=== PATIENT | male | born 1950 | race Caucasian/White ===

== ENCOUNTER 2018-07-06 22:32 | Inpatient (IN) | payer MEDICARE, MEDICAID ==
[~2018-07-06] VITALS: Ht 170.2 cm; Wt 61.3 kg
--- OUTSIDE RECORDS SUMMARY | 2018-07-06 22:37 | XMS REPORT ---
Author Author RONDA STAHL Organization [facility] Address [address] [place] [address] Care Team Providers Care Toll Mechanic Name Role Phone RONDA STAHL Unavailable PROBLEMS Type Condition ICD9-CM Code [id number] Code Onset Dates Condition Status SNOMED Code Problem Hypertriglyceridemia E78.1 Active 379421941 Problem COPD exacerbation J44.1 Active 105192986 Problem Diabetes E11.9 Active 01857235 Problem Diabetes type 2, controlled E11.9 Active 14976928 Problem Other chronic pain G89.29 Active 82807761 Problem Panlobular emphysema J43.1 Active 6605993 Problem Uncontrolled type 2 diabetes mellitus with hyperglycemia E11.65 Active 419469341 Problem Type 2 diabetes mellitus without complication, without long-term current use of insulin E11.9 Active 154787103 Problem PTSD (post-traumatic stress disorder) F43.10 Active 29035533 Problem Gastroesophageal reflux disease with esophagitis K21.0 Active 411469129 ALLERGIES No Known Allergies ENCOUNTERS Encounter Location Date Diagnosis [facility] [id number] [place] [address] 23040- 9135 Jul, [facility] [id number] [place] [address] 77968- 3302 Jul, [facility] [id number] [place] [address] 17323- 2096 Jun, [facility] [id number] [place] [address] 64610- 2395 Jun, Uncontrolled type 2 diabetes mellitus without complication, without long-term current use of insulin E11.65 [facility] [id number] [place] [address] 57634- 1536 Jun, PTSD (post-traumatic stress disorder) F43.10 ; Low back pain M54.5 ; Other chronic pain G89.29 ; Gastroesophageal reflux disease with esophagitis K21.0 and Panlobular emphysema J43.1 [place] [address] [address]- 5414 Jun, [place] [address] [place] 20007[address]- 0206 Jun, Other chest pain R07.89 ; Tachycardia R00.0 and Murmur, cardiac R01.1 [place] [address] 80669- 7410 May, Other chest pain R07.89 ; Tachycardia R00.0 and Murmur, cardiac R01.1 [facility]ALK [facility] [place] [address] 54705 -6869 May, [place] [address] 41436- 5797 May, Uncontrolled type 2 diabetes mellitus with hyperglycemia E11.65 and Oral candidiasis B37.0 [place] [address] 90088- 6991 May, COPD exacerbation J44.1 [place] [address] 99303- 0995 May, COPD exacerbation J44.1 [facility]ALK IN [place] [address] 77638 -0219 May, COPD exacerbation J44.1 and Type 2 diabetes mellitus without complication, without long-term current use of insulin E11.9 [facility] [place] [address] 72761 -1742 May, Difficulty breathing R06.89 and Acute bronchitis, unspecified organism J20.9 [place] [address] 49393- 0976 Apr, Uncontrolled type 2 diabetes mellitus without complication, without long-term current use of insulin E11.65 [place] [address] 64306- 4962 Feb, [facility] [address] [address] 9012 Feb, [facility] [address] [address]- 3677 Feb, [facility] [address] [address]- 3135 Jan, [facility] [id number] [place] [address] 83124- 2697 Oct, [facility] [id number] [place] [address] 660373- 4577 Jul, Diabetes type 2, controlled E11.9 [facility] [address] [address]- 8380 Jun, [facility] [id number] [place] [address] 27042- 6044 May, [facility] [address] [address]- 8106 May, Diabetes type 2, controlled E11.9 and Hypertriglyceridemia E78.1 [facility] [address] [address]- 8701 May, [facility] [address] [address]- 8950 Apr, Hypertriglyceridemia 272.1 ; Influenza vaccine administered V04.81 and Diabetes 250.00 [facility] [id number] [address]- 5613 Mar, DM type 2 (diabetes mellitus, type 2) 250.00 ; Essential hypertension, benign 401.1 and Mood disorder 296.90 [facility] [address] 0887 Jan, [facility] [address] 2980 Nov, [facility] [place] [facility] [address] [id number] [place] [address]- 4506 Nov, [facility] [place] [facility] [address] [id number] [place] [address]- 3816 Sep, 2014 [facility] [place] [facility] [address] [id number] [place] [address]- 9832 Sep, 2014 [facility] [place] [facility] [address] [id number] [place] [address]- 4468 Sep, 2014 [facility] [place] [facility] [address] [id number] [place] [address]- 4662 Sep, 2014 [facility] [place] [facility] [address] [id number] [place] [address]- 6660 May, [facility] [place] [facility] [address] [id number] [place] [address]- 2927 May, [facility] [place] [facility] [address] [id number] [place] [address]- 6662 Apr, [facility] [place] [facility] [address] [id number] [place] [address]- 3230 Apr, [facility] [place] [facility] [address] [id number] [place] [address]- 0096 Mar, [facility] [place] [facility] [address] [id number] [place] [address]- 6912 Mar, [facility] [place] [facility] [address] [id number] [place] [address]- 8017 Mar, [facility] [place] [facility] [address] [id number] [place] [address]- 1854 Mar, [facility] [place] [facility] [address] [id number] [place] [address]- 5162 Jan, [facility] [place] [facility] [address] [id number] [place] [address]- 6599 Jan, [facility] [place] [facility] [address] [id number] [address]- 3702 Jan, [facility] [place] [facility] [address] [id number] [place] [address]- 3781 Jan, [facility] [place] [facility] [address] [id number] [place] [address] Jan, [facility] [place] [facility] [address] [id number] [place] [address]- 9155 Jan, [facility] [place] [facility] [address] [id number] [place] [address]- 2637 Oct, [facility] [place] [facility] [address] [id number] [place] [address]- 4244 Oct, [facility] [place] [facility] [address] [id number] [place] [address]- 6285 Sep, [facility] [place] [facility] [address] [id number] [place] [address]- 6171 Sep, [facility] [place] [facility] [address] [id number] [place] [address]- 5261 Jun, [facility] [place] [facility] [address] [id number] [place] [address]- 2657 Jun, [facility] [place] [facility] [address] [id number] [place] [address]- 0633 Mar, [facility] [place] [facility] [address] [id number] [place] [address]- 6503 Feb, [facility] [place] [facility] [address] [id number] [place] [address]- 9385 Feb, [facility] [place] [facility] [address] [id number] [place] [address]- 8736 Nov, [facility] [place] [facility] [address] [id number] [place] [address]- 2774 Aug, [facility] [place] [facility] [address] [id number] [place] [address]- 1582 Aug, [facility] [place] [facility] [address] [id number] [place] [address] 2546 Jul, [facility] [place] [facility] [address] [id number] [place] [address]- 0483 Jul, [facility] [place] [facility] [address] [id number] [place] [address]- 8196 May, [facility] [place] [facility] [address] [id number] [place] [address]- 2743 May, [facility] [place] [facility] [address] [id number] [place] [address]- 8633 May, [facility] [place] [facility] [address] [id number] [place] [address]- 5465 May, [facility] [place] [facility] [address] [id number] [place] [address]- 0084 Apr, [facility] [place] [facility] [address] [id number] [place] [address]- 7856 Feb, [facility] [place] [facility] [address] [id number] [place] [address]- 7213 Feb, [facility] [place] [facility] [address] [id number] [place] [address]- 0279 Jan, [facility] [place] [facility] [address] [facility] [id number] [place] [address]- 4396 Jan, [facility] [place] [facility] [address] [id number] [place] [address]- 0210 Nov, [facility] [place] [facility] [address] [id number] [place] [address]- 4168 Oct, [facility] [place] [facility] [address] [id number] [place] [address]- 6614 Oct, [facility] [place] [facility] [address] [id number] [place] [address]- 3866 Jul, [facility] [place] [facility] [address] [id number] [place] [address]- 6714 May, [facility] [address] [facility] [id number] [address]- 1444 Nov, [facility] [address] [facility] [id number] [address]- 3741 Jun, [facility] [address] [facility] [id number], [place] [address]- 8903 December, [facility] [address] [facility] [id number] [address]- 2141 Jul, IMMUNIZATIONS No Known Immunizations SOCIAL HISTORY Never Assessed REASON FOR VISIT Back pain f/u Pt in for follow up --EVGENY Lemus PLAN OF CARE Activity Details Follow Up 4 Weeks Reason:copd VITAL SIGNS Height 68 in 2018-06-30 Weight 151.0 lbs 2018-06-30 Temperature 97.7 degrees Fahrenheit 2018-06-30 Heart Rate 124 bpm 2018-06-30 Respiratory Rate 20 2018-06-30 Oximetry 97 % 2018-06-30 BMI 22.96 kg/m2 2018-06-30 Blood pressure systolic 156 mmHg 2018-06-30 Blood pressure diastolic 82 mmHg 2018-06-30 MEDICATIONS Medication Instructions Dosage Frequency Start Date End Date Duration Status Caffeine 200 MG Active Incruse Ellipta 62.5 MCG/INH Inhalation Once a day 1 puff 24h Active Aspirin 81 MG Orally Once a day 1 tablet 24h 30 day(s) Active Xanax 0.5 MG Orally Twice a day 1 tablet 12h Jun, Active BD Pen Needle Ultrafine 29G X 12.7MM subcutaneously once daily Inject 24h May, 30 days Active Symbicort 160-4.5 MCG/ACT Inhalation Twice a day 2 puffs 12h May, Nov, 30 days Active Benadryl Allergy 25 MG Orally every 6 hrs 1 tablet as needed 6h Active Oxygen 2 L/NC as directed Jun, Active PredniSONE 20 mg Orally Once a day 2 tablet 24h May, Jun, 30 day(s) Active Levemir FlexTouch 100 UNIT/ML Subcutaneous once daily Inject 20 units 24h May, 30 days Active Paroxetine HCl 20 MG Orally Once a day 1 tablet in the morning 24h Jun, 30 day(s) Active Nicoderm CQ 7 MG/24HR Transdermal Once a day 1 patch to skin 24h Jun, Oct, 30 day(s) Active Spiriva Respimat 2.5 MCG/ACT Inhalation Once a day 2 puffs 24h May, Nov, 30 days Active RESULTS No Results PROCEDURES No Known procedures INSTRUCTIONS MEDICATIONS ADMINISTERED No Known Medications MEDICAL (GENERAL) HISTORY Type Description Date Medical History hypertension Medical History diabetes type 2 Medical History PTSD Medical History IBS Medical History Back pain Surgical History No Surgical history information Hospitalization History rectal and vomitting blood
--- OUTSIDE RECORDS SUMMARY | 2018-07-06 22:37 | XMS REPORT ---
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 Name Role Phone RONDA STAHL Unavailable PROBLEMS Type Condition ICD9-CM Code [id number] Code Onset Dates Condition Status SNOMED Code Problem Hypertriglyceridemia E78.1 Active 019455048 Problem COPD exacerbation J44.1 Active 115679995 Problem Diabetes E11.9 Active 86869556 Problem Diabetes type 2, controlled E11.9 Active 19797905 Problem Other chronic pain G89.29 Active 23930127 Problem Panlobular emphysema J43.1 Active 0245736 Problem Uncontrolled type 2 diabetes mellitus with hyperglycemia E11.65 Active 617240374 Problem Type 2 diabetes mellitus without complication, without long-term current use of insulin E11.9 Active 494851247 Problem PTSD (post-traumatic stress disorder) F43.10 Active 22358981 Problem Gastroesophageal reflux disease with esophagitis K21.0 Active 121784170 ALLERGIES No Information ENCOUNTERS Encounter Location Date Diagnosis [place] [id number] [place] [address] 63234- 4859 Jul, [place] [id number] [place] [address] 09419- 8611 Jul, [place] [address] [address]37- 1817 Jun, Uncontrolled type 2 diabetes mellitus without complication, without long-term current use of insulin E11.65 [place] [address] 40741- 5319 Jun, PTSD (post-traumatic stress disorder) F43.10 ; Low back pain M54.5 ; Other chronic pain G89.29 ; Gastroesophageal reflux disease with esophagitis K21.0 and Panlobular emphysema J43.1 [place] [id number] [place] [address] 97869- 6679 Jun, [facility] [place] [address] [address]19- 1204 Jun, Other chest pain R07.89 ; Tachycardia R00.0 and Murmur, cardiac R01.1 [facility] [place] [id number] [place] [address] 70025- 0040 May, Other chest pain R07.89 ; Tachycardia R00.0 and Murmur, cardiac R01.1 [facility]ALK IN [facility] [id number] [place] [address] 31838 -5905 May, [place] [address] 51520- 6461 May, Uncontrolled type 2 diabetes mellitus with hyperglycemia E11.65 and Oral candidiasis B37.0 [place] [address] 08152- 3882 May, COPD exacerbation J44.1 [place] [id number] [place] [address] 88520- 4766 May, COPD exacerbation J44.1 [facility] IN [facility] [id number] [place] [address] 81717 -1566 May, COPD exacerbation J44.1 and Type 2 diabetes mellitus without complication, without long-term current use of insulin E11.9 [facility] IN [facility] [id number] [place] [address] 82841 -3687 May, Difficulty breathing R06.89 and Acute bronchitis, unspecified organism J20.9 [place] [id number] [place] [address] 86897- 6225 Apr, Uncontrolled type 2 diabetes mellitus without complication, without long-term current use of insulin E11.65 [facility] [place] [id number] [place] [address] 35346- 5660 Feb, [facility] [address] 07501- 8005 Feb, [facility] [address], [place] [address]- 8971 Feb, [facility] [address], [place] [address]- 1035 Jan, [facility] [address], [place] [address]- 2291 Oct, [facility] [place] [id number] [place] [address] 03544- 1476 Jul, Diabetes type 2, controlled E11.9 [facility] [place] [id number] [place] [address] 21062- 7087 Jun, [facility] [id number] [place] [address] 78079- 3914 May, [facility] [place] [id number] [place] [address] 830858- 2969 May, Diabetes type 2, controlled E11.9 and Hypertriglyceridemia E78.1 [facility] [address], [place] [address]- 6892 May, [facility] [id number] [place] [address] 16377- 9596 Apr, Hypertriglyceridemia 272.1 ; Influenza vaccine administered V04.81 and Diabetes 250.00 [facility] [address], [place] [address]- 1154 Mar, DM type 2 (diabetes mellitus, type 2) 250.00 ; Essential hypertension, benign 401.1 and Mood disorder 296.90 [facility] [address] 8366 Jan, [facility] [place] [id number] [place] [address] 658532- 7282 Nov, [facility] [address] 7674 Nov, [facility] [place] [facility] [address] [id number] [place] [address]- 7234 Sep, 2014 [facility] [place] [facility] [address] [id number] [place] [address]- 7606 Sep, 2014 [facility] [place] [facility] [address] [id number] [place] [address]- 0612 Sep, 2014 [facility] [place] [facility] [address] [id number] [place] [address]- 6944 Sep, 2014 [facility] [place] [facility] [address] [id number] [place] [address]- 0413 May, [facility] [place] [facility] [address] [id number] [place] [address]- 6159 May, [facility] [place] [facility] [address] [id number] [place] [address]- 7753 Apr, [facility] [place] [facility] [address] [id number] [place] [address]- 1428 Apr, [facility] [place] [facility] [address] [id number] [place] [address]- 4312 Mar, [facility] [place] [facility] [address] [id number] [place] [address]- 3259 Mar, [facility] [place] [facility] [address] [id number] [place] [address]- 8666 Mar, [facility] [place] [facility] [address] [id number] [place] [address]- 6929 Mar, [facility] [place] [facility] [address] [id number] [place] [address]- 3005 Jan, [facility] [place] [facility] [address] [id number] [place] [address]- 3806 Jan, [facility] [place] [facility] [address] [id number] [place] [address]- 3613 Jan, [facility] [place] [facility] [address] [id number] [place] [address]- 9632 Jan, [facility] [place] [facility] [address] [id number] [place] [address]- 6762 Jan, [facility] [place] [facility] [address] [id number] [place] [address]- 3556 Jan, [facility] [place] [facility] [address] [id number] [place] [address]- 0729 Oct, [facility] [place] [facility] [address] [id number] [place] [address]- 8490 Oct, [facility] [place] [facility] [address] [id number] [place] [address]- 5918 Sep, [facility] [place] [facility] [address] [id number] [place] [address]- 6327 Sep, [facility] [place] [facility] [address] [id number] [place] [address]- 5146 Jun, [facility] [place] [facility] [address] [id number] [place] [address]- 6309 Jun, [facility] [place] [facility] [address] [id number] [place] [address]- 5938 Mar, [facility] [place] [facility] [address] [id number] [place] [address]- 4869 Feb, [facility] [place] [facility] [address] [id number] [place] [address]- 8980 Feb, [facility] [place] [facility] [address] [id number] [place] [address]- 9543 Nov, [facility] [place] [facility] [address] [id number] [place] [address]- 2892 Aug, [facility] [place] [facility] [address] [id number] [place] [address]- 8944 Aug, [facility] [place] [facility] [address] [id number] [place] [address]- 8479 Jul, [facility] [place] [facility] [address] [id number] [place] [address]- 2546 Jul, [facility] [place] [facility] [address] [id number] [place] [address]- 3467 May, [facility] [place] [facility] [address] [id number] [place] [address]- 2546 May, [facility] [place] [facility] [address] [id number] [place] [address] 2546 May, [facility] [place] [facility] [address] [id number] [place] [address]- 2546 May, [facility] [place] [facility] [address] [id number] [place] [address]- 3416 Apr, [facility] [place] [facility] [address] [id number] [place] [address]- 2546 Feb, [facility] [place] [facility] [address] [id number] [place] [address]- 6521 Feb, [facility] [place] [facility] [address] [id number] [place] [address]- 5609 Jan, [facility] [place] [facility] [address] [id number] [place] [address]- 4206 Jan, [facility] [place] [facility] [address] [facility] [id number] [place] [address]- 2313 Nov, [facility] [place] [facility] [address] [id number] [place] [address]- 2086 Oct, [facility] [place] [facility] [address] [id number] [place] [address]- 2541 Oct, [facility] [place] [facility] [address] [id number] [place] [address]- 2546 Jul, [facility] [place] [facility] [address] [id number] [place] [address] May, [facility] [place] [facility] [address] [id number] [place] [address] Nov, [facility] [place] [address] [facility] [id number] [place] [address] Jun, [facility] [place] [address] [facility] [id number], [place] [address] December, [facility] [place] [address] [facility] [id number], [place] [address] Jul, IMMUNIZATIONS No Known Immunizations SOCIAL HISTORY Never Assessed REASON FOR VISIT medications PLAN OF CARE VITAL SIGNS MEDICATIONS Medication Instructions Dosage Frequency Start Date End Date Duration Status Omeprazole 40 mg 1 capsule 24h Active Chlorzoxazone 500 mg Orally 2 times a day 1 tablet 12h Jun,Oct 30 day(s) Active RESULTS No Results PROCEDURES No Known procedures INSTRUCTIONS MEDICATIONS ADMINISTERED No Known Medications MEDICAL (GENERAL) HISTORY Type Description Date Medical History hypertension Medical History diabetes type 2 Medical History PTSD Medical History IBS Medical History Back pain Surgical History No Surgical history information Hospitalization History rectal and vomitting blood
--- OUTSIDE RECORDS SUMMARY | 2018-07-06 22:37 | XMS REPORT ---
Author Author RONDA STAHL Organization [facility] Address [address] [place] [address] Care Team Providers Care Distributor Cleaner Name Role Phone RONDA STAHL Unavailable PROBLEMS Type Condition ICD9-CM Code DRW76-SS Code Onset Dates Condition Status SNOMED Code Problem Hypertriglyceridemia E78.1 Active 985514118 Problem COPD exacerbation J44.1 Active 500100052 Problem Diabetes E11.9 Active 25439258 Problem Diabetes type 2, controlled E11.9 Active 42091871 Problem Other chronic pain G89.29 Active 15551699 Problem Panlobular emphysema J43.1 Active 3642639 Problem Uncontrolled type 2 diabetes mellitus with hyperglycemia E11.65 Active 347492579 Problem Type 2 diabetes mellitus without complication, without long-term current use of insulin E11.9 Active 338317003 Problem PTSD (post-traumatic stress disorder) F43.10 Active 80430682 Problem Gastroesophageal reflux disease with esophagitis K21.0 Active 365491654 ALLERGIES No Information ENCOUNTERS Encounter Location Date Diagnosis [place] [id number] [place] [address] 19278- 5858 Jul, [place] [id number] [place] [address] 08226- 5832 Jul, [place] [address] [address]18- 5549 Jun, Uncontrolled type 2 diabetes mellitus without complication, without long-term current use of insulin E11.65 [place] [address] 46911- 4380 Jun, PTSD (post-traumatic stress disorder) F43.10 ; Low back pain M54.5 ; Other chronic pain G89.29 ; Gastroesophageal reflux disease with esophagitis K21.0 and Panlobular emphysema J43.1 [place] [id number] [place] [address] 80305- 1883 Jun, [facility] [address] [address]- 5320 Jun, Other chest pain R07.89 ; Tachycardia R00.0 and Murmur, cardiac R01.1 [facility] [id number] [place] [address] 44628- 1322 May, Other chest pain R07.89 ; Tachycardia R00.0 and Murmur, cardiac R01.1 [facility] [id number] [place] [address] 02128 -0704 May, [place] [address] 18711- 9102 May, Uncontrolled type 2 diabetes mellitus with hyperglycemia E11.65 and Oral candidiasis B37.0 [place] [address] 70379- 4731 May, COPD exacerbation J44.1 [place] [id number] [place] [address] 37116- 1776 May, COPD exacerbation J44.1 [facility] [id number] [place] [address] 20654 -7830 May, COPD exacerbation J44.1 and Type 2 diabetes mellitus without complication, without long-term current use of insulin E11.9 [facility] [id number] [place] [address] 77366 -4825 May, Difficulty breathing R06.89 and Acute bronchitis, unspecified organism J20.9 [place] [id number] [place] [address] 25314- 7200 Apr, Uncontrolled type 2 diabetes mellitus without complication, without long-term current use of insulin E11.65 [facility] [id number] [place] [address] 39079- 9115 Feb, [facility] [address] 02687- 3614 Feb, [facility] [address] [address] 4188 Feb, [facility] [address] [address]- 8186 Jan, [facility] [address] [address]- 4503 Oct, [facility] [id number] [place] [address] 88730- 4219 Jul, Diabetes type 2, controlled E11.9 [facility] [id number] [place] [address] 99877- 5413 Jun, [facility] [id number] [place] [address] 01342- 0452 May, [facility] [id number] [place] [address] 008438- 0214 May, Diabetes type 2, controlled E11.9 and Hypertriglyceridemia E78.1 [facility] [address], [place] [address]- 4820 May, [facility] [id number] [place] [address] 58198- 3567 Apr, Hypertriglyceridemia 272.1 ; Influenza vaccine administered V04.81 and Diabetes 250.00 [facility] [address] [address]- 7253 Mar, DM type 2 (diabetes mellitus, type 2) 250.00 ; Essential hypertension, benign 401.1 and Mood disorder 296.90 [facility] [address] 2385 Jan, [facility] [id number] [place] [address] 489405- 4452 Nov, [facility] [address] 3868 Nov, [facility] [place] [facility] [address] [id number] [place] [address]- 4122 Sep, 2014 [facility] [place] [facility] [address] [id number] [place] [address]- 5842 Sep, 2014 [facility] [place] [facility] [address] [id number] [place] [address]- 3358 Sep, 2014 [facility] [place] [facility] [address] [id number] [place] [address]- 1679 Sep, 2014 [facility] [place] [facility] [address] [id number] [place] [address]- 4010 May, [facility] [place] [facility] [address] [id number] [place] [address]- 4793 May, [facility] [place] [facility] [address] [id number] [place] [address]- 8496 Apr, [facility] [place] [facility] [address] [id number] [place] [address]- 8728 Apr, [facility] [place] [facility] [address] [id number] [place] [address]- 1908 Mar, [facility] [place] [facility] [address] [id number] [place] [address]- 4695 Mar, [facility] [place] [facility] [address] [id number] [place] [address]- 7282 Mar, [facility] [place] [facility] [address] [id number] [place] [address]- 3940 Mar, [facility] [place] [facility] [address] [id number] [place] [address]- 3791 Jan, [facility] [place] [facility] [address] [id number] [place] [address]- 9928 Jan, [facility] [place] [facility] [address] [id number] [place] [address]- 1540 Jan, [facility] [place] [facility] [address] [id number] [place] [address]- 3994 Jan, [facility] [place] [facility] [address] [id number] [place] [address]- 3320 Jan, [facility] [place] [facility] [address] [id number] [place] [address]- 0329 Jan, [facility] [place] [facility] [address] [id number] [place] [address]- 6947 Oct, [facility] [place] [facility] [address] [id number] [place] [address]- 6424 Oct, [facility] [place] [facility] [address] [id number] [place] [address]- 9183 Sep, [facility] [place] [facility] [address] [id number] [place] [address]- 3619 Sep, [facility] [place] [facility] [address] [id number] [place] [address]- 6398 Jun, [facility] [place] [facility] [address] [id number] [place] [address]- 1217 Jun, [facility] [place] [facility] [address] [id number] [place] [address]- 6684 Mar, [facility] [place] [facility] [address] [id number] [place] [address]- 7964 Feb, [facility] [place] [facility] [address] [id number] [place] [address]- 7759 Feb, [facility] [place] [facility] [address] [id number] [place] [address]- 0559 Nov, [facility] [place] [facility] [address] [id number] [place] [address]- 3556 Aug, [facility] [place] [facility] [address] [id number] [place] [address]- 7661 Aug, [facility] [place] [facility] [address] [id number] [place] [address]- 8419 Jul, [facility] [place] [facility] [address] [id number] [place] [address]- 2546 Jul, [facility] [place] [facility] [address] [id number] [place] [address]- 0321 May, [facility] [place] [facility] [address] [id number] [place] [address]- 2546 May, [facility] [place] [facility] [address] [id number] [place] [address] 2546 May, [facility] [place] [facility] [address] [id number] [place] [address]- 2546 May, [facility] [place] [facility] [address] [id number] [place] [address]- 6316 Apr, [facility] [place] [facility] [address] [id number] [place] [address]- 2546 Feb, [facility] [place] [facility] [address] [id number] [place] [address]- 6041 Feb, [facility] [place] [facility] [address] [id number] [place] [address]- 8618 Jan, [facility] [place] [facility] [address] [id number] [place] [address]- 9046 Jan, [facility] [place] [facility] [address] [facility] [id number] [place] [address]- 6939 Nov, [facility] [place] [facility] [address] [id number] [place] [address]- 7636 Oct, [facility] [place] [facility] [address] [id number] [place] [address]- 2548 Oct, [facility] [place] [facility] [address] [id number] [place] [address]- 2546 Jul, [facility] [place] [facility] [address] [id number] [place] [address]- 2546 May, [facility] [place] [facility] [address] [id number] [place] [address]- 2838 Nov, [facility] [address] [facility] [id number] [place] [address]- 2201 Jun, [facility] [address] [facility] [id number] [address]- 5576 December, [facility] [address] [facility] [id number], [place] [address]- 6161 Jul, IMMUNIZATIONS No Known Immunizations SOCIAL HISTORY Never Assessed REASON FOR VISIT Medication question PLAN OF CARE VITAL SIGNS MEDICATIONS Unknown Medications RESULTS No Results PROCEDURES No Known procedures INSTRUCTIONS MEDICATIONS ADMINISTERED No Known Medications MEDICAL (GENERAL) HISTORY Type Description Date Medical History hypertension Medical History diabetes type 2 Medical History PTSD Medical History IBS Medical History Back pain Surgical History No Surgical history information Hospitalization History rectal and vomitting blood
--- OUTSIDE RECORDS SUMMARY | 2018-07-06 22:38 | XMS REPORT ---
Author Author RONDA GUERRA Organization [facility] Address [address] [place] [address] Care Team Providers Care Patternator Name Role Phone RONDA GUERRA Unavailable PROBLEMS Type Condition ICD9-CM Code INO52-NG Code Onset Dates Condition Status SNOMED Code Problem Uncontrolled type 2 diabetes mellitus with hyperglycemia E11.65 Active 791712109 Problem COPD exacerbation J44.1 Active 385958027 Problem Hypertriglyceridemia E78.1 Active 891697092 Problem Diabetes type 2, controlled E11.9 Active 16730357 Problem Type 2 diabetes mellitus without complication, without long-term current use of insulin E11.9 Active 961458142 Problem Diabetes E11.9 Active 61936039 ALLERGIES No Known Allergies ENCOUNTERS Encounter Location Date Diagnosis [facility] [id number] [place] [address] 33116- 7303 Jun, [facility] [address] 8[address]63- 1463 May, [facility] [id number] [place] [address] 33844 -5410 May, [facility] [id number] [place] [address] 86870- 9042 May, Uncontrolled type 2 diabetes mellitus with hyperglycemia E11.65 and Oral candidiasis B37.0 [facility] [id number] [place] [address] 36913- 6393 May, COPD exacerbation J44.1 [facility] [id number] [place] [address] 85617- 8998 May, COPD exacerbation J44.1 [facility] [id number] [place] [address] 85928 -0048 May, COPD exacerbation J44.1 and Type 2 diabetes mellitus without complication, without long-term current use of insulin E11.9 [facility] [address], [place] [address] -3387 May, Difficulty breathing R06.89 and Acute bronchitis, unspecified organism J20.9 [facility] [address], [place] [address]- 9651 Apr, Uncontrolled type 2 diabetes mellitus without complication, without long-term current use of insulin E11.65 [facility] [id number] [place] [address] 73746- 2467 Feb, [facility] [id number] [place] [address] 67788- 7803 Feb, [facility] [id number] [place] [address] 84166- 8045 Feb, [facility] [id number] [place] [address] 39206- 1898 Jan, [facility] [id number] [place] [address] 81513- 5239 Oct, [facility] [id number] [place] [address] 06093- 9474 Jul, Diabetes type 2, controlled E11.9 [facility] [address], [place] [address]- 6891 Jun, [facility] [id number] [address]- 2131 May, [facility] [address] [place] [address] 52034- 1959 May, Diabetes type 2, controlled E11.9 and Hypertriglyceridemia E78.1 [facility] [address] [place] [address] 37224- 4053 May, [facility] [address], [place] [address]- 8705 Apr, Hypertriglyceridemia 272.1 ; Influenza vaccine administered V04.81 and Diabetes 250.00 [facility] [address], [place] [address]- 2652 Mar, DM type 2 (diabetes mellitus, type 2) 250.00 ; Essential hypertension, benign 401.1 and Mood disorder 296.90 [facility] [address], [place] [address]- 5063 Jan, [facility] [id number] [place] [address] 31621- 8446 Nov, [facility] [id number] [address]- 8122 Nov, [facility] [id number] [place] [address] 49198- 0701 Sep, [facility] [id number] [place] [address] 82016- 5204 Sep, [facility] [id number] [place] [address] 20351- 3659 Sep, [facility] [address], [place] [address]- 6324 Sep, [facility] [address], [place] [address]- 9175 May, [facility] [address], [place] [address]- 4273 May, [facility] [address], [place] [address]- 0464 Apr, [facility] [address], [place] [address]- 1476 Apr, [facility] [id number] [address]- 2148 Mar, [facility] [address], [place] [address]- 8657 Mar, [facility] [id number] [place] [place] [address]- 1059 Mar, [facility] [place] [facility] [address] [id number] [place] [address]- 0967 Mar, [facility] [place] [facility] [address] [id number] [place] [address]- 0012 Jan, [facility] [place] [facility] [address] [id number] [place] [address]- 7712 Jan, [facility] [place] [facility] [address] [id number] [place] [address]- 0408 Jan, [facility] [place] [facility] [address] [id number] [place] [address]- 8075 Jan, [facility] [place] [facility] [address] [id number] [place] [address]- 6875 Jan, [facility] [place] [facility] [address] [id number] [place] [address]- 1289 Jan, [facility] [place] [facility] [address] [id number] [place] [address]- 1737 Oct, [facility] [place] [facility] [address] [id number] [place] [address]- 6768 Oct, [facility] [place] [facility] [address] [id number] [place] [address]- 3507 Sep, [facility] [place] [facility] [address] [id number] [place] [address]- 5747 Sep, [facility] [place] [facility] [address] [id number] [place] [address]- 2774 Jun, [facility] [place] [facility] [address] [id number] [place] [address]- 0107 Jun, [facility] [place] [facility] [address] [id number] [place] [address]- 3155 Mar, [facility] [place] [facility] [address] [id number] [place] [address]- 8143 Feb, [facility] [place] [facility] [address] [id number] [place] [address] 254 Feb, [facility] [place] [facility] [address] [id number] [place] [address]- 4388 Nov, [facility] [place] [facility] [address] [id number] [place] [address] 2549 Aug, [facility] [place] [facility] [address] [id number] [place] [address] 2545 Aug, [facility] [place] [facility] [address] [id number] [place] [address]- 0591 Jul, [facility] [place] [facility] [address] [id number] [place] [address]- 2260 Jul, [facility] [place] [facility] [address] [id number] [place] [address]- 1911 May, [facility] [place] [facility] [address] [id number] [place] [address]- 7383 May, [facility] [place] [facility] [address] [id number] [place] [address]- 8594 May, [facility] [place] [facility] [address] [id number] [place] [address]- 9868 May, [facility] [place] [facility] [address] [id number] [place] [address] 2547 Apr, [facility] [place] [facility] [address] [id number] [place] [address]- 2549 Feb, [facility] [place] [facility] [address] [id number] [place] [address]- 2544 Feb, [facility] [place] [facility] [address] [id number] [place] [address]- 2546 Jan, [facility] [place] [facility] [address] [id number] [place] [address]- 2546 Jan, [facility] [place] [facility] [address] [id number] [address] 2546 Nov, [facility] [address], [place] [address] 2546 Oct, [facility] [address], [place] [address]- 2546 Oct, [facility] [address], [place] [address] 2546 Jul, [facility] [address] [place] [address] 77712 2546 May, [facility] [address] [place] [address] 29644 2546 Nov, [facility] [address] [place] [address] 57695 2546 Jun, [facility] [address], [place] [address] 2546 December, [facility] [id number], [place] [address] 2546 Jul, IMMUNIZATIONS No Known Immunizations SOCIAL HISTORY Never Assessed REASON FOR VISIT difficulty breathing-patient had an asthma attack yesterday and is still having difficulty breathing. The patient has been seen three times this month for the same illness.--EVGENY Anderson, Spoke with Georgia Hay R.N. and Betzy Breen APRN and got the patient an appointment with Thaddeus Guerra his primary provider for @ 6:40pm and Betzy Walker said to make the patient a triage.-- EVGENY Anderson PLAN OF CARE VITAL SIGNS Height 68 in 2018-06-21 Weight 156.8 lbs 2018-06-21 Temperature 98.0 degrees Fahrenheit 2018-06-21 Heart Rate 120 bpm 2018-06-21 Respiratory Rate 24 2018-06-21 Oximetry 93 % 2018-06-21 BMI 23.84 kg/m2 2018-06-21 Blood pressure systolic 174 mmHg 2018-06-21 Blood pressure diastolic 82 mmHg 2018-06-21 MEDICATIONS Medication Instructions Dosage Frequency Start Date End Date Duration Status Caffeine 200 MG Active PredniSONE 20 mg Orally Once a day 2 tablet 24h May, Jun, 30 day(s) Active Benadryl Allergy 25 MG Orally every 6 hrs 1 tablet as needed 6h Active Finasteride 5 mg Orally Once a day 1 tablet 24h May, Aug, 30 day(s) Active Symbicort 160-4.5 MCG/ACT Inhalation Twice a day 2 puffs 12h May, 30 days Active NyQuil Not-Taking Oxymetazoline HCl 0.05 % Nasally Twice a day 2 sprays in each nostril as needed 12h 3 day(s) Not-Taking Cefdinir 300 MG Orally 2 times a day 1 capsule 12h May, 31 May, 2018 10 days Active Levemir FlexTouch 100 UNIT/ML Subcutaneous once daily Inject 10 units 24h May, 30 days Active Spiriva Respimat 2.5 MCG/ACT Inhalation Once a day 2 puffs 24h May, Jun, 30 days Active MetFORMIN HCl ER 500 MG Orally 2 times a day 1 tablet 12h May, 30 day(s) Active Diflucan 100 mg Orally Once a day 1 tablet 24h May, Jun, 14 days Active Proventil HFA 108 (90 Base) MCG/ACT Inhalation every 6 hrs 2 puffs as needed 6h 30 days Not-Taking BD Pen Needle Ultrafine 29G X 12.7MM subcutaneously once daily Inject 24h May, 30 days Active RESULTS No Results PROCEDURES No Known procedures INSTRUCTIONS MEDICATIONS ADMINISTERED No Known Medications MEDICAL (GENERAL) HISTORY Type Description Date Medical History hypertension Medical History diabetes type 2 Medical History PTSD Medical History IBS Medical History Back pain Surgical History No know Surgical history Hospitalization History rectal and vomitting blood
--- OUTSIDE RECORDS SUMMARY | 2018-07-06 22:38 | XMS REPORT ---
Author Author RONDA STAHL Organization [facility] Address [address] [place] [address] Care Team Providers Care Rural Sociologist Name Role Phone RONDA STAHL Unavailable PROBLEMS Type Condition ICD9-CM Code [id number] Code Onset Dates Condition Status SNOMED Code Problem Uncontrolled type 2 diabetes mellitus with hyperglycemia E11.65 Active 204701521 Problem COPD exacerbation J44.1 Active 064367865 Problem Hypertriglyceridemia E78.1 Active 643228008 Problem Diabetes type 2, controlled E11.9 Active 84216980 Problem Type 2 diabetes mellitus without complication, without long-term current use of insulin E11.9 Active 436652643 Problem Diabetes E11.9 Active 24481915 ALLERGIES No Known Allergies ENCOUNTERS Encounter Location Date Diagnosis [facility] [id number] [place] [address] 76613- 2041 Jun, [facility] [id number] [place] [address] 96797- 2836 Jun, Other chest pain R07.89 ; Tachycardia R00.0 and Murmur, cardiac R01.1 [facility] [id number] [place] [address] 94104- 0291 May, Other chest pain R07.89 ; Tachycardia R00.0 and Murmur, cardiac R01.1 [facility] [id number] [place] [address] 94175 -4404 May, [facility] [address] [address]- 7754 May, Uncontrolled type 2 diabetes mellitus with hyperglycemia E11.65 and Oral candidiasis B37.0 [facility] [id number] [place] [address] 19108- 9788 May, COPD exacerbation J44.1 [facility] [id number] [address]- 4879 May, COPD exacerbation J44.1 [facility] [id number] [place] [address] 59225 -6918 May, COPD exacerbation J44.1 and Type 2 diabetes mellitus without complication, without long-term current use of insulin E11.9 [facility] [id number] [place] [address] 10288 -8876 May, Difficulty breathing R06.89 and Acute bronchitis, unspecified organism J20.9 [facility] [id number] [place] [address] 47469- 3637 Apr, Uncontrolled type 2 diabetes mellitus without complication, without long-term current use of insulin E11.65 [facility] [id number] [place] [address] 58473- 4233 Feb, [facility] [id number] [place] [address] 49817- 2537 Feb, [facility] [id number] [place] [address] 55615- 2446 Feb, [facility] [id number] [place] [address] 58190- 6074 Jan, [facility] [id number] [place] [address] 12224- 5313 Oct, [facility] [id number] [place] [address] 15822- 9642 Jul, Diabetes type 2, controlled E11.9 [facility] [id number] [address]- 8034 Jun, [facility] [id number] [place] [address] 35098- 5779 May, [facility] [id number] [place] [address] 35426- 2502 May, Diabetes type 2, controlled E11.9 and Hypertriglyceridemia E78.1 [facility] [id number] [address]- 3946 May, [facility] [id number] [place] [address] 82654- 5540 Apr, Hypertriglyceridemia 272.1 ; Influenza vaccine administered V04.81 and Diabetes 250.00 [facility] [id number] [place] [address] 51152- 8906 Mar, DM type 2 (diabetes mellitus, type 2) 250.00 ; Essential hypertension, benign 401.1 and Mood disorder 296.90 [facility] [id number] [place] [address] 40868- 5271 Jan, [facility] [id number] [place] [address] 86277- 8435 Nov, [facility] [id number] [place] [address] 69006- 7532 Nov, [facility] [id number] [place] [address] 39059- 2399 Sep, [facility] [id number] [place] [address] 57713- 1228 Sep, [facility] [id number] [place] [address] 00257- 0041 Sep, [facility] [id number] [place] [address] 29264- 7506 Sep, [facility] [id number] [place] [address] 68462- 4608 May, [facility] [id number] [place] [address] 595889- 6988 May, [facility] [id number] [place] [address] [id number]- 3571 Apr, [facility] [id number] [place] [address] 161010- 4167 Apr, [facility] [place] [facility] [address] [id number] [place] [address]- 0386 Mar, [facility] [place] [facility] [address] [id number] [place] [address]- 8676 Mar, [facility] [place] [facility] [address] [id number] [place] [address]- 7076 Mar, [facility] [place] [facility] [address] [id number] [place] [address]- 4219 Mar, [facility] [place] [facility] [address] [id number] [place] [address]- 2749 Jan, [facility] [place] [facility] [address] [id number] [place] [address]- 2196 Jan, [facility] [place] [facility] [address] [id number] [place] [address]- 5055 Jan, [facility] [place] [facility] [address] [id number] [place] [address]- 0722 Jan, [facility] [place] [facility] [address] [id number] [place] [address]- 2671 Jan, [facility] [place] [facility] [address] [id number] [place] [address]- 6250 Jan, [facility] [place] [facility] [address] [id number] [place] [address]- 0612 Oct, [facility] [place] [facility] [address] [id number] [place] [address]- 8522 Oct, [facility] [place] [facility] [address] [id number] [place] [address]- 3077 Sep, [facility] [place] [facility] [address] [id number] [place] [address]- 5255 Sep, [facility] [place] [facility] [address] [id number] [place] [address]- 7078 Jun, [facility] [place] [facility] [address] [id number] [address]- 7376 Jun, [facility] [place] [facility] [address] [id number] [place] [address]- 7466 Mar, [facility] [place] [facility] [address] [id number] [place] [address]- 1826 Feb, [facility] [place] [facility] [address] [id number] [place] [address]- 2546 Feb, [facility] [place] [facility] [address] [id number] [place] [address]- 1812 Nov, [facility] [place] [facility] [address] [id number] [place] [address]- 6117 Aug, [facility] [place] [facility] [address] [id number] [place] [address]- 3404 Aug, [facility] [place] [facility] [address] [id number] [place] [address]- 0771 Jul, [facility] [place] [facility] [address] [id number] [place] [address]- 1074 Jul, [facility] [place] [facility] [address] [id number] [place] [address]- 5785 May, [facility] [place] [facility] [address] [id number] [place] [address]- 1627 May, [facility] [place] [facility] [address] [id number] [place] [address]- 1190 May, [facility] [place] [facility] [address] [id number] [place] [address]- 6972 May, [facility] [place] [facility] [address] [id number] [place] [address]- 4073 Apr, [facility] [place] [facility] [address] [id number] [place] [address] 2544 Feb, [facility] [place] [facility] [address] [id number] [place] [address]- 2546 Feb, [facility] [place] [facility] [id number] [address]- 5978 Jan, [facility] [address] [address]- 5119 Jan, [facility] [address] [address]- 6038 Nov, [facility] [address] [address]- 2017 Oct, [facility] [address] [address]- 9164 Oct, [facility] [address] 4301 Jul, [facility] [address] [address]- 8913 May, [facility] [id number] [place] [address] 99913- 9215 Nov, [facility] [address] [address]- 1831 Jun, [facility] [address] [address]- 6031 December, [facility] [id number] [address]- 0270 Jul, IMMUNIZATIONS No Known Immunizations SOCIAL HISTORY Never Assessed REASON FOR VISIT Shortness of breath WALKIN F/U AB Jb PLAN OF CARE VITAL SIGNS Height 68 in 2018-06-23 Weight 151.3 lbs 2018-06-23 Temperature 98.3 degrees Fahrenheit 2018-06-23 Heart Rate 121 bpm 2018-06-23 Respiratory Rate 22 2018-06-23 Oximetry 97 % 2018-06-23 BMI 23.00 kg/m2 2018-06-23 MEDICATIONS Medication Instructions Dosage Frequency Start Date End Date Duration Status Cefdinir 300 MG Orally 2 times a day 1 capsule 12h May, May, 10 days Active Spiriva Respimat 2.5 MCG/ACT Inhalation Once a day 2 puffs 24h May, Jun, 30 days Active Caffeine 200 MG Active PredniSONE 20 mg Orally Once a day 2 tablet 24h May, Jun, 30 day(s) Active Symbicort 160-4.5 MCG/ACT Inhalation Twice a day 2 puffs 12h May, 30 days Active NyQuil Not-Taking Finasteride 5 mg Orally Once a day 1 tablet 24h May, Aug, 30 day(s) Unknown BD Pen Needle Ultrafine 29G X 12.7MM subcutaneously once daily Inject 24h May, 30 days Active MetFORMIN HCl ER 500 MG Orally 2 times a day 1 tablet 12h May, 30 day(s) Active Levemir FlexTouch 100 UNIT/ML Subcutaneous once daily Inject 10 units 24h May, 30 days Active Benadryl Allergy 25 MG Orally every 6 hrs 1 tablet as needed 6h Not-Taking Diflucan 100 mg Orally Once a day 1 tablet 24h May, Jun, 14 days Active Oxymetazoline HCl 0.05 % Nasally Twice a day 2 sprays in each nostril as needed 12h 3 day(s) Not-Taking Proventil HFA 108 (90 Base) MCG/ACT Inhalation every 6 hrs 2 puffs as needed 6h 30 days Not-Taking RESULTS No Results PROCEDURES No Known procedures INSTRUCTIONS MEDICATIONS ADMINISTERED No Known Medications MEDICAL (GENERAL) HISTORY Type Description Date Medical History hypertension Medical History diabetes type 2 Medical History PTSD Medical History IBS Medical History Back pain Surgical History No Surgical history information Hospitalization History rectal and vomitting blood
--- OUTSIDE RECORDS SUMMARY | 2018-07-06 22:38 | XMS REPORT ---
Author Author RONDA STAHL Organization [facility] Address [address] [place] [address] Care Team Providers Care Endorsement Clerk Name Role Phone RONDA STAHL Unavailable PROBLEMS Type Condition ICD9-CM Code PUA42-JA Code Onset Dates Condition Status SNOMED Code Problem Uncontrolled type 2 diabetes mellitus with hyperglycemia E11.65 Active 436184191 Problem COPD exacerbation J44.1 Active 420569338 Problem Hypertriglyceridemia E78.1 Active 160535982 Problem Diabetes type 2, controlled E11.9 Active 36992767 Problem Type 2 diabetes mellitus without complication, without long-term current use of insulin E11.9 Active 723267562 Problem Diabetes E11.9 Active 34301162 ALLERGIES No Information ENCOUNTERS Encounter Location Date Diagnosis [facility] [address] [address]- 5146 Jun, [facility] [address] 54515- 2366 May, Uncontrolled type 2 diabetes mellitus with hyperglycemia E11.65 and Oral candidiasis B37.0 [facility] [id number] [place] [address] 93946- 7220 May, COPD exacerbation J44.1 [facility] [address] 75833- 8181 May, COPD exacerbation J44.1 [facility] [address] 86807 -6021 May, COPD exacerbation J44.1 and Type 2 diabetes mellitus without complication, without long-term current use of insulin E11.9 [facility] [id number] [place] [address] 17460 -3657 May, Difficulty breathing R06.89 and Acute bronchitis, unspecified organism J20.9 [facility] [address] [address]- 4518 Apr, Uncontrolled type 2 diabetes mellitus without complication, without long-term current use of insulin E11.65 [facility] [address] [address]- 3905 Feb, [facility] [address] [address]- 1138 Feb, [facility] [address] [address]- 5971 Feb, [facility] [id number] [place] [address] 04150- 5465 Jan, [facility] [address] [address]- 8422 Oct, [facility] [id number] [place] [address] 82458- 7954 Jul, Diabetes type 2, controlled E11.9 [facility] [address] [address]- 0903 Jun, [facility] [address] [address]- 4902 May, [facility] [address] [address]- 9562 May, Diabetes type 2, controlled E11.9 and Hypertriglyceridemia E78.1 [facility] [address] [address]- 7539 May, [facility] [address] [address]- 2100 Apr, Hypertriglyceridemia 272.1 ; Influenza vaccine administered V04.81 and Diabetes 250.00 [facility] [id number] [address]- 8316 Mar, DM type 2 (diabetes mellitus, type 2) 250.00 ; Essential hypertension, benign 401.1 and Mood disorder 296.90 [facility] [address] [id number] [place] [address]- 5072 Jan, [facility] [place] [facility] [address] [id number] [place] [address]- 2256 14 Nov, 2014 [facility] [place] [facility] [address] [id number] [place] [address]- 6429 Nov, [facility] [place] [facility] [address] [id number] [place] [address]- 3291 Sep, 2014 [facility] [place] [facility] [address] [id number] [place] [address]- 8874 Sep, 2014 [facility] [place] [facility] [address] [id number] [place] [address]- 4753 Sep, 2014 [facility] [place] [facility] [address] [id number] [place] [address]- 4633 Sep, [facility] [place] [facility] [address] [id number] [place] [address]- 0134 May, [facility] [place] [facility] [address] [id number] [place] [address]- 0158 May, [facility] [place] [facility] [address] [facility] [id number] [place] [address]- 4235 Apr, [facility] [place] [facility] [address] [id number] [place] [address]- 7418 Apr, [facility] [place] [facility] [address] [id number] [address]- 9924 Mar, [facility] [place] [facility] [address] [id number] [place] [address]- 8639 Mar, [facility] [place] [facility] [address] [id number] [place] [address]- 7249 Mar, [facility] [place] [facility] [address] [id number] [place] [address]- 4933 Mar, [facility] [place] [facility] [address] [id number] [place] [address]- 6799 Jan, [facility] [place] [facility] [address] [id number] [place] [address]- 8764 Jan, [facility] [place] [facility] [address] [id number] [place] [address]- 1499 Jan, [facility] [place] [facility] [address] [id number] [place] [address]- 5512 Jan, [facility] [place] [facility] [address] [id number] [place] [address]- 9810 Jan, [facility] [place] [facility] [address] [id number] [place] [address]- 1998 Jan, [facility] [place] [facility] [address] [id number] [place] [address]- 2749 Oct, [facility] [place] [facility] [address] [id number] [place] [address]- 5619 Oct, [facility] [place] [facility] [address] [id number] [place] [address]- 0770 Sep, [facility] [place] [facility] [address] [id number] [place] [address]- 4737 Sep, [facility] [place] [facility] [address] [id number] [place] [address]- 4348 Jun, [facility] [place] [facility] [address] [id number] [place] [address]- 4540 Jun, [facility] [place] [facility] [address] [id number] [place] [address]- 7382 Mar, [facility] [place] [facility] [address] [id number] [place] [address]- 2992 Feb, [facility] [place] [facility] [address] [id number] [place] [address]- 1826 Feb, [facility] [place] [facility] [address] [id number] [place] [address]- 7839 Nov, [facility] [place] [facility] [address] [id number] [place] [address]- 5745 Aug, [facility] [place] [facility] [address] [id number] [place] [address]- 9386 Aug, [facility] [place] [facility] [address] [id number] [place] [address]- 3291 Jul, [facility] [place] [facility] [address] [id number] [place] [address], [place] [address]- 0623 Jul, [facility] [place] [facility] [address] [id number] [place] [address]- 3173 May, [facility] [place] [facility] [address] [id number] [place] [address]- 8063 May, [facility] [address] [id number] [place] [address]- 8791 May, [facility] [place] [facility] [address] [id number] [place] [address]- 3477 May, [facility] [place] [facility] [address] [id number] [place] [address]- 3186 Apr, [facility] [place] [facility] [address] [id number] [place] [address]- 7559 Feb, [facility] [place] [facility] [address] [id number] [place] [address]- 9334 Feb, [facility] [place] [facility] [address] [id number] [place] [address]- 1633 Jan, [facility] [place] [facility] [address] [id number] [place] [address]- 9148 Jan, [facility] [place] [facility] [address] [id number] [place] [address]- 0868 Nov, [facility] [place] [facility] [address] [id number] [place] [address]- 2686 Oct, [facility] [place] [facility] [address] [id number] [address] 2546 Oct, [facility] [address] [facility] [id number] [address] 2546 Jul, [facility] [id number] [address] 2546 May, [facility] [id number] [address] 2546 Nov, [facility] [id number] [address] 2546 Jun, [facility] [address] [facility] [id number] [address]- 4583 December, [facility] [id number] [address]- 2656 Jul, IMMUNIZATIONS No Known Immunizations SOCIAL HISTORY Never Assessed REASON FOR VISIT Prior Authorization Request PLAN OF CARE VITAL SIGNS MEDICATIONS Medication Instructions Dosage Frequency Start Date End Date Duration Status Incruse Ellipta 62.5 MCG/INH Inhalation Once a day 1 puff 24h May, Active RESULTS No Results PROCEDURES No Known procedures INSTRUCTIONS MEDICATIONS ADMINISTERED No Known Medications MEDICAL (GENERAL) HISTORY Type Description Date Medical History hypertension Medical History diabetes type 2 Medical History PTSD Medical History IBS Medical History Back pain Surgical History No Surgical history information Hospitalization History rectal and vomitting blood
--- OUTSIDE RECORDS SUMMARY | 2018-07-06 22:38 | XMS REPORT ---
Author Author RONDA STAHL Organization [facility] Address [address] [place] [address] Care Team Providers Care Granite Polisher Name Role Phone RONDA STAHL Unavailable PROBLEMS Type Condition ICD9-CM Code THJ51-LX Code Onset Dates Condition Status SNOMED Code Problem Uncontrolled type 2 diabetes mellitus with hyperglycemia E11.65 Active 169110544 Problem COPD exacerbation J44.1 Active 632492516 Problem Hypertriglyceridemia E78.1 Active 378066558 Problem Diabetes type 2, controlled E11.9 Active 18214425 Problem Type 2 diabetes mellitus without complication, without long-term current use of insulin E11.9 Active 089520200 Problem Diabetes E11.9 Active 49355150 ALLERGIES No Information ENCOUNTERS Encounter Location Date Diagnosis [facility] [id number] [place] [address] 55895- 4676 Jun, [facility] [id number] [place] [address] 88089- 2438 Jun, Other chest pain R07.89 ; Tachycardia R00.0 and Murmur, cardiac R01.1 [facility] [id number] [place] [address] 59440- 2463 May, Other chest pain R07.89 ; Tachycardia R00.0 and Murmur, cardiac R01.1 [facility] [id number] [place] [address] 09346 -3834 May, [facility] [address] [address]- 5689 May, Uncontrolled type 2 diabetes mellitus with hyperglycemia E11.65 and Oral candidiasis B37.0 [facility] [id number] [place] [address] 97185- 4951 May, COPD exacerbation J44.1 [facility] [id number] [address] 61[address] May, COPD exacerbation J44.1 [facility] WALK IN [facility] [id number] [place] [address] 08186 -0834 May, COPD exacerbation J44.1 and Type 2 diabetes mellitus without complication, without long-term current use of insulin E11.9 [facility] [id number] [place] [address] 93572 -9274 May, Difficulty breathing R06.89 and Acute bronchitis, unspecified organism J20.9 [facility] [id number] [place] [address] 56047- 4184 Apr, Uncontrolled type 2 diabetes mellitus without complication, without long-term current use of insulin E11.65 [facility] [id number] [place] [address] 72894- 9723 Feb, [facility] [id number] [place] [address] 21835- 7302 Feb, [facility] [id number] [place] [address] 40830- 1800 Feb, [facility] [id number] [place] [address] 54097- 7661 Jan, [facility] [id number] [place] [address] 62385- 5673 Oct, [facility] [id number] [place] [address] 23904- 8673 Jul, Diabetes type 2, controlled E11.9 [facility] [id number] [address] 3972 Jun, [facility] [id number] [place] [address] 49972- 5226 May, [facility] [address] [place] [address] 30983- 1050 May, Diabetes type 2, controlled E11.9 and Hypertriglyceridemia E78.1 [facility] [id number] [address]- 7951 May, [facility] [id number] [place] [address] 13178- 2841 Apr, Hypertriglyceridemia 272.1 ; Influenza vaccine administered V04.81 and Diabetes 250.00 [facility] [id number] [place] [address] 295456- 4753 Mar, DM type 2 (diabetes mellitus, type 2) 250.00 ; Essential hypertension, benign 401.1 and Mood disorder 296.90 [facility] [id number] [place] [address] 25659- 9557 Jan, [facility] [id number] [place] [address] 99639- 5309 Nov, [facility] [id number] [place] [address] 86388- 0847 Nov, [facility] [id number] [place] [address] 27021- 2950 Sep, [facility] [id number] [place] [address] 14975- 1849 Sep, [facility] [id number] [place] [address] 50590- 3847 Sep, [facility] [id number] [place] [address] 60052- 3702 Sep, [facility] [id number] [place] [address] 57583- 3786 May, [facility] [id number] [place] [address] 84408- 6150 May, [facility] [id number] [place] [address] 59065- 0491 Apr, [facility] [address] [place] [address] 46201- 2304 Apr, [facility] [place] [facility] [address] [id number] [place] [address]- 7209 Mar, [facility] [place] [facility] [address] [id number] [place] [address]- 8964 Mar, [facility] [place] [facility] [address] [id number] [place] [address]- 7787 Mar, [facility] [place] [facility] [address] [id number] [place] [address]- 0612 Mar, [facility] [place] [facility] [address] [id number] [place] [address]- 2609 Jan, [facility] [place] [facility] [address] [id number] [place] [address]- 2117 Jan, [facility] [place] [facility] [address] [id number] [place] [address]- 3791 Jan, [facility] [place] [facility] [address] [id number] [place] [address]- 7432 Jan, [facility] [place] [facility] [address] [id number] [place] [address]- 5332 Jan, [facility] [place] [facility] [address] [id number] [place] [address]- 2095 Jan, [facility] [place] [facility] [address] [id number] [place] [address]- 4727 Oct, [facility] [place] [facility] [address] [id number] [place] [address]- 8644 Oct, [facility] [place] [facility] [address] [id number] [place] [address]- 7156 Sep, [facility] [place] [facility] [address] [id number] [place] [address]- 9207 Sep, [facility] [place] [facility] [address] [id number] [place] [address]- 7338 Jun, [facility] [place] [facility] [address] [id number] [address] 2546 Jun, [facility] [place] [facility] [address] [id number] [place] [address] 2549 Mar, [facility] [place] [facility] [address] [id number] [place] [address]- 3846 Feb, [facility] [place] [facility] [address] [id number] [place] [address]- 2546 Feb, [facility] [place] [facility] [address] [id number] [place] [address] 2542 Nov, [facility] [place] [facility] [address] [id number] [place] [address]- 3202 Aug, [facility] [place] [facility] [address] [id number] [place] [address] 2546 Aug, [facility] [place] [facility] [address] [id number] [place] [address]- 7921 Jul, [facility] [place] [facility] [address] [id number] [place] [address]- 0400 Jul, [facility] [place] [facility] [address] [id number] [place] [address]- 8991 May, [facility] [place] [facility] [address] [id number] [place] [address]- 8260 May, [facility] [place] [facility] [address] [id number] [place] [address]- 3198 May, [facility] [place] [facility] [address] [id number] [place] [address] 2543 May, [facility] [place] [facility] [address] [id number] [place] [address] 2543 Apr, [facility] [place] [facility] [address] [id number] [place] [address] 2546 Feb, [facility] [place] [facility] [address] [id number] [place] [address]- 2546 Feb, [facility] [place] [facility] [address] [address]- 2307 Jan, [facility] [address] [address]- 3337 Jan, [facility] [address] [address]- 1935 Nov, [facility] [address] [address]- 2688 Oct, [facility] [address] [address]- 4347 Oct, [facility] [address] [place] [address] 236848- 9290 Jul, [facility] [address] [address]- 4899 May, [facility] [id number] [place] [address] 22237- 9576 Nov, [facility] [address] [address]- 1120 Jun, [facility] [address] [address]- 7550 December, [facility] [id number] [address]- 7702 Jul, IMMUNIZATIONS No Known Immunizations SOCIAL HISTORY Never Assessed REASON FOR VISIT Lab PLAN OF CARE Activity Details Pending Test LIPID PANEL Pending Test CMP Pending Test CBC Pending Test CRP, CARDIAC Pending Test TSH Future/Pending Procedure EKG, TRACING (IN-HOUSE) [id number] VITAL SIGNS MEDICATIONS Unknown Medications RESULTS No Results PROCEDURES Procedure Date Ordered Result Body Site COMPREHEN METABOLIC PANEL Jun 24, 2018 COMPLETE CBC W/AUTO DIFF WBC Jun 24, 2018 VENIPUNCT, ROUTINE* Jun 24, 2018 ASSAY THYROID STIM HORMONE Jun 24, 2018 C-REACTIVE PROTEIN, HS Jun 24, 2018 ELECTROCARDIOGRAM, TRACING Jun 24, 2018 LIPID PANEL Jun 24, 2018 INSTRUCTIONS MEDICATIONS ADMINISTERED No Known Medications MEDICAL (GENERAL) HISTORY Type Description Date Medical History hypertension Medical History diabetes type 2 Medical History PTSD Medical History IBS Medical History Back pain Surgical History No Surgical history information Hospitalization History rectal and vomitting blood
--- OUTSIDE RECORDS SUMMARY | 2018-07-06 22:39 | XMS REPORT ---
Author RONDA Joseph [facility] eClinical[employer] Address Unknown Phone Unavailable Care Team Providers Care Wood Cut Engraver Name Role Phone RONDA STAHL CP Unavailable Allergies, Adverse Reactions, Alerts Substance Reaction Event Type N.K.D.A. Info Not Available Non Drug Allergy Problems Problem Type Condition Code Onset Dates Condition Status Assessment Diabetes type 2, controlled E11.9 Active Problem ZOSTAVAX DX V05.8 Active Problem Periapical abscess without sinus 522.5 Active Problem Diabetes type 2, controlled E11.9 Active Problem Hypertriglyceridemia E78.1 Active Problem Diabetes E11.9 Active Problem Essential hypertension, benign 401.1 Active Problem Need for prophylactic vaccination and inoculation, Influenza V04.81 Active Problem Hypertriglyceridemia 272.1 Active Problem Diabetes 250.00 Active Medications Medication Code System Code Instructions Start Date End Date Status Dosage MetFORMIN HCl ER [facility] 63577104635 500 MG TAKE TWO(2) TABLETS TOGETHER AT THE SAME TIME EVERY DAY Benadryl Allergy [facility] [address]-08 25 MG Orally every 6 hrs 1 tablet as needed Loratadine [facility] [address]-51 10 mg 1 TAB orally once a day Oct 09, 2014 1 tablet by Oral route 1 time per day Amlodipine Besylate [facility] 63565803184 10 MG TAKE 1 TABLET DAILY Naproxen [facility] [address]-52 500 mg January 24, 2014 take 1 tablet ( 500 mg) by oral route 2 times per day with food Lisinopril-Hydrochlorothiazide [facility] 90073824516 20-25 MG TAKE 2 TABLETS IN THE MORNING Omeprazole Magnesium [facility] 6[address]14-55227 20 mg Oct 09, 2014 40 mg 1 tab daily Metoprolol Tartrate [facility] 36126672927 100 MG TAKE (1) TABLET BY MOUTH TWICE A DAY GlipiZIDE [facility] [address]-15 5 MG Orally 2 times a day May 11, 2015 1 tablet Procedures Procedure Coding System Code Date MICROALBUMIN, SEMIQUANT CPT-4 98574 Jul 25, 2015 [facility] VISIT ESTABLISHED PATIENT CPT-4 G0467 Jul 25, 2015 GLYCATED HEMOGLOBIN TEST CPT-4 19816 Jul 25, 2015 Office Visit, Est Pt., Level 3 CPT-4 11921 Jul 25, 2015 Vital Signs Date/Time: Jul 25, 2015 Temperature 98.7 F Weight 181.3 lbs Height 68 in BMI 27.56 Index Blood Pressure Diastolic 86 mmHg Blood Pressure Systolic 124 mmHg Cardiac Monitoring Heart Rate 68 bpm Results No Known Results Summary Purpose eClinicalWorks Submission
--- OUTSIDE RECORDS SUMMARY | 2018-07-06 22:39 | XMS REPORT ---
Author RONDA Joseph Organization [employer] Address Unknown Phone Unavailable Care Team Providers Care Hvac Engineering Technician Name Role Phone RONDA STAHL CP Unavailable Allergies No Known Allergies Problems Problem Type Condition Code Onset Dates Condition Status Problem Periapical abscess without sinus 522.5 Active Problem Hypertriglyceridemia E78.1 Active Problem Hypertriglyceridemia 272.1 Active Problem Diabetes type 2, controlled E11.9 Active Problem Need for prophylactic vaccination and inoculation, Influenza V04.81 Active Problem ZOSTAVAX DX V05.8 Active Problem Diabetes 250.00 Active Problem Essential hypertension, benign 401.1 Active Medications No Known Medications Results No Known Results Summary Purpose [employer]ClinicalWorks Submission
--- OUTSIDE RECORDS SUMMARY | 2018-07-06 22:39 | XMS REPORT ---
Author Author RONDA STAHL Organization [facility] Address [address] [place] [address] Care Team Providers Care Designer Architect Name Role Phone RONDA STAHL Unavailable PROBLEMS Type Condition ICD9-CM Code VTA93-BW Code Onset Dates Condition Status SNOMED Code Problem Uncontrolled type 2 diabetes mellitus with hyperglycemia E11.65 Active 850180232 Problem COPD exacerbation J44.1 Active 660517975 Problem Hypertriglyceridemia E78.1 Active 316555694 Problem Diabetes type 2, controlled E11.9 Active 89495129 Problem Type 2 diabetes mellitus without complication, without long-term current use of insulin E11.9 Active 181064903 Problem Diabetes E11.9 Active 44856429 ALLERGIES No Known Allergies ENCOUNTERS Encounter Location Date Diagnosis [facility] [address] [address]- [address]385 Jun, [facility] [address] [address]- 7767 May, Uncontrolled type 2 diabetes mellitus with hyperglycemia E11.65 and Oral candidiasis B37.0 [facility] [id number] [place] [address] 72251- 2352 May, COPD exacerbation J44.1 [facility] [id number] [place] [address] 16031- 6872 May, COPD exacerbation J44.1 [facility] [address] 77354 -7458 May, COPD exacerbation J44.1 and Type 2 diabetes mellitus without complication, without long-term current use of insulin E11.9 [facility] [id number] [place] [address] 63798 -3078 May, Difficulty breathing R06.89 and Acute bronchitis, unspecified organism J20.9 [facility] [address] [address]- 8465 Apr, Uncontrolled type 2 diabetes mellitus without complication, without long-term current use of insulin E11.65 [facility] [address] [address]- 4745 Feb, [facility] [address] [address]- 9011 Feb, [facility] [address] [address]- 5730 Feb, [facility] [address] [place] [address] 52414- 5718 Jan, [facility] [address], [place] [address]- 8889 Oct, [facility] [address] [place] [address] 13445- 6248 Jul, Diabetes type 2, controlled E11.9 [facility] [address], [place] [address]- 5221 Jun, [facility] [address] [address]- 7985 May, [facility] [address], [place] [address]- 3385 May, Diabetes type 2, controlled E11.9 and Hypertriglyceridemia E78.1 [facility] [address], [place] [address]- 6715 May, [facility] [address] [place] [address]- 5416 Apr, Hypertriglyceridemia 272.1 ; Influenza vaccine administered V04.81 and Diabetes 250.00 [facility] [id number] [address]- 6049 Mar, DM type 2 (diabetes mellitus, type 2) 250.00 ; Essential hypertension, benign 401.1 and Mood disorder 296.90 [facility] [place] [facility] [address] [id number] [place] [address]- 5922 Jan, [facility] [place] [facility] [address] [id number] [place] [address]- 1779 14 Nov, 2014 [facility] [place] [facility] [address] [id number] [place] [address]- 7125 Nov, [facility] [place] [facility] [address] [id number] [place] [address]- 8272 Sep, [facility] [place] [facility] [address] [id number] [place] [address]- 8717 Sep, [facility] [place] [facility] [address] [facility] [id number] [place] [address]- 2564 Sep, [facility] [place] [facility] [address] [facility] [id number] [place] [address]- 4547 Sep, [facility] [place] [facility] [address] [facility] [id number] [place] [address]- 2066 May, [facility] [place] [facility] [address] [facility] [id number] [place] [address]- 7544 May, [facility] [place] [facility] [address] [facility] [id number] [place] [address]- 7158 Apr, [facility] [place] [facility] [address] [facility] [id number], [place] [address]- 2018 Apr, [facility] [place] [facility] [address] [id number], [place] [address]- 7320 Mar, [facility] [place] [facility] [address] [facility] [id number] [place] [address]- 4704 Mar, [facility] [place] [facility] [address] [facility] [id number] [place] [address]- 4518 Mar, [facility] [place] [facility] [address] [facility] [id number] [place] [address]- 8881 Mar, [facility] [place] [facility] [address] [facility] [id number] [place] [address]- 3285 Jan, [facility] [place] [facility] [address] [id number] [place] [address]- 7442 Jan, [facility] [place] [facility] [address] [id number] [place] [address]- 8258 Jan, [facility] [place] [facility] [address] [id number] [place] [address]- 8429 Jan, [facility] [place] [facility] [address] [id number] [place] [address]- 7429 Jan, [facility] [place] [facility] [address] [id number] [place] [address]- 0828 Jan, [facility] [place] [facility] [address] [id number] [place] [address]- 0374 Oct, [facility] [place] [facility] [address] [id number] [place] [address]- 4538 Oct, [facility] [place] [facility] [address] [id number] [place] [address]- 9735 Sep, [facility] [place] [facility] [address] [id number] [place] [address]- 9267 Sep, [facility] [place] [facility] [address] [id number] [place] [address]- 8033 Jun, [facility] [place] [facility] [address] [id number] [place] [address]- 3175 Jun, [facility] [place] [facility] [address] [id number] [place] [address]- 8222 Mar, [facility] [place] [facility] [address] [id number] [place] [address]- 5084 Feb, [facility] [place] [facility] [address] [id number] [place] [address]- 3752 Feb, [facility] [place] [facility] [address] [id number] [place] [address]- 7589 Nov, [facility] [place] [facility] [address] [id number] [place] [address]- 3933 Aug, [facility] [place] [facility] [address] [id number] [place] [address]- 6233 Aug, [facility] [place] [facility] [address] [id number] [place] [address] 2545 Jul, [facility] [place] [facility] [address] [id number] [place] [address]- 0660 Jul, [facility] [place] [facility] [address] [id number] [place] [address]- 1775 May, [facility] [place] [facility] [address] [id number] [place] [address]- 3296 May, [facility] [place] [facility] [address] [id number] [place] [address]- 4202 May, [facility] [place] [facility] [address] [id number] [place] [address]- 4343 May, [facility] [place] [facility] [address] [id number] [place] [address]- 9729 Apr, [facility] [place] [facility] [address] [id number] [place] [address]- 4336 Feb, [facility] [place] [facility] [address] [id number] [place] [address]- 2546 Feb, [facility] [place] [facility] [address] [id number] [place] [address]- 1121 Jan, [facility] [place] [facility] [address] [id number] [place] [address]- 2545 Jan, [facility] [place] [facility] [address] [id number] [place] [address]- 8836 Nov, [facility] [place] [facility] [address] [id number] [place] [address]- 2546 Oct, [facility] [place] [facility] [address] [id number] [place] [address]- 3365 Oct, [facility] [address] [facility] [id number] [place] [address]24 Jul, [facility] [address] [facility] [id number], [place] [address]- 1746 May, [facility] [address] [facility] [id number], [place] [address]- 4632 Nov, [facility] [address] [id number], [place] [address]- 0470 Jun, [facility] [address] [id number] 3752 December, [facility] [address] [facility] [id number] [address] Jul, IMMUNIZATIONS No Known Immunizations SOCIAL HISTORY Never Assessed REASON FOR VISIT chest infection, high grade fever, asthma attacks more frequently, diabetes, blood pressure, pt also wants to have leg checked out EVGENY Muhammad PLAN OF CARE VITAL SIGNS Height 68 in 2018-06-14 Weight 158.9 lbs 2018-06-14 Temperature 98.0 degrees Fahrenheit 2018-06-14 Heart Rate 94 bpm 2018-06-14 Respiratory Rate 20 2018-06-14 Oximetry 98 % 2018-06-14 BMI 24.16 kg/m2 2018-06-14 Blood pressure systolic 130 mmHg 2018-06-14 Blood pressure diastolic 82 mmHg 2018-06-14 MEDICATIONS Medication Instructions Dosage Frequency Start Date End Date Duration Status BD Pen Needle Ultrafine 29G X 12.7MM subcutaneously once daily Inject 24h May, 30 days Active Oxymetazoline HCl 0.05 % Nasally Twice a day 2 sprays in each nostril as needed 12h 3 day(s) Not-Taking NyQuil Not-Taking MetFORMIN HCl ER 500 MG Orally 2 times a day 1 tablet 12h May, 30 day(s) Active Finasteride 5 mg Orally Once a day 1 tablet 24h May, Aug, 30 day(s) Active PredniSONE 20 mg Orally Once a day 2 tablet 24h May, Jun, 30 day(s) Active Spiriva Respimat 2.5 MCG/ACT Inhalation Once a day 2 puffs 24h May, Jun, 30 days Active Diflucan 100 mg Orally Once a day 1 tablet 24h May, Jun, 14 days Active Benadryl Allergy 25 MG Orally every 6 hrs 1 tablet as needed 6h Active Proventil HFA 108 (90 Base) MCG/ACT Inhalation every 6 hrs 2 puffs as needed 6h 30 days Not-Taking Symbicort 160-4.5 MCG/ACT Inhalation Twice a day 2 puffs 12h May, 30 days Active Levemir FlexTouch 100 UNIT/ML Subcutaneous once daily Inject 10 units 24h May, 30 days Active Caffeine 200 MG Active Cefdinir 300 MG Orally 2 times a day 1 capsule 12h May, May, 10 days Active RESULTS No Results PROCEDURES No Known procedures INSTRUCTIONS MEDICATIONS ADMINISTERED No Known Medications MEDICAL (GENERAL) HISTORY Type Description Date Medical History hypertension Medical History diabetes type 2 Medical History PTSD Medical History IBS Medical History Back pain Surgical History No Surgical history information Hospitalization History rectal and vomitting blood
--- OUTSIDE RECORDS SUMMARY | 2018-07-06 22:39 | XMS REPORT ---
Author RONDA Joseph Organization [employer] Address Unknown Phone Unavailable Care Team Providers Care Beveller Operator Name Role Phone RONDA STAHL CP Unavailable Allergies No Known Allergies Problems Problem Type Condition Code Onset Dates Condition Status Problem Diabetes 250.00 Active Problem Essential hypertension, benign 401.1 Active Problem Hypertriglyceridemia 272.1 Active Problem Periapical abscess without sinus 522.5 Active Problem Need for prophylactic vaccination and inoculation, Influenza V04.81 Active Problem ZOSTAVAX DX V05.8 Active Medications No Known Medications Results No Known Results Summary Purpose [employer] Submission
--- OUTSIDE RECORDS SUMMARY | 2018-07-06 22:39 | XMS REPORT ---
Author Author RONDA STAHL [facility] Address [address] [place] [address] Care Team Providers Care Economic Development Specialist Name Role Phone RONDA STAHL Unavailable PROBLEMS Type Condition ICD9-CM Code [id number] Code Onset Dates Condition Status SNOMED Code Problem Periapical abscess without sinus 522.5 Active 746429642 Problem Need for prophylactic vaccination and inoculation, Influenza V04.81 Active 075498761 Problem ZOSTAVAX DX V05.8 Active 05489630 Assessment Uncontrolled type 2 diabetes mellitus without complication, without long-term current use of insulin E11.65 Apr, Active 738066063 Problem Diabetes E11.9 Active 51494074 Problem Diabetes type 2, controlled E11.9 Active 73172255 Problem Diabetes 250.00 Active 44391589 Problem Essential hypertension, benign 401.1 Active 7531400 Problem Hypertriglyceridemia E78.1 Active 273556545 Problem Hypertriglyceridemia 272.1 Active 887468806 ALLERGIES Substance Reaction Event Type Date Status N.K.D.A. Unknown Non Drug Allergy Apr, Unknown SOCIAL HISTORY No smoking Hx information available PLAN OF CARE VITAL SIGNS Height 68 in 2016-04-25 Weight 180.0 lbs 2016-04-25 Heart Rate 68 bpm 2016-04-25 Respiratory Rate 18 2016-04-25 BMI 27.37 kg/m2 2016-04-25 Blood pressure systolic 150 mmHg 2016-04-25 Blood pressure diastolic 90 mmHg 2016-04-25 MEDICATIONS Medication Instructions Dosage Frequency Start Date End Date Duration Status MetFORMIN HCl ER 500 MG 1 tablet 12h Active Caffeine 200 MG Active GlipiZIDE 5 mg Orally 2 times a day 1 tablet 12h Apr, 30 day(s ) Active Benadryl Allergy 25 MG Orally every 6 hrs 1 tablet as needed 6h Active Loratadine 10 mg 1 tablet 24h 16 Sep, 2014 Active Lisinopril-Hydrochlorothiazide 20-25 MG 2 tablets 24h Active Amlodipine Besylate 10 mg 1 tablet 24h Active Omeprazole 40 mg 1 capsule 24h Active Metoprolol Tartrate 100 MG 1 tablet 12h Active Naproxen 500 MG 1 tablet 12h Active RESULTS Name Result Date Reference Range A1C (IN HOUSE) 2016-04-25 A1C IN HOUSE 7.9 4.3 - 5.6 % Previous A1c 8.4 Lot [id number] Exp date PROCEDURES Procedure Date Ordered Related Diagnosis Body Site GLYCATED HEMOGLOBIN TEST Apr 25, 2016 [facility] VISIT ESTABLISHED PATIENT Apr 25, 2016 Office Visit, Est Pt., Level 3 Apr 25, 2016 IMMUNIZATIONS No Known Immunizations
--- OUTSIDE RECORDS SUMMARY | 2018-07-06 22:39 | XMS REPORT ---
Author Author SANJU MCPHERSON [facility] Address [address] [place] [address] Care Team Providers Care Server Administrator Name Role Phone SANJU MCPHERSON Unavailable PROBLEMS Type Condition ICD9-CM Code [id number] Code Onset Dates Condition Status SNOMED Code Problem Uncontrolled type 2 diabetes mellitus with hyperglycemia E11.65 Active 553695209 Problem COPD exacerbation J44.1 Active 467391842 Problem Hypertriglyceridemia E78.1 Active 306223716 Problem Diabetes type 2, controlled E11.9 Active 65527615 Problem Type 2 diabetes mellitus without complication, without long-term current use of insulin E11.9 Active 055707573 Problem Diabetes E11.9 Active 13115506 ALLERGIES No Known Allergies ENCOUNTERS Encounter Location Date Diagnosis [facility] [address] [address] Jun, [facility] [address] [address] May, Uncontrolled type 2 diabetes mellitus with hyperglycemia E11.65 and Oral candidiasis B37.0 [facility] [address] [address] May, COPD exacerbation J44.1 [facility] [address] [address] May, COPD exacerbation J44.1 [facility] [address] [address] May, COPD exacerbation J44.1 and Type 2 diabetes mellitus without complication, without long-term current use of insulin E11.9 [facility] [id number] [place] [address] May, Difficulty breathing R06.89 and Acute bronchitis, unspecified organism J20.9 [facility] [address], [place] [address] Apr, Uncontrolled type 2 diabetes mellitus without complication, without long-term current use of insulin E11.65 [facility] [address] [address] Feb, [facility] [id number] [place] [address] Feb, [facility] [address], [place] [address] Feb, [facility] [id number] [place] [address] Jan, [facility] [id number] [address] Oct, [facility] [id number] [place] [address] Jul, Diabetes type 2, controlled E11.9 [facility] [address] [place] [address] Jun, [facility] [address] [place] [address] May, [facility] [address], [place] [address] May, Diabetes type 2, controlled E11.9 and Hypertriglyceridemia E78.1 [facility] [address], [place] [address] May, [facility] [address] [place] [address] Apr, Hypertriglyceridemia 272.1 ; Influenza vaccine administered V04.81 and Diabetes 250.00 [facility] [address], [place] [address] Mar, DM type 2 (diabetes mellitus, type 2) 250.00 ; Essential hypertension, benign 401.1 and Mood disorder 296.90 [facility] [address] [facility] [id number] [place] [address] Jan, [facility] [address] [facility] [id number] [place] [address] Nov, [facility] [address] [facility] [id number] [place] [address] Nov, [facility] [address] [facility] [id number] [place] [address], [place] [address] Sep, [facility] [address] [facility] [id number] [place] [address] Sep, [facility] [id number] [place] [address], [place] [address] Sep, [facility] [address] [place] [address], [place] [address] Sep, [facility] [id number] [address] May, [facility] [id number] [place] [address] May, [facility] [id number] [place] [address] Apr, [facility] [id number] [place] [address] Apr, [facility] [address] [facility] [id number], [place] [address] Mar, [facility] [address] [facility] [id number] [place] [address] Mar, [facility] [id number] [address] Mar, [facility] [address] [place] [address] Mar, [facility] [place] [facility] [address] [id number] [place] [address] Jan, [facility] [place] [facility] [address] [id number] [place] [address] Jan, [facility] [place] [facility] [address] [id number] [place] [address] Jan, [facility] [place] [facility] [address] [id number] [place] [address] Jan, [facility] [place] [facility] [address] [id number] [place] [address] Jan, [facility] [place] [facility] [address] [id number] [place] [address] Jan, [facility] [place] [facility] [address] [id number] [place] [address] Oct, [facility] [place] [facility] [address] [id number] [place] [address] Oct, [facility] [place] [facility] [address] [id number] [place] [address] Sep, [facility] [place] [facility] [address] [id number] [place] [address] Sep, [facility] [place] [facility] [address] [id number] [place] [address] Jun, [facility] [place] [facility] [address] [id number] [place] [address] Jun, [facility] [place] [facility] [address] [id number] [place] [address] Mar, [facility] [place] [facility] [address] [id number] [place] [address] Feb, [facility] [place] [facility] [address] [id number] [place] [address] Feb, [facility] [place] [facility] [address] [id number] [place] [address] Nov, [facility] [place] [facility] [address] [id number] [place] [address] Aug, [facility] [place] [facility] [address] [id number] [place] [address] Aug, [facility] [place] [facility] [address] [facility] [id number] [place] [address] Jul, [facility] [place] [facility] [address] [id number] [place] [address] Jul, [facility] [place] [facility] [address] [id number] [place] [address] May, [facility] [place] [facility] [address] [id number] [place] [address] May, [facility] [place] [facility] [address] [id number] [place] [address] May, [facility] [place] [facility] [address] [id number] [place] [address] May, [facility] [place] [facility] [address] [id number] [place] [address] Apr, [facility] [place] [facility] [address] [id number] [place] [address] Feb, [facility] [place] [facility] [address] [id number], [place] [address] Feb, [facility] [place] [facility] [address] [id number], [place] [address] Jan, [facility] [place] [facility] [address] [id number] [place] [address]- [address] Jan, [facility] [place] [facility] [address] [facility] [id number] [place] [address] Nov, [facility] [place] [facility] [address] [id number] [place] [address]- [address] Oct, [facility] [place] [facility] [id number] [address] Oct, [facility] [address] [place] [address] Jul, [facility] [address] [address] May, [facility] [address], [place] [address] Nov, [facility] [address] [address] Jun, [facility] [address] [place] [address] December, [facility] [address], [place] [address] Jul, IMMUNIZATIONS Vaccine Route Administration Date Status DEXAMETHASONE 4MG/ML (PER 1 MG) IM Intramuscular Jun 13, 2018 Administered SOCIAL HISTORY Never Assessed REASON FOR VISIT Shortness of breath/cold symptoms are not improving GERALDOtraUbaldo PLAN OF CARE Activity Details Follow Up 1 Week as scheduled Reason: VITAL SIGNS Height 68 in 2018-06-13 Weight 160.8 lbs 2018-06-13 Temperature 98.5 degrees Fahrenheit 2018-06-13 Heart Rate 112 bpm 2018-06-13 Respiratory Rate 22 2018-06-13 Oximetry 95 % 2018-06-13 BMI 24.45 kg/m2 2018-06-13 Blood pressure systolic 152 mmHg 2018-06-13 Blood pressure diastolic 90 mmHg 2018-06-13 MEDICATIONS Medication Instructions Dosage Frequency Start Date End Date Duration Status Proventil HFA 108 (90 Base) MCG/ACT Inhalation every 6 hrs 2 puffs as needed 6h 30 days Active Symbicort 160-4.5 MCG/ACT Inhalation Twice a day 2 puffs 12h May, 30 days Active MetFORMIN HCl ER 500 MG Orally 2 times a day 1 tablet 12h May, 30 day(s) Active Benadryl Allergy 25 MG Orally every 6 hrs 1 tablet as needed 6h Active Levemir FlexTouch 100 UNIT/ML Subcutaneous once daily Inject 10 units 24h May, 30 days Active Caffeine 200 MG Active Oxymetazoline HCl 0.05 % Nasally Twice a day 2 sprays in each nostril as needed 12h 3 day(s) Active PredniSONE 20 mg Orally Once a day 2 tablet 24h May, Jun, 30 day(s) Active Cefdinir 300 MG Orally 2 times a day 1 capsule 12h May, May, 10 days Active NyQuil Active Spiriva Respimat 2.5 MCG/ACT Inhalation Once a day 2 puffs 24h May, Jun, 30 days Active BD Pen Needle Ultrafine 29G X 12.7MM subcutaneously once daily Inject 24h May, 30 days Active RESULTS Name Result Date Reference Range A1C (IN HOUSE) 2018-06-13 A1C IN HOUSE 41.0 4.3 - 5.6 % Previous A1c 7.9 Lot [id number] Exp date 10/2019 GLUCOSE FINGERSTICK (IN HOUSE) 2018-06-13 GLU FINGERSTICK 407 PC 3.5hr Lot # [id number] Exp date 2019-04-23 PROCEDURES Procedure Date Ordered Result Body Site DEXAMETHASONE 4MG/ML (PER 1 MG) Jun 13, 2018 THER/PROPH/DIAG INJ, SC/IM Jun 13, 2018 GLYCATED HEMOGLOBIN TEST Jun 13, 2018 GLUCOSE BLOOD TEST Jun 13, 2018 [facility] VISIT ESTABLISHED PATIENT Jun 13, 2018 INSTRUCTIONS MEDICATIONS ADMINISTERED No Known Medications MEDICAL (GENERAL) HISTORY Type Description Date Medical History hypertension Medical History diabetes type 2 Medical History PTSD Medical History IBS Medical History Back pain Surgical History No Surgical history information Hospitalization History rectal and vomitting blood
--- OUTSIDE RECORDS SUMMARY | 2018-07-06 22:39 | XMS REPORT ---
Author RONDA Joseph [facility] eClinicalWorks Address Unknown Phone Unavailable Care Team Providers Care Teletypewriter Operator Name Role Phone RONDA STAHL CP Unavailable Allergies, Adverse Reactions, Alerts Substance Reaction Event Type N.K.D.A. Info Not Available Non Drug Allergy Problems Problem Type Condition Code Onset Dates Condition Status Assessment Hypertriglyceridemia E78.1 Active Problem Periapical abscess without sinus 522.5 Active Assessment Diabetes type 2, controlled E11.9 Active Problem Hypertriglyceridemia E78.1 Active Problem Hypertriglyceridemia 272.1 Active Problem Diabetes type 2, controlled E11.9 Active Problem Need for prophylactic vaccination and inoculation, Influenza V04.81 Active Problem ZOSTAVAX DX V05.8 Active Problem Diabetes 250.00 Active Problem Essential hypertension, benign 401.1 Active Medications Medication Code System Code Instructions Start Date End Date Status Dosage Lisinopril-Hydrochlorothiazide [facility] 38684500223 20-25 MG TAKE 2 TABLETS IN THE MORNING Omeprazole Magnesium [facility] [address] 20 mg Oct 09, 2014 40 mg 1 tab daily MetFORMIN HCl ER [facility] 05319320177 500 MG TAKE TWO(2) TABLETS TOGETHER AT THE SAME TIME EVERY DAY Amlodipine Besylate [facility] 92147587097 10 MG TAKE 1 TABLET DAILY Benadryl Allergy [facility] [address]-60 25 MG Orally every 6 hrs 1 tablet as needed Loratadine [facility] [address]-87 10 mg 1 TAB orally once a day Oct 09, 2014 1 tablet by Oral route 1 time per day GlipiZIDE [facility] [address]-87 5 MG Orally 2 times a day May 11, 2015 1 tablet Metoprolol Tartrate [facility] 25530700503 100 MG TAKE (1) TABLET BY MOUTH TWICE A DAY Niacin [facility] [address]-39 500 MG Orally Once a day May 11, 2015 1 tablet Naproxen [facility] [address]-20 500 mg January 24, 2014 take 1 tablet ( 500 mg) by oral route 2 times per day with food Procedures Procedure Coding System Code Date Office Visit, Est Pt., Level 3 CPT-4 89081 Jun 15, 2015 LAB NOT BILLED BY [facility] CPT-4 NOBLL Jun 15, 2015 [facility] VISIT ESTABLISHED PATIENT CPT-4 G0467 Jun 15, 2015 VENIPUNCT, ROUTINE* CPT-4 34821 Jun 15, 2015 Vital Signs Date/Time: Jun 15, 2015 Temperature 97.5 F Weight 179.4 lbs Height 68 in BMI 27.27 Index Blood Pressure Diastolic 86 mmHg Blood Pressure Systolic 130 mmHg Cardiac Monitoring Heart Rate 72 bpm Results Name Result Date Reference Range Unit Abnormality Flag ROUTINE VENIPUNCTURE Summary Purpose eClinicalWorks Submission
--- OUTSIDE RECORDS SUMMARY | 2018-07-06 22:40 | XMS REPORT ---
Author RONDA Joseph Organization [employer] Address Unknown Phone Unavailable Care Team Providers Care Parallel Computing Software Engineer Name Role Phone RONDA STAHL CP Unavailable Allergies No Known Allergies Problems Problem Type Condition Code Onset Dates Condition Status Problem ZOSTAVAX DX V05.8 Active Problem Periapical abscess without sinus 522.5 Active Problem Diabetes type 2, controlled E11.9 Active Problem Hypertriglyceridemia E78.1 Active Problem Diabetes E11.9 Active Problem Essential hypertension, benign 401.1 Active Problem Need for prophylactic vaccination and inoculation, Influenza V04.81 Active Problem Hypertriglyceridemia 272.1 Active Problem Diabetes 250.00 Active Medications No Known Medications Results No Known Results Summary Purpose eClinicalWorks Submission
--- OUTSIDE RECORDS SUMMARY | 2018-07-06 22:40 | XMS REPORT | Continuity of Care Document ---
Author Author [facility] Address Unknown Phone Unavailable Allergies There is no data. Medications There is no data. Problems Date Dx Coded Attending Type Code Diagnosis Diagnosed By 08/03/2008 401.1 HYPERTENSION, BENIGN ESSENTIAL 08/03/2008 401.1 HYPERTENSION, BENIGN ESSENTIAL 08/03/2008 401.1 HYPERTENSION, BENIGN ESSENTIAL 08/03/2008 RONDA STAHL APRN 401.1 HYPERTENSION, BENIGN ESSENTIAL 08/03/2008 401.1 HYPERTENSION, BENIGN ESSENTIAL 08/03/2008 RONDA STAHL APRN 401.1 HYPERTENSION, BENIGN ESSENTIAL 08/03/2008 RONDA STAHL APRN 401.1 HYPERTENSION, BENIGN ESSENTIAL 08/03/2008 RONDA STAHL APRN 401.1 HYPERTENSION, BENIGN ESSENTIAL 08/03/2008 ALBERT ABEL DO 401.1 HYPERTENSION, BENIGN ESSENTIAL 2008 401.9 UNSPECIFIED ESSENTIAL HYPERTENSION 2008 401.9 UNSPECIFIED ESSENTIAL HYPERTENSION 2008 401.9 UNSPECIFIED ESSENTIAL HYPERTENSION 2008 RONDA STAHL APRN 401.9 UNSPECIFIED ESSENTIAL HYPERTENSION 2008 401.9 UNSPECIFIED ESSENTIAL HYPERTENSION 2008 RONDA STAHL APRN 401.9 UNSPECIFIED ESSENTIAL HYPERTENSION 2008 RONDA STAHL APRN 401.9 UNSPECIFIED ESSENTIAL HYPERTENSION 2008 RONDA STAHL APRN 401.9 UNSPECIFIED ESSENTIAL HYPERTENSION 2008 ALBERT ABEL DO 401.9 UNSPECIFIED ESSENTIAL HYPERTENSION 02/16/2009 250.00 DIABETES II CONTROLLED 02/16/2009 250.00 DIABETES II CONTROLLED 02/16/2009 250.00 DIABETES II CONTROLLED 02/16/2009 RONDA STAHL APRN 250.00 DIABETES II CONTROLLED 02/16/2009 250.00 DIABETES II CONTROLLED 02/16/2009 RONDA STAHL APRN 250.00 DIABETES II CONTROLLED 02/16/2009 RONDA STAHL APRN 250.00 DIABETES II CONTROLLED 02/16/2009 RONDA STAHL APRN 250.00 DIABETES II CONTROLLED 02/16/2009 ALBERT ABEL DO 250.00 DIABETES II CONTROLLED 02/26/2009 NODX NO DIAGNOSIS 02/26/2009 NODX NO DIAGNOSIS 02/26/2009 NODX NO DIAGNOSIS 02/26/2009 RONDA STAHL APRN NODX NO DIAGNOSIS 02/26/2009 NODX NO DIAGNOSIS 02/26/2009 RONDA STAHL APRN NODX NO DIAGNOSIS 02/26/2009 RONDA STAHL APRN NODX NO DIAGNOSIS 02/26/2009 RONDA STAHL APRN NODX NO DIAGNOSIS 02/26/2009 ALBERT ABEL DO NODX NO DIAGNOSIS 05/14/2009 477.9 RHINITIS 05/14/2009 477.9 RHINITIS 05/14/2009 477.9 RHINITIS 05/14/2009 RONDA STAHL APRN 477.9 RHINITIS 05/14/2009 477.9 RHINITIS 05/14/2009 RONDA STAHL APRN 477.9 RHINITIS 05/14/2009 RONDA STAHL APRN 477.9 RHINITIS 05/14/2009 RONDA STAHL APRN 477.9 RHINITIS 05/14/2009 ALBERT ABEL DO 477.9 RHINITIS 08/13/2009 465.9 UPPER RESPIRATORY INFECTION 08/13/2009 465.9 UPPER RESPIRATORY INFECTION 08/13/2009 465.9 UPPER RESPIRATORY INFECTION 08/13/2009 RONDA STAHL APRN 465.9 UPPER RESPIRATORY INFECTION 08/13/2009 465.9 UPPER RESPIRATORY INFECTION 08/13/2009 RONDA STAHL APRN 465.9 UPPER RESPIRATORY INFECTION 08/13/2009 RONDA STAHL APRN 465.9 UPPER RESPIRATORY INFECTION 08/13/2009 RONDA STAHL APRN 465.9 UPPER RESPIRATORY INFECTION 08/13/2009 ALBERT ABEL DO 465.9 UPPER RESPIRATORY INFECTION 01/09/2010 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 01/09/2010 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 01/09/2010 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 01/09/2010 RONDA STAHL APRN 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 01/09/2010 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 01/09/2010 RONDA STAHL APRN 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 01/09/2010 RONDA STAHL APRN 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 01/09/2010 RONDA STAHL APRN 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 01/09/2010 PAGE OBRIEN, ALBERT K 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 05/29/2010 535.50 GASTRITIS UNSPEC 05/29/2010 V03.82 PCV7 PCV13 PCV23, STREPTOCOCCUS PNEUMONIAE [PNEUMOCOCCUS] 05/29/2010 535.50 GASTRITIS UNSPEC 05/29/2010 V03.82 PCV7 PCV13 PCV23, STREPTOCOCCUS PNEUMONIAE [PNEUMOCOCCUS] 05/29/2010 535.50 GASTRITIS UNSPEC 05/29/2010 V03.82 PCV7 PCV13 PCV23, STREPTOCOCCUS PNEUMONIAE [PNEUMOCOCCUS] 05/29/2010 RONDA STAHL APRN 535.50 GASTRITIS UNSPEC 05/29/2010 RONDA STAHL APRN V03.82 PCV7 PCV13 PCV23, STREPTOCOCCUS PNEUMONIAE [PNEUMOCOCCUS] 05/29/2010 535.50 GASTRITIS UNSPEC 05/29/2010 V03.82 PCV7 PCV13 PCV23, STREPTOCOCCUS PNEUMONIAE [PNEUMOCOCCUS] 05/29/2010 RONDA STAHL APRN 535.50 GASTRITIS UNSPEC 05/29/2010 RONDA STAHL APRN V03.82 PCV7 PCV13 PCV23, STREPTOCOCCUS PNEUMONIAE [PNEUMOCOCCUS] 05/29/2010 RONDA STAHL APRN 535.50 GASTRITIS UNSPEC 05/29/2010 RONDA STAHL APRN V03.82 PCV7 PCV13 PCV23, STREPTOCOCCUS PNEUMONIAE [PNEUMOCOCCUS] 05/29/2010 RONDA STAHL APRN 535.50 GASTRITIS UNSPEC 05/29/2010 RONDA STAHL APRN V03.82 PCV7 PCV13 PCV23, STREPTOCOCCUS PNEUMONIAE [PNEUMOCOCCUS] 05/29/2010 ALBERT ABEL DO K 535.50 GASTRITIS UNSPEC 05/29/2010 ALBERT ABEL DO K V03.82 PCV7 PCV13 PCV23, STREPTOCOCCUS PNEUMONIAE [PNEUMOCOCCUS] 12/02/2010 724.5 BACK PAIN, GENERAL 12/02/2010 724.5 BACK PAIN, GENERAL 12/02/2010 724.5 BACK PAIN, GENERAL 12/02/2010 RONDA STAHL APRN 724.5 BACK PAIN, GENERAL 12/02/2010 724.5 BACK PAIN, GENERAL 12/02/2010 RONDA STAHL APRN 724.5 BACK PAIN, GENERAL 12/02/2010 RONDA STAHL APRN 724.5 BACK PAIN, GENERAL 12/02/2010 RONDA STAHL APRN 724.5 BACK PAIN, GENERAL 12/02/2010 ALBERT ABEL DO 724.5 BACK PAIN, GENERAL 05/16/2011 V04.81 FLU DX (3 YRS AND ABOVE, IM) 05/16/2011 V04.81 FLU DX (3 YRS AND ABOVE, IM) 05/16/2011 V04.81 FLU DX (3 YRS AND ABOVE, IM) 05/16/2011 RONDA STAHL APRN V04.81 FLU DX (3 YRS AND ABOVE, IM) 05/16/2011 V04.81 FLU DX (3 YRS AND ABOVE, IM) 05/16/2011 RONDA STAHL APRN V04.81 FLU DX (3 YRS AND ABOVE, IM) 05/16/2011 RONDA STAHL APRN V04.81 FLU DX (3 YRS AND ABOVE, IM) 05/16/2011 RONDA STAHL APRN V04.81 FLU DX (3 YRS AND ABOVE, IM) 05/16/2011 ALBERT ABEL DO V04.81 FLU DX (3 YRS AND ABOVE, IM) 06/15/2012 V05.8 ZOSTAVAX DX 06/15/2012 V05.8 ZOSTAVAX DX 06/15/2012 V05.8 ZOSTAVAX DX 06/15/2012 RONDA STAHL APRN V05.8 ZOSTAVAX DX 06/15/2012 V05.8 ZOSTAVAX DX 06/15/2012 RONDA STAHL APRN V05.8 ZOSTAVAX DX 06/15/2012 RONDA STAHL APRN V05.8 ZOSTAVAX DX 06/15/2012 RONDA STAHL APRN V05.8 ZOSTAVAX DX 06/15/2012 ALBERT ABEL DO V05.8 ZOSTAVAX DX 09/21/2012 522.5 PERIAPICAL ABSCESS WITHOUT SINUS 09/21/2012 RONDA STAHL APRN 522.5 PERIAPICAL ABSCESS WITHOUT SINUS 09/21/2012 522.5 PERIAPICAL ABSCESS WITHOUT SINUS 09/21/2012 RONDA STAHL APRN 522.5 PERIAPICAL ABSCESS WITHOUT SINUS 09/21/2012 RONDA STAHL APRN 522.5 PERIAPICAL ABSCESS WITHOUT SINUS 09/21/2012 RONDA STAHL APRN 522.5 PERIAPICAL ABSCESS WITHOUT SINUS 09/21/2012 ALBERT ABEL DO 522.5 PERIAPICAL ABSCESS WITHOUT SINUS 01/30/2014 RONDA STAHL APRN 401.1 HYPERTENSION, BENIGN ESSENTIAL 01/30/2014 RONDA STAHL APRN 401.1 HYPERTENSION, BENIGN ESSENTIAL 01/30/2014 PAGE OBRIEN ALBERT [place] 401.1 HYPERTENSION, BENIGN ESSENTIAL 06/12/2014 PAGE OBRIEN ALBERT [place] V04.81 FLU SHOT Procedures Code Description [place] [address] A1C (IN-HOUSE) 09/21/2012 52714 A1C (IN-HOUSE) 01/30/2014 39928 MICRO ALBUMIN-IN HOUSE 01/30/2014 88662 MICROALBUMIN 01/30/2014 92027 ROUTINE VENIPUNCTURE 02/20/2014 83995 CMP 02/20/2014 25959 LIPID PANEL 02/20/2014 8713870 GFR CALC (RESULT ONLY) 02/20/2014 33483 CBC 02/20/2014 Results Test Result Range TSH - 06/24/18 09:41 TSH 1.62 mIU/L 0.40-4.50 Encounters ACCT No. Visit Date/Time Discharge Status Pt. Type Provider Facility Loc./Unit Complaint [id number] 06/20/2014 16:14:00 06/20/2014 23:59:59 CLS Outpatient ALBERT ABEL DO [id number] 02/20/2014 12:03:00 02/20/2014 23:59:59 CLS Outpatient RONDA STAHL APRN [id number] 01/30/2014 11:52:00 01/30/2014 23:59:59 CLS Outpatient RONDA STAHL APRN [id number] 06/15/2013 00:00:00 06/15/2013 23:59:59 CLS Outpatient RONDA STAHL APRN [id number] 09/21/2012 14:41:00 09/21/2012 23:59:59 CLS Outpatient RONDA STAHL APRN [id number] 09/21/2012 14:41:00 09/21/2012 23:59:59 CLS Outpatient [id number] 06/15/2012 13:27:00 06/15/2012 23:59:59 CLS Outpatient [id number] 06/15/2012 13:27:00 06/15/2012 23:59:59 CLS Outpatient [id number] 04/04/2013 12:41:00 Document Registration [id number] 06/24/2018 09:00:00 Document Registration [id number] 06/24/2018 09:25:00 06/24/2018 23:59:59 CLS Preadmit RONDA STAHL Via [facility] CARD CHEST PAIN,TACHYCARDIA
--- OUTSIDE RECORDS SUMMARY | 2018-07-06 22:40 | XMS REPORT ---
Author RONDA Joseph Organization [employer] Address Unknown Phone Unavailable Care Team Providers Care Wire Spiral Binder Name Role Phone RONDA STAHL CP Unavailable [...] End Date Status Dosage MetFORMIN HCl ER [facility] [id number] 500 MG TAKE TWO(2) TABLETS TOGETHER AT THE SAME TIME EVERY DAY Metoprolol Tartrate [facility] [id number] 100 MG TAKE (1) TABLET BY MOUTH TWICE A DAY Lisinopril-Hydrochlorothiazide [facility] 18877823246 20-25 MG TAKE 2 TABLETS IN THE MORNING Amlodipine Besylate [facility] 80404027012 10 MG TAKE 1 TABLET DAILY Results No Known Results Summary Purpose [employer] Submission
--- OUTSIDE RECORDS SUMMARY | 2018-07-06 22:40 | XMS REPORT ---
Author RONDA Joseph [facility] [employer] Address Unknown Phone Unavailable Care Team Providers Care Chemical Unit Operator Name Role Phone RONDA STAHL CP Unavailable Allergies, Adverse Reactions, Alerts Substance Reaction Event Type N.K.D.A. Info Not Available Non Drug Allergy Problems Problem Type Condition ICD-9 Code Onset Dates Condition Status Assessment Influenza vaccine administered V04.81 Active Assessment Diabetes 250.00 Active Problem Diabetes 250.00 Active Problem Essential hypertension, benign 401.1 Active Problem Hypertriglyceridemia 272.1 Active Problem Periapical abscess without sinus 522.5 Active Assessment Hypertriglyceridemia 272.1 Active Problem Need for prophylactic vaccination and inoculation, Influenza V04.81 Active Problem ZOSTAVAX DX V05.8 Active Medications Medication Code System Code Instructions Start Date End Date Status Dosage Lisinopril-Hydrochlorothiazide [facility] [id number] 20-25 MG TAKE 2 TABLETS IN THE MORNING Metoprolol Tartrate [facility] 36991895771 100 MG TAKE (1) TABLET BY MOUTH TWICE A DAY Omeprazole Magnesium [facility] [address]-99308 20 mg Oct 09, 2014 40 mg 1 tab daily Naproxen [facility] [address]-12 500 mg January 24, 2014 take 1 tablet ( 500 mg) by oral route 2 times per day with food MetFORMIN HCl ER [facility] 90984817617 500 MG TAKE TWO(2) TABLETS TOGETHER AT THE SAME TIME EVERY DAY Loratadine [facility] [address]-09 10 mg 1 TAB orally once a day Oct 09, 2014 1 tablet by Oral route 1 time per day GlipiZIDE [facility] [address]-84 5 MG Orally 2 times a day May 11, 2015 1 tablet Benadryl Allergy [facility] [address]-33 25 MG Orally every 6 hrs 1 tablet as needed Amlodipine Besylate [facility] 67089914870 10 MG TAKE 1 TABLET DAILY Niacin [facility] [address]-28 500 MG Orally Once a day May 11, 2015 1 tablet Procedures Procedure Coding System Code Date [facility] VISIT ESTABLISHED PATIENT CPT-4 G0467 May 11, 2015 Office Visit, Est Pt., Level 3 CPT-4 35017 May 11, 2015 ADMN FLU VAC NO FEE SCHED SAME DAY CPT-4 G0008 May 11, 2015 SINGLE IMMUNIZATION ADMIN CPT-4 80357 May 11, 2015 FLU VAC NO PRSV 4 SHIKHA 3 YRS+ CPT-4 14328 May 11, 2015 Vital Signs Date/Time: May 11, 2015 Temperature 97.6 F Weight 176.1 lbs Height 68 in BMI 26.77 Index Blood Pressure Diastolic 80 mmHg Blood Pressure Systolic 120 mmHg Cardiac Monitoring Heart Rate 78 bpm Results No Known Results Immunizations Vaccine Administration Date FLUARIX QUAD (3 & UP)-2014May 11, 2015 Summary Purpose [employer]Clinical[employer] Submission
[2018-07-06] MEDS ORDERED: inSUlin (REGULAR) HUMAN 1 UNIT/0.01 ML (CHARGE PER UNIT) IV ONE (22:45)
[2018-07-06 22:53] LABS: BASOPHILS % (AUTO) 0 % (0-10); EOSINOPHILS % (AUTO) 0 % (0-10); HEMATOCRIT 23 % (40-54); HEMOGLOBIN 7.2 G/DL (13.3-17.7); LYMPHOCYTES # (AUTO) 0.8 X 10^3 (1.0-4.0); LYMPHOCYTES % (AUTO) 6 % (12-44); MEAN CORPUSCULAR HEMOGLOBIN 30 PG (25-34); MEAN CORPUSCULAR HGB CONC 32 G/DL (32-36); MEAN CORPUSCULAR VOLUME 94 FL (80-99); MEAN PLATELET VOLUME 10.7 FL (7.4-10.4); MONOCYTES # (AUTO) 0.6 X 10^3 (0.0-1.0); MONOCYTES % (AUTO) 5 % (0-12); NEUTROPHILS # (AUTO) 12.1 X 10^3 (1.8-7.8); NEUTROPHILS % (AUTO) 89 % (42-75); PLATELET COUNT 270 10^3/uL (130-400); RED BLOOD COUNT 2.39 10^6/uL (4.35-5.85); RED CELL DISTRIBUTION WIDTH 14.7 % (10.0-14.5); WHITE BLOOD COUNT 13.6 10^3/uL (4.3-11.0)
[2018-07-06] MEDS ORDERED: BUDE10.2 INH (23:06)
[2018-07-06] MEDS ORDERED: INSU100I29 SC (23:06)
[2018-07-06] MEDS ORDERED: PRD20T PO (23:06)
[2018-07-06] MEDS ORDERED: ALPR0.5T7 PO (23:06)
[2018-07-06] MEDS ORDERED: UMEC62.5 INH (23:06)
[2018-07-06] MEDS ORDERED: [UNRECOGNIZED DRUG - CODE] PO (23:06)
[2018-07-06] MEDS ORDERED: METF500T8 PO (23:06)
[2018-07-06] MEDS ORDERED: PARO20TA5 PO (23:06)
[2018-07-06] MEDS ORDERED: FINA5TAB6 PO (23:06)
[2018-07-06] MEDS ORDERED: OMEP40CA36 PO (23:06)
[2018-07-06] MEDS ORDERED: ALBU18HF2 INH (23:06)
[2018-07-06 23:10] LABS: ANISOCYTOSIS SLIGHT; BAND NEUTROPHILS 0 %; BASOPHILS % (MANUAL) 0 %; EOSINOPHILS % (MANUAL) 0 %; LYMPHOCYTES % (MANUAL) 8 %; MONOCYTES % (MANUAL) 1 %; NEUTROPHILS % (MANUAL) 91 %; POLYCHROMASIA SLIGHT; TOXIC GRANULATION/VACUOLAZATIO 1+
[2018-07-06 23:18] LABS: ALBUMIN 2.9 GM/DL (3.2-4.5); BILIRUBIN,TOTAL 0.3 MG/DL (0.1-1.0); CALCIUM 8.2 MG/DL (8.5-10.1); CREATININE SERUM 1.95 MG/DL (0.60-1.30); TOTAL PROTEIN 4.4 GM/DL (6.4-8.2)
[2018-07-06 23:31] LABS: BILIRUBIN,URINE NEGATIVE (NEGATIVE); CLARITY,URINE CLEAR; COLOR,URINE YELLOW; GLUCOSE, URINE (UA) 4+ (NEGATIVE); KETONES,URINE 1+ (NEGATIVE); LEUKOCYTE ESTERASE ,URINE NEGATIVE (NEGATIVE); PH,URINE 7 (5-9); PROTEIN,URINE 1+ (NEGATIVE); UROBILINOGEN,URINE NORMAL (NORMAL)
[2018-07-06 23:37] LABS: PARTIAL THROMBOPLASTIN TIME < 20 SEC (24-35); PROTHROMBIN TIME PATIENT 13.5 SEC (12.2-14.7)
[2018-07-06 23:39] LABS: BACTERIA,URINE TRACE /HPF; NITRITE,URINE NEGATIVE (NEGATIVE); SQUAMOUS EPITHELIAL CELL,UR 0-2 /HPF
[2018-07-06 23:40] LABS: HYALINE CASTS, URINE RARE /LPF
[2018-07-06 23:41] VITALS: BP 91/58
[2018-07-06] MEDS ORDERED: NS IV 500 ML 500 ML ONE (23:46)
[2018-07-06 23:58] VITALS: BP 98/54
[2018-07-07] VITALS (45 sets, daily range): BP systolic 87–150; BP diastolic 41–84
[2018-07-07] MEDS ORDERED: cefTRIAXone FOR IV USE 1,000 MG in NS (IVPB) 50 ML IV ONE (00:45)
[2018-07-07] MEDS ORDERED: inSUlin (REGULAR) HUMAN 1 UNIT/0.01 ML (CHARGE PER UNIT) IV ONE (00:45)
--- NOTE | 2018-07-07 00:56 | ED General ---
General Chief Complaint: Abdominal/GI Problems Stated Complaint: GI BLEED Nursing Triage Note: PT BROUGHT IN BY EMS WITH COMPLAINT OF GI BLEED. EMS STATES WHEN THEY ARRIVED ON SCENE, PT WAS SITTING ON SIDE OF TUB AND THERE WAS SIGNIFICANT AMOUNT OF BLOOD IN TOILET. EMS SAID PTS TEMP READ "LOW" ON THERMOMETER AND BLOOD GLUCOSE READ "HIGH". PT IS COMPLAINING OF DIZZINESS. STATES HE STARTED NEW MUSCLE RELAXER CHLORZOXAZON YESTERDAY. Nursing Sepsis Screen: No Definite Risk Source of Information: Patient, EMS Exam Limitations: No Limitations History of Present Illness Date Seen by Provider: Jul 06, 2018 Time Seen by Provider: 22:34 Initial Comments This 67-year-old gentleman presents to the emergency room via EMS feeling lethargic and with GI bleed that started yesterday. EMS reports there is a significant amount of blood in the stool near him. EMS reported that her thermometer read "low" and their glucometer read "high". Patient reports he has recently been started on insulin treatment for diabetes. He also started a muscle relaxer Clorzoxazone which he believes may have caused his rectal bleeding. Patient reports he has been constipated recently. He denies diarrhea. He reports recently being treated with antibiotics for "lung infection" caused by hayfever. He denies taking any anticoagulation but does take one half of an aspirin daily. He sees Thaddeus Guerra at [facility] for primary care. Patient had marginal blood pressures on arrival. He denies any pain. He has a remote history of prior GI bleed. He reports he was scoped and no etiology was ever found. Allergies and Home Medications Allergies Coded Allergies: No Known Drug Allergies (Unverified , 07/06/18) Patient Home Medication List Home Medication List Reviewed: Yes Review of Systems Review of Systems Constitutional: no symptoms reported, weakness EENTM: other (Dry mucous membranes) Respiratory: no symptoms reported Cardiovascular: no symptoms reported Gastrointestinal: see HPI Genitourinary: no symptoms reported Musculoskeletal: see HPI Skin: no symptoms reported Psychiatric/Neurological: See HPI Hematologic/Lymphatic: No Symptoms Reported Immunological/Allergic: no symptoms reported Past Pogiztr-Zdfrdg-Yqhblw Hx Patient Social History Alcohol Use: Denies Use Recreational Drug Use: No Smoking Status: Current Everyday Smoker Type Used: Cigarettes Recent Foreign Travel: No Contact w/Someone Who Travel: No Recent Infectious Disease Expo: No Recent Hopitalizations: No Immunizations Up To Date Tetanus Booster (TDap): Unknown Seasonal Allergies Seasonal Allergies: Yes Past Medical History Surgeries: No Respiratory: Yes COPD Cardiac: Yes Hypertension Genitourinary: Yes Benign Prostatic Hyperpl Gastrointestinal: Yes Gastrointestinal Bleed, Irritable Bowel Musculoskeletal: No Endocrine: Yes Diabetes, Insulin dep Are Your Blood Sugars Over 250: Yes HEENT: Yes (Are likely dry eyes) Psychosocial: Yes PTSD, Depression Integumentary: No Physical Exam Vital Signs Vital Signs - First Documented 07/06/18 22:34 Temp 95.1 Pulse 91 Resp 23 B/P (MAP) 113/53 (73) Pulse Ox 95 O2 Delivery Room Air Capillary Refill : Less Than 3 Seconds Height, Weight, BMI Height: 5'7.00" Weight: 152lbs. oz. 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 Norm as Tested Skin: Normal Color, Warm/Dry Focused Exam Lactate Level 07/07/18 00:50: Lactic Acid Level 4.07*H 07/07/18 03:10: Lactic Acid Level 3.06*H 07/07/18 05:12: Lactic Acid Level 2.40*H Lactic Acid Level Laboratory Tests Test 07/07/18 05:12 Lactic Acid Level 2.40 MMOL/L (0.50-2.00) *H Progress/Results/Core Measures Suspected Sepsis Recent Fever Within 48 Hours: No Infection Criteria Present: None New/Unexplained Altered Menta: No Sepsis Screen: No Definite Risk SIRS Temperature:95.1 Pulse: 91 Respiratory Rate: 23 Laboratory Tests 07/06/18 22:44: White Blood Count 13.6H 07/07/18 03:10: White Blood Count 14.8H Blood Pressure 113 /53 Mean: 73 07/07/18 00:50: Lactic Acid Level 4.07*H 07/07/18 03:10: Lactic Acid Level 3.06*H 07/07/18 05:12: Lactic Acid Level 2.40*H Laboratory Tests 07/06/18 22:44: Creatinine 1.95H, INR Comment 1.0, Platelet Count 270, Total Bilirubin 0.3 07/07/18 03:10: Creatinine 1.61H, Platelet Count 245, Total Bilirubin 0.8 Results/Orders Lab Results Laboratory Tests Test 07/06/18 22:44 07/06/18 23:25 07/07/18 00:22 07/07/18 00:50 Range/Units White Blood Count 13.6 H 4.3-11.0 10^3/uL Red Blood Count 2.39 L 4.35-5.85 10^6/uL Hemoglobin 7.2 L 13.3-17.7 G/DL Hematocrit 23 L 40-54 % Mean Corpuscular Volume 94 80-99 FL Mean Corpuscular Hemoglobin 30 25-34 PG Mean Corpuscular Hemoglobin Concent 32 32-36 G/DL Red Cell Distribution Width 14.7 H 10.0-14.5 % Platelet Count 270 130-400 10^3/uL Mean Platelet Volume 10.7 H 7.4-10.4 FL Neutrophils (%) (Auto) 89 H 42-75 % Lymphocytes (%) (Auto) 6 L 12-44 % Monocytes (%) (Auto) 5 0-12 % Eosinophils (%) (Auto) 0 0-10 % Basophils (%) (Auto) 0 0-10 % Neutrophils # (Auto) 12.1 H 1.8-7.8 X 10^3 Lymphocytes # (Auto) 0.8 L 1.0-4.0 X 10^3 Monocytes # (Auto) 0.6 0.0-1.0 X 10^3 Eosinophils # (Auto) 0.0 0.0-0.3 10^3/uL Basophils # (Auto) 0.0 0.0-0.1 10^3/uL Neutrophils % (Manual) 91 % Lymphocytes % (Manual) 8 % Monocytes % (Manual) 1 % Eosinophils % (Manual) 0 % Basophils % (Manual) 0 % Band Neutrophils 0 % Toxic Granulation 1+ Polychromasia SLIGHT Anisocytosis SLIGHT Macrocytosis SLIGHT Prothrombin Time 13.5 12.2-14.7 SEC INR Comment 1.0 0.8-1.4 Activated Partial Thromboplast Time < 20 L 24-35 SEC Sodium Level 134 L 135-145 MMOL/L Potassium Level 4.0 3.6-5.0 MMOL/L Chloride Level 91 L 98-107 MMOL/L Carbon Dioxide Level 23 21-32 MMOL/L Anion Gap 20 H 5-14 MMOL/L Blood Urea Nitrogen 61 H 7-18 MG/DL Creatinine 1.95 H 0.60-1.30 MG/DL Estimat Glomerular Filtration Rate 34 BUN/Creatinine Ratio 31 Glucose Level 726 *H 70-105 MG/DL Glucometer > 600 *H > 600 *H 70-110 MG/DL Lactic Acid Level 9.03 *H 4.07 *H 0.50-2.00 MMOL/L Calcium Level 8.2 L 8.5-10.1 MG/DL Corrected Calcium 9.1 8.5-10.1 MG/DL Magnesium Level 2.0 1.8-2.4 MG/DL Total Bilirubin 0.3 0.1-1.0 MG/DL Aspartate Amino Transf (AST/SGOT) 22 5-34 U/L Alanine Aminotransferase (ALT/SGPT) 27 0-55 U/L Alkaline Phosphatase 67 40-136 U/L Total Protein 4.4 L 6.4-8.2 GM/DL Albumin 2.9 L 3.2-4.5 GM/DL Urine Color YELLOW Urine Clarity CLEAR Urine pH 7 5-9 Urine Specific [place] 1.005 L 1.016-1.022 Urine Protein 1+ H NEGATIVE Urine Glucose (UA) 4+ H NEGATIVE Urine Ketones 1+ H NEGATIVE Urine Nitrite NEGATIVE NEGATIVE Urine Bilirubin NEGATIVE NEGATIVE Urine Urobilinogen NORMAL NORMAL MG/DL Urine Leukocyte Esterase NEGATIVE NEGATIVE Urine RBC (Auto) NEGATIVE NEGATIVE Urine RBC NONE /HPF Urine WBC NONE /HPF Urine Squamous Epithelial Cells 0-2 /HPF Urine Crystals NONE /LPF Urine Bacteria TRACE /HPF Urine Casts PRESENT /LPF Urine Hyaline Casts RARE /LPF Urine Mucus NEGATIVE /LPF Urine Culture Indicated NO Test 07/07/18 01:58 07/07/18 02:56 07/07/18 03:10 07/07/18 03:53 Range/Units Glucometer 464 *H 426 *H 357 H 70-110 MG/DL White Blood Count 14.8 H 4.3-11.0 10^3/uL Red Blood Count 2.69 L 4.35-5.85 10^6/uL Hemoglobin 8.0 L 13.3-17.7 G/DL Hematocrit 24 L 40-54 % Mean Corpuscular Volume 90 80-99 FL Mean Corpuscular Hemoglobin 30 25-34 PG Mean Corpuscular Hemoglobin Concent 33 32-36 G/DL Red Cell Distribution Width 15.2 H 10.0-14.5 % Platelet Count 245 130-400 10^3/uL Mean Platelet Volume 10.1 7.4-10.4 FL Neutrophils (%) (Auto) 89 H 42-75 % Lymphocytes (%) (Auto) 8 L 12-44 % Monocytes (%) (Auto) 4 0-12 % Eosinophils (%) (Auto) 0 0-10 % Basophils (%) (Auto) 0 0-10 % Neutrophils # (Auto) 13.1 H 1.8-7.8 X 10^3 Lymphocytes # (Auto) 1.2 1.0-4.0 X 10^3 Monocytes # (Auto) 0.5 0.0-1.0 X 10^3 Eosinophils # (Auto) 0.0 0.0-0.3 10^3/uL Basophils # (Auto) 0.0 0.0-0.1 10^3/uL Sodium Level 139 135-145 MMOL/L Potassium Level 3.2 L 3.6-5.0 MMOL/L Chloride Level 97 L 98-107 MMOL/L Carbon Dioxide Level 29 21-32 MMOL/L Anion Gap 13 5-14 MMOL/L Blood Urea Nitrogen 53 H 7-18 MG/DL Creatinine 1.61 H 0.60-1.30 MG/DL Estimat Glomerular Filtration Rate 43 BUN/Creatinine Ratio 33 Glucose Level 412 *H 70-105 MG/DL Lactic Acid Level 3.06 *H 0.50-2.00 MMOL/L Calcium Level 8.4 L 8.5-10.1 MG/DL Corrected Calcium 9.3 8.5-10.1 MG/DL Phosphorus Level 3.4 2.3-4.7 MG/DL Magnesium Level 2.0 1.8-2.4 MG/DL Total Bilirubin 0.8 0.1-1.0 MG/DL Aspartate Amino Transf (AST/SGOT) 20 5-34 U/L Alanine Aminotransferase (ALT/SGPT) 27 0-55 U/L Alkaline Phosphatase 59 40-136 U/L Total Protein 4.4 L 6.4-8.2 GM/DL Albumin 2.9 L 3.2-4.5 GM/DL Test 07/07/18 05:02 07/07/18 05:12 07/07/18 05:29 07/07/18 06:45 Range/Units Glucometer 233 H 189 H 104 70-110 MG/DL Lactic Acid Level 2.40 *H 0.50-2.00 MMOL/L Test 07/07/18 07:21 Range/Units Glucometer 118 H 70-110 MG/DL My Orders Orders - DERIAN BOLAÑOS MD Cbc With Automated Diff (07/06/18 22:45) Comprehensive Metabolic Panel (07/06/18 22:45) Magnesium (07/06/18 22:45) Protime With Inr (07/06/18 22:45) Partial Thromboplastin Time (07/06/18 22:45) Ua Culture If Indicated (07/06/18 22:45) Saline Lock/Iv-Start (07/06/18 22:45) Insulin (Regular) Human (Humulin R (Per (07/06/18 22:45) Red Cells Leukocytes Reduced (07/06/18 22:48) Type And Screen (07/06/18 22:48) Manual Differential (07/06/18 22:44) Ns Iv 500 Ml (Sodium Chloride 0.9%) (07/06/18 23:46) Blood Culture (07/06/18 23:53) Sputum Culture (07/06/18 23:53) Urine Culture (07/06/18 23:53) Chest 1 View, Ap/Pa Only (07/06/18 23:53) Saline Lock/Iv-Start (07/06/18 23:53) Vital Signs Adult Sepsis Patie Q15M (07/06/18 23:53) Lactic Acid Analyzer (07/06/18 23:53) Accucheck Stat ONCE (07/07/18 00:18) Insulin (Regular) Human (Humulin R (Per (07/07/18 00:45) Ceftriaxone For Iv Use (Rocephin For I (07/07/18 00:45) Medications Given in ED Current Medications Medications Dose Ordered Sig/Maryjo Route Start Time Stop Time Status Last Admin Dose Admin Ceftriaxone Sodium 1000 mg/ Sodium Chloride 50 ml @ 100 mls/hr ONCE ONCE IV 07/07/18 00:45 07/07/18 01:14 DC 07/07/18 00:55 100 MLS/HR Insulin Human Regular 5 unit ONCE ONCE IV 07/06/18 22:45 07/06/18 22:48 DC 07/06/18 23:28 5 UNIT Insulin Human Regular 5 unit ONCE ONCE IV 07/07/18 00:45 07/07/18 00:46 DC 07/07/18 00:55 5 UNIT Sodium Chloride 500 ml @ ud STK-MED ONCE .ROUTE 07/06/18 23:46 07/06/18 23:48 DC 07/06/18 23:50 30 MLS/HR Vital Signs/I&O 07/06/18 07/06/18 07/06/18 07/07/18 22:34 23:41 23:58 00:00 Temp 95.1 97.1 97.5 Pulse 91 97 96 102 Resp B/P (MAP) 113/53 (73) 91/58 98/54 89/54 Pulse Ox 95 98 98 97 O2 Delivery Room Air Room Air Room Air Room Air 07/07/18 07/07/18 07/07/18 07/07/18 00:20 00:35 00:50 01:05 Pulse 96 91 90 92 Resp B/P (MAP) 104/60 106/75 124/57 93/62 Pulse Ox 96 96 97 96 O2 Delivery Room Air Room Air Room Air Room Air 07/07/18 07/07/18 07/07/18 07/07/18 01:20 01:25 01:42 01:45 Temp 97.2 97.1 97.8 Pulse 93 96 96 104 Resp B/P (MAP) 98/45 99/66 99/66 (77) 102/84 (90) Pulse Ox 96 98 97 94 O2 Delivery Room Air Room Air Room Air 07/07/18 07/07/18 07/07/18 07/07/18 02:00 02:00 02:15 02:30 Pulse 96 94 89 Resp B/P (MAP) 98/57 (71) 88/58 (68) 96/52 (67) Pulse Ox 95 94 96 93 O2 Delivery Room Air Room Air Room Air Room Air 07/07/18 07/07/18 07/07/18 07/07/18 02:41 02:45 03:00 03:15 Pulse 102 102 97 97 Resp 16 24 22 B/P (MAP) 91/67 (75) 115/81 (92) 102/57 (72) Pulse Ox 94 96 93 O2 Delivery Room Air Room Air Room Air 07/07/18 07/07/18 07/07/18 07/07/18 03:30 03:45 04:00 04:00 Pulse 97 93 100 Resp 20 13 15 B/P (MAP) 126/64 (84) 87/51 (63) 100/57 (71) Pulse Ox 96 94 94 94 O2 Delivery Room Air Room Air Room Air Room Air 07/07/18 07/07/18 07/07/18 07/07/18 04:15 04:30 04:45 05:00 Pulse 103 99 97 97 Resp 22 14 15 16 B/P (MAP) 150/74 (99) 104/44 (64) 104/58 (73) 125/42 (69) Pulse Ox 95 96 94 O2 Delivery Room Air Room Air Room Air Room Air 07/07/18 07/07/18 07/07/18 07/07/18 05:15 05:30 05:45 06:00 Pulse 97 95 96 103 Resp 18 22 14 21 B/P (MAP) 119/64 (82) 123/84 (97) 88/63 (71) 103/57 (72) Pulse Ox 95 97 93 96 O2 Delivery Room Air Room Air Room Air Room Air 07/07/18 07/07/18 07/07/18 06:15 06:30 06:45 Pulse 98 95 101 Resp 13 15 18 B/P (MAP) 115/55 (75) 103/41 (61) 100/62 (75) Pulse Ox 93 92 93 O2 Delivery Room Air Room Air Room Air Capillary Refill : Less Than 3 Seconds Blood Pressure Mean: 73 Progress Note : Progress Note Patient received the remainder 1 L normal saline bolus started by EMS. Hemoglobin was found to be quite low and 2 units of PRBC were crossmatched. He received one in the ER and one to hold. He demonstrated no active bleeding in the ER. He was severely hyperglycemic. He received 2 doses of insulin 5 units by IV route. Case was discussed with Dr. Moore who agrees with admission. She requests CBC started on an insulin drip. Dr. Acharya was consulted and requested that he stay NPO in preparation for possible procedures. Patient demonstrated leukocytosis with no specific source of infection identified. A dose of Rocephin was given for empiric treatment as a precaution. Patient was adamant that he wished to be assigned a DO NOT RESUSCITATE at the time of admission. Diagnostic Imaging Diagonstic Imaging: Xray Plain Films/CT/US/NM/MRI: chest Comments Chest x-ray reviewed by me and report not yet available. No acute abnormalities were appreciated. Departure Communication (Admissions) Time/Spoke to Admitting Phy: 00:08 Dr. Moore Time/Spoke to Consulting Phy: 00:19 Dr. Acharya Impression Primary Impression: GI bleed Qualified Codes: K92.2 - Gastrointestinal hemorrhage, unspecified Additional Impressions: Severe anemia Renal failure Qualified Codes: N19 - Unspecified kidney failure Hyperglycemia Leukocytosis Qualified Codes: D72.829 - Elevated white blood cell count, unspecified Lower extremity edema Disposition: ADMITTED INPATIENT Condition: Improved Admissions Decision to Admit Reason: Admit from ER (General) Decision to Admit/Date: Jul 06, 2018 Time/Decision to Admit Time: 22:45 Departure-Patient Inst. Referrals: RONDA GUERRA (PCP) Primary Care Physician DERIAN BOLAÑOS MD Jul 07, 2018 00:56
--- OUTSIDE RECORDS SUMMARY | 2018-07-07 01:08 | XMS REPORT | Continuity of Care Document ---
Author Author [facility] Address Unknown Phone Unavailable Allergies There is [...] Procedures Code [place] [address] A1C (IN-HOUSE) 09/21/2012 05963 A1C (IN-HOUSE) 01/30/2014 73825 MICRO ALBUMIN-IN HOUSE 01/30/2014 48595 MICROALBUMIN 01/30/2014 09826 ROUTINE VENIPUNCTURE 02/20/2014 43698 CMP 02/20/2014 76387 LIPID PANEL 02/20/2014 [id number] GFR CALC (RESULT ONLY) 02/20/2014 38403 CBC 02/20/2014 Results Test Result Range TSH - 06/24/18 09:41 TSH 1.62 mIU/L 0.40-4.50 Encounters ACCT No. Visit Date/Time Discharge Status Pt. Type Provider Facility Loc./Unit Complaint [id number] 06/20/2014 16:14:00 06/20/2014 23:59:59 CLS Outpatient ALBERT ABEL DO [id number] 02/20/2014 12:03:00 02/20/2014 23:59:59 CLS Outpatient RONDA STAHL APRN [id number] 01/30/2014 11:52:00 01/30/2014 23:59:59 CLS Outpatient RONDA STAHL APRN [id number] 06/15/2013 00:00:00 06/15/2013 23:59:59 CLS Outpatient RONDA STAHL APRN [id number] 09/21/2012 14:41:00 09/21/2012 23:59:59 CLS Outpatient RONDA STAHL APRN [id number] 09/21/2012 14:41:00 09/21/2012 23:59:59 CLS Outpatient [id number] 06/15/2012 13:27:00 06/15/2012 23:59:59 CLS Outpatient [id number] 06/15/2012 13:27:00 06/15/2012 23:59:59 CLS Outpatient [id number] 04/04/2013 12:41:00 Document Registration [id number] 06/24/2018 09:00:00 Document Registration [id number] 06/24/2018 09:25:00 06/24/2018 23:59:59 CLS Preadmit RONDA STAHL Via [facility] CARD CHEST PAIN,TACHYCARDIA
[2018-07-07] MEDS ORDERED: NS IV 1000 ML 1,000 ML ONE ×2 (02:06→08:56)
[2018-07-07] MEDS ORDERED: NORMAL SALINE 250 ML ONE (02:06)
[2018-07-07] MEDS ORDERED: inSUlin (REGULAR) HUMAN 1 UNIT/0.01 ML (CHARGE PER UNIT) ONE (02:08)
[2018-07-07] MEDS ORDERED: DEXTROSE 50% 50 ML (IMS) SYR IV PRN (02:45)
[2018-07-07] MEDS ORDERED: ONDANSETRON 4 MG/2 ML (SDV) Z0FRAN IV PRN (02:45)
[2018-07-07] MEDS ORDERED: inSUlin (REGULAR) HUMAN 1 UNIT/0.01 ML (CHARGE PER UNIT) IV PRN (02:45)
[2018-07-07] MEDS ORDERED: INSULIN DRIP 250 UNITS/NS 250 ML IV SCH ×2 (02:45)
[2018-07-07 03:40] LABS: BASOPHILS % (AUTO) 0 % (0-10); EOSINOPHILS % (AUTO) 0 % (0-10); HEMATOCRIT 24 % (40-54); LYMPHOCYTES # (AUTO) 1.2 X 10^3 (1.0-4.0); LYMPHOCYTES % (AUTO) 8 % (12-44); MEAN CORPUSCULAR HEMOGLOBIN 30 PG (25-34); MEAN CORPUSCULAR HGB CONC 33 G/DL (32-36); MEAN CORPUSCULAR VOLUME 90 FL (80-99); MEAN PLATELET VOLUME 10.1 FL (7.4-10.4); MONOCYTES # (AUTO) 0.5 X 10^3 (0.0-1.0); MONOCYTES % (AUTO) 4 % (0-12); NEUTROPHILS # (AUTO) 13.1 X 10^3 (1.8-7.8); NEUTROPHILS % (AUTO) 89 % (42-75); PLATELET COUNT 245 10^3/uL (130-400); RED BLOOD COUNT 2.69 10^6/uL (4.35-5.85); RED CELL DISTRIBUTION WIDTH 15.2 % (10.0-14.5); WHITE BLOOD COUNT 14.8 10^3/uL (4.3-11.0)
[2018-07-07 04:02] LABS: ALBUMIN 2.9 GM/DL (3.2-4.5); BILIRUBIN,TOTAL 0.8 MG/DL (0.1-1.0); CALCIUM 8.4 MG/DL (8.5-10.1); CREATININE SERUM 1.61 MG/DL (0.60-1.30); PHOSPHORUS 3.4 MG/DL (2.3-4.7); POTASSIUM 3.2 MMOL/L (3.6-5.0); TOTAL PROTEIN 4.4 GM/DL (6.4-8.2)
[2018-07-07] MEDS: POTASSIUM CL 10MEQ/50ML IVPB 50 ML IV SCH ×5 (04:27→08:37)
[2018-07-07] MEDS: MAGNESIUM 1 GM/100 ML IVPB 100 ML IV SCH (04:31)
[2018-07-07] MEDS: KCL 20 MEQ TAB (K-DUR) PO SCH (04:31)
[2018-07-07] MEDS ORDERED: CATHETER FLUSH 10 ML SYR IV PRN (05:30)
[2018-07-07] MEDS: CATHETER FLUSH 10 ML SYR IV SCH ×3 (06:00→21:38)
--- NOTE | 2018-07-07 07:06 | Diagnostic Imaging Report ---
Clinical indication: Patient with cough and congestion sepsis. Exam: Portable chest x-ray upright view. Comparison: None. Findings: There is mild increased lung markings in both lung bases which may represent atelectasis versus scarring. There is no definite lung infiltrate. There are slightly hyperinflated lungs. Pulmonary vascular and cardiac silhouette is within normal limits. There is no pleural effusion or pneumothorax. There are degenerative spurs involving the thoracic spine. Impression: 1: Suspected mild bibasilar atelectasis versus scarring. 2: Slightly hyperinflated lungs. Otherwise is no definite radiographic evidence of acute cardiopulmonary process. Dictated by: Dictated on workstation # [id number]
[2018-07-07] MEDS ORDERED: inSUlin ASPART (NovoLOG) 1 UNIT/0.01 ML (CHARGE PER UNIT) SC PRN (08:45)
[2018-07-07] MEDS ORDERED: CHLO500T4 PO (09:00)
[2018-07-07] MEDS ORDERED: PANTOPRAZOLE 40 MG (PROTONIX) VIAL IV SCH (09:00)
[2018-07-07] MEDS ORDERED: DIPH25CA79 PO (09:16)
[2018-07-07] MEDS ORDERED: IBUP-30 PO (09:16)
[2018-07-07 12:10] LABS: CALCIUM 8.3 MG/DL (8.5-10.1); CREATININE SERUM 1.37 MG/DL (0.60-1.30); POTASSIUM 3.7 MMOL/L (3.6-5.0)
[2018-07-07] MEDS ORDERED: LIDOCAINE UROJET 2% GEL 10 ML PKG ONE (12:21)
[2018-07-07] MEDS ORDERED: LIDOCAINE UROJET 2% GEL 10 ML PKG TOP ONE (12:30)
[2018-07-07] MEDS: NS IV 1000 ML 1,000 ML IV SCH ×3 (12:51→21:39)
[2018-07-07 13:20] LABS: HEMOGLOBIN 7.2 G/DL (13.3-17.7)
[2018-07-07] MEDS ORDERED: NON-FORMULARY MEDICATION 1 EA EA (Diphenhydramine HCl (Benadryl) 25 MG) PO PRN (13:45)
--- NOTE | 2018-07-07 14:52 | Diagnostic Imaging Report ---
PROCEDURE: MRI lumbar spine. TECHNIQUE: Multiplanar, multisequence MRI of the lumbar spine was performed without contrast. INDICATION: Back pain and bilateral leg weakness. COMPARISON: No prior studies are available for comparison. FINDINGS: Curvature and alignment of the lumbar spine is normal. Vertebral body heights are maintained. No acute compression fracture is detected. No geographic marrow lesion is seen. There is fairly normal height to the lumbar intervertebral discs apart from mild disc space narrowing at L5-S1. Mild desiccation is seen from L3-4 through L5-S1. The conus is unremarkable at the L1 level. T12-L1: No central canal or neural foraminal narrowing is identified. L1-2: Unremarkable. L2-3: Unremarkable. L3-4: Ligamentous thickening is seen. No central canal or neural foraminal narrowing is detected. L4-5: There is ligamentous thickening and mild annular bulging. This does result in mild lateral recess narrowing bilaterally. No significant neural foraminal narrowing is seen. L5-S1: Broad-based disc/osteophyte complex is present, slightly asymmetric to the left. This narrows the lateral recesses bilaterally, greatest on the left. There is moderate left and mild right neural foraminal narrowing. Central canal is patent. Paraspinous tissues are unremarkable. IMPRESSION: Lumbar spondylosis with lateral recess and neural foraminal narrowing described level by level above. No central canal stenosis or evidence of acute compression fracture is seen. Dictated by: Dictated on workstation # [id number]
--- NOTE | 2018-07-07 15:48 | Physical Therapy Evaluation ---
PT Evaluation-General Medical Diagnosis Admission Date Jul 07, 2018 at 01:02 Medical Diagnosis: GI bleed Onset Date: Jul 06, 2018 Therapy Diagnosis Therapy Diagnosis: weakness; abn gait Height/Weight Height (Feet): 5 Height (Inches): 7.00 Weight (Pounds): 155 Weight (Ounces): 0.7 Precautions Precautions/Isolations: Fall Prevention, Standard Precautions, Pressure Ulcer Referral Physician: Oscar Reason for Referral: Evaluation/Treatment Medical History Pertinent Medical History: COPD, DM, HTN, Smoking Additional Medical History PTSD Current History Pt admitted with progressive weakness; rectal bleeding and anemia. DX with GI bleed Reviewed History: Yes Social History Home: Apartment ([place]) Current Living Status: Alone Entry Into Home: Elevator Prior/Core FIM Prior Level of Function Functional [place] Measure 0=Not Assessed/NA 4=Minimal Assistance 1=Total Assistance 5=Supervision or Setup 2=Maximal Assistance 6=Modified [place] 3=Moderate Assistance 7=Complete IndependenceIRFPAI Quality Coding Scale 6 Independent with activity with or without an assistive device 5 Patient requires set up or clean up by helper. Patient completes activity by themselves 4 Supervision or touching assist (CGA). [place] provide cues , steadying assist 3 The helper provides less than half the effort to complete the activity 2 The helper provides more than half the effort to complete the activity 1 Dependent. The helper does all the effort to complete an activity 7 Patient refused to complete or attempt activity 9 The patient did not perform the activity before the current illness or injury 88 Not attempted due to Medical conditions or safety concerns Bed Mobility: 7 Transfers (B,C,W/C) (FIM): 7 Gait: 7 Prior Equipment Used: walking stick PT Evaluation-Current Subjective Pt reports generalized weakness and fatigue. Reports he did not sleep well last night. Also reports he is NPO> Also reports his right foot has been dragging the last few weeks. Pain Numeric Pain Scale: 3 Comment: general Pt/Family Goals his goal is to gain enough strength to return home as before. Objective Patient Orientation: Person, Place, Time, Situation Problem Solving: Fair Attachments: Santiago Catheter ROM/Strength ROM Lower Extremities WNL Strength Lower Extremities grossly 4-/5 except DF right, which is 2/5 Integumentary/Posture Integumentary refer to nursing notes Bowel Incontinence: No Bladder Incontinence: Santiago Cath Posture normal and symmetrical Neuromuscular (Tone, Coordination, Reflexes) Appear to be intact Sensory Vision: Functional Hearing: Functional Hand Dominance: Right Sensation Right Lower Extremit: Intact Sensation Left Lower Extremity: Intact Transfers Functional [place] Measure 0=Not Assessed/NA 4=Minimal Assistance 1=Total Assistance 5=Supervision or Setup 2=Maximal Assistance 6=Modified [place] 3=Moderate Assistance 7=Complete [place] Transfers (B, C, W/C) (FIM): 4 Supine to/from Sit: 4 Sit to/from Stand: 4 CGA with all transfers for safety and skilled cues to sequence and for safety. Gait Mode of Locomotion: Walk Anticipated Mode of Locomotion: Walk Comments/Gait Description Pt sidestepped at EOB only this date with FWW with CGA. Balance Sitting Static: Good Sitting Dynamic: Good Standing Static: Fair Standing Dynamic: Fair Assessment/Needs Pt presents with generalized weakness and impaired functional mobilty. He will benefit from skilled PT for functional strengthening and mobiltiy as well as to address decreased right DF strength and further assess need for AFO> MRI pending which may provide insight to why he is experiencing DF weakness. 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 PT Mcc Goals Time Frame: Jul 14, 2018 Transfers (B,C,W/C) (FIM): 6 Gait (FIM): 6 Gait distance (FIM): 3=150 ft Gait Level of Assist: 6 Gait Assistive Device: FWW PT Plan Problem List Problem List: Activity Tolerance, Functional Strength, Safety, Balance, Gait, Transfer, Bed Mobility Treatment/Plan Treatment Plan: Continue Plan of Care Treatment Plan: Bed Mobility, Education, Functional Activity Michel, Functional Strength, Gait, Safety, Therapeutic Exercise, Transfers Treatment Duration: Jul 14, 2018 Frequency: 6 times per week Estimated Hrs Per Day: .5 hour per day Patient and/or Family Agrees t: Yes Safety Risks/Education Patient Education: Transfer Techniques, Safety Issues Teaching Recipient: Patient Teaching Methods: Demonstration, Discussion Response to Teaching: Reinforcement Needed Time/GCodes Time In: 1500 Time Out: 1525 Total Billed Treatment Time: 25 Total Billed Treatment visit EVM 25 CALIXTO GANNON PT Jul 07, 2018 15:48
--- NOTE | 2018-07-07 15:52 | History & Physicial (CHS) ---
WALIROSEANNELOUISA MEDICAL STUDENT 07/07/18 3:52pm: HPI History of Present Illness: 67 yo white male presented to the ED last night via ambulance for GI bleed x2days, which he attributes to recently starting Clorzoxazone 500mg bid. Pt reports that he saw bright red blood in the toilet and on the floor as he was having a bowel movement last night. Pt states he has been dizzy for two weeks and felt like he was going to pass out last night. Admits to wheelchair use at home due to leg weakness and dragging right foot x2-3 weeks. C/o recent urinary incontinence also. Sons state that he has had no appetite for the past 2-3 weeks , eating only icecream. He reports a hx of GI bleeds in the past, for which he was worked up with an EGD that was WNL. 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 For the last 5-6 mo's, he has been consistently constipated and taking stool softener. Pt admits to taking baking soda prn for acid reflux. Source: patient, family Exam Limitations: no limitations Date seen by provider: Jul 07, 2018 Time Seen by Provider: 09:15 Attending Physician John Moore MD [facility] Center/[facility] Consult Date of Admission Jul 07, 2018 at 01:02 Home Medications Home Medications Reviewed patient Home Medication Reconciliation performed by pharmacy medication reconciliations mechanical sound technician and/or nursing. Patients Allergies have been reviewed. Allergies Coded Allergies: No Known Drug Allergies (Unverified , 07/06/18) [id number]-Ciztxe Hx Patient Social History Marrital Status: single Number of Children: 2 Employed/Student: unemployed Alcohol Use: Occasionally Uses ("2 drinks per year") Recreational Drug Use: No Smoking Status: Current Everyday Smoker (down to 1ppd. Hx of 3 ppd.) Type Used: Cigarettes Recent Foreign Travel: No Contact w/other who traveled: No Recent Hopitalizations: No Recent Infectious Disease Expo: No Physical Abuse Screen: Yes Sexual Abuse: No Immunizations Up To Date Tetanus Booster (TDap): Unknown Date of Influenza Vaccine: May 24, 2018 Past Medical History 1. IBS mixed 2. Back pain 3. COPD 4. DM Type 2 5. HTN 6. PTSD 7. Panic Attacks 8. Kidney Infections bilaterally 9. BPH Review of Systems (CHC) Constitutional: weakness Respiratory: No short of breath Cardiovascular: syncope Gastrointestinal: No abdominal pain; constipation; No diarrhea; heartburn, loss of appetite; No nausea, No vomiting; other (hematochezia) Genitourinary: hesitancy, incontinence Musculoskeletal: back pain, muscle weakness Psychiatric/Neurological: Anxiety, Other (PTSD) Reviewed Test Results Reviewed Test Results Lab Laboratory Tests Test 07/06/18 22:44 07/06/18 23:25 07/07/18 00:22 07/07/18 00:50 Range/Units White Blood Count 13.6 H 4.3-11.0 10^3/uL Red Blood Count 2.39 L 4.35-5.85 10^6/uL Hemoglobin 7.2 L 13.3-17.7 G/DL Hematocrit 23 L 40-54 % Mean Corpuscular Volume 94 80-99 FL Mean Corpuscular Hemoglobin 30 25-34 PG Mean Corpuscular Hemoglobin Concent 32 32-36 G/DL Red Cell Distribution Width 14.7 H 10.0-14.5 % Platelet Count 270 130-400 10^3/uL Mean Platelet Volume 10.7 H 7.4-10.4 FL Neutrophils (%) (Auto) 89 H 42-75 % Lymphocytes (%) (Auto) 6 L 12-44 % Monocytes (%) (Auto) 5 0-12 % Eosinophils (%) (Auto) 0 0-10 % Basophils (%) (Auto) 0 0-10 % Neutrophils # (Auto) 12.1 H 1.8-7.8 X 10^3 Lymphocytes # (Auto) 0.8 L 1.0-4.0 X 10^3 Monocytes # (Auto) 0.6 0.0-1.0 X 10^3 Eosinophils # (Auto) 0.0 0.0-0.3 10^3/uL Basophils # (Auto) 0.0 0.0-0.1 10^3/uL Neutrophils % (Manual) 91 % Lymphocytes % (Manual) 8 % Monocytes % (Manual) 1 % Eosinophils % (Manual) 0 % Basophils % (Manual) 0 % Band Neutrophils 0 % Toxic Granulation 1+ Polychromasia SLIGHT Anisocytosis SLIGHT Macrocytosis SLIGHT Prothrombin Time 13.5 12.2-14.7 SEC INR Comment 1.0 0.8-1.4 Activated Partial Thromboplast Time < 20 L 24-35 SEC Sodium Level 134 L 135-145 MMOL/L Potassium Level 4.0 3.6-5.0 MMOL/L Chloride Level 91 L 98-107 MMOL/L Carbon Dioxide Level 23 21-32 MMOL/L Anion Gap 20 H 5-14 MMOL/L Blood Urea Nitrogen 61 H 7-18 MG/DL Creatinine 1.95 H 0.60-1.30 MG/DL Estimat Glomerular Filtration Rate 34 BUN/Creatinine Ratio 31 Glucose Level 726 *H 70-105 MG/DL Glucometer > 600 *H > 600 *H 70-110 MG/DL Lactic Acid Level 9.03 *H 4.07 *H 0.50-2.00 MMOL/L Calcium Level 8.2 L 8.5-10.1 MG/DL Corrected Calcium 9.1 8.5-10.1 MG/DL Magnesium Level 2.0 1.8-2.4 MG/DL Total Bilirubin 0.3 0.1-1.0 MG/DL Aspartate Amino Transf (AST/SGOT) 22 5-34 U/L Alanine Aminotransferase (ALT/SGPT) 27 0-55 U/L Alkaline Phosphatase 67 40-136 U/L Total Protein 4.4 L 6.4-8.2 GM/DL Albumin 2.9 L 3.2-4.5 GM/DL Urine Color YELLOW Urine Clarity CLEAR Urine pH 7 5-9 Urine Specific [place] 1.005 L 1.016-1.022 Urine Protein 1+ H NEGATIVE Urine Glucose (UA) 4+ H NEGATIVE Urine Ketones 1+ H NEGATIVE Urine Nitrite NEGATIVE NEGATIVE Urine Bilirubin NEGATIVE NEGATIVE Urine Urobilinogen NORMAL NORMAL MG/DL Urine Leukocyte Esterase NEGATIVE NEGATIVE Urine RBC (Auto) NEGATIVE NEGATIVE Urine RBC NONE /HPF Urine WBC NONE /HPF Urine Squamous Epithelial Cells 0-2 /HPF Urine Crystals NONE /LPF Urine Bacteria TRACE /HPF Urine Casts PRESENT /LPF Urine Hyaline Casts RARE /LPF Urine Mucus NEGATIVE /LPF Urine Culture Indicated NO Test 07/07/18 01:58 07/07/18 02:56 07/07/18 03:10 07/07/18 03:53 Range/Units Glucometer 464 *H 426 *H 357 H 70-110 MG/DL White Blood Count 14.8 H 4.3-11.0 10^3/uL Red Blood Count 2.69 L 4.35-5.85 10^6/uL Hemoglobin 8.0 L 13.3-17.7 G/DL Hematocrit 24 L 40-54 % Mean Corpuscular Volume 90 80-99 FL Mean Corpuscular Hemoglobin 30 25-34 PG Mean Corpuscular Hemoglobin Concent 33 32-36 G/DL Red Cell Distribution Width 15.2 H 10.0-14.5 % Platelet Count 245 130-400 10^3/uL Mean Platelet Volume 10.1 7.4-10.4 FL Neutrophils (%) (Auto) 89 H 42-75 % Lymphocytes (%) (Auto) 8 L 12-44 % Monocytes (%) (Auto) 4 0-12 % Eosinophils (%) (Auto) 0 0-10 % Basophils (%) (Auto) 0 0-10 % Neutrophils # (Auto) 13.1 H 1.8-7.8 X 10^3 Lymphocytes # (Auto) 1.2 1.0-4.0 X 10^3 Monocytes # (Auto) 0.5 0.0-1.0 X 10^3 Eosinophils # (Auto) 0.0 0.0-0.3 10^3/uL Basophils # (Auto) 0.0 0.0-0.1 10^3/uL Sodium Level 139 135-145 MMOL/L Potassium Level 3.2 L 3.6-5.0 MMOL/L Chloride Level 97 L 98-107 MMOL/L Carbon Dioxide Level 29 21-32 MMOL/L Anion Gap 13 5-14 MMOL/L Blood Urea Nitrogen 53 H 7-18 MG/DL Creatinine 1.61 H 0.60-1.30 MG/DL Estimat Glomerular Filtration Rate 43 BUN/Creatinine Ratio 33 Glucose Level 412 *H 70-105 MG/DL Lactic Acid Level 3.06 *H 0.50-2.00 MMOL/L Calcium Level 8.4 L 8.5-10.1 MG/DL Corrected Calcium 9.3 8.5-10.1 MG/DL Phosphorus Level 3.4 2.3-4.7 MG/DL Magnesium Level 2.0 1.8-2.4 MG/DL Total Bilirubin 0.8 0.1-1.0 MG/DL Aspartate Amino Transf (AST/SGOT) 20 5-34 U/L Alanine Aminotransferase (ALT/SGPT) 27 0-55 U/L Alkaline Phosphatase 59 40-136 U/L Total Protein 4.4 L 6.4-8.2 GM/DL Albumin 2.9 L 3.2-4.5 GM/DL Test 07/07/18 05:02 07/07/18 05:12 07/07/18 05:29 07/07/18 06:45 Range/Units Glucometer 233 H 189 H 104 70-110 MG/DL Lactic Acid Level 2.40 *H 0.50-2.00 MMOL/L Test 07/07/18 07:21 07/07/18 08:25 07/07/18 11:40 07/07/18 12:08 Range/Units Glucometer 118 H 83 187 H 70-110 MG/DL Sodium Level 143 135-145 MMOL/L Potassium Level 3.7 3.6-5.0 MMOL/L Chloride Level 104 98-107 MMOL/L Carbon Dioxide Level 29 21-32 MMOL/L Anion Gap 10 5-14 MMOL/L Blood Urea Nitrogen 43 H 7-18 MG/DL Creatinine 1.37 H 0.60-1.30 MG/DL Estimat Glomerular Filtration Rate 52 BUN/Creatinine Ratio 31 Glucose Level 139 H 70-105 MG/DL Lactic Acid Level 0.99 0.50-2.00 MMOL/L Calcium Level 8.3 L 8.5-10.1 MG/DL Test 07/07/18 13:13 Range/Units Hemoglobin 7.2 L 13.3-17.7 G/DL Hematocrit 23 L 40-54 % Radiology Chest X-ray: COPD Physical Exam-(CHC) Physical Exam Vital Signs VS - Last 72 Hours, by Label 07/06/18 07/06/18 07/06/18 07/07/18 22:34 23:41 23:58 00:00 Temp 95.1 97.1 97.5 Pulse 91 97 96 102 Resp B/P (MAP) 113/53 (73) 91/58 98/54 89/54 Pulse Ox 95 98 98 97 O2 Delivery Room Air Room Air Room Air Room Air 07/07/18 07/07/18 07/07/18 07/07/18 00:20 00:35 00:50 01:05 Pulse 96 91 90 92 Resp B/P (MAP) 104/60 106/75 124/57 93/62 Pulse Ox 96 96 97 96 O2 Delivery Room Air Room Air Room Air Room Air 07/07/18 07/07/18 07/07/18 07/07/18 01:20 01:25 01:42 01:45 Temp 97.2 97.1 97.8 Pulse 93 96 96 104 Resp 20 20 18 28 B/P (MAP) 98/45 99/66 99/66 (77) 102/84 (90) Pulse Ox 96 98 97 94 O2 Delivery Room Air Room Air Room Air 07/07/18 07/07/18 07/07/18 07/07/18 02:00 02:00 02:15 02:30 Pulse 96 94 89 Resp 26 25 13 B/P (MAP) 98/57 (71) 88/58 (68) 96/52 (67) Pulse Ox 95 94 96 93 O2 Delivery Room Air Room Air Room Air Room Air 07/07/18 07/07/18 07/07/18 07/07/18 02:41 02:45 03:00 03:15 Pulse 102 102 97 97 Resp 16 24 22 B/P (MAP) 91/67 (75) 115/81 (92) 102/57 (72) Pulse Ox 94 96 93 O2 Delivery Room Air Room Air Room Air 07/07/18 07/07/18 07/07/18 07/07/18 03:30 03:45 04:00 04:00 Pulse 97 93 100 Resp 20 13 15 B/P (MAP) 126/64 (84) 87/51 (63) 100/57 (71) Pulse Ox 96 94 94 94 O2 Delivery Room Air Room Air Room Air Room Air 07/07/18 07/07/18 07/07/18 07/07/18 04:15 04:30 04:45 05:00 Pulse 103 99 97 97 Resp 22 14 15 16 B/P (MAP) 150/74 (99) 104/44 (64) 104/58 (73) 125/42 (69) Pulse Ox 95 96 94 O2 Delivery Room Air Room Air Room Air Room Air 07/07/18 07/07/18 07/07/18 07/07/18 05:15 05:30 05:45 06:00 Pulse 97 95 96 103 Resp 18 22 14 21 B/P (MAP) 119/64 (82) 123/84 (97) 88/63 (71) 103/57 (72) Pulse Ox 95 97 93 96 O2 Delivery Room Air Room Air Room Air Room Air 07/07/18 07/07/18 07/07/18 07/07/18 06:15 06:30 06:45 07:00 Pulse 98 95 101 99 Resp 18 B/P (MAP) 115/55 (75) 103/41 (61) 100/62 (75) Pulse Ox 93 92 93 O2 Delivery Room Air Room Air Room Air 07/07/18 07/07/18 07/07/18 07/07/18 07:00 08:00 08:27 09:00 Temp 99.2 Pulse 99 106 96 Resp 13 12 14 B/P (MAP) 97/58 (71) 108/64 (79) 95/69 (78) Pulse Ox 93 94 93 O2 Delivery Room Air Room Air Room Air Room Air 07/07/18 07/07/18 07/07/18 07/07/18 10:00 11:00 12:00 12:52 Temp 97.8 Pulse 105 101 101 Resp 15 23 15 B/P (MAP) 128/66 (86) 105/54 (71) 117/61 (79) Pulse Ox 95 95 95 O2 Delivery Room Air Room Air Room Air 07/07/18 07/07/18 07/07/18 13:00 13:00 14:00 Pulse 97 97 104 Resp 14 22 B/P (MAP) 106/57 (73) 118/67 (84) Pulse Ox 91 97 O2 Delivery Room Air Room Air Capillary Refill : Less Than 3 Seconds General Appearance: no apparent distress, thin Respiratory: no accessory muscle use, decreased breath sounds, wheezing Cardiovascular: regular rate, rhythm, no gallop, no murmur Extremities: normal range of motion, non-tender, pedal edema (2+ pitting to midcalf bilaterally) Neurologic/Psychiatric: alert, oriented x 3, abnormal gait (decreased hip flexion strength 3/5 bilaterally, 0/5 dorsiflexion of right foot), other Assessment/Plan Assessment/Plan Admission Dx GI bleed, Hyperglycemia, Renal Failure, Leukocytosis Admission Status: Inpatient Order (span 2 midnights) Reason for Inpatient Admission: GI bleed, Hyperglycemia, Renal Failure, Leukocytosis Assessment & Plan 1. GI Bleed Pt's Hgb has improved since admission. Repeat Hgb level, as it may just be acutely improved after last night's transfusion of PRBCs. Strongly recommended to pt that he get a colonoscopy to look for source of bleed. Pt initially denied any scope, but is reconsidering. Hold Clorzoxazone. 2. Right Foot Drop No hx of inciting factor. Suspect nerve impingement. MRI today and PT. 3. DM Type 2 Sugars acutely high due to stress on body. Sliding scale Novolog. Observe. 4. Acute Kidney Injury Improving currently. Unknown hx. Repeat kidney panel. Continue to monitor and observe. 5. Leukocytosis Unknown origin. Observe. Clinical Quality Measures DVT/VTE Risk/Contraindication: Risk Factor Score Per Nursin RFS Level Per Nursing on Admit: 4+=Very High JOHN MOORE MD 07/07/18 5:23pm: Home Medications Allergies Coded Allergies: No Known Drug Allergies (Unverified , 07/06/18) Assessment/Plan Assessment/Plan (1) GI bleed Status: Acute Assessment & Plan: Hemoglobin improved after transfusion. Surgery consulted. Repeat this afternoon and may need inpatient scopes if persistently dropping. PPI. Hold chlorzoxazone and ibuprofen. Qualifiers: Qualified Codes: K92.2 - Gastrointestinal hemorrhage, unspecified (2) Hyperglycemia Status: Acute Assessment & Plan: Severe on admission, insulin drip overnight with resolution. Change to subcutaneous sliding scale today. (3) Leukocytosis Status: Acute Assessment & Plan: Unclear etiology, no clear source of infection. Maybe reactive related to his GI bleed. Qualifiers: Qualified Codes: D72.829 - Elevated white blood cell count, unspecified (4) Renal failure Status: Acute Assessment & Plan: Unknown baseline renal function, suspect ALAN due to hypovolemia with acute GI bleed. Improving with IVF. Qualifiers: Qualified Codes: N19 - Unspecified kidney failure (5) Lower extremity edema Status: Acute Assessment & Plan: Venous insufficiency/immobility versus related to his kidney function. Consider echocardiogram pending clinical course. (6) Severe anemia Status: Acute Assessment & Plan: Likely secondary to GI bleed, monitor. (7) Hypokalemia Status: Acute Assessment & Plan: Replace and recheck. (8) Lactic acidosis Status: Acute Assessment & Plan: Unclear etiology with no source of infection. Improved with IVF. Denies abdominal pain to suggest ischemia. (9) Diabetes mellitus, type 2 Status: Chronic Assessment & Plan: Diabetic diet when taking oral. Sliding scale insulin. Qualifiers: (10) Urinary retention due to benign prostatic hyperplasia Status: Acute Assessment & Plan: Monitor urine output, may need catheter if significant amount on bladder scan. (11) Right foot drop Status: Acute Assessment & Plan: Lumbar MRI. (12) Poor appetite Status: Acute Assessment & Plan: Denies pain, concern for underlying serious condition given his anemia and weakness. Endoscopy recommended in vs outpatient depending on course. (13) Leg weakness, bilateral Status: Acute Assessment & Plan: Lumbar MRI, PT. (14) BPH (benign prostatic hyperplasia) Status: Chronic Assessment & Plan: Previously on medication, he stopped due to side effects. Qualifiers: (15) PTSD (post-traumatic stress disorder) Status: Chronic Assessment & Plan: Resume home medications. (16) COPD (chronic obstructive pulmonary disease) Status: Chronic Assessment & Plan: Resume home inhalers (17) DVT prophylaxis Status: Acute Assessment & Plan: No pharmacologic ppx with active bleed. SCDs. Supervisory-Addendum Brief Supervisory Addendum I personally re-performed history and physical for this patient today. Agree with documentation by Louisa Henriquez, MS3 except as mine differs. See problem list for my assessment and plan. LOUISA HENRIQUEZ MEDICAL STUDENT Jul 07, 2018 3:52 pm JOHN MOORE MD Jul 07, 2018 5:23 pm
[2018-07-07] MEDS: UMECLIDINIUM BROMIDE (INCRUSE ELLIPTA) 7'S IH SCH (19:40)
[2018-07-07] MEDS: RT-ADVAIR HFA 115/21 MCG PER PUFF IH SCH (19:40)
--- NOTE | 2018-07-07 20:12 | Consultation ---
History of Present Illness History of Present Illness Patient Consulted On(livia/time) 07/07/18 20:06 Date Seen by Provider: Jul 07, 2018 Time Seen by Provider: 07:26 History of Present Illness Patient is a 67-year-old male who is brought to the emergency department last night after being found solid allergic and blood in toilet. Patient states that he has been having some dark tarry stools for the last couple days. Patient states that he's been filling weaker and dizzy since starting some new muscle relaxer. Patient was found to be anemic. Patient was started on Protonix IV twice a day. Patient nothing by mouth. Patient not having any significant abdominal pain. Patient does have posttraumatic stress disorder and is concerned about his meds. Patient not having any nausea vomiting fever sweats chills shortness of breath or chest pain at this time. Chest x-ray demonstrating mild basilar atelectasis versus scar and hyper inflation. Patient reports history of GI bleed many years ago never finding source. Allergies and Home Medications Allergies Coded Allergies: No Known Drug Allergies (Unverified , 07/06/18) Home Medications Albuterol Sulfate 18 Gm Hfa.aer.ad, 2 PUFF INH Q4H PRN for SHORTNESS OF BREATH, (Reported) Alprazolam 0.5 Mg Tablet, 0.5 MG PO BID, (Reported) Budesonide/Formoterol Fumarate 10.2 Gm Hfa.aer.ad, 2 PUFF INH BID, (Reported) Chlorzoxazone 500 Mg Tablet, 500 MG PO BID, (Reported) Diphenhydramine HCl 25 Mg Capsule, 25 MG PO BID PRN for PANIC ATTACKS, (Reported ) Ibuprofen 200 Mg Tablet, 400 MG PO TID PRN for PAIN-MILD, (Reported) Insulin Detemir 100 Unit/1 Ml Insuln.pen, 10-14 UNITS SC HS, (Reported) Metformin HCl 500 Mg Tab.er.24h, 500 MG PO BID WITH MEALS, (Reported) Omeprazole 40 Mg Capsule.dr, 40 MG PO DAILY, (Reported) Paroxetine HCl 20 Mg Tablet, 10 MG PO BID, (Reported) TAKES 1/2 (10MG) TABLET Prednisone 20 Mg Tab, 40 MG PO DAILY, (Reported) TAKES 2 (20MG) TABLETS Umeclidinium [place] 62.5 Mcg Blst.w.dev, 1 PUFF INH DAILY PRN for PANIC ATTACKS , (Reported) Patient Home Medication List Home Medication List Reviewed: Yes Past Ehveuqg-Uxvjmx-Dkookb Hx Patient Social History Alcohol Use: Occasionally Uses ("2 drinks per year") Recreational Drug Use: No Smoking Status: Current Everyday Smoker (down to 1ppd. Hx of 3 ppd.) Type Used: Cigarettes Recent Foreign Travel: No Contact w/Someone Who Travel: No Recent Infectious Disease Expo: No Recent Hopitalizations: No Physical Abuse Screen: Yes Sexual Abuse: No Immunizations Up To Date Tetanus Booster (TDap): Unknown Date of Influenza Vaccine: May 24, 2018 Seasonal Allergies Seasonal Allergies: Yes Surgeries History of Surgeries: No Respiratory History of Respiratory Disorde: Yes Respiratory Disorders: Asthma, COPD Cardiovascular History of Cardiac Disorders: Yes Cardiac Disorders: Hypertension Neurological History of Neurological Disord: Yes Reproductive System Sexually Transmitted Disease: No HIV/AIDS: No Genitourinary History of Genitourinary Disor: Yes Genitourinary Disorders: Benign Prostatic Hyperpl, Kidney Infection, Prostate Problems Gastrointestinal History of Gastrointestinal Di: Yes Gastrointestinal Disorders: Gastrointestinal Bleed, Irritable Bowel Musculoskeletal History of Musculoskeletal Dis: Yes Musculoskeletal Disorders: Back Injury Endocrine History of Endocrine Disorders: Yes Endocrine Disorders: Diabetes, Insulin dep HEENT History of HEENT Disorders: Yes (Are likely dry eyes) Loss of Vision: Bilateral Hearing Impairment: Denies Cancer History of Cancer: No Psychosocial History of Psychiatric Problem: Yes Behavioral Health Disorders: PTSD Integumentary History of Skin or Integumenta: No Blood Transfusions History of Blood Disorders: No Adverse Reaction to a Blood Tr: No Family Medical History Significant Family History: No Pertinent Family Hx Review of Systems-General Constitutional: see HPI EENTM: no symptoms reported Respiratory: no symptoms reported Cardiovascular: no symptoms reported Gastrointestinal: no symptoms reported Genitourinary: incontinence Musculoskeletal: no symptoms reported Skin: no symptoms reported Psychiatric/Neurological: No Symptoms Reported Physical Exam-General Problems Physical Exam Vital Signs Vital Signs - First Documented 07/06/18 22:34 Temp 95.1 Pulse 91 Resp 23 B/P (MAP) 113/53 (73) Pulse Ox 95 O2 Delivery Room Air Capillary Refill : Less Than 3 Seconds General Appearance: no apparent distress HEENT: PERRL/EOMI, normal ENT inspection Neck: supple, normal inspection Respiratory: chest non-tender, no respiratory distress, no accessory muscle use Cardiovascular: regular rate, rhythm Gastrointestinal: non tender, soft, no organomegaly, no pulsatile mass Rectal: deferred Back: normal inspection Extremities: non-tender, pedal edema Neurologic/Psychiatric: no motor/sensory deficits, alert, normal mood/affect, oriented x 3 Skin: warm/dry Lymphatic: no adenopathy Data Review Labs Laboratory Tests 07/06/18 22:44: White Blood Count 13.6H, Red Blood Count 2.39L, Hemoglobin 7.2L, Hematocrit 23L , Mean Corpuscular Volume 94, Mean Corpuscular Hemoglobin 30, Mean Corpuscular Hemoglobin Concent 32, Red Cell Distribution Width 14.7H, Platelet Count 270, Mean Platelet Volume 10.7H, Neutrophils (%) (Auto) 89H, Lymphocytes (%) (Auto) 6L, Monocytes (%) (Auto) 5, Eosinophils (%) (Auto) 0, Basophils (%) (Auto) 0, Neutrophils # (Auto) 12.1H, Lymphocytes # (Auto) 0.8L, Monocytes # (Auto) 0.6, Eosinophils # (Auto) 0.0, Basophils # (Auto) 0.0, Neutrophils % (Manual) 91, Lymphocytes % (Manual) 8, Monocytes % (Manual) 1, Eosinophils % (Manual) 0, Basophils % (Manual) 0, Band Neutrophils 0, Toxic Granulation 1+, Polychromasia SLIGHT, Anisocytosis SLIGHT, Macrocytosis SLIGHT, Prothrombin Time 13.5, INR Comment 1.0, Activated Partial Thromboplast Time < 20L, Sodium Level 134L, Potassium Level 4.0, Chloride Level 91L, Carbon Dioxide Level 23, Anion Gap 20H , Blood Urea Nitrogen 61H, Creatinine 1.95H, Estimat Glomerular Filtration Rate 34, BUN/Creatinine Ratio 31, Glucose Level 726*H, Glucometer > 600*H, Lactic Acid Level 9.03*H, Calcium Level 8.2L, Corrected Calcium 9.1, Magnesium Level 2.0, Total Bilirubin 0.3, Aspartate Amino Transf (AST/SGOT) 22, Alanine Aminotransferase (ALT/SGPT) 27, Alkaline Phosphatase 67, Total Protein 4.4L, Albumin 2.9L 07/06/18 23:25: Urine Color YELLOW, Urine Clarity CLEAR, Urine pH 7, Urine Specific [place] 1.005L, Urine Protein 1+H, Urine Glucose (UA) 4+H, Urine Ketones 1+H, Urine Nitrite NEGATIVE, Urine Bilirubin NEGATIVE, Urine Urobilinogen NORMAL, Urine Leukocyte Esterase NEGATIVE, Urine RBC (Auto) NEGATIVE, Urine RBC NONE, Urine WBC NONE, Urine Squamous Epithelial Cells 0-2, Urine Crystals NONE, Urine Bacteria TRACE, Urine Casts PRESENT, Urine Hyaline Casts RARE, Urine Mucus NEGATIVE, Urine Culture Indicated NO 07/07/18 00:22: Glucometer > 600*H 07/07/18 00:50: Lactic Acid Level 4.07*H 07/07/18 01:58: Glucometer 464*H 07/07/18 02:56: Glucometer 426*H 07/07/18 03:10: White Blood Count 14.8H, Red Blood Count 2.69L, Hemoglobin 8.0L, Hematocrit 24L , Mean Corpuscular Volume 90, Mean Corpuscular Hemoglobin 30, Mean Corpuscular Hemoglobin Concent 33, Red Cell Distribution Width 15.2H, Platelet Count 245, Mean Platelet Volume 10.1, Neutrophils (%) (Auto) 89H, Lymphocytes (%) (Auto) 8L , Monocytes (%) (Auto) 4, Eosinophils (%) (Auto) 0, Basophils (%) (Auto) 0, Neutrophils # (Auto) 13.1H, Lymphocytes # (Auto) 1.2, Monocytes # (Auto) 0.5, Eosinophils # (Auto) 0.0, Basophils # (Auto) 0.0, Sodium Level 139, Potassium Level 3.2L, Chloride Level 97L, Carbon Dioxide Level 29, Anion Gap 13, Blood Urea Nitrogen 53H, Creatinine 1.61H, Estimat Glomerular Filtration Rate 43, BUN/ Creatinine Ratio 33, Glucose Level 412*H, Lactic Acid Level 3.06*H, Calcium Level 8.4L, Corrected Calcium 9.3, Phosphorus Level 3.4, Magnesium Level 2.0, Total Bilirubin 0.8, Aspartate Amino Transf (AST/SGOT) 20, Alanine Aminotransferase (ALT/SGPT) 27, Alkaline Phosphatase 59, Total Protein 4.4L, Albumin 2.9L 07/07/18 03:53: Glucometer 357H 07/07/18 05:02: Glucometer 233H 07/07/18 05:12: Lactic Acid Level 2.40*H 07/07/18 05:29: Glucometer 189H 07/07/18 06:45: Glucometer 104 07/07/18 07:21: Glucometer 118H 07/07/18 08:25: Glucometer 83 07/07/18 11:40: Sodium Level 143, Potassium Level 3.7, Chloride Level 104, Carbon Dioxide Level 29, Anion Gap 10, Blood Urea Nitrogen 43H, Creatinine 1.37H, Estimat Glomerular Filtration Rate 52, BUN/Creatinine Ratio 31, Glucose Level 139H, Lactic Acid Level 0.99, Calcium Level 8.3L 07/07/18 12:08: Glucometer 187H 07/07/18 13:13: Hemoglobin 7.2L, Hematocrit 23L 07/07/18 16:35: Hemoglobin 6.9*L 07/07/18 17:54: Glucometer 145H Microbiology 07/07/18 Blood Culture - Preliminary, Resulted No growth Assessment/Plan Assessment/Plan Assessment/Plan Anemia, GI bleed causing anemia likely upper due to patient having black tarry stools recently Posttraumatic stress disorder Patient on Protonix. Keep nothing by mouth. Follow hemoglobin and transfuse when necessary PRBC Inpatient versus outpatient endoscopic evaluation No surgical intervention needed at this time. We'll continue to follow. Clinical Quality Measures DVT/VTE Risk/Contraindication: Risk Factor Score Per Nursin RFS Level Per Nursing on Admit: 4+=Very High JAVIER MARTINEZ DO Jul 07, 2018 20:12
[2018-07-07] MEDS ORDERED: NON-FORMULARY MEDICATION 1 EA EA (Budesonide/Formoterol Fumarate (Symbicort 160-4.5 Mcg In INH SCH (21:00)
[2018-07-07] MEDS: ALPRAZolam 0.5 MG (XANAX) TAB PO SCH (21:38)
[2018-07-07] MEDS: PARoxetine 20 MG (PAXIL) TAB PO SCH (21:38)
[2018-07-08] VITALS (21 sets, daily range): BP systolic 90–137; BP diastolic 47–75
[2018-07-08] MEDS ORDERED: NS IV 500 ML 500 ML ONE (00:19)
[2018-07-08 04:30] LABS: HEMOGLOBIN 7.1 G/DL (13.3-17.7); MEAN PLATELET VOLUME 9.5 FL (7.4-10.4); RED BLOOD COUNT 2.36 10^6/uL (4.35-5.85); RED CELL DISTRIBUTION WIDTH 16.7 % (10.0-14.5); WHITE BLOOD COUNT 11.8 10^3/uL (4.3-11.0)
[2018-07-08 04:44] LABS: BUN/CREATININE RATIO 30; CALCIUM 7.7 MG/DL (8.5-10.1); CARBON DIOXIDE 23 MMOL/L (21-32); CHLORIDE 112 MMOL/L (98-107); CREATININE SERUM 0.99 MG/DL (0.60-1.30); GFR ESTIMATED > 60; GLUCOSE 156 MG/DL (70-105); POTASSIUM 3.7 MMOL/L (3.6-5.0); SODIUM 143 MMOL/L (135-145)
[2018-07-08] MEDS: CATHETER FLUSH 10 ML SYR IV SCH ×3 (06:22→22:47)
[2018-07-08] MEDS: MAGNESIUM 1 GM/100 ML IVPB 100 ML IV SCH (06:22)
[2018-07-08] MEDS: POTASSIUM CL 10MEQ/50ML IVPB 50 ML IV SCH (06:22)
[2018-07-08] MEDS: KCL 20 MEQ TAB (K-DUR) PO SCH (06:22)
[2018-07-08] MEDS: NS IV 1000 ML 1,000 ML IV SCH ×3 (07:02→16:33)
--- NOTE | 2018-07-08 07:44 | Diagnostic Imaging Report ---
INDICATION: Shortness of breath and anemia. Portable chest 3:29 AM FINDINGS: Heart size and pulmonary vascularity are normal. Lungs are clear. There are no effusions or pneumothoraces. IMPRESSION: Negative chest. Dictated by: Dictated on workstation # [id number]
[2018-07-08] MEDS: ALPRAZolam 0.5 MG (XANAX) TAB PO SCH ×2 (08:11→21:08)
[2018-07-08] MEDS: PANTOPRAZOLE 40 MG (PROTONIX) TAB PO SCH (08:12)
[2018-07-08] MEDS: PARoxetine 20 MG (PAXIL) TAB PO SCH ×2 (08:12→21:08)
[2018-07-08] MEDS: RT-ADVAIR HFA 115/21 MCG PER PUFF IH SCH ×2 (08:51→20:00)
[2018-07-08] MEDS: UMECLIDINIUM BROMIDE (INCRUSE ELLIPTA) 7'S IH SCH (08:51)
[2018-07-08] MEDS ORDERED: NON-FORMULARY MEDICATION 1 EA EA (Omeprazole 40 MG) PO SCH (09:00)
[2018-07-08] MEDS: NICOTINE 21 MG (NICODERM) PATCH TD SCH ×2 (09:19→21:09)
--- NOTE | 2018-07-08 11:27 | Progress Note (SOAP) ---
LOUISA HENRIQUEZ MEDICAL STUDENT 07/08/18 11:27am: Subjective Subjective/Events-last exam Pt reports feeling much better today without any SOB. Pt states he does not feel as tired, but is still weak. He notes that PT yesterday was hard because he felt so weak and unstable. Denies bowel movement since admission. Urinating well with the placement of catheter. Denies questions or complaints. Review of Systems Date Seen by Provider: Jul 08, 2018 Time Seen by Provider: 07:40 General: Other (weak) Pulmonary: No Dyspnea Cardiovascular: No: Chest Pain Gastrointestinal: No: Nausea, Vomiting, Diarrhea Focused Exam Sepsis Stage: Ruled Out Lactate Level 07/07/18 03:10: Lactic Acid Level 3.06*H 07/07/18 05:12: Lactic Acid Level 2.40*H 07/07/18 11:40: Lactic Acid Level 0.99 Time of Focused Exam: 07:40 Respiratory: Chest Non Tender, Decreased Breath Sounds Cardiovascular: Regular Rate, Rhythm, No Gallop, No Murmur Skin: pallor Objective Exam Last Set of Vital Signs Vital Signs Date Time Temp Pulse Resp B/P (MAP) Pulse Ox O2 Delivery O2 Flow Rate FiO2 07/08/18 10:00 102 9 120/73 (89) 95 Room Air 07/08/18 08:00 98.8 Capillary Refill : Less Than 3 Seconds I&O Intake and Output 07/08/18 00:00 Intake Total 4100 ml Output Total 2040 ml Balance 2060 ml IV Total 4100 ml Output Urine Total 2040 ml Daily Weight Change Yes, 2-13 lbs General: Alert, Oriented X3, Cooperative, No Acute Distress Abdomen: Normal Bowel Sounds, Other (no tenderness to palpation) Extremities: Normal Pulses Psych/Mental Status: Mental Status NL Results/Procedures Lab Laboratory Tests 07/07/18 11:40: Sodium Level 143, Potassium Level 3.7, Chloride Level 104, Carbon Dioxide Level 29, Anion Gap 10, Blood Urea Nitrogen 43H, Creatinine 1.37H, Estimat Glomerular Filtration Rate 52, BUN/Creatinine Ratio 31, Glucose Level 139H, Lactic Acid Level 0.99, Calcium Level 8.3L 07/07/18 12:08: Glucometer 187H 07/07/18 13:13: Hemoglobin 7.2L, Hematocrit 23L 07/07/18 16:35: Hemoglobin 6.9*L 07/07/18 17:54: Glucometer 145H 07/07/18 23:33: Hemoglobin 6.0*L, Hematocrit 19*L 07/08/18 00:50: Glucometer 153H 07/08/18 04:24: Hemoglobin 7.1L, Hematocrit 22L, White Blood Count 11.8H, Red Blood Count 2.36L , Mean Corpuscular Volume 95, Mean Corpuscular Hemoglobin 30, Mean Corpuscular Hemoglobin Concent 32, Red Cell Distribution Width 16.7H, Platelet Count 200, Mean Platelet Volume 9.5, Sodium Level 143, Potassium Level 3.7, Chloride Level 112H, Carbon Dioxide Level 23, Anion Gap 8, Blood Urea Nitrogen 30H, Creatinine 0.99, Estimat Glomerular Filtration Rate > 60, BUN/Creatinine Ratio 30, Glucose Level 156H, Calcium Level 7.7L Microbiology 07/07/18 Blood Culture - Preliminary, Resulted No growth 07/07/18 MRSA Screen - Final, Complete MRSA not isolated 07/06/18 Urine Culture - Final, Complete NO GROWTH Radiology MRI: Lumbar Spondylosis Chest X-ray: negative for any acute abnormalities Meds Active Scripts Active Reported Advil (Ibuprofen) 200 Mg Tablet 400 Mg PO TID PRN Benadryl (Diphenhydramine HCl) 25 Mg Capsule 25 Mg PO BID PRN Chlorzoxazone 500 Mg Tablet 500 Mg PO BID Ventolin Hfa (Albuterol Sulfate) 18 Gm Hfa.aer.ad 2 Puff INH Q4H PRN Levemir Flextouch (Insulin Detemir) 100 Unit/1 Ml Insuln.pen 10-14 Units SC HS Metformin HCl ER (Metformin HCl) 500 Mg Tab.er.24h 500 Mg PO BID WITH MEALS Prednisone 20 Mg Tab 40 Mg PO DAILY TAKES 2 (20MG) TABLETS Symbicort 160-4.5 Mcg Inhaler (Budesonide/Formoterol Fumarate) 10.2 Gm Hfa.aer.ad 2 Puff INH BID Incruse Ellipta (Umeclidinium [place]) 62.5 Mcg Blst.w.dev 1 Puff INH DAILY PRN Paroxetine HCl 20 Mg Tablet 10 Mg PO BID TAKES 1/2 (10MG) TABLET Alprazolam 0.5 Mg Tablet 0.5 Mg PO BID Omeprazole 40 Mg Capsule.dr 40 Mg PO DAILY Assessment/Plan Assessment/Plan Admission Dx GI bleed, Renal Failure Admission Status: Inpatient Order (span 2 midnights) Reason for Inpatient Admission: GI bleed, Renal Failure Assessment & Plan 1. GI Bleed Pt required another unit of PRBCs last night; Hgb stable for now. EGD with Acharya today. Consider colonoscopy outpatient, should EGD come back negative. 2. Right Foot Drop MRI showed only lumbar spondylosis. Not a strong explanation for his foot drop. No inciting event. 3. DM Type 2 Sliding scale Novolog. Observe. 4. Acute Kidney Injury Improved. Unknown hx. 5. Leukocytosis Unknown origin. Observe. (1) GI bleed Status: Acute Assessment & Plan: Pt required another unit of PRBCs last night; Hgb stable for now. EGD with Acharya today. Consider colonoscopy outpatient, should EGD come back negative. Qualifiers: Qualified Codes: K92.2 - Gastrointestinal hemorrhage, unspecified (2) Hyperglycemia Status: Acute Assessment & Plan: sliding scale today. (3) Leukocytosis Status: Acute Assessment & Plan: Unclear etiology, no clear source of infection. Maybe reactive related to his GI bleed. Qualifiers: Qualified Codes: D72.829 - Elevated white blood cell count, unspecified (4) Renal failure Status: Resolved Assessment & Plan: Unknown baseline renal function, suspect ALAN due to hypovolemia with acute GI bleed. Improving with IVF. Qualifiers: Qualified Codes: N19 - Unspecified kidney failure (5) Lower extremity edema Status: Acute Assessment & Plan: Venous insufficiency/immobility versus related to his kidney function. Consider echocardiogram pending clinical course. (6) Severe anemia Status: Acute Assessment & Plan: Pt required another unit of PRBCs last night. EGD with Acharya today. Consider colonscopy outpatient, should EGD come back negative. (7) Hypokalemia Status: Resolved Assessment & Plan: Replace and recheck. (8) Lactic acidosis Status: Resolved Assessment & Plan: Unclear etiology with no source of infection. Improved with IVF. Denies abdominal pain to suggest ischemia. (9) Diabetes mellitus, type 2 Status: Chronic Assessment & Plan: Diabetic diet when taking oral. Sliding scale insulin. Qualifiers: (10) Urinary retention due to benign prostatic hyperplasia Status: Acute Assessment & Plan: Catheter placed. (11) Right foot drop Status: Acute Assessment & Plan: MRI showed only lumbar spondylosis. Not a strong explanation for his foot drop. (12) Poor appetite Status: Acute Assessment & Plan: Denies pain, concern for underlying serious condition given his anemia and weakness. Endoscopy recommended in vs outpatient depending on course. (13) Leg weakness, bilateral Status: Acute Assessment & Plan: PT. (14) BPH (benign prostatic hyperplasia) Status: Chronic Assessment & Plan: Previously on medication, he stopped due to side effects. Consider restarting Flomax or consider home cath. Qualifiers: (15) PTSD (post-traumatic stress disorder) Status: Chronic Assessment & Plan: Resume home medications. (16) COPD (chronic obstructive pulmonary disease) Status: Chronic Assessment & Plan: Resume home inhalers (17) DVT prophylaxis Status: Acute Assessment & Plan: No pharmacologic ppx with active bleed. SCDs. Clinical Quality Measures DVT/VTE Risk/Contraindication: Risk Factor Score Per Nursin RFS Level Per Nursing on Admit: 4+=Very High JOHN VILLALPANDO MD 07/08/18 12:07pm: Subjective Review of Systems Date Seen by Provider: Jul 08, 2018 Time Seen by Provider: 08:50 Assessment/Plan Assessment/Plan (1) GI bleed Status: Acute Assessment & Plan: Pt required another unit of PRBCs last night; Hgb stable for now. EGD with Acharya today. Consider colonoscopy outpatient, should EGD come back negative. Qualifiers: Qualified Codes: K92.2 - Gastrointestinal hemorrhage, unspecified (2) Hyperglycemia Status: Acute Assessment & Plan: sliding scale today. (3) Leukocytosis Status: Acute Assessment & Plan: Unclear etiology, no clear source of infection. Maybe reactive related to his GI bleed. 07/08 improving without antibiotics Qualifiers: Qualified Codes: D72.829 - Elevated white blood cell count, unspecified (4) Renal failure Status: Resolved Assessment & Plan: Unknown baseline renal function, suspect ALAN due to hypovolemia with acute GI bleed. Improving with IVF. Qualifiers: Qualified Codes: N19 - Unspecified kidney failure (5) Lower extremity edema Status: Acute Assessment & Plan: Venous insufficiency/immobility versus related to his kidney function. Consider echocardiogram pending clinical course. (6) Severe anemia Status: Acute Assessment & Plan: Pt required another unit of PRBCs last night. EGD with Acharya today. Consider colonscopy outpatient, should EGD come back negative. (7) Hypokalemia Status: Resolved Assessment & Plan: Replace and recheck. (8) Lactic acidosis Status: Resolved Assessment & Plan: Unclear etiology with no source of infection. Improved with IVF. Denies abdominal pain to suggest ischemia. (9) Diabetes mellitus, type 2 Status: Chronic Assessment & Plan: Diabetic diet when taking oral. Sliding scale insulin. Qualifiers: (10) Urinary retention due to benign prostatic hyperplasia Status: Acute Assessment & Plan: Catheter placed 07/07 due to significant retention. 07/08 start Flomax, may need to d/c with liriano depending on course. (11) Right foot drop Status: Acute Assessment & Plan: MRI showed only lumbar spondylosis. No clear explanation for his foot drop. 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 (12) Poor appetite Status: Acute Assessment & Plan: Denies pain, concern for underlying serious condition given his anemia and weakness. Endoscopy recommended in vs outpatient depending on course. 07/08 EGD today (13) Leg weakness, bilateral Status: Acute Assessment & Plan: PT. (14) BPH (benign prostatic hyperplasia) Status: Chronic Assessment & Plan: Previously on medication, he stopped due to side effects. Qualifiers: (15) PTSD (post-traumatic stress disorder) Status: Chronic Assessment & Plan: Resume home medications. (16) COPD (chronic obstructive pulmonary disease) Status: Chronic Assessment & Plan: Resume home inhalers (17) DVT prophylaxis Status: Acute Assessment & Plan: No pharmacologic ppx with active bleed. SCDs. Supervisory-Addendum Brief Supervisory Addendum I personally saw patient and reperformed history and physical today. Agree with documentation by Louisa Henriquez MS3 except as mine differs. See problem list for my assessment and plan. LOUISA HENRIQUEZ MEDICAL STUDENT Jul 08, 2018 11:27 am JOHN VILLALPANDO MD Jul 08, 2018 12:07 pm
--- NOTE | 2018-07-08 11:28 | Physical Therapy Daily Note ---
PT Daily Note-Current Subjective Patient in bed pre tx, agrees to PT, no complaints of pain at rest but has some pain in right bottom of foot with activity. Appearance Patient in recliner post tx with nurse call, phone, tray, all needs met. Mental Status Patient Orientation: Person, Place, Situation Attachments: [place] Catheter, IV Transfers Functional [place] Measure 0=Not Assessed/NA 4=Minimal Assistance 1=Total Assistance 5=Supervision or Setup 2=Maximal Assistance 6=Modified [place] 3=Moderate Assistance 7=Complete IndependenceIRFPAI Quality Coding Scale 6 Independent with activity with or without an assistive device 5 Patient requires set up or clean up by helper. Patient completes activity by themselves 4 Supervision or touching assist (CGA). [place] provide cues , steadying assist 3 The helper provides less than half the effort to complete the activity 2 The helper provides more than half the effort to complete the activity 1 Dependent. The helper does all the effort to complete an activity 7 Patient refused to complete or attempt activity 9 The patient did not perform the activity before the current illness or injury 88 Not attempted due to Medical conditions or safety concerns Transfers (B, C, W/C) (FIM): 4 Scootin Rollin Supine to/from Sit: 5 Sit to/from Stand: 5 Bed to/from Chair: 4 CGA for transfers, cues for safety and positioning, patient initially has some light headedness after sitting but it passed quickly Gait Training Gait (FIM): 1 Distance: 20' Gait Level of Assist: 4 Gait Persons Needed: 1 Gait Assistive Device: FWW CGA, slow ambulation, no SOB Exercises Seated Therapy Exercises: Ankle pumps, Long arc quads Seated Reps: 20 Treatments bed mobility and transfers, ambulation, AROM Assessment Current Status: Fair Progress improved ambulation, patient has dropfoot on the right side PT Half-Way Goals Chief Scientific Officer Goals PT Half-Way Goals Time Frame: Jul 14, 2018 Transfers (B,C,W/C) (FIM): 6 Gait (FIM): 6 Gait distance (FIM): 3=150 ft Gait Level of Assist: 6 Gait Assistive Device: FWW PT Plan Problem List Problem List: Activity Tolerance, Functional Strength, Safety, Balance, Gait, Transfer, Bed Mobility, ROM Treatment/Plan Treatment Plan: Continue Plan of Care Treatment Plan: Bed Mobility, Education, Functional Activity Michel, Functional Strength, Gait, Safety, Therapeutic Exercise, Transfers Treatment Duration: Jul 14, 2018 Frequency: 6 times per week Estimated Hrs Per Day: .5 hour per day Patient and/or Family Agrees t: Yes Safety Risks/Education Patient Education: Gait Training, Transfer Techniques, Correct Positioning, Safety Issues Teaching Recipient: Patient Teaching Methods: Demonstration, Discussion Response to Teaching: Reinforcement Needed Time/GCodes Time In: 1100 Time Out: 1120 Total Billed Treatment Time: 20 Total Billed Treatment 1 visit GT 20' CRISTÓBAL MONTEMAYOR PT Jul 08, 2018 11:28
[2018-07-08] MEDS ORDERED: MIDAZOLAM 2 MG/2 ML (VERSED) VIAL ONE (14:15)
[2018-07-08] MEDS ORDERED: proPOfol 200 MG/20 ML (DIPRIVAN) VIAL IV ONE (14:15)
[2018-07-08] MEDS ORDERED: LACTATED RINGERS 1,000 ML IV ONE ×2 (14:26→15:15)
--- NOTE | 2018-07-08 14:34 | Progress Note-Pre Operative ---
Pre-Operative Progress Note H&P Reviewed The H&P was reviewed, patient examined and no changes noted. Date Seen by Provider: Jul 08, 2018 Time Seen by Provider: 14:34 Date H&P Reviewed: Jul 08, 2018 Time H&P Reviewed: 14:34 Pre-Operative Diagnosis: ANEMIA, GI BLEED JAVIER MARTINEZ DO Jul 08, 2018 14:34
--- NOTE | 2018-07-08 14:50 | Progress Note-Post Operative ---
Post-Operative Progess Note Surgeon (s)/Electric Stop Installer (s) Surgeon JAVIER MARTINEZ DO Electric Stop Installer: na Pre-Operative Diagnosis ANEMIA, GI BLEED Post-Operative Diagnosis duodenal ulcers, gastritis, small h/h reflux esophagitis Procedure & Operative Findings Date of Procedure 07/08/18 Procedure Performed/Findings egd c biopsies Anesthesia Type per mda Estimated Blood Loss Estimated blood loss (mL): none Specimens/Packing Specimens Removed antrum, duodenum, ge JAVIER MARTINEZ DO Jul 08, 2018 14:50
[2018-07-08] MEDS ORDERED: HURRICAINE EXT TUBE (BENZOCAINE) XX ONE (15:15)
--- NOTE | 2018-07-08 15:22 | Anesthesia-General Post-Op ---
MAC Patient Condition Mental Status/LOC: Same as Preop Cardiovascular: Satisfactory Nausea/Vomiting: Absent Respiratory: Satisfactory Pain: Controlled Complications: Absent Post Op Complications Complications None Follow Up Care/Instructions Patient Instructions None needed. Anesthesiology Discharge Order Discharge Order Patient is doing well, no complaints, stable vital signs, no apparent adverse anesthesia problems. No complications reported per nursing. ROBERTH MILTON CRNA Jul 08, 2018 15:22
[2018-07-08 15:52] LABS: HEMOGLOBIN 7.1 G/DL (13.3-17.7)
[2018-07-08] MEDS: inSUlin ASPART (NovoLOG) 1 UNIT/0.01 ML (CHARGE PER UNIT) SC SCH ×2 (16:34→22:43)
[2018-07-08] MEDS: SUCRALFATE 1 GM (CARAFATE) TAB PO SCH ×2 (16:35→21:08)
[2018-07-08] MEDS: TAMSULOSIN 0.4 MG (FLOMAX) CAP PO SCH (16:35)
[2018-07-09] VITALS (11 sets, daily range): BP systolic 109–158; BP diastolic 54–77
[2018-07-09] MEDS: NS IV 1000 ML 1,000 ML IV SCH ×2 (00:26→04:27)
--- NOTE | 2018-07-09 00:35 | OPERATIVE REPORT ---
DATE OF SERVICE: 07/08/2018 PREOPERATIVE DIAGNOSES: Anemia, gastrointestinal bleed. POSTOPERATIVE DIAGNOSES: Duodenal ulcers, gastritis, small hiatal hernia, reflux esophagitis. PROCEDURE: EGD with biopsies. SURGEON: Javier Acharya DO ANESTHESIA: Per MDA. ESTIMATED BLOOD LOSS: None. COMPLICATIONS: None. SPECIMENS: Antrum, duodenum and GE junction. INDICATIONS: The patient is a 67-year-old male who was admitted with GI bleed. He understands risks and benefits of procedure and wished to proceed with procedure. Consent was signed in the chart. DESCRIPTION OF PROCEDURE: The patient was taken to the endoscopy suite, placed in left lateral recumbent position. Timeout was performed. Scope was inserted in the mouth down the esophagus and into the duodenum without difficulty. In the duodenum, there are multiple large ulcerations present. Biopsy of the edge of one of these was obtained. Scope was then slowly retracted back into the stomach, which had erythematous changes. Biopsy of the antrum was obtained. Scope was retroflexed noting a small hiatal hernia, no other pathology noted. Scope was returned to its normal position, slowly withdrawn to the distal esophagus, which had characteristics of reflux esophagitis. Biopsy of the GE junction was obtained. Scope was slowly retracted back to completely remove. The patient tolerated the procedure well without any complications. He was taken to the recovery room in stable condition. RECOMMENDATIONS: The patient started on Protonix. We will add Carafate 1 gram four times a day. We will start him on clear liquids. There is no active bleeding present on EGD. The patient to continue to follow hemoglobin. Job ID: [id number] DocumentID: [id number] Dictated Date: 07/08/2018 14:53:51 Nephrology Social Worker Date: 07/09/2018 00:35:27 Dictated By: JAVIER ACHARYA DO
[2018-07-09 06:06] LABS: MEAN PLATELET VOLUME 9.8 FL (7.4-10.4); RED BLOOD COUNT 1.89 10^6/uL (4.35-5.85); RED CELL DISTRIBUTION WIDTH 17.4 % (10.0-14.5); WHITE BLOOD COUNT 7.9 10^3/uL (4.3-11.0)
[2018-07-09 06:13] LABS: HEMOGLOBIN 5.8 G/DL (13.3-17.7)
[2018-07-09] MEDS ORDERED: NS IV 500 ML 500 ML IV SCH (06:22)
[2018-07-09 06:27] LABS: BUN/CREATININE RATIO 27; CALCIUM 7.5 MG/DL (8.5-10.1); CARBON DIOXIDE 21 MMOL/L (21-32); CHLORIDE 114 MMOL/L (98-107); CREATININE SERUM 0.83 MG/DL (0.60-1.30); GFR ESTIMATED > 60; GLUCOSE 206 MG/DL (70-105); POTASSIUM 3.3 MMOL/L (3.6-5.0); SODIUM 142 MMOL/L (135-145)
[2018-07-09] MEDS: PANTOPRAZOLE 40 MG (PROTONIX) TAB PO SCH ×2 (06:39→20:52)
[2018-07-09] MEDS: CATHETER FLUSH 10 ML SYR IV SCH ×3 (06:39→23:11)
[2018-07-09] MEDS: SUCRALFATE 1 GM (CARAFATE) TAB PO SCH ×4 (06:39→20:51)
[2018-07-09] MEDS: inSUlin ASPART (NovoLOG) 1 UNIT/0.01 ML (CHARGE PER UNIT) SC SCH ×4 (06:40→20:42)
[2018-07-09] MEDS: PATCH REMOVAL TP SCH (09:00)
[2018-07-09] MEDS: ALPRAZolam 0.5 MG (XANAX) TAB PO SCH ×2 (09:35→20:51)
[2018-07-09] MEDS: PARoxetine 20 MG (PAXIL) TAB PO SCH ×2 (09:35→20:51)
[2018-07-09] MEDS: NICOTINE 21 MG (NICODERM) PATCH TD SCH (09:37)
[2018-07-09] MEDS: RT-ADVAIR HFA 115/21 MCG PER PUFF IH SCH ×2 (10:20→19:33)
[2018-07-09] MEDS: UMECLIDINIUM BROMIDE (INCRUSE ELLIPTA) 7'S IH SCH (10:21)
--- NOTE | 2018-07-09 10:51 | Progress Note ---
Subjective Date Seen by a Provider: Jul 09, 2018 Time Seen by a Provider: 10:49 Subjective/Events-last exam Patient with multiple duodenal ulcers by endoscopy. There is no active bleeding at time of endoscopy. Patient had a drop in hemoglobin and is being transfused currently. Patient denying any abdominal pain. He's had no bloody bowel movements. He denies any nausea vomiting fever sweats chills shortness of breath or chest pain. Focused Exam Lactate Level 07/07/18 03:10: Lactic Acid Level 3.06*H 07/07/18 05:12: Lactic Acid Level 2.40*H 07/07/18 11:40: Lactic Acid Level 0.99 Time of Focused Exam: 07:40 Objective Exam Vital Signs Date Time Temp Pulse Resp B/P (MAP) Pulse Ox O2 Delivery O2 Flow Rate FiO2 07/09/18 10:20 94 Room Air 07/09/18 09:00 98.1 100 20 120/61 Room Air 07/09/18 07:58 98.8 97 18 158/77 (104) 94 Room Air 07/09/18 07:00 100 07/09/18 04:11 99.3 101 20 109/56 (73) 65 Room Air 07/09/18 01:00 101 07/09/18 00:00 99.1 102 20 115/57 (76) 96 Room Air 07/08/18 21:35 99.4 103 18 116/55 (75) 98 Room Air 07/08/18 21:00 Room Air 07/08/18 20:00 99.4 103 18 116/55 (75) 98 Room Air 07/08/18 20:00 95 Room Air 07/08/18 19:00 105 07/08/18 16:23 Room Air 07/08/18 16:00 97.6 91 19 129/72 (91) 99 Room Air 07/08/18 14:00 96 28 122/69 (86) 96 Room Air 07/08/18 13:00 96 26 128/66 (86) 95 Room Air 07/08/18 13:00 98 07/08/18 12:00 99 Room Air 07/08/18 12:00 98.9 07/08/18 12:00 97 26 136/67 (90) 96 Room Air 07/08/18 11:00 99 35 124/69 (87) 94 Room Air I & O 07/09/18 06:59 Intake Total 3350 ml Output Total 1900 ml Balance 1450 ml Capillary Refill : Less Than 3 SecondsLess Than 3 Seconds General Appearance: No Apparent Distress, WD/WN HEENT: Normal ENT Inspection, Pharynx Normal Respiratory: Chest Non Tender, Decreased Breath Sounds Cardiovascular: Regular Rate, Rhythm, No Gallop, No Murmur Gastrointestinal: non tender, soft, no organomegaly, no pulsatile mass Extremity: Non Tender, Swelling (And moderate to severe pitting edema equal bilaterally) Neurologic/Psychiatric: Alert, Oriented x3, No Motor/Sensory Deficits, Normal Mood/Affect, basket sorter II-XII Norm as Tested Skin: Normal Color, Warm/Dry Results Lab Laboratory Tests 07/08/18 12:52: Glucometer 258H 07/08/18 15:41: Hemoglobin 7.1L, Hematocrit 22L 07/08/18 16:17: Glucometer 261H 07/08/18 21:23: Glucometer 312H 07/09/18 05:10: White Blood Count 7.9, Red Blood Count 1.89L, Hemoglobin 5.8*L, Hematocrit 18*L , Mean Corpuscular Volume 96, Mean Corpuscular Hemoglobin 31, Mean Corpuscular Hemoglobin Concent 32, Red Cell Distribution Width 17.4H, Platelet Count 187, Mean Platelet Volume 9.8, Sodium Level 142, Potassium Level 3.3L, Chloride Level 114H, Carbon Dioxide Level 21, Anion Gap 7, Blood Urea Nitrogen 22H, Creatinine 0.83, Estimat Glomerular Filtration Rate > 60, BUN/Creatinine Ratio 27, Glucose Level 206H, Calcium Level 7.5L 07/09/18 06:04: Glucometer 252H 07/09/18 08:48: Lab Scanned Report Transfusion Reaction Form Microbiology 07/07/18 Blood Culture - Preliminary, Resulted No growth 07/07/18 MRSA Screen - Final, Complete MRSA not isolated 07/06/18 Urine Culture - Final, Complete NO GROWTH Assessment/Plan Assessment/Plan Assessment/Plan Anemia, GI bleed causing anemia likely upper due to patient having black tarry stools recently Posttraumatic stress disorder Duodenal ulcers Patient on Protonix, Carafate Keep nothing by mouth. Follow hemoglobin and transfuse when necessary PRBC No surgical intervention needed at this time. We'll continue to follow. If continues to drop may need repeat endoscopy. Clinical Quality Measures DVT/VTE Risk/Contraindication: Risk Factor Score Per Nursin RFS Level Per Nursing on Admit: 4+=Very High JAVIER MARTINEZ DO Jul 09, 2018 10:51
[2018-07-09] MEDS ORDERED: KCL 20 MEQ TAB (K-DUR) PO NR (12:15)
[2018-07-09] MEDS: BENZONATATE 100 MG (TESSALON) CAPSULE PO PRN ×2 (12:19→20:56)
[2018-07-09] MEDS: ACETAMINOPHEN 500 MG TAB (TYLENOL) PO PRN (12:20)
--- NOTE | 2018-07-09 14:53 | Progress Note (SOAP) ---
Subjective Subjective/Events-last exam Afebrile, no acute events. He is bothered by continuous cough overnight that is mostly non-productive. He is also still concerned about his leg swelling. He is wanting to avoid many more tests today. Review of Systems Date Seen by Provider: Jul 09, 2018 Time Seen by Provider: 08:27 Focused Exam Lactate Level 07/07/18 03:10: Lactic Acid Level 3.06*H 07/07/18 05:12: Lactic Acid Level 2.40*H 07/07/18 11:40: Lactic Acid Level 0.99 Time of Focused Exam: 07:40 Objective Exam Last Set of Vital Signs Vital Signs Date Time Temp Pulse Resp B/P (MAP) Pulse Ox O2 Delivery O2 Flow Rate FiO2 07/09/18 13:00 99 07/09/18 12:00 98.7 18 134/54 (80) 95 Room Air Capillary Refill : Less Than 3 SecondsLess Than 3 Seconds I&O Intake and Output 07/09/18 00:00 Intake Total 3550 ml Output Total 2200 ml Balance 1350 ml Intake Oral 750 ml IV Total 2800 ml Output Urine Total 2200 ml General: Alert, No Acute Distress Lungs: Clear to Auscultation, Normal Air Movement Heart: Other (tachycardic) Abdomen: Normal Bowel Sounds, Soft Extremities: Other (1+ pitting edema to just above ankles) Neuro: Normal Speech Results/Procedures Lab Laboratory Tests 07/08/18 15:41: Hemoglobin 7.1L, Hematocrit 22L 07/08/18 16:17: Glucometer 261H 07/08/18 21:23: Glucometer 312H 07/09/18 05:10: Hemoglobin 5.8*L, Hematocrit 18*L, White Blood Count 7.9, Red Blood Count 1.89L , Mean Corpuscular Volume 96, Mean Corpuscular Hemoglobin 31, Mean Corpuscular Hemoglobin Concent 32, Red Cell Distribution Width 17.4H, Platelet Count 187, Mean Platelet Volume 9.8, Sodium Level 142, Potassium Level 3.3L, Chloride Level 114H, Carbon Dioxide Level 21, Anion Gap 7, Blood Urea Nitrogen 22H, Creatinine 0.83, Estimat Glomerular Filtration Rate > 60, BUN/Creatinine Ratio 27, Glucose Level 206H, Calcium Level 7.5L 07/09/18 06:04: Glucometer 252H 07/09/18 08:48: Lab Scanned Report Transfusion Reaction Form 07/09/18 11:15: Glucometer 240H 07/09/18 11:53: Lab Scanned Report Transfusion Reaction Form Microbiology 07/07/18 Blood Culture - Preliminary, Resulted No growth 07/07/18 MRSA Screen - Final, Complete MRSA not isolated 07/06/18 Urine Culture - Final, Complete NO GROWTH Radiology Assessment/Plan Assessment/Plan Assessment & Plan 1. GI Bleed Pt required another unit of PRBCs last night; Hgb stable for now. EGD with Acharya today. Consider colonoscopy outpatient, should EGD come back negative. 2. Right Foot Drop MRI showed only lumbar spondylosis. Not a strong explanation for his foot drop. No inciting event. 3. DM Type 2 Sliding scale Novolog. Observe. 4. Acute Kidney Injury Improved. Unknown hx. 5. Leukocytosis Unknown origin. Observe. (1) GI bleed Status: Acute Assessment & Plan: Pt required another unit of PRBCs last night; Hgb stable for now. EGD with Acharya today. Consider colonoscopy outpatient, should EGD come back negative. 07/09- EGD yesterday with large ulcers, not actively bleeding. Added sucralfate to pantoprazole but hemoglobin below 6 again this am. 2 units PRBCs, f/u after. Qualifiers: Qualified Codes: K92.2 - Gastrointestinal hemorrhage, unspecified (2) Hyperglycemia Status: Acute Assessment & Plan: sliding scale insulin, diabetic diet when taking PO (3) Leukocytosis Status: Resolved Assessment & Plan: Unclear etiology, no clear source of infection. Maybe reactive related to his GI bleed. 07/08 improving without antibiotics Qualifiers: Qualified Codes: D72.829 - Elevated white blood cell count, unspecified (4) Renal failure Status: Resolved Assessment & Plan: Unknown baseline renal function, suspect ALAN due to hypovolemia with acute GI bleed. Improving with IVF. Qualifiers: Qualified Codes: N19 - Unspecified kidney failure (5) Lower extremity edema Status: Acute Assessment & Plan: Venous insufficiency/immobility versus related to his kidney function. Consider echocardiogram pending clinical course. 07/09- complaining of cough as well, will obtain echocardiogram (6) Severe anemia Status: Acute Assessment & Plan: Pt required another unit of PRBCs last night. EGD with Acharya today. Consider colonscopy outpatient, should EGD come back negative. 07/09- hgb below 6 this am, 2 units prbc today, repeat hemoglobin after. (7) Hypokalemia Status: Resolved Assessment & Plan: Replace and recheck. (8) Lactic acidosis Status: Resolved Assessment & Plan: Unclear etiology with no source of infection. Improved with IVF. Denies abdominal pain to suggest ischemia. (9) Diabetes mellitus, type 2 Status: Chronic Assessment & Plan: Diabetic diet when taking oral. Sliding scale insulin. Qualifiers: (10) Urinary retention due to benign prostatic hyperplasia Status: Acute Assessment & Plan: Catheter placed 07/07 due to significant retention. 07/08 start Flomax, may need to d/c with liriano depending on course. (11) Right foot drop Status: Acute Assessment & Plan: MRI showed only lumbar spondylosis. No clear explanation for his foot drop. 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 (12) Poor appetite Status: Acute Assessment & Plan: Denies pain, concern for underlying serious condition given his anemia and weakness. Endoscopy recommended in vs outpatient depending on course. 07/08 EGD today 07/09 EGD yesterday with ulcers, treating with pantoprazole and sucralfate, biopsies pending (13) Leg weakness, bilateral Status: Acute Assessment & Plan: PT. (14) BPH (benign prostatic hyperplasia) Status: Chronic Assessment & Plan: Previously on medication, he stopped due to side effects. Qualifiers: (15) PTSD (post-traumatic stress disorder) Status: Chronic Assessment & Plan: Resume home medications. (16) COPD (chronic obstructive pulmonary disease) Status: Chronic Assessment & Plan: Resume home inhalers (17) DVT prophylaxis Status: Acute Assessment & Plan: No pharmacologic ppx with active bleed. SCDs. Clinical Quality Measures DVT/VTE Risk/Contraindication: Risk Factor Score Per Nursin RFS Level Per Nursing on Admit: 4+=Very High JOHN VILLALPANDO MD Jul 09, 2018 2:53 pm
--- NOTE | 2018-07-09 14:55 | Physical Therapy Daily Note ---
PT Daily Note-Current Subjective Patient in bed pre tx, agrees to PT, has unrated pain that patient is not willing to elaborate on. Appearance Patient BTB post tx with nurse call, phone, tray, all needs met. Mental Status Patient Orientation: Person, Place, Situation Attachments: Santiago Catheter, IV Transfers Functional [place] Measure 0=Not Assessed/NA 4=Minimal Assistance 1=Total Assistance 5=Supervision or Setup 2=Maximal Assistance 6=Modified [place] 3=Moderate Assistance 7=Complete IndependenceIRFPAI Quality Coding Scale 6 Independent with activity with or without an assistive device 5 Patient requires set up or clean up by helper. Patient completes activity by themselves 4 Supervision or touching assist (CGA). [place] provide cues , steadying assist 3 The helper provides less than half the effort to complete the activity 2 The helper provides more than half the effort to complete the activity 1 Dependent. The helper does all the effort to complete an activity 7 Patient refused to complete or attempt activity 9 The patient did not perform the activity before the current illness or injury 88 Not attempted due to Medical conditions or safety concerns Transfers (B, C, W/C) (FIM): 5 Scootin Rollin Supine to/from Sit: 6 Sit to/from Stand: 5 Bed to/from Chair: 5 Patient needs a few moments after sitting to the edge of the bed due to light headedness but it passes quickly. 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 Goals Mcc Goals PT Concrete Batch Plant Operator Goals Time Frame: Jul 14, 2018 Transfers (B,C,W/C) (FIM): 6 Gait (FIM): 6 Gait distance (FIM): 3=150 ft Gait Level of Assist: 6 Gait Assistive Device: FWW PT Plan Problem List Problem List: Activity Tolerance, Functional Strength, Safety, Balance, Gait, Transfer Treatment/Plan Treatment Plan: Continue Plan of Care Treatment Plan: Bed Mobility, Education, Functional Activity Michel, Functional Strength, Gait, Safety, Therapeutic Exercise, Transfers Treatment Duration: Jul 14, 2018 Frequency: 6 times per week Estimated Hrs Per Day: .5 hour per day Patient and/or Family Agrees t: Yes Safety Risks/Education Patient Education: Gait Training, Transfer Techniques, Correct Positioning, Safety Issues Teaching Recipient: Patient Teaching Methods: Demonstration, Discussion Response to Teaching: Reinforcement Needed Time/GCodes Time In: 1428 Time Out: 1446 Total Billed Treatment Time: 18 Total Billed Treatment 1 visit GT 18' CRISTÓBAL MONTEMAYOR PT Jul 09, 2018 14:55
--- NOTE | 2018-07-09 15:19 | Consultation-Cardiology ---
HPI-Cardiology Cardiology Consultation: Date of Consultation 07/09/18 Date of Admission Attending Physician Keara Moore MD Admitting Physician [facility] Consulting Physician Jose CHANDRA MD HPI: Time Seen by a Provider: 15:19 Chief Complaint: shortness of breath This is a 67 year old gentleman with history of active smoking, dm, htn, hyperlipidemia, no significant family history of cad. He presents with GI bleeding with severe anemia. EGD demonstrates large peptic ulcer with no bleeding. On aggressive PPI. However, H/H continues to drop, therefore still receiving blood transfusions. Echocardiogram shows severe LV dysfunction with anterior-apical hypokinesis. Patient c/o shortness of breath. No chest pain. No syncope/near syncope, palpitations. Bilateral lower extremity swelling. Review of Systems-Cardiology Review of Systems Constitutional: As described under HPI; No As described under HPI, No no symptoms reported, No chills, No fever, No lightheadedness Eyes: No As described under HPI, No no symptoms reported, No blindness, No blurred vision, No contact lenses, No drainage, No decreased acuity, No foreign body sensation, No pain, No vision change Ears/Nose/Throat: No As described under HPI, No no symptoms reported, No chronic hearing loss, No ear discharge, No ear pain, No nasal drainage, No ulcerations Respiratory: No no symptoms reported; As described under HPI; No As described under HPI, No cough, No orthopnea; shortness of breath; No SOB with excertion Cardiovascular: No no symptoms reported; As described under HPI; No As described under HPI, No chest pain; edema; No irregular heart rate, No lightheadedness, No palpitations Gastrointestinal: No no symptoms reported; As described under HPI; No abdomen distended, No abdominal pain, No blood streaked bowels, No constipation, No diarrhea, No nausea, No vomiting, No stool coloration changes Genitourinary: No As described under HPI, No burning, No dysuria, No discharge , No frequency, No flank pain, No hematuria, No urgency Musculoskeletal: No no symptoms reported, No As describe under HPI, No back pain, No gout, No joint pain, No joint swelling, No muscle pain, No muscle stiffness, No neck pain, No other Skin: No no symptoms reported, No As described under HPI, No change in color, No change in hair/nails, No dryness, No lesions, No lumps, No rash, No other, No skin related problems, No ulcerations, No rash on exposed areas, No ulcerations on exposed areas Psychiatric/Neurological: No anxiety, No depression, No seizure, No focal weakness, No syncope Hematologic: No bleeding abnormalities MFL-Ltcizj-Idivpi Hx Patient Social History Marrital Status: single Number of Children: 2 Employed/Student: unemployed Alcohol Use: Occasionally Uses ("2 drinks per year") Recreational Drug Use: No Smoking Status: Current Everyday Smoker (down to 1ppd. Hx of 3 ppd.) Type Used: Cigarettes Recent Foreign Travel: No Recent Infectious Disease Expo: No Hospitalization with Isolation: Denies Physical Abuse Screen: Yes Sexual Abuse: No Immunizations Up To Date Tetanus Booster (TDap): Unknown Date of Influenza Vaccine: May 24, 2018 Past Medical History PMH As described under Assessment. Allergies and Home Medications Allergies Coded Allergies: No Known Drug Allergies (Verified , 07/08/18) Home Medications Albuterol Sulfate 18 Gm Hfa.aer.ad, 2 PUFF INH Q4H PRN for SHORTNESS OF BREATH, (Reported) Alprazolam 0.5 Mg Tablet, 0.5 MG PO BID, (Reported) Budesonide/Formoterol Fumarate 10.2 Gm Hfa.aer.ad, 2 PUFF INH BID, (Reported) Chlorzoxazone 500 Mg Tablet, 500 MG PO BID, (Reported) Diphenhydramine HCl 25 Mg Capsule, 25 MG PO BID PRN for PANIC ATTACKS, (Reported ) Ibuprofen 200 Mg Tablet, 400 MG PO TID PRN for PAIN-MILD, (Reported) Insulin Detemir 100 Unit/1 Ml Insuln.pen, 10-14 UNITS SC HS, (Reported) Metformin HCl 500 Mg Tab.er.24h, 500 MG PO BID WITH MEALS, (Reported) Omeprazole 40 Mg Capsule.dr, 40 MG PO DAILY, (Reported) Paroxetine HCl 20 Mg Tablet, 10 MG PO BID, (Reported) TAKES 1/2 (10MG) TABLET Prednisone 20 Mg Tab, 40 MG PO DAILY, (Reported) TAKES 2 (20MG) TABLETS Umeclidinium [place] 62.5 Mcg Blst.w.dev, 1 PUFF INH DAILY PRN for PANIC ATTACKS , (Reported) Patient Home Medication List Home Medication List Reviewed: Yes Physical Exam-Cardiology Physical Exam Vital Signs/I&O 07/09/18 07/09/18 07/09/18 07/09/18 11:11 11:11 11:35 11:45 Temp 98.0 98.0 97.1 97.3 Pulse 98 98 98 97 Resp 18 18 19 20 B/P (MAP) 121/71 121/71 122/67 120/73 O2 Delivery Room Air Room Air Room Air Room Air 07/09/18 07/09/18 07/09/18 07/09/18 12:00 13:00 13:40 16:05 Temp 98.7 98.2 98.9 Pulse 99 99 97 90 Resp 18 19 18 B/P (MAP) 134/54 (80) 121/70 126/64 (84) Pulse Ox 95 97 O2 Delivery Room Air Room Air Room Air 07/09/18 07/09/18 07/09/18 18:59 19:30 19:33 Temp 96.2 Pulse 98 94 Resp 20 B/P (MAP) 110/66 (81) Pulse Ox 97 97 O2 Delivery Room Air Room Air 07/09/18 00:00 Intake Total 2020 ml Output Total 1050 ml Balance 970 ml Capillary Refill : Less Than 3 SecondsLess Than 3 Seconds Constitutional: appears stated age, AAO x 3; No apparent distress; well- developed, well-nourished HEENT: PERRL; No normal ENT inspection, No TMs normal, No pharynx normal, No scleral icterus (R), No scleral icterus (L), No pale conjunctivae (R); pale conjunctivae (L); No photophobia, No TM abnormal (R), No TM abnormal (L), No pharyngeal erythema, No tonsillar exudate, No other, No discharge, No EOMI; hearing is well preserved; No hard of hearing; oral hygience is good; No ulceration, No xanthelasmas are seen Neck: No non-tender, No full range of motion, No supple, No normal inspection, No carotid bruit, No limited range of motion, No lymphadenopathy (R), No lymphadenopathy (L), No tender lateral, No tender midline, No thyromegaly, No other; carotid pulses are 2 + bilaterally; No with good upstrokes Respiratory: No accessory muscle use, No respiratory distress, No chest tender , No chest expansion is symmetric; chest is bilaterally symmetric; No lungs clear to percussion; lungs clear to auscultation; No crackles, No rhonchi, No rales, No stridor, No wheezing, No pleural rub, No other Cardiovascular: regular rate-rhythm; No irregularly irregular, No extra beats, No parasternal heave is noted, No JVD, No edema, No bradycardia, No tachycardia , No point of maximal impulse, No cardiac thrills are palpable; S1 and S2; No gallop/S3, No gallop/S4, No diastolic murmur, No systolic murmur, No friction rub, No click, No other Gastrointestinal: No tender, No soft, No round, No distended, No pulsatile mass , No organomegaly, No guarding, No rebound, No tenderness, No hernia, No mass, No audible bowel sounds, No abnormal bowel sounds, No abdominal bruits, No spleenomegaly, No other Rectal: deferred Extremities: pedal edema; No clubbing, No cyanosis, No significant edema Neurologic/Psychiatric: no motor/sensory deficits, alert, normal mood/affect, oriented x 3, power is 5/5 both on sides Skin: No normal color, No warm/dry, No cyanosis, No cool, No diaphoresis, No damp, No ecchymosis, No jaundice, No mottled; pallor; No rash, No tattoos/ piercings, No ulcerations, No rash on exposed areas, No ulcerations on exposed areas, No other Lymphatic: no adenopathy Data Review Labs Laboratory Tests 07/09/18 05:10: White Blood Count 7.9, Red Blood Count 1.89L, Hemoglobin 5.8*L, Hematocrit 18*L , Mean Corpuscular Volume 96, Mean Corpuscular Hemoglobin 31, Mean Corpuscular Hemoglobin Concent 32, Red Cell Distribution Width 17.4H, Platelet Count 187, Mean Platelet Volume 9.8, Sodium Level 142, Potassium Level 3.3L, Chloride Level 114H, Carbon Dioxide Level 21, Anion Gap 7, Blood Urea Nitrogen 22H, Creatinine 0.83, Estimat Glomerular Filtration Rate > 60, BUN/Creatinine Ratio 27, Glucose Level 206H, Calcium Level 7.5L 07/09/18 06:04: Glucometer 252H 07/09/18 08:48: Lab Scanned Report Transfusion Reaction Form 07/09/18 11:15: Glucometer 240H 07/09/18 11:53: Lab Scanned Report Transfusion Reaction Form 07/09/18 15:55: Hemoglobin 7.9#L, Hematocrit 24L 07/09/18 16:04: Glucometer 222H 07/09/18 20:33: Glucometer 177H Microbiology 07/07/18 Blood Culture - Preliminary, Resulted No growth 07/07/18 MRSA Screen - Final, Complete MRSA not isolated 07/06/18 Urine Culture - Final, Complete NO GROWTH A/P-Cardiology Assessment/Admission Diagnosis Active GI bleeding, Severe Peptic ulcer disease, Severe cardiomyopathy, Smoking, HTN, DM, Hyperlipidemia, Hypokalemia, CKD, Leg discomfort, Aortic insufficiency, ASD, Acute diastolic CHF, Pulmonary HTN, COPD Plan Active GI bleeding, on PPI and sucrafate. receiving PRBCs. Hb today 5.8. Severe Peptic ulcer disease, Severe cardiomyopathy, LVEF on Echo today 25% with anterior/apical hypokinesis. very likely due to CAD. Coronary angiography and intervention is recommended, however contraindicated with active GI bleeding and anemia. Caution with IV fluids. start lisinopril 5mg daily and metoprolol 25mg twice daily. cannot give aspirin or plavix for now. if bleeding can be addressed; we may be able to perform Coronary angiography. EKG in am. Lifevest for primary prevention of sudden cardiac , before discharge. Smoking - smoking cessation was strongly recommended. HTN, lisinopril and BB. DM, continue metformin for now. Hyperlipidemia, will start statin. check lipid profile in am. Hypokalemia, CKD; Diabetic nephropathy likely. Leg discomfort, likely PAD. work up as an outpatient. Aortic insufficiency, follow clinically. 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 Acute diastolic CHF, pseudonormal diastolic dysfunction. caution with IV fluids. Pulmonary HTN, likely secondary to COPD. COPD, defer to primary team. Thank you for your consultation. Please call me if you have any questions. Kusum Chandra MD, FACP, FACC, FSCAI, FHRS, CCDS Interventional Cardiology Cardiac Electrophysiology Vascular Medicine and Endovascular Interventions Clinical Quality Measures DVT/VTE Risk/Contraindication: Risk Factor Score Per Nursin RFS Level Per Nursing on Admit: 4+=Very High Jose CHANDRA MD Jul 09, 2018 3:19 pm
[2018-07-09 16:22] LABS: HEMOGLOBIN 7.9 G/DL (13.3-17.7)
[2018-07-09] MEDS: TAMSULOSIN 0.4 MG (FLOMAX) CAP PO SCH (18:09)
[2018-07-10] VITALS: BP 107/60
[2018-07-10 04:00] VITALS: BP 119/63
[2018-07-10 04:20] LABS: MEAN PLATELET VOLUME 9.6 FL (7.4-10.4); RED BLOOD COUNT 2.9 10^6/uL (4.35-5.85); RED CELL DISTRIBUTION WIDTH 18.4 % (10.0-14.5); WHITE BLOOD COUNT 9.4 10^3/uL (4.3-11.0)
[2018-07-10] MEDS: BENZONATATE 100 MG (TESSALON) CAPSULE PO PRN ×2 (04:26→21:49)
[2018-07-10] MEDS: diphenhydrAMINE 25 MG TAB (BENADRYL) PO PRN ×2 (04:26→21:49)
[2018-07-10 04:37] LABS: CHOLESTEROL 101 MG/DL (< 200); HDL CHOLESTEROL 38 MG/DL (40-60); TRIGLYCERIDES 103 MG/DL (<150); VLDL CHOLESTEROL 21 MG/DL (5-40)
[2018-07-10] MEDS: SUCRALFATE 1 GM (CARAFATE) TAB PO SCH ×4 (07:28→21:49)
[2018-07-10] MEDS: inSUlin ASPART (NovoLOG) 1 UNIT/0.01 ML (CHARGE PER UNIT) SC SCH ×4 (07:28→21:50)
[2018-07-10] MEDS: CATHETER FLUSH 10 ML SYR IV SCH ×3 (07:28→22:00)
[2018-07-10] MEDS: RT-ADVAIR HFA 115/21 MCG PER PUFF IH SCH ×2 (07:37→19:34)
[2018-07-10] MEDS: UMECLIDINIUM BROMIDE (INCRUSE ELLIPTA) 7'S IH SCH (07:38)
[2018-07-10 08:00] VITALS: BP 134/64
[2018-07-10] MEDS: PANTOPRAZOLE 40 MG (PROTONIX) TAB PO SCH ×2 (09:06→21:49)
[2018-07-10] MEDS: PARoxetine 20 MG (PAXIL) TAB PO SCH ×2 (09:06→21:49)
[2018-07-10] MEDS: ALPRAZolam 0.5 MG (XANAX) TAB PO SCH ×2 (09:06→21:49)
[2018-07-10] MEDS: NICOTINE 21 MG (NICODERM) PATCH TD SCH (09:07)
[2018-07-10] MEDS: lisINopril 5 MG (PRINIVIL) TABLET PO SCH (09:07)
[2018-07-10] MEDS: PATCH REMOVAL TP SCH (09:09)
--- NOTE | 2018-07-10 10:02 | Physical Therapy Daily Note ---
PT Daily Note-Current Subjective Pt reports feeling very very tired, not getting any sleep and not getting anything to eat Pain Numeric Pain Scale: 8 Location Body Site: Sacrum Comment: states pain like sitting on it too long Appearance Pt supine in bed with and HOB elevated upon arrival At end of session, Pt supine in bed with HOB elevated per request to help him to breath easier Mental Status Attachments: Oxygen, Santiago Catheter, IV Transfers Functional [place] Measure 0=Not Assessed/NA 4=Minimal Assistance 1=Total Assistance 5=Supervision or Setup 2=Maximal Assistance 6=Modified [place] 3=Moderate Assistance 7=Complete IndependenceIRFPAI Quality Coding Scale 6 Independent with activity with or without an assistive device 5 Patient requires set up or clean up by helper. Patient completes activity by themselves 4 Supervision or touching assist (CGA). [place] provide cues , steadying assist 3 The helper provides less than half the effort to complete the activity 2 The helper provides more than half the effort to complete the activity 1 Dependent. The helper does all the effort to complete an activity 7 Patient refused to complete or attempt activity 9 The patient did not perform the activity before the current illness or injury 88 Not attempted due to Medical conditions or safety concerns Transfers (B, C, W/C) (FIM): 5 Scootin Rollin Supine to/from Sit: 5 Sit to/from Stand: 5 Verb inst required for hand placement and safety during sit to from stand transfers to FWW Exercises Standing: Heel/toe raises, 3 way Ex=Flex, Abd, Ext, Marching, Mini squats, Sit to Stand, Weight shifts Standing Reps: 10 pt sat at EOB after each standing ex performed Treatments Ex, Transfer training Assessment Current Status: Fair Progress PT Senior Living Goals 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 Engineer Goals PT Senior Living Goals Time Frame: Jul 14, 2018 Transfers (B,C,W/C) (FIM): 6 Gait (FIM): 6 Gait distance (FIM): 3=150 ft Gait Level of Assist: 6 Gait Assistive Device: FWW PT Plan Problem List Problem List: Activity Tolerance, Functional Strength, Safety, Gait, Transfer, Bed Mobility Treatment/Plan Treatment Plan: Continue Plan of Care Treatment Plan: Bed Mobility, Education, Functional Activity Michel, Functional Strength, Gait, Safety, Therapeutic Exercise, Transfers Treatment Duration: Jul 14, 2018 Frequency: 6 times per week Estimated Hrs Per Day: .5 hour per day Patient and/or Family Agrees t: Yes Safety Risks/Education Patient Education: Transfer Techniques, Safety Issues Teaching Recipient: Patient Teaching Methods: Demonstration, Discussion Response to Teaching: Verbalize Understanding, Return Demonstration, Reinforcement Needed Time/GCodes Time In: 939 Time Out: 956 Total Billed Treatment Time: 17 Total Billed Treatment 1 Visit FA x1 ANNY BEARD DIRECTOR SURFACE TRANSPORTATION Jul 10, 2018 10:02
[2018-07-10] MEDS: ACETAMINOPHEN 500 MG TAB (TYLENOL) PO PRN (10:12)
--- NOTE | 2018-07-10 11:29 | Progress Note ---
Subjective Time Seen by a Provider: 11:16 Subjective/Events-last exam Pt seen and examined, states he has a little nausea but he is hungry. He is tired but just woke up from nap. Pt denies any abdominal pain and states he has not had BM since Thursday. Review of Systems General: No Chills, No Night Sweats Pulmonary: No Dyspnea, No Cough Cardiovascular: No: Chest Pain, Palpitations Gastrointestinal: Nausea; No: Vomiting, Abdominal Pain Focused Exam Lactate Level 07/07/18 11:40: Lactic Acid Level 0.99 Time of Focused Exam: 07:40 Objective Exam Vital Signs Date Time Temp Pulse Resp B/P (MAP) Pulse Ox O2 Delivery O2 Flow Rate FiO2 07/10/18 09:00 Room Air 07/10/18 08:00 98.4 89 22 134/64 (87) 96 Room Air 07/10/18 07:39 93 Room Air 07/10/18 07:00 90 07/10/18 04:00 97.5 84 20 119/63 (81) 96 Room Air 07/10/18 01:00 93 07/10/18 00:00 99.5 88 21 107/60 (76) 97 Room Air 07/09/18 21:00 Room Air 07/09/18 19:33 97 Room Air 07/09/18 19:30 96.2 94 20 110/66 (81) 97 Room Air 07/09/18 18:59 98 07/09/18 16:05 98.9 90 18 126/64 (84) 97 Room Air 07/09/18 13:40 98.2 97 19 121/70 Room Air 07/09/18 13:00 99 07/09/18 12:00 98.7 99 18 134/54 (80) 95 Room Air 07/09/18 11:45 97.3 97 20 120/73 Room Air 07/09/18 11:35 97.1 98 19 122/67 Room Air I & O 07/10/18 07:00 Intake Total 2360 ml Output Total 725 ml Balance 1635 ml Capillary Refill : Less Than 3 SecondsLess Than 3 Seconds General Appearance: No Apparent Distress, WD/WN HEENT: Pharynx Normal; No Scleral Icterus (L), No Scleral Icterus (R) Respiratory: Chest Non Tender, No Accessory Muscle Use, No Respiratory Distress , Decreased Breath Sounds Cardiovascular: Regular Rate, Rhythm, No Gallop, No Murmur Gastrointestinal: non tender, soft, no organomegaly, no pulsatile mass Extremity: Non Tender, Swelling (And moderate to severe pitting edema equal bilaterally) Neurologic/Psychiatric: Alert, Oriented x3, No Motor/Sensory Deficits, Normal Mood/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, 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 Skin: Normal Color, Warm/Dry Results Lab Laboratory Tests 07/09/18 11:53: Lab Scanned Report Transfusion Reaction Form 07/09/18 15:55: Hemoglobin 7.9#L, Hematocrit 24L 07/09/18 16:04: Glucometer 222H 07/09/18 20:33: Glucometer 177H 07/10/18 04:05: White Blood Count 9.4, Red Blood Count 2.90L, Hemoglobin 9.0L, Hematocrit 27L, Mean Corpuscular Volume 94, Mean Corpuscular Hemoglobin 31, Mean Corpuscular Hemoglobin Concent 33, Red Cell Distribution Width 18.4H, Platelet Count 210, Mean Platelet Volume 9.6, Troponin I < 0.30, B-Type Natriuretic Peptide 992.5H, Triglycerides Level 103, Cholesterol Level 101, LDL Cholesterol Direct 38, VLDL Cholesterol 21, HDL Cholesterol 38L 07/10/18 05:42: Glucometer 217H 07/10/18 11:09: Glucometer 204H Microbiology 07/07/18 Blood Culture - Preliminary, Resulted No growth 07/07/18 MRSA Screen - Final, Complete MRSA not isolated 07/06/18 Urine Culture - Final, Complete NO GROWTH Assessment/Plan Assessment/Plan Assessment/Plan Anemia with GI bleed most likely upper due to patient having black tarry stools recently Posttraumatic stress disorder Duodenal ulcers - no signs of active bleed seen during EGD Patient on Protonix, Carafate, will try restarting clear liquids ok to have some milk. Check H/H Q24 unless he has worsening symptoms; will continue to follow. If continues to drop may need repeat endoscopy; possibly lower as well as upper. Will give pt a dulcolax suppository. Clinical Quality Measures DVT/VTE Risk/Contraindication: Risk Factor Score Per Nursin RFS Level Per Nursing on Admit: 4+=Very High ALEXA KENDALL DO Jul 10, 2018 11:29
[2018-07-10] MEDS ORDERED: BISACODYL 10 MG SUPP (DULCOLAX) PR NR (11:30)
[2018-07-10 12:00] VITALS: BP 105/62
--- NOTE | 2018-07-10 14:31 | Cardiology Progress Note ---
Cardiology SOAP Progress Note Subjective: Patient feels better. Objective: I&O/Vital Signs 07/10/18 07/10/18 07/10/18 07/10/18 04:00 07:00 07:39 08:00 Temp 97.5 98.4 Pulse 84 90 89 Resp 20 22 B/P (MAP) 119/63 (81) 134/64 (87) Pulse Ox 96 93 96 O2 Delivery Room Air Room Air Room Air 07/10/18 07/10/18 07/10/18 09:00 12:00 13:00 Temp 98.6 Pulse 72 79 Resp 20 B/P (MAP) 105/62 (76) Pulse Ox 98 O2 Delivery Room Air Nasal Cannula O2 Flow Rate 2.00 07/10/18 00:00 Intake Total 2360 ml Output Total 525 ml Balance 1835 ml Weight (Pounds): 170 Weight (Ounces): 2.0 Weight (Calculated Kilograms): 77.568151 Constitutional: appears stated age, AAO x 3; No apparent distress; well- developed, well-nourished Respiratory: No accessory muscle use, No respiratory distress, No chest tender , No chest expansion is symmetric; chest is bilaterally symmetric; No lungs clear to percussion; lungs clear to auscultation; No crackles, No rhonchi, No rales, No stridor, No wheezing, No pleural rub, No other Cardiovascular: regular rate-rhythm; No irregularly irregular, No extra beats, No parasternal heave is noted, No JVD, No edema, No bradycardia, No tachycardia , No point of maximal impulse, No cardiac thrills are palpable; S1 and S2; No gallop/S3, No gallop/S4, No diastolic murmur, No systolic murmur, No friction rub, No click, No other Gastrointestional: No tender, No soft, No round, No distended, No pulsatile mass, No organomegaly, No guarding, No rebound, No tenderness, No hernia, No mass, No audible bowel sounds, No abnormal bowel sounds, No abdominal bruits, No spleenomegaly, No other Extremities: pedal edema; No clubbing, No cyanosis, No significant edema Neurologic/Psychiatric: no motor/sensory deficits, alert, normal mood/affect, oriented x 3, power is 5/5 both on sides Skin: No normal color, No warm/dry, No cyanosis, No cool, No diaphoresis, No damp, No ecchymosis, No jaundice, No mottled; pallor; No rash, No tattoos/ piercings, No ulcerations, No rash on exposed areas, No ulcerations on exposed areas, No other Results/Procedures: Labs Laboratory Tests 07/09/18 15:55: Hemoglobin 7.9#L, Hematocrit 24L 07/09/18 16:04: Glucometer 222H 07/09/18 20:33: Glucometer 177H 07/10/18 04:05: Hemoglobin 9.0L, Hematocrit 27L, White Blood Count 9.4, Red Blood Count 2.90L, Mean Corpuscular Volume 94, Mean Corpuscular Hemoglobin 31, Mean Corpuscular Hemoglobin Concent 33, Red Cell Distribution Width 18.4H, Platelet Count 210, Mean Platelet Volume 9.6, Troponin I < 0.30, B-Type Natriuretic Peptide 992.5H, Triglycerides Level 103, Cholesterol Level 101, LDL Cholesterol Direct 38, VLDL Cholesterol 21, HDL Cholesterol 38L 07/10/18 05:42: Glucometer 217H 07/10/18 11:09: Glucometer 204H Microbiology 07/07/18 Blood Culture - Preliminary, Resulted No growth 07/07/18 MRSA Screen - Final, Complete MRSA not isolated 07/06/18 Urine Culture - Final, Complete NO GROWTH A/P: Assessment/Dx: Active GI bleeding, Severe Peptic ulcer disease, Severe cardiomyopathy, Smoking, HTN, DM, Hyperlipidemia, Hypokalemia, CKD, Leg discomfort, Aortic insufficiency, ASD, Acute diastolic CHF, Pulmonary HTN, COPD Plan: Active GI bleeding, on PPI and sucrafate. received PRBCs. Hb improved. Severe Peptic ulcer disease, Severe cardiomyopathy, LVEF on Echo today 25% with anterior/apical hypokinesis. very likely due to CAD. Coronary angiography and intervention is recommended, however contraindicated with active GI bleeding and anemia. Caution with IV fluids. start lisinopril 5mg daily and metoprolol 25mg twice daily. cannot give aspirin or plavix for now. if bleeding can be addressed; we may be able to perform Coronary angiography. EKG in am. Lifevest for primary prevention of sudden cardiac , before discharge. Smoking - smoking cessation was strongly recommended. HTN, lisinopril and BB. DM, continue metformin for now. Hyperlipidemia, will start statin. check lipid profile in am. Hypokalemia, CKD; Diabetic nephropathy likely. Leg discomfort, likely PAD. work up as an outpatient. Aortic insufficiency, follow clinically. 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 Acute diastolic CHF, pseudonormal diastolic dysfunction. caution with IV fluids. Pulmonary HTN, likely secondary to COPD. COPD, defer to primary team. Thank you for your consultation. Please call me if you have any questions. Kusum Chandra MD, FACP, FACC, FSCAI, FHRS, CCDS Interventional Cardiology Cardiac Electrophysiology Vascular Medicine and Endovascular Interventions Focused Exam Time of Focused Exam: 07:40 Jose CHANDRA MD Jul 10, 2018 2:31 pm
[2018-07-10 15:50] VITALS: BP 105/59
[2018-07-10] MEDS ORDERED: KCL 20 MEQ TAB (K-DUR) PO NR (16:30)
--- NOTE | 2018-07-10 16:38 | Progress Note (SOAP) ---
Subjective Subjective/Events-last exam Patient stable this AM. States that he is having some abdominal pain. Denies N/ V. No blood in stool. No BM since admission. Review of Systems Date Seen by Provider: Jul 10, 2018 Time Seen by Provider: 10:30 Pulmonary: Dyspnea Cardiovascular: Palpitations, Edema; No: Chest Pain Gastrointestinal: Nausea, Abdominal Pain, Constipation; No: Vomiting Neurological: Weakness Focused Exam Time of Focused Exam: 07:40 Objective Exam Last Set of Vital Signs Vital Signs Date Time Temp Pulse Resp B/P (MAP) Pulse Ox O2 Delivery O2 Flow Rate FiO2 07/10/18 13:00 79 07/10/18 12:00 98.6 20 105/62 (76) 98 Nasal Cannula 2.00 Capillary Refill : Less Than 3 SecondsLess Than 3 Seconds I&O Intake and Output 07/10/18 00:00 Intake Total 2660 ml Output Total 1025 ml Balance 1635 ml Intake Oral 660 ml IV Total 2000 ml Output Urine Total 1025 ml General: Alert, Oriented X3, Cooperative, No Acute Distress HEENT: Mucous Memb Moist/[place] Lungs: Clear to Auscultation, Normal Air Movement Heart: Regular Rate, No Murmurs Abdomen: Normal Bowel Sounds, Soft, Other (mild abdominal tenderness diffusely across abdomen) Neuro: Normal Speech, Cranial Nerves 3-12 NL Results/Procedures Lab Laboratory Tests 07/09/18 20:33: Glucometer 177H 07/10/18 04:05: White Blood Count 9.4, Red Blood Count 2.90L, Hemoglobin 9.0L, Hematocrit 27L, Mean Corpuscular Volume 94, Mean Corpuscular Hemoglobin 31, Mean Corpuscular Hemoglobin Concent 33, Red Cell Distribution Width 18.4H, Platelet Count 210, Mean Platelet Volume 9.6, Troponin I < 0.30, B-Type Natriuretic Peptide 992.5H, Triglycerides Level 103, Cholesterol Level 101, LDL Cholesterol Direct 38, VLDL Cholesterol 21, HDL Cholesterol 38L 07/10/18 05:42: Glucometer 217H 07/10/18 11:09: Glucometer 204H 07/10/18 15:52: Glucometer 179H Microbiology 07/07/18 Blood Culture - Preliminary, Resulted No growth 07/07/18 MRSA Screen - Final, Complete MRSA not isolated 07/06/18 Urine Culture - Final, Complete NO GROWTH Radiology Assessment/Plan Assessment/Plan Assessment & Plan 1. GI Bleed Pt required another unit of PRBCs last night; Hgb stable for now. EGD with Acharya today. Consider colonoscopy outpatient, should EGD come back negative. 2. Right Foot Drop MRI showed only lumbar spondylosis. Not a strong explanation for his foot drop. No inciting event. 3. DM Type 2 Sliding scale Novolog. Observe. 4. Acute Kidney Injury Improved. Unknown hx. 5. Leukocytosis Unknown origin. Observe. (1) GI bleed Status: Acute Assessment & Plan: Pt required another unit of PRBCs last night; Hgb stable for now. EGD with Acharya today. Consider colonoscopy outpatient, should EGD come back negative. 07/09- EGD yesterday with large ulcers, not actively bleeding. Added sucralfate to pantoprazole but hemoglobin below 6 again this am. 2 units PRBCs, f/u after. 07/10- No vomiting, Hgb stable since transfusion, if continues to be stable would be stable for cath Thursday, Will advance diet today per surgery recommendations Qualifiers: Qualified Codes: K92.2 - Gastrointestinal hemorrhage, unspecified (2) Acute systolic CHF (congestive heart failure) Status: Acute Assessment & Plan: 07/10: Echo with EF 25%, plan for cath when anemia is stable (3) Hyperglycemia Status: Acute Assessment & Plan: sliding scale insulin, diabetic diet when taking PO 07/10: A1c pending (4) Leukocytosis Status: Resolved Assessment & Plan: Unclear etiology, no clear source of infection. Maybe reactive related to his GI bleed. 07/08 improving without antibiotics Qualifiers: Qualified Codes: D72.829 - Elevated white blood cell count, unspecified (5) Renal failure Status: Resolved Assessment & Plan: Unknown baseline renal function, suspect ALAN due to hypovolemia with acute GI bleed. Improving with IVF. Qualifiers: Qualified Codes: N19 - Unspecified kidney failure (6) Lower extremity edema Status: Acute Assessment & Plan: Venous insufficiency/immobility versus related to his kidney function. Consider echocardiogram pending clinical course. 07/09- complaining of cough as well, will obtain echocardiogram 07/10- Abnormal echo, EF 25%, cardiology following (7) Severe anemia Status: Acute Assessment & Plan: Pt required another unit of PRBCs last night. EGD with Acharya today. Consider colonscopy outpatient, should EGD come back negative. 07/09- hgb below 6 this am, 2 units prbc today, repeat hemoglobin after. (8) Hypokalemia Status: Resolved Assessment & Plan: Replace and recheck. (9) Lactic acidosis Status: Resolved Assessment & Plan: Unclear etiology with no source of infection. Improved with IVF. Denies abdominal pain to suggest ischemia. (10) Diabetes mellitus, type 2 Status: Chronic Assessment & Plan: Diabetic diet when taking oral. Sliding scale insulin. Qualifiers: (11) Urinary retention due to benign prostatic hyperplasia Status: Acute Assessment & Plan: Catheter placed 07/07 due to significant retention. 07/08 start Flomax, may need to d/c with liriano depending on course. (12) Right foot drop Status: Acute Assessment & Plan: MRI showed only lumbar spondylosis. No clear explanation for his foot drop. 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 (13) Poor appetite Status: Acute Assessment & Plan: Denies pain, concern for underlying serious condition given his anemia and weakness. Endoscopy recommended in vs outpatient depending on course. 07/08 EGD today 07/09 EGD yesterday with ulcers, treating with pantoprazole and sucralfate, biopsies pending (14) Leg weakness, bilateral Status: Acute Assessment & Plan: PT. (15) BPH (benign prostatic hyperplasia) Status: Chronic Assessment & Plan: Previously on medication, he stopped due to side effects. Qualifiers: (16) PTSD (post-traumatic stress disorder) Status: Chronic Assessment & Plan: Resume home medications. (17) COPD (chronic obstructive pulmonary disease) Status: Chronic Assessment & Plan: Resume home inhalers (18) DVT prophylaxis Status: Acute Assessment & Plan: No pharmacologic ppx with active bleed. SCDs. Clinical Quality Measures DVT/VTE Risk/Contraindication: Risk Factor Score Per Nursin RFS Level Per Nursing on Admit: 4+=Very High GENNA DUMONT MD Jul 10, 2018 16:38
[2018-07-10] MEDS: TAMSULOSIN 0.4 MG (FLOMAX) CAP PO SCH (17:23)
[2018-07-10 19:30] VITALS: BP 117/61
[2018-07-11] VITALS: BP 102/58
[2018-07-11 04:00] VITALS: BP 117/63
[2018-07-11] MEDS: SUCRALFATE 1 GM (CARAFATE) TAB PO SCH ×4 (06:12→21:04)
[2018-07-11] MEDS: BENZONATATE 100 MG (TESSALON) CAPSULE PO PRN (06:12)
[2018-07-11] MEDS: CATHETER FLUSH 10 ML SYR IV SCH ×3 (06:13→21:04)
[2018-07-11] MEDS: inSUlin ASPART (NovoLOG) 1 UNIT/0.01 ML (CHARGE PER UNIT) SC SCH ×4 (06:13→21:04)
[2018-07-11 06:31] LABS: BASOPHILS % (AUTO) 0 % (0-10); EOSINOPHILS # (AUTO) 0.1 10^3/uL (0.0-0.3); EOSINOPHILS % (AUTO) 1 % (0-10); HEMATOCRIT 27 % (40-54); HEMOGLOBIN 8.8 G/DL (13.3-17.7); LYMPHOCYTES # (AUTO) 1.1 X 10^3 (1.0-4.0); LYMPHOCYTES % (AUTO) 11 % (12-44); MEAN CORPUSCULAR HEMOGLOBIN 31 PG (25-34); MEAN CORPUSCULAR HGB CONC 33 G/DL (32-36); MEAN CORPUSCULAR VOLUME 95 FL (80-99); MEAN PLATELET VOLUME 9.8 FL (7.4-10.4); MONOCYTES # (AUTO) 0.4 X 10^3 (0.0-1.0); MONOCYTES % (AUTO) 4 % (0-12); NEUTROPHILS # (AUTO) 7.7 X 10^3 (1.8-7.8); NEUTROPHILS % (AUTO) 83 % (42-75); PLATELET COUNT 230 10^3/uL (130-400); RED BLOOD COUNT 2.82 10^6/uL (4.35-5.85); RED CELL DISTRIBUTION WIDTH 18.8 % (10.0-14.5); WHITE BLOOD COUNT 9.3 10^3/uL (4.3-11.0)
[2018-07-11 06:58] LABS: ALANINE AMINOTRANSFERASE 25 U/L (0-55); ALBUMIN 2.8 GM/DL (3.2-4.5); ALKALINE PHOSPHATASE 79 U/L (40-136); BILIRUBIN,TOTAL 0.5 MG/DL (0.1-1.0); BUN/CREATININE RATIO 17; CALCIUM 8.3 MG/DL (8.5-10.1); CARBON DIOXIDE 20 MMOL/L (21-32); CHLORIDE 109 MMOL/L (98-107); CREATININE SERUM 0.89 MG/DL (0.60-1.30); GFR ESTIMATED > 60; GLUCOSE 194 MG/DL (70-105); POTASSIUM 4.3 MMOL/L (3.6-5.0); SODIUM 136 MMOL/L (135-145); TOTAL PROTEIN 4.6 GM/DL (6.4-8.2)
[2018-07-11] MEDS: RT-ADVAIR HFA 115/21 MCG PER PUFF IH SCH ×2 (07:28→19:47)
[2018-07-11] MEDS: UMECLIDINIUM BROMIDE (INCRUSE ELLIPTA) 7'S IH SCH (07:30)
[2018-07-11 08:00] VITALS: BP 124/68
[2018-07-11] MEDS: PANTOPRAZOLE 40 MG (PROTONIX) TAB PO SCH ×2 (09:01→21:04)
[2018-07-11] MEDS: lisINopril 5 MG (PRINIVIL) TABLET PO SCH (09:01)
[2018-07-11] MEDS: PATCH REMOVAL TP SCH (09:02)
[2018-07-11] MEDS: PARoxetine 20 MG (PAXIL) TAB PO SCH ×2 (09:02→21:04)
[2018-07-11] MEDS: NICOTINE 21 MG (NICODERM) PATCH TD SCH (09:02)
[2018-07-11] MEDS: ALPRAZolam 0.5 MG (XANAX) TAB PO SCH ×2 (09:02→21:04)
[2018-07-11 12:00] VITALS: BP 115/61
--- NOTE | 2018-07-11 12:56 | Cardiology Progress Note ---
Cardiology SOAP Progress Note Subjective: Improved shortness of breath. Objective: I&O/Vital Signs 07/11/18 07/11/18 07/11/18 07/11/18 01:00 04:00 07:00 07:30 Temp 97.7 Pulse 78 79 83 Resp 20 B/P (MAP) 117/63 (81) Pulse Ox 100 99 O2 Delivery Nasal Cannula Nasal Cannula O2 Flow Rate 2.00 4.00 07/11/18 07/11/18 08:00 09:00 Temp 98.2 Pulse 76 Resp 22 B/P (MAP) 124/68 (86) Pulse Ox 94 O2 Delivery Nasal Cannula Room Air O2 Flow Rate 2.00 07/11/18 00:00 Intake Total 660 ml Output Total 600 ml Balance 60 ml Weight (Pounds): 169 Weight (Ounces): 2.0 Weight (Calculated Kilograms): 76.171345 Constitutional: appears stated age, AAO x 3; No apparent distress; well- developed, well-nourished Respiratory: No accessory muscle use, No respiratory distress, No chest tender , No chest expansion is symmetric; chest is bilaterally symmetric; No lungs clear to percussion; lungs clear to auscultation; No crackles, No rhonchi, No rales, No stridor, No wheezing, No pleural rub, No other Cardiovascular: regular rate-rhythm; No irregularly irregular, No extra beats, No parasternal heave is noted, No JVD, No edema, No bradycardia, No tachycardia , No point of maximal impulse, No cardiac thrills are palpable; S1 and S2; No gallop/S3, No gallop/S4, No diastolic murmur, No systolic murmur, No friction rub, No click, No other Gastrointestional: No tender, No soft, No round, No distended, No pulsatile mass, No organomegaly, No guarding, No rebound, No tenderness, No hernia, No mass, No audible bowel sounds, No abnormal bowel sounds, No abdominal bruits, No spleenomegaly, No other Extremities: pedal edema; No clubbing, No cyanosis, No significant edema Neurologic/Psychiatric: no motor/sensory deficits, alert, normal mood/affect, oriented x 3, power is 5/5 both on sides Skin: No normal color, No warm/dry, No cyanosis, No cool, No diaphoresis, No damp, No ecchymosis, No jaundice, No mottled; pallor; No rash, No tattoos/ piercings, No ulcerations, No rash on exposed areas, No ulcerations on exposed areas, No other Results/Procedures: Labs Laboratory Tests 07/10/18 15:52: Glucometer 179H 07/10/18 20:00: Glucometer 249H 07/11/18 05:42: Glucometer 204H 07/11/18 06:00: Sodium Level 136, Potassium Level 4.3, Chloride Level 109H, Carbon Dioxide Level 20L, Anion Gap 7, Blood Urea Nitrogen 15, Creatinine 0.89, Estimat Glomerular Filtration Rate > 60, BUN/Creatinine Ratio 17, Glucose Level 194H, Calcium Level 8.3L, Corrected Calcium 9.3, Total Bilirubin 0.5, Aspartate Amino Transf (AST/SGOT) 20, Alanine Aminotransferase (ALT/SGPT) 25, Alkaline Phosphatase 79, Total Protein 4.6L, Albumin 2.8L 07/11/18 06:10: White Blood Count 9.3, Red Blood Count 2.82L, Hemoglobin 8.8L, Hematocrit 27L, Mean Corpuscular Volume 95, Mean Corpuscular Hemoglobin 31, Mean Corpuscular Hemoglobin Concent 33, Red Cell Distribution Width 18.8H, Platelet Count 230, Mean Platelet Volume 9.8, Neutrophils (%) (Auto) 83H, Lymphocytes (%) (Auto) 11L , Monocytes (%) (Auto) 4, Eosinophils (%) (Auto) 1, Basophils (%) (Auto) 0, Neutrophils # (Auto) 7.7, Lymphocytes # (Auto) 1.1, Monocytes # (Auto) 0.4, Eosinophils # (Auto) 0.1, Basophils # (Auto) 0.0 07/11/18 11:21: Glucometer 204H Microbiology 07/07/18 Blood Culture - Preliminary, Resulted No growth 07/07/18 MRSA Screen - Final, Complete MRSA not isolated 07/06/18 Urine Culture - Final, Complete NO GROWTH A/P: Assessment/Dx: Active GI bleeding, Severe Peptic ulcer disease, Severe cardiomyopathy, Smoking, HTN, DM, Hyperlipidemia, Hypokalemia, CKD, Leg discomfort, Aortic insufficiency, ASD, Acute diastolic CHF, Pulmonary HTN, COPD Plan: Active GI bleeding, on PPI and sucrafate. received PRBCs. Hb improved and stable now. Severe Peptic ulcer disease, Severe cardiomyopathy, LVEF on Echo today 25% with anterior/apical hypokinesis. very likely due to CAD. Coronary angiography and intervention is recommended, however contraindicated with active GI bleeding and anemia. Caution with IV fluids. started lisinopril 5mg daily and metoprolol 25mg twice daily. cannot give aspirin or plavix for now. if bleeding can be addressed; we may be able to perform Coronary angiography. Lifevest for primary prevention of sudden cardiac , before discharge. Smoking - smoking cessation was strongly recommended. HTN, lisinopril and BB. DM, continue metformin for now. Hyperlipidemia, will start statin. check lipid profile in am. Hypokalemia, CKD; Diabetic nephropathy likely. Leg discomfort, likely PAD. work up as an outpatient. Aortic insufficiency, follow clinically. 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 Acute diastolic CHF, pseudonormal diastolic dysfunction. caution with IV fluids. Pulmonary HTN, likely secondary to COPD. COPD, defer to primary team. Thank you for your consultation. Please call me if you have any questions. Kusum Chandra MD, FACP, FACC, FSCAI, FHRS, CCDS Interventional Cardiology Cardiac Electrophysiology Vascular Medicine and Endovascular Interventions Focused Exam Time of Focused Exam: 07:40 Jose CHANDRA MD Jul 11, 2018 12:56 pm
--- NOTE | 2018-07-11 13:54 | Progress Note ---
Subjective Time Seen by a Provider: 12:27 Subjective/Events-last exam Pt seen and examined, denies abdominal pain and hematemesis. He is tolerating clears without problems. Review of Systems General: No Chills, No Night Sweats Pulmonary: No Dyspnea, No Cough Gastrointestinal: No: Nausea, Vomiting, Abdominal Pain Focused Exam Time of Focused Exam: 07:40 Objective Exam Vital Signs Date Time Temp Pulse Resp B/P (MAP) Pulse Ox O2 Delivery O2 Flow Rate FiO2 07/11/18 12:00 98.8 85 20 115/61 (79) 96 Nasal Cannula 2.00 07/11/18 09:00 Room Air 07/11/18 08:00 98.2 76 22 124/68 (86) 94 Nasal Cannula 2.00 07/11/18 07:30 99 Nasal Cannula 4.00 07/11/18 07:00 83 07/11/18 04:00 97.7 79 20 117/63 (81) 100 Nasal Cannula 2.00 07/11/18 01:00 78 07/11/18 00:00 99.8 89 20 102/58 (73) 100 Nasal Cannula 2.00 07/10/18 21:00 Room Air 07/10/18 19:35 100 Nasal Cannula 4.00 07/10/18 19:30 98.4 84 16 117/61 (79) 100 Nasal Cannula 2.00 07/10/18 19:00 83 07/10/18 15:50 98.7 73 16 105/59 (74) 100 Nasal Cannula 2.00 I & O 07/11/18 07:00 Intake Total 1260 ml Output Total 850 ml Balance 410 ml Capillary Refill : Less Than 3 SecondsLess Than 3 Seconds General Appearance: No Apparent Distress, WD/WN HEENT: Pharynx Normal; No Scleral Icterus (L), No Scleral Icterus (R) Respiratory: Chest Non Tender, No Accessory Muscle Use, No Respiratory Distress , Decreased Breath Sounds Cardiovascular: Regular Rate, Rhythm, No Gallop, No Murmur Gastrointestinal: non tender, soft, no organomegaly, no pulsatile mass Extremity: Non Tender, Swelling (And moderate to severe pitting edema equal bilaterally) Neurologic/Psychiatric: Alert, Oriented x3, No Motor/Sensory Deficits, Normal Mood/Affect, 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 Skin: Normal Color, Warm/Dry Results Lab Laboratory Tests 07/10/18 15:52: Glucometer 179H 07/10/18 20:00: Glucometer 249H 07/11/18 05:42: Glucometer 204H 07/11/18 06:00: Sodium Level 136, Potassium Level 4.3, Chloride Level 109H, Carbon Dioxide Level 20L, Anion Gap 7, Blood Urea Nitrogen 15, Creatinine 0.89, Estimat Glomerular Filtration Rate > 60, BUN/Creatinine Ratio 17, Glucose Level 194H, Calcium Level 8.3L, Corrected Calcium 9.3, Total Bilirubin 0.5, Aspartate Amino Transf (AST/SGOT) 20, Alanine Aminotransferase (ALT/SGPT) 25, Alkaline Phosphatase 79, Total Protein 4.6L, Albumin 2.8L 07/11/18 06:10: White Blood Count 9.3, Red Blood Count 2.82L, Hemoglobin 8.8L, Hematocrit 27L, Mean Corpuscular Volume 95, Mean Corpuscular Hemoglobin 31, Mean Corpuscular Hemoglobin Concent 33, Red Cell Distribution Width 18.8H, Platelet Count 230, Mean Platelet Volume 9.8, Neutrophils (%) (Auto) 83H, Lymphocytes (%) (Auto) 11L , Monocytes (%) (Auto) 4, Eosinophils (%) (Auto) 1, Basophils (%) (Auto) 0, Neutrophils # (Auto) 7.7, Lymphocytes # (Auto) 1.1, Monocytes # (Auto) 0.4, Eosinophils # (Auto) 0.1, Basophils # (Auto) 0.0 07/11/18 11:21: Glucometer 204H Microbiology 07/07/18 Blood Culture - Preliminary, Resulted No growth 07/07/18 MRSA Screen - Final, Complete MRSA not isolated 07/06/18 Urine Culture - Final, Complete NO GROWTH Assessment/Plan Assessment/Plan Assessment/Plan Anemia with GI bleed most likely upper due to patient having black tarry stools recently Posttraumatic stress disorder Duodenal ulcers - no signs of active bleed seen during EGD Patient on Protonix, Carafate, continue clear liquids can probably start soft diet. H/H today 8.8 (basically the same as yesterday); will continue to follow. If drops may need repeat endoscopy; possibly lower as well as upper, probably should do again as outpt. Clinical Quality Measures DVT/VTE Risk/Contraindication: Risk Factor Score Per Nursin RFS Level Per Nursing on Admit: 4+=Very High ALEXA KENDALL DO Jul 11, 2018 13:54
[2018-07-11 16:09] VITALS: BP 107/55
[2018-07-11] MEDS ORDERED: LORazepam 0.5 MG (ATIVAN) TABLET PO PRN (17:30)
--- NOTE | 2018-07-11 17:39 | Progress Note (SOAP) ---
Subjective Subjective/Events-last exam Patient states that he does not feel well. He was unable to sleep due to shortness of breath. States that he wakes up and has panic attack. He is also sore on his bottom from sitting in bed. States that he had a large BM yesterday and denies any blood in stool. States that he has not had any N/V with diet. Review of Systems Date Seen by Provider: Jul 11, 2018 Time Seen by Provider: 12:35 Pulmonary: Dyspnea, Cough Cardiovascular: No: Chest Pain, Palpitations Gastrointestinal: Abdominal Pain; No: Nausea, Vomiting Focused Exam Time of Focused Exam: 07:40 Objective Exam Last Set of Vital Signs Vital Signs Date Time Temp Pulse Resp B/P (MAP) Pulse Ox O2 Delivery O2 Flow Rate FiO2 07/11/18 13:00 74 07/11/18 12:00 98.8 20 115/61 (79) 96 Nasal Cannula 2.00 Capillary Refill : Less Than 3 SecondsLess Than 3 Seconds I&O Intake and Output 07/11/18 00:00 Intake Total 660 ml Output Total 800 ml Balance -140 ml Intake Oral 660 ml Output Urine Total 800 ml # Bowel Movements 1 General: Alert, Oriented X3, Cooperative Lungs: Other (diminished breath sounds, normal work of breathing) Heart: Regular Rate, No Murmurs Abdomen: Soft, No Tenderness Extremities: No Tenderness/Swelling, Other (2+ pitting edema) Skin: No Rashes, No Breakdown Neuro: Normal Speech, Sensation Intact, Cranial Nerves 3-12 NL Psych/Mental Status: Mental Status NL, Mood NL Results/Procedures Lab Laboratory Tests 07/10/18 20:00: Glucometer 249H 07/11/18 05:42: Glucometer 204H 07/11/18 06:00: Sodium Level 136, Potassium Level 4.3, Chloride Level 109H, Carbon Dioxide Level 20L, Anion Gap 7, Blood Urea Nitrogen 15, Creatinine 0.89, Estimat Glomerular Filtration Rate > 60, BUN/Creatinine Ratio 17, Glucose Level 194H, Calcium Level 8.3L, Corrected Calcium 9.3, Total Bilirubin 0.5, Aspartate Amino Transf (AST/SGOT) 20, Alanine Aminotransferase (ALT/SGPT) 25, Alkaline Phosphatase 79, Total Protein 4.6L, Albumin 2.8L 07/11/18 06:10: White Blood Count 9.3, Red Blood Count 2.82L, Hemoglobin 8.8L, Hematocrit 27L, Mean Corpuscular Volume 95, Mean Corpuscular Hemoglobin 31, Mean Corpuscular Hemoglobin Concent 33, Red Cell Distribution Width 18.8H, Platelet Count 230, Mean Platelet Volume 9.8, Neutrophils (%) (Auto) 83H, Lymphocytes (%) (Auto) 11L , Monocytes (%) (Auto) 4, Eosinophils (%) (Auto) 1, Basophils (%) (Auto) 0, Neutrophils # (Auto) 7.7, Lymphocytes # (Auto) 1.1, Monocytes # (Auto) 0.4, Eosinophils # (Auto) 0.1, Basophils # (Auto) 0.0 07/11/18 11:21: Glucometer 204H 07/11/18 16:09: Glucometer 275H Microbiology 07/07/18 Blood Culture - Preliminary, Resulted No growth 07/07/18 MRSA Screen - Final, Complete MRSA not isolated 07/06/18 Urine Culture - Final, Complete NO GROWTH Radiology Assessment/Plan Assessment/Plan Assessment & Plan 1. GI Bleed Pt required another unit of PRBCs last night; Hgb stable for now. EGD with Acharya today. Consider colonoscopy outpatient, should EGD come back negative. 2. Right Foot Drop MRI showed only lumbar spondylosis. Not a strong explanation for his foot drop. No inciting event. 3. DM Type 2 Sliding scale Novolog. Observe. 4. Acute Kidney Injury Improved. Unknown hx. 5. Leukocytosis Unknown origin. Observe. (1) GI bleed Status: Acute Assessment & Plan: Pt required another unit of PRBCs last night; Hgb stable for now. EGD with Acharya today. Consider colonoscopy outpatient, should EGD come back negative. 07/09- EGD yesterday with large ulcers, not actively bleeding. Added sucralfate to pantoprazole but hemoglobin below 6 again this am. 2 units PRBCs, f/u after. 07/10- No vomiting, Hgb stable since transfusion, if continues to be stable would be stable for cath Thursday, Will advance diet today per surgery recommendations 07/11- Hgb stable, Will get retic count today, Start Fe infusions Qualifiers: Qualified Codes: K92.2 - Gastrointestinal hemorrhage, unspecified (2) Acute systolic CHF (congestive heart failure) Status: Acute Assessment & Plan: 07/10: Echo with EF 25%, plan for cath when anemia is stable (3) Hyperglycemia Status: Acute Assessment & Plan: sliding scale insulin, diabetic diet when taking PO 07/10: A1c pending (4) Lower extremity edema Status: Acute Assessment & Plan: Venous insufficiency/immobility versus related to his kidney function. Consider echocardiogram pending clinical course. 07/09- complaining of cough as well, will obtain echocardiogram 07/10- Abnormal echo, EF 25%, cardiology following (5) Severe anemia Status: Acute Assessment & Plan: Pt required another unit of PRBCs last night. EGD with Acharya today. Consider colonscopy outpatient, should EGD come back negative. 07/09- hgb below 6 this am, 2 units prbc today, repeat hemoglobin after. (6) Hypokalemia Status: Resolved Assessment & Plan: Replace and recheck. (7) Lactic acidosis Status: Resolved Assessment & Plan: Unclear etiology with no source of infection. Improved with IVF. Denies abdominal pain to suggest ischemia. (8) Diabetes mellitus, type 2 Status: Chronic Assessment & Plan: Diabetic diet when taking oral. Sliding scale insulin. Qualifiers: (9) Urinary retention due to benign prostatic hyperplasia Status: Acute Assessment & Plan: Catheter placed 07/07 due to significant retention. 07/08 start Flomax, may need to d/c with liriano depending on course. (10) Right foot drop Status: Acute Assessment & Plan: MRI showed only lumbar spondylosis. No clear explanation for his foot drop. 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 (11) Poor appetite Status: Acute Assessment & Plan: Denies pain, concern for underlying serious condition given his anemia and weakness. Endoscopy recommended in vs outpatient depending on course. 07/08 EGD today 07/09 EGD yesterday with ulcers, treating with pantoprazole and sucralfate, biopsies pending (12) Leg weakness, bilateral Status: Acute Assessment & Plan: PT. (13) BPH (benign prostatic hyperplasia) Status: Chronic Assessment & Plan: Previously on medication, he stopped due to side effects. Qualifiers: (14) PTSD (post-traumatic stress disorder) Status: Chronic Assessment & Plan: Resume home medications. (15) COPD (chronic obstructive pulmonary disease) Status: Chronic Assessment & Plan: Resume home inhalers (16) DVT prophylaxis Status: Acute Assessment & Plan: No pharmacologic ppx with active bleed. SCDs. Clinical Quality Measures DVT/VTE Risk/Contraindication: Risk Factor Score Per Nursin RFS Level Per Nursing on Admit: 4+=Very High GENNA DUMONT MD Jul 11, 2018 17:39
[2018-07-11] MEDS: TAMSULOSIN 0.4 MG (FLOMAX) CAP PO SCH (18:15)
[2018-07-11 20:10] VITALS: BP 105/59
[2018-07-12] VITALS (7 sets, daily range): BP systolic 92–115; BP diastolic 52–62
[2018-07-12 05:07] LABS: ABSOLUTE RETIC # 248 10e9/L (24-90); BASOPHILS % (AUTO) 0 % (0-10); EOSINOPHILS # (AUTO) 0.1 10^3/uL (0.0-0.3); EOSINOPHILS % (AUTO) 1 % (0-10); HEMATOCRIT 28 % (40-54); HEMOGLOBIN 8.8 G/DL (13.3-17.7); LYMPHOCYTES # (AUTO) 1.1 X 10^3 (1.0-4.0); LYMPHOCYTES % (AUTO) 14 % (12-44); MEAN CORPUSCULAR HEMOGLOBIN 30 PG (25-34); MEAN CORPUSCULAR HGB CONC 32 G/DL (32-36); MEAN CORPUSCULAR VOLUME 95 FL (80-99); MEAN PLATELET VOLUME 9.9 FL (7.4-10.4); MONOCYTES # (AUTO) 0.5 X 10^3 (0.0-1.0); MONOCYTES % (AUTO) 7 % (0-12); NEUTROPHILS # (AUTO) 6.5 X 10^3 (1.8-7.8); NEUTROPHILS % (AUTO) 79 % (42-75); PLATELET COUNT 223 10^3/uL (130-400); RED CELL DISTRIBUTION WIDTH 18.2 % (10.0-14.5); RETICULOCYTE % 8.56 % (0.50-2.40); WHITE BLOOD COUNT 8.3 10^3/uL (4.3-11.0)
[2018-07-12 05:26] LABS: ALANINE AMINOTRANSFERASE 22 U/L (0-55); ALBUMIN 2.6 GM/DL (3.2-4.5); ALKALINE PHOSPHATASE 75 U/L (40-136); BILIRUBIN,TOTAL 0.5 MG/DL (0.1-1.0); BUN/CREATININE RATIO 12; CALCIUM 7.9 MG/DL (8.5-10.1); CARBON DIOXIDE 19 MMOL/L (21-32); CHLORIDE 107 MMOL/L (98-107); CREATININE SERUM 0.86 MG/DL (0.60-1.30); GFR ESTIMATED > 60; GLUCOSE 234 MG/DL (70-105); POTASSIUM 3.7 MMOL/L (3.6-5.0); SODIUM 134 MMOL/L (135-145); TOTAL PROTEIN 4.2 GM/DL (6.4-8.2)
[2018-07-12] MEDS: CATHETER FLUSH 10 ML SYR IV SCH ×3 (06:41→21:57)
[2018-07-12] MEDS: SUCRALFATE 1 GM (CARAFATE) TAB PO SCH ×4 (06:41→21:54)
[2018-07-12] MEDS: inSUlin ASPART (NovoLOG) 1 UNIT/0.01 ML (CHARGE PER UNIT) SC SCH ×4 (06:42→21:54)
[2018-07-12] MEDS: UMECLIDINIUM BROMIDE (INCRUSE ELLIPTA) 7'S IH SCH (07:22)
[2018-07-12] MEDS: RT-ADVAIR HFA 115/21 MCG PER PUFF IH SCH ×2 (07:22→19:13)
[2018-07-12] MEDS: lisINopril 5 MG (PRINIVIL) TABLET PO SCH (08:41)
[2018-07-12] MEDS: ALPRAZolam 0.5 MG (XANAX) TAB PO SCH ×2 (08:41→21:54)
[2018-07-12] MEDS: PARoxetine 20 MG (PAXIL) TAB PO SCH ×2 (08:41→21:54)
[2018-07-12] MEDS: PANTOPRAZOLE 40 MG (PROTONIX) TAB PO SCH ×2 (08:41→21:54)
[2018-07-12] MEDS: NICOTINE 21 MG (NICODERM) PATCH TD SCH (08:49)
[2018-07-12] MEDS: PATCH REMOVAL TP SCH (08:50)
--- NOTE | 2018-07-12 11:46 | Cardiology Progress Note ---
Cardiology SOAP Progress Note Subjective: No chest pain, no bleeding. Objective: I&O/Vital Signs 07/12/18 07/12/18 07/12/18 07/12/18 00:00 01:00 04:00 07:00 Temp 97.8 97.9 Pulse 76 75 79 79 Resp 18 18 B/P (MAP) 102/52 (69) 107/56 (73) Pulse Ox 98 99 O2 Delivery Nasal Cannula O2 Flow Rate 2.00 07/12/18 07/12/18 07/12/18 07:22 08:00 09:00 Temp 98.0 Pulse 86 Resp 28 B/P (MAP) 107/57 (74) Pulse Ox 98 97 98 O2 Delivery Nasal Cannula Nasal Cannula Nasal Cannula O2 Flow Rate 2.00 2.00 2.00 07/12/18 00:00 Intake Total 740 ml Output Total 675 ml Balance 65 ml Weight (Pounds): 166 Weight (Ounces): 9.0 Weight (Calculated Kilograms): [id number] Constitutional: appears stated age, AAO x 3; No apparent distress; well- developed, well-nourished Respiratory: No accessory muscle use, No respiratory distress, No chest tender , No chest expansion is symmetric; chest is bilaterally symmetric; No lungs clear to percussion; lungs clear to auscultation; No crackles, No rhonchi, No rales, No stridor, No wheezing, No pleural rub, No other Cardiovascular: regular rate-rhythm; No irregularly irregular, No extra beats, No parasternal heave is noted, No JVD, No edema, No bradycardia, No tachycardia , No point of maximal impulse, No cardiac thrills are palpable; S1 and S2; No gallop/S3, No gallop/S4, No diastolic murmur, No systolic murmur, No friction rub, No click, No other Gastrointestional: No tender, No soft, No round, No distended, No pulsatile mass, No organomegaly, No guarding, No rebound, No tenderness, No hernia, No mass, No audible bowel sounds, No abnormal bowel sounds, No abdominal bruits, No spleenomegaly, No other Extremities: pedal edema; No clubbing, No cyanosis, No significant edema Neurologic/Psychiatric: no motor/sensory deficits, alert, normal mood/affect, oriented x 3, power is 5/5 both on sides Skin: No normal color, No warm/dry, No cyanosis, No cool, No diaphoresis, No damp, No ecchymosis, No jaundice, No mottled; pallor; No rash, No tattoos/ piercings, No ulcerations, No rash on exposed areas, No ulcerations on exposed areas, No other Results/Procedures: Labs Laboratory Tests 07/11/18 16:09: Glucometer 275H 07/11/18 20:56: Glucometer 237H 07/12/18 04:40: White Blood Count 8.3, Red Blood Count 2.90L, Hemoglobin 8.8L, Hematocrit 28L, Mean Corpuscular Volume 95, Mean Corpuscular Hemoglobin 30, Mean Corpuscular Hemoglobin Concent 32, Red Cell Distribution Width 18.2H, Platelet Count 223, Mean Platelet Volume 9.9, Neutrophils (%) (Auto) 79H, Lymphocytes (%) (Auto) 14 , Monocytes (%) (Auto) 7, Eosinophils (%) (Auto) 1, Basophils (%) (Auto) 0, Neutrophils # (Auto) 6.5, Lymphocytes # (Auto) 1.1, Monocytes # (Auto) 0.5, Eosinophils # (Auto) 0.1, Basophils # (Auto) 0.0, Absolute Reticulocyte Count 248H, Percent Reticulocyte Count 8.56H, Sodium Level 134L, Potassium Level 3.7, Chloride Level 107, Carbon Dioxide Level 19L, Anion Gap 8, Blood Urea Nitrogen 10, Creatinine 0.86, Estimat Glomerular Filtration Rate > 60, BUN/Creatinine Ratio 12, Glucose Level 234H, Calcium Level 7.9L, Corrected Calcium 9.0, Total Bilirubin 0.5, Aspartate Amino Transf (AST/SGOT) 13, Alanine Aminotransferase ( ALT/SGPT) 22, Alkaline Phosphatase 75, Total Protein 4.2L, Albumin 2.6L 07/12/18 05:09: Glucometer 219H 07/12/18 11:23: Glucometer 228H Microbiology 07/07/18 Blood Culture - Preliminary, Resulted No growth 07/07/18 MRSA Screen - Final, Complete MRSA not isolated 07/06/18 Urine Culture - Final, Complete NO GROWTH A/P: Assessment/Dx: Active GI bleeding, Severe Peptic ulcer disease, Severe cardiomyopathy, Smoking, HTN, DM, Hyperlipidemia, Hypokalemia, CKD, Leg discomfort, Aortic insufficiency, ASD, Acute diastolic CHF, Pulmonary HTN, COPD Plan: Active GI bleeding, on PPI and sucrafate. received PRBCs. Hb improved and stable now. Severe Peptic ulcer disease, Severe cardiomyopathy, LVEF on Echo today 25% with anterior/apical hypokinesis. very likely due to CAD. Coronary angiography and intervention is recommended, however contraindicated with active GI bleeding and anemia. Caution with IV fluids. started lisinopril 5mg daily and metoprolol 25mg twice daily. cannot give aspirin or plavix for now. if bleeding can be addressed; we may be able to perform Coronary angiography. I spoke at length with Dr. Varma. She is going to advance diet and continue to monitor H/H. We will reconvene tomorrow and address timing of coronary angiography. I appreciate Dr. Varma's input in this regard. Lifevest for primary prevention of sudden cardiac , before discharge. Smoking - smoking cessation was strongly recommended. HTN, lisinopril and BB. DM, continue metformin for now. Hyperlipidemia, will start statin. check lipid profile in am. Hypokalemia, CKD; Diabetic nephropathy likely. Leg discomfort, likely PAD. work up as an outpatient. Aortic insufficiency, follow clinically. 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 Acute diastolic CHF, pseudonormal diastolic dysfunction. caution with IV fluids. Pulmonary HTN, likely secondary to COPD. COPD, defer to primary team. Thank you for your consultation. Please call me if you have any questions. Kusum Chandra MD, FACP, FACC, FSCAI, FHRS, CCDS Interventional Cardiology Cardiac Electrophysiology Vascular Medicine and Endovascular Interventions Focused Exam Time of Focused Exam: 07:40 Jose CHANDRA MD Jul 12, 2018 11:45 am
--- NOTE | 2018-07-12 14:08 | Physical Therapy Daily Note ---
PT Daily Note-Current Subjective Pt reports he is getting to eat today. Reports he was weaker this morning but feeling stronger this afternoon. Mental Status Patient Orientation: Person, Place, Time, Situation Transfers Functional [place] Measure 0=Not Assessed/NA 4=Minimal Assistance 1=Total Assistance 5=Supervision or Setup 2=Maximal Assistance 6=Modified [place] 3=Moderate Assistance 7=Complete IndependenceIRFPAI Quality Coding Scale 6 Independent with activity with or without an assistive device 5 Patient requires set up or clean up by helper. Patient completes activity by themselves 4 Supervision or touching assist (CGA). [place] provide cues , steadying assist 3 The helper provides less than half the effort to complete the activity 2 The helper provides more than half the effort to complete the activity 1 Dependent. The helper does all the effort to complete an activity 7 Patient refused to complete or attempt activity 9 The patient did not perform the activity before the current illness or injury 88 Not attempted due to Medical conditions or safety concerns Transfers (B, C, W/C) (FIM): 4 Supine to/from Sit: 4 (min assist to sit up) Sit to/from Stand: 4 (CGA for safety) Sit to stand practice x 3 reps. Pt requires cues to square up to the chair and to reach back to sit; in turn he requires skilled cues to push up from the chair to stand. Gait Training Gait (FIM): 2 Distance (FIM): 2=689-55 ft Distance: 60 ft Gait Level of Assist: 4 (CGA) Gait Assistive Device: FWW slow gait but steady Exercises Seated Therapy Exercises: Ankle pumps, Long arc quads, Hip flexion Seated Reps: 10 (to improve LE strength for gait and transfers. ) Assessment Current Status: Good Progress Strength is progressing but still noted functional weakness. PT [employer] Goals Skilled Nursing Goals PT Skilled Nursing Goals Time Frame: Jul 14, 2018 Transfers (B,C,W/C) (FIM): 6 Gait (FIM): 6 Gait distance (FIM): 3=150 ft Gait Level of Assist: 6 Gait Assistive Device: FWW PT Plan Problem List Problem List: Activity Tolerance, Functional Strength, Safety, Balance, Gait, Transfer, Bed Mobility Treatment/Plan Treatment Plan: Continue Plan of Care Treatment Plan: Bed Mobility, Education, Functional Activity Michel, Functional Strength, Gait, Safety, Therapeutic Exercise, Transfers Treatment Duration: Jul 14, 2018 Frequency: 6 times per week Estimated Hrs Per Day: .5 hour per day Patient and/or Family Agrees t: Yes Safety Risks/Education Patient Education: Transfer Techniques, Safety Issues Teaching Recipient: Patient Teaching Methods: Demonstration, Discussion Response to Teaching: Reinforcement Needed Time/GCodes Time In: 1335 Time Out: 1400 Total Billed Treatment Time: 25 Total Billed Treatment visit GT 15 EX 10 CALIXTO GANNON PT Jul 12, 2018 14:08
[2018-07-12] MEDS: TAMSULOSIN 0.4 MG (FLOMAX) CAP PO SCH (17:50)
--- NOTE | 2018-07-12 20:48 | Progress Note (SOAP) ---
Subjective Subjective/Events-last exam States that he got more sleep last night. Denies any pain or nausea with diet. Review of Systems Date Seen by Provider: Jul 12, 2018 Time Seen by Provider: 20:25 Pulmonary: Dyspnea Cardiovascular: Edema; No: Chest Pain, Palpitations Gastrointestinal: No: Nausea, Vomiting, Abdominal Pain Neurological: Weakness Focused Exam Time of Focused Exam: 07:40 Objective Exam Last Set of Vital Signs Vital Signs Date Time Temp Pulse Resp B/P (MAP) Pulse Ox O2 Delivery O2 Flow Rate FiO2 07/12/18 19:36 79 07/12/18 19:14 97 Nasal Cannula 2.00 07/12/18 19:00 97.9 20 93/56 (68) Capillary Refill : Less Than 3 SecondsLess Than 3 Seconds I&O Intake and Output 07/12/18 00:00 Intake Total 1340 ml Output Total 925 ml Balance 415 ml Intake Oral 1340 ml Output Urine Total 925 ml # Bowel Movements 1 General: Alert, Oriented X3, Cooperative, No Acute Distress HEENT: Mucous Memb Moist/[place] Lungs: Clear to Auscultation, Normal Air Movement Heart: Regular Rate, No Murmurs Abdomen: Normal Bowel Sounds, Soft, No Tenderness Extremities: Other (2+ pitting edema bilaterally) Neuro: Other (Bilateral LE weakness) Results/Procedures Lab Laboratory Tests 07/11/18 20:56: Glucometer 237H 07/12/18 04:40: White Blood Count 8.3, Red Blood Count 2.90L, Hemoglobin 8.8L, Hematocrit 28L, Mean Corpuscular Volume 95, Mean Corpuscular Hemoglobin 30, Mean Corpuscular Hemoglobin Concent 32, Red Cell Distribution Width 18.2H, Platelet Count 223, Mean Platelet Volume 9.9, Neutrophils (%) (Auto) 79H, Lymphocytes (%) (Auto) 14 , Monocytes (%) (Auto) 7, Eosinophils (%) (Auto) 1, Basophils (%) (Auto) 0, Neutrophils # (Auto) 6.5, Lymphocytes # (Auto) 1.1, Monocytes # (Auto) 0.5, Eosinophils # (Auto) 0.1, Basophils # (Auto) 0.0, Absolute Reticulocyte Count 248H, Percent Reticulocyte Count 8.56H, Sodium Level 134L, Potassium Level 3.7, Chloride Level 107, Carbon Dioxide Level 19L, Anion Gap 8, Blood Urea Nitrogen 10, Creatinine 0.86, Estimat Glomerular Filtration Rate > 60, BUN/Creatinine Ratio 12, Glucose Level 234H, Calcium Level 7.9L, Corrected Calcium 9.0, Total Bilirubin 0.5, Aspartate Amino Transf (AST/SGOT) 13, Alanine Aminotransferase ( ALT/SGPT) 22, Alkaline Phosphatase 75, Total Protein 4.2L, Albumin 2.6L 07/12/18 05:09: Glucometer 219H 07/12/18 11:23: Glucometer 228H 07/12/18 16:28: Glucometer 321H 07/12/18 20:11: Glucometer 238H Microbiology 07/07/18 Blood Culture - Final, Complete No growth 07/07/18 MRSA Screen - Final, Complete MRSA not isolated 07/06/18 Urine Culture - Final, Complete NO GROWTH Radiology Assessment/Plan Assessment/Plan Assessment & Plan 1. GI Bleed Pt required another unit of PRBCs last night; Hgb stable for now. EGD with Acharya today. Consider colonoscopy outpatient, should EGD come back negative. 2. Right Foot Drop MRI showed only lumbar spondylosis. Not a strong explanation for his foot drop. No inciting event. 3. DM Type 2 Sliding scale Novolog. Observe. 4. Acute Kidney Injury Improved. Unknown hx. 5. Leukocytosis Unknown origin. Observe. (1) GI bleed Status: Acute Assessment & Plan: Pt required another unit of PRBCs last night; Hgb stable for now. EGD with Acharya today. Consider colonoscopy outpatient, should EGD come back negative. 07/09- EGD yesterday with large ulcers, not actively bleeding. Added sucralfate to pantoprazole but hemoglobin below 6 again this am. 2 units PRBCs, f/u after. 07/10- No vomiting, Hgb stable since transfusion, if continues to be stable would be stable for cath Thursday, Will advance diet today per surgery recommendations 07/11- Hgb stable, Will get retic count today, Start Fe infusions 07/12- Hgb stable today, will discuss case with surgery to see how long they would like to wait for cath, IV iron Qualifiers: Qualified Codes: K92.2 - Gastrointestinal hemorrhage, unspecified (2) Acute systolic CHF (congestive heart failure) Status: Acute Assessment & Plan: 07/10: Echo with EF 25%, plan for cath when anemia is stable 07/11: Discussed case with cardiology, waiting to get cath procedure done (3) Hyperglycemia Status: Acute Assessment & Plan: sliding scale insulin, diabetic diet when taking PO 07/10: A1c pending (4) Lower extremity edema Status: Acute Assessment & Plan: Venous insufficiency/immobility versus related to his kidney function. Consider echocardiogram pending clinical course. 07/09- complaining of cough as well, will obtain echocardiogram 07/10- Abnormal echo, EF 25%, cardiology following 07/12: Discussed the importance of activity, getting to edge of bed, leg exercises and elevation of feet (5) Severe anemia Status: Acute Assessment & Plan: Pt required another unit of PRBCs last night. EGD with Patrizia today. Consider colonscopy outpatient, should EGD come back negative. 07/09- hgb below 6 this am, 2 units prbc today, repeat hemoglobin after. (6) Hypokalemia Status: Resolved Assessment & Plan: Replace and recheck. (7) Lactic acidosis Status: Resolved Assessment & Plan: Unclear etiology with no source of infection. Improved with IVF. Denies abdominal pain to suggest ischemia. (8) Diabetes mellitus, type 2 Status: Chronic Assessment & Plan: Diabetic diet when taking oral. Sliding scale insulin. Qualifiers: (9) Urinary retention due to benign prostatic hyperplasia Status: Acute Assessment & Plan: Catheter placed 07/07 due to significant retention. 07/08 start Flomax, may need to d/c with liriano depending on course. (10) Right foot drop Status: Acute Assessment & Plan: MRI showed only lumbar spondylosis. No clear explanation for his foot drop. 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 (11) Poor appetite Status: Acute Assessment & Plan: Denies pain, concern for underlying serious condition given his anemia and weakness. Endoscopy recommended in vs outpatient depending on course. 07/08 EGD today 07/09 EGD yesterday with ulcers, treating with pantoprazole and sucralfate, biopsies pending (12) Leg weakness, bilateral Status: Acute Assessment & Plan: PT. (13) BPH (benign prostatic hyperplasia) Status: Chronic Assessment & Plan: Previously on medication, he stopped due to side effects. Qualifiers: (14) PTSD (post-traumatic stress disorder) Status: Chronic Assessment & Plan: Resume home medications. (15) COPD (chronic obstructive pulmonary disease) Status: Chronic Assessment & Plan: Resume home inhalers (16) DVT prophylaxis Status: Acute Assessment & Plan: No pharmacologic ppx with active bleed. SCDs. Clinical Quality Measures DVT/VTE Risk/Contraindication: Risk Factor Score Per Nursin RFS Level Per Nursing on Admit: 4+=Very High GENNA DUMONT MD Jul 12, 2018 20:48
[2018-07-12] MEDS: BENZONATATE 100 MG (TESSALON) CAPSULE PO PRN (23:47)
[2018-07-13 03:45] VITALS: BP 95/57
[2018-07-13 06:11] LABS: BASOPHILS % (AUTO) 0 % (0-10); EOSINOPHILS # (AUTO) 0.1 10^3/uL (0.0-0.3); EOSINOPHILS % (AUTO) 1 % (0-10); HEMATOCRIT 29 % (40-54); HEMOGLOBIN 9.5 G/DL (13.3-17.7); LYMPHOCYTES % (AUTO) 11 % (12-44); MEAN CORPUSCULAR HEMOGLOBIN 31 PG (25-34); MEAN CORPUSCULAR HGB CONC 33 G/DL (32-36); MEAN CORPUSCULAR VOLUME 95 FL (80-99); MEAN PLATELET VOLUME 10.1 FL (7.4-10.4); MONOCYTES # (AUTO) 0.5 X 10^3 (0.0-1.0); MONOCYTES % (AUTO) 6 % (0-12); NEUTROPHILS # (AUTO) 7.3 X 10^3 (1.8-7.8); NEUTROPHILS % (AUTO) 83 % (42-75); PLATELET COUNT 306 10^3/uL (130-400); RED BLOOD COUNT 3.06 10^6/uL (4.35-5.85); RED CELL DISTRIBUTION WIDTH 18.4 % (10.0-14.5); WHITE BLOOD COUNT 8.9 10^3/uL (4.3-11.0)
[2018-07-13 06:33] LABS: ALANINE AMINOTRANSFERASE 23 U/L (0-55); ALBUMIN 2.9 GM/DL (3.2-4.5); ALKALINE PHOSPHATASE 85 U/L (40-136); BILIRUBIN,TOTAL 0.5 MG/DL (0.1-1.0); BUN/CREATININE RATIO 11; CALCIUM 8.3 MG/DL (8.5-10.1); CARBON DIOXIDE 21 MMOL/L (21-32); CHLORIDE 105 MMOL/L (98-107); CREATININE SERUM 0.94 MG/DL (0.60-1.30); GFR ESTIMATED > 60; GLUCOSE 230 MG/DL (70-105); POTASSIUM 4.2 MMOL/L (3.6-5.0); SODIUM 134 MMOL/L (135-145); TOTAL PROTEIN 4.8 GM/DL (6.4-8.2)
[2018-07-13] MEDS: SUCRALFATE 1 GM (CARAFATE) TAB PO SCH ×4 (06:36→21:57)
[2018-07-13] MEDS: inSUlin ASPART (NovoLOG) 1 UNIT/0.01 ML (CHARGE PER UNIT) SC SCH ×4 (06:36→21:58)
[2018-07-13] MEDS: CATHETER FLUSH 10 ML SYR IV SCH ×3 (06:36→22:00)
[2018-07-13] MEDS: ACETAMINOPHEN 500 MG TAB (TYLENOL) PO PRN ×2 (07:06→16:22)
[2018-07-13 08:00] VITALS: BP 98/60
[2018-07-13] MEDS: ALPRAZolam 0.5 MG (XANAX) TAB PO SCH ×2 (08:11→21:58)
[2018-07-13] MEDS: PARoxetine 20 MG (PAXIL) TAB PO SCH ×2 (08:11→21:57)
[2018-07-13] MEDS: NICOTINE 21 MG (NICODERM) PATCH TD SCH (08:11)
[2018-07-13] MEDS: lisINopril 5 MG (PRINIVIL) TABLET PO SCH (08:11)
[2018-07-13] MEDS: PANTOPRAZOLE 40 MG (PROTONIX) TAB PO SCH ×2 (08:12→21:56)
[2018-07-13] MEDS: IRON SUCROSE 200 MG/10 ML (VENOFER) VIAL IV SCH (08:12)
--- NOTE | 2018-07-13 08:18 | Progress Note ---
Subjective Date Seen by a Provider: Jul 12, 2018 Time Seen by a Provider: 09:00 Subjective/Events-last exam feeling better. had bm. no blood in stool. hgb stable. tolerating diet. Focused Exam Time of Focused Exam: 07:40 Objective Exam Vital Signs Date Time Temp Pulse Resp B/P (MAP) Pulse Ox O2 Delivery O2 Flow Rate FiO2 07/13/18 07:30 98.2 07/13/18 07:00 75 07/13/18 03:45 98.2 76 18 95/57 (70) 98 Nasal Cannula 2.00 07/13/18 01:00 80 07/12/18 23:55 98.6 79 22 92/53 (66) 98 Nasal Cannula 2.00 07/12/18 21:00 98 Nasal Cannula 2.00 07/12/18 19:36 79 07/12/18 19:14 97 Nasal Cannula 2.00 07/12/18 19:00 97.9 81 20 93/56 (68) 100 Nasal Cannula 2.00 07/12/18 16:24 97.3 79 18 102/62 (75) 98 Nasal Cannula 2.00 07/12/18 13:00 73 07/12/18 12:00 97.0 75 22 115/60 (78) 98 Nasal Cannula 2.00 07/12/18 09:00 98 Nasal Cannula 2.00 I & O 07/13/18 07:00 Intake Total 1195 ml Output Total 1175 ml Balance 20 ml Capillary Refill : Less Than 3 SecondsLess Than 3 Seconds General Appearance: No Apparent Distress, WD/WN HEENT: Pharynx Normal; No Scleral Icterus (L), No Scleral Icterus (R) Respiratory: Chest Non Tender, No Accessory Muscle Use, No Respiratory Distress , Decreased Breath Sounds Cardiovascular: Regular Rate, Rhythm, No Gallop, No Murmur Gastrointestinal: non tender, soft, no organomegaly, no pulsatile mass Extremity: Non Tender, Swelling (And moderate to severe pitting edema equal bilaterally) Neurologic/Psychiatric: Alert, Oriented x3, No Motor/Sensory Deficits, Normal Mood/Affect, drier 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3, Lymphocytes # (Auto) 1.0, Monocytes # (Auto) 0.5, Eosinophils # (Auto) 0.1, Basophils # (Auto) 0.0, Sodium Level 134L, Potassium Level 4.2, Chloride Level 105, Carbon Dioxide Level 21, Anion Gap 8, Blood Urea Nitrogen 10, Creatinine 0.94, Estimat Glomerular Filtration Rate > 60, BUN/ Creatinine Ratio 11, Glucose Level 230H, Calcium Level 8.3L, Corrected Calcium 9.2, Total Bilirubin 0.5, Aspartate Amino Transf (AST/SGOT) 17, Alanine Aminotransferase (ALT/SGPT) 23, Alkaline Phosphatase 85, Total Protein 4.8L, Albumin 2.9L 07/13/18 05:30: Glucometer 233H Microbiology 07/07/18 Blood Culture - Final, Complete No growth 07/07/18 MRSA Screen - Final, Complete MRSA not isolated 07/06/18 Urine Culture - Final, Complete NO GROWTH Assessment/Plan Assessment/Plan Assessment/Plan Anemia with GI bleed most likely upper due to duodenal ulcers and hx dark tarry stools Posttraumatic stress disorder Duodenal ulcers - no signs of active bleed seen during EGD Patient on Protonix, Carafate, tolerating diet. H/H today 8.8 stable; will continue to follow. If drops may need repeat endoscopy; possibly lower as well as upper, likely do as outpatient for follow up. Clinical Quality Measures DVT/VTE Risk/Contraindication: Risk Factor Score Per Nursin RFS Level Per Nursing on Admit: 4+=Very High JAVIER MARTINEZ DO Jul 13, 2018 08:18
[2018-07-13] MEDS: RT-ADVAIR HFA 115/21 MCG PER PUFF IH SCH ×2 (08:47→19:17)
[2018-07-13] MEDS: UMECLIDINIUM BROMIDE (INCRUSE ELLIPTA) 7'S IH SCH (08:48)
[2018-07-13] MEDS: PATCH REMOVAL TP SCH (08:50)
[2018-07-13 09:50] VITALS: BP 98/60
--- NOTE | 2018-07-13 09:59 | Cardiology Progress Note ---
Cardiology SOAP Progress Note Subjective: No further GI bleeding. Mild shortness of breath. Objective: I&O/Vital Signs 07/13/18 07/13/18 07/13/18 07/13/18 03:45 07:00 07:30 08:00 Temp 98.2 98.2 97.1 Pulse 76 75 73 Resp 18 22 B/P (MAP) 95/57 (70) 98/60 (73) Pulse Ox 98 99 O2 Delivery Nasal Cannula Nasal Cannula O2 Flow Rate 2.00 2.00 07/13/18 07/13/18 07/13/18 07/13/18 08:49 09:00 09:50 12:00 Temp 97.3 Pulse 73 76 Resp 22 20 B/P (MAP) 98/60 105/56 (72) Pulse Ox 97 98 98 97 O2 Delivery Nasal Cannula Nasal Cannula Room Air Nasal Cannula O2 Flow Rate 2.00 2.00 2.00 07/13/18 00:00 Intake Total 870 ml Output Total 950 ml Balance -80 ml Weight (Pounds): 168 Weight (Ounces): 1.0 Weight (Calculated Kilograms): [id number] Constitutional: appears stated age, AAO x 3; No apparent distress; well- developed, well-nourished Respiratory: No accessory muscle use, No respiratory distress, No chest tender , No chest expansion is symmetric; chest is bilaterally symmetric; No lungs clear to percussion; lungs clear to auscultation; No crackles, No rhonchi, No rales, No stridor, No wheezing, No pleural rub, No other Cardiovascular: regular rate-rhythm; No irregularly irregular, No extra beats, No parasternal heave is noted, No JVD, No edema, No bradycardia, No tachycardia , No point of maximal impulse, No cardiac thrills are palpable; S1 and S2; No gallop/S3, No gallop/S4, No diastolic murmur, No systolic murmur, No friction rub, No click, No other Gastrointestional: No tender, No soft, No round, No distended, No pulsatile mass, No organomegaly, No guarding, No rebound, No tenderness, No hernia, No mass, No audible bowel sounds, No abnormal bowel sounds, No abdominal bruits, No spleenomegaly, No other Extremities: pedal edema; No clubbing, No cyanosis, No significant edema Neurologic/Psychiatric: no motor/sensory deficits, alert, normal mood/affect, oriented x 3, power is 5/5 both on sides Skin: No normal color, No warm/dry, No cyanosis, No cool, No diaphoresis, No damp, No ecchymosis, No jaundice, No mottled; pallor; No rash, No tattoos/ piercings, No ulcerations, No rash on exposed areas, No ulcerations on exposed areas, No other Results/Procedures: Labs Laboratory Tests 07/12/18 16:28: Glucometer 321H 07/12/18 20:11: Glucometer 238H 07/13/18 05:15: White Blood Count 8.9, Red Blood Count 3.06L, Hemoglobin 9.5L, Hematocrit 29L, Mean Corpuscular Volume 95, Mean Corpuscular Hemoglobin 31, Mean Corpuscular Hemoglobin Concent 33, Red Cell Distribution Width 18.4H, Platelet Count 306, Mean Platelet Volume 10.1, Neutrophils (%) (Auto) 83H, Lymphocytes (%) (Auto) 11L, Monocytes (%) (Auto) 6, Eosinophils (%) (Auto) 1, Basophils (%) (Auto) 0, Neutrophils # (Auto) 7.3, Lymphocytes # (Auto) 1.0, Monocytes # (Auto) 0.5, Eosinophils # (Auto) 0.1, Basophils # (Auto) 0.0, Sodium Level 134L, Potassium Level 4.2, Chloride Level 105, Carbon Dioxide Level 21, Anion Gap 8, Blood Urea Nitrogen 10, Creatinine 0.94, Estimat Glomerular Filtration Rate > 60, BUN/ Creatinine Ratio 11, Glucose Level 230H, Calcium Level 8.3L, Corrected Calcium 9.2, Total Bilirubin 0.5, Aspartate Amino Transf (AST/SGOT) 17, Alanine Aminotransferase (ALT/SGPT) 23, Alkaline Phosphatase 85, Total Protein 4.8L, Albumin 2.9L 07/13/18 05:30: Glucometer 233H 07/13/18 11:07: Glucometer 306H Microbiology 07/07/18 Blood Culture - Final, Complete No growth 07/07/18 MRSA Screen - Final, Complete MRSA not isolated 07/06/18 Urine Culture - Final, Complete NO GROWTH A/P: Assessment/Dx: Active GI bleeding, Severe Peptic ulcer disease, Severe cardiomyopathy, Smoking, HTN, DM, Hyperlipidemia, Hypokalemia, CKD, Leg discomfort, Aortic insufficiency, ASD, Acute diastolic CHF, Pulmonary HTN, COPD Plan: Active GI bleeding, on PPI and sucrafate. received PRBCs. Hb improved and stable now. Severe Peptic ulcer disease, Severe cardiomyopathy, LVEF on Echo today 25% with anterior/apical hypokinesis. very likely due to CAD. Coronary angiography and intervention is recommended, however contraindicated with active GI bleeding and anemia. Caution with IV fluids. On lisinopril 5mg daily and metoprolol 25mg twice daily. cannot give aspirin or plavix for now. I spoke at length with Dr. Varma. She is going to advance diet and continue to monitor H/H. discussed with Dr. Varma today 2017. According to her coronary angiography can be performed on Thursday or Thursday. We will arrange accordingly. I appreciate Dr. Varma's input in this regard. Lifevest for primary prevention of sudden cardiac , before discharge. Smoking - smoking cessation was strongly recommended. HTN, lisinopril and BB. DM, continue metformin for now. Hyperlipidemia, will start statin. check lipid profile in am. Hypokalemia, CKD; Diabetic nephropathy likely. Leg discomfort, likely PAD. work up as an outpatient. Aortic insufficiency, follow clinically. 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 Acute diastolic CHF, pseudonormal diastolic dysfunction. caution with IV fluids. Pulmonary HTN, likely secondary to COPD. COPD, defer to primary team. Thank you for your consultation. Please call me if you have any questions. Kusum Chandra MD, FACP, FACC, FSCAI, FHRS, CCDS Interventional Cardiology Cardiac Electrophysiology Vascular Medicine and Endovascular Interventions Focused Exam Time of Focused Exam: 07:40 Jose CHANDRA MD Jul 13, 2018 09:59
[2018-07-13 12:00] VITALS: BP 105/56
--- NOTE | 2018-07-13 14:32 | Physical Therapy Daily Note ---
PT Daily Note-Current Subjective Patient in bed pre tx, agrees to PT, has pain of 8/10 "all over". Nurse notified of pain. Appearance Patient in chair post tx with nurse call, phone, tray, all needs met. Nurse aide in room to give a chair bath. Mental Status Patient Orientation: Normal For Age Attachments: Oxygen, [place] Catheter Transfers Functional [place] Measure 0=Not Assessed/NA 4=Minimal Assistance 1=Total Assistance 5=Supervision or Setup 2=Maximal Assistance 6=Modified [place] 3=Moderate Assistance 7=Complete IndependenceIRFPAI Quality Coding Scale 6 Independent with activity with or without an assistive device 5 Patient requires set up or clean up by helper. Patient completes activity by themselves 4 Supervision or touching assist (CGA). [place] provide cues , steadying assist 3 The helper provides less than half the effort to complete the activity 2 The helper provides more than half the effort to complete the activity 1 Dependent. The helper does all the effort to complete an activity 7 Patient refused to complete or attempt activity 9 The patient did not perform the activity before the current illness or injury 88 Not attempted due to Medical conditions or safety concerns Transfers (B, C, W/C) (FIM): 5 Scootin Rollin Supine to/from Sit: 6 Sit to/from Stand: 5 Bed to/from Chair: 5 Gait Training Gait (FIM): 1 Distance: 40' Gait Level of Assist: 5 Gait Persons Needed: 1 Gait Assistive Device: FWW Slow but steady ambulation, has right foot drop. Exercises Seated Therapy Exercises: Ankle pumps, Long arc quads Seated Reps: 20 Treatments bed mobility and transfers, ambulation, functional strengthening/AROM Assessment Current Status: Poor Progress decreased distance of ambulation PT Mcfp Goals Flash Welder Goals PT Mcfp Goals Time Frame: Jul 14, 2018 Transfers (B,C,W/C) (FIM): 6 Gait (FIM): 6 Gait distance (FIM): 3=150 ft Gait Level of Assist: 6 Gait Assistive Device: FWW PT Plan Problem List Problem List: Activity Tolerance, Functional Strength, Safety, Balance, Gait, Transfer, Bed Mobility, ROM Treatment/Plan Treatment Plan: Continue Plan of Care Treatment Plan: Bed Mobility, Education, Functional Activity Michel, Functional Strength, Gait, Safety, Therapeutic Exercise, Transfers Treatment Duration: Jul 14, 2018 Frequency: 6 times per week Estimated Hrs Per Day: .5 hour per day Patient and/or Family Agrees t: Yes Safety Risks/Education Patient Education: Gait Training, Transfer Techniques, Correct Positioning, Safety Issues Teaching Recipient: Patient Teaching Methods: Demonstration, Discussion Response to Teaching: Reinforcement Needed Time/GCodes Time In: 1415 Time Out: 1430 Total Billed Treatment Time: 15 Total Billed Treatment 1 visit GT 15' CRISTÓBAL MONTEMAYOR PT Jul 13, 2018 14:32
[2018-07-13 16:30] VITALS: BP 92/60
--- NOTE | 2018-07-13 16:33 | Progress Note ---
Subjective Date Seen by a Provider: Jul 13, 2018 Time Seen by a Provider: 16:28 Subjective/Events-last exam Patient doing well today. His hemoglobin has increased. He denies any blood. He is having from time to time shortness of breath. He is tolerating diet. He denies any nausea vomiting fever sweats chills. Focused Exam Time of Focused Exam: 07:40 Objective Exam Vital Signs Date Time Temp Pulse Resp B/P (MAP) Pulse Ox O2 Delivery O2 Flow Rate FiO2 07/13/18 13:00 78 07/13/18 12:00 97.3 76 20 105/56 (72) 97 Nasal Cannula 2.00 07/13/18 09:50 73 22 98/60 98 Room Air 07/13/18 09:00 98 Nasal Cannula 2.00 07/13/18 08:49 97 Nasal Cannula 2.00 07/13/18 08:00 97.1 73 22 98/60 (73) 99 Nasal Cannula 2.00 07/13/18 07:30 98.2 07/13/18 07:00 75 07/13/18 03:45 98.2 76 18 95/57 (70) 98 Nasal Cannula 2.00 07/13/18 01:00 80 07/12/18 23:55 98.6 79 22 92/53 (66) 98 Nasal Cannula 2.00 07/12/18 21:00 98 Nasal Cannula 2.00 07/12/18 19:36 79 07/12/18 19:14 97 Nasal Cannula 2.00 07/12/18 19:00 97.9 81 20 93/56 (68) 100 Nasal Cannula 2.00 I & O 07/13/18 07:00 Intake Total 1195 ml Output Total 1175 ml Balance 20 ml Capillary Refill : Less Than 3 SecondsLess Than 3 Seconds General Appearance: No Apparent Distress, WD/WN HEENT: Pharynx Normal; No Scleral Icterus (L), No Scleral Icterus (R) Respiratory: Chest Non Tender, No Accessory Muscle Use, No Respiratory Distress , Decreased Breath Sounds Cardiovascular: Regular Rate, Rhythm, No Gallop, No Murmur Gastrointestinal: non tender, soft, no organomegaly, no pulsatile mass Extremity: Non Tender, Swelling (Bilateral lower extremity improving slowly) Neurologic/Psychiatric: Alert, Oriented x3, No Motor/Sensory Deficits, Normal Mood/Affect, 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 as Tested Skin: Normal Color, Warm/Dry Results Lab Laboratory Tests 07/12/18 20:11: Glucometer 238H 07/13/18 05:15: White Blood Count 8.9, Red Blood Count 3.06L, Hemoglobin 9.5L, Hematocrit 29L, Mean Corpuscular Volume 95, Mean Corpuscular Hemoglobin 31, Mean Corpuscular Hemoglobin Concent 33, Red Cell Distribution Width 18.4H, Platelet Count 306, Mean Platelet Volume 10.1, Neutrophils (%) (Auto) 83H, Lymphocytes (%) (Auto) 11L, Monocytes (%) (Auto) 6, Eosinophils (%) (Auto) 1, Basophils (%) (Auto) 0, Neutrophils # (Auto) 7.3, Lymphocytes # (Auto) 1.0, Monocytes # (Auto) 0.5, Eosinophils # (Auto) 0.1, Basophils # (Auto) 0.0, Sodium Level 134L, Potassium Level 4.2, Chloride Level 105, Carbon Dioxide Level 21, Anion Gap 8, Blood Urea Nitrogen 10, Creatinine 0.94, Estimat Glomerular Filtration Rate > 60, BUN/ Creatinine Ratio 11, Glucose Level 230H, Calcium Level 8.3L, Corrected Calcium 9.2, Total Bilirubin 0.5, Aspartate Amino Transf (AST/SGOT) 17, Alanine Aminotransferase (ALT/SGPT) 23, Alkaline Phosphatase 85, Total Protein 4.8L, Albumin 2.9L 07/13/18 05:30: Glucometer 233H 07/13/18 11:07: Glucometer 306H 07/13/18 16:01: Glucometer 148H Microbiology 07/07/18 Blood Culture - Final, Complete No growth 07/07/18 MRSA Screen - Final, Complete MRSA not isolated 07/06/18 Urine Culture - Final, Complete NO GROWTH Assessment/Plan Assessment/Plan Assessment/Plan Anemia with GI bleed most likely upper due to duodenal ulcers and hx dark tarry stools Posttraumatic stress disorder Duodenal ulcers - no signs of active bleed seen during EGD Patient on Protonix, Carafate, tolerating diet. H/H today 9.5 stable; will continue to follow. If drops may need repeat endoscopy; possibly lower as well as upper, likely do as outpatient for follow up. Discussed with Dr. Varma timing of cardiac catheterization. Clinical Quality Measures DVT/VTE Risk/Contraindication: Risk Factor Score Per Nursin RFS Level Per Nursing on Admit: 4+=Very High JAVIER MARTINEZ DO Jul 13, 2018 16:33
[2018-07-13] MEDS: NYSTATIN ORAL SUSP 5 ML UDC PO SCH ×2 (18:09→23:31)
[2018-07-13] MEDS: TAMSULOSIN 0.4 MG (FLOMAX) CAP PO SCH (18:09)
--- NOTE | 2018-07-13 20:15 | Progress Note (SOAP) ---
Subjective Subjective/Events-last exam Patient states that he is doing well this AM. He got more sleep last night. Denies any shortness of breath or chest pain. Review of Systems Date Seen by Provider: Jul 13, 2018 Time Seen by Provider: 09:40 Pulmonary: Dyspnea Cardiovascular: Edema; No: Chest Pain, Palpitations Gastrointestinal: Abdominal Pain; No: Nausea, Vomiting Neurological: Weakness Focused Exam Time of Focused Exam: 07:40 Objective Exam Last Set of Vital Signs Vital Signs Date Time Temp Pulse Resp B/P (MAP) Pulse Ox O2 Delivery O2 Flow Rate FiO2 07/13/18 19:17 96 Nasal Cannula 1.00 07/13/18 16:55 97.3 07/13/18 16:30 75 16 92/60 (71) Capillary Refill : Less Than 3 SecondsLess Than 3 Seconds I&O Intake and Output 07/13/18 00:00 Intake Total 1170 ml Output Total 1275 ml Balance -105 ml Intake Oral 1170 ml Output Urine Total 1275 ml # Bowel Movements 1 General: Alert, Oriented X3, Cooperative, No Acute Distress HEENT: Mucous Memb Moist/[place] Lungs: Other (basilar wheezing, normal work of breathing) Heart: Regular Rate, No Murmurs Abdomen: Normal Bowel Sounds, Soft, No Tenderness, No Hepatosplenomegaly, No Masses Extremities: Other (2+ pitting edema bilaterally) Neuro: Strength at 5/5 X4 Ext, Cranial Nerves 3-12 NL Psych/Mental Status: Mental Status NL, Mood NL Results/Procedures Lab Laboratory Tests 07/12/18 20:11: Glucometer 238H 07/13/18 05:15: White Blood Count 8.9, Red Blood Count 3.06L, Hemoglobin 9.5L, Hematocrit 29L, Mean Corpuscular Volume 95, Mean Corpuscular Hemoglobin 31, Mean Corpuscular Hemoglobin Concent 33, Red Cell Distribution Width 18.4H, Platelet Count 306, Mean Platelet Volume 10.1, Neutrophils (%) (Auto) 83H, Lymphocytes (%) (Auto) 11L, Monocytes (%) (Auto) 6, Eosinophils (%) (Auto) 1, Basophils (%) (Auto) 0, Neutrophils # (Auto) 7.3, Lymphocytes # (Auto) 1.0, Monocytes # (Auto) 0.5, Eosinophils # (Auto) 0.1, Basophils # (Auto) 0.0, Sodium Level 134L, Potassium Level 4.2, Chloride Level 105, Carbon Dioxide Level 21, Anion Gap 8, Blood Urea Nitrogen 10, Creatinine 0.94, Estimat Glomerular Filtration Rate > 60, BUN/ Creatinine Ratio 11, Glucose Level 230H, Calcium Level 8.3L, Corrected Calcium 9.2, Total Bilirubin 0.5, Aspartate Amino Transf (AST/SGOT) 17, Alanine Aminotransferase (ALT/SGPT) 23, Alkaline Phosphatase 85, Total Protein 4.8L, Albumin 2.9L 07/13/18 05:30: Glucometer 233H 07/13/18 11:07: Glucometer 306H 07/13/18 16:01: Glucometer 148H Microbiology 07/07/18 Blood Culture - Final, Complete No growth 07/07/18 MRSA Screen - Final, Complete MRSA not isolated 07/06/18 Urine Culture - Final, Complete NO GROWTH Radiology Assessment/Plan Assessment/Plan Assessment & Plan 1. GI Bleed Pt required another unit of PRBCs last night; Hgb stable for now. EGD with Acharya today. Consider colonoscopy outpatient, should EGD come back negative. 2. Right Foot Drop MRI showed only lumbar spondylosis. Not a strong explanation for his foot drop. No inciting event. 3. DM Type 2 Sliding scale Novolog. Observe. 4. Acute Kidney Injury Improved. Unknown hx. 5. Leukocytosis Unknown origin. Observe. (1) GI bleed Status: Acute Assessment & Plan: Pt required another unit of PRBCs last night; Hgb stable for now. EGD with Acharya today. Consider colonoscopy outpatient, should EGD come back negative. 07/09- EGD yesterday with large ulcers, not actively bleeding. Added sucralfate to pantoprazole but hemoglobin below 6 again this am. 2 units PRBCs, f/u after. 07/10- No vomiting, Hgb stable since transfusion, if continues to be stable would be stable for cath Thursday, Will advance diet today per surgery recommendations 07/11- Hgb stable, Will get retic count today, Start Fe infusions 07/12- Hgb stable today, will discuss case with surgery to see how long they would like to wait for cath, IV iron 07/13: Hgb Stable, continue IV iron Qualifiers: Qualified Codes: K92.2 - Gastrointestinal hemorrhage, unspecified (2) Acute systolic CHF (congestive heart failure) Status: Acute Assessment & Plan: 07/10: Echo with EF 25%, plan for cath when anemia is stable 07/11: Discussed case with cardiology, waiting to get cath procedure done 07/13: Cath to be done Thursday or Thursday (3) Hyperglycemia Status: Acute Assessment & Plan: sliding scale insulin, diabetic diet when taking PO 07/10: A1c pending (4) Lower extremity edema Status: Acute Assessment & Plan: Venous insufficiency/immobility versus related to his kidney function. Consider echocardiogram pending clinical course. 07/09- complaining of cough as well, will obtain echocardiogram 07/10- Abnormal echo, EF 25%, cardiology following 07/12: Discussed the importance of activity, getting to edge of bed, leg exercises and elevation of feet (5) Severe anemia Status: Acute Assessment & Plan: Pt required another unit of PRBCs last night. EGD with Patrizia today. Consider colonscopy outpatient, should EGD come back negative. 07/09- hgb below 6 this am, 2 units prbc today, repeat hemoglobin after. (6) Hypokalemia Status: Resolved Assessment & Plan: Replace and recheck. (7) Lactic acidosis Status: Resolved Assessment & Plan: Unclear etiology with no source of infection. Improved with IVF. Denies abdominal pain to suggest ischemia. (8) Diabetes mellitus, type 2 Status: Chronic Assessment & Plan: Diabetic diet when taking oral. Sliding scale insulin. Qualifiers: (9) Urinary retention due to benign prostatic hyperplasia Status: Acute Assessment & Plan: Catheter placed 07/07 due to significant retention. 07/08 start Flomax, may need to d/c with liriano depending on course. (10) Right foot drop Status: Acute Assessment & Plan: MRI showed only lumbar spondylosis. No clear explanation for his foot drop. 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 (11) Poor appetite Status: Acute Assessment & Plan: Denies pain, concern for underlying serious condition given his anemia and weakness. Endoscopy recommended in vs outpatient depending on course. 07/08 EGD today 07/09 EGD yesterday with ulcers, treating with pantoprazole and sucralfate, biopsies pending (12) Leg weakness, bilateral Status: Acute Assessment & Plan: PT. (13) BPH (benign prostatic hyperplasia) Status: Chronic Assessment & Plan: Previously on medication, he stopped due to side effects. Qualifiers: (14) PTSD (post-traumatic stress disorder) Status: Chronic Assessment & Plan: Resume home medications. (15) COPD (chronic obstructive pulmonary disease) Status: Chronic Assessment & Plan: Resume home inhalers (16) DVT prophylaxis Status: Acute Assessment & Plan: No pharmacologic ppx with active bleed. SCDs. (17) Debility Assessment & Plan: PT/OT Clinical Quality Measures DVT/VTE Risk/Contraindication: Risk Factor Score Per Nursin RFS Level Per Nursing on Admit: 4+=Very High GENNA DUMONT MD Jul 13, 2018 20:15
[2018-07-13 20:40] VITALS: BP 104/61
[2018-07-14] VITALS: BP 113/63
[2018-07-14 04:00] VITALS: BP 108/61
[2018-07-14 06:19] LABS: BASOPHILS % (AUTO) 0 % (0-10); EOSINOPHILS # (AUTO) 0.1 10^3/uL (0.0-0.3); EOSINOPHILS % (AUTO) 1 % (0-10); HEMATOCRIT 26 % (40-54); HEMOGLOBIN 8.4 G/DL (13.3-17.7); LYMPHOCYTES # (AUTO) 0.6 X 10^3 (1.0-4.0); LYMPHOCYTES % (AUTO) 8 % (12-44); MEAN CORPUSCULAR HEMOGLOBIN 30 PG (25-34); MEAN CORPUSCULAR HGB CONC 32 G/DL (32-36); MEAN CORPUSCULAR VOLUME 95 FL (80-99); MEAN PLATELET VOLUME 9.8 FL (7.4-10.4); MONOCYTES # (AUTO) 0.5 X 10^3 (0.0-1.0); MONOCYTES % (AUTO) 7 % (0-12); NEUTROPHILS # (AUTO) 6.5 X 10^3 (1.8-7.8); NEUTROPHILS % (AUTO) 84 % (42-75); PLATELET COUNT 281 10^3/uL (130-400); RED BLOOD COUNT 2.76 10^6/uL (4.35-5.85); RED CELL DISTRIBUTION WIDTH 17.7 % (10.0-14.5); WHITE BLOOD COUNT 7.7 10^3/uL (4.3-11.0)
[2018-07-14 06:39] LABS: ALANINE AMINOTRANSFERASE 15 U/L (0-55); ALBUMIN 2.4 GM/DL (3.2-4.5); ALKALINE PHOSPHATASE 74 U/L (40-136); BILIRUBIN,TOTAL 0.3 MG/DL (0.1-1.0); BUN/CREATININE RATIO 10; CALCIUM 7.9 MG/DL (8.5-10.1); CARBON DIOXIDE 22 MMOL/L (21-32); CHLORIDE 106 MMOL/L (98-107); GFR ESTIMATED > 60; GLUCOSE 267 MG/DL (70-105); POTASSIUM 3.9 MMOL/L (3.6-5.0); SODIUM 134 MMOL/L (135-145); TOTAL PROTEIN 4.1 GM/DL (6.4-8.2)
[2018-07-14] MEDS: SUCRALFATE 1 GM (CARAFATE) TAB PO SCH ×4 (07:09→21:58)
[2018-07-14] MEDS: inSUlin ASPART (NovoLOG) 1 UNIT/0.01 ML (CHARGE PER UNIT) SC SCH ×4 (07:09→21:58)
[2018-07-14] MEDS: NYSTATIN ORAL SUSP 5 ML UDC PO SCH ×3 (07:09→18:14)
[2018-07-14] MEDS: ACETAMINOPHEN 500 MG TAB (TYLENOL) PO PRN (07:10)
[2018-07-14] MEDS: CATHETER FLUSH 10 ML SYR IV SCH ×3 (07:12→21:58)
[2018-07-14] MEDS: RT-ADVAIR HFA 115/21 MCG PER PUFF IH SCH ×2 (07:32→19:24)
[2018-07-14] MEDS: diphenhydrAMINE 25 MG TAB (BENADRYL) PO PRN ×2 (07:43→20:55)
[2018-07-14 08:00] VITALS: BP 132/63
[2018-07-14] MEDS: PANTOPRAZOLE 40 MG (PROTONIX) TAB PO SCH ×2 (08:56→21:58)
[2018-07-14] MEDS: lisINopril 5 MG (PRINIVIL) TABLET PO SCH (08:56)
[2018-07-14] MEDS: NICOTINE 21 MG (NICODERM) PATCH TD SCH (08:57)
[2018-07-14] MEDS: PATCH REMOVAL TP SCH (08:57)
[2018-07-14] MEDS: ALPRAZolam 0.5 MG (XANAX) TAB PO SCH ×2 (08:57→20:55)
[2018-07-14] MEDS: PARoxetine 20 MG (PAXIL) TAB PO SCH ×2 (08:57→20:55)
[2018-07-14] MEDS: UMECLIDINIUM BROMIDE (INCRUSE ELLIPTA) 7'S IH SCH (10:19)
--- NOTE | 2018-07-14 11:07 | Physical Therapy Daily Note ---
PT Daily Note-Current Subjective Pt reports he is only up for exercises in bed right now. Offered pt to sit at EOB but stating he is too tired and will do it later and maybe sit up in chair later Pain Numeric Pain Scale: 5-Moderate Pain Comment: occasional pain in buttock relieved some with repositioning Appearance Pt supine in bed with HOB elevated for easier breathing, family and nurse present At end of session pt reclined in bed with HOB elevated, knees elevated, pillow under thighs and pillow under lower legs, call light and phone within reach, family still present and nurse entered room. Transfers Functional [place] Measure 0=Not Assessed/NA 4=Minimal Assistance 1=Total Assistance 5=Supervision or Setup 2=Maximal Assistance 6=Modified [place] 3=Moderate Assistance 7=Complete IndependenceIRFPAI Quality Coding Scale 6 Independent with activity with or without an assistive device 5 Patient requires set up or clean up by helper. Patient completes activity by themselves 4 Supervision or touching assist (CGA). [place] provide cues , steadying assist 3 The helper provides less than half the effort to complete the activity 2 The helper provides more than half the effort to complete the activity 1 Dependent. The helper does all the effort to complete an activity 7 Patient refused to complete or attempt activity 9 The patient did not perform the activity before the current illness or injury 88 Not attempted due to Medical conditions or safety concerns Exercises Supine Ex: Bridging, Ankle pumps, Heel Slides, Short Arc Quads, Straight leg raise, Hip abd/add Supine Reps: 20 AROM with min encouragement and instruction for correct technique with all ex's except R ankle DF which required PROM/AAROM due to foot drop, is able to PF actively and against resistance Treatments Exercise Assessment Current Status: Poor Progress Pt agreeable to only bed exercises this am PT Supply Specialist Goals Supply Specialist Goals PT [facility] Goals Time Frame: Jul 14, 2018 Transfers (B,C,W/C) (FIM): 6 Gait (FIM): 6 Gait distance (FIM): 3=150 ft Gait Level of Assist: 6 Gait Assistive Device: FWW PT Plan Problem List Problem List: Activity Tolerance, Functional Strength, Safety, Balance, Gait, Transfer, Bed Mobility, ROM Treatment/Plan Treatment Plan: Continue Plan of Care Treatment Plan: Bed Mobility, Education, Functional Activity Michel, Functional Strength, Gait, Safety, Therapeutic Exercise, Transfers Treatment Duration: Jul 14, 2018 Frequency: 6 times per week Estimated Hrs Per Day: .5 hour per day Patient and/or Family Agrees t: Yes Time/GCodes Time In: 1035 Time Out: 1055 Total Billed Treatment Time: 20 Total Billed Treatment 1 Visit EX x1 ANNY BEARD COW RIDER Jul 14, 2018 11:07
[2018-07-14 12:00] VITALS: BP 103/61
--- NOTE | 2018-07-14 13:19 | Cardiology Progress Note ---
Cardiology SOAP Progress Note Subjective: No significant cardiac complaints. Objective: I&O/Vital Signs 07/14/18 07/14/18 07/14/18 07/14/18 07:00 07:32 08:00 09:00 Temp 97.0 Pulse 84 92 Resp 20 B/P (MAP) 132/63 (86) Pulse Ox 98 97 O2 Delivery Nasal Cannula Nasal Cannula Nasal Cannula O2 Flow Rate 2.00 2.00 2.00 07/14/18 07/14/18 07/14/18 07/14/18 10:20 12:00 13:00 16:58 Temp 97.3 97.8 Pulse 78 72 84 Resp 20 20 B/P (MAP) 103/61 (75) 96/61 (73) Pulse Ox 97 100 100 O2 Delivery Nasal Cannula Nasal Cannula Nasal Cannula O2 Flow Rate 2.00 2.00 5.00 07/14/18 00:00 Intake Total 1350 ml Output Total 875 ml Balance 475 ml Weight (Pounds): 168 Weight (Ounces): 1.0 Weight (Calculated Kilograms): [id number] Constitutional: appears stated age, AAO x 3; No apparent distress; well- developed, well-nourished Respiratory: No accessory muscle use, No respiratory distress, No chest tender , No chest expansion is symmetric; chest is bilaterally symmetric; No lungs clear to percussion; lungs clear to auscultation; No crackles, No rhonchi, No rales, No stridor, No wheezing, No pleural rub, No other Cardiovascular: regular rate-rhythm; No irregularly irregular, No extra beats, No parasternal heave is noted, No JVD, No edema, No bradycardia, No tachycardia , No point of maximal impulse, No cardiac thrills are palpable; S1 and S2; No gallop/S3, No gallop/S4, No diastolic murmur, No systolic murmur, No friction rub, No click, No other Gastrointestional: No tender, No soft, No round, No distended, No pulsatile mass, No organomegaly, No guarding, No rebound, No tenderness, No hernia, No mass, No audible bowel sounds, No abnormal bowel sounds, No abdominal bruits, No spleenomegaly, No other Extremities: pedal edema; No clubbing, No cyanosis, No significant edema Neurologic/Psychiatric: no motor/sensory deficits, alert, normal mood/affect, oriented x 3, power is 5/5 both on sides Skin: No normal color, No warm/dry, No cyanosis, No cool, No diaphoresis, No damp, No ecchymosis, No jaundice, No mottled; pallor; No rash, No tattoos/ piercings, No ulcerations, No rash on exposed areas, No ulcerations on exposed areas, No other Results/Procedures: Labs Laboratory Tests 07/13/18 20:18: Glucometer 224H 07/14/18 05:59: White Blood Count 7.7, Red Blood Count 2.76L, Hemoglobin 8.4L, Hematocrit 26L, Mean Corpuscular Volume 95, Mean Corpuscular Hemoglobin 30, Mean Corpuscular Hemoglobin Concent 32, Red Cell Distribution Width 17.7H, Platelet Count 281, Mean Platelet Volume 9.8, Neutrophils (%) (Auto) 84H, Lymphocytes (%) (Auto) 8L , Monocytes (%) (Auto) 7, Eosinophils (%) (Auto) 1, Basophils (%) (Auto) 0, Neutrophils # (Auto) 6.5, Lymphocytes # (Auto) 0.6L, Monocytes # (Auto) 0.5, Eosinophils # (Auto) 0.1, Basophils # (Auto) 0.0, Sodium Level 134L, Potassium Level 3.9, Chloride Level 106, Carbon Dioxide Level 22, Anion Gap 6, Blood Urea Nitrogen 10, Creatinine 1.00, Estimat Glomerular Filtration Rate > 60, BUN/ Creatinine Ratio 10, Glucose Level 267H, Calcium Level 7.9L, Corrected Calcium 9.2, Total Bilirubin 0.3, Aspartate Amino Transf (AST/SGOT) 11, Alanine Aminotransferase (ALT/SGPT) 15, Alkaline Phosphatase 74, Total Protein 4.1L, Albumin 2.4L 07/14/18 06:46: Glucometer 276H 07/14/18 11:10: Glucometer 268H 07/14/18 16:25: Glucometer 244H Microbiology 07/07/18 Blood Culture - Final, Complete No growth 07/07/18 MRSA Screen - Final, Complete MRSA not isolated 07/06/18 Urine Culture - Final, Complete NO GROWTH A/P: Assessment/Dx: Active GI bleeding, Severe Peptic ulcer disease, Severe cardiomyopathy, Smoking, HTN, DM, Hyperlipidemia, Hypokalemia, CKD, Leg discomfort, Aortic insufficiency, ASD, Acute diastolic CHF, Pulmonary HTN, COPD Plan: Active GI bleeding, on PPI and sucrafate. received PRBCs. Hb improved and stable now. Severe Peptic ulcer disease, Severe cardiomyopathy, LVEF on Echo today 25% with anterior/apical hypokinesis. very likely due to CAD. Coronary angiography and intervention is recommended, however contraindicated with active GI bleeding and anemia. Caution with IV fluids. On lisinopril 5mg daily and metoprolol 25mg twice daily. cannot give aspirin or plavix for now. I spoke at length with Dr. Varma. She is going to advance diet and continue to monitor H/H. discussed with Dr. Varma today 2017. According to her coronary angiography can be performed on Thursday. We will arrange accordingly. I appreciate Dr. Varma's input in this regard. Lifevest for primary prevention of sudden cardiac , before discharge. Smoking - smoking cessation was strongly recommended. HTN, lisinopril and BB. DM, continue metformin for now. Hyperlipidemia, will start statin. check lipid profile in am. Hypokalemia, CKD; Diabetic nephropathy likely. Leg discomfort, likely PAD. work up as an outpatient. Aortic insufficiency, follow clinically. 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 Acute diastolic CHF, pseudonormal diastolic dysfunction. caution with IV fluids. Pulmonary HTN, likely secondary to COPD. COPD, defer to primary team. Thank you for your consultation. Please call me if you have any questions. Kusum Chandra MD, FACP, FACC, FSCAI, FHRS, CCDS Interventional Cardiology Cardiac Electrophysiology Vascular Medicine and Endovascular Interventions Focused Exam Time of Focused Exam: 07:40 Jose CHANDRA MD Jul 14, 2018 1:19 pm
--- NOTE | 2018-07-14 13:49 | Progress Note (SOAP) ---
Subjective Subjective/Events-last exam Patient states that he was able to sleep better last night. Denies any nausea or vomiting. No blood in stool. Tolerating PO diet. Review of Systems Date Seen by Provider: Jul 14, 2018 Time Seen by Provider: 10:00 Pulmonary: Dyspnea; No Cough Cardiovascular: Chest Pain; No: Palpitations Gastrointestinal: No: Nausea, Vomiting, Abdominal Pain Neurological: Weakness Focused Exam Time of Focused Exam: 07:40 Objective Exam Last Set of Vital Signs Vital Signs Date Time Temp Pulse Resp B/P (MAP) Pulse Ox O2 Delivery O2 Flow Rate FiO2 07/14/18 12:00 97.3 78 20 103/61 (75) 100 Nasal Cannula 2.00 Capillary Refill : Less Than 3 SecondsLess Than 3 Seconds I&O Intake and Output 07/14/18 00:00 Intake Total 1675 ml Output Total 1100 ml Balance 575 ml Intake Oral 1675 ml Output Urine Total 1100 ml General: Alert, Oriented X3, Cooperative, No Acute Distress HEENT: Mucous Memb Moist/Silex Lungs: Other (basilar crackles, normal work of breathing) Heart: Regular Rate, No Murmurs Abdomen: Normal Bowel Sounds, Soft, No Tenderness, No Masses Extremities: No Tenderness/Swelling, Other (2+ pitting edema) Neuro: Normal Speech, Cranial Nerves 3-12 NL Results/Procedures Lab Laboratory Tests 07/13/18 16:01: Glucometer 148H 07/13/18 20:18: Glucometer 224H 07/14/18 05:59: White Blood Count 7.7, Red Blood Count 2.76L, Hemoglobin 8.4L, Hematocrit 26L, Mean Corpuscular Volume 95, Mean Corpuscular Hemoglobin 30, Mean Corpuscular Hemoglobin Concent 32, Red Cell Distribution Width 17.7H, Platelet Count 281, Mean Platelet Volume 9.8, Neutrophils (%) (Auto) 84H, Lymphocytes (%) (Auto) 8L , Monocytes (%) (Auto) 7, Eosinophils (%) (Auto) 1, Basophils (%) (Auto) 0, Neutrophils # (Auto) 6.5, Lymphocytes # (Auto) 0.6L, Monocytes # (Auto) 0.5, Eosinophils # (Auto) 0.1, Basophils # (Auto) 0.0, Sodium Level 134L, Potassium Level 3.9, Chloride Level 106, Carbon Dioxide Level 22, Anion Gap 6, Blood Urea Nitrogen 10, Creatinine 1.00, Estimat Glomerular Filtration Rate > 60, BUN/ Creatinine Ratio 10, Glucose Level 267H, Calcium Level 7.9L, Corrected Calcium 9.2, Total Bilirubin 0.3, Aspartate Amino Transf (AST/SGOT) 11, Alanine Aminotransferase (ALT/SGPT) 15, Alkaline Phosphatase 74, Total Protein 4.1L, Albumin 2.4L 07/14/18 06:46: Glucometer 276H 07/14/18 11:10: Glucometer 268H Microbiology 07/07/18 Blood Culture - Final, Complete No growth 07/07/18 MRSA Screen - Final, Complete MRSA not isolated 07/06/18 Urine Culture - Final, Complete NO GROWTH Radiology Assessment/Plan Assessment/Plan Assessment & Plan 1. GI Bleed Pt required another unit of PRBCs last night; Hgb stable for now. EGD with Patrizia today. Consider colonoscopy outpatient, should EGD come back negative. 2. Right Foot Drop MRI showed only lumbar spondylosis. Not a strong explanation for his foot drop. No inciting event. 3. DM Type 2 Sliding scale Novolog. Observe. 4. Acute Kidney Injury Improved. Unknown hx. 5. Leukocytosis Unknown origin. Observe. (1) GI bleed Status: Acute Assessment & Plan: Pt required another unit of PRBCs last night; Hgb stable for now. EGD with Patrizia today. Consider colonoscopy outpatient, should EGD come back negative. 07/09- EGD yesterday with large ulcers, not actively bleeding. Added sucralfate to pantoprazole but hemoglobin below 6 again this am. 2 units PRBCs, f/u after. 07/10- No vomiting, Hgb stable since transfusion, if continues to be stable would be stable for cath Thursday, Will advance diet today per surgery recommendations 07/11- Hgb stable, Will get retic count today, Start Fe infusions 07/12- Hgb stable today, will discuss case with surgery to see how long they would like to wait for cath, IV iron 07/13: Hgb Stable, continue IV iron 07/14: Hgb down today, discussed with Dr Acharya and will continue to monitor, Continue IV iron Qualifiers: Qualified Codes: K92.2 - Gastrointestinal hemorrhage, unspecified (2) Acute systolic CHF (congestive heart failure) Status: Acute Assessment & Plan: 07/10: Echo with EF 25%, plan for cath when anemia is stable 07/11: Discussed case with cardiology, waiting to get cath procedure done 07/13: Cath to be done Thursday or Thursday (3) Hyperglycemia Status: Acute Assessment & Plan: sliding scale insulin, diabetic diet when taking PO 07/10: A1c pending (4) Lower extremity edema Status: Acute Assessment & Plan: Venous insufficiency/immobility versus related to his kidney function. Consider echocardiogram pending clinical course. 07/09- complaining of cough as well, will obtain echocardiogram 07/10- Abnormal echo, EF 25%, cardiology following 07/12: Discussed the importance of activity, getting to edge of bed, leg exercises and elevation of feet 07/14: Patient up in chair today (5) Severe anemia Status: Acute Assessment & Plan: Pt required another unit of PRBCs last night. EGD with Patrizia today. Consider colonscopy outpatient, should EGD come back negative. 07/09- hgb below 6 this am, 2 units prbc today, repeat hemoglobin after. (6) Hypokalemia Status: Resolved Assessment & Plan: Replace and recheck. (7) Lactic acidosis Status: Resolved Assessment & Plan: Unclear etiology with no source of infection. Improved with IVF. Denies abdominal pain to suggest ischemia. (8) Diabetes mellitus, type 2 Status: Chronic Assessment & Plan: Diabetic diet when taking oral. Sliding scale insulin. Qualifiers: (9) Urinary retention due to benign prostatic hyperplasia Status: Acute Assessment & Plan: Catheter placed 07/07 due to significant retention. 07/08 start Flomax, may need to d/c with liriano depending on course. (10) Right foot drop Status: Acute Assessment & Plan: MRI showed only lumbar spondylosis. No clear explanation for his foot drop. 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 (11) Poor appetite Status: Acute Assessment & Plan: Denies pain, concern for underlying serious condition given his anemia and weakness. Endoscopy recommended in vs outpatient depending on course. 07/08 EGD today 07/09 EGD yesterday with ulcers, treating with pantoprazole and sucralfate, biopsies pending (12) Leg weakness, bilateral Status: Acute Assessment & Plan: PT. (13) BPH (benign prostatic hyperplasia) Status: Chronic Assessment & Plan: Previously on medication, he stopped due to side effects. Qualifiers: (14) PTSD (post-traumatic stress disorder) Status: Chronic Assessment & Plan: Resume home medications. (15) COPD (chronic obstructive pulmonary disease) Status: Chronic Assessment & Plan: Resume home inhalers (16) DVT prophylaxis Status: Acute Assessment & Plan: No pharmacologic ppx with active bleed. SCDs. (17) Debility Assessment & Plan: PT/OT Clinical Quality Measures DVT/VTE Risk/Contraindication: Risk Factor Score Per Nursin RFS Level Per Nursing on Admit: 4+=Very High GENNA DUMONT MD Jul 14, 2018 13:49
[2018-07-14 16:58] VITALS: BP 96/61
[2018-07-14] MEDS: TAMSULOSIN 0.4 MG (FLOMAX) CAP PO SCH (18:14)
[2018-07-14] MEDS: RT-ALBUTEROL SULF 2.5 MG/3 ML PRE-MIX VIAL INH PRN (20:38)
[2018-07-14 20:47] VITALS: BP 113/75
--- NOTE | 2018-07-14 21:48 | Progress Note ---
Subjective Date Seen by a Provider: Jul 14, 2018 Time Seen by a Provider: 07:35 Subjective/Events-last exam Patient was on anxiety this morning. Patient states advancing his oxygen helped some helped him get through his episodes from posttraumatic stress. Patient is tolerating diet. He denies any blood in the stool that he's noticed. He is not having any emesis. He denies any fever sweats chills shortness of breath or chest pain at this time. Fissure were planning on her presentation next week or so. His hemoglobin had dropped from yesterday. Family at bedside. Focused Exam Time of Focused Exam: 07:40 Objective Exam Vital Signs Date Time Temp Pulse Resp B/P (MAP) Pulse Ox O2 Delivery O2 Flow Rate FiO2 07/14/18 20:47 98.2 78 20 113/75 (88) 99 Nasal Cannula 2.00 07/14/18 20:38 95 Nasal Cannula 2.00 07/14/18 19:24 98 Nasal Cannula 4.00 07/14/18 19:00 90 07/14/18 16:58 97.8 84 20 96/61 (73) 100 Nasal Cannula 5.00 07/14/18 13:00 72 07/14/18 12:00 97.3 78 20 103/61 (75) 100 Nasal Cannula 2.00 07/14/18 10:20 97 Nasal Cannula 2.00 07/14/18 09:00 Nasal Cannula 2.00 07/14/18 08:00 97.0 92 20 132/63 (86) 97 Nasal Cannula 2.00 07/14/18 07:32 98 Nasal Cannula 2.00 07/14/18 07:00 84 07/14/18 04:00 97.2 82 20 108/61 (77) 98 Nasal Cannula 2.00 07/14/18 01:00 80 07/14/18 00:00 97.5 78 20 113/63 (80) 99 Nasal Cannula 2.00 I & O 07/14/18 07:00 Intake Total 1750 ml Output Total 1750 ml Balance 0 ml Capillary Refill : Less Than 3 SecondsLess Than 3 Seconds General Appearance: No Apparent Distress, WD/WN HEENT: Pharynx Normal; No Scleral Icterus (L), No Scleral Icterus (R) Respiratory: Chest Non Tender, No Accessory Muscle Use, No Respiratory Distress , Decreased Breath Sounds Cardiovascular: Regular Rate, Rhythm, No Gallop, No Murmur Gastrointestinal: non tender, soft, no organomegaly, no pulsatile mass Extremity: Non Tender, Swelling (Bilateral lower extremity improving slowly) Neurologic/Psychiatric: Alert, Oriented x3, No Motor/Sensory Deficits, Normal Mood/Affect, director enterprise sales II-XII Norm as Tested Skin: Normal Color, Warm/Dry Results Lab Laboratory Tests 07/14/18 05:59: White Blood Count 7.7, Red Blood Count 2.76L, Hemoglobin 8.4L, Hematocrit 26L, Mean Corpuscular Volume 95, Mean Corpuscular Hemoglobin 30, Mean Corpuscular Hemoglobin Concent 32, Red Cell Distribution Width 17.7H, Platelet Count 281, Mean Platelet Volume 9.8, Neutrophils (%) (Auto) 84H, Lymphocytes (%) (Auto) 8L , Monocytes (%) (Auto) 7, Eosinophils (%) (Auto) 1, Basophils (%) (Auto) 0, Neutrophils # (Auto) 6.5, Lymphocytes # (Auto) 0.6L, Monocytes # (Auto) 0.5, Eosinophils # (Auto) 0.1, Basophils # (Auto) 0.0, Sodium Level 134L, Potassium Level 3.9, Chloride Level 106, Carbon Dioxide Level 22, Anion Gap 6, Blood Urea Nitrogen 10, Creatinine 1.00, Estimat Glomerular Filtration Rate > 60, BUN/ Creatinine Ratio 10, Glucose Level 267H, Calcium Level 7.9L, Corrected Calcium 9.2, Total Bilirubin 0.3, Aspartate Amino Transf (AST/SGOT) 11, Alanine Aminotransferase (ALT/SGPT) 15, Alkaline Phosphatase 74, Total Protein 4.1L, Albumin 2.4L 07/14/18 06:46: Glucometer 276H 07/14/18 11:10: Glucometer 268H 07/14/18 16:25: Glucometer 244H 07/14/18 21:10: Glucometer 277H Microbiology 07/07/18 Blood Culture - Final, Complete No growth 07/07/18 MRSA Screen - Final, Complete MRSA not isolated 07/06/18 Urine Culture - Final, Complete NO GROWTH Assessment/Plan Assessment/Plan Assessment/Plan Anemia with GI bleed most likely upper due to duodenal ulcers and hx dark tarry stools Posttraumatic stress disorder Duodenal ulcers - no signs of active bleed seen during EGD Patient on Protonix, Carafate, tolerating diet. H/H down today will continue to follow. If continues to drop may need repeat endoscopy; possibly lower as well as upper , likely do as outpatient for follow up. Clinical Quality Measures DVT/VTE Risk/Contraindication: Risk Factor Score Per Nursin RFS Level Per Nursing on Admit: 4+=Very High JAVIER MARTINEZ DO Jul 14, 2018 21:48
[2018-07-14] MEDS: MENTHOL/ZINC OXIDE (CALMOSEPTINE) 113 GM TUBE TOP SCH (21:58)
[2018-07-14] MEDS: BENZONATATE 100 MG (TESSALON) CAPSULE PO PRN (22:03)
[2018-07-15] VITALS (7 sets, daily range): BP systolic 102–147; BP diastolic 57–81
[2018-07-15] MEDS: NYSTATIN ORAL SUSP 5 ML UDC PO SCH ×4 (00:24→18:31)
[2018-07-15] MEDS: RT-ALBUTEROL SULF 2.5 MG/3 ML PRE-MIX VIAL INH PRN ×3 (00:44→10:17)
[2018-07-15 05:51] LABS: BASOPHILS % (AUTO) 0 % (0-10); EOSINOPHILS % (AUTO) 0 % (0-10); HEMATOCRIT 31 % (40-54); HEMOGLOBIN 10.1 G/DL (13.3-17.7); LYMPHOCYTES % (AUTO) 12 % (12-44); MEAN CORPUSCULAR HEMOGLOBIN 31 PG (25-34); MEAN CORPUSCULAR HGB CONC 32 G/DL (32-36); MEAN CORPUSCULAR VOLUME 95 FL (80-99); MEAN PLATELET VOLUME 9.3 FL (7.4-10.4); MONOCYTES # (AUTO) 0.4 X 10^3 (0.0-1.0); MONOCYTES % (AUTO) 5 % (0-12); NEUTROPHILS # (AUTO) 6.6 X 10^3 (1.8-7.8); NEUTROPHILS % (AUTO) 83 % (42-75); PLATELET COUNT 430 10^3/uL (130-400)
[2018-07-15 06:08] LABS: ALANINE AMINOTRANSFERASE 20 U/L (0-55); ALKALINE PHOSPHATASE 102 U/L (40-136); BILIRUBIN,TOTAL 0.4 MG/DL (0.1-1.0); BUN/CREATININE RATIO 8; CALCIUM 8.5 MG/DL (8.5-10.1); CARBON DIOXIDE 23 MMOL/L (21-32); CHLORIDE 104 MMOL/L (98-107); CREATININE SERUM 1.06 MG/DL (0.60-1.30); GFR ESTIMATED > 60; GLUCOSE 263 MG/DL (70-105); POTASSIUM 4.2 MMOL/L (3.6-5.0); SODIUM 136 MMOL/L (135-145); TOTAL PROTEIN 5.1 GM/DL (6.4-8.2)
[2018-07-15] MEDS: inSUlin ASPART (NovoLOG) 1 UNIT/0.01 ML (CHARGE PER UNIT) SC SCH ×4 (06:22→21:10)
[2018-07-15] MEDS: SUCRALFATE 1 GM (CARAFATE) TAB PO SCH ×4 (06:22→19:53)
[2018-07-15] MEDS: CATHETER FLUSH 10 ML SYR IV SCH ×2 (06:22→14:47)
--- NOTE | 2018-07-15 08:17 | Physical Therapy Daily Note ---
PT Daily Note-Current Subjective Patient declined OOB activity and agrees to exercises only. Education with patient on importance of OOB activity to improve current LOF, however, patient continued to decline this request. Mental Status Patient Orientation: Normal For Age Attachments: Oxygen, [place] Catheter Transfers Functional [place] Measure 0=Not Assessed/NA 4=Minimal Assistance 1=Total Assistance 5=Supervision or Setup 2=Maximal Assistance 6=Modified [place] 3=Moderate Assistance 7=Complete IndependenceIRFPAI Quality Coding Scale 6 Independent with activity with or without an assistive device 5 Patient requires set up or clean up by helper. Patient completes activity by themselves 4 Supervision or touching assist (CGA). [place] provide cues , steadying assist 3 The helper provides less than half the effort to complete the activity 2 The helper provides more than half the effort to complete the activity 1 Dependent. The helper does all the effort to complete an activity 7 Patient refused to complete or attempt activity 9 The patient did not perform the activity before the current illness or injury 88 Not attempted due to Medical conditions or safety concerns Exercises Supine Ex: Ankle pumps, Quad Set, Heel Slides, Straight leg raise, Hip abd/add Supine Reps: 20 (AAROM with SLR and abd/add bilaterally) Assessment Patient fatigues with minimal activity. Patient remains in bed with needs met. PT Short Term Goals Short Term Goals Time Frame: Jul 15, 2018 PT Toe Former [place] Goals Toe Former [place] Goals PT Custodial Goals Time Frame: Jul 14, 2018 Transfers (B,C,W/C) (FIM): 6 Gait (FIM): 6 Gait distance (FIM): 3=150 ft Gait Level of Assist: 6 Gait Assistive Device: FWW PT Plan Treatment/Plan Treatment Plan: Continue Plan of Care Treatment Plan: Bed Mobility, Education, Functional Activity Michel, Functional Strength, Gait, Safety, Therapeutic Exercise, Transfers Treatment Duration: Jul 24, 2018 Frequency: 6 times per week Estimated Hrs Per Day: .5 hour per day Patient and/or Family Agrees t: Yes Time/GCodes Time In: 758 Time Out: 806 Total Billed Treatment Time: 8 Total Billed Treatment 1 visit EX 8 min YONG TODD PT Jul 15, 2018 08:17
[2018-07-15] MEDS: ALPRAZolam 0.5 MG (XANAX) TAB PO SCH ×2 (09:25→19:53)
[2018-07-15] MEDS: PANTOPRAZOLE 40 MG (PROTONIX) TAB PO SCH ×2 (09:25→19:53)
[2018-07-15] MEDS: PARoxetine 20 MG (PAXIL) TAB PO SCH ×2 (09:25→19:53)
[2018-07-15] MEDS: NICOTINE 21 MG (NICODERM) PATCH TD SCH (09:26)
[2018-07-15] MEDS: MENTHOL/ZINC OXIDE (CALMOSEPTINE) 113 GM TUBE TOP SCH ×2 (09:26→21:12)
[2018-07-15] MEDS: lisINopril 5 MG (PRINIVIL) TABLET PO SCH (09:27)
[2018-07-15] MEDS: PATCH REMOVAL TP SCH (09:27)
[2018-07-15] MEDS: IRON SUCROSE 200 MG/10 ML (VENOFER) VIAL IV SCH (09:37)
--- NOTE | 2018-07-15 10:05 | Progress Note ---
Subjective Date Seen by a Provider: Jul 15, 2018 Time Seen by a Provider: 10:04 Subjective/Events-last exam Patient no new complaints. His hemoglobin is up to 10.1. Patient not want to get out of bed. Patient feeling weak. Refusing to have Santiago removed. Tolerating diet. Denies any nausea vomiting fever sweats chills shortness of breath or chest pain, at this time. Focused Exam Time of Focused Exam: 07:40 Objective Exam Vital Signs Date Time Temp Pulse Resp B/P (MAP) Pulse Ox O2 Delivery O2 Flow Rate FiO2 07/15/18 07:00 79 07/15/18 05:02 96 Nasal Cannula 2.00 07/15/18 04:10 98.4 89 20 124/60 (81) 100 Nasal Cannula 2.00 07/15/18 01:00 87 07/15/18 00:44 96 Nasal Cannula 2.00 07/15/18 00:06 97.6 88 20 122/63 (82) 96 Nasal Cannula 2.00 07/14/18 23:30 94 Nasal Cannula 2.00 07/14/18 21:00 Nasal Cannula 2.00 07/14/18 20:47 98.2 78 20 113/75 (88) 99 Nasal Cannula 2.00 07/14/18 20:38 95 Nasal Cannula 2.00 07/14/18 19:24 98 Nasal Cannula 4.00 07/14/18 19:00 90 07/14/18 16:58 97.8 84 20 96/61 (73) 100 Nasal Cannula 5.00 07/14/18 13:00 72 07/14/18 12:00 97.3 78 20 103/61 (75) 100 Nasal Cannula 2.00 07/14/18 10:20 97 Nasal Cannula 2.00 I & O 07/15/18 07:00 Intake Total 2305 ml Output Total 2625 ml Balance -320 ml Capillary Refill : Less Than 3 SecondsLess Than 3 Seconds General Appearance: No Apparent Distress, WD/WN HEENT: Pharynx Normal; No Scleral Icterus (L), No Scleral Icterus (R) Respiratory: Chest Non Tender, No Accessory Muscle Use, No Respiratory Distress , Decreased Breath Sounds Cardiovascular: Regular Rate, Rhythm, No Gallop, No Murmur Gastrointestinal: non tender, soft, no organomegaly, no pulsatile mass Extremity: Non Tender, Swelling (Bilateral lower extremity improving slowly) Neurologic/Psychiatric: Alert, Oriented x3, No Motor/Sensory Deficits, Normal Mood/Affect, metrology specialist II-XII Norm as Tested Skin: Normal Color, Warm/Dry Results Lab Laboratory Tests 07/14/18 11:10: Glucometer 268H 07/14/18 16:25: Glucometer 244H 07/14/18 21:10: Glucometer 277H 07/15/18 05:31: Glucometer 292H 07/15/18 05:40: White Blood Count 8.0, Red Blood Count 3.30L, Hemoglobin 10.1#L, Hematocrit 31L , Mean Corpuscular Volume 95, Mean Corpuscular Hemoglobin 31, Mean Corpuscular Hemoglobin Concent 32, Red Cell Distribution Width 18.0H, Platelet Count 430H, Mean Platelet Volume 9.3, Neutrophils (%) (Auto) 83H, Lymphocytes (%) (Auto) 12 , Monocytes (%) (Auto) 5, Eosinophils (%) (Auto) 0, Basophils (%) (Auto) 0, Neutrophils # (Auto) 6.6, Lymphocytes # (Auto) 1.0, Monocytes # (Auto) 0.4, Eosinophils # (Auto) 0.0, Basophils # (Auto) 0.0, Sodium Level 136, Potassium Level 4.2, Chloride Level 104, Carbon Dioxide Level 23, Anion Gap 9, Blood Urea Nitrogen 9, Creatinine 1.06, Estimat Glomerular Filtration Rate > 60, BUN/ Creatinine Ratio 8, Glucose Level 263H, Calcium Level 8.5, Corrected Calcium 9.3 , Total Bilirubin 0.4, Aspartate Amino Transf (AST/SGOT) 12, Alanine Aminotransferase (ALT/SGPT) 20, Alkaline Phosphatase 102, Total Protein 5.1L, Albumin 3.0L Microbiology 07/07/18 Blood Culture - Final, Complete No growth 07/07/18 MRSA Screen - Final, Complete MRSA not isolated 07/06/18 Urine Culture - Final, Complete NO GROWTH Assessment/Plan Assessment/Plan Assessment/Plan Anemia with GI bleed most likely upper due to duodenal ulcers and hx dark tarry stools Posttraumatic stress disorder Duodenal ulcers - no signs of active bleed seen during EGD Patient on Protonix, Carafate, tolerating diet. H/H 10.1 today will continue to follow. If continues drops may need repeat endoscopy; possibly lower as well as upper, likely do as outpatient for follow up. Recommend removing catheter which patient is refusing at this time. Clinical Quality Measures DVT/VTE Risk/Contraindication: Risk Factor Score Per Nursin RFS Level Per Nursing on Admit: 4+=Very High JAVIER MARTINEZ DO Jul 15, 2018 10:05
[2018-07-15] MEDS: RT-ADVAIR HFA 115/21 MCG PER PUFF IH SCH ×2 (10:25→18:22)
[2018-07-15] MEDS: UMECLIDINIUM BROMIDE (INCRUSE ELLIPTA) 7'S IH SCH (10:25)
--- NOTE | 2018-07-15 13:29 | Progress Note (SOAP) ---
Subjective Subjective/Events-last exam Patient sitting up in chair this AM. Feeling much better. Will d/c liriano. Encourage OOB and ambulation Review of Systems Date Seen by Provider: Jul 15, 2018 Time Seen by Provider: 12:30 Pulmonary: Cough Cardiovascular: No: Chest Pain, Palpitations Gastrointestinal: No: Nausea, Vomiting, Abdominal Pain Genitourinary: No Hematuria Musculoskeletal: back pain Neurological: Weakness Focused Exam Time of Focused Exam: 07:40 Objective Exam Last Set of Vital Signs Vital Signs Date Time Temp Pulse Resp B/P (MAP) Pulse Ox O2 Delivery O2 Flow Rate FiO2 07/15/18 11:15 97.9 94 20 127/63 (84) 98 Nasal Cannula 2.00 Capillary Refill : Less Than 3 SecondsLess Than 3 Seconds I&O Intake and Output 07/15/18 00:00 Intake Total 2280 ml Output Total 2200 ml Balance 80 ml Intake Oral 2280 ml Output Urine Total 2200 ml # Bowel Movements 1 General: Alert, Oriented X3, Cooperative, No Acute Distress Lungs: Clear to Auscultation, Normal Air Movement, Other (diminished at the bases) Heart: Regular Rate, No Murmurs Abdomen: Normal Bowel Sounds, Soft, No Tenderness, No Masses Extremities: Other (1+ pitting edema bilaterally) Neuro: Sensation Intact, Cranial Nerves 3-12 NL Psych/Mental Status: Mental Status NL, Mood NL Results/Procedures Lab Laboratory Tests 07/14/18 16:25: Glucometer 244H 07/14/18 21:10: Glucometer 277H 07/15/18 05:31: Glucometer 292H 07/15/18 05:40: White Blood Count 8.0, Red Blood Count 3.30L, Hemoglobin 10.1#L, Hematocrit 31L , Mean Corpuscular Volume 95, Mean Corpuscular Hemoglobin 31, Mean Corpuscular Hemoglobin Concent 32, Red Cell Distribution Width 18.0H, Platelet Count 430H, Mean Platelet Volume 9.3, Neutrophils (%) (Auto) 83H, Lymphocytes (%) (Auto) 12 , Monocytes (%) (Auto) 5, Eosinophils (%) (Auto) 0, Basophils (%) (Auto) 0, Neutrophils # (Auto) 6.6, Lymphocytes # (Auto) 1.0, Monocytes # (Auto) 0.4, Eosinophils # (Auto) 0.0, Basophils # (Auto) 0.0, Sodium Level 136, Potassium Level 4.2, Chloride Level 104, Carbon Dioxide Level 23, Anion Gap 9, Blood Urea Nitrogen 9, Creatinine 1.06, Estimat Glomerular Filtration Rate > 60, BUN/ Creatinine Ratio 8, Glucose Level 263H, Calcium Level 8.5, Corrected Calcium 9.3 , Total Bilirubin 0.4, Aspartate Amino Transf (AST/SGOT) 12, Alanine Aminotransferase (ALT/SGPT) 20, Alkaline Phosphatase 102, Total Protein 5.1L, Albumin 3.0L 07/15/18 11:14: Glucometer 348H Microbiology 07/07/18 Blood Culture - Final, Complete No growth 07/07/18 MRSA Screen - Final, Complete MRSA not isolated 07/06/18 Urine Culture - Final, Complete NO GROWTH Radiology Assessment/Plan Assessment/Plan Assessment & Plan 1. GI Bleed Pt required another unit of PRBCs last night; Hgb stable for now. EGD with Patrizia today. Consider colonoscopy outpatient, should EGD come back negative. 2. Right Foot Drop MRI showed only lumbar spondylosis. Not a strong explanation for his foot drop. No inciting event. 3. DM Type 2 Sliding scale Novolog. Observe. 4. Acute Kidney Injury Improved. Unknown hx. 5. Leukocytosis Unknown origin. Observe. (1) GI bleed Status: Acute Assessment & Plan: Pt required another unit of PRBCs last night; Hgb stable for now. EGD with Patrizia today. Consider colonoscopy outpatient, should EGD come back negative. 07/09- EGD yesterday with large ulcers, not actively bleeding. Added sucralfate to pantoprazole but hemoglobin below 6 again this am. 2 units PRBCs, f/u after. 07/10- No vomiting, Hgb stable since transfusion, if continues to be stable would be stable for cath Thursday, Will advance diet today per surgery recommendations 07/11- Hgb stable, Will get retic count today, Start Fe infusions 07/12- Hgb stable today, will discuss case with surgery to see how long they would like to wait for cath, IV iron 07/13: Hgb Stable, continue IV iron 07/14: Hgb down today, discussed with Dr Acharya and will continue to monitor, Continue IV iron 07/15: Hgb up today, continue IV iron replacement Qualifiers: Qualified Codes: K92.2 - Gastrointestinal hemorrhage, unspecified (2) Urinary retention due to benign prostatic hyperplasia Status: Acute Assessment & Plan: Catheter placed 07/07 due to significant retention. 07/08 start Flomax, may need to d/c with liriano depending on course. 07/15: D/c liriano today (3) Acute systolic CHF (congestive heart failure) Status: Acute Assessment & Plan: 07/10: Echo with EF 25%, plan for cath when anemia is stable 07/11: Discussed case with cardiology, waiting to get cath procedure done 07/13: Cath to be done Thursday or Sunday 07/15: Plan for cath tomorrow (4) Debility Assessment & Plan: PT/OT, Will need rehab vs SNF following hospitalization (5) Hyperglycemia Status: Acute Assessment & Plan: sliding scale insulin, diabetic diet when taking PO 07/10: A1c pending (6) Lower extremity edema Status: Acute Assessment & Plan: Venous insufficiency/immobility versus related to his kidney function. Consider echocardiogram pending clinical course. 07/09- complaining of cough as well, will obtain echocardiogram 07/10- Abnormal echo, EF 25%, cardiology following 07/12: Discussed the importance of activity, getting to edge of bed, leg exercises and elevation of feet 07/14: Patient up in chair today (7) Severe anemia Status: Acute Assessment & Plan: Pt required another unit of PRBCs last night. EGD with Patrizia today. Consider colonscopy outpatient, should EGD come back negative. 07/09- hgb below 6 this am, 2 units prbc today, repeat hemoglobin after. (8) Hypokalemia Status: Resolved Assessment & Plan: Replace and recheck. (9) Lactic acidosis Status: Resolved Assessment & Plan: Unclear etiology with no source of infection. Improved with IVF. Denies abdominal pain to suggest ischemia. (10) Diabetes mellitus, type 2 Status: Chronic Assessment & Plan: Diabetic diet when taking oral. Sliding scale insulin. Qualifiers: (11) Right foot drop Status: Acute Assessment & Plan: MRI showed only lumbar spondylosis. No clear explanation for his foot drop. 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 (12) Poor appetite Status: Acute Assessment & Plan: Denies pain, concern for underlying serious condition given his anemia and weakness. Endoscopy recommended in vs outpatient depending on course. 07/08 EGD today 07/09 EGD yesterday with ulcers, treating with pantoprazole and sucralfate, biopsies pending (13) Leg weakness, bilateral Status: Acute Assessment & Plan: PT. (14) BPH (benign prostatic hyperplasia) Status: Chronic Assessment & Plan: Previously on medication, he stopped due to side effects. Qualifiers: (15) PTSD (post-traumatic stress disorder) Status: Chronic Assessment & Plan: Resume home medications. (16) COPD (chronic obstructive pulmonary disease) Status: Chronic Assessment & Plan: Resume home inhalers (17) DVT prophylaxis Status: Acute Assessment & Plan: No pharmacologic ppx with active bleed. SCDs. Clinical Quality Measures DVT/VTE Risk/Contraindication: Risk Factor Score Per Nursin RFS Level Per Nursing on Admit: 4+=Very High GENNA DUMONT MD Jul 15, 2018 13:29
[2018-07-15] MEDS: RT-ALBUTEROL SULF 2.5 MG/3 ML PRE-MIX VIAL INH SCH ×3 (14:30→22:51)
--- NOTE | 2018-07-15 15:59 | Cardiology Progress Note ---
Cardiology SOAP Progress Note Subjective: Shortness of breath is slightly better. Objective: I&O/Vital Signs 07/15/18 07/15/18 07/15/18 07/15/18 04:10 05:02 07:00 08:30 Temp 98.4 97.4 Pulse 89 79 88 Resp 20 20 B/P (MAP) 124/60 (81) 104/57 (73) Pulse Ox 100 96 98 O2 Delivery Nasal Cannula Nasal Cannula Nasal Cannula O2 Flow Rate 2.00 2.00 2.00 07/15/18 07/15/18 07/15/18 07/15/18 09:00 10:17 11:15 14:30 Temp 97.9 Pulse 94 Resp 20 B/P (MAP) 127/63 (84) Pulse Ox 98 98 95 O2 Delivery Nasal Cannula Nasal Cannula Nasal Cannula Nasal Cannula O2 Flow Rate 2.00 2.00 2.00 2.00 07/15/18 00:00 Intake Total 1880 ml Output Total 1325 ml Balance 555 ml Weight (Pounds): 172 Weight (Ounces): 5.0 Weight (Calculated Kilograms): 78.482975 Constitutional: appears stated age, AAO x 3; No apparent distress; well- developed, well-nourished Respiratory: No accessory muscle use, No respiratory distress, No chest tender , No chest expansion is symmetric; chest is bilaterally symmetric; No lungs clear to percussion; lungs clear to auscultation; No crackles, No rhonchi, No rales, No stridor, No wheezing, No pleural rub, No other Cardiovascular: regular rate-rhythm; No irregularly irregular, No extra beats, No parasternal heave is noted, No JVD, No edema, No bradycardia, No tachycardia , No point of maximal impulse, No cardiac thrills are palpable; S1 and S2; No gallop/S3, No gallop/S4, No diastolic murmur, No systolic murmur, No friction rub, No click, No other Gastrointestional: No tender, No soft, No round, No distended, No pulsatile mass, No organomegaly, No guarding, No rebound, No tenderness, No hernia, No mass, No audible bowel sounds, No abnormal bowel sounds, No abdominal bruits, No spleenomegaly, No other Extremities: pedal edema; No clubbing, No cyanosis, No significant edema Neurologic/Psychiatric: no motor/sensory deficits, alert, normal mood/affect, oriented x 3, power is 5/5 both on sides Skin: No normal color, No warm/dry, No cyanosis, No cool, No diaphoresis, No damp, No ecchymosis, No jaundice, No mottled; pallor; No rash, No tattoos/ piercings, No ulcerations, No rash on exposed areas, No ulcerations on exposed areas, No other Results/Procedures: Labs Laboratory Tests 07/14/18 16:25: Glucometer 244H 07/14/18 21:10: Glucometer 277H 07/15/18 05:31: Glucometer 292H 07/15/18 05:40: White Blood Count 8.0, Red Blood Count 3.30L, Hemoglobin 10.1#L, Hematocrit 31L , Mean Corpuscular Volume 95, Mean Corpuscular Hemoglobin 31, Mean Corpuscular Hemoglobin Concent 32, Red Cell Distribution Width 18.0H, Platelet Count 430H, Mean Platelet Volume 9.3, Neutrophils (%) (Auto) 83H, Lymphocytes (%) (Auto) 12 , Monocytes (%) (Auto) 5, Eosinophils (%) (Auto) 0, Basophils (%) (Auto) 0, Neutrophils # (Auto) 6.6, Lymphocytes # (Auto) 1.0, Monocytes # (Auto) 0.4, Eosinophils # (Auto) 0.0, Basophils # (Auto) 0.0, Sodium Level 136, Potassium Level 4.2, Chloride Level 104, Carbon Dioxide Level 23, Anion Gap 9, Blood Urea Nitrogen 9, Creatinine 1.06, Estimat Glomerular Filtration Rate > 60, BUN/ Creatinine Ratio 8, Glucose Level 263H, Calcium Level 8.5, Corrected Calcium 9.3 , Total Bilirubin 0.4, Aspartate Amino Transf (AST/SGOT) 12, Alanine Aminotransferase (ALT/SGPT) 20, Alkaline Phosphatase 102, Total Protein 5.1L, Albumin 3.0L 07/15/18 11:14: Glucometer 348H Microbiology 07/07/18 Blood Culture - Final, Complete No growth 07/07/18 MRSA Screen - Final, Complete MRSA not isolated 07/06/18 Urine Culture - Final, Complete NO GROWTH A/P: Assessment/Dx: Active GI bleeding, Severe Peptic ulcer disease, Severe cardiomyopathy, Smoking, HTN, DM, Hyperlipidemia, Hypokalemia, CKD, Leg discomfort, Aortic insufficiency, ASD, Acute diastolic CHF, Pulmonary HTN, COPD Plan: Active GI bleeding, on PPI and sucrafate. received PRBCs. Hb improved and stable now. Severe Peptic ulcer disease, Severe cardiomyopathy, LVEF on Echo today 25% with anterior/apical hypokinesis. very likely due to CAD. Coronary angiography and intervention is recommended, however contraindicated with active GI bleeding and anemia. Caution with IV fluids. On lisinopril 5mg daily and metoprolol 25mg twice daily. cannot give aspirin or plavix for now. I spoke at length with Dr. Varma. She is going to advance diet and continue to monitor H/H. discussed with Dr. Varma today 2017. Coronary angiography in the morning. Informed consent was taken from the patient and significant other. All risk and complications were explained in detail. Lifevest for primary prevention of sudden cardiac , before discharge. Smoking - smoking cessation was strongly recommended. HTN, lisinopril and BB. DM, continue metformin for now. Hyperlipidemia, will start statin. check lipid profile in am. Hypokalemia, CKD; Diabetic nephropathy likely. Leg discomfort, likely PAD. work up as an outpatient. Aortic insufficiency, follow clinically. 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 Acute diastolic CHF, pseudonormal diastolic dysfunction. caution with IV fluids. Pulmonary HTN, likely secondary to COPD. COPD, defer to primary team. Thank you for your consultation. Please call me if you have any questions. Kusum Chandra MD, FACP, FACC, FSCAI, FHRS, CCDS Interventional Cardiology Cardiac Electrophysiology Vascular Medicine and Endovascular Interventions Focused Exam Time of Focused Exam: 07:40 Jose CHANDRA MD Jul 15, 2018 3:59 pm
[2018-07-15] MEDS: TAMSULOSIN 0.4 MG (FLOMAX) CAP PO SCH (18:30)
[2018-07-15] MEDS: diphenhydrAMINE 25 MG TAB (BENADRYL) PO PRN (18:33)
[2018-07-15] MEDS: ACETAMINOPHEN 500 MG TAB (TYLENOL) PO PRN (21:12)
[2018-07-16] VITALS (23 sets, daily range): BP systolic 108–196; BP diastolic 63–93
[2018-07-16] MEDS: CATHETER FLUSH 10 ML SYR IV SCH (00:01)
[2018-07-16] MEDS: RT-ALBUTEROL SULF 2.5 MG/3 ML PRE-MIX VIAL INH SCH ×6 (02:08→22:29)
[2018-07-16] MEDS: inSUlin ASPART (NovoLOG) 1 UNIT/0.01 ML (CHARGE PER UNIT) SC SCH ×3 (05:42→16:55)
[2018-07-16] MEDS: RT-ADVAIR HFA 115/21 MCG PER PUFF IH SCH ×2 (07:38→22:29)
[2018-07-16] MEDS: UMECLIDINIUM BROMIDE (INCRUSE ELLIPTA) 7'S IH SCH (07:38)
[2018-07-16] MEDS: ALPRAZolam 0.5 MG (XANAX) TAB PO SCH ×2 (08:16→21:30)
[2018-07-16] MEDS: PARoxetine 20 MG (PAXIL) TAB PO SCH ×2 (08:17→21:34)
[2018-07-16] MEDS: PANTOPRAZOLE 40 MG (PROTONIX) TAB PO SCH ×2 (08:17→21:36)
[2018-07-16] MEDS: lisINopril 5 MG (PRINIVIL) TABLET PO SCH (08:17)
[2018-07-16] MEDS: NICOTINE 21 MG (NICODERM) PATCH TD SCH (08:21)
[2018-07-16] MEDS: MENTHOL/ZINC OXIDE (CALMOSEPTINE) 113 GM TUBE TOP SCH ×2 (08:22→21:15)
[2018-07-16] MEDS: PATCH REMOVAL TP SCH (09:00)
--- NOTE | 2018-07-16 10:50 | Progress Note ---
Subjective Date Seen by a Provider: Jul 16, 2018 Time Seen by a Provider: 10:06 Subjective/Events-last exam patient doing okay. no blood in stool. having panic attacks from time to time. denies any abdominal pain. no n/v liriano out and urinating okay he states. Denies n/v fever sweats chills shortness of breath or chest pain. Focused Exam Time of Focused Exam: 07:40 Objective Exam Vital Signs Date Time Temp Pulse Resp B/P (MAP) Pulse Ox O2 Delivery O2 Flow Rate FiO2 07/16/18 08:00 97.7 101 22 174/82 (112) 93 Nasal Cannula 2.00 07/16/18 07:41 96 Nasal Cannula 2.00 07/16/18 07:40 96 Nasal Cannula 2.00 07/16/18 07:38 96 Nasal Cannula 2.00 07/16/18 07:00 89 07/16/18 04:15 98.6 85 20 127/64 (85) 96 Room Air 07/16/18 02:13 94 Nasal Cannula 2.00 07/16/18 01:00 78 07/16/18 00:00 98.0 81 22 108/63 (78) 96 Nasal Cannula 2.00 07/15/18 22:53 95 Nasal Cannula 2.00 07/15/18 21:15 86 20 114/69 (84) 07/15/18 20:00 Nasal Cannula 2.00 07/15/18 20:00 97.2 95 24 147/81 (103) 99 Nasal Cannula 2.00 07/15/18 19:00 91 07/15/18 18:25 98 Nasal Cannula 2.00 07/15/18 15:30 97.4 83 24 102/65 (77) 98 Nasal Cannula 2.00 07/15/18 14:30 95 Nasal Cannula 2.00 07/15/18 13:02 87 07/15/18 11:15 97.9 94 20 127/63 (84) 98 Nasal Cannula 2.00 I & O 07/16/18 07:00 Intake Total 1680 ml Output Total 2025 ml Balance -345 ml Capillary Refill : Less Than 3 SecondsLess Than 3 Seconds General Appearance: No Apparent Distress, WD/WN HEENT: Pharynx Normal; No Scleral Icterus (L), No Scleral Icterus (R) Respiratory: Chest Non Tender, No Accessory Muscle Use, No Respiratory Distress , Decreased Breath Sounds Cardiovascular: Regular Rate, Rhythm, No Gallop, No Murmur Gastrointestinal: non tender, soft, no organomegaly, no pulsatile mass Extremity: Non Tender, Swelling (Bilateral lower extremity minimal) Neurologic/Psychiatric: Alert, Oriented x3, No Motor/Sensory Deficits, Normal Mood/Affect, 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 as Tested Skin: Normal Color, Warm/Dry Results Lab Laboratory Tests 07/15/18 11:14: Glucometer 348H 07/15/18 15:38: Glucometer 245H 07/15/18 21:06: Glucometer 175H 07/16/18 05:22: Glucometer 180H Microbiology 07/07/18 Blood Culture - Final, Complete No growth 07/07/18 MRSA Screen - Final, Complete MRSA not isolated 07/06/18 Urine Culture - Final, Complete NO GROWTH Assessment/Plan Assessment/Plan Assessment/Plan Anemia with GI bleed most likely upper due to duodenal ulcers and hx dark tarry stools Posttraumatic stress disorder Duodenal ulcers - no signs of active bleed seen during EGD Patient on Protonix, Carafate, tolerating diet. H/H 10.1 yesterday will continue to follow. If continues drops may need repeat endoscopy; possibly lower as well as upper, likely do as outpatient for follow up. liriano catheter removed yesterday cath planned today Clinical Quality Measures DVT/VTE Risk/Contraindication: Risk Factor Score Per Nursin RFS Level Per Nursing on Admit: 4+=Very High JAVIER MARTINEZ DO Jul 16, 2018 10:50
[2018-07-16] MEDS: SUCRALFATE 1 GM (CARAFATE) TAB PO SCH ×3 (11:00→21:36)
[2018-07-16] MEDS ORDERED: fentaNYL INJECTION 100 MCG/2 ML AMP ONE (11:20)
[2018-07-16] MEDS ORDERED: NS IV 1000 ML 1,000 ML ONE (11:20)
[2018-07-16] MEDS ORDERED: HEParin (CATH LAB) 2,000 ML IV ONE (11:20)
[2018-07-16] MEDS ORDERED: LIDOCAINE 1% INJ 20 ML 20 ML VIAL ONE (11:20)
[2018-07-16] MEDS ORDERED: MIDAZOLAM 5 MG/5 ML (VERSED) VIAL ONE (11:20)
--- NOTE | 2018-07-16 11:38 | Physical Therapy Progress Note ---
Therapy Progress Note 0823am attempted visit, pt refused stating he was too worn out, tired, not feeling well, and high anxiety. Nsg present and concurred. 1137am attempted visit, pt having procedure. will attempt PT again tomorrow ANNY BEARD COAL CHEMIST Jul 16, 2018 11:38
[2018-07-16] MEDS: NYSTATIN ORAL SUSP 5 ML UDC PO SCH ×2 (12:00)
[2018-07-16] MEDS ORDERED: NITRO DRIP 25000 MCG/D5W 250 ML IV ONE (12:02)
[2018-07-16] MEDS ORDERED: VERAPAMIL 5 MG/2 ML (CALAN) VIAL IV ONE (12:02)
[2018-07-16] MEDS ORDERED: HEParin 1000 UNIT/ML (10ML VIAL) FOR BOLUS ONE (12:02)
[2018-07-16] MEDS ORDERED: ADENOSINE 3 MG/1 ML (ADENOSCAN) 30ML VIAL IV ONE ×2 (12:45→13:12)
[2018-07-16] MEDS ORDERED: TICAGRELOR 90 MG TABLET (BRILINTA) PO ONE (13:23)
--- NOTE | 2018-07-16 14:07 | Cardiology Progress Note ---
Cardiology SOAP Progress Note Subjective: Mild shortness of breath. Objective: I&O/Vital Signs 07/16/18 07/16/18 07/16/18 07/16/18 02:13 04:15 07:00 07:38 Temp 98.6 Pulse 85 89 Resp 20 B/P (MAP) 127/64 (85) Pulse Ox 94 96 96 O2 Delivery Nasal Cannula Room Air Nasal Cannula O2 Flow Rate 2.00 2.00 07/16/18 07/16/18 07/16/18 07/16/18 07:40 07:41 08:00 10:59 Temp 97.7 Pulse 101 Resp 22 B/P (MAP) 174/82 (112) Pulse Ox 96 96 93 95 O2 Delivery Nasal Cannula Nasal Cannula Nasal Cannula Nasal Cannula O2 Flow Rate 2.00 2.00 2.00 2.00 07/16/18 00:00 Intake Total 1680 ml Output Total 1725 ml Balance -45 ml Weight (Pounds): 170 Weight (Ounces): 0.0 Weight (Calculated Kilograms): 77.185740 Constitutional: appears stated age, AAO x 3; No apparent distress; well- developed, well-nourished Respiratory: No accessory muscle use, No respiratory distress, No chest tender , No chest expansion is symmetric; chest is bilaterally symmetric; No lungs clear to percussion; lungs clear to auscultation; No crackles, No rhonchi, No rales, No stridor, No wheezing, No pleural rub, No other Cardiovascular: regular rate-rhythm; No irregularly irregular, No extra beats, No parasternal heave is noted, No JVD, No edema, No bradycardia, No tachycardia , No point of maximal impulse, No cardiac thrills are palpable; S1 and S2; No gallop/S3, No gallop/S4, No diastolic murmur, No systolic murmur, No friction rub, No click, No other Gastrointestional: No tender, No soft, No round, No distended, No pulsatile mass, No organomegaly, No guarding, No rebound, No tenderness, No hernia, No mass, No audible bowel sounds, No abnormal bowel sounds, No abdominal bruits, No spleenomegaly, No other Extremities: pedal edema; No clubbing, No cyanosis, No significant edema Neurologic/Psychiatric: no motor/sensory deficits, alert, normal mood/affect, oriented x 3, power is 5/5 both on sides Skin: No normal color, No warm/dry, No cyanosis, No cool, No diaphoresis, No damp, No ecchymosis, No jaundice, No mottled; pallor; No rash, No tattoos/ piercings, No ulcerations, No rash on exposed areas, No ulcerations on exposed areas, No other Results/Procedures: Labs Laboratory Tests 07/15/18 15:38: Glucometer 245H 07/15/18 21:06: Glucometer 175H 07/16/18 05:22: Glucometer 180H 07/16/18 11:27: Glucometer 240H Microbiology 07/07/18 Blood Culture - Final, Complete No growth 07/07/18 MRSA Screen - Final, Complete MRSA not isolated 07/06/18 Urine Culture - Final, Complete NO GROWTH A/P: Assessment/Dx: Recent GI bleeding, Severe Peptic ulcer disease, Severe cardiomyopathy, Smoking, HTN, DM, Hyperlipidemia, Hypokalemia, CKD, Leg discomfort, Aortic insufficiency, ASD, Acute diastolic CHF, Pulmonary HTN, COPD Plan: Recent GI bleeding, on PPI and sucrafate. received PRBCs. Hb improved and stable now. No further GI bleeding x 72 hrs. Severe Peptic ulcer disease, Severe cardiomyopathy, LVEF on Echo today 25% with anterior/apical hypokinesis. very likely due to CAD. Coronary angiography and intervention is recommended, however contraindicated with active GI bleeding and anemia. Caution with IV fluids. On lisinopril 5mg daily and metoprolol 25mg twice daily. cannot give aspirin or plavix for now. I spoke at length with Dr. Varma. She is going to advance diet and continue to monitor H/H. discussed with Dr. Varma today 2017. Coronary angiography today. Lifevest for primary prevention of sudden cardiac , before discharge. Smoking - smoking cessation was strongly recommended. HTN, lisinopril and BB. DM, continue metformin for now. Hyperlipidemia, statin therapy. Hypokalemia, CKD; Diabetic nephropathy likely. Leg discomfort, likely PAD. work up as an outpatient. Aortic insufficiency, follow clinically. 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 Acute diastolic CHF, pseudonormal diastolic dysfunction. caution with IV fluids. Pulmonary HTN, likely secondary to COPD. COPD, defer to primary team. Thank you for your consultation. Please call me if you have any questions. Kusum Chandra MD, FACP, FACC, FSCAI, FHRS, CCDS Interventional Cardiology Cardiac Electrophysiology Vascular Medicine and Endovascular Interventions Focused Exam Time of Focused Exam: 07:40 Jose CHANDRA MD Jul 16, 2018 14:07
--- NOTE | 2018-07-16 14:08 | Cardiac Procedure Note-CS/ASA ---
Pre-Procedure Note Pre-Op Procedure Note H&P Reviewed The H&P was reviewed, patient examined and no changes noted. Date H&P Reviewed: Jul 16, 2018 Time H&P Reviewed: 11:00 Conscious Sedation Pre-Proced Time 11:00 ASA Score 3 For ASA 3 and 4: Consider anesthesia and medical clearance. Also, for patients with a history of failed moderate sedation consider anesthesia. Airway Lungs Heart ASA score ASA 1: a normal healthy patient ASA 2: a patient with a mild systemic disease (mid diabetes, controlled hypertension, obesity ASA 3: a patient with a severe systemic disease that limits activity (angina , COPD, prior Myocardial infarction) ASA 4: a patient with an incapacitating disease that is a constant threat to life (CHF, renal failure) ASA 5: a moribund patient not expected to survive 24 hrs. (ruptured aneurysm) ASA 6: a declared brain patient whose organs are being harvested. For emergent operations, add the letter E after the classification Mallampati Classification Grade 1 Sedation Plan Analgesia, Amnesia, Plan communicated to team members, Discussed options with patient/fam, Discussed risks with patient/fam The patient is an appropriate candidate to undergo the planned procedure, sedation, and anesthesia. The patient immediately re-assessed prior to indication. Jose GRAY MD Jul 16, 2018 14:08
[2018-07-16] MEDS ORDERED: PATIENT MAY USE OWN MEDS, ALL PO SCH (14:15)
--- NOTE | 2018-07-16 14:30 | Coronary Angiography & PCI ---
Coronary Angiography & PCI DATE OF PROCEDURE: 07/16/18 INDICATION: Acute systolic congestive heart failure, new onset cardiomyopathy. PREOPERATIVE DIAGNOSIS: Acute systolic congestive heart failure, new onset cardiomyopathy. POSTOPERATIVE DIAGNOSIS: Successful PCI to the LAD with 2 drug-eluting stents. HISTORY: This is a 67-year-old gentleman who was admitted for treatment of severe peptic ulcer disease and GI bleeding. He was significantly anemic and required blood transfusion. Endoscopy revealed peptic ulcer disease but no active bleeding. His hemoglobin and hematocrit stabilized. No further GI bleeding for at least 72 hours. The patient was diagnosed with new onset acute systolic congestive heart failure. Echocardiogram showed EF of 25 percent with anterior wall motion abnormalities. Medical clearance for coronary angiography and PCI was taken from the primary team. Therefore, the patient was scheduled for coronary angiography. PROCEDURES PERFORMED: 1.Coronary angiography. 2.Left heart catheterization. 3. Aortic arch angiogram. 4. FFR to the LAD. 5. FFR to OM1 artery. 6. FFR to mid left circumflex artery/OM 2. 7. PCI to the mid LAD. 8. Abdominal aortogram. 9. Bilateral lower extremity runoff. COMPLICATIONS: None. SPECIMENS: None. ESTIMATED BLOOD LOSS: 10 mL ANESTHESIA: Conscious sedation ANTICOAGULATION: IV heparin CONTRAST: 217 mL. FLUOROSCOPY: 18.6 minutes. FLOUROSCOPY DOSE: 1643 mgy. PROCEDURE DETAILS: The patient is a 67 male and was brought to the labor expediter after informed consent was taken. All the risks and complications were explained in detail; this included the risk of bleeding, vascular damage, stroke , NV and even . The patient was draped and prepped in the usual sterile fashion. We attempted to gain access in the right radial artery but were not able to gain access due to significant spasm. Access was gained in the right femoral artery with a 5 Hungarian sheath. Coronary angiography was performed with a JR4 and a JL4 catheter. Left heart catheterization was performed with a pigtail catheter. Arch angiography was performed with a JR4 catheter. Abdominal aortogram and bilateral lower extremity runoff was performed with a pigtail catheter. FINDINGS: 1.Left main: Patent. 2.LAD: Severe long stenosis in the mid/distal LAD. Stenosis severity 90 percent. 3.Left circumflex artery: Moderate ostial OM1 stenosis. Stenosis severity 70 percent. Moderate stenosis in the mid left circumflex artery. Stenosis severity 70 percent. 4.RCA: Chronic total occlusion of the proximal RCA with distal reconstitution and good collaterals from the left circumflex artery. 5.Left heart catheterization: Aortic pressure 125/59 mmHg, LV pressure 121/6 mmHg. LVEDP 28 mmHg. Poor LV function with EF of 25 percent with global hypokinesis. No gradient across the aortic valve. 6. Aortic arch angiogram: No evidence of aneurysm or dissection. Aortic calcification is noted. Patent proximal segments of the great arteries including brachycephalic artery, common carotid artery and left subclavian artery. 7. Abdominal aortogram: Mild diffuse disease in the abdominal aorta with calcification is noted. Patent SMA artery. Patent right and left renal arteries. 8. Lower extremity runoff: Mild to moderate disease in the right common/ external iliac artery. Very likely occlusive disease in the mid right external iliac artery. Filling of the deep femoral artery is noted however there is no filling of the right SFA. There is faint reconstitution of the popliteal artery. This likely suggests a long occlusive segment from the right external iliac artery to the popliteal artery. Lower extremity is supplied by collaterals from the deep femoral artery. There is moderate to severe disease in the left common iliac artery with mild diffuse disease in the left external iliac artery. Severe diffuse disease is noted in the proximal left SFA with total occlusion in the distal SFA. This is a short segment of occlusion with reconstitution in the popliteal artery. RECOMMENDATIONS: 1. FFR to the LAD is recommended. 2. FFR to OM1 is recommended. 3. FFR to left circumflex artery is recommended. 4. PCI to mid LAD is recommended. INTERVENTION DETAILS: We upgraded to a 6 Hungarian sheath. JL4 guide catheter. FFR guidewire and IV heparin as anticoagulation. ACT was done 3 times. The lesion in the mid LAD was crossed with a FFR wire. It in a seen was started at 140 g per KG per minute. Lowest FFR was 0.76 which is significant. The pressure wire was then taken out and advanced into the proximal left circumflex artery and then into the first obtuse marginal artery. The FFR of the first OM 1 artery was 0.87 which is acceptable therefore PCI was deferred. The pressure wire was taken out of the OM 1 artery and the lesion in the mid left circumflex artery was crossed and the tip of the wire was placed in the AV groove artery just before the ostium of OM 2. Lowest FFR was 0.84 which is acceptable therefore PCI was deferred. Adenosine infusion continued throughout FFR measurement across the 3 arteries. We then took the FFR wire back into the guide catheter and perform an angiogram which did not reveal any vascular complications. The lesion in the mid LAD was again crossed with the pressure wire. The tip of the pressure wire was placed in the distal LAD. Baseline FFR was 0.71. We then took a science Patricia 2.5 x 38 mm stent and deployed it at 18 holly in the mid LAD for 31 seconds. We then took another science Patricia 2.5 x 15 mm drug-eluting stent and overlapped with the previous stent and covered the mid LAD lesion as well. The stent was deployed for 62 seconds at 10 holly in the mid/distal LAD. The overlap zone was postdilated with the same stent balloon at 18 seconds at 20 holly. We then took an NC Quantum 3.0 x 15 mm noncompliant balloon and in the distal stent did a gentle post-inflation at 19 holly for 22 seconds. The overlap area between this 2 stents was postdilated at 12 holly for 13 seconds. We then postdilated the proximal stent in its entire length 4 times. The distal/mid zone was postdilated at 12 holly twice at 20 and 13 seconds respectively. The mid and proximal segment of the stent was postdilated at 14 holly twice for 21 seconds. The most proximal segment was treated with the same NC balloon at 18 holly for 11 seconds. The wire was taken out and post-angiogram showed excellent results with no residual stenosis and JUMA-3 flow. Patient tolerated procedure well and did not have any complication. Peripheral angiogram showed significant PAD therefore no closure device was placed. Manual compression will be recommended. CONCLUSIONS: 1. PCI to a long segment in the mid/distal LAD with 2 drug-eluting stents. 2. FFR of OM1 and mid left circumflex artery shows acceptable FFR therefore PCI was deferred. 3. Chronic total occlusion of the RCA with collaterals from the left circumflex artery. 4. Dual antiplatelet therapy, statin, lisinopril, beta [place]. 5. Electrolytes and BUN/creatinine in the morning. 6. LifeVest for primary prevention of sudden cardiac . Kusum Chandra MD, FACP, FACC, [facility] Interventional Cardiology Jose CHANDRA MD Jul 16, 2018 14:30
[2018-07-16] MEDS: diphenhydrAMINE 25 MG TAB (BENADRYL) PO PRN (15:40)
[2018-07-16] MEDS ORDERED: LORazepam INJ 2 MG/ML (ATIVAN) VIAL ONE (15:52)
[2018-07-16] MEDS: NS IV 1000 ML 1,000 ML IV SCH (16:54)
[2018-07-16] MEDS ORDERED: ATROPINE INJECTION 1 MG/10 ML SYR (ABBOTT) ONE (17:55)
--- NOTE | 2018-07-16 18:14 | Progress Note (SOAP) ---
Subjective Subjective/Events-last exam Patient doing well this AM. Ready for his procedure. States that he slept better last night. States that he continues to have PTSD episodes daily. Denies any N/V or blood in stool Review of Systems Date Seen by Provider: Jul 16, 2018 Time Seen by Provider: 11:45 Pulmonary: Dyspnea, Cough Cardiovascular: Chest Pain; No: Palpitations Gastrointestinal: No: Nausea, Vomiting, Abdominal Pain Neurological: No: Weakness, Confusion Focused Exam Time of Focused Exam: 07:40 Objective Exam Last Set of Vital Signs Vital Signs Date Time Temp Pulse Resp B/P (MAP) Pulse Ox O2 Delivery O2 Flow Rate FiO2 07/16/18 17:00 90 15 152/87 (108) 100 Nasal Cannula 5.00 07/16/18 08:00 97.7 Capillary Refill : Less Than 3 SecondsLess Than 3 Seconds I&O Intake and Output 07/16/18 00:00 Intake Total 2105 ml Output Total 3025 ml Balance -920 ml Intake Oral 2105 ml Output Urine Total 3025 ml General: Alert, Oriented X3, Cooperative, No Acute Distress HEENT: Mucous Memb Moist/[place] Lungs: Clear to Auscultation, Normal Air Movement Heart: Regular Rate, No Murmurs Abdomen: Normal Bowel Sounds, Soft, No Tenderness, No Masses Extremities: No Tenderness/Swelling, Other (1+ pitting edema bilaterally) Skin: No Rashes, No Breakdown Neuro: Sensation Intact, Cranial Nerves 3-12 NL Psych/Mental Status: Mental Status NL, Mood NL Results/Procedures Lab Laboratory Tests 07/15/18 21:06: Glucometer 175H 07/16/18 05:22: Glucometer 180H 07/16/18 11:27: Glucometer 240H 07/16/18 15:25: Activated Partial Thromboplast Time 184*H 07/16/18 16:49: Glucometer 238H 07/16/18 17:25: Activated Partial Thromboplast Time 48H Microbiology 07/07/18 Blood Culture - Final, Complete No growth 07/07/18 MRSA Screen - Final, Complete MRSA not isolated 07/06/18 Urine Culture - Final, Complete NO GROWTH Radiology Assessment/Plan Assessment/Plan Assessment & Plan 1. GI Bleed Pt required another unit of PRBCs last night; Hgb stable for now. EGD with Patrizia today. Consider colonoscopy outpatient, should EGD come back negative. 2. Right Foot Drop MRI showed only lumbar spondylosis. Not a strong explanation for his foot drop. No inciting event. 3. DM Type 2 Sliding scale Novolog. Observe. 4. Acute Kidney Injury Improved. Unknown hx. 5. Leukocytosis Unknown origin. Observe. (1) GI bleed Status: Acute Assessment & Plan: Pt required another unit of PRBCs last night; Hgb stable for now. EGD with Patrizia today. Consider colonoscopy outpatient, should EGD come back negative. 07/09- EGD yesterday with large ulcers, not actively bleeding. Added sucralfate to pantoprazole but hemoglobin below 6 again this am. 2 units PRBCs, f/u after. 07/10- No vomiting, Hgb stable since transfusion, if continues to be stable would be stable for cath Thursday, Will advance diet today per surgery recommendations 07/11- Hgb stable, Will get retic count today, Start Fe infusions 07/12- Hgb stable today, will discuss case with surgery to see how long they would like to wait for cath, IV iron 07/13: Hgb Stable, continue IV iron 07/14: Hgb down today, discussed with Dr Acharya and will continue to monitor, Continue IV iron 07/15: Hgb up today, continue IV iron replacement 07/16: Hgb stable, continue IV Iron, cath today Qualifiers: Qualified Codes: K92.2 - Gastrointestinal hemorrhage, unspecified (2) Urinary retention due to benign prostatic hyperplasia Status: Acute Assessment & Plan: Catheter placed 07/07 due to significant retention. 07/08 start Flomax, may need to d/c with liriano depending on course. 07/15: D/c liriano today (3) Acute systolic CHF (congestive heart failure) Status: Acute Assessment & Plan: 07/10: Echo with EF 25%, plan for cath when anemia is stable 07/11: Discussed case with cardiology, waiting to get cath procedure done 07/13: Cath to be done Thursday or Sunday 07/15: Plan for cath tomorrow 07/16: Cath today with stents placed (4) Debility Assessment & Plan: PT/OT, Will need rehab vs SNF following hospitalization (5) Hyperglycemia Status: Acute Assessment & Plan: sliding scale insulin, diabetic diet when taking PO 07/10: A1c pending (6) Lower extremity edema Status: Acute Assessment & Plan: Venous insufficiency/immobility versus related to his kidney function. Consider echocardiogram pending clinical course. 07/09- complaining of cough as well, will obtain echocardiogram 07/10- Abnormal echo, EF 25%, cardiology following 07/12: Discussed the importance of activity, getting to edge of bed, leg exercises and elevation of feet 07/14: Patient up in chair today (7) Severe anemia Status: Acute Assessment & Plan: Pt required another unit of PRBCs last night. EGD with Patrizia today. Consider colonscopy outpatient, should EGD come back negative. 07/09- hgb below 6 this am, 2 units prbc today, repeat hemoglobin after. (8) Hypokalemia Status: Resolved Assessment & Plan: Replace and recheck. (9) Lactic acidosis Status: Resolved Assessment & Plan: Unclear etiology with no source of infection. Improved with IVF. Denies abdominal pain to suggest ischemia. (10) Diabetes mellitus, type 2 Status: Chronic Assessment & Plan: Diabetic diet when taking oral. Sliding scale insulin. Qualifiers: (11) Right foot drop Status: Acute Assessment & Plan: MRI showed only lumbar spondylosis. No clear explanation for his foot drop. 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 (12) Poor appetite Status: Acute Assessment & Plan: Denies pain, concern for underlying serious condition given his anemia and weakness. Endoscopy recommended in vs outpatient depending on course. 07/08 EGD today 07/09 EGD yesterday with ulcers, treating with pantoprazole and sucralfate, biopsies pending (13) Leg weakness, bilateral Status: Acute Assessment & Plan: PT. (14) BPH (benign prostatic hyperplasia) Status: Chronic Assessment & Plan: Previously on medication, he stopped due to side effects. Qualifiers: (15) PTSD (post-traumatic stress disorder) Status: Chronic Assessment & Plan: Resume home medications. (16) COPD (chronic obstructive pulmonary disease) Status: Chronic Assessment & Plan: Resume home inhalers (17) DVT prophylaxis Status: Acute Assessment & Plan: No pharmacologic ppx with active bleed. SCDs. Clinical Quality Measures DVT/VTE Risk/Contraindication: Risk Factor Score Per Nursin RFS Level Per Nursing on Admit: 4+=Very High GENNA DUMONT MD Jul 16, 2018 18:14
[2018-07-16] MEDS ORDERED: LORazepam INJ 2 MG/ML (ATIVAN) VIAL IVP PRN (21:30)
[2018-07-16] MEDS: TAMSULOSIN 0.4 MG (FLOMAX) CAP PO SCH (21:34)
[2018-07-16] MEDS: ATORVASTATIN 80 MG (LIPITOR) TABLET PO SCH (21:36)
[2018-07-16] MEDS: TICAGRELOR 90 MG TABLET (BRILINTA) PO SCH (21:36)
[2018-07-16] MEDS ORDERED: FUROSEMIDE 40 MG/4 ML INJ (LASIX) ONE (22:22)
[2018-07-16] MEDS ORDERED: FUROSEMIDE 40 MG/4 ML INJ (LASIX) IVP ONE (22:30)
[2018-07-17] VITALS (7 sets, daily range): BP systolic 117–135; BP diastolic 58–79
[2018-07-17] MEDS: RT-ALBUTEROL SULF 2.5 MG/3 ML PRE-MIX VIAL INH SCH ×6 (02:32→22:42)
[2018-07-17 05:47] LABS: HEMOGLOBIN 9.1 G/DL (13.3-17.7); MEAN PLATELET VOLUME 9.1 FL (7.4-10.4); RED BLOOD COUNT 2.98 10^6/uL (4.35-5.85); RED CELL DISTRIBUTION WIDTH 17.9 % (10.0-14.5); WHITE BLOOD COUNT 8.7 10^3/uL (4.3-11.0)
[2018-07-17] MEDS: inSUlin ASPART (NovoLOG) 1 UNIT/0.01 ML (CHARGE PER UNIT) SC SCH ×4 (05:51→21:38)
[2018-07-17] MEDS: SUCRALFATE 1 GM (CARAFATE) TAB PO SCH ×4 (06:00→21:38)
[2018-07-17] MEDS: NYSTATIN ORAL SUSP 5 ML UDC PO SCH ×5 (06:00→18:31)
[2018-07-17 06:06] LABS: BUN/CREATININE RATIO 10; CALCIUM 8.3 MG/DL (8.5-10.1); CARBON DIOXIDE 26 MMOL/L (21-32); CHLORIDE 100 MMOL/L (98-107); CREATININE SERUM 0.91 MG/DL (0.60-1.30); GFR ESTIMATED > 60; GLUCOSE 210 MG/DL (70-105); POTASSIUM 4.1 MMOL/L (3.6-5.0); SODIUM 136 MMOL/L (135-145)
[2018-07-17] MEDS: CATHETER FLUSH 10 ML SYR IV SCH ×3 (06:11→21:42)
[2018-07-17] MEDS: RT-ADVAIR HFA 115/21 MCG PER PUFF IH SCH ×2 (06:42→18:51)
[2018-07-17] MEDS: UMECLIDINIUM BROMIDE (INCRUSE ELLIPTA) 7'S IH SCH (06:42)
[2018-07-17] MEDS ORDERED: FUROSEMIDE 40 MG/4 ML INJ (LASIX) IVP NR (08:00)
[2018-07-17] MEDS: ASPIRIN E.C. 81 MG (ECOTRIN) TAB PO SCH (09:40)
[2018-07-17] MEDS: lisINopril 5 MG (PRINIVIL) TABLET PO SCH (09:40)
[2018-07-17] MEDS: PANTOPRAZOLE 40 MG (PROTONIX) TAB PO SCH ×2 (09:40→21:37)
[2018-07-17] MEDS: PARoxetine 20 MG (PAXIL) TAB PO SCH ×2 (09:40→21:37)
[2018-07-17] MEDS: TICAGRELOR 90 MG TABLET (BRILINTA) PO SCH ×2 (09:40→21:38)
[2018-07-17] MEDS: ALPRAZolam 0.5 MG (XANAX) TAB PO SCH ×2 (09:40→21:38)
[2018-07-17] MEDS: NICOTINE 21 MG (NICODERM) PATCH TD SCH (09:41)
[2018-07-17] MEDS: PATCH REMOVAL TP SCH (09:41)
[2018-07-17] MEDS: IRON SUCROSE 200 MG/10 ML (VENOFER) VIAL IV SCH (10:00)
--- NOTE | 2018-07-17 10:05 | Diagnostic Imaging Report ---
EXAM: CHEST 1 VIEW, AP/PA ONLY INDICATION: Shortness of air. COMPARISON: Chest radiograph 07/08/2018. FINDINGS: Cardiomegaly. Increasing interstitial and airspace opacities in both lungs with a perihilar predominance. There are also new small bilateral pleural effusions. No pneumothorax. No acute osseous findings. IMPRESSION: 1. Cardiomegaly with increasing interstitial and airspace opacities in a pattern consistent with pulmonary edema. 2. New small bilateral pleural effusions. Dictated by: Dictated on workstation # [id number]
[2018-07-17] MEDS: MENTHOL/ZINC OXIDE (CALMOSEPTINE) 113 GM TUBE TOP SCH ×2 (10:10→21:42)
--- NOTE | 2018-07-17 10:55 | Physical Therapy Progress Note ---
Therapy Progress Note Pt in bed, on vapotherm. Pt initially agreeable to participate in bed exercises only but unable to remain awake to participate. When PT attempted to wake Pt to continue exercises he stated, "I'm done for the night. It took an hour and half to recover from this the last time". Pt confused this date, unsure of day or time of day. Pt will resume as tolerated on 07/19/18. NATHAN BEARDEN DPJese Jul 17, 2018 10:55
--- NOTE | 2018-07-17 12:07 | Cardiology Progress Note ---
Cardiology SOAP Progress Note Subjective: Shortness of breath with oxygen saturation. No chest pain. Objective: I&O/Vital Signs 07/17/18 07/17/18 07/17/18 07/17/18 00:05 00:25 01:00 01:00 Temp 99.0 Pulse 85 100 81 82 Resp 18 15 18 B/P (MAP) 135/77 (96) 135/79 (97) Pulse Ox 99 97 97 O2 Delivery NIV Bilevel NIV Bilevel O2 Flow Rate 40.00 40.00 40.00 07/17/18 07/17/18 07/17/18 07/17/18 02:32 04:00 06:42 07:00 Temp 99.3 Pulse 85 76 76 Resp 15 16 B/P (MAP) 131/68 (89) Pulse Ox 95 93 91 O2 Delivery Nasal Cannula Vapotherm O2 Flow Rate 35.00 3.00 25.00 FiO2 40 07/17/18 07/17/18 08:52 10:24 Temp 99.1 Pulse 83 Resp 16 B/P (MAP) 124/62 (82) Pulse Ox 94 91 O2 Delivery Vapotherm Vapotherm O2 Flow Rate 30.00 20.00 20.00 FiO2 35 07/16/18 23:59 Intake Total 0 ml Output Total 250 ml Balance -250 ml Weight (Pounds): 169 Weight (Ounces): 0.0 Weight (Calculated Kilograms): [id number] Constitutional: appears stated age, AAO x 3; No apparent distress; well- developed, well-nourished Respiratory: No accessory muscle use, No respiratory distress, No chest tender , No chest expansion is symmetric; chest is bilaterally symmetric; No lungs clear to percussion; crackles; No rhonchi, No rales, No stridor, No wheezing, No pleural rub, No other Cardiovascular: regular rate-rhythm; No irregularly irregular, No extra beats, No parasternal heave is noted, No JVD, No edema, No bradycardia, No tachycardia , No point of maximal impulse, No cardiac thrills are palpable; S1 and S2; No gallop/S3, No gallop/S4, No diastolic murmur, No systolic murmur, No friction rub, No click, No other Gastrointestional: No tender, No soft, No round, No distended, No pulsatile mass, No organomegaly, No guarding, No rebound, No tenderness, No hernia, No mass, No audible bowel sounds, No abnormal bowel sounds, No abdominal bruits, No spleenomegaly, No other Extremities: pedal edema; No clubbing, No cyanosis, No significant edema Neurologic/Psychiatric: no motor/sensory deficits, alert, normal mood/affect, oriented x 3, power is 5/5 both on sides Skin: No normal color, No warm/dry, No cyanosis, No cool, No diaphoresis, No damp, No ecchymosis, No jaundice, No mottled; pallor; No rash, No tattoos/ piercings, No ulcerations, No rash on exposed areas, No ulcerations on exposed areas, No other Results/Procedures: Labs Laboratory Tests 07/16/18 15:25: Activated Partial Thromboplast Time 184*H 07/16/18 16:49: Glucometer 238H 07/16/18 17:25: Activated Partial Thromboplast Time 48H 07/16/18 22:48: Glucometer 251H 07/17/18 05:10: White Blood Count 8.7, Red Blood Count 2.98L, Hemoglobin 9.1L, Hematocrit 29L, Mean Corpuscular Volume 96, Mean Corpuscular Hemoglobin 31, Mean Corpuscular Hemoglobin Concent 32, Red Cell Distribution Width 17.9H, Platelet Count 430H, Mean Platelet Volume 9.1, Sodium Level 136, Potassium Level 4.1, Chloride Level 100, Carbon Dioxide Level 26, Anion Gap 10, Blood Urea Nitrogen 9, Creatinine 0.91, Estimat Glomerular Filtration Rate > 60, BUN/Creatinine Ratio 10, Glucose Level 210H, Calcium Level 8.3L, B-Type Natriuretic Peptide 2642.8H 07/17/18 05:26: Glucometer 219H 07/17/18 11:10: Glucometer 294H Microbiology 07/07/18 Blood Culture - Final, Complete No growth 07/07/18 MRSA Screen - Final, Complete MRSA not isolated 07/06/18 Urine Culture - Final, Complete NO GROWTH A/P: Assessment/Dx: Acute respiratory failure, pulmonary edema, Recent GI bleeding, Severe Peptic ulcer disease, Severe dilated cardiomyopathy, Smoking, HTN, DM, Hyperlipidemia, Hypokalemia, CKD, Leg discomfort, Aortic insufficiency, ASD, Acute diastolic CHF, Pulmonary HTN, COPD Plan: Acute respiratory failure, pulmonary edema, chest x-ray shows pulmonary edema, increased BNP. Continue IV Lasix. However clinical response disproportionate to the amount of urine output. ICU consultation is recommended. I have requested Dr. Mcgee to consult. Recent GI bleeding, on PPI and sucrafate. received PRBCs. Hb improved and stable now. Severe Peptic ulcer disease, Severe dilated cardiomyopathy, LVEF on Echo today 25% with anterior/apical hypokinesis. very likely due to CAD. Coronary angiography and intervention is recommended, however contraindicated with active GI bleeding and anemia. Caution with IV fluids. On lisinopril 5mg daily and metoprolol 25mg twice daily. cannot give aspirin or plavix for now. I spoke at length with Dr. Varma. She is going to advance diet and continue to monitor H/H. discussed with Dr. Varma today 07/13/2018. 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 Bypass grafts from the left circumflex artery. Moderate left circumflex artery stenosis. Severe LAD stenosis treated successfully with drug-eluting stents. LVEDP 28 mmHg. Lifevest for primary prevention of sudden cardiac , dilated cardiomyopathy. Smoking - smoking cessation was strongly recommended. HTN, lisinopril and BB. DM, continue metformin for now. Hyperlipidemia, statin therapy. Hypokalemia, CKD; Diabetic nephropathy likely. Leg discomfort, likely PAD. Bilateral significant PAD. Aortic insufficiency, follow clinically. 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 Acute diastolic CHF, pseudonormal diastolic dysfunction. caution with IV fluids. Pulmonary HTN, likely secondary to COPD. COPD, defer to primary team. Thank you for your consultation. Please call me if you have any questions. Kusum Chandra MD, FACP, FACC, FSCAI, FHRS, CCDS Interventional Cardiology Cardiac Electrophysiology Vascular Medicine and Endovascular Interventions Focused Exam Time of Focused Exam: 07:40 Jose CHANDRA MD Jul 17, 2018 12:07 pm
--- NOTE | 2018-07-17 12:22 | Pulmonary Consultation ---
History of Present Illness History of Present Illness Date of Consultation 07/17/18 12:16 Time Seen by Provider: 13:26 Date of Admission History of Present Illness Pt presented secondary to worsening SOB that started about 2 days ago. . No prior episodes like this in the past. Allergies and Home Medications Allergies Coded Allergies: No Known Drug Allergies (Verified , 07/08/18) Home Medications Albuterol Sulfate 18 Gm Hfa.aer.ad, 2 PUFF INH Q4H PRN for SHORTNESS OF BREATH, (Reported) Alprazolam 0.5 Mg Tablet, 0.5 MG PO BID Prescribed by: GENNA DUMONT on 08/03/18 122 Atorvastatin Calcium 80 Mg Tablet, 80 MG PO HS Prescribed by: GENNA DUMONT on 08/03/18 122 Budesonide/Formoterol Fumarate 10.2 Gm Hfa.aer.ad, 2 PUFF INH BID, (Reported) Diphenhydramine HCl 25 Mg Capsule, 25 MG PO BID PRN for PANIC ATTACKS, (Reported ) Insulin Detemir 100 Unit/1 Ml Insuln.pen, 10 UNITS SC HS Prescribed by: GENNA DUMONT on 08/03/18 122 Lisinopril 5 Mg Tablet, 5 MG PO DAILY Prescribed by: GENNA DUMONT on 08/03/18 122 Metoprolol Succinate 25 Mg Tab.er.24h, 25 MG PO BID Prescribed by: GENNA DUMONT on 08/03/18 122 Nystatin 100,000 Unit/1 Ml Oral.susp, 5 ML PO Q6HR Prescribed by: GENNA DUMONT on 08/03/18 122 Omeprazole 40 Mg Capsule.dr, 40 MG PO DAILY, (Reported) Paroxetine HCl 20 Mg Tablet, 10 MG PO BID, (Reported) TAKES 1/2 (10MG) TABLET Polyethylene Glycol 3350 17 Gm Powd.pack, 34 GM PO BID Prescribed by: GENNA DUMONT on 08/03/18 122 Sennosides/Docusate Sodium 1 Each Tablet, 2 EA PO BID Prescribed by: GENNA DUMONT on 08/03/18 122 Sucralfate 1 Gm Tablet, 1 GM PO ACHS Prescribed by: GENNA DUMONT on 08/03/18 122 Ticagrelor 90 Mg Tablet, 90 MG PO BID Prescribed by: GENNA DUMONT on 08/03/18 1227 Tramadol HCl 50 Mg Tablet, 50 MG PO TID PRN for PAIN-MODERATE Prescribed by: GENNA DUMONT on 08/03/18 1227 Umeclidinium [place] 62.5 Mcg Blst.w.dev, 1 PUFF INH DAILY PRN for PANIC ATTACKS , (Reported) [Finasteride] 5 MG TAB, 5 MG PO DAILY Prescribed by: GENNA DUMONT on 08/03/18 1227 Past Ovoymkh-Hrluth-Ibtdzf Hx Patient Social History Alcohol Use: Occasionally Uses ("2 drinks per year") Alcohol Beverage of Choice: Beer Recreational Drug Use: No Smoking Status: Current Everyday Smoker (down to 1ppd. Hx of 3 ppd.) Type Used: Cigarettes Recent Foreign Travel: No Contact w/Someone Who Travel: No Recent Infectious Disease Expo: No Recent Hopitalizations: No Immunizations Up To Date Tetanus Booster (TDap): Unknown Date of Influenza Vaccine: May 24, 2018 Seasonal Allergies Seasonal Allergies: Yes Past Medical History Surgeries: No Respiratory: Yes Asthma, COPD Currently Using CPAP: No Currently Using BIPAP: No Cardiac: Yes Hypertension Neurological: Yes Sexually Transmitted Disease: No HIV/AIDS: No Genitourinary: Yes Benign Prostatic Hyperpl, Kidney Infection, Prostate Problems Gastrointestinal: Yes Gastrointestinal Bleed, Irritable Bowel Musculoskeletal: Yes Back Injury Endocrine: Yes Diabetes, Insulin dep Are Your Blood Sugars Over 250: Yes HEENT: Yes (Are likely dry eyes) Loss of Vision: Bilateral Hearing Impairment: Denies Cancer: No Psychosocial: Yes PTSD Integumentary: No Blood Disorders: No Adverse Reaction/Blood Tranf: No Family Medical History No Pertinent Family Hx Review of Systems Time Seen by Provider: 07:31 Sepsis Event Evaluation Height, Weight, BMI Height: 5'7.00" Weight: 169lbs. 0.0oz. 76.366546dp; 24.3 BMI Method:Stated Exam Exam Vital Signs Date Time Temp Pulse Resp B/P (MAP) Pulse Ox O2 Delivery O2 Flow Rate FiO2 07/17/18 10:24 91 Vapotherm 20.00 35 07/17/18 08:52 99.1 83 16 124/62 (82) 94 Vapotherm 30.00 20.00 07/17/18 07:00 76 07/17/18 06:42 91 Vapotherm 25.00 40 07/17/18 04:00 99.3 76 16 131/68 (89) 93 Nasal Cannula 3.00 07/17/18 02:32 85 15 95 35.00 07/17/18 01:00 82 18 135/79 (97) 97 NIV Bilevel 40.00 07/17/18 01:00 81 07/17/18 00:25 100 15 97 40.00 07/17/18 00:05 99.0 85 18 135/77 (96) 99 NIV Bilevel 40.00 07/16/18 23:15 98.4 89 22 138/65 (89) 97 NIV Bilevel 40.00 07/16/18 22:45 97.4 89 20 158/76 (103) 98 NIV Bilevel 40.00 07/16/18 22:30 100 16 100 40.00 07/16/18 22:29 Nasal Cannula 2.00 07/16/18 22:15 102 26 178/88 (118) 90 NIV Bilevel 40.00 07/16/18 22:05 96.8 108 30 196/91 (126) 84 Vapotherm 07/16/18 21:45 97.2 111 28 194/92 (126) 88 Nasal Cannula 6.00 07/16/18 21:15 97.6 106 24 193/92 (125) 92 Nasal Cannula 3.00 07/16/18 21:15 Nasal Cannula 2.00 07/16/18 21:00 81 12 130/69 (89) 100 Nasal Cannula 3.00 07/16/18 20:00 86 13 143/82 (102) 100 Nasal Cannula 3.00 07/16/18 19:00 87 14 138/76 (96) 100 Nasal Cannula 3.00 07/16/18 19:00 87 07/16/18 18:00 92 20 155/92 (113) 98 Nasal Cannula 5.00 07/16/18 17:00 90 15 152/87 (108) 100 Nasal Cannula 5.00 07/16/18 16:45 95 16 163/90 (114) 97 Nasal Cannula 5.00 07/16/18 16:30 90 15 157/88 (111) 99 Nasal Cannula 5.00 07/16/18 16:15 91 20 160/86 (110) 95 Nasal Cannula 5.00 07/16/18 16:00 93 24 174/93 (120) 96 Nasal Cannula 5.00 07/16/18 15:50 Nasal Cannula 2.00 07/16/18 15:45 92 32 174/91 (118) 97 Nasal Cannula 5.00 07/16/18 15:30 89 24 160/86 (110) 97 Nasal Cannula 5.00 07/16/18 15:15 87 20 142/75 (97) 98 Nasal Cannula 5.00 07/16/18 15:00 86 25 135/68 (90) 98 Nasal Cannula 5.00 07/16/18 14:45 86 14 141/72 (95) 97 Nasal Cannula 5.00 07/16/18 14:37 88 07/16/18 14:00 Nasal Cannula 2.00 I & O 07/17/18 07:00 Intake Total 100 ml Output Total 1750 ml Balance -1650 ml Height & Weight Height: 5'7.00" Weight: 169lbs. 0.0oz. 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
[2018-07-17 13:02] LABS: ABG BASE EXCESS 8.8 MMOL/L (-2.5-2.5); ABG OXYGEN SATURATION 93 % (94-100); ABG PCO2 40 MMHG (35-45); ABG PH 7.51 (7.37-7.43); ABG PO2 58 MMHG (79-93); ABG TCO2 33.6 MMOL/L (21.0-31.0); ALLENS TEST YES-POS; INSPIRED O2 35; PATIENT TEMP 98.2; VENTILATOR NO
--- NOTE | 2018-07-17 15:32 | Progress Note ---
Subjective Date Seen by a Provider: Jul 17, 2018 Time Seen by a Provider: 09:01 Subjective/Events-last exam Having increasing shortness of breath. Yesterday had PCI to LAD. Patient's no abdominal pain. Denies any blood per rectum. Hemoglobin dropped to 9.1 Denies any nausea vomiting fever sweats chills or chest pain at this time. Focused Exam Time of Focused Exam: 07:40 Objective Exam Vital Signs Date Time Temp Pulse Resp B/P (MAP) Pulse Ox O2 Delivery O2 Flow Rate FiO2 07/17/18 14:42 90 Vapotherm 15.00 35 07/17/18 12:30 90 07/17/18 12:00 96.6 85 18 117/58 (77) 93 Vapotherm 35.00 15.00 07/17/18 10:24 91 Vapotherm 20.00 35 07/17/18 08:52 99.1 83 16 124/62 (82) 94 Vapotherm 30.00 20.00 07/17/18 07:00 76 07/17/18 06:42 91 Vapotherm 25.00 40 07/17/18 04:00 99.3 76 16 131/68 (89) 93 Nasal Cannula 3.00 07/17/18 02:32 85 15 95 35.00 07/17/18 01:00 82 18 135/79 (97) 97 NIV Bilevel 40.00 07/17/18 01:00 81 07/17/18 00:25 100 15 97 40.00 07/17/18 00:05 99.0 85 18 135/77 (96) 99 NIV Bilevel 40.00 07/16/18 23:15 98.4 89 22 138/65 (89) 97 NIV Bilevel 40.00 07/16/18 22:45 97.4 89 20 158/76 (103) 98 NIV Bilevel 40.00 07/16/18 22:30 100 16 100 40.00 07/16/18 22:29 Nasal Cannula 2.00 07/16/18 22:15 102 26 178/88 (118) 90 NIV Bilevel 40.00 07/16/18 22:05 96.8 108 30 196/91 (126) 84 Vapotherm 07/16/18 21:45 97.2 111 28 194/92 (126) 88 Nasal Cannula 6.00 07/16/18 21:15 97.6 106 24 193/92 (125) 92 Nasal Cannula 3.00 07/16/18 21:15 Nasal Cannula 2.00 07/16/18 21:00 81 12 130/69 (89) 100 Nasal Cannula 3.00 07/16/18 20:00 86 13 143/82 (102) 100 Nasal Cannula 3.00 07/16/18 19:00 87 14 138/76 (96) 100 Nasal Cannula 3.00 07/16/18 19:00 87 07/16/18 18:00 92 20 155/92 (113) 98 Nasal Cannula 5.00 07/16/18 17:00 90 15 152/87 (108) 100 Nasal Cannula 5.00 07/16/18 16:45 95 16 163/90 (114) 97 Nasal Cannula 5.00 07/16/18 16:30 90 15 157/88 (111) 99 Nasal Cannula 5.00 07/16/18 16:15 91 20 160/86 (110) 95 Nasal Cannula 5.00 07/16/18 16:00 93 24 174/93 (120) 96 Nasal Cannula 5.00 07/16/18 15:50 Nasal Cannula 2.00 07/16/18 15:45 92 32 174/91 (118) 97 Nasal Cannula 5.00 07/16/18 15:30 89 24 160/86 (110) 97 Nasal Cannula 5.00 I & O 07/17/18 07:00 Intake Total 100 ml Output Total 1750 ml Balance -1650 ml Capillary Refill : Less Than 3 SecondsLess Than 3 Seconds General Appearance: No Apparent Distress, WD/WN HEENT: Pharynx Normal; No Scleral Icterus (L), No Scleral Icterus (R) Respiratory: Chest Non Tender, Decreased Breath Sounds, Other (Slightly increased respiratory effort) Cardiovascular: Regular Rate, Rhythm, No Gallop, No Murmur Gastrointestinal: non tender, soft, no organomegaly, no pulsatile mass Extremity: Non Tender, Swelling (Bilateral lower extremity minimal) Neurologic/Psychiatric: Alert, Oriented x3, No Motor/Sensory Deficits, Normal Mood/Affect, product safety lead II-XII Norm as Tested Skin: Normal Color, Warm/Dry Results Lab Laboratory Tests 07/16/18 16:49: Glucometer 238H 07/16/18 17:25: Activated Partial Thromboplast Time 48H 07/16/18 22:48: Glucometer 251H 07/17/18 05:10: White Blood Count 8.7, Red Blood Count 2.98L, Hemoglobin 9.1L, Hematocrit 29L, Mean Corpuscular Volume 96, Mean Corpuscular Hemoglobin 31, Mean Corpuscular Hemoglobin Concent 32, Red Cell Distribution Width 17.9H, Platelet Count 430H, Mean Platelet Volume 9.1, Sodium Level 136, Potassium Level 4.1, Chloride Level 100, Carbon Dioxide Level 26, Anion Gap 10, Blood Urea Nitrogen 9, Creatinine 0.91, Estimat Glomerular Filtration Rate > 60, BUN/Creatinine Ratio 10, Glucose Level 210H, Calcium Level 8.3L, B-Type Natriuretic Peptide 2642.8H 07/17/18 05:26: Glucometer 219H 07/17/18 11:10: Glucometer 294H 07/17/18 12:55: Blood Gas Puncture Site LT RAD, Blood Gas Patient Temperature 98.2, Arterial Blood pH 7.51H, Arterial Blood Partial Pressure CO2 40, Arterial Blood Partial Pressure O2 58L, Arterial Blood HCO3 32H, Arterial Blood Total CO2 33.6H, Arterial Blood Oxygen Saturation 93L, Arterial Blood Base Excess 8.8H, Wale Test YES-POS, Blood Gas Ventilator Setting NO, Blood Gas Inspired Oxygen 35 Microbiology 07/07/18 Blood Culture - Final, Complete No growth 07/16/18 MRSA Screen - Final, Complete MRSA not isolated 07/06/18 Urine Culture - Final, Complete NO GROWTH Assessment/Plan Assessment/Plan Assessment/Plan Anemia with GI bleed most likely upper due to duodenal ulcers and hx dark tarry stools Posttraumatic stress disorder Duodenal ulcers - no signs of active bleed seen during EGD Status post PCI to LAD Patient on Protonix, Carafate, tolerating diet. H/H drop to 9.1, continue to follow and will transfuse as needed. Chest x-ray demonstrated pulmonary edema Medical management If continues drops may need repeat endoscopy; possibly lower as well as upper, likely do as outpatient for follow up. Clinical Quality Measures DVT/VTE Risk/Contraindication: Risk Factor Score Per Nursin RFS Level Per Nursing on Admit: 4+=Very High JAVIER MARTINEZ DO Jul 17, 2018 15:32
[2018-07-17] MEDS: TAMSULOSIN 0.4 MG (FLOMAX) CAP PO SCH (18:32)
[2018-07-17] MEDS: NS IV 1000 ML 1,000 ML IV SCH (18:32)
--- NOTE | 2018-07-17 20:51 | Progress Note (SOAP) ---
Subjective Subjective/Events-last exam Patient states that he is short of breath this AM. Requiring Vapotherm. Denies any pain this AM. States that he is feeling well. Tolerating PO diet Review of Systems Date Seen by Provider: Jul 17, 2018 Time Seen by Provider: 11:30 Pulmonary: Dyspnea, Cough Cardiovascular: No: Chest Pain, Palpitations Gastrointestinal: No: Nausea, Vomiting, Abdominal Pain Genitourinary: Frequency Neurological: Weakness Focused Exam Time of Focused Exam: 07:40 Objective Exam Last Set of Vital Signs Vital Signs Date Time Temp Pulse Resp B/P (MAP) Pulse Ox O2 Delivery O2 Flow Rate FiO2 07/17/18 19:41 97.0 87 16 128/60 (82) 92 Vapotherm 35.00 15.00 07/17/18 18:52 35 Capillary Refill : Less Than 3 SecondsLess Than 3 Seconds I&O Intake and Output 07/17/18 00:00 Intake Total 0 ml Output Total 550 ml Balance -550 ml Intake Oral 0 ml Output Urine Total 550 ml General: Alert, Oriented X3, Cooperative, No Acute Distress HEENT: Mucous Memb Moist/Tees Toh Lungs: Other (diminished breath sounds, mild increased work of breathing with minimal activity) Heart: Regular Rate, No Murmurs Abdomen: Normal Bowel Sounds, Soft, No Tenderness, No Masses Extremities: Other (2+ pitting edema bilaterally) Neuro: Sensation Intact, Cranial Nerves 3-12 NL, Other (generalize weakness and debility) Results/Procedures Lab Laboratory Tests 07/16/18 22:48: Glucometer 251H 07/17/18 05:10: White Blood Count 8.7, Red Blood Count 2.98L, Hemoglobin 9.1L, Hematocrit 29L, Mean Corpuscular Volume 96, Mean Corpuscular Hemoglobin 31, Mean Corpuscular Hemoglobin Concent 32, Red Cell Distribution Width 17.9H, Platelet Count 430H, Mean Platelet Volume 9.1, Sodium Level 136, Potassium Level 4.1, Chloride Level 100, Carbon Dioxide Level 26, Anion Gap 10, Blood Urea Nitrogen 9, Creatinine 0.91, Estimat Glomerular Filtration Rate > 60, BUN/Creatinine Ratio 10, Glucose Level 210H, Calcium Level 8.3L, B-Type Natriuretic Peptide 2642.8H 07/17/18 05:26: Glucometer 219H 07/17/18 11:10: Glucometer 294H 07/17/18 12:55: Blood Gas Puncture Site LT RAD, Blood Gas Patient Temperature 98.2, Arterial Blood pH 7.51H, Arterial Blood Partial Pressure CO2 40, Arterial Blood Partial Pressure O2 58L, Arterial Blood HCO3 32H, Arterial Blood Total CO2 33.6H, Arterial Blood Oxygen Saturation 93L, Arterial Blood Base Excess 8.8H, Wale Test YES-POS, Blood Gas Ventilator Setting NO, Blood Gas Inspired Oxygen 35 07/17/18 16:46: Glucometer 270H Microbiology 07/07/18 Blood Culture - Final, Complete No growth 07/16/18 MRSA Screen - Final, Complete MRSA not isolated 07/06/18 Urine Culture - Final, Complete NO GROWTH Radiology Assessment/Plan Assessment/Plan Assessment & Plan 1. GI Bleed Pt required another unit of PRBCs last night; Hgb stable for now. EGD with Patrizia today. Consider colonoscopy outpatient, should EGD come back negative. 2. Right Foot Drop MRI showed only lumbar spondylosis. Not a strong explanation for his foot drop. No inciting event. 3. DM Type 2 Sliding scale Novolog. Observe. 4. Acute Kidney Injury Improved. Unknown hx. 5. Leukocytosis Unknown origin. Observe. (1) Acute and chronic respiratory failure with hypoxia Status: Acute Assessment & Plan: 07/17: Arely consulted today, encourage patient to continue with Aerobike at least every hr, encouraged getting to edge of bed, will titrate as tolerated (2) Pulmonary edema cardiac cause Status: Acute Assessment & Plan: 07/17: Dr Chandra added lasix today, will diuresis and monitor renal function (3) GI bleed Status: Acute Assessment & Plan: Pt required another unit of PRBCs last night; Hgb stable for now. EGD with Patrizia today. Consider colonoscopy outpatient, should EGD come back negative. 07/09- EGD yesterday with large ulcers, not actively bleeding. Added sucralfate to pantoprazole but hemoglobin below 6 again this am. 2 units PRBCs, f/u after. 07/10- No vomiting, Hgb stable since transfusion, if continues to be stable would be stable for cath Thursday, Will advance diet today per surgery recommendations 07/11- Hgb stable, Will get retic count today, Start Fe infusions 07/12- Hgb stable today, will discuss case with surgery to see how long they would like to wait for cath, IV iron 07/13: Hgb Stable, continue IV iron 07/14: Hgb down today, discussed with Dr Acharya and will continue to monitor, Continue IV iron 07/15: Hgb up today, continue IV iron replacement 07/16: Hgb stable, continue IV Iron, cath today 07/17: Stable Qualifiers: Qualified Codes: K92.2 - Gastrointestinal hemorrhage, unspecified (4) Urinary retention due to benign prostatic hyperplasia Status: Acute Assessment & Plan: Catheter placed 07/07 due to significant retention. 07/08 start Flomax, may need to d/c with liriano depending on course. 07/15: D/c liriano today (5) Acute systolic CHF (congestive heart failure) Status: Acute Assessment & Plan: 07/10: Echo with EF 25%, plan for cath when anemia is stable 07/11: Discussed case with cardiology, waiting to get cath procedure done 07/13: Cath to be done Thursday or Sunday 07/15: Plan for cath tomorrow 07/16: Cath today with stents placed 07/17: Dr Chandra has ordered lifevest for patient (6) Debility Assessment & Plan: PT/OT, Will need rehab vs SNF following hospitalization (7) Hyperglycemia Status: Acute Assessment & Plan: sliding scale insulin, diabetic diet when taking PO 07/10: A1c pending (8) Lower extremity edema Status: Acute Assessment & Plan: Venous insufficiency/immobility versus related to his kidney function. Consider echocardiogram pending clinical course. 07/09- complaining of cough as well, will obtain echocardiogram 07/10- Abnormal echo, EF 25%, cardiology following 07/12: Discussed the importance of activity, getting to edge of bed, leg exercises and elevation of feet 07/14: Patient up in chair today (9) Severe anemia Status: Acute Assessment & Plan: Pt required another unit of PRBCs last night. EGD with Patrizia today. Consider colonscopy outpatient, should EGD come back negative. 07/09- hgb below 6 this am, 2 units prbc today, repeat hemoglobin after. (10) Hypokalemia Status: Resolved Assessment & Plan: Replace and recheck. (11) Lactic acidosis Status: Resolved Assessment & Plan: Unclear etiology with no source of infection. Improved with IVF. Denies abdominal pain to suggest ischemia. (12) Diabetes mellitus, type 2 Status: Chronic Assessment & Plan: Diabetic diet when taking oral. Sliding scale insulin. Qualifiers: (13) Right foot drop Status: Acute Assessment & Plan: MRI showed only lumbar spondylosis. No clear explanation for his foot drop. 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 (14) Poor appetite Status: Acute Assessment & Plan: Denies pain, concern for underlying serious condition given his anemia and weakness. Endoscopy recommended in vs outpatient depending on course. 07/08 EGD today 07/09 EGD yesterday with ulcers, treating with pantoprazole and sucralfate, biopsies pending (15) Leg weakness, bilateral Status: Acute Assessment & Plan: PT. (16) BPH (benign prostatic hyperplasia) Status: Chronic Assessment & Plan: Previously on medication, he stopped due to side effects. Qualifiers: (17) PTSD (post-traumatic stress disorder) Status: Chronic Assessment & Plan: Resume home medications. (18) COPD (chronic obstructive pulmonary disease) Status: Chronic Assessment & Plan: Resume home inhalers (19) DVT prophylaxis Status: Acute Assessment & Plan: No pharmacologic ppx with active bleed. SCDs. Clinical Quality Measures DVT/VTE Risk/Contraindication: Risk Factor Score Per Nursin RFS Level Per Nursing on Admit: 4+=Very High GENNA DUMONT MD Jul 17, 2018 20:51
[2018-07-17] MEDS: BENZONATATE 100 MG (TESSALON) CAPSULE PO PRN (21:37)
[2018-07-17] MEDS: diphenhydrAMINE 25 MG TAB (BENADRYL) PO PRN (21:38)
[2018-07-17] MEDS: ATORVASTATIN 80 MG (LIPITOR) TABLET PO SCH (21:38)
[2018-07-17] MEDS: ACETAMINOPHEN 500 MG TAB (TYLENOL) PO PRN (21:41)
[2018-07-18] VITALS (7 sets, daily range): BP systolic 111–145; BP diastolic 58–68
[2018-07-18] MEDS: NYSTATIN ORAL SUSP 5 ML UDC PO SCH ×4 (01:23→18:39)
[2018-07-18] MEDS: RT-ALBUTEROL SULF 2.5 MG/3 ML PRE-MIX VIAL INH SCH ×6 (02:31→22:33)
[2018-07-18 05:50] LABS: BASOPHILS % (AUTO) 0 % (0-10); EOSINOPHILS % (AUTO) 0 % (0-10); HEMATOCRIT 28 % (40-54); LYMPHOCYTES # (AUTO) 0.9 X 10^3 (1.0-4.0); LYMPHOCYTES % (AUTO) 12 % (12-44); MEAN CORPUSCULAR HEMOGLOBIN 31 PG (25-34); MEAN CORPUSCULAR HGB CONC 32 G/DL (32-36); MEAN CORPUSCULAR VOLUME 97 FL (80-99); MONOCYTES # (AUTO) 0.6 X 10^3 (0.0-1.0); MONOCYTES % (AUTO) 8 % (0-12); NEUTROPHILS # (AUTO) 5.9 X 10^3 (1.8-7.8); NEUTROPHILS % (AUTO) 79 % (42-75); PLATELET COUNT 388 10^3/uL (130-400); RED CELL DISTRIBUTION WIDTH 18.2 % (10.0-14.5); WHITE BLOOD COUNT 7.5 10^3/uL (4.3-11.0)
[2018-07-18 06:14] LABS: BUN/CREATININE RATIO 10; CARBON DIOXIDE 31 MMOL/L (21-32); CHLORIDE 97 MMOL/L (98-107); CREATININE SERUM 0.89 MG/DL (0.60-1.30); GFR ESTIMATED > 60; GLUCOSE 182 MG/DL (70-105); POTASSIUM 3.4 MMOL/L (3.6-5.0); SODIUM 137 MMOL/L (135-145)
[2018-07-18] MEDS: RT-ADVAIR HFA 115/21 MCG PER PUFF IH SCH ×2 (06:47→18:46)
[2018-07-18] MEDS: UMECLIDINIUM BROMIDE (INCRUSE ELLIPTA) 7'S IH SCH (06:47)
[2018-07-18] MEDS: SUCRALFATE 1 GM (CARAFATE) TAB PO SCH ×4 (08:07→21:14)
[2018-07-18] MEDS: inSUlin ASPART (NovoLOG) 1 UNIT/0.01 ML (CHARGE PER UNIT) SC SCH ×4 (08:07→21:13)
[2018-07-18] MEDS: TICAGRELOR 90 MG TABLET (BRILINTA) PO SCH ×2 (10:02→21:16)
[2018-07-18] MEDS: lisINopril 5 MG (PRINIVIL) TABLET PO SCH (10:02)
[2018-07-18] MEDS: PANTOPRAZOLE 40 MG (PROTONIX) TAB PO SCH ×2 (10:02→21:15)
[2018-07-18] MEDS: ASPIRIN E.C. 81 MG (ECOTRIN) TAB PO SCH (10:05)
[2018-07-18] MEDS: PATCH REMOVAL TP SCH (10:05)
[2018-07-18] MEDS: PARoxetine 20 MG (PAXIL) TAB PO SCH ×2 (10:05→21:15)
[2018-07-18] MEDS: ALPRAZolam 0.5 MG (XANAX) TAB PO SCH ×2 (10:05→21:14)
[2018-07-18] MEDS: NICOTINE 21 MG (NICODERM) PATCH TD SCH (10:05)
[2018-07-18] MEDS: MENTHOL/ZINC OXIDE (CALMOSEPTINE) 113 GM TUBE TOP SCH ×2 (10:05→21:19)
--- NOTE | 2018-07-18 12:17 | Progress Note ---
Subjective Date Seen by a Provider: Jul 18, 2018 Time Seen by a Provider: 12:15 Subjective/Events-last exam Patient breathing easier. No panic attacks overnight. Patient hemoglobin stable today at 9. No other complaints. Denies any nausea vomiting fever sweats chills shortness of breath or chest pain. Tolerating diet. Focused Exam Time of Focused Exam: 07:40 Objective Exam Vital Signs Date Time Temp Pulse Resp B/P (MAP) Pulse Ox O2 Delivery O2 Flow Rate FiO2 07/18/18 10:48 91 Vapotherm 15.00 35 07/18/18 08:00 Vapotherm 15.00 35 07/18/18 08:00 98.4 90 18 136/62 (86) 92 Vapotherm 30.00 15.00 07/18/18 08:00 Vapotherm 15.00 35 07/18/18 07:00 88 07/18/18 06:47 90 Vapotherm 15.00 35 07/18/18 04:00 97.9 82 20 128/60 (82) 94 Vapotherm 30.00 15.00 07/18/18 02:31 95 Vapotherm 15.00 35 07/18/18 01:00 80 07/18/18 00:58 96.8 79 16 111/59 (76) 95 Vapotherm 35.00 15.00 07/17/18 22:42 92 Vapotherm 15.00 35 07/17/18 21:00 92 Vapotherm 2.00 14 07/17/18 19:41 97.0 87 16 128/60 (82) 92 Vapotherm 35.00 15.00 07/17/18 19:00 85 07/17/18 18:52 97 Vapotherm 15.00 35 07/17/18 16:38 97.0 82 16 124/60 (81) 92 Vapotherm 35.00 15.00 07/17/18 14:42 90 Vapotherm 15.00 35 07/17/18 12:30 90 I & O 07/18/18 07:00 Intake Total 1323 ml Output Total 1975 ml Balance -652 ml Capillary Refill : Less Than 3 SecondsLess Than 3 Seconds General Appearance: No Apparent Distress, WD/WN HEENT: Pharynx Normal; No Scleral Icterus (L), No Scleral Icterus (R) Respiratory: Chest Non Tender, Decreased Breath Sounds, Other (Slightly increased respiratory effort) Cardiovascular: Regular Rate, Rhythm, No Gallop, No Murmur Gastrointestinal: non tender, soft, no organomegaly, no pulsatile mass Extremity: Non Tender, Swelling (Bilateral lower extremity minimal) Neurologic/Psychiatric: Alert, Oriented x3, No Motor/Sensory Deficits, Normal 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, 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 Tested Skin: Normal Color, Warm/Dry Results Lab Laboratory Tests 07/17/18 12:55: Blood Gas Puncture Site LT RAD, Blood Gas Patient Temperature 98.2, Arterial Blood pH 7.51H, Arterial Blood Partial Pressure CO2 40, Arterial Blood Partial Pressure O2 58L, Arterial Blood HCO3 32H, Arterial Blood Total CO2 33.6H, Arterial Blood Oxygen Saturation 93L, Arterial Blood Base Excess 8.8H, Wale Test YES-POS, Blood Gas Ventilator Setting NO, Blood Gas Inspired Oxygen 35 07/17/18 16:46: Glucometer 270H 07/17/18 21:00: Glucometer 200H 07/18/18 05:30: White Blood Count 7.5, Red Blood Count 2.90L, Hemoglobin 9.0L, Hematocrit 28L, Mean Corpuscular Volume 97, Mean Corpuscular Hemoglobin 31, Mean Corpuscular Hemoglobin Concent 32, Red Cell Distribution Width 18.2H, Platelet Count 388, Mean Platelet Volume 9.0, Neutrophils (%) (Auto) 79H, Lymphocytes (%) (Auto) 12 , Monocytes (%) (Auto) 8, Eosinophils (%) (Auto) 0, Basophils (%) (Auto) 0, Neutrophils # (Auto) 5.9, Lymphocytes # (Auto) 0.9L, Monocytes # (Auto) 0.6, Eosinophils # (Auto) 0.0, Basophils # (Auto) 0.0, Sodium Level 137, Potassium Level 3.4L, Chloride Level 97L, Carbon Dioxide Level 31, Anion Gap 9, Blood Urea Nitrogen 9, Creatinine 0.89, Estimat Glomerular Filtration Rate > 60, BUN/ Creatinine Ratio 10, Glucose Level 182H, Calcium Level 8.0L 07/18/18 05:33: Glucometer 200H 07/18/18 11:10: Glucometer 204H Microbiology 07/07/18 Blood Culture - Final, Complete No growth 07/16/18 MRSA Screen - Final, Complete MRSA not isolated 07/06/18 Urine Culture - Final, Complete NO GROWTH Assessment/Plan Assessment/Plan Assessment/Plan Anemia with GI bleed most likely upper due to duodenal ulcers and hx dark tarry stools Posttraumatic stress disorder Duodenal ulcers - no signs of active bleed seen during EGD Status post PCI to LAD Patient on Protonix, Carafate, tolerating diet. H/H drop to 9, continue to follow and will transfuse as needed. Chest x-ray demonstrated pulmonary edema yesterday. Breathing easier today Medical management If continues drops may need repeat endoscopy; possibly lower as well as upper, likely do as outpatient for follow up. Clinical Quality Measures DVT/VTE Risk/Contraindication: Risk Factor Score Per Nursin RFS Level Per Nursing on Admit: 4+=Very High JAVIER MARTINEZ DO Jul 18, 2018 12:17
[2018-07-18] MEDS ORDERED: FUROSEMIDE 40 MG/4 ML INJ (LASIX) ONE (12:44)
[2018-07-18] MEDS ORDERED: FUROSEMIDE 40 MG/4 ML INJ (LASIX) IVP NR (12:52)
[2018-07-18] MEDS: NS IV 1000 ML 1,000 ML IV SCH ×2 (12:54→12:55)
--- NOTE | 2018-07-18 13:19 | Cardiology Progress Note ---
Cardiology SOAP Progress Note Subjective: Improved shortness of breath. Objective: I&O/Vital Signs 07/18/18 07/18/18 07/18/18 07/18/18 06:47 07:00 08:00 08:00 Temp 98.4 Pulse 88 90 Resp 18 B/P (MAP) 136/62 (86) Pulse Ox 90 92 O2 Delivery Vapotherm Vapotherm Vapotherm O2 Flow Rate 15.00 15.00 30.00 15.00 FiO2 35 35 07/18/18 07/18/18 07/18/18 07/18/18 10:48 12:00 13:00 14:22 Temp 97.1 Pulse 79 80 Resp 20 B/P (MAP) 119/58 (78) Pulse Ox 91 96 95 O2 Delivery Vapotherm Vapotherm Vapotherm O2 Flow Rate 15.00 30.00 15.00 15.00 FiO2 35 35 07/18/18 16:55 Temp 98.2 Pulse 91 Resp 24 B/P (MAP) 144/67 (92) Pulse Ox 94 O2 Delivery Vapotherm O2 Flow Rate 35.00 15.00 07/18/18 00:00 Intake Total 1023 ml Output Total 1625 ml Balance -602 ml Weight (Pounds): 157 Weight (Ounces): 0.0 Weight (Calculated Kilograms): 71.614016 Constitutional: appears stated age, AAO x 3; No apparent distress; well- developed, well-nourished Respiratory: No accessory muscle use, No respiratory distress, No chest tender , No chest expansion is symmetric; chest is bilaterally symmetric; No lungs clear to percussion; crackles; No rhonchi, No rales, No stridor, No wheezing, No pleural rub, No other Cardiovascular: regular rate-rhythm; No irregularly irregular, No extra beats, No parasternal heave is noted, No JVD, No edema, No bradycardia, No tachycardia , No point of maximal impulse, No cardiac thrills are palpable; S1 and S2; No gallop/S3, No gallop/S4, No diastolic murmur, No systolic murmur, No friction rub, No click, No other Gastrointestional: No tender, No soft, No round, No distended, No pulsatile mass, No organomegaly, No guarding, No rebound, No tenderness, No hernia, No mass, No audible bowel sounds, No abnormal bowel sounds, No abdominal bruits, No spleenomegaly, No other Extremities: pedal edema; No clubbing, No cyanosis, No significant edema Neurologic/Psychiatric: no motor/sensory deficits, alert, normal mood/affect, oriented x 3, power is 5/5 both on sides Skin: No normal color, No warm/dry, No cyanosis, No cool, No diaphoresis, No damp, No ecchymosis, No jaundice, No mottled; pallor; No rash, No tattoos/ piercings, No ulcerations, No rash on exposed areas, No ulcerations on exposed areas, No other Results/Procedures: Labs Laboratory Tests 07/17/18 21:00: Glucometer 200H 07/18/18 05:30: White Blood Count 7.5, Red Blood Count 2.90L, Hemoglobin 9.0L, Hematocrit 28L, Mean Corpuscular Volume 97, Mean Corpuscular Hemoglobin 31, Mean Corpuscular Hemoglobin Concent 32, Red Cell Distribution Width 18.2H, Platelet Count 388, Mean Platelet Volume 9.0, Neutrophils (%) (Auto) 79H, Lymphocytes (%) (Auto) 12 , Monocytes (%) (Auto) 8, Eosinophils (%) (Auto) 0, Basophils (%) (Auto) 0, Neutrophils # (Auto) 5.9, Lymphocytes # (Auto) 0.9L, Monocytes # (Auto) 0.6, Eosinophils # (Auto) 0.0, Basophils # (Auto) 0.0, Sodium Level 137, Potassium Level 3.4L, Chloride Level 97L, Carbon Dioxide Level 31, Anion Gap 9, Blood Urea Nitrogen 9, Creatinine 0.89, Estimat Glomerular Filtration Rate > 60, BUN/ Creatinine Ratio 10, Glucose Level 182H, Calcium Level 8.0L, B-Type Natriuretic Peptide 1877.0H 07/18/18 05:33: Glucometer 200H 07/18/18 11:10: Glucometer 204H 07/18/18 15:52: Glucometer 308H Microbiology 07/07/18 Blood Culture - Final, Complete No growth 07/16/18 MRSA Screen - Final, Complete MRSA not isolated 07/06/18 Urine Culture - Final, Complete NO GROWTH A/P: Assessment/Dx: Acute respiratory failure, pulmonary edema, Recent GI bleeding, Severe Peptic ulcer disease, Severe dilated cardiomyopathy, Smoking, HTN, DM, Hyperlipidemia, Hypokalemia, CKD, Leg discomfort, Aortic insufficiency, ASD, Acute diastolic CHF, Pulmonary HTN, COPD Plan: Acute respiratory failure, pulmonary edema, chest x-ray shows pulmonary edema, increased BNP. Continue IV Lasix. Recent GI bleeding, on PPI and sucrafate. received PRBCs. Hb improved and stable now. Severe Peptic ulcer disease, Severe dilated cardiomyopathy, LVEF on Echo today 25% with anterior/apical hypokinesis. very likely due to CAD. Coronary angiography and intervention is recommended, however contraindicated with active GI bleeding and anemia. Caution with IV fluids. On lisinopril 5mg daily and metoprolol 25mg twice daily. cannot give aspirin or plavix for now. I spoke at length with Dr. Varma. She is going to advance diet and continue to monitor H/H. discussed with Dr. Varma today 07/13/2018. 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 Collaterals from the left circumflex artery. Moderate left circumflex artery stenosis. Severe LAD stenosis treated successfully with drug-eluting stents. LVEDP 28 mmHg. Lifevest for primary prevention of sudden cardiac , dilated cardiomyopathy. Smoking - smoking cessation was strongly recommended. HTN, lisinopril and BB. DM, continue metformin for now. Hyperlipidemia, statin therapy. Hypokalemia, CKD; Diabetic nephropathy likely. Leg discomfort, likely PAD. Bilateral significant PAD. Aortic insufficiency, follow clinically. 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 Acute diastolic CHF, pseudonormal diastolic dysfunction. caution with IV fluids. Pulmonary HTN, likely secondary to COPD. COPD, defer to primary team. Thank you for your consultation. Please call me if you have any questions. Kusum Chandra MD, FACP, FACC, FSCAI, FHRS, CCDS Interventional Cardiology Cardiac Electrophysiology Vascular Medicine and Endovascular Interventions Focused Exam Time of Focused Exam: 07:40 Jose CHANDRA MD Jul 18, 2018 1:19 pm
[2018-07-18] MEDS: CATHETER FLUSH 10 ML SYR IV SCH ×2 (14:27→22:18)
[2018-07-18] MEDS ORDERED: NS IV 1000 ML 1,000 ML IV ONE (14:30)
[2018-07-18] MEDS: TAMSULOSIN 0.4 MG (FLOMAX) CAP PO SCH (18:39)
[2018-07-18] MEDS: ATORVASTATIN 80 MG (LIPITOR) TABLET PO SCH (21:15)
--- NOTE | 2018-07-18 22:14 | Progress Note (SOAP) ---
Subjective Subjective/Events-last exam Patient stable this AM. + shortness of breath. Tolerating PO diet. States that he had a bowel movement last night. Review of Systems Date Seen by Provider: Jul 18, 2018 Time Seen by Provider: 11:00 Pulmonary: Dyspnea, Cough Cardiovascular: No: Chest Pain, Palpitations Gastrointestinal: No: Nausea, Vomiting, Abdominal Pain, Diarrhea, Constipation Neurological: Weakness Focused Exam Time of Focused Exam: 07:40 Objective Exam Last Set of Vital Signs Vital Signs Date Time Temp Pulse Resp B/P (MAP) Pulse Ox O2 Delivery O2 Flow Rate FiO2 07/18/18 19:40 98.4 89 24 145/68 (93) 92 Vapotherm 35.00 15.00 07/18/18 18:48 35 Capillary Refill : Less Than 3 SecondsLess Than 3 Seconds I&O Intake and Output 07/18/18 00:00 Intake Total 1123 ml Output Total 3125 ml Balance -2002 ml Intake Oral 1123 ml Output Urine Total 3125 ml # Voids 7 General: Alert, Oriented X3, Cooperative, No Acute Distress HEENT: Mucous Memb Moist/[place] Lungs: Other (diminished breath sounds, + basilar wheezing, mild increased work of breathing with minimal improvement) Heart: Regular Rate, No Murmurs Abdomen: Normal Bowel Sounds, Soft, No Tenderness Extremities: No Edema, No Tenderness/Swelling Neuro: Normal Speech, Sensation Intact, Cranial Nerves 3-12 NL Psych/Mental Status: Mental Status NL, Mood NL Results/Procedures Lab Laboratory Tests 07/18/18 05:30: White Blood Count 7.5, Red Blood Count 2.90L, Hemoglobin 9.0L, Hematocrit 28L, Mean Corpuscular Volume 97, Mean Corpuscular Hemoglobin 31, Mean Corpuscular Hemoglobin Concent 32, Red Cell Distribution Width 18.2H, Platelet Count 388, Mean Platelet Volume 9.0, Neutrophils (%) (Auto) 79H, Lymphocytes (%) (Auto) 12 , Monocytes (%) (Auto) 8, Eosinophils (%) (Auto) 0, Basophils (%) (Auto) 0, Neutrophils # (Auto) 5.9, Lymphocytes # (Auto) 0.9L, Monocytes # (Auto) 0.6, Eosinophils # (Auto) 0.0, Basophils # (Auto) 0.0, Sodium Level 137, Potassium Level 3.4L, Chloride Level 97L, Carbon Dioxide Level 31, Anion Gap 9, Blood Urea Nitrogen 9, Creatinine 0.89, Estimat Glomerular Filtration Rate > 60, BUN/ Creatinine Ratio 10, Glucose Level 182H, Calcium Level 8.0L, B-Type Natriuretic Peptide 1877.0H 07/18/18 05:33: Glucometer 200H 07/18/18 11:10: Glucometer 204H 07/18/18 15:52: Glucometer 308H 07/18/18 20:55: Glucometer 297H Microbiology 07/07/18 Blood Culture - Final, Complete No growth 07/16/18 MRSA Screen - Final, Complete MRSA not isolated 07/06/18 Urine Culture - Final, Complete NO GROWTH Radiology Assessment/Plan Assessment/Plan Assessment & Plan 1. GI Bleed Pt required another unit of PRBCs last night; Hgb stable for now. EGD with Acharya today. Consider colonoscopy outpatient, should EGD come back negative. 2. Right Foot Drop MRI showed only lumbar spondylosis. Not a strong explanation for his foot drop. No inciting event. 3. DM Type 2 Sliding scale Novolog. Observe. 4. Acute Kidney Injury Improved. Unknown hx. 5. Leukocytosis Unknown origin. Observe. (1) Acute and chronic respiratory failure with hypoxia Status: Acute Assessment & Plan: 07/17: Arely consulted today, encourage patient to continue with Aerobike at least every hr, encouraged getting to edge of bed, will titrate as tolerated 07/18: Continue lasix for pulmonary edema, will titrate as tolerated (2) Pulmonary edema cardiac cause Status: Acute Assessment & Plan: 07/17: Dr Chandra added lasix today, will diuresis and monitor renal function (3) GI bleed Status: Acute Assessment & Plan: Pt required another unit of PRBCs last night; Hgb stable for now. EGD with Acharya today. Consider colonoscopy outpatient, should EGD come back negative. 07/09- EGD yesterday with large ulcers, not actively bleeding. Added sucralfate to pantoprazole but hemoglobin below 6 again this am. 2 units PRBCs, f/u after. 07/10- No vomiting, Hgb stable since transfusion, if continues to be stable would be stable for cath Thursday, Will advance diet today per surgery recommendations 07/11- Hgb stable, Will get retic count today, Start Fe infusions 07/12- Hgb stable today, will discuss case with surgery to see how long they would like to wait for cath, IV iron 07/13: Hgb Stable, continue IV iron 07/14: Hgb down today, discussed with Dr Acharya and will continue to monitor, Continue IV iron 07/15: Hgb up today, continue IV iron replacement 07/16: Hgb stable, continue IV Iron, cath today 07/17: Stable Qualifiers: Qualified Codes: K92.2 - Gastrointestinal hemorrhage, unspecified (4) Urinary retention due to benign prostatic hyperplasia Status: Acute Assessment & Plan: Catheter placed 07/07 due to significant retention. 07/08 start Flomax, may need to d/c with liriano depending on course. 07/15: D/c liriano today (5) Acute systolic CHF (congestive heart failure) Status: Acute Assessment & Plan: 07/10: Echo with EF 25%, plan for cath when anemia is stable 07/11: Discussed case with cardiology, waiting to get cath procedure done 07/13: Cath to be done Thursday or Sunday 07/15: Plan for cath tomorrow 07/16: Cath today with stents placed 07/17: Dr Chandra has ordered lifevest for patient (6) Debility Assessment & Plan: PT/OT, Will need rehab vs SNF following hospitalization 07/18: Will consult Rehab (7) Hyperglycemia Status: Acute Assessment & Plan: sliding scale insulin, diabetic diet when taking PO 07/10: A1c pending (8) Lower extremity edema Status: Acute Assessment & Plan: Venous insufficiency/immobility versus related to his kidney function. Consider echocardiogram pending clinical course. 07/09- complaining of cough as well, will obtain echocardiogram 07/10- Abnormal echo, EF 25%, cardiology following 07/12: Discussed the importance of activity, getting to edge of bed, leg exercises and elevation of feet 07/14: Patient up in chair today (9) Severe anemia Status: Acute Assessment & Plan: Pt required another unit of PRBCs last night. EGD with Patrizia today. Consider colonscopy outpatient, should EGD come back negative. 07/09- hgb below 6 this am, 2 units prbc today, repeat hemoglobin after. (10) Hypokalemia Status: Resolved Assessment & Plan: Replace and recheck. (11) Lactic acidosis Status: Resolved Assessment & Plan: Unclear etiology with no source of infection. Improved with IVF. Denies abdominal pain to suggest ischemia. (12) Diabetes mellitus, type 2 Status: Chronic Assessment & Plan: Diabetic diet when taking oral. Sliding scale insulin. Qualifiers: (13) Right foot drop Status: Acute Assessment & Plan: MRI showed only lumbar spondylosis. No clear explanation for his foot drop. 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 (14) Poor appetite Status: Acute Assessment & Plan: Denies pain, concern for underlying serious condition given his anemia and weakness. Endoscopy recommended in vs outpatient depending on course. 07/08 EGD today 07/09 EGD yesterday with ulcers, treating with pantoprazole and sucralfate, biopsies pending (15) Leg weakness, bilateral Status: Acute Assessment & Plan: PT. (16) BPH (benign prostatic hyperplasia) Status: Chronic Assessment & Plan: Previously on medication, he stopped due to side effects. Qualifiers: (17) PTSD (post-traumatic stress disorder) Status: Chronic Assessment & Plan: Resume home medications. (18) COPD (chronic obstructive pulmonary disease) Status: Chronic Assessment & Plan: Resume home inhalers (19) DVT prophylaxis Status: Acute Assessment & Plan: No pharmacologic ppx with active bleed. SCDs. Clinical Quality Measures DVT/VTE Risk/Contraindication: Risk Factor Score Per Nursin RFS Level Per Nursing on Admit: 4+=Very High GENNA DUMONT MD Jul 18, 2018 22:14
[2018-07-18] MEDS: ACETAMINOPHEN 500 MG TAB (TYLENOL) PO PRN (23:13)
[2018-07-19] VITALS (7 sets, daily range): BP systolic 100–120; BP diastolic 55–58
[2018-07-19] MEDS: diphenhydrAMINE 25 MG TAB (BENADRYL) PO PRN (00:11)
[2018-07-19] MEDS: NYSTATIN ORAL SUSP 5 ML UDC PO SCH ×4 (00:20→18:35)
[2018-07-19] MEDS: NS IV 1000 ML 1,000 ML IV SCH ×2 (02:12→11:14)
[2018-07-19] MEDS: RT-ALBUTEROL SULF 2.5 MG/3 ML PRE-MIX VIAL INH SCH ×6 (02:26→23:22)
[2018-07-19] MEDS: SUCRALFATE 1 GM (CARAFATE) TAB PO SCH ×4 (05:32→22:18)
[2018-07-19] MEDS: inSUlin ASPART (NovoLOG) 1 UNIT/0.01 ML (CHARGE PER UNIT) SC SCH ×4 (05:32→22:17)
[2018-07-19 06:03] LABS: BASOPHILS % (AUTO) 0 % (0-10); EOSINOPHILS # (AUTO) 0.1 10^3/uL (0.0-0.3); EOSINOPHILS % (AUTO) 1 % (0-10); HEMATOCRIT 29 % (40-54); HEMOGLOBIN 9.3 G/DL (13.3-17.7); LYMPHOCYTES # (AUTO) 0.9 X 10^3 (1.0-4.0); LYMPHOCYTES % (AUTO) 13 % (12-44); MEAN CORPUSCULAR HEMOGLOBIN 31 PG (25-34); MEAN CORPUSCULAR HGB CONC 32 G/DL (32-36); MEAN CORPUSCULAR VOLUME 98 FL (80-99); MEAN PLATELET VOLUME 8.9 FL (7.4-10.4); MONOCYTES # (AUTO) 0.4 X 10^3 (0.0-1.0); MONOCYTES % (AUTO) 5 % (0-12); NEUTROPHILS % (AUTO) 81 % (42-75); PLATELET COUNT 405 10^3/uL (130-400); RED BLOOD COUNT 2.98 10^6/uL (4.35-5.85); WHITE BLOOD COUNT 7.4 10^3/uL (4.3-11.0)
[2018-07-19] MEDS: CATHETER FLUSH 10 ML SYR IV SCH ×3 (06:08→22:19)
[2018-07-19 06:33] LABS: ALANINE AMINOTRANSFERASE 13 U/L (0-55); ALBUMIN 2.6 GM/DL (3.2-4.5); ALKALINE PHOSPHATASE 96 U/L (40-136); BILIRUBIN,TOTAL 0.5 MG/DL (0.1-1.0); BUN/CREATININE RATIO 12; CALCIUM 8.1 MG/DL (8.5-10.1); CARBON DIOXIDE 30 MMOL/L (21-32); CHLORIDE 96 MMOL/L (98-107); CREATININE SERUM 1.13 MG/DL (0.60-1.30); GFR ESTIMATED > 60; GLUCOSE 253 MG/DL (70-105); POTASSIUM 3.9 MMOL/L (3.6-5.0); SODIUM 136 MMOL/L (135-145); TOTAL PROTEIN 4.5 GM/DL (6.4-8.2)
[2018-07-19] MEDS: UMECLIDINIUM BROMIDE (INCRUSE ELLIPTA) 7'S IH SCH (07:12)
[2018-07-19] MEDS: RT-ADVAIR HFA 115/21 MCG PER PUFF IH SCH ×2 (07:12→19:37)
[2018-07-19] MEDS: ASPIRIN E.C. 81 MG (ECOTRIN) TAB PO SCH (08:24)
[2018-07-19] MEDS: ALPRAZolam 0.5 MG (XANAX) TAB PO SCH ×2 (08:24→22:19)
[2018-07-19] MEDS: lisINopril 5 MG (PRINIVIL) TABLET PO SCH (08:24)
[2018-07-19] MEDS: PARoxetine 20 MG (PAXIL) TAB PO SCH ×2 (08:24→22:18)
[2018-07-19] MEDS: TICAGRELOR 90 MG TABLET (BRILINTA) PO SCH ×2 (08:24→22:18)
[2018-07-19] MEDS: PANTOPRAZOLE 40 MG (PROTONIX) TAB PO SCH ×2 (08:24→22:17)
[2018-07-19] MEDS: NICOTINE 21 MG (NICODERM) PATCH TD SCH (08:30)
[2018-07-19] MEDS: IRON SUCROSE 200 MG/10 ML (VENOFER) VIAL IV SCH (08:38)
[2018-07-19] MEDS: PATCH REMOVAL TP SCH (08:38)
--- NOTE | 2018-07-19 09:28 | Progress Note-Hospitalist ---
FRANCA LAO 07/19/18 0927: Subjective HPI/CC On Admission Date Seen by Provider: Jul 19, 2018 Time Seen by Provider: 09:30 Subjective/Events-last exam Patient feels better today Breathing better but still on Vapotherm Checked meds and labs No pain is reported + Constipation Review of Systems General: Fatigue Pulmonary: Dyspnea Gastrointestinal: Constipation Focused Exam Time of Focused Exam: 07:40 Objective Exam Vital Signs Vital Signs Date Time Temp Pulse Resp B/P (MAP) Pulse Ox O2 Delivery O2 Flow Rate FiO2 07/20/18 16:00 97.9 85 20 109/57 (74) 100 High Flow N/C 10.00 07/20/18 10:54 35 Capillary Refill : Less Than 3 SecondsLess Than 3 Seconds General Appearance: No Apparent Distress, WD/WN, Chronically ill, Thin Respiratory: Chest Non Tender, No Respiratory Distress, Accessory Muscle Use, Decreased Breath Sounds Cardiovascular: Regular Rate, Rhythm, No Edema, No Gallop, No JVD, No Murmur, Normal Peripheral Pulses Gastrointestinal: Normal Bowel Sounds, No Organomegaly, No Pulsatile Mass, Non Tender, Soft Neurologic/Psychiatric: Alert, Oriented x3, No Motor/Sensory Deficits, Normal Mood/Affect Results/Procedures Lab Laboratory Tests 07/20/18 05:59 Patient resulted labs reviewed. Assessment/Plan Assessment and Plan Assess & Plan/Chief Complaint Assessment: Recent GIB CAD Cardiomyopathy Respiratory distress Plan: Vapotherm BM regimen Prognosis poor Diagnosis/Problems Diagnosis/Problems (1) GI bleed Status: Resolved Qualifiers: GI bleed type/associated pathology: unspecified gastrointestinal hemorrhage type Qualified Codes: K92.2 - Gastrointestinal hemorrhage, unspecified Resolution Date/Time: 07/20/18 @ 19:45 (2) Severe anemia Status: Acute (3) Diabetes mellitus, type 2 Status: Chronic Qualifiers: Diabetes mellitus snf insulin use: with senior marketing specialist use (4) Poor appetite Status: Acute (5) Leg weakness, bilateral Status: Acute (6) GERD (gastroesophageal reflux disease) Status: Chronic (7) COPD (chronic obstructive pulmonary disease) Status: Chronic (8) PTSD (post-traumatic stress disorder) Status: Chronic (9) BPH (benign prostatic hyperplasia) Status: Chronic Qualifiers: Lower urinary tract symptom presence: symptoms present (10) Urinary retention due to benign prostatic hyperplasia Status: Acute (11) Lower extremity edema Status: Acute (12) Renal failure Status: Resolved Qualifiers: Renal failure chronicity: unspecified chronicity Qualified Codes: N19 - Unspecified kidney failure Resolution Date/Time: 07/08/18 @ 12:03 Clinical Quality Measures DVT/VTE Risk/Contraindication: Risk Factor Score Per Nursin RFS Level Per Nursing on Admit: 4+=Very High DERIAN ANDRADE MED STUDENT 07/19/18 0950: Subjective Subjective/Events-last exam Patient was brought to [facility] ER by EMS on 07/07 with a chief complaint of GI bleeding. The EMS reported that they found him at home sitting on the tub with a significant amount of blood in the stool. In the ER he was found to be severely anemic, very weak, and complaining of a new onset foot drop. Patient had started some new medications and attributed these to his constipation. He stated that he has a history of GI bleed with no source ever identified. The patient was admitted for testing and observation. On 07/08 the patient reported feeling better but still very weak. He required 1 unit of PRBC. An EGD showed multiple duodenal ulcers and an MRI showed lumbar spondylosis. On 07/09 his hemoglobin was found to be <6 and he required two units of PRBC. On 07/10 he had and echocardiogram that showed an ejection fraction of 25%. The smash fixer suggested catheterization as soon as the patient was stable. Over the next few days his hemoglobin stabilized and he underwent cardiac catheterization with two drug eluting stents placed in the LAD. The procedure also revealed chronic total occlusion of the RCA with collaterals from the LCA. On 07/17 he became SOB requiring Vapotherm and was also fitted with a lifevest as ordered by his smash fixer. On 07/19 he began physical rehabilitation. 07/19/18 Patient reports no pain this morning He is complaining of depression and anxiety He states that he has not had a BM in 3 days The patients feet have an erythematous rash without swelling He is complaining of significant weakness He is still having thrush symptoms The patient states that he gets dizzy when he sits up Objective Exam General Appearance: No Apparent Distress, WD/WN, Thin Respiratory: Chest Non Tender, Lungs Clear, Normal Breath Sounds, No Accessory Muscle Use, No Respiratory Distress Cardiovascular: Regular Rate, Rhythm, No Edema, No Gallop, No JVD, No Murmur Gastrointestinal: Normal Bowel Sounds, Non Tender, Soft Neurologic/Psychiatric: Alert, Oriented x3, No Motor/Sensory Deficits, Normal Mood/Affect Skin: Normal Color, Warm/Dry, Rash Assessment/Plan Assessment and Plan Assess & Plan/Chief Complaint Assessment: 1) Shortness of breath 2) Generalized weakness 3) GI bleed Plan: 1) Pulmonology consult 2) Encourage ambulation 3) General surgery consult FRANCA LAO DO Jul 19, 2018 09:27 DREIAN ANDRADE MED STUDENT Jul 19, 2018 09:50
--- NOTE | 2018-07-19 09:57 | Physical Therapy Daily Note ---
PT Daily Note-Current Subjective Pt awake in bed visiting with family when PT arrived. Pt agreed to participate in therapy Pain Numeric Pain Scale: 0-No Pain Location: No Pain Reported Mental Status Patient Orientation: Normal For Age Attachments: IV Vapotherm Transfers Functional [place] Measure 0=Not Assessed/NA 4=Minimal Assistance 1=Total Assistance 5=Supervision or Setup 2=Maximal Assistance 6=Modified [place] 3=Moderate Assistance 7=Complete IndependenceIRFPAI Quality Coding Scale 6 Independent with activity with or without an assistive device 5 Patient requires set up or clean up by helper. Patient completes activity by themselves 4 Supervision or touching assist (CGA). [place] provide cues , steadying assist 3 The helper provides less than half the effort to complete the activity 2 The helper provides more than half the effort to complete the activity 1 Dependent. The helper does all the effort to complete an activity 7 Patient refused to complete or attempt activity 9 The patient did not perform the activity before the current illness or injury 88 Not attempted due to Medical conditions or safety concerns Exercises Supine Ex: Ankle pumps, Quad Set, Heel Slides, Straight leg raise Supine Reps: 20 Assessment Pt refused to get up out of bed and stated that he did not want to sit up at bedside either. Pt performed LE exercises while laying in bed and was informed to continue on his own in the afternoon. Patient is self limiting with exercises and will be encouraged to continue daily activity by PT. PT Short Term Goals Short Term Goals Time Frame: Jul 15, 2018 PT [employer] Associate Goals Care Home Goals PT [employer] Associate Goals Time Frame: Jul 14, 2018 Transfers (B,C,W/C) (FIM): 6 Gait (FIM): 6 Gait distance (FIM): 3=150 ft Gait Level of Assist: 6 Gait Assistive Device: FWW PT Plan Problem List Problem List: Activity Tolerance, Functional Strength, Balance, Gait, Transfer , Bed Mobility, ROM Treatment/Plan Treatment Plan: Continue Plan of Care Treatment Plan: Bed Mobility, Education, Functional Activity Michel, Functional Strength, Gait, Safety, Therapeutic Exercise, Transfers Treatment Duration: Jul 24, 2018 Frequency: 6 times per week Estimated Hrs Per Day: .5 hour per day Patient and/or Family Agrees t: Yes Time/GCodes Time In: 909 Time Out: 919 Total Billed Treatment Time: 10 Total Billed Treatment 1 visit EX - 10mins YONG TODD PT Jul 19, 2018 09:57
[2018-07-19] MEDS: POLYETHYLENE GLYCOL 17 GM (MIRALAX) PACK PO SCH ×2 (10:56→22:17)
[2018-07-19] MEDS: SENNA W/DOCUSATE (SENOKOT S) TABLET PO SCH ×2 (10:57→22:17)
[2018-07-19] MEDS ORDERED: BISACODYL 10 MG SUPP (DULCOLAX) PR PRN (11:00)
[2018-07-19] MEDS: MENTHOL/ZINC OXIDE (CALMOSEPTINE) 113 GM TUBE TOP SCH ×2 (11:14→22:19)
--- NOTE | 2018-07-19 17:20 | Cardiology Progress Note ---
Cardiology SOAP Progress Note Subjective: Improved shortness of breath. Improved lower extremity swelling. Wearing the LifeVest. Objective: I&O/Vital Signs 07/19/18 07/19/18 07/19/18 07/19/18 07:00 07:14 08:00 09:00 Temp 98.6 Pulse 87 96 Resp 20 B/P (MAP) 112/55 (74) Pulse Ox 96 93 O2 Delivery Vapotherm Vapotherm Nasal Cannula O2 Flow Rate 15.00 35.00 15.00 15.00 FiO2 35 35 07/19/18 07/19/18 07/19/18 07/19/18 12:00 13:00 15:53 15:55 Temp 97.8 96.5 Pulse 89 82 79 Resp 20 18 B/P (MAP) 120/58 (78) 108/56 (73) Pulse Ox 95 96 99 O2 Delivery Vapotherm Vapotherm Vapotherm O2 Flow Rate 35.00 15.00 35.00 15.00 15.00 FiO2 35 07/19/18 00:00 Intake Total 2697 ml Output Total 3275 ml Balance -578 ml Weight (Pounds): 159 Weight (Ounces): 0.0 Weight (Calculated Kilograms): 72.724984 Constitutional: appears stated age, AAO x 3; No apparent distress; well- developed, well-nourished Respiratory: No accessory muscle use, No respiratory distress, No chest tender , No chest expansion is symmetric; chest is bilaterally symmetric; No lungs clear to percussion; crackles; No rhonchi, No rales, No stridor, No wheezing, No pleural rub, No other Cardiovascular: regular rate-rhythm; No irregularly irregular, No extra beats, No parasternal heave is noted, No JVD, No edema, No bradycardia, No tachycardia , No point of maximal impulse, No cardiac thrills are palpable; S1 and S2; No gallop/S3, No gallop/S4, No diastolic murmur, No systolic murmur, No friction rub, No click, No other Gastrointestional: No tender, No soft, No round, No distended, No pulsatile mass, No organomegaly, No guarding, No rebound, No tenderness, No hernia, No mass, No audible bowel sounds, No abnormal bowel sounds, No abdominal bruits, No spleenomegaly, No other Extremities: pedal edema; No clubbing, No cyanosis, No significant edema Neurologic/Psychiatric: no motor/sensory deficits, alert, normal mood/affect, oriented x 3, power is 5/5 both on sides Skin: No normal color, No warm/dry, No cyanosis, No cool, No diaphoresis, No damp, No ecchymosis, No jaundice, No mottled; pallor; No rash, No tattoos/ piercings, No ulcerations, No rash on exposed areas, No ulcerations on exposed areas, No other Results/Procedures: Labs Laboratory Tests 07/18/18 20:55: Glucometer 297H 07/19/18 05:15: Glucometer 257H 07/19/18 05:40: White Blood Count 7.4, Red Blood Count 2.98L, Hemoglobin 9.3L, Hematocrit 29L, Mean Corpuscular Volume 98, Mean Corpuscular Hemoglobin 31, Mean Corpuscular Hemoglobin Concent 32, Red Cell Distribution Width 18.0H, Platelet Count 405H, Mean Platelet Volume 8.9, Neutrophils (%) (Auto) 81H, Lymphocytes (%) (Auto) 13 , Monocytes (%) (Auto) 5, Eosinophils (%) (Auto) 1, Basophils (%) (Auto) 0, Neutrophils # (Auto) 6.0, Lymphocytes # (Auto) 0.9L, Monocytes # (Auto) 0.4, Eosinophils # (Auto) 0.1, Basophils # (Auto) 0.0, Sodium Level 136, Potassium Level 3.9, Chloride Level 96L, Carbon Dioxide Level 30, Anion Gap 10, Blood Urea Nitrogen 13, Creatinine 1.13, Estimat Glomerular Filtration Rate > 60, BUN/ Creatinine Ratio 12, Glucose Level 253H, Calcium Level 8.1L, Corrected Calcium 9.2, Total Bilirubin 0.5, Aspartate Amino Transf (AST/SGOT) 12, Alanine Aminotransferase (ALT/SGPT) 13, Alkaline Phosphatase 96, B-Type Natriuretic Peptide 1357.7H, Total Protein 4.5L, Albumin 2.6L 07/19/18 11:14: Glucometer 329H 07/19/18 15:50: Glucometer 275H Microbiology 07/07/18 Blood Culture - Final, Complete No growth 07/16/18 MRSA Screen - Final, Complete MRSA not isolated 07/06/18 Urine Culture - Final, Complete NO GROWTH A/P: Assessment/Dx: Acute respiratory failure, pulmonary edema, Recent GI bleeding, Severe Peptic ulcer disease, Severe dilated cardiomyopathy, Smoking, HTN, DM, Hyperlipidemia, Hypokalemia, CKD, Leg discomfort, Aortic insufficiency, ASD, Acute diastolic CHF, Pulmonary HTN, COPD Plan: Acute respiratory failure, pulmonary edema, chest x-ray shows pulmonary edema, increased BNP. Continue IV Lasix. Significant improvement. Recent GI bleeding, on PPI and sucrafate. received PRBCs. Hb improved and stable now. Severe Peptic ulcer disease, Severe dilated cardiomyopathy, LVEF on Echo today 25% with anterior/apical hypokinesis. very likely due to CAD. Coronary angiography and intervention is recommended, however contraindicated with active GI bleeding and anemia. Caution with IV fluids. On lisinopril 5mg daily and metoprolol 25mg twice daily. cannot give aspirin or plavix for now. I spoke at length with Dr. Varma. She is going to advance diet and continue to monitor H/H. discussed with Dr. Varma today 07/13/2018. 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 Collaterals from the left circumflex artery. Moderate left circumflex artery stenosis. Severe LAD stenosis treated successfully with drug-eluting stents. LVEDP 28 mmHg. Lifevest for primary prevention of sudden cardiac , dilated cardiomyopathy. Patient is wearing a LifeVest. Smoking - smoking cessation was strongly recommended. HTN, lisinopril and BB. DM, continue metformin for now. Hyperlipidemia, statin therapy. Hypokalemia, CKD; Diabetic nephropathy likely. Resting Leg discomfort, lifestyle limiting claudication, bilateral significant PAD. Likely peripheral angiography in the near future. Aortic insufficiency, follow clinically. 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 Acute diastolic CHF, pseudonormal diastolic dysfunction. caution with IV fluids. Pulmonary HTN, likely secondary to COPD. COPD, defer to primary team. Thank you for your consultation. Please call me if you have any questions. Kusum Chandra MD, FACP, FACC, FSCAI, FHRS, CCDS Interventional Cardiology Cardiac Electrophysiology Vascular Medicine and Endovascular Interventions Focused Exam Time of Focused Exam: 07:40 Jose CHANDRA MD Jul 19, 2018 5:20 pm
--- NOTE | 2018-07-19 17:26 | Progress Note ---
Subjective Date Seen by a Provider: Jul 19, 2018 Time Seen by a Provider: 17:23 Subjective/Events-last exam patient breathing better today. states his oxygen is up higher, and he is feeling better. less swelling to b/l lower extremities tolerating diet. denies n/v fever sweats chills. Focused Exam Time of Focused Exam: 07:40 Objective Exam Vital Signs Date Time Temp Pulse Resp B/P (MAP) Pulse Ox O2 Delivery O2 Flow Rate FiO2 07/19/18 15:55 96.5 79 18 108/56 (73) 99 Vapotherm 35.00 15.00 07/19/18 15:53 96 Vapotherm 15.00 35 07/19/18 13:00 82 07/19/18 12:00 97.8 89 20 120/58 (78) 95 Vapotherm 35.00 15.00 07/19/18 09:00 Nasal Cannula 15.00 35 07/19/18 08:00 98.6 96 20 112/55 (74) 93 Vapotherm 35.00 15.00 07/19/18 07:14 96 Vapotherm 15.00 35 07/19/18 07:00 87 07/19/18 04:00 98.9 85 16 100/56 (71) 91 Vapotherm 35.00 15.00 07/19/18 02:27 90 Vapotherm 15.00 35 07/19/18 01:00 82 07/19/18 00:00 98.9 91 16 113/55 (74) 90 Vapotherm 35.00 15.00 07/18/18 22:34 95 Vapotherm 15.00 35 07/18/18 21:00 Vapotherm 15.00 35 07/18/18 19:40 98.4 89 24 145/68 (93) 92 Vapotherm 35.00 15.00 07/18/18 19:00 89 07/18/18 18:48 96 Vapotherm 15.00 35 I & O 07/19/18 07:00 Intake Total 3147 ml Output Total 4125 ml Balance -978 ml Capillary Refill : Less Than 3 SecondsLess Than 3 Seconds General Appearance: No Apparent Distress, WD/WN, Thin HEENT: Pharynx Normal; No Scleral Icterus (L), No Scleral Icterus (R) Respiratory: Chest Non Tender, Lungs Clear, Normal Breath Sounds, No Accessory Muscle Use, No Respiratory Distress Cardiovascular: Regular Rate, Rhythm, No Edema, No Gallop, No JVD, No Murmur Gastrointestinal: non tender, soft, no organomegaly, no pulsatile mass Extremity: Non Tender, Swelling (Bilateral lower extremity improving) Neurologic/Psychiatric: Alert, Oriented x3, No Motor/Sensory Deficits, Normal Mood/Affect Skin: Normal Color, Warm/Dry, Rash Results Lab Laboratory Tests 07/18/18 20:55: Glucometer 297H 07/19/18 05:15: Glucometer 257H 07/19/18 05:40: White Blood Count 7.4, Red Blood Count 2.98L, Hemoglobin 9.3L, Hematocrit 29L, Mean Corpuscular Volume 98, Mean Corpuscular Hemoglobin 31, Mean Corpuscular Hemoglobin Concent 32, Red Cell Distribution Width 18.0H, Platelet Count 405H, Mean Platelet Volume 8.9, Neutrophils (%) (Auto) 81H, Lymphocytes (%) (Auto) 13 , Monocytes (%) (Auto) 5, Eosinophils (%) (Auto) 1, Basophils (%) (Auto) 0, Neutrophils # (Auto) 6.0, Lymphocytes # (Auto) 0.9L, Monocytes # (Auto) 0.4, Eosinophils # (Auto) 0.1, Basophils # (Auto) 0.0, Sodium Level 136, Potassium Level 3.9, Chloride Level 96L, Carbon Dioxide Level 30, Anion Gap 10, Blood Urea Nitrogen 13, Creatinine 1.13, Estimat Glomerular Filtration Rate > 60, BUN/ Creatinine Ratio 12, Glucose Level 253H, Calcium Level 8.1L, Corrected Calcium 9.2, Total Bilirubin 0.5, Aspartate Amino Transf (AST/SGOT) 12, Alanine Aminotransferase (ALT/SGPT) 13, Alkaline Phosphatase 96, B-Type Natriuretic Peptide 1357.7H, Total Protein 4.5L, Albumin 2.6L 07/19/18 11:14: Glucometer 329H 07/19/18 15:50: Glucometer 275H Microbiology 07/07/18 Blood Culture - Final, Complete No growth 07/16/18 MRSA Screen - Final, Complete MRSA not isolated 07/06/18 Urine Culture - Final, Complete NO GROWTH Assessment/Plan Assessment/Plan Assessment/Plan Anemia with GI bleed most likely upper due to duodenal ulcers and hx dark tarry stools Posttraumatic stress disorder Duodenal ulcers - no signs of active bleed seen during EGD Status post PCI to LAD Pulmonary edema Patient on Protonix, Carafate, tolerating diet. H/H stable at 9.3, continue to follow and will transfuse as needed pulmonary edema - breathing easier today Medical management If continues drops may need repeat endoscopy; possibly lower as well as upper, likely do as outpatient for follow up. Clinical Quality Measures DVT/VTE Risk/Contraindication: Risk Factor Score Per Nursin RFS Level Per Nursing on Admit: 4+=Very High JAVIER MARTINEZ DO Jul 19, 2018 17:26
[2018-07-19] MEDS: TAMSULOSIN 0.4 MG (FLOMAX) CAP PO SCH (18:34)
[2018-07-19] MEDS: ATORVASTATIN 80 MG (LIPITOR) TABLET PO SCH (22:18)
[2018-07-20] MEDS: NYSTATIN ORAL SUSP 5 ML UDC PO SCH ×5 (00:06→23:23)
[2018-07-20] MEDS: RT-ALBUTEROL SULF 2.5 MG/3 ML PRE-MIX VIAL INH SCH ×6 (02:15→22:15)
[2018-07-20 04:00] VITALS: BP 101/56
[2018-07-20 06:07] LABS: BASOPHILS % (AUTO) 0 % (0-10); EOSINOPHILS # (AUTO) 0.1 10^3/uL (0.0-0.3); EOSINOPHILS % (AUTO) 1 % (0-10); HEMATOCRIT 25 % (40-54); LYMPHOCYTES % (AUTO) 12 % (12-44); MEAN CORPUSCULAR HEMOGLOBIN 31 PG (25-34); MEAN CORPUSCULAR HGB CONC 32 G/DL (32-36); MEAN CORPUSCULAR VOLUME 98 FL (80-99); MEAN PLATELET VOLUME 8.8 FL (7.4-10.4); MONOCYTES # (AUTO) 0.4 X 10^3 (0.0-1.0); MONOCYTES % (AUTO) 5 % (0-12); NEUTROPHILS # (AUTO) 6.5 X 10^3 (1.8-7.8); NEUTROPHILS % (AUTO) 81 % (42-75); PLATELET COUNT 366 10^3/uL (130-400); RED BLOOD COUNT 2.58 10^6/uL (4.35-5.85)
[2018-07-20] MEDS: SUCRALFATE 1 GM (CARAFATE) TAB PO SCH ×4 (06:14→21:19)
[2018-07-20] MEDS: CATHETER FLUSH 10 ML SYR IV SCH ×3 (06:14→21:29)
[2018-07-20] MEDS: inSUlin ASPART (NovoLOG) 1 UNIT/0.01 ML (CHARGE PER UNIT) SC SCH ×4 (06:15→21:19)
[2018-07-20 06:27] LABS: ALANINE AMINOTRANSFERASE 13 U/L (0-55); ALBUMIN 2.7 GM/DL (3.2-4.5); ALKALINE PHOSPHATASE 86 U/L (40-136); BILIRUBIN,TOTAL 0.5 MG/DL (0.1-1.0); BUN/CREATININE RATIO 15; CALCIUM 8.3 MG/DL (8.5-10.1); CARBON DIOXIDE 27 MMOL/L (21-32); CHLORIDE 101 MMOL/L (98-107); CREATININE SERUM 1.01 MG/DL (0.60-1.30); GFR ESTIMATED > 60; GLUCOSE 254 MG/DL (70-105); POTASSIUM 4.1 MMOL/L (3.6-5.0); SODIUM 137 MMOL/L (135-145); TOTAL PROTEIN 4.6 GM/DL (6.4-8.2)
[2018-07-20] MEDS: RT-ADVAIR HFA 115/21 MCG PER PUFF IH SCH ×2 (07:20→19:52)
[2018-07-20] MEDS: UMECLIDINIUM BROMIDE (INCRUSE ELLIPTA) 7'S IH SCH (07:21)
[2018-07-20 08:04] VITALS: BP 113/56
--- NOTE | 2018-07-20 08:50 | Pulmonary Progress Note ---
Subjective Time Seen by a Provider: 13:29 Sepsis Event Evaluation Height, Weight, BMI Height: 5'7.00" Weight: 159lbs. 0.0oz. 72.047705em; 24.3 BMI Method:Stated Focused Exam Time of Focused Exam: 07:40 Exam Exam Vital Signs Date Time Temp Pulse Resp B/P (MAP) Pulse Ox O2 Delivery O2 Flow Rate FiO2 07/20/18 08:04 98.0 74 20 113/56 (75) 97 Vapotherm 35.00 10.00 07/20/18 07:25 Vapotherm 10.00 35 07/20/18 07:19 98 Vapotherm 14.00 35 07/20/18 07:00 82 07/20/18 04:00 97.5 91 16 101/56 (71) 93 Vapotherm 35.00 14.00 07/20/18 02:15 88 Vapotherm 14.00 30 07/20/18 01:00 96 07/19/18 23:45 98.4 83 20 101/57 (72) 93 Vapotherm 30.00 14.00 07/19/18 23:22 93 Vapotherm 14.00 30 07/19/18 21:00 Vapotherm 15.00 30 07/19/18 19:50 96.5 86 18 105/56 (72) 100 Vapotherm 35.00 15.00 07/19/18 19:43 98 Vapotherm 14.00 30 07/19/18 19:37 99 Vapotherm 15.00 35 07/19/18 19:00 90 07/19/18 15:55 96.5 79 18 108/56 (73) 99 Vapotherm 35.00 15.00 07/19/18 15:53 96 Vapotherm 15.00 35 07/19/18 13:00 82 07/19/18 12:00 97.8 89 20 120/58 (78) 95 Vapotherm 35.00 15.00 07/19/18 09:00 Nasal Cannula 15.00 35 I & O 07/20/18 06:59 Intake Total 1610 ml Output Total 2775 ml Balance -1165 ml Height & Weight Height: 5'7.00" Weight: 159lbs. 0.0oz. 72.310625ue; 24.3 BMI Method:Stated General Appearance: No Apparent Distress, WD/WN, Thin HEENT: Pharynx Normal; No Scleral Icterus (L), No Scleral Icterus (R) Respiratory: Chest Non Tender, Lungs Clear, Normal Breath Sounds, No Accessory Muscle Use, No Respiratory Distress Cardiovascular: Regular Rate, Rhythm, No Edema, No Gallop, No JVD, No Murmur Capillary Refill: Less Than 3 Seconds Gastrointestinal: non tender, soft, no organomegaly, no pulsatile mass Extremity: Non Tender, Swelling (Bilateral lower extremity improving) Neurologic/Psychiatric: Alert, Oriented x3, No Motor/Sensory Deficits, Normal Mood/Affect Skin: Normal Color, Warm/Dry, Rash Results Lab Laboratory Tests 07/19/18 05:40 07/20/18 05:59 Assessment/Plan Assessment/Plan Acute on chronic respiratory failure -Pt would not qualify for home vent to mask CO2 was normal on ABG -Wean to regular NC as tolerated from Vapotherm -Repeat CXR Pulmonary edema with severe dilated cardiomyopathy EF 25% -Life vest -Cardiology following -Lasix Hx of COPD -SVNS, advair oxygen CKD Recent GIB with gastric ulcers Tobacco use Aortic insufficiency ASD, Pulmonary HTN COPD MALGORZATA SUMNER DO Jul 20, 2018 08:50
--- NOTE | 2018-07-20 09:23 | Cardiology Progress Note ---
Cardiology SOAP Progress Note Subjective: Improved shortness of breath. Improved oxygenation requirement. Objective: I&O/Vital Signs 07/20/18 07/20/18 07/20/18 07/20/18 02:15 04:00 07:00 07:19 Temp 97.5 Pulse 91 82 Resp 16 B/P (MAP) 101/56 (71) Pulse Ox 88 93 98 O2 Delivery Vapotherm Vapotherm Vapotherm O2 Flow Rate 14.00 35.00 14.00 14.00 FiO2 30 35 07/20/18 07/20/18 07/20/18 07/20/18 07:25 08:04 10:54 12:00 Temp 98.0 97.1 Pulse 74 88 Resp 20 20 B/P (MAP) 113/56 (75) 113/66 (82) Pulse Ox 97 93 97 O2 Delivery Vapotherm Vapotherm Vapotherm Vapotherm O2 Flow Rate 10.00 35.00 10.00 35.00 10.00 10.00 FiO2 35 35 07/20/18 00:00 Intake Total 1260 ml Output Total 1900 ml Balance -640 ml Weight (Pounds): 159 Weight (Ounces): 0.0 Weight (Calculated Kilograms): 72.091818 Constitutional: appears stated age, AAO x 3; No apparent distress; well- developed, well-nourished Respiratory: No accessory muscle use, No respiratory distress, No chest tender , No chest expansion is symmetric; chest is bilaterally symmetric; No lungs clear to percussion; crackles; No rhonchi, No rales, No stridor, No wheezing, No pleural rub, No other Cardiovascular: regular rate-rhythm; No irregularly irregular, No extra beats, No parasternal heave is noted, No JVD, No edema, No bradycardia, No tachycardia , No point of maximal impulse, No cardiac thrills are palpable; S1 and S2; No gallop/S3, No gallop/S4, No diastolic murmur, No systolic murmur, No friction rub, No click, No other Gastrointestional: No tender, No soft, No round, No distended, No pulsatile mass, No organomegaly, No guarding, No rebound, No tenderness, No hernia, No mass, No audible bowel sounds, No abnormal bowel sounds, No abdominal bruits, No spleenomegaly, No other Extremities: pedal edema; No clubbing, No cyanosis, No significant edema Neurologic/Psychiatric: no motor/sensory deficits, alert, normal mood/affect, oriented x 3, power is 5/5 both on sides Skin: No normal color, No warm/dry, No cyanosis, No cool, No diaphoresis, No damp, No ecchymosis, No jaundice, No mottled; pallor; No rash, No tattoos/ piercings, No ulcerations, No rash on exposed areas, No ulcerations on exposed areas, No other Results/Procedures: Labs Laboratory Tests 07/19/18 15:50: Glucometer 275H 07/19/18 22:08: Glucometer 284H 07/20/18 04:55: Glucometer 281H 07/20/18 05:59: White Blood Count 8.0, Red Blood Count 2.58L, Hemoglobin 8.0L, Hematocrit 25L, Mean Corpuscular Volume 98, Mean Corpuscular Hemoglobin 31, Mean Corpuscular Hemoglobin Concent 32, Red Cell Distribution Width 18.0H, Platelet Count 366, Mean Platelet Volume 8.8, Neutrophils (%) (Auto) 81H, Lymphocytes (%) (Auto) 12 , Monocytes (%) (Auto) 5, Eosinophils (%) (Auto) 1, Basophils (%) (Auto) 0, Neutrophils # (Auto) 6.5, Lymphocytes # (Auto) 1.0, Monocytes # (Auto) 0.4, Eosinophils # (Auto) 0.1, Basophils # (Auto) 0.0, Sodium Level 137, Potassium Level 4.1, Chloride Level 101, Carbon Dioxide Level 27, Anion Gap 9, Blood Urea Nitrogen 15, Creatinine 1.01, Estimat Glomerular Filtration Rate > 60, BUN/ Creatinine Ratio 15, Glucose Level 254H, Calcium Level 8.3L, Corrected Calcium 9.3, Total Bilirubin 0.5, Aspartate Amino Transf (AST/SGOT) 15, Alanine Aminotransferase (ALT/SGPT) 13, Alkaline Phosphatase 86, Total Protein 4.6L, Albumin 2.7L 07/20/18 10:56: Glucometer 343H Microbiology 07/07/18 Blood Culture - Final, Complete No growth 07/16/18 MRSA Screen - Final, Complete MRSA not isolated 07/06/18 Urine Culture - Final, Complete NO GROWTH A/P: Assessment/Dx: Acute respiratory failure, pulmonary edema, Recent GI bleeding, Severe Peptic ulcer disease, Severe dilated cardiomyopathy, Smoking, HTN, DM, Hyperlipidemia, Hypokalemia, CKD, Leg discomfort, Aortic insufficiency, ASD, Acute diastolic CHF, Pulmonary HTN, COPD Plan: Acute respiratory failure, pulmonary edema, chest x-ray shows pulmonary edema, increased BNP. Continue IV Lasix. Significant improvement. With improved oxygen requirement. Recent GI bleeding, on PPI and sucrafate. received PRBCs. Hb improved and stable now. Severe Peptic ulcer disease, Severe dilated cardiomyopathy, LVEF on Echo 25% with anterior/apical hypokinesis. very likely due to CAD. Coronary angiography and intervention is recommended, however contraindicated with active GI bleeding and anemia. Caution with IV fluids. On lisinopril 5mg daily and metoprolol 25mg twice daily. cannot give aspirin or plavix for now. I spoke at length with Dr. Varma. She is going to advance diet and continue to monitor H/H. discussed with Dr. Varma today 07/13/2018. 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 Collaterals from the left circumflex artery. Moderate left circumflex artery stenosis. Severe LAD stenosis treated successfully with drug-eluting stents. LVEDP 28 mmHg. Lifevest for primary prevention of sudden cardiac , dilated cardiomyopathy. Patient is wearing a LifeVest. Smoking - smoking cessation was strongly recommended. HTN, lisinopril and BB. DM, continue metformin for now. Hyperlipidemia, statin therapy. Hypokalemia, CKD; Diabetic nephropathy likely. Resting Leg discomfort, lifestyle limiting claudication, bilateral significant PAD. Likely peripheral angiography in the near future. Aortic insufficiency, follow clinically. 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 Acute diastolic CHF, pseudonormal diastolic dysfunction. caution with IV fluids. Pulmonary HTN, likely secondary to COPD. COPD, defer to primary team. I believe the patient may require in-hospital rehabilitation. Thank you for your consultation. Please call me if you have any questions. Kusum Chandra MD, FACP, FACC, FSCAI, FHRS, CCDS Interventional Cardiology Cardiac Electrophysiology Vascular Medicine and Endovascular Interventions Focused Exam Time of Focused Exam: 07:40 Jose CHANDRA MD Jul 20, 2018 9:23 am
[2018-07-20] MEDS: lisINopril 5 MG (PRINIVIL) TABLET PO SCH (09:24)
[2018-07-20] MEDS: ASPIRIN E.C. 81 MG (ECOTRIN) TAB PO SCH (09:24)
[2018-07-20] MEDS: TICAGRELOR 90 MG TABLET (BRILINTA) PO SCH ×2 (09:24→21:20)
[2018-07-20] MEDS: PANTOPRAZOLE 40 MG (PROTONIX) TAB PO SCH ×2 (09:24→21:20)
[2018-07-20] MEDS: SENNA W/DOCUSATE (SENOKOT S) TABLET PO SCH ×2 (09:25→21:19)
[2018-07-20] MEDS: PARoxetine 20 MG (PAXIL) TAB PO SCH ×2 (09:25→21:19)
[2018-07-20] MEDS: FUROSEMIDE 40 MG/4 ML INJ (LASIX) IVP SCH (09:25)
[2018-07-20] MEDS: PATCH REMOVAL TP SCH (09:26)
[2018-07-20] MEDS: NICOTINE 21 MG (NICODERM) PATCH TD SCH (09:26)
[2018-07-20] MEDS: ALPRAZolam 0.5 MG (XANAX) TAB PO SCH ×2 (09:26→21:20)
--- NOTE | 2018-07-20 10:11 | Physical Therapy Daily Note ---
PT Daily Note-Current Subjective Pt awake in bed when PT entered room. Pt reported he wanted to get up and walk for PT today. Pain Numeric Pain Scale: 0-No Pain Location: No Pain Reported Mental Status Patient Orientation: Normal For Age Attachments: Oxygen (vapotherm) Transfers Functional [place] Measure 0=Not Assessed/NA 4=Minimal Assistance 1=Total Assistance 5=Supervision or Setup 2=Maximal Assistance 6=Modified [place] 3=Moderate Assistance 7=Complete IndependenceIRFPAI Quality Coding Scale 6 Independent with activity with or without an assistive device 5 Patient requires set up or clean up by helper. Patient completes activity by themselves 4 Supervision or touching assist (CGA). [place] provide cues , steadying assist 3 The helper provides less than half the effort to complete the activity 2 The helper provides more than half the effort to complete the activity 1 Dependent. The helper does all the effort to complete an activity 7 Patient refused to complete or attempt activity 9 The patient did not perform the activity before the current illness or injury 88 Not attempted due to Medical conditions or safety concerns Transfers (B, C, W/C) (FIM): 4 Scootin Rollin Supine to/from Sit: 4 Sit to/from Stand: 4 Weight Bearing Right Lower Extremity: Right Full Weight Bearing Left Lower Extremity: Left Full Weight Bearing Gait Training Gait (FIM): 1 Distance (FIM): 1=up to 49 ft Distance: 20' Gait Level of Assist: 4 Gait Persons Needed: 1 Gait Assistive Device: FWW Patient limited with ambulation due to vapotherm. Exercises Supine Ex: Ankle pumps, Quad Set, Heel Slides, Straight leg raise Supine Reps: 10 Assessment Patient performed LE exercises in bed at the beginning of therapy. PT interrupted for Pt to have chest X-ray performed in room for 5 mins. Patient then was limited in ambulation due to vapotherm connection. Patient used a FWW and required CGA before returning to bedside recliner. PT Short Term Goals Short Term Goals Time Frame: Jul 15, 2018 PT Director Athletic Goals Shelter Goals PT Director Athletic Goals Time Frame: Jul 14, 2018 Transfers (B,C,W/C) (FIM): 6 Gait (FIM): 6 Gait distance (FIM): 3=150 ft Gait Level of Assist: 6 Gait Assistive Device: FWW PT Plan Problem List Problem List: Activity Tolerance, Functional Strength, Safety, Balance, Gait, Transfer, Bed Mobility Treatment/Plan Treatment Plan: Continue Plan of Care Treatment Plan: Bed Mobility, Education, Functional Activity Michel, Functional Strength, Gait, Safety, Therapeutic Exercise, Transfers Treatment Duration: Jul 24, 2018 Frequency: 6 times per week Estimated Hrs Per Day: .5 hour per day Patient and/or Family Agrees t: Yes Time/GCodes Time In: 907 Time Out: 937 Total Billed Treatment Time: 25 Total Billed Treatment 1 Visit EX - 15' FA - 10' (5 min x ray) YONG TODD PT Jul 20, 2018 10:11
--- NOTE | 2018-07-20 10:15 | Progress Note-Hospitalist ---
FRANCA LAO 07/20/18 1015: Subjective HPI/CC On Admission Date Seen by Provider: Jul 20, 2018 Time Seen by Provider: 09:00 Subjective/Events-last exam Vapotherm is being weaned IRF not a candidate due to severe debility May need to swing him due to lengthy recovery and needs PVD treatment next week when he is stronger [place] may not be the match BM+ Review of Systems General: Malaise Focused Exam Time of Focused Exam: 07:40 Objective Exam Vital Signs Vital Signs Date Time Temp Pulse Resp B/P (MAP) Pulse Ox O2 Delivery O2 Flow Rate FiO2 07/20/18 16:00 97.9 85 20 109/57 (74) 100 High Flow N/C 10.00 07/20/18 10:54 35 Capillary Refill : Less Than 3 SecondsLess Than 3 Seconds General Appearance: No Apparent Distress, WD/WN, Chronically ill, Thin Respiratory: Chest Non Tender, Lungs Clear, Normal Breath Sounds, No Accessory Muscle Use, No Respiratory Distress Cardiovascular: Regular Rate, Rhythm, No Edema, No Gallop, No JVD, No Murmur, Normal Peripheral Pulses Gastrointestinal: Normal Bowel Sounds, No Organomegaly, No Pulsatile Mass, Non Tender, Soft Neurologic/Psychiatric: Alert, Oriented x3, No Motor/Sensory Deficits, Normal Mood/Affect Results/Procedures Lab Laboratory Tests 07/20/18 05:59 Patient resulted labs reviewed. Assessment/Plan Assessment and Plan Assess & Plan/Chief Complaint Assessment: GIB Respiratory insufficiency Cardiomyopathy life vest in place PVD severe Plan: Monitor closely Rash on feet likely due to PVD Wean Vapotherm May need swing bed Diagnosis/Problems Diagnosis/Problems (1) Acute systolic CHF (congestive heart failure) Status: Acute (2) Pulmonary edema cardiac cause Status: Acute (3) Severe anemia Status: Acute (4) Diabetes mellitus, type 2 Status: Chronic Qualifiers: Diabetes mellitus prison insulin use: with prison use (5) BPH (benign prostatic hyperplasia) Status: Chronic Qualifiers: Lower urinary tract symptom presence: symptoms present (6) Leg weakness, bilateral Status: Acute (7) Poor appetite Status: Acute (8) GERD (gastroesophageal reflux disease) Status: Chronic (9) PTSD (post-traumatic stress disorder) Status: Chronic (10) COPD (chronic obstructive pulmonary disease) Status: Chronic (11) Urinary retention due to benign prostatic hyperplasia Status: Acute Clinical Quality Measures DVT/VTE Risk/Contraindication: Risk Factor Score Per Nursin RFS Level Per Nursing on Admit: 4+=Very High DERIAN ANDRADE MED STUDENT 07/20/18 1059: Subjective Subjective/Events-last exam Patient states that he is feeling better today He feels like he is getting his strength back He is still concerned about the rash on his feet He states that his appetite has returned He is planning on walking with PT today Objective Exam General Appearance: No Apparent Distress, WD/WN Respiratory: Chest Non Tender, Lungs Clear, Normal Breath Sounds, No Accessory Muscle Use, No Respiratory Distress Cardiovascular: Regular Rate, Rhythm, No Edema, No Gallop, No JVD, No Murmur Gastrointestinal: Normal Bowel Sounds, No Organomegaly Neurologic/Psychiatric: Alert, Oriented x3, No Motor/Sensory Deficits, Normal Mood/Affect Skin: Normal Color, Warm/Dry Assessment/Plan Assessment and Plan Assess & Plan/Chief Complaint Assessment: 1) GI bleed 2) Generalized weakness Plan: 1) Continue to monitor for anemia 2) Supplemental iron 3) Physical rehabilitation FRANCA LAO DO Jul 20, 2018 10:15 DERIAN ANDRADE MED STUDENT Jul 20, 2018 10:59
--- NOTE | 2018-07-20 10:21 | Diagnostic Imaging Report ---
INDICATION: Shortness of breath. TECHNIQUE: Single view chest at 9:29 AM. CORRELATION STUDY: 07/17/2018. FINDINGS: The examination is compromised as the patient has a life vest in place obscuring a large portion of the chest anatomy. The heart size is enlarged. The severity of vascular congestion and edema has improved and diminished. Some congestive changes do remain. Asymmetric parenchymal density about the lung bases is likely a combination of effusions along with atelectasis, infiltrate, and/or edema, right greater than left, persisting but overall improved as well. IMPRESSION: Overall improved appearance about the chest. The severity of edema has diminished but does persist. The combination of effusion along with infiltrate, atelectasis, and/or edema about the lung bases persists but overall is improved as well. Dictated by: Dictated on workstation # [id number]
[2018-07-20 12:00] VITALS: BP 113/66
[2018-07-20] MEDS: POLYETHYLENE GLYCOL 17 GM (MIRALAX) PACK PO SCH ×2 (14:57→21:19)
[2018-07-20] MEDS: MENTHOL/ZINC OXIDE (CALMOSEPTINE) 113 GM TUBE TOP SCH ×2 (14:57→21:25)
[2018-07-20] MEDS: diphenhydrAMINE 25 MG TAB (BENADRYL) PO PRN (15:01)
[2018-07-20 16:00] VITALS: BP 109/57
[2018-07-20] MEDS: NS IV 1000 ML 1,000 ML IV SCH (16:48)
[2018-07-20] MEDS: TAMSULOSIN 0.4 MG (FLOMAX) CAP PO SCH (16:52)
--- NOTE | 2018-07-20 16:57 | Progress Note ---
Subjective Date Seen by a Provider: Jul 20, 2018 Time Seen by a Provider: 16:52 Subjective/Events-last exam patient laying in bed resting. no new complaints. hgb drop to 8 tolerating diet. breathing easier. denies n/v fever sweats chills Focused Exam Time of Focused Exam: 07:40 Objective Exam Vital Signs Date Time Temp Pulse Resp B/P (MAP) Pulse Ox O2 Delivery O2 Flow Rate FiO2 07/20/18 15:05 100 High Flow N/C 15.00 07/20/18 13:00 84 07/20/18 12:00 97.1 88 20 113/66 (82) 97 Vapotherm 35.00 10.00 07/20/18 10:54 93 Vapotherm 10.00 35 07/20/18 08:04 98.0 74 20 113/56 (75) 97 Vapotherm 35.00 10.00 07/20/18 07:25 Vapotherm 10.00 35 07/20/18 07:19 98 Vapotherm 14.00 35 07/20/18 07:00 82 07/20/18 04:00 97.5 91 16 101/56 (71) 93 Vapotherm 35.00 14.00 07/20/18 02:15 88 Vapotherm 14.00 30 07/20/18 01:00 96 07/19/18 23:45 98.4 83 20 101/57 (72) 93 Vapotherm 30.00 14.00 07/19/18 23:22 93 Vapotherm 14.00 30 07/19/18 21:00 Vapotherm 15.00 30 07/19/18 19:50 96.5 86 18 105/56 (72) 100 Vapotherm 35.00 15.00 07/19/18 19:43 98 Vapotherm 14.00 30 07/19/18 19:37 99 Vapotherm 15.00 35 07/19/18 19:00 90 I & O 07/20/18 07:00 Intake Total 1610 ml Output Total 2775 ml Balance -1165 ml Capillary Refill : Less Than 3 SecondsLess Than 3 Seconds General Appearance: No Apparent Distress, WD/WN HEENT: PERRL/EOMI; No Scleral Icterus (L), No Scleral Icterus (R) Neck: Non Tender Respiratory: Chest Non Tender, Normal Breath Sounds, No Accessory Muscle Use, No Respiratory Distress Cardiovascular: Regular Rate, Rhythm, No Edema, No Gallop, No JVD, No Murmur Gastrointestinal: non tender, soft, no organomegaly, no pulsatile mass Extremity: Non Tender, Swelling (Bilateral lower extremity improving) Neurologic/Psychiatric: Alert, Oriented x3, No Motor/Sensory Deficits, Normal Mood/Affect Skin: Normal Color, Warm/Dry Results Lab Laboratory Tests 07/19/18 22:08: Glucometer 284H 07/20/18 04:55: Glucometer 281H 07/20/18 05:59: White Blood Count 8.0, Red Blood Count 2.58L, Hemoglobin 8.0L, Hematocrit 25L, Mean Corpuscular Volume 98, Mean Corpuscular Hemoglobin 31, Mean Corpuscular Hemoglobin Concent 32, Red Cell Distribution Width 18.0H, Platelet Count 366, Mean Platelet Volume 8.8, Neutrophils (%) (Auto) 81H, Lymphocytes (%) (Auto) 12 , Monocytes (%) (Auto) 5, Eosinophils (%) (Auto) 1, Basophils (%) (Auto) 0, Neutrophils # (Auto) 6.5, Lymphocytes # (Auto) 1.0, Monocytes # (Auto) 0.4, Eosinophils # (Auto) 0.1, Basophils # (Auto) 0.0, Sodium Level 137, Potassium Level 4.1, Chloride Level 101, Carbon Dioxide Level 27, Anion Gap 9, Blood Urea Nitrogen 15, Creatinine 1.01, Estimat Glomerular Filtration Rate > 60, BUN/ Creatinine Ratio 15, Glucose Level 254H, Calcium Level 8.3L, Corrected Calcium 9.3, Total Bilirubin 0.5, Aspartate Amino Transf (AST/SGOT) 15, Alanine Aminotransferase (ALT/SGPT) 13, Alkaline Phosphatase 86, Total Protein 4.6L, Albumin 2.7L 07/20/18 10:56: Glucometer 343H 07/20/18 15:56: Glucometer 322H Microbiology 07/07/18 Blood Culture - Final, Complete No growth 07/16/18 MRSA Screen - Final, Complete MRSA not isolated 07/06/18 Urine Culture - Final, Complete NO GROWTH Assessment/Plan Assessment/Plan Assessment/Plan Anemia with GI bleed most likely upper due to duodenal ulcers and hx dark tarry stools Posttraumatic stress disorder Duodenal ulcers - no signs of active bleed seen during EGD Status post PCI to LAD Pulmonary edema Patient on Protonix, Carafate, tolerating diet. H/H at 8, continue to follow and will transfuse as needed pulmonary edema - breathing easier Medical management If continues drops may need repeat endoscopy; possibly lower as well as upper, likely do as outpatient for follow up. Clinical Quality Measures DVT/VTE Risk/Contraindication: Risk Factor Score Per Nursin RFS Level Per Nursing on Admit: 4+=Very High JAVIER MARTINEZ DO Jul 20, 2018 16:57
[2018-07-20 20:54] VITALS: BP 98/55
[2018-07-20] MEDS: ATORVASTATIN 80 MG (LIPITOR) TABLET PO SCH (21:19)
[2018-07-21] VITALS (7 sets, daily range): BP systolic 91–109; BP diastolic 52–73
[2018-07-21] MEDS: RT-ALBUTEROL SULF 2.5 MG/3 ML PRE-MIX VIAL INH SCH ×6 (02:28→22:21)
[2018-07-21] MEDS: NS IV 1000 ML 1,000 ML IV SCH ×2 (04:00→14:09)
[2018-07-21] MEDS: SUCRALFATE 1 GM (CARAFATE) TAB PO SCH ×4 (06:21→22:10)
[2018-07-21] MEDS: NYSTATIN ORAL SUSP 5 ML UDC PO SCH ×3 (06:21→16:34)
[2018-07-21] MEDS: inSUlin ASPART (NovoLOG) 1 UNIT/0.01 ML (CHARGE PER UNIT) SC SCH ×4 (06:22→22:09)
[2018-07-21] MEDS: CATHETER FLUSH 10 ML SYR IV SCH ×3 (06:22→22:11)
[2018-07-21] MEDS: RT-ADVAIR HFA 115/21 MCG PER PUFF IH SCH ×2 (06:26→18:21)
[2018-07-21] MEDS: UMECLIDINIUM BROMIDE (INCRUSE ELLIPTA) 7'S IH SCH (06:26)
--- NOTE | 2018-07-21 07:14 | Progress Note ---
Subjective Date Seen by a Provider: Jul 21, 2018 Time Seen by a Provider: 07:12 Subjective/Events-last exam Patient doing well he states. breathing well. had bm in middle of night, no blood. tolerating diet. denies n/v fever sweats chills shortness of breath or chest pain. Focused Exam Time of Focused Exam: 07:40 Objective Exam Vital Signs Date Time Temp Pulse Resp B/P (MAP) Pulse Ox O2 Delivery O2 Flow Rate FiO2 07/21/18 06:30 95 Nasal Cannula 3.00 07/21/18 06:29 95 Nasal Cannula 3.00 07/21/18 06:26 95 High Flow N/C 3.00 07/21/18 04:00 98.2 84 20 100/73 (82) 95 High Flow N/C 8.00 07/21/18 02:28 98 High Flow N/C 5.00 07/21/18 01:07 108/58 (75) 07/21/18 01:00 100 07/21/18 00:00 98.4 95 16 94/55 (68) 99 High Flow N/C 8.00 07/20/18 22:15 98 High Flow N/C 6.50 07/20/18 22:15 98 High Flow N/C 8.00 07/20/18 21:00 High Flow N/C 10.00 07/20/18 20:54 98.2 83 21 98/55 (69) 100 High Flow N/C 8.00 07/20/18 19:35 100 High Flow N/C 10.00 07/20/18 19:35 Nasal Cannula 10.00 07/20/18 19:00 90 07/20/18 16:00 97.9 85 20 109/57 (74) 100 High Flow N/C 10.00 07/20/18 15:05 100 High Flow N/C 15.00 07/20/18 13:00 84 07/20/18 12:00 97.1 88 20 113/66 (82) 97 Vapotherm 35.00 10.00 07/20/18 10:54 93 Vapotherm 10.00 35 07/20/18 09:00 Nasal Cannula 15.00 35 07/20/18 08:04 98.0 74 20 113/56 (75) 97 Vapotherm 35.00 10.00 07/20/18 07:25 Vapotherm 10.00 35 07/20/18 07:19 98 Vapotherm 14.00 35 I & O 07/21/18 07:00 Intake Total 1950 ml Output Total 2425 ml Balance -475 ml Capillary Refill : Less Than 3 SecondsLess Than 3 Seconds General Appearance: No Apparent Distress, WD/WN, Chronically ill, Thin HEENT: PERRL/EOMI; No Scleral Icterus (L), No Scleral Icterus (R) Neck: Non Tender Respiratory: Chest Non Tender, Lungs Clear, Normal Breath Sounds, No Accessory Muscle Use, No Respiratory Distress Cardiovascular: Regular Rate, Rhythm, No Edema, No Gallop, No JVD, No Murmur, Normal Peripheral Pulses Gastrointestinal: non tender, soft, no organomegaly, no pulsatile mass Extremity: Non Tender, Swelling (Bilateral lower extremity improving) Neurologic/Psychiatric: Alert, Oriented x3, No Motor/Sensory Deficits, Normal Mood/Affect Skin: Normal Color, Warm/Dry Results Lab Laboratory Tests 07/20/18 10:56: Glucometer 343H 07/20/18 15:56: Glucometer 322H 07/20/18 20:42: Glucometer 210H 07/21/18 05:49: Glucometer 270H Microbiology 07/07/18 Blood Culture - Final, Complete No growth 07/16/18 MRSA Screen - Final, Complete MRSA not isolated 07/06/18 Urine Culture - Final, Complete NO GROWTH Assessment/Plan Assessment/Plan Assessment/Plan Anemia with GI bleed most likely upper due to duodenal ulcers and hx dark tarry stools Posttraumatic stress disorder Duodenal ulcers - no signs of active bleed seen during EGD Status post PCI to LAD Pulmonary edema Patient on Protonix, Carafate, tolerating diet. following hgb, continue to follow and will transfuse as needed pulmonary edema - breathing easier Medical management If continues drops may need repeat endoscopy; possibly lower as well as upper, likely do as outpatient for follow up. Clinical Quality Measures DVT/VTE Risk/Contraindication: Risk Factor Score Per Nursin RFS Level Per Nursing on Admit: 4+=Very High JAVIER MARTINEZ DO Jul 21, 2018 07:14
--- NOTE | 2018-07-21 07:21 | Pulmonary Progress Note ---
Subjective Time Seen by a Provider: 13:30 Sepsis Event Evaluation Height, Weight, BMI Height: 5'7.00" Weight: 141lbs. 0.0oz. 63.804163cm; 24.3 BMI Method:Stated Focused Exam Time of Focused Exam: 07:40 Exam Exam Vital Signs Date Time Temp Pulse Resp B/P (MAP) Pulse Ox O2 Delivery O2 Flow Rate FiO2 07/21/18 06:30 95 Nasal Cannula 3.00 07/21/18 06:29 95 Nasal Cannula 3.00 07/21/18 06:26 95 High Flow N/C 3.00 07/21/18 04:00 98.2 84 20 100/73 (82) 95 High Flow N/C 8.00 07/21/18 02:28 98 High Flow N/C 5.00 07/21/18 01:07 108/58 (75) 07/21/18 01:00 100 07/21/18 00:00 98.4 95 16 94/55 (68) 99 High Flow N/C 8.00 07/20/18 22:15 98 High Flow N/C 6.50 07/20/18 22:15 98 High Flow N/C 8.00 07/20/18 21:00 High Flow N/C 10.00 07/20/18 20:54 98.2 83 21 98/55 (69) 100 High Flow N/C 8.00 07/20/18 19:35 100 High Flow N/C 10.00 07/20/18 19:35 Nasal Cannula 10.00 07/20/18 19:00 90 07/20/18 16:00 97.9 85 20 109/57 (74) 100 High Flow N/C 10.00 07/20/18 15:05 100 High Flow N/C 15.00 07/20/18 13:00 84 07/20/18 12:00 97.1 88 20 113/66 (82) 97 Vapotherm 35.00 10.00 07/20/18 10:54 93 Vapotherm 10.00 35 07/20/18 09:00 Nasal Cannula 15.00 35 07/20/18 08:04 98.0 74 20 113/56 (75) 97 Vapotherm 35.00 10.00 07/20/18 07:25 Vapotherm 10.00 35 07/20/18 07:19 98 Vapotherm 14.00 35 I & O 07/21/18 07:00 Intake Total 1950 ml Output Total 2425 ml Balance -475 ml Height & Weight Height: 5'7.00" Weight: 141lbs. 0.0oz. 63.398049hz; 24.3 BMI Method:Stated General Appearance: No Apparent Distress, WD/WN, Chronically ill, Thin HEENT: PERRL/EOMI; No Scleral Icterus (L), No Scleral Icterus (R) Neck: Non Tender Respiratory: Chest Non Tender, Lungs Clear, Normal Breath Sounds, No Accessory Muscle Use, No Respiratory Distress Cardiovascular: Regular Rate, Rhythm, No Edema, No Gallop, No JVD, No Murmur, Normal Peripheral Pulses Capillary Refill: Less Than 3 Seconds Gastrointestinal: non tender, soft, no organomegaly, no pulsatile mass Extremity: Non Tender, Swelling (Bilateral lower extremity improving) Neurologic/Psychiatric: Alert, Oriented x3, No Motor/Sensory Deficits, Normal Mood/Affect Skin: Normal Color, Warm/Dry Results Lab Laboratory Tests 07/20/18 05:59 Assessment/Plan Assessment/Plan Pulmonary edema with severe dilated cardiomyopathy EF 25% -Life vest -Cardiology following -Lasix SOB - improved Hx of COPD -SVNS, advair oxygen CKD Recent GIB with gastric ulcers Tobacco use Aortic insufficiency ASD, Pulmonary HTN COPD Pt is ok for discharge from pulmonary standpoint. Will f/u as out patient. MALGORZATA SUMNER DO Jul 21, 2018 07:21
[2018-07-21] MEDS: FUROSEMIDE 40 MG/4 ML INJ (LASIX) IVP SCH (08:47)
[2018-07-21] MEDS: NICOTINE 21 MG (NICODERM) PATCH TD SCH (08:47)
[2018-07-21] MEDS: lisINopril 5 MG (PRINIVIL) TABLET PO SCH (08:48)
[2018-07-21] MEDS: ALPRAZolam 0.5 MG (XANAX) TAB PO SCH ×2 (08:48→22:11)
[2018-07-21] MEDS: PANTOPRAZOLE 40 MG (PROTONIX) TAB PO SCH ×2 (08:52→22:09)
[2018-07-21] MEDS: PARoxetine 20 MG (PAXIL) TAB PO SCH ×2 (08:53→22:10)
[2018-07-21] MEDS: TICAGRELOR 90 MG TABLET (BRILINTA) PO SCH ×2 (08:56→22:10)
[2018-07-21] MEDS: ASPIRIN E.C. 81 MG (ECOTRIN) TAB PO SCH (08:56)
[2018-07-21] MEDS: PATCH REMOVAL TP SCH (08:56)
--- NOTE | 2018-07-21 09:04 | Physical Therapy Daily Note ---
PT Daily Note-Current Subjective Pt awake in bed visiting with son when PT arrived. Patient agreed to exercise for therapy. Pain Numeric Pain Scale: 0-No Pain Location: No Pain Reported Mental Status Patient Orientation: Normal For Age Attachments: Oxygen Transfers Functional [place] Measure 0=Not Assessed/NA 4=Minimal Assistance 1=Total Assistance 5=Supervision or Setup 2=Maximal Assistance 6=Modified [place] 3=Moderate Assistance 7=Complete [place] IRFPAI Quality Coding Scale 6 Independent with activity with or without an assistive device 5 Patient requires set up or clean up by helper. Patient completes activity by themselves 4 Supervision or touching assist (CGA). [place] provide cues , steadying assist 3 The helper provides less than half the effort to complete the activity 2 The helper provides more than half the effort to complete the activity 1 Dependent. The helper does all the effort to complete an activity 7 Patient refused to complete or attempt activity 9 The patient did not perform the activity before the current illness or injury 88 Not attempted due to Medical conditions or safety concerns Transfers (B, C, W/C) (FIM): 4 Scootin Rollin Supine to/from Sit: 5 Sit to/from Stand: 4 Weight Bearing Right Lower Extremity: Right Full Weight Bearing Left Lower Extremity: Left Full Weight Bearing Gait Training Gait (FIM): 1 Distance (FIM): 1=up to 49 ft Distance: 5 Gait Level of Assist: 4 Gait Persons Needed: 1 Gait Assistive Device: FWW Exercises Supine Ex: Quad Set, Heel Slides, Short Arc Quads, Straight leg raise, Hip abd/ add Supine Reps: 20 Treatments bed mobility, transfers, ambulation, functional strengthening Assessment Current Status: Poor Progress Pt able to perform bed exercises without showing signs of fatigue. Patient was CGA in transferring from bed to chair. Patient will continue therapy to maintain current level of function. PT Short Term Goals Short Term Goals Time Frame: Jul 15, 2018 PT Longterm Goals Automotive Brake Technician Goals PT Longterm Goals Time Frame: Jul 14, 2018 Transfers (B,C,W/C) (FIM): 6 Gait (FIM): 6 Gait distance (FIM): 3=150 ft Gait Level of Assist: 6 Gait Assistive Device: FWW PT Plan Problem List Problem List: Activity Tolerance, Functional Strength, Safety, Balance, Gait, Transfer, Bed Mobility Treatment/Plan Treatment Plan: Continue Plan of Care Treatment Plan: Bed Mobility, Education, Functional Activity Michel, Functional Strength, Gait, Safety, Therapeutic Exercise, Transfers Treatment Duration: Jul 24, 2018 Frequency: 6 times per week Estimated Hrs Per Day: .5 hour per day Patient and/or Family Agrees t: Yes Safety Risks/Education Patient Education: Gait Training, Transfer Techniques, Correct Positioning, Safety Issues Teaching Recipient: Patient Teaching Methods: Demonstration, Discussion Response to Teaching: Reinforcement Needed Time/GCodes Time In: 838 Time Out: 851 Total Billed Treatment Time: 13 Total Billed Treatment 1 VIsit FA - 13' CRISTÓBAL MONTEMAYOR PT Jul 21, 2018 09:04
--- NOTE | 2018-07-21 11:22 | Cardiology Progress Note ---
Cardiology SOAP Progress Note Subjective: Improved Shortness of breath. No resting leg pain today. Objective: I&O/Vital Signs 07/21/18 07/21/18 07/21/18 07/21/18 02:28 04:00 06:26 06:29 Temp 98.2 Pulse 84 Resp 20 B/P (MAP) 100/73 (82) Pulse Ox 98 95 95 95 O2 Delivery High Flow N/C High Flow N/C High Flow N/C Nasal Cannula O2 Flow Rate 5.00 8.00 3.00 3.00 07/21/18 07/21/18 07/21/18 07/21/18 06:30 07:00 08:00 08:47 Temp 98.4 Pulse 85 90 Resp 18 B/P (MAP) 103/58 (73) Pulse Ox 95 92 O2 Delivery Nasal Cannula High Flow N/C High Flow N/C O2 Flow Rate 3.00 3.00 8.00 07/21/18 07/21/18 07/21/18 11:25 12:12 12:42 Temp 98.5 Pulse 86 88 Resp 20 B/P (MAP) 109/57 (74) Pulse Ox 95 92 O2 Delivery High Flow N/C High Flow N/C O2 Flow Rate 2.50 8.00 07/21/18 00:00 Intake Total 2650 ml Output Total 1725 ml Balance 925 ml Weight (Pounds): 141 Weight (Ounces): 0.0 Weight (Calculated Kilograms): 63.529761 Constitutional: appears stated age, AAO x 3; No apparent distress; well- developed, well-nourished Respiratory: No accessory muscle use, No respiratory distress, No chest tender , No chest expansion is symmetric; chest is bilaterally symmetric; No lungs clear to percussion; crackles; No rhonchi, No rales, No stridor, No wheezing, No pleural rub, No other Cardiovascular: regular rate-rhythm; No irregularly irregular, No extra beats, No parasternal heave is noted, No JVD, No edema, No bradycardia, No tachycardia , No point of maximal impulse, No cardiac thrills are palpable; S1 and S2; No gallop/S3, No gallop/S4, No diastolic murmur, No systolic murmur, No friction rub, No click, No other Gastrointestional: No tender, No soft, No round, No distended, No pulsatile mass, No organomegaly, No guarding, No rebound, No tenderness, No hernia, No mass, No audible bowel sounds, No abnormal bowel sounds, No abdominal bruits, No spleenomegaly, No other Extremities: pedal edema; No clubbing, No cyanosis, No significant edema Neurologic/Psychiatric: no motor/sensory deficits, alert, normal mood/affect, oriented x 3, power is 5/5 both on sides Skin: No normal color, No warm/dry, No cyanosis, No cool, No diaphoresis, No damp, No ecchymosis, No jaundice, No mottled; pallor; No rash, No tattoos/ piercings, No ulcerations, No rash on exposed areas, No ulcerations on exposed areas, No other Results/Procedures: Labs Laboratory Tests 07/20/18 15:56: Glucometer 322H 07/20/18 20:42: Glucometer 210H 07/21/18 05:49: Glucometer 270H 07/21/18 11:01: Glucometer 378H Microbiology 07/07/18 Blood Culture - Final, Complete No growth 07/16/18 MRSA Screen - Final, Complete MRSA not isolated 07/06/18 Urine Culture - Final, Complete NO GROWTH A/P: Assessment/Dx: Acute respiratory failure, pulmonary edema, Recent GI bleeding, Severe Peptic ulcer disease, Severe dilated cardiomyopathy, Smoking, HTN, DM, Hyperlipidemia, Hypokalemia, CKD, Leg discomfort, Aortic insufficiency, ASD, Acute diastolic CHF, Pulmonary HTN, COPD Plan: Acute respiratory failure, pulmonary edema, chest x-ray shows pulmonary edema, increased BNP. Continue IV Lasix. Significant improvement. With improved oxygen requirement. Recent GI bleeding, on PPI and sucrafate. received PRBCs. Hb improved and stable now. Severe Peptic ulcer disease, Severe dilated cardiomyopathy, LVEF on Echo 25% with anterior/apical hypokinesis. very likely due to CAD. Coronary angiography and intervention is recommended, however contraindicated with active GI bleeding and anemia. Caution with IV fluids. On lisinopril 5mg daily and metoprolol 25mg twice daily. cannot give aspirin or plavix for now. I spoke at length with Dr. Varma. She is going to advance diet and continue to monitor H/H. discussed with Dr. Gault today 07/13/2018. 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 Collaterals from the left circumflex artery. Moderate left circumflex artery stenosis. Severe LAD stenosis treated successfully with drug-eluting stents. LVEDP 28 mmHg. Lifevest for primary prevention of sudden cardiac , dilated cardiomyopathy. Patient is wearing a LifeVest. Smoking - smoking cessation was strongly recommended. HTN, lisinopril and BB. DM, continue metformin for now. Hyperlipidemia, statin therapy. Hypokalemia, CKD; Diabetic nephropathy likely. Resting Leg discomfort, lifestyle limiting claudication, bilateral significant PAD. Likely peripheral angiography in the near future but can be done as an outpatient. Aortic insufficiency, follow clinically. 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 Acute diastolic CHF, pseudonormal diastolic dysfunction. caution with IV fluids. Pulmonary HTN, likely secondary to COPD. COPD, defer to primary team. I believe the patient may require in-hospital rehabilitation. Thank you for your consultation. Please call me if you have any questions. Kusum Chandra MD, FACP, FACC, FSCAI, FHRS, CCDS Interventional Cardiology Cardiac Electrophysiology Vascular Medicine and Endovascular Interventions Focused Exam Time of Focused Exam: 07:40 Jose CHANDRA MD Jul 21, 2018 11:22 am
[2018-07-21] MEDS: SENNA W/DOCUSATE (SENOKOT S) TABLET PO SCH ×2 (12:02→22:10)
[2018-07-21] MEDS: POLYETHYLENE GLYCOL 17 GM (MIRALAX) PACK PO SCH ×2 (12:02→22:09)
[2018-07-21] MEDS: MENTHOL/ZINC OXIDE (CALMOSEPTINE) 113 GM TUBE TOP SCH ×2 (12:03→22:11)
[2018-07-21] MEDS: diphenhydrAMINE 25 MG TAB (BENADRYL) PO PRN (14:30)
[2018-07-21] MEDS: ACETAMINOPHEN 500 MG TAB (TYLENOL) PO PRN (14:47)
--- NOTE | 2018-07-21 14:57 | Progress Note (SOAP) ---
Subjective Subjective/Events-last exam Pt improving, continue to be very weak with minimal ambulation. Working with PT , need OT eval. Review of Systems Date Seen by Provider: Jul 21, 2018 Time Seen by Provider: 09:15 Focused Exam Time of Focused Exam: 07:40 Objective Exam Last Set of Vital Signs Vital Signs Date Time Temp Pulse Resp B/P (MAP) Pulse Ox O2 Delivery O2 Flow Rate FiO2 07/21/18 12:42 88 07/21/18 12:12 98.5 20 109/57 (74) 92 High Flow N/C 8.00 07/20/18 10:54 35 Capillary Refill : Less Than 3 SecondsLess Than 3 Seconds I&O Intake and Output 07/21/18 00:00 Intake Total 3000 ml Output Total 2600 ml Balance 400 ml Intake Oral 2000 ml IV Total 1000 ml Output Urine Total 2600 ml # Bowel Movements 1 General: Alert, Oriented X3, Cooperative Lungs: Clear to Auscultation Heart: Regular Rate Extremities: No Edema Psych/Mental Status: Mental Status NL, Mood NL Results/Procedures Lab Laboratory Tests 07/20/18 15:56: Glucometer 322H 07/20/18 20:42: Glucometer 210H 07/21/18 05:49: Glucometer 270H 07/21/18 11:01: Glucometer 378H Microbiology 07/07/18 Blood Culture - Final, Complete No growth 07/16/18 MRSA Screen - Final, Complete MRSA not isolated 07/06/18 Urine Culture - Final, Complete NO GROWTH Radiology Assessment/Plan Assessment/Plan Assessment & Plan 07/21 - Medically stable but continued weakness and limited ambulation. Will do OT eval. Consult for SNU. Anticipate DC to [facility] by Thursday. Plan for PVD intervention by Dr. Chandra after discharge, possibly next week. (1) Acute and chronic respiratory failure with hypoxia Status: Acute Assessment & Plan: 07/17: Arely consulted today, encourage patient to continue with Aerobike at least every hr, encouraged getting to edge of bed, will titrate as tolerated 07/18: Continue lasix for pulmonary edema, will titrate as tolerated 07/21: improved; down to 2.5L HF NC (2) Pulmonary edema cardiac cause Status: Acute Assessment & Plan: 07/17: Dr Chandra added lasix today, will diuresis and monitor renal function 07/21: improved (3) GI bleed Status: Resolved Assessment & Plan: Pt required another unit of PRBCs last night; Hgb stable for now. EGD with Patrizia today. Consider colonoscopy outpatient, should EGD come back negative. 07/09- EGD yesterday with large ulcers, not actively bleeding. Added sucralfate to pantoprazole but hemoglobin below 6 again this am. 2 units PRBCs, f/u after. 07/10- No vomiting, Hgb stable since transfusion, if continues to be stable would be stable for cath Thursday, Will advance diet today per surgery recommendations 07/11- Hgb stable, Will get retic count today, Start Fe infusions 07/12- Hgb stable today, will discuss case with surgery to see how long they would like to wait for cath, IV iron 07/13: Hgb Stable, continue IV iron 07/14: Hgb down today, discussed with Dr Acharya and will continue to monitor, Continue IV iron 07/15: Hgb up today, continue IV iron replacement 07/16: Hgb stable, continue IV Iron, cath today 07/17: Stable Qualifiers: Qualified Codes: K92.2 - Gastrointestinal hemorrhage, unspecified (4) Urinary retention due to benign prostatic hyperplasia Status: Acute Assessment & Plan: Catheter placed 07/07 due to significant retention. 07/08 start Flomax, may need to d/c with liriano depending on course. 07/15: D/c liriano today (5) Acute systolic CHF (congestive heart failure) Status: Acute Assessment & Plan: 07/10: Echo with EF 25%, plan for cath when anemia is stable 07/11: Discussed case with cardiology, waiting to get cath procedure done 07/13: Cath to be done Thursday or Sunday 07/15: Plan for cath tomorrow 07/16: Cath today with stents placed 07/17: Dr Chandra has ordered lifevest for patient 07/21 : Lifevest in place; pt has had some discharges overnight, being managed by Dr. Chandra (6) Debility Assessment & Plan: PT/OT, Will need rehab vs SNF following hospitalization 07/18: Will consult Rehab 07/21: SW working on placement for long-term; consult in to [facility] (7) Hyperglycemia Status: Acute Assessment & Plan: sliding scale insulin, diabetic diet when taking PO 07/10: A1c pending (8) Lower extremity edema Status: Acute Assessment & Plan: Venous insufficiency/immobility versus related to his kidney function. Consider echocardiogram pending clinical course. 07/09- complaining of cough as well, will obtain echocardiogram 07/10- Abnormal echo, EF 25%, cardiology following 07/12: Discussed the importance of activity, getting to edge of bed, leg exercises and elevation of feet 07/14: Patient up in chair today (9) Severe anemia Status: Acute Assessment & Plan: Pt required another unit of PRBCs last night. EGD with Patrizia today. Consider colonscopy outpatient, should EGD come back negative. 07/09- hgb below 6 this am, 2 units prbc today, repeat hemoglobin after. (10) Hypokalemia Status: Resolved Assessment & Plan: Replace and recheck. (11) Lactic acidosis Status: Resolved Assessment & Plan: Unclear etiology with no source of infection. Improved with IVF. Denies abdominal pain to suggest ischemia. (12) Diabetes mellitus, type 2 Status: Chronic Assessment & Plan: Diabetic diet when taking oral. Sliding scale insulin. 07/21: A1c 7.9%; BS running 200-300, will add Glyburide 2.5 mg daily Qualifiers: (13) Right foot drop Status: Acute Assessment & Plan: MRI showed only lumbar spondylosis. No clear explanation for his foot drop. 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 (14) Poor appetite Status: Acute Assessment & Plan: Denies pain, concern for underlying serious condition given his anemia and weakness. Endoscopy recommended in vs outpatient depending on course. 07/08 EGD today 07/09 EGD yesterday with ulcers, treating with pantoprazole and sucralfate, biopsies pending (15) Leg weakness, bilateral Status: Acute Assessment & Plan: PT. (16) BPH (benign prostatic hyperplasia) Status: Chronic Assessment & Plan: Previously on medication, he stopped due to side effects. Qualifiers: (17) PTSD (post-traumatic stress disorder) Status: Chronic Assessment & Plan: Resume home medications. (18) COPD (chronic obstructive pulmonary disease) Status: Chronic Assessment & Plan: Resume home inhalers (19) DVT prophylaxis Status: Acute Assessment & Plan: No pharmacologic ppx with active bleed. SCDs. Clinical Quality Measures DVT/VTE Risk/Contraindication: Risk Factor Score Per Nursin RFS Level Per Nursing on Admit: 4+=Very High ALBERT ABEL DO Jul 21, 2018 14:57
--- NOTE | 2018-07-21 15:13 | Occupational Therapy Eval ---
OT Evaluation-General/PLF Medical Diagnosis Admission Date Jul 07, 2018 at 01:02 Medical Diagnosis: GI bleed Onset Date: Jul 06, 2018 Therapy Diagnosis Therapy Diagnosis: decr self care, weakness, decr funct mobility, decr act tolerance Height/Weight Height (Feet): 5 Height (Inches): 7.00 Weight (Pounds): 141 Weight (Ounces): 0.0 Precautions Precautions/Isolations: Fall Prevention, Standard Precautions Safety Interventions: None Referral Physician: Oscar Referral Reason: Evaluation/Treatment Medical History Pertinent Medical History: COPD, DM, HTN, Smoking Additional Medical History BPH. Irritable bowel. Dry eyes. PTSD, depression. Current History GI bleed, dizziness. Duodenal ulcers, gastritis, esophagitis, reflux. Pt reported leg numbness and pending stents in legs. LIFE VEST. VAPOTHERM Reviewed History: Yes Social History Home: Apartment ([employer]) Current Living Status: Alone Entry Into Home: Elevator ADL-Prior Level of Function Functional [place] Measure 0=Not Assessed/NA 4=Minimal Assistance 1=Total Assistance 5=Supervision or Setup 2=Maximal Assistance 6=Modified [place] 3=Moderate Assistance 7=Complete [place] IRFPAI Quality Coding Scale 6 Independent with activity with or without an assistive device 5 Patient requires set up or clean up by helper. Patient completes activity by themselves 4 Supervision or touching assist (CGA). [place] provide cues , steadying assist 3 The helper provides less than half the effort to complete the activity 2 The helper provides more than half the effort to complete the activity 1 Dependent. The helper does all the effort to complete an activity 7 Patient refused to complete or attempt activity 9 The patient did not perform the activity before the current illness or injury 88 Not attempted due to Medical conditions or safety concerns Functional Abilities and Goals 3. Independent: Patient completed the activities by him/herself, with or without an assistive device, with no assistance from a helper. 2. Needed Some Help: Patient needed partial assistance from another person to complete activities. 1. Dependent: A helper completed the activities for the patient. 8. Unknown: 9. Not Applicable: ADL PLOF Comments Pt reported that he has been able to manage all of his basic self care needs and needs in the home. He manages medications and is able to pay bills but has help with his mail due to PTSD. He has a drivers license but hasn't driven in the past few years. He reported R foot drop for several weeks. Occupation: disabled OT Current Status Subjective Pt seen in room, up in bed, agreeable to OT. Pain reported 0/10 Appearance Alert, cooperative Mental Status/Objective Patient Orientation: Person, Place, Time, Situation Attachments: Central Line, Oxygen (Vapotherm), Telemetry, Other-See Comments ( LIFE VEST) Current Glasses/Contacts: Yes Hearing Aids: No Dentures/Partials: No (missing teeth) Hand Dominance: Right Upper Extremity ROM Grossly WFL bilat (pt reported old R shoulder injury) Upper Extremity Strength Grossly 4/5 bilat ADL-Treatment ADL-Current Pt was able to move from supine to sit EOB and transfer to recliner with CGA. Able to take off and don hospital gown but needed help with Life Vest. Able to wash and dry all parts except back with bath pack but able to tolerate standing for less than a minutes to wash bottom. Became SOA and required sit down rest break. Pt brushed teeth, washed face, combed hair with setup, done seated in recliner. Pt reported being able to feed himself and has been on solid food for only three days. Transfers to BS with CGA but needs help with hygiene, per pt report. Reported he can take slipper socks off but not put them back on. Limited in room due to tubing on Vapotherm. Functional [place] Measure 0=Not Assessed/NA 4=Minimal Assistance 1=Total Assistance 5=Supervision or Setup 2=Maximal Assistance 6=Modified [place] 3=Moderate Assistance 7=Complete [place] IRFPAI Quality Coding Scale 6 Independent with activity with or without an assistive device 5 Patient requires set up or clean up by helper. Patient completes activity by themselves 4 Supervision or touching assist (CGA). [place] provide cues , steadying assist 3 The helper provides less than half the effort to complete the activity 2 The helper provides more than half the effort to complete the activity 1 Dependent. The helper does all the effort to complete an activity 7 Patient refused to complete or attempt activity 9 The patient did not perform the activity before the current illness or injury 88 Not attempted due to Medical conditions or safety concerns Eating (FIM): 5 Grooming (FIM): 5 (setup, seated) Bathing (FIM): 4 (CGA for standing, limited act tolerance) Upper Body Dressing (FIM): 4 (min assist) Lower Body Dressing (FIM): 3 (socks off but not socks on. CGA when standing, limited act tolerance, FWW) Toileting (FIM): 3 (Help with hygiene, BSC) Toilet/Commode Transfer (FIM): 4 (CGA, BSC) Education OT Patient Education: Modified ADL techniques, Purpose of tx/functional activities, Rehab process, Transfer techniques Teaching Recipient: Patient Teaching Methods: Demonstration, Discussion Response to Teaching: Verbalize Understanding, Return Demonstration, Reinforcement Needed OT Fdc Goals Fdc Goals Time Frame: Aug 11, 2018 Eating (FIM): 7 Grooming(FIM): 6 Bathing(FIM): 6 Upper Body Dressing(FIM): 6 Lower Body Dressing(FIM): 6 Toileting(FIM): 6 Toilet/Commode Transfer(FIM): 6 Shower Transfer(FIM): 6 Additional Goals: 1-Demonstrate ADL Tasks, 2-Verbalize Understanding, 3- ImproveStrength/Michel 1=Demonstrate adherence to instructed precautions during ADL tasks. 2=Patient will verbalize/demonstrate understanding of assistive devices/ modifications for ADL. 3=Patient will improve strength/tolerance for activity to enable patient to perform ADL's. OT Education/Plan Problem List/Assessment Assessment: Decreased Activ Tolerance, Decreased UE Strength, Dependent Transfers, Impaired Self-Care Skills Pt would benefit from skilled Ot to increase his independence in basic self care to allow him to return to his apartment to live independently Discharge Recommendations Plan/Recommendations: Continue POC Therapy D/C Recommendations: Custodial (TCU/NH) (OT) Barriers to Progress decr activity tolerance Treatment Plan/Plan of Care Treatment,Training & Education: Yes Patient would benefit from OT for education, treatment and training to promote independence in ADL's, mobility, safety and/or upper extremity function for ADL' s. Plan of Care: ADL Retraining, Functional Mobility, UE Funct Exercise/Act, UE Neuromus Re-Ed/Coord, OTHER (energy conservation education and practice) Treatment Duration: Aug 11, 2018 Frequency: 5 times per week Estimated Hrs Per Day: .5 hour per day Agreement: Yes Rehab Potential: Good Time/GCodes Start Time: 14:24 Stop Time: 15:03 Total Time Billed (hr/min): 39 Billed Treatment Time visit, 15 minutes evaluation moderate intensity, 24 minutes ADL GLORIA GRANADOS OT Jul 21, 2018 15:13
[2018-07-21] MEDS: TAMSULOSIN 0.4 MG (FLOMAX) CAP PO SCH (18:03)
[2018-07-21] MEDS ORDERED: NITROGLYCERIN 0.4 MG SL TABS BTL 25'S SL ONE (19:45)
[2018-07-21] MEDS: ATORVASTATIN 80 MG (LIPITOR) TABLET PO SCH (22:10)
[2018-07-22] VITALS (12 sets, daily range): BP systolic 94–127; BP diastolic 55–75
[2018-07-22] MEDS: NYSTATIN ORAL SUSP 5 ML UDC PO SCH ×5 (00:33→23:29)
[2018-07-22] MEDS: RT-ALBUTEROL SULF 2.5 MG/3 ML PRE-MIX VIAL INH SCH ×6 (02:23→22:46)
[2018-07-22 05:56] LABS: BASOPHILS % (AUTO) 0 % (0-10); EOSINOPHILS # (AUTO) 0.1 10^3/uL (0.0-0.3); EOSINOPHILS % (AUTO) 1 % (0-10); HEMATOCRIT 22 % (40-54); LYMPHOCYTES # (AUTO) 1.1 X 10^3 (1.0-4.0); LYMPHOCYTES % (AUTO) 12 % (12-44); MEAN CORPUSCULAR HEMOGLOBIN 30 PG (25-34); MEAN CORPUSCULAR HGB CONC 30 G/DL (32-36); MEAN CORPUSCULAR VOLUME 101 FL (80-99); MEAN PLATELET VOLUME 9.2 FL (7.4-10.4); MONOCYTES # (AUTO) 0.4 X 10^3 (0.0-1.0); MONOCYTES % (AUTO) 5 % (0-12); NEUTROPHILS # (AUTO) 7.3 X 10^3 (1.8-7.8); NEUTROPHILS % (AUTO) 82 % (42-75); PLATELET COUNT 327 10^3/uL (130-400); RED BLOOD COUNT 2.22 10^6/uL (4.35-5.85); RED CELL DISTRIBUTION WIDTH 18.1 % (10.0-14.5); WHITE BLOOD COUNT 8.9 10^3/uL (4.3-11.0)
[2018-07-22 06:11] LABS: HEMOGLOBIN 6.7 G/DL (13.3-17.7)
[2018-07-22] MEDS: SUCRALFATE 1 GM (CARAFATE) TAB PO SCH ×4 (06:42→20:26)
[2018-07-22] MEDS: inSUlin ASPART (NovoLOG) 1 UNIT/0.01 ML (CHARGE PER UNIT) SC SCH ×4 (06:42→21:49)
[2018-07-22] MEDS: CATHETER FLUSH 10 ML SYR IV SCH ×3 (06:42→23:21)
[2018-07-22] MEDS: diphenhydrAMINE 25 MG TAB (BENADRYL) PO PRN (06:49)
[2018-07-22] MEDS: RT-ADVAIR HFA 115/21 MCG PER PUFF IH SCH ×2 (06:56→18:43)
[2018-07-22] MEDS: UMECLIDINIUM BROMIDE (INCRUSE ELLIPTA) 7'S IH SCH (06:56)
--- NOTE | 2018-07-22 07:17 | Pulmonary Progress Note ---
Subjective Time Seen by a Provider: 07:59 Subjective/Events-last exam C/o SOB and anxiety Sepsis Event Evaluation Height, Weight, BMI Height: 5'7.00" Weight: 140lbs. 7.0oz. [id number]; 24.3 BMI Method:Stated Focused Exam Time of Focused Exam: 07:40 Exam Exam Vital Signs Date Time Temp Pulse Resp B/P (MAP) Pulse Ox O2 Delivery O2 Flow Rate FiO2 07/22/18 06:56 92 High Flow N/C 2.00 07/22/18 04:15 98.5 97 18 94/60 (71) 94 High Flow N/C 2.00 07/22/18 02:28 95 High Flow N/C 2.00 07/22/18 01:00 93 07/22/18 00:10 97.4 96 20 96/62 (73) 99 High Flow N/C 2.00 07/21/18 22:23 96 High Flow N/C 2.00 07/21/18 21:00 High Flow N/C 3.00 07/21/18 20:12 97.8 86 18 91/54 (66) 97 High Flow N/C 1.00 07/21/18 19:55 90 07/21/18 18:30 95 Nasal Cannula 3.00 07/21/18 18:22 90 High Flow N/C 2.00 07/21/18 16:00 97.5 80 22 101/52 (68) 100 High Flow N/C 8.00 07/21/18 15:43 93 High Flow N/C 2.50 07/21/18 12:42 88 07/21/18 12:12 98.5 86 20 109/57 (74) 92 High Flow N/C 8.00 07/21/18 11:25 95 High Flow N/C 2.50 07/21/18 08:47 98.4 90 18 103/58 (73) 92 High Flow N/C 8.00 07/21/18 08:00 High Flow N/C 3.00 I & O 07/22/18 07:00 Intake Total 2045 ml Output Total 2425 ml Balance -380 ml Height & Weight Height: 5'7.00" Weight: 140lbs. 7.0oz. 63.690054wb; 24.3 BMI Method:Stated General Appearance: No Apparent Distress, WD/WN, Chronically ill, Thin HEENT: PERRL/EOMI; No Scleral Icterus (L), No Scleral Icterus (R) Neck: Non Tender Respiratory: Chest Non Tender, Lungs Clear, Normal Breath Sounds, No Accessory Muscle Use, No Respiratory Distress Cardiovascular: Regular Rate, Rhythm, No Edema, No Gallop, No JVD, No Murmur, Normal Peripheral Pulses Capillary Refill: Less Than 3 Seconds Gastrointestinal: non tender, soft, no organomegaly, no pulsatile mass Extremity: Non Tender, Swelling (Bilateral lower extremity improving) Neurologic/Psychiatric: Alert, Oriented x3, No Motor/Sensory Deficits, Normal Mood/Affect Skin: Normal Color, Warm/Dry Results Lab Laboratory Tests 07/22/18 05:26 Assessment/Plan Assessment/Plan Pulmonary edema with severe dilated cardiomyopathy EF 25% -Life vest -Cardiology following -Lasix SOB - improved Anemia -s/p transfustion Hx of COPD -SVNS, advair oxygen CKD Recent GIB with gastric ulcers Tobacco use Aortic insufficiency ASD, Pulmonary HTN COPD MALGORZATA SUMNER DO Jul 22, 2018 07:17
[2018-07-22] MEDS ORDERED: NS IV 500 ML 500 ML ONE (07:53)
[2018-07-22] MEDS: lisINopril 5 MG (PRINIVIL) TABLET PO SCH (08:22)
[2018-07-22] MEDS: PANTOPRAZOLE 40 MG (PROTONIX) TAB PO SCH ×2 (08:22→20:26)
[2018-07-22] MEDS: PARoxetine 20 MG (PAXIL) TAB PO SCH ×2 (08:23→20:26)
[2018-07-22] MEDS: TICAGRELOR 90 MG TABLET (BRILINTA) PO SCH ×2 (08:23→20:26)
[2018-07-22] MEDS: ASPIRIN E.C. 81 MG (ECOTRIN) TAB PO SCH (08:23)
[2018-07-22] MEDS: ALPRAZolam 0.5 MG (XANAX) TAB PO SCH ×2 (08:23→20:26)
[2018-07-22] MEDS: SENNA W/DOCUSATE (SENOKOT S) TABLET PO SCH ×2 (08:23→20:26)
[2018-07-22] MEDS: PATCH REMOVAL TP SCH (08:26)
[2018-07-22] MEDS: NICOTINE 21 MG (NICODERM) PATCH TD SCH (08:26)
[2018-07-22] MEDS: POLYETHYLENE GLYCOL 17 GM (MIRALAX) PACK PO SCH ×2 (08:30→20:25)
[2018-07-22] MEDS: MENTHOL/ZINC OXIDE (CALMOSEPTINE) 113 GM TUBE TOP SCH ×2 (08:32→20:27)
--- NOTE | 2018-07-22 10:51 | Occupational Ther Daily Note ---
OT Current Status-Daily Note Subjective Pt alert, lying in bed. Pt agrees to therapy. Pt c/o fatigue and other issues from last night, did not c/o pain. Pt receiving blood today. Mental Status/Objective Patient Orientation: Person, Place, Time, Situation Functional [place] Measure 0=Not Assessed/NA 4=Minimal Assistance 1=Total Assistance 5=Supervision or Setup 2=Maximal Assistance 6=Modified [place] 3=Moderate Assistance 7=Complete [place] Attachments: IV, Oxygen ADL-Treatment Pt declined taking shower or sponge bath. Stated that he was tired and nrsg would help him take a shower later today. Other Treatment Education for theraband exercises and yellow theraband left for in room use. Pt verbalized and demonstrated understanding of exercises. Completed shldr exercises to increase strength and activity tolerance. Recovery breaks between each set due to SOA. After therapy, pt lying in bed with call light/phone in reach. All needs met in room. Education OT Patient Education: Exercise program Teaching Recipient: Patient Teaching Methods: Demonstration, Discussion Response to Teaching: Verbalize Understanding, Return Demonstration, Reinforcement Needed OT Short Term Goals Short Term Goals 1=Demonstrate adherence to instructed precautions during ADL tasks. 2=Patient will verbalize/demonstrate understanding of assistive devices/ modifications for ADL. 3=Patient will improve strength/tolerance for activity to enable patient to perform ADL's. OT Vice President Supply Chain Goals Vice President [employer] Goals Time Frame: Aug 11, 2018 Eating (FIM): 7 Grooming(FIM): 6 Bathing(FIM): 6 Upper Body Dressing(FIM): 6 Lower Body Dressing(FIM): 6 Toileting(FIM): 6 Toilet/Commode Transfer(FIM): 6 Shower Transfer(FIM): 6 Additional Goals: 1-Demonstrate ADL Tasks, 2-Verbalize Understanding, 3- ImproveStrength/Michel 1=Demonstrate adherence to instructed precautions during ADL tasks. 2=Patient will verbalize/demonstrate understanding of assistive devices/ modifications for ADL. 3=Patient will improve strength/tolerance for activity to enable patient to perform ADL's. OT Education/Plan Problem List/Assessment Pt would benefit from skilled Ot to increase his independence in basic self care to allow him to return to his apartment to live independently Discharge Recommendations Plan/Recommendations: Continue POC Treatment Plan/Plan of Care Patient would benefit from OT for education, treatment and training to promote independence in ADL's, mobility, safety and/or upper extremity function for ADL' s. Plan of Care: ADL Retraining, Functional Mobility, UE Funct Exercise/Act, UE Neuromus Re-Ed/Coord, OTHER (energy conservation education and practice) Treatment Duration: Aug 11, 2018 Frequency: 5 times per week Estimated Hrs Per Day: .5 hour per day Agreement: Yes Rehab Potential: Good Time/GCodes Start Time: 10:30 Stop Time: 10:44 Total Time Billed (hr/min): 14 Billed Treatment Time 1 visit-EX 1 (14 min) CALIXTO DOMÍNGUEZ Jul 22, 2018 10:51
--- NOTE | 2018-07-22 11:14 | Physical Therapy Daily Note ---
PT Daily Note-Current Subjective "you are the 4th person in here today." Agrees to bed exercises. Declines out of bed as he reports he plans to shower later and doesn't want to be too tired. Reports he does his exercises with the help of his girlfriend each day. Reports apprehension about transfer to [facility], reports he feels it may exacerbate his PTSD. Mental Status Patient Orientation: Person, Place, Time, Situation Transfers Functional [place] Measure 0=Not Assessed/NA 4=Minimal Assistance 1=Total Assistance 5=Supervision or Setup 2=Maximal Assistance 6=Modified [place] 3=Moderate Assistance 7=Complete [place] IRFPAI Quality Coding Scale 6 Independent with activity with or without an assistive device 5 Patient requires set up or clean up by helper. Patient completes activity by themselves 4 Supervision or touching assist (CGA). [place] provide cues , steadying assist 3 The helper provides less than half the effort to complete the activity 2 The helper provides more than half the effort to complete the activity 1 Dependent. The helper does all the effort to complete an activity 7 Patient refused to complete or attempt activity 9 The patient did not perform the activity before the current illness or injury 88 Not attempted due to Medical conditions or safety concerns Weight Bearing Right Lower Extremity: Right Full Weight Bearing Left Lower Extremity: Left Full Weight Bearing Exercises Supine Ex: Ankle pumps, Quad Set, Glut sets, Heel Slides, Short Arc Quads, Hip abd/add Supine Reps: 15 (Education on performance of these exercises 2-3 x/day.) Assessment Pt demonstrates correct performance of exercises. Limited participation with out of bed activity. PT Short Term Goals Short Term Goals Time Frame: Jul 15, 2018 PT [employer] Builder Goals Skilled Nursing Goals PT Skilled Nursing Goals Time Frame: Jul 14, 2018 Transfers (B,C,W/C) (FIM): 6 Gait (FIM): 6 Gait distance (FIM): 3=150 ft Gait Level of Assist: 6 Gait Assistive Device: FWW PT Plan Problem List Problem List: Activity Tolerance, Functional Strength, Safety, Balance, Gait, Transfer Treatment/Plan Treatment Plan: Continue Plan of Care Treatment Plan: Bed Mobility, Education, Functional Activity Michel, Functional Strength, Gait, Safety, Therapeutic Exercise, Transfers Treatment Duration: Jul 24, 2018 Frequency: 6 times per week Estimated Hrs Per Day: .5 hour per day Patient and/or Family Agrees t: Yes Safety Risks/Education Patient Education: Safety Issues Teaching Recipient: Patient Teaching Methods: Discussion Response to Teaching: Reinforcement Needed Time/GCodes Time In: 1045 Time Out: 1101 Total Billed Treatment Time: 16 Total Billed Treatment visit EX 16 CALIXTO GANNON PT Jul 22, 2018 11:14
--- NOTE | 2018-07-22 12:25 | Cardiology Progress Note ---
Cardiology SOAP Progress Note Subjective: Chest pain last night. Anemic. Objective: I&O/Vital Signs 07/22/18 07/22/18 07/22/18 07/22/18 02:28 04:15 06:56 07:00 Temp 98.5 Pulse 97 92 Resp 18 B/P (MAP) 94/60 (71) Pulse Ox 95 94 92 O2 Delivery High Flow N/C High Flow N/C High Flow N/C O2 Flow Rate 2.00 2.00 2.00 07/22/18 07/22/18 07/22/18 07/22/18 08:00 08:20 08:35 08:45 Temp 99.4 99.2 98.8 Pulse 99 97 94 Resp 24 22 20 B/P (MAP) 96/58 (71) 102/62 97/57 Pulse Ox 99 97 97 O2 Delivery High Flow N/C Nasal Cannula Nasal Cannula High Flow N/C O2 Flow Rate 2.00 3.00 3.00 3.00 07/22/18 07/22/18 07/22/18 07/22/18 10:59 10:59 11:05 11:20 Temp 99.9 Pulse 95 90 97 Resp 18 20 20 B/P (MAP) 119/75 100/62 115/69 Pulse Ox 97 100 98 O2 Delivery Nasal Cannula High Flow N/C Nasal Cannula Nasal Cannula O2 Flow Rate 3.00 2.00 3.00 2.50 07/22/18 12:09 Temp 99.2 Pulse 116 Resp 18 B/P (MAP) 99/62 (74) Pulse Ox 92 O2 Delivery High Flow N/C O2 Flow Rate 2.00 07/22/18 00:00 Intake Total 1595 ml Output Total 2150 ml Balance -555 ml Weight (Pounds): 140 Weight (Ounces): 7.0 Weight (Calculated Kilograms): [id number] Constitutional: appears stated age, AAO x 3; No apparent distress; well- developed, well-nourished Respiratory: No accessory muscle use, No respiratory distress, No chest tender , No chest expansion is symmetric; chest is bilaterally symmetric; No lungs clear to percussion; crackles; No rhonchi, No rales, No stridor, No wheezing, No pleural rub, No other Cardiovascular: regular rate-rhythm; No irregularly irregular, No extra beats, No parasternal heave is noted, No JVD, No edema, No bradycardia, No tachycardia , No point of maximal impulse, No cardiac thrills are palpable; S1 and S2; No gallop/S3, No gallop/S4, No diastolic murmur, No systolic murmur, No friction rub, No click, No other Gastrointestional: No tender, No soft, No round, No distended, No pulsatile mass, No organomegaly, No guarding, No rebound, No tenderness, No hernia, No mass, No audible bowel sounds, No abnormal bowel sounds, No abdominal bruits, No spleenomegaly, No other Extremities: pedal edema; No clubbing, No cyanosis, No significant edema Neurologic/Psychiatric: no motor/sensory deficits, alert, normal mood/affect, oriented x 3, power is 5/5 both on sides Skin: No normal color, No warm/dry, No cyanosis, No cool, No diaphoresis, No damp, No ecchymosis, No jaundice, No mottled; pallor; No rash, No tattoos/ piercings, No ulcerations, No rash on exposed areas, No ulcerations on exposed areas, No other Results/Procedures: Labs Laboratory Tests 07/21/18 15:51: Glucometer 316H 07/21/18 20:44: Glucometer 273H 07/22/18 05:12: Glucometer 250H 07/22/18 05:26: White Blood Count 8.9, Red Blood Count 2.22L, Hemoglobin 6.7*L, Hematocrit 22L, Mean Corpuscular Volume 101H, Mean Corpuscular Hemoglobin 30, Mean Corpuscular Hemoglobin Concent 30L, Red Cell Distribution Width 18.1H, Platelet Count 327, Mean Platelet Volume 9.2, Neutrophils (%) (Auto) 82H, Lymphocytes (%) (Auto) 12 , Monocytes (%) (Auto) 5, Eosinophils (%) (Auto) 1, Basophils (%) (Auto) 0, Neutrophils # (Auto) 7.3, Lymphocytes # (Auto) 1.1, Monocytes # (Auto) 0.4, Eosinophils # (Auto) 0.1, Basophils # (Auto) 0.0, Troponin I < 0.30 07/22/18 10:44: Glucometer 252H Microbiology 07/07/18 Blood Culture - Final, Complete No growth 07/16/18 MRSA Screen - Final, Complete MRSA not isolated 07/06/18 Urine Culture - Final, Complete NO GROWTH A/P: Assessment/Dx: Acute respiratory failure, pulmonary edema, improved. Recent GI bleeding, Severe Peptic ulcer disease, Severe dilated cardiomyopathy, Smoking, HTN, DM, Hyperlipidemia, Hypokalemia, CKD, Leg discomfort, Aortic insufficiency, ASD, Acute diastolic CHF, Pulmonary HTN, COPD Plan: Acute respiratory failure, pulmonary edema, chest x-ray shows pulmonary edema, increased BNP. Continue IV Lasix. Significant improvement. Recent GI bleeding, on PPI and sucrafate. received PRBCs this morning. Awaiting general surgery evaluation. Hemoglobin 6. Severe Peptic ulcer disease, Severe dilated cardiomyopathy, LVEF on Echo 25% with anterior/apical hypokinesis. very likely due to CAD. 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 Collaterals from the left circumflex artery. Moderate left circumflex artery stenosis. Severe LAD stenosis treated successfully with drug-eluting stents. LVEDP 28 mmHg. Lifevest for primary prevention of sudden cardiac , dilated cardiomyopathy. Patient is wearing a LifeVest. Smoking - smoking cessation was strongly recommended. HTN, lisinopril and BB. DM, continue metformin for now. Hyperlipidemia, statin therapy. Hypokalemia, CKD; Diabetic nephropathy likely. Resting Leg discomfort, lifestyle limiting claudication, bilateral significant PAD. Likely peripheral angiography in the near future but can be done as an outpatient. Aortic insufficiency, follow clinically. 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 Acute diastolic CHF, pseudonormal diastolic dysfunction. caution with IV fluids. Pulmonary HTN, likely secondary to COPD. COPD, defer to primary team. Thank you for your consultation. Please call me if you have any questions. Kusum Chandra MD, FACP, FACC, FSCAI, FHRS, CCDS Interventional Cardiology Cardiac Electrophysiology Vascular Medicine and Endovascular Interventions Focused Exam Time of Focused Exam: 07:40 Jose CHANDRA MD Jul 22, 2018 12:25 pm
[2018-07-22] MEDS: FUROSEMIDE 40 MG/4 ML INJ (LASIX) IVP SCH (15:00)
--- NOTE | 2018-07-22 16:46 | Progress Note ---
Subjective Date Seen by a Provider: Jul 22, 2018 Time Seen by a Provider: 09:40 Subjective/Events-last exam Patient had drop in hemoglobin. Being transfused packed red blood cells. Some chest pain last night. No blood per rectum. Denies any nausea vomiting fever sweats chills or shortness of breath at this time. Focused Exam Time of Focused Exam: 07:40 Objective Exam Vital Signs Date Time Temp Pulse Resp B/P (MAP) Pulse Ox O2 Delivery O2 Flow Rate FiO2 07/22/18 16:13 97.8 86 18 127/58 (81) 95 High Flow N/C 2.00 07/22/18 15:55 98 High Flow N/C 4.00 07/22/18 13:59 99.2 92 20 104/68 98 Nasal Cannula 2.50 07/22/18 13:00 88 07/22/18 12:09 99.2 116 18 99/62 (74) 92 High Flow N/C 2.00 07/22/18 11:20 97 20 115/69 98 Nasal Cannula 2.50 07/22/18 11:05 90 20 100/62 100 Nasal Cannula 3.00 07/22/18 10:59 97 High Flow N/C 2.00 07/22/18 10:59 99.9 95 18 119/75 Nasal Cannula 3.00 07/22/18 08:45 High Flow N/C 3.00 07/22/18 08:35 98.8 94 20 97/57 97 Nasal Cannula 3.00 07/22/18 08:20 99.2 97 22 102/62 97 Nasal Cannula 3.00 07/22/18 08:00 99.4 99 24 96/58 (71) 99 High Flow N/C 2.00 07/22/18 07:00 92 07/22/18 06:56 92 High Flow N/C 2.00 07/22/18 04:15 98.5 97 18 94/60 (71) 94 High Flow N/C 2.00 07/22/18 02:28 95 High Flow N/C 2.00 07/22/18 01:00 93 07/22/18 00:10 97.4 96 20 96/62 (73) 99 High Flow N/C 2.00 07/21/18 22:23 96 High Flow N/C 2.00 07/21/18 21:00 High Flow N/C 3.00 07/21/18 20:12 97.8 86 18 91/54 (66) 97 High Flow N/C 1.00 07/21/18 19:55 90 07/21/18 18:30 95 Nasal Cannula 3.00 07/21/18 18:22 90 High Flow N/C 2.00 I & O 07/22/18 07:00 Intake Total 2045 ml Output Total 2425 ml Balance -380 ml Capillary Refill : Less Than 3 SecondsLess Than 3 Seconds General Appearance: No Apparent Distress, WD/WN, Chronically ill HEENT: PERRL/EOMI; No Scleral Icterus (L), No Scleral Icterus (R) Neck: Non Tender Respiratory: Chest Non Tender, Lungs Clear, Normal Breath Sounds, No Accessory Muscle Use, No Respiratory Distress Cardiovascular: Regular Rate, Rhythm, Normal Peripheral Pulses Gastrointestinal: non tender, soft, no organomegaly, no pulsatile mass Extremity: Non Tender, Swelling (Bilateral lower minimal edema) Neurologic/Psychiatric: Alert, Oriented x3, No Motor/Sensory Deficits, Normal Mood/Affect Skin: Normal Color, Warm/Dry Results Lab Laboratory Tests 07/21/18 20:44: Glucometer 273H 07/22/18 05:12: Glucometer 250H 07/22/18 05:26: White Blood Count 8.9, Red Blood Count 2.22L, Hemoglobin 6.7*L, Hematocrit 22L, Mean Corpuscular Volume 101H, Mean Corpuscular Hemoglobin 30, Mean Corpuscular Hemoglobin Concent 30L, Red Cell Distribution Width 18.1H, Platelet Count 327, Mean Platelet Volume 9.2, Neutrophils (%) (Auto) 82H, Lymphocytes (%) (Auto) 12 , Monocytes (%) (Auto) 5, Eosinophils (%) (Auto) 1, Basophils (%) (Auto) 0, Neutrophils # (Auto) 7.3, Lymphocytes # (Auto) 1.1, Monocytes # (Auto) 0.4, Eosinophils # (Auto) 0.1, Basophils # (Auto) 0.0, Troponin I < 0.30 07/22/18 10:44: Glucometer 252H 07/22/18 15:58: Hemoglobin 9.3#L 07/22/18 16:11: Glucometer 217H Microbiology 07/07/18 Blood Culture - Final, Complete No growth 11/23/18 MRSA Screen - Final, Complete MRSA not isolated 07/06/18 Urine Culture - Final, Complete NO GROWTH Assessment/Plan Assessment/Plan Assessment/Plan Anemia with GI bleed most likely upper due to duodenal ulcers and hx dark tarry stools Posttraumatic stress disorder Duodenal ulcers - no signs of active bleed seen during EGD Status post PCI to LAD Pulmonary edema Patient on Protonix, Carafate, tolerating diet. following hgb, continue to follow and will transfuse as needed pulmonary edema - breathing easier Medical management being transfused at this time. will change to clear liquids. if continues to drop will plan egd to re-evaluate. Clinical Quality Measures DVT/VTE Risk/Contraindication: Risk Factor Score Per Nursin RFS Level Per Nursing on Admit: 4+=Very High JAVIER MARTINEZ DO Jul 22, 2018 16:46
[2018-07-22] MEDS: TAMSULOSIN 0.4 MG (FLOMAX) CAP PO SCH (17:37)
--- NOTE | 2018-07-22 17:42 | Progress Note (SOAP) ---
Subjective Subjective/Events-last exam Drop in Hb to 6.7. Denies blood in stool or abdominal pain Review of Systems Date Seen by Provider: Jul 22, 2018 Time Seen by Provider: 07:30 Focused Exam Time of Focused Exam: 07:40 Objective Exam Last Set of Vital Signs Vital Signs Date Time Temp Pulse Resp B/P (MAP) Pulse Ox O2 Delivery O2 Flow Rate FiO2 07/22/18 16:13 97.8 86 18 127/58 (81) 95 High Flow N/C 2.00 07/20/18 10:54 35 Capillary Refill : Less Than 3 SecondsLess Than 3 Seconds I&O Intake and Output 07/22/18 00:00 Intake Total 1895 ml Output Total 2850 ml Balance -955 ml Intake Oral 1895 ml Output Urine Total 2850 ml # Bowel Movements 1 General: Alert, Oriented X3, Cooperative Psych/Mental Status: Mood NL Results/Procedures Lab Laboratory Tests 07/21/18 20:44: Glucometer 273H 07/22/18 05:12: Glucometer 250H 07/22/18 05:26: White Blood Count 8.9, Red Blood Count 2.22L, Hemoglobin 6.7*L, Hematocrit 22L, Mean Corpuscular Volume 101H, Mean Corpuscular Hemoglobin 30, Mean Corpuscular Hemoglobin Concent 30L, Red Cell Distribution Width 18.1H, Platelet Count 327, Mean Platelet Volume 9.2, Neutrophils (%) (Auto) 82H, Lymphocytes (%) (Auto) 12 , Monocytes (%) (Auto) 5, Eosinophils (%) (Auto) 1, Basophils (%) (Auto) 0, Neutrophils # (Auto) 7.3, Lymphocytes # (Auto) 1.1, Monocytes # (Auto) 0.4, Eosinophils # (Auto) 0.1, Basophils # (Auto) 0.0, Troponin I < 0.30 07/22/18 10:44: Glucometer 252H 07/22/18 15:58: Hemoglobin 9.3#L 07/22/18 16:11: Glucometer 217H Microbiology 07/07/18 Blood Culture - Final, Complete No growth 07/16/18 MRSA Screen - Final, Complete MRSA not isolated 07/06/18 Urine Culture - Final, Complete NO GROWTH Radiology Assessment/Plan Assessment/Plan Assessment & Plan 07/21 - Medically stable but continued weakness and limited ambulation. Will do OT eval. Consult for SNU. Anticipate DC to [facility] by Thursday. Plan for PVD intervention by Dr. Chandra after discharge, possibly next week. 07/22 - Hb down from 8 to 6.7 - transfuse 2U prbc, will recheck H/H. Per Dr. Acharya if Hb continues to drop will do EGD. Plan to hold transfer to SNU until Thursday if patient stabilizes. (1) Acute and chronic respiratory failure with hypoxia Status: Acute Assessment & Plan: 07/17: Arely consulted today, encourage patient to continue with Aerobike at least every hr, encouraged getting to edge of bed, will titrate as tolerated 07/18: Continue lasix for pulmonary edema, will titrate as tolerated 07/21: improved; down to 2.5L HF NC (2) Pulmonary edema cardiac cause Status: Acute Assessment & Plan: 07/17: Dr Chandra added lasix today, will diuresis and monitor renal function 07/21: improved (3) GI bleed Status: Resolved Assessment & Plan: Pt required another unit of PRBCs last night; Hgb stable for now. EGD with Patrizia today. Consider colonoscopy outpatient, should EGD come back negative. 07/09- EGD yesterday with large ulcers, not actively bleeding. Added sucralfate to pantoprazole but hemoglobin below 6 again this am. 2 units PRBCs, f/u after. 07/10- No vomiting, Hgb stable since transfusion, if continues to be stable would be stable for cath Thursday, Will advance diet today per surgery recommendations 07/11- Hgb stable, Will get retic count today, Start Fe infusions 07/12- Hgb stable today, will discuss case with surgery to see how long they would like to wait for cath, IV iron 07/13: Hgb Stable, continue IV iron 07/14: Hgb down today, discussed with Dr Acharya and will continue to monitor, Continue IV iron 07/15: Hgb up today, continue IV iron replacement 07/16: Hgb stable, continue IV Iron, cath today 07/17: Stable Qualifiers: Qualified Codes: K92.2 - Gastrointestinal hemorrhage, unspecified (4) Urinary retention due to benign prostatic hyperplasia Status: Acute Assessment & Plan: Catheter placed 07/07 due to significant retention. 07/08 start Flomax, may need to d/c with liriano depending on course. 07/15: D/c liriano today (5) Acute systolic CHF (congestive heart failure) Status: Acute Assessment & Plan: 07/10: Echo with EF 25%, plan for cath when anemia is stable 07/11: Discussed case with cardiology, waiting to get cath procedure done 07/13: Cath to be done Thursday or Sunday 07/15: Plan for cath tomorrow 07/16: Cath today with stents placed 07/17: Dr Chandra has ordered lifevest for patient 07/21 : Lifevest in place; pt has had some discharges overnight, being managed by Dr. Chandra (6) Debility Assessment & Plan: PT/OT, Will need rehab vs SNF following hospitalization 07/18: Will consult Rehab 07/21: SW working on placement for [facility]; consult in to [facility] (7) Hyperglycemia Status: Acute Assessment & Plan: sliding scale insulin, diabetic diet when taking PO 07/10: A1c pending (8) Lower extremity edema Status: Acute Assessment & Plan: Venous insufficiency/immobility versus related to his kidney function. Consider echocardiogram pending clinical course. 07/09- complaining of cough as well, will obtain echocardiogram 07/10- Abnormal echo, EF 25%, cardiology following 07/12: Discussed the importance of activity, getting to edge of bed, leg exercises and elevation of feet 07/14: Patient up in chair today (9) Severe anemia Status: Acute Assessment & Plan: Pt required another unit of PRBCs last night. EGD with Patrizia today. Consider colonscopy outpatient, should EGD come back negative. 07/09- hgb below 6 this am, 2 units prbc today, repeat hemoglobin after. (10) Hypokalemia Status: Resolved Assessment & Plan: Replace and recheck. (11) Lactic acidosis Status: Resolved Assessment & Plan: Unclear etiology with no source of infection. Improved with IVF. Denies abdominal pain to suggest ischemia. (12) Diabetes mellitus, type 2 Status: Chronic Assessment & Plan: Diabetic diet when taking oral. Sliding scale insulin. 07/21: A1c 7.9%; BS running 200-300, will add Glyburide 2.5 mg daily Qualifiers: (13) Right foot drop Status: Acute Assessment & Plan: MRI showed only lumbar spondylosis. No clear explanation for his foot drop. 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 (14) Poor appetite Status: Acute Assessment & Plan: Denies pain, concern for underlying serious condition given his anemia and weakness. Endoscopy recommended in vs outpatient depending on course. 07/08 EGD today 07/09 EGD yesterday with ulcers, treating with pantoprazole and sucralfate, biopsies pending (15) Leg weakness, bilateral Status: Acute Assessment & Plan: PT. (16) BPH (benign prostatic hyperplasia) Status: Chronic Assessment & Plan: Previously on medication, he stopped due to side effects. Qualifiers: (17) PTSD (post-traumatic stress disorder) Status: Chronic Assessment & Plan: Resume home medications. (18) COPD (chronic obstructive pulmonary disease) Status: Chronic Assessment & Plan: Resume home inhalers (19) DVT prophylaxis Status: Acute Assessment & Plan: No pharmacologic ppx with active bleed. SCDs. Clinical Quality Measures DVT/VTE Risk/Contraindication: Risk Factor Score Per Nursin RFS Level Per Nursing on Admit: 4+=Very High ALBERT ABEL DO Jul 22, 2018 17:42
[2018-07-22] MEDS: ATORVASTATIN 80 MG (LIPITOR) TABLET PO SCH (20:26)
[2018-07-23] VITALS (11 sets, daily range): BP systolic 80–106; BP diastolic 50–62
[2018-07-23] MEDS: RT-ALBUTEROL SULF 2.5 MG/3 ML PRE-MIX VIAL INH SCH ×6 (02:14→22:00)
[2018-07-23] MEDS: CATHETER FLUSH 10 ML SYR IV SCH ×3 (05:47→21:10)
[2018-07-23 06:04] LABS: BASOPHILS % (AUTO) 0 % (0-10); EOSINOPHILS # (AUTO) 0.1 10^3/uL (0.0-0.3); EOSINOPHILS % (AUTO) 1 % (0-10); HEMATOCRIT 24 % (40-54); HEMOGLOBIN 7.8 G/DL (13.3-17.7); LYMPHOCYTES # (AUTO) 0.9 X 10^3 (1.0-4.0); LYMPHOCYTES % (AUTO) 10 % (12-44); MEAN CORPUSCULAR HEMOGLOBIN 31 PG (25-34); MEAN CORPUSCULAR HGB CONC 32 G/DL (32-36); MEAN CORPUSCULAR VOLUME 96 FL (80-99); MEAN PLATELET VOLUME 9.2 FL (7.4-10.4); MONOCYTES # (AUTO) 0.6 X 10^3 (0.0-1.0); MONOCYTES % (AUTO) 6 % (0-12); NEUTROPHILS # (AUTO) 7.5 X 10^3 (1.8-7.8); NEUTROPHILS % (AUTO) 84 % (42-75); PLATELET COUNT 285 10^3/uL (130-400); RED BLOOD COUNT 2.55 10^6/uL (4.35-5.85); RED CELL DISTRIBUTION WIDTH 18.5 % (10.0-14.5)
[2018-07-23] MEDS: inSUlin ASPART (NovoLOG) 1 UNIT/0.01 ML (CHARGE PER UNIT) SC SCH ×4 (06:34→21:09)
[2018-07-23] MEDS: NYSTATIN ORAL SUSP 5 ML UDC PO SCH ×4 (06:34→23:24)
[2018-07-23] MEDS: SUCRALFATE 1 GM (CARAFATE) TAB PO SCH ×4 (06:34→21:12)
[2018-07-23] MEDS: UMECLIDINIUM BROMIDE (INCRUSE ELLIPTA) 7'S IH SCH (07:30)
[2018-07-23] MEDS: RT-ADVAIR HFA 115/21 MCG PER PUFF IH SCH ×2 (07:30→20:19)
[2018-07-23] MEDS ORDERED: NS IV 500 ML 500 ML ONE (07:34)
[2018-07-23] MEDS: PARoxetine 20 MG (PAXIL) TAB PO SCH ×2 (07:48→21:09)
[2018-07-23] MEDS: ALPRAZolam 0.5 MG (XANAX) TAB PO SCH ×2 (07:48→21:09)
--- NOTE | 2018-07-23 08:06 | Pulmonary Progress Note ---
Subjective Time Seen by a Provider: 08:02 Subjective/Events-last exam Pt is anxious however states SOB is stable. Sepsis Event Evaluation Height, Weight, BMI Height: 5'7.00" Weight: 142lbs. 7.0oz. 64.629203me; 24.3 BMI Method:Stated Focused Exam Time of Focused Exam: 07:40 Exam Exam Vital Signs Date Time Temp Pulse Resp B/P (MAP) Pulse Ox O2 Delivery O2 Flow Rate FiO2 07/23/18 07:29 94 Nasal Cannula 2.00 07/23/18 04:17 98.3 87 16 98/51 (67) 95 High Flow N/C 2.00 07/23/18 02:14 92 High Flow N/C 2.00 07/23/18 01:00 99 07/23/18 00:12 99.6 94 16 106/60 (75) 93 High Flow N/C 2.00 07/22/18 22:46 88 High Flow N/C 2.00 07/22/18 21:00 High Flow N/C 2.50 07/22/18 20:18 98.4 93 20 110/55 (73) 94 High Flow N/C 2.00 07/22/18 19:00 98 07/22/18 18:43 91 High Flow N/C 2.00 07/22/18 16:13 97.8 86 18 127/58 (81) 95 High Flow N/C 2.00 07/22/18 15:55 98 High Flow N/C 4.00 07/22/18 13:59 99.2 92 20 104/68 98 Nasal Cannula 2.50 07/22/18 13:00 88 07/22/18 12:09 99.2 116 18 99/62 (74) 92 High Flow N/C 2.00 07/22/18 11:20 97 20 115/69 98 Nasal Cannula 2.50 07/22/18 11:05 90 20 100/62 100 Nasal Cannula 3.00 07/22/18 10:59 97 High Flow N/C 2.00 07/22/18 10:59 99.9 95 18 119/75 Nasal Cannula 3.00 07/22/18 08:45 High Flow N/C 3.00 07/22/18 08:35 98.8 94 20 97/57 97 Nasal Cannula 3.00 07/22/18 08:20 99.2 97 22 102/62 97 Nasal Cannula 3.00 I & O 07/23/18 07:00 Intake Total 1990 ml Output Total 1650 ml Balance 340 ml Height & Weight Height: 5'7.00" Weight: 142lbs. 7.0oz. 64.906464vn; 24.3 BMI Method:Stated General Appearance: No Apparent Distress, WD/WN, Chronically ill, Thin HEENT: PERRL/EOMI; No Scleral Icterus (L), No Scleral Icterus (R) Neck: Non Tender Respiratory: Chest Non Tender, Lungs Clear, Normal Breath Sounds, No Accessory Muscle Use, No Respiratory Distress Cardiovascular: Regular Rate, Rhythm, No Edema, No Gallop, No JVD, No Murmur, Normal Peripheral Pulses Capillary Refill: Less Than 3 Seconds Gastrointestinal: non tender, soft, no organomegaly, no pulsatile mass Extremity: Non Tender, Swelling (Bilateral lower extremity improving) Neurologic/Psychiatric: Alert, Oriented x3, No Motor/Sensory Deficits, Normal Mood/Affect Skin: Normal Color, Warm/Dry Results Lab Laboratory Tests 07/22/18 05:26 07/22/18 15:58 07/23/18 05:33 Assessment/Plan Assessment/Plan Pulmonary edema with severe dilated cardiomyopathy EF 25% -Life vest -Cardiology following -Lasix SOB - improved Anemia -PRBC already ordered Hx of COPD -SVNS, advair oxygen CKD Recent GIB with gastric ulcers Tobacco use Aortic insufficiency ASD, Pulmonary HTN COPD MALGROZATA SUMNER DO Jul 23, 2018 08:06
[2018-07-23] MEDS: ASPIRIN E.C. 81 MG (ECOTRIN) TAB PO SCH (09:00)
[2018-07-23] MEDS: TICAGRELOR 90 MG TABLET (BRILINTA) PO SCH ×2 (09:00→21:12)
[2018-07-23] MEDS: MENTHOL/ZINC OXIDE (CALMOSEPTINE) 113 GM TUBE TOP SCH ×2 (09:00→21:09)
[2018-07-23] MEDS: POLYETHYLENE GLYCOL 17 GM (MIRALAX) PACK PO SCH ×2 (09:00→21:09)
[2018-07-23] MEDS: lisINopril 5 MG (PRINIVIL) TABLET PO SCH (09:00)
--- NOTE | 2018-07-23 09:19 | Cardiology Progress Note ---
Cardiology SOAP Progress Note Subjective: Worsening hemoglobin/hematocrit requiring further transfusions. Objective: I&O/Vital Signs 07/22/18 07/23/18 07/23/18 07/23/18 22:46 00:12 01:00 02:14 Temp 99.6 Pulse 94 99 Resp 16 B/P (MAP) 106/60 (75) Pulse Ox 88 93 92 O2 Delivery High Flow N/C High Flow N/C High Flow N/C O2 Flow Rate 2.00 2.00 2.00 07/23/18 07/23/18 07/23/18 07/23/18 04:17 07:00 07:29 08:15 Temp 98.3 99.0 Pulse 87 85 93 Resp 16 18 B/P (MAP) 98/51 (67) 80/50 Pulse Ox 95 94 97 O2 Delivery High Flow N/C Nasal Cannula Nasal Cannula O2 Flow Rate 2.00 2.00 2.00 07/23/18 08:30 Temp 99.2 Pulse 91 Resp 18 B/P (MAP) 94/61 Pulse Ox 91 O2 Delivery Nasal Cannula O2 Flow Rate 2.00 07/23/18 00:00 Intake Total 1740 ml Output Total 1050 ml Balance 690 ml Weight (Pounds): 142 Weight (Ounces): 7.0 Weight (Calculated Kilograms): [id number] Constitutional: appears stated age, AAO x 3; No apparent distress; well- developed, well-nourished Respiratory: No accessory muscle use, No respiratory distress, No chest tender , No chest expansion is symmetric; chest is bilaterally symmetric; No lungs clear to percussion; crackles; No rhonchi, No rales, No stridor, No wheezing, No pleural rub, No other Cardiovascular: regular rate-rhythm; No irregularly irregular, No extra beats, No parasternal heave is noted, No JVD, No edema, No bradycardia, No tachycardia , No point of maximal impulse, No cardiac thrills are palpable; S1 and S2; No gallop/S3, No gallop/S4, No diastolic murmur, No systolic murmur, No friction rub, No click, No other Gastrointestional: No tender, No soft, No round, No distended, No pulsatile mass, No organomegaly, No guarding, No rebound, No tenderness, No hernia, No mass, No audible bowel sounds, No abnormal bowel sounds, No abdominal bruits, No spleenomegaly, No other Extremities: pedal edema; No clubbing, No cyanosis, No significant edema Neurologic/Psychiatric: no motor/sensory deficits, alert, normal mood/affect, oriented x 3, power is 5/5 both on sides Skin: No normal color, No warm/dry, No cyanosis, No cool, No diaphoresis, No damp, No ecchymosis, No jaundice, No mottled; pallor; No rash, No tattoos/ piercings, No ulcerations, No rash on exposed areas, No ulcerations on exposed areas, No other Results/Procedures: Labs Laboratory Tests 07/22/18 10:44: Glucometer 252H 07/22/18 15:58: Hemoglobin 9.3#L 07/22/18 16:11: Glucometer 217H 07/22/18 21:04: Glucometer 244H 07/23/18 05:17: Glucometer 274H 07/23/18 05:33: White Blood Count 9.0, Red Blood Count 2.55L, Hemoglobin 7.8L, Hematocrit 24L, Mean Corpuscular Volume 96, Mean Corpuscular Hemoglobin 31, Mean Corpuscular Hemoglobin Concent 32, Red Cell Distribution Width 18.5H, Platelet Count 285, Mean Platelet Volume 9.2, Neutrophils (%) (Auto) 84H, Lymphocytes (%) (Auto) 10L , Monocytes (%) (Auto) 6, Eosinophils (%) (Auto) 1, Basophils (%) (Auto) 0, Neutrophils # (Auto) 7.5, Lymphocytes # (Auto) 0.9L, Monocytes # (Auto) 0.6, Eosinophils # (Auto) 0.1, Basophils # (Auto) 0.0 Microbiology 07/07/18 Blood Culture - Final, Complete No growth 07/16/18 MRSA Screen - Final, Complete MRSA not isolated 07/06/18 Urine Culture - Final, Complete NO GROWTH A/P: Assessment/Dx: Acute respiratory failure, pulmonary edema, improved. Worsening anemia, Recent GI bleeding, Severe Peptic ulcer disease, Severe dilated cardiomyopathy, Smoking, HTN, DM, Hyperlipidemia, Hypokalemia, CKD, Leg discomfort, Aortic insufficiency, ASD, Acute diastolic CHF, Pulmonary HTN, COPD Plan: Acute respiratory failure, pulmonary edema, chest x-ray shows pulmonary edema, increased BNP. Continue IV Lasix. Recent GI bleeding, on PPI and sucrafate. received PRBCs this morning. Hemoglobin dropped again after transfusion overnight. Likely GI bleeding. Dr. Acharya following. Likely EGD today. Severe Peptic ulcer disease, Severe dilated cardiomyopathy, LVEF on Echo 25% with anterior/apical hypokinesis. very likely due to CAD. 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 Collaterals from the left circumflex artery. Moderate left circumflex artery stenosis. Severe LAD stenosis treated successfully with drug-eluting stents. LVEDP 28 mmHg. Lifevest for primary prevention of sudden cardiac , dilated cardiomyopathy. Patient is wearing a LifeVest. Smoking - smoking cessation was strongly recommended. HTN, lisinopril and BB. DM, continue metformin for now. Hyperlipidemia, statin therapy. Hypokalemia, CKD; Diabetic nephropathy likely. Resting Leg discomfort, lifestyle limiting claudication, bilateral significant PAD. Aortic insufficiency, follow clinically. 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 Acute diastolic CHF, pseudonormal diastolic dysfunction. caution with IV fluids. Pulmonary HTN, likely secondary to COPD. COPD, defer to primary team. Thank you for your consultation. Please call me if you have any questions. Kusum Chandra MD, FACP, FACC, FSCAI, FHRS, CCDS Interventional Cardiology Cardiac Electrophysiology Vascular Medicine and Endovascular Interventions Focused Exam Time of Focused Exam: 07:40 Jose CHANDRA MD Jul 23, 2018 9:19 am
--- NOTE | 2018-07-23 10:19 | Occ Therapy Progress Note ---
Therapy Progress Note Unable to see pt at this time. Pt declines therapy. Pt is receiving blood and continues to have low hemoglobin. Pt to have procedure today. Discussed with nrsg. 1 visit CALIXTO DOMÍNGUEZ Jul 23, 2018 10:19
[2018-07-23] MEDS: FUROSEMIDE 40 MG/4 ML INJ (LASIX) IVP SCH (10:25)
[2018-07-23] MEDS: diphenhydrAMINE 25 MG TAB (BENADRYL) PO PRN ×2 (11:39→18:27)
--- NOTE | 2018-07-23 11:58 | Progress Note ---
Subjective Date Seen by a Provider: Jul 23, 2018 Time Seen by a Provider: 07:30 Subjective/Events-last exam patient with drop in hgb. has received prbc yesterday. no black or bloody bowel movements. denies any new complaints. denies n/v fever sweats chills or chest pain at this time. Focused Exam Time of Focused Exam: 07:40 Objective Exam Vital Signs Date Time Temp Pulse Resp B/P (MAP) Pulse Ox O2 Delivery O2 Flow Rate FiO2 07/23/18 11:10 98.0 88 16 105/58 95 Nasal Cannula 3.00 07/23/18 10:54 98.3 90 18 85/50 96 Nasal Cannula 3.00 07/23/18 10:27 88 Nasal Cannula 2.00 07/23/18 08:30 99.2 91 18 94/61 91 Nasal Cannula 2.00 07/23/18 08:15 99.0 93 18 80/50 97 Nasal Cannula 2.00 07/23/18 07:29 94 Nasal Cannula 2.00 07/23/18 07:00 85 07/23/18 04:17 98.3 87 16 98/51 (67) 95 High Flow N/C 2.00 07/23/18 02:14 92 High Flow N/C 2.00 07/23/18 01:00 99 07/23/18 00:12 99.6 94 16 106/60 (75) 93 High Flow N/C 2.00 07/22/18 22:46 88 High Flow N/C 2.00 07/22/18 21:00 High Flow N/C 2.50 07/22/18 20:18 98.4 93 20 110/55 (73) 94 High Flow N/C 2.00 07/22/18 19:00 98 07/22/18 18:43 91 High Flow N/C 2.00 07/22/18 16:13 97.8 86 18 127/58 (81) 95 High Flow N/C 2.00 07/22/18 15:55 98 High Flow N/C 4.00 07/22/18 13:59 99.2 92 20 104/68 98 Nasal Cannula 2.50 07/22/18 13:00 88 07/22/18 12:09 99.2 116 18 99/62 (74) 92 High Flow N/C 2.00 I & O 07/23/18 07:00 Intake Total 1990 ml Output Total 1650 ml Balance 340 ml Capillary Refill : Less Than 3 SecondsLess Than 3 Seconds General Appearance: No Apparent Distress, WD/WN, Chronically ill, Thin HEENT: PERRL/EOMI; No Scleral Icterus (L), No Scleral Icterus (R) Neck: Non Tender Respiratory: Chest Non Tender, No Accessory Muscle Use, No Respiratory Distress Cardiovascular: Regular Rate, Rhythm, Normal Peripheral Pulses Gastrointestinal: non tender, soft, no organomegaly, no pulsatile mass Extremity: Non Tender, Swelling (Bilateral lower extremity minimal) Neurologic/Psychiatric: Alert, Oriented x3, No Motor/Sensory Deficits, Normal Mood/Affect Skin: Normal Color, Warm/Dry Results Lab Laboratory Tests 07/22/18 15:58: Hemoglobin 9.3#L 07/22/18 16:11: Glucometer 217H 07/22/18 21:04: Glucometer 244H 07/23/18 05:17: Glucometer 274H 07/23/18 05:33: White Blood Count 9.0, Red Blood Count 2.55L, Hemoglobin 7.8L, Hematocrit 24L, Mean Corpuscular Volume 96, Mean Corpuscular Hemoglobin 31, Mean Corpuscular Hemoglobin Concent 32, Red Cell Distribution Width 18.5H, Platelet Count 285, Mean Platelet Volume 9.2, Neutrophils (%) (Auto) 84H, Lymphocytes (%) (Auto) 10L , Monocytes (%) (Auto) 6, Eosinophils (%) (Auto) 1, Basophils (%) (Auto) 0, Neutrophils # (Auto) 7.5, Lymphocytes # (Auto) 0.9L, Monocytes # (Auto) 0.6, Eosinophils # (Auto) 0.1, Basophils # (Auto) 0.0 Microbiology 07/07/18 Blood Culture - Final, Complete No growth 07/16/18 MRSA Screen - Final, Complete MRSA not isolated 07/06/18 Urine Culture - Final, Complete NO GROWTH Assessment/Plan Assessment/Plan Assessment/Plan Anemia with GI bleed most likely upper due to duodenal ulcers and hx dark tarry stools Posttraumatic stress disorder Duodenal ulcers - no signs of active bleed seen during EGD Status post PCI to LAD Pulmonary edema Patient on Protonix, Carafate, tolerating diet. following hgb, continue to follow and will transfuse as needed pulmonary edema - breathing easier Medical management being transfused at this time. will change to NPO. plan egd to re-evaluate. discussed with Dr. Chandra who agrees Clinical Quality Measures DVT/VTE Risk/Contraindication: Risk Factor Score Per Nursin RFS Level Per Nursing on Admit: 4+=Very High JAVIER MARTINEZ DO Jul 23, 2018 11:57
[2018-07-23] MEDS ORDERED: MIDAZOLAM 2 MG/2 ML (VERSED) VIAL ONE (13:02)
[2018-07-23] MEDS ORDERED: proPOfol 200 MG/20 ML (DIPRIVAN) VIAL IV ONE (13:02)
[2018-07-23] MEDS ORDERED: KETAMINE HCL 100 MG/ML 5 ML VIAL ONE (13:13)
[2018-07-23] MEDS ORDERED: PHENYLEPHRINE 100 MCG/ML 10 ML (ANESTHESIA) SYR ONE (13:27)
[2018-07-23] MEDS ORDERED: HURRICAINE EXT TUBE (BENZOCAINE) XX ONE (13:30)
[2018-07-23] MEDS ORDERED: EPINEPHrine INJECTION 1 MG/ML AMP ONE (13:38)
[2018-07-23] MEDS ORDERED: EPINEPHrine INJECTION 1 MG/ML AMP INJ PRN (13:45)
--- NOTE | 2018-07-23 14:10 | Physical Therapy Progress Note ---
Therapy Progress Note No PT with patient today. This morning patient had severely low hemoglobin and was set to have a procedure done. This afternoon patient is still not back from his procedure. Will check tomorrow. CRISTÓBAL MONTEMAYOR PT Jul 23, 2018 14:10
[2018-07-23] MEDS: SENNA W/DOCUSATE (SENOKOT S) TABLET PO SCH ×2 (14:44→21:09)
[2018-07-23] MEDS: PATCH REMOVAL TP SCH (14:45)
--- NOTE | 2018-07-23 15:00 | Progress Note (SOAP) ---
Subjective Subjective/Events-last exam Pt had another drop in Hb, no blood noted in stool but pt reports stool has been dark. Review of Systems Date Seen by Provider: Jul 23, 2018 Time Seen by Provider: 08:45 Focused Exam Time of Focused Exam: 07:40 Objective Exam Last Set of Vital Signs Vital Signs Date Time Temp Pulse Resp B/P (MAP) Pulse Ox O2 Delivery O2 Flow Rate FiO2 07/23/18 12:00 98.8 91 18 105/58 (74) 92 High Flow N/C 2.00 07/20/18 10:54 35 Capillary Refill : Less Than 3 SecondsLess Than 3 Seconds I&O Intake and Output 07/23/18 00:00 Intake Total 2190 ml Output Total 1325 ml Balance 865 ml Intake Oral 1690 ml IV Total 500 ml Output Urine Total 1325 ml General: Alert, Oriented X3, Cooperative Psych/Mental Status: Mood NL Results/Procedures Lab Laboratory Tests 07/22/18 15:58: Hemoglobin 9.3#L 07/22/18 16:11: Glucometer 217H 07/22/18 21:04: Glucometer 244H 07/23/18 05:17: Glucometer 274H 07/23/18 05:33: White Blood Count 9.0, Red Blood Count 2.55L, Hemoglobin 7.8L, Hematocrit 24L, Mean Corpuscular Volume 96, Mean Corpuscular Hemoglobin 31, Mean Corpuscular Hemoglobin Concent 32, Red Cell Distribution Width 18.5H, Platelet Count 285, Mean Platelet Volume 9.2, Neutrophils (%) (Auto) 84H, Lymphocytes (%) (Auto) 10L , Monocytes (%) (Auto) 6, Eosinophils (%) (Auto) 1, Basophils (%) (Auto) 0, Neutrophils # (Auto) 7.5, Lymphocytes # (Auto) 0.9L, Monocytes # (Auto) 0.6, Eosinophils # (Auto) 0.1, Basophils # (Auto) 0.0 07/23/18 12:27: Lab Scanned Report Transfusion Reaction Form Microbiology 07/07/18 Blood Culture - Final, Complete No growth 07/16/18 MRSA Screen - Final, Complete MRSA not isolated 07/06/18 Urine Culture - Final, Complete NO GROWTH Radiology Assessment/Plan Assessment/Plan Assessment & Plan 07/21 - Medically stable but continued weakness and limited ambulation. Will do OT eval. Consult for SNU. Anticipate DC to [facility] by Thursday. Plan for PVD intervention by Dr. Chandra after discharge, possibly next week. 07/22 - Hb down from 8 to 6.7 - transfuse 2U prbc, will recheck H/H. Per Dr. Acharya if Hb continues to drop will do EGD. Plan to hold transfer to SNU until Thursday if patient stabilizes. 07/23 - Hb 9.3 after transfusion, back down to 7.8 this am. Will transfuse another [address] Acharya planning to do EGD. Dr. Fox to assume care for the weekend. (1) Acute and chronic respiratory failure with hypoxia Status: Acute Assessment & Plan: 07/17: Arely consulted today, encourage patient to continue with Aerobike at least every hr, encouraged getting to edge of bed, will titrate as tolerated 07/18: Continue lasix for pulmonary edema, will titrate as tolerated 07/21: improved; down to 2.5L HF NC (2) Pulmonary edema cardiac cause Status: Acute Assessment & Plan: 07/17: Dr Chandra added lasix today, will diuresis and monitor renal function 07/21: improved (3) GI bleed Status: Resolved Assessment & Plan: Pt required another unit of PRBCs last night; Hgb stable for now. EGD with Patrizia today. Consider colonoscopy outpatient, should EGD come back negative. 07/09- EGD yesterday with large ulcers, not actively bleeding. Added sucralfate to pantoprazole but hemoglobin below 6 again this am. 2 units PRBCs, f/u after. 07/10- No vomiting, Hgb stable since transfusion, if continues to be stable would be stable for cath Thursday, Will advance diet today per surgery recommendations 07/11- Hgb stable, Will get retic count today, Start Fe infusions 07/12- Hgb stable today, will discuss case with surgery to see how long they would like to wait for cath, IV iron 07/13: Hgb Stable, continue IV iron 07/14: Hgb down today, discussed with Dr Acharya and will continue to monitor, Continue IV iron 07/15: Hgb up today, continue IV iron replacement 07/16: Hgb stable, continue IV Iron, cath today 07/17: Stable Qualifiers: Qualified Codes: K92.2 - Gastrointestinal hemorrhage, unspecified (4) Urinary retention due to benign prostatic hyperplasia Status: Acute Assessment & Plan: Catheter placed 07/07 due to significant retention. 07/08 start Flomax, may need to d/c with liriano depending on course. 07/15: D/c liriano today (5) Acute systolic CHF (congestive heart failure) Status: Acute Assessment & Plan: 07/10: Echo with EF 25%, plan for cath when anemia is stable 07/11: Discussed case with cardiology, waiting to get cath procedure done 07/13: Cath to be done Thursday or Sunday 07/15: Plan for cath tomorrow 07/16: Cath today with stents placed 07/17: Dr Chandra has ordered lifevest for patient 07/21 : Lifevest in place; pt has had some discharges overnight, being managed by Dr. Chandra (6) Debility Assessment & Plan: PT/OT, Will need rehab vs SNF following hospitalization 07/18: Will consult Rehab 07/21: SW working on placement for fpc; consult in to [facility] [place] (7) Hyperglycemia Status: Acute Assessment & Plan: sliding scale insulin, diabetic diet when taking PO 07/10: A1c pending (8) Lower extremity edema Status: Acute Assessment & Plan: Venous insufficiency/immobility versus related to his kidney function. Consider echocardiogram pending clinical course. 07/09- complaining of cough as well, will obtain echocardiogram 07/10- Abnormal echo, EF 25%, cardiology following 07/12: Discussed the importance of activity, getting to edge of bed, leg exercises and elevation of feet 07/14: Patient up in chair today (9) Severe anemia Status: Acute Assessment & Plan: Pt required another unit of PRBCs last night. EGD with Patrizia today. Consider colonscopy outpatient, should EGD come back negative. 07/09- hgb below 6 this am, 2 units prbc today, repeat hemoglobin after. 07/22 - Hb down from 8 to 6.7 - transfuse 2U prbc, will recheck H/H. Per Dr. Acharya if Hb continues to drop will do EGD. Plan to hold transfer to SNU until Thursday if patient stabilizes. 07/23 - Hb 9.3 after transfusion, back down to 7.8 this am. Will transfuse another [address] Acharya planning to do EGD. (10) Hypokalemia Status: Resolved Assessment & Plan: Replace and recheck. (11) Lactic acidosis Status: Resolved Assessment & Plan: Unclear etiology with no source of infection. Improved with IVF. Denies abdominal pain to suggest ischemia. (12) Diabetes mellitus, type 2 Status: Chronic Assessment & Plan: Diabetic diet when taking oral. Sliding scale insulin. 07/21: A1c 7.9%; BS running 200-300, will add Glyburide 2.5 mg daily Qualifiers: (13) Right foot drop Status: Acute Assessment & Plan: MRI showed only lumbar spondylosis. No clear explanation for his foot drop. 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 (14) Poor appetite Status: Acute Assessment & Plan: Denies pain, concern for underlying serious condition given his anemia and weakness. Endoscopy recommended in vs outpatient depending on course. 07/08 EGD today 07/09 EGD yesterday with ulcers, treating with pantoprazole and sucralfate, biopsies pending (15) Leg weakness, bilateral Status: Acute Assessment & Plan: PT. (16) BPH (benign prostatic hyperplasia) Status: Chronic Assessment & Plan: Previously on medication, he stopped due to side effects. Qualifiers: (17) PTSD (post-traumatic stress disorder) Status: Chronic Assessment & Plan: Resume home medications. (18) COPD (chronic obstructive pulmonary disease) Status: Chronic Assessment & Plan: Resume home inhalers (19) DVT prophylaxis Status: Acute Assessment & Plan: No pharmacologic ppx with active bleed. SCDs. Clinical Quality Measures DVT/VTE Risk/Contraindication: Risk Factor Score Per Nursin RFS Level Per Nursing on Admit: 4+=Very High ALBERT ABEL DO Jul 23, 2018 14:59
[2018-07-23] MEDS: BENZONATATE 100 MG (TESSALON) CAPSULE PO PRN (15:05)
[2018-07-23] MEDS: NICOTINE 21 MG (NICODERM) PATCH TD SCH (15:27)
[2018-07-23] MEDS: PANTOPRAZOLE 40 MG (PROTONIX) TAB PO SCH ×2 (15:27→21:09)
--- NOTE | 2018-07-23 15:35 | Anesthesia-General Post-Op ---
MAC Patient Condition Mental Status/LOC: Same as Preop Cardiovascular: Satisfactory Nausea/Vomiting: Absent Respiratory: Satisfactory Pain: Controlled Complications: Absent Post Op Complications Complications None Follow Up Care/Instructions Patient Instructions None needed. Anesthesiology Discharge Order Discharge Order Patient is doing well, no complaints, stable vital signs, no apparent adverse anesthesia problems. JUVENAL MAYS DO Jul 23, 2018 15:35
--- NOTE | 2018-07-23 16:03 | Progress Note-Post Operative ---
Post-Operative Progess Note Surgeon (s)/Adjunct Instructor Chemistry (s) Surgeon JAVIER MARTINEZ DO Adjunct Instructor Chemistry: na Pre-Operative Diagnosis ANEMIA, GI BLEED Post-Operative Diagnosis bleeding duodenal ulceration Procedure & Operative Findings Date of Procedure 07/23/18 Procedure Performed/Findings egd c control of bleeding duodenal ulcer c epinephrine and resolution clip Anesthesia Type per mda Estimated Blood Loss Estimated blood loss (mL): minimal Specimens/Packing Specimens Removed na Packing: dict # [id number] JAVIER MARTINEZ DO Jul 23, 2018 16:03
[2018-07-23 17:47] LABS: HEMOGLOBIN 8.9 G/DL (13.3-17.7)
[2018-07-23] MEDS: TAMSULOSIN 0.4 MG (FLOMAX) CAP PO SCH (18:21)
[2018-07-23] MEDS: ATORVASTATIN 80 MG (LIPITOR) TABLET PO SCH (21:09)
[2018-07-24] VITALS: BP 104/59
[2018-07-24] MEDS: RT-ALBUTEROL SULF 2.5 MG/3 ML PRE-MIX VIAL INH SCH ×6 (01:52→21:26)
--- NOTE | 2018-07-24 03:42 | OPERATIVE REPORT ---
DATE OF SERVICE: 07/23/2018 PREOPERATIVE DIAGNOSIS: Anemia, GI bleed. POSTOPERATIVE DIAGNOSIS: Bleeding duodenal ulceration. PROCEDURE: EGD with control of bleeding duodenal ulcer with epinephrine and placement of resolution clip. ANESTHESIA: Per MDA. ESTIMATED BLOOD LOSS: Minimal. COMPLICATIONS: None. INDICATIONS: The patient is a 67-year-old male, who previously was found to have duodenal ulcerations. He was found to be anemic. The patient had stabilization of his hemoglobin and then had to undergo cardiac intervention and stenting. The patient was on antiplatelet therapy at this time. He then had a drop in his hemoglobin and having dark tarry stools again. The patient was recommended repeat endoscopy. He understands risks and benefits of procedure and wished to proceed with procedure. Consent was signed on the chart. DESCRIPTION OF PROCEDURE: The patient was taken to the endoscopy suite, placed in left lower recumbent position. Timeout was performed. Scope was inserted in mouth, down the esophagus, stomach and duodenum without difficulty. There was a fair amount of blood within the stomach and also more in the pylorus. The duodenum was then began to be flushed with water, which then demonstrated a duodenal ulceration with a bleeding arterial vessel. Epinephrine was then injected in 2 locations surrounding the bleeding vessel, which then did control the bleeding. A resolution clip was then placed in this location as well to help prevent any further bleeding. The area was then irrigated with copious amounts of irrigation and this did demonstrate control of the bleeding vessel. The scope was then slowly retracted back into the stomach. There were no polyps, mass or ulcerations visualized within the stomach. There is some blood that refluxed back into the stomach from the duodenum. The scope was then slowly retracted back into the distal esophagus, which had no significant pathology. There were no polyps, masses or ulcerations. The scope was slowly retracted back to completely remove. The patient tolerated procedure well without complications and taken to recovery room in stable condition. RECOMMENDATIONS: The patient to stay n.p.o. at this time. We will continue to follow hemoglobin. Transfuse as needed. The patient was asked to continue in the hospital at this time. Patient will be continued on Protonix. Job ID: [id number] DocumentID: [id number] Dictated Date: 07/23/2018 16:04:56 Cooperative Extension Agent Date: 07/24/2018 03:41:52 Dictated By: JAVIER MARTINEZ DO
[2018-07-24 04:00] VITALS: BP 117/52
[2018-07-24] MEDS: CATHETER FLUSH 10 ML SYR IV SCH ×3 (06:14→21:10)
[2018-07-24] MEDS: inSUlin ASPART (NovoLOG) 1 UNIT/0.01 ML (CHARGE PER UNIT) SC SCH ×4 (06:14→21:06)
[2018-07-24] MEDS: SUCRALFATE 1 GM (CARAFATE) TAB PO SCH ×4 (06:14→21:05)
[2018-07-24] MEDS: NYSTATIN ORAL SUSP 5 ML UDC PO SCH ×3 (06:14→16:31)
[2018-07-24] MEDS: RT-ADVAIR HFA 115/21 MCG PER PUFF IH SCH ×2 (07:50→18:42)
[2018-07-24] MEDS: UMECLIDINIUM BROMIDE (INCRUSE ELLIPTA) 7'S IH SCH (07:50)
[2018-07-24 08:00] VITALS: BP 98/60
[2018-07-24 08:24] LABS: HEMOGLOBIN 8.9 G/DL (13.3-17.7)
--- NOTE | 2018-07-24 08:25 | Progress Note (SOAP) ---
Subjective Subjective/Events-last exam patient admits that he is thirsty this morning. He is not with any pain. He does report yesterday he was informed that his stool had blood. Review of Systems Date Seen by Provider: Jul 24, 2018 Time Seen by Provider: 06:40 Focused Exam Time of Focused Exam: 07:40 Objective Exam Last Set of Vital Signs Vital Signs Date Time Temp Pulse Resp B/P (MAP) Pulse Ox O2 Delivery O2 Flow Rate FiO2 07/24/18 07:51 91 Nasal Cannula 4.00 07/24/18 07:00 85 07/24/18 04:00 97.0 16 117/52 (73) 07/20/18 10:54 35 Capillary Refill : Less Than 3 SecondsLess Than 3 Seconds I&O Intake and Output 07/24/18 00:00 Intake Total 790 ml Output Total 3250 ml Balance -2460 ml Intake Oral 250 ml Other 540 ml Output Urine Total 3250 ml General: No Acute Distress Lungs: Clear to Auscultation Heart: Regular Rate Abdomen: Soft (with no obvious tenderness) Skin: No Rashes Results/Procedures Lab Laboratory Tests 07/23/18 12:27: Lab Scanned Report Transfusion Reaction Form 07/23/18 16:15: Glucometer 220H 07/23/18 17:34: Hemoglobin 8.9L, Hematocrit 27L 07/23/18 20:38: Glucometer 210H 07/23/18 23:45: Glucometer 208H 07/24/18 04:59: Glucometer 228H Microbiology 07/07/18 Blood Culture - Final, Complete No growth 07/16/18 MRSA Screen - Final, Complete MRSA not isolated 07/06/18 Urine Culture - Final, Complete NO GROWTH Radiology Assessment/Plan Assessment/Plan Assessment & Plan 07/21 - Medically stable but continued weakness and limited ambulation. Will do OT eval. Consult for SNU. Anticipate DC to [facility] by Thursday. Plan for PVD intervention by Dr. Chandra after discharge, possibly next week. 07/22 - Hb down from 8 to 6.7 - transfuse 2U prbc, will recheck H/H. Per Dr. Acharya if Hb continues to drop will do EGD. Plan to hold transfer to SNU until Thursday if patient stabilizes. 07/23 - Hb 9.3 after transfusion, back down to 7.8 this am. Will transfuse another [address] Acharya planning to do EGD. Dr. Coleman to assume care for the weekend. 07/24/2018 -hemoglobin yesterday at 530 p.m. was 8.9 We will plan on rechecking this In the morning of July 25. It appears that he is not actively bleeding. I spoke with Dr. Acharya and we will go ahead and start clear liquid diet this morning (1) Acute and chronic respiratory failure with hypoxia Status: Acute Assessment & Plan: 07/17: Arely consulted today, encourage patient to continue with Aerobike at least every hr, encouraged getting to edge of bed, will titrate as tolerated 07/18: Continue lasix for pulmonary edema, will titrate as tolerated 07/21: improved; down to 2.5L HF NC (2) Pulmonary edema cardiac cause Status: Acute Assessment & Plan: 07/17: Dr Chandra added lasix today, will diuresis and monitor renal function 07/21: improved (3) GI bleed Status: Resolved Assessment & Plan: Pt required another unit of PRBCs last night; Hgb stable for now. EGD with Patrizia today. Consider colonoscopy outpatient, should EGD come back negative. 07/09- EGD yesterday with large ulcers, not actively bleeding. Added sucralfate to pantoprazole but hemoglobin below 6 again this am. 2 units PRBCs, f/u after. 07/10- No vomiting, Hgb stable since transfusion, if continues to be stable would be stable for cath Thursday, Will advance diet today per surgery recommendations 07/11- Hgb stable, Will get retic count today, Start Fe infusions 07/12- Hgb stable today, will discuss case with surgery to see how long they would like to wait for cath, IV iron 07/13: Hgb Stable, continue IV iron 07/14: Hgb down today, discussed with Dr Acharya and will continue to monitor, Continue IV iron 07/15: Hgb up today, continue IV iron replacement 07/16: Hgb stable, continue IV Iron, cath today 07/17: Stable Qualifiers: Qualified Codes: K92.2 - Gastrointestinal hemorrhage, unspecified (4) Urinary retention due to benign prostatic hyperplasia Status: Acute Assessment & Plan: Catheter placed 07/07 due to significant retention. 07/08 start Flomax, may need to d/c with liriano depending on course. 07/15: D/c liriano today (5) Acute systolic CHF (congestive heart failure) Status: Acute Assessment & Plan: 07/10: Echo with EF 25%, plan for cath when anemia is stable 07/11: Discussed case with cardiology, waiting to get cath procedure done 07/13: Cath to be done Thursday or Sunday 07/15: Plan for cath tomorrow 07/16: Cath today with stents placed 07/17: Dr Chandra has ordered lifevest for patient 07/21 : Lifevest in place; pt has had some discharges overnight, being managed by Dr. Chandra (6) Debility Assessment & Plan: PT/OT, Will need rehab vs SNF following hospitalization 07/18: Will consult Rehab 07/21: SW working on placement for retirement; consult in to [facility] (7) Hyperglycemia Status: Acute Assessment & Plan: sliding scale insulin, diabetic diet when taking PO 07/10: A1c pending (8) Lower extremity edema Status: Acute Assessment & Plan: Venous insufficiency/immobility versus related to his kidney function. Consider echocardiogram pending clinical course. 07/09- complaining of cough as well, will obtain echocardiogram 07/10- Abnormal echo, EF 25%, cardiology following 07/12: Discussed the importance of activity, getting to edge of bed, leg exercises and elevation of feet 07/14: Patient up in chair today (9) Severe anemia Status: Acute Assessment & Plan: Pt required another unit of PRBCs last night. EGD with Patrizia today. Consider colonscopy outpatient, should EGD come back negative. 07/09- hgb below 6 this am, 2 units prbc today, repeat hemoglobin after. 07/22 - Hb down from 8 to 6.7 - transfuse 2U prbc, will recheck H/H. Per Dr. Acharya if Hb continues to drop will do EGD. Plan to hold transfer to SNU until Thursday if patient stabilizes. 07/23 - Hb 9.3 after transfusion, back down to 7.8 this am. Will transfuse another [address] Acharya planning to do EGD. (10) Hypokalemia Status: Resolved Assessment & Plan: Replace and recheck. (11) Lactic acidosis Status: Resolved Assessment & Plan: Unclear etiology with no source of infection. Improved with IVF. Denies abdominal pain to suggest ischemia. (12) Diabetes mellitus, type 2 Status: Chronic Assessment & Plan: Diabetic diet when taking oral. Sliding scale insulin. 07/21: A1c 7.9%; BS running 200-300, will add Glyburide 2.5 mg daily Qualifiers: (13) Right foot drop Status: Acute Assessment & Plan: MRI showed only lumbar spondylosis. No clear explanation for his foot drop. 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 (14) Poor appetite Status: Acute Assessment & Plan: Denies pain, concern for underlying serious condition given his anemia and weakness. Endoscopy recommended in vs outpatient depending on course. 07/08 EGD today 07/09 EGD yesterday with ulcers, treating with pantoprazole and sucralfate, biopsies pending (15) Leg weakness, bilateral Status: Acute Assessment & Plan: PT. (16) BPH (benign prostatic hyperplasia) Status: Chronic Assessment & Plan: Previously on medication, he stopped due to side effects. Qualifiers: (17) PTSD (post-traumatic stress disorder) Status: Chronic Assessment & Plan: Resume home medications. (18) COPD (chronic obstructive pulmonary disease) Status: Chronic Assessment & Plan: Resume home inhalers (19) DVT prophylaxis Status: Acute Assessment & Plan: No pharmacologic ppx with active bleed. SCDs. Clinical Quality Measures DVT/VTE Risk/Contraindication: Risk Factor Score Per Nursin RFS Level Per Nursing on Admit: 4+=Very High RABIA COLEMAN MD Jul 24, 2018 08:24
[2018-07-24] MEDS: ASPIRIN E.C. 81 MG (ECOTRIN) TAB PO SCH (08:40)
[2018-07-24] MEDS: ALPRAZolam 0.5 MG (XANAX) TAB PO SCH ×2 (08:41→21:03)
[2018-07-24] MEDS: PARoxetine 20 MG (PAXIL) TAB PO SCH ×2 (08:41→21:04)
[2018-07-24] MEDS: PANTOPRAZOLE 40 MG (PROTONIX) TAB PO SCH ×2 (08:41→21:03)
[2018-07-24] MEDS: TICAGRELOR 90 MG TABLET (BRILINTA) PO SCH ×2 (08:41→21:03)
[2018-07-24] MEDS: NICOTINE 21 MG (NICODERM) PATCH TD SCH (08:41)
[2018-07-24] MEDS: PATCH REMOVAL TP SCH (08:42)
[2018-07-24] MEDS: lisINopril 5 MG (PRINIVIL) TABLET PO SCH (08:42)
[2018-07-24] MEDS: MENTHOL/ZINC OXIDE (CALMOSEPTINE) 113 GM TUBE TOP SCH ×2 (08:42→21:09)
[2018-07-24] MEDS: POLYETHYLENE GLYCOL 17 GM (MIRALAX) PACK PO SCH ×2 (08:43→21:02)
[2018-07-24] MEDS: FUROSEMIDE 40 MG/4 ML INJ (LASIX) IVP SCH (08:43)
[2018-07-24] MEDS: SENNA W/DOCUSATE (SENOKOT S) TABLET PO SCH ×2 (08:43→21:03)
--- NOTE | 2018-07-24 09:16 | Physical Therapy Daily Note ---
PT Daily Note-Current Subjective Pt states he is feeling better today. States recently was able to walk to the bathroom and take a shower for the first time in a long time and felt so much better. Pain Comment: states he has some pain but not rating it Appearance upon entering pt's room, Pt awake and alert, supine in bed with head elevated, family present. family member present during entire session at end of session, pt supine in bed with HOB elevated, call light within reach, all needs met, and per pt request notified nsg that he would like his bandage changed. Mental Status Attachments: Saline Lock, Oxygen, Other-See Comments 4L O2/NC Transfers Therapy Code Descriptions/Definitions Functional [place] Measure: 0=Not Assessed/NA 4=Minimal Assistance 1=Total Assistance 5=Supervision or Setup 2=Maximal Assistance 6=Modified [place] 3=Moderate Assistance 7=Complete [place] Therapy Quality Codes: 6 Independent with activity with or without an assistive device 5 Patient requires set up or clean up by helper. Patient completes activity by themselves 4 Supervision or touching assist (CGA). [place] provide cues , steadying assist 3 The helper provides less than half the effort to complete the activity 2 The helper provides more than half the effort to complete the activity 1 Dependent. The helper does all the effort to complete an activity 7 Patient refused to complete or attempt activity 9 The patient did not perform the activity before the current illness or injury 88 Not attempted due to Medical conditions or safety concerns Transfers (B, C, W/C) (FIM): 5 Scootin Rollin Supine to/from Sit: 5 Sit to/from Stand: 5 pt performing transitions with some fatigue and increased SOA Weight Bearing Right Lower Extremity: Right Full Weight Bearing Left Lower Extremity: Left Full Weight Bearing Gait Training Distance (FIM): 1=up to 49 ft Distance: 10, 15 Gait Level of Assist: 6 Gait Persons Needed: 1 Gait Assistive Device: FWW slow, increased SOA, R foot drop, standing rest breaks Treatments transfer and gait training Assessment Current Status: Good Progress PT Short Term Goals Short Term Goals Time Frame: Jul 15, 2018 PT Bottom Ironer Goals Bottom Ironer Goals PT Care Home Goals Time Frame: Jul 14, 2018 Transfers (B,C,W/C) (FIM): 6 Gait (FIM): 6 Gait distance (FIM): 3=150 ft Gait Level of Assist: 6 Gait Assistive Device: FWW PT Plan Problem List Problem List: Activity Tolerance, Functional Strength, Safety, Gait, Transfer, Bed Mobility Treatment/Plan Treatment Plan: Continue Plan of Care Treatment Plan: Bed Mobility, Education, Functional Activity Michel, Functional Strength, Gait, Safety, Therapeutic Exercise, Transfers Treatment Duration: Jul 24, 2018 Frequency: 6 times per week Estimated Hrs Per Day: .5 hour per day Patient and/or Family Agrees t: Yes Safety Risks/Education Patient Education: Gait Training, Transfer Techniques, Safety Issues Teaching Recipient: Patient Teaching Methods: Discussion Response to Teaching: Verbalize Understanding Time/GCodes Time In: 850 Time Out: 909 Total Billed Treatment Time: 19 Total Billed Treatment 1 Visit 1 GT ANNY BEARD PTA Jul 24, 2018 09:16
--- NOTE | 2018-07-24 09:29 | Pulmonary Progress Note ---
Subjective Time Seen by a Provider: 09:28 Sepsis Event Evaluation Height, Weight, BMI Height: 5'7.00" Weight: 133lbs. 7.0oz. [id number]; 24.3 BMI Method:Stated Focused Exam Time of Focused Exam: 07:40 Exam Exam Vital Signs Date Time Temp Pulse Resp B/P (MAP) Pulse Ox O2 Delivery O2 Flow Rate FiO2 07/24/18 08:00 98.2 86 16 98/60 (73) 93 High Flow N/C 4.00 07/24/18 07:51 91 Nasal Cannula 4.00 07/24/18 07:00 85 07/24/18 04:00 97.0 92 16 117/52 (73) 93 High Flow N/C 4.00 07/24/18 01:52 93 Nasal Cannula 4.00 07/24/18 01:00 92 07/24/18 00:00 99.2 99 16 104/59 (74) 93 High Flow N/C 4.00 07/23/18 22:00 89 Nasal Cannula 3.00 07/23/18 21:00 Nasal Cannula 3.00 07/23/18 20:19 92 Room Air 07/23/18 20:11 98.9 89 18 100/62 (75) 94 High Flow N/C 2.00 07/23/18 19:00 98 07/23/18 16:08 99.3 97 18 90/50 (63) 93 High Flow N/C 2.00 07/23/18 15:55 93 Nasal Cannula 3.00 07/23/18 12:00 98.8 91 18 105/58 (74) 92 High Flow N/C 2.00 07/23/18 11:10 98.0 88 16 105/58 95 Nasal Cannula 3.00 07/23/18 10:54 98.3 90 18 85/50 96 Nasal Cannula 3.00 07/23/18 10:27 88 Nasal Cannula 2.00 I & O 07/24/18 07:00 Intake Total 540 ml Output Total 3000 ml Balance -2460 ml Height & Weight Height: 5'7.00" Weight: 133lbs. 7.0oz. 60.706250pe; 24.3 BMI Method:Stated General Appearance: No Apparent Distress, WD/WN, Chronically ill, Thin HEENT: PERRL/EOMI; No Scleral Icterus (L), No Scleral Icterus (R) Neck: Non Tender Respiratory: Chest Non Tender, No Accessory Muscle Use, No Respiratory Distress Cardiovascular: Regular Rate, Rhythm, Normal Peripheral Pulses Capillary Refill: Less Than 3 Seconds Gastrointestinal: non tender, soft, no organomegaly, no pulsatile mass Extremity: Non Tender, Swelling (Bilateral lower extremity minimal) Neurologic/Psychiatric: Alert, Oriented x3, No Motor/Sensory Deficits, Normal Mood/Affect Skin: Normal Color, Warm/Dry Results Lab Laboratory Tests 07/22/18 15:58 07/23/18 05:33 07/23/18 17:34 07/24/18 08:10 Assessment/Plan Assessment/Plan Pulmonary edema with severe dilated cardiomyopathy EF 25% -Life vest -Cardiology following -Lasix SOB - improved Anemia -PRBC already ordered Hx of COPD -SVNS, advair oxygen CKD Recent GIB with gastric ulcers Tobacco use Aortic insufficiency ASD, Pulmonary HTN COPD MALGORZATA SUMNER DO Jul 24, 2018 09:29
--- NOTE | 2018-07-24 11:09 | Cardiology Progress Note ---
Subjective Date Seen by Provider: Jul 24, 2018 Time Seen by Provider: 11:04 Subjective/Events-last exam Patient is laying down in bed, having some shortness of breath, had some chest pain last night required sublingual nitroglycerin, no further episode of chest pain, required higher oxygen level overnight. Review of Systems General: No Chills, No Night Sweats, No Fatigue, No Malaise, No Appetite, No Other HEENT: No Head Aches, No Visual Changes, No Eye Pain, No Ear Pain, No Dysphasia , No Sinus Congestion, No Post Nasal Drip, No Sore Throat, No Other Pulmonary: Dyspnea, Cough; No Pleuritic Chest Pain, No Other Cardiovascular: Chest Pain, Edema; No: Palpitations, Orthopnea, Paroxysmal Noc. Dyspnea, Lt Headedness, Other Focused Exam Time of Focused Exam: 07:40 Objective-Cardiology Exam Last Set of Vital Signs Vital Signs 07/20/18 07/24/18 07/24/18 10:54 08:00 10:43 Temp 98.2 Pulse 86 Resp 16 B/P (MAP) 98/60 (73) Pulse Ox 94 O2 Delivery Nasal Cannula O2 Flow Rate 4.00 FiO2 35 Capillary Refill : Less Than 3 SecondsLess Than 3 Seconds I&O Intake and Output 07/24/18 00:00 Intake Total 790 ml Output Total 3250 ml Balance -2460 ml Intake Oral 250 ml Other 540 ml Output Urine Total 3250 ml General: Alert, Oriented X3, Cooperative, No Acute Distress HEENT: Atraumatic, PERRLA, Mucous Memb Moist/Christine Neck: Supple Lungs: Clear to Auscultation Heart: Regular Rate, Normal S1, Normal S2, Other (s3) Abdomen: Soft (with no obvious tenderness) Extremities: No Clubbing, Other (mild edema) Skin: No Rashes Neuro: Normal Gait, Normal Speech, Sensation Intact, Cranial Nerves 3-12 NL Psych/Mental Status: Mental Status NL, Mood NL Results Lab Laboratory Tests 07/23/18 17:34 07/24/18 08:10 A/P-Cardiology Admission Diagnosis Acute respiratory failure GI bleed Coronary artery disease Congestive heart failure, acute on chronic left ventricular systolic dysfunction , ischemic cardiomyopathy Assessment/Plan Statur post acute respiratory failure, pulmonary edema, improved, having more shortness of breath overnight requiring higher dose of oxygen, continue on Lasix and monitor tolerance and response Recent GI bleeding, on PPI and sucrafate. Peptic ulcer disease. Dr. Acharya following. Severe dilated cardiomyopathy, acute on chronic left ventricular systolic dysfunction, ischemic cardiomyopathy, LVEF on Echo 25% with anterior/apical hypokinesis. Chest pain nonspecific etiology secondary to extensive coronary artery disease as described below, given sublingual nitroglycerin yesterday and reported improvement. Continue to monitor Coronary angiography revealed a chronically total occlusion of the RCA. Collaterals from the left circumflex artery. Moderate left circumflex artery stenosis. Severe LAD stenosis treated successfully with drug-eluting stents. LVEDP 28 mmHg. continue to monitor Lifevest for primary prevention of sudden cardiac , dilated cardiomyopathy. Patient is wearing a LifeVest. Smoking - smoking cessation was strongly recommended. Hypertension, currently borderline hypotensive secondary to medication, continue to monitor blood pressure DM, continue metformin for now. Hyperlipidemia, statin therapy. CKD; Diabetic nephropathy likely. Resting Leg discomfort, lifestyle limiting claudication, bilateral significant PAD. 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 Acute diastolic CHF, pseudonormal diastolic dysfunction. caution with IV fluids. Pulmonary HTN, likely secondary to COPD. COPD, defer to primary team. Clinical Quality Measures DVT/VTE Risk/Contraindication: Risk Factor Score Per Nursin RFS Level Per Nursing on Admit: 4+=Very High LINDA HASSAN MD Jul 24, 2018 11:09
[2018-07-24 12:00] VITALS: BP 94/52
--- NOTE | 2018-07-24 12:54 | Progress Note-Standard ---
Standard Progress Note Progress Notes/Assess & Plan Date Seen by a Provider: Jul 24, 2018 Time Seen by a Provider: 11:35 Progress/Assessment & Plan no more melena. Hemodynamics reasonably stable. Hemoglobin 8.9. Abdomen soft Final Diagnosis upper GI bleeding. Stable Focused Exam Time of Focused Exam: 07:40 ALFREDO VILLEDA MD Jul 24, 2018 12:53
[2018-07-24 15:45] VITALS: BP 102/50
[2018-07-24] MEDS: diphenhydrAMINE 25 MG TAB (BENADRYL) PO PRN (16:30)
[2018-07-24] MEDS: TAMSULOSIN 0.4 MG (FLOMAX) CAP PO SCH (16:31)
[2018-07-24 19:49] VITALS: BP 105/55
[2018-07-24] MEDS: ATORVASTATIN 80 MG (LIPITOR) TABLET PO SCH (21:04)
[2018-07-25] VITALS (7 sets, daily range): BP systolic 87–128; BP diastolic 49–67
[2018-07-25] MEDS: NYSTATIN ORAL SUSP 5 ML UDC PO SCH ×5 (00:40→23:49)
[2018-07-25] MEDS: RT-ALBUTEROL SULF 2.5 MG/3 ML PRE-MIX VIAL INH SCH ×6 (01:28→21:42)
[2018-07-25 05:51] LABS: MEAN PLATELET VOLUME 9.3 FL (7.4-10.4); RED BLOOD COUNT 2.6 10^6/uL (4.35-5.85); RED CELL DISTRIBUTION WIDTH 16.3 % (10.0-14.5); WHITE BLOOD COUNT 8.5 10^3/uL (4.3-11.0)
[2018-07-25] MEDS: SUCRALFATE 1 GM (CARAFATE) TAB PO SCH ×4 (05:59→21:22)
[2018-07-25] MEDS: inSUlin ASPART (NovoLOG) 1 UNIT/0.01 ML (CHARGE PER UNIT) SC SCH ×4 (06:00→21:23)
[2018-07-25] MEDS: CATHETER FLUSH 10 ML SYR IV SCH ×3 (06:00→22:57)
[2018-07-25 06:15] LABS: ALANINE AMINOTRANSFERASE 20 U/L (0-55); ALBUMIN 2.8 GM/DL (3.2-4.5); ALKALINE PHOSPHATASE 88 U/L (40-136); BILIRUBIN,TOTAL 0.7 MG/DL (0.1-1.0); BUN/CREATININE RATIO 23; CALCIUM 8.3 MG/DL (8.5-10.1); CARBON DIOXIDE 23 MMOL/L (21-32); CHLORIDE 99 MMOL/L (98-107); CREATININE SERUM 0.94 MG/DL (0.60-1.30); GFR ESTIMATED > 60; GLUCOSE 207 MG/DL (70-105); POTASSIUM 3.1 MMOL/L (3.6-5.0); SODIUM 134 MMOL/L (135-145); TOTAL PROTEIN 5.2 GM/DL (6.4-8.2)
[2018-07-25] MEDS: RT-ADVAIR HFA 115/21 MCG PER PUFF IH SCH ×2 (07:53→18:54)
[2018-07-25] MEDS: UMECLIDINIUM BROMIDE (INCRUSE ELLIPTA) 7'S IH SCH (07:53)
--- NOTE | 2018-07-25 08:32 | Progress Note (SOAP) ---
Subjective Subjective/Events-last exam Patient responds appropriately. He does admit that his last stool was very dark in color. He is tolerating clear liquid diet. He was asking if he could advance his diet. Review of Systems Date Seen by Provider: Jul 25, 2018 Time Seen by Provider: 07:20 Focused Exam Time of Focused Exam: 07:40 Objective Exam Last Set of Vital Signs Vital Signs Date Time Temp Pulse Resp B/P (MAP) Pulse Ox O2 Delivery O2 Flow Rate FiO2 07/25/18 08:26 98.9 86 22 105/59 (74) 97 High Flow N/C 4.00 07/20/18 10:54 35 Capillary Refill : Less Than 3 SecondsLess Than 3 Seconds I&O Intake and Output 07/25/18 00:00 Intake Total 1397 ml Output Total 1300 ml Balance 97 ml Intake Oral 1397 ml Output Urine Total 1300 ml # Voids 1 General: No Acute Distress Neck: Supple Lungs: Clear to Auscultation Heart: Regular Rate Abdomen: Soft, No Tenderness Skin: No Rashes Psych/Mental Status: Mental Status NL Results/Procedures Lab Laboratory Tests 07/24/18 11:22: Glucometer 377H 07/24/18 15:53: Glucometer 201H 07/24/18 20:54: Glucometer 316H 07/25/18 05:05: White Blood Count 8.5, Red Blood Count 2.60L, Hemoglobin 8.0L, Hematocrit 25L, Mean Corpuscular Volume 94, Mean Corpuscular Hemoglobin 31, Mean Corpuscular Hemoglobin Concent 33, Red Cell Distribution Width 16.3H, Platelet Count 258, Mean Platelet Volume 9.3, Sodium Level 134L, Potassium Level 3.1L, Chloride Level 99, Carbon Dioxide Level 23, Anion Gap 12, Blood Urea Nitrogen 22H, Creatinine 0.94, Estimat Glomerular Filtration Rate > 60, BUN/Creatinine Ratio 23, Glucose Level 207H, Calcium Level 8.3L, Corrected Calcium 9.3, Total Bilirubin 0.7, Aspartate Amino Transf (AST/SGOT) 18, Alanine Aminotransferase ( ALT/SGPT) 20, Alkaline Phosphatase 88, B-Type Natriuretic Peptide 311.0H, Total Protein 5.2L, Albumin 2.8L 07/25/18 05:36: Glucometer 267H Microbiology 07/07/18 Blood Culture - Final, Complete No growth 07/16/18 MRSA Screen - Final, Complete MRSA not isolated 07/06/18 Urine Culture - Final, Complete NO GROWTH Radiology Assessment/Plan Assessment/Plan Assessment & Plan 07/21 - Medically stable but continued weakness and limited ambulation. Will do OT eval. Consult for SNU. Anticipate DC to [facility] by Thursday. Plan for PVD intervention by Dr. Chandra after discharge, possibly next week. 07/22 - Hb down from 8 to 6.7 - transfuse 2U prbc, will recheck H/H. Per Dr. Acharya if Hb continues to drop will do EGD. Plan to hold transfer to SNU until Thursday if patient stabilizes. 07/23 - Hb 9.3 after transfusion, back down to 7.8 this am. Will transfuse another [address] Acharya planning to do EGD. Dr. Coleman to assume care for the weekend. 07/24/2018 -hemoglobin yesterday at 530 p.m. was 8.9 We will plan on rechecking this In the morning of July 25. It appears that he is not actively bleeding. I spoke with Dr. Acharya and we will go ahead and start clear liquid diet this morning 07/25/2018 - hemoglobin this morning was noted to be 8.0. This is a drop from 8.9. His hemoglobin will be rechecked in the morning. Also surgical input today. We'll defer on advancing diet until surgical evaluation today. (1) Acute and chronic respiratory failure with hypoxia Status: Acute Assessment & Plan: 07/17: Arely consulted today, encourage patient to continue with Aerobike at least every hr, encouraged getting to edge of bed, will titrate as tolerated 07/18: Continue lasix for pulmonary edema, will titrate as tolerated 07/21: improved; down to 2.5L HF NC (2) Pulmonary edema cardiac cause Status: Acute Assessment & Plan: 07/17: Dr Chnadra added lasix today, will diuresis and monitor renal function 07/21: improved (3) GI bleed Status: Resolved Assessment & Plan: Pt required another unit of PRBCs last night; Hgb stable for now. EGD with Patrizia today. Consider colonoscopy outpatient, should EGD come back negative. 07/09- EGD yesterday with large ulcers, not actively bleeding. Added sucralfate to pantoprazole but hemoglobin below 6 again this am. 2 units PRBCs, f/u after. 07/10- No vomiting, Hgb stable since transfusion, if continues to be stable would be stable for cath Thursday, Will advance diet today per surgery recommendations 07/11- Hgb stable, Will get retic count today, Start Fe infusions 07/12- Hgb stable today, will discuss case with surgery to see how long they would like to wait for cath, IV iron 07/13: Hgb Stable, continue IV iron 07/14: Hgb down today, discussed with Dr Acharya and will continue to monitor, Continue IV iron 07/15: Hgb up today, continue IV iron replacement 07/16: Hgb stable, continue IV Iron, cath today 07/17: Stable Qualifiers: Qualified Codes: K92.2 - Gastrointestinal hemorrhage, unspecified (4) Urinary retention due to benign prostatic hyperplasia Status: Acute Assessment & Plan: Catheter placed 07/07 due to significant retention. 07/08 start Flomax, may need to d/c with liriano depending on course. 07/15: D/c liriano today (5) Acute systolic CHF (congestive heart failure) Status: Acute Assessment & Plan: 07/10: Echo with EF 25%, plan for cath when anemia is stable 07/11: Discussed case with cardiology, waiting to get cath procedure done 07/13: Cath to be done Thursday or Sunday 07/15: Plan for cath tomorrow 07/16: Cath today with stents placed 07/17: Dr Chandra has ordered lifevest for patient 07/21 : Lifevest in place; pt has had some discharges overnight, being managed by Dr. Chandra (6) Debility Assessment & Plan: PT/OT, Will need rehab vs SNF following hospitalization 07/18: Will consult Rehab 07/21: SW working on placement for group home; consult in to [facility] (7) Hyperglycemia Status: Acute Assessment & Plan: sliding scale insulin, diabetic diet when taking PO 07/10: A1c pending (8) Lower extremity edema Status: Acute Assessment & Plan: Venous insufficiency/immobility versus related to his kidney function. Consider echocardiogram pending clinical course. 07/09- complaining of cough as well, will obtain echocardiogram 07/10- Abnormal echo, EF 25%, cardiology following 07/12: Discussed the importance of activity, getting to edge of bed, leg exercises and elevation of feet 07/14: Patient up in chair today (9) Severe anemia Status: Acute Assessment & Plan: Pt required another unit of PRBCs last night. EGD with Patrizia today. Consider colonscopy outpatient, should EGD come back negative. 07/09- hgb below 6 this am, 2 units prbc today, repeat hemoglobin after. 07/22 - Hb down from 8 to 6.7 - transfuse 2U prbc, will recheck H/H. Per Dr. Acharya if Hb continues to drop will do EGD. Plan to hold transfer to SNU until Thursday if patient stabilizes. 07/23 - Hb 9.3 after transfusion, back down to 7.8 this am. Will transfuse another [address] Acharya planning to do EGD. (10) Hypokalemia Status: Resolved Assessment & Plan: Replace and recheck. (11) Lactic acidosis Status: Resolved Assessment & Plan: Unclear etiology with no source of infection. Improved with IVF. Denies abdominal pain to suggest ischemia. (12) Diabetes mellitus, type 2 Status: Chronic Assessment & Plan: Diabetic diet when taking oral. Sliding scale insulin. 07/21: A1c 7.9%; BS running 200-300, will add Glyburide 2.5 mg daily Qualifiers: (13) Right foot drop Status: Acute Assessment & Plan: MRI showed only lumbar spondylosis. No clear explanation for his foot drop. 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 (14) Poor appetite Status: Acute Assessment & Plan: Denies pain, concern for underlying serious condition given his anemia and weakness. Endoscopy recommended in vs outpatient depending on course. 07/08 EGD today 07/09 EGD yesterday with ulcers, treating with pantoprazole and sucralfate, biopsies pending (15) Leg weakness, bilateral Status: Acute Assessment & Plan: PT. (16) BPH (benign prostatic hyperplasia) Status: Chronic Assessment & Plan: Previously on medication, he stopped due to side effects. Qualifiers: (17) PTSD (post-traumatic stress disorder) Status: Chronic Assessment & Plan: Resume home medications. (18) COPD (chronic obstructive pulmonary disease) Status: Chronic Assessment & Plan: Resume home inhalers (19) DVT prophylaxis Status: Acute Assessment & Plan: No pharmacologic ppx with active bleed. SCDs. Clinical Quality Measures DVT/VTE Risk/Contraindication: Risk Factor Score Per Nursin RFS Level Per Nursing on Admit: 4+=Very High RABIA COLEMAN MD Jul 25, 2018 08:32
[2018-07-25] MEDS: ASPIRIN E.C. 81 MG (ECOTRIN) TAB PO SCH (09:13)
[2018-07-25] MEDS: FUROSEMIDE 40 MG/4 ML INJ (LASIX) IVP SCH (09:13)
[2018-07-25] MEDS: ALPRAZolam 0.5 MG (XANAX) TAB PO SCH ×2 (09:13→21:21)
[2018-07-25] MEDS: PANTOPRAZOLE 40 MG (PROTONIX) TAB PO SCH ×2 (09:13→21:22)
[2018-07-25] MEDS: TICAGRELOR 90 MG TABLET (BRILINTA) PO SCH ×2 (09:13→21:27)
[2018-07-25] MEDS: PARoxetine 20 MG (PAXIL) TAB PO SCH ×2 (09:14→21:21)
[2018-07-25] MEDS: SENNA W/DOCUSATE (SENOKOT S) TABLET PO SCH ×2 (09:15→21:38)
[2018-07-25] MEDS: POLYETHYLENE GLYCOL 17 GM (MIRALAX) PACK PO SCH ×2 (09:15→21:37)
[2018-07-25] MEDS: NICOTINE 21 MG (NICODERM) PATCH TD SCH (09:16)
--- NOTE | 2018-07-25 09:25 | Cardiology Progress Note ---
Subjective Date Seen by Provider: Jul 25, 2018 Time Seen by Provider: 09:23 Subjective/Events-last exam Patient is laying down in bed, still having blood in his stool, no chest pain Review of Systems General: No Chills, No Night Sweats, No Fatigue, No Malaise, No Appetite, No Other HEENT: No Head Aches, No Visual Changes, No Eye Pain, No Ear Pain, No Dysphasia , No Sinus Congestion, No Post Nasal Drip, No Sore Throat, No Other Pulmonary: Dyspnea; No Cough, No Pleuritic Chest Pain, No Other Cardiovascular: No: Chest Pain, Palpitations, Orthopnea, Paroxysmal Noc. Dyspnea, Edema, Lt Headedness, Other Focused Exam Time of Focused Exam: 07:40 Objective-Cardiology Exam Last Set of Vital Signs Vital Signs 07/20/18 07/25/18 07/25/18 10:54 08:26 09:24 Temp 98.9 Pulse 86 Resp 22 B/P (MAP) 105/59 (74) Pulse Ox 97 O2 Delivery Nasal Cannula O2 Flow Rate 3.00 FiO2 35 Capillary Refill : Less Than 3 SecondsLess Than 3 Seconds I&O Intake and Output 07/25/18 00:00 Intake Total 1397 ml Output Total 1300 ml Balance 97 ml Intake Oral 1397 ml Output Urine Total 1300 ml # Voids 1 General: No Acute Distress HEENT: Atraumatic, PERRLA, Mucous Memb Moist/[place] Neck: Supple Lungs: Clear to Auscultation Heart: Regular Rate Abdomen: Soft, No Tenderness Extremities: No Clubbing, Other (mild edema) Skin: No Rashes Neuro: Normal Gait, Normal Speech, Sensation Intact, Cranial Nerves 3-12 NL Psych/Mental Status: Mental Status NL Results Lab Laboratory Tests 07/25/18 05:05 A/P-Cardiology Admission Diagnosis Acute respiratory failure GI bleed Coronary artery disease Congestive heart failure, acute on chronic left ventricular systolic dysfunction , ischemic cardiomyopathy Assessment/Plan Status post acute respiratory failure, pulmonary edema, improved, feeling better at this time. Continue to monitor, continue on Lasix. Recent GI bleeding, on PPI and sucrafate. Peptic ulcer disease, still having blood in his stool, managed by Dr. Acharya. Hypokalemia, replace and monitor Severe dilated cardiomyopathy, acute on chronic left ventricular systolic dysfunction, ischemic cardiomyopathy, LVEF on Echo 25% with anterior/apical hypokinesis. Currently compensated left ventricular systolic dysfunction. Continue to monitor Chest pain nonspecific etiology secondary to extensive coronary artery disease as described below, given sublingual nitroglycerin yesterday and reported improvement. Continue to monitor Coronary angiography revealed a chronically total occlusion of the RCA. Collaterals from the left circumflex artery. Moderate left circumflex artery stenosis. Severe LAD stenosis treated successfully with drug-eluting stents. LVEDP 28 mmHg. continue to monitor Life vest for primary prevention of sudden cardiac , dilated cardiomyopathy. Patient is wearing a LifeVest. Smoking - smoking cessation was strongly recommended. Hypertension, currently borderline hypotensive secondary to medication, continue to monitor blood pressure DM, continue metformin for now. Hyperlipidemia, statin therapy. CKD; Diabetic nephropathy likely. Resting Leg discomfort, lifestyle limiting claudication, bilateral significant PAD. 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 Acute diastolic CHF, pseudonormal diastolic dysfunction. caution with IV fluids. Pulmonary HTN, likely secondary to COPD. COPD, defer to primary team. Clinical Quality Measures DVT/VTE Risk/Contraindication: Risk Factor Score Per Nursin RFS Level Per Nursing on Admit: 4+=Very High LINDA HASSAN MD Jul 25, 2018 09:25
[2018-07-25] MEDS: diphenhydrAMINE 25 MG TAB (BENADRYL) PO PRN (09:26)
[2018-07-25] MEDS: PATCH REMOVAL TP SCH (09:27)
[2018-07-25] MEDS ORDERED: KCL 20 MEQ TAB (K-DUR) PO NR (09:32)
[2018-07-25] MEDS: MENTHOL/ZINC OXIDE (CALMOSEPTINE) 113 GM TUBE TOP SCH ×2 (09:38→21:41)
[2018-07-25] MEDS: lisINopril 5 MG (PRINIVIL) TABLET PO SCH (09:48)
[2018-07-25] MEDS: BENZONATATE 100 MG (TESSALON) CAPSULE PO PRN (12:04)
[2018-07-25] MEDS: POTASSIUM CL 10MEQ/50ML IVPB 50 ML IV SCH ×4 (12:14→17:31)
--- NOTE | 2018-07-25 12:51 | Progress Note-Standard ---
Standard Progress Note Progress Notes/Assess & Plan Date Seen by a Provider: Jul 25, 2018 Time Seen by a Provider: 12:50 Progress/Assessment & Plan no more melena. Hemodynamics reasonably stable. Hemoglobin 8.9. Abdomen soft Dark stools reported with no fresh bleeding. Hb 8. Will continue observation Final Diagnosis Upper GI bleeding Focused Exam Time of Focused Exam: 07:40 ALFREDO VILLEDA MD Jul 25, 2018 12:51
[2018-07-25] MEDS: ACETAMINOPHEN 500 MG TAB (TYLENOL) PO PRN (15:35)
[2018-07-25] MEDS ORDERED: NS IV 500 ML 500 ML ONE (16:26)
[2018-07-25] MEDS: TAMSULOSIN 0.4 MG (FLOMAX) CAP PO SCH (17:01)
[2018-07-25] MEDS: ATORVASTATIN 80 MG (LIPITOR) TABLET PO SCH (21:21)
[2018-07-26] VITALS (8 sets, daily range): BP systolic 92–109; BP diastolic 55–65
[2018-07-26] MEDS: RT-ALBUTEROL SULF 2.5 MG/3 ML PRE-MIX VIAL INH SCH ×6 (01:33→22:10)
[2018-07-26 05:00] LABS: HEMOGLOBIN 8.2 G/DL (13.3-17.7); MEAN PLATELET VOLUME 9.3 FL (7.4-10.4); RED BLOOD COUNT 2.68 10^6/uL (4.35-5.85); RED CELL DISTRIBUTION WIDTH 15.7 % (10.0-14.5); WHITE BLOOD COUNT 6.6 10^3/uL (4.3-11.0)
[2018-07-26 05:19] LABS: ALANINE AMINOTRANSFERASE 22 U/L (0-55); ALBUMIN 2.8 GM/DL (3.2-4.5); ALKALINE PHOSPHATASE 90 U/L (40-136); BILIRUBIN,TOTAL 0.6 MG/DL (0.1-1.0); BUN/CREATININE RATIO 17; CALCIUM 8.3 MG/DL (8.5-10.1); CARBON DIOXIDE 24 MMOL/L (21-32); CHLORIDE 101 MMOL/L (98-107); CREATININE SERUM 0.86 MG/DL (0.60-1.30); GFR ESTIMATED > 60; GLUCOSE 157 MG/DL (70-105); MAGNESIUM 1.7 MG/DL (1.8-2.4); POTASSIUM 3.5 MMOL/L (3.6-5.0); SODIUM 135 MMOL/L (135-145); TOTAL PROTEIN 4.7 GM/DL (6.4-8.2)
[2018-07-26] MEDS: CATHETER FLUSH 10 ML SYR IV SCH ×3 (05:37→22:59)
[2018-07-26] MEDS: SUCRALFATE 1 GM (CARAFATE) TAB PO SCH ×4 (05:37→21:41)
[2018-07-26] MEDS: NYSTATIN ORAL SUSP 5 ML UDC PO SCH ×3 (05:37→17:14)
[2018-07-26] MEDS: inSUlin ASPART (NovoLOG) 1 UNIT/0.01 ML (CHARGE PER UNIT) SC SCH ×4 (05:40→21:39)
[2018-07-26] MEDS: RT-ADVAIR HFA 115/21 MCG PER PUFF IH SCH ×2 (07:06→19:33)
--- NOTE | 2018-07-26 07:06 | Pulmonary Progress Note ---
Subjective Time Seen by a Provider: 07:07 Subjective/Events-last exam Pulmonary steel pt is doing well. He does need 24/7 3liters of oxygen at baseline. Sepsis Event Evaluation Height, Weight, BMI Height: 5'7.00" Weight: 128lbs. 7.0oz. 58.509349mv; 24.3 BMI Method:Stated Focused Exam Time of Focused Exam: 07:40 Exam Exam Vital Signs Date Time Temp Pulse Resp B/P (MAP) Pulse Ox O2 Delivery O2 Flow Rate FiO2 07/26/18 01:33 95 Nasal Cannula 2.00 07/26/18 01:00 86 07/26/18 00:08 97.5 80 18 99/56 (70) 95 Nasal Cannula 3.00 07/25/18 21:43 97 Nasal Cannula 2.00 07/25/18 21:00 Nasal Cannula 2.00 07/25/18 19:50 97.8 78 20 87/49 (62) 95 Nasal Cannula 3.00 07/25/18 19:11 78 07/25/18 18:59 Nasal Cannula 2.00 07/25/18 18:54 98 Nasal Cannula 3.00 07/25/18 16:15 96.7 78 20 109/57 (74) 98 Nasal Cannula 3.00 07/25/18 14:44 97 Nasal Cannula 3.00 07/25/18 13:00 84 07/25/18 12:11 98.9 80 20 122/62 (82) 96 Nasal Cannula 3.00 07/25/18 11:01 92 Nasal Cannula 3.00 07/25/18 09:42 98.6 85 20 128/67 (87) 97 Nasal Cannula 3.00 07/25/18 09:24 Nasal Cannula 3.00 07/25/18 08:55 Nasal Cannula 3.00 07/25/18 08:26 98.9 86 22 105/59 (74) 97 High Flow N/C 4.00 07/25/18 07:51 94 Nasal Cannula 3.00 I & O 07/26/18 07:00 Intake Total 2180 ml Output Total 1725 ml Balance 455 ml Height & Weight Height: 5'7.00" Weight: 128lbs. 7.0oz. 58.743647fc; 24.3 BMI Method:Stated General Appearance: No Apparent Distress, WD/WN, Chronically ill, Thin HEENT: PERRL/EOMI; No Scleral Icterus (L), No Scleral Icterus (R) Neck: Non Tender Respiratory: Chest Non Tender, No Accessory Muscle Use, No Respiratory Distress Cardiovascular: Regular Rate, Rhythm, Normal Peripheral Pulses Capillary Refill: Less Than 3 Seconds Gastrointestinal: non tender, soft, no organomegaly, no pulsatile mass Extremity: Non Tender, Swelling (Bilateral lower extremity minimal) Neurologic/Psychiatric: Alert, Oriented x3, No Motor/Sensory Deficits, Normal Mood/Affect Skin: Normal Color, Warm/Dry Results Lab Laboratory Tests 07/24/18 08:10 07/25/18 05:05 07/26/18 04:30 Assessment/Plan Assessment/Plan Pulmonary edema with severe dilated cardiomyopathy EF 25% -Life vest -Cardiology following -Lasix Anemia with recurrent GIB and gastric ulcers s/p transfusion -Surgery is following -Serial H&H -Pt is on Brilinta and ASA -Cardiology following -Monitor closely Hypotension -improved this morning SOB - improved Hx of COPD -SVNS, advair oxygen CKD Tobacco use Aortic insufficiency ASD, Pulmonary HTN COPD Respiratory steel pt is at baseline. He does need 24/7 3liters of oxygen at baseline. Dr. Acharya is following pt for GIB. I am going to sign off please call with any questions and if SOB worsens. I will follow patient after discharge. MALGORZATA SUMNER DO Jul 26, 2018 07:06
[2018-07-26] MEDS: UMECLIDINIUM BROMIDE (INCRUSE ELLIPTA) 7'S IH SCH (07:07)
[2018-07-26] MEDS ORDERED: MAGNESIUM 1 GM/100 ML IVPB 100 ML IV NR (09:00)
[2018-07-26] MEDS: PARoxetine 20 MG (PAXIL) TAB PO SCH ×2 (09:35→21:40)
[2018-07-26] MEDS: PANTOPRAZOLE 40 MG (PROTONIX) TAB PO SCH ×2 (09:36→21:40)
[2018-07-26] MEDS: ALPRAZolam 0.5 MG (XANAX) TAB PO SCH ×2 (09:36→21:41)
[2018-07-26] MEDS: SENNA W/DOCUSATE (SENOKOT S) TABLET PO SCH ×2 (09:36→22:59)
[2018-07-26] MEDS: NICOTINE 21 MG (NICODERM) PATCH TD SCH (09:37)
[2018-07-26] MEDS: PATCH REMOVAL TP SCH (09:37)
[2018-07-26] MEDS: lisINopril 5 MG (PRINIVIL) TABLET PO SCH (09:37)
[2018-07-26] MEDS: POTASSIUM CL 10MEQ/50ML IVPB 50 ML IV SCH ×2 (09:41→11:02)
[2018-07-26] MEDS: FUROSEMIDE 40 MG/4 ML INJ (LASIX) IVP SCH (09:41)
[2018-07-26] MEDS: POLYETHYLENE GLYCOL 17 GM (MIRALAX) PACK PO SCH ×2 (09:41→22:59)
[2018-07-26] MEDS: TICAGRELOR 90 MG TABLET (BRILINTA) PO SCH ×2 (09:41→21:39)
[2018-07-26] MEDS ORDERED: NS IV 500 ML 500 ML ONE (09:51)
[2018-07-26] MEDS: ASPIRIN E.C. 81 MG (ECOTRIN) TAB PO SCH (09:51)
[2018-07-26] MEDS: diphenhydrAMINE 25 MG TAB (BENADRYL) PO PRN (10:01)
--- NOTE | 2018-07-26 10:55 | Physical Therapy Daily Note ---
PT Daily Note-Current Subjective Pt awake in bed and refused to get up and walk. Pt agreed to perform exercises for PT. Pain Numeric Pain Scale: 0-No Pain Location: No Pain Reported Mental Status Patient Orientation: Normal For Age Attachments: [place] Catheter, IV Transfers Therapy Code Descriptions/Definitions Functional [place] Measure: 0=Not Assessed/NA 4=Minimal Assistance 1=Total Assistance 5=Supervision or Setup 2=Maximal Assistance 6=Modified [place] 3=Moderate Assistance 7=Complete [place] Therapy Quality Codes: 6 Independent with activity with or without an assistive device 5 Patient requires set up or clean up by helper. Patient completes activity by themselves 4 Supervision or touching assist (CGA). [place] provide cues , steadying assist 3 The helper provides less than half the effort to complete the activity 2 The helper provides more than half the effort to complete the activity 1 Dependent. The helper does all the effort to complete an activity 7 Patient refused to complete or attempt activity 9 The patient did not perform the activity before the current illness or injury 88 Not attempted due to Medical conditions or safety concerns Weight Bearing Right Lower Extremity: Right Full Weight Bearing Left Lower Extremity: Left Full Weight Bearing Exercises Supine Ex: Quad Set, Heel Slides, Knee to chest, Straight leg raise, Hip abd/ add Supine Reps: 20 Assessment Pt able to perform LE exercises in bed but needed breaks throughout to catch his breath. PT will continue therapy to maintain current level of function. PT Short Term Goals Short Term Goals Time Frame: Jul 15, 2018 PT Director Of Infection Prevention Goals Correction Goals PT Correction Goals Time Frame: Jul 14, 2018 Transfers (B,C,W/C) (FIM): 6 Gait (FIM): 6 Gait distance (FIM): 3=150 ft Gait Level of Assist: 6 Gait Assistive Device: FWW PT Plan Problem List Problem List: Activity Tolerance, Functional Strength, Safety, Balance, Gait, Transfer, Bed Mobility Treatment/Plan Treatment Plan: Continue Plan of Care Treatment Plan: Bed Mobility, Education, Functional Activity Michel, Functional Strength, Gait, Safety, Therapeutic Exercise, Transfers Treatment Duration: Jul 24, 2018 Frequency: 6 times per week Estimated Hrs Per Day: .5 hour per day Patient and/or Family Agrees t: Yes Time/GCodes Time In: 1023 Time Out: 1032 Total Billed Treatment Time: 9 Total Billed Treatment 1 Visit EX- 9YONG CAMACHO PT Jul 26, 2018 10:55
--- NOTE | 2018-07-26 11:55 | Cardiology Progress Note ---
Cardiology SOAP Progress Note Subjective: No cardiac complaints. Objective: I&O/Vital Signs 07/26/18 07/26/18 07/26/18 07/26/18 00:08 01:00 01:33 04:00 Temp 97.5 97.8 Pulse 80 86 87 Resp 18 20 B/P (MAP) 99/56 (70) 106/61 (76) Pulse Ox 95 95 97 O2 Delivery Nasal Cannula Nasal Cannula Nasal Cannula O2 Flow Rate 3.00 2.00 2.00 07/26/18 07/26/18 07/26/18 07/26/18 07:00 07:07 07:12 07:13 Pulse 93 Pulse Ox 95 O2 Delivery Nasal Cannula Nasal Cannula Nasal Cannula O2 Flow Rate 2.00 2.00 2.00 07/26/18 07/26/18 07/26/18 07/26/18 08:00 09:00 10:00 11:29 Temp 97.4 97.8 Pulse 98 91 Resp 20 20 B/P (MAP) 100/60 (73) 100/60 (73) Pulse Ox 92 95 96 O2 Delivery Nasal Cannula Nasal Cannula Nasal Cannula Nasal Cannula O2 Flow Rate 2.00 3.00 2.00 2.00 07/26/18 00:00 Intake Total 1880 ml Output Total 1725 ml Balance 155 ml Weight (Pounds): 128 Weight (Ounces): 0.0 Weight (Calculated Kilograms): 58.424575 Constitutional: appears stated age, AAO x 3; No apparent distress; well- developed, well-nourished Respiratory: No accessory muscle use, No respiratory distress, No chest tender , No chest expansion is symmetric; chest is bilaterally symmetric; No lungs clear to percussion; crackles; No rhonchi, No rales, No stridor, No wheezing, No pleural rub, No other Cardiovascular: regular rate-rhythm; No irregularly irregular, No extra beats, No parasternal heave is noted, No JVD, No edema, No bradycardia, No tachycardia , No point of maximal impulse, No cardiac thrills are palpable; S1 and S2; No gallop/S3, No gallop/S4, No diastolic murmur, No systolic murmur, No friction rub, No click, No other Gastrointestional: No tender, No soft, No round, No distended, No pulsatile mass, No organomegaly, No guarding, No rebound, No tenderness, No hernia, No mass, No audible bowel sounds, No abnormal bowel sounds, No abdominal bruits, No spleenomegaly, No other Extremities: pedal edema; No clubbing, No cyanosis, No significant edema Neurologic/Psychiatric: no motor/sensory deficits, alert, normal mood/affect, oriented x 3, power is 5/5 both on sides Skin: No normal color, No warm/dry, No cyanosis, No cool, No diaphoresis, No damp, No ecchymosis, No jaundice, No mottled; pallor; No rash, No tattoos/ piercings, No ulcerations, No rash on exposed areas, No ulcerations on exposed areas, No other Results/Procedures: Labs Laboratory Tests 07/25/18 16:11: Glucometer 211H 07/25/18 20:54: Glucometer 231H 07/26/18 04:30: White Blood Count 6.6, Red Blood Count 2.68L, Hemoglobin 8.2L, Hematocrit 25L, Mean Corpuscular Volume 94, Mean Corpuscular Hemoglobin 31, Mean Corpuscular Hemoglobin Concent 32, Red Cell Distribution Width 15.7H, Platelet Count 265, Mean Platelet Volume 9.3, Sodium Level 135, Potassium Level 3.5L, Chloride Level 101, Carbon Dioxide Level 24, Anion Gap 10, Blood Urea Nitrogen 15, Creatinine 0.86, Estimat Glomerular Filtration Rate > 60, BUN/Creatinine Ratio 17, Glucose Level 157H, Calcium Level 8.3L, Corrected Calcium 9.3, Magnesium Level 1.7L, Total Bilirubin 0.6, Aspartate Amino Transf (AST/SGOT) 21, Alanine Aminotransferase (ALT/SGPT) 22, Alkaline Phosphatase 90, Total Protein 4.7L, Albumin 2.8L 07/26/18 05:20: Glucometer 170H 07/26/18 11:25: Glucometer 255H Microbiology 07/07/18 Blood Culture - Final, Complete No growth 07/16/18 MRSA Screen - Final, Complete MRSA not isolated 07/06/18 Urine Culture - Final, Complete NO GROWTH A/P: Assessment/Dx: Acute respiratory failure, pulmonary edema, improved. Worsening anemia, Recent GI bleeding, Severe Peptic ulcer disease, Severe dilated cardiomyopathy, Smoking, HTN, DM, Hyperlipidemia, Hypokalemia, CKD, Leg discomfort, Aortic insufficiency, ASD, Acute diastolic CHF, Pulmonary HTN, COPD Plan: Acute respiratory failure, pulmonary edema, chest x-ray shows pulmonary edema, increased BNP. Continue IV Lasix. Recent GI bleeding, on PPI and sucrafate. received PRBCs this morning. Hemoglobin dropped again after transfusion overnight. Likely GI bleeding. Dr. Acharya following. EGD - Duodenal ulcer bleed - treated with cautery/clip. Severe Peptic ulcer disease, Severe dilated cardiomyopathy, LVEF on Echo 25% with anterior/apical hypokinesis. very likely due to CAD. 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 Collaterals from the left circumflex artery. Moderate left circumflex artery stenosis. Severe LAD stenosis treated successfully with drug-eluting stents. LVEDP 28 mmHg. Lifevest for primary prevention of sudden cardiac , dilated cardiomyopathy. Patient is wearing a LifeVest. Smoking - smoking cessation was strongly recommended. HTN, lisinopril and BB. DM, continue metformin for now. Hyperlipidemia, statin therapy. Hypokalemia, CKD; Diabetic nephropathy likely. Resting Leg discomfort, lifestyle limiting claudication, bilateral significant PAD. Aortic insufficiency, follow clinically. 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 Acute diastolic CHF, pseudonormal diastolic dysfunction. caution with IV fluids. Pulmonary HTN, likely secondary to COPD. COPD, defer to primary team. Thank you for your consultation. Please call me if you have any questions. Kusum Chandra MD, FACP, FACC, FSCAI, FHRS, CCDS Interventional Cardiology Cardiac Electrophysiology Vascular Medicine and Endovascular Interventions Focused Exam Time of Focused Exam: 07:40 Jose CHANDRA MD Jul 26, 2018 11:55 am
--- NOTE | 2018-07-26 11:59 | Occupational Ther Daily Note ---
OT Current Status-Daily Note Subjective Pt alert, lying in bed. Pt states that "I am bleeding again." He declines to get out of bed or complete ADLs. Mental Status/Objective Patient Orientation: Person, Place, Time, Situation Therapy Code Descriptions/Definitions Functional [place] Measure: 0=Not Assessed/NA 4=Minimal Assistance 1=Total Assistance 5=Supervision or Setup 2=Maximal Assistance 6=Modified [place] 3=Moderate Assistance 7=Complete [place] Attachments: IV, Oxygen ADL-Treatment Pt stated that he wants to wait to take a bath until later tonight. Other Treatment Pt able to roll side to side and hold each side to place pad under pt. Pt declined to stay laying on a side. Pt assisted with pulling self up in bed by bending knees and pushing with feet. Pt demonstrated ability to open small packages for fine motor coordination and strength. After therapy, pt lying in bed with call light/phone in reach. All needs met in room. OT Short Term Goals Short Term Goals 1=Demonstrate adherence to instructed precautions during ADL tasks. 2=Patient will verbalize/demonstrate understanding of assistive devices/ modifications for ADL. 3=Patient will improve strength/tolerance for activity to enable patient to perform ADL's. OT Penitentiary Goals Die Polisher Goals Time Frame: Aug 11, 2018 Eating (FIM): 7 Grooming(FIM): 6 Bathing(FIM): 6 Upper Body Dressing(FIM): 6 Lower Body Dressing(FIM): 6 Toileting(FIM): 6 Toilet/Commode Transfer(FIM): 6 Shower Transfer(FIM): 6 Additional Goals: 1-Demonstrate ADL Tasks, 2-Verbalize Understanding, 3- ImproveStrength/Michel 1=Demonstrate adherence to instructed precautions during ADL tasks. 2=Patient will verbalize/demonstrate understanding of assistive devices/ modifications for ADL. 3=Patient will improve strength/tolerance for activity to enable patient to perform ADL's. OT Education/Plan Problem List/Assessment Pt would benefit from skilled Ot to increase his independence in basic self care to allow him to return to his apartment to live independently Discharge Recommendations Plan/Recommendations: Continue POC Treatment Plan/Plan of Care Patient would benefit from OT for education, treatment and training to promote independence in ADL's, mobility, safety and/or upper extremity function for ADL' s. Plan of Care: ADL Retraining, Functional Mobility, UE Funct Exercise/Act, UE Neuromus Re-Ed/Coord, OTHER (energy conservation education and practice) Treatment Duration: Aug 11, 2018 Frequency: 5 times per week Estimated Hrs Per Day: .5 hour per day Agreement: Yes Rehab Potential: Good Time/GCodes Start Time: 11:45 Stop Time: 11:55 Total Time Billed (hr/min): 10 Billed Treatment Time 1 visit-FA 1 (10 min) CALIXTO DOMÍNGUEZ Jul 26, 2018 11:59
[2018-07-26] MEDS: MENTHOL/ZINC OXIDE (CALMOSEPTINE) 113 GM TUBE TOP SCH ×2 (12:19→21:39)
[2018-07-26 12:35] LABS: HEMOGLOBIN 8.3 G/DL (13.3-17.7)
--- NOTE | 2018-07-26 16:25 | Progress Note (SOAP) ---
Subjective Subjective/Events-last exam Hypotensive overnight. Complaining of cough. Review of Systems Date Seen by Provider: Jul 26, 2018 Time Seen by Provider: 09:30 Focused Exam Time of Focused Exam: 07:40 Objective Exam Last Set of Vital Signs Vital Signs Date Time Temp Pulse Resp B/P (MAP) Pulse Ox O2 Delivery O2 Flow Rate FiO2 07/26/18 15:18 94 Nasal Cannula 2.00 07/26/18 14:00 97.0 86 20 100/62 (75) 07/20/18 10:54 35 Capillary Refill : Less Than 3 SecondsLess Than 3 Seconds I&O Intake and Output 07/26/18 00:00 Intake Total 2330 ml Output Total 2075 ml Balance 255 ml Intake Oral 2330 ml Output Urine Total 2075 ml # Bowel Movements 2 General: Alert Lungs: Clear to Auscultation Heart: Regular Rate Psych/Mental Status: Mental Status NL Results/Procedures Lab Laboratory Tests 07/25/18 20:54: Glucometer 231H 07/26/18 04:30: White Blood Count 6.6, Red Blood Count 2.68L, Hemoglobin 8.2L, Hematocrit 25L, Mean Corpuscular Volume 94, Mean Corpuscular Hemoglobin 31, Mean Corpuscular Hemoglobin Concent 32, Red Cell Distribution Width 15.7H, Platelet Count 265, Mean Platelet Volume 9.3, Sodium Level 135, Potassium Level 3.5L, Chloride Level 101, Carbon Dioxide Level 24, Anion Gap 10, Blood Urea Nitrogen 15, Creatinine 0.86, Estimat Glomerular Filtration Rate > 60, BUN/Creatinine Ratio 17, Glucose Level 157H, Calcium Level 8.3L, Corrected Calcium 9.3, Magnesium Level 1.7L, Total Bilirubin 0.6, Aspartate Amino Transf (AST/SGOT) 21, Alanine Aminotransferase (ALT/SGPT) 22, Alkaline Phosphatase 90, Total Protein 4.7L, Albumin 2.8L 07/26/18 05:20: Glucometer 170H 07/26/18 11:25: Glucometer 255H 07/26/18 12:25: Hemoglobin 8.3L, Hematocrit 26L 07/26/18 16:09: Glucometer 197H Microbiology 07/07/18 Blood Culture - Final, Complete No growth 07/16/18 MRSA Screen - Final, Complete MRSA not isolated 07/06/18 Urine Culture - Final, Complete NO GROWTH Radiology Assessment/Plan Assessment/Plan Assessment & Plan (1) Acute and chronic respiratory failure with hypoxia Status: Acute Assessment & Plan: 07/17: Arely consulted today, encourage patient to continue with Aerobike at least every hr, encouraged getting to edge of bed, will titrate as tolerated 07/18: Continue lasix for pulmonary edema, will titrate as tolerated 07/21: improved; down to 2.5L HF NC 07/26 stable on 2 lpm supplemental oxygen (2) Pulmonary edema cardiac cause Status: Acute Assessment & Plan: 07/17: Dr Chandra added lasix today, will diuresis and monitor renal function 07/21: improved (3) GI bleed Status: Resolved Assessment & Plan: Pt required another unit of PRBCs last night; Hgb stable for now. EGD with Patrizia today. Consider colonoscopy outpatient, should EGD come back negative. 07/09- EGD yesterday with large ulcers, not actively bleeding. Added sucralfate to pantoprazole but hemoglobin below 6 again this am. 2 units PRBCs, f/u after. 07/10- No vomiting, Hgb stable since transfusion, if continues to be stable would be stable for cath Thursday, Will advance diet today per surgery recommendations 07/11- Hgb stable, Will get retic count today, Start Fe infusions 07/12- Hgb stable today, will discuss case with surgery to see how long they would like to wait for cath, IV iron 07/13: Hgb Stable, continue IV iron 07/14: Hgb down today, discussed with Dr Acharya and will continue to monitor, Continue IV iron 07/15: Hgb up today, continue IV iron replacement 07/16: Hgb stable, continue IV Iron, cath today 07/17: Stable 07/21 - Medically stable but continued weakness and limited ambulation. Will do OT eval. Consult for SNU. Anticipate DC to [facility] by Thursday. Plan for PVD intervention by Dr. Chandra after discharge, possibly next week. 07/22 - Hb down from 8 to 6.7 - transfuse 2U prbc, will recheck H/H. Per Dr. Acharya if Hb continues to drop will do EGD. Plan to hold transfer to SNU until Thursday if patient stabilizes. 07/23 - Hb 9.3 after transfusion, back down to 7.8 this am. Will transfuse another [address] Acharya planning to do EGD. Dr. Fox to assume care for the weekend. 07/24/2018 -hemoglobin yesterday at 530 p.m. was 8.9 We will plan on rechecking this In the morning of July 25. It appears that he is not actively bleeding. I spoke with Dr. Acharya and we will go ahead and start clear liquid diet this morning 07/25/2018 - hemoglobin this morning was noted to be 8.0. This is a drop from 8.9. His hemoglobin will be rechecked in the morning. Also surgical input today. We'll defer on advancing diet until surgical evaluation today. 07/26- hypotensive overnight but hgb stable, will follow q6 today Qualifiers: Qualified Codes: K92.2 - Gastrointestinal hemorrhage, unspecified (4) Urinary retention due to benign prostatic hyperplasia Status: Resolved Assessment & Plan: Catheter placed 07/07 due to significant retention. 07/08 start Flomax, may need to d/c with liriano depending on course. 07/15: D/c liriano today (5) Acute systolic CHF (congestive heart failure) Status: Acute Assessment & Plan: 07/10: Echo with EF 25%, plan for cath when anemia is stable 07/11: Discussed case with cardiology, waiting to get cath procedure done 07/13: Cath to be done Thursday or Sunday 07/15: Plan for cath tomorrow 07/16: Cath today with stents placed 07/17: Dr Chandra has ordered lifevest for patient 07/21 : Lifevest in place; pt has had some discharges overnight, being managed by Dr. Chandra (6) Debility Assessment & Plan: PT/OT, Will need rehab vs SNF following hospitalization 07/18: Will consult Rehab 07/21: SW working on placement for [facility]; consult in to [facility] (7) Hyperglycemia Status: Acute Assessment & Plan: sliding scale insulin, diabetic diet when taking PO 07/10: A1c pending See DMII (8) Lower extremity edema Status: Acute Assessment & Plan: Venous insufficiency/immobility versus related to his kidney function. Consider echocardiogram pending clinical course. 07/09- complaining of cough as well, will obtain echocardiogram 07/10- Abnormal echo, EF 25%, cardiology following 07/12: Discussed the importance of activity, getting to edge of bed, leg exercises and elevation of feet 07/14: Patient up in chair today (9) Severe anemia Status: Acute Assessment & Plan: Pt required another unit of PRBCs last night. EGD with Patrizia today. Consider colonscopy outpatient, should EGD come back negative. 07/09- hgb below 6 this am, 2 units prbc today, repeat hemoglobin after. 07/22 - Hb down from 8 to 6.7 - transfuse 2U prbc, will recheck H/H. Per Dr. Acharya if Hb continues to drop will do EGD. Plan to hold transfer to SNU until Thursday if patient stabilizes. 07/23 - Hb 9.3 after transfusion, back down to 7.8 this am. Will transfuse another [address] Acharya planning to do EGD. (10) Hypokalemia Status: Resolved Assessment & Plan: Replace and recheck. (11) Lactic acidosis Status: Resolved Assessment & Plan: Unclear etiology with no source of infection. Improved with IVF. Denies abdominal pain to suggest ischemia. (12) Diabetes mellitus, type 2 Status: Chronic Assessment & Plan: Diabetic diet when taking oral. Sliding scale insulin. 07/21: A1c 7.9%; BS running 200-300, will add Glyburide 2.5 mg daily Qualifiers: (13) Right foot drop Status: Acute Assessment & Plan: MRI showed only lumbar spondylosis. No clear explanation for his foot drop. 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 (14) Poor appetite Status: Acute Assessment & Plan: Denies pain, concern for underlying serious condition given his anemia and weakness. Endoscopy recommended in vs outpatient depending on course. 07/08 EGD today 07/09 EGD yesterday with ulcers, treating with pantoprazole and sucralfate, biopsies pending Bx with esophagitis, no H pylori (15) Leg weakness, bilateral Status: Acute Assessment & Plan: PT. (16) BPH (benign prostatic hyperplasia) Status: Chronic Assessment & Plan: Previously on medication, he stopped due to side effects. Qualifiers: (17) PTSD (post-traumatic stress disorder) Status: Chronic Assessment & Plan: Resume home medications. (18) COPD (chronic obstructive pulmonary disease) Status: Chronic Assessment & Plan: Resume home inhalers (19) DVT prophylaxis Status: Acute Assessment & Plan: No pharmacologic ppx with active bleed. SCDs. Clinical Quality Measures DVT/VTE Risk/Contraindication: Risk Factor Score Per Nursin RFS Level Per Nursing on Admit: 4+=Very High JOHN VILLALPANDO MD Jul 26, 2018 16:25
[2018-07-26] MEDS: TAMSULOSIN 0.4 MG (FLOMAX) CAP PO SCH (17:20)
[2018-07-26 18:20] LABS: HEMOGLOBIN 7.9 G/DL (13.3-17.7)
--- NOTE | 2018-07-26 19:21 | Progress Note ---
Subjective Date Seen by a Provider: Jul 26, 2018 Time Seen by a Provider: 12:59 Subjective/Events-last exam Patient with some black stools. He denies any abdominal pain. Just overall not feeling too well though. His hemoglobin has been stable last couple of blood draws. He was hypotensive overnight. Has no new complaints. Denies fever sweats chills or chest pain Focused Exam Time of Focused Exam: 07:40 Objective Exam Vital Signs Date Time Temp Pulse Resp B/P (MAP) Pulse Ox O2 Delivery O2 Flow Rate FiO2 07/26/18 16:00 97.5 91 16 92/55 (67) 94 Nasal Cannula 3.00 07/26/18 15:18 94 Nasal Cannula 2.00 07/26/18 14:00 97.0 86 20 100/62 (75) 97 Nasal Cannula 2.00 07/26/18 13:00 86 07/26/18 12:00 96.9 92 20 104/65 (78) 97 Nasal Cannula 2.00 07/26/18 11:29 96 Nasal Cannula 2.00 07/26/18 10:00 97.8 91 20 100/60 (73) 95 Nasal Cannula 2.00 07/26/18 09:00 Nasal Cannula 3.00 07/26/18 08:00 97.4 98 20 100/60 (73) 92 Nasal Cannula 2.00 07/26/18 07:13 Nasal Cannula 2.00 07/26/18 07:12 Nasal Cannula 2.00 07/26/18 07:07 95 Nasal Cannula 2.00 07/26/18 07:00 93 07/26/18 04:00 97.8 87 20 106/61 (76) 97 Nasal Cannula 2.00 07/26/18 01:33 95 Nasal Cannula 2.00 07/26/18 01:00 86 07/26/18 00:08 97.5 80 18 99/56 (70) 95 Nasal Cannula 3.00 07/25/18 21:43 97 Nasal Cannula 2.00 07/25/18 21:00 Nasal Cannula 2.00 07/25/18 19:50 97.8 78 20 87/49 (62) 95 Nasal Cannula 3.00 I & O 07/26/18 07:00 Intake Total 2180 ml Output Total 1725 ml Balance 455 ml Capillary Refill : Less Than 3 SecondsLess Than 3 Seconds General Appearance: No Apparent Distress, WD/WN, Chronically ill, Thin HEENT: PERRL/EOMI; No Scleral Icterus (L), No Scleral Icterus (R) Neck: Non Tender Respiratory: Chest Non Tender, No Accessory Muscle Use, No Respiratory Distress Cardiovascular: Regular Rate, Rhythm, Normal Peripheral Pulses Gastrointestinal: non tender, soft, no organomegaly, no pulsatile mass Extremity: Non Tender, Swelling (Bilateral lower extremity minimal) Neurologic/Psychiatric: Alert, Oriented x3, No Motor/Sensory Deficits, Normal Mood/Affect Skin: Normal Color, Warm/Dry Results Lab Laboratory Tests 07/25/18 20:54: Glucometer 231H 07/26/18 04:30: White Blood Count 6.6, Red Blood Count 2.68L, Hemoglobin 8.2L, Hematocrit 25L, Mean Corpuscular Volume 94, Mean Corpuscular Hemoglobin 31, Mean Corpuscular Hemoglobin Concent 32, Red Cell Distribution Width 15.7H, Platelet Count 265, Mean Platelet Volume 9.3, Sodium Level 135, Potassium Level 3.5L, Chloride Level 101, Carbon Dioxide Level 24, Anion Gap 10, Blood Urea Nitrogen 15, Creatinine 0.86, Estimat Glomerular Filtration Rate > 60, BUN/Creatinine Ratio 17, Glucose Level 157H, Calcium Level 8.3L, Corrected Calcium 9.3, Magnesium Level 1.7L, Total Bilirubin 0.6, Aspartate Amino Transf (AST/SGOT) 21, Alanine Aminotransferase (ALT/SGPT) 22, Alkaline Phosphatase 90, Total Protein 4.7L, Albumin 2.8L 07/26/18 05:20: Glucometer 170H 07/26/18 11:25: Glucometer 255H 07/26/18 12:25: Hemoglobin 8.3L, Hematocrit 26L 07/26/18 16:09: Glucometer 197H 07/26/18 18:15: Hemoglobin 7.9L, Hematocrit 24L Microbiology 07/07/18 Blood Culture - Final, Complete No growth 07/16/18 MRSA Screen - Final, Complete MRSA not isolated 07/06/18 Urine Culture - Final, Complete NO GROWTH Assessment/Plan Assessment/Plan Assessment/Plan Anemia with GI bleed most likely upper due to duodenal ulcers and hx dark tarry stools Posttraumatic stress disorder Duodenal ulcers - no signs of active bleed seen during EGD Status post PCI to LAD Pulmonary edema Patient on Protonix, Carafate, tolerating diet. following hgb, continue to follow and will transfuse as needed pulmonary edema - breathing easier Medical management Patient status post EGD with injection of epinephrine and resolution clip placed for bleeding duodenal ulcer. He is tolerating clears and hemoglobin stable. We'll advance dysphagia 1. Continue to monitor hemoglobin. Clinical Quality Measures DVT/VTE Risk/Contraindication: Risk Factor Score Per Nursin RFS Level Per Nursing on Admit: 4+=Very High JAVIER MARTINEZ DO Jul 26, 2018 19:21
[2018-07-26] MEDS: ATORVASTATIN 80 MG (LIPITOR) TABLET PO SCH (21:40)
[2018-07-27] VITALS (7 sets, daily range): BP systolic 89–122; BP diastolic 52–63
[2018-07-27] MEDS: NYSTATIN ORAL SUSP 5 ML UDC PO SCH ×5 (00:28→23:57)
[2018-07-27] MEDS: RT-ALBUTEROL SULF 2.5 MG/3 ML PRE-MIX VIAL INH SCH ×6 (02:38→21:44)
[2018-07-27] MEDS: ACETAMINOPHEN 500 MG TAB (TYLENOL) PO PRN (03:51)
[2018-07-27] MEDS: SUCRALFATE 1 GM (CARAFATE) TAB PO SCH ×4 (06:15→21:53)
[2018-07-27] MEDS: inSUlin ASPART (NovoLOG) 1 UNIT/0.01 ML (CHARGE PER UNIT) SC SCH ×4 (06:15→21:52)
[2018-07-27] MEDS: CATHETER FLUSH 10 ML SYR IV SCH ×3 (06:17→21:54)
[2018-07-27 06:41] LABS: HEMOGLOBIN 7.4 G/DL (13.3-17.7)
[2018-07-27] MEDS: RT-ADVAIR HFA 115/21 MCG PER PUFF IH SCH ×2 (07:06→18:12)
[2018-07-27] MEDS: UMECLIDINIUM BROMIDE (INCRUSE ELLIPTA) 7'S IH SCH (07:07)
--- NOTE | 2018-07-27 08:46 | Physical Therapy Daily Note ---
PT Daily Note-Current Subjective Patient in bed pre tx, agrees to PT, states he has some minor aches and pains. Appearance Patient BTB post tx with nurse call, phone, tray, all needs met. Mental Status Patient Orientation: Normal For Age Attachments: Oxygen 3L of O2 nasal canula Transfers Therapy Code Descriptions/Definitions Functional [place] Measure: 0=Not Assessed/NA 4=Minimal Assistance 1=Total Assistance 5=Supervision or Setup 2=Maximal Assistance 6=Modified [place] 3=Moderate Assistance 7=Complete [place] Therapy Quality Codes: 6 Independent with activity with or without an assistive device 5 Patient requires set up or clean up by helper. Patient completes activity by themselves 4 Supervision or touching assist (CGA). Marceline provide cues , steadying assist 3 The helper provides less than half the effort to complete the activity 2 The helper provides more than half the effort to complete the activity 1 Dependent. The helper does all the effort to complete an activity 7 Patient refused to complete or attempt activity 9 The patient did not perform the activity before the current illness or injury 88 Not attempted due to Medical conditions or safety concerns Transfers (B, C, W/C) (FIM): 6 Scootin Rollin Supine to/from Sit: 6 Sit to/from Stand: 6 Patient crawled back into bed facing forward, but he did it well, no unsteadiness or LOB. Weight Bearing Right Lower Extremity: Right Full Weight Bearing Left Lower Extremity: Left Full Weight Bearing Gait Training Gait (FIM): 1 Distance: 30'x2 Gait Level of Assist: 5 Gait Persons Needed: 1 Gait Assistive Device: FWW Patient has right foot drop, some unsteadiness. Patient states that his right ankle feels less numb. Treatments bed mobility and transfers, ambulation Assessment Current Status: Fair Progress improved ambulation and transfers PT Short Term Goals Short Term Goals Time Frame: Jul 15, 2018 PT Penitentiary Goals Penitentiary Goals PT Penitentiary Goals Time Frame: Jul 14, 2018 Transfers (B,C,W/C) (FIM): 6 Gait (FIM): 6 Gait distance (FIM): 3=150 ft Gait Level of Assist: 6 Gait Assistive Device: FWW PT Plan Problem List Problem List: Activity Tolerance, Functional Strength, Safety, Balance, Gait, Transfer, Bed Mobility Treatment/Plan Treatment Plan: Continue Plan of Care Treatment Plan: Bed Mobility, Education, Functional Activity Michel, Functional Strength, Gait, Safety, Therapeutic Exercise, Transfers Treatment Duration: Jul 24, 2018 Frequency: 6 times per week Estimated Hrs Per Day: .5 hour per day Patient and/or Family Agrees t: Yes Safety Risks/Education Patient Education: Gait Training, Transfer Techniques, Correct Positioning, Safety Issues Teaching Recipient: Patient Teaching Methods: Demonstration, Discussion Response to Teaching: Reinforcement Needed Time/GCodes Time In: 0820 Time Out: 0837 Total Billed Treatment Time: 17 Total Billed Treatment 1 visit GT 17' CRISTÓBAL MONTEMAYOR PT Jul 27, 2018 08:46
[2018-07-27] MEDS: PANTOPRAZOLE 40 MG (PROTONIX) TAB PO SCH ×2 (08:48→21:53)
[2018-07-27] MEDS: NICOTINE 21 MG (NICODERM) PATCH TD SCH (08:48)
[2018-07-27] MEDS: ALPRAZolam 0.5 MG (XANAX) TAB PO SCH ×2 (08:48→21:53)
[2018-07-27] MEDS: TICAGRELOR 90 MG TABLET (BRILINTA) PO SCH ×2 (08:49→21:53)
[2018-07-27] MEDS: MENTHOL/ZINC OXIDE (CALMOSEPTINE) 113 GM TUBE TOP SCH ×2 (08:49→21:54)
[2018-07-27] MEDS: PATCH REMOVAL TP SCH (08:49)
[2018-07-27] MEDS: PARoxetine 20 MG (PAXIL) TAB PO SCH ×2 (08:49→21:53)
[2018-07-27] MEDS: SENNA W/DOCUSATE (SENOKOT S) TABLET PO SCH ×2 (08:49→21:53)
[2018-07-27] MEDS: POLYETHYLENE GLYCOL 17 GM (MIRALAX) PACK PO SCH ×2 (08:49→21:53)
[2018-07-27 09:39] LABS: BUN/CREATININE RATIO 19; CALCIUM 8.5 MG/DL (8.5-10.1); CARBON DIOXIDE 26 MMOL/L (21-32); CHLORIDE 98 MMOL/L (98-107); GFR ESTIMATED > 60; GLUCOSE 218 MG/DL (70-105); MAGNESIUM 1.9 MG/DL (1.8-2.4); POTASSIUM 3.8 MMOL/L (3.6-5.0); SODIUM 133 MMOL/L (135-145)
[2018-07-27] MEDS: FUROSEMIDE 40 MG/4 ML INJ (LASIX) IVP SCH (09:41)
[2018-07-27] MEDS: lisINopril 5 MG (PRINIVIL) TABLET PO SCH (09:42)
[2018-07-27] MEDS: ASPIRIN E.C. 81 MG (ECOTRIN) TAB PO SCH (09:44)
--- NOTE | 2018-07-27 10:53 | Progress Note (SOAP) ---
Subjective Subjective/Events-last exam Afebrile, no acute events. He states he is feeling quite well today, he walked with PT this morning and he feels his foot drop is slightly improved. He has a good appetite per his report and ate some cream of wheat this morning. Review of Systems Date Seen by Provider: Jul 27, 2018 Time Seen by Provider: 09:52 Focused Exam Time of Focused Exam: 07:40 Objective Exam Last Set of Vital Signs Vital Signs Date Time Temp Pulse Resp B/P (MAP) Pulse Ox O2 Delivery O2 Flow Rate FiO2 07/27/18 10:20 98 Nasal Cannula 3.00 07/27/18 08:00 97.1 104 18 89/52 (64) Capillary Refill : Less Than 3 SecondsLess Than 3 Seconds I&O Intake and Output 07/27/18 00:00 Intake Total 2380 ml Output Total 1885 ml Balance 495 ml Intake Oral 2080 ml IV Total 300 ml Output Urine Total 1885 ml # Voids 1 # Bowel Movements 1 General: Alert, No Acute Distress Lungs: Clear to Auscultation, Normal Air Movement Heart: Regular Rate, No Murmurs Abdomen: Normal Bowel Sounds, Soft, No Tenderness Extremities: No Edema Neuro: Normal Speech Results/Procedures Lab Laboratory Tests 07/26/18 11:25: Glucometer 255H 07/26/18 12:25: Hemoglobin 8.3L, Hematocrit 26L 07/26/18 16:09: Glucometer 197H 07/26/18 18:15: Hemoglobin 7.9L, Hematocrit 24L 07/26/18 21:29: Glucometer 284H 07/27/18 05:32: Glucometer 218H 07/27/18 06:05: Hemoglobin 7.4L, Hematocrit 23L 07/27/18 09:15: Sodium Level 133L, Potassium Level 3.8, Chloride Level 98, Carbon Dioxide Level 26, Anion Gap 9, Blood Urea Nitrogen 19H, Creatinine 1.00, Estimat Glomerular Filtration Rate > 60, BUN/Creatinine Ratio 19, Glucose Level 218H, Calcium Level 8.5, Magnesium Level 1.9 Microbiology 07/07/18 Blood Culture - Final, Complete No growth 07/16/18 MRSA Screen - Final, Complete MRSA not isolated 07/06/18 Urine Culture - Final, Complete NO GROWTH Radiology Assessment/Plan Assessment/Plan Assessment & Plan (1) Acute and chronic respiratory failure with hypoxia Status: Acute Assessment & Plan: 07/17: Arely consulted today, encourage patient to continue with Aerobike at least every hr, encouraged getting to edge of bed, will titrate as tolerated 07/18: Continue lasix for pulmonary edema, will titrate as tolerated 07/21: improved; down to 2.5L HF NC 07/26 stable on 2 lpm supplemental oxygen (2) Pulmonary edema cardiac cause Status: Acute Assessment & Plan: 07/17: Dr Chandra added lasix today, will diuresis and monitor renal function 07/21: improved (3) GI bleed Status: Resolved Assessment & Plan: Pt required another unit of PRBCs last night; Hgb stable for now. EGD with Patrizia today. Consider colonoscopy outpatient, should EGD come back negative. 07/09- EGD yesterday with large ulcers, not actively bleeding. Added sucralfate to pantoprazole but hemoglobin below 6 again this am. 2 units PRBCs, f/u after. 07/10- No vomiting, Hgb stable since transfusion, if continues to be stable would be stable for cath Thursday, Will advance diet today per surgery recommendations 07/11- Hgb stable, Will get retic count today, Start Fe infusions 07/12- Hgb stable today, will discuss case with surgery to see how long they would like to wait for cath, IV iron 07/13: Hgb Stable, continue IV iron 07/14: Hgb down today, discussed with Dr Acharya and will continue to monitor, Continue IV iron 07/15: Hgb up today, continue IV iron replacement 07/16: Hgb stable, continue IV Iron, cath today 07/17-07/20: Stable 07/21 - Medically stable but continued weakness and limited ambulation. Will do OT eval. Consult for SNU. Anticipate DC to [facility] by Thursday. Plan for PVD intervention by Dr. Chandra after discharge, possibly next week. 07/22 - Hb down from 8 to 6.7 - transfuse 2U prbc, will recheck H/H. Per Dr. Acharya if Hb continues to drop will do EGD. Plan to hold transfer to SNU until Thursday if patient stabilizes. 07/23 - Hb 9.3 after transfusion, back down to 7.8 this am. Will transfuse another [address] Acharya planning to do EGD. Dr. Fox to assume care for the weekend.- EGD done 07/23 with control of bleeding duodenal ulcer with epinephrine and clip 07/24/2018 -hemoglobin yesterday at 530 p.m. was 8.9 We will plan on rechecking this In the morning of July 25. It appears that he is not actively bleeding. I spoke with Dr. Acharya and we will go ahead and start clear liquid diet this morning 07/25/2018 - hemoglobin this morning was noted to be 8.0. This is a drop from 8.9. His hemoglobin will be rechecked in the morning. Also surgical input today. We'll defer on advancing diet until surgical evaluation today. 07/26- hypotensive overnight but hgb stable, will follow q6 today 07/27- hemoglobin with trend down, will continue q6 monitoring, appreciate Dr. Acharya's recommendations. Qualifiers: Qualified Codes: K92.2 - Gastrointestinal hemorrhage, unspecified (4) Urinary retention due to benign prostatic hyperplasia Status: Resolved Assessment & Plan: Catheter placed 07/07 due to significant retention. 07/08 start Flomax, may need to d/c with liriano depending on course. 07/15: D/c liriano today (5) Acute systolic CHF (congestive heart failure) Status: Acute Assessment & Plan: 07/10: Echo with EF 25%, plan for cath when anemia is stable 07/11: Discussed case with cardiology, waiting to get cath procedure done 07/13: Cath to be done Thursday or Sunday 07/15: Plan for cath tomorrow 07/16: Cath today with stents placed 07/17: Dr Chandra has ordered lifevest for patient 07/21 : Lifevest in place; pt has had some discharges overnight, being managed by Dr. Chandra (6) Debility Assessment & Plan: PT/OT, Will need rehab vs SNF following hospitalization 07/18: Will consult Rehab 07/21: SW working on placement for longterm; consult in to [facility] (7) Hyperglycemia Status: Acute Assessment & Plan: sliding scale insulin, diabetic diet when taking PO 07/10: A1c pending See DMII (8) Lower extremity edema Status: Resolved Assessment & Plan: Venous insufficiency/immobility versus related to his kidney function. Consider echocardiogram pending clinical course. 07/09- complaining of cough as well, will obtain echocardiogram 07/10- Abnormal echo, EF 25%, cardiology following 07/12: Discussed the importance of activity, getting to edge of bed, leg exercises and elevation of feet 07/14: Patient up in chair today (9) Severe anemia Status: Acute Assessment & Plan: Pt required another unit of PRBCs last night. EGD with Patrizia today. Consider colonscopy outpatient, should EGD come back negative. 07/09- hgb below 6 this am, 2 units prbc today, repeat hemoglobin after. 07/22 - Hb down from 8 to 6.7 - transfuse 2U prbc, will recheck H/H. Per Dr. Acharya if Hb continues to drop will do EGD. Plan to hold transfer to SNU until Thursday if patient stabilizes. 07/23 - Hb 9.3 after transfusion, back down to 7.8 this am. Will transfuse another [address] Acharya planning to do EGD See GI bleed dx. (10) Hypokalemia Status: Resolved Assessment & Plan: Replace and recheck. (11) Lactic acidosis Status: Resolved Assessment & Plan: Unclear etiology with no source of infection. Improved with IVF. Denies abdominal pain to suggest ischemia. (12) Diabetes mellitus, type 2 Status: Chronic Assessment & Plan: Diabetic diet when taking oral. Sliding scale insulin. 07/21: A1c 7.9%; BS running 200-300, will add Glyburide 2.5 mg daily Qualifiers: (13) Right foot drop Status: Acute Assessment & Plan: MRI showed only lumbar spondylosis. No clear explanation for his foot drop. 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 (14) Poor appetite Status: Acute Assessment & Plan: Denies pain, concern for underlying serious condition given his anemia and weakness. Endoscopy recommended in vs outpatient depending on course. 07/08 EGD today 07/09 EGD yesterday with ulcers, treating with pantoprazole and sucralfate, biopsies pending Bx with esophagitis, no H pylori (15) Leg weakness, bilateral Status: Acute Assessment & Plan: PT. (16) BPH (benign prostatic hyperplasia) Status: Chronic Assessment & Plan: Previously on medication, he stopped due to side effects. Qualifiers: (17) PTSD (post-traumatic stress disorder) Status: Chronic Assessment & Plan: Resume home medications. (18) COPD (chronic obstructive pulmonary disease) Status: Chronic Assessment & Plan: Resume home inhalers (19) DVT prophylaxis Status: Acute Assessment & Plan: No pharmacologic ppx with active bleed. SCDs. Clinical Quality Measures DVT/VTE Risk/Contraindication: Risk Factor Score Per Nursin RFS Level Per Nursing on Admit: 4+=Very High JOHN VILLALPANDO MD Jul 27, 2018 10:53
--- NOTE | 2018-07-27 11:33 | Cardiology Progress Note ---
Cardiology SOAP Progress Note Subjective: Improved cardiac symptoms. Objective: I&O/Vital Signs 07/27/18 07/27/18 07/27/18 07/27/18 02:38 04:00 07:00 07:05 Temp 98.9 Pulse 107 101 Resp 18 B/P (MAP) 96/52 (67) Pulse Ox 88 90 93 O2 Delivery Room Air Nasal Cannula Nasal Cannula O2 Flow Rate 3.00 3.00 07/27/18 07/27/18 07/27/18 08:00 08:45 10:20 Temp 97.1 Pulse 104 Resp 18 B/P (MAP) 89/52 (64) Pulse Ox 92 98 O2 Delivery Nasal Cannula Nasal Cannula Nasal Cannula O2 Flow Rate 3.00 3.00 3.00 07/27/18 00:00 Intake Total 1780 ml Output Total 1885 ml Balance -105 ml Weight (Pounds): 129 Weight (Ounces): 0.0 Weight (Calculated Kilograms): [id number] Constitutional: appears stated age, AAO x 3; No apparent distress; well- developed, well-nourished Respiratory: No accessory muscle use, No respiratory distress, No chest tender , No chest expansion is symmetric; chest is bilaterally symmetric; No lungs clear to percussion; crackles; No rhonchi, No rales, No stridor, No wheezing, No pleural rub, No other Cardiovascular: regular rate-rhythm; No irregularly irregular, No extra beats, No parasternal heave is noted, No JVD, No edema, No bradycardia, No tachycardia , No point of maximal impulse, No cardiac thrills are palpable; S1 and S2; No gallop/S3, No gallop/S4, No diastolic murmur, No systolic murmur, No friction rub, No click, No other Gastrointestional: No tender, No soft, No round, No distended, No pulsatile mass, No organomegaly, No guarding, No rebound, No tenderness, No hernia, No mass, No audible bowel sounds, No abnormal bowel sounds, No abdominal bruits, No spleenomegaly, No other Extremities: pedal edema; No clubbing, No cyanosis, No significant edema Neurologic/Psychiatric: no motor/sensory deficits, alert, normal mood/affect, oriented x 3, power is 5/5 both on sides Skin: No normal color, No warm/dry, No cyanosis, No cool, No diaphoresis, No damp, No ecchymosis, No jaundice, No mottled; pallor; No rash, No tattoos/ piercings, No ulcerations, No rash on exposed areas, No ulcerations on exposed areas, No other Results/Procedures: Labs Laboratory Tests 07/26/18 16:09: Glucometer 197H 07/26/18 18:15: Hemoglobin 7.9L, Hematocrit 24L 07/26/18 21:29: Glucometer 284H 07/27/18 05:32: Glucometer 218H 07/27/18 06:05: Hemoglobin 7.4L, Hematocrit 23L 07/27/18 09:15: Sodium Level 133L, Potassium Level 3.8, Chloride Level 98, Carbon Dioxide Level 26, Anion Gap 9, Blood Urea Nitrogen 19H, Creatinine 1.00, Estimat Glomerular Filtration Rate > 60, BUN/Creatinine Ratio 19, Glucose Level 218H, Calcium Level 8.5, Magnesium Level 1.9 07/27/18 11:17: Glucometer 353H Microbiology 07/07/18 Blood Culture - Final, Complete No growth 07/16/18 MRSA Screen - Final, Complete MRSA not isolated 07/06/18 Urine Culture - Final, Complete NO GROWTH A/P: Assessment/Dx: Acute respiratory failure, pulmonary edema, improved. Worsening anemia, Recent GI bleeding, Severe Peptic ulcer disease, Severe dilated cardiomyopathy, Smoking, HTN, DM, Hyperlipidemia, Hypokalemia, CKD, Leg discomfort, Aortic insufficiency, ASD, Acute diastolic CHF, Pulmonary HTN, COPD Plan: Acute respiratory failure, pulmonary edema, chest x-ray shows pulmonary edema, increased BNP. Continue IV Lasix. Recent GI bleeding, on PPI and sucrafate. received PRBCs this morning. Likely GI bleeding. Dr. Acharya following. EGD - Duodenal ulcer bleed - treated with cautery/clip. Severe Peptic ulcer disease, Severe dilated cardiomyopathy, LVEF on Echo 25% with anterior/apical hypokinesis. very likely due to CAD. 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 Collaterals from the left circumflex artery. Moderate left circumflex artery stenosis. Severe LAD stenosis treated successfully with drug-eluting stents. LVEDP 28 mmHg. Lifevest for primary prevention of sudden cardiac , dilated cardiomyopathy. Patient is wearing a LifeVest. Smoking - smoking cessation was strongly recommended. HTN, lisinopril and BB. DM, continue metformin for now. Hyperlipidemia, statin therapy. Hypokalemia, CKD; Diabetic nephropathy likely. Resting Leg discomfort, lifestyle limiting claudication, bilateral significant PAD. Aortic insufficiency, follow clinically. 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 Acute diastolic CHF, pseudonormal diastolic dysfunction. caution with IV fluids. Pulmonary HTN, likely secondary to COPD. COPD, defer to primary team. Thank you for your consultation. Please call me if you have any questions. Kusum Chandra MD, FACP, FACC, FSCAI, FHRS, CCDS Interventional Cardiology Cardiac Electrophysiology Vascular Medicine and Endovascular Interventions Focused Exam Time of Focused Exam: 07:40 Jose CHANDRA MD Jul 27, 2018 11:33 am
--- NOTE | 2018-07-27 15:15 | Occupational Ther Daily Note ---
OT Current Status-Daily Note Subjective Pt seen in room, up in bed, agreeable to OT. Just finished with a shower and said that he walked in there SBA, FWW Appearance Alert, cooperative Mental Status/Objective Therapy Code Descriptions/Definitions Functional [place] Measure: 0=Not Assessed/NA 4=Minimal Assistance 1=Total Assistance 5=Supervision or Setup 2=Maximal Assistance 6=Modified [place] 3=Moderate Assistance 7=Complete [place] Other Treatment Pt completed 20-25 reps 4 different bilat UE exercise with yellow theraband, after pt education. To strengthen arms to help with ADLs. Pt believes that he is getting stronger and hopes to go home soon. Will upgrade to red (medium resistance) theraband. Pt left up in bed, all needs met. Education OT Patient Education: Exercise program, Purpose of tx/functional activities Teaching Recipient: Patient Teaching Methods: Demonstration, Discussion Response to Teaching: Return Demonstration OT Short Term Goals Short Term Goals 1=Demonstrate adherence to instructed precautions during ADL tasks. 2=Patient will verbalize/demonstrate understanding of assistive devices/ modifications for ADL. 3=Patient will improve strength/tolerance for activity to enable patient to perform ADL's. OT Longterm Goals Pathology Specialist Goals Time Frame: Aug 11, 2018 Eating (FIM): 7 Grooming(FIM): 6 Bathing(FIM): 6 Upper Body Dressing(FIM): 6 Lower Body Dressing(FIM): 6 Toileting(FIM): 6 Toilet/Commode Transfer(FIM): 6 Shower Transfer(FIM): 6 Additional Goals: 1-Demonstrate ADL Tasks, 2-Verbalize Understanding, 3- ImproveStrength/Michel 1=Demonstrate adherence to instructed precautions during ADL tasks. 2=Patient will verbalize/demonstrate understanding of assistive devices/ modifications for ADL. 3=Patient will improve strength/tolerance for activity to enable patient to perform ADL's. OT Education/Plan Problem List/Assessment Pt would benefit from skilled Ot to increase his independence in basic self care to allow him to return to his apartment to live independently Discharge Recommendations Plan/Recommendations: Continue POC Treatment Plan/Plan of Care Patient would benefit from OT for education, treatment and training to promote independence in ADL's, mobility, safety and/or upper extremity function for ADL' s. Plan of Care: ADL Retraining, Functional Mobility, UE Funct Exercise/Act, UE Neuromus Re-Ed/Coord, OTHER (energy conservation education and practice) Treatment Duration: Aug 11, 2018 Frequency: 5 times per week Estimated Hrs Per Day: .5 hour per day Agreement: Yes Rehab Potential: Good Time/GCodes Start Time: 14:53 Stop Time: 15:05 Total Time Billed (hr/min): 12 Billed Treatment Time visit, 12 minutes exercise GLORIA GRANADOS OT Jul 27, 2018 15:15
--- NOTE | 2018-07-27 16:30 | Progress Note ---
Subjective Date Seen by a Provider: Jul 27, 2018 Time Seen by a Provider: 16:25 Subjective/Events-last exam patient feeling better today. hgb trending down. patient states last dark bm was yesterday. tolerating diet. Not having abdominal pain. denies n/v fever sweats chills shortness of breath or chest pain. Focused Exam Time of Focused Exam: 07:40 Objective Exam Vital Signs Date Time Temp Pulse Resp B/P (MAP) Pulse Ox O2 Delivery O2 Flow Rate FiO2 07/27/18 14:55 99 Nasal Cannula 3.00 07/27/18 13:00 100 07/27/18 12:00 96.7 94 20 122/62 (82) 97 Nasal Cannula 3.00 07/27/18 10:20 98 Nasal Cannula 3.00 07/27/18 08:45 Nasal Cannula 3.00 07/27/18 08:00 97.1 104 18 89/52 (64) 92 Nasal Cannula 3.00 07/27/18 07:05 93 Nasal Cannula 3.00 07/27/18 07:00 101 07/27/18 04:00 98.9 107 18 96/52 (67) 90 Nasal Cannula 3.00 07/27/18 02:38 88 Room Air 07/27/18 01:05 106 07/27/18 00:00 97.5 108 18 94/54 (67) 93 Nasal Cannula 3.00 07/26/18 22:10 93 Nasal Cannula 3.00 07/26/18 21:00 Nasal Cannula 3.00 07/26/18 20:00 97.8 89 18 109/59 (76) 93 Nasal Cannula 3.00 07/26/18 19:00 88 I & O 07/27/18 07:00 Intake Total 2380 ml Output Total 1885 ml Balance 495 ml Capillary Refill : Less Than 3 SecondsLess Than 3 Seconds General Appearance: No Apparent Distress, WD/WN, Chronically ill, Thin HEENT: PERRL/EOMI; No Scleral Icterus (L), No Scleral Icterus (R) Neck: Non Tender Respiratory: Chest Non Tender, No Accessory Muscle Use, No Respiratory Distress Cardiovascular: Regular Rate, Rhythm, Normal Peripheral Pulses Gastrointestinal: non tender, soft, no organomegaly, no pulsatile mass Extremity: Non Tender, Swelling (Bilateral lower extremity minimal) Neurologic/Psychiatric: Alert, Oriented x3, No Motor/Sensory Deficits, Normal Mood/Affect Skin: Normal Color, Warm/Dry Results Lab Laboratory Tests 07/26/18 18:15: Hemoglobin 7.9L, Hematocrit 24L 07/26/18 21:29: Glucometer 284H 07/27/18 05:32: Glucometer 218H 07/27/18 06:05: Hemoglobin 7.4L, Hematocrit 23L 07/27/18 09:15: Sodium Level 133L, Potassium Level 3.8, Chloride Level 98, Carbon Dioxide Level 26, Anion Gap 9, Blood Urea Nitrogen 19H, Creatinine 1.00, Estimat Glomerular Filtration Rate > 60, BUN/Creatinine Ratio 19, Glucose Level 218H, Calcium Level 8.5, Magnesium Level 1.9 07/27/18 11:17: Glucometer 353H 07/27/18 16:09: Glucometer 227H Microbiology 07/07/18 Blood Culture - Final, Complete No growth 07/16/18 MRSA Screen - Final, Complete MRSA not isolated 07/06/18 Urine Culture - Final, Complete NO GROWTH Assessment/Plan Assessment/Plan Assessment/Plan Anemia with GI bleed most likely upper due to duodenal ulcers and hx dark tarry stools Posttraumatic stress disorder Duodenal ulcers - no signs of active bleed seen during EGD Status post PCI to LAD Pulmonary edema Patient on Protonix, Carafate, tolerating diet. following hgb, continue to follow and will transfuse as needed pulmonary edema - breathing easier Medical management Patient status post EGD with injection of epinephrine and resolution clip placed for bleeding duodenal ulcer. hgb trending down will switch back to clear liquids follow hgb Clinical Quality Measures DVT/VTE Risk/Contraindication: Risk Factor Score Per Nursin RFS Level Per Nursing on Admit: 4+=Very High JAVIER MARTINEZ DO Jul 27, 2018 16:30
[2018-07-27 16:44] LABS: HEMOGLOBIN 7.7 G/DL (13.3-17.7)
[2018-07-27] MEDS: TAMSULOSIN 0.4 MG (FLOMAX) CAP PO SCH (17:08)
[2018-07-27] MEDS: ATORVASTATIN 80 MG (LIPITOR) TABLET PO SCH (21:53)
[2018-07-28] VITALS (9 sets, daily range): BP systolic 83–118; BP diastolic 52–65
[2018-07-28] MEDS: RT-ALBUTEROL SULF 2.5 MG/3 ML PRE-MIX VIAL INH SCH ×5 (01:17→18:47)
[2018-07-28 06:18] LABS: HEMOGLOBIN 7.4 G/DL (13.3-17.7)
[2018-07-28] MEDS: RT-ADVAIR HFA 115/21 MCG PER PUFF IH SCH ×2 (06:25→18:47)
[2018-07-28] MEDS: UMECLIDINIUM BROMIDE (INCRUSE ELLIPTA) 7'S IH SCH (06:25)
[2018-07-28] MEDS: NYSTATIN ORAL SUSP 5 ML UDC PO SCH ×3 (06:27→16:23)
[2018-07-28] MEDS: SUCRALFATE 1 GM (CARAFATE) TAB PO SCH ×4 (06:27→21:08)
[2018-07-28] MEDS: inSUlin ASPART (NovoLOG) 1 UNIT/0.01 ML (CHARGE PER UNIT) SC SCH ×4 (06:27→21:10)
[2018-07-28] MEDS: CATHETER FLUSH 10 ML SYR IV SCH ×3 (06:28→22:11)
[2018-07-28 06:43] LABS: BUN/CREATININE RATIO 21; CALCIUM 8.6 MG/DL (8.5-10.1); CARBON DIOXIDE 25 MMOL/L (21-32); CHLORIDE 97 MMOL/L (98-107); CREATININE SERUM 0.97 MG/DL (0.60-1.30); GFR ESTIMATED > 60; GLUCOSE 240 MG/DL (70-105); POTASSIUM 4.5 MMOL/L (3.6-5.0); SODIUM 132 MMOL/L (135-145)
[2018-07-28] MEDS: NICOTINE 21 MG (NICODERM) PATCH TD SCH (08:22)
[2018-07-28] MEDS: ALPRAZolam 0.5 MG (XANAX) TAB PO SCH ×2 (08:23→21:09)
[2018-07-28] MEDS: FUROSEMIDE 40 MG/4 ML INJ (LASIX) IVP SCH (08:23)
[2018-07-28] MEDS: PANTOPRAZOLE 40 MG (PROTONIX) TAB PO SCH ×2 (08:23→21:09)
[2018-07-28] MEDS: SENNA W/DOCUSATE (SENOKOT S) TABLET PO SCH ×2 (08:25→21:09)
[2018-07-28] MEDS: TICAGRELOR 90 MG TABLET (BRILINTA) PO SCH ×2 (08:26→21:09)
[2018-07-28] MEDS: PARoxetine 20 MG (PAXIL) TAB PO SCH ×2 (08:26→21:10)
[2018-07-28] MEDS: PATCH REMOVAL TP SCH (08:27)
[2018-07-28] MEDS: lisINopril 5 MG (PRINIVIL) TABLET PO SCH (08:27)
[2018-07-28] MEDS: ASPIRIN E.C. 81 MG (ECOTRIN) TAB PO SCH (08:50)
[2018-07-28] MEDS: POLYETHYLENE GLYCOL 17 GM (MIRALAX) PACK PO SCH ×2 (08:51→21:08)
--- NOTE | 2018-07-28 09:05 | Progress Note (SOAP) ---
Subjective Subjective/Events-last exam Afebrile. BP remains low. States he is feeling well, but still had small amount of blood in stool last night. Is wanting to eat more. Review of Systems Date Seen by Provider: Jul 28, 2018 Time Seen by Provider: 08:30 Focused Exam Time of Focused Exam: 07:40 Objective Exam Last Set of Vital Signs Vital Signs Date Time Temp Pulse Resp B/P (MAP) Pulse Ox O2 Delivery O2 Flow Rate FiO2 07/28/18 07:53 97.2 91 18 93/56 (68) 96 Nasal Cannula 3.00 Capillary Refill : Less Than 3 SecondsLess Than 3 Seconds I&O Intake and Output 07/28/18 00:00 Intake Total 1857 ml Output Total 1400 ml Balance 457 ml Intake Oral 1857 ml Output Urine Total 1400 ml # Bowel Movements 1 General: Alert, No Acute Distress Lungs: Clear to Auscultation, Normal Air Movement Heart: Regular Rate, No Murmurs Abdomen: Normal Bowel Sounds, Soft, No Tenderness Neuro: Normal Speech Psych/Mental Status: Mental Status NL Results/Procedures Lab Laboratory Tests 07/27/18 09:15: Sodium Level 133L, Potassium Level 3.8, Chloride Level 98, Carbon Dioxide Level 26, Anion Gap 9, Blood Urea Nitrogen 19H, Creatinine 1.00, Estimat Glomerular Filtration Rate > 60, BUN/Creatinine Ratio 19, Glucose Level 218H, Calcium Level 8.5, Magnesium Level 1.9 07/27/18 11:17: Glucometer 353H 07/27/18 16:09: Glucometer 227H 07/27/18 16:31: Hemoglobin 7.7L, Hematocrit 24L 07/27/18 21:07: Glucometer 226H 07/28/18 06:01: Hemoglobin 7.4L, Hematocrit 23L, Sodium Level 132L, Potassium Level 4.5, Chloride Level 97L, Carbon Dioxide Level 25, Anion Gap 10, Blood Urea Nitrogen 20H, Creatinine 0.97, Estimat Glomerular Filtration Rate > 60, BUN/Creatinine Ratio 21, Glucose Level 240H, Calcium Level 8.6 07/28/18 06:06: Glucometer 262H Microbiology 07/07/18 Blood Culture - Final, Complete No growth 07/16/18 MRSA Screen - Final, Complete MRSA not isolated 07/06/18 Urine Culture - Final, Complete NO GROWTH Radiology Assessment/Plan Assessment/Plan Assessment & Plan (1) Acute and chronic respiratory failure with hypoxia Status: Acute Assessment & Plan: 07/17: Arely consulted today, encourage patient to continue with Aerobike at least every hr, encouraged getting to edge of bed, will titrate as tolerated 07/18: Continue lasix for pulmonary edema, will titrate as tolerated 07/21: improved; down to 2.5L HF NC 07/28 stable on 2-3 lpm supplemental oxygen (2) Pulmonary edema cardiac cause Status: Acute Assessment & Plan: 07/17: Dr Chandra added lasix today, will diuresis and monitor renal function 07/21: improved 07/28- remains on IV lasix daily, defer to Cardiology for timing on transition to oral (3) GI bleed Status: Resolved Assessment & Plan: Pt required another unit of PRBCs last night; Hgb stable for now. EGD with Patrizia today. Consider colonoscopy outpatient, should EGD come back negative. 07/09- EGD yesterday with large ulcers, not actively bleeding. Added sucralfate to pantoprazole but hemoglobin below 6 again this am. 2 units PRBCs, f/u after. 07/10- No vomiting, Hgb stable since transfusion, if continues to be stable would be stable for cath Thursday, Will advance diet today per surgery recommendations 07/11- Hgb stable, Will get retic count today, Start Fe infusions 07/12- Hgb stable today, will discuss case with surgery to see how long they would like to wait for cath, IV iron 07/13: Hgb Stable, continue IV iron 07/14: Hgb down today, discussed with Dr Acharya and will continue to monitor, Continue IV iron 07/15: Hgb up today, continue IV iron replacement 07/16: Hgb stable, continue IV Iron, cath today 07/17-07/20: Stable 07/21 - Medically stable but continued weakness and limited ambulation. Will do OT eval. Consult for SNU. Anticipate DC to [facility] by Thursday. Plan for PVD intervention by Dr. Chandra after discharge, possibly next week. 07/22 - Hb down from 8 to 6.7 - transfuse 2U prbc, will recheck H/H. Per Dr. Acharya if Hb continues to drop will do EGD. Plan to hold transfer to SNU until Thursday if patient stabilizes. 07/23 - Hb 9.3 after transfusion, back down to 7.8 this am. Will transfuse another [address] Acharya planning to do EGD. Dr. Fox to assume care for the weekend.- EGD done 07/23 with control of bleeding duodenal ulcer with epinephrine and clip 07/24/2018 -hemoglobin yesterday at 530 p.m. was 8.9 We will plan on rechecking this In the morning of July 25. It appears that he is not actively bleeding. I spoke with Dr. Acharya and we will go ahead and start clear liquid diet this morning 07/25/2018 - hemoglobin this morning was noted to be 8.0. This is a drop from 8.9. His hemoglobin will be rechecked in the morning. Also surgical input today. We'll defer on advancing diet until surgical evaluation today. 07/26- hypotensive overnight but hgb stable, will follow q6 today 07/27- hemoglobin with trend down, will continue q6 monitoring, appreciate Dr. Acharya's recommendations. 07/28- overall hemoglobin stable around 7.4, checking q12. Discussed with Dr. Acharya and family this am, plan for outpatient colonoscopy when more stable, anticipate possible d/c tomorrow or Thursday. Qualifiers: Qualified Codes: K92.2 - Gastrointestinal hemorrhage, unspecified (4) Urinary retention due to benign prostatic hyperplasia Status: Resolved Assessment & Plan: Catheter placed 07/07 due to significant retention. 07/08 start Flomax, may need to d/c with liriano depending on course. 07/15: D/c liriano today 07/28 remains on tamsulosin, BP low will try switching to finasteride. (5) Acute systolic CHF (congestive heart failure) Status: Acute Assessment & Plan: 07/10: Echo with EF 25%, plan for cath when anemia is stable 07/11: Discussed case with cardiology, waiting to get cath procedure done 07/13: Cath to be done Thursday or Sunday 07/15: Plan for cath tomorrow 07/16: Cath today with stents placed 07/17: Dr Chandra has ordered lifevest for patient 07/21 : Lifevest in place; pt has had some discharges overnight, being managed by Dr. Chandra 07/28- patient not wanting to wear lifevest inpatient due to discomfort, he states the telemetry will get him help quickly. Discussed risks of life threatening arryhthmia, he states he will use when he is discharged. Continued on lisinopril, metoprolol, aspirin and ticegrelor. Not able to tolerate lisinopril and metoprolol last several days even at low dose due to hypotension. Difficult to balance risks of bleeding with need for antiplatelet therapy. (6) Debility Assessment & Plan: PT/OT, Will need rehab vs SNF following hospitalization 07/18: Will consult Rehab 07/21: SW working on placement for fdc; consult in to [facility] 07/28- walking with PT and having daily improvements, plan for d/c to [facility] SNF tomorrow or Thursday depending on course next 24 hours. (7) Hyperglycemia Status: Acute Assessment & Plan: sliding scale insulin, diabetic diet when taking PO 07/10: A1c pending See DMII (8) Lower extremity edema Status: Resolved Assessment & Plan: Venous insufficiency/immobility versus related to his kidney function. Consider echocardiogram pending clinical course. 07/09- complaining of cough as well, will obtain echocardiogram 07/10- Abnormal echo, EF 25%, cardiology following 07/12: Discussed the importance of activity, getting to edge of bed, leg exercises and elevation of feet 07/14: Patient up in chair today (9) Severe anemia Status: Acute Assessment & Plan: Pt required another unit of PRBCs last night. EGD with Patrizia today. Consider colonscopy outpatient, should EGD come back negative. 07/09- hgb below 6 this am, 2 units prbc today, repeat hemoglobin after. 07/22 - Hb down from 8 to 6.7 - transfuse 2U prbc, will recheck H/H. Per Dr. Acharya if Hb continues to drop will do EGD. Plan to hold transfer to SNU until Thursday if patient stabilizes. 07/23 - Hb 9.3 after transfusion, back down to 7.8 this am. Will transfuse another [address] Acharya planning to do EGD See GI bleed dx. (10) Hypokalemia Status: Resolved Assessment & Plan: Replace and recheck. (11) Lactic acidosis Status: Resolved Assessment & Plan: Unclear etiology with no source of infection. Improved with IVF. Denies abdominal pain to suggest ischemia. (12) Diabetes mellitus, type 2 Status: Chronic Assessment & Plan: Diabetic diet when taking oral. Sliding scale insulin. 07/21: A1c 7.9%; BS running 200-300, will add Glyburide 2.5 mg daily Qualifiers: (13) Right foot drop Status: Acute Assessment & Plan: MRI showed only lumbar spondylosis. No clear explanation for his foot drop. 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 (14) Poor appetite Status: Acute Assessment & Plan: Denies pain, concern for underlying serious condition given his anemia and weakness. Endoscopy recommended in vs outpatient depending on course. 07/08 EGD today 07/09 EGD yesterday with ulcers, treating with pantoprazole and sucralfate, biopsies pending Bx with esophagitis, no H pylori (15) Leg weakness, bilateral Status: Acute Assessment & Plan: PT. (16) BPH (benign prostatic hyperplasia) Status: Chronic Assessment & Plan: Previously on medication, he stopped due to side effects. Qualifiers: (17) PTSD (post-traumatic stress disorder) Status: Chronic Assessment & Plan: Resume home medications. (18) COPD (chronic obstructive pulmonary disease) Status: Chronic Assessment & Plan: Resume home inhalers (19) DVT prophylaxis Status: Acute Assessment & Plan: No pharmacologic ppx with active bleed. SCDs. Clinical Quality Measures DVT/VTE Risk/Contraindication: Risk Factor Score Per Nursin RFS Level Per Nursing on Admit: 4+=Very High JOHN VILLALPANDO MD Jul 28, 2018 09:05
--- NOTE | 2018-07-28 09:37 | Physical Therapy Daily Note ---
PT Daily Note-Current Subjective Pt reports increased dizziness today and also having issues with lower blood pressure, but determined to get out of bed and walk Pain Numeric Pain Scale: 0-No Pain Comment: c/o general soreness Appearance pt supine in bed with head elevated upon arrival with son present. Physician present while pt sitting in chair resting between gait distances pt sitting up in recliner with LE's elevated, 2 sons present, call light and phone within reach. All needs met at end of session Mental Status Attachments: Saline Lock, Oxygen 3L O2/NC Transfers Therapy Code Descriptions/Definitions Functional [place] Measure: 0=Not Assessed/NA 4=Minimal Assistance 1=Total Assistance 5=Supervision or Setup 2=Maximal Assistance 6=Modified [place] 3=Moderate Assistance 7=Complete [place] Therapy Quality Codes: 6 Independent with activity with or without an assistive device 5 Patient requires set up or clean up by helper. Patient completes activity by themselves 4 Supervision or touching assist (CGA). [place] provide cues , steadying assist 3 The helper provides less than half the effort to complete the activity 2 The helper provides more than half the effort to complete the activity 1 Dependent. The helper does all the effort to complete an activity 7 Patient refused to complete or attempt activity 9 The patient did not perform the activity before the current illness or injury 88 Not attempted due to Medical conditions or safety concerns Transfers (B, C, W/C) (FIM): 4 Scootin Rollin Supine to/from Sit: 4 Sit to/from Stand: 4 CGA provided due to decreased BP and increased c/o dizziness with all transitions. 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 Operator Goals Longterm Goals PT Longterm Goals Time Frame: Jul 14, 2018 Transfers (B,C,W/C) (FIM): 6 Gait (FIM): 6 Gait distance (FIM): 3=150 ft Gait Level of Assist: 6 Gait Assistive Device: FWW PT Plan Problem List Problem List: Activity Tolerance, Functional Strength, Safety, Gait, Transfer Treatment/Plan Treatment Plan: Continue Plan of Care Treatment Plan: Bed Mobility, Education, Functional Activity Michel, Functional Strength, Gait, Safety, Therapeutic Exercise, Transfers Treatment Duration: Jul 24, 2018 Frequency: 6 times per week Estimated Hrs Per Day: .5 hour per day Patient and/or Family Agrees t: Yes Safety Risks/Education Patient Education: Gait Training, Transfer Techniques, Safety Issues Teaching Recipient: Patient Teaching Methods: Discussion Response to Teaching: Verbalize Understanding, Reinforcement Needed continues to require some inst for safety on hand placement during transitions Time/GCodes Time In: 859 Time Out: 928 Total Billed Treatment Time: 29 Total Billed Treatment 1 visit GT 15 min FA 14 min ANNY BEARD PTA Jul 28, 2018 09:37
[2018-07-28] MEDS: BENZONATATE 100 MG (TESSALON) CAPSULE PO PRN (09:52)
[2018-07-28] MEDS: MENTHOL/ZINC OXIDE (CALMOSEPTINE) 113 GM TUBE TOP SCH ×2 (09:52→21:11)
--- NOTE | 2018-07-28 11:30 | Cardiology Progress Note ---
Cardiology SOAP Progress Note Subjective: improved shortness of breath Objective: I&O/Vital Signs 07/28/18 07/28/18 07/28/18 07/28/18 01:00 01:17 04:00 06:27 Temp 97.0 Pulse 101 102 Resp 18 B/P (MAP) 101/53 (69) Pulse Ox 98 98 98 O2 Delivery Nasal Cannula Nasal Cannula Nasal Cannula O2 Flow Rate 3.00 3.00 3.00 07/28/18 07/28/18 07/28/18 07:00 07:53 10:23 Temp 97.2 Pulse 93 91 Resp 18 B/P (MAP) 93/56 (68) Pulse Ox 96 97 O2 Delivery Nasal Cannula Nasal Cannula O2 Flow Rate 3.00 3.00 07/27/18 23:59 Intake Total 1557 ml Output Total 1400 ml Balance 157 ml Weight (Pounds): 129 Weight (Ounces): 4.0 Weight (Calculated Kilograms): [id number] Constitutional: appears stated age, AAO x 3; No apparent distress; well- developed, well-nourished Respiratory: No accessory muscle use, No respiratory distress, No chest tender , No chest expansion is symmetric; chest is bilaterally symmetric; No lungs clear to percussion; crackles; No rhonchi, No rales, No stridor, No wheezing, No pleural rub, No other Cardiovascular: regular rate-rhythm; No irregularly irregular, No extra beats, No parasternal heave is noted, No JVD, No edema, No bradycardia, No tachycardia , No point of maximal impulse, No cardiac thrills are palpable; S1 and S2; No gallop/S3, No gallop/S4, No diastolic murmur, No systolic murmur, No friction rub, No click, No other Gastrointestional: No tender, No soft, No round, No distended, No pulsatile mass, No organomegaly, No guarding, No rebound, No tenderness, No hernia, No mass, No audible bowel sounds, No abnormal bowel sounds, No abdominal bruits, No spleenomegaly, No other Extremities: pedal edema; No clubbing, No cyanosis, No significant edema Neurologic/Psychiatric: no motor/sensory deficits, alert, normal mood/affect, oriented x 3, power is 5/5 both on sides Skin: No normal color, No warm/dry, No cyanosis, No cool, No diaphoresis, No damp, No ecchymosis, No jaundice, No mottled; pallor; No rash, No tattoos/ piercings, No ulcerations, No rash on exposed areas, No ulcerations on exposed areas, No other Results/Procedures: Labs Laboratory Tests 07/27/18 16:09: Glucometer 227H 07/27/18 16:31: Hemoglobin 7.7L, Hematocrit 24L 07/27/18 21:07: Glucometer 226H 07/28/18 06:01: Hemoglobin 7.4L, Hematocrit 23L, Sodium Level 132L, Potassium Level 4.5, Chloride Level 97L, Carbon Dioxide Level 25, Anion Gap 10, Blood Urea Nitrogen 20H, Creatinine 0.97, Estimat Glomerular Filtration Rate > 60, BUN/Creatinine Ratio 21, Glucose Level 240H, Calcium Level 8.6 07/28/18 06:06: Glucometer 262H 07/28/18 10:53: Glucometer 292H Microbiology 07/07/18 Blood Culture - Final, Complete No growth 07/16/18 MRSA Screen - Final, Complete MRSA not isolated 07/06/18 Urine Culture - Final, Complete NO GROWTH A/P: Assessment/Dx: Acute respiratory failure, pulmonary edema, improved. Worsening anemia, Recent GI bleeding, Severe Peptic ulcer disease, Severe dilated cardiomyopathy, Smoking, HTN, DM, Hyperlipidemia, Hypokalemia, CKD, Leg discomfort, Aortic insufficiency, ASD, Acute diastolic CHF, Pulmonary HTN, COPD Plan: Acute respiratory failure, pulmonary edema, chest x-ray shows pulmonary edema, increased BNP (on admission). Improved significantly. Euvolemic today. DC lasix Recent GI bleeding, on PPI and sucrafate. received PRBCs this morning. Likely GI bleeding. Dr. Acharya following. EGD - Duodenal ulcer bleed - treated with cautery/clip. Severe Peptic ulcer disease, Severe dilated cardiomyopathy, LVEF on Echo 25% with anterior/apical hypokinesis. very likely due to CAD. 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 Collaterals from the left circumflex artery. Moderate left circumflex artery stenosis. Severe LAD stenosis treated successfully with drug-eluting stents. LVEDP 28 mmHg. Lifevest for primary prevention of sudden cardiac , dilated cardiomyopathy. Patient is wearing a LifeVest. Smoking - smoking cessation was strongly recommended. HTN, lisinopril and BB. DM, continue metformin for now. Hyperlipidemia, statin therapy. Hypokalemia, CKD; Diabetic nephropathy likely. Resting Leg discomfort, lifestyle limiting claudication, bilateral significant PAD. Aortic insufficiency, follow clinically. 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 Acute diastolic CHF, pseudonormal diastolic dysfunction. caution with IV fluids. Pulmonary HTN, likely secondary to COPD. COPD, defer to primary team. Thank you for your consultation. Please call me if you have any questions. Kusum Chandra MD, FACP, FACC, FSCAI, FHRS, CCDS Interventional Cardiology Cardiac Electrophysiology Vascular Medicine and Endovascular Interventions Focused Exam Time of Focused Exam: 07:40 Jose CHANDRA MD Jul 28, 2018 11:30
--- NOTE | 2018-07-28 11:47 | Occupational Ther Daily Note ---
OT Current Status-Daily Note Subjective Pt alert, lying in bed. BP and hemoglobin low. Pt agrees to participate in therapy. Mental Status/Objective Patient Orientation: Person, Place, Time, Situation Therapy Code Descriptions/Definitions Functional [place] Measure: 0=Not Assessed/NA 4=Minimal Assistance 1=Total Assistance 5=Supervision or Setup 2=Maximal Assistance 6=Modified [place] 3=Moderate Assistance 7=Complete [place] Attachments: IV, Telemetry (Life vest) Other Treatment Pt stated that he had shower yesterday. Pt requested to have medium resistance theraband instead of light resistance. Pt was able to demonstrate 2 UE exercises, 1 set 10 reps, needed recovery breaks between reps. Introduced 2 more exercises, pt able to demonstrate understanding and proper mechanics. Extended recovery time needed after 5 reps for each exercise. After therapy, pt lying in bed with call light/phone in reach. All needs met in room. Education OT Patient Education: Exercise program Teaching Recipient: Patient Teaching Methods: Demonstration Response to Teaching: Verbalize Understanding, Return Demonstration OT Short Term Goals Short Term Goals 1=Demonstrate adherence to instructed precautions during ADL tasks. 2=Patient will verbalize/demonstrate understanding of assistive devices/ modifications for ADL. 3=Patient will improve strength/tolerance for activity to enable patient to perform ADL's. OT [facility] Goals [facility] Goals Time Frame: Aug 11, 2018 Eating (FIM): 7 Grooming(FIM): 6 Bathing(FIM): 6 Upper Body Dressing(FIM): 6 Lower Body Dressing(FIM): 6 Toileting(FIM): 6 Toilet/Commode Transfer(FIM): 6 Shower Transfer(FIM): 6 Additional Goals: 1-Demonstrate ADL Tasks, 2-Verbalize Understanding, 3- ImproveStrength/Michel 1=Demonstrate adherence to instructed precautions during ADL tasks. 2=Patient will verbalize/demonstrate understanding of assistive devices/ modifications for ADL. 3=Patient will improve strength/tolerance for activity to enable patient to perform ADL's. OT Education/Plan Problem List/Assessment Pt would benefit from skilled Ot to increase his independence in basic self care to allow him to return to his apartment to live independently Discharge Recommendations Plan/Recommendations: Continue POC Treatment Plan/Plan of Care Patient would benefit from OT for education, treatment and training to promote independence in ADL's, mobility, safety and/or upper extremity function for ADL' s. Plan of Care: ADL Retraining, Functional Mobility, UE Funct Exercise/Act, UE Neuromus Re-Ed/Coord, OTHER (energy conservation education and practice) Treatment Duration: Aug 11, 2018 Frequency: 5 times per week Estimated Hrs Per Day: .5 hour per day Agreement: Yes Rehab Potential: Good Time/GCodes Start Time: 11:30 Stop Time: 11:45 Total Time Billed (hr/min): 15 Billed Treatment Time 1 visit-EX 1 (15 min) CALIXTO DOMÍNGUEZ Jul 28, 2018 11:46
[2018-07-28 16:45] LABS: HEMOGLOBIN 6.6 G/DL (13.3-17.7)
[2018-07-28] MEDS: NS IV 1000 ML 1,000 ML IV SCH (17:13)
--- NOTE | 2018-07-28 20:30 | Progress Note ---
Subjective Date Seen by a Provider: Jul 28, 2018 Time Seen by a Provider: 08:30 Subjective/Events-last exam Patient doing pretty well. He has no abdominal pain. He is tolerating liquids. Hemoglobin relatively stable. No new complaints. Son at bedside for discussion with Dr. Moore and myself Focused Exam Time of Focused Exam: 07:40 Objective Exam Vital Signs Date Time Temp Pulse Resp B/P (MAP) Pulse Ox O2 Delivery O2 Flow Rate FiO2 07/28/18 20:12 98.1 95 18 100/56 (71) 99 Nasal Cannula 3.00 07/28/18 19:00 100 07/28/18 18:47 98 Nasal Cannula 3.00 07/28/18 18:45 98.0 100 18 118/56 98 Nasal Cannula 2.80 07/28/18 18:30 97.6 93 18 107/52 98 Nasal Cannula 2.50 07/28/18 16:03 98.9 102 18 105/65 (78) 100 Nasal Cannula 3.00 07/28/18 13:00 92 07/28/18 12:00 97.6 92 18 92/54 (67) 98 Nasal Cannula 3.00 07/28/18 10:23 97 Nasal Cannula 3.00 07/28/18 09:00 Nasal Cannula 3.00 07/28/18 07:53 97.2 91 18 93/56 (68) 96 Nasal Cannula 3.00 07/28/18 07:00 93 07/28/18 06:27 98 Nasal Cannula 3.00 07/28/18 04:00 97.0 102 18 101/53 (69) 98 Nasal Cannula 3.00 07/28/18 01:17 98 Nasal Cannula 3.00 07/28/18 01:00 101 07/27/18 23:19 98.9 101 18 100/57 (71) 98 Nasal Cannula 3.00 07/27/18 21:45 96 Nasal Cannula 3.00 07/27/18 21:00 Nasal Cannula 3.00 I & O 07/28/18 07:00 Intake Total 1917 ml Output Total 1700 ml Balance 217 ml Capillary Refill : Less Than 3 SecondsLess Than 3 Seconds General Appearance: No Apparent Distress, WD/WN, Chronically ill, Thin HEENT: PERRL/EOMI; No Scleral Icterus (L), No Scleral Icterus (R) Neck: Non Tender Respiratory: Chest Non Tender, No Accessory Muscle Use, No Respiratory Distress Cardiovascular: Regular Rate, Rhythm, Normal Peripheral Pulses Gastrointestinal: non tender, soft, no organomegaly, no pulsatile mass Extremity: Non Tender Neurologic/Psychiatric: Alert, Oriented x3, No Motor/Sensory Deficits, Normal Mood/Affect Skin: Normal Color, Warm/Dry Results Lab Laboratory Tests 07/27/18 21:07: Glucometer 226H 07/28/18 06:01: Hemoglobin 7.4L, Hematocrit 23L, Sodium Level 132L, Potassium Level 4.5, Chloride Level 97L, Carbon Dioxide Level 25, Anion Gap 10, Blood Urea Nitrogen 20H, Creatinine 0.97, Estimat Glomerular Filtration Rate > 60, BUN/Creatinine Ratio 21, Glucose Level 240H, Calcium Level 8.6 07/28/18 06:06: Glucometer 262H 07/28/18 10:53: Glucometer 292H 07/28/18 16:05: Glucometer 284H 07/28/18 16:33: Hemoglobin 6.6*L, Hematocrit 21L Microbiology 07/07/18 Blood Culture - Final, Complete No growth 07/16/18 MRSA Screen - Final, Complete MRSA not isolated 07/06/18 Urine Culture - Final, Complete NO GROWTH Assessment/Plan Assessment/Plan Assessment/Plan Anemia with GI bleed most likely upper due to duodenal ulcers and hx dark tarry stools Posttraumatic stress disorder Duodenal ulcers - no signs of active bleed seen during EGD Status post PCI to LAD Pulmonary edema Patient on Protonix, Carafate, tolerating diet. following hgb, continue to follow and will transfuse as needed pulmonary edema - breathing easier Medical management Patient status post EGD with injection of epinephrine and resolution clip placed for bleeding duodenal ulcer. hgb stable will advance to dysphagia 1 diet follow hgb Clinical Quality Measures DVT/VTE Risk/Contraindication: Risk Factor Score Per Nursin RFS Level Per Nursing on Admit: 4+=Very High JAVIER MARTINEZ DO Jul 28, 2018 20:30
[2018-07-28] MEDS: ATORVASTATIN 80 MG (LIPITOR) TABLET PO SCH (21:09)
[2018-07-29] VITALS (11 sets, daily range): BP systolic 102–129; BP diastolic 0–60
[2018-07-29] MEDS: NYSTATIN ORAL SUSP 5 ML UDC PO SCH ×5 (00:18→23:36)
[2018-07-29] MEDS: RT-ALBUTEROL SULF 2.5 MG/3 ML PRE-MIX VIAL INH SCH ×6 (02:30→22:56)
[2018-07-29] MEDS: NS IV 1000 ML 1,000 ML IV SCH ×2 (04:30→15:53)
[2018-07-29] MEDS: CATHETER FLUSH 10 ML SYR IV SCH ×3 (05:17→23:35)
[2018-07-29] MEDS: SUCRALFATE 1 GM (CARAFATE) TAB PO SCH ×4 (05:17→21:47)
[2018-07-29 06:34] LABS: BUN/CREATININE RATIO 26; CARBON DIOXIDE 25 MMOL/L (21-32); CHLORIDE 101 MMOL/L (98-107); CREATININE SERUM 0.85 MG/DL (0.60-1.30); GFR ESTIMATED > 60; GLUCOSE 138 MG/DL (70-105); POTASSIUM 4.4 MMOL/L (3.6-5.0); SODIUM 134 MMOL/L (135-145)
[2018-07-29] MEDS: inSUlin ASPART (NovoLOG) 1 UNIT/0.01 ML (CHARGE PER UNIT) SC SCH ×4 (06:36→20:55)
[2018-07-29] MEDS: UMECLIDINIUM BROMIDE (INCRUSE ELLIPTA) 7'S IH SCH (06:37)
[2018-07-29] MEDS: RT-ADVAIR HFA 115/21 MCG PER PUFF IH SCH ×2 (06:37→22:56)
[2018-07-29 07:16] LABS: HEMOGLOBIN 6.4 G/DL (13.3-17.7)
[2018-07-29] MEDS ORDERED: NS IV 500 ML 500 ML ONE (08:09)
--- NOTE | 2018-07-29 09:20 | Progress Note ---
Subjective Date Seen by a Provider: Jul 29, 2018 Time Seen by a Provider: 09:18 Subjective/Events-last exam drop in hgb. black stools. transfused one unit last night. no other complaints at this time. denies n/v fever sweats chills shortness of breath or chest pain. Focused Exam Time of Focused Exam: 07:40 Objective Exam Vital Signs Date Time Temp Pulse Resp B/P (MAP) Pulse Ox O2 Delivery O2 Flow Rate FiO2 07/29/18 07:00 92 07/29/18 06:37 98 Nasal Cannula 3.00 07/29/18 03:40 98.4 95 20 102/51 (68) 100 Nasal Cannula 3.00 07/29/18 02:30 98 Nasal Cannula 3.00 07/29/18 01:00 100 07/28/18 23:50 98.4 93 18 83/53 (63) 100 Nasal Cannula 3.00 07/28/18 21:06 98.1 95 18 100/56 99 Nasal Cannula 3.00 07/28/18 21:00 Nasal Cannula 3.00 07/28/18 20:12 98.1 95 18 100/56 (71) 99 Nasal Cannula 3.00 07/28/18 19:00 100 07/28/18 18:47 98 Nasal Cannula 3.00 07/28/18 18:45 98.0 100 18 118/56 98 Nasal Cannula 2.80 07/28/18 18:30 97.6 93 18 107/52 98 Nasal Cannula 2.50 07/28/18 16:03 98.9 102 18 105/65 (78) 100 Nasal Cannula 3.00 07/28/18 13:00 92 07/28/18 12:00 97.6 92 18 92/54 (67) 98 Nasal Cannula 3.00 07/28/18 10:23 97 Nasal Cannula 3.00 I & O 07/29/18 07:00 Intake Total 1910 ml Output Total 925 ml Balance 985 ml Capillary Refill : Less Than 3 SecondsLess Than 3 Seconds General Appearance: No Apparent Distress, WD/WN, Chronically ill, Thin HEENT: PERRL/EOMI; No Scleral Icterus (L), No Scleral Icterus (R) Neck: Non Tender Respiratory: Chest Non Tender, No Accessory Muscle Use, No Respiratory Distress Cardiovascular: Regular Rate, Rhythm, Normal Peripheral Pulses Gastrointestinal: non tender, soft, no organomegaly, no pulsatile mass Extremity: Non Tender Neurologic/Psychiatric: Alert, Oriented x3, No Motor/Sensory Deficits, Normal Mood/Affect Skin: Normal Color, Warm/Dry Results Lab Laboratory Tests 07/28/18 10:53: Glucometer 292H 07/28/18 16:05: Glucometer 284H 07/28/18 16:33: Hemoglobin 6.6*L, Hematocrit 21L 07/28/18 20:37: Glucometer 219H 07/29/18 05:45: Hemoglobin 6.4*L, Hematocrit 20*L, Sodium Level 134L, Potassium Level 4.4, Chloride Level 101, Carbon Dioxide Level 25, Anion Gap 8, Blood Urea Nitrogen 22H, Creatinine 0.85, Estimat Glomerular Filtration Rate > 60, BUN/Creatinine Ratio 26, Glucose Level 138H, Calcium Level 8.0L 07/29/18 05:56: Glucometer 154H Microbiology 07/07/18 Blood Culture - Final, Complete No growth 07/16/18 MRSA Screen - Final, Complete MRSA not isolated 07/06/18 Urine Culture - Final, Complete NO GROWTH Assessment/Plan Assessment/Plan Assessment/Plan Anemia with GI bleed most likely upper due to duodenal ulcers and hx dark tarry stools Posttraumatic stress disorder Duodenal ulcers - no signs of active bleed seen during EGD Status post PCI to LAD Pulmonary edema Patient on Protonix, Carafate, tolerating diet. following hgb, continue to follow and will transfuse as needed pulmonary edema - breathing easier Medical management Patient status post EGD with injection of epinephrine and resolution clip placed for bleeding duodenal ulcer. hgb dropping received one unit of blood last night will get 2 units today discussed repeating egd to see if ulcer rebleeding. he understands risks and benefits and wishes to proceed NPO EGD TODAY Clinical Quality Measures DVT/VTE Risk/Contraindication: Risk Factor Score Per Nursin RFS Level Per Nursing on Admit: 4+=Very High JAVIER MARTINEZ DO Jul 29, 2018 09:20
[2018-07-29] MEDS: diphenhydrAMINE 25 MG TAB (BENADRYL) PO PRN ×2 (09:21→16:45)
[2018-07-29] MEDS: ALPRAZolam 0.5 MG (XANAX) TAB PO SCH ×2 (09:22→21:46)
[2018-07-29] MEDS: PARoxetine 20 MG (PAXIL) TAB PO SCH ×2 (09:26→21:46)
--- NOTE | 2018-07-29 09:30 | Occ Therapy Progress Note ---
Therapy Progress Note Due to decrease in medical status unable to see pt. Pt request per nrsg to hold therapies today due to increased fatigue. Pt receiving blood today. Will check on pt tomorrow. CALIXTO DOMÍNGUEZ Jul 29, 2018 09:30
--- NOTE | 2018-07-29 10:23 | Progress Note (SOAP) ---
Subjective Subjective/Events-last exam Afebrile. Hemoglobin dropped below 7 yesterday pm and one unit transfused, made NPO for repeat procedure. This am hemoglobin decreased further in spite of the PRBCs, given another 2 units this am. He does feel dizzy if he sits up, but denies any other concerns. Review of Systems Date Seen by Provider: Jul 29, 2018 Time Seen by Provider: 10:06 Focused Exam Time of Focused Exam: 07:40 Objective Exam Last Set of Vital Signs Vital Signs Date Time Temp Pulse Resp B/P (MAP) Pulse Ox O2 Delivery O2 Flow Rate FiO2 07/29/18 10:16 98 Nasal Cannula 3.00 07/29/18 07:00 92 07/29/18 03:40 98.4 20 102/51 (68) Capillary Refill : Less Than 3 SecondsLess Than 3 Seconds I&O Intake and Output 07/29/18 00:00 Intake Total 2270 ml Output Total 900 ml Balance 1370 ml Intake Oral 1460 ml Other 810 ml Output Urine Total 900 ml # Bowel Movements 1 General: Alert, No Acute Distress Lungs: Clear to Auscultation, Normal Air Movement Heart: Regular Rate, No Murmurs Abdomen: Normal Bowel Sounds, Soft Extremities: No Edema Neuro: Normal Speech Psych/Mental Status: Mental Status NL Results/Procedures Lab Laboratory Tests 07/28/18 10:53: Glucometer 292H 07/28/18 16:05: Glucometer 284H 07/28/18 16:33: Hemoglobin 6.6*L, Hematocrit 21L 07/28/18 20:37: Glucometer 219H 07/29/18 05:45: Hemoglobin 6.4*L, Hematocrit 20*L, Sodium Level 134L, Potassium Level 4.4, Chloride Level 101, Carbon Dioxide Level 25, Anion Gap 8, Blood Urea Nitrogen 22H, Creatinine 0.85, Estimat Glomerular Filtration Rate > 60, BUN/Creatinine Ratio 26, Glucose Level 138H, Calcium Level 8.0L 07/29/18 05:56: Glucometer 154H Microbiology 07/07/18 Blood Culture - Final, Complete No growth 07/16/18 MRSA Screen - Final, Complete MRSA not isolated 07/06/18 Urine Culture - Final, Complete NO GROWTH Radiology Assessment/Plan Assessment/Plan Assessment & Plan (1) Acute and chronic respiratory failure with hypoxia Status: Acute Assessment & Plan: 07/17: Arely consulted today, encourage patient to continue with Aerobike at least every hr, encouraged getting to edge of bed, will titrate as tolerated 07/18: Continue lasix for pulmonary edema, will titrate as tolerated 07/21: improved; down to 2.5L HF NC 07/28 stable on 2-3 lpm supplemental oxygen (2) Pulmonary edema cardiac cause Status: Acute Assessment & Plan: 07/17: Dr Chandra added lasix today, will diuresis and monitor renal function 07/21: improved 07/28- remains on IV lasix daily, defer to Cardiology for timing on transition to oral 07/29- lasix d/c'd per Cardiology yesterday (3) GI bleed Status: Resolved Assessment & Plan: Pt required another unit of PRBCs last night; Hgb stable for now. EGD with Patrizia today. Consider colonoscopy outpatient, should EGD come back negative. 07/09- EGD yesterday with large ulcers, not actively bleeding. Added sucralfate to pantoprazole but hemoglobin below 6 again this am. 2 units PRBCs, f/u after. 07/10- No vomiting, Hgb stable since transfusion, if continues to be stable would be stable for cath Thursday, Will advance diet today per surgery recommendations 07/11- Hgb stable, Will get retic count today, Start Fe infusions 07/12- Hgb stable today, will discuss case with surgery to see how long they would like to wait for cath, IV iron 07/13: Hgb Stable, continue IV iron 07/14: Hgb down today, discussed with Dr Acharya and will continue to monitor, Continue IV iron 07/15: Hgb up today, continue IV iron replacement 07/16: Hgb stable, continue IV Iron, cath today 07/17-07/20: Stable 07/21 - Medically stable but continued weakness and limited ambulation. Will do OT eval. Consult for SNU. Anticipate DC to [facility] by Thursday. Plan for PVD intervention by Dr. Chandra after discharge, possibly next week. 07/22 - Hb down from 8 to 6.7 - transfuse 2U prbc, will recheck H/H. Per Dr. Acharya if Hb continues to drop will do EGD. Plan to hold transfer to SNU until Thursday if patient stabilizes. 07/23 - Hb 9.3 after transfusion, back down to 7.8 this am. Will transfuse another [address] Acharya planning to do EGD. Dr. Fox to assume care for the weekend.- EGD done 07/23 with control of bleeding duodenal ulcer with epinephrine and clip 07/24/2018 -hemoglobin yesterday at 530 p.m. was 8.9 We will plan on rechecking this In the morning of July 25. It appears that he is not actively bleeding. I spoke with Dr. Acharya and we will go ahead and start clear liquid diet this morning 07/25/2018 - hemoglobin this morning was noted to be 8.0. This is a drop from 8.9. His hemoglobin will be rechecked in the morning. Also surgical input today. We'll defer on advancing diet until surgical evaluation today. 07/26- hypotensive overnight but hgb stable, will follow q6 today 07/27- hemoglobin with trend down, will continue q6 monitoring, appreciate Dr. Acharya's recommendations. 07/28- overall hemoglobin stable around 7.4, checking q12. Discussed with Dr. Acharya and family this am, plan for outpatient colonoscopy when more stable, anticipate possible d/c tomorrow or Thursday. 07/29- hemoglobin with recurrent drop to 6.6 yesterday s/p 1 unit, down to 6.4 this am, 2 more units given and plan for repeat scope Qualifiers: Qualified Codes: K92.2 - Gastrointestinal hemorrhage, unspecified (4) Urinary retention due to benign prostatic hyperplasia Status: Resolved Assessment & Plan: Catheter placed 07/07 due to significant retention. 07/08 start Flomax, may need to d/c with liriano depending on course. 07/15: D/c liriano today 07/28 remains on tamsulosin, BP low will try switching to finasteride. (5) Acute systolic CHF (congestive heart failure) Status: Acute Assessment & Plan: 07/10: Echo with EF 25%, plan for cath when anemia is stable 07/11: Discussed case with cardiology, waiting to get cath procedure done 07/13: Cath to be done Thursday or Sunday 07/15: Plan for cath tomorrow 07/16: Cath today with stents placed 07/17: Dr Chandra has ordered lifevest for patient 07/21 : Lifevest in place; pt has had some discharges overnight, being managed by Dr. Chandra 07/28- patient not wanting to wear lifevest inpatient due to discomfort, he states the telemetry will get him help quickly. Discussed risks of life threatening arryhthmia, he states he will use when he is discharged. Continued on lisinopril, metoprolol, aspirin and ticegrelor. Not able to tolerate lisinopril and metoprolol last several days even at low dose due to hypotension. Difficult to balance risks of bleeding with need for antiplatelet therapy. 07/[address] this am (6) Debility Assessment & Plan: PT/OT, Will need rehab vs SNF following hospitalization 07/18: Will consult Rehab 07/21: SW working on placement for halfway; consult in to [facility] 07/28- walking with PT and having daily improvements, plan for d/c to [facility] tomorrow or Thursday depending on course next 24 hours. (7) Hyperglycemia Status: Acute Assessment & Plan: sliding scale insulin, diabetic diet when taking PO 07/10: A1c pending See DMII (8) Lower extremity edema Status: Resolved Assessment & Plan: Venous insufficiency/immobility versus related to his kidney function. Consider echocardiogram pending clinical course. 07/09- complaining of cough as well, will obtain echocardiogram 07/10- Abnormal echo, EF 25%, cardiology following 07/12: Discussed the importance of activity, getting to edge of bed, leg exercises and elevation of feet 07/14: Patient up in chair today (9) Severe anemia Status: Acute Assessment & Plan: Pt required another unit of PRBCs last night. EGD with Patrizia today. Consider colonscopy outpatient, should EGD come back negative. 07/09- hgb below 6 this am, 2 units prbc today, repeat hemoglobin after. 07/22 - Hb down from 8 to 6.7 - transfuse 2U prbc, will recheck H/H. Per Dr. Acharya if Hb continues to drop will do EGD. Plan to hold transfer to SNU until Thursday if patient stabilizes. 07/23 - Hb 9.3 after transfusion, back down to 7.8 this am. Will transfuse another [address] Acharya planning to do EGD See GI bleed dx. (10) Hypokalemia Status: Resolved Assessment & Plan: Replace and recheck. (11) Lactic acidosis Status: Resolved Assessment & Plan: Unclear etiology with no source of infection. Improved with IVF. Denies abdominal pain to suggest ischemia. (12) Diabetes mellitus, type 2 Status: Chronic Assessment & Plan: Diabetic diet when taking oral. Sliding scale insulin. 07/21: A1c 7.9%; BS running 200-300, will add Glyburide 2.5 mg daily Qualifiers: (13) Right foot drop Status: Acute Assessment & Plan: MRI showed only lumbar spondylosis. No clear explanation for his foot drop. 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 (14) Poor appetite Status: Acute Assessment & Plan: Denies pain, concern for underlying serious condition given his anemia and weakness. Endoscopy recommended in vs outpatient depending on course. 07/08 EGD today 07/09 EGD yesterday with ulcers, treating with pantoprazole and sucralfate, biopsies pending Bx with esophagitis, no H pylori (15) Leg weakness, bilateral Status: Acute Assessment & Plan: PT. (16) BPH (benign prostatic hyperplasia) Status: Chronic Assessment & Plan: Previously on medication, he stopped due to side effects. Qualifiers: (17) PTSD (post-traumatic stress disorder) Status: Chronic Assessment & Plan: Resume home medications. (18) COPD (chronic obstructive pulmonary disease) Status: Chronic Assessment & Plan: Resume home inhalers (19) DVT prophylaxis Status: Acute Assessment & Plan: No pharmacologic ppx with active bleed. SCDs. Clinical Quality Measures DVT/VTE Risk/Contraindication: Risk Factor Score Per Nursin RFS Level Per Nursing on Admit: 4+=Very High JOHN VILLALPANDO MD Jul 29, 2018 10:23
--- NOTE | 2018-07-29 11:14 | Physical Therapy Progress Note ---
Therapy Progress Note 1020am Attempted PT visit, spoke with pt, no PT treatment at this time. Pt with low HGB and BP, receiving blood. Pt states he will be having a procedure later today and is very exhausted right now. Will attempt PT treatment tomorrow if indicated ANNY BEARD PTA Jul 29, 2018 11:14
[2018-07-29] MEDS ORDERED: LACTATED RINGERS 1,000 ML IV ONE ×2 (12:15→13:15)
[2018-07-29] MEDS ORDERED: proPOfol 200 MG/20 ML (DIPRIVAN) VIAL IV ONE (12:39)
[2018-07-29] MEDS ORDERED: MIDAZOLAM 2 MG/2 ML (VERSED) VIAL ONE (12:40)
[2018-07-29] MEDS ORDERED: EPINEPHrine INJECTION 1 MG/ML AMP ONE (12:47)
[2018-07-29] MEDS ORDERED: HURRICAINE EXT TUBE (BENZOCAINE) XX ONE (13:15)
[2018-07-29] MEDS ORDERED: EPINEPHrine INJECTION 1 MG/ML AMP IJ PRN (13:30)
--- NOTE | 2018-07-29 15:32 | Cardiology Progress Note ---
Cardiology SOAP Progress Note Subjective: EGD today. Objective: I&O/Vital Signs 07/29/18 07/29/18 07/29/18 07/29/18 06:37 07:00 08:00 09:00 Temp 97.8 Pulse 92 108 Resp 16 B/P (MAP) 104/60 (75) Pulse Ox 98 99 O2 Delivery Nasal Cannula Nasal Cannula Nasal Cannula O2 Flow Rate 3.00 3.00 3.00 07/29/18 07/29/18 07/29/18 07/29/18 10:16 12:00 14:11 16:00 Temp 98.8 97.4 Pulse 94 99 Resp 16 16 B/P (MAP) 121/59 (79) 123/0 (41) Pulse Ox 98 98 98 99 O2 Delivery Nasal Cannula Nasal Cannula Nasal Cannula Nasal Cannula O2 Flow Rate 3.00 3.00 3.00 3.00 3.00 07/29/18 00:00 Intake Total 1910 ml Output Total 600 ml Balance 1310 ml Weight (Pounds): 147 Weight (Ounces): 8.0 Weight (Calculated Kilograms): [id number] Constitutional: appears stated age, AAO x 3; No apparent distress; well- developed, well-nourished Respiratory: No accessory muscle use, No respiratory distress, No chest tender , No chest expansion is symmetric; chest is bilaterally symmetric; No lungs clear to percussion; crackles; No rhonchi, No rales, No stridor, No wheezing, No pleural rub, No other Cardiovascular: regular rate-rhythm; No irregularly irregular, No extra beats, No parasternal heave is noted, No JVD, No edema, No bradycardia, No tachycardia , No point of maximal impulse, No cardiac thrills are palpable; S1 and S2; No gallop/S3, No gallop/S4, No diastolic murmur, No systolic murmur, No friction rub, No click, No other Gastrointestional: No tender, No soft, No round, No distended, No pulsatile mass, No organomegaly, No guarding, No rebound, No tenderness, No hernia, No mass, No audible bowel sounds, No abnormal bowel sounds, No abdominal bruits, No spleenomegaly, No other Extremities: pedal edema; No clubbing, No cyanosis, No significant edema Neurologic/Psychiatric: no motor/sensory deficits, alert, normal mood/affect, oriented x 3, power is 5/5 both on sides Skin: No normal color, No warm/dry, No cyanosis, No cool, No diaphoresis, No damp, No ecchymosis, No jaundice, No mottled; pallor; No rash, No tattoos/ piercings, No ulcerations, No rash on exposed areas, No ulcerations on exposed areas, No other Results/Procedures: Labs Laboratory Tests 07/28/18 20:37: Glucometer 219H 07/29/18 05:45: Hemoglobin 6.4*L, Hematocrit 20*L, Sodium Level 134L, Potassium Level 4.4, Chloride Level 101, Carbon Dioxide Level 25, Anion Gap 8, Blood Urea Nitrogen 22H, Creatinine 0.85, Estimat Glomerular Filtration Rate > 60, BUN/Creatinine Ratio 26, Glucose Level 138H, Calcium Level 8.0L 07/29/18 05:56: Glucometer 154H 07/29/18 11:33: Glucometer 202H 07/29/18 16:19: Microbiology 07/07/18 Blood Culture - Final, Complete No growth 07/16/18 MRSA Screen - Final, Complete MRSA not isolated 07/06/18 Urine Culture - Final, Complete NO GROWTH A/P: Assessment/Dx: Acute respiratory failure, pulmonary edema, improved. Worsening anemia, Recent GI bleeding, Severe Peptic ulcer disease, Severe dilated cardiomyopathy, Smoking, HTN, DM, Hyperlipidemia, Hypokalemia, CKD, Leg discomfort, Aortic insufficiency, ASD, Acute diastolic CHF, Pulmonary HTN, COPD Plan: Acute respiratory failure, pulmonary edema, chest x-ray shows pulmonary edema, increased BNP (on admission). Improved significantly. Euvolemic today. DC lasix Recent GI bleeding, on PPI and sucrafate. received PRBCs this morning. Likely GI bleeding. Dr. Acharya following. EGD - Duodenal ulcer bleed - treated with cautery/clip. Severe Peptic ulcer disease, Severe dilated cardiomyopathy, LVEF on Echo 25% with anterior/apical hypokinesis. very likely due to CAD. 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 Collaterals from the left circumflex artery. Moderate left circumflex artery stenosis. Severe LAD stenosis treated successfully with drug-eluting stents. LVEDP 28 mmHg. due to significant GI bleed, I will discontinue aspirin and only continue Plavix. I discussed at length with the patient's son that this may help with GI bleeding however there is a small chance that the patient may developed stent thrombosis. Lifevest for primary prevention of sudden cardiac , dilated cardiomyopathy. Patient is wearing a LifeVest. Smoking - smoking cessation was strongly recommended. HTN, lisinopril and BB. DM, continue metformin for now. Hyperlipidemia, statin therapy. Hypokalemia, CKD; Diabetic nephropathy likely. Resting Leg discomfort, lifestyle limiting claudication, bilateral significant PAD. Aortic insufficiency, follow clinically. 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 Acute diastolic CHF, pseudonormal diastolic dysfunction. caution with IV fluids. Pulmonary HTN, likely secondary to COPD. COPD, defer to primary team. Thank you for your consultation. Please call me if you have any questions. Kusum Chandra MD, FACP, FACC, FSCAI, FHRS, CCDS Interventional Cardiology Cardiac Electrophysiology Vascular Medicine and Endovascular Interventions Focused Exam Time of Focused Exam: 07:40 Jose CHANDRA MD Jul 29, 2018 3:32 pm
[2018-07-29] MEDS: TICAGRELOR 90 MG TABLET (BRILINTA) PO SCH ×2 (15:47→21:47)
[2018-07-29] MEDS: POLYETHYLENE GLYCOL 17 GM (MIRALAX) PACK PO SCH ×2 (15:48→21:46)
[2018-07-29] MEDS: ASPIRIN E.C. 81 MG (ECOTRIN) TAB PO SCH (15:48)
[2018-07-29] MEDS: SENNA W/DOCUSATE (SENOKOT S) TABLET PO SCH ×2 (15:49→21:47)
[2018-07-29] MEDS: PANTOPRAZOLE 40 MG (PROTONIX) TAB PO SCH ×2 (15:49→21:47)
[2018-07-29] MEDS: FINASTERIDE (PROSCAR) 5 MG TAB PO SCH (15:49)
[2018-07-29] MEDS: lisINopril 5 MG (PRINIVIL) TABLET PO SCH (15:50)
[2018-07-29] MEDS: MENTHOL/ZINC OXIDE (CALMOSEPTINE) 113 GM TUBE TOP SCH ×2 (15:51→21:48)
[2018-07-29] MEDS: NICOTINE 21 MG (NICODERM) PATCH TD SCH (15:51)
[2018-07-29] MEDS: PATCH REMOVAL TP SCH (15:52)
--- NOTE | 2018-07-29 16:18 | Progress Note-Post Operative ---
Post-Operative Progess Note Surgeon (s)/Manager Marketing Communications (s) Surgeon JAVIER MARTINEZ DO Manager Marketing Communications: na Pre-Operative Diagnosis ANEMIA, GI BLEED Post-Operative Diagnosis duodenal ulcer active bleed Procedure & Operative Findings Date of Procedure 07/29/18 Procedure Performed/Findings egd c injection of epinephrine to control bleeding ulceration of duodenum Anesthesia Type per rigger helper Estimated Blood Loss Estimated blood loss (mL): min Specimens/Packing Specimens Removed na JAVIER MARTINEZ DO Jul 29, 2018 16:18
[2018-07-29] MEDS: ATORVASTATIN 80 MG (LIPITOR) TABLET PO SCH (21:47)
--- NOTE | 2018-07-29 23:28 | OPERATIVE REPORT ---
DATE OF SERVICE: 07/29/2018 PREOPERATIVE DIAGNOSES: Anemia, gastrointestinal bleed. POSTOPERATIVE DIAGNOSIS: Duodenal ulcer active bleeding. PROCEDURE: EGD with injection of epinephrine to control bleeding ulceration of the duodenum. SURGEON: Javier Acharya DO ANESTHESIA: Per [employer]. ESTIMATED BLOOD LOSS: Minimal. COMPLICATIONS: None. INDICATIONS: The patient is a 67-year-old male with a GI bleed. He is on Brilinta and aspirin due to recent stent this hospitalization. The patient is on Protonix b.i.d. and Carafate before meals and at bedtime. The patient started having black stools again and drop in hemoglobin. He understands risks and benefits of procedure and wished to proceed with procedure. Consent was signed in the chart. DESCRIPTION OF PROCEDURE: The patient was taken to the endoscopy suite, placed in the left lateral recumbent position. Timeout was performed. Scope was inserted in mouth, down the esophagus, stomach and into the duodenum. Active bleeding from the duodenal ulceration was present. This was irrigated with copious amounts of irrigation, still seeing the active bleeding. Epinephrine was injected circumferentially around the bleeding ulcer and hemostasis was achieved. This was irrigated with copious amounts of irrigation and again the bleeding had stopped. No other active bleeding was visualized. Scope was then slowly retracted back into the stomach noting no polyps, masses or ulcerations. Scope was then continuously retracted back into the distal esophagus where there were no polyps, masses or ulcerations. Scope was slowly retracted back until completely removed, noting no other pathology. RECOMMENDATIONS: The patient will stay n.p.o. at this time. We will continue to monitor hemoglobin and transfuse as needed. The patient would also possibly need a repeat endoscopy. Other considerations would be Interventional Radiology for interventional procedure. Job ID: [id number] DocumentID: [id number] Dictated Date: 07/29/2018 16:23:47 [place] Date: 07/29/2018 21:06:50 Dictated By: JAVIER ACHARYA DO
[2018-07-30] VITALS: BP 109/52
[2018-07-30] MEDS: NS IV 1000 ML 1,000 ML IV SCH ×3 (01:33→21:17)
[2018-07-30] MEDS: RT-ALBUTEROL SULF 2.5 MG/3 ML PRE-MIX VIAL INH SCH ×6 (02:46→22:24)
[2018-07-30 04:11] VITALS: BP 129/62
[2018-07-30 05:45] LABS: HEMOGLOBIN 8.4 G/DL (13.3-17.7); MEAN PLATELET VOLUME 8.6 FL (7.4-10.4); RED BLOOD COUNT 2.72 10^6/uL (4.35-5.85); RED CELL DISTRIBUTION WIDTH 14.8 % (10.0-14.5); WHITE BLOOD COUNT 8.5 10^3/uL (4.3-11.0)
[2018-07-30 06:10] LABS: BUN/CREATININE RATIO 24; CALCIUM 8.1 MG/DL (8.5-10.1); CARBON DIOXIDE 22 MMOL/L (21-32); CHLORIDE 106 MMOL/L (98-107); GFR ESTIMATED > 60; GLUCOSE 124 MG/DL (70-105); POTASSIUM 4.1 MMOL/L (3.6-5.0); SODIUM 136 MMOL/L (135-145)
[2018-07-30] MEDS: inSUlin ASPART (NovoLOG) 1 UNIT/0.01 ML (CHARGE PER UNIT) SC SCH ×4 (06:15→21:18)
[2018-07-30] MEDS: NYSTATIN ORAL SUSP 5 ML UDC PO SCH ×4 (06:38→23:54)
[2018-07-30] MEDS: CATHETER FLUSH 10 ML SYR IV SCH ×3 (06:39→22:02)
[2018-07-30] MEDS: SUCRALFATE 1 GM (CARAFATE) TAB PO SCH ×4 (06:39→21:18)
[2018-07-30] MEDS: UMECLIDINIUM BROMIDE (INCRUSE ELLIPTA) 7'S IH SCH (06:40)
[2018-07-30] MEDS: RT-ADVAIR HFA 115/21 MCG PER PUFF IH SCH ×2 (06:40→22:24)
[2018-07-30 08:00] VITALS: BP 144/74
--- NOTE | 2018-07-30 09:34 | Physical Therapy Daily Note ---
PT Daily Note-Current Subjective Patient is on commode and agrees to PT. Pain Numeric Pain Scale: 5-Moderate Pain Location: Lower Location Body Site: Abdomen Pain Description: Pressure Mental Status Patient Orientation: Normal For Age Attachments: Oxygen, IV Transfers Therapy Code Descriptions/Definitions Functional [place] Measure: 0=Not Assessed/NA 4=Minimal Assistance 1=Total Assistance 5=Supervision or Setup 2=Maximal Assistance 6=Modified [place] 3=Moderate Assistance 7=Complete [place] Therapy Quality Codes: 6 Independent with activity with or without an assistive device 5 Patient requires set up or clean up by helper. Patient completes activity by themselves 4 Supervision or touching assist (CGA). [place] provide cues , steadying assist 3 The helper provides less than half the effort to complete the activity 2 The helper provides more than half the effort to complete the activity 1 Dependent. The helper does all the effort to complete an activity 7 Patient refused to complete or attempt activity 9 The patient did not perform the activity before the current illness or injury 88 Not attempted due to Medical conditions or safety concerns Transfers (B, C, W/C) (FIM): 6 Scootin Sit to/from Stand: 6 Weight Bearing Right Lower Extremity: Right Full Weight Bearing Left Lower Extremity: Left Full Weight Bearing Gait Training Gait (FIM): 1 Distance (FIM): 1=up to 49 ft Distance: 25' x 2 Gait Level of Assist: 5 Gait Persons Needed: 1 Gait Assistive Device: FWW functional Assessment Patient required assistance to cleanse after BM. Patient appears to self limit with gross motor activities. PT Short Term Goals Short Term Goals Time Frame: Jul 15, 2018 PT Pigment Pusher Goals Mcc Goals PT Pigment Pusher Goals Time Frame: Aug 14, 2018 Transfers (B,C,W/C) (FIM): 6 Gait (FIM): 6 Gait distance (FIM): 3=150 ft Gait Level of Assist: 6 Gait Assistive Device: FWW PT Plan Treatment/Plan Treatment Plan: Continue Plan of Care Treatment Plan: Bed Mobility, Education, Functional Activity Michel, Functional Strength, Gait, Safety, Therapeutic Exercise, Transfers Treatment Duration: Aug 14, 2018 Frequency: 6 times per week Estimated Hrs Per Day: .5 hour per day Patient and/or Family Agrees t: Yes Time/GCodes Time In: 858 Time Out: 907 Total Billed Treatment Time: 9 Total Billed Treatment 1 visit FA 9 min YONG TODD PT Jul 30, 2018 09:34
--- NOTE | 2018-07-30 10:35 | Occupational Ther Daily Note ---
OT Current Status-Daily Note Subjective Pt alert, sitting in recliner. Pt states that he isn't any better than yesterday and is tired. Pt declined to complete UE exercises or ADLs. Wanted to get back to bed. Mental Status/Objective Patient Orientation: Person, Place, Time, Situation Therapy Code Descriptions/Definitions Functional [place] Measure: 0=Not Assessed/NA 4=Minimal Assistance 1=Total Assistance 5=Supervision or Setup 2=Maximal Assistance 6=Modified [place] 3=Moderate Assistance 7=Complete [place] Attachments: IV, Oxygen, Telemetry Other Treatment Pt requested to go from recliner to bed. Pt was able to complete transfer with supervision. Mod I for bed mobility. Pt c/o fatigue and that he is too tired. After therapy, pt lying in bed with call light/phone in reach. All needs met in room. OT Short Term Goals Short Term Goals 1=Demonstrate adherence to instructed precautions during ADL tasks. 2=Patient will verbalize/demonstrate understanding of assistive devices/ modifications for ADL. 3=Patient will improve strength/tolerance for activity to enable patient to perform ADL's. OT Rehabilitation Program Manager Goals Rehabilitation Program Manager Goals Time Frame: Aug 11, 2018 Eating (FIM): 7 Grooming(FIM): 6 Bathing(FIM): 6 Upper Body Dressing(FIM): 6 Lower Body Dressing(FIM): 6 Toileting(FIM): 6 Toilet/Commode Transfer(FIM): 6 Shower Transfer(FIM): 6 Additional Goals: 1-Demonstrate ADL Tasks, 2-Verbalize Understanding, 3- ImproveStrength/Michel 1=Demonstrate adherence to instructed precautions during ADL tasks. 2=Patient will verbalize/demonstrate understanding of assistive devices/ modifications for ADL. 3=Patient will improve strength/tolerance for activity to enable patient to perform ADL's. OT Education/Plan Problem List/Assessment Pt would benefit from skilled Ot to increase his independence in basic self care to allow him to return to his apartment to live independently Discharge Recommendations Plan/Recommendations: Continue POC Treatment Plan/Plan of Care Patient would benefit from OT for education, treatment and training to promote independence in ADL's, mobility, safety and/or upper extremity function for ADL' s. Plan of Care: ADL Retraining, Functional Mobility, UE Funct Exercise/Act, UE Neuromus Re-Ed/Coord, OTHER (energy conservation education and practice) Treatment Duration: Aug 11, 2018 Frequency: 5 times per week Estimated Hrs Per Day: .5 hour per day Agreement: Yes Rehab Potential: Good Time/GCodes Start Time: 10:15 Stop Time: 10:28 Total Time Billed (hr/min): 13 Billed Treatment Time 1 visit-FA 1 (13 min) CALIXTO DOMÍNGUEZ Jul 30, 2018 10:34
[2018-07-30] MEDS: ACETAMINOPHEN 500 MG TAB (TYLENOL) PO PRN (10:58)
[2018-07-30] MEDS: SENNA W/DOCUSATE (SENOKOT S) TABLET PO SCH ×2 (10:58→21:20)
[2018-07-30] MEDS: lisINopril 5 MG (PRINIVIL) TABLET PO SCH (10:58)
[2018-07-30] MEDS: PARoxetine 20 MG (PAXIL) TAB PO SCH ×2 (10:58→21:17)
[2018-07-30] MEDS: FINASTERIDE (PROSCAR) 5 MG TAB PO SCH (10:58)
[2018-07-30] MEDS: POLYETHYLENE GLYCOL 17 GM (MIRALAX) PACK PO SCH ×2 (11:03→21:20)
[2018-07-30] MEDS: TICAGRELOR 90 MG TABLET (BRILINTA) PO SCH ×2 (11:03→21:18)
[2018-07-30] MEDS: NICOTINE 21 MG (NICODERM) PATCH TD SCH (11:03)
[2018-07-30] MEDS: ALPRAZolam 0.5 MG (XANAX) TAB PO SCH ×2 (11:03→21:18)
[2018-07-30] MEDS: PANTOPRAZOLE 40 MG (PROTONIX) TAB PO SCH ×2 (11:03→21:18)
[2018-07-30] MEDS: MENTHOL/ZINC OXIDE (CALMOSEPTINE) 113 GM TUBE TOP SCH ×2 (11:03→21:19)
[2018-07-30] MEDS: PATCH REMOVAL TP SCH (11:04)
[2018-07-30] MEDS: BENZONATATE 100 MG (TESSALON) CAPSULE PO PRN (11:14)
[2018-07-30 12:00] VITALS: BP 127/72
--- NOTE | 2018-07-30 14:52 | Progress Note (SOAP) ---
Subjective Subjective/Events-last exam EGD done yesterday by Dr. Acharya noted recurrence of bleeding, treated and resolved again. Review of Systems Date Seen by Provider: Jul 30, 2018 Time Seen by Provider: 10:15 Focused Exam Time of Focused Exam: 07:40 Objective Exam Last Set of Vital Signs Vital Signs Date Time Temp Pulse Resp B/P (MAP) Pulse Ox O2 Delivery O2 Flow Rate FiO2 07/30/18 14:34 96 Nasal Cannula 3.00 07/30/18 12:00 97.1 91 20 127/72 (90) Capillary Refill : Less Than 3 SecondsLess Than 3 Seconds I&O Intake and Output 07/30/18 00:00 Intake Total 500 ml Output Total 725 ml Balance -225 ml IV Total 500 ml Output Urine Total 725 ml # Bowel Movements 1 General: Alert, No Acute Distress Lungs: Clear to Auscultation, Normal Air Movement Heart: Regular Rate, No Murmurs Extremities: No Edema Psych/Mental Status: Mental Status NL Results/Procedures Lab Laboratory Tests 07/29/18 16:19: 07/29/18 20:53: Glucometer 134H 07/30/18 05:05: Glucometer 136H 07/30/18 05:30: White Blood Count 8.5, Red Blood Count 2.72L, Hemoglobin 8.4#L, Hematocrit 25L, Mean Corpuscular Volume 93, Mean Corpuscular Hemoglobin 31, Mean Corpuscular Hemoglobin Concent 33, Red Cell Distribution Width 14.8H, Platelet Count 349, Mean Platelet Volume 8.6, Sodium Level 136, Potassium Level 4.1, Chloride Level 106, Carbon Dioxide Level 22, Anion Gap 8, Blood Urea Nitrogen 19H, Creatinine 0.80, Estimat Glomerular Filtration Rate > 60, BUN/Creatinine Ratio 24, Glucose Level 124H, Calcium Level 8.1L 07/30/18 11:26: Glucometer 137H Microbiology 07/07/18 Blood Culture - Final, Complete No growth 07/16/18 MRSA Screen - Final, Complete MRSA not isolated 07/06/18 Urine Culture - Final, Complete NO GROWTH Radiology Assessment/Plan Assessment/Plan Assessment & Plan (1) Acute and chronic respiratory failure with hypoxia Status: Acute Assessment & Plan: 07/17: Arely consulted today, encourage patient to continue with Aerobike at least every hr, encouraged getting to edge of bed, will titrate as tolerated 07/18: Continue lasix for pulmonary edema, will titrate as tolerated 07/21: improved; down to 2.5L HF NC 07/28 stable on 2-3 lpm supplemental oxygen (2) Pulmonary edema cardiac cause Status: Acute Assessment & Plan: 07/17: Dr Chandra added lasix today, will diuresis and monitor renal function 07/21: improved 07/28- remains on IV lasix daily, defer to Cardiology for timing on transition to oral 07/29- lasix d/c'd per Cardiology yesterday (3) GI bleed Status: Resolved Assessment & Plan: Pt required another unit of PRBCs last night; Hgb stable for now. EGD with Patrizia today. Consider colonoscopy outpatient, should EGD come back negative. 07/09- EGD yesterday with large ulcers, not actively bleeding. Added sucralfate to pantoprazole but hemoglobin below 6 again this am. 2 units PRBCs, f/u after. 07/10- No vomiting, Hgb stable since transfusion, if continues to be stable would be stable for cath Thursday, Will advance diet today per surgery recommendations 07/11- Hgb stable, Will get retic count today, Start Fe infusions 07/12- Hgb stable today, will discuss case with surgery to see how long they would like to wait for cath, IV iron 07/13: Hgb Stable, continue IV iron 07/14: Hgb down today, discussed with Dr Acharya and will continue to monitor, Continue IV iron 07/15: Hgb up today, continue IV iron replacement 07/16: Hgb stable, continue IV Iron, cath today 07/17-07/20: Stable 07/21 - Medically stable but continued weakness and limited ambulation. Will do OT eval. Consult for SNU. Anticipate DC to [facility] by Thursday. Plan for PVD intervention by Dr. Chandra after discharge, possibly next week. 07/22 - Hb down from 8 to 6.7 - transfuse 2U prbc, will recheck H/H. Per Dr. Acharya if Hb continues to drop will do EGD. Plan to hold transfer to SNU until Thursday if patient stabilizes. 07/23 - Hb 9.3 after transfusion, back down to 7.8 this am. Will transfuse another [address] Acharya planning to do EGD. Dr. Fox to assume care for the weekend.- EGD done 07/23 with control of bleeding duodenal ulcer with epinephrine and clip 07/24/2018 -hemoglobin yesterday at 530 p.m. was 8.9 We will plan on rechecking this In the morning of July 25. It appears that he is not actively bleeding. I spoke with Dr. Acharya and we will go ahead and start clear liquid diet this morning 07/25/2018 - hemoglobin this morning was noted to be 8.0. This is a drop from 8.9. His hemoglobin will be rechecked in the morning. Also surgical input today. We'll defer on advancing diet until surgical evaluation today. 07/26- hypotensive overnight but hgb stable, will follow q6 today 07/27- hemoglobin with trend down, will continue q6 monitoring, appreciate Dr. Acharya's recommendations. 07/28- overall hemoglobin stable around 7.4, checking q12. Discussed with Dr. Acharya and family this am, plan for outpatient colonoscopy when more stable, anticipate possible d/c tomorrow or Thursday. 07/29- hemoglobin with recurrent drop to 6.6 yesterday s/p 1 unit, down to 6.4 this am, 2 more units given and plan for repeat scope 07/30- repeat EGD with repeat treatment of same bleeding duodenal ulcer. If rebleeding occurs, may need transfer to facility that can attempt IR embolization Qualifiers: Qualified Codes: K92.2 - Gastrointestinal hemorrhage, unspecified (4) Urinary retention due to benign prostatic hyperplasia Status: Resolved Assessment & Plan: Catheter placed 07/07 due to significant retention. 07/08 start Flomax, may need to d/c with liriano depending on course. 07/15: D/c liriano today 07/28 remains on tamsulosin, BP low will try switching to finasteride. (5) Acute systolic CHF (congestive heart failure) Status: Acute Assessment & Plan: 07/10: Echo with EF 25%, plan for cath when anemia is stable 07/11: Discussed case with cardiology, waiting to get cath procedure done 07/13: Cath to be done Thursday or Sunday 07/15: Plan for cath tomorrow 07/16: Cath today with stents placed 07/17: Dr Chandra has ordered lifevest for patient 07/21 : Lifevest in place; pt has had some discharges overnight, being managed by Dr. Chandra 07/28- patient not wanting to wear lifevest inpatient due to discomfort, he states the telemetry will get him help quickly. Discussed risks of life threatening arryhthmia, he states he will use when he is discharged. Continued on lisinopril, metoprolol, aspirin and ticegrelor. Not able to tolerate lisinopril and metoprolol last several days even at low dose due to hypotension. Difficult to balance risks of bleeding with need for antiplatelet therapy. 07/[address] this am (6) Debility Assessment & Plan: PT/OT, Will need rehab vs SNF following hospitalization 07/18: Will consult Rehab 07/21: SW working on placement for care home; consult in to [facility] 07/28- walking with PT and having daily improvements, plan for d/c to [facility] SNF tomorrow or Thursday depending on course next 24 hours. 07/30- continue PT while waiting on stabilization of GI bleed (7) Hyperglycemia Status: Acute Assessment & Plan: sliding scale insulin, diabetic diet when taking PO 07/10: A1c pending See DMII (8) Lower extremity edema Status: Resolved Assessment & Plan: Venous insufficiency/immobility versus related to his kidney function. Consider echocardiogram pending clinical course. 07/09- complaining of cough as well, will obtain echocardiogram 07/10- Abnormal echo, EF 25%, cardiology following 07/12: Discussed the importance of activity, getting to edge of bed, leg exercises and elevation of feet 07/14: Patient up in chair today (9) Severe anemia Status: Acute Assessment & Plan: Pt required another unit of PRBCs last night. EGD with Patrizia today. Consider colonscopy outpatient, should EGD come back negative. 07/09- hgb below 6 this am, 2 units prbc today, repeat hemoglobin after. 07/22 - Hb down from 8 to 6.7 - transfuse 2U prbc, will recheck H/H. Per Dr. Acharya if Hb continues to drop will do EGD. Plan to hold transfer to SNU until Thursday if patient stabilizes. 07/23 - Hb 9.3 after transfusion, back down to 7.8 this am. Will transfuse another [address] Acharya planning to do EGD See GI bleed dx. (10) Hypokalemia Status: Resolved Assessment & Plan: Replace and recheck. (11) Lactic acidosis Status: Resolved Assessment & Plan: Unclear etiology with no source of infection. Improved with IVF. Denies abdominal pain to suggest ischemia. (12) Diabetes mellitus, type 2 Status: Chronic Assessment & Plan: Diabetic diet when taking oral. Sliding scale insulin. 07/21: A1c 7.9%; BS running 200-300, will add Glyburide 2.5 mg daily Qualifiers: (13) Right foot drop Status: Acute Assessment & Plan: MRI showed only lumbar spondylosis. No clear explanation for his foot drop. 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 (14) Poor appetite Status: Acute Assessment & Plan: Denies pain, concern for underlying serious condition given his anemia and weakness. Endoscopy recommended in vs outpatient depending on course. 07/08 EGD today 07/09 EGD yesterday with ulcers, treating with pantoprazole and sucralfate, biopsies pending Bx with esophagitis, no H pylori (15) Leg weakness, bilateral Status: Acute Assessment & Plan: PT. (16) BPH (benign prostatic hyperplasia) Status: Chronic Assessment & Plan: Previously on medication, he stopped due to side effects. Qualifiers: (17) PTSD (post-traumatic stress disorder) Status: Chronic Assessment & Plan: Resume home medications. (18) COPD (chronic obstructive pulmonary disease) Status: Chronic Assessment & Plan: Resume home inhalers (19) Coronary artery disease Status: Chronic Assessment & Plan: s/p stenting on 07/16. 07/30 per Cardiology, going ahead and holding aspirin due to recurrent bleeding, continue Brilinta. Qualifiers: Qualified Codes: I25.10 - Atherosclerotic heart disease of [place] coronary artery without angina pectoris (20) DVT prophylaxis Status: Acute Assessment & Plan: No pharmacologic ppx with active bleed. SCDs. Clinical Quality Measures DVT/VTE Risk/Contraindication: Risk Factor Score Per Nursin RFS Level Per Nursing on Admit: 4+=Very High JOHN VILLALPANDO MD Jul 30, 2018 14:52
[2018-07-30 16:00] VITALS: BP 124/59
[2018-07-30] MEDS: diphenhydrAMINE 25 MG TAB (BENADRYL) PO PRN (19:53)
[2018-07-30 20:00] VITALS: BP 122/60
[2018-07-30] MEDS: ATORVASTATIN 80 MG (LIPITOR) TABLET PO SCH (21:17)
--- NOTE | 2018-07-30 23:38 | Progress Note ---
Subjective Date Seen by a Provider: Jul 30, 2018 Time Seen by a Provider: 08:10 Subjective/Events-last exam black stools still. feeling a little better. Hgb appropriate response with 2 prbc after egd c injection of epinephrine yesterday. no new complaints . denies n/v fever sweats chills shortness of breath or chest pain. Focused Exam Time of Focused Exam: 07:40 Objective Exam Vital Signs Date Time Temp Pulse Resp B/P (MAP) Pulse Ox O2 Delivery O2 Flow Rate FiO2 07/30/18 22:26 98 Nasal Cannula 3.00 07/30/18 20:15 98 Nasal Cannula 3.00 07/30/18 20:00 98.0 84 20 122/60 (80) 98 Nasal Cannula 3.00 07/30/18 19:00 85 07/30/18 16:00 97.8 83 20 124/59 (80) 99 Nasal Cannula 3.00 07/30/18 14:34 96 Nasal Cannula 3.00 07/30/18 13:00 90 07/30/18 12:00 97.1 91 20 127/72 (90) 100 Nasal Cannula 3.00 07/30/18 10:33 94 Nasal Cannula 3.00 07/30/18 09:00 Nasal Cannula 3.00 07/30/18 08:00 98.0 91 20 144/74 (97) 97 Nasal Cannula 3.00 07/30/18 07:00 106 07/30/18 06:41 97 Nasal Cannula 3.00 07/30/18 04:11 97.8 80 18 129/62 (84) 97 Nasal Cannula 3.00 07/30/18 02:47 96 Nasal Cannula 3.00 07/30/18 01:00 92 07/30/18 00:00 98.0 91 20 109/52 (71) 100 Nasal Cannula 3.00 I & O 07/30/18 07:00 Intake Total 500 ml Output Total 400 ml Balance 100 ml Capillary Refill : Less Than 3 SecondsLess Than 3 Seconds General Appearance: No Apparent Distress, WD/WN, Chronically ill, Thin HEENT: PERRL/EOMI; No Scleral Icterus (L), No Scleral Icterus (R) Neck: Non Tender Respiratory: Chest Non Tender, No Accessory Muscle Use, No Respiratory Distress Cardiovascular: Regular Rate, Rhythm, Normal Peripheral Pulses Gastrointestinal: non tender, soft, no organomegaly, no pulsatile mass Extremity: Non Tender Neurologic/Psychiatric: Alert, Oriented x3, No Motor/Sensory Deficits, Normal Mood/Affect Skin: Normal Color, Warm/Dry Results Lab Laboratory Tests 07/30/18 05:05: Glucometer 136H 07/30/18 05:30: White Blood Count 8.5, Red Blood Count 2.72L, Hemoglobin 8.4#L, Hematocrit 25L, Mean Corpuscular Volume 93, Mean Corpuscular Hemoglobin 31, Mean Corpuscular Hemoglobin Concent 33, Red Cell Distribution Width 14.8H, Platelet Count 349, Mean Platelet Volume 8.6, Sodium Level 136, Potassium Level 4.1, Chloride Level 106, Carbon Dioxide Level 22, Anion Gap 8, Blood Urea Nitrogen 19H, Creatinine 0.80, Estimat Glomerular Filtration Rate > 60, BUN/Creatinine Ratio 24, Glucose Level 124H, Calcium Level 8.1L 07/30/18 11:26: Glucometer 137H 07/30/18 16:38: Glucometer 135H 07/30/18 19:43: Glucometer 115H Microbiology 07/07/18 Blood Culture - Final, Complete No growth 07/16/18 MRSA Screen - Final, Complete MRSA not isolated 07/06/18 Urine Culture - Final, Complete NO GROWTH Assessment/Plan Assessment/Plan Assessment/Plan Anemia with GI bleed most likely upper due to duodenal ulcers and hx dark tarry stools Posttraumatic stress disorder Duodenal ulcers - active bleed seen during EGD Status post PCI to LAD Pulmonary edema Patient on Protonix, Carafate, tolerating diet. following hgb, continue to follow and will transfuse as needed pulmonary edema - breathing easier Medical management Patient status post EGD with injection of epinephrine and resolution clip placed for bleeding duodenal ulcer. s/p egd with epinephrine injection yesterday NPO today and if hgb stable in am will start clears if continues to drop would also consider IR coiling, high risk of rebleeding due to Brilinta Clinical Quality Measures DVT/VTE Risk/Contraindication: Risk Factor Score Per Nursin RFS Level Per Nursing on Admit: 4+=Very High JAVIER MARTINEZ DO Jul 30, 2018 23:38
[2018-07-31] VITALS (12 sets, daily range): BP systolic 110–157; BP diastolic 56–72
[2018-07-31] MEDS: RT-ALBUTEROL SULF 2.5 MG/3 ML PRE-MIX VIAL INH SCH ×6 (02:17→22:09)
[2018-07-31] MEDS: inSUlin ASPART (NovoLOG) 1 UNIT/0.01 ML (CHARGE PER UNIT) SC SCH ×4 (05:46→21:23)
[2018-07-31] MEDS: CATHETER FLUSH 10 ML SYR IV SCH ×3 (06:04→21:24)
[2018-07-31] MEDS: SUCRALFATE 1 GM (CARAFATE) TAB PO SCH ×4 (06:07→21:22)
[2018-07-31] MEDS: NYSTATIN ORAL SUSP 5 ML UDC PO SCH ×4 (06:08→23:30)
[2018-07-31 06:14] LABS: MEAN PLATELET VOLUME 8.5 FL (7.4-10.4); RED BLOOD COUNT 2.24 10^6/uL (4.35-5.85); WHITE BLOOD COUNT 7.4 10^3/uL (4.3-11.0)
[2018-07-31 06:18] LABS: HEMOGLOBIN 6.9 G/DL (13.3-17.7)
[2018-07-31 06:35] LABS: BUN/CREATININE RATIO 21; CALCIUM 7.7 MG/DL (8.5-10.1); CARBON DIOXIDE 22 MMOL/L (21-32); CHLORIDE 110 MMOL/L (98-107); CREATININE SERUM 0.82 MG/DL (0.60-1.30); GFR ESTIMATED > 60; GLUCOSE 127 MG/DL (70-105); POTASSIUM 3.8 MMOL/L (3.6-5.0); SODIUM 139 MMOL/L (135-145)
[2018-07-31] MEDS: NS IV 1000 ML 1,000 ML IV SCH ×3 (07:27→23:30)
[2018-07-31] MEDS: PANTOPRAZOLE 40 MG (PROTONIX) TAB PO SCH ×2 (09:39→21:22)
[2018-07-31] MEDS: lisINopril 5 MG (PRINIVIL) TABLET PO SCH (09:39)
[2018-07-31] MEDS: TICAGRELOR 90 MG TABLET (BRILINTA) PO SCH ×2 (09:39→21:22)
[2018-07-31] MEDS: ALPRAZolam 0.5 MG (XANAX) TAB PO SCH ×2 (09:39→21:22)
[2018-07-31] MEDS: PARoxetine 20 MG (PAXIL) TAB PO SCH ×2 (09:39→21:22)
[2018-07-31] MEDS: POLYETHYLENE GLYCOL 17 GM (MIRALAX) PACK PO SCH ×2 (09:40→21:22)
[2018-07-31] MEDS: SENNA W/DOCUSATE (SENOKOT S) TABLET PO SCH ×2 (09:40→21:23)
[2018-07-31] MEDS: FINASTERIDE (PROSCAR) 5 MG TAB PO SCH (09:45)
[2018-07-31] MEDS: NICOTINE 21 MG (NICODERM) PATCH TD SCH (09:46)
[2018-07-31] MEDS: PATCH REMOVAL TP SCH (09:49)
[2018-07-31] MEDS: MENTHOL/ZINC OXIDE (CALMOSEPTINE) 113 GM TUBE TOP SCH ×2 (09:52→21:24)
[2018-07-31] MEDS: UMECLIDINIUM BROMIDE (INCRUSE ELLIPTA) 7'S IH SCH (09:52)
[2018-07-31] MEDS ORDERED: EPINEPHrine INJECTION 1 MG/ML AMP ONE (10:26)
[2018-07-31] MEDS ORDERED: HURRICAINE EXT TUBE (BENZOCAINE) ONE (10:26)
--- NOTE | 2018-07-31 10:47 | Progress Note ---
Subjective Date Seen by a Provider: Jul 31, 2018 Time Seen by a Provider: 10:41 Subjective/Events-last exam Patient hg drop to 6.9. Receiving blood at this time and planning for a total of 2 units to be given. Patient no abdominal pain. Still with black stools. No nausea or vomiting. Denies fever sweats chills shortness of breath or chest pain at this time. Family at bedside. Focused Exam Time of Focused Exam: 07:40 Objective Exam Vital Signs Date Time Temp Pulse Resp B/P (MAP) Pulse Ox O2 Delivery O2 Flow Rate FiO2 07/31/18 08:16 97.6 87 16 128/67 (87) 100 Nasal Cannula 3.00 07/31/18 08:10 98.0 85 16 123/60 99 Nasal Cannula 3.00 07/31/18 07:55 97.6 87 16 128/67 100 Nasal Cannula 3.00 07/31/18 07:00 90 07/31/18 04:00 99.2 89 20 127/59 (81) 100 Nasal Cannula 3.00 07/31/18 02:18 99 Nasal Cannula 3.00 07/31/18 01:00 87 07/31/18 00:17 98.7 95 20 110/56 (74) 97 Nasal Cannula 3.00 07/30/18 22:26 98 Nasal Cannula 3.00 07/30/18 20:15 98 Nasal Cannula 3.00 07/30/18 20:00 98.0 84 20 122/60 (80) 98 Nasal Cannula 3.00 07/30/18 19:00 85 07/30/18 16:00 97.8 83 20 124/59 (80) 99 Nasal Cannula 3.00 07/30/18 14:34 96 Nasal Cannula 3.00 07/30/18 13:00 90 07/30/18 12:00 97.1 91 20 127/72 (90) 100 Nasal Cannula 3.00 I & O 07/31/18 07:00 Intake Total 200 ml Output Total 452 ml Balance -252 ml Capillary Refill : Less Than 3 SecondsLess Than 3 Seconds General Appearance: No Apparent Distress, WD/WN, Chronically ill, Thin HEENT: PERRL/EOMI; No Scleral Icterus (L), No Scleral Icterus (R) Neck: Non Tender Respiratory: Chest Non Tender, No Accessory Muscle Use, No Respiratory Distress Cardiovascular: Regular Rate, Rhythm, Normal Peripheral Pulses Gastrointestinal: non tender, soft, no organomegaly, no pulsatile mass Extremity: Non Tender Neurologic/Psychiatric: Alert, Oriented x3, No Motor/Sensory Deficits, Normal Mood/Affect Skin: Normal Color, Warm/Dry Results Lab Laboratory Tests 07/30/18 11:26: Glucometer 137H 07/30/18 16:38: Glucometer 135H 07/30/18 19:43: Glucometer 115H 07/31/18 05:25: White Blood Count 7.4, Red Blood Count 2.24L, Hemoglobin 6.9*L, Hematocrit 21L, Mean Corpuscular Volume 94, Mean Corpuscular Hemoglobin 31, Mean Corpuscular Hemoglobin Concent 33, Red Cell Distribution Width 15.0H, Platelet Count 416H, Mean Platelet Volume 8.5, Sodium Level 139, Potassium Level 3.8, Chloride Level 110H, Carbon Dioxide Level 22, Anion Gap 7, Blood Urea Nitrogen 17, Creatinine 0.82, Estimat Glomerular Filtration Rate > 60, BUN/Creatinine Ratio 21, Glucose Level 127H, Calcium Level 7.7L 07/31/18 05:43: Glucometer 139H 07/31/18 10:27: Glucometer 188H Microbiology 07/07/18 Blood Culture - Final, Complete No growth 07/16/18 MRSA Screen - Final, Complete MRSA not isolated 07/06/18 Urine Culture - Final, Complete NO GROWTH Assessment/Plan Assessment/Plan Assessment/Plan Anemia with GI bleed most likely upper due to duodenal ulcers and hx dark tarry stools Posttraumatic stress disorder Duodenal ulcers - active bleed seen during EGD Status post PCI to LAD Pulmonary edema Patient on Protonix, Carafate, tolerating diet. following hgb, continue to follow and will transfuse as needed pulmonary edema - breathing easier Medical management Patient status post EGD with injection of epinephrine and resolution clip placed for bleeding duodenal ulcer. s/p egd with epinephrine injection NPO Hgb dropped and receiving 2 units of prbc today The patient, patient family, Dr. Flor and myself had discussion of options due to continued drop in hgb. We discussed endoscopic, interventional radiological options and surgical option. Patient and family understand all options and risks and benefits of options. At this time they wish to proceed with repeating egd and all other indicated procedures. If this fails again, they would like to proceed with IR consultation which would require transfer. EGD today. Clinical Quality Measures DVT/VTE Risk/Contraindication: Risk Factor Score Per Nursin RFS Level Per Nursing on Admit: 4+=Very High JAVIER MARTINEZ DO Jul 31, 2018 10:47
--- NOTE | 2018-07-31 11:18 | Physical Therapy Daily Note ---
PT Daily Note-Current Subjective Pt reports he does not want to get out of bed. Received blood this morning and is is planning to go to surgery any minute. He agrees to LE ex. Mental Status Patient Orientation: Normal For Age Transfers Therapy Code Descriptions/Definitions Functional [place] Measure: 0=Not Assessed/NA 4=Minimal Assistance 1=Total Assistance 5=Supervision or Setup 2=Maximal Assistance 6=Modified [place] 3=Moderate Assistance 7=Complete [place] Therapy Quality Codes: 6 Independent with activity with or without an assistive device 5 Patient requires set up or clean up by helper. Patient completes activity by themselves 4 Supervision or touching assist (CGA). [place] provide cues , steadying assist 3 The helper provides less than half the effort to complete the activity 2 The helper provides more than half the effort to complete the activity 1 Dependent. The helper does all the effort to complete an activity 7 Patient refused to complete or attempt activity 9 The patient did not perform the activity before the current illness or injury 88 Not attempted due to Medical conditions or safety concerns Weight Bearing Right Lower Extremity: Right Full Weight Bearing Left Lower Extremity: Left Full Weight Bearing Exercises Supine Ex: Ankle pumps, Glut sets, Lower trunk rotation, Heel Slides, Knee to chest, Short Arc Quads, Straight leg raise, Hip abd/add Supine Reps: 10 active assist for exercise as needed, no active DF on the (L); provided end range passive stretching. Treatments Pt continues to be weak. He will benefit from continue PT for strength and mobility. Assessment Current Status: Fair Progress PT Short Term Goals Short Term Goals Time Frame: Jul 15, 2018 PT Detention Goals Detention Goals PT Detention Goals Time Frame: Aug 14, 2018 Transfers (B,C,W/C) (FIM): 6 Gait (FIM): 6 Gait distance (FIM): 3=150 ft Gait Level of Assist: 6 Gait Assistive Device: FWW PT Plan Treatment/Plan Treatment Plan: Continue Plan of Care Treatment Plan: Bed Mobility, Education, Functional Activity Michel, Functional Strength, Gait, Safety, Therapeutic Exercise, Transfers Treatment Duration: Aug 14, 2018 Frequency: 6 times per week Estimated Hrs Per Day: .5 hour per day Patient and/or Family Agrees t: Yes Time/GCodes Time In: 1100 Time Out: 1115 Total Billed Treatment Time: 15 Total Billed Treatment visit, exercise 15 min MARVIN ACUÑA PT Jul 31, 2018 11:18
[2018-07-31] MEDS: RT-ADVAIR HFA 115/21 MCG PER PUFF IH SCH ×2 (11:22→19:06)
--- NOTE | 2018-07-31 11:29 | Progress Note-Cardiology ---
Cardiology SOAP Progress Note Subjective: Notes gen malaise Short of breath with mild activity No cp Some gen abd discomfort No palp or syncope or shocks from the Life Vest Objective: I&O/Vital Signs 07/31/18 07/31/18 07/31/18 07/31/18 00:17 01:00 02:18 04:00 Temp 98.7 99.2 Pulse 95 87 89 Resp 20 20 B/P (MAP) 110/56 (74) 127/59 (81) Pulse Ox 97 99 100 O2 Delivery Nasal Cannula Nasal Cannula Nasal Cannula O2 Flow Rate 3.00 3.00 3.00 07/31/18 07/31/18 07/31/18 07/31/18 07:00 07:55 08:10 08:16 Temp 97.6 98.0 97.6 Pulse 90 87 85 87 Resp 16 16 16 B/P (MAP) 128/67 123/60 128/67 (87) Pulse Ox 100 99 100 O2 Delivery Nasal Cannula Nasal Cannula Nasal Cannula O2 Flow Rate 3.00 3.00 3.00 07/31/18 07/31/18 10:38 11:23 Temp 98.0 Pulse 83 Resp 18 B/P (MAP) 141/66 Pulse Ox 100 96 O2 Delivery Nasal Cannula Nasal Cannula O2 Flow Rate 3.00 3.00 07/31/18 00:00 Intake Total 150 ml Output Total 202 ml Balance -52 ml Weight (Pounds): 139 Weight (Ounces): 6.0 Weight (Calculated Kilograms): [id number] Constitutional: appears stated age, AAO x 3; No apparent distress; well- developed, other (Thin-appearing) Respiratory: chest is bilaterally symmetric, other (coarse bibasilar crackled; fair to good air entry) Cardiovascular: regular rate-rhythm, S1 and S2, systolic murmur (soft ATTILA at card base) Gastrointestional: No tender; soft; No guarding, No rebound; audible bowel sounds Extremities: pedal edema (moderate); No clubbing, No cyanosis Neurologic/Psychiatric: alert, normal mood/affect, oriented x 3, other (seems to be able to move all limgs equally), grossly intact Skin: pallor; No rash on exposed areas, No ulcerations on exposed areas Results/Procedures: Labs Laboratory Tests 07/30/18 11:26: Glucometer 137H 07/30/18 16:38: Glucometer 135H 07/30/18 19:43: Glucometer 115H 07/31/18 05:25: White Blood Count 7.4, Red Blood Count 2.24L, Hemoglobin 6.9*L, Hematocrit 21L, Mean Corpuscular Volume 94, Mean Corpuscular Hemoglobin 31, Mean Corpuscular Hemoglobin Concent 33, Red Cell Distribution Width 15.0H, Platelet Count 416H, Mean Platelet Volume 8.5, Sodium Level 139, Potassium Level 3.8, Chloride Level 110H, Carbon Dioxide Level 22, Anion Gap 7, Blood Urea Nitrogen 17, Creatinine 0.82, Estimat Glomerular Filtration Rate > 60, BUN/Creatinine Ratio 21, Glucose Level 127H, Calcium Level 7.7L 07/31/18 05:43: Glucometer 139H 07/31/18 10:27: Glucometer 188H Microbiology 07/07/18 Blood Culture - Final, Complete No growth 07/16/18 MRSA Screen - Final, Complete MRSA not isolated 07/06/18 Urine Culture - Final, Complete NO GROWTH Laboratory Tests 07/30/18 05:30 07/31/18 05:25 A/P: Assessment: Acute GI bleed due to duodenal ulcers, continuing, requiring blood transfusion Acute systolic heart failure leading to acute respiratory failure due to pulmonary edema at the time of admission on 07/06/18 Acute renal failure at time of admission, likely pre-renal due to low CO, now resolved Severe ischemic cardiomyopathy. Echo of 07/09/18 (Dr Chandra): LVEF 25-30%, grade 2 weiss dysfuunction, ant-sep hypokinesis, PASP 46 mmHg, ASD, mild to mod AI, mod left atrial enlargement CAD. 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, collateralized from the left circumflex artery, moderate left circumflex artery stenosis, severe LAD stenosis that was treated successfully with ADDISON, LVEDP 28 mmHg COPD, likely due to chronic smoking Pulmonary HTN, likely multifactorial: left heart failure, COPD, and (possibly) shunt across ASD Cor risk factors: HTN, DM II, Hyperlipidemia, tobacco use Significant PAD on peripheral angio of 07/16/18 Plan: * Complex management due to multiple comorbidities * I reviewed his hospital records in detail and spoke with him and examined him * Blood transfusion to keep Hgb around 10 * Continue Plavix. Holding off on ASA due to active GI bleeding * Continue Life Vest * Advised to quit smoking * Management of COPD is by the Med Svce * Ok to proceed with intervention for GI bleed, as necessary * BB and ROSEANNA-inhib as allowed by BP * Continue statin * May need further w/u for ASD with Dr Chandra at a later date. Shunt was not commented on on TTE of 07/09/18 EZEQUIEL DANIELSON MD FACP FAC CCDS Jul 31, 2018 11:29
[2018-07-31] MEDS ORDERED: PROPOFOL INJECTION 50 ML IV ONE (11:36)
[2018-07-31] MEDS ORDERED: LIDOCAINE PF 2% 5 ML (XYLOCAINE) VIAL ONE (11:38)
[2018-07-31] MEDS ORDERED: MIDAZOLAM 2 MG/2 ML (VERSED) VIAL ONE (11:39)
[2018-07-31] MEDS ORDERED: LACTATED RINGERS 1,000 ML IV ONE (11:43)
--- NOTE | 2018-07-31 12:33 | Anesthesia-General Post-Op ---
MAC Patient Condition Mental Status/LOC: Same as Preop Cardiovascular: Satisfactory Nausea/Vomiting: Absent Respiratory: Satisfactory Pain: Controlled Complications: Absent Post Op Complications Complications None Follow Up Care/Instructions Patient Instructions None needed. Anesthesiology Discharge Order Discharge Order Patient is doing well, no complaints, stable vital signs, no apparent adverse anesthesia problems. No complications reported per nursing. NUNO WILL CRNA Jul 31, 2018 12:33
--- NOTE | 2018-07-31 12:58 | Progress Note (SOAP) ---
Subjective Subjective/Events-last exam Pt had drop in Hb again. Patient is wanting to eat. Review of Systems Date Seen by Provider: Jul 31, 2018 Time Seen by Provider: 09:30 Focused Exam Time of Focused Exam: 07:40 Objective Exam Last Set of Vital Signs Vital Signs Date Time Temp Pulse Resp B/P (MAP) Pulse Ox O2 Delivery O2 Flow Rate FiO2 07/31/18 11:23 96 Nasal Cannula 3.00 07/31/18 10:38 98.0 83 18 141/66 Capillary Refill : Less Than 3 SecondsLess Than 3 Seconds I&O Intake and Output 07/31/18 00:00 Intake Total 150 ml Output Total 202 ml Balance -52 ml Intake Oral 150 ml Output Urine Total 200 ml Urine/Stool Mix 2 ml # Bowel Movements 1 General: Alert, Oriented X3, Cooperative Lungs: Clear to Auscultation Psych/Mental Status: Mood NL Results/Procedures Lab Laboratory Tests 07/30/18 16:38: Glucometer 135H 07/30/18 19:43: Glucometer 115H 07/31/18 05:25: White Blood Count 7.4, Red Blood Count 2.24L, Hemoglobin 6.9*L, Hematocrit 21L, Mean Corpuscular Volume 94, Mean Corpuscular Hemoglobin 31, Mean Corpuscular Hemoglobin Concent 33, Red Cell Distribution Width 15.0H, Platelet Count 416H, Mean Platelet Volume 8.5, Sodium Level 139, Potassium Level 3.8, Chloride Level 110H, Carbon Dioxide Level 22, Anion Gap 7, Blood Urea Nitrogen 17, Creatinine 0.82, Estimat Glomerular Filtration Rate > 60, BUN/Creatinine Ratio 21, Glucose Level 127H, Calcium Level 7.7L 07/31/18 05:43: Glucometer 139H 07/31/18 10:27: Glucometer 188H Microbiology 07/07/18 Blood Culture - Final, Complete No growth 07/16/18 MRSA Screen - Final, Complete MRSA not isolated 07/06/18 Urine Culture - Final, Complete NO GROWTH Radiology Assessment/Plan Assessment/Plan Assessment & Plan (1) GI bleed Status: Acute Assessment & Plan: Pt required another unit of PRBCs last night; Hgb stable for now. EGD with Acharya today. Consider colonoscopy outpatient, should EGD come back negative. 07/09- EGD yesterday with large ulcers, not actively bleeding. Added sucralfate to pantoprazole but hemoglobin below 6 again this am. 2 units PRBCs, f/u after. 07/10- No vomiting, Hgb stable since transfusion, if continues to be stable would be stable for cath Thursday, Will advance diet today per surgery recommendations 07/11- Hgb stable, Will get retic count today, Start Fe infusions 07/12- Hgb stable today, will discuss case with surgery to see how long they would like to wait for cath, IV iron 07/13: Hgb Stable, continue IV iron 07/14: Hgb down today, discussed with Dr Acharya and will continue to monitor, Continue IV iron 07/15: Hgb up today, continue IV iron replacement 07/16: Hgb stable, continue IV Iron, cath today 07/17-07/20: Stable 07/21 - Medically stable but continued weakness and limited ambulation. Will do OT eval. Consult for SNU. Anticipate DC to [facility] by Thursday. Plan for PVD intervention by Dr. Chandra after discharge, possibly next week. 07/22 - Hb down from 8 to 6.7 - transfuse 2U prbc, will recheck H/H. Per Dr. Acharya if Hb continues to drop will do EGD. Plan to hold transfer to SNU until Thursday if patient stabilizes. 07/23 - Hb 9.3 after transfusion, back down to 7.8 this am. Will transfuse another [address] Acharya planning to do EGD. Dr. Fox to assume care for the weekend.- EGD done 07/23 with control of bleeding duodenal ulcer with epinephrine and clip 07/24/2018 -hemoglobin yesterday at 530 p.m. was 8.9 We will plan on rechecking this In the morning of July 25. It appears that he is not actively bleeding. I spoke with Dr. Acharya and we will go ahead and start clear liquid diet this morning 07/25/2018 - hemoglobin this morning was noted to be 8.0. This is a drop from 8.9. His hemoglobin will be rechecked in the morning. Also surgical input today. We'll defer on advancing diet until surgical evaluation today. 07/26- hypotensive overnight but hgb stable, will follow q6 today 07/27- hemoglobin with trend down, will continue q6 monitoring, appreciate Dr. Acharya's recommendations. 07/28- overall hemoglobin stable around 7.4, checking q12. Discussed with Dr. Acharya and family this am, plan for outpatient colonoscopy when more stable, anticipate possible d/c tomorrow or Thursday. 07/29- hemoglobin with recurrent drop to 6.6 yesterday s/p 1 unit, down to 6.4 this am, 2 more units given and plan for repeat scope 07/30- repeat EGD with repeat treatment of same bleeding duodenal ulcer. If rebleeding occurs, may need transfer to facility that can attempt IR embolization 07/31 - Hb down from 8.1 to 7.2; transfusing another 2 U (has 13 units total); Dr. Acharya and I discussed options with patient and family including repeat EGD and monitor vs transfer to for IR for embolization. Patient would like repeat EGD and monitor at this time and consider transfer if bleeding continues. Qualifiers: Qualified Codes: K92.2 - Gastrointestinal hemorrhage, unspecified (2) Acute systolic CHF (congestive heart failure) Status: Acute Assessment & Plan: 07/10: Echo with EF 25%, plan for cath when anemia is stable 07/11: Discussed case with cardiology, waiting to get cath procedure done 07/13: Cath to be done Thursday or Sunday 07/15: Plan for cath tomorrow 07/16: Cath today with stents placed 07/17: Dr Chandra has ordered lifevest for patient 07/21 : Lifevest in place; pt has had some discharges overnight, being managed by Dr. Chandra 07/28- patient not wanting to wear lifevest inpatient due to discomfort, he states the telemetry will get him help quickly. Discussed risks of life threatening arryhthmia, he states he will use when he is discharged. Continued on lisinopril, metoprolol, aspirin and ticegrelor. Not able to tolerate lisinopril and metoprolol last several days even at low dose due to hypotension. Difficult to balance risks of bleeding with need for antiplatelet therapy. 07/[address] this am (3) Debility Assessment & Plan: PT/OT, Will need rehab vs SNF following hospitalization 07/18: Will consult Rehab 07/21: SW working on placement for long-term; consult in to [facility] 07/28- walking with PT and having daily improvements, plan for d/c to [facility] SN[facility] tomorrow or Thursday depending on course next 24 hours. 07/30- continue PT while waiting on stabilization of GI bleed (4) Severe anemia Status: Acute Assessment & Plan: Pt required another unit of PRBCs last night. EGD with Patrizia today. Consider colonscopy outpatient, should EGD come back negative. 07/09- hgb below 6 this am, 2 units prbc today, repeat hemoglobin after. 07/22 - Hb down from 8 to 6.7 - transfuse 2U prbc, will recheck H/H. Per Dr. Acharya if Hb continues to drop will do EGD. Plan to hold transfer to SNU until Thursday if patient stabilizes. 07/23 - Hb 9.3 after transfusion, back down to 7.8 this am. Will transfuse another [address] Acharya planning to do EGD See GI bleed dx. (5) Diabetes mellitus, type 2 Status: Chronic Assessment & Plan: Diabetic diet when taking oral. Sliding scale insulin. 07/21: A1c 7.9%; BS running 200-300, will add Glyburide 2.5 mg daily 07/31 - BS improved 115-139 Qualifiers: (6) Right foot drop Status: Acute Assessment & Plan: MRI showed only lumbar spondylosis. No clear explanation for his foot drop. 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 (7) Poor appetite Status: Acute Assessment & Plan: Denies pain, concern for underlying serious condition given his anemia and weakness. Endoscopy recommended in vs outpatient depending on course. 07/08 EGD today 07/09 EGD yesterday with ulcers, treating with pantoprazole and sucralfate, biopsies pending Bx with esophagitis, no H pylori (8) Leg weakness, bilateral Status: Acute Assessment & Plan: PT. (9) BPH (benign prostatic hyperplasia) Status: Chronic Assessment & Plan: Previously on medication, he stopped due to side effects. Qualifiers: (10) PTSD (post-traumatic stress disorder) Status: Chronic Assessment & Plan: Resume home medications. (11) COPD (chronic obstructive pulmonary disease) Status: Chronic Assessment & Plan: Resume home inhalers (12) Coronary artery disease Status: Chronic Assessment & Plan: s/p stenting on 07/16. 07/30 per Cardiology, going ahead and holding aspirin due to recurrent bleeding, continue Brilinta. Qualifiers: Qualified Codes: I25.10 - Atherosclerotic heart disease of [place] coronary artery without angina pectoris (13) DVT prophylaxis Status: Acute Assessment & Plan: No pharmacologic ppx with active bleed. SCDs. (14) Acute and chronic respiratory failure with hypoxia Status: Resolved Assessment & Plan: 07/17: Arely consulted today, encourage patient to continue with Aerobike at least every hr, encouraged getting to edge of bed, will titrate as tolerated 07/18: Continue lasix for pulmonary edema, will titrate as tolerated 07/21: improved; down to 2.5L HF NC 07/28 stable on 2-3 lpm supplemental oxygen (15) Pulmonary edema cardiac cause Status: Resolved Assessment & Plan: 07/17: Dr Chandra added lasix today, will diuresis and monitor renal function 07/21: improved 07/28- remains on IV lasix daily, defer to Cardiology for timing on transition to oral 07/29- lasix d/c'd per Cardiology yesterday (16) Urinary retention due to benign prostatic hyperplasia Status: Resolved Assessment & Plan: Catheter placed 07/07 due to significant retention. 07/08 start Flomax, may need to d/c with liriano depending on course. 07/15: D/c liriano today 07/28 remains on tamsulosin, BP low will try switching to finasteride. (17) Hyperglycemia Status: Resolved Assessment & Plan: sliding scale insulin, diabetic diet when taking PO 07/10: A1c pending See DMII (18) Lower extremity edema Status: Resolved Assessment & Plan: Venous insufficiency/immobility versus related to his kidney function. Consider echocardiogram pending clinical course. 07/09- complaining of cough as well, will obtain echocardiogram 07/10- Abnormal echo, EF 25%, cardiology following 07/12: Discussed the importance of activity, getting to edge of bed, leg exercises and elevation of feet 07/14: Patient up in chair today (19) Hypokalemia Status: Resolved Assessment & Plan: Replace and recheck. (20) Lactic acidosis Status: Resolved Assessment & Plan: Unclear etiology with no source of infection. Improved with IVF. Denies abdominal pain to suggest ischemia. Clinical Quality Measures DVT/VTE Risk/Contraindication: Risk Factor Score Per Nursin RFS Level Per Nursing on Admit: 4+=Very High ALBERT ABEL DO Jul 31, 2018 12:58
[2018-07-31] MEDS: diphenhydrAMINE 25 MG TAB (BENADRYL) PO PRN (13:21)
[2018-07-31] MEDS ORDERED: EPINEPHrine INJECTION 1 MG/ML AMP IV ONE (13:30)
[2018-07-31 16:51] LABS: HEMOGLOBIN 8.8 G/DL (13.3-17.7)
[2018-07-31] MEDS: BENZONATATE 100 MG (TESSALON) CAPSULE PO PRN (21:22)
[2018-07-31] MEDS: ATORVASTATIN 80 MG (LIPITOR) TABLET PO SCH (21:22)
[2018-08-01] MEDS: RT-ALBUTEROL SULF 2.5 MG/3 ML PRE-MIX VIAL INH SCH ×6 (01:46→23:43)
[2018-08-01 04:16] VITALS: BP 131/60
[2018-08-01 05:46] LABS: BASOPHILS % (AUTO) 1 % (0-10); EOSINOPHILS # (AUTO) 0.1 10^3/uL (0.0-0.3); EOSINOPHILS % (AUTO) 1 % (0-10); HEMATOCRIT 26 % (40-54); HEMOGLOBIN 8.7 G/DL (13.3-17.7); LYMPHOCYTES % (AUTO) 12 % (12-44); MEAN CORPUSCULAR HEMOGLOBIN 30 PG (25-34); MEAN CORPUSCULAR HGB CONC 33 G/DL (32-36); MEAN CORPUSCULAR VOLUME 92 FL (80-99); MEAN PLATELET VOLUME 8.3 FL (7.4-10.4); MONOCYTES # (AUTO) 0.5 X 10^3 (0.0-1.0); MONOCYTES % (AUTO) 5 % (0-12); NEUTROPHILS # (AUTO) 6.8 X 10^3 (1.8-7.8); NEUTROPHILS % (AUTO) 81 % (42-75); PLATELET COUNT 344 10^3/uL (130-400); RED BLOOD COUNT 2.86 10^6/uL (4.35-5.85); RED CELL DISTRIBUTION WIDTH 15.2 % (10.0-14.5); WHITE BLOOD COUNT 8.4 10^3/uL (4.3-11.0)
[2018-08-01] MEDS: RT-ADVAIR HFA 115/21 MCG PER PUFF IH SCH ×2 (06:20→19:38)
[2018-08-01] MEDS: UMECLIDINIUM BROMIDE (INCRUSE ELLIPTA) 7'S IH SCH (06:21)
[2018-08-01] MEDS: NYSTATIN ORAL SUSP 5 ML UDC PO SCH ×5 (06:22→22:16)
[2018-08-01] MEDS: CATHETER FLUSH 10 ML SYR IV SCH ×3 (06:22→22:14)
[2018-08-01] MEDS: inSUlin ASPART (NovoLOG) 1 UNIT/0.01 ML (CHARGE PER UNIT) SC SCH ×4 (06:22→22:13)
[2018-08-01] MEDS: SUCRALFATE 1 GM (CARAFATE) TAB PO SCH ×4 (06:41→22:12)
[2018-08-01 08:21] VITALS: BP 139/65
[2018-08-01] MEDS: PARoxetine 20 MG (PAXIL) TAB PO SCH ×2 (08:52→22:12)
[2018-08-01] MEDS: NICOTINE 21 MG (NICODERM) PATCH TD SCH (08:52)
[2018-08-01] MEDS: PANTOPRAZOLE 40 MG (PROTONIX) TAB PO SCH ×2 (08:53→22:11)
[2018-08-01] MEDS: ALPRAZolam 0.5 MG (XANAX) TAB PO SCH ×2 (08:53→22:12)
[2018-08-01] MEDS: FINASTERIDE (PROSCAR) 5 MG TAB PO SCH (08:53)
[2018-08-01] MEDS: TICAGRELOR 90 MG TABLET (BRILINTA) PO SCH ×2 (08:53→22:12)
[2018-08-01] MEDS: lisINopril 5 MG (PRINIVIL) TABLET PO SCH (08:53)
[2018-08-01] MEDS: MENTHOL/ZINC OXIDE (CALMOSEPTINE) 113 GM TUBE TOP SCH ×2 (08:54→22:16)
[2018-08-01] MEDS: PATCH REMOVAL TP SCH (08:57)
[2018-08-01] MEDS: NS IV 1000 ML 1,000 ML IV SCH ×2 (09:23→22:13)
[2018-08-01] MEDS: SENNA W/DOCUSATE (SENOKOT S) TABLET PO SCH ×2 (09:24→22:13)
[2018-08-01] MEDS: POLYETHYLENE GLYCOL 17 GM (MIRALAX) PACK PO SCH ×2 (09:24→22:13)
--- NOTE | 2018-08-01 09:54 | Progress Note (SOAP) ---
Subjective Date Seen by a Provider: Aug 01, 2018 Time Seen by a Provider: 09:20 Subjective/Events-last exam Patient seen with Dr. Stanton. Patient reports doing well but hungry. Reports he has not had a black stool since yesterday before his EGD. No N/V, fever/chills. Denies any abdominal pain. Reports he is ambulating and working with PT. Denies any issues breathing. Focused Exam Time of Focused Exam: 07:40 Objective Exam Vital Signs Date Time Temp Pulse Resp B/P (MAP) Pulse Ox O2 Delivery O2 Flow Rate FiO2 08/01/18 08:21 99.8 94 18 139/65 (89) 99 Nasal Cannula 3.00 08/01/18 07:00 92 08/01/18 06:21 98 Nasal Cannula 3.00 08/01/18 04:16 98.9 84 18 131/60 (83) 97 Nasal Cannula 3.00 08/01/18 01:46 98 Nasal Cannula 3.00 08/01/18 01:00 78 07/31/18 23:40 98.6 88 20 124/58 (80) 98 Nasal Cannula 3.00 07/31/18 22:10 99 Nasal Cannula 3.00 07/31/18 21:00 Nasal Cannula 3.00 07/31/18 20:45 98.4 88 24 127/60 (82) 99 Nasal Cannula 3.00 07/31/18 19:06 99 Nasal Cannula 3.00 07/31/18 19:00 83 07/31/18 16:00 98.7 95 17 114/59 (77) 100 Nasal Cannula 3.00 07/31/18 16:00 98.7 95 17 114/59 100 Nasal Cannula 3.00 07/31/18 14:24 98 Nasal Cannula 3.00 07/31/18 13:58 97.2 90 18 147/65 100 Nasal Cannula 3.00 07/31/18 13:39 97.1 91 131/63 98 Nasal Cannula 3.00 07/31/18 13:00 100 07/31/18 12:00 97.2 89 20 157/72 (100) 97 Nasal Cannula 3.00 07/31/18 11:23 96 Nasal Cannula 3.00 07/31/18 10:38 98.0 83 18 141/66 100 Nasal Cannula 3.00 I & O 08/01/18 07:00 Intake Total 1050 ml Output Total 675 ml Balance 375 ml Capillary Refill : Less Than 3 SecondsLess Than 3 Seconds General Appearance: No Apparent Distress, WD/WN Neck: Full Range of Motion, Normal Inspection, Non Tender, Supple Respiratory: Normal Breath Sounds, No Accessory Muscle Use, No Respiratory Distress Cardiovascular: Regular Rate, Rhythm, No Edema Gastrointestinal: normal bowel sounds, non tender, soft Extremity: Normal Capillary Refill, Normal Inspection, Normal Range of Motion Neurologic/Psychiatric: Alert, Oriented x3 Skin: Normal Color, Warm/Dry Results Lab Laboratory Tests 07/31/18 10:27: Glucometer 188H 07/31/18 15:48: Glucometer 261H 07/31/18 16:45: Hemoglobin 8.8#L, Hematocrit 26L 07/31/18 20:49: Glucometer 114H 08/01/18 05:06: Glucometer 115H 08/01/18 05:35: White Blood Count 8.4, Red Blood Count 2.86L, Hemoglobin 8.7L, Hematocrit 26L, Mean Corpuscular Volume 92, Mean Corpuscular Hemoglobin 30, Mean Corpuscular Hemoglobin Concent 33, Red Cell Distribution Width 15.2H, Platelet Count 344, Mean Platelet Volume 8.3, Neutrophils (%) (Auto) 81H, Lymphocytes (%) (Auto) 12 , Monocytes (%) (Auto) 5, Eosinophils (%) (Auto) 1, Basophils (%) (Auto) 1, Neutrophils # (Auto) 6.8, Lymphocytes # (Auto) 1.0, Monocytes # (Auto) 0.5, Eosinophils # (Auto) 0.1, Basophils # (Auto) 0.0 Microbiology 07/07/18 Blood Culture - Final, Complete No growth 07/16/18 MRSA Screen - Final, Complete MRSA not isolated 07/06/18 Urine Culture - Final, Complete NO GROWTH Assessment/Plan Assessment/Plan Assess & Plan/Chief Complaint Anemia with GI bleed most likely upper due to duodenal ulcers and hx dark tarry stools Posttraumatic stress disorder Duodenal ulcers - active bleed seen during EGD Status post PCI to LAD Pulmonary edema Patient on Protonix, Carafate, tolerating diet. following hgb, continue to follow and will transfuse as needed pulmonary edema - breathing easier Medical management Had EGD yesterday and has not had any black, tarry stools since. Did receive another 2 units of PRBCs yesterday. Hgb stable this AM at 8.7. Will start clear liquid diet. Will continue to monitor. Clinical Quality Measures DVT/VTE Risk/Contraindication: Risk Factor Score Per Nursin RFS Level Per Nursing on Admit: 4+=Very High BROOKE [employer] Aug 01, 2018 09:54
--- NOTE | 2018-08-01 11:17 | Progress Note (SOAP) ---
Subjective Subjective/Events-last exam Pt feeling better. Able to eat this am. Hb has been stable since last transfusion. Review of Systems Date Seen by Provider: Aug 01, 2018 Time Seen by Provider: 10:35 Focused Exam Time of Focused Exam: 07:40 Objective Exam Last Set of Vital Signs Vital Signs Date Time Temp Pulse Resp B/P (MAP) Pulse Ox O2 Delivery O2 Flow Rate FiO2 08/01/18 10:31 98 Nasal Cannula 3.00 08/01/18 08:21 99.8 94 18 139/65 (89) Capillary Refill : Less Than 3 SecondsLess Than 3 Seconds I&O Intake and Output 08/01/18 00:00 Intake Total 1100 ml Output Total 525 ml Balance 575 ml Intake Oral 100 ml IV Total 1000 ml Output Urine Total 525 ml # Voids 3 # Bowel Movements 2 General: Alert, Oriented X3, Cooperative Psych/Mental Status: Mood NL Results/Procedures Lab Laboratory Tests 07/31/18 15:48: Glucometer 261H 07/31/18 16:45: Hemoglobin 8.8#L, Hematocrit 26L 07/31/18 20:49: Glucometer 114H 08/01/18 05:06: Glucometer 115H 08/01/18 05:35: White Blood Count 8.4, Red Blood Count 2.86L, Hemoglobin 8.7L, Hematocrit 26L, Mean Corpuscular Volume 92, Mean Corpuscular Hemoglobin 30, Mean Corpuscular Hemoglobin Concent 33, Red Cell Distribution Width 15.2H, Platelet Count 344, Mean Platelet Volume 8.3, Neutrophils (%) (Auto) 81H, Lymphocytes (%) (Auto) 12 , Monocytes (%) (Auto) 5, Eosinophils (%) (Auto) 1, Basophils (%) (Auto) 1, Neutrophils # (Auto) 6.8, Lymphocytes # (Auto) 1.0, Monocytes # (Auto) 0.5, Eosinophils # (Auto) 0.1, Basophils # (Auto) 0.0 08/01/18 10:49: Glucometer 106 Microbiology 07/07/18 Blood Culture - Final, Complete No growth 07/16/18 MRSA Screen - Final, Complete MRSA not isolated 07/06/18 Urine Culture - Final, Complete NO GROWTH Radiology Assessment/Plan Assessment/Plan Assessment & Plan Plan to DC to [facility] when medically stable from a GI Bleed standpoint. (1) GI bleed Status: Acute Assessment & Plan: Pt required another unit of PRBCs last night; Hgb stable for now. EGD with Patrizia today. Consider colonoscopy outpatient, should EGD come back negative. 07/09- EGD yesterday with large ulcers, not actively bleeding. Added sucralfate to pantoprazole but hemoglobin below 6 again this am. 2 units PRBCs, f/u after. 07/10- No vomiting, Hgb stable since transfusion, if continues to be stable would be stable for cath Thursday, Will advance diet today per surgery recommendations 07/11- Hgb stable, Will get retic count today, Start Fe infusions 07/12- Hgb stable today, will discuss case with surgery to see how long they would like to wait for cath, IV iron 07/13: Hgb Stable, continue IV iron 07/14: Hgb down today, discussed with Dr Acharya and will continue to monitor, Continue IV iron 07/15: Hgb up today, continue IV iron replacement 07/16: Hgb stable, continue IV Iron, cath today 07/17-07/20: Stable 07/21 - Medically stable but continued weakness and limited ambulation. Will do OT eval. Consult for SNU. Anticipate DC to [facility] by Thursday. Plan for PVD intervention by Dr. Chandra after discharge, possibly next week. 07/22 - Hb down from 8 to 6.7 - transfuse 2U prbc, will recheck H/H. Per Dr. Acharya if Hb continues to drop will do EGD. Plan to hold transfer to SNU until Thursday if patient stabilizes. 07/23 - Hb 9.3 after transfusion, back down to 7.8 this am. Will transfuse another [address] Acharya planning to do EGD. Dr. Fox to assume care for the weekend.- EGD done 07/23 with control of bleeding duodenal ulcer with epinephrine and clip 07/24/2018 -hemoglobin yesterday at 530 p.m. was 8.9 We will plan on rechecking this In the morning of July 25. It appears that he is not actively bleeding. I spoke with Dr. Acharya and we will go ahead and start clear liquid diet this morning 07/25/2018 - hemoglobin this morning was noted to be 8.0. This is a drop from 8.9. His hemoglobin will be rechecked in the morning. Also surgical input today. We'll defer on advancing diet until surgical evaluation today. 07/26- hypotensive overnight but hgb stable, will follow q6 today 07/27- hemoglobin with trend down, will continue q6 monitoring, appreciate Dr. Acharya's recommendations. 07/28- overall hemoglobin stable around 7.4, checking q12. Discussed with Dr. Acharya and family this am, plan for outpatient colonoscopy when more stable, anticipate possible d/c tomorrow or Thursday. 07/29- hemoglobin with recurrent drop to 6.6 yesterday s/p 1 unit, down to 6.4 this am, 2 more units given and plan for repeat scope 07/30- repeat EGD with repeat treatment of same bleeding duodenal ulcer. If rebleeding occurs, may need transfer to facility that can attempt IR embolization 07/31 - Hb down from 8.1 to 7.2; transfusing another 2 U (has 13 units total); Dr. Acharya and I discussed options with patient and family including repeat EGD and monitor vs transfer to for IR for embolization. Patient would like repeat EGD and monitor at this time and consider transfer if bleeding continues. 08/01 - Hb 8.8 post transfusion and stable this am at 8.7. EGD done yesterday - report not available. Dr. Acharya is advancing diet today. Qualifiers: Qualified Codes: K92.2 - Gastrointestinal hemorrhage, unspecified (2) Acute systolic CHF (congestive heart failure) Status: Acute Assessment & Plan: 07/10: Echo with EF 25%, plan for cath when anemia is stable 07/11: Discussed case with cardiology, waiting to get cath procedure done 07/13: Cath to be done Thursday or Sunday 07/15: Plan for cath tomorrow 07/16: Cath today with stents placed 07/17: Dr Chandra has ordered lifevest for patient 07/21 : Lifevest in place; pt has had some discharges overnight, being managed by Dr. Chandra 07/28- patient not wanting to wear lifevest inpatient due to discomfort, he states the telemetry will get him help quickly. Discussed risks of life threatening arryhthmia, he states he will use when he is discharged. Continued on lisinopril, metoprolol, aspirin and ticegrelor. Not able to tolerate lisinopril and metoprolol last several days even at low dose due to hypotension. Difficult to balance risks of bleeding with need for antiplatelet therapy. 07/[address] this am (3) Debility Assessment & Plan: PT/OT, Will need rehab vs SNF following hospitalization 07/18: Will consult Rehab 07/21: SW working on placement for detention; consult in to [facility] 07/28- walking with PT and having daily improvements, plan for d/c to [facility] SNF tomorrow or Thursday depending on course next 24 hours. 07/30- continue PT while waiting on stabilization of GI bleed (4) Severe anemia Status: Acute Assessment & Plan: Pt required another unit of PRBCs last night. EGD with Patrizia today. Consider colonscopy outpatient, should EGD come back negative. 07/09- hgb below 6 this am, 2 units prbc today, repeat hemoglobin after. 07/22 - Hb down from 8 to 6.7 - transfuse 2U prbc, will recheck H/H. Per Dr. Acharya if Hb continues to drop will do EGD. Plan to hold transfer to SNU until Thursday if patient stabilizes. 07/23 - Hb 9.3 after transfusion, back down to 7.8 this am. Will transfuse another [address] Acharya planning to do EGD See GI bleed dx. (5) Diabetes mellitus, type 2 Status: Chronic Assessment & Plan: Diabetic diet when taking oral. Sliding scale insulin. 07/21: A1c 7.9%; BS running 200-300, will add Glyburide 2.5 mg daily 07/31 - BS improved 115-139 Qualifiers: (6) Right foot drop Status: Acute Assessment & Plan: MRI showed only lumbar spondylosis. No clear explanation for his foot drop. 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 (7) Poor appetite Status: Acute Assessment & Plan: Denies pain, concern for underlying serious condition given his anemia and weakness. Endoscopy recommended in vs outpatient depending on course. 07/08 EGD today 07/09 EGD yesterday with ulcers, treating with pantoprazole and sucralfate, biopsies pending Bx with esophagitis, no H pylori (8) Leg weakness, bilateral Status: Acute Assessment & Plan: PT. (9) BPH (benign prostatic hyperplasia) Status: Chronic Assessment & Plan: Previously on medication, he stopped due to side effects. Qualifiers: (10) PTSD (post-traumatic stress disorder) Status: Chronic Assessment & Plan: Resume home medications. (11) COPD (chronic obstructive pulmonary disease) Status: Chronic Assessment & Plan: Resume home inhalers (12) Coronary artery disease Status: Chronic Assessment & Plan: s/p stenting on 07/16. 07/30 per Cardiology, going ahead and holding aspirin due to recurrent bleeding, continue Brilinta. Qualifiers: Qualified Codes: I25.10 - Atherosclerotic heart disease of [place] coronary artery without angina pectoris (13) DVT prophylaxis Status: Acute Assessment & Plan: No pharmacologic ppx with active bleed. SCDs. (14) Acute and chronic respiratory failure with hypoxia Status: Resolved Assessment & Plan: 07/17: Arely consulted today, encourage patient to continue with Aerobike at least every hr, encouraged getting to edge of bed, will titrate as tolerated 07/18: Continue lasix for pulmonary edema, will titrate as tolerated 07/21: improved; down to 2.5L HF NC 07/28 stable on 2-3 lpm supplemental oxygen (15) Pulmonary edema cardiac cause Status: Resolved Assessment & Plan: 07/17: Dr Chandra added lasix today, will diuresis and monitor renal function 07/21: improved 07/28- remains on IV lasix daily, defer to Cardiology for timing on transition to oral 07/29- lasix d/c'd per Cardiology yesterday (16) Urinary retention due to benign prostatic hyperplasia Status: Resolved Assessment & Plan: Catheter placed 07/07 due to significant retention. 07/08 start Flomax, may need to d/c with liriano depending on course. 07/15: D/c liriano today 07/28 remains on tamsulosin, BP low will try switching to finasteride. (17) Hyperglycemia Status: Resolved Assessment & Plan: sliding scale insulin, diabetic diet when taking PO 07/10: A1c pending See DMII (18) Lower extremity edema Status: Resolved Assessment & Plan: Venous insufficiency/immobility versus related to his kidney function. Consider echocardiogram pending clinical course. 07/09- complaining of cough as well, will obtain echocardiogram 07/10- Abnormal echo, EF 25%, cardiology following 07/12: Discussed the importance of activity, getting to edge of bed, leg exercises and elevation of feet 07/14: Patient up in chair today (19) Hypokalemia Status: Resolved Assessment & Plan: Replace and recheck. (20) Lactic acidosis Status: Resolved Assessment & Plan: Unclear etiology with no source of infection. Improved with IVF. Denies abdominal pain to suggest ischemia. Clinical Quality Measures DVT/VTE Risk/Contraindication: Risk Factor Score Per Nursin RFS Level Per Nursing on Admit: 4+=Very High ALBERT ABEL DO Aug 01, 2018 11:17
[2018-08-01] MEDS ORDERED: diphenhydrAMINE 25 MG TAB (BENADRYL) PO PRN (11:30)
[2018-08-01 12:33] VITALS: BP 131/61
--- NOTE | 2018-08-01 14:53 | Progress Note-Cardiology ---
Cardiology SOAP Progress Note Subjective: Gen malaise Happy that Surgery has allowed liquid intake No cp or palp or syncope Chronic exertional shortness of breath Objective: I&O/Vital Signs 08/01/18 08/01/18 08/01/18 08/01/18 04:16 06:21 07:00 08:21 Temp 98.9 99.8 Pulse 84 92 94 Resp 18 18 B/P (MAP) 131/60 (83) 139/65 (89) Pulse Ox 97 98 99 O2 Delivery Nasal Cannula Nasal Cannula Nasal Cannula O2 Flow Rate 3.00 3.00 3.00 08/01/18 08/01/18 08/01/18 08/01/18 09:00 10:31 12:33 13:00 Temp 98.4 Pulse 87 77 Resp 20 B/P (MAP) 131/61 (84) Pulse Ox 98 97 O2 Delivery Nasal Cannula Nasal Cannula Nasal Cannula O2 Flow Rate 3.00 3.00 3.00 08/01/18 08/01/18 13:10 14:24 Temp 98.4 Pulse Ox 95 O2 Delivery Room Air 08/01/18 00:00 Intake Total 1050 ml Output Total 275 ml Balance 775 ml Weight (Pounds): 142 Weight (Ounces): 6.0 Weight (Calculated Kilograms): 64.158940 Constitutional: appears stated age, AAO x 3; No apparent distress; well- developed, other (Thin-appearing) Respiratory: chest is bilaterally symmetric, other (coarse bibasilar crackled; fair to good air entry) Cardiovascular: regular rate-rhythm, S1 and S2, systolic murmur (soft ATTILA at card base) Gastrointestional: No tender; soft; No guarding, No rebound; audible bowel sounds Extremities: pedal edema (moderate); No clubbing, No cyanosis Neurologic/Psychiatric: alert, normal mood/affect, oriented x 3, other (seems to be able to move all limgs equally), grossly intact Skin: pallor; No rash on exposed areas, No ulcerations on exposed areas Results/Procedures: Labs Laboratory Tests 07/31/18 15:48: Glucometer 261H 07/31/18 16:45: Hemoglobin 8.8#L, Hematocrit 26L 07/31/18 20:49: Glucometer 114H 08/01/18 05:06: Glucometer 115H 08/01/18 05:35: White Blood Count 8.4, Red Blood Count 2.86L, Hemoglobin 8.7L, Hematocrit 26L, Mean Corpuscular Volume 92, Mean Corpuscular Hemoglobin 30, Mean Corpuscular Hemoglobin Concent 33, Red Cell Distribution Width 15.2H, Platelet Count 344, Mean Platelet Volume 8.3, Neutrophils (%) (Auto) 81H, Lymphocytes (%) (Auto) 12 , Monocytes (%) (Auto) 5, Eosinophils (%) (Auto) 1, Basophils (%) (Auto) 1, Neutrophils # (Auto) 6.8, Lymphocytes # (Auto) 1.0, Monocytes # (Auto) 0.5, Eosinophils # (Auto) 0.1, Basophils # (Auto) 0.0 08/01/18 10:49: Glucometer 106 Microbiology 07/07/18 Blood Culture - Final, Complete No growth 07/16/18 MRSA Screen - Final, Complete MRSA not isolated 07/06/18 Urine Culture - Final, Complete NO GROWTH Laboratory Tests 07/31/18 05:25 07/31/18 16:45 08/01/18 05:35 A/P: Assessment: Acute GI bleed due to duodenal ulcers, requiring blood transfusion, Dr Acharya managing Acute systolic heart failure leading to acute respiratory failure due to pulmonary edema at the time of admission on 07/06/18 Acute renal failure at time of admission, likely pre-renal due to low CO, now resolved Severe ischemic cardiomyopathy. Echo of 07/09/18 (Dr Chandra): LVEF 25-30%, grade 2 weiss dysfuunction, ant-sep hypokinesis, PASP 46 mmHg, ASD, mild to mod AI, mod left atrial enlargement CAD. Coronary angiography of 07/16/18 revealed [employer] of RCA, collateralized from the left circumflex artery, moderate left circumflex artery stenosis, severe LAD stenosis that was treated successfully with ADDISON, LVEDP 28 mmHg COPD, likely due to chronic smoking Pulmonary HTN, likely multifactorial: left heart failure, COPD, and (possibly) shunt across ASD Cor risk factors: HTN, DM II, Hyperlipidemia, tobacco use Significant PAD on peripheral angio of 07/16/18 Plan: * Complex management due to multiple comorbidities * Continue Plavix. Holding off on ASA due to active GI bleeding * Continue Life Vest * Advised to quit smoking * Management of COPD is by the Med Svce and of GI bleeding by the Surg Svce * BB and ROSEANNA-inhib as allowed by BP * May need further w/u for ASD with Dr Chandra at a later date. Shunt was not commented on on TTE of 07/09/18 EZEQUIEL DANIELSON MD FACP [facility] CCDS Aug 01, 2018 14:53
[2018-08-01 16:05] VITALS: BP 115/55
[2018-08-01 20:15] VITALS: BP 129/60
[2018-08-01] MEDS: ACETAMINOPHEN 500 MG TAB (TYLENOL) PO PRN (22:12)
[2018-08-01] MEDS: ATORVASTATIN 80 MG (LIPITOR) TABLET PO SCH (22:12)
[2018-08-02] VITALS (7 sets, daily range): BP systolic 116–158; BP diastolic 55–73
[2018-08-02] MEDS: RT-ALBUTEROL SULF 2.5 MG/3 ML PRE-MIX VIAL INH SCH ×5 (03:45→19:42)
[2018-08-02] MEDS: CATHETER FLUSH 10 ML SYR IV SCH ×3 (06:37→22:02)
[2018-08-02] MEDS: inSUlin ASPART (NovoLOG) 1 UNIT/0.01 ML (CHARGE PER UNIT) SC SCH ×4 (06:38→21:50)
[2018-08-02] MEDS: NYSTATIN ORAL SUSP 5 ML UDC PO SCH ×4 (06:38→23:06)
[2018-08-02] MEDS: SUCRALFATE 1 GM (CARAFATE) TAB PO SCH ×4 (06:38→21:51)
[2018-08-02] MEDS: RT-ADVAIR HFA 115/21 MCG PER PUFF IH SCH ×2 (07:30→19:42)
[2018-08-02] MEDS: UMECLIDINIUM BROMIDE (INCRUSE ELLIPTA) 7'S IH SCH (07:31)
[2018-08-02] MEDS ORDERED: RT-ALBUTEROL SULF 2.5 MG/3 ML PRE-MIX VIAL INH PRN (07:45)
[2018-08-02] MEDS: NS IV 1000 ML 1,000 ML IV SCH ×2 (08:06→18:21)
[2018-08-02] MEDS: lisINopril 5 MG (PRINIVIL) TABLET PO SCH (08:55)
[2018-08-02] MEDS: ALPRAZolam 0.5 MG (XANAX) TAB PO SCH ×2 (08:55→21:51)
[2018-08-02] MEDS: PANTOPRAZOLE 40 MG (PROTONIX) TAB PO SCH ×2 (08:56→21:51)
[2018-08-02] MEDS: PARoxetine 20 MG (PAXIL) TAB PO SCH ×2 (08:56→21:51)
[2018-08-02] MEDS: NICOTINE 21 MG (NICODERM) PATCH TD SCH (08:56)
[2018-08-02] MEDS: POLYETHYLENE GLYCOL 17 GM (MIRALAX) PACK PO SCH ×2 (08:56→19:48)
[2018-08-02] MEDS: FINASTERIDE (PROSCAR) 5 MG TAB PO SCH (08:56)
[2018-08-02] MEDS: TICAGRELOR 90 MG TABLET (BRILINTA) PO SCH ×2 (08:56→21:51)
[2018-08-02] MEDS: SENNA W/DOCUSATE (SENOKOT S) TABLET PO SCH ×2 (08:56→19:48)
[2018-08-02] MEDS: PATCH REMOVAL TP SCH (08:57)
[2018-08-02] MEDS: MENTHOL/ZINC OXIDE (CALMOSEPTINE) 113 GM TUBE TOP SCH ×2 (08:57→22:03)
--- NOTE | 2018-08-02 10:44 | Cardiology Progress Note ---
Cardiology SOAP Progress Note Subjective: patient is feeling better today. Shortness of breath is better and the patient has not noted any overt bleeding. Objective: I&O/Vital Signs 08/01/18 08/02/18 08/02/18 08/02/18 23:44 00:00 01:00 03:45 Temp 99.5 Pulse 77 80 Resp 20 B/P (MAP) 140/70 (93) Pulse Ox 91 97 98 O2 Delivery Room Air Nasal Cannula Room Air O2 Flow Rate 3.00 08/02/18 08/02/18 08/02/18 08/02/18 04:00 07:00 07:29 08:00 Temp 99.1 97.4 Pulse 75 77 86 Resp 20 20 B/P (MAP) 116/55 (75) 158/73 (101) Pulse Ox 99 98 98 O2 Delivery Nasal Cannula Nasal Cannula Nasal Cannula O2 Flow Rate 3.00 3.00 3.00 08/02/18 00:00 Intake Total 1570 ml Output Total 2000 ml Balance -430 ml Weight (Pounds): 135 Weight (Ounces): 6.0 Weight (Calculated Kilograms): 61.831479 Constitutional: appears stated age, AAO x 3; No apparent distress; well- developed, other (Thin-appearing) Respiratory: chest is bilaterally symmetric, other (coarse bibasilar crackled; fair to good air entry) Cardiovascular: regular rate-rhythm, S1 and S2, systolic murmur (soft ATTILA at card base) Gastrointestional: No tender; soft; No guarding, No rebound; audible bowel sounds Extremities: pedal edema (moderate); No clubbing, No cyanosis Neurologic/Psychiatric: alert, normal mood/affect, oriented x 3, other (seems to be able to move all limgs equally), grossly intact Skin: pallor; No rash on exposed areas, No ulcerations on exposed areas Results/Procedures: Labs Laboratory Tests 08/01/18 10:49: Glucometer 106 08/01/18 16:10: Glucometer 312H 08/01/18 20:55: Glucometer 135H 08/02/18 05:15: Glucometer 170H Microbiology 07/07/18 Blood Culture - Final, Complete No growth 07/31/18 MRSA Screen - Final, Complete MRSA not isolated 07/06/18 Urine Culture - Final, Complete NO GROWTH A/P: Assessment/Dx: Acute respiratory failure, pulmonary edema, improved. Worsening anemia, Recent GI bleeding, Severe Peptic ulcer disease, Severe dilated cardiomyopathy, Smoking, HTN, DM, Hyperlipidemia, Hypokalemia, CKD, Leg discomfort, Aortic insufficiency, ASD, Acute diastolic CHF, Pulmonary HTN, COPD Plan: Acute respiratory failure, pulmonary edema, chest x-ray shows pulmonary edema, increased BNP (on admission). Improved significantly. Euvolemic today. DC lasix Recent GI bleeding, on PPI and sucrafate. received PRBCs numerous times during this admission. recurrent GI bleeding (duodenal). Dr. Acharya following. Aspirin dced - which may help. Hb stable. Severe Peptic ulcer disease, Severe dilated cardiomyopathy, LVEF on Echo 25% with anterior/apical hypokinesis. very likely due to CAD. 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 Collaterals from the left circumflex artery. Moderate left circumflex artery stenosis. Severe LAD stenosis treated successfully with drug-eluting stents. LVEDP 28 mmHg. due to significant GI bleed, I will discontinue aspirin and only continue Brilinta (last ). I discussed at length with the patient's son that this may help with GI bleeding however there is a small chance that the patient may developed stent thrombosis. Lifevest for primary prevention of sudden cardiac , dilated cardiomyopathy. Patient is wearing a LifeVest. Smoking - smoking cessation was strongly recommended. HTN, lisinopril and BB. DM, continue metformin for now. Hyperlipidemia, statin therapy. Hypokalemia, CKD; Diabetic nephropathy likely. occasional Leg discomfort, lifestyle limiting claudication, bilateral significant PAD. No further intervention till the patient has no further GI bleeding for atleast a month. Aortic insufficiency, follow clinically. 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 Acute diastolic CHF, pseudonormal diastolic dysfunction. caution with IV fluids. Pulmonary HTN, likely secondary to COPD. COPD, defer to primary team. Thank you for your consultation. Please call me if you have any questions. Kusum Chandra MD, FACP, FACC, FSCAI, FHRS, CCDS Interventional Cardiology Cardiac Electrophysiology Vascular Medicine and Endovascular Interventions Focused Exam Time of Focused Exam: 07:40 Jose CHANDRA MD Aug 02, 2018 10:44 am
--- NOTE | 2018-08-02 11:09 | Progress Note (SOAP) ---
SHAWANDA BEACH A MEDICAL STUDENT 08/02/18 1109: Subjective Subjective/Events-last exam Pt states he feels better than yesterday. Able to tolerate diet and has had not N/V. No hematemesis, no abd pain, no dark/bloody stools. Focused Exam Time of Focused Exam: 07:40 Objective Exam Last Set of Vital Signs Vital Signs Date Time Temp Pulse Resp B/P (MAP) Pulse Ox O2 Delivery O2 Flow Rate FiO2 08/02/18 08:00 97.4 86 20 158/73 (101) 98 Nasal Cannula 3.00 Capillary Refill : Less Than 3 SecondsLess Than 3 Seconds I&O Intake and Output 08/02/18 00:00 Intake Total 1570 ml Output Total 2400 ml Balance -830 ml Intake Oral 1570 ml Output Urine Total 2400 ml General: Alert, Oriented X3 HEENT: Atraumatic, EOMI Neck: Supple Heart: Regular Rate Abdomen: Normal Bowel Sounds, Soft, No Tenderness Extremities: Other (trace pedal edema bilateral LE) Neuro: Normal Speech Results/Procedures Lab Laboratory Tests 08/01/18 16:10: Glucometer 312H 08/01/18 20:55: Glucometer 135H 08/02/18 05:15: Glucometer 170H Microbiology 07/07/18 Blood Culture - Final, Complete No growth 07/31/18 MRSA Screen - Final, Complete MRSA not isolated 07/06/18 Urine Culture - Final, Complete NO GROWTH Radiology Assessment/Plan Assessment/Plan Assessment & Plan Plan to DC to [facility] when medically stable from a GI Bleed standpoint. 08/02/18 - discussed pt with GI, will advance to soft diet today (1) GI bleed Status: Acute Assessment & Plan: Pt required another unit of PRBCs last night; Hgb stable for now. EGD with Patrizia today. Consider colonoscopy outpatient, should EGD come back negative. 07/09- EGD yesterday with large ulcers, not actively bleeding. Added sucralfate to pantoprazole but hemoglobin below 6 again this am. 2 units PRBCs, f/u after. 07/10- No vomiting, Hgb stable since transfusion, if continues to be stable would be stable for cath Thursday, Will advance diet today per surgery recommendations 07/11- Hgb stable, Will get retic count today, Start Fe infusions 07/12- Hgb stable today, will discuss case with surgery to see how long they would like to wait for cath, IV iron 07/13: Hgb Stable, continue IV iron 07/14: Hgb down today, discussed with Dr Acharya and will continue to monitor, Continue IV iron 07/15: Hgb up today, continue IV iron replacement 07/16: Hgb stable, continue IV Iron, cath today 07/17-07/20: Stable 07/21 - Medically stable but continued weakness and limited ambulation. Will do OT eval. Consult for SNU. Anticipate DC to [facility] by Thursday. Plan for PVD intervention by Dr. Chandra after discharge, possibly next week. 07/22 - Hb down from 8 to 6.7 - transfuse 2U prbc, will recheck H/H. Per Dr. Acharya if Hb continues to drop will do EGD. Plan to hold transfer to SNU until Thursday if patient stabilizes. 07/23 - Hb 9.3 after transfusion, back down to 7.8 this am. Will transfuse another [address] Acharya planning to do EGD. Dr. Fox to assume care for the weekend.- EGD done 07/23 with control of bleeding duodenal ulcer with epinephrine and clip 07/24/2018 -hemoglobin yesterday at 530 p.m. was 8.9 We will plan on rechecking this In the morning of July 25. It appears that he is not actively bleeding. I spoke with Dr. Acharya and we will go ahead and start clear liquid diet this morning 07/25/2018 - hemoglobin this morning was noted to be 8.0. This is a drop from 8.9. His hemoglobin will be rechecked in the morning. Also surgical input today. We'll defer on advancing diet until surgical evaluation today. 07/26- hypotensive overnight but hgb stable, will follow q6 today 07/27- hemoglobin with trend down, will continue q6 monitoring, appreciate Dr. Acharya's recommendations. 07/28- overall hemoglobin stable around 7.4, checking q12. Discussed with Dr. Acharya and family this am, plan for outpatient colonoscopy when more stable, anticipate possible d/c tomorrow or Thursday. 6- hemoglobin with recurrent drop to 6.6 yesterday s/p 1 unit, down to 6.4 this am, 2 more units given and plan for repeat scope 07/30- repeat EGD with repeat treatment of same bleeding duodenal ulcer. If rebleeding occurs, may need transfer to facility that can attempt IR embolization 07/31 - Hb down from 8.1 to 7.2; transfusing another 2 U (has 13 units total); Dr. Acharya and I discussed options with patient and family including repeat EGD and monitor vs transfer to for IR for embolization. Patient would like repeat EGD and monitor at this time and consider transfer if bleeding continues. 08/01 - Hb 8.8 post transfusion and stable this am at 8.7. EGD done yesterday - report not available. Dr. Acharya is advancing diet today. Qualifiers: Qualified Codes: K92.2 - Gastrointestinal hemorrhage, unspecified (2) Acute systolic CHF (congestive heart failure) Status: Acute Assessment & Plan: 07/10: Echo with EF 25%, plan for cath when anemia is stable 07/11: Discussed case with cardiology, waiting to get cath procedure done 07/13: Cath to be done Thursday or Sunday 07/15: Plan for cath tomorrow 07/16: Cath today with stents placed 07/17: Dr Chandra has ordered lifevest for patient 07/21 : Lifevest in place; pt has had some discharges overnight, being managed by Dr. Chandra 07/28- patient not wanting to wear lifevest inpatient due to discomfort, he states the telemetry will get him help quickly. Discussed risks of life threatening arryhthmia, he states he will use when he is discharged. Continued on lisinopril, metoprolol, aspirin and ticegrelor. Not able to tolerate lisinopril and metoprolol last several days even at low dose due to hypotension. Difficult to balance risks of bleeding with need for antiplatelet therapy. 07/[address] this am (3) Debility Assessment & Plan: PT/OT, Will need rehab vs SNF following hospitalization 07/18: Will consult Rehab 07/21: SW working on placement for shelter; consult in to [employer] 07/28- walking with PT and having daily improvements, plan for d/c to [facility] tomorrow or Thursday depending on course next 24 hours. 07/30- continue PT while waiting on stabilization of GI bleed (4) Severe anemia Status: Acute Assessment & Plan: Pt required another unit of PRBCs last night. EGD with Patrizia today. Consider colonscopy outpatient, should EGD come back negative. 07/09- hgb below 6 this am, 2 units prbc today, repeat hemoglobin after. 07/22 - Hb down from 8 to 6.7 - transfuse 2U prbc, will recheck H/H. Per Dr. Acharya if Hb continues to drop will do EGD. Plan to hold transfer to SNU until Thursday if patient stabilizes. 07/23 - Hb 9.3 after transfusion, back down to 7.8 this am. Will transfuse another [address] Acharya planning to do EGD See GI bleed dx. (5) Diabetes mellitus, type 2 Status: Chronic Assessment & Plan: Diabetic diet when taking oral. Sliding scale insulin. 07/21: A1c 7.9%; BS running 200-300, will add Glyburide 2.5 mg daily 07/31 - BS improved 115-139 Qualifiers: (6) Right foot drop Status: Acute Assessment & Plan: MRI showed only lumbar spondylosis. No clear explanation for his foot drop. 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 (7) Poor appetite Status: Acute Assessment & Plan: Denies pain, concern for underlying serious condition given his anemia and weakness. Endoscopy recommended in vs outpatient depending on course. 07/08 EGD today 07/09 EGD yesterday with ulcers, treating with pantoprazole and sucralfate, biopsies pending Bx with esophagitis, no H pylori (8) Leg weakness, bilateral Status: Acute Assessment & Plan: PT. (9) BPH (benign prostatic hyperplasia) Status: Chronic Assessment & Plan: Previously on medication, he stopped due to side effects. Qualifiers: (10) PTSD (post-traumatic stress disorder) Status: Chronic Assessment & Plan: Resume home medications. (11) COPD (chronic obstructive pulmonary disease) Status: Chronic Assessment & Plan: Resume home inhalers (12) Coronary artery disease Status: Chronic Assessment & Plan: s/p stenting on 07/16. 07/30 per Cardiology, going ahead and holding aspirin due to recurrent bleeding, continue Brilinta. Qualifiers: Qualified Codes: I25.10 - Atherosclerotic heart disease of [place] coronary artery without angina pectoris (13) DVT prophylaxis Status: Acute Assessment & Plan: No pharmacologic ppx with active bleed. SCDs. (14) Acute and chronic respiratory failure with hypoxia Status: Resolved Assessment & Plan: 07/17: Arely consulted today, encourage patient to continue with Aerobike at least every hr, encouraged getting to edge of bed, will titrate as tolerated 07/18: Continue lasix for pulmonary edema, will titrate as tolerated 07/21: improved; down to 2.5L HF NC 07/28 stable on 2-3 lpm supplemental oxygen (15) Pulmonary edema cardiac cause Status: Resolved Assessment & Plan: 07/17: Dr Chandra added lasix today, will diuresis and monitor renal function 07/21: improved 07/28- remains on IV lasix daily, defer to Cardiology for timing on transition to oral 07/29- lasix d/c'd per Cardiology yesterday (16) Urinary retention due to benign prostatic hyperplasia Status: Resolved Assessment & Plan: Catheter placed 07/07 due to significant retention. 07/08 start Flomax, may need to d/c with liriano depending on course. 07/15: D/c liriano today 07/28 remains on tamsulosin, BP low will try switching to finasteride. (17) Hyperglycemia Status: Resolved Assessment & Plan: sliding scale insulin, diabetic diet when taking PO 07/10: A1c pending See DMII (18) Lower extremity edema Status: Resolved Assessment & Plan: Venous insufficiency/immobility versus related to his kidney function. Consider echocardiogram pending clinical course. 07/09- complaining of cough as well, will obtain echocardiogram 07/10- Abnormal echo, EF 25%, cardiology following 07/12: Discussed the importance of activity, getting to edge of bed, leg exercises and elevation of feet 07/14: Patient up in chair today (19) Hypokalemia Status: Resolved Assessment & Plan: Replace and recheck. (20) Lactic acidosis Status: Resolved Assessment & Plan: Unclear etiology with no source of infection. Improved with IVF. Denies abdominal pain to suggest ischemia. Clinical Quality Measures DVT/VTE Risk/Contraindication: Risk Factor Score Per Nursin RFS Level Per Nursing on Admit: 4+=Very High GENNA DUMONT MD 08/02/186: Subjective Subjective/Events-last exam See progress note from [facility] Review of Systems Date Seen by Provider: Aug 02, 2018 Time Seen by Provider: 10:00 SHAWANDA BEACH MEDICAL STUDENT Aug 02, 2018 11:09 GENNA DUMONT MD Aug 02, 2018 21:41
--- NOTE | 2018-08-02 11:31 | Physical Therapy Daily Note ---
PT Daily Note-Current Subjective He just completed RT treatment and agrees to PT. Pain Numeric Pain Scale: 0-No Pain Location: No Pain Reported Mental Status Patient Orientation: Normal For Age Attachments: IV Transfers Therapy Code Descriptions/Definitions Functional [place] Measure: 0=Not Assessed/NA 4=Minimal Assistance 1=Total Assistance 5=Supervision or Setup 2=Maximal Assistance 6=Modified [place] 3=Moderate Assistance 7=Complete [place] Therapy Quality Codes: 6 Independent with activity with or without an assistive device 5 Patient requires set up or clean up by helper. Patient completes activity by themselves 4 Supervision or touching assist (CGA). [place] provide cues , steadying assist 3 The helper provides less than half the effort to complete the activity 2 The helper provides more than half the effort to complete the activity 1 Dependent. The helper does all the effort to complete an activity 7 Patient refused to complete or attempt activity 9 The patient did not perform the activity before the current illness or injury 88 Not attempted due to Medical conditions or safety concerns Transfers (B, C, W/C) (FIM): 7 Scootin Rollin Supine to/from Sit: 7 Sit to/from Stand: 7 Weight Bearing Right Lower Extremity: Right Full Weight Bearing Left Lower Extremity: Left Full Weight Bearing Gait Training Gait (FIM): 6 Distance (FIM): 3=150 ft Distance: 175' Gait Level of Assist: 6 Gait Assistive Device: FWW slow, steady gait sequence/extended UE's with FWW use Assessment Patient much improved with gross motor skills and functional mobility. PT Short Term Goals Short Term Goals Time Frame: Jul 15, 2018 PT Intermediate Goals Intermediate Goals PT Greenskeeper Goals Time Frame: Aug 14, 2018 Transfers (B,C,W/C) (FIM): 6 Gait (FIM): 6 Gait distance (FIM): 3=150 ft Gait Level of Assist: 6 Gait Assistive Device: FWW PT Plan Treatment/Plan Treatment Plan: Continue Plan of Care Treatment Plan: Bed Mobility, Education, Functional Activity Michel, Functional Strength, Gait, Safety, Therapeutic Exercise, Transfers Treatment Duration: Aug 14, 2018 Frequency: 6 times per week Estimated Hrs Per Day: .5 hour per day Patient and/or Family Agrees t: Yes Time/GCodes Time In: 1110 Time Out: 1121 Total Billed Treatment Time: 11 Total Billed Treatment 1 visit GT 11 min YONG TODD PT Aug 02, 2018 11:30
--- NOTE | 2018-08-02 12:35 | Occupational Ther Daily Note ---
OT Current Status-Daily Note Subjective Pt alert, lying in bed. Pt agrees to therapy. No c/o pain at this time. Pt had shower then after shower MIX reported to nrsg that pt required 1 tab for telemetry and that pt requested not to put life vest on at that time. Mental Status/Objective Patient Orientation: Person, Place, Time, Situation Therapy Code Descriptions/Definitions Functional [place] Measure: 0=Not Assessed/NA 4=Minimal Assistance 1=Total Assistance 5=Supervision or Setup 2=Maximal Assistance 6=Modified [place] 3=Moderate Assistance 7=Complete [place] Attachments: IV, Telemetry (life vest) ADL-Treatment Pt ambulated into bathroom with CGA and assist to manipulate IV pole. Using grabbar and shower bench pt able to transfer into and out of shower with SBA. Pt completed bathing using shower bench, grabbar and hand held shower. Assist to doff/don socks and hospital gown. Pt then transferred back into bed by self , assist with IV and pole. Reported to nrsg about telemetry and life vest. After therapy, pt lying in bed with call light/phone in reach. All needs met in room. Bathing (FIM): 5 Lower Body Dressing (FIM): 2 Shower Transfer(FIM): 5 OT Short Term Goals Short Term Goals 1=Demonstrate adherence to instructed precautions during ADL tasks. 2=Patient will verbalize/demonstrate understanding of assistive devices/ modifications for ADL. 3=Patient will improve strength/tolerance for activity to enable patient to perform ADL's. OT Family Worker Goals Residential Goals Time Frame: Aug 11, 2018 Eating (FIM): 7 Grooming(FIM): 6 Bathing(FIM): 6 Upper Body Dressing(FIM): 6 Lower Body Dressing(FIM): 6 Toileting(FIM): 6 Toilet/Commode Transfer(FIM): 6 Shower Transfer(FIM): 6 Additional Goals: 1-Demonstrate ADL Tasks, 2-Verbalize Understanding, 3- ImproveStrength/Michel 1=Demonstrate adherence to instructed precautions during ADL tasks. 2=Patient will verbalize/demonstrate understanding of assistive devices/ modifications for ADL. 3=Patient will improve strength/tolerance for activity to enable patient to perform ADL's. OT Education/Plan Problem List/Assessment Pt would benefit from skilled Ot to increase his independence in basic self care to allow him to return to his apartment to live independently Discharge Recommendations Plan/Recommendations: Continue POC Treatment Plan/Plan of Care Patient would benefit from OT for education, treatment and training to promote independence in ADL's, mobility, safety and/or upper extremity function for ADL' s. Plan of Care: ADL Retraining, Functional Mobility, UE Funct Exercise/Act, UE Neuromus Re-Ed/Coord, OTHER (energy conservation education and practice) Treatment Duration: Aug 11, 2018 Frequency: 5 times per week Estimated Hrs Per Day: .5 hour per day Agreement: Yes Rehab Potential: Good Time/GCodes Start Time: 11:40 Stop Time: 12:20 Total Time Billed (hr/min): 40 Billed Treatment Time 1 visit-ADL 3 (40 min) CALIXTO DOMÍNGUEZ Aug 02, 2018 12:35
--- NOTE | 2018-08-02 16:57 | Progress Note ---
Subjective Date Seen by a Provider: Aug 02, 2018 Time Seen by a Provider: 09:00 Subjective/Events-last exam no black or bloody stools. feeling better today than yesterday. denies any abdominal pain. denies any other complaints. tolerating liquids. denies fever sweats chills shortness of breath or chest pain. Focused Exam Time of Focused Exam: 07:40 Objective Exam Vital Signs Date Time Temp Pulse Resp B/P (MAP) Pulse Ox O2 Delivery O2 Flow Rate FiO2 08/02/18 15:38 96 Room Air 08/02/18 13:00 80 08/02/18 12:00 98.2 82 20 140/70 (93) 94 Nasal Cannula 3.00 08/02/18 11:09 97 Room Air 08/02/18 09:00 Room Air 08/02/18 08:00 97.4 86 20 158/73 (101) 98 Nasal Cannula 3.00 08/02/18 07:29 98 Nasal Cannula 3.00 08/02/18 07:00 77 08/02/18 04:00 99.1 75 20 116/55 (75) 99 Nasal Cannula 3.00 08/02/18 03:45 98 Room Air 08/02/18 01:00 80 08/02/18 00:00 99.5 77 20 140/70 (93) 97 Nasal Cannula 3.00 08/01/18 23:44 91 Room Air 08/01/18 21:00 Room Air 08/01/18 20:15 98.4 78 24 129/60 (83) 98 Nasal Cannula 3.00 08/01/18 19:38 95 Room Air 08/01/18 19:00 83 I & O 08/02/18 07:00 Intake Total 1770 ml Output Total 2800 ml Balance -1030 ml Capillary Refill : Less Than 3 SecondsLess Than 3 Seconds General Appearance: No Apparent Distress, WD/WN HEENT: PERRL/EOMI; No Scleral Icterus (L), No Scleral Icterus (R) Neck: Full Range of Motion, Normal Inspection, Non Tender, Supple Respiratory: Normal Breath Sounds, No Accessory Muscle Use, No Respiratory Distress Cardiovascular: Regular Rate, Rhythm, No Edema Gastrointestinal: normal bowel sounds, non tender, soft Extremity: Normal Capillary Refill, Normal Inspection, Normal Range of Motion Neurologic/Psychiatric: Alert, Oriented x3 Skin: Normal Color, Warm/Dry Results Lab Laboratory Tests 08/01/18 20:55: Glucometer 135H 08/02/18 05:15: Glucometer 170H 08/02/18 11:08: Glucometer 257H 08/02/18 16:16: Glucometer 175H Microbiology 07/07/18 Blood Culture - Final, Complete No growth 07/31/18 MRSA Screen - Final, Complete MRSA not isolated 07/06/18 Urine Culture - Final, Complete NO GROWTH Assessment/Plan Assessment/Plan Assessment/Plan Anemia with GI bleed most likely upper due to duodenal ulcers and hx dark tarry stools Posttraumatic stress disorder Duodenal ulcers - active bleed seen during EGD Status post PCI to LAD Pulmonary edema Patient on Protonix, Carafate, tolerating diet. following hgb, continue to follow and will transfuse as needed pulmonary edema - breathing easier Medical management Had EGD Thursday and has not had any black, tarry stools since. Hgb will follow Will advance diet to dys 1 Will continue to monitor. Clinical Quality Measures DVT/VTE Risk/Contraindication: Risk Factor Score Per Nursin RFS Level Per Nursing on Admit: 4+=Very High JAVIER MARTINEZ DO Aug 02, 2018 16:57
[2018-08-02 17:16] LABS: HEMOGLOBIN 9.2 G/DL (13.3-17.7); MEAN PLATELET VOLUME 7.9 FL (7.4-10.4); RED BLOOD COUNT 3.02 10^6/uL (4.35-5.85); RED CELL DISTRIBUTION WIDTH 15.5 % (10.0-14.5); WHITE BLOOD COUNT 10.2 10^3/uL (4.3-11.0)
--- NOTE | 2018-08-02 19:10 | OPERATIVE REPORT ---
DATE OF SERVICE: 07/31/2018 PREOPERATIVE DIAGNOSIS: Anemia, GI bleed. POSTOPERATIVE DIAGNOSIS: Duodenal ulcer bleeding. PROCEDURE: EGD with injection of epinephrine to control bleeding. SURGEON: Javier Acharya DO ANESTHESIA: Per PRINTING SUPERVISOR. ESTIMATED BLOOD LOSS: Minimal. COMPLICATIONS: None. INDICATIONS: The patient is a 67-year-old male who has had a persistent blood loss. He has had multiple EGDs with attempts to control bleeding, which have been successfully for short periods of time. He has had continued anemia and requiring a blood transfusion at this time. The patient and the patient's family were discussed options again of EGD to attempt control bleeding. Interventional Radiology attempted coiling to control bleeding and also discussed surgical intervention. After discussion, would like to try an EGD one more time. The patient's family is in agreement. They understand risks and benefits and wished to proceed with procedure. Consent was signed in the chart. DESCRIPTION OF PROCEDURE: The patient was taken to the endoscopy suite, placed in left lateral recumbent position. Timeout was performed. Scope was inserted in the mouth, down the esophagus, stomach and into the duodenum without difficulty. There were bleeding within the duodenum again. Irrigation was used to irrigate the duodenum and the ulceration and the duodenum was again visualized. The area had still continued ooze. A resolution clip was attempted to be placed on twice, but the clip malfunction both times. At this time, injection of epinephrine in 4 quadrants around the ulceration was performed, which did achieve hemostasis. The area was irrigated with copious amounts of irrigation. Hemostasis was still achieved. The scope was then slowly retracted back. There were no other polyps, masses or ulcerations present. Scope was continuously retracted back into the stomach where he had a normal appearance. Scope was slowly retracted back into the esophagus, which had no polyps, masses or ulcerations. Scope was slowly retracted back to completely remove. RECOMMENDATIONS: The patient is to continue on current medical therapy as well. If this is unsuccessful, would really highly recommend Interventional Radiology for possible coiling. Job ID: [id number] DocumentID: [id number] Dictated Date: 08/02/2018 08:51:16 General Cleaner Date: 08/02/2018 19:09:03 Dictated By: JAVIER ACHARYA DO
--- NOTE | 2018-08-02 21:40 | Progress Note (SOAP) ---
Subjective Subjective/Events-last exam Patient feeling well this AM. States that he has been up sitting in chair. Shortness of breath stable. Continues to have dark stools denies any blood in stool. Review of Systems Date Seen by Provider: Aug 02, 2018 Time Seen by Provider: 10:00 Pulmonary: Dyspnea Cardiovascular: No: Chest Pain, Palpitations Gastrointestinal: Abdominal Pain, Melena; No: Nausea, Vomiting Neurological: Weakness Focused Exam Time of Focused Exam: 07:40 Objective Exam Last Set of Vital Signs Vital Signs Date Time Temp Pulse Resp B/P (MAP) Pulse Ox O2 Delivery O2 Flow Rate FiO2 08/02/18 20:00 97.8 88 18 149/67 (94) 98 Nasal Cannula 3.00 Capillary Refill : Less Than 3 SecondsLess Than 3 Seconds I&O Intake and Output 08/02/18 00:00 Intake Total 1570 ml Output Total 2400 ml Balance -830 ml Intake Oral 1570 ml Output Urine Total 2400 ml General: Alert, Oriented X3, Cooperative Lungs: Clear to Auscultation, Normal Air Movement Heart: Regular Rate, No Murmurs Abdomen: Normal Bowel Sounds, Soft, No Tenderness, No Masses Extremities: Other (trace edema, non tender) Neuro: Normal Speech, Sensation Intact, Cranial Nerves 3-12 NL Results/Procedures Lab Laboratory Tests 08/02/18 05:15: Glucometer 170H 08/02/18 11:08: Glucometer 257H 08/02/18 16:16: Glucometer 175H 08/02/18 17:10: White Blood Count 10.2, Red Blood Count 3.02L, Hemoglobin 9.2L, Hematocrit 28L, Mean Corpuscular Volume 92, Mean Corpuscular Hemoglobin 30, Mean Corpuscular Hemoglobin Concent 33, Red Cell Distribution Width 15.5H, Platelet Count 423H, Mean Platelet Volume 7.9 Microbiology 07/07/18 Blood Culture - Final, Complete No growth 07/31/18 MRSA Screen - Final, Complete MRSA not isolated 07/06/18 Urine Culture - Final, Complete NO GROWTH Radiology Assessment/Plan Assessment/Plan Assessment & Plan Plan to DC to [facility] when medically stable from a GI Bleed standpoint. 08/02/18 - discussed pt with GI, will advance to soft diet today (1) GI bleed Status: Acute Assessment & Plan: Pt required another unit of PRBCs last night; Hgb stable for now. EGD with Patrizia today. Consider colonoscopy outpatient, should EGD come back negative. 07/09- EGD yesterday with large ulcers, not actively bleeding. Added sucralfate to pantoprazole but hemoglobin below 6 again this am. 2 units PRBCs, f/u after. 07/10- No vomiting, Hgb stable since transfusion, if continues to be stable would be stable for cath Thursday, Will advance diet today per surgery recommendations 07/11- Hgb stable, Will get retic count today, Start Fe infusions 07/12- Hgb stable today, will discuss case with surgery to see how long they would like to wait for cath, IV iron 07/13: Hgb Stable, continue IV iron 07/14: Hgb down today, discussed with Dr Acharya and will continue to monitor, Continue IV iron 07/15: Hgb up today, continue IV iron replacement 07/16: Hgb stable, continue IV Iron, cath today 07/17-07/20: Stable 07/21 - Medically stable but continued weakness and limited ambulation. Will do OT eval. Consult for SNU. Anticipate DC to [facility] by Thursday. Plan for PVD intervention by Dr. Chandra after discharge, possibly next week. 07/22 - Hb down from 8 to 6.7 - transfuse 2U prbc, will recheck H/H. Per Dr. Acharya if Hb continues to drop will do EGD. Plan to hold transfer to SNU until Thursday if patient stabilizes. 07/23 - Hb 9.3 after transfusion, back down to 7.8 this am. Will transfuse another [address] Acharya planning to do EGD. Dr. Fox to assume care for the weekend.- EGD done 07/23 with control of bleeding duodenal ulcer with epinephrine and clip 07/24/2018 -hemoglobin yesterday at 530 p.m. was 8.9 We will plan on rechecking this In the morning of July 25. It appears that he is not actively bleeding. I spoke with Dr. Acharya and we will go ahead and start clear liquid diet this morning 07/25/2018 - hemoglobin this morning was noted to be 8.0. This is a drop from 8.9. His hemoglobin will be rechecked in the morning. Also surgical input today. We'll defer on advancing diet until surgical evaluation today. 07/26- hypotensive overnight but hgb stable, will follow q6 today 07/27- hemoglobin with trend down, will continue q6 monitoring, appreciate Dr. Acharya's recommendations. 07/28- overall hemoglobin stable around 7.4, checking q12. Discussed with Dr. Acharya and family this am, plan for outpatient colonoscopy when more stable, anticipate possible d/c tomorrow or Thursday. 07/29- hemoglobin with recurrent drop to 6.6 yesterday s/p 1 unit, down to 6.4 this am, 2 more units given and plan for repeat scope 07/30- repeat EGD with repeat treatment of same bleeding duodenal ulcer. If rebleeding occurs, may need transfer to facility that can attempt IR embolization 07/31 - Hb down from 8.1 to 7.2; transfusing another 2 U (has 13 units total); Dr. Acharya and I discussed options with patient and family including repeat EGD and monitor vs transfer to for IR for embolization. Patient would like repeat EGD and monitor at this time and consider transfer if bleeding continues. 08/01 - Hb 8.8 post transfusion and stable this am at 8.7. EGD done yesterday - report not available. Dr. Acharya is advancing diet today. 08/02: Advancing diet to dysphagia 1, continue to monitor hgb, if patient drops again will need transferred for IR/GI intervention Qualifiers: Qualified Codes: K92.2 - Gastrointestinal hemorrhage, unspecified (2) Acute systolic CHF (congestive heart failure) Status: Acute Assessment & Plan: 07/10: Echo with EF 25%, plan for cath when anemia is stable 07/11: Discussed case with cardiology, waiting to get cath procedure done 07/13: Cath to be done Thursday or Sunday 07/15: Plan for cath tomorrow 07/16: Cath today with stents placed 07/17: Dr Chandra has ordered lifevest for patient 07/21 : Lifevest in place; pt has had some discharges overnight, being managed by Dr. Chandra 07/28- patient not wanting to wear lifevest inpatient due to discomfort, he states the telemetry will get him help quickly. Discussed risks of life threatening arryhthmia, he states he will use when he is discharged. Continued on lisinopril, metoprolol, aspirin and ticegrelor. Not able to tolerate lisinopril and metoprolol last several days even at low dose due to hypotension. Difficult to balance risks of bleeding with need for antiplatelet therapy. 07/[address] this am 08/02: Life vest to prevent sudden cardiac (3) Debility Assessment & Plan: PT/OT, Will need rehab vs SNF following hospitalization 07/18: Will consult Rehab 07/21: SW working on placement for retirement; consult in to [facility] 07/28- walking with PT and having daily improvements, plan for d/c to [facility] tomorrow or Thursday depending on course next 24 hours. 07/30- continue PT while waiting on stabilization of GI bleed 08/02- If Hgb remains stable will d/c to SNF for rehab (4) Severe anemia Status: Acute Assessment & Plan: Pt required another unit of PRBCs last night. EGD with Patrizia today. Consider colonscopy outpatient, should EGD come back negative. 07/09- hgb below 6 this am, 2 units prbc today, repeat hemoglobin after. 07/22 - Hb down from 8 to 6.7 - transfuse 2U prbc, will recheck H/H. Per Dr. Acharya if Hb continues to drop will do EGD. Plan to hold transfer to SNU until Thursday if patient stabilizes. 07/23 - Hb 9.3 after transfusion, back down to 7.8 this am. Will transfuse another [address] Acharya planning to do EGD See GI bleed dx. (5) Diabetes mellitus, type 2 Status: Chronic Assessment & Plan: Diabetic diet when taking oral. Sliding scale insulin. 07/21: A1c 7.9%; BS running 200-300, will add Glyburide 2.5 mg daily 07/31 - BS improved 115-139 Qualifiers: (6) Right foot drop Status: Acute Assessment & Plan: MRI showed only lumbar spondylosis. No clear explanation for his foot drop. 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 (7) Poor appetite Status: Acute Assessment & Plan: Denies pain, concern for underlying serious condition given his anemia and weakness. Endoscopy recommended in vs outpatient depending on course. 07/08 EGD today 11/16 EGD yesterday with ulcers, treating with pantoprazole and sucralfate, biopsies pending Bx with esophagitis, no H pylori (8) Leg weakness, bilateral Status: Acute Assessment & Plan: PT. (9) BPH (benign prostatic hyperplasia) Status: Chronic Assessment & Plan: Previously on medication, he stopped due to side effects. Qualifiers: (10) PTSD (post-traumatic stress disorder) Status: Chronic Assessment & Plan: Resume home medications. (11) COPD (chronic obstructive pulmonary disease) Status: Chronic Assessment & Plan: Resume home inhalers (12) Coronary artery disease Status: Chronic Assessment & Plan: s/p stenting on 07/16. 07/30 per Cardiology, going ahead and holding aspirin due to recurrent bleeding, continue Brilinta. Qualifiers: Qualified Codes: I25.10 - Atherosclerotic heart disease of [place] coronary artery without angina pectoris (13) DVT prophylaxis Status: Acute Assessment & Plan: No pharmacologic ppx with active bleed. SCDs. (14) Acute and chronic respiratory failure with hypoxia Status: Resolved Assessment & Plan: 07/17: Arely consulted today, encourage patient to continue with Aerobike at least every hr, encouraged getting to edge of bed, will titrate as tolerated 07/18: Continue lasix for pulmonary edema, will titrate as tolerated 07/21: improved; down to 2.5L HF NC 07/28 stable on 2-3 lpm supplemental oxygen (15) Pulmonary edema cardiac cause Status: Resolved Assessment & Plan: 07/17: Dr Chandra added lasix today, will diuresis and monitor renal function 07/21: improved 07/28- remains on IV lasix daily, defer to Cardiology for timing on transition to oral 07/29- lasix d/c'd per Cardiology yesterday (16) Urinary retention due to benign prostatic hyperplasia Status: Resolved Assessment & Plan: Catheter placed 07/07 due to significant retention. 07/08 start Flomax, may need to d/c with liriano depending on course. 07/15: D/c liriano today 07/28 remains on tamsulosin, BP low will try switching to finasteride. (17) Hyperglycemia Status: Resolved Assessment & Plan: sliding scale insulin, diabetic diet when taking PO 07/10: A1c pending See DMII (18) Lower extremity edema Status: Resolved Assessment & Plan: Venous insufficiency/immobility versus related to his kidney function. Consider echocardiogram pending clinical course. 07/09- complaining of cough as well, will obtain echocardiogram 07/10- Abnormal echo, EF 25%, cardiology following 07/12: Discussed the importance of activity, getting to edge of bed, leg exercises and elevation of feet 07/14: Patient up in chair today (19) Hypokalemia Status: Resolved Assessment & Plan: Replace and recheck. (20) Lactic acidosis Status: Resolved Assessment & Plan: Unclear etiology with no source of infection. Improved with IVF. Denies abdominal pain to suggest ischemia. Clinical Quality Measures DVT/VTE Risk/Contraindication: Risk Factor Score Per Nursin RFS Level Per Nursing on Admit: 4+=Very High GENNA DUMONT MD Aug 02, 2018 21:39
[2018-08-02] MEDS: ACETAMINOPHEN 500 MG TAB (TYLENOL) PO PRN (21:51)
[2018-08-02] MEDS: ATORVASTATIN 80 MG (LIPITOR) TABLET PO SCH (22:02)
[2018-08-03] VITALS (8 sets, daily range): BP systolic 118–151; BP diastolic 59–82
[2018-08-03] MEDS: NS IV 1000 ML 1,000 ML IV SCH ×2 (03:11→04:23)
[2018-08-03] MEDS: NYSTATIN ORAL SUSP 5 ML UDC PO SCH ×3 (05:46→17:25)
[2018-08-03] MEDS: SUCRALFATE 1 GM (CARAFATE) TAB PO SCH ×4 (05:53→21:12)
[2018-08-03] MEDS: inSUlin ASPART (NovoLOG) 1 UNIT/0.01 ML (CHARGE PER UNIT) SC SCH ×4 (05:54→21:15)
[2018-08-03] MEDS: CATHETER FLUSH 10 ML SYR IV SCH ×3 (05:54→21:16)
[2018-08-03 06:12] LABS: HEMOGLOBIN 8.8 G/DL (13.3-17.7); MEAN PLATELET VOLUME 8.6 FL (7.4-10.4); RED BLOOD COUNT 2.9 10^6/uL (4.35-5.85); RED CELL DISTRIBUTION WIDTH 15.1 % (10.0-14.5); WHITE BLOOD COUNT 8.2 10^3/uL (4.3-11.0)
[2018-08-03 06:33] LABS: BUN/CREATININE RATIO 7; CALCIUM 7.7 MG/DL (8.5-10.1); CARBON DIOXIDE 20 MMOL/L (21-32); CHLORIDE 111 MMOL/L (98-107); CREATININE SERUM 0.72 MG/DL (0.60-1.30); GFR ESTIMATED > 60; GLUCOSE 163 MG/DL (70-105); POTASSIUM 3.3 MMOL/L (3.6-5.0); SODIUM 139 MMOL/L (135-145)
[2018-08-03] MEDS: RT-ALBUTEROL SULF 2.5 MG/3 ML PRE-MIX VIAL INH SCH ×3 (07:03→15:14)
[2018-08-03] MEDS: RT-ADVAIR HFA 115/21 MCG PER PUFF IH SCH (07:11)
[2018-08-03] MEDS: UMECLIDINIUM BROMIDE (INCRUSE ELLIPTA) 7'S IH SCH (07:14)
[2018-08-03] MEDS: POLYETHYLENE GLYCOL 17 GM (MIRALAX) PACK PO SCH ×2 (07:51→21:14)
[2018-08-03] MEDS: SENNA W/DOCUSATE (SENOKOT S) TABLET PO SCH ×2 (07:52→21:15)
[2018-08-03] MEDS: NICOTINE 21 MG (NICODERM) PATCH TD SCH (09:18)
[2018-08-03] MEDS: ALPRAZolam 0.5 MG (XANAX) TAB PO SCH ×2 (09:19→21:12)
[2018-08-03] MEDS: PANTOPRAZOLE 40 MG (PROTONIX) TAB PO SCH ×2 (09:19→21:12)
[2018-08-03] MEDS: MENTHOL/ZINC OXIDE (CALMOSEPTINE) 113 GM TUBE TOP SCH ×2 (09:19→22:00)
[2018-08-03] MEDS: TICAGRELOR 90 MG TABLET (BRILINTA) PO SCH ×2 (09:19→21:12)
[2018-08-03] MEDS: PARoxetine 20 MG (PAXIL) TAB PO SCH ×2 (09:19→21:12)
[2018-08-03] MEDS: lisINopril 5 MG (PRINIVIL) TABLET PO SCH (09:19)
[2018-08-03] MEDS: PATCH REMOVAL TP SCH (09:20)
[2018-08-03] MEDS: FINASTERIDE (PROSCAR) 5 MG TAB PO SCH (09:24)
--- NOTE | 2018-08-03 10:13 | Cardiology Progress Note ---
Cardiology SOAP Progress Note Subjective: feeling much better. No significant shortness of breath. Objective: I&O/Vital Signs 08/03/18 08/03/18 08/03/18 08/03/18 00:13 01:00 04:50 05:28 Temp 97.6 98.7 98.7 Pulse 89 79 78 78 Resp 20 20 20 B/P (MAP) 135/78 (97) 125/59 (81) 125/59 (81) Pulse Ox 98 100 100 O2 Delivery Nasal Cannula Nasal Cannula Nasal Cannula O2 Flow Rate 3.00 3.00 3.00 08/03/18 08/03/18 08/03/18 08/03/18 07:00 07:04 08:00 09:00 Temp 97.6 Pulse 68 74 Resp 20 B/P (MAP) 118/71 (87) Pulse Ox 98 98 O2 Delivery Nasal Cannula Nasal Cannula Nasal Cannula O2 Flow Rate 3.00 3.00 3.00 08/02/18 23:59 Intake Total 1910 ml Output Total 2278 ml Balance -368 ml Weight (Pounds): 139 Weight (Ounces): 6.0 Weight (Calculated Kilograms): [id number] Constitutional: appears stated age, AAO x 3; No apparent distress; well- developed, other (Thin-appearing) Respiratory: chest is bilaterally symmetric, other (coarse bibasilar crackled; fair to good air entry) Cardiovascular: regular rate-rhythm, S1 and S2, systolic murmur (soft ATTILA at card base) Gastrointestional: No tender; soft; No guarding, No rebound; audible bowel sounds Extremities: pedal edema (moderate); No clubbing, No cyanosis Neurologic/Psychiatric: alert, normal mood/affect, oriented x 3, other (seems to be able to move all limgs equally), grossly intact Skin: pallor; No rash on exposed areas, No ulcerations on exposed areas Results/Procedures: Labs Laboratory Tests 08/02/18 11:08: Glucometer 257H 08/02/18 16:16: Glucometer 175H 08/02/18 17:10: White Blood Count 10.2, Red Blood Count 3.02L, Hemoglobin 9.2L, Hematocrit 28L, Mean Corpuscular Volume 92, Mean Corpuscular Hemoglobin 30, Mean Corpuscular Hemoglobin Concent 33, Red Cell Distribution Width 15.5H, Platelet Count 423H, Mean Platelet Volume 7.9 08/02/18 21:42: Glucometer 279H 08/03/18 05:16: Glucometer 184H 08/03/18 05:25: White Blood Count 8.2, Red Blood Count 2.90L, Hemoglobin 8.8L, Hematocrit 27L, Mean Corpuscular Volume 92, Mean Corpuscular Hemoglobin 30, Mean Corpuscular Hemoglobin Concent 33, Red Cell Distribution Width 15.1H, Platelet Count 402H, Mean Platelet Volume 8.6, Sodium Level 139, Potassium Level 3.3L, Chloride Level 111H, Carbon Dioxide Level 20L, Anion Gap 8, Blood Urea Nitrogen 5L, Creatinine 0.72, Estimat Glomerular Filtration Rate > 60, BUN/Creatinine Ratio 7 , Glucose Level 163H, Calcium Level 7.7L Microbiology 07/07/18 Blood Culture - Final, Complete No growth 07/31/18 MRSA Screen - Final, Complete MRSA not isolated 07/06/18 Urine Culture - Final, Complete NO GROWTH A/P: Assessment/Dx: Acute respiratory failure, pulmonary edema, improved. anemia, Recent GI bleeding, Severe Peptic ulcer disease, Severe dilated cardiomyopathy, s/p PCI to LAD with ADDISON 07/16/2018 Smoking, HTN, DM, Hyperlipidemia, Hypokalemia, CKD, Leg discomfort, Aortic insufficiency, ASD, Acute diastolic CHF, Pulmonary HTN, COPD Plan: Acute respiratory failure, pulmonary edema, chest x-ray shows pulmonary edema, increased BNP (on admission). Improved significantly. Euvolemic today. DC lasix Recent GI bleeding, on PPI and sucrafate. received PRBCs numerous times during this admission. recurrent GI bleeding (duodenal). Dr. Acharya following. Aspirin dced - which may help. Hb stable. Severe Peptic ulcer disease, Severe dilated cardiomyopathy, LVEF on Echo 25% with anterior/apical hypokinesis. very likely due to CAD. 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 Collaterals from the left circumflex artery. Moderate left circumflex artery stenosis. Severe LAD stenosis treated successfully with drug-eluting stents 07/16/2018. LVEDP 28 mmHg. due to significant GI bleed, I will discontinue aspirin and only continue Brilinta ( last ). I discussed at length with the patient's son that this may help with GI bleeding however there is a small chance that the patient may developed stent thrombosis. Lifevest for primary prevention of sudden cardiac , dilated cardiomyopathy. Patient is wearing a LifeVest. Smoking - smoking cessation was strongly recommended. HTN, lisinopril and BB. DM, continue metformin for now. Hyperlipidemia, statin therapy. Hypokalemia, CKD; Diabetic nephropathy likely. occasional Leg discomfort, lifestyle limiting claudication, bilateral significant PAD. No further intervention till the patient has no further GI bleeding for atleast a month. Aortic insufficiency, follow clinically. 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 Acute diastolic CHF, pseudonormal diastolic dysfunction. caution with IV fluids. Pulmonary HTN, likely secondary to COPD. COPD, defer to primary team. Thank you for your consultation. Please call me if you have any questions. Kusum Chandra MD, FACP, FACC, FSCAI, FHRS, CCDS Interventional Cardiology Cardiac Electrophysiology Vascular Medicine and Endovascular Interventions Focused Exam Time of Focused Exam: 07:40 Jose CHANDRA MD Aug 03, 2018 10:13 am
--- NOTE | 2018-08-03 10:38 | Discharge Summary ---
SHAWANDA BEACH MEDICAL STUDENT 08/03/18 1038: Diagnosis/Chief Complaint Date of Admission Jul 07, 2018 at 01:02 Date of Discharge 08/03/18 at 1035 Admission Diagnosis Admission Diagnosis GI bleed Discharge Diagnosis GI bleed, acute CHF Problems/Diagnosis: (1) GI bleed Assessment & Plan: Pt required another unit of PRBCs last night; Hgb stable for now. EGD with Patrizia today. Consider colonoscopy outpatient, should EGD come back negative. 07/09- EGD yesterday with large ulcers, not actively bleeding. Added sucralfate to pantoprazole but hemoglobin below 6 again this am. 2 units PRBCs, f/u after. 07/10- No vomiting, Hgb stable since transfusion, if continues to be stable would be stable for cath Thursday, Will advance diet today per surgery recommendations 07/11- Hgb stable, Will get retic count today, Start Fe infusions 07/12- Hgb stable today, will discuss case with surgery to see how long they would like to wait for cath, IV iron 07/13: Hgb Stable, continue IV iron 07/14: Hgb down today, discussed with Dr Acharya and will continue to monitor, Continue IV iron 07/15: Hgb up today, continue IV iron replacement 07/16: Hgb stable, continue IV Iron, cath today 07/17-07/20: Stable 07/21 - Medically stable but continued weakness and limited ambulation. Will do OT eval. Consult for SNU. Anticipate DC to [facility] by Thursday. Plan for PVD intervention by Dr. Chandra after discharge, possibly next week. 07/22 - Hb down from 8 to 6.7 - transfuse 2U prbc, will recheck H/H. Per Dr. Acharya if Hb continues to drop will do EGD. Plan to hold transfer to SNU until Thursday if patient stabilizes. 07/23 - Hb 9.3 after transfusion, back down to 7.8 this am. Will transfuse another [address] Acharya planning to do EGD. Dr. Fox to assume care for the weekend.- EGD done 07/23 with control of bleeding duodenal ulcer with epinephrine and clip 07/24/2018 -hemoglobin yesterday at 530 p.m. was 8.9 We will plan on rechecking this In the morning of July 25. It appears that he is not actively bleeding. I spoke with Dr. Acharya and we will go ahead and start clear liquid diet this morning 07/25/2018 - hemoglobin this morning was noted to be 8.0. This is a drop from 8.9. His hemoglobin will be rechecked in the morning. Also surgical input today. We'll defer on advancing diet until surgical evaluation today. 07/26- hypotensive overnight but hgb stable, will follow q6 today 07/27- hemoglobin with trend down, will continue q6 monitoring, appreciate Dr. Acharya's recommendations. 07/28- overall hemoglobin stable around 7.4, checking q12. Discussed with Dr. Acharya and family this am, plan for outpatient colonoscopy when more stable, anticipate possible d/c tomorrow or Thursday. 07/29- hemoglobin with recurrent drop to 6.6 yesterday s/p 1 unit, down to 6.4 this am, 2 more units given and plan for repeat scope 07/30- repeat EGD with repeat treatment of same bleeding duodenal ulcer. If rebleeding occurs, may need transfer to facility that can attempt IR embolization 07/31 - Hb down from 8.1 to 7.2; transfusing another 2 U (has 13 units total); Dr. Acharya and I discussed options with patient and family including repeat EGD and monitor vs transfer to for IR for embolization. Patient would like repeat EGD and monitor at this time and consider transfer if bleeding continues. 08/01 - Hb 8.8 post transfusion and stable this am at 8.7. EGD done yesterday - report not available. Dr. Acharya is advancing diet today. 08/02: Advancing diet to dysphagia 1, continue to monitor hgb, if patient drops again will need transferred for IR/GI intervention Qualifiers: Qualified Codes: K92.2 - Gastrointestinal hemorrhage, unspecified Status: Acute (2) Acute systolic CHF (congestive heart failure) Assessment & Plan: 07/10: Echo with EF 25%, plan for cath when anemia is stable 07/11: Discussed case with cardiology, waiting to get cath procedure done 07/13: Cath to be done Thursday or Sunday 07/15: Plan for cath tomorrow 07/16: Cath today with stents placed 07/17: Dr Chandra has ordered lifevest for patient 07/21 : Lifevest in place; pt has had some discharges overnight, being managed by Dr. Chandra 07/28- patient not wanting to wear lifevest inpatient due to discomfort, he states the telemetry will get him help quickly. Discussed risks of life threatening arryhthmia, he states he will use when he is discharged. Continued on lisinopril, metoprolol, aspirin and ticegrelor. Not able to tolerate lisinopril and metoprolol last several days even at low dose due to hypotension. Difficult to balance risks of bleeding with need for antiplatelet therapy. 07/[address] this am 08/02: Life vest to prevent sudden cardiac Status: Acute (3) Debility Assessment & Plan: PT/OT, Will need rehab vs SNF following hospitalization 07/18: Will consult Rehab 07/21: SW working on placement for [facility]; consult in to [facility] 07/28- walking with PT and having daily improvements, plan for d/c to [facility] SNF tomorrow or Thursday depending on course next 24 hours. 07/30- continue PT while waiting on stabilization of GI bleed 08/02- If Hgb remains stable will d/c to SNF for rehab (4) Severe anemia Assessment & Plan: Pt required another unit of PRBCs last night. EGD with Patrizia today. Consider colonscopy outpatient, should EGD come back negative. 07/09- hgb below 6 this am, 2 units prbc today, repeat hemoglobin after. 07/22 - Hb down from 8 to 6.7 - transfuse 2U prbc, will recheck H/H. Per Dr. Acharya if Hb continues to drop will do EGD. Plan to hold transfer to SNU until Thursday if patient stabilizes. 07/23 - Hb 9.3 after transfusion, back down to 7.8 this am. Will transfuse another [address] Acharya planning to do EGD See GI bleed dx. Status: Acute (5) Diabetes mellitus, type 2 Assessment & Plan: Diabetic diet when taking oral. Sliding scale insulin. 07/21: A1c 7.9%; BS running 200-300, will add Glyburide 2.5 mg daily 07/31 - BS improved 115-139 Qualifiers: Status: Chronic (6) Right foot drop Assessment & Plan: MRI showed only lumbar spondylosis. No clear explanation for his foot drop. 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 Status: Acute (7) Poor appetite Assessment & Plan: Denies pain, concern for underlying serious condition given his anemia and weakness. Endoscopy recommended in vs outpatient depending on course. 07/08 EGD today 07/09 EGD yesterday with ulcers, treating with pantoprazole and sucralfate, biopsies pending Bx with esophagitis, no H pylori Status: Acute (8) Leg weakness, bilateral Assessment & Plan: PT. Status: Acute (9) BPH (benign prostatic hyperplasia) Assessment & Plan: Previously on medication, he stopped due to side effects. Qualifiers: Status: Chronic (10) PTSD (post-traumatic stress disorder) Assessment & Plan: Resume home medications. Status: Chronic (11) COPD (chronic obstructive pulmonary disease) Assessment & Plan: Resume home inhalers Status: Chronic (12) Coronary artery disease Assessment & Plan: s/p stenting on 07/16. 07/30 per Cardiology, going ahead and holding aspirin due to recurrent bleeding, continue Brilinta. Qualifiers: Qualified Codes: I25.10 - Atherosclerotic heart disease of inupiat coronary artery without angina pectoris Status: Chronic (13) DVT prophylaxis Assessment & Plan: No pharmacologic ppx with active bleed. SCDs. Status: Acute (14) Acute and chronic respiratory failure with hypoxia Assessment & Plan: 07/17: Arely consulted today, encourage patient to continue with Aerobike at least every hr, encouraged getting to edge of bed, will titrate as tolerated 07/18: Continue lasix for pulmonary edema, will titrate as tolerated 07/21: improved; down to 2.5L HF NC 07/28 stable on 2-3 lpm supplemental oxygen Status: Resolved Resolution Date/Time: 07/31/18 @ 13:00 (15) Pulmonary edema cardiac cause Assessment & Plan: 07/17: Dr Chandra added lasix today, will diuresis and monitor renal function 07/21: improved 07/28- remains on IV lasix daily, defer to Cardiology for timing on transition to oral 07/29- lasix d/c'd per Cardiology yesterday Status: Resolved Resolution Date/Time: 07/31/18 @ 13:00 (16) Urinary retention due to benign prostatic hyperplasia Assessment & Plan: Catheter placed 11/14 due to significant retention. 07/08 start Flomax, may need to d/c with liriano depending on course. 07/15: D/c liriano today 07/28 remains on tamsulosin, BP low will try switching to finasteride. Status: Resolved Resolution Date/Time: 07/26/18 @ 16:27 (17) Hyperglycemia Assessment & Plan: sliding scale insulin, diabetic diet when taking PO 07/10: A1c pending See DMII Status: Resolved Resolution Date/Time: 07/31/18 @ 13:01 (18) Lower extremity edema Assessment & Plan: Venous insufficiency/immobility versus related to his kidney function. Consider echocardiogram pending clinical course. 07/09- complaining of cough as well, will obtain echocardiogram 07/10- Abnormal echo, EF 25%, cardiology following 07/12: Discussed the importance of activity, getting to edge of bed, leg exercises and elevation of feet 07/14: Patient up in chair today Status: Resolved Resolution Date/Time: 07/27/18 @ 11:01 (19) Hypokalemia Assessment & Plan: Replace and recheck. Status: Resolved Resolution Date/Time: 07/08/18 @ 12:03 (20) Lactic acidosis Assessment & Plan: Unclear etiology with no source of infection. Improved with IVF. Denies abdominal pain to suggest ischemia. Status: Resolved Resolution Date/Time: 07/08/18 @ 12:04 Chief Complaint/HPI Chief Complaint/HPI 67 yo white male presented to the ED last night via ambulance for GI bleed x2days, which he attributes to recently starting Clorzoxazone 500mg bid. Pt reports that he saw bright red blood in the toilet and on the floor as he was having a bowel movement last night. Pt states he has been dizzy for two weeks and felt like he was going to pass out last night. Admits to wheelchair use at home due to leg weakness and dragging right foot x2-3 weeks. C/o recent urinary incontinence also. Sons state that he has had no appetite for the past 2-3 weeks , eating only icecream. He reports a hx of GI bleeds in the past, for which he was worked up with an EGD that was WNL. 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 For the last 5-6 mo's, he has been consistently constipated and taking stool softener. Pt admits to taking baking soda prn for acid reflux. Discharge Summary-Simple/Stand Consultations Discharge Physical Examination Allergies: Coded Allergies: No Known Drug Allergies (Verified , 07/08/18) Vitals & I&Os Vital Sign - Last 12Hours Date Time Temp Pulse Resp B/P (MAP) Pulse Ox O2 Delivery O2 Flow Rate FiO2 08/03/18 09:00 Nasal Cannula 3.00 08/03/18 08:00 97.6 74 20 118/71 (87) 98 Intake and Output 08/03/18 00:00 Intake Total 1910 ml Output Total 2278 ml Balance -368 ml General Appearance: Alert HEENT: Atraumatic, EOMI Respiratory: Other (no respiratory distress) Cardiovascular: Regular Rate Abdominal: Normal Bowel Sounds, Soft, No Tenderness Hospital Course See final discharge diagnosis. Radiology Reviewed Discussion & Recommendations Pt was admitted on 07/08 for GI bleed. Pt had EGD done that showed large ulcers without bleed and was given sucralfate and pantoprazole. Hg was <6 and pt was given 2 unites PRBC. Pt was started on Fe infusions. Pt had cardiology consult and cath with stents placed. Cardiology placed patient on Lifevest. Pt had another drop of Hg to 6.7 and was transfused 2 unites of PRBC. Pt had another drop of Hg and was transfused 2 more unites of PRBC, EGD was done duodenal ulcer was found and treated with epi and clip. Pt became stable and was started on clear liquid diet. Hg dropped and give 2 units of PRBC, repeat EGD was done and same ulcer was treated again. Pt had another drop of Hg and was given 2 unites PRCB and repeat EGD was done. Pt has remained stable since and diet was advanced. Pt has had no more black stools, no abdominal pain and no N/V. Tolerating diet. Pt stable to discharge to nursing facility. Discussed plan with patient and family, they understand the plan and are in agreement with plan. Discharge Instructions to patient/family Please see electronic discharge instructions given to patient. Discharge Medications Reviewed and agree with Discharge Medication list on patient's Discharge Instruction sheet Clinical Quality Measures DVT/VTE Risk/Contraindication: Risk Factor Score Per Nursin RFS Level Per Nursing on Admit: 4+=Very High Copy Copies To 1: Skylar JACKSON APRN GAULT, HOLLY R MD 08/04/[id number]: Diagnosis/Chief Complaint Date of Discharge 08/04/18 Admission Diagnosis Admission Diagnosis Upper GI bleed Acute blood loss Anemia Acute on Chronic respiratory failure COPD CAD with stent placement Hyperglycemia Acute renal failure Discharge Diagnosis Problems/Diagnosis: (1) Coronary artery disease Assessment & Plan: s/p stenting on 07/16. 07/30 per Cardiology, going ahead and holding aspirin due to recurrent bleeding, continue Brilinta. Qualifiers: Qualified Codes: I25.10 - Atherosclerotic heart disease of inupiat coronary artery without angina pectoris Status: Chronic (2) Pulmonary edema cardiac cause Status: Resolved Resolution Date/Time: 07/31/18 @ 13:00 (3) Acute and chronic respiratory failure with hypoxia Status: Resolved Resolution Date/Time: 07/31/18 @ 13:00 (4) Hypokalemia Status: Resolved Resolution Date/Time: 07/08/18 @ 12:03 (5) Lactic acidosis Status: Resolved Resolution Date/Time: 07/08/18 @ 12:04 (6) Diabetes mellitus, type 2 Qualifiers: Status: Chronic (7) BPH (benign prostatic hyperplasia) Qualifiers: Status: Chronic (8) Urinary retention due to benign prostatic hyperplasia Assessment & Plan: Catheter placed 07/07 due to significant retention. 07/08 start Flomax, may need to d/c with liriano depending on course. 07/15: D/c liriano today Status: Resolved Resolution Date/Time: 07/26/18 @ 16:27 (9) PTSD (post-traumatic stress disorder) Status: Chronic (10) COPD (chronic obstructive pulmonary disease) Status: Chronic (11) GERD (gastroesophageal reflux disease) Status: Chronic (12) Right foot drop Status: Acute (13) Leg weakness, bilateral Status: Acute Discharge Summary-Simple/Stand Procedures Multiple EGDs with Dr Acharya Cardiac Cath with Dr Chandra with stent placement Discharge Physical Examination Allergies: Coded Allergies: No Known Drug Allergies (Verified , 07/08/18) General Appearance: Oriented X3 HEENT: Atraumatic, EOMI Respiratory: Clear to Auscultation, Other (no respiratory distress) Cardiovascular: Regular Rate, No Murmurs Abdominal: Normal Bowel Sounds, Soft, No Tenderness Extremities: No Edema, No Tenderness/Swelling Skin: No Rashes, No Breakdown Neuro: Normal Speech, Sensation Intact, Cranial Nerves 3-12 NL Psych/Mental Status: Mental Status NL, Mood NL Discussion & Recommendations Patient seen and examined with Yimi [place], MS3 Discharge Condition at discharge Stable with guarded prognosis SHAWANDA BEACH MEDICAL STUDENT Aug 03, 2018 10:38 GENNA DUMONT MD Aug 04, 2018 21:07
--- NOTE | 2018-08-03 11:28 | Physical Therapy Daily Note ---
PT Daily Note-Current Subjective Patient is very agreeable to participate with PT. He reports he is going to [place] on this date. Pain Numeric Pain Scale: 0-No Pain Location: No Pain Reported Mental Status Patient Orientation: Normal For Age Attachments: IV Transfers Therapy Code Descriptions/Definitions Functional Appling Measure: 0=Not Assessed/NA 4=Minimal Assistance 1=Total Assistance 5=Supervision or Setup 2=Maximal Assistance 6=Modified Appling 3=Moderate Assistance 7=Complete Appling Therapy Quality Codes: 6 Independent with activity with or without an assistive device 5 Patient requires set up or clean up by helper. Patient completes activity by themselves 4 Supervision or touching assist (CGA). [place] provide cues , steadying assist 3 The helper provides less than half the effort to complete the activity 2 The helper provides more than half the effort to complete the activity 1 Dependent. The helper does all the effort to complete an activity 7 Patient refused to complete or attempt activity 9 The patient did not perform the activity before the current illness or injury 88 Not attempted due to Medical conditions or safety concerns Transfers (B, C, W/C) (FIM): 7 Scootin Rollin Supine to/from Sit: 7 Sit to/from Stand: 7 Weight Bearing Right Lower Extremity: Right Full Weight Bearing Left Lower Extremity: Left Full Weight Bearing Gait Training Gait (FIM): 6 Distance (FIM): 3=150 ft Distance: 175' Gait Level of Assist: 6 Gait Assistive Device: FWW steady gait sequence with FWW Assessment Patient returned to bed with needs met. Dismiss patient from services secondary to transfer to [place]. 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 Goals [facility] Goals PT [employer] Health And Safety Professor Goals Time Frame: Aug 14, 2018 Transfers (B,C,W/C) (FIM): 6 Gait (FIM): 6 Gait distance (FIM): 3=150 ft Gait Level of Assist: 6 Gait Assistive Device: FWW PT Plan Treatment/Plan Treatment Plan: Discontinue PT, goals met Treatment Plan: Bed Mobility, Education, Functional Activity Michel, Functional Strength, Gait, Safety, Therapeutic Exercise, Transfers Treatment Duration: Aug 14, 2018 Frequency: 6 times per week Estimated Hrs Per Day: .5 hour per day Patient and/or Family Agrees t: Yes Time/GCodes Time In: 1031 Time Out: 1041 Total Billed Treatment Time: 10 Total Billed Treatment 1 visit FA 10 min PEYTON,YONG PT Aug 03, 2018 11:28
[2018-08-03] MEDS ORDERED: SUCR1TAB PO (12:27)
[2018-08-03] MEDS ORDERED: ATOR80TA76 PO (12:27)
[2018-08-03] MEDS ORDERED: TRAM50TA2 PO (12:27)
[2018-08-03] MEDS ORDERED: TICA90TA PO (12:27)
[2018-08-03] MEDS ORDERED: ALPR0.5T7 PO (12:27)
[2018-08-03] MEDS ORDERED: LISI-556 PO (12:27)
[2018-08-03] MEDS ORDERED: METO-387 PO (12:27)
[2018-08-03] MEDS ORDERED: POLY17PO31 PO (12:27)
[2018-08-03] MEDS ORDERED: NYST1000 PO (12:27)
[2018-08-03] MEDS ORDERED: INSU100I29 SC (12:27)
[2018-08-03] MEDS ORDERED: SENN-20 PO (12:27)
[2018-08-03] MEDS ORDERED: Finasteride PO (12:27)
--- NOTE | 2018-08-03 12:32 | Discharge Inst-Skilled Nursing ---
Discharge Inst-Skilled NF Patient Instructions Patient Problems: Upper GI bleed Acute on Chronic systolic CHF COPD with acute respiratory failure ALAN Leukocytosis CAD with stent placement Goal: Working on strength and mobility Improved independence Self care Consult/Follow Up/Orders Follow up appt.: Skylar Bishop will see patient at [facility] this week Skilled NF Admit to: [facility] Certifications SNF I certify that SNF services are required to be given on an inpatient basis because of the above named patient's need for prison care on a continuing basis for the conditions(s) for which he/she was receiving inpatient hospital services prior to his/her transfer to the SNF. Intermediate Facility Order: Nursing Services, Psychiatric Np-Evaluate & Treat, Physical Therapy-Evaluate & Treat, Wound Care-Eval/Treat Discharge Diet: ADA Diet, Cardiac Diet Daily Activity as Tolerated: Yes New & Resume Previous Orders New & Resume Previous Orders -CBC to be done on Thursday - Monitor blood pressure daily and notify doctor if <120/75 - PT/OT evaluate and treat - Patient wearing life vest, managed by Dr Chandra - Needs outpatient appt with Dr Chandra and Dr Acharya eu Vac Indicated: Yes Discharge Medications New, Converted or Re-Newed RX: RX on Chart New Medications: Atorvastatin Calcium (Atorvastatin Calcium) 80 Mg Tablet 80 MG PO HS, #30 TAB [Finasteride] () 5 MG TAB 5 MG PO DAILY, #30 TAB Lisinopril (Lisinopril) 5 Mg Tablet 5 MG PO DAILY, #30 TAB Metoprolol Succinate (Metoprolol Succinate) 25 Mg Tab.er.24h 25 MG PO BID, #60 TAB Nystatin (Nystatin) 100,000 Unit/1 Ml Oral.susp 5 ML PO Q6HR for 30 Days, ML Polyethylene Glycol 3350 (Polyethylene Glycol 3350) 17 Gm Powd.pack 34 GM PO BID for 30 Days, EACH Sennosides/Docusate Sodium (Senna-Time S Tablet) 1 Each Tablet 2 EA PO BID, #60 TAB Sucralfate (Sucralfate) 1 Gm Tablet 1 GM PO ACHS, #120 TAB Ticagrelor (Brilinta) 90 Mg Tablet 90 MG PO BID, #60 TAB Tramadol HCl (Tramadol HCl) 50 Mg Tablet 50 MG PO TID PRN for PAIN-MODERATE, #90 TAB Changed Medications: Insulin Detemir (Levemir Flextouch) 100 Unit/1 Ml Insuln.pen 10 UNITS SC HS for 30 Days, EA (Changed from: 10-14 UNITS) Continued Medications: Albuterol Sulfate (Ventolin Hfa) 18 Gm Hfa.aer.ad 2 PUFF INH Q4H PRN for SHORTNESS OF BREATH, INHALER Alprazolam (Alprazolam) 0.5 Mg Tablet 0.5 MG PO BID, #60 TAB (This prescription has been renewed) Budesonide/Formoterol Fumarate (Symbicort 160-4.5 Mcg Inhaler) 10.2 Gm Hfa.aer.ad 2 PUFF INH BID, INHALER Diphenhydramine HCl (Benadryl) 25 Mg Capsule 25 MG PO BID PRN for PANIC ATTACKS, CAP Omeprazole (Omeprazole) 40 Mg Capsule.dr 40 MG PO DAILY, CAP Paroxetine HCl (Paroxetine HCl) 20 Mg Tablet 10 MG PO BID, TAB TAKES 1/2 (10MG) TABLET Umeclidinium [place] (Incruse Ellipta) 62.5 Mcg Blst.w.dev 1 PUFF INH DAILY PRN for PANIC ATTACKS, INHALER Discontinued Medications: Chlorzoxazone (Chlorzoxazone) 500 Mg Tablet 500 MG PO BID, TAB Ibuprofen (Advil) 200 Mg Tablet 400 MG PO TID PRN for PAIN-MILD, TAB Metformin HCl (Metformin HCl ER) 500 Mg Tab.er.24h 500 MG PO BID WITH MEALS, TAB Prednisone (Prednisone) 20 Mg Tab 40 MG PO DAILY, TAB TAKES 2 (20MG) TABLETS Genna Dumont Aug 03, 2018 12:28 GENNA DUMONT MD Aug 03, 2018 12:32
--- NOTE | 2018-08-03 20:32 | Progress Note (SOAP) ---
Subjective Subjective/Events-last exam Patient feeling well today. Hgb stable. Ready to go to rehab Insurance calling and states that his prior auth has not been completed, will likely go tomorrow Review of Systems Date Seen by Provider: Aug 03, 2018 Time Seen by Provider: 11:30 Pulmonary: Dyspnea; No Cough Cardiovascular: No: Chest Pain, Palpitations Gastrointestinal: No: Nausea, Vomiting, Abdominal Pain, Melena, Hematochezia Neurological: Weakness Focused Exam Time of Focused Exam: 07:40 Objective Exam Last Set of Vital Signs Vital Signs Date Time Temp Pulse Resp B/P (MAP) Pulse Ox O2 Delivery O2 Flow Rate FiO2 08/03/18 20:15 98.4 84 16 144/66 (92) 99 Nasal Cannula 3.00 Capillary Refill : Less Than 3 SecondsLess Than 3 Seconds I&O Intake and Output 08/03/18 00:00 Intake Total 2110 ml Output Total 3078 ml Balance -968 ml Intake Oral 2110 ml Output Urine Total 3075 ml Urine/Stool Mix 3 ml # Bowel Movements 2 General: Alert, Oriented X3, Cooperative, No Acute Distress HEENT: Mucous Memb Moist/[place] Lungs: Clear to Auscultation, Normal Air Movement Heart: Regular Rate, No Murmurs Abdomen: Normal Bowel Sounds, Soft, No Tenderness, No Hepatosplenomegaly, No Masses Extremities: No Edema, No Tenderness/Swelling Results/Procedures Lab Laboratory Tests 08/02/18 21:42: Glucometer 279H 08/03/18 05:16: Glucometer 184H 08/03/18 05:25: White Blood Count 8.2, Red Blood Count 2.90L, Hemoglobin 8.8L, Hematocrit 27L, Mean Corpuscular Volume 92, Mean Corpuscular Hemoglobin 30, Mean Corpuscular Hemoglobin Concent 33, Red Cell Distribution Width 15.1H, Platelet Count 402H, Mean Platelet Volume 8.6, Sodium Level 139, Potassium Level 3.3L, Chloride Level 111H, Carbon Dioxide Level 20L, Anion Gap 8, Blood Urea Nitrogen 5L, Creatinine 0.72, Estimat Glomerular Filtration Rate > 60, BUN/Creatinine Ratio 7 , Glucose Level 163H, Calcium Level 7.7L 08/03/18 10:58: Glucometer 232H 08/03/18 16:54: Glucometer 139H Microbiology 07/07/18 Blood Culture - Final, Complete No growth 07/31/18 MRSA Screen - Final, Complete MRSA not isolated 07/06/18 Urine Culture - Final, Complete NO GROWTH Radiology Assessment/Plan Assessment/Plan Assessment & Plan Plan to DC to [facility] when medically stable from a GI Bleed standpoint. 08/02/18 - discussed pt with GI, will advance to soft diet today (1) GI bleed Status: Acute Assessment & Plan: Pt required another unit of PRBCs last night; Hgb stable for now. EGD with Patrizia today. Consider colonoscopy outpatient, should EGD come back negative. 07/09- EGD yesterday with large ulcers, not actively bleeding. Added sucralfate to pantoprazole but hemoglobin below 6 again this am. 2 units PRBCs, f/u after. 07/10- No vomiting, Hgb stable since transfusion, if continues to be stable would be stable for cath Thursday, Will advance diet today per surgery recommendations 07/11- Hgb stable, Will get retic count today, Start Fe infusions 07/12- Hgb stable today, will discuss case with surgery to see how long they would like to wait for cath, IV iron 07/13: Hgb Stable, continue IV iron 07/14: Hgb down today, discussed with Dr Acharya and will continue to monitor, Continue IV iron 07/15: Hgb up today, continue IV iron replacement 07/16: Hgb stable, continue IV Iron, cath today 07/17-07/20: Stable 07/21 - Medically stable but continued weakness and limited ambulation. Will do OT eval. Consult for SNU. Anticipate DC to [facility] by Thursday. Plan for PVD intervention by Dr. Chandra after discharge, possibly next week. 07/22 - Hb down from 8 to 6.7 - transfuse 2U prbc, will recheck H/H. Per Dr. Acharya if Hb continues to drop will do EGD. Plan to hold transfer to SNU until Thursday if patient stabilizes. 07/23 - Hb 9.3 after transfusion, back down to 7.8 this am. Will transfuse another [address] Acharya planning to do EGD. Dr. Fox to assume care for the weekend.- EGD done 07/23 with control of bleeding duodenal ulcer with epinephrine and clip 07/24/2018 -hemoglobin yesterday at 530 p.m. was 8.9 We will plan on rechecking this In the morning of July 25. It appears that he is not actively bleeding. I spoke with Dr. Acharya and we will go ahead and start clear liquid diet this morning 07/25/2018 - hemoglobin this morning was noted to be 8.0. This is a drop from 8.9. His hemoglobin will be rechecked in the morning. Also surgical input today. We'll defer on advancing diet until surgical evaluation today. 07/26- hypotensive overnight but hgb stable, will follow q6 today 07/27- hemoglobin with trend down, will continue q6 monitoring, appreciate Dr. Acharya's recommendations. 07/28- overall hemoglobin stable around 7.4, checking q12. Discussed with Dr. Acharya and family this am, plan for outpatient colonoscopy when more stable, anticipate possible d/c tomorrow or Thursday. 07/29- hemoglobin with recurrent drop to 6.6 yesterday s/p 1 unit, down to 6.4 this am, 2 more units given and plan for repeat scope 07/30- repeat EGD with repeat treatment of same bleeding duodenal ulcer. If rebleeding occurs, may need transfer to facility that can attempt IR embolization 07/31 - Hb down from 8.1 to 7.2; transfusing another 2 U (has 13 units total); Dr. Acharya and I discussed options with patient and family including repeat EGD and monitor vs transfer to for IR for embolization. Patient would like repeat EGD and monitor at this time and consider transfer if bleeding continues. 08/01 - Hb 8.8 post transfusion and stable this am at 8.7. EGD done yesterday - report not available. Dr. Acharya is advancing diet today. 08/02: Advancing diet to dysphagia 1, continue to monitor hgb, if patient drops again will need transferred for IR/GI intervention 08/03- Hgb stable, will plan for d.c to SNF for rehab Qualifiers: Qualified Codes: K92.2 - Gastrointestinal hemorrhage, unspecified (2) Acute systolic CHF (congestive heart failure) Status: Acute Assessment & Plan: 07/10: Echo with EF 25%, plan for cath when anemia is stable 07/11: Discussed case with cardiology, waiting to get cath procedure done 07/13: Cath to be done Thursday or Sunday 07/15: Plan for cath tomorrow 07/16: Cath today with stents placed 07/17: Dr Chandra has ordered lifevest for patient 07/21 : Lifevest in place; pt has had some discharges overnight, being managed by Dr. Chandra 07/28- patient not wanting to wear lifevest inpatient due to discomfort, he states the telemetry will get him help quickly. Discussed risks of life threatening arryhthmia, he states he will use when he is discharged. Continued on lisinopril, metoprolol, aspirin and ticegrelor. Not able to tolerate lisinopril and metoprolol last several days even at low dose due to hypotension. Difficult to balance risks of bleeding with need for antiplatelet therapy. 07/[address] this am 08/02: Life vest to prevent sudden cardiac (3) Debility Assessment & Plan: PT/OT, Will need rehab vs SNF following hospitalization 07/18: Will consult Rehab 07/21: SW working on placement for residential; consult in to [facility] 07/28- walking with PT and having daily improvements, plan for d/c to [facility] SNF tomorrow or Thursday depending on course next 24 hours. 07/30- continue PT while waiting on stabilization of GI bleed 08/02- If Hgb remains stable will d/c to SNF for rehab (4) Severe anemia Status: Acute Assessment & Plan: Pt required another unit of PRBCs last night. EGD with Patrizia today. Consider colonscopy outpatient, should EGD come back negative. 07/09- hgb below 6 this am, 2 units prbc today, repeat hemoglobin after. 07/22 - Hb down from 8 to 6.7 - transfuse 2U prbc, will recheck H/H. Per Dr. Acharya if Hb continues to drop will do EGD. Plan to hold transfer to SNU until Thursday if patient stabilizes. 07/23 - Hb 9.3 after transfusion, back down to 7.8 this am. Will transfuse another [address] Acharya planning to do EGD See GI bleed dx. (5) Diabetes mellitus, type 2 Status: Chronic Assessment & Plan: Diabetic diet when taking oral. Sliding scale insulin. 07/21: A1c 7.9%; BS running 200-300, will add Glyburide 2.5 mg daily 07/31 - BS improved 115-139 Qualifiers: (6) Right foot drop Status: Acute Assessment & Plan: MRI showed only lumbar spondylosis. No clear explanation for his foot drop. 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 (7) Poor appetite Status: Acute Assessment & Plan: Denies pain, concern for underlying serious condition given his anemia and weakness. Endoscopy recommended in vs outpatient depending on course. 07/08 EGD today 07/09 EGD yesterday with ulcers, treating with pantoprazole and sucralfate, biopsies pending Bx with esophagitis, no H pylori (8) Leg weakness, bilateral Status: Acute Assessment & Plan: PT. (9) BPH (benign prostatic hyperplasia) Status: Chronic Assessment & Plan: Previously on medication, he stopped due to side effects. Qualifiers: (10) PTSD (post-traumatic stress disorder) Status: Chronic Assessment & Plan: Resume home medications. (11) COPD (chronic obstructive pulmonary disease) Status: Chronic Assessment & Plan: Resume home inhalers (12) Coronary artery disease Status: Chronic Assessment & Plan: s/p stenting on 07/16. 07/30 per Cardiology, going ahead and holding aspirin due to recurrent bleeding, continue Brilinta. Qualifiers: Qualified Codes: I25.10 - Atherosclerotic heart disease of [place] coronary artery without angina pectoris (13) DVT prophylaxis Status: Acute Assessment & Plan: No pharmacologic ppx with active bleed. SCDs. (14) Acute and chronic respiratory failure with hypoxia Status: Resolved Assessment & Plan: 07/17: Arely consulted today, encourage patient to continue with Aerobike at least every hr, encouraged getting to edge of bed, will titrate as tolerated 07/18: Continue lasix for pulmonary edema, will titrate as tolerated 07/21: improved; down to 2.5L HF NC 07/28 stable on 2-3 lpm supplemental oxygen (15) Pulmonary edema cardiac cause Status: Resolved Assessment & Plan: 07/17: Dr Chandra added lasix today, will diuresis and monitor renal function 07/21: improved 07/28- remains on IV lasix daily, defer to Cardiology for timing on transition to oral 07/29- lasix d/c'd per Cardiology yesterday (16) Urinary retention due to benign prostatic hyperplasia Status: Resolved Assessment & Plan: Catheter placed 07/07 due to significant retention. 07/08 start Flomax, may need to d/c with liriano depending on course. 07/15: D/c liriano today 07/28 remains on tamsulosin, BP low will try switching to finasteride. (17) Hyperglycemia Status: Resolved Assessment & Plan: sliding scale insulin, diabetic diet when taking PO 07/10: A1c pending See DMII (18) Lower extremity edema Status: Resolved Assessment & Plan: Venous insufficiency/immobility versus related to his kidney function. Consider echocardiogram pending clinical course. 07/09- complaining of cough as well, will obtain echocardiogram 07/10- Abnormal echo, EF 25%, cardiology following 07/12: Discussed the importance of activity, getting to edge of bed, leg exercises and elevation of feet 07/14: Patient up in chair today (19) Hypokalemia Status: Resolved Assessment & Plan: Replace and recheck. (20) Lactic acidosis Status: Resolved Assessment & Plan: Unclear etiology with no source of infection. Improved with IVF. Denies abdominal pain to suggest ischemia. Clinical Quality Measures DVT/VTE Risk/Contraindication: Risk Factor Score Per Nursin RFS Level Per Nursing on Admit: 4+=Very High GENNA DUMONT MD Aug 03, 2018 20:32
[2018-08-03] MEDS: ATORVASTATIN 80 MG (LIPITOR) TABLET PO SCH (21:12)
--- NOTE | 2018-08-03 21:12 | Progress Note ---
Subjective Date Seen by a Provider: Aug 03, 2018 Time Seen by a Provider: 11:50 Subjective/Events-last exam Patient denies any new complaints. Tolerating dysphasia 1 diet. Denies any abdominal pain denies any nausea vomiting fever sweats chills shortness of breath or chest pain. Still breathing easier. Focused Exam Time of Focused Exam: 07:40 Objective Exam Vital Signs Date Time Temp Pulse Resp B/P (MAP) Pulse Ox O2 Delivery O2 Flow Rate FiO2 08/03/18 20:15 98.4 84 16 144/66 (92) 99 Nasal Cannula 3.00 08/03/18 16:56 97.5 79 16 151/82 (105) 100 Nasal Cannula 3.00 08/03/18 15:16 98 Nasal Cannula 3.00 08/03/18 13:00 86 08/03/18 12:00 98.1 80 20 125/68 (87) 97 Nasal Cannula 3.00 08/03/18 09:00 Nasal Cannula 3.00 08/03/18 08:00 97.6 74 20 118/71 (87) 98 Nasal Cannula 3.00 08/03/18 07:04 98 Nasal Cannula 3.00 08/03/18 07:00 68 08/03/18 05:28 98.7 78 20 125/59 (81) 100 Nasal Cannula 3.00 08/03/18 04:50 98.7 78 20 125/59 (81) 100 Nasal Cannula 3.00 08/03/18 01:00 79 08/03/18 00:13 97.6 89 20 135/78 (97) 98 Nasal Cannula 3.00 08/02/18 21:55 78 20 140/70 (93) 97 I & O 08/03/18 07:00 Intake Total 3210 ml Output Total 2798 ml Balance 412 ml Capillary Refill : Less Than 3 SecondsLess Than 3 Seconds General Appearance: No Apparent Distress, WD/WN HEENT: PERRL/EOMI; No Scleral Icterus (L), No Scleral Icterus (R) Neck: Full Range of Motion, Normal Inspection, Non Tender, Supple Respiratory: Chest Non Tender, No Accessory Muscle Use, No Respiratory Distress Cardiovascular: Regular Rate, Rhythm, No Edema Gastrointestinal: normal bowel sounds, non tender, soft Extremity: Normal Capillary Refill, Normal Inspection, Normal Range of Motion Neurologic/Psychiatric: Alert, Oriented x3, No Motor/Sensory Deficits, Normal Mood/Affect, advanced solutions architect II-XII Norm as Tested Skin: Normal Color, Warm/Dry Results Lab Laboratory Tests 08/02/18 21:42: Glucometer 279H 08/03/18 05:16: Glucometer 184H 08/03/18 05:25: White Blood Count 8.2, Red Blood Count 2.90L, Hemoglobin 8.8L, Hematocrit 27L, Mean Corpuscular Volume 92, Mean Corpuscular Hemoglobin 30, Mean Corpuscular Hemoglobin Concent 33, Red Cell Distribution Width 15.1H, Platelet Count 402H, Mean Platelet Volume 8.6, Sodium Level 139, Potassium Level 3.3L, Chloride Level 111H, Carbon Dioxide Level 20L, Anion Gap 8, Blood Urea Nitrogen 5L, Creatinine 0.72, Estimat Glomerular Filtration Rate > 60, BUN/Creatinine Ratio 7 , Glucose Level 163H, Calcium Level 7.7L 08/03/18 10:58: Glucometer 232H 08/03/18 16:54: Glucometer 139H 08/03/18 20:13: Glucometer 170H Microbiology 07/07/18 Blood Culture - Final, Complete No growth 07/31/18 MRSA Screen - Final, Complete MRSA not isolated 07/06/18 Urine Culture - Final, Complete NO GROWTH Assessment/Plan Assessment/Plan Assessment/Plan Anemia with GI bleed most likely upper due to duodenal ulcers and hx dark tarry stools Posttraumatic stress disorder Duodenal ulcers - active bleed seen during EGD Status post PCI to LAD Pulmonary edema Patient on Protonix, Carafate, tolerating diet. following hgb, continue to follow and will transfuse as needed pulmonary edema - breathing easier Medical management Had EGD Thursday and has not had any black, tarry stools since. Tolerating diet dys 1 Will continue to monitor. Could send to assisted with close follow-up. Clinical Quality Measures DVT/VTE Risk/Contraindication: Risk Factor Score Per Nursin RFS Level Per Nursing on Admit: 4+=Very High JAVIER MARTINEZ DO Aug 03, 2018 21:12
[2018-08-03] MEDS: ACETAMINOPHEN 500 MG TAB (TYLENOL) PO PRN (21:22)
[2018-08-04] MEDS: NYSTATIN ORAL SUSP 5 ML UDC PO SCH ×2 (00:51→05:59)
[2018-08-04] MEDS: NS IV 1000 ML 1,000 ML IV SCH ×2 (00:51→08:47)
[2018-08-04 04:16] VITALS: BP 126/58
[2018-08-04] MEDS: SUCRALFATE 1 GM (CARAFATE) TAB PO SCH (05:58)
[2018-08-04] MEDS: CATHETER FLUSH 10 ML SYR IV SCH (05:59)
[2018-08-04] MEDS: inSUlin ASPART (NovoLOG) 1 UNIT/0.01 ML (CHARGE PER UNIT) SC SCH (05:59)
--- NOTE | 2018-08-04 07:00 | Occ Therapy Progress Note ---
Therapy Progress Note LATE ENTRY-08/03/18 Discussed with nrsg late am pt to d/c today. Pt reported to nrsg that he had shower yesterday and did not want one today. Pt has medium resistance theraband in room and has demonstrated understanding and good technique using for exercise. CALIXTO DOMÍNGUEZ Aug 04, 2018 07:00
[2018-08-04 08:00] VITALS: BP 132/62
[2018-08-04] MEDS: PANTOPRAZOLE 40 MG (PROTONIX) TAB PO SCH (08:36)
[2018-08-04] MEDS: POLYETHYLENE GLYCOL 17 GM (MIRALAX) PACK PO SCH (08:36)
[2018-08-04] MEDS: PARoxetine 20 MG (PAXIL) TAB PO SCH (08:36)
[2018-08-04] MEDS: FINASTERIDE (PROSCAR) 5 MG TAB PO SCH (08:37)
[2018-08-04] MEDS: ALPRAZolam 0.5 MG (XANAX) TAB PO SCH (08:37)
[2018-08-04] MEDS: TICAGRELOR 90 MG TABLET (BRILINTA) PO SCH (08:37)
[2018-08-04] MEDS: SENNA W/DOCUSATE (SENOKOT S) TABLET PO SCH (08:37)
[2018-08-04] MEDS: NICOTINE 21 MG (NICODERM) PATCH TD SCH (08:43)
[2018-08-04] MEDS: PATCH REMOVAL TP SCH (08:43)
[2018-08-04] MEDS: UMECLIDINIUM BROMIDE (INCRUSE ELLIPTA) 7'S IH SCH (08:48)
[2018-08-04] MEDS: MENTHOL/ZINC OXIDE (CALMOSEPTINE) 113 GM TUBE TOP SCH (08:50)
[2018-08-04] MEDS: lisINopril 5 MG (PRINIVIL) TABLET PO SCH (09:09)
--- NOTE | 2018-08-04 09:37 | Occupational Ther Daily Note ---
OT Current Status-Daily Note Subjective Pt alert, finishing his breakfast. Lying in bed. No c/o pain. Pt stated that he was discharging today, that he thinks that the insurance is okay now. Agrees to therapy. Mental Status/Objective Patient Orientation: Person, Place, Time, Situation Therapy Code Descriptions/Definitions Functional [place] Measure: 0=Not Assessed/NA 4=Minimal Assistance 1=Total Assistance 5=Supervision or Setup 2=Maximal Assistance 6=Modified [place] 3=Moderate Assistance 7=Complete [place] ADL-Treatment Pt declined shower stating that he is supposed to be leaving soon and will take a shower at [facility]. Did agree to sponge bath. Did not want to put on street clothes yet. Pt completed sponge bath independently and was able to don/doff socks, underwear and hospital gown by self. After therapy, pt lying in bed with call light/phone in reach. All needs met in room. Bathing (FIM): 7 Upper Body (FIM): 7 Lower Body Dressing (FIM): 7 OT Short Term Goals Short Term Goals 1=Demonstrate adherence to instructed precautions during ADL tasks. 2=Patient will verbalize/demonstrate understanding of assistive devices/ modifications for ADL. 3=Patient will improve strength/tolerance for activity to enable patient to perform ADL's. OT Half-Way Goals Manufacturing Plant Technician Goals Time Frame: Aug 11, 2018 Eating (FIM): 7 Grooming(FIM): 6 Bathing(FIM): 6 Upper Body Dressing(FIM): 6 Lower Body Dressing(FIM): 6 Toileting(FIM): 6 Toilet/Commode Transfer(FIM): 6 Shower Transfer(FIM): 6 Additional Goals: 1-Demonstrate ADL Tasks, 2-Verbalize Understanding, 3- ImproveStrength/Michel 1=Demonstrate adherence to instructed precautions during ADL tasks. 2=Patient will verbalize/demonstrate understanding of assistive devices/ modifications for ADL. 3=Patient will improve strength/tolerance for activity to enable patient to perform ADL's. OT Education/Plan Problem List/Assessment Pt would benefit from skilled Ot to increase his independence in basic self care to allow him to return to his apartment to live independently Discharge Recommendations Plan/Recommendations: Continue POC Treatment Plan/Plan of Care Patient would benefit from OT for education, treatment and training to promote independence in ADL's, mobility, safety and/or upper extremity function for ADL' s. Plan of Care: ADL Retraining, Functional Mobility, UE Funct Exercise/Act, UE Neuromus Re-Ed/Coord, OTHER (energy conservation education and practice) Treatment Duration: Aug 11, 2018 Frequency: 5 times per week Estimated Hrs Per Day: .5 hour per day Agreement: Yes Rehab Potential: Good Time/GCodes Start Time: 09:10 Stop Time: 09:26 Total Time Billed (hr/min): 16 Billed Treatment Time 1 visit-ADL 1 (16 min) CALIXTO DOMÍNGUEZ Aug 04, 2018 09:37
[2018-08-04] MEDS: RT-ALBUTEROL SULF 2.5 MG/3 ML PRE-MIX VIAL INH SCH (11:10)
[2018-08-04] MEDS: RT-ADVAIR HFA 115/21 MCG PER PUFF IH SCH (11:18)
--- NOTE | 2018-08-04 11:59 | Cardiology Progress Note ---
Cardiology SOAP Progress Note Subjective: Significantly better. No further bleeding. Objective: I&O/Vital Signs 08/04/18 08/04/18 08/04/18 08/04/18 04:16 08:00 09:00 11:11 Temp 96.5 98.0 Pulse 72 83 Resp 18 18 B/P (MAP) 126/58 (80) 132/62 (85) Pulse Ox 100 92 98 O2 Delivery Nasal Cannula Nasal Cannula Nasal Cannula Room Air O2 Flow Rate 3.00 3.00 3.00 08/04/18 11:18 Pulse Ox 98 O2 Delivery Room Air 08/04/18 00:00 Intake Total 1440 ml Output Total 1875 ml Balance -435 ml Weight (Pounds): 135 Weight (Ounces): 4.0 Weight (Calculated Kilograms): 61.961952 Constitutional: appears stated age, AAO x 3; No apparent distress; well- developed, other (Thin-appearing) Respiratory: chest is bilaterally symmetric, other (coarse bibasilar crackled; fair to good air entry) Cardiovascular: regular rate-rhythm, S1 and S2, systolic murmur (soft ATTILA at card base) Gastrointestional: No tender; soft; No guarding, No rebound; audible bowel sounds Extremities: pedal edema (moderate); No clubbing, No cyanosis Neurologic/Psychiatric: alert, normal mood/affect, oriented x 3, other (seems to be able to move all limgs equally), grossly intact Skin: pallor; No rash on exposed areas, No ulcerations on exposed areas Results/Procedures: Labs Laboratory Tests 08/03/18 16:54: Glucometer 139H 08/03/18 20:13: Glucometer 170H 08/04/18 05:32: Glucometer 138H 08/04/18 10:56: Glucometer 171H Microbiology 07/07/18 Blood Culture - Final, Complete No growth 07/31/18 MRSA Screen - Final, Complete MRSA not isolated 07/06/18 Urine Culture - Final, Complete NO GROWTH A/P: Assessment/Dx: Acute respiratory failure, pulmonary edema, resolved anemia, Recent GI bleeding, Severe Peptic ulcer disease, Severe dilated cardiomyopathy, s/p PCI to LAD with ADDISON 07/16/2018 Smoking, HTN, DM, Hyperlipidemia, Hypokalemia, CKD, Leg discomfort, Aortic insufficiency, ASD, Acute diastolic CHF, Pulmonary HTN, COPD Plan: Acute respiratory failure, pulmonary edema, chest x-ray shows pulmonary edema, increased BNP (on admission). Improved significantly. Euvolemic today. DC lasix. Resolved. Recent GI bleeding, on PPI and sucrafate. received PRBCs numerous times during this admission. recurrent GI bleeding (duodenal). Dr. Acharya following. Aspirin dced - which may help. Hb stable. No further bleeding. Severe Peptic ulcer disease, Severe dilated cardiomyopathy, LVEF on Echo 25% with anterior/apical hypokinesis. very likely due to CAD. 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 Collaterals from the left circumflex artery. Moderate left circumflex artery stenosis. Severe LAD stenosis treated successfully with drug-eluting stents 07/16/2018. LVEDP 28 mmHg. due to significant GI bleed, I will discontinue aspirin and only continue Brilinta ( last ). I discussed at length with the patient's son that this may help with GI bleeding however there is a small chance that the patient may developed stent thrombosis. Lifevest for primary prevention of sudden cardiac , dilated cardiomyopathy. Patient is wearing a LifeVest. Smoking - smoking cessation was strongly recommended. HTN, lisinopril and BB. DM, continue metformin for now. Hyperlipidemia, statin therapy. Hypokalemia, CKD; Diabetic nephropathy likely. occasional Leg discomfort, lifestyle limiting claudication, bilateral significant PAD. No further intervention till the patient has no further GI bleeding for atleast a month. Aortic insufficiency, follow clinically. 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 Acute diastolic CHF, pseudonormal diastolic dysfunction. caution with IV fluids. Pulmonary HTN, likely secondary to COPD. COPD, defer to primary team. Agree with transfer to inpatient rehab. Thank you for your consultation. Please call me if you have any questions. Kusum Chandra MD, FACP, FACC, FSCAI, FHRS, CCDS Interventional Cardiology Cardiac Electrophysiology Vascular Medicine and Endovascular Interventions Focused Exam Time of Focused Exam: 07:40 Jose CHANDRA MD Aug 04, 2018 11:59
[2018-08-04 12:00] VITALS: BP 128/60
== END 2018-08-04 13:00 | DRG 329 ==
LOC: EDUNIT# 22:32 → ER 22:34 → ICU 07-07 01:02 → 4TH 07-08 16:38
PROVIDERS: ADMIT Family Medicine; ATTEND Family Medicine
PROC: 0DB98ZX Excision of Duodenum, Via Natural or Artificial Opening Endoscopic, Diagnostic (ICD-10-PCS; 2018-07-08)
PROC: 0DB78ZX Excision of Stomach, Pylorus, Via Natural or Artificial Opening Endoscopic, Diagnostic (ICD-10-PCS; 2018-07-08)
PROC: 0DB48ZX Excision of Esophagogastric Junction, Via Natural or Artificial Opening Endoscopic, Diagnostic (ICD-10-PCS; 2018-07-08)
PROC: 027035Z Dilation of Coronary Artery, One Artery with Two Drug-eluting Intraluminal Devices, Percutaneous Approach (ICD-10-PCS; principal; 2018-07-16)
PROC: 4A023N7 Measurement of Cardiac Sampling and Pressure, Left Heart, Percutaneous Approach (ICD-10-PCS; 2018-07-16)
PROC: B2111ZZ Fluoroscopy of Multiple Coronary Arteries using Low Osmolar Contrast (ICD-10-PCS; 2018-07-16)
PROC: B3101ZZ Fluoroscopy of Thoracic Aorta using Low Osmolar Contrast (ICD-10-PCS; 2018-07-16)
PROC: B31P1ZZ Fluoroscopy of Thoraco-Abdominal Aorta using Low Osmolar Contrast (ICD-10-PCS; 2018-07-16)
PROC: 0DL98DZ Occlusion of Duodenum with Intraluminal Device, Via Natural or Artificial Opening Endoscopic (ICD-10-PCS; 2018-07-23)
PROC: 3E0H8GC Introduction of Other Therapeutic Substance into Lower GI, Via Natural or Artificial Opening Endoscopic (ICD-10-PCS; 2018-07-23)
PROC: 3E0H8GC Introduction of Other Therapeutic Substance into Lower GI, Via Natural or Artificial Opening Endoscopic (ICD-10-PCS; 2018-07-29)
PROC: 3E0H8GC Introduction of Other Therapeutic Substance into Lower GI, Via Natural or Artificial Opening Endoscopic (ICD-10-PCS; 2018-07-31)
DX: K26.4 Chronic or unspecified duodenal ulcer with hemorrhage (principal); K29.71 Gastritis, unspecified, with bleeding; I11.0 Hypertensive heart disease with heart failure; I50.31 Acute diastolic (congestive) heart failure; J96.21 Acute and chronic respiratory failure with hypoxia; N17.9 Acute kidney failure, unspecified; E87.2 Acidosis; D62 Acute posthemorrhagic anemia; Z66 Do not resuscitate; I42.0 Dilated cardiomyopathy; B37.0 Candidal stomatitis; J81.1 Chronic pulmonary edema; K21.0 Gastro-esophageal reflux disease with esophagitis; K44.9 Diaphragmatic hernia without obstruction or gangrene; R53.81 Other malaise; E11.65 Type 2 diabetes mellitus with hyperglycemia; E87.6 Hypokalemia; J44.9 Chronic obstructive pulmonary disease, unspecified; N40.1 Benign prostatic hyperplasia with lower urinary tract symptoms; R33.8 Other retention of urine; M21.371 Foot drop, right foot; F17.210 Nicotine dependence, cigarettes, uncomplicated; K58.1 Irritable bowel syndrome with constipation; I25.82 Chronic total occlusion of coronary artery; F43.10 Post-traumatic stress disorder, unspecified; F32.9 Major depressive disorder, single episode, unspecified; I27.20 Pulmonary hypertension, unspecified; I70.0 Atherosclerosis of aorta; I70.223 Atherosclerosis of native arteries of extremities with rest pain, bilateral legs; I70.213 Atherosclerosis of native arteries of extremities with intermittent claudication, bilateral legs
CPT/HCPCS: 36221; 36415; 36430; 36600; 71045; 72148; 75625; 75716; 80048; 80053; 80061; 81000; 82805; 82962; 83036; 83605; 83735; 83880; 84100; 84484; 85007; 85014; 85018; 85025; 85027; 85045; 85347; 85610; 85730; 86850; 86900; 86901; 86920; 87040; 87081; 87088; 88305; 93005; 93306; 93458; 94640; 94660; 94760; 96374; 96375; 96376; 99291

== ENCOUNTER 2018-08-07 08:45 | Emergency (ER) | payer MEDICARE, MEDICAID ==
[~2018-08-07] VITALS: Ht 170.2 cm; Wt 61.3 kg
[~2018-08-07 08:45] MED LIST: ALBU18HF2 INH; ALPR0.5T7 PO; ATOR80TA76 PO; BUDE10.2 INH; CHLO500T4 PO; DIPH25CA79 PO; FINA5TAB6 PO; Finasteride PO; IBUP-30 PO; INSU100I29 SC; LISI-556 PO; METF500T8 PO; METO-387 PO; NYST1000 PO; OMEP40CA36 PO; PARO20TA5 PO; POLY17PO31 PO; PRD20T PO; SENN-20 PO; SUCR1TAB PO; TICA90TA PO; TRAM50TA2 PO; UMEC62.5 INH; [UNRECOGNIZED DRUG - CODE] PO
--- OUTSIDE RECORDS SUMMARY | 2018-08-07 08:51 | XMS REPORT ---
Author Author RONDA STAHL Organization [facility] Address [address] [place] [address] Care Team Providers Care Domestic Cleaner Name Role Phone RONDA STAHL Unavailable PROBLEMS Type Condition ICD9-CM Code MDI88-EF Code Onset Dates Condition Status SNOMED Code Problem Hypertriglyceridemia E78.1 Active 608551947 Problem COPD exacerbation J44.1 Active 589350313 Problem Diabetes E11.9 Active 80027330 Problem Diabetes type 2, controlled E11.9 Active 20129696 Problem Other chronic pain G89.29 Active 57038725 Problem Panlobular emphysema J43.1 Active 5104381 Problem Uncontrolled type 2 diabetes mellitus with hyperglycemia E11.65 Active 212372483 Problem Type 2 diabetes mellitus without complication, without long-term current use of insulin E11.9 Active 446870552 Problem PTSD (post-traumatic stress disorder) F43.10 Active 71572454 Problem Gastroesophageal reflux disease with esophagitis K21.0 Active 354148332 ALLERGIES No Information ENCOUNTERS Encounter Location Date Diagnosis [place] [id number] [place] [address] 31576- 7302 Jul, [place] [address] [place] [id number] [place] [address] 95162- 6723 Jul, [place] [address] [place] [id number] [place] [address] 19560- 2734 Jun, PTSD (post-traumatic stress disorder) F43.10 [place] [address] [place] [id number] [place] [address] 80316- 8754 Jun, [place] [address] [place] [id number] [place] [address] 63189- 6502 Jun, PTSD (post-traumatic stress disorder) F43.10 [place] [address] 46850- 0655 Jun, [place] [address] [place] [id number] [place] [address] 61551- 5898 Jun, [place] [address] [place] [id number] [place] [address] 73828- 9179 Jun, Uncontrolled type 2 diabetes mellitus without complication, without long-term current use of insulin E11.65 [place] [address] 01573- 3751 Jun, PTSD (post-traumatic stress disorder) F43.10 ; Low back pain M54.5 ; Other chronic pain G89.29 ; Gastroesophageal reflux disease with esophagitis K21.0 and Panlobular emphysema J43.1 [place] [address] [place] [id number] [place] [address] 28966- 4493 Jun, [place] [address] 69770- 0520 Jun, Other chest pain R07.89 ; Tachycardia R00.0 and Murmur, cardiac R01.1 [place] [address] [place] [id number] [place] [address] 57799- 9356 May, Other chest pain R07.89 ; Tachycardia R00.0 and Murmur, cardiac R01.1 [facility] [address] [id number] [place] [address] 68675 -1528 May, [place] [address] [place] [id number] [place] [address] 27256- 2207 May, Uncontrolled type 2 diabetes mellitus with hyperglycemia E11.65 and Oral candidiasis B37.0 [place] [address] [place] [id number] [place] [address] 63328- 0600 May, COPD exacerbation J44.1 [place] [address] [place] [id number] [place] [address] 46506- 9836 May, COPD exacerbation J44.1 [facility] [address] [id number] [place] [address] 73011 -6607 May, COPD exacerbation J44.1 and Type 2 diabetes mellitus without complication, without long-term current use of insulin E11.9 [facility] [id number] [place] [address] 72648 -0771 May, Difficulty breathing R06.89 and Acute bronchitis, unspecified organism J20.9 [facility] [address] [id number] [place] [address] 38180- 1780 Apr, Uncontrolled type 2 diabetes mellitus without complication, without long-term current use of insulin E11.65 [facility] [address] [id number] [place] [address] 77473- 7275 Feb, [facility] [id number] [place] [address] 45171- 9104 Feb, [facility] [id number] [place] [address] 36144- 8649 Feb, [facility] [address] [id number] [place] [address] 74313- 2693 Jan, [facility] [address] [address] [id number] [place] [address] 31070- 1866 Oct, [facility] [id number] [place] [address] 58925- 7372 Jul, Diabetes type 2, controlled E11.9 [facility] [id number] [place] [address] 91121- 8181 Jun, [facility] [id number] [place] [address] 29998- 5256 May, [facility] [address] [id number] [place] [address] 71602- 6825 May, Diabetes type 2, controlled E11.9 and Hypertriglyceridemia E78.1 [facility] [address] [address] [id number] [place] [address] 05610- 2169 May, [facility] [address] [address] [id number] [place] [address] 95031- 0666 Apr, Hypertriglyceridemia 272.1 ; Influenza vaccine administered V04.81 and Diabetes 250.00 [facility] [address] [address] [id number] [place] [address] 224379- 0011 Mar, DM type 2 (diabetes mellitus, type 2) 250.00 ; Essential hypertension, benign 401.1 and Mood disorder 296.90 [facility] [address] [address] [id number] [place] [address] 11081- 1254 Jan, [facility] [address] [address] [id number] [place] [address] 62175- 9393 Nov, [facility] [address] [address] [id number] [place] [address] 88187- 1376 Nov, [facility] [address] [place] [address] [id number] [place] [address] 55262- 1026 Sep, [facility] [address] [address] [id number] [place] [address] 59799- 5748 Sep, [facility] [address] [place] [address] [id number] [place] [address] 80364- 7323 Sep, [facility] [address] [address] [id number] [place] [address] 69358- 7863 Sep, [facility] [address] [id number] [place] [address] 31545- 2210 May, [facility] [address] [address] [id number] [place] [address] 51712- 2168 May, [facility] [address] [address] [id number] [place] [address] 41842- 3780 Apr, [facility] [address] [id number] [place] [address] 608837- 3070 Apr, [facility] [address] [address] [id number] [place] [address] 26541- 5687 Mar, [facility] [address] [address] [id number] [place] [address] [id number]- 0720 Mar, [facility] [place] [facility] [address] [id number] [place] [address]- 6875 Mar, [facility] [place] [facility] [address] [id number] [place] [address]- 6044 Mar, [facility] [place] [facility] [address] [id number] [place] [address]- 1684 Jan, [facility] [place] [facility] [address] [id number] [place] [address]- 7263 Jan, [facility] [place] [facility] [address] [id number] [place] [address]- 4158 Jan, [facility] [place] [facility] [address] [id number] [place] [address]- 1750 Jan, [facility] [place] [facility] [address] [id number] [place] [address]- 3473 Jan, [facility] [place] [facility] [address] [id number] [place] [address]- 4822 Jan, [facility] [place] [facility] [address] [id number] [place] [address]- 3663 Oct, [facility] [place] [facility] [address] [id number] [place] [address]- 7781 Oct, [facility] [place] [facility] [address] [id number] [place] [address]- 4007 Sep, [facility] [place] [facility] [address] [id number] [place] [address]- 1476 Sep, [facility] [place] [facility] [address] [id number] [place] [address]- 0701 Jun, [facility] [place] [facility] [address] [id number] [place] [address]- 8146 Jun, [facility] [place] [facility] [address] [id number] [place] [address]- 8327 Mar, [facility] [place] [facility] [address] [id number] [place] [address]- 1841 Feb, [facility] [address] [id number] [place] [address]- 3557 Feb, [facility] [place] [facility] [address] [id number] [place] [address]- 8587 Nov, [facility] [place] [facility] [address] [id number] [place] [address]- 4197 Aug, [facility] [place] [facility] [address] [id number] [place] [address]- 8510 Aug, [facility] [place] [facility] [address] [id number] [place] [address]- 1346 Jul, [facility] [place] [facility] [address] [id number] [place] [address]- 0492 Jul, [facility] [place] [facility] [address] [id number] [place] [address]- 3356 May, [facility] [place] [facility] [address] [id number] [place] [address]- 9586 May, [facility] [place] [facility] [address] [id number] [place] [address]- 1535 May, [facility] [place] [facility] [address] [id number] [place] [address]- 5460 May, [facility] [place] [facility] [address] [id number] [place] [address]- 6958 Apr, [facility] [place] [facility] [address] [id number] [place] [address]- 2542 Feb, [facility] [place] [facility] [address] [id number] [place] [address]- 2626 Feb, [facility] [place] [facility] [address] [id number] [place] [address] 2546 Jan, [facility] [place] [facility] [address] [id number] [place] [address]- 7943 Jan, [facility] [address] [address]- 4342 Nov, [facility] [address] [address]- 4270 Oct, [facility] [address] [address]- 6495 Oct, [facility] [address] [place] [id number] [place] [address] 79003- 9976 Jul, [facility] [id number] [place] [address] 18927- 5480 May, [facility] [address] [place] [id number] [place] [address] 56028- 2975 Nov, [facility] [address] [place] [address]- 1010 Jun, [facility] [address] [place] [address]- 9889 December, [facility] [address] [place] [id number] [address]- 8026 Jul, IMMUNIZATIONS No Known Immunizations SOCIAL HISTORY Never Assessed REASON FOR VISIT ROSITA Chappell/ PLAN OF CARE VITAL SIGNS MEDICATIONS Unknown [...]
--- OUTSIDE RECORDS SUMMARY | 2018-08-07 08:51 | XMS REPORT ---
Author Author RONDA STAHL Organization [facility] Address [address] [place] [address] Care Team Providers Care Waiter/Waitress Cafeteria Name Role Phone RONDA STAHL Unavailable PROBLEMS Type Condition ICD9-CM Code EFB35-TY Code Onset Dates Condition Status SNOMED Code Problem Hypertriglyceridemia E78.1 Active 629908398 Problem COPD exacerbation J44.1 Active 833803831 Problem Diabetes E11.9 Active 25998643 Problem Diabetes type 2, controlled E11.9 Active 94808098 Problem Other chronic pain G89.29 Active 40266867 Problem Panlobular emphysema J43.1 Active 6275488 Problem Uncontrolled type 2 diabetes mellitus with hyperglycemia E11.65 Active 359039567 Problem Type 2 diabetes mellitus without complication, without long-term current use of insulin E11.9 Active 082407647 Problem PTSD (post-traumatic stress disorder) F43.10 Active 38219162 Problem Gastroesophageal reflux disease with esophagitis K21.0 Active 360520050 ALLERGIES No Information ENCOUNTERS Encounter Location Date Diagnosis [place] [id number] [place] [address] 93844- 6919 Jul, [place] [address] [place] [id number] [place] [address] 83335- 5911 Jul, [place] [address] [place] [id number] [place] [address] 60515- 2968 Jun, PTSD (post-traumatic stress disorder) F43.10 [place] [address] [place] [id number] [place] [address] 50759- 8852 Jun, [place] [address] [place] [id number] [place] [address] 17155- 1893 Jun, PTSD (post-traumatic stress disorder) F43.10 [place] [address] 23600- 1830 Jun, [place] [address] [place] [id number] [place] [address] 18928- 8313 Jun, [place] [address] [place] [id number] [place] [address] 62530- 0298 Jun, Uncontrolled type 2 diabetes mellitus without complication, without long-term current use of insulin E11.65 [place] [address] 85082- 4380 Jun, PTSD (post-traumatic stress disorder) F43.10 ; Low back pain M54.5 ; Other chronic pain G89.29 ; Gastroesophageal reflux disease with esophagitis K21.0 and Panlobular emphysema J43.1 [place] [address] [place] [id number] [place] [address] 22394- 9937 Jun, [place] [address] 41105- 0542 Jun, Other chest pain R07.89 ; Tachycardia R00.0 and Murmur, cardiac R01.1 [place] [address] [place] [id number] [place] [address] 41930- 8960 May, Other chest pain R07.89 ; Tachycardia R00.0 and Murmur, cardiac R01.[address] [facility] [address] [id number] [place] [address] 71027 -0730 May, [place] [address] [place] [id number] [place] [address] 18896- 0216 May, Uncontrolled type 2 diabetes mellitus with hyperglycemia E11.65 and Oral candidiasis B37.0 [place] [address] [place] [id number] [place] [address] 97551- 6498 May, COPD exacerbation J44.1 [place] [address] [place] [id number] [place] [address] 27271- 5500 May, COPD exacerbation J44.1 [facility] [id number] [place] [address] 47493 -3469 May, COPD exacerbation J44.1 and Type 2 diabetes mellitus without complication, without long-term current use of insulin E11.9 [facility] [id number] [place] [address] 28168 -2517 May, Difficulty breathing R06.89 and Acute bronchitis, unspecified organism J20.9 [facility] [address] [address] [id number] [place] [address] 96374- 1727 Apr, Uncontrolled type 2 diabetes mellitus without complication, without long-term current use of insulin E11.65 [facility] [id number] [place] [address] 09777- 8512 Feb, [facility] [id number] [place] [address] 30461- 1473 Feb, [facility] [id number] [place] [address] 52274- 0626 Feb, [facility] [id number] [place] [address] 40033- 4962 Jan, [facility] [id number] [place] [address] 14536- 1823 Oct, [facility] [id number] [place] [address] 43926- 2324 Jul, Diabetes type 2, controlled E11.9 [facility] [id number] [place] [address] 70572- 7896 Jun, [facility] [id number] [place] [address] 17596- 0652 May, [facility] [id number] [place] [address] 03097- 8585 May, Diabetes type 2, controlled E11.9 and Hypertriglyceridemia E78.1 [facility] [id number] [place] [address] 94703- 6920 May, [facility] [id number] [place] [address] 48925- 0693 Apr, Hypertriglyceridemia 272.1 ; Influenza vaccine administered V04.81 and Diabetes 250.00 [facility] [id number] [place] [address] 061097- 6600 Mar, DM type 2 (diabetes mellitus, type 2) 250.00 ; Essential hypertension, benign 401.1 and Mood disorder 296.90 [facility] [id number] [place] [address] 91343- 4417 Jan, [facility] [id number] [place] [address] 56994- 0441 Nov, [facility] [id number] [place] [address] 51994- 8093 Nov, [facility] [id number] [place] [address] 22609- 6154 Sep, [facility] [id number] [place] [address] 47101- 5460 Sep, [facility] [id number] [place] [address] 99178- 8713 Sep, [facility] [id number] [place] [address] 99661- 8288 Sep, [facility] [id number] [place] [address] 73490- 7210 May, [facility] [id number] [place] [address] 47691- 7610 May, [facility] [id number] [place] [address] 16373- 7251 Apr, [facility] [id number] [place] [address] 033165- 7004 Apr, [facility] [id number] [place] [address] 93213- 1270 Mar, [facility] [id number] [place] [address] 42896709- 5771 Mar, [facility] [place] [facility] [address] [id number] [place] [address]- 5957 Mar, [facility] [place] [facility] [address] [id number] [place] [address]- 2125 Mar, [facility] [place] [facility] [address] [id number] [place] [address]- 3863 Jan, [facility] [place] [facility] [address] [id number] [place] [address]- 0169 Jan, [facility] [place] [facility] [address] [id number] [place] [address]- 8728 Jan, [facility] [place] [facility] [address] [id number] [place] [address]- 0976 Jan, [facility] [place] [facility] [address] [id number] [place] [address]- 1845 Jan, [facility] [place] [facility] [address] [id number] [place] [address]- 8797 Jan, [facility] [place] [facility] [address] [id number] [place] [address]- 8407 Oct, [facility] [place] [facility] [address] [id number] [place] [address]- 8290 Oct, [facility] [place] [facility] [address] [id number] [place] [address]- 0015 Sep, [facility] [place] [facility] [address] [id number] [place] [address]- 4354 Sep, [facility] [place] [facility] [address] [id number] [place] [address]- 7925 Jun, [facility] [place] [facility] [address] [id number] [place] [address]- 4378 Jun, [facility] [place] [facility] [address] [id number] [place] [address]- 6211 Mar, [facility] [place] [facility] [address] [id number] [place] [address]- 4863 Feb, [facility] [address] [id number] [place] [address]- 3526 Feb, [facility] [place] [facility] [address] [id number] [place] [address]- 6630 Nov, [facility] [place] [facility] [address] [id number] [place] [address]- 0181 Aug, [facility] [place] [facility] [address] [id number] [place] [address]- 0741 Aug, [facility] [place] [facility] [address] [id number] [place] [address]- 3301 Jul, [facility] [place] [facility] [address] [id number] [place] [address]- 5592 Jul, [facility] [place] [facility] [address] [id number] [place] [address]- 7423 May, [facility] [place] [facility] [address] [id number] [place] [address]- 3644 May, [facility] [place] [facility] [address] [id number] [place] [address]- 2796 May, [facility] [place] [facility] [address] [id number] [place] [address]- 4195 May, [facility] [place] [facility] [address] [id number] [place] [address]- 5654 Apr, [facility] [place] [facility] [address] [id number] [place] [address]- 2545 Feb, [facility] [place] [facility] [address] [id number] [place] [address]- 1215 Feb, [facility] [place] [facility] [address] [id number] [place] [address] 2546 Jan, [facility] [place] [facility] [address] [id number] [place] [address]- 1057 Jan, [facility] [id number] [address]- 0587 Nov, [facility] [address], [place] [address]- 5656 Oct, [facility] [address], [place] [address]- 8315 Oct, [facility] [address] [address] Jul, [facility] [address] [address] May, [facility] [id number] [place] [address] Nov, [facility] [address] [address] Jun, [facility] [address] [address] December, [facility] [address] [id number] [address] Jul, IMMUNIZATIONS No Known Immunizations SOCIAL HISTORY Never Assessed REASON FOR VISIT Routine nurse call PLAN OF CARE VITAL SIGNS MEDICATIONS Medication Instructions Dosage Frequency Start Date End Date Duration Status Oxygen 2 L/NC as directed Jun, Active RESULTS No Results PROCEDURES No Known procedures INSTRUCTIONS MEDICATIONS ADMINISTERED No Known Medications MEDICAL (GENERAL) HISTORY Type Description Date Medical History hypertension Medical History diabetes type 2 Medical History PTSD Medical History IBS Medical History Back pain Surgical History No Surgical history information Hospitalization History rectal and vomitting blood
--- OUTSIDE RECORDS SUMMARY | 2018-08-07 08:51 | XMS REPORT ---
Author Author RONDA STAHL Organization [facility] Address [address] [place] [address] Care Team Providers Care Track Broom Operator Name Role Phone RONDA STAHL Unavailable PROBLEMS Type Condition ICD9-CM Code UGB38-DC Code Onset Dates Condition Status SNOMED Code Problem Hypertriglyceridemia E78.1 Active 305538771 Problem COPD exacerbation J44.1 Active 236479110 Problem Diabetes E11.9 Active 39454330 Problem Diabetes type 2, controlled E11.9 Active 04261473 Problem Other chronic pain G89.29 Active 25316189 Problem Panlobular emphysema J43.1 Active 0880390 Problem Uncontrolled type 2 diabetes mellitus with hyperglycemia E11.65 Active 499066371 Problem Type 2 diabetes mellitus without complication, without long-term current use of insulin E11.9 Active 857249227 Problem PTSD (post-traumatic stress disorder) F43.10 Active 85657365 Problem Gastroesophageal reflux disease with esophagitis K21.0 Active 836363669 ALLERGIES No Information ENCOUNTERS Encounter Location Date Diagnosis [place] [id number] [place] [address] 50834- 4200 Jul, [place] [address] [place] [id number] [place] [address] 37116- 6510 Jul, [place] [address] [id number] [place] [address] 71730- 6977 Jun, PTSD (post-traumatic stress disorder) F43.10 [place] [address] [id number] [place] [address] 10059- 6035 Jun, [place] [address] [id number] [place] [address] 58419- 1264 Jun, PTSD (post-traumatic stress disorder) F43.10 [place] [address] 44821- 6928 Jun, [place] [address] [id number] [place] [address] 14317- 1812 Jun, [place] [address] [id number] [place] [address] 95237- 4115 Jun, Uncontrolled type 2 diabetes mellitus without complication, without long-term current use of insulin E11.65 [place] [address] 46053- 1306 Jun, PTSD (post-traumatic stress disorder) F43.10 ; Low back pain M54.5 ; Other chronic pain G89.29 ; Gastroesophageal reflux disease with esophagitis K21.0 and Panlobular emphysema J43.1 [place] [address] [id number] [place] [address] 13878- 2510 Jun, [place] [address] 59888- 9901 Jun, Other chest pain R07.89 ; Tachycardia R00.0 and Murmur, cardiac R01.1 [place] [address] [id number] [place] [address] 05696- 4527 May, Other chest pain R07.89 ; Tachycardia R00.0 and Murmur, cardiac R01.1 [facility] [id number] [place] [address] 81494 -5241 May, [place] [address] [id number] [place] [address] 09480- 7850 May, Uncontrolled type 2 diabetes mellitus with hyperglycemia E11.65 and Oral candidiasis B37.0 [place] [address] [id number] [place] [address] 28669- 9398 May, COPD exacerbation J44.1 [place] [address] [id number] [place] [address] 23904- 7281 May, COPD exacerbation J44.1 [facility] [id number] [place] [address] 88097 -2600 May, COPD exacerbation J44.1 and Type 2 diabetes mellitus without complication, without long-term current use of insulin E11.9 [facility] [id number] [place] [address] 80821 -8729 May, Difficulty breathing R06.89 and Acute bronchitis, unspecified organism J20.9 [facility] [id number] [place] [address] 97068- 8145 Apr, Uncontrolled type 2 diabetes mellitus without complication, without long-term current use of insulin E11.65 [facility] [id number] [place] [address] 81410- 8411 Feb, [facility] [id number] [place] [address] 49054- 8193 Feb, [facility] [id number] [place] [address] 54421- 2809 Feb, [facility] [id number] [place] [address] 65687- 9406 Jan, [facility] [id number] [place] [address] 09858- 7528 Oct, [facility] [id number] [place] [address] 61406- 5847 Jul, Diabetes type 2, controlled E11.9 [facility] [id number] [place] [address] 91444- 8134 Jun, [facility] [id number] [place] [address] 71189- 4345 May, [facility] [id number] [place] [address] 97915- 5438 May, Diabetes type 2, controlled E11.9 and Hypertriglyceridemia E78.1 [facility] [id number] [place] [address] 51265- 8722 May, [facility] [id number] [place] [address] 58570- 8824 Apr, Hypertriglyceridemia 272.1 ; Influenza vaccine administered V04.81 and Diabetes 250.00 [facility] [id number] [place] [address] 857289- 7555 Mar, DM type 2 (diabetes mellitus, type 2) 250.00 ; Essential hypertension, benign 401.1 and Mood disorder 296.90 [facility] [id number] [place] [address] 96756- 0129 Jan, [facility] [address] [id number] [place] [address] 63068- 7350 Nov, [facility] [address] [id number] [place] [address] 23106- 5919 Nov, [facility] [id number] [place] [address] 64022- 9039 Sep, [facility] [id number] [place] [address] 35040- 1490 Sep, [facility] [id number] [place] [address] 74395- 5808 Sep, [facility] [id number] [place] [address] 83354- 9831 Sep, [facility] [id number] [place] [address] 58959- 0755 May, [facility] [id number] [place] [address] 29888- 8174 May, [facility] [id number] [place] [address] 67102- 1932 Apr, [facility] [id number] [place] [address] 944005- 5783 Apr, [facility] [id number] [place] [address] 93228- 3998 Mar, [facility] [id number] [place] [address] 03265213- 6745 Mar, [facility] [place] [facility] [address] [id number] [place] [address]- 1045 Mar, [facility] [place] [facility] [address] [id number] [place] [address]- 0335 Mar, [facility] [place] [facility] [address] [id number] [place] [address]- 7198 Jan, [facility] [place] [facility] [address] [id number] [place] [address]- 3793 Jan, [facility] [place] [facility] [address] [id number] [place] [address]- 5258 Jan, [facility] [place] [facility] [address] [id number] [place] [address]- 3364 Jan, [facility] [place] [facility] [address] [id number] [place] [address]- 9837 Jan, [facility] [place] [facility] [address] [id number] [place] [address]- 2810 Jan, [facility] [place] [facility] [address] [id number] [place] [address]- 9677 Oct, [facility] [place] [facility] [address] [id number] [place] [address]- 8435 Oct, [facility] [place] [facility] [address] [id number] [place] [address]- 4839 Sep, [facility] [place] [facility] [address] [id number] [place] [address]- 9764 Sep, [facility] [place] [facility] [address] [id number] [place] [address]- 7413 Jun, [facility] [place] [facility] [address] [id number] [place] [address]- 9639 Jun, [facility] [place] [facility] [address] [id number] [place] [address]- 3233 Mar, [facility] [place] [facility] [address] [id number] [place] [address]- 8259 Feb, [facility] [address] [id number] [place] [address]- 6245 Feb, [facility] [place] [facility] [address] [id number] [place] [address]- 3468 Nov, [facility] [place] [facility] [address] [id number] [place] [address]- 9704 Aug, [facility] [place] [facility] [address] [id number] [place] [address]- 5226 Aug, [facility] [place] [facility] [address] [id number] [place] [address]- 3432 Jul, [facility] [place] [facility] [address] [id number] [place] [address]- 3296 Jul, [facility] [place] [facility] [address] [id number] [place] [address]- 7291 May, [facility] [place] [facility] [address] [id number] [place] [address]- 0199 May, [facility] [place] [facility] [address] [id number] [place] [address]- 5573 May, [facility] [place] [facility] [address] [id number] [place] [address]- 0286 May, [facility] [place] [facility] [address] [id number] [place] [address]- 4113 Apr, [facility] [place] [facility] [address] [id number] [place] [address]- 2547 Feb, [facility] [place] [facility] [address] [id number] [place] [address]- 9899 Feb, [facility] [place] [facility] [address] [id number] [place] [address] 2546 Jan, [facility] [place] [facility] [address] [id number] [place] [address]- 6981 Jan, [facility] [id number] [address] 7699 Nov, [facility] [address] 6727 Oct, [facility] [address] [address]- 1206 Oct, [facility] [address] [place] [id number] [place] [address] 11850- 8655 Jul, [facility] [id number] [place] [address] 57370- 8464 May, [facility] [address] [place] [address] [id number] [place] [address] 99666- 0849 Nov, [facility] [id number] 0171 Jun, [facility] [address] [address]- 7010 December, [facility] [address] [id number] [address]- 3776 Jul, IMMUNIZATIONS No Known Immunizations SOCIAL HISTORY Never Assessed REASON FOR VISIT Clarification PLAN OF CARE VITAL SIGNS MEDICATIONS Unknown [...]
--- OUTSIDE RECORDS SUMMARY | 2018-08-07 08:51 | XMS REPORT ---
Author Author RONDA STAHL Organization [facility] Address [address] [place] [address] Care Team Providers Care General Internist Name Role Phone RONDA STAHL Unavailable PROBLEMS Type Condition ICD9-CM Code SRG21-WH Code Onset Dates Condition Status SNOMED Code Problem Hypertriglyceridemia E78.1 Active 082697953 Problem COPD exacerbation J44.1 Active 118750256 Problem Diabetes E11.9 Active 66017626 Problem Diabetes type 2, controlled E11.9 Active 23048227 Problem Other chronic pain G89.29 Active 06368875 Problem Panlobular emphysema J43.1 Active 9952046 Problem Uncontrolled type 2 diabetes mellitus with hyperglycemia E11.65 Active 702771685 Problem Type 2 diabetes mellitus without complication, without long-term current use of insulin E11.9 Active 767731744 Problem PTSD (post-traumatic stress disorder) F43.10 Active 30000040 Problem Gastroesophageal reflux disease with esophagitis K21.0 Active 854085881 ALLERGIES No Information ENCOUNTERS Encounter Location Date Diagnosis [place] [id number] [place] [address] 60628- 4473 Jul, [place] [address] [place] [id number] [place] [address] 15776- 8360 Jul, [place] [address] [place] [id number] [place] [address] 18243- 7398 Jun, PTSD (post-traumatic stress disorder) F43.10 [place] [address] [place] [id number] [place] [address] 47458- 2506 Jun, [place] [address] [place] [id number] [place] [address] 86541- 6730 Jun, PTSD (post-traumatic stress disorder) F43.10 [place] [address] 59093- 7004 Jun, [place] [address] [place] [id number] [place] [address] 30571- 6420 Jun, [place] [address] [place] [id number] [place] [address] 89716- 9689 Jun, Uncontrolled type 2 diabetes mellitus without complication, without long-term current use of insulin E11.65 [place] [address] 78030- 8608 Jun, PTSD (post-traumatic stress disorder) F43.10 ; Low back pain M54.5 ; Other chronic pain G89.29 ; Gastroesophageal reflux disease with esophagitis K21.0 and Panlobular emphysema J43.1 [place] [address] [place] [id number] [place] [address] 87238- 8291 Jun, [place] [address] 59939- 8560 Jun, Other chest pain R07.89 ; Tachycardia R00.0 and Murmur, cardiac R01.1 [place] [address] [place] [id number] [place] [address] 74965- 3574 May, Other chest pain R07.89 ; Tachycardia R00.0 and Murmur, cardiac R01.1 [facility] [address] [place] [address] [id number] [place] [address] 76753 -4743 May, [place] [address] [place] [id number] [place] [address] 61403- 4512 May, Uncontrolled type 2 diabetes mellitus with hyperglycemia E11.65 and Oral candidiasis B37.0 [place] [address] [place] [id number] [place] [address] 69266- 6052 May, COPD exacerbation J44.1 [place] [address] [place] [id number] [place] [address] 36725- 9589 May, COPD exacerbation J44.1 [facility] [address] [place] [id number] [place] [address] 70055 -4027 May, COPD exacerbation J44.1 and Type 2 diabetes mellitus without complication, without long-term current use of insulin E11.9 [facility] [id number] [place] [address] 84263 -9758 May, Difficulty breathing R06.89 and Acute bronchitis, unspecified organism J20.9 [facility] [address] [place] [id number] [place] [address] 17111- 3450 Apr, Uncontrolled type 2 diabetes mellitus without complication, without long-term current use of insulin E11.65 [facility] [address] [place] [address] [id number] [place] [address] 43729- 2431 Feb, [facility] [address] [place] [id number] [place] [address] 98767- 8034 Feb, [facility] [address] [place] [id number] [place] [address] 95334- 8644 Feb, [facility] [address] [place] [id number] [place] [address] 35722- 0177 Jan, [facility] [address] [place] [id number] [place] [address] 62902- 8300 Oct, [facility] [address] [place] [id number] [place] [address] 44923- 4570 Jul, Diabetes type 2, controlled E11.9 [facility] [id number] [place] [address] 71163- 1939 Jun, [facility] [address] [place] [id number] [place] [address] 06421- 0466 May, [facility] [address] [place] [id number] [place] [address] 83181- 4557 May, Diabetes type 2, controlled E11.9 and Hypertriglyceridemia E78.1 [facility] [address] [place] [id number] [place] [address] 51315- 8644 May, [facility] [address] [place] [id number] [place] [address] 42954- 0823 Apr, Hypertriglyceridemia 272.1 ; Influenza vaccine administered V04.81 and Diabetes 250.00 [facility] [address] [place] [id number] [place] [address] 810607- 0064 Mar, DM type 2 (diabetes mellitus, type 2) 250.00 ; Essential hypertension, benign 401.1 and Mood disorder 296.90 [facility] [address] [place] [id number] [place] [address] 75399- 6962 Jan, [facility] [address] [place] [id number] [place] [address] 67478- 3674 Nov, [facility] [address] [place] [id number] [place] [address] 30123- 7102 Nov, [facility] [address] [place] [id number] [place] [address] 51363- 5146 Sep, [facility] [address] [place] [id number] [place] [address] 11240- 5410 Sep, [facility] [address] [place] [id number] [place] [address] 83504- 9538 Sep, [facility] [id number] [place] [address] 47783- 8131 Sep, [facility] [id number] [place] [address] 76134- 3453 May, [facility] [id number] [place] [address] 07883- 4101 May, [facility] [id number] [place] [address] 86929- 8785 Apr, [facility] [id number] [place] [address] 752435- 1525 Apr, [facility] [id number] [place] [address] 87882- 8760 Mar, [facility] [id number] [place] [address] [id number]- 8001 Mar, [facility] [place] [facility] [address] [id number] [place] [address]- 8877 Mar, [facility] [place] [facility] [address] [id number] [place] [address]- 1840 Mar, [facility] [place] [facility] [address] [id number] [place] [address]- 1297 Jan, [facility] [place] [facility] [address] [id number] [place] [address]- 2778 Jan, [facility] [place] [facility] [address] [id number] [place] [address]- 1766 Jan, [facility] [place] [facility] [address] [id number] [place] [address]- 7302 Jan, [facility] [place] [facility] [address] [id number] [place] [address]- 3163 Jan, [facility] [place] [facility] [address] [id number] [place] [address]- 3723 Jan, [facility] [place] [facility] [address] [id number] [place] [address]- 6049 Oct, [facility] [place] [facility] [address] [id number] [place] [address]- 5507 Oct, [facility] [place] [facility] [address] [id number] [place] [address]- 5827 Sep, [facility] [place] [facility] [address] [id number] [place] [address]- 3986 Sep, [facility] [place] [facility] [address] [id number] [place] [address]- 0946 Jun, [facility] [place] [facility] [address] [id number] [place] [address]- 2041 Jun, [facility] [place] [facility] [address] [id number] [place] [address]- 9207 Mar, [facility] [place] [facility] [address] [id number] [place] [address]- 3402 Feb, [facility] [address] [id number] [place] [address]- 2283 Feb, [facility] [place] [facility] [address] [id number] [place] [address] Nov, [facility] [place] [facility] [address] [id number] [place] [address] Aug, [facility] [place] [facility] [address] [id number] [place] [address] Aug, [facility] [place] [facility] [address] [id number] [place] [address] Jul, [facility] [place] [facility] [address] [id number] [place] [address] Jul, [facility] [place] [facility] [address] [id number] [place] [address] May, [facility] [place] [facility] [address] [id number] [place] [address] May, [facility] [place] [facility] [address] [id number] [place] [address] May, [facility] [place] [facility] [address] [id number] [place] [address] May, [facility] [place] [facility] [address] [id number] [place] [address] Apr, [facility] [place] [facility] [address] [id number] [place] [address] Feb, [facility] [place] [facility] [address] [id number] [place] [address] Feb, [facility] [place] [facility] [address] [id number] [place] [address] Jan, [facility] [place] [facility] [address] [id number] [place] [address] Jan, [facility] [id number] [place] [address] Nov, [facility] [id number] [address] Oct, [facility] [id number], [place] [address] Oct, [facility] [id number] [place] [address] Jul, [facility] [id number], [place] [address] May, [facility] [id number] [place] [address] Nov, [facility] [id number] [address] Jun, [facility] [id number], [place] [address] December, [facility] [id number] [address] Jul, IMMUNIZATIONS No Known Immunizations SOCIAL HISTORY Never Assessed REASON FOR VISIT ROSITA Villegas PLAN OF CARE VITAL SIGNS MEDICATIONS Unknown [...]
[2018-08-07] MEDS ORDERED: FAMOTIDINE 20MG/2ML IV (PEPCID) IVP ONE (09:00)
[2018-08-07] MEDS ORDERED: PANTOPRAZOLE 40 MG (PROTONIX) VIAL IV ONE (09:00)
[2018-08-07 09:14] LABS: BASOPHILS % (AUTO) 0 % (0-10); EOSINOPHILS % (AUTO) 0 % (0-10); LYMPHOCYTES # (AUTO) 1.9 X 10^3 (1.0-4.0); LYMPHOCYTES % (AUTO) 15 % (12-44); MEAN CORPUSCULAR HEMOGLOBIN 30 PG (25-34); MEAN CORPUSCULAR HGB CONC 32 G/DL (32-36); MEAN CORPUSCULAR VOLUME 96 FL (80-99); MEAN PLATELET VOLUME 9.1 FL (7.4-10.4); MONOCYTES # (AUTO) 0.6 X 10^3 (0.0-1.0); MONOCYTES % (AUTO) 5 % (0-12); NEUTROPHILS # (AUTO) 9.7 X 10^3 (1.8-7.8); NEUTROPHILS % (AUTO) 80 % (42-75); PLATELET COUNT 471 10^3/uL (130-400); RED BLOOD COUNT 1.62 10^6/uL (4.35-5.85); RED CELL DISTRIBUTION WIDTH 15.7 % (10.0-14.5); WHITE BLOOD COUNT 12.2 10^3/uL (4.3-11.0)
[2018-08-07 09:26] LABS: HEMOGLOBIN 4.9 G/DL (13.3-17.7)
[2018-08-07 09:27] LABS: HEMATOCRIT 16 % (40-54)
[2018-08-07 09:28] LABS: INR 1.1 (0.8-1.4); PROTHROMBIN TIME PATIENT 14.3 SEC (12.2-14.7)
[2018-08-07 09:35] LABS: ALANINE AMINOTRANSFERASE 12 U/L (0-55); ALBUMIN 2.4 GM/DL (3.2-4.5); ALKALINE PHOSPHATASE 64 U/L (40-136); BILIRUBIN,TOTAL 0.2 MG/DL (0.1-1.0); BUN/CREATININE RATIO 27; CARBON DIOXIDE 23 MMOL/L (21-32); CHLORIDE 108 MMOL/L (98-107); CREATININE SERUM 0.86 MG/DL (0.60-1.30); GFR ESTIMATED > 60; GLUCOSE 206 MG/DL (70-105); POTASSIUM 3.7 MMOL/L (3.6-5.0); SODIUM 140 MMOL/L (135-145); TOTAL PROTEIN 4.2 GM/DL (6.4-8.2)
[2018-08-07] MEDS ORDERED: NS IV 1000 ML 1,000 ML ONE (09:55)
--- NOTE | 2018-08-07 09:58 | ED GI ---
General Chief Complaint: Abdominal/GI Problems Stated Complaint: DIARRHEA W BLOOD Nursing Triage Note: TO ED PER EMS FROM [facility] HX OF GI BLEED. LAST SEVERAL DAYS HAS BEEN HAVNG BLOOD IN STOOL LAB DONE YESTERDAY [facility] CALLED DR THAT HIS HGB WAS 6.8 YESTERDAY WAS TOLD TO SEND PATIENT TO ER THIS AM. LIFE VEST IN PLACE ON ADMIT. Sepsis Screen: No Definite Risk Source of Information: Patient Exam Limitations: No Limitations History of Present Illness Date Seen by Provider: Aug 07, 2018 Time Seen by Provider: 08:46 Initial Comments This 59-year-old gentleman presents to the emergency room with via EMS from the long-term complaints of bloody diarrhea, weakness, and pale skin. Blood pressure is been in the low 100s systolic. He has known GI bleed and has history of gastritis, duodenal ulcers, hiatal hernia, and reflux esophagitis. He has had endoscopy with Dr. Acharya multiple times. Patient also recently had a cardiac stent placed and is on Brilinta. Reportedly cardiology is very reluctant to stop her Brilinta because of the recent stent placement. Patient also has a history of atrial fibrillation which is observed on the monitor. Patient reports collapsing yesterday due to weakness. He injured his foot in the process. Complains of pain on the dorsal lateral aspect of the right foot. Patient has not had his medications yet this morning. Patient also has ischemic cardiomyopathy with heart failure and is presently wearing a LifeVest. Patient states history of atrial fibrillation and appears to be in atrial fibrillation on the monitor. However, I do not see documentation of atrial fibrillation in his chart. Allergies and Home Medications Allergies Coded Allergies: No Known Drug Allergies (Verified , 07/08/18) Home Medications Albuterol Sulfate 18 Gm Hfa.aer.ad, 2 PUFF INH Q4H PRN for SHORTNESS OF BREATH, (Reported) Alprazolam 0.5 Mg Tablet, 0.5 MG PO BID Prescribed by: GENNA DUMONT on 08/03/18 1227 Atorvastatin Calcium 80 Mg Tablet, 80 MG PO HS Prescribed by: GENNA DUMONT on 08/03/18 1227 Budesonide/Formoterol Fumarate 10.2 Gm Hfa.aer.ad, 2 PUFF INH BID, (Reported) Diphenhydramine HCl 25 Mg Capsule, 25 MG PO BID PRN for PANIC ATTACKS, (Reported ) Insulin Detemir 100 Unit/1 Ml Insuln.pen, 10 UNITS SC HS Prescribed by: GENNA DUMONT on 08/03/181226 Lisinopril 5 Mg Tablet, 5 MG PO DAILY Prescribed by: GENNA DUMONT on 08/03/181226 Metoprolol Succinate 25 Mg Tab.er.24h, 25 MG PO BID Prescribed by: GENNA DUMONT on 08/03/181226 Nystatin 100,000 Unit/1 Ml Oral.susp, 5 ML PO Q6HR Prescribed by: GENNA DUMONT on 08/03/18 122 Omeprazole 40 Mg Capsule.dr, 40 MG PO DAILY, (Reported) Paroxetine HCl 20 Mg Tablet, 10 MG PO BID, (Reported) TAKES 1/2 (10MG) TABLET Polyethylene Glycol 3350 17 Gm Powd.pack, 34 GM PO BID Prescribed by: GENNA DUMONT on 08/03/181226 Sennosides/Docusate Sodium 1 Each Tablet, 2 EA PO BID Prescribed by: GENNA DUMONT on 08/03/181226 Sucralfate 1 Gm Tablet, 1 GM PO ACHS Prescribed by: GENNA DUMONT on 08/03/181226 Ticagrelor 90 Mg Tablet, 90 MG PO BID Prescribed by: GENNA DUMONT on 08/03/181226 Tramadol HCl 50 Mg Tablet, 50 MG PO TID PRN for PAIN-MODERATE Prescribed by: GENNA DUMONT on 08/03/181226 Umeclidinium [place] 62.5 Mcg Blst.w.dev, 1 PUFF INH DAILY PRN for PANIC ATTACKS , (Reported) [Finasteride] 5 MG TAB, 5 MG PO DAILY Prescribed by: GENNA DUMONT on 08/03/181226 Patient Home Medication List Home Medication List Reviewed: Yes Review of Systems Review of Systems Constitutional: see HPI, weakness EENTM: No Symptoms Reported Respiratory: No Symptoms Reported Cardiovascular: No Symptoms Reported Gastrointestinal: See HPI Genitourinary: No Symptoms Reported Musculoskeletal: see HPI Skin: other (sacral decubitus ulcer) Psychiatric/Neurological: No Symptoms Reported Endocrine: No Symptoms Reported Hematologic/Lymphatic: See HPI Past Jfpbagd-Yafgpo-Jmpzeo Hx Past Med/Social Hx: Reviewed and Corrections made Patient Social History Alcohol Use: Denies Use Number of Drinks Today: AA Alcohol Beverage of Choice: Beer Recreational Drug Use: No Smoking Status: Former Smoker Type Used: Cigarettes Recent Foreign Travel: No Contact w/Someone Who Travel: No Recent Infectious Disease Expo: No Recent Hopitalizations: No Immunizations Up To Date Tetanus Booster (TDap): Unknown Date of Influenza Vaccine: May 24, 2018 Seasonal Allergies Seasonal Allergies: Yes Past Medical History Surgeries: Yes Abdominal (Multiple endoscopy procedures), Coronary Stent Respiratory: Yes Asthma, COPD Currently Using CPAP: No Currently Using BIPAP: No Cardiac: Yes Atrial Fibrillation, Cardiomyopathy (ischemic cardiomyopathy with failure), Hypertension Neurological: Yes Sexually Transmitted Disease: No HIV/AIDS: No Genitourinary: Yes Benign Prostatic Hyperpl, Kidney Infection, Prostate Problems Gastrointestinal: Yes (GI BLEED) Gastrointestinal Bleed, Irritable Bowel Musculoskeletal: Yes Back Injury Endocrine: Yes Diabetes, Insulin dep HEENT: Yes (Are likely dry eyes) Loss of Vision: Bilateral Hearing Impairment: Denies Cancer: No Psychosocial: Yes PTSD Integumentary: No Blood Disorders: No Adverse Reaction/Blood Tranf: No Family Medical History No Pertinent Family Hx Physical Exam Vital Signs Vital Signs - First Documented 08/07/18 08:45 Temp 97.4 Pulse 73 Resp 18 B/P (MAP) 99/46 (63) Pulse Ox 98 O2 Delivery Room Air Capillary Refill : Less Than 3 Seconds Height/Weight/BMI Height: 5'7.00" Weight: 135lbs. 4.0oz. 61.031624hb; 24.3 BMI Method:Stated General Appearance: WD/WN, no apparent distress HEENT: PERRL/EOMI, normal ENT inspection Neck: normal inspection Respiratory: lungs clear, normal breath sounds, no respiratory distress, no accessory muscle use, other (tachypnea) Cardiovascular: regular rate, rhythm, no edema, no murmur Gastrointestinal: normal bowel sounds, non tender, soft Extremities: normal inspection, other (and mild pedal edema. 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, no motor/sensory deficits, alert, normal mood/affect, oriented x 3 Skin: warm/dry, pallor, other (sacral decubitus ulcer) Progress/Results/Core Measures Results/Orders Lab Results Laboratory Tests Test 08/07/18 08:57 Range/Units White Blood Count 12.2 H 4.3-11.0 10^3/uL Red Blood Count 1.62 L 4.35-5.85 10^6/uL Hemoglobin 4.9 #*L 13.3-17.7 G/DL Hematocrit 16 *L 40-54 % Mean Corpuscular Volume 96 80-99 FL Mean Corpuscular Hemoglobin 30 25-34 PG Mean Corpuscular Hemoglobin Concent 32 32-36 G/DL Red Cell Distribution Width 15.7 H 10.0-14.5 % Platelet Count 471 H 130-400 10^3/uL Mean Platelet Volume 9.1 7.4-10.4 FL Neutrophils (%) (Auto) 80 H 42-75 % Lymphocytes (%) (Auto) 15 12-44 % Monocytes (%) (Auto) 5 0-12 % Eosinophils (%) (Auto) 0 0-10 % Basophils (%) (Auto) 0 0-10 % Neutrophils # (Auto) 9.7 H 1.8-7.8 X 10^3 Lymphocytes # (Auto) 1.9 1.0-4.0 X 10^3 Monocytes # (Auto) 0.6 0.0-1.0 X 10^3 Eosinophils # (Auto) 0.0 0.0-0.3 10^3/uL Basophils # (Auto) 0.0 0.0-0.1 10^3/uL Prothrombin Time 14.3 12.2-14.7 SEC INR Comment 1.1 0.8-1.4 Activated Partial Thromboplast Time 25 24-35 SEC Sodium Level 140 135-145 MMOL/L Potassium Level 3.7 3.6-5.0 MMOL/L Chloride Level 108 H 98-107 MMOL/L Carbon Dioxide Level 23 21-32 MMOL/L Anion Gap 9 5-14 MMOL/L Blood Urea Nitrogen 23 H 7-18 MG/DL Creatinine 0.86 0.60-1.30 MG/DL Estimat Glomerular Filtration Rate > 60 BUN/Creatinine Ratio 27 Glucose Level 206 H 70-105 MG/DL Calcium Level 8.0 L 8.5-10.1 MG/DL Corrected Calcium 9.3 8.5-10.1 MG/DL Magnesium Level 1.6 L 1.8-2.4 MG/DL Total Bilirubin 0.2 0.1-1.0 MG/DL Aspartate Amino Transf (AST/SGOT) 11 5-34 U/L Alanine Aminotransferase (ALT/SGPT) 12 0-55 U/L Alkaline Phosphatase 64 40-136 U/L Myoglobin 61.1 10.0-92.0 NG/ML Troponin I < 0.30 <0.30 NG/ML Total Protein 4.2 L 6.4-8.2 GM/DL Albumin 2.4 L 3.2-4.5 GM/DL My Orders Orders - DERIAN BOLAÑOS MD Cbc With Automated Diff (08/07/18 08:58) Comprehensive Metabolic Panel (08/07/18 08:58) Protime With Inr (08/07/18 08:58) Partial Thromboplastin Time (08/07/18 08:58) Saline Lock/Iv-Start (08/07/18 08:58) Fecal Occult Bedside (08/07/18 08:58) Pantoprazole Injection (Protonix Injecti (08/07/18 09:00) Famotidine Injection (Pepcid Injection) (08/07/18 09:00) Red Cells Leukocytes Reduced (08/07/18 08:58) Type And Screen (08/07/18 08:58) Ns Iv 1000 Ml (Sodium Chloride 0.9%) (08/07/18 09:55) Foot, Right, 3 View (08/07/18 10:00) Fentanyl Injection (Sublimaze Injection (08/07/18 10:45) Magnesium (08/07/18 10:44) Chest 1 View, Ap/Pa Only (08/07/18 10:44) Ekg Tracing (08/07/18 10:44) Cardiac Profile 1 (08/07/18 10:44) Myoglobin Serum (08/07/18 10:44) O2 (08/07/18 10:44) Monitor-Rhythm Ecg Trace Only (08/07/18 10:44) Medications Given in ED Current Medications Medications Dose Ordered Sig/Maryjo Route Start Time Stop Time Status Last Admin Dose Admin Famotidine 20 mg ONCE ONCE IVP 08/07/18 09:00 08/07/18 09:02 DC 08/07/18 09:15 20 MG Fentanyl Citrate 25 mcg ONCE ONCE IVP 08/07/18 10:45 08/07/18 10:46 DC 08/07/18 10:46 25 MCG Pantoprazole 80 mg ONCE ONCE IV 08/07/18 09:00 08/07/18 09:02 DC 08/07/18 09:16 80 MG Vital Signs/I&O 08/07/18 08/07/18 08:45 11:48 Temp 97.4 Pulse 73 75 Resp 18 18 B/P (MAP) 99/46 (63) 115/86 (96) Pulse Ox 98 99 O2 Delivery Room Air Room Air Blood Pressure Mean: 63 Fecal Occult: Positive Progress Progress Note #1: Time: 09:57 Progress Note Patient was found to be profoundly anemic with hemoglobin of 4.9. I'm requesting 2 units of red blood cells to be administered along with 2 units remaining to hold. Protonix 80 mg and Pepcid 20 mg have been given for GI therapy. I have discussed the case with Dr. Acharya. He is very familiar with this patient and has performed multiple endoscopy procedures. At this point he is recommending IR therapy. Patient really needs to be on antiplatelet therapy because of recent cardiac stent placement. However, no therapies aren't able to be performed at this facility endoscopically to correct his bleed. I will start making phone calls to refer patient for iron therapy. In the meantime, we will proceed with transfusion. Patient also reports having right foot pain related to his fall yesterday. We will x-ray the right foot. Sacral decubitus ulcer is being cleaned and dressed Progress Note #2: Time: 10:35 Progress Note Foot x-ray was unremarkable. Blood is now infusing. Fentanyl 25 g will be given for foot pain. Case was discussed with Dr. Kim, hospitalist at [facility] , at 10:20. He accepts transfer of this patient. Progress Note #3: Time: 10:48 Progress Note Patient is now complaining of a sharp chest pain which is new at this time. He is now receiving the fentanyl mentioned above. EKG is being obtained along with troponin. Progress Note #4: Time: 11:34 Progress Note Patient states his pain has improved. The first unit of blood has infused. The second unit is being started now. EMS has been dispatched for transfer. Initial ECG Impression Date: Aug 07, 2018 Initial ECG Impression Time: 10:52 Initial ECG Rate: 74 Initial ECG Rhythm: Normal Sinus Comment Patient appears to be in sinus rhythm at this time. There is no overt ST elevation or depression. There is a nonspecific T-wave change noted by the automated read. No abnormal intervals or axis deviation. Diagnostic Imaging Diagonstic Imaging: Xray Comments Right foot x-ray viewed by me and report reviewed. See report below: NAME: SWATI LEONARD [facility] REC#: [id number] PT STATUS: [facility] ER : 1950 PHYSICIAN: DERIAN BOLAÑOS MD ADMIT DATE: 08/07/18/ER Signed Date of Exam: 08/07/18 FOOT, RIGHT, 3 VIEW INDICATION: Right-sided foot pain and swelling after fall last night. COMPARISON: None. DISCUSSION: No acute fracture, dislocation, or other osseous abnormality identified. No significant degenerative disease. Alignment is anatomic. Soft tissues are unremarkable. No radiopaque foreign body. IMPRESSION: 1. Negative right foot. Dictated by: Dictated on workstation # [id number] Dict: 08/07/18 1015 Trans: 08/07/18 1603 Interpreted by: NEAL LUCIA MD Electronically signed by: NEAL LUCIA MD 08/07/18 1603 Diagonstic Imaging: Xray Plain Films/CT/US/NM/MRI: chest Comments Chest x-ray viewed by me and report reviewed. See report below: NAME: SWATI LEONARD [facility] REC#: [id number] PT STATUS: [facility] ER : 1950 PHYSICIAN: DERIAN BOLAÑOS MD ADMIT DATE: 08/07/18/ER Signed Date of Exam: 08/07/18 CHEST 1 VIEW, AP/PA ONLY INDICATION: Dyspnea, GI bleed. COMPARISON: 07/20/2018. DISCUSSION: Single portable upright view of the chest was obtained. Extensive overlying medical devices are again noted. Stable normal heart size. No focal consolidation, pleural fluid, or pneumothorax. No osseous abnormality. IMPRESSION: 1. No acute cardiopulmonary process. Dictated by: Dictated on workstation # [id number] Dict: 08/07/18 1126 Trans: 08/07/18 1603 Interpreted by: NEAL LUCIA MD Electronically signed by: NEAL LUCIA MD 08/07/18 1603 Departure Impression Primary Impression: GI bleed Qualified Codes: K92.2 - Gastrointestinal hemorrhage, unspecified Additional Impressions: Severe anemia Coronary artery disease Qualified Codes: I25.10 - Atherosclerotic heart disease of [place] coronary artery without angina pectoris Decubitus ulcer of sacral region, stage 2 Fall on same level Qualified Codes: W18.30XA - Fall on same level, unspecified, initial encounter Right foot pain Chest pain Qualified Codes: R07.9 - Chest pain, unspecified Disposition: 02 XFER SHT-TRM HOSP Condition: Stable Transfer Time Spoke to Accepting Phy: 10:20 Transfer Progress Notes Transfer excepted by Dr. Kim at [facility] in [place] Transfer Time: 11:51 Transfer Facility: [facility] Method of Transfer: EMS Departure-Patient Inst. Referrals: [facility] (PCP/Family) Primary Care Physician DERIAN BOLAÑOS MD Aug 07, 2018 09:58
--- NOTE | 2018-08-07 10:18 | Diagnostic Imaging Report ---
INDICATION: Right-sided foot pain and swelling after fall last night. COMPARISON: None. DISCUSSION: No acute fracture, dislocation, or other osseous abnormality identified. No significant degenerative disease. Alignment is anatomic. Soft tissues are unremarkable. No radiopaque foreign body. IMPRESSION: 1. Negative right foot. Dictated by: Dictated on workstation # [id number]
[2018-08-07] MEDS ORDERED: fentaNYL INJECTION 100 MCG/2 ML AMP IVP ONE (10:45)
[2018-08-07 11:07] LABS: MAGNESIUM 1.6 MG/DL (1.8-2.4)
[2018-08-07 11:21] LABS: MYOGLOBIN SERUM 61.1 NG/ML (10.0-92.0)
--- NOTE | 2018-08-07 11:29 | Diagnostic Imaging Report ---
INDICATION: Dyspnea, GI bleed. COMPARISON: 07/20/2018. DISCUSSION: Single portable upright view of the chest was obtained. Extensive overlying medical devices are again noted. Stable normal heart size. No focal consolidation, pleural fluid, or pneumothorax. No osseous abnormality. IMPRESSION: 1. No acute cardiopulmonary process. Dictated by: Dictated on workstation # [id number]
[2018-08-07 11:48] VITALS: BP 115/86
== END 2018-08-07 11:51 | disposition short-term general hospital (02) ==
LOC: EDUNIT# 08:45 → ER 08:46
DX: M79.671 Pain in right foot (principal); K92.2 Gastrointestinal hemorrhage, unspecified; D64.9 Anemia, unspecified; I25.10 Atherosclerotic heart disease of native coronary artery without angina pectoris; R07.9 Chest pain, unspecified; L89.152 Pressure ulcer of sacral region, stage 2; J44.9 Chronic obstructive pulmonary disease, unspecified; I10 Essential (primary) hypertension; I48.91 Unspecified atrial fibrillation; I25.5 Ischemic cardiomyopathy; E11.9 Type 2 diabetes mellitus without complications; F43.10 Post-traumatic stress disorder, unspecified; Z87.19 Personal history of other diseases of the digestive system; Z87.448 Personal history of other diseases of urinary system; Z79.51 Long term (current) use of inhaled steroids; Z79.4 Long term (current) use of insulin; Z87.891 Personal history of nicotine dependence; W18.30XA Fall on same level, unspecified, initial encounter
CPT/HCPCS: 36415; 36430; 71045; 73630; 80053; 83735; 83874; 84484; 85025; 85610; 85730; 86850; 86900; 86901; 86920; 93005; 93041; 99291

== ENCOUNTER → 2018-12-01 | Outpatient (CLI) | payer MEDICARE, MEDICAID ==
[~2018-12-01] MED LIST changes: +HYDR-700 PO; +LORA0.5T PO; +MIRT30TA6 PO; +PANT40TA3 PO; +PARO37.510 PO; +PRAS10TA10 PO; +RT-ALBUINH INH
== END ==
LOC: CARD 11:37
PROVIDERS: ATTEND Internal Medicine Interventional Cardiology
DX: I25.10 Atherosclerotic heart disease of native coronary artery without angina pectoris (principal); E78.5 Hyperlipidemia, unspecified; I10 Essential (primary) hypertension; I25.5 Ischemic cardiomyopathy; I73.9 Peripheral vascular disease, unspecified
CPT/HCPCS: 93306

== ENCOUNTER 2018-12-02 08:06 | Day surgery (SDC) | payer MEDICARE, MEDICAID ==
[2018-12-02] VITALS (12 sets, daily range): BP systolic 137–169; BP diastolic 77–91
[~2018-12-02] VITALS: Ht 170.2 cm; Wt 81.2 kg
[~2018-12-02 08:06] MED LIST changes: -HYDR-700 PO; -LORA0.5T PO; -MIRT30TA6 PO; -PANT40TA3 PO; -PARO37.510 PO; -PRAS10TA10 PO; -RT-ALBUINH INH
--- OUTSIDE RECORDS SUMMARY | 2018-12-02 08:11 | XMS REPORT ---
Author Author Migration, Doctor Organization [facility] Address Unknown Phone Unavailable Care Team Providers Care Executive Secretary Name Role Phone Migration, Doctor Unavailable Unavailable PROBLEMS Type Condition ICD9-CM Code RPI14-UI Code Onset Dates Condition Status SNOMED Code Problem Hypertriglyceridemia E78.1 Active 701366788 Problem Diabetes type 2, controlled E11.9 Active 67376627 Problem Other chronic pain G89.29 Active 28603475 Problem Panlobular emphysema J43.1 Active 0452172 Problem Gastroesophageal reflux disease with esophagitis K21.0 Active 312671861 Problem Afib I48.91 Active 84289169 Problem COPD exacerbation J44.1 Active 569581661 Problem Hypertensive heart disease with heart failure I11.0 Active 35271571 Problem Diabetes E11.9 Active 48522846 Problem PTSD (post-traumatic stress disorder) F43.10 Active 95533840 Problem PVD (peripheral vascular disease) I73.9 Active 590883834 Problem Uncontrolled type 2 diabetes mellitus with hyperglycemia E11.65 Active 214327352 Problem Foot drop, right M21.371 Active [id number] ALLERGIES No Information ENCOUNTERS Encounter Location Date Diagnosis [place] [id number] [place] [address] 45175- 8473 December, [place] [address] [place] [id number] [place] [address] 95731- 0647 Nov, Diabetes type 2, controlled E11.9 ; Hypertriglyceridemia E78.1 ; COPD exacerbation J44.1 ; PTSD (post-traumatic stress disorder) F43.10 ; Other chronic pain G89.29 ; Gastroesophageal reflux disease with esophagitis K21.0 ; PVD (peripheral vascular disease) I73.9 and Hypertensive heart disease with heart failure I11.0 [place] [address] [place] [id number] [place] [address] 05793- 7395 Oct, PTSD (post-traumatic stress disorder) F43.10 [place] [address] [place] [address] [id number] [address] Sep, Diabetes type 2, controlled E11.9 and PTSD (post-traumatic stress disorder) F43.10 [place] [id number] [place] [address] 63246- 7890 Sep, [place] [address] [place] [id number] [place] [address] 30761- 0388 Sep, PTSD (post-traumatic stress disorder) F43.10 [place] [address] [address] 9[address] Sep, [place] [address] [place] [id number] [place] [address] 17276- 3797 Aug, COPD exacerbation J44.1 ; Difficulty breathing R06.89 ; History of GI bleed Z87.19 ; PVD (peripheral vascular disease) I73.9 and Uncontrolled type 2 diabetes mellitus with hyperglycemia E11.65 [place] [id number] [place] [address] 39886- 1233 Aug, [place] [id number] [place] [address] 74043- 6474 Aug, PTSD (post-traumatic stress disorder) F43.10 and Type 2 diabetes mellitus without complication, without long-term current use of insulin E11.9 [facility] [employer] [facility] [address] [id number] Aug, History of GI bleed Z87.19 ; COPD exacerbation J44.1 and PVD (peripheral vascular disease) I73.9 [place] [address] [place] [id number] [address] Aug, [facility] [employer] [address] [id number] Aug, Diabetes E11.9 ; Other chronic pain G89.29 and Panlobular emphysema J43.[address] [address] Jul, [place] [address] [place] [id number] [place] [address] 88519- 5451 14 Jun, 2018 PTSD (post-traumatic stress disorder) F43.10 [facility] [address] [place] [id number] [place] [address] 68181- 9521 14 Jun, 2018 [facility] [address] [place] [id number] [place] [address] 97859- 2968 Jun, PTSD (post-traumatic stress disorder) F43.10 [facility] [address] [place] [id number] [place] [address] 10171- 2599 12 Jun, 2018 [place] [address] [place] [id number] [place] [address] 28704- 6154 Jun, [place] [address] [place] [id number] [place] [address] 69028- 3405 Jun, Uncontrolled type 2 diabetes mellitus without complication, without long-term current use of insulin E11.65 [place] [address] [place] [id number] [place] [address] 75666- 0606 07 Jun, 2018 PTSD (post-traumatic stress disorder) F43.10 ; Low back pain M54.5 ; Other chronic pain G89.29 ; Gastroesophageal reflux disease with esophagitis K21.0 and Panlobular emphysema J43.1 [place] [address] [place] [id number] [place] [address] 37833- 9694 Jun, [facility] [address] [place] [id number] [place] [address] 36482- 0330 Jun, Other chest pain R07.89 ; Tachycardia R00.0 and Murmur, cardiac R01.1 [facility] [address] [place] [id number] [place] [address] 51245- 1060 May, Other chest pain R07.89 ; Tachycardia R00.0 and Murmur, cardiac R01.1 [facility] [address] [place] [address] [id number] [place] [address] 31986 -8699 May, [facility] [address] [place] [id number] [place] [address] 70762- 0336 May, Uncontrolled type 2 diabetes mellitus with hyperglycemia E11.65 and Oral candidiasis B37.0 [place] [address] [place] [id number] [place] [address] 04457- 8015 May, COPD exacerbation J44.1 [facility] [address] [place] [id number] [place] [address] 97015- 6271 May, COPD exacerbation J44.1 [facility] [address] [place] [id number] [place] [address] 50479 -5125 May, COPD exacerbation J44.1 and Type 2 diabetes mellitus without complication, without long-term current use of insulin E11.9 [facility] [address] [place] [address] [id number] [place] [address] 50179 -0994 May, Difficulty breathing R06.89 and Acute bronchitis, unspecified organism J20.9 [place] [address] [place] [id number] [place] [address] 20789- 3282 Apr, Uncontrolled type 2 diabetes mellitus without complication, without long-term current use of insulin E11.65 [place] [address] [place] [id number] [place] [address] 20228- 0438 Feb, [place] [address] [place] [id number] [place] [address] 37929- 3372 Feb, [place] [address] [place] [id number] [place] [address] 88130- 7706 Feb, [facility] [address] [place] [id number] [place] [address] 21992- 3579 Jan, [place] [address] [place] [id number] [place] [address] 30247- 9684 Oct, [place] [address] [place] [id number] [place] [address] 18716- 7786 Jul, Diabetes type 2, controlled E11.9 [facility] [address] [place] [id number] [place] [address] 23511- 3507 Jun, [facility] [address] [place] [address] [id number] [place] [address] 46549- 7676 May, [facility] [address] [place] [id number] [place] [address] 46033- 0037 May, Diabetes type 2, controlled E11.9 and Hypertriglyceridemia E78.1 [facility] [address] 80101- 5818 May, [facility] [address] 36998- 3787 Apr, Hypertriglyceridemia 272.1 ; Influenza vaccine administered V04.81 and Diabetes 250.00 [facility] [address] 96703- 2381 Mar, DM type 2 (diabetes mellitus, type 2) 250.00 ; Essential hypertension, benign 401.1 and Mood disorder 296.90 [facility] [address] [place] [id number] [place] [address] 51931- 6376 Jan, [facility] [address] [place] [id number] [place] [address] 84095- 4789 Nov, [facility] [address] [place] [id number] [place] [address] 12497- 7691 Nov, [facility] [address] [place] [id number] [place] [address] 79241- 3631 Sep, [facility] [address] [place] [id number] [place] [address] 58085- 6448 Sep, [facility] [address] [place] [id number] [place] [address] 55558- 9271 Sep, [facility] [address] [place] [id number] [place] [address] 91735- 8011 Sep, [facility] [address] [place] [id number] [place] [address] 04745- 4443 May, [facility] [address] [place] [id number] [place] [address] 67427- 0297 May, [facility] [place] [facility] [address] [id number] [place] [address]- 3213 Apr, [facility] [place] [facility] [address] [id number] [place] [address]- 0887 Apr, [facility] [place] [facility] [address] [id number] [place] [address]- 9259 Mar, [facility] [place] [facility] [address] [id number] [place] [address]- 7002 Mar, [facility] [place] [facility] [address] [id number] [place] [address]- 0226 Mar, [facility] [place] [facility] [address] [id number] [place] [address]- 0156 Mar, [facility] [place] [facility] [address] [id number] [place] [address]- 6019 Jan, [facility] [place] [facility] [address] [id number] [place] [address]- 7232 Jan, [facility] [place] [facility] [address] [id number] [place] [address]- 1905 Jan, [facility] [place] [facility] [address] [id number] [place] [address]- 0628 Jan, [facility] [place] [facility] [address] [id number] [place] [address]- 9231 Jan, [facility] [place] [facility] [address] [id number] [place] [address]- 0708 Jan, [facility] [place] [facility] [address] [id number] [place] [address]- 2244 Oct, [facility] [place] [facility] [address] [id number] [place] [address]- 2582 Oct, [facility] [place] [facility] [address] [id number] [place] [address]- 6003 Sep, [facility] [place] [facility] [address] [id number] [place] [address]- 2546 Sep, [facility] [address] [id number] [place] [address]- 7636 Jun, [facility] [place] [facility] [address] [id number] [place] [address]- 2546 Jun, [facility] [address] [id number] [place] [address]- 2546 Mar, [facility] [place] [facility] [address] [id number] [place] [address]- 2546 Feb, [facility] [address] [id number] [place] [address]- 2546 Feb, [facility] [place] [facility] [address] [id number] [place] [address]- 7776 Nov, [facility] [address] [id number] [place] [address]- 2026 Aug, [facility] [address] [id number] [place] [address]- 9930 Aug, [facility] [address] [id number] [place] [address]- 2746 Jul, [facility] [address] [id number] [place] [address]- 2546 Jul, [facility] [place] [facility] [address] [id number] [place] [address]- 2546 May, [facility] [place] [facility] [address] [id number] [place] [address]- 2546 May, [facility] [place] [facility] [address] [id number] [place] [address]- 2546 May, [facility] [place] [facility] [address] [id number] [place] [address]- 2546 May, [facility] [place] [facility] [address] [id number] [place] [address] 2546 Apr, [facility] [address] [facility] [id number], [place] [address]- 3230 Feb, [facility] [address] [facility] [id number], [place] [address]- 3076 Feb, [facility] [address] [facility] [id number], [place] [address]- 6746 Jan, [facility] [address] [facility] [id number], [place] [address]- 8422 Jan, [facility] [address] [facility] [id number], [place] [address]- 1787 Nov, [facility] [address] [facility] [id number], [place] [address]- 6767 Oct, [facility] [address] [place] [address]- 5338 Oct, [facility] [address] [place] [address]- 4816 Jul, [facility] [address] [place] [id number] [address]- 5870 May, [facility] [address], [place] [address]- 4476 Nov, [facility] [id number] [address]- 5366 Jun, [facility] [id number] [address]- 3519 December, [facility] [address] [id number] [address]130 Jul, IMMUNIZATIONS No Known Immunizations SOCIAL HISTORY Never Assessed [place]AS[place] [place] VITAL SIGNS MEDICATIONS Medication Instructions Dosage Frequency Start Date End Date Duration Status metoprolol 100 mg 1 tablet by Oral route 2 times per day Jan, Active Naproxen 500 mg take 1 tablet (500 mg) by oral route 2 times per day with food Jan, Active Amoxicillin 500 mg 2 capsule by Oral route 2 times per day for 10 day(s) Aug, Active Norvasc 10 mg take 1 tablet (10 mg) by oral route once daily Apr, Active metformin 500 mg 2 tablet by Oral route 1 time per day Mar, Active Lisinopril-Hydrochlorothiazide 20-25 mg take 2 tablets by oral route once daily Take in AM Jan, Active Omeprazole Magnesium 20 mg 40 mg 1 tab daily Sep, Active Loratadine 10 mg 1 tablet by Oral route 1 time per day Sep, Active RESULTS No Results PROCEDURES No Known procedures INSTRUCTIONS MEDICATIONS ADMINISTERED No Known Medications MEDICAL (GENERAL) HISTORY Type Description Date Medical History hypertension Medical History diabetes type 2 Medical History PTSD Medical History IBS Medical History Back pain Medical History Type 2 diabetes mellitus without complication, without long- term current use of insulin Medical History Uncontrolled type 2 diabetes mellitus with hyperglycemia Medical History Hay Fever Surgical History 2 stints placed 2018 Hospitalization History rectal and vomitting blood 2018
--- OUTSIDE RECORDS SUMMARY | 2018-12-02 08:11 | XMS REPORT ---
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 Name Role Phone RONDA STAHL Unavailable PROBLEMS Type Condition ICD9-CM Code YUX20-YD Code Onset Dates Condition Status SNOMED Code Problem Hypertriglyceridemia E78.1 Active 496193132 Problem COPD exacerbation J44.1 Active 558216382 Problem Diabetes E11.9 Active 20053703 Problem Diabetes type 2, controlled E11.9 Active 13266740 Problem Other chronic pain G89.29 Active 86806683 Problem Panlobular emphysema J43.1 Active 2397186 Problem Uncontrolled type 2 diabetes mellitus with hyperglycemia E11.65 Active 828520761 Problem Type 2 diabetes mellitus without complication, without long-term current use of insulin E11.9 Active 321916862 Problem PTSD (post-traumatic stress disorder) F43.10 Active 44897546 Problem Gastroesophageal reflux disease with esophagitis K21.0 Active 031277097 ALLERGIES No Information ENCOUNTERS Encounter Location Date Diagnosis [facility] [id number] [place] [address] 44464- 8706 Jul, [facility] [address] 93911- 9531 Jun, PTSD (post-traumatic stress disorder) F43.10 [facility] [id number] [place] [address] 25848- 8328 14 Jun, 2018 [facility] [address] 64734- 8615 Jun, PTSD (post-traumatic stress disorder) F43.10 [facility] [id number] [place] [address] 31288- 2624 Jun, [facility] [address] 39704- 3658 Jun, [facility] [id number] [place] [address] 25497- 9949 Jun, Uncontrolled type 2 diabetes mellitus without complication, without long-term current use of insulin E11.65 [facility] [id number] [place] [address] 17214- 2301 Jun, PTSD (post-traumatic stress disorder) F43.10 ; Low back pain M54.5 ; Other chronic pain G89.29 ; Gastroesophageal reflux disease with esophagitis K21.0 and Panlobular emphysema J43.1 [facility] [facility] [id number] [place] [address] 78284- 8073 Jun, [facility] [id number] [place] [address] 16194- 8110 Jun, Other chest pain R07.89 ; Tachycardia R00.0 and Murmur, cardiac R01.1 [facility] [id number] [place] [address] 59048- 6641 May, Other chest pain R07.89 ; Tachycardia R00.0 and Murmur, cardiac R01.1 [facility] [id number] [place] [address] 23914 -0374 May, [facility] [facility] [id number] [place] [address] 85854- 7266 May, Uncontrolled type 2 diabetes mellitus with hyperglycemia E11.65 and Oral candidiasis B37.0 [facility] [id number] [place] [address] 19116- 1412 May, COPD exacerbation J44.1 [facility] [id number] [place] [address] 54412- 9475 May, COPD exacerbation J44.1 [facility] [id number] [place] [address] 42337 -3841 May, COPD exacerbation J44.1 and Type 2 diabetes mellitus without complication, without long-term current use of insulin E11.9 [facility] [address] [address] May, Difficulty breathing R06.89 and Acute bronchitis, unspecified organism J20.9 [facility] [address] [address]- 1868 Apr, Uncontrolled type 2 diabetes mellitus without complication, without long-term current use of insulin E11.65 [facility] [id number] [place] [address] 46765- 2609 Feb, [facility] [id number] [place] [address] 65134- 8200 Feb, [facility] [id number] [place] [address] 99412- 7812 Feb, [facility] [id number] [place] [address] 13463- 0253 Jan, [facility] [id number] [place] [address] 24898- 0951 Oct, [facility] [id number] [place] [address] 51452- 9032 Jul, Diabetes type 2, controlled E11.9 [facility] [address] [address]- 9055 Jun, [facility] [id number] [place] [address] 91751- 3086 May, [facility] [id number] [place] [address] 87899- 2282 May, Diabetes type 2, controlled E11.9 and Hypertriglyceridemia E78.1 [facility] [id number] [place] [address] 98898- 2417 May, [facility] [id number] [place] [address] 51575- 6766 Apr, Hypertriglyceridemia 272.1 ; Influenza vaccine administered V04.81 and Diabetes 250.00 [facility] [address] [address] Mar, DM type 2 (diabetes mellitus, type 2) 250.00 ; Essential hypertension, benign 401.1 and Mood disorder 296.90 [facility] [address] [place] [address]- 5904 Jan, [facility] [id number] [place] [address], [place] [address]- 0264 Nov, [facility] [id number] [place] [address], [place] [address]- 5853 Nov, [facility] [id number] [place] [address], [place] [address]- 4822 Sep, [facility] [id number] [place] [address]- 8102 Sep, [facility] [id number] [place] [address], [place] [address]- 5615 Sep, [facility] [address] [place] [address]- 0861 Sep, [facility] [address] [place] [address]- 0640 May, [facility] [address] [place] [address]- 1914 May, [facility] [address] [place] [address]- 8616 Apr, [facility] [id number] [place] [address]- 2548 Apr, [facility] [id number] 6608 Mar, [facility] [address] [place] [address]- 7534 Mar, [facility] [address] 3162 Mar, [facility] [place] [facility] [address] [id number] [place] [address]- 6068 Mar, [facility] [place] [facility] [address] [id number] [place] [address]- 1388 Jan, [facility] [place] [facility] [address] [id number] [place] [address]- 0491 Jan, [facility] [place] [facility] [address] [id number] [place] [address]- 2273 Jan, [facility] [place] [facility] [address] [id number] [place] [address]- 9187 Jan, [facility] [place] [facility] [address] [id number] [place] [address]- 9959 Jan, [facility] [place] [facility] [address] [id number] [place] [address]- 8180 Jan, [facility] [place] [facility] [address] [id number] [place] [address]- 2289 Oct, [facility] [place] [facility] [address] [id number] [place] [address]- 0351 Oct, [facility] [place] [facility] [address] [id number] [place] [address]- 5604 Sep, [facility] [place] [facility] [address] [id number] [place] [address]- 9910 Sep, [facility] [place] [facility] [address] [id number] [place] [address]- 0044 Jun, [facility] [place] [facility] [address] [id number] [place] [address]- 8110 Jun, [facility] [place] [facility] [address] [id number] [place] [address]- 4320 Mar, [facility] [place] [facility] [address] [id number] [place] [address]- 6186 Feb, [facility] [place] [facility] [address] [id number] [place] [address] 2544 Feb, [facility] [address] [id number] [place] [address]- 3807 Nov, [facility] [place] [facility] [address] [id number] [place] [address]- 2921 Aug, [facility] [place] [facility] [address] [id number] [place] [address]- 9191 Aug, [facility] [place] [facility] [address] [id number] [place] [address]- 7942 Jul, [facility] [place] [facility] [address] [id number] [place] [address]- 4217 Jul, [facility] [place] [facility] [address] [id number] [place] [address]- 2117 May, [facility] [place] [facility] [address] [id number] [place] [address]- 7134 May, [facility] [place] [facility] [address] [id number] [place] [address]- 6547 May, [facility] [place] [facility] [address] [id number] [place] [address]- 2273 May, [facility] [place] [facility] [address] [facility] [id number] [place] [address]- 9225 Apr, [facility] [place] [facility] [address] [id number] [place] [address]- 7484 Feb, [facility] [place] [facility] [address] [id number] [place] [address]- 254 Feb, [facility] [place] [facility] [address] [id number] [place] [address]- 2846 Jan, [facility] [place] [facility] [address] [id number] [place] [address]- 9906 Jan, [facility] [place] [facility] [address] [id number] [place] [address]- 4370 Nov, [facility] [address] [address] 5713 Oct, [facility] [address], [place] [address]- 8410 Oct, [facility] [address], [place] [address]- 3348 Jul, [facility] [id number] [place] [address] 524416- 4099 May, [facility] [address], [place] [address]- 2717 Nov, [facility] [address], [place] [address]- 6967 Jun, [facility] [address], [place] [address]- 2360 December, [facility] [address], [place] [address]- 1881 Jul, IMMUNIZATIONS No Known Immunizations SOCIAL HISTORY Never Assessed REASON FOR VISIT ROSITA Paredes/ PLAN OF CARE VITAL SIGNS MEDICATIONS Unknown [...]
--- OUTSIDE RECORDS SUMMARY | 2018-12-02 08:11 | XMS REPORT ---
Author Author ROXANNE JEREZ [facility] Address [address] [place] [address] Care Team Providers Care Volleyball Commentator Name Role Phone ROXANNE JEREZ Unavailable PROBLEMS Type Condition ICD9-CM Code JYC82-HG Code Onset Dates Condition Status SNOMED Code Problem Hypertriglyceridemia E78.1 Active 368940137 Problem COPD exacerbation J44.1 Active 636015792 Problem Diabetes E11.9 Active 98028126 Problem Diabetes type 2, controlled E11.9 Active 93828445 Problem Other chronic pain G89.29 Active 83268484 Problem Panlobular emphysema J43.1 Active 3266730 Problem Uncontrolled type 2 diabetes mellitus with hyperglycemia E11.65 Active 703084455 Problem Type 2 diabetes mellitus without complication, without long-term current use of insulin E11.9 Active 133484741 Problem PTSD (post-traumatic stress disorder) F43.10 Active 87211071 Problem Gastroesophageal reflux disease with esophagitis K21.0 Active 691893411 ALLERGIES No Information ENCOUNTERS Encounter Location Date Diagnosis [facility] [id number] [place] [address] 18630- 6831 Jul, [place] [id number] [place] [address] 44121- 3664 Jun, PTSD (post-traumatic stress disorder) F43.10 [facility] [id number] [place] [address] 67868- 0805 Jun, [facility] [address] 61834- 6276 Jun, PTSD (post-traumatic stress disorder) F43.10 [facility] [id number] [place] [address] 39782- 0097 Jun, [facility] [address] [place] [address]- 9229 Jun, [place] [facility] [id number] [place] [address] 67196- 3459 Jun, Uncontrolled type 2 diabetes mellitus without complication, without long-term current use of insulin E11.65 [place] [facility] [id number] [place] [address] 93369- 3124 Jun, PTSD (post-traumatic stress disorder) F43.10 ; Low back pain M54.5 ; Other chronic pain G89.29 ; Gastroesophageal reflux disease with esophagitis K21.0 and Panlobular emphysema J43.1 [place] [facility] [address] 90157- 7797 Jun, [place] [id number] [place] [address] 47672- 4838 Jun, Other chest pain R07.89 ; Tachycardia R00.0 and Murmur, cardiac R01.1 [place] [facility] [id number] [place] [address] 19901- 4503 May, Other chest pain R07.89 ; Tachycardia R00.0 and Murmur, cardiac R01.1 [facility] [id number] [place] [address] 64391 -7506 May, [place] [id number] [place] [address] 92434- 7493 May, Uncontrolled type 2 diabetes mellitus with hyperglycemia E11.65 and Oral candidiasis B37.0 [place] [id number] [place] [address] 69557- 6298 May, COPD exacerbation J44.1 [place] [id number] [place] [address] 32290- 5029 May, COPD exacerbation J44.1 [facility] [id number] [place] [address] 00324 -9814 May, COPD exacerbation J44.1 and Type 2 diabetes mellitus without complication, without long-term current use of insulin E11.9 [facility] [address], [place] [address] -5986 May, Difficulty breathing R06.89 and Acute bronchitis, unspecified organism J20.9 [facility] [id number] [address]- 0729 Apr, Uncontrolled type 2 diabetes mellitus without complication, without long-term current use of insulin E11.65 [facility] [id number] [place] [address] 66492- 8261 Feb, [facility] [id number] [place] [address] 31242- 7737 Feb, [facility] [id number] [place] [address] 72389- 2457 Feb, [facility] [id number] [place] [address] 81776- 0634 Jan, [facility] [id number] [place] [address] 70646- 0911 Oct, [facility] [id number] [place] [address] 09566- 5520 Jul, Diabetes type 2, controlled E11.9 [facility] [id number] [place] [address] 75562- 7150 Jun, [facility] [id number] [place] [address] 40464- 9379 May, [facility] [id number] [place] [address] 36694- 5882 May, Diabetes type 2, controlled E11.9 and Hypertriglyceridemia E78.1 [facility] [id number] [place] [address] 27368- 5147 May, [facility] [id number] [place] [address] 12108- 1808 Apr, Hypertriglyceridemia 272.1 ; Influenza vaccine administered V04.81 and Diabetes 250.00 [facility] [address], [place] [address]- 7601 Mar, DM type 2 (diabetes mellitus, type 2) 250.00 ; Essential hypertension, benign 401.1 and Mood disorder 296.90 [facility] [address] [facility] [id number] [place] [address]- 7442 Jan, [facility] [id number] [place] [address], [place] [address]- 6978 Nov, [facility] [address] [facility] [id number] [place] [address], [place] [address]- 6564 Nov, [facility] [id number] [place] [address], [place] [address]- 7508 Sep, [facility] [id number] [place] [address], [place] [address]- 7566 Sep, [facility] [id number] [place] [address], [place] [address]- 3706 Sep, [facility] [address] [address]- 4220 Sep, [facility] [id number] [place] [address] 10051- 1759 May, [facility] [address] [address]- 2499 May, [facility] [address], [place] [address]- 3855 Apr, [facility] [id number] [address]- 0543 Apr, [facility] [id number] [place] [address], [place] [address]- 9163 Mar, [facility] [address], [place] [address]- 3822 Mar, [facility] [id number] [place] [address] 21803- 3607 Mar, [facility] [place] [facility] [address] [id number] [place] [address]- 9932 Mar, [facility] [place] [facility] [address] [id number] [place] [address]- 2948 Jan, [facility] [place] [facility] [address] [id number] [place] [address]- 3764 Jan, [facility] [place] [facility] [address] [id number] [place] [address]- 7245 Jan, [facility] [place] [facility] [address] [id number] [place] [address]- 3548 Jan, [facility] [place] [facility] [address] [id number] [place] [address]- 0449 Jan, [facility] [place] [facility] [address] [id number] [place] [address]- 0297 Jan, [facility] [place] [facility] [address] [id number] [place] [address]- 3428 Oct, [facility] [place] [facility] [address] [id number] [place] [address]- 8391 Oct, [facility] [place] [facility] [address] [id number] [place] [address]- 8022 Sep, [facility] [place] [facility] [address] [id number] [place] [address]- 3338 Sep, [facility] [place] [facility] [address] [id number] [place] [address]- 8697 Jun, [facility] [place] [facility] [address] [id number] [place] [address]- 0998 Jun, [facility] [place] [facility] [address] [id number] [place] [address]- 9425 Mar, [facility] [place] [facility] [address] [id number] [place] [address]- 4025 Feb, [facility] [place] [facility] [address] [id number] [place] [address]- 2546 Feb, [facility] [place] [facility] [address] [id number] [place] [address]- 2228 Nov, [facility] [place] [facility] [address] [id number] [place] [address]- 2546 Aug, [facility] [place] [facility] [address] [id number] [place] [address]- 6093 Aug, [facility] [place] [facility] [address] [id number] [place] [address]- 3878 Jul, [facility] [place] [facility] [address] [id number] [place] [address]- 1682 Jul, [facility] [place] [facility] [address] [id number] [place] [address]- 7573 May, [facility] [place] [facility] [address] [id number] [place] [address]- 6242 May, [facility] [place] [facility] [address] [id number] [place] [address]- 9989 May, [facility] [place] [facility] [address] [id number] [place] [address]- 0284 May, [facility] [place] [facility] [address] [id number] [place] [address]- 5727 Apr, [facility] [place] [facility] [address] [id number] [place] [address]- 1537 Feb, [facility] [place] [facility] [address] [id number] [place] [address]- 2540 Feb, [facility] [place] [facility] [address] [id number] [place] [address]- 5997 Jan, [facility] [place] [facility] [address] [id number] [place] [address]- 2546 Jan, [facility] [place] [facility] [address] [id number] [place] [address]- 0745 Nov, [facility] [address], [place] [address]- 0388 Oct, [facility] [address], [place] [address]- 9410 Oct, [facility] [address], [place] [address]- 7768 Jul, [facility] [id number] [place] [address] 35255- 3110 May, [facility] [address], [place] [address]- 9713 Nov, [facility] [address], [place] [address]- 2303 Jun, [facility] [address], [place] [address]- 3599 December, [facility] [address], [place] [address]- 7306 Jul, IMMUNIZATIONS No Known Immunizations SOCIAL HISTORY Never Assessed REASON FOR VISIT senior living PLAN OF CARE VITAL SIGNS MEDICATIONS Unknown [...]
[2018-12-02] MEDS ORDERED: HEParin 1000 UNIT/ML (10ML VIAL) FOR BOLUS ONE ×2 (08:14→11:57)
[2018-12-02] MEDS ORDERED: LIDOCAINE 1% INJ 20 ML 20 ML VIAL ONE (08:15)
[2018-12-02] MEDS ORDERED: NS IV 1000 ML 3,000 ML ONE (08:15)
[2018-12-02] MEDS ORDERED: NS IV 1000 ML 1,000 ML IV SCH ×2 (08:22→12:58)
[2018-12-02] MEDS: NS IV 1000 ML 1,000 ML IV SCH ×3 (08:45→18:15)
[2018-12-02 08:49] LABS: HEMOGLOBIN 12.1 G/DL (13.3-17.7); MEAN PLATELET VOLUME 9.7 FL (7.4-10.4); RED CELL DISTRIBUTION WIDTH 17.2 % (10.0-14.5)
[2018-12-02 09:08] LABS: PROTHROMBIN TIME PATIENT 13.2 SEC (12.2-14.7)
[2018-12-02 09:13] LABS: ALBUMIN 4.2 GM/DL (3.2-4.5); BILIRUBIN,TOTAL 0.5 MG/DL (0.1-1.0); CALCIUM 9.2 MG/DL (8.5-10.1); CREATININE SERUM 1.43 MG/DL (0.60-1.30); POTASSIUM 3.7 MMOL/L (3.6-5.0); TOTAL PROTEIN 7.2 GM/DL (6.4-8.2)
[2018-12-02] MEDS ORDERED: fentaNYL INJECTION 100 MCG/2 ML AMP ONE ×3 (09:40→16:23)
[2018-12-02] MEDS ORDERED: MIDAZOLAM 5 MG/5 ML (VERSED) VIAL ONE (09:40)
[2018-12-02] MEDS ORDERED: MIRT30TA6 PO (10:06)
[2018-12-02] MEDS ORDERED: PARO37.510 PO (10:10)
[2018-12-02] MEDS ORDERED: PRAS10TA10 PO (10:11)
[2018-12-02] MEDS ORDERED: PANT40TA3 PO (10:12)
[2018-12-02] MEDS ORDERED: FINA5TAB6 PO (10:12)
[2018-12-02] MEDS ORDERED: HYDR-700 PO (10:13)
[2018-12-02] MEDS ORDERED: RT-ALBUINH INH (10:14)
--- NOTE | 2018-12-02 10:14 | NUR ---
Spoke to patient he did not know what he took no list or bottles. He stated he filles his medications at the [facility]. I received a recently filled fax and took him medication from there.
[2018-12-02] MEDS ORDERED: NS IV 1000 ML 1,000 ML ONE ×2 (10:41→11:25)
[2018-12-02] MEDS ORDERED: CLOPIDOGREL 75 MG (PLAVIX) TABLET ONE (10:52)
[2018-12-02] MEDS ORDERED: MIDAZOLAM 2 MG/2 ML (VERSED) VIAL ONE (11:25)
--- NOTE | 2018-12-02 12:58 | Coronary Angiography & PCI ---
Peripheral Angio & Interv DATE OF SERVICE: 12/02/18 Peripheral Angiography and Intervention Report PERFORMING INTERVENTIONALIST: Dr. Kusum Chandra INDICATION: Right critical limb ischemia. PREOPERATIVE INDICATION: Right critical limb ischemia. POSTOPERATIVE DIAGNOSIS: Successful arthrectomy/stenting of the right superficial femoral artery. HISTORY: This is a 68-year-old gentleman with known history of CAD with PCI to the LAD with drug-eluting stent in June 2018. He has history of non-STEMI severe PAD with critical limb ischemia right worse than the left. He also has history of GI bleeding which was resolved. He was scheduled for peripheral angiography and possible intervention. PROCEDURE PERFORMED: 1. Abdominal aortogram with bilateral lower extremity runoff. 2. Rotational arthrectomy to right SFA. 3. PORTFOLIO MANAGER to right TRAFFIC OBSERVER of SFA. 4. Stenting to the right SFA. SPECIMENS: None. ANESTHESIA: Conscious sedation. BLOOD LOSS: 20 mL. COMPLICATIONS: None. CONTRAST USED: 123 ml. FLUOROSCOPY DOSE: 234 Mgy. FLUOROSCOPY TIME: 32 minutes. ANTICOAGULATION: IV heparin DESCRIPTION OF PROCEDURE: The patient was brought to the superintendent geophysical laboratory after informed consent was taken. All the risks and complications were explained in detail. The patient was draped and prepped in the usual sterile fashion. Access was gained in the left femoral artery with a 7 Equ[place]inean sheath. We advanced a pigtail catheter on top of a J- wire and placed into the mid abdominal aorta and performed an abdominal aortogram and bilateral lower extremity runoff. We tried to do a crossover with the pigtail catheter but were not able to. We therefore switched to a rim catheter to perform a crossover. The tip of the Storq wire was placed in the deep femoral artery on the right and the rim catheter was taken out. We exchanged the sheath to a 7 Equ[place]inean by 45 cm sheath. Further intervention was done through the 7 [place] long sheath. FINDINGS: Mild abdominal aortic disease. Nonselective angiogram of the renal arteries bilaterally shows no significant disease. At least moderate to severe disease in the bilateral common iliac artery. Totally occluded right SFA with reconstitution in the distal SFA with patent popliteal artery and 2 vessel runoff below the knee with an excellent posterior tibial artery and a reasonable deep peroneal artery. Totally occluded left SFA with reconstitution in the distal SFA with patent popliteal artery and 2 was central runoff below the knee with majority of flow coming through a posterior tibial artery. RECOMMENDATIONS: Intervention to the right SFA is recommended. INTERVENTIONAL DETAILS: IV heparin was given. ACT was 221 seconds. We placed the tip of the long 7 [place]ine[place] sheath in the distal right external iliac artery. We then went in with the command 0.018 long taper as well as an angled taper catheter. With difficulty we were able to cross the entire length of the chronic total occlusion with the catheter and wire. The tip of the wire was placed in the popliteal artery and the angled tapered catheter was placed after advancing into the popliteal artery. The wire was taken out and contrast injection through the angled tapered catheter showed that we were intraluminal. We then exchanged the wire for a 0.0 14 wire that works with the [employer] rotational arthrectomy system. We then placed an EmbAppurify distal protection system. Rotational arthrectomy was done with a 7 [place] 2.4/3.4 system with blades down. 2 runs were done. Revascularization was noted. The entire length of the occlusion was treated with PORTFOLIO MANAGER with a 5.0 x 200 mm balloon at 12 and 14 holly respectively. We then placed 2 Supera 5.0 x 120 mm stents in the distal and mid SFA with overlap and an absolute pro 6.0x 100 mm self expanding stent in the proximal SFA with excellent results. The filter was retrieved and wire taken out with excellent post results. Manual compression of the left femoral artery. CONCLUSION: Successful right SFA TRAFFIC OBSERVER revascularization with arthrectomy and stenting. Staged left SFA TRAFFIC OBSERVER revascularization is recommended. Staged possible bilateral common iliac artery stenting in the future. IV fluids overnight. Continue dual antiplatelet therapy. Kusum Chandra MD, FACP, FACC, [facility] Vascular Medicine and Endovascular Interventions Jose CHANDRA MD Dec 02, 2018 12:58
[2018-12-02] MEDS ORDERED: PATIENT MAY USE OWN MEDS, ALL PO SCH (13:00)
--- NOTE | 2018-12-02 13:02 | Cardiac Procedure Note-CS/ASA ---
Pre-Procedure Note Pre-Op Procedure Note H&P Reviewed The H&P was reviewed, patient examined and no changes noted. Date H&P Reviewed: Dec 02, 2018 Time H&P Reviewed: 09:50 Conscious Sedation Pre-Proced Time 09:50 ASA Score 3 For ASA 3 and 4: Consider anesthesia and medical clearance. Also, for patients with a history of failed moderate sedation consider anesthesia. Airway Lungs Heart ASA score ASA 1: a normal healthy patient ASA 2: a patient with a mild systemic disease (mid diabetes, controlled hypertension, obesity ASA 3: a patient with a severe systemic disease that limits activity (angina , COPD, prior Myocardial infarction) ASA 4: a patient with an incapacitating disease that is a constant threat to life (CHF, renal failure) ASA 5: a moribund patient not expected to survive 24 hrs. (ruptured aneurysm) ASA 6: a declared brain- patient whose organs are being harvested. For emergent operations, add the letter E after the classification Mallampati Classification Grade 1 Sedation Plan Analgesia, Amnesia, Plan communicated to team members, Discussed options with patient/fam, Discussed risks with patient/fam The patient is an appropriate candidate to undergo the planned procedure, sedation, and anesthesia. The patient immediately re-assessed prior to indication. Jose GRAY MD Dec 02, 2018 13:02
[2018-12-02] MEDS ORDERED: ATROPINE INJECTION 1 MG/10 ML SYR (ABBOTT) ONE (16:24)
[2018-12-02] MEDS ORDERED: LORA0.5T PO (17:56)
[2018-12-02] MEDS ORDERED: LORazepam 0.5 MG (ATIVAN) TABLET PO SCH (18:00)
[2018-12-02] MEDS ORDERED: LORazepam 0.5 MG (ATIVAN) TABLET ONE (18:06)
[2018-12-02] MEDS: SUCRALFATE 1 GM (CARAFATE) TAB PO SCH (18:09)
[2018-12-02] MEDS ORDERED: LORazepam 0.5 MG (ATIVAN) TABLET PO PRN (19:30)
[2018-12-02] MEDS ORDERED: ATORVASTATIN 80 MG (LIPITOR) TABLET PO SCH (21:00)
[2018-12-02] MEDS ORDERED: NON-FORMULARY MEDICATION 1 EA EA (Mirtazapine 30 MG) PO SCH (21:00)
[2018-12-02] MEDS ORDERED: MIRTAZAPINE 15 MG (REMERON) TAB PO SCH (21:00)
[2018-12-02] MEDS ORDERED: NON-FORMULARY MEDICATION 1 EA EA (Insulin Detemir (Levemir Flextouch) 10 UNITS) SC SCH (21:00)
[2018-12-02] MEDS: PANTOPRAZOLE 40 MG (PROTONIX) TAB PO SCH (21:24)
[2018-12-03 00:11] VITALS: BP 162/91
--- NOTE | 2018-12-03 02:00 | NUR ---
Patient states he is having an anxiety attack. Requests oxygen at 4L and a fan, as this helps him when he has panic attacks. Oxygen placed on patient and fan turned on in room. Patient states starting to feel better. Requests nothing else at this time. Will continue to monitor.
[2018-12-03] MEDS: NS IV 1000 ML 1,000 ML IV SCH (02:03)
[2018-12-03 03:47] LABS: MEAN PLATELET VOLUME 9.6 FL (7.4-10.4); RED CELL DISTRIBUTION WIDTH 17.2 % (10.0-14.5); WHITE BLOOD COUNT 11.5 10^3/uL (4.3-11.0)
[2018-12-03 04:03] VITALS: BP 168/79
[2018-12-03 04:07] LABS: CALCIUM 8.8 MG/DL (8.5-10.1); CREATININE SERUM 1.39 MG/DL (0.60-1.30); POTASSIUM 4.4 MMOL/L (3.6-5.0)
[2018-12-03] MEDS: SUCRALFATE 1 GM (CARAFATE) TAB PO SCH (06:24)
[2018-12-03 08:00] VITALS: BP 154/81
[2018-12-03] MEDS: PANTOPRAZOLE 40 MG (PROTONIX) TAB PO SCH (08:04)
[2018-12-03] MEDS ORDERED: PRASUGREL 10 MG (EFFIENT) TABLET PO SCH (09:00)
[2018-12-03] MEDS ORDERED: hydrOXYzine (VISTARIL) 25 MG capsule/tablet PO SCH (09:00)
[2018-12-03] MEDS ORDERED: FINASTERIDE (PROSCAR) 5 MG TAB PO SCH (09:00)
[2018-12-03] MEDS ORDERED: PRASUGREL HCL 10 MG PO SCH (09:00)
--- NOTE | 2018-12-03 10:14 | Cardiology Discharge Summary ---
Diagnosis/Chief Complaint Date of Admission 12/02/2018 Date of Discharge 12/03/2018 Admission Diagnosis Severe lifestyle limiting claudication, possible critical limb ischemia Final/Discharge Diagnosis Successful right SFA revascularization Chief Complaint/HPI Chief Complaint/HPI This is a 68-year-old gentleman with known history of CAD with PCI to the LAD with drug-eluting stent in June 2018. He has history of non-STEMI severe PAD with critical limb ischemia right worse than the left. He also has history of GI bleeding which was resolved. He was scheduled for peripheral angiography and possible intervention. Discharge Summary Procedures Peripheral angiography showed long occlusion from the ostium of right SFA with reconstitution in the distal SFA. Arthrectomy, PRESSURE WELDER and stenting done successfully with excellent results. Discharge Physical Examination Normal left groin examination. Normal cardiovascular examination. Normal chest examination. Hospital Course Was the Problem List Reviewed?: Yes IV fluids were given overnight since the patient's creatinine was 1.4. This morning patient's creatinine is 1.39, therefore no change. I've noticed a little bit of heavy breathing, however oxygen saturation is 99 percent. I have requested the RN to ambulate the patient without oxygen. We will give a dose of Lasix 20 mg IV times one if oxygen saturation on ambulation is 92 percent or lower. Pending Labs Laboratory Tests 12/03/18 03:20: White Blood Count 11.5, Red Blood Count 4.58, Hemoglobin 11.0, Hematocrit 36, Mean Corpuscular Volume 78, Mean Corpuscular Hemoglobin 24, Mean Corpuscular Hemoglobin Concent 31, Red Cell Distribution Width 17.2, Platelet Count 269, Mean Platelet Volume 9.6, Sodium Level 137, Potassium Level 4.4, Chloride Level 106, Carbon Dioxide Level 19, Anion Gap 12, Blood Urea Nitrogen 15, Creatinine 1.39, Estimat Glomerular Filtration Rate 51, BUN/Creatinine Ratio 11, Glucose Level 268, Calcium Level 8.8 Discussion & Recommendations Discussion Discharge instructions were discussed at length with the patient. Discharge took over 30 minutes to complete. Patient will continue prasugrel. Patient will be scheduled for left lower extremity revascularization in the near future. Follow up appt.: Dr. Chandra in 3-4 weeks. Dicharge Diet: Cardiac Diet Activity as Tolerated: Yes Home Medications Reviewed patient Home Medication Reconciliation performed by pharmacy medication reconciliations target aircraft technician and/or nursing. Patients Allergies have been reviewed. Discharge Home Medications: Reviewed and agree with Discharge Medication list on patient's Discharge Instruction sheet Condition at discharge Stable. Instructions to patient/family Discussed at length with the patient and family. Clinical Quality Measures DVT/VTE Risk/Contraindication: Risk Factor Score Per Nursin RFS Level Per Nursing on Admit: 4+=Very High Jose CHANDRA MD Dec 03, 2018 10:14
--- NOTE | 2018-12-03 10:16 | Discharge Inst-Post CATH ---
Discharge Inst-CATH/EP Post Cardiac Cath/EP D/C Inst Follow Up/Plan Left lower extremity revascularization in the near future. Follow-up Dr. Chandra in for one month. CARDIAC CATH DISCHARGE INSTRUCTIONS *Hold Metformin for 48 hours post heart cath. ACTIVITY * Go Home directly and rest. * Limit activity of the leg (or wrist if it was used) for 7 days including aerobics, swimming, jogging, bicycling, etc. * Restrict stair-climbing for 7 days if possible, if not, climb up with your non -cath leg, then bring together on the same step. * Avoid lifting, pushing, pulling or excessive movement of the affected extremity for 7 days. * Customary sexual activity may be resumed after 2 days-use caution not to use a position that strains or causes pain to the affected extremity. * No driving for 24 hours. * NO SMOKING. * Avoid straining for bowel movements for 7 days. * Gentle walking on level ground is allowed. * Returning to work will depend on the type of procedure and the results. Your doctor will discuss this with you. CALL YOUR DOCTOR FOR ANY OF THE FOLLOWING: *If bleeding from the puncture site occurs- Apply gentle pressure to site with clean cloth and call your doctor or EMS. * If a knot or lump forms under the skin, increases in size, or causes pain. * If bruising appears to be worsening or moving further down your leg instead of disappearing. * Temperature above 101 F. CARE OF YOUR GROIN INCISION; * Bruising or purple discoloration of the skin near the puncture site is common. * You may shower only, no bathtub bathing for 5 days. Be careful to avoid slipping as your leg may feel stiff. * If a closure device was used on your femoral artery, please see the attached guide regarding care of the device and your leg. * Leave the dressing on, until removed by office staff. CARE OF YOUR WRIST INCISION; * Bruising or purple discoloration of the skin near the puncture site is common. * You may shower. * DO NOT submerge wrist. * Leave dressing on, until removed by office staff.. Jose CHANDRA MD Dec 03, 2018 10:16
--- NOTE | 2018-12-03 10:40 | NUR ---
SWATI LEONARD Rahsi demonstrates understanding of discharge instructions and accurately returns instructions upon questioning. Copy of Post-Discharge Instructions and Medication Discharge Instructions given to patient. SWATI LEONARD Rashi is able to manage continuing needs after discharge. Patients belongings returned to patient and family at discharge. Skin dry and intact; no breakdown noted. RT performed oxygen status walk on ICU floor prior to patient discharge. Pt O2 saturation remained greater than 91% during walk. No lasix given. Patient discharged from ICU on 12/03/18 at 1058am . SWATI LEONARD left floor via wheelchair, accompanied by Cecille, RN and VANNA Almazan. Pt's son transported pt in personal car to home.
[2018-12-03] MEDS ORDERED: PARoxetine 20 MG (PAXIL) TAB PO SCH (21:00)
== END 2018-12-03 10:58 | disposition home or self-care (01) ==
LOC: CATH 08:06 → ICU 13:05 → CATH 12-03 10:58
PROVIDERS: ATTEND Internal Medicine Interventional Cardiology
DX: I70.213 Atherosclerosis of native arteries of extremities with intermittent claudication, bilateral legs (principal); I70.92 Chronic total occlusion of artery of the extremities; I70.0 Atherosclerosis of aorta; I11.0 Hypertensive heart disease with heart failure; I50.20 Unspecified systolic (congestive) heart failure; I25.10 Atherosclerotic heart disease of native coronary artery without angina pectoris; I25.5 Ischemic cardiomyopathy; E11.9 Type 2 diabetes mellitus without complications; E78.5 Hyperlipidemia, unspecified; I35.1 Nonrheumatic aortic (valve) insufficiency; F17.210 Nicotine dependence, cigarettes, uncomplicated; I25.2 Old myocardial infarction; Z95.5 Presence of coronary angioplasty implant and graft; Z79.4 Long term (current) use of insulin; Z79.899 Other long term (current) drug therapy
CPT/HCPCS: 36415; 75630; 80048; 80053; 80061; 82962; 85027; 85347; 85610; 85730; 87081

== ENCOUNTER 2018-12-09 10:09 | Day surgery (SDC) | payer MEDICARE, MEDICAID ==
[~2018-12-09] VITALS: Ht 170.2 cm; Wt 81.2 kg
[2018-12-09] VITALS (13 sets, daily range): BP systolic 137–193; BP diastolic 71–100
[~2018-12-09 10:09] MED LIST changes: +HYDR-700 PO; +LORA0.5T PO; +MIRT30TA6 PO; +PANT40TA3 PO; +PARO37.510 PO; +PRAS10TA10 PO; +RT-ALBUINH INH
[2018-12-09] MEDS ORDERED: LIDOCAINE 1% INJ 20 ML 20 ML VIAL ONE (10:15)
[2018-12-09] MEDS ORDERED: NS IV 1000 ML 1,000 ML IV SCH (10:15)
[2018-12-09] MEDS ORDERED: NS IV 1000 ML 3,000 ML ONE (10:15)
[2018-12-09] MEDS ORDERED: HEParin 1000 UNIT/ML (10ML VIAL) FOR BOLUS ONE ×2 (10:15→15:05)
[2018-12-09 10:52] LABS: MEAN PLATELET VOLUME 9.7 FL (7.4-10.4); RED CELL DISTRIBUTION WIDTH 17.3 % (10.0-14.5); WHITE BLOOD COUNT 8.5 10^3/uL (4.3-11.0)
[2018-12-09] MEDS ORDERED: ACET-2267 PO (11:09)
[2018-12-09] MEDS ORDERED: POLY17PO6 PO (11:09)
[2018-12-09] MEDS ORDERED: METO-387 PO (11:09)
[2018-12-09] MEDS ORDERED: LISI2.5T PO (11:09)
[2018-12-09] MEDS ORDERED: INSU100I29 SQ (11:09)
[2018-12-09] MEDS ORDERED: BUDE10.2 IH (11:09)
[2018-12-09] MEDS ORDERED: PRAZ1CAP2 PO (11:09)
[2018-12-09] MEDS ORDERED: RT-ALBUINH INH (11:09)
[2018-12-09] MEDS ORDERED: SUCR1TAB36 PO (11:09)
[2018-12-09] MEDS ORDERED: DIPH25TA65 PO (11:09)
[2018-12-09] MEDS ORDERED: ATOR80TA76 PO (11:09)
[2018-12-09] MEDS ORDERED: [UNRECOGNIZED DRUG - CODE] PO (11:09)
[2018-12-09] MEDS ORDERED: MELA1TAB35 PO (11:09)
[2018-12-09] MEDS ORDERED: TRAM50TA2 PO (11:09)
[2018-12-09] MEDS ORDERED: BISA5TAB8 PO (11:09)
[2018-12-09 11:10] LABS: PROTHROMBIN TIME PATIENT 13.8 SEC (12.2-14.7)
--- NOTE | 2018-12-09 11:16 | NUR ---
SPOKE WITH THE PATIENT ABOUT HIS MEDICATIONS. HE BROUGHT IN ALL OF HIS BOTTLES AND WE WENT OVER THEM WELL THE LIST FROM THE OFFICE. THE LIST FROM THE OFFICE HAS BRILINTA HOWEVER HE HAS NOT FILLED IT AT [facility] AND HE DOES NOT HAVE IT IN HIS BAG. HE THINKS IT WAS CHANGED WHEN HE WENT TO [place]. I DID NOT INCLUDE IT ON THE MED REC AT THIS TIME.
[2018-12-09 11:17] LABS: ALBUMIN 4.2 GM/DL (3.2-4.5); BILIRUBIN,TOTAL 0.5 MG/DL (0.1-1.0); CALCIUM 9.3 MG/DL (8.5-10.1); CREATININE SERUM 1.43 MG/DL (0.60-1.30); POTASSIUM 3.7 MMOL/L (3.6-5.0); TOTAL PROTEIN 7.3 GM/DL (6.4-8.2)
[2018-12-09] MEDS ORDERED: fentaNYL INJECTION 100 MCG/2 ML AMP ONE ×2 (13:21→14:29)
[2018-12-09] MEDS ORDERED: MIDAZOLAM 5 MG/5 ML (VERSED) VIAL ONE ×2 (13:21→14:29)
[2018-12-09] MEDS ORDERED: NS IV 1000 ML 1,000 ML ONE (14:29)
[2018-12-09] MEDS ORDERED: NITRO DRIP 25000 MCG/D5W 250 ML IV ONE (15:45)
--- NOTE | 2018-12-09 15:57 | Coronary Angiography & PCI ---
Peripheral Angio & Interv DATE OF SERVICE: 12/09/18 PRIMARY PHYSICIAN: [facility] PERFORMING INTERVENTIONALIST: Dr. Kusum hCandra INDICATION: Severe Lifestyle limiting claudication. PREOPERATIVE INDICATION: Severe lifestyle limiting claudication. POSTOPERATIVE DIAGNOSIS: Successful revascularization of the left SFA. HISTORY: This is a 68-year-old gentleman with history of CAD, status post PCI. He also has severe lifestyle limiting claudication and had peripheral angiography last week which showed severe bilateral occlusive SFA disease. We performed successful arthrectomy, balloon angioplasty and stenting of the right SFA last week. He is scheduled for intervention to left SFA today. PROCEDURE PERFORMED: 1. Left SFA arthrectomy, balloon angioplasty and stenting. SPECIMENS: None. ANESTHESIA: Conscious sedation. BLOOD LOSS: 20 mL. COMPLICATIONS: None. CONTRAST USED: 58 ml. FLUOROSCOPY DOSE: 47 Mgy. FLUOROSCOPY TIME: 25.6 minutes. ANTICOAGULATION: IV heparin DESCRIPTION OF PROCEDURE: The patient was brought to the slab polisher after informed consent was taken. All the risks and complications were explained in detail. The patient was draped and prepped in the usual sterile fashion. Access was gained in the right femoral artery with a 7 Martiniquais sheath. We first tried to perform crossover with the rim catheter but were not able to. Crossover was performed with a UF catheter and a Glidewire. The tip of the glide wire was placed in the profunda artery and the UF catheter was advanced till the STRATEGY ANALYST. The wire was taken out and we advanced with a stork wire. The UF catheter and the short 7 Martiniquais sheath was taken out and then we placed a long 7 Martiniquais by 45 cm sheath. The tip of the sheath was placed in the distal left external iliac artery. Selective angiogram was performed. FINDINGS: Severe left ostial SFA stenosis. Diffuse severe disease in the midsegment. Total occlusion in the distal SFA with reconstitution in the popliteal artery. Three-vessel runoff distally, however the best runoff is of a posterior tibial artery that supplies the foot as well. RECOMMENDATIONS: Intervention to the left SFA is recommended. INTERVENTIONAL DETAILS: We took a command 0.018 wire and a Navicross catheter and crossed the occlusion in the left distal SFA. The tip of the wire was placed in the left distal popliteal artery. The tip of the Navicross was advanced to the popliteal artery. We confirmed intraluminal position. The command wire was taken out and we put a bare wire workhorse 0.014 guidewire. The Navicross was taken out and Embo Shield filter was placed in the distal popliteal artery. We then used a Discourse XC 2.4/3.4 atherectomy system with "blade in" and performed arthrectomy from the ostium of the left SFA till the proximal popliteal artery. We then performed another athrectomy run with "blade out" in the mid/distal SFA. Another run was done in the proximal SFA with "blade out". The jetstream arthrectomy system was taken out and post-angiogram showed recanalization of the artery. We then took a electro mechanical designer 5.0 x 200 x 1 35 balloon and performed balloon angioplasty in the entire length of the SFA twice at 18 holly for 3 minutes. Good results were noted. We then took a in over 5 x 1 50 stent and deployed it in the distal SFA, followed by an over 6 x 1 50 stent in the mid and proximal SFA followed by an over 6 x 20 stent in the ostium of the SFA. 400 g of nitroglycerin was given. Post-angiogram showed excellent results with brisk flow to the foot. We noted a significant gradient across the left common iliac artery during pullback. This may be addressed at a later date. Right STRATEGY ANALYST was closed with the Mynx device. Patient tolerated the procedure well and did not have any complication. CONCLUSION: Successful revascularization of an occluded left SFA with arthrectomy and stenting. 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 Aggressive IV fluids. BUN and creatinine in the a.m. Continue dual antiplatelet therapy. Kusum Chandra MD, FACP, FACC, [facility] Vascular Medicine and Endovascular Interventions Jose CHANDRA MD Dec 09, 2018 15:57
--- NOTE | 2018-12-09 15:57 | Cardiac Procedure Note-CS/ASA ---
Pre-Procedure Note Pre-Op Procedure Note H&P Reviewed The H&P was reviewed, patient examined and no changes noted. Date H&P Reviewed: Dec 09, 2018 Time H&P Reviewed: 13:00 Conscious Sedation Pre-Proced Time 13:00 ASA Score 3 For ASA 3 and 4: Consider anesthesia and medical clearance. Also, for patients with a history of failed moderate sedation consider anesthesia. Airway Lungs Heart ASA score ASA 1: a normal healthy patient ASA 2: a patient with a mild systemic disease (mid diabetes, controlled hypertension, obesity ASA 3: a patient with a severe systemic disease that limits activity (angina , COPD, prior Myocardial infarction) ASA 4: a patient with an incapacitating disease that is a constant threat to life (CHF, renal failure) ASA 5: a moribund patient not expected to survive 24 hrs. (ruptured aneurysm) ASA 6: a declared brain- patient whose organs are being harvested. For emergent operations, add the letter E after the classification Mallampati Classification Grade 1 Sedation Plan Analgesia, Amnesia, Plan communicated to team members, Discussed options with patient/fam, Discussed risks with patient/fam The patient is an appropriate candidate to undergo the planned procedure, sedation, and anesthesia. The patient immediately re-assessed prior to indication. Jose GRAY MD Dec 09, 2018 15:57
[2018-12-09] MEDS ORDERED: PATIENT MAY USE OWN MEDS, ALL PO SCH (16:00)
[2018-12-09] MEDS: NS IV 1000 ML 1,000 ML IV SCH (18:12)
[2018-12-10] MEDS: NS IV 1000 ML 1,000 ML IV SCH (03:33)
[2018-12-10 04:06] LABS: HEMOGLOBIN 9.1 G/DL (13.3-17.7); MEAN PLATELET VOLUME 9.5 FL (7.4-10.4); RED CELL DISTRIBUTION WIDTH 16.9 % (10.0-14.5); WHITE BLOOD COUNT 8.3 10^3/uL (4.3-11.0)
[2018-12-10 04:24] LABS: CALCIUM 8.6 MG/DL (8.5-10.1); CREATININE SERUM 1.34 MG/DL (0.60-1.30); POTASSIUM 4.2 MMOL/L (3.6-5.0)
[2018-12-10 04:46] VITALS: BP 112/59
[2018-12-10] MEDS ORDERED: ASPIRIN E.C. 81 MG (ECOTRIN) TAB PO SCH (09:00)
[2018-12-10] MEDS ORDERED: PRASUGREL 10 MG (EFFIENT) TABLET PO SCH ×2 (09:00)
[2018-12-10 09:15] VITALS: BP 135/65
--- NOTE | 2018-12-10 11:25 | NUR ---
discharge instructions discussed with patient and son. Patient and son both verbalized understanding of discharge instructions. Patient IV removed with tip intact. Patient taken to main entrance in wheelchair by staff, patient helped into vehicle.
--- NOTE | 2018-12-10 11:36 | Cardiology Discharge Summary ---
Diagnosis/Chief Complaint Date of Admission 12/09/2018 Date of Discharge 12/10/2018 Admission Diagnosis Severe lifestyle limiting claudication. Final/Discharge Diagnosis Severe PAD Chief Complaint/HPI Chief Complaint/HPI This is a 68-year-old gentleman with known history of CAD, PCI. The patient has lifestyle limiting claudication on excellent medical therapy for PAD including dual antiplatelet therapy, high-dose statin, ROSEANNA inhibitor and beta blockers. Peripheral angiogram and intervention is recommended. Discharge Summary Procedures Successful revascularization of the left SFA with arthrectomy, balloon and stent. Discharge Physical Examination Unremarkable. Hospital Course Was the Problem List Reviewed?: Yes Unremarkable. Pending Labs Discussion & Recommendations Discussion Discharge instructions took 30 minutes to complete. Discharge instructions were discussed at length with the patient and family. We will follow the patient clinically. He may require bilateral common iliac stenting in the future if required. Follow up appt.: Dr. Chandra in 2-3 weeks. Dicharge Diet: Cardiac Diet Home Medications Reviewed patient Home Medication Reconciliation performed by pharmacy medication reconciliations cook chill technician and/or nursing. Patients Allergies have been reviewed. Discharge Home Medications: Reviewed and agree with Discharge Medication list on patient's Discharge Instruction sheet Condition at discharge Stable. Instructions to patient/family Discussed at length with the patient and family. Jose CHANDRA MD Dec 10, 2018 11:36
--- NOTE | 2018-12-10 11:37 | Discharge Inst-Post CATH ---
Discharge Inst-CATH/EP Post Cardiac Cath/EP D/C Inst Follow Up/Plan Dr Chandra on already scheduled appt <b>CARDIAC CATH/EP PROCEDURE DISCHARGE INSTRUCTIONS</b> Cardiac Rehab Please be expecting a follow up call from Cardiac Rehab within in one week. ACTIVITY * Go Home directly and rest. * Limit activity of the leg (or wrist if it was used) for 7 days including aerobics, swimming, jogging, bicycling, etc. * Restrict stair-climbing for 7 days if possible, if not, climb up with your non -cath leg, then bring together on the same step. * Avoid lifting, pushing, pulling or excessive movement of the affected extremity for 7 days. * Customary sexual activity may be resumed after 2 days-use caution not to use a position that strains or causes pain to the affected extremity. * No driving for 24 hours. * NO SMOKING. * Avoid straining for bowel movements for 7 days. * Gentle walking on level ground is allowed. * Returning to work will depend on the type of procedure and the results. Your doctor will discuss this with you. CALL YOUR DOCTOR FOR ANY OF THE FOLLOWING: *If bleeding from the puncture site occurs- Apply gentle pressure to site with clean cloth and call your doctor or EMS. * If a knot or lump forms under the skin, increases in size, or causes pain. * If bruising appears to be worsening or moving further down your leg instead of disappearing. * Temperature above 101 F. CARE OF YOUR GROIN INCISION; * Bruising or purple discoloration of the skin near the puncture site is common. * You may shower only, no bathtub bathing for 5 days. Be careful to avoid slipping as your leg may feel stiff. * If a closure device was used on your femoral artery, please see the attached guide regarding care of the device and your leg. * Leave dressing on FOR 24 hours. CARE OF YOUR WRIST INCISION; * Bruising or purple discoloration of the skin near the puncture site is common. * You may shower. * DO NOT submerge wrist. * Leave dressing on FOR 24 hours. Jose CHANDRA MD Dec 10, 2018 11:37 am
== END 2018-12-10 11:25 | disposition home or self-care (01) ==
LOC: CATH 10:09 → ICU 16:20 → CATH 12-10 11:25
PROVIDERS: ATTEND Internal Medicine Interventional Cardiology
DX: I70.212 Atherosclerosis of native arteries of extremities with intermittent claudication, left leg (principal); I25.10 Atherosclerotic heart disease of native coronary artery without angina pectoris; I25.5 Ischemic cardiomyopathy; I10 Essential (primary) hypertension; E11.9 Type 2 diabetes mellitus without complications; E78.5 Hyperlipidemia, unspecified; F17.210 Nicotine dependence, cigarettes, uncomplicated; Z79.4 Long term (current) use of insulin; Z79.899 Other long term (current) drug therapy
CPT/HCPCS: 36415; 80048; 80053; 82962; 85027; 85347; 85610; 85730; 87081; 93005

== ENCOUNTER 2019-02-22 18:09 | Inpatient (IN) | payer MEDICARE, MEDICAID ==
[~2019-02-22] VITALS: Ht 172.7 cm; Wt 95.4 kg
[2019-02-22] VITALS (8 sets, daily range): BP systolic 134–166; BP diastolic 76–101
[~2019-02-22 18:09] MED LIST changes: +ACET-2267 PO; +BISA5TAB8 PO; +BUDE10.2 IH; +DIPH25TA65 PO; +INSU100I29 SQ; +LISI2.5T PO; +MELA1TAB35 PO; +POLY17PO6 PO; +PRAZ1CAP2 PO; +SUCR1TAB36 PO; +[UNRECOGNIZED DRUG - CODE] PO
--- NOTE | 2019-02-22 18:22 | ED General ---
General Chief Complaint: General Problems/Pain Stated Complaint: GENERALIZED PAIN Source of Information: Patient Exam Limitations: No Limitations History of Present Illness Date Seen by Provider: Feb 22, 2019 Time Seen by Provider: 18:20 Initial Comments To ER per EMS from home with reports of generalized pain causing suicidality. He has chronic pain in both lower extremities for over a year that he rates at 10 out of 10 despite his tramadol use. He states that he is suicidal only because he wants to "escape the pain". He states that the pain can be controlled he would not be suicidal. He does not have a specific plan. He states that he has PTSD and this pain contributes anxiety attacks which makes him suicidal. History of stenting peripherally to each lower extremity. He is also diabetic with neuropathy. Severity: Moderate Associated Systoms: Denies Symptoms Allergies and Home Medications Allergies Coded Allergies: No Known Drug Allergies (Verified , 07/08/18) Home Medications Acetaminophen 500 Mg Tablet, 500-1,000 MG PO Q6H PRN for PAIN-MILD, (Reported) Albuterol Sulfate 6.7 Gm Hfa.aer.ad, 2 PUFF INH BID, (Reported) Albuterol Sulfate 6.7 Gm Hfa.aer.ad, 2 PUFF INH 1200 PRN for SHORTNESS OF BREATH, (Reported) Atorvastatin Calcium 80 Mg Tablet, 80 MG PO HS, (Reported) Bisacodyl 5 Mg Tablet.dr, 10 MG PO DAILY PRN for CONSTIPATION-4TH LINE, (Reported) Budesonide/Formoterol Fumarate 10.2 Gm Hfa.aer.ad, 2 PUFF IH BID, (Reported) Caffeine 200 Mg Tablet, 200-400 MG PO BID PRN for DROWSINESS, (Reported) Diphenhydramine HCl 25 Mg Tablet, 25 MG PO BID PRN for ALLERGIES/ANXIETY, (Reported) Finasteride 5 Mg Tablet, 5 MG PO DAILY, (Reported) Hydroxyzine HCl 25 Mg Tablet, 25 MG PO TID PRN for ANXIETY, (Reported) Insulin Detemir 100 Unit/1 Ml Insuln.pen, 50 UNIT SQ HS, (Reported) Lisinopril 2.5 Mg Tablet, 2.5 MG PO DAILY, (Reported) Lorazepam 0.5 Mg Tablet, 0.5 MG PO Q6H PRN for ANXIETY, (Reported) Melatonin/Lemon [place] Extr 1 Each Tablet, 1 TAB PO HS, (Reported) Metoprolol Succinate 25 Mg Tab.er.24h, 25 MG PO BID, (Reported) Mirtazapine 30 Mg Tablet, 30 MG PO HS, (Reported) Pantoprazole Sodium 40 Mg Tablet.dr, 40 MG PO BID, (Reported) Paroxetine HCl 37.5 Mg Tab.er.24h, 37.5 MG PO HS, (Reported) Polyethylene Glycol 3350 17 Gm Powd.pack, 17 GM PO DAILY PRN for CONSTIPATION- 2ND LINE, (Reported) Prasugrel HCl 10 Mg Tablet, 10 MG PO DAILY, (Reported) Prazosin HCl 1 Mg Capsule, 5 MG PO HS, (Reported) TAKES 5 (1MG) CAPSULES Sucralfate 1 Gm Tablet, 1 GM PO ACHS, (Reported) Tramadol HCl 50 Mg Tablet, 50 MG PO TID PRN for PAIN-MODERATE, (Reported) Umeclidinium [place] 62.5 Mcg Blst.w.dev, 1 PUFF INH DAILY, (Reported) Patient Home Medication List Home Medication List Reviewed: Yes Review of Systems Review of Systems Constitutional: see HPI EENTM: see HPI Respiratory: no symptoms reported Cardiovascular: no symptoms reported Genitourinary: no symptoms reported Musculoskeletal: see HPI Skin: no symptoms reported Psychiatric/Neurological: No Symptoms Reported Hematologic/Lymphatic: No Symptoms Reported Immunological/Allergic: no symptoms reported Past Idadnhe-Ptfpbd-Tgnukv Hx Patient Social History Alcohol Beverage of Choice: Beer Type Used: Cigarettes 2nd Hand Smoke Exposure: No Recent Foreign Travel: No Contact w/Someone Who Travel: No Recent Hopitalizations: Yes (HEART CATH) Immunizations Up To Date Tetanus Booster (TDap): Unknown Date of Pneumonia Vaccine: Dec 02, 2016 Date of Influenza Vaccine: May 24, 2018 Seasonal Allergies Seasonal Allergies: No Past Medical History Surgeries: Yes Abdominal, Coronary Stent Respiratory: Yes Asthma, COPD Currently Using CPAP: No Currently Using BIPAP: No Cardiac: Yes Atrial Fibrillation, Cardiomyopathy, Hypertension Neurological: Yes Sexually Transmitted Disease: No HIV/AIDS: No Genitourinary: Yes Benign Prostatic Hyperpl, Kidney Infection, Prostate Problems Gastrointestinal: Yes (GI BLEED AUG 2018) Gastrointestinal Bleed, Irritable Bowel Musculoskeletal: Yes Back Injury Endocrine: Yes Diabetes, Insulin dep HEENT: Yes (Are likely dry eyes) Loss of Vision: Bilateral Hearing Impairment: Denies Cancer: No Psychosocial: Yes Anxiety, PTSD Integumentary: No Blood Disorders: No Adverse Reaction/Blood Tranf: No Family Medical History No Pertinent Family Hx Physical Exam Vital Signs Vital Signs - First Documented 02/22/19 18:10 Temp 97.3 Pulse 95 Resp 20 B/P (MAP) 143/96 (112) Pulse Ox 99 O2 Delivery Nasal Cannula O2 Flow Rate 4.00 Capillary Refill : Height, Weight, BMI Height: 5'7.00" Weight: 179lbs. 0.0oz. 81.253285bf; 28.0 BMI Method:Stated General Appearance: No Apparent Distress, WD/WN, Other ( alert, talkative, cooperative, pleasant.) Eyes: Bilateral Eye Normal Inspection, Bilateral Eye PERRL HEENT: PERRL/EOMI, TMs Normal Neck: Full Range of Motion, Normal Inspection Respiratory: No Accessory Muscle Use, No Respiratory Distress Gastrointestinal: Normal Bowel Sounds, Non Tender, Soft Extremity: Normal Capillary Refill, Pedal Edema (3+ bilateral lower), Other (each lower extremity is warm with inability to palpate a dorsalis pedis pulse on either side but I am able to Doppler blood flow in this location with ultrasound.) Neurologic/Psychiatric: Alert, Oriented x3 Skin: Normal Color, Warm/Dry Progress/Results/Core Measures Suspected Sepsis SIRS Temperature: Pulse: Respiratory Rate: Laboratory Tests 02/22/19 18:40: White Blood Count 9.2 Blood Pressure / Mean: Laboratory Tests 02/22/19 18:40: Creatinine 1.42H, Platelet Count 317, Total Bilirubin 0.5 Results/Orders Lab Results Laboratory Tests Test 02/22/19 18:40 Range/Units White Blood Count 9.2 4.3-11.0 10^3/uL Red Blood Count 4.88 4.35-5.85 10^6/uL Hemoglobin 12.1 L 13.3-17.7 G/DL Hematocrit 40 40-54 % Mean Corpuscular Volume 82 80-99 FL Mean Corpuscular Hemoglobin 25 25-34 PG Mean Corpuscular Hemoglobin Concent 30 L 32-36 G/DL Red Cell Distribution Width 18.0 H 10.0-14.5 % Platelet Count 317 130-400 10^3/uL Mean Platelet Volume 8.7 7.4-10.4 FL Neutrophils (%) (Auto) 83 H 42-75 % Lymphocytes (%) (Auto) 9 L 12-44 % Monocytes (%) (Auto) 7 0-12 % Eosinophils (%) (Auto) 1 0-10 % Basophils (%) (Auto) 0 0-10 % Neutrophils # (Auto) 7.7 1.8-7.8 X 10^3 Lymphocytes # (Auto) 0.8 L 1.0-4.0 X 10^3 Monocytes # (Auto) 0.6 0.0-1.0 X 10^3 Eosinophils # (Auto) 0.1 0.0-0.3 10^3/uL Basophils # (Auto) 0.0 0.0-0.1 10^3/uL Sodium Level 142 135-145 MMOL/L Potassium Level 3.3 L 3.6-5.0 MMOL/L Chloride Level 96 L 98-107 MMOL/L Carbon Dioxide Level 39 H 21-32 MMOL/L Anion Gap 7 5-14 MMOL/L Blood Urea Nitrogen 12 7-18 MG/DL Creatinine 1.42 H 0.60-1.30 MG/DL Estimat Glomerular Filtration Rate 49 BUN/Creatinine Ratio 8 Glucose Level 109 H 70-105 MG/DL Calcium Level 9.0 8.5-10.1 MG/DL Corrected Calcium 9.2 8.5-10.1 MG/DL Total Bilirubin 0.5 0.1-1.0 MG/DL Aspartate Amino Transf (AST/SGOT) 31 5-34 U/L Alanine Aminotransferase (ALT/SGPT) 25 0-55 U/L Alkaline Phosphatase 122 40-136 U/L Troponin I 0.059 H <0.028 NG/ML B-Type Natriuretic Peptide 2629.1 H <100.0 PG/ML Total Protein 6.8 6.4-8.2 GM/DL Albumin 3.8 3.2-4.5 GM/DL Lipase 6 L 8-78 U/L My Orders Orders - KIARA CABALLERO APRN Gabapentin Capsule/Tablet (Neurontin Cap (02/22/19 18:30) Hydrocodone/Apap 5/325 Tablet (Lortab 5 (02/22/19 18:30) Cbc With Automated Diff (02/22/19 18:22) Comprehensive Metabolic Panel (02/22/19 18:22) BNP (02/22/19 18:22) Chest 1 View, Ap/Pa Only (02/22/19 19:22) Potassium Chloride (Tablet) (K Dur Table (02/22/19 19:30) Ekg Tracing (02/22/19 19:33) Troponin I (02/22/19 19:33) Aspirin Enteric Coated Tablet (Ecotrin T (02/22/19 19:45) Lipase (02/22/19 19:38) Ct Angio Chest W (02/22/19 19:46) Iohexol Injection (Omnipaque 350 Mg/Ml 1 (02/22/19 20:00) Received Contrast (Hold Metformin- Contr (02/22/19 20:00) Ns (Ivpb) (Sodium Chloride 0.9% Ivpb Bag (02/22/19 20:00) Fentanyl Injection (Sublimaze Injection (02/22/19 20:30) Furosemide Injection (Lasix Injection) (02/22/19 21:00) Medications Given in ED Current Medications Medications Dose Ordered Sig/Maryjo Route Start Time Stop Time Status Last Admin Dose Admin Acetaminophen/ Hydrocodone Bitart 1 tab ONCE ONCE PO 02/22/19 18:30 02/22/19 18:31 DC 02/22/19 18:32 1 TAB Aspirin 324 mg ONCE ONCE PO 02/22/19 19:45 02/22/19 19:46 DC 02/22/19 20:09 324 MG Fentanyl Citrate 50 mcg ONCE ONCE IVP 02/22/19 20:30 02/22/19 20:31 DC 02/22/19 20:58 50 MCG Gabapentin 100 mg ONCE ONCE PO 02/22/19 18:30 02/22/19 18:31 DC 02/22/19 18:36 100 MG Potassium Chloride 40 meq ONCE ONCE PO 02/22/19 19:30 02/22/19 19:32 DC 02/22/19 20:09 40 MEQ Vital Signs/I&O 02/22/19 18:10 Temp 97.3 Pulse 95 Resp 20 B/P (MAP) 143/96 (112) Pulse Ox 99 O2 Delivery Nasal Cannula O2 Flow Rate 4.00 Capillary Refill : Diagnostic Imaging Diagonstic Imaging: Xray Comments NAME: SWATI [facility]ONARD [facility] REC#: [id number] PT STATUS: REG ER : 1950 PHYSICIAN: KIARA CABALLERO VISITOR INFORMATION ASSISTANT ADMIT DATE: 02/22/19/ER Draft Date of Exam:02/22/19 CHEST 1 VIEW, AP/PA ONLY Indication: Feet swelling and diaphoresis Time of exam: 7:35 PM Correlation is made to prior study 08/07/2018. The heart is enlarged. There is a zone of linear consolidation in the right lung base suggestive of atelectasis. There are congestive changes in both lungs with prominence of the interstitial markings. There may be a small amount of pleural fluid bilaterally as well. No pneumothorax. Impression: Congestive changes with discoid right basilar atelectasis and small bilateral effusions. Dictated on workstation # [id number] Dict: 02/22/191938 Trans: 02/22/191940 [facility] [id number] Interpreted by: GERARDO NOE MD Electronically signed by: Departure Communication (Admissions) 1938-patient is now diaphoretic and states he's been diaphoretic for about 10 minutes. Blood pressure is 160/86 heart rate 99, 99% on room air, complains of some epigastric pressure. He states that these are the symptoms that he would experience at home that he would call a panic attack. Typically he got in the shower this will get better. I would have some concern that perhaps this represents an unstable angina. I've ordered aspirin, EKG and additional labs. 2100-the diaphoresis and epigastric pain that the patient had lasted for about 15 minutes before resolving spontaneously. He states that the gabapentin and hydrocodone did not help with the leg pain. Impression Primary Impression: Acute systolic CHF (congestive heart failure) Disposition: ADMITTED INPATIENT Condition: Stable Admissions Decision to Admit Reason: Admit from ER (General) Decision to Admit/Date: Feb 22, 2019 Time/Decision to Admit Time: 21:01 Departure-Patient Inst. Referrals: [facility] (PCP/Family) Primary Care Physician KIARA CABALLERO APRN Feb 22, 2019 18:22
[2019-02-22] MEDS ORDERED: GABAPENTIN 100 MG (NEURONTIN) CAP PO ONE (18:30)
[2019-02-22] MEDS ORDERED: HYDROcodone/APAP 5 MG/325 MG (LORTAB) TAB PO ONE (18:30)
[2019-02-22 18:48] LABS: BASOPHILS % (AUTO) 0 % (0-10); EOSINOPHILS # (AUTO) 0.1 10^3/uL (0.0-0.3); EOSINOPHILS % (AUTO) 1 % (0-10); HEMATOCRIT 40 % (40-54); HEMOGLOBIN 12.1 G/DL (13.3-17.7); LYMPHOCYTES # (AUTO) 0.8 X 10^3 (1.0-4.0); LYMPHOCYTES % (AUTO) 9 % (12-44); MEAN CORPUSCULAR HEMOGLOBIN 25 PG (25-34); MEAN CORPUSCULAR HGB CONC 30 G/DL (32-36); MEAN CORPUSCULAR VOLUME 82 FL (80-99); MEAN PLATELET VOLUME 8.7 FL (7.4-10.4); MONOCYTES # (AUTO) 0.6 X 10^3 (0.0-1.0); MONOCYTES % (AUTO) 7 % (0-12); NEUTROPHILS # (AUTO) 7.7 X 10^3 (1.8-7.8); NEUTROPHILS % (AUTO) 83 % (42-75); PLATELET COUNT 317 10^3/uL (130-400); WHITE BLOOD COUNT 9.2 10^3/uL (4.3-11.0)
--- NOTE | 2019-02-22 19:00 | NUR ---
Recieved report from VANNA Gore to assume care of pt @ this time.
[2019-02-22 19:07] LABS: ALBUMIN 3.8 GM/DL (3.2-4.5); BILIRUBIN,TOTAL 0.5 MG/DL (0.1-1.0); CREATININE SERUM 1.42 MG/DL (0.60-1.30); POTASSIUM 3.3 MMOL/L (3.6-5.0); TOTAL PROTEIN 6.8 GM/DL (6.4-8.2)
--- NOTE | 2019-02-22 19:15 | NUR ---
Called to pt room where pt states, "I need a cool rag and a fan, i'm about to have a panic attack!" Cool rag applied to forehead.
[2019-02-22] MEDS ORDERED: KCL 20 MEQ TAB (K-DUR) PO ONE (19:30)
--- NOTE | 2019-02-22 19:30 | NUR ---
Upon entering room pt noted to be pale, diaphoretic, and in tripod position. Pt reports chest discomfort stating, "this is what happens when I start my panic attacks." Son @ side reports this is third similar incident that has occured throughout this day. Son reports pt "has not been eating lately."
--- OUTSIDE RECORDS SUMMARY | 2019-02-22 19:41 | XMS REPORT ---
Author Author Migration, Doctor Organization [facility] Address Unknown Phone Unavailable Care Team Providers Care Laboratory Chemist Name Role Phone Migration, Doctor Unavailable Unavailable PROBLEMS Type Condition ICD9-CM Code [id number] Code Onset Dates Condition Status SNOMED Code Problem Hypertriglyceridemia E78.1 Active 299420201 Problem Diabetes type 2, controlled E11.9 Active 87442636 Problem Other chronic pain G89.29 Active 82914524 Problem Panlobular emphysema J43.1 Active 2770413 Problem Gastroesophageal reflux disease with esophagitis K21.0 Active 694054944 Problem Afib I48.91 Active 25400675 Problem COPD exacerbation J44.1 Active 142498134 Problem Hypertensive heart disease with heart failure I11.0 Active 07097384 Problem Diabetes E11.9 Active 47232790 Problem PTSD (post-traumatic stress disorder) F43.10 Active 06420856 Problem PVD (peripheral vascular disease) I73.9 Active 916575778 Problem Uncontrolled type 2 diabetes mellitus with hyperglycemia E11.65 Active 422039616 Problem Foot drop, right M21.371 Active [id number] ALLERGIES No Information ENCOUNTERS Encounter Location Date Diagnosis [place] [id number] [place] [address] Feb, [place] [id number] [place] [address] Jan, [place] [address] [place] [id number] [place] [address] December, PTSD (post-traumatic stress disorder) F43.10 [place] [address] [address] Nov, Diabetes type 2, controlled E11.9 ; Hypertriglyceridemia E78.1 ; COPD exacerbation J44.1 ; PTSD (post-traumatic stress disorder) F43.10 ; Other chronic pain G89.29 ; Gastroesophageal reflux disease with esophagitis K21.0 ; PVD (peripheral vascular disease) I73.9 and Hypertensive heart disease with heart failure I11.0 [place] [id number] [place] [address] 12 Oct, 2018 PTSD (post-traumatic stress disorder) F43.10 [place] [address] [address] 21 Sep, 2018 Diabetes type 2, controlled E11.9 and PTSD (post-traumatic stress disorder) F43.10 [place] [address] [place] [id number] [place] [address] Sep, [place] [address] [place] [id number] [place] [address] Sep, PTSD (post-traumatic stress disorder) F43.10 [place] [address] [place] [id number] [place] [address] Sep, [place] [address] [place] [id number] [place] [address] Aug, COPD exacerbation J44.1 ; Difficulty breathing R06.89 ; History of GI bleed Z87.19 ; PVD (peripheral vascular disease) I73.9 and Uncontrolled type 2 diabetes mellitus with hyperglycemia E11.65 [place] [id number] [place] [address] 11 Aug, 2018 [place] [id number] [place] [address] Aug, PTSD (post-traumatic stress disorder) F43.10 and Type 2 diabetes mellitus without complication, without long-term current use of insulin E11.9 [facility] [address] [id number] Aug, History of GI bleed Z87.19 ; COPD exacerbation J44.1 and PVD (peripheral vascular disease) I73.9 [place] [address] [address] Aug, [facility] [address] [place] [id number] Aug, Diabetes E11.9 ; Other chronic pain G89.29 and Panlobular emphysema J43.1 [place] [address] [place] [id number] [place] [address] Jul, [place] [address] [place] [id number] [place] [address] Jun, PTSD (post-traumatic stress disorder) F43.10 [place] [address] [address] Jun, [place] [address] [address] Jun, PTSD (post-traumatic stress disorder) F43.10 [place] [address] [place] [id number] [place] [address] 12 Jun, 2018 [place] [address] [address] Jun, [place] [address] [place] [id number] [place] [address] 08 Jun, 2018 Uncontrolled type 2 diabetes mellitus without complication, without long-term current use of insulin E11.65 [place] [address] [place] [id number] [place] [address] 07 Jun, 2018 PTSD (post-traumatic stress disorder) F43.10 ; Low back pain M54.5 ; Other chronic pain G89.29 ; Gastroesophageal reflux disease with esophagitis K21.0 and Panlobular emphysema J43.1 [place] [address] [place] [id number] [place] [address] Jun, [place] [id number] [place] [address] Jun, Other chest pain R07.89 ; Tachycardia R00.0 and Murmur, cardiac R01.1 [place] [address] [place] [id number] [place] [address] May, Other chest pain R07.89 ; Tachycardia R00.0 and Murmur, cardiac R01.1 [facility] [address] [place] [id number] [place] [address] May, [facility] [address] [address] May, Uncontrolled type 2 diabetes mellitus with hyperglycemia E11.65 and Oral candidiasis B37.0 [facility] [address] [address] May, COPD exacerbation J44.1 [place] [address] [address] May, COPD exacerbation J44.1 [facility] [address] [place] [id number] [place] [address] May, COPD exacerbation J44.1 and Type 2 diabetes mellitus without complication, without long-term current use of insulin E11.9 [facility] [address] [place] [id number] [place] [address] May, Difficulty breathing R06.89 and Acute bronchitis, unspecified organism J20.9 [facility] [address] [place] [id number] [place] [address] Apr, Uncontrolled type 2 diabetes mellitus without complication, without long-term current use of insulin E11.65 [place] [address] [place] [id number] [place] [address] Feb, [place] [address] [place] [id number] [place] [address] Feb, [place] [address] [address] Feb, [place] [address] [place] [id number] [place] [address] Jan, [place] [address] [address] Oct, [facility] [address] [address] Jul, Diabetes type 2, controlled E11.9 [facility] [address] [place] [id number] [place] [address] Jun, [facility] [address] [place] [id number] [place] [address] May, [facility] [address] [place] [id number] [place] [address] May, Diabetes type 2, controlled E11.9 and Hypertriglyceridemia E78.1 [facility] [address] [address] May, [facility] [address] [place] [id number] [place] [address] Apr, Hypertriglyceridemia 272.1 ; Influenza vaccine administered V04.81 and Diabetes 250.00 [facility] [address] [place] [id number] [place] [address] Mar, DM type 2 (diabetes mellitus, type 2) 250.00 ; Essential hypertension, benign 401.1 and Mood disorder 296.90 [facility] [id number] [place] [address] Jan, [facility] [id number] [place] [address] Nov, [facility] [address] [place] [id number] [place] [address] Nov, [facility] [address] [place] [id number] [place] [address] Sep, [facility] [address] [place] [id number] [place] [address] Sep, [facility] [address] [address] Sep, [facility] [address] [place] [id number] [place] [address] Sep, [facility] [place] [facility] [address] [id number] [place] [address] May, [facility] [place] [facility] [address] [id number] [place] [address] May, [facility] [place] [facility] [address] [id number] [place] [address] Apr, [facility] [place] [facility] [address] [id number] [place] [address] Apr, [facility] [place] [facility] [address] [id number] [place] [address] Mar, [facility] [place] [facility] [address] [id number] [place] [address] Mar, [facility] [place] [facility] [address] [id number] [place] [address] Mar, [facility] [place] [facility] [address] [id number] [place] [address] Mar, [facility] [place] [facility] [address] [id number] [place] [address] Jan, [facility] [place] [facility] [address] [id number] [place] [address] Jan, [facility] [place] [facility] [address] [id number] [place] [address] Jan, [facility] [place] [facility] [address] [id number] [place] [address] Jan, [facility] [place] [facility] [address] [id number] [place] [address] Jan, [facility] [place] [facility] [address] [id number] [place] [address] Jan, [facility] [place] [facility] [address] [id number] [place] [address] Oct, [facility] [address] [id number] [place] [address] Oct, [facility] [place] [facility] [address] [id number] [place] [address] Sep, [facility] [place] [facility] [address] [id number] [place] [address] Sep, [facility] [place] [facility] [address] [id number] [place] [address] Jun, [facility] [place] [facility] [address] [id number] [place] [address] Jun, [facility] [place] [facility] [address] [id number] [place] [address] Mar, [facility] [place] [facility] [address] [id number] [place] [address] Feb, [facility] [place] [facility] [address] [id number] [place] [address] Feb, [facility] [place] [facility] [address] [id number] [place] [address] Nov, [facility] [place] [facility] [address] [id number] [place] [address] Aug, [facility] [place] [facility] [address] [id number] [address] Aug, [facility] [place] [facility] [address] [id number], [place] [address] Jul, [facility] [place] [facility] [address] [id number] [place] [address] Jul, [facility] [place] [facility] [address] [id number] [address] May, [facility] [place] [facility] [address] [id number] [place] [address] May, [facility] [place] [facility] [id number] [address] 18 May, 2012 [facility] [address] [facility] [id number] [place] [address] 18 May, 2012 [facility] [address] [facility] [id number] [place] [address] 28 Apr, 2012 [facility] [id number] [place] [address] Feb, [facility] [address] [facility] [id number] [place] [address] Feb, [facility] [address] [place] [id number] [place] [address] Jan, [facility] [address] [facility] [id number] [place] [address] Jan, [facility] [id number] [place] [address] Nov, [facility] [id number] [place] [address] Oct, [facility] [id number] [place] [address] Oct, [facility] [id number] [place] [address] Jul, [facility] [id number] [place] [address] May, [facility] [address] [facility] [id number] [address] Nov, [facility] [address] [address] Jun, [facility] [address] [place] [id number] [address] December, [facility] [address] [place] [id number] [address] Jul, IMMUNIZATIONS No Known Immunizations SOCIAL HISTORY Never Assessed REASON FOR VISIT EMR-[facility] PLAN OF CARE VITAL SIGNS MEDICATIONS Unknown Medications RESULTS No Results PROCEDURES No Known procedures INSTRUCTIONS MEDICATIONS ADMINISTERED No Known Medications MEDICAL (GENERAL) HISTORY Type Description Date Medical History hypertension Medical History diabetes type 2 Medical History PTSD Medical History IBS Medical History Back pain Medical History Type 2 diabetes mellitus without complication, without long-term current use of insulin Medical History Uncontrolled type 2 diabetes mellitus with hyperglycemia Medical History Hay Fever Surgical History 2 stints placed 2018 Surgical History multiple stents Hospitalization History rectal and vomitting blood 2019
--- OUTSIDE RECORDS SUMMARY | 2019-02-22 19:41 | XMS REPORT ---
Author Author Migration, Doctor Organization [facility] Address Unknown Phone Unavailable Care Team Providers Care Patient Transport Orderly Name Role Phone Migration, Doctor Unavailable Unavailable PROBLEMS Type Condition ICD9-CM Code ZWT55-LC Code Onset Dates Condition Status SNOMED Code Problem Hypertriglyceridemia E78.1 Active 898478241 Problem Diabetes type 2, controlled E11.9 Active 71917497 Problem Other chronic pain G89.29 Active 31362417 Problem Panlobular emphysema J43.1 Active 3495190 Problem Gastroesophageal reflux disease with esophagitis K21.0 Active 370412626 Problem Afib I48.91 Active 32685930 Problem COPD exacerbation J44.1 Active 151876284 Problem Hypertensive heart disease with heart failure I11.0 Active 74519313 Problem Diabetes E11.9 Active 39796642 Problem PTSD (post-traumatic stress disorder) F43.10 Active 96736421 Problem PVD (peripheral vascular disease) I73.9 Active 853274327 Problem Uncontrolled type 2 diabetes mellitus with hyperglycemia E11.65 Active 937318328 Problem Foot drop, right M21.371 Active [id number] ALLERGIES No Information ENCOUNTERS Encounter Location Date Diagnosis [facility] [address] [address] Feb, [facility] [address] [address] Jan, [facility] [id number] [place] [address] December, [facility] [id number] [place] [address] December, [facility] [id number] [place] [address] December, [facility] [id number] [place] [address] December, [place] [id number] [place] [address] December, [place] [id number] [place] [address] December, PTSD (post-traumatic stress disorder) F43.10 [place] [id number] [place] [address] Nov, Diabetes type 2, controlled E11.9 ; Hypertriglyceridemia E78.1 ; COPD exacerbation J44.1 ; PTSD (post-traumatic stress disorder) F43.10 ; Other chronic pain G89.29 ; Gastroesophageal reflux disease with esophagitis K21.0 ; PVD (peripheral vascular disease) I73.9 and Hypertensive heart disease with heart failure I11.0 [place] [id number] [place] [address] Oct, PTSD (post-traumatic stress disorder) F43.10 [place] [id number] [place] [address] Sep, Diabetes type 2, controlled E11.9 and PTSD (post-traumatic stress disorder) F43.10 [place] [id number] [place] [address] Sep, [facility] [id number] [place] [address] Sep, PTSD (post-traumatic stress disorder) F43.10 [place] [id number] [place] [address] Sep, [place] [id number] [place] [address] Aug, COPD exacerbation J44.1 ; Difficulty breathing R06.89 ; History of GI bleed Z87.19 ; PVD (peripheral vascular disease) I73.9 and Uncontrolled type 2 diabetes mellitus with hyperglycemia E11.65 [place] [id number] [place] [address] Aug, [place] [address] [place] [address] 10 Aug, 2018 PTSD (post-traumatic stress disorder) F43.10 and Type 2 diabetes mellitus without complication, without long-term current use of insulin E11.9 [facility] [address] [place] [id number] 08 Aug, 2018 History of GI bleed Z87.19 ; COPD exacerbation J44.1 and PVD (peripheral vascular disease) I73.9 [place] [id number] [place] [address] 08 Aug, 2018 [facility] [address] [place] [id number] 03 Aug, 2018 Diabetes E11.9 ; Other chronic pain G89.29 and Panlobular emphysema J43.1 [place] [id number] [place] [address] 12 Jul, 2018 [place] [facility] [id number] [place] [address] Jun, PTSD (post-traumatic stress disorder) F43.10 [place] [id number] [place] [address] 14 Jun, 2018 [place] [id number] [place] [address] 12 Jun, 2018 PTSD (post-traumatic stress disorder) F43.10 [place] [id number] [place] [address] 12 Jun, 2018 [place] [id number] [place] [address] 09 Jun, 2018 [place] [facility] [id number] [place] [address] 08 Jun, 2018 Uncontrolled type 2 diabetes mellitus without complication, without long-term current use of insulin E11.65 [facility] [facility] [id number] [place] [address] 07 Nov, 2018 PTSD (post-traumatic stress disorder) F43.10 ; Low back pain M54.5 ; Other chronic pain G89.29 ; Gastroesophageal reflux disease with esophagitis K21.0 and Panlobular emphysema J43.1 [place] [id number] [place] [address] Jun, [place] [address] [address] Jun, Other chest pain R07.89 ; Tachycardia R00.0 and Murmur, cardiac R01.1 [place] [address] [address] May, Other chest pain R07.89 ; Tachycardia R00.0 and Murmur, cardiac R01.1 [facility] [place] [address] [address] May, [place] [address] [address] May, Uncontrolled type 2 diabetes mellitus with hyperglycemia E11.65 and Oral candidiasis B37.[address] [address] May, COPD exacerbation J44.1 [place] [id number] [place] [address] May, COPD exacerbation J44.1 [facility] [address] [address] May, COPD exacerbation J44.1 and Type 2 diabetes mellitus without complication, without long-term current use of insulin E11.9 [facility] [address] [address] May, Difficulty breathing R06.89 and Acute bronchitis, unspecified organism J20.9 [place] [facility] [id number] [place] [address] Apr, Uncontrolled type 2 diabetes mellitus without complication, without long-term current use of insulin E11.65 [facility] [address] [address] Feb, [facility] [address] [address] Feb, [facility] [address] [address] Feb, [facility] [id number] [address] Jan, [facility] [address] [address] Oct, [facility] [address] [address] Jul, Diabetes type 2, controlled E11.9 [facility] [address] [address] Jun, [facility] [address] [address] May, [facility] [address] [address] May, Diabetes type 2, controlled E11.9 and Hypertriglyceridemia E78.1 [facility] [address] [address] May, [facility] [address] [address] Apr, Hypertriglyceridemia 272.1 ; Influenza vaccine administered V04.81 and Diabetes 250.00 [facility] [address] [address] Mar, DM type 2 (diabetes mellitus, type 2) 250.00 ; Essential hypertension, benign 401.1 and Mood disorder 296.90 [facility] [address] [address] Jan, [facility] [id number] [place] [address] 14 Nov, 2014 [facility] [place] [facility] [address] [id number] [place] [address] 13 Nov, 2014 [facility] [place] [facility] [address] [id number] [place] [address] 16 Sep, 2014 [facility] [place] [facility] [address] [id number] [place] [address] 16 Sep, 2014 [facility] [place] [facility] [address] [id number] [place] [address] Sep, 2014 [facility] [place] [facility] [address] [id number] [place] [address] Sep, 2014 [facility] [place] [facility] [address] [id number] [place] [address] May, [facility] [place] [facility] [address] [id number] [place] [address] May, [facility] [place] [facility] [address] [id number] [place] [address] Apr, [facility] [place] [facility] [address] [id number] [place] [address] Apr, [facility] [place] [facility] [address] [facility] [id number] [place] [address] Mar, [facility] [place] [facility] [address] [id number] [place] [address] Mar, [facility] [place] [facility] [address] [id number] [place] [address] Mar, [facility] [place] [facility] [address] [id number] [place] [address] Mar, [facility] [place] [facility] [address] [id number] [place] [address] Jan, [facility] [place] [facility] [address] [id number] [place] [address] Jan, [facility] [place] [facility] [address] [id number] [place] [address] Jan, [facility] [place] [facility] [address] [id number] [place] [address] Jan, [facility] [place] [facility] [address] [id number] [place] [address] Jan, [facility] [place] [facility] [address] [id number] [place] [address] Jan, [facility] [place] [facility] [address] [id number] [place] [address] Oct, [facility] [place] [facility] [address] [id number] [place] [address] Oct, [facility] [place] [facility] [address] [id number] [place] [address] Sep, [facility] [place] [facility] [address] [id number] [place] [address] Sep, [facility] [place] [facility] [address] [id number] [place] [address] Jun, [facility] [place] [facility] [address] [id number] [place] [address] Jun, [facility] [place] [facility] [address] [id number] [place] [address] Mar, [facility] [place] [facility] [address] [id number] [place] [address] Feb, [facility] [place] [facility] [address] [id number] [place] [address] Feb, [facility] [place] [facility] [address] [id number] [place] [address] Nov, [facility] [place] [facility] [address] [id number] [place] [address] Aug, [facility] [place] [facility] [address] [id number] [place] [address] Aug, [facility] [place] [facility] [address] [id number] [place] [address] Jul, [facility] [place] [facility] [address] [id number] [place] [address] Jul, [facility] [place] [facility] [address] [id number] [place] [address] May, [facility] [place] [facility] [address] [id number] [place] [address] May, [facility] [place] [facility] [address] [id number] [place] [address] May, [facility] [place] [facility] [address] [id number] [place] [address] May, [facility] [place] [facility] [address] [id number] [place] [address] Apr, [facility] [place] [facility] [address] [id number] [place] [address] Feb, [facility] [place] [facility] [address] [id number] [place] [address] Feb, [facility] [place] [facility] [address] [facility] [id number] [place] [address] Jan, [facility] [place] [facility] [address] [id number] [place] [address] Jan, [facility] [place] [facility] [address] [id number] [place] [address] Nov, [facility] [place] [facility] [address] [id number] [place] [address] Oct, [facility] [place] [facility] [address] [facility] [id number] [place] [address] Oct, [facility] [place] [facility] [address] [facility] [id number] [place] [address] Jul, [facility] [place] [facility] [address] [facility] [id number] [address] May, [facility] [id number] [address] Nov, [facility] [address] [facility] [id number] [place] [address] Jun, [facility] [address] [facility] [id number] [place] [address] December, [facility] [address] [facility] [id number] [place] [address] Jul, IMMUNIZATIONS No Known Immunizations SOCIAL HISTORY Never Assessed REASON FOR VISIT EMR-[facility] PLAN OF CARE VITAL SIGNS MEDICATIONS Unknown [...] stents Hospitalization History rectal and vomitting blood 2018
--- NOTE | 2019-02-22 19:42 | Diagnostic Imaging Report ---
Indication: Feet swelling and diaphoresis Time of exam: 7:35 PM Correlation is made to prior study 08/07/2018. The heart is enlarged. There is a zone of linear consolidation in the right lung base suggestive of atelectasis. There are congestive changes in both lungs with prominence of the interstitial markings. There may be a small amount of pleural fluid bilaterally as well. No pneumothorax. Impression: Congestive changes with discoid right basilar atelectasis and small bilateral effusions. Dictated by: Dictated on workstation # [id number]
[2019-02-22] MEDS ORDERED: ASPIRIN E.C. 81 MG (ECOTRIN) TAB PO ONE (19:45)
[2019-02-22] MEDS ORDERED: NS 100 ML (IVPB) BAG IV ONE (20:00)
[2019-02-22] MEDS ORDERED: HOLD METFORMIN - RECEIVED CONTRAST 20 ML VIAL IV SCH (20:00)
[2019-02-22] MEDS ORDERED: IOHEXOL 350 MG/ML 100 ML (OMNIPAQUE 350) VIAL IV ONE (20:00)
[2019-02-22] MEDS ORDERED: fentaNYL INJECTION 100 MCG/2 ML AMP IVP ONE (20:30)
[2019-02-22] MEDS ORDERED: FUROSEMIDE 40 MG/4 ML INJ (LASIX) IVP ONE (21:00)
--- NOTE | 2019-02-22 21:03 | Diagnostic Imaging Report ---
PROCEDURE: CT angiography of the chest with contrast. TECHNIQUE: Multiple contiguous axial images were obtained through the chest after uneventful bolus administration of intravenous contrast. 2D reconstructed CTA MIP acquisitions were also performed. Auto Exposure Controls were utilized during the CT exam to meet ALARA standards for radiation dose reduction. INDICATION: Shortness of air, cough and chest pain. No prior studies are available for comparison. There is good pulmonary arterial opacification. No definite filling defects are seen within the central, lobar or segmental branches. Thoracic aorta is normal in caliber. No dissection is seen. No pericardial fluid. There are moderate-sized bilateral pleural effusions, greater on the right which layers dependently to a thickness of approximately 7.5 cm on the right and 4.3 cm on the left. There is diffuse interlobular septal thickening present. There is some consolidation versus atelectasis in the right middle lobe. Minimal atelectasis in the lingula is also seen. There is some compressive atelectasis in the right lower lobe posteriorly. Upper abdomen is unremarkable. IMPRESSION: 1. No evidence of pulmonary embolism or thoracic aortic dissection. 2. Moderate sized bilateral pleural effusions, right greater. 3. Right middle lobe and lingular atelectasis/consolidation. Dictated by: Dictated on workstation # [id number]
--- NOTE | 2019-02-22 22:00 | NUR ---
SWATI LEONARD admitted to room CU12-1, with an admitting diagnosis of CHF exacerbation, on 02/22/19 from ED via cart, accompanied by staff.SWATI LEONARD introduced to surroundings, call light, bed controls, phone, TV, temperature control, lights, meal times, smoking policy, visitor policy, side rail policy, bathrooms and showers. Patient Rights given to patient in the handbook. SWATI LEONARD verbalizes understanding that [facility] is not responsible for the loss or damage to any personal effects or valuables that are kept in the patients possession during their hospitalization. The following Patient Care Plans were discussed with the patient: Discharge Planning, activity,room orientation, and pain. SWATI LEONARD verbalizes understanding of Interdisciplinary Patient Education. Patient and/or family were informed about the Rapid Response Team and its purpose.
[2019-02-22] MEDS ORDERED: NS IV 1000 ML 1,000 ML IV SCH (22:30)
[2019-02-22] MEDS ORDERED: POTASSIUM CL 10 MEQ/50 ML IVPB (PRE-MIX) IV ONE (22:30)
[2019-02-22] MEDS: oxyCODONE/APAP 7.5-325 MG (PERCOCET 7.5) TABLET PO PRN (22:45)
--- NOTE | 2019-02-22 23:00 | NUR ---
Patient unable to urinate post Lasix administration. Patient with history of BPH. Call to rodger Read to insert Santiago Cath for urinary retention.
[2019-02-23] VITALS (8 sets, daily range): BP systolic 112–165; BP diastolic 60–93
--- NOTE | 2019-02-23 00:30 | NUR ---
Patient called staff to the room c/o "anxiety attack" patient on the side of the bed requesting cold wet washcloths. Call placed to Dr Flor to request something for anxiety. Order for Ativan 0.5mg tablet TID. Reported #2 Troponin results at this time also.
[2019-02-23] MEDS: LORazepam 0.5 MG (ATIVAN) TABLET PO PRN ×3 (00:36→16:20)
[2019-02-23] MEDS: oxyCODONE/APAP 7.5-325 MG (PERCOCET 7.5) TABLET PO PRN ×4 (02:35→21:34)
[2019-02-23 06:24] LABS: BASOPHILS % (AUTO) 0 % (0-10); EOSINOPHILS # (AUTO) 0.1 10^3/uL (0.0-0.3); EOSINOPHILS % (AUTO) 1 % (0-10); HEMATOCRIT 37 % (40-54); HEMOGLOBIN 11.1 G/DL (13.3-17.7); LYMPHOCYTES # (AUTO) 1.4 X 10^3 (1.0-4.0); LYMPHOCYTES % (AUTO) 13 % (12-44); MEAN CORPUSCULAR HEMOGLOBIN 25 PG (25-34); MEAN CORPUSCULAR HGB CONC 30 G/DL (32-36); MEAN CORPUSCULAR VOLUME 83 FL (80-99); MEAN PLATELET VOLUME 9.2 FL (7.4-10.4); MONOCYTES # (AUTO) 0.7 X 10^3 (0.0-1.0); MONOCYTES % (AUTO) 7 % (0-12); NEUTROPHILS # (AUTO) 8.5 X 10^3 (1.8-7.8); NEUTROPHILS % (AUTO) 79 % (42-75); PLATELET COUNT 269 10^3/uL (130-400); RED CELL DISTRIBUTION WIDTH 18.3 % (10.0-14.5); WHITE BLOOD COUNT 10.7 10^3/uL (4.3-11.0)
[2019-02-23] MEDS: KCL 20 MEQ TAB (K-DUR) PO SCH (06:41)
[2019-02-23] MEDS: FUROSEMIDE 40 MG/4 ML INJ (LASIX) IV SCH (06:41)
[2019-02-23 06:48] LABS: ALBUMIN 3.5 GM/DL (3.2-4.5); BILIRUBIN,TOTAL 0.4 MG/DL (0.1-1.0); CREATININE SERUM 1.5 MG/DL (0.60-1.30); POTASSIUM 3.4 MMOL/L (3.6-5.0); TOTAL PROTEIN 6.3 GM/DL (6.4-8.2)
[2019-02-23] MEDS ORDERED: PARO12.523 PO (09:00)
[2019-02-23] MEDS ORDERED: LISI10TA2 PO (09:00)
[2019-02-23] MEDS ORDERED: PRAZ5CAP2 PO (09:00)
[2019-02-23] MEDS ORDERED: DOXY25TA50 PO (09:00)
[2019-02-23] MEDS ORDERED: POTA10TA10 PO (09:00)
[2019-02-23] MEDS ORDERED: SUCR1TAB PO (09:00)
[2019-02-23] MEDS ORDERED: PARO37.511 PO (09:00)
[2019-02-23] MEDS ORDERED: FURO20TA4 PO (09:00)
[2019-02-23] MEDS ORDERED: ASPI-983 PO (09:00)
[2019-02-23] MEDS ORDERED: FISH400C2 PO (09:01)
--- NOTE | 2019-02-23 09:13 | NUR ---
SPOKE WITH THE PATIENT ABOUT HIS MEDICATIONS. HE HAD HIS BOTTLES AND I COMPARED THEM WITH THE EXT MED HX. HIS PAXIL 12.5MG STATES AM HOWEVER HE TAKES IT HS HIS PAXIL 37.5MG STATES HS HOWEVER HE TAKES IT AM HE HAS A BOTTLE OF TRAMADOL FROM NOVEMBER, HE STATES HE TAKES IT PRN BUT NOT VERY OFTEN. HE ALSO HAS A BOTTLE OF LORAZEPAM HOWEVER HE STATES HE IS NO LONGER USING IT. IT IS ALMOST EMPTY AND HAS NOT BEEN FILLED RECENTLY, I DID NOT INCLUDE IT ON THE MED REC AT THIS TIME. OTC MEDS: MELATONIN HS FISH OIL/BORAGE/FLAX DAILY TYLENOL PRN ASPIRIN 81MG DAILY DULCOLAX PRN CAFFEINE PRN BENADRYL PRN SLEEP AID PRN
--- NOTE | 2019-02-23 10:43 | Consultation-Cardiology ---
HPI-Cardiology Cardiology Consultation: Date of Consultation 02/23/19 Date of Admission Attending Physician Felicitas Flor DO Admitting Physician [facility] Consulting Physician Jose CHANDRA MD HPI: Time Seen by a Provider: 09:10 Chief Complaint: shortness of breath this is a 68-year-old gentleman with history of active smoking, diabetes, hypertension, hyperlipidemia, severe PAD, ischemic cardiomyopathy, CAD, he presents with shortness of breath. He denied any chest pain. He complained of foot discomfort as well. Patient improved significantly after he was given Lasix and a Santiago catheter was placed. Previously, I first saw as an inpatient consultation on 07/09/2018. He presented with GI bleeding with severe anemia. EGD demonstrated large peptic ulcer with no bleeding. He was on aggressive PPI. He received blood transfusions. Echocardiogram done on 07/09/2018 showed an EF of 2530 percent. Grade 2 diastolic dysfunction. Hypokinesis of the basal/mid anterior septal myocardium. PA pressure 46 mmHg. Possible atrial septal defect. Mild to moderate aortic regurgitation. Dilated left atrium of 4.4 cm. Coronary angiography was done on 07/16/2018 for acute systolic congestive heart failure and new onset cardiomyopathy. Coronary angiography revealed severe stenosis in the mid/distal LAD. Stenosis severity of 90 percent. Moderate ostial OM1 stenosis was noted. There is moderate stenosis in mid left circumflex artery. Chronic total occlusion of the proximal RCA with distal reconstitution and good collaterals from the left circumflex artery. Abdominal aortogram showed [id number] disease in the right common/external iliac artery. Very likely occlusive disease in the mid right external iliac artery. Filling of the deep femoral artery is noted however there is no filling of the right SFA. There is faint reconstitution of the popliteal artery. This likely suggests a long occlusive segment from the right external iliac artery to the popliteal artery. Lower extremity is supplied by collaterals from the deep femoral artery. There is moderate to severe disease in the left common iliac artery with mild diffuse disease in the left external iliac artery. Severe diffuse disease is noted in the proximal left SFA with total occlusion in the distal SFA. There is a short segment of occlusion with reconstitution in the popliteal artery. FFR of the LAD was done which was 0.76. FFR of the first OM artery was 0.87. FFR of the left circumflex artery was 0.84. Therefore PCI was deferred of the mid left circumflex artery and OM1. The mid/distal LAD was treated with 2 long drug-eluting stent. The first stent that was placed in the distal LAD was 2.5 x 38 mm stent deployed at 18 holly. A second stent 2.5 x 15 mm drug-eluting stent was overlapped with the previous stent. The stent was deployed at 10 holly. Postdilatation was done at 18-20 holly. Further postdilatation was done with an NC Quantum 3.0 x 15 mm noncompliant balloon. Excellent results were noted. Patient will be given dual antiplatelet therapy, statin, lisinopril, beta [place]. Lifevest was given for primary prevention of sudden cardiac which was later dced since EF on Echocardiogram was 40-45%. Peripheral intervention on right and left SFA in 11/2018. Review of Systems-Cardiology Review of Systems Constitutional: As described under HPI; No As described under HPI, No no symptoms reported, No chills, No fever, No lightheadedness Eyes: No As described under HPI, No no symptoms reported, No blindness, No blurred vision, No contact lenses, No drainage, No decreased acuity, No foreign body sensation, No pain, No vision change Ears/Nose/Throat: No As described under HPI, No no symptoms reported, No chronic hearing loss, No ear discharge, No ear pain, No nasal drainage, No u lcerations Respiratory: No no symptoms reported; As described under HPI; No As described under HPI, No cough, No orthopnea; shortness of breath; No SOB with excertion Cardiovascular: No no symptoms reported; As described under HPI; No As described under HPI, No chest pain, No edema, No irregular heart rate, No lightheadedness, No palpitations Gastrointestinal: No no symptoms reported, No As described under HPI, No abdomen distended, No abdominal pain, No blood streaked bowels, No constipation, No diarrhea, No nausea, No vomiting, No stool coloration changes Genitourinary: No As described under HPI, No burning, No dysuria, No discharge, No frequency, No flank pain, No hematuria, No urgency Musculoskeletal: As describe under HPI, other (foot pain.) Skin: No rash, No skin related problems, No ulcerations Psychiatric/Neurological: No anxiety, No depression, No seizure, No focal weakness, No syncope Hematologic: No bleeding abnormalities [id number] Hx Patient Social History Alcohol Use: Denies Use Recreational Drug Use: No Type Used: Cigarettes 2nd Hand Smoke Exposure: No Recent Foreign Travel: No Recent Infectious Disease Expo: No Hospitalization with Isolation: Denies Immunizations Up To Date Tetanus Booster (TDap): Unknown Date of Pneumonia Vaccine: Dec 02, 2016 Date of Influenza Vaccine: May 24, 2018 Past Medical History PMH As described under Assessment. Allergies and Home Medications Allergies Coded Allergies: No Known Drug Allergies (Verified , 07/08/18) Home Medications Acetaminophen 500 Mg Tablet, 500-1,000 MG PO Q6H PRN for PAIN-MILD, (Reported) Albuterol Sulfate 6.7 Gm Hfa.aer.ad, 2 PUFF INH Q6H PRN for SHORTNESS OF BREATH, (Reported) Aspirin 81 Mg Tablet.dr, 81 MG PO DAILY, (Reported) Atorvastatin Calcium 80 Mg Tablet, 80 MG PO DAILY, (Reported) Bisacodyl 5 Mg Tablet.dr, 10 MG PO DAILY PRN for CONSTIPATION-4TH LINE, (Reported) Budesonide/Formoterol Fumarate 10.2 Gm Hfa.aer.ad, 2 PUFF IH BID, (Reported) Caffeine 200 Mg Tablet, 200-400 MG PO BID PRN for DROWSINESS, (Reported) Diphenhydramine HCl 25 Mg Tablet, 25 MG PO BID PRN for ALLERGIES/ANXIETY, (Reported) Doxylamine Succinate 25 Mg Tablet, 25 MG PO HS PRN for SLEEP, (Reported) Finasteride 5 Mg Tablet, 5 MG PO DAILY, (Reported) Fish Oil/Borage/Flax/Om3,6,9#1 400 Mg Capsule, 1 CAP PO TID, (Reported) Furosemide 20 Mg Tablet, 20 MG PO DAILY, (Reported) Hydroxyzine HCl 25 Mg Tablet, 25 MG PO TID PRN for ANXIETY, (Reported) Insulin Detemir 100 Unit/1 Ml Insuln.pen, 50 UNIT SQ HS, (Reported) Lisinopril 10 Mg Tablet, 10 MG PO DAILY, (Reported) Melatonin/Lemon [place] Extr 1 Each Tablet, 1 TAB PO HS, (Reported) Metoprolol Succinate 25 Mg Tab.er.24h, 25 MG PO BID, (Reported) Mirtazapine 30 Mg Tablet, 30 MG PO HS, (Reported) Pantoprazole Sodium 40 Mg Tablet.dr, 40 MG PO BID, (Reported) Paroxetine HCl 37.5 Mg Tab.er.24h, 37.5 MG PO DAILY, (Reported) Paroxetine HCl 12.5 Mg Tab.er.24h, 12.5 MG PO HS, (Reported) Potassium Chloride 10 Meq Tablet.er, 10 MEQ PO DAILY, (Reported) Prasugrel HCl 10 Mg Tablet, 10 MG PO DAILY, (Reported) Prazosin HCl 5 Mg Capsule, 5 MG PO HS, (Reported) Sucralfate 1 Gm Tablet, 1 GM PO ACHS, (Reported) Tramadol HCl 50 Mg Tablet, 50 MG PO TID PRN for PAIN-MODERATE, (Reported) Umeclidinium [place] 62.5 Mcg Blst.w.dev, 1 PUFF INH DAILY, (Reported) Patient Home Medication List Home Medication List Reviewed: Yes Physical Exam-Cardiology Physical Exam Vital Signs/I&O 02/23/19 02/23/19 02/23/19 02/23/19 01:00 02:00 03:35 03:35 Temp 96.5 Pulse 107 100 Resp 22 B/P (MAP) 112/60 (77) Pulse Ox 96 92 O2 Delivery Nasal Cannula Nasal Cannula Nasal Cannula O2 Flow Rate 2.00 2.00 2.00 02/23/19 02/23/19 02/23/19 02/23/19 04:00 07:00 08:00 08:00 Pulse 94 92 92 Resp 12 14 B/P (MAP) 129/71 (90) 124/74 (91) Pulse Ox 91 92 O2 Delivery Nasal Cannula Nasal Cannula Nasal Cannula O2 Flow Rate 2.00 2.00 2.00 02/23/19 02/23/19 02/23/19 09:00 11:30 12:00 Temp 96.7 Pulse Ox 92 92 O2 Delivery Nasal Cannula Nasal Cannula O2 Flow Rate 2.00 2.00 02/23/19 00:00 Intake Total 200 ml Balance 200 ml Capillary Refill : Less Than 3 Seconds Constitutional: appears stated age, AAO x 3; No apparent distress; well- developed, well-nourished HEENT: PERRL; No normal ENT inspection, No TMs normal, No pharynx normal, No scleral icterus (R), No scleral icterus (L), No pale conjunctivae (R), No pale conjunctivae (L), No photophobia, No TM abnormal (R), No TM abnormal (L), No pharyngeal erythema, No tonsillar exudate, No other, No discharge, No EOMI; hearing is well preserved; No hard of hearing; oral hygience is good; No ulceration, No xanthelasmas are seen Neck: No non-tender, No full range of motion, No supple, No normal inspection, No carotid bruit, No limited range of motion, No lymphadenopathy (R), No lymphadenopathy (L), No tender lateral, No tender midline, No thyromegaly, No other; carotid pulses are 2 + bilaterally; No with good upstrokes Respiratory: chest is bilaterally symmetric, lungs clear to auscultation Cardiovascular: regular rate-rhythm; No irregularly irregular, No extra beats, No parasternal heave is noted, No JVD, No edema, No bradycardia, No tachycardia, No point of maximal impulse, No cardiac thrills are palpable; S1 and S2; No gallop/S3, No gallop/S4, No diastolic murmur, No systolic murmur, No friction rub, No click, No other Gastrointestinal: No tender, No soft, No round, No distended, No pulsatile mass, No organomegaly, No guarding, No rebound, No tenderness, No hernia, No mass, No audible bowel sounds, No abnormal bowel sounds, No abdominal bruits, No spleenomegaly, No other Rectal: deferred Extremities: No normal range of motion, No non-tender, No normal inspection, No pedal edema, No calf tenderness, No normal capillary refill, No pelvis stable, No calf tenderness, No inflammation, No pedal edema, No slow capillary refill, No swelling, No other, No abrasion, No clubbing, No cyanosis, No ecchymosis, No laceration, No no lower extremity edema bilateral, No significant edema, No tenderness, No wound Neurologic/Psychiatric: no motor/sensory deficits, alert, normal mood/affect, oriented x 3, power is 5/5 both on sides Skin: No rash, No ulcerations Data Review Labs Laboratory Tests 02/22/19 18:40: White Blood Count 9.2, Red Blood Count 4.88, Hemoglobin 12.1L, Hematocrit 40, Mean Corpuscular Volume 82, Mean Corpuscular Hemoglobin 25, Mean Corpuscular Hemoglobin Concent 30L, Red Cell Distribution Width 18.0H, Platelet Count 317, Mean Platelet Volume 8.7, Neutrophils (%) (Auto) 83H, Lymphocytes (%) (Auto) 9L, Monocytes (%) (Auto) 7, Eosinophils (%) (Auto) 1, Basophils (%) (Auto) 0, Neutrophils # (Auto) 7.7, Lymphocytes # (Auto) 0.8L, Monocytes # (Auto) 0.6, Eosinophils # (Auto) 0.1, Basophils # (Auto) 0.0, Sodium Level 142, Potassium Level 3.3L, Chloride Level 96L, Carbon Dioxide Level 39H, Anion Gap 7, Blood Urea Nitrogen 12, Creatinine 1.42H, Estimat Glomerular Filtration Rate 49, BUN/Creatinine Ratio 8, Glucose Level 109H, Calcium Level 9.0, Corrected Calcium 9.2, Total Bilirubin 0.5, Aspartate Amino Transf (AST/SGOT) 31, Alanine Aminotransferase (ALT/SGPT) 25, Alkaline Phosphatase 122, Troponin I 0.059H, B- Type Natriuretic Peptide 2629.1H, Total Protein 6.8, Albumin 3.8, Lipase 6L 02/22/19 23:45: Troponin I 0.074H 02/23/19 05:53: White Blood Count 10.7, Red Blood Count 4.46, Hemoglobin 11.1L, Hematocrit 37L, Mean Corpuscular Volume 83, Mean Corpuscular Hemoglobin 25, Mean Corpuscular Hemoglobin Concent 30L, Red Cell Distribution Width 18.3H, Platelet Count 269, Mean Platelet Volume 9.2, Neutrophils (%) (Auto) 79H, Lymphocytes (%) (Auto) 13, Monocytes (%) (Auto) 7, Eosinophils (%) (Auto) 1, Basophils (%) (Auto) 0, Neutrophils # (Auto) 8.5H, Lymphocytes # (Auto) 1.4, Monocytes # (Auto) 0.7, Eosinophils # (Auto) 0.1, Basophils # (Auto) 0.0, Sodium Level 140, Potassium Level 3.4L, Chloride Level 96L, Carbon Dioxide Level 32, Anion Gap 12, Blood Urea Nitrogen 14, Creatinine 1.50H, Estimat Glomerular Filtration Rate 46, BUN/Creatinine Ratio 9, Glucose Level 189H, Calcium Level 9.0, Corrected Calcium 9.4, Total Bilirubin 0.4, Aspartate Amino Transf (AST/SGOT) 29, Alanine Aminotransferase (ALT/SGPT) 23, Alkaline Phosphatase 128, Troponin I 0.077H, Total Protein 6.3L, Albumin 3.5 ECG Impression ECG Initial ECG Rhythm: Normal Sinus Initial ECG Impression: Nonspecific Changes A/P-Cardiology Assessment/Admission Diagnosis 1. Type II myocardial infarction likely secondary to congestive heart failure, 2. Acute on chronic systolic congestive heart failure, 3. Urinary retention, 4. Ischemic cardiomyopathy, 5. CAD, history of PCI to LAD, 6. PAD with previous history of lower extremity intervention, 7. History of GI bleeding, 8. Hypertension, 9. Hyperlipidemia, 10. Chronic kidney disease. Plan 1. Type II myocardial infarction likely secondary to congestive heart failure, mildly positive troponin with no significant elevation. Could be secondary to acute congestive heart failure and chronic kidney disease. Patient may require nuclear stress testing before discharge. I will defer to Dr. Zaman who will take over cardiology care later this afternoon. Patient is already on optimal medical therapy including dual antiplatelet therapy and statin. 2. Acute on chronic systolic congestive heart failure, elevated BNP. Echocardiogram done in November 2018 showed an EF of 40-45 percent. Agree with Lasix. 3. Urinary retention, Dr. Byrne has been consulted. 4. Ischemic cardiomyopathy, continue beta [place], ROSEANNA inhibitor. 5. CAD, history of PCI to LAD, continue dual antiplatelet therapy. Continue beta [place], ROSEANNA inhibitor and statin therapy. 6. PAD with previous history of lower extremity intervention, already on dual antiplatelet therapy. 7. History of GI bleeding, no evidence for active bleeding. 8. Hypertension, beta [place]ia, ROSEANNA inhibitor 9. Hyperlipidemia, statin therapy 10. Chronic kidney disease. Complicated patient with numerous cardiac and medical pathologies. Dr. Zaman is taking over cardiology care late afternoon today. Thank you for your consultation. Please call me if you have any questions. Kusum Chandra MD, FACP, FACC, FSCAI, FHRS, CCDS Interventional Cardiology Cardiac Electrophysiology Vascular Medicine and Endovascular Interventions Clinical Quality Measures DVT/VTE Risk/Contraindication: Risk Factor Score Per Nursin RFS Level Per Nursing on Admit: 4+=Very High Jose CHANDRA MD Feb 23, 2019 10:43
--- NOTE | 2019-02-23 11:37 | CONSULTATION REPORT ---
DATE OF SERVICE: 02/23/2019 ATTENDING PHYSICIAN: Dr. Huff/Dr. Flor. SUMMARY: A 68-year-old white male admitted for congestive heart failure exacerbation and has multiple medical problems among which congestive heart failure and coronary artery disease and peripheral vascular disease. He was found to have frequency, urgency worse to retention when given Lasix. Catheter was inserted. There was discovery of 3 liters of urine. The patient describes a long history of voiding symptoms for which, he was taking only Proscar. No Flomax or other alpha-adrenergic blockers. No previous history of UTIs or other surgeries. He had previous stents put in his heart and peripherally. IMPRESSION: Urinary retention, benign prostatic hyperplasia and/or neurogenic bladder. PLAN: Leave the catheter in. Add Flomax to the Proscar. We will do cystoscopy at bedside under local on Thursday and manage accordingly. Plan was fully explained to the patient. Job ID: [id number] DocumentID: [id number] Dictated Date: 02/23/2019 11:23:[address] Service Date: 02/23/2019 11:37:04 Dictated By: VIDHI MANCERA MD
--- NOTE | 2019-02-23 11:43 | History & Physical-Hospitalist ---
History of Present Illness HPI/Chief Complaint Chief complaint: shortness of breath History of present illness: This is a 68-year-old white male clinic patient of [facility] with a past medical history of active smoking, CAD with previous interventions, PVD with previous interventions, HTN and chronic renal insufficiency who presented to the ER with shortness of breath and chest pain found to have elevated troponin elevated BNP with volume overload and urinary retention requiring Santiago catheter after Lasix administration. Urology has been consulted along with cardiology and patient feeling much better and he seems to be very pleased with how much better he is feeling. I have reviewed his medications and his current labs and imaging scans and cardiology consultation along with urology consultation. He is stable and will be able to be transferred to the floor for continued diuresis and supportive care. Source: patient, RN/MD, old records Exam Limitations: no limitations Date Seen 02/23/19 Time Seen by a Provider: 10:00 Attending Physician Felicitas Flor DO [facility] Referring Physician Date of Admission Feb 22, 2019 at 20:50 Home Medications & Allergies Home Medications Reviewed patient Home Medication Reconciliation performed by pharmacy medication reconciliations aviation electronics technician and/or nursing. Patients Allergies have been reviewed. Allergies Allergies Coded Allergies No Known Drug Allergies ([id number]/18) Past [id number]-[id number] Hx Past Med/Social Hx: Reviewed Nursing Past Med/Soc Hx, Reviewed and Corrections made Patient Social History Marrital Status: single Alcohol Use: Denies Use Alcohol Beverage of Choice: Beer Recreational Drug Use: No Smoking Status: Current Everyday Smoker Type Used: Cigarettes 2nd Hand Smoke Exposure: No Recent Foreign Travel: No Contact w/other who traveled: No Recent Hopitalizations: Yes (HEART CATH) Recent Infectious Disease Expo: No Immunizations Up To Date Tetanus Booster (TDap): Unknown Date of Pneumonia Vaccine: Dec 02, 2016 Date of Influenza Vaccine: May 24, 2018 Seasonal Allergies Seasonal Allergies: No Past Medical History Surgeries: Abdominal, Cardiac, Coronary Stent Respiratory: COPD Currently Using CPAP: No Currently Using BIPAP: No Cardiac: Atrial Fibrillation, Cardiomyopathy, Hypertension Sexually Transmitted Disease: No HIV/AIDS: No Genitourinary: Benign Prostatic Hyperpl, Kidney Infection, Prostate Problems, Renal Failure Gastrointestinal: Gastrointestinal Bleed, Irritable Bowel Musculoskeletal: Back Injury Endocrine: Diabetes, Insulin dep Loss of Vision: Bilateral Hearing Impairment: Denies Psychosocial: Anxiety, PTSD History of Blood Disorders: No Adverse Reaction to Blood Cade: No Family History No Pertinent Family Hx Review of Systems Constitutional: see HPI, malaise, weakness EENTM: no symptoms reported Respiratory: cough, dyspnea on exertion, short of breath, wheezing Cardiovascular: chest pain Gastrointestinal: no symptoms reported Genitourinary: decreased output, hematuria, hesitancy Musculoskeletal: no symptoms reported Skin: no symptoms reported Psychiatric/Neurological: No Symptoms Reported All Other Systems Reviewed Negative Unless Noted: Yes Physical Exam Physical Exam Vital Signs Vital Signs - First Documented 02/22/19 18:10 Temp 97.3 Pulse 95 Resp 20 B/P (MAP) 143/96 (112) Pulse Ox 99 O2 Delivery Nasal Cannula O2 Flow Rate 4.00 Capillary Refill : Less Than 3 Seconds Height, Weight, BMI Height: 5'8.00" Weight: 195lbs. 2.0oz. 88.571255py; 30.1 BMI Method:Stated General Appearance: WD/WN, Anxious, Chronically ill, Mild Distress Eyes: Right Eye Normal Inspection, Right Eye PERRL HEENT: PERRL/EOMI, Normal ENT Inspection, Pharynx Normal, Moist Mucous Membranes Neck: Full Range of Motion, Normal Inspection, Non Tender Respiratory: Chest Non Tender, No Accessory Muscle Use, No Respiratory Distress, Decreased Breath Sounds, Wheezing Cardiovascular: Regular Rate, Rhythm, No Gallop, No JVD, No Murmur, Normal Peripheral Pulses Gastrointestinal: Normal Bowel Sounds, No Organomegaly, No Pulsatile Mass, Non Tender, Soft Back: Normal Inspection, No CVA Tenderness, No Vertebral Tenderness Extremity: Normal Capillary Refill, Normal Inspection, Normal Range of Motion, Non Tender, No Calf Tenderness, Pedal Edema Neurologic/Psychiatric: Alert, Oriented x3, No Motor/Sensory Deficits, Normal Mood/Affect Skin: Normal Color, Warm/Dry Lymphatic: No Adenopathy Results Results/Procedures Labs Laboratory Tests 02/22/19 18:40 02/23/19 05:53 Patient resulted labs reviewed. Assessment/Plan Admission Diagnosis Assessment: 1. TN Type II per Cardiology 2. Acute on chronic systolic congestive heart failure, 3. Urinary retention requiring Santiago catheter 4. Ischemic cardiomyopathy, 5. CAD with previous interventions 6. PAD with previous interventions 7. History of GI bleeding 8. Hypertension 9. Hyperlipidemia 10. Chronic kidney disease Plan: Appreciate Dr Byrne and Cardiology Monitor closely Home meds O2 Nebs Admission Status: Observation Diagnosis/Problems Diagnosis/Problems (1) Pulmonary edema cardiac cause Status: Acute (2) Acute and chronic respiratory failure with hypoxia Status: Acute (3) Diabetes mellitus, type 2 Status: Chronic Qualifiers: Diabetes mellitus termite inspector insulin use: without correction use Diabetes mellitus complication status: with circulatory complication Diabetes mellitus complication detail: with other circulatory complications Qualified Codes: E11.59 - Type 2 diabetes mellitus with other circulatory complications (4) BPH (benign prostatic hyperplasia) Status: Chronic Qualifiers: Lower urinary tract symptom presence: symptoms present Lower urinary tract symptom detail: incomplete bladder emptying Qualified Codes: N40.1 - Benign prostatic hyperplasia with lower urinary tract symptoms; R39.14 - Feeling of incomplete bladder emptying (5) Urinary retention due to benign prostatic hyperplasia Status: Acute (6) PTSD (post-traumatic stress disorder) Status: Chronic (7) COPD (chronic obstructive pulmonary disease) Status: Chronic Qualifiers: COPD type: unspecified COPD Qualified Codes: J44.9 - Chronic obstructive pulmonary disease, unspecified (8) GERD (gastroesophageal reflux disease) Status: Chronic Qualifiers: Esophagitis presence: without esophagitis Qualified Codes: K21.9 - Gastro- esophageal reflux disease without esophagitis Clinical Quality Measures DVT/VTE Risk/Contraindication: Risk Factor Score Per Nursin RFS Level Per Nursing on Admit: 4+=Very High FRANCA LAO DO Feb 23, 2019 11:43
[2019-02-23] MEDS ORDERED: PATIENT MAY USE OWN MED,SINGLE MED PO SCH ×2 (12:30→21:00)
[2019-02-23] MEDS: TAMSULOSIN 0.4 MG (FLOMAX) CAP PO SCH (17:42)
[2019-02-23] MEDS ORDERED: RT-ALBUTEROL SULF 2.5 MG/3 ML PRE-MIX VIAL INH PRN (19:00)
[2019-02-23] MEDS ORDERED: BISACODYL 5 MG (DULCOLAX) TABLET PO PRN (19:00)
[2019-02-23] MEDS ORDERED: CALCIUM CARBONATE 500 MG (TUMS) TAB.CHEW PO PRN (19:00)
[2019-02-23] MEDS ORDERED: HYDROcodone/APAP 5 MG/325 MG (LORTAB) TAB PO PRN (19:00)
[2019-02-23] MEDS ORDERED: ONDANSETRON 4 MG (ZOFRAN) ORAL DISSOLVE TAB PO PRN (19:00)
[2019-02-23] MEDS ORDERED: ONDANSETRON 4 MG/2 ML (SDV) Z0FRAN IVP PRN ×2 (19:00→19:15)
[2019-02-23] MEDS ORDERED: DOCUSATE SODIUM 100 MG (COLACE) CAP PO PRN (19:00)
[2019-02-23] MEDS ORDERED: diphenhydrAMINE 25 MG TAB (BENADRYL) PO PRN (19:00)
[2019-02-23] MEDS ORDERED: NON-FORMULARY MEDICATION 1 EA EA (Doxylamine Succinate (Sleep Aid) 25 MG) PO PRN (19:00)
[2019-02-23] MEDS ORDERED: LOPERAMIDE 2 MG (IMODIUM) TABLET PO PRN (19:00)
[2019-02-23] MEDS ORDERED: ALPRAZolam 0.25 MG (XANAX) TAB PO PRN (19:00)
[2019-02-23] MEDS ORDERED: NON-FORMULARY MEDICATION 1 EA EA (Hydroxyzine HCl 25 MG) PO PRN (19:00)
[2019-02-23] MEDS ORDERED: NON-FORMULARY MEDICATION 1 EA EA (Acetaminophen (Tylenol Extra Strength) 500 MG) PO PRN (19:00)
[2019-02-23] MEDS ORDERED: ACETAMINOPHEN 500 MG TAB (TYLENOL) PO PRN (19:15)
[2019-02-23] MEDS ORDERED: PATIENT MAY USE OWN MEDS, ALL MC SCH (20:30)
[2019-02-23] MEDS ORDERED: NON-FORMULARY MEDICATION 1 EA EA (Insulin Detemir (Levemir Flextouch) 50 UNIT) SQ SCH (21:00)
[2019-02-23] MEDS ORDERED: NON-FORMULARY MEDICATION 1 EA EA (Prazosin HCl 5 MG) PO SCH (21:00)
[2019-02-23] MEDS ORDERED: NON-FORMULARY MEDICATION 1 EA EA (Budesonide/Formoterol Fumarate (Symbicort 160-4.5 Mcg In IH SCH (21:00)
[2019-02-23] MEDS ORDERED: NON-FORMULARY MEDICATION 1 EA EA (Mirtazapine 30 MG) PO SCH (21:00)
[2019-02-23] MEDS ORDERED: NON-FORMULARY MEDICATION 1 EA EA (Melatonin/Lemon Balm Leaf Extr (Melatonin-Lemon Balm Tab PO SCH (21:00)
[2019-02-23] MEDS: MELATONIN 3 MG TABLET PO SCH (21:22)
[2019-02-23] MEDS: PANTOPRAZOLE 40 MG (PROTONIX) TAB PO SCH (21:22)
[2019-02-23] MEDS: SUCRALFATE 1 GM (CARAFATE) TAB PO SCH (21:23)
[2019-02-23] MEDS: MIRTAZAPINE 15 MG (REMERON) TAB PO SCH (21:23)
[2019-02-23] MEDS: SENNA W/DOCUSATE (SENOKOT S) TABLET PO SCH (21:24)
[2019-02-23] MEDS: PRAZOSIN 5 MG CAPSULE PO SCH (21:24)
[2019-02-23] MEDS: PAROXETINE 12.5 MG PO SCH (21:25)
[2019-02-23] MEDS: RT-ADVAIR HFA 115/21 MCG PER PUFF IH SCH (22:43)
[2019-02-24 04:00] VITALS: BP 122/60
[2019-02-24 05:55] LABS: BASOPHILS % (AUTO) 0 % (0-10); EOSINOPHILS # (AUTO) 0.3 10^3/uL (0.0-0.3); EOSINOPHILS % (AUTO) 4 % (0-10); HEMATOCRIT 36 % (40-54); HEMOGLOBIN 10.6 G/DL (13.3-17.7); LYMPHOCYTES # (AUTO) 1.3 X 10^3 (1.0-4.0); LYMPHOCYTES % (AUTO) 16 % (12-44); MEAN CORPUSCULAR HEMOGLOBIN 25 PG (25-34); MEAN CORPUSCULAR HGB CONC 29 G/DL (32-36); MEAN CORPUSCULAR VOLUME 84 FL (80-99); MEAN PLATELET VOLUME 8.8 FL (7.4-10.4); MONOCYTES # (AUTO) 0.6 X 10^3 (0.0-1.0); MONOCYTES % (AUTO) 8 % (0-12); NEUTROPHILS # (AUTO) 5.5 X 10^3 (1.8-7.8); NEUTROPHILS % (AUTO) 72 % (42-75); PLATELET COUNT 274 10^3/uL (130-400); RED CELL DISTRIBUTION WIDTH 18.3 % (10.0-14.5); WHITE BLOOD COUNT 7.7 10^3/uL (4.3-11.0)
[2019-02-24] MEDS: PANTOPRAZOLE 40 MG (PROTONIX) TAB PO SCH ×2 (06:11→20:58)
[2019-02-24] MEDS: KCL 20 MEQ TAB (K-DUR) PO SCH (06:11)
[2019-02-24] MEDS: SUCRALFATE 1 GM (CARAFATE) TAB PO SCH ×4 (06:11→20:58)
[2019-02-24] MEDS: FUROSEMIDE 40 MG/4 ML INJ (LASIX) IV SCH (06:11)
[2019-02-24 06:23] LABS: ALBUMIN 3.4 GM/DL (3.2-4.5); BILIRUBIN,TOTAL 0.4 MG/DL (0.1-1.0); CREATININE SERUM 1.46 MG/DL (0.60-1.30); POTASSIUM 3.7 MMOL/L (3.6-5.0); TOTAL PROTEIN 5.8 GM/DL (6.4-8.2)
[2019-02-24] MEDS: RT-ADVAIR HFA 115/21 MCG PER PUFF IH SCH ×2 (07:41→21:25)
[2019-02-24] MEDS: UMECLIDINIUM BROMIDE (INCRUSE ELLIPTA) 7'S IH SCH (07:41)
[2019-02-24 08:00] VITALS: BP 156/70
[2019-02-24] MEDS: PRASUGREL 10 MG (EFFIENT) TABLET PO SCH (08:40)
[2019-02-24] MEDS: ATORVASTATIN 80 MG (LIPITOR) TABLET PO SCH (08:40)
[2019-02-24] MEDS: FINASTERIDE (PROSCAR) 5 MG TAB PO SCH (08:40)
[2019-02-24] MEDS: PAROXETINE 37.5 MG PO SCH (08:40)
[2019-02-24] MEDS: ASPIRIN E.C. 81 MG (ECOTRIN) TAB PO SCH (08:40)
[2019-02-24] MEDS: SENNA W/DOCUSATE (SENOKOT S) TABLET PO SCH ×2 (08:41→20:58)
[2019-02-24] MEDS ORDERED: PAROXETINE HCL 37.5 MG PO SCH (09:00)
[2019-02-24] MEDS ORDERED: KCL 10 MEQ TAB (MICRO K) PO SCH (09:00)
[2019-02-24] MEDS ORDERED: PRASUGREL HCL 10 MG PO SCH (09:00)
--- NOTE | 2019-02-24 09:27 | Progress Note-Urology ---
Progress Note-Urology Progress Notes/Assess & Plan Progress/Assessment & Plan CYSTOSCOPY TOMORROW BEDSIDE, FULLY EXPLAINED Final Diagnosis URINE RETENTION VIDHI MANCERA MD Feb 24, 2019 09:27
--- NOTE | 2019-02-24 11:31 | Progress Note-Hospitalist ---
Subjective HPI/CC On Admission Date Seen by Provider: Feb 24, 2019 Time Seen by Provider: 10:30 Chief complaint: shortness of breath History of present illness: This is a 68-year-old white male clinic patient of [facility] with a past medical history of active smoking, CAD with previous interventions, PVD with previous interventions, HTN and chronic renal insufficiency who presented to the ER with shortness of breath and chest pain found to have elevated troponin elevated BNP with volume overload and urinary retention requiring Santiago catheter after Lasix administration. Urology has been consulted along with cardiology and patient feeling much better and he seems to be very pleased with how much better he is feeling. I have reviewed his medications and his current labs and imaging scans and cardiology consultation along with urology consultation. He is stable and will be able to be transferred to the floor for continued diuresis and supportive care. Subjective/Events-last exam Patient doing much better Cystoscopy planned for tomorrow per urology Using inhalers Bowel movements are regular Checked meds and labs Doing much better Review of Systems Pulmonary: Dyspnea Genitourinary: Retention Objective Exam Vital Signs Vital Signs Date Time Temp Pulse Resp B/P (MAP) Pulse Ox O2 Delivery O2 Flow Rate FiO2 02/24/19 09:04 Room Air 2.00 02/24/19 08:00 96.2 102 20 156/70 (98) 93 Capillary Refill : Less Than 3 Seconds General Appearance: WD/WN, Anxious, Chronically ill, Mild Distress HEENT: PERRL/EOMI, Normal ENT Inspection, Pharynx Normal, Moist Mucous Membranes Neck: Full Range of Motion, Normal Inspection, Non Tender Respiratory: Chest Non Tender, No Accessory Muscle Use, No Respiratory Distress, Crackles, Decreased Breath Sounds, Wheezing Cardiovascular: Regular Rate, Rhythm, No Gallop, No JVD, No Murmur, Normal Peripheral Pulses Gastrointestinal: Normal Bowel Sounds, No Organomegaly, No Pulsatile Mass, Non Tender, Soft Back: Normal Inspection, No CVA Tenderness, No Vertebral Tenderness Extremity: Normal Capillary Refill, Normal Inspection, Normal Range of Motion, Non Tender, No Calf Tenderness, Pedal Edema Neurologic/Psychiatric: Alert, Oriented x3, No Motor/Sensory Deficits, Normal Mood/Affect Skin: Normal Color, Warm/Dry Lymphatic: No Adenopathy Results/Procedures Lab Laboratory Tests 02/24/19 05:05 Patient resulted labs reviewed. Assessment/Plan Assessment and Plan Assess & Plan/Chief Complaint Assessment: 1. [place] Type II per Cardiology 2. Acute on chronic systolic congestive heart failure, 3. Urinary retention requiring Santiago catheter 4. Ischemic cardiomyopathy, 5. CAD with previous interventions 6. PAD with previous interventions 7. History of GI bleeding 8. Hypertension 9. Hyperlipidemia 10. Chronic kidney disease Plan: Appreciate Dr Byrne and Cardiology Monitor closely Home meds O2 Nebs Cystoscopy tomorrow Diagnosis/Problems Diagnosis/Problems (1) Pulmonary edema cardiac cause Status: Acute (2) Acute and chronic respiratory failure with hypoxia Status: Acute (3) Diabetes mellitus, type 2 Status: Chronic Qualifiers: Diabetes mellitus terminal manager insulin use: without senior care use Diabetes mellitus complication status: with circulatory complication Diabetes mellitus complication detail: with other circulatory complications Qualified Codes: E11.59 - Type 2 diabetes mellitus with other circulatory complications (4) BPH (benign prostatic hyperplasia) Status: Chronic Qualifiers: Lower urinary tract symptom presence: symptoms present Lower urinary tract symptom detail: incomplete bladder emptying Qualified Codes: N40.1 - Benign prostatic hyperplasia with lower urinary tract symptoms; R39.14 - Feeling of incomplete bladder emptying (5) Urinary retention due to benign prostatic hyperplasia Status: Acute (6) PTSD (post-traumatic stress disorder) Status: Chronic (7) COPD (chronic obstructive pulmonary disease) Status: Chronic Qualifiers: COPD type: unspecified COPD Qualified Codes: J44.9 - Chronic obstructive pulmonary disease, unspecified (8) GERD (gastroesophageal reflux disease) Status: Chronic Qualifiers: Esophagitis presence: without esophagitis Qualified Codes: K21.9 - Gastro- esophageal reflux disease without esophagitis Clinical Quality Measures DVT/VTE Risk/Contraindication: Risk Factor Score Per Nursin RFS Level Per Nursing on Admit: 4+=Very High FRANCA LAO DO Feb 24, 2019 11:31
[2019-02-24 12:00] VITALS: BP 157/76
[2019-02-24] MEDS: LORazepam 0.5 MG (ATIVAN) TABLET PO PRN (13:09)
[2019-02-24] MEDS: oxyCODONE/APAP 7.5-325 MG (PERCOCET 7.5) TABLET PO PRN (13:09)
[2019-02-24 15:35] VITALS: BP 162/79
--- NOTE | 2019-02-24 15:46 | Progress Note-Cardiology ---
Cardiology SOAP Progress Note Subjective: No cp. Intermittent, mild, epigastric discomfort, val after eating Less short of breath Malaise somewhat better No palp or syncope Objective: I&O/Vital Signs 02/24/19 02/24/19 02/24/19 02/24/19 04:00 04:00 07:42 07:44 Temp 96.6 Pulse 98 Resp 16 B/P (MAP) 122/60 (80) Pulse Ox 96 94 94 O2 Delivery Room Air Room Air Nasal Cannula Nasal Cannula O2 Flow Rate 2.00 2.00 2.00 02/24/19 02/24/19 02/24/19 02/24/19 08:00 09:04 12:00 15:35 Temp 96.2 97.6 95.6 Pulse 102 109 105 Resp 20 20 20 B/P (MAP) 156/70 (98) 157/76 (103) 162/79 (106) Pulse Ox 93 96 98 O2 Delivery Nasal Cannula Room Air Nasal Cannula Nasal Cannula O2 Flow Rate 2.00 2.00 2.00 2.00 02/24/19 00:00 Intake Total 1800 ml Output Total 1400 ml Balance 400 ml Weight (Pounds): 200 Weight (Ounces): 0.0 Weight (Calculated Kilograms): 90.537242 Constitutional: appears stated age, AAO x 3, well-developed, well-nourished Respiratory: chest is bilaterally symmetric, lungs clear to auscultation Cardiovascular: regular rate-rhythm, S1 and S2, systolic murmur (Soft ATTILA at card base) Gastrointestional: No tender; soft; No guarding, No rebound; audible bowel sounds Extremities: No clubbing, No cyanosis, No significant edema Neurologic/Psychiatric: alert, oriented x 3, other (moves all limbs equally) Skin: No rash on exposed areas, No ulcerations on exposed areas Results/Procedures: Labs Laboratory Tests 02/23/19 21:26: Glucometer 306H 02/24/19 05:05: White Blood Count 7.7, Red Blood Count 4.30L, Hemoglobin 10.6L, Hematocrit 36L, Mean Corpuscular Volume 84, Mean Corpuscular Hemoglobin 25, Mean Corpuscular Hemoglobin Concent 29L, Red Cell Distribution Width 18.3H, Platelet Count 274, Mean Platelet Volume 8.8, Neutrophils (%) (Auto) 72, Lymphocytes (%) (Auto) 16, Monocytes (%) (Auto) 8, Eosinophils (%) (Auto) 4, Basophils (%) (Auto) 0, Neutrophils # (Auto) 5.5, Lymphocytes # (Auto) 1.3, Monocytes # (Auto) 0.6, Eosinophils # (Auto) 0.3, Basophils # (Auto) 0.0, Sodium Level 141, Potassium Level 3.7, Chloride Level 98, Carbon Dioxide Level 35H, Anion Gap 8, Blood Urea Nitrogen 16, Creatinine 1.46H, Estimat Glomerular Filtration Rate 48, BUN/Creatinine Ratio 11, Glucose Level 64L, Calcium Level 9.0, Corrected Calcium 9.5, Total Bilirubin 0.4, Aspartate Amino Transf (AST/SGOT) 20, Alanine Aminotransferase (ALT/SGPT) 18, Alkaline Phosphatase 119, Total Protein 5.8L, Albumin 3.4 Laboratory Tests 02/22/19 18:40 02/23/19 05:53 02/24/19 05:05 Laboratory Tests 02/22/19 18:40 02/23/19 05:53 02/24/19 05:05 A/P: Assessment: Acute on chronic systolic congestive heart failure, elevated BNP. Echocardiogram done in November 2018 showed an EF of 40-45 percent Mildly elevated troponin: Type 2 MS due to CHF Urinary retention, managed by Dr Byrne Ischemic cardiomyopathy CAD, history of PCI to LAD, currently on ASA and Effient PAD with previous history of lower extremity intervention History of GI bleeding Hypertension Hyperlipidemia CKD-3 Plan: * I reviewed his records, interviewed him, examined him, and answered his questions * Complex management due to multiple comorbidities * Continue current regimen * Monitor labs EZEQUIEL DANIELSON MD FACP FAC CCDS Feb 24, 2019 15:46
[2019-02-24] MEDS: TAMSULOSIN 0.4 MG (FLOMAX) CAP PO SCH (17:47)
[2019-02-24 19:41] VITALS: BP 176/102
[2019-02-24] MEDS: MELATONIN 3 MG TABLET PO SCH (20:58)
[2019-02-24] MEDS: MIRTAZAPINE 15 MG (REMERON) TAB PO SCH (20:58)
[2019-02-24] MEDS: PRAZOSIN 5 MG CAPSULE PO SCH (20:59)
[2019-02-24] MEDS: PAROXETINE 12.5 MG PO SCH (21:00)
[2019-02-25] VITALS (7 sets, daily range): BP systolic 127–196; BP diastolic 69–94
[2019-02-25] MEDS: SUCRALFATE 1 GM (CARAFATE) TAB PO SCH ×4 (05:52→20:50)
[2019-02-25] MEDS: FUROSEMIDE 40 MG/4 ML INJ (LASIX) IV SCH (05:52)
[2019-02-25] MEDS: KCL 20 MEQ TAB (K-DUR) PO SCH (05:52)
[2019-02-25] MEDS: PANTOPRAZOLE 40 MG (PROTONIX) TAB PO SCH ×2 (05:52→20:50)
[2019-02-25] MEDS: RT-ADVAIR HFA 115/21 MCG PER PUFF IH SCH ×2 (08:16→19:36)
[2019-02-25] MEDS: UMECLIDINIUM BROMIDE (INCRUSE ELLIPTA) 7'S IH SCH (08:16)
[2019-02-25] MEDS: ATORVASTATIN 80 MG (LIPITOR) TABLET PO SCH (08:46)
[2019-02-25] MEDS: SENNA W/DOCUSATE (SENOKOT S) TABLET PO SCH ×2 (08:46→20:50)
[2019-02-25] MEDS: PRASUGREL 10 MG (EFFIENT) TABLET PO SCH (08:46)
[2019-02-25] MEDS: FINASTERIDE (PROSCAR) 5 MG TAB PO SCH (08:47)
[2019-02-25] MEDS: ASPIRIN E.C. 81 MG (ECOTRIN) TAB PO SCH (08:47)
[2019-02-25] MEDS: PAROXETINE 37.5 MG PO SCH (08:47)
--- NOTE | 2019-02-25 09:29 | Progress Note-Pre Operative ---
Pre-Operative Progress Note H&P Reviewed The H&P was reviewed, patient examined and no changes noted. Date Seen by Provider: Feb 25, 2019 Time Seen by Provider: : Date H&P Reviewed: Feb 25, 2019 Time H&P Reviewed: : Pre-Operative Diagnosis: VIDHI CARRASCO MD Feb 25, 2019 09:29
--- NOTE | 2019-02-25 11:07 | NUR ---
home oxygen study pt working with pt at bedside on room air and desaturated to 85%, placed pt on 2 lpm nasal cannula. pt spo2 stayed above 90% with 2 lpm of oxygen via nasal cannula. pt will require 2 lpm nasal oxygen at all times
[2019-02-25] MEDS ORDERED: TAMS0.4C98 PO (11:15)
--- NOTE | 2019-02-25 11:17 | Progress Note-Hospitalist ---
Subjective HPI/CC On Admission Date Seen by Provider: Feb 25, 2019 Time Seen by Provider: 10:30 Chief complaint: shortness of breath History of present illness: This is a 68-year-old white male clinic patient of [facility] with a past medical history of active smoking, CAD with previous interventions, PVD with previous interventions, HTN and chronic renal insufficiency who presented to the ER with shortness of breath and chest pain found to have elevated troponin elevated BNP with volume overload and urinary retention requiring Santiago catheter after Lasix administration. Urology has been consulted along with cardiology and patient feeling much better and he seems to be very pleased with how much better he is feeling. I have reviewed his medications and his current labs and imaging scans and cardiology consultation along with urology consultation. He is stable and will be able to be transferred to the floor for continued diuresis and supportive care. Subjective/Events-last exam Patient doing much better Cystoscopy performed by Dr. Byrne and Flomax will be continued Santiago catheter discontinued Have set up home oxygen orders at 2 L continuously He wants to go home tomorrow rather than today Overall feels much better Cardiology has approved discharge tomorrow Review of Systems General: Fatigue Pulmonary: Cough Objective Exam Vital Signs Vital Signs Date Time Temp Pulse Resp B/P (MAP) Pulse Ox O2 Delivery O2 Flow Rate FiO2 02/25/19 15:34 96.9 119 22 196/80 (118) 98 Nasal Cannula 2.00 Capillary Refill : Less Than 3 Seconds General Appearance: No Apparent Distress, WD/WN, Anxious, Chronically ill HEENT: PERRL/EOMI, Normal ENT Inspection, Pharynx Normal, Moist Mucous Membranes Neck: Full Range of Motion, Normal Inspection, Non Tender Respiratory: Chest Non Tender, No Accessory Muscle Use, No Respiratory Distress, Decreased Breath Sounds Cardiovascular: Regular Rate, Rhythm, No Gallop, No JVD, No Murmur, Normal Peripheral Pulses Gastrointestinal: Normal Bowel Sounds, No Organomegaly, No Pulsatile Mass, Non Tender, Soft Back: Normal Inspection, No CVA Tenderness, No Vertebral Tenderness Extremity: Normal Capillary Refill, Normal Inspection, Normal Range of Motion, Non Tender, No Calf Tenderness, Pedal Edema Neurologic/Psychiatric: Alert, Oriented x3, No Motor/Sensory Deficits, Normal Mood/Affect Skin: Normal Color, Warm/Dry Lymphatic: No Adenopathy Results/Procedures Lab Patient resulted labs reviewed. Assessment/Plan Assessment and Plan Assess & Plan/Chief Complaint Assessment: 1. [place] Type II per Cardiology 2. Acute on chronic systolic congestive heart failure, 3. Urinary retention requiring Santiago catheter 4. Ischemic cardiomyopathy, 5. CAD with previous interventions 6. PAD with previous interventions 7. History of GI bleeding 8. Hypertension 9. Hyperlipidemia 10. Chronic kidney disease Plan: Appreciate Dr Byrne and Cardiology Monitor closely Home meds O2 2 L/Min set up for DC Nebs Cystoscopy completd DC home Diagnosis/Problems Diagnosis/Problems (1) Pulmonary edema cardiac cause Status: Acute (2) Acute and chronic respiratory failure with hypoxia Status: Acute (3) Diabetes mellitus, type 2 Status: Chronic Qualifiers: Diabetes mellitus intermediate insulin use: without rat exterminator use Diabetes mellitus complication status: with circulatory complication Diabetes mellitus complication detail: with other circulatory complications Qualified Codes: E11.59 - Type 2 diabetes mellitus with other circulatory complications (4) BPH (benign prostatic hyperplasia) Status: Chronic Qualifiers: Lower urinary tract symptom presence: symptoms present Lower urinary tract symptom detail: incomplete bladder emptying Qualified Codes: N40.1 - Benign prostatic hyperplasia with lower urinary tract symptoms; R39.14 - Feeling of incomplete bladder emptying (5) Urinary retention due to benign prostatic hyperplasia Status: Acute (6) PTSD (post-traumatic stress disorder) Status: Chronic (7) COPD (chronic obstructive pulmonary disease) Status: Chronic Qualifiers: COPD type: unspecified COPD Qualified Codes: J44.9 - Chronic obstructive pulmonary disease, unspecified (8) GERD (gastroesophageal reflux disease) Status: Chronic Qualifiers: Esophagitis presence: without esophagitis Qualified Codes: K21.9 - Gastro- esophageal reflux disease without esophagitis Clinical Quality Measures DVT/VTE Risk/Contraindication: Risk Factor Score Per Nursin RFS Level Per Nursing on Admit: 4+=Very High FRANCA LAO DO Feb 25, 2019 11:17
--- NOTE | 2019-02-25 11:59 | Physical Therapy Evaluation ---
PT Evaluation-General Medical Diagnosis Admission Date Feb 22, 2019 at 20:50 Medical Diagnosis: CHF exacerbation Onset Date: Feb 22, 2019 Therapy Diagnosis Therapy Diagnosis: debility Height/Weight Height (Feet): 5 Height (Inches): 8.00 Weight (Pounds): 199 Weight (Ounces): 3.0 Precautions Precautions/Isolations: Fall Prevention, Standard Precautions Referral Physician: Refugio Reason for Referral: Evaluation/Treatment Medical History Pertinent Medical History: Atrial Fib, Alcoholism, CAD, COPD, DM, HTN, Neuropathy, Smoking Current History EMS secondary to generalized pain with suicidal ideation Reviewed History: Yes Social History Home: Apartment Current Living Status: Alone Prior/Core FIM Prior Level of Function Therapy Code Descriptions/Definitions Functional [place] Measure: 0=Not Assessed/NA 4=Minimal Assistance 1=Total Assistance 5=Supervision or Setup 2=Maximal Assistance 6=Modified [place] 3=Moderate Assistance 7=Complete [place] Therapy Quality Codes: 6 Independent with activity with or without an assistive device 5 Patient requires set up or clean up by helper. Patient completes activity by themselves 4 Supervision or touching assist (CGA). [place] provide cues , steadying assist 3 The helper provides less than half the effort to complete the activity 2 The helper provides more than half the effort to complete the activity 1 Dependent. The helper does all the effort to complete an activity 7 Patient refused to complete or attempt activity 9 The patient did not perform the activity before the current illness or injury 88 Not attempted due to Medical conditions or safety concerns Functional Abilities and Goals: Independent: Patient completed the activities by him/herself, with or without an assistive device, with no assistance from a helper. Needed Some Help: Patient needed partial assistance from another person to complete activities. Dependent: A helper completed the activities for the patient. Unknown: Not Applicable: Bed Mobility: 7 Transfers (B,C,W/C) (FIM): 7 Gait: 7 Indoor Mobility (Ambulation): Independent Prior Devices Use: None PT Evaluation-Current Subjective Patient agrees to PT. He reports he is doing much better on this date. Objective Patient Orientation: Normal For Age Problem Solving: Good Attachments: Oxygen (2L NC ), Santiago Catheter ROM/Strength ROM Lower Extremities bilateral LE WFL Strength Lower Extremities noted drop foot right/bilateral LE WFL Integumentary/Posture Integumentary refer to nursing notes Bowel Incontinence: No Bladder Incontinence: Santiago Cath Posture WFL Neuromuscular (Tone, Coordination, Reflexes) grossly intact with right drop foot Sensory Vision: Functional Hearing: Functional Sensation Right Lower Extremit: Impaired Sensation Left Lower Extremity: Impaired Transfers Therapy Code Descriptions/Definitions Functional [place] Measure: 0=Not Assessed/NA 4=Minimal Assistance 1=Total Assistance 5=Supervision or Setup 2=Maximal Assistance 6=Modified [place] 3=Moderate Assistance 7=Complete [place] Transfers (B, C, W/C) (FIM): 7 Scootin Rollin Supine to/from Sit: 7 Sit to/from Stand: 7 Gait Mode of Locomotion: Walk Anticipated Mode of Locomotion: Walk Gait (FIM): 7 Distance (FIM): 3=150 ft Distance: 600' Gait Level of Assist: 7 Gait Assistive Device: None Comments/Gait Description safe and functional/patient negotiated O2 tank and tubing Balance Sitting Static: Normal Sitting Dynamic: Normal Standing Static: Normal Standing Dynamic: Normal Assessment/Needs 68 y.o. male, is currently at [facility] with all gross motor skills and does not require skilled therapy intervention. Thank you for this referral. Rehab Potential: Fair PT Plan Treatment/Plan Treatment Plan: Discontinue PT, goals met Treatment Plan: Other Treatment Duration: Feb 25, 2019 Frequency: 1 time per week Estimated Hrs Per Day: .25 hour per day Patient and/or Family Agrees t: Yes Discharge Recommendations Therapy D/C Recommendations: Home Independently Time/GCodes Time In: 1106 Time Out: 1120 Total Billed Treatment Time: 14 Total Billed Treatment 1 visit EVModC 14 min YONG TODD PT Feb 25, 2019 11:59
[2019-02-25] MEDS ORDERED: LIDOCAINE UROJET 2% GEL 10 ML PKG ONE (12:00)
--- NOTE | 2019-02-25 12:04 | Progress Note-Post Operative ---
Post-Operative Progess Note Surgeon (s)/Skin Care Technician (s) Surgeon VIDHI MANCERA MD Skin Care Technician: NONE Pre-Operative Diagnosis RETENTION Post-Operative Diagnosis SAME Procedure & Operative Findings Date of Procedure 02/25/19 Procedure Performed/Findings CYSTOSCOPY Anesthesia Type LOCAL Estimated Blood Loss Estimated blood loss (mL): NONE Specimens/Packing Specimens Removed NONE Packing: NONE VIDHI MANCERA MD Feb 25, 2019 12:04
--- NOTE | 2019-02-25 13:18 | NUR ---
CM/SS, respond to consult for new home O2, coordinated with patient preferred agency. DME: Coordinated new home O2 with [facility]. Agency understands to deliver portable to hospital room and to make home setup arrangements directly with patient. Patient continues to reside at [facility]. He appears more stable physically than auto service writer's last encounter with him from a previous hospitalization, he admitted to [facility] for rehab to home at that time. Patient identifies no needs beyond the O2.
--- NOTE | 2019-02-25 14:45 | Occupational Therapy Eval ---
OT Evaluation-General/PLF Medical Diagnosis Admission Date Feb 25, 2019 at 12:40 Medical Diagnosis: CHF exacerbation Onset Date: Feb 22, 2019 Therapy Diagnosis Therapy Diagnosis: debility Height/Weight Height (Feet): 5 Height (Inches): 8.00 Weight (Pounds): 199 Weight (Ounces): 3.0 Precautions Precautions/Isolations: Fall Prevention, Standard Precautions Safety Interventions: Reorient-PRN Referral Physician: Refugio Medical History Pertinent Medical History: Atrial Fib, Alcoholism, CAD, COPD, DM, HTN, Neuropathy, Smoking Additional Medical History hyperlipidemia, severe PAD, ischemic cardiomyopathy, BPH, GI bleed, irritable bowel, back injury, anxiety, PTSD Current History Admitted with CHF exacerbation Social History Home: Apartment Current Living Status: Alone Entry Into Home: Elevator ADL-Prior Level of Function Therapy Code Descriptions/Definitions Functional [place] Measure: 0=Not Assessed/NA 4=Minimal Assistance 1=Total Assistance 5=Supervision or Setup 2=Maximal Assistance 6=Modified [place] 3=Moderate Assistance 7=Complete [place] Therapy Quality Codes: 6 Independent with activity with or without an assistive device 5 Patient requires set up or clean up by helper. Patient completes activity by themselves 4 Supervision or touching assist (CGA). [place] provide cues , steadying assist 3 The helper provides less than half the effort to complete the activity 2 The helper provides more than half the effort to complete the activity 1 Dependent. The helper does all the effort to complete an activity 7 Patient refused to complete or attempt activity 9 The patient did not perform the activity before the current illness or injury 88 Not attempted due to Medical conditions or safety concerns Functional Abilities and Goals: Independent: Patient completed the activities by him/herself, with or without an assistive device, with no assistance from a helper. Needed Some Help: Patient needed partial assistance from another person to complete activities. Dependent: A helper completed the activities for the patient. Unknown: Not Applicable: ADL PLOF Comments Pt states he is normally independent with basic self care and mobility. Uses walking stick for ambulation. Pt has home health aide 5 hrs/wk to assist with cleaning and errands. Pt's sons assist with medication set up. Pt does not drive. DME/Equipment: Bath Chair, Grab Bars, Tub/Shower Drive Self: No OT Current Status Subjective Pt agreeable to therapy this pm. Pt reports 6/10 pain in feet. Mental Status/Objective Patient Orientation: Person, Situation Attachments: Oxygen Current Hand Dominance: Right Upper Extremity ROM Grossly WFL Upper Extremity Coordination Intact Upper Extremity Strength Grossly WFL ADL-Treatment ADL-Current Pt standing up in room when therapist arrives. Gait to restroom without LOB. Pt transferred to toilet independently and completed toileting without assist. Transfer to EOB independently. Pt demonstrated ability to doff/don socks without assist. Pt reports feeding self independently. Pt declined shower at this time, states he will complete later today. Pt states he is not having any difficulty with ADLs or transfers. No questions or concerns regarding ADLs or home safety, states he will be discharged tomorrow. No skilled OT intervention indicated at this time. Pt resting in bed with needs met after session. Therapy Code Descriptions/Definitions Functional [place] Measure: 0=Not Assessed/NA 4=Minimal Assistance 1=Total Assistance 5=Supervision or Setup 2=Maximal Assistance 6=Modified [place] 3=Moderate Assistance 7=Complete [place] Therapy Quality Codes: 6 Independent with activity with or without an assistive device 5 Patient requires set up or clean up by helper. Patient completes activity by themselves 4 Supervision or touching assist (CGA). [place] provide cues , steadying assist 3 The helper provides less than half the effort to complete the activity 2 The helper provides more than half the effort to complete the activity 1 Dependent. The helper does all the effort to complete an activity 7 Patient refused to complete or attempt activity 9 The patient did not perform the activity before the current illness or injury 88 Not attempted due to Medical conditions or safety concerns Eating (FIM): 7 (by report) Lower Body Dressing (FIM): 6 (socks only) Toileting (FIM): 6 Toilet/Commode Transfer (FIM): 6 Education OT Patient Education: Rehab process Teaching Recipient: Patient Teaching Methods: Discussion Response to Teaching: Verbalize Understanding OT Education/Plan Problem List/Assessment Assessment: No Skilled OT Needs ID'd Pt admitted with CHF exacerbation. Pt demonstrates ability to perform basic ADLs and transfers with modified independence. Pt has no questions or concerns regarding ADLs or home safety. No skilled OT intervention indicated at this time. D/C OT. Discharge Recommendations Plan/Recommendations: Continue POC Treatment Plan/Plan of Care Treatment,Training & Education: No Treatment Duration: Feb 25, 2019 Frequency: 1 time per week (eval only) Estimated Hrs Per Day: Other (evaluation only) Rehab Potential: Fair Time/GCodes Start Time: 13:25 Stop Time: 13:44 Total Time Billed (hr/min): 19 Billed Treatment Time 1 visit, LUCILA(19minutes) SCOTT RO OT Feb 25, 2019 14:45
--- NOTE | 2019-02-25 17:32 | NUR ---
ASKED PT ABOUT DOING A PVR BLADDER SCAN -- PT REFUSED VOICED HE WS URINATING FINE AND DID NOT WANT TO
[2019-02-25] MEDS: TAMSULOSIN 0.4 MG (FLOMAX) CAP PO SCH (17:40)
--- NOTE | 2019-02-25 18:11 | Progress Note-Cardiology ---
Cardiology SOAP Progress Note Subjective: Feels better compared to time of admission Shortness of breath better No cp or palp or syncope Objective: I&O/Vital Signs 02/25/19 02/25/19 02/25/19 02/25/19 08:16 08:22 08:23 09:00 Temp 97.8 Pulse 114 Resp 20 B/P (MAP) 162/93 (116) Pulse Ox 94 97 O2 Delivery Nasal Cannula Nasal Cannula Nasal Cannula Room Air O2 Flow Rate 2.00 2.00 2.00 2.00 02/25/19 02/25/19 02/25/19 11:01 12:28 15:34 Temp 96.9 96.9 Pulse 104 119 Resp 22 22 B/P (MAP) 158/88 (111) 196/80 (118) Pulse Ox 95 98 98 O2 Delivery Nasal Cannula Nasal Cannula O2 Flow Rate 2.00 2.00 2.00 02/25/19 00:00 Intake Total 2010 ml Output Total 2075 ml Balance -65 ml Weight (Pounds): 199 Weight (Ounces): 3.0 Weight (Calculated Kilograms): [id number] Constitutional: appears stated age, AAO x 3, well-developed, well-nourished Respiratory: chest is bilaterally symmetric, lungs clear to auscultation Cardiovascular: regular rate-rhythm, S1 and S2, systolic murmur (Soft ATTILA at card base) Gastrointestional: No tender; soft; No guarding, No rebound; audible bowel sounds Extremities: No clubbing, No cyanosis, No significant edema Neurologic/Psychiatric: alert, oriented x 3, other (moves all limbs equally) Skin: No rash on exposed areas, No ulcerations on exposed areas Results/Procedures: Labs Laboratory Tests 02/24/19 20:57: Glucometer 253H Laboratory Tests 02/24/19 05:05 A/P: Assessment: Acute on chronic systolic congestive heart failure, elevated BNP. Echocar diogram done in November 2018 showed an EF of 40-45 percent Mildly elevated troponin: Type 2 ND due to CHF Urinary retention, managed by Dr Byrne. Cystoscopy on 02/25/19, apparently, did not show any significant findins Ischemic cardiomyopathy CAD, history of PCI to LAD, currently on ASA and Effient PAD with previous history of lower extremity intervention History of GI bleeding Hypertension Hyperlipidemia CKD-3 Plan: * BP is now high * Resume beta-[place] and ROSEANNA-inhib * Monitor labs * Outpt cardiac f/u advised with Dr Chandra next week EZEQUIEL DANIELSON MD [facility] Feb 25, 2019 18:11
[2019-02-25] MEDS ORDERED: lisINopril 10 MG (PRINIVIL) TABLET PO NR (18:15)
[2019-02-25] MEDS: MELATONIN 3 MG TABLET PO SCH (20:50)
[2019-02-25] MEDS: MIRTAZAPINE 15 MG (REMERON) TAB PO SCH (20:50)
[2019-02-25] MEDS: PAROXETINE 12.5 MG PO SCH (20:52)
[2019-02-25] MEDS: PRAZOSIN 5 MG CAPSULE PO SCH (20:53)
--- NOTE | 2019-02-25 21:00 | OPERATIVE REPORT ---
DATE OF SERVICE: 02/25/2019 PREOPERATIVE DIAGNOSIS: Urinary retention. POSTOPERATIVE DIAGNOSIS: Urinary retention. OPERATION PERFORMED: Cystoscopy. SURGEON: Ramsey Mancera MD ANESTHESIA: Local. COMPLICATIONS: None. DESCRIPTION OF PROCEDURE: With the patient supine in his bed, the catheter was removed. The genitalia were prepped and draped in the usual sterile fashion. The urethra was infiltrated with 2% lidocaine jelly. A clamp was applied. This was then removed and a flexible cystoscope was introduced under vision. Anterior urethra was normal. The prostate was small. No obstruction. Bladder neck was open. The bladder reveals some trabeculation. There was no foreign body stone or bladder tumor visualized. Ureteric orifices normal in shape, size and configuration with clear efflux. Cystoscopy was confirmed in an antegrade fashion and the cystoscope was removed. The patient tolerated the procedure and anesthesia well, remained in his bed in stable condition. Job ID: [id number] DocumentID: [id number] Dictated Date: 02/25/2019 12:52:07 Adjunct Professor Of English Date: 02/25/2019 21:00:14 Dictated By: RAMSEY MANCERA MD [facility], [place]
--- NOTE | 2019-02-25 21:46 | NUR ---
this rn spoke with dr. wahl about pt glucose reading being 404 & that this pt was given levemir 50 units. new order received & read back. dr. wahl agreed to this.
[2019-02-25] MEDS: inSUlin ASPART (NovoLOG) 1 UNIT/0.01 ML (CHARGE PER UNIT) SC SCH (22:30)
[2019-02-26 00:03] VITALS: BP 104/64
[2019-02-26 03:40] VITALS: BP 130/65
[2019-02-26] MEDS: oxyCODONE/APAP 7.5-325 MG (PERCOCET 7.5) TABLET PO PRN (03:54)
[2019-02-26 05:34] LABS: BASOPHILS % (AUTO) 0 % (0-10); EOSINOPHILS # (AUTO) 0.3 10^3/uL (0.0-0.3); EOSINOPHILS % (AUTO) 3 % (0-10); HEMATOCRIT 36 % (40-54); HEMOGLOBIN 10.8 G/DL (13.3-17.7); LYMPHOCYTES % (AUTO) 12 % (12-44); MEAN CORPUSCULAR HEMOGLOBIN 25 PG (25-34); MEAN CORPUSCULAR HGB CONC 30 G/DL (32-36); MEAN CORPUSCULAR VOLUME 83 FL (80-99); MONOCYTES # (AUTO) 0.6 X 10^3 (0.0-1.0); MONOCYTES % (AUTO) 7 % (0-12); NEUTROPHILS # (AUTO) 6.6 X 10^3 (1.8-7.8); NEUTROPHILS % (AUTO) 78 % (42-75); PLATELET COUNT 264 10^3/uL (130-400); WHITE BLOOD COUNT 8.5 10^3/uL (4.3-11.0)
[2019-02-26] MEDS: inSUlin ASPART (NovoLOG) 1 UNIT/0.01 ML (CHARGE PER UNIT) SC SCH ×2 (05:47→11:17)
[2019-02-26 05:55] LABS: ALBUMIN 3.5 GM/DL (3.2-4.5); BILIRUBIN,TOTAL 0.4 MG/DL (0.1-1.0); CALCIUM 9.1 MG/DL (8.5-10.1); CREATININE SERUM 1.38 MG/DL (0.60-1.30); POTASSIUM 4.4 MMOL/L (3.6-5.0); TOTAL PROTEIN 6.2 GM/DL (6.4-8.2)
[2019-02-26] MEDS: PANTOPRAZOLE 40 MG (PROTONIX) TAB PO SCH (06:30)
[2019-02-26] MEDS: SUCRALFATE 1 GM (CARAFATE) TAB PO SCH ×2 (06:30→13:07)
[2019-02-26] MEDS: KCL 20 MEQ TAB (K-DUR) PO SCH (06:30)
[2019-02-26] MEDS: FUROSEMIDE 40 MG/4 ML INJ (LASIX) IV SCH (06:31)
[2019-02-26 08:00] VITALS: BP 126/73
[2019-02-26] MEDS: RT-ADVAIR HFA 115/21 MCG PER PUFF IH SCH (08:08)
[2019-02-26] MEDS: UMECLIDINIUM BROMIDE (INCRUSE ELLIPTA) 7'S IH SCH (08:09)
[2019-02-26] MEDS ORDERED: lisINopril 10 MG (PRINIVIL) TABLET PO SCH (09:00)
[2019-02-26] MEDS: PRASUGREL 10 MG (EFFIENT) TABLET PO SCH (09:22)
[2019-02-26] MEDS: ATORVASTATIN 80 MG (LIPITOR) TABLET PO SCH (09:22)
[2019-02-26] MEDS: ASPIRIN E.C. 81 MG (ECOTRIN) TAB PO SCH (09:22)
[2019-02-26] MEDS: SENNA W/DOCUSATE (SENOKOT S) TABLET PO SCH (09:23)
[2019-02-26] MEDS: FINASTERIDE (PROSCAR) 5 MG TAB PO SCH (09:23)
[2019-02-26] MEDS: PAROXETINE 37.5 MG PO SCH (09:24)
--- NOTE | 2019-02-26 10:54 | Progress Note-Urology ---
Progress Note-Urology Progress Notes/Assess & Plan Progress/Assessment & Plan VOIDING WELL EMPTIES WELL. HOME TODAY KEEP ON FLOMAX. WE WILL SEE PRN Final Diagnosis URINE RETENTION ( RESOLVED ) VIDHI MANCERA MD Feb 26, 2019 10:54
[2019-02-26 12:00] VITALS: BP 124/80
--- NOTE | 2019-02-26 12:36 | Discharge Summary-Hospitalist ---
Diagnosis/Chief Complaint Date of Admission Feb 25, 2019 at 12:40 Date of Discharge Discharge Date: Feb 25, 2019 Admission Diagnosis Assessment: 1. MD Type II per Cardiology 2. Acute on chronic systolic congestive heart failure, 3. Urinary retention requiring Santiago catheter 4. Ischemic cardiomyopathy, 5. CAD with previous interventions 6. PAD with previous interventions 7. History of GI bleeding 8. Hypertension 9. Hyperlipidemia 10. Chronic kidney disease Plan: Appreciate Dr Byrne and Cardiology Monitor closely Home meds O2 Nebs Discharge Diagnosis (1) Pulmonary edema cardiac cause Status: Acute (2) Acute and chronic respiratory failure with hypoxia Status: Acute (3) Diabetes mellitus, type 2 Status: Chronic (4) BPH (benign prostatic hyperplasia) Status: Chronic (5) Urinary retention due to benign prostatic hyperplasia Status: Acute (6) PTSD (post-traumatic stress disorder) Status: Chronic (7) COPD (chronic obstructive pulmonary disease) Status: Chronic (8) GERD (gastroesophageal reflux disease) Status: Chronic Discharge Summary Discharge Physical Exam Allergies: Coded Allergies: No Known Drug Allergies (Verified , 07/08/18) Vitals & I&Os Vital Signs Date Time Temp Pulse Resp B/P (MAP) Pulse Ox O2 Delivery O2 Flow Rate FiO2 02/26/19 12:00 96.3 96 20 124/80 (95) 100 Nasal Cannula 2.00 General Appearance: No Apparent Distress, WD/WN Respiratory: Chest Non Tender, Lungs Clear, Normal Breath Sounds, No Accessory Muscle Use, No Respiratory Distress Cardiovascular: Regular Rate, Rhythm, No Edema, No Gallop, No JVD, No Murmur, Normal Peripheral Pulses Neurologic/Psychiatric: Alert, Oriented x3, No Motor/Sensory Deficits, Normal Mood/Affect Hospital Course Was the Problem List Reviewed?: Yes Hospital course: Patient was admitted due to severe volume overload with exacerbation of COPD requiring cardiology and pulmonology consultations. Aggressive diuresis was very successful in resolving the overload. Urinary retention required urology consultation and cystoscopy revealed no acute abnormality and he had resumption of normal urinary function. Bowels remain stable patient was improved immensely since admit but he was deemed in need of home oxygen at discharge at 2 L continuous. Those orders were placed and overall patient improved enough to be discharged. Labs (last 24 hrs) Laboratory Tests 02/25/19 20:44: Glucometer 404*H 02/26/19 05:12: Glucometer 169H 02/26/19 05:25: White Blood Count 8.5, Red Blood Count 4.30L, Hemoglobin 10.8L, Hematocrit 36L, Mean Corpuscular Volume 83, Mean Corpuscular Hemoglobin 25, Mean Corpuscular Hemoglobin Concent 30L, Red Cell Distribution Width 18.0H, Platelet Count 264, Mean Platelet Volume 8.0, Neutrophils (%) (Auto) 78H, Lymphocytes (%) (Auto) 12, Monocytes (%) (Auto) 7, Eosinophils (%) (Auto) 3, Basophils (%) (Auto) 0, Neutrophils # (Auto) 6.6, Lymphocytes # (Auto) 1.0, Monocytes # (Auto) 0.6, Eosinophils # (Auto) 0.3, Basophils # (Auto) 0.0, Sodium Level 139, Potassium Level 4.4, Chloride Level 101, Carbon Dioxide Level 28, Anion Gap 10, Blood Urea Nitrogen 14, Creatinine 1.38H, Estimat Glomerular Filtration Rate 51, BUN/Creatinine Ratio 10, Glucose Level 158H, Calcium Level 9.1, Corrected Selvin cium 9.5, Total Bilirubin 0.4, Aspartate Amino Transf (AST/SGOT) 21, Alanine Aminotransferase (ALT/SGPT) 17, Alkaline Phosphatase 120, Total Protein 6.2L, Albumin 3.5 02/26/19 10:58: Glucometer 188H Patient resulted labs reviewed. Pending Labs Laboratory Tests 02/26/19 10:58: Glucometer 188 Discussion & Recommendations Discharge Planning: <30 minutes discharge planning Discharge Home Medications: Active Scripts Active Flomax (Tamsulosin HCl) 0.4 Mg Cap 0.4 Mg PO DAILY@1800 Reported Uxwzbcrj-Sqfw-Mrbtml Oil Sftgl (Fish Oil/Borage/Flax/Om3,6,9#1) 400 Mg Capsule 1 Cap PO TID Lisinopril 10 Mg Tablet 10 Mg PO DAILY Aspirin EC (Aspirin) 81 Mg Tablet.dr 81 Mg PO DAILY Sleep Aid (Doxylamine Succinate) 25 Mg Tablet 25 Mg PO HS PRN Sucralfate 1 Gm Tablet 1 Gm PO ACHS Paroxetine ER (Paroxetine HCl) 12.5 Mg Tab.er.24h 12.5 Mg PO HS Paroxetine HCl 37.5 Mg Tab.er.24h 37.5 Mg PO DAILY Furosemide 20 Mg Tablet 20 Mg PO DAILY Potassium Chloride 10 Meq Tablet.er 10 Meq PO DAILY Prazosin HCl 5 Mg Capsule 5 Mg PO HS Tylenol Extra Strength (Acetaminophen) 500 Mg Tablet 500-1,000 Mg PO Q6H PRN Caffeine 200 Mg Tablet 200-400 Mg PO BID PRN Benadryl Allergy (Diphenhydramine HCl) 25 Mg Tablet 25 Mg PO BID PRN Tramadol HCl 50 Mg Tablet 50 Mg PO TID PRN Bisacodyl 5 Mg Tablet.dr 10 Mg PO DAILY PRN Symbicort 160-4.5 Mcg Inhaler (Budesonide/Formoterol Fumarate) 10.2 Gm Hfa.aer.ad 2 Puff IH BID Levemir Flextouch (Insulin Detemir) 100 Unit/1 Ml Insuln.pen 50 Unit SQ HS Melatonin-Lemon [place] Tablet (Melatonin/Lemon [place] Extr) 1 Each Tablet 1 Tab PO HS Metoprolol Succinate 25 Mg Tab.er.24h 25 Mg PO BID Atorvastatin Calcium 80 Mg Tablet 80 Mg PO DAILY Proventil Hfa (Albuterol Sulfate) 6.7 Gm Hfa.aer.ad 2 Puff INH Q6H PRN Hydroxyzine HCl 25 Mg Tablet 25 Mg PO TID PRN Finasteride 5 Mg Tablet 5 Mg PO DAILY Pantoprazole Sodium 40 Mg Tablet.dr 40 Mg PO BID Prasugrel HCl 10 Mg Tablet 10 Mg PO DAILY Mirtazapine 30 Mg Tablet 30 Mg PO HS Incruse Ellipta (Umeclidinium [place]) 62.5 Mcg Blst.w.dev 1 Puff INH DAILY Instructions to patient/family Please see electronic discharge instructions given to patient. Clinical Quality Measures DVT/VTE Risk/Contraindication: Risk Factor Score Per Nursin RFS Level Per Nursing on Admit: 4+=Very High Problem Qualifiers (1) Diabetes mellitus, type 2: Diabetes mellitus extermination supervisor insulin use: without extermination supervisor use Diabetes mellitus complication status: with circulatory complication Diabetes mellitus complication detail: with other circulatory complications Qualified Codes: E11.59 - Type 2 diabetes mellitus with other circulatory complications (2) BPH (benign prostatic hyperplasia): Lower urinary tract symptom presence: symptoms present Lower urinary tract symptom detail: incomplete bladder emptying Qualified Codes: N40.1 - Benign prostatic hyperplasia with lower urinary tract symptoms; R39.14 - Feeling of incomplete bladder emptying (3) COPD (chronic obstructive pulmonary disease): COPD type: unspecified COPD Qualified Codes: J44.9 - Chronic obstructive pulmonary disease, unspecified (4) GERD (gastroesophageal reflux disease): Esophagitis presence: without esophagitis Qualified Codes: K21.9 - Gastro- esophageal reflux disease without esophagitis FRANCA LAO DO Feb 26, 2019 12:36
--- NOTE | 2019-02-26 13:24 | NUR ---
RX AND INST AND VERBALIZED UNDERSTANDING. DC'D PER WC WITH FRIEND AND HIDE DROPPER. HOME MEDS RET'D TO PT.
== END 2019-02-26 13:30 | disposition home or self-care (01) | DRG 280 ==
LOC: EDUNIT# 18:09 → ER 18:10 → ICU 20:50 → 4TH 02-23 14:54 → OBSVTOIN 02-25 12:40
PROVIDERS: ADMIT Family Medicine; ATTEND Family Medicine
PROC: 0TJB8ZZ Inspection of Bladder, Via Natural or Artificial Opening Endoscopic (ICD-10-PCS; principal; 2019-02-25 11:52)
DX: I13.0 Hypertensive heart and chronic kidney disease with heart failure and stage 1 through stage 4 chronic kidney disease, or unspecified chronic kidney disease (principal); I50.23 Acute on chronic systolic (congestive) heart failure; I21.A1 Myocardial infarction type 2; N18.3 Chronic kidney disease, stage 3 (moderate); J96.21 Acute and chronic respiratory failure with hypoxia; J44.1 Chronic obstructive pulmonary disease with (acute) exacerbation; I25.5 Ischemic cardiomyopathy; I25.10 Atherosclerotic heart disease of native coronary artery without angina pectoris; I48.91 Unspecified atrial fibrillation; N40.1 Benign prostatic hyperplasia with lower urinary tract symptoms; R33.9 Retention of urine, unspecified; E11.40 Type 2 diabetes mellitus with diabetic neuropathy, unspecified; Z79.4 Long term (current) use of insulin; F43.10 Post-traumatic stress disorder, unspecified; F41.9 Anxiety disorder, unspecified; F17.210 Nicotine dependence, cigarettes, uncomplicated; K21.9 Gastro-esophageal reflux disease without esophagitis; E78.5 Hyperlipidemia, unspecified; Z95.5 Presence of coronary angioplasty implant and graft; Z95.820 Peripheral vascular angioplasty status with implants and grafts
CPT/HCPCS: 36415; 71045; 71275; 80053; 82962; 83690; 83880; 84484; 85025; 94640; 94760; 94761

== ENCOUNTER 2019-03-07 12:03 | Observation (INO) | payer MEDICARE, MEDICAID ==
[~2019-03-07] VITALS: Ht 172.7 cm; Wt 87.1 kg
[~2019-03-07 12:03] MED LIST changes: +ASPI-983 PO; +DOXY25TA50 PO; +FISH400C2 PO; +FURO20TA4 PO; +LISI10TA2 PO; +PARO12.523 PO; +PARO37.511 PO; +POTA10TA10 PO; +PRAZ5CAP2 PO; +TAMS0.4C98 PO
[2019-03-07 12:15] LABS: BASOPHILS % (AUTO) 0 % (0-10); EOSINOPHILS % (AUTO) 0 % (0-10); HEMATOCRIT 40 % (40-54); HEMOGLOBIN 12.3 G/DL (13.3-17.7); LYMPHOCYTES # (AUTO) 0.5 X 10^3 (1.0-4.0); LYMPHOCYTES % (AUTO) 3 % (12-44); MEAN CORPUSCULAR HEMOGLOBIN 25 PG (25-34); MEAN CORPUSCULAR HGB CONC 31 G/DL (32-36); MEAN CORPUSCULAR VOLUME 82 FL (80-99); MONOCYTES # (AUTO) 0.4 X 10^3 (0.0-1.0); MONOCYTES % (AUTO) 2 % (0-12); NEUTROPHILS % (AUTO) 95 % (42-75); PLATELET COUNT 320 10^3/uL (130-400); RED CELL DISTRIBUTION WIDTH 17.9 % (10.0-14.5); WHITE BLOOD COUNT 15.9 10^3/uL (4.3-11.0)
--- NOTE | 2019-03-07 12:15 | ED General ---
General Stated Complaint: LOW BS Source of Information: Patient, EMS Exam Limitations: Physical Impairments History of Present Illness Date Seen by Provider: Mar 07, 2019 Time Seen by Provider: 12:11 Initial Comments This 68-year-old white male was found unresponsive in his residence by the paramedics. Patient had rolled out of bed onto his side. The patient appeared to have had emesis that is now dried on his scalp and face. The patient's airway appeared to be intact. The paramedics noted a low blood glucose. They gave the patient amp of D50. Patient responded to the D50. The patient leaves the episode was due to a panic attack. The patient presented to emergency department here approximately a week ago with a similar prese ntation. Patient is unable to offer a good interim history. However he denies pain in the head and neck or back. He denies paresthesia or weakness. He denies lateralizing or localizing neurologic complaints. He denies chest pain or shortness of breath. The patient has no complaints of nausea or vomiting at this time. On arrival in the emergency Department patient was able to move 4 extremities and offer verbally appropriate history. Allergies and Home Medications Allergies Coded Allergies: No Known Drug Allergies (Verified , 07/08/18) Home Medications Acetaminophen 500 Mg Tablet, 500-1,000 MG PO Q6H PRN for PAIN-MILD, (Reported) Albuterol Sulfate 6.7 Gm Hfa.aer.ad, 2 PUFF INH Q6H PRN for SHORTNESS OF BREATH, (Reported) Aspirin 81 Mg Tablet.dr, 81 MG PO DAILY, (Reported) Atorvastatin Calcium 80 Mg Tablet, 80 MG PO DAILY, (Reported) Bisacodyl 5 Mg Tablet.dr, 10 MG PO DAILY PRN for CONSTIPATION-4TH LINE, (Repor mindi) Budesonide/Formoterol Fumarate 10.2 Gm Hfa.aer.ad, 2 PUFF IH BID, (Reported) Caffeine 200 Mg Tablet, 200-400 MG PO BID PRN for DROWSINESS, (Reported) Diphenhydramine HCl 25 Mg Tablet, 25 MG PO BID PRN for ALLERGIES/ANXIETY, (Reported) Doxylamine Succinate 25 Mg Tablet, 25 MG PO HS PRN for SLEEP, (Reported) Finasteride 5 Mg Tablet, 5 MG PO DAILY, (Reported) Fish Oil/Borage/Flax/Om3,6,9#1 400 Mg Capsule, 1 CAP PO TID, (Reported) Furosemide 20 Mg Tablet, 20 MG PO DAILY, (Reported) Hydroxyzine HCl 25 Mg Tablet, 25 MG PO TID PRN for ANXIETY, (Reported) Insulin Detemir 100 Unit/1 Ml Insuln.pen, 50 UNIT SQ HS, (Reported) Lisinopril 10 Mg Tablet, 10 MG PO DAILY, (Reported) Melatonin/Lemon [place] Extr 1 Each Tablet, 1 TAB PO HS, (Reported) Metoprolol Succinate 25 Mg Tab.er.24h, 25 MG PO BID, (Reported) Mirtazapine 30 Mg Tablet, 30 MG PO HS, (Reported) Pantoprazole Sodium 40 Mg Tablet.dr, 40 MG PO BID, (Reported) Paroxetine HCl 37.5 Mg Tab.er.24h, 37.5 MG PO DAILY, (Reported) Paroxetine HCl 12.5 Mg Tab.er.24h, 12.5 MG PO HS, (Reported) Potassium Chloride 10 Meq Tablet.er, 10 MEQ PO DAILY, (Reported) Prasugrel HCl 10 Mg Tablet, 10 MG PO DAILY, (Reported) Prazosin HCl 5 Mg Capsule, 5 MG PO HS, (Reported) Sucralfate 1 Gm Tablet, 1 GM PO ACHS, (Reported) Tamsulosin HCl 0.4 Mg Cap, 0.4 MG PO DAILY@1800 Prescribed by: FRANCA LAO on 02/25/19 1115 Tramadol HCl 50 Mg Tablet, 50 MG PO TID PRN for PAIN-MODERATE, (Reported) Umeclidinium [place] 62.5 Mcg Blst.w.dev, 1 PUFF INH DAILY, (Reported) Patient Home Medication List Home Medication List Reviewed: Yes Review of Systems Review of Systems Constitutional: no symptoms reported EENTM: no symptoms reported Respiratory: no symptoms reported Cardiovascular: no symptoms reported Gastrointestinal: vomiting Genitourinary: no symptoms reported Musculoskeletal: no symptoms reported Skin: no symptoms reported Psychiatric/Neurological: No Symptoms Reported Hematologic/Lymphatic: No Symptoms Reported Immunological/Allergic: no symptoms reported Past Hngckbr-Uonkjf-Jvovez Hx Past Med/Social Hx: Reviewed Nursing Past Med/Soc Hx Patient Social History Alcohol Beverage of Choice: Beer Type Used: Cigarettes 2nd Hand Smoke Exposure: No Recent Hopitalizations: Yes (HEART CATH) Immunizations Up To Date Tetanus Booster (TDap): Unknown Date of Pneumonia Vaccine: Dec 02, 2016 Date of Influenza Vaccine: May 24, 2018 Seasonal Allergies Seasonal Allergies: No Past Medical History Surgeries: Yes Abdominal, Cardiac, Coronary Stent Respiratory: Yes Asthma, COPD Currently Using CPAP: No Currently Using BIPAP: No Cardiac: Yes Atrial Fibrillation, Cardiomyopathy, Hypertension Neurological: Yes Sexually Transmitted Disease: No HIV/AIDS: No Genitourinary: Yes Benign Prostatic Hyperpl, Kidney Infection, Prostate Problems, Renal Failure Gastrointestinal: Yes (GI BLEED AUG 2018) Gastrointestinal Bleed, Irritable Bowel Musculoskeletal: Yes Back Injury Endocrine: Yes Diabetes, Insulin dep HEENT: Yes (Are likely dry eyes) Loss of Vision: Bilateral Hearing Impairment: Denies Cancer: No Psychosocial: Yes Anxiety, PTSD Integumentary: No Blood Disorders: No Adverse Reaction/Blood Tranf: No Family Medical History No Pertinent Family Hx Physical Exam Vital Signs Vital Signs - First Documented 03/07/19 03/07/19 12:10 12:22 Temp 95.6 Pulse 106 Resp 22 B/P (MAP) 170/89 (116) Pulse Ox 98 O2 Delivery Nasal Cannula O2 Flow Rate 3.00 Capillary Refill : Height, Weight, BMI Height: 5'8.00" Weight: 210lbs. 5.0oz. 95.413671cr; 30.1 BMI Method:Stated General Appearance: No Apparent Distress, WD/WN Eyes: Bilateral Eye Normal Inspection HEENT: Normal ENT Inspection Neck: Normal Inspection Respiratory: Lungs Clear, Normal Breath Sounds Cardiovascular: Regular Rate, Rhythm, No Edema, No Murmur Gastrointestinal: Normal Bowel Sounds, No Organomegaly, No Pulsatile Mass, Non Tender Back: Normal Inspection Extremity: Normal Inspection, Normal Range of Motion Neurologic/Psychiatric: No Motor/Sensory Deficits Skin: Normal Color, Warm/Dry Focused Exam Lactate Level 03/07/19 12:16: Lactic Acid Level 1.82 Lactic Acid Level Laboratory Tests Test 03/07/19 12:16 Lactic Acid Level 1.82 MMOL/L (0.50-2.00) Progress/Results/Core Measures Suspected Sepsis SIRS Temperature: Pulse: Respiratory Rate: Laboratory Tests 03/07/19 12:12: White Blood Count 15.9H Blood Pressure / Mean: 03/07/19 12:16: Lactic Acid Level 1.82 Laboratory Tests 03/07/19 12:12: Creatinine 1.54H, INR Comment 0.9, Platelet Count 320, Total Bilirubin 0.3 Results/Orders Lab Results Laboratory Tests Test 03/07/19 12:12 03/07/19 12:15 03/07/19 12:16 Range/Units White Blood Count 15.9 H 4.3-11.0 10^3/uL Red Blood Count 4.89 4.35-5.85 10^6/uL Hemoglobin 12.3 L 13.3-17.7 G/DL Hematocrit 40 40-54 % Mean Corpuscular Volume 82 80-99 FL Mean Corpuscular Hemoglobin 25 25-34 PG Mean Corpuscular Hemoglobin Concent 31 L 32-36 G/DL Red Cell Distribution Width 17.9 H 10.0-14.5 % Platelet Count 320 130-400 10^3/uL Mean Platelet Volume 9.0 7.4-10.4 FL Neutrophils (%) (Auto) 95 H 42-75 % Lymphocytes (%) (Auto) 3 L 12-44 % Monocytes (%) (Auto) 2 0-12 % Eosinophils (%) (Auto) 0 0-10 % Basophils (%) (Auto) 0 0-10 % Neutrophils # (Auto) 15.0 H 1.8-7.8 X 10^3 Lymphocytes # (Auto) 0.5 L 1.0-4.0 X 10^3 Monocytes # (Auto) 0.4 0.0-1.0 X 10^3 Eosinophils # (Auto) 0.0 0.0-0.3 10^3/uL Basophils # (Auto) 0.0 0.0-0.1 10^3/uL Neutrophils % (Manual) 96 % Lymphocytes % (Manual) 1 % Monocytes % (Manual) 3 % Eosinophils % (Manual) 0 % Basophils % (Manual) 0 % Band Neutrophils 0 % Anisocytosis MODERATE Prothrombin Time 12.8 12.2-14.7 SEC INR Comment 0.9 0.8-1.4 Activated Partial Thromboplast Time 26 24-35 SEC Sodium Level 142 135-145 MMOL/L Potassium Level 4.1 3.6-5.0 MMOL/L Chloride Level 104 98-107 MMOL/L Carbon Dioxide Level 27 21-32 MMOL/L Anion Gap 11 5-14 MMOL/L Blood Urea Nitrogen 23 H 7-18 MG/DL Creatinine 1.54 H 0.60-1.30 MG/DL Estimat Glomerular Filtration Rate 45 BUN/Creatinine Ratio 15 Glucose Level 97 70-105 MG/DL Calcium Level 9.2 8.5-10.1 MG/DL Corrected Calcium 9.0 8.5-10.1 MG/DL Total Bilirubin 0.3 0.1-1.0 MG/DL Aspartate Amino Transf (AST/SGOT) 45 H 5-34 U/L Alanine Aminotransferase (ALT/SGPT) 27 0-55 U/L Alkaline Phosphatase 122 40-136 U/L Total Protein 7.5 6.4-8.2 GM/DL Albumin 4.2 3.2-4.5 GM/DL Glucometer 84 70-110 MG/DL Lactic Acid Level 1.82 0.50-2.00 MMOL/L Vital Signs/I&O 03/07/19 03/07/19 03/07/19 03/07/19 12:10 12:22 12:32 12:32 Temp 95.6 95.6 95.6 Pulse 106 106 106 Resp 22 22 22 B/P (MAP) 170/89 (116) 158/85 158/85 (109) Pulse Ox 98 100 100 100 O2 Delivery Nasal Cannula Nasal Cannula Nasal Cannula O2 Flow Rate 3.00 3.00 Capillary Refill : Progress Note : Time: 13:12 Progress Note The patient remained awake alert emergency department after receiving D50 in the field by the paramedics. Patient had a glucose upon arrival in the emergency department of 80. Patient ate a meal with good results. Dr. Page was kind enough to admit patient to observation. Departure Communication (Admissions) Time/Spoke to Admitting Phy: 13:13 Dr. Lao Impression Primary Impression: Hypoglycemia Additional Impression: Unresponsive state Disposition: ADMITTED INPATIENT Condition: Improved Admissions Decision to Admit Reason: Admit from ER (General) Decision to Admit/Date: Mar 07, 2019 Time/Decision to Admit Time: 13:21 Departure-Patient Inst. Referrals: [facility] [place] Primary Care Physician JEOVANNY PLAZA MD Mar 07, 2019 12:15
[2019-03-07 12:30] LABS: INR 0.9 (0.8-1.4); PROTHROMBIN TIME PATIENT 12.8 SEC (12.2-14.7)
--- NOTE | 2019-03-07 12:31 | NUR ---
Pt given juice, peanut butter and crackers at this time.
[2019-03-07 12:32] VITALS: BP 158/85
[2019-03-07 12:36] LABS: ALBUMIN 4.2 GM/DL (3.2-4.5); BILIRUBIN,TOTAL 0.3 MG/DL (0.1-1.0); CALCIUM 9.2 MG/DL (8.5-10.1); CREATININE SERUM 1.54 MG/DL (0.60-1.30); POTASSIUM 4.1 MMOL/L (3.6-5.0); TOTAL PROTEIN 7.5 GM/DL (6.4-8.2)
--- NOTE | 2019-03-07 12:44 | Diagnostic Imaging Report ---
INDICATION: Low blood sugar. TIME OF EXAM: 12:27 p.m. Correlation is made with prior chest from 02/22/2019. FINDINGS: The heart size is stable. There has been improved aeration to the right base since the prior examination. There may be some mild residual infiltrate or atelectasis in the right base. No effusion or pneumothorax is seen. IMPRESSION: Improved aeration to the right base when compared with examination from 02/22/2019. Dictated by: Dictated on workstation # [id number]
[2019-03-07 12:46] LABS: ANISOCYTOSIS MODERATE; BAND NEUTROPHILS 0 %; BASOPHILS % (MANUAL) 0 %; EOSINOPHILS % (MANUAL) 0 %; LYMPHOCYTES % (MANUAL) 1 %; MONOCYTES % (MANUAL) 3 %; NEUTROPHILS % (MANUAL) 96 %
--- NOTE | 2019-03-07 13:07 | NUR ---
Dr. Huff here seeing pt at this time.
[2019-03-07 13:32] LABS: BILIRUBIN,URINE NEGATIVE (NEGATIVE); CLARITY,URINE CLEAR; COLOR,URINE YELLOW; GLUCOSE, URINE (UA) 1+ (NEGATIVE); KETONES,URINE NEGATIVE (NEGATIVE); LEUKOCYTE ESTERASE ,URINE NEGATIVE (NEGATIVE); NITRITE,URINE NEGATIVE (NEGATIVE); PH,URINE 7 (5-9); PROTEIN,URINE 3+ (NEGATIVE); UROBILINOGEN,URINE NORMAL (NORMAL)
[2019-03-07 13:39] LABS: BACTERIA,URINE NEGATIVE /HPF
--- NOTE | 2019-03-07 15:00 | NUR ---
SWATI LEONARD admitted to room 418-1, with an admitting diagnosis of hypoglycemia , on 03/07/19 from ED via stretcher, accompanied by staff .SWATI LEONARD introduced to surroundings, call light, bed controls, phone, TV, temperature control, lights, meal times, smoking policy, visitor policy, side rail policy, bathrooms and showers. Patient Rights given to patient in the handbook. SWATI LEONARD verbalizes understanding that [facility] is not responsible for the loss or damage to any personal effects or valuables that are kept in the patients posession during their hospitalization. The following Patient Care Plans and discharge were discussed with the patient. SWATI LEONARD verbalizes understanding of Interdisciplinary Patient Education. Patient was informed about the Rapid Response Team and its purpose.
[2019-03-07 15:05] VITALS: BP 142/84
[2019-03-07] MEDS ORDERED: DEXTROSE 50% 50 ML (IMS) SYR IV PRN (15:15)
[2019-03-07] MEDS ORDERED: CATHETER FLUSH 10 ML SYR IV PRN (15:15)
[2019-03-07] MEDS ORDERED: NS IV 1000 ML 1,000 ML IV SCH (15:15)
[2019-03-07] MEDS ORDERED: TAMS0.4C98 PO (15:17)
--- NOTE | 2019-03-07 15:24 | History & Physical-Hospitalist ---
History of Present Illness HPI/Chief Complaint Chief complaint: Found down at home due to hypoglycemia History of present illness: This is a 68-year-old white male known to me from prior admission who went home then was unable to be successful bare so he was admitted to [facility] for 2 weeks return home but found down by his son with his head lodged under the bed for an undetermined amount of time. He was found to have glucose level too low to read on glucometer from paramedics so he was given D50 and patient regained consciousness. He lives at the [facility] but obviously we will need to likely set up permanent penitentiary placement due to inability to manage his medical issues at home alone and in need of 16/03 nursing care. Source: patient Exam Limitations: no limitations Date Seen 03/07/19 Time Seen by a Provider: 13:00 Attending Physician Laine Huff DO [facility] Referring Physician Date of Admission Mar 07, 2019 at 14:05 Home Medications & Allergies Home Medications Reviewed patient Home Medication Reconciliation performed by pharmacy medication reconciliations live truck technician and/or nursing. Patients Allergies have been reviewed. Allergies Allergies Coded Allergies No Known Drug Allergies (Cwtnntbl02/15/18) Past Eqoyzgg-Ffkouv-Kddqnl Hx Past Med/Social Hx: Reviewed Nursing Past Med/Soc Hx, Reviewed and Corrections made Patient Social History Marrital Status: single Employed/Student: retired Alcohol Use: Denies Use Alcohol Beverage of Choice: Beer Recreational Drug Use: No Smoking Status: Former Smoker Type Used: Cigarettes 2nd Hand Smoke Exposure: No Recent Foreign Travel: No Contact w/other who traveled: No Recent Hopitalizations: Yes (HEART CATH) Recent Infectious Disease Expo: No Immunizations Up To Date Tetanus Booster (TDap): Unknown Date of Pneumonia Vaccine: Dec 02, 2016 Date of Influenza Vaccine: May 24, 2018 Seasonal Allergies Seasonal Allergies: No Past Medical History Surgeries: Abdominal, Cardiac, Coronary Stent Respiratory: COPD Currently Using CPAP: No Currently Using BIPAP: No Cardiac: Atrial Fibrillation, Cardiomyopathy, Hypertension Sexually Transmitted Disease: No HIV/AIDS: No Genitourinary: Benign Prostatic Hyperpl, Kidney Infection, Prostate Problems, Renal Failure Gastrointestinal: Gastrointestinal Bleed, Irritable Bowel Musculoskeletal: Back Injury Endocrine: Diabetes, Insulin dep Loss of Vision: Bilateral Hearing Impairment: Denies Psychosocial: Anxiety, PTSD History of Blood Disorders: No Adverse Reaction to Blood Cade: No Family History No Pertinent Family Hx Review of Systems Constitutional: see HPI, malaise, weakness EENTM: no symptoms reported Respiratory: no symptoms reported Cardiovascular: no symptoms reported Gastrointestinal: no symptoms reported Genitourinary: no symptoms reported Musculoskeletal: no symptoms reported Skin: no symptoms reported Psychiatric/Neurological: Anxiety, Depressed All Other Systems Reviewed Negative Unless Noted: Yes Physical Exam Physical Exam Vital Signs Vital Signs - First Documented 03/07/19 03/07/19 12:10 12:22 Temp 95.6 Pulse 106 Resp 22 B/P (MAP) 170/89 (116) Pulse Ox 98 O2 Delivery Nasal Cannula O2 Flow Rate 3.00 Capillary Refill : Less Than 3 Seconds Height, Weight, BMI Height: 5'8.00" Weight: 173lbs. 5.0oz. [id number]; 30.1 BMI Method:Stated General Appearance: No Apparent Distress, WD/WN, Chronically ill Eyes: Right Eye Normal Inspection, Right Eye PERRL HEENT: PERRL/EOMI, Normal ENT Inspection, Pharynx Normal, Moist Mucous Membranes Neck: Full Range of Motion, Normal Inspection, Non Tender Respiratory: Chest Non Tender, Lungs Clear, Normal Breath Sounds, No Accessory Muscle Use, No Respiratory Distress Cardiovascular: Regular Rate, Rhythm, No Edema, No Gallop, No JVD, No Murmur, Normal Peripheral Pulses Gastrointestinal: Normal Bowel Sounds, No Organomegaly, No Pulsatile Mass, Non Tender, Soft Back: Normal Inspection, No CVA Tenderness, No Vertebral Tenderness Extremity: Normal Capillary Refill, Normal Inspection, Normal Range of Motion, Non Tender, No Calf Tenderness, No Pedal Edema Neurologic/Psychiatric: Alert, Oriented x3, No Motor/Sensory Deficits, Normal Mood/Affect, 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 Assessment/Plan Admission Diagnosis Assessment: Found down at home after [facility] unable to be m aintained at home in need of permanent penitentiary placement Severe hypoglycemia due to long-acting insulin Congestive heart failure Acute renal failure BPH recent urinary retention episode CAD Pacemaker Poor social situation Plan: Social work for placement back at [facility] permanently Hold insulin Initiate D5 IV fluids Admission Status: Observation Diagnosis/Problems Diagnosis/Problems (1) Unresponsive state Status: Acute (2) Hypoglycemia Status: Acute (3) Diabetes mellitus, type 2 Status: Chronic Qualifiers: 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: with assisted use Diabetes mellitus complication status: with circulatory complication Diabetes mellitus complication detail: with other circulatory complications Qualified Codes: E11.59 - Type 2 diabetes mellitus with other circulatory complications; Z79.4 - custodial (current) use of insulin (4) BPH (benign prostatic hyperplasia) Status: Chronic Qualifiers: Lower urinary tract symptom presence: unspecified whether lower urinary tract symptoms present Qualified Codes: N40.0 - Benign prostatic hyperplasia without lower urinary tract symptoms (5) Urinary retention due to benign prostatic hyperplasia Status: Chronic (6) PTSD (post-traumatic stress disorder) Status: Chronic (7) COPD (chronic obstructive pulmonary disease) Status: Chronic Qualifiers: COPD type: unspecified COPD Qualified Codes: J44.9 - Chronic obstructive pulmonary disease, unspecified (8) GERD (gastroesophageal reflux disease) Status: Chronic Qualifiers: Esophagitis presence: without esophagitis Qualified Codes: K21.9 - Gastro- esophageal reflux disease without esophagitis (9) Right foot drop Status: Chronic (10) Leg weakness, bilateral Status: Chronic (11) Poor appetite Status: Chronic (12) Debility Status: Chronic (13) Coronary artery disease Status: Chronic Qualifiers: Coronary Disease-Associated Artery/Lesion type: [place] artery [place] vs. transplanted heart: [place] heart Associated angina: without angina Qualified Codes: I25.10 - Atherosclerotic heart disease of [place] coronary artery without angina pectoris (14) Acute and chronic respiratory failure with hypoxia Status: Chronic LAINE HUFF DO Mar 07, 2019 15:24
[2019-03-07] MEDS ORDERED: ONDANSETRON 4 MG (ZOFRAN) ORAL DISSOLVE TAB PO PRN (15:30)
[2019-03-07] MEDS ORDERED: MELATONIN 3 MG TABLET PO PRN (15:30)
[2019-03-07] MEDS ORDERED: ONDANSETRON 4 MG/2 ML (SDV) Z0FRAN IVP PRN (15:30)
[2019-03-07] MEDS ORDERED: ACETAMINOPHEN 500 MG TAB (TYLENOL) PO PRN ×2 (15:30→20:15)
[2019-03-07] MEDS ORDERED: ALPRAZolam 0.25 MG (XANAX) TAB PO PRN (15:30)
[2019-03-07] MEDS ORDERED: CALCIUM CARBONATE 500 MG (TUMS) TAB.CHEW PO PRN (15:30)
[2019-03-07] MEDS ORDERED: DOCUSATE SODIUM 100 MG (COLACE) CAP PO PRN (15:30)
[2019-03-07] MEDS ORDERED: MELA10CA2 PO (15:35)
--- NOTE | 2019-03-07 15:37 | Consultation-Cardiology ---
HPI-Cardiology Cardiology Consultation: Date of Consultation 03/07/19 Date of Admission Attending Physician Laine Huff DO Admitting Physician [place] Consulting Physician Jose CHANDRA MD HPI: Time Seen by a Provider: 17:54 Chief Complaint: Altered mental status, hypoglycemia this is a 68-year-old gentleman with history of active smoking, diabetes, hypertension, hyperlipidemia, severe PAD, ischemic cardiomyopathy, CAD, he presents with hypoglycemia did Previously, I first saw as an inpatient consultation on 07/09/2018. He presented with GI bleeding with severe anemia. EGD demonstrated large peptic ulcer with no bleeding. He was on aggressive PPI. He received blood transfusions. Echocardiogram done on 07/09/2018 showed an EF of 2530 percent. Grade 2 diastolic dysfunction. Hypokinesis of the basal/mid anterior septal myocardium. PA pressure 46 mmHg. Possible atrial septal defect. Mild to moderate aortic regurgitation. Dilated left atrium of 4.4 cm. Coronary angiography was done on 07/16/2018 for acute systolic congestive heart failure and new onset cardiomyopathy. Coronary angiography revealed severe stenosis in the mid/distal LAD. Stenosis severity of 90 percent. Moderate ostial OM1 stenosis was noted. There is moderate stenosis in mid left circumflex artery. Chronic total occlusion of the proximal RCA with distal reconstitution and good collaterals from the left circumflex artery. Abdominal aortogram showed mtpn-xy-fjgvjnet disease in the right common/external iliac artery. Very likely occlusive disease in the mid right external iliac artery. Filling of the deep femoral artery is noted however there is no filling of the right SFA. There is faint reconstitution of the popliteal artery. This likely suggests a long occlusive segment from the right external iliac artery to the popliteal artery. Lower extremity is supplied by collaterals from the deep femoral artery. There is moderate to severe disease in the left common iliac artery with mild diffuse disease in the left external iliac artery. Severe diffuse disease is noted in the proximal left SFA with total occlusion in the distal SFA. There is a short segment of occlusion with reconstitution in the popliteal artery. FFR of the LAD was done which was 0.76. FFR of the first OM artery was 0.87. FFR of the left circumflex artery was 0.84. Therefore PCI was deferred of the mid left circumflex artery and OM1. The mid/distal LAD was treated with 2 long drug-eluting stent. The first stent that was placed in the distal LAD was 2.5 x 38 mm stent deployed at 18 holly. A second stent 2.5 x 15 mm drug-eluting stent was overlapped with the previous stent. The stent was deployed at 10 holly. Postdilatation was done at 18-20 holly. Further postdilatation was done with an NC Quantum 3.0 x 15 mm noncompliant balloon. Excellent results were noted. Patient will be given dual antiplatelet therapy, statin, lisinopril, beta [place]. Lifevest was given for primary prevention of sudden cardiac which was later dced since EF on Echocardiogram was 40-45%. Peripheral intervention on right and left SFA in 11/2018. Review of Systems-Cardiology Review of Systems Constitutional: As described under HPI; No As described under HPI, No no symptoms reported, No chills, No fever, No lightheadedness Eyes: No As described under HPI, No no symptoms reported, No blindness, No blurred vision, No contact lenses, No drainage, No decreased acuity, No foreign body sensation, No pain, No vision change Ears/Nose/Throat: No As described under HPI, No no symptoms reported, No chronic hearing loss, No ear discharge, No ear pain, No nasal drainage, No ulcerations Respiratory: No no symptoms reported; As described under HPI; No As described under HPI, No cough, No orthopnea, No shortness of breath, No SOB with excertion Cardiovascular: No no symptoms reported; As described under HPI; No As described under HPI, No chest pain, No edema, No irregular heart rate, No lightheadedness, No palpitations Gastrointestinal: No no symptoms reported, No As described under HPI, No abdomen distended, No abdominal pain, No blood streaked bowels, No constipation, No diarrhea, No nausea, No vomiting, No stool coloration changes Genitourinary: No As described under HPI, No burning, No dysuria, No discharge, No frequency, No flank pain, No hematuria, No urgency Skin: No rash, No skin related problems, No ulcerations Psychiatric/Neurological: No anxiety, No depression, No seizure, No focal weakness, No syncope Hematologic: No bleeding abnormalities OIZ-Jtutui-Oubosb Hx Patient Social History Alcohol Use: Denies Use Recreational Drug Use: No Smoking Status: Former Smoker Type Used: Cigarettes 2nd Hand Smoke Exposure: No Recent Foreign Travel: No Recent Infectious Disease Expo: No Immunizations Up To Date Tetanus Booster (TDap): Unknown Date of Pneumonia Vaccine: Dec 02, 2016 Date of Influenza Vaccine: May 24, 2018 Past Medical History PMH As described under Assessment. Allergies and Home Medications Allergies Coded Allergies: No Known Drug Allergies (Verified , 07/08/18) Home Medications Acetaminophen 500 Mg Tablet, 500-1,000 MG PO Q6H PRN for PAIN-MILD, (Reported) Albuterol Sulfate 6.7 Gm Hfa.aer.ad, 2 PUFF INH Q6H PRN for SHORTNESS OF BREATH, (Reported) Aspirin 81 Mg Tablet.dr, 81 MG PO DAILY, (Reported) Atorvastatin Calcium 80 Mg Tablet, 80 MG PO DAILY, (Reported) Bisacodyl 5 Mg Tablet.dr, 10 MG PO DAILY PRN for CONSTIPATION-4TH LINE, (Reported) Budesonide/Formoterol Fumarate 10.2 Gm Hfa.aer.ad, 2 PUFF IH BID, (Reported) Caffeine 200 Mg Tablet, 200-400 MG PO BID PRN for DROWSINESS, (Reported) Diphenhydramine HCl 25 Mg Tablet, 50 MG PO HS PRN for ALLERGIES/ANXIETY, (Reported) Finasteride 5 Mg Tablet, 5 MG PO DAILY, (Reported) Fish Oil/Borage/Flax/Om3,6,9#1 400 Mg Capsule, 1 CAP PO TID, (Reported) Furosemide 20 Mg Tablet, 20 MG PO DAILY, (Reported) Hydroxyzine HCl 25 Mg Tablet, 25 MG PO TID PRN for ANXIETY, (Reported) Insulin Detemir 100 Unit/1 Ml Insuln.pen, 50 UNIT SQ HS, (Reported) Lisinopril 10 Mg Tablet, 10 MG PO DAILY, (Reported) Melatonin 10 Mg Capsule, 10 MG PO HS, (Reported) Metoprolol Succinate 25 Mg Tab.er.24h, 25 MG PO BID, (Reported) Mirtazapine 30 Mg Tablet, 30 MG PO HS, (Reported) Pantoprazole Sodium 40 Mg Tablet.dr, 40 MG PO BID, (Reported) Paroxetine HCl 37.5 Mg Tab.er.24h, 37.5 MG PO HS, (Reported) Paroxetine HCl 12.5 Mg Tab.er.24h, 12.5 MG PO DAILY, (Reported) Potassium Chloride 10 Meq Tablet.er, 10 MEQ PO DAILY, (Reported) Prasugrel HCl 10 Mg Tablet, 10 MG PO DAILY, (Reported) Prazosin HCl 5 Mg Capsule, 5 MG PO HS, (Reported) Sucralfate 1 Gm Tablet, 1 GM PO ACHS, (Reported) Tamsulosin HCl 0.4 Mg Cap, 0.4 MG PO 1800, (Reported) Tramadol HCl 50 Mg Tablet, 50 MG PO TID PRN for PAIN-MODERATE, (Reported) LAST FILLED 11-23-2018 [facility] 62.5 Mcg Blst.w.dev, 1 PUFF INH DAILY, (Reported) Patient Home Medication List Home Medication List Reviewed: Yes Physical Exam-Cardiology Physical Exam Vital Signs/I&O 03/07/19 03/07/19 03/07/19 03/07/19 12:10 12:22 12:32 12:32 Temp 95.6 95.6 95.6 Pulse 106 106 106 Resp 22 22 22 B/P (MAP) 170/89 (116) 158/85 158/85 (109) Pulse Ox 98 100 100 100 O2 Delivery Nasal Cannula Nasal Cannula Nasal Cannula O2 Flow Rate 3.00 3.00 03/07/19 03/07/19 03/07/19 14:30 15:05 15:14 Temp 95.6 98.4 Pulse 99 100 Resp 20 26 B/P (MAP) 166/82 (110) 142/84 Pulse Ox 99 O2 Delivery Room Air Nasal Cannula Nasal Cannula O2 Flow Rate 3.00 3.00 3.00 Capillary Refill : Less Than 3 Seconds Constitutional: appears stated age, AAO x 3; No apparent distress; well- developed, well-nourished HEENT: PERRL; No normal ENT inspection, No TMs normal, No pharynx normal, No scleral icterus (R), No scleral icterus (L), No pale conjunctivae (R), No pale conjunctivae (L), No photophobia, No TM abnormal (R), No TM abnormal (L), No pharyngeal erythema, No tonsillar exudate, No other, No discharge, No EOMI; hearing is well preserved; No hard of hearing; oral hygience is good; No ulceration, No xanthelasmas are seen Neck: No non-tender, No full range of motion, No supple, No normal inspection, No carotid bruit, No limited range of motion, No lymphadenopathy (R), No lymphadenopathy (L), No tender lateral, No tender midline, No thyromegaly, No other; carotid pulses are 2 + bilaterally; No with good upstrokes Respiratory: No accessory muscle use, No respiratory distress, No chest tender, No chest expansion is symmetric; chest is bilaterally symmetric; No lungs clear to percussion; lungs clear to auscultation; No crackles, No rhonchi, No rales, No stridor, No wheezing, No pleural rub, No other Cardiovascular: regular rate-rhythm; No irregularly irregular, No extra beats, No parasternal heave is noted, No JVD, No edema, No bradycardia, No tachycardia, No point of maximal impulse, No cardiac thrills are palpable; S1 and S2; No gallop/S3, No gallop/S4, No diastolic murmur, No systolic murmur, No friction rub, No click, No other Gastrointestinal: No tender, No soft, No round, No distended, No pulsatile mass, No organomegaly, No guarding, No rebound, No tenderness, No hernia, No mass, No audible bowel sounds, No abnormal bowel sounds, No abdominal bruits, No spleenomegaly, No other Rectal: deferred Extremities: No normal range of motion, No non-tender, No normal inspection, No pedal edema, No calf tenderness, No normal capillary refill, No pelvis stable, No calf tenderness, No inflammation, No pedal edema, No slow capillary refill, No swelling, No other, No abrasion, No clubbing, No cyanosis, No ecchymosis, No laceration, No no lower extremity edema bilateral, No significant edema, No tenderness, No wound Neurologic/Psychiatric: no motor/sensory deficits, alert, normal mood/affect, oriented x 3, power is 5/5 both on sides Skin: No rash, No ulcerations Data Review Labs Laboratory Tests 03/07/19 12:12: White Blood Count 15.9H, Red Blood Count 4.89, Hemoglobin 12.3L, Hematocrit 40, Mean Corpuscular Volume 82, Mean Corpuscular Hemoglobin 25, Mean Corpuscular Hemoglobin Concent 31L, Red Cell Distribution Width 17.9H, Platelet Count 320, Mean Platelet Volume 9.0, Neutrophils (%) (Auto) 95H, Lymphocytes (%) (Auto) 3L, Monocytes (%) (Auto) 2, Eosinophils (%) (Auto) 0, Basophils (%) (Auto) 0, Neutrophils # (Auto) 15.0H, Lymphocytes # (Auto) 0.5L, Monocytes # (Auto) 0.4, Eosinophils # (Auto) 0.0, Basophils # (Auto) 0.0, Neutrophils % (Manual) 96, Lymphocytes % (Manual) 1, Monocytes % (Manual) 3, Eosinophils % (Manual) 0, Basophils % (Manual) 0, Band Neutrophils 0, Anisocytosis MODERATE, Prothrombin Time 12.8, INR Comment 0.9, Activated Partial Thromboplast Time 26, Sodium Level 142, Potassium Level 4.1, Chloride Level 104, Carbon Dioxide Level 27, Anion Gap 11, Blood Urea Nitrogen 23H, Creatinine 1.54H, Estimat Glomerular Filtration Rate 45, BUN/Creatinine Ratio 15, Glucose Level 97, Calcium Level 9.2, Corrected Calcium 9.0, Total Bilirubin 0.3, Aspartate Amino Transf (AST/SGOT) 45H, Alanine Aminotransferase (ALT/SGPT) 27, Alkaline Phosphatase 122, Total Protein 7.5, Albumin 4.2 03/07/19 12:15: Glucometer 84 03/07/19 12:16: Lactic Acid Level 1.82 03/07/19 13:25: Urine Color YELLOW, Urine Clarity CLEAR, Urine pH 7, Urine Specific [place] 1.010L, Urine Protein 3+H, Urine Glucose (UA) 1+H, Urine Ketones NEGATIVE, Urine Nitrite NEGATIVE, Urine Bilirubin NEGATIVE, Urine Urobilinogen NORMAL, Urine Leukocyte Esterase NEGATIVE, Urine RBC (Auto) 1+H, Urine RBC 2-5H, Urine WBC NONE, Urine Squamous Epithelial Cells NONE, Urine Crystals NONE, Urine Bacteria NEGATIVE, Urine Casts NONE, Urine Mucus NEGATIVE, Urine Culture Indicated CULTURE PENDING 03/07/19 15:57: Glucometer 72 A/P-Cardiology Assessment/Admission Diagnosis 1. Hypoglycemia 2. chronic systolic congestive heart failure, 3. Urinary retention, 4. Ischemic cardiomyopathy, 5. CAD, history of PCI to LAD, 6. PAD with previous history of lower extremity intervention, 7. History of GI bleeding, 8. Hypertension, 9. Hyperlipidemia, 10. Chronic kidney disease. Plan 1. Acute glycemia: Defer to Dr. Huff. 2. chronic systolic congestive heart failure, elevated BNP. Echocardiogram done in November 2018 showed an EF of 40-45 percent. Agree with Lasix. 3. Urinary retention, Dr. Byrne has been consulted. 4. Ischemic cardiomyopathy, continue beta [place], ROSEANNA inhibitor. 5. CAD, history of PCI to LAD, continue dual antiplatelet therapy. Continue beta [place], ROSEANNA inhibitor and statin therapy. 6. PAD with previous history of lower extremity intervention, already on dual antiplatelet therapy. Will request lower extremity bilateral arterial Dopplers. 7. History of GI bleeding, no evidence for active bleeding. 8. Hypertension, beta [place], ROSEANNA inhibitor 9. Hyperlipidemia, statin therapy 10. Chronic kidney disease. Complicated patient with numerous cardiac and medical pathologies. . Thank you for your consultation. Please call me if you have any questions. Kusum Chandra MD, FACP, FACC, FSCAI, FHRS, CCDS Interventional Cardiology Cardiac Electrophysiology Vascular Medicine and Endovascular Interventions Jose CHANDRA MD Mar 07, 2019 3:37 pm
--- NOTE | 2019-03-07 15:45 | NUR ---
SPOKE WITH PATIENT WELL GOING THRU THE EXTERNAL MED HISTORY TO COMPLETE THE MED REC. 11-23-2018 TRAMADOL 50MG #84/28DS- PATIENT SAYS HE ONLY TAKES IT NEEDED AND SOME DAYS DOES NOT EVEN TAKE IT AT ALL. OTC MEDICATIONS: ACETAMINOPHEN 500MG- 1 TO 2 Q 6 H PRN ASPIRIN 81MG- 1 D BISACODYL- 1 D CAFFEINE 200,G- 1-2 TS BID PRN BENADRYL 25MG- 2 HS FISH OIL WITH FLAX SEED- 1 TID MELATONIN 10MG - 1 HS
[2019-03-07 15:57] VITALS: BP 154/83
--- NOTE | 2019-03-07 16:19 | Diagnostic Imaging Report ---
PROCEDURE: CT head without contrast. TECHNIQUE: Multiple contiguous axial images were obtained through the brain without the use of intravenous contrast. Auto Exposure Controls were utilized during the CT exam to meet ALARA standards for radiation dose reduction. INDICATION: Fall yesterday. Found down. COMPARISON: None TECHNIQUE: Routine non contrast enhanced axial images were obtained from the skull base to the vertex. FINDINGS: The ventricles and cortical sulci are age-appropriate. There is no midline shift or mass-effect. No acute intracranial hemorrhage is seen. There is no CT evidence of acute territorial ischemia. No focal masses or collections are present. The calvarium is intact. Complete opacification is seen involving the right maxillary and right sphenoid sinuses with hyperdense secretions within the right sphenoid sinus. IMPRESSION: 1. No large acute territorial ischemia, hemorrhage or focal intra-axial mass. 2. Chronic sinusitis involving the right maxillary and sphenoid sinuses. Dictated by: Dictated on workstation # [id number]
[2019-03-07] MEDS: inSUlin ASPART (NovoLOG) 1 UNIT/0.01 ML (CHARGE PER UNIT) SC SCH ×2 (17:42→22:00)
[2019-03-07] MEDS: HYDROcodone/APAP 5 MG/325 MG (LORTAB) TAB PO PRN ×2 (17:43→22:01)
[2019-03-07 19:30] VITALS: BP 148/80
[2019-03-07] MEDS ORDERED: RT-ALBUTEROL SULF 2.5 MG/3 ML PRE-MIX VIAL INH PRN (19:45)
[2019-03-07] MEDS ORDERED: D5 NS 1000 ML IV SOLUTION 1,000 ML IV SCH (19:45)
[2019-03-07] MEDS ORDERED: NON-FORMULARY MEDICATION 1 EA EA (Hydroxyzine HCl 25 MG) PO PRN (19:45)
[2019-03-07] MEDS ORDERED: NON-FORMULARY MEDICATION 1 EA EA (Acetaminophen (Tylenol Extra Strength) 1,000 MG) PO PRN (19:45)
[2019-03-07] MEDS ORDERED: BISACODYL 5 MG (DULCOLAX) TABLET PO PRN (19:45)
[2019-03-07] MEDS ORDERED: diphenhydrAMINE 25 MG TAB (BENADRYL) PO PRN (19:45)
[2019-03-07] MEDS ORDERED: hydrOXYzine (VISTARIL/ATARAX) 25 MG capsule/tablet PO PRN (20:15)
[2019-03-07] MEDS ORDERED: NON-FORMULARY MEDICATION 1 EA EA (Melatonin 10 MG) PO SCH (21:00)
[2019-03-07] MEDS ORDERED: NON-FORMULARY MEDICATION 1 EA EA (Mirtazapine 30 MG) PO SCH (21:00)
[2019-03-07] MEDS ORDERED: NON-FORMULARY MEDICATION 1 EA EA (Budesonide/Formoterol Fumarate (Symbicort 160-4.5 Mcg In IH SCH (21:00)
[2019-03-07] MEDS: SENNA W/DOCUSATE (SENOKOT S) TABLET PO SCH (22:02)
[2019-03-07] MEDS: MELATONIN 3 MG TABLET PO SCH (22:02)
[2019-03-07] MEDS: MIRTAZAPINE 15 MG (REMERON) TAB PO SCH (22:02)
[2019-03-07] MEDS: PANTOPRAZOLE 40 MG (PROTONIX) TAB PO SCH (22:02)
[2019-03-07] MEDS: SUCRALFATE 1 GM (CARAFATE) TAB PO SCH (22:03)
--- NOTE | 2019-03-07 22:05 | NUR ---
3 units of insulin due per sliding scale. pt states that he doesn't want to take insulin. states that doesn't treat at home til over 200 and with having low sugars earlier would rather not treat. Insulin not given
[2019-03-08] VITALS (7 sets, daily range): BP systolic 129–151; BP diastolic 66–77
[2019-03-08] MEDS: HYDROcodone/APAP 5 MG/325 MG (LORTAB) TAB PO PRN ×4 (03:55→21:17)
[2019-03-08 05:20] LABS: BASOPHILS % (AUTO) 0 % (0-10); EOSINOPHILS # (AUTO) 0.1 10^3/uL (0.0-0.3); EOSINOPHILS % (AUTO) 1 % (0-10); HEMATOCRIT 36 % (40-54); LYMPHOCYTES % (AUTO) 12 % (12-44); MEAN CORPUSCULAR HEMOGLOBIN 25 PG (25-34); MEAN CORPUSCULAR HGB CONC 30 G/DL (32-36); MEAN CORPUSCULAR VOLUME 82 FL (80-99); MEAN PLATELET VOLUME 9.1 FL (7.4-10.4); MONOCYTES # (AUTO) 0.7 X 10^3 (0.0-1.0); MONOCYTES % (AUTO) 8 % (0-12); NEUTROPHILS # (AUTO) 6.4 X 10^3 (1.8-7.8); NEUTROPHILS % (AUTO) 78 % (42-75); PLATELET COUNT 287 10^3/uL (130-400); RED CELL DISTRIBUTION WIDTH 18.2 % (10.0-14.5); WHITE BLOOD COUNT 8.2 10^3/uL (4.3-11.0)
[2019-03-08 05:44] LABS: ALBUMIN 3.7 GM/DL (3.2-4.5); BILIRUBIN,TOTAL 0.3 MG/DL (0.1-1.0); CALCIUM 9.1 MG/DL (8.5-10.1); CREATININE SERUM 1.49 MG/DL (0.60-1.30); POTASSIUM 4.6 MMOL/L (3.6-5.0); TOTAL PROTEIN 6.4 GM/DL (6.4-8.2)
[2019-03-08] MEDS: UMECLIDINIUM BROMIDE (INCRUSE ELLIPTA) 7'S IH SCH (06:20)
[2019-03-08] MEDS: RT-ADVAIR HFA 115/21 MCG PER PUFF IH SCH ×2 (06:20→18:32)
[2019-03-08] MEDS: inSUlin ASPART (NovoLOG) 1 UNIT/0.01 ML (CHARGE PER UNIT) SC SCH ×4 (06:27→21:17)
[2019-03-08] MEDS: SUCRALFATE 1 GM (CARAFATE) TAB PO SCH ×4 (06:27→21:17)
[2019-03-08] MEDS: PANTOPRAZOLE 40 MG (PROTONIX) TAB PO SCH ×2 (06:27→21:18)
[2019-03-08] MEDS ORDERED: PAROXETINE HCL 12.5 MG PO SCH (09:00)
[2019-03-08] MEDS ORDERED: PRASUGREL HCL 10 MG PO SCH (09:00)
--- NOTE | 2019-03-08 09:08 | Diagnostic Imaging Report ---
INDICATION: Hypoglycemia, unresponsive. TECHNIQUE: Single view chest at 3:19 AM. CORRELATION STUDY: 03/07/2019. FINDINGS: Continued area of infiltrate at the right lung base. Remaining lung brown appear unchanged. Heart size and vasculature do remain prominent. IMPRESSION: 1. Continued area of infiltrate at the right lung base may be slightly improved. 2. Borderline heart size and vasculature again demonstrated. Dictated by: Dictated on workstation # [id number]
[2019-03-08] MEDS: ASPIRIN E.C. 81 MG (ECOTRIN) TAB PO SCH (09:21)
[2019-03-08] MEDS: FINASTERIDE (PROSCAR) 5 MG TAB PO SCH (09:21)
[2019-03-08] MEDS: KCL 10 MEQ TAB (MICRO K) PO SCH (09:21)
[2019-03-08] MEDS: PRASUGREL 10 MG (EFFIENT) TABLET PO SCH (09:21)
[2019-03-08] MEDS: ATORVASTATIN 80 MG (LIPITOR) TABLET PO SCH (09:21)
[2019-03-08] MEDS: FUROSEMIDE 20 MG (LASIX) TAB PO SCH (09:21)
[2019-03-08] MEDS: SENNA W/DOCUSATE (SENOKOT S) TABLET PO SCH ×2 (09:21→21:18)
[2019-03-08] MEDS: lisINopril 10 MG (PRINIVIL) TABLET PO SCH (09:22)
--- NOTE | 2019-03-08 09:46 | Progress Note - Hospitalist ---
Subjective HPI/CC On Admission Date Seen by Provider: Mar 08, 2019 Time Seen by Provider: 09:00 Chief complaint: Found down at home due to hypoglycemia History of present illness: This is a 68-year-old white male known to me from prior admission who went home then was unable to be successful bare so he was admitted to [facility] for 2 weeks return home but found down by his son with his head lodged under the bed for an undetermined amount of time. He was found to have glucose level too low to read on glucometer from paramedics so he was given D50 and patient regained consciousness. He lives at the [facility] but obviously we will need to likely set up permanent intermediate placement due to inability to manage his medical issues at home alone and in need of 24/ nursing care. Subjective/Events-last exam Pt doing much better today. [place] intermediate placement as he did last Fall. Inpatient rehab is not an option since he is independent, ambulating 500 feet. Creatinine improved to 1.4. Will discontinue the D5 normal saline IV fluid at 40 CCs an hour given for the hypoglycemia her had yesterday. Looking at assisted living with his son. No other pain is reported except for his feet. Home meds were restarted. Review of Systems General: Fatigue Musculoskeletal: foot pain Focused Exam Lactate Level 03/07/19 12:16: Lactic Acid Level 1.82 Objective Exam Vital Signs Vital Signs Date Time Temp Pulse Resp B/P (MAP) Pulse Ox O2 Delivery O2 Flow Rate FiO2 03/08/19 18:32 98 Nasal Cannula 3.00 03/08/19 16:35 97.1 100 20 151/75 (100) 03/07/19 20:30 3 Capillary Refill : Less Than 3 Seconds General Appearance: No Apparent Distress, WD/WN, Chronically ill HEENT: PERRL/EOMI, Normal ENT Inspection, Pharynx Normal, Moist Mucous Mem branes Neck: Full Range of Motion, Normal Inspection, Non Tender Respiratory: Chest Non Tender, Lungs Clear, Normal Breath Sounds, No Accessory Muscle Use, No Respiratory Distress Cardiovascular: Regular Rate, Rhythm, No Edema, No Gallop, No JVD, No Murmur, Normal Peripheral Pulses Gastrointestinal: Normal Bowel Sounds, No Organomegaly, No Pulsatile Mass, Non Tender, Soft Back: Normal Inspection, No CVA Tenderness, No Vertebral Tenderness Extremity: Normal Capillary Refill, Normal Inspection, Normal Range of Motion, Non Tender, No Calf Tenderness, No Pedal Edema Neurologic/Psychiatric: Alert, Oriented x3, No Motor/Sensory Deficits, Normal Mood/Affect, 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 Assessment/Plan Assessment and Plan Assess & Plan/Chief Complaint Assessment: Found down at home after recent discharge from intermediate unable to be maintained at home in need of permanent intermediate placement but refuses NH but willing to look at AL versus back home at apt with closer family contact Severe hypoglycemia due to long-acting insulin- now resolved and HLIVF D5 Congestive heart failure Acute renal failure BPH recent urinary retention episode CAD Pacemaker Poor social situation Plan: Social work for placement Hold insulin HL D5 IV fluids Diagnosis/Problems Diagnosis/Problems (1) Unresponsive state Status: Resolved Resolution Date/Time: 03/08/19 @ 19:23 (2) Hypoglycemia Status: Resolved Resolution Date/Time: 03/08/19 @ 19:23 (3) Diabetes mellitus, type 2 Status: Chronic Qualifiers: Diabetes mellitus nursing home insulin use: with longwall shearer operator use Diabetes mellitus complication status: with circulatory complication Diabetes mellitus complication detail: with other circulatory complications Qualified Codes: E11.59 - Type 2 diabetes mellitus with other circulatory complications; Z79.4 - terminal gauger (current) use of insulin (4) BPH (benign prostatic hyperplasia) Status: Chronic Qualifiers: Lower urinary tract symptom presence: unspecified whether lower urinary tract symptoms present Qualified Codes: N40.0 - Benign prostatic hyperplasia without lower urinary tract symptoms (5) Urinary retention due to benign prostatic hyperplasia Status: Chronic (6) PTSD (post-traumatic stress disorder) Status: Chronic (7) COPD (chronic obstructive pulmonary disease) Status: Chronic Qualifiers: COPD type: unspecified COPD Qualified Codes: J44.9 - Chronic obstructive pulmonary disease, unspecified (8) GERD (gastroesophageal reflux disease) Status: Chronic Qualifiers: Esophagitis presence: without esophagitis Qualified Codes: K21.9 - Gastro- esophageal reflux disease without esophagitis (9) Right foot drop Status: Chronic (10) Leg weakness, bilateral Status: Chronic (11) Poor appetite Status: Chronic (12) Debility Status: Chronic (13) Coronary artery disease Status: Chronic Qualifiers: Coronary Disease-Associated Artery/Lesion type: [place] artery [place] vs. transplanted heart: [place] heart Associated angina: without angina Qualified Codes: I25.10 - Atherosclerotic heart disease of [place] coronary artery without angina pectoris (14) Acute and chronic respiratory failure with hypoxia Status: Chronic Clinical Quality Measures DVT/VTE Risk/Contraindication: Risk Factor Score Per Nursin RFS Level Per Nursing on Admit: 2=Moderate FRANCA LAO DO Mar 08, 2019 09:46
--- NOTE | 2019-03-08 09:56 | Diagnostic Imaging Report ---
PROCEDURE: US Venous Lower Ext [place]. TECHNIQUE: Multiple Real-time grayscale images were obtained over the lower extremities in various projections, bilaterally. Additional duplex Doppler and color Doppler images were also obtained. INDICATION: Leg swelling. COMPARISON: There are no prior studies available for comparison. FINDINGS: There is generally good blood flow and compressibility at all levels. There is no evidence for deep venous thrombosis in either lower extremity. IMPRESSION: There is no evidence for deep venous thrombosis in either lower extremity. Dictated by: Dictated on workstation # [id number]
--- NOTE | 2019-03-08 10:08 | Physical Therapy Evaluation ---
PT Evaluation-General Medical Diagnosis Admission Date Mar 07, 2019 at 14:05 Medical Diagnosis: hypoglycemia/unresponsive Onset Date: Mar 07, 2019 Therapy Diagnosis Therapy Diagnosis: debility Height/Weight Height (Feet): 5 Height (Inches): 8.00 Weight (Pounds): 193 Weight (Ounces): 6.1 Precautions Precautions/Isolations: Fall Prevention, Standard Precautions Referral Physician: Refugio Reason for Referral: Evaluation/Treatment Medical History Pertinent Medical History: Atrial Fib, Alcoholism, CAD, COPD, DM, HTN, Neuropathy, Smoking Additional Medical History drop foot right prior Current History EMS found patient unresponsive with dried emesis on face and scalp and decreased blood sugar Reviewed History: Yes Social History Home: Apartment Current Living Status: Alone Entry Into Home: Level Entry Prior/Core FIM Prior Level of Function Therapy Code Descriptions/Definitions Functional [place] Measure: 0=Not Assessed/NA 4=Minimal Assistance 1=Total Assistance 5=Supervision or Setup 2=Maximal Assistance 6=Modified [place] 3=Moderate Assistance 7=Complete [place] Therapy Quality Codes: 6 Independent with activity with or without an assistive device 5 Patient requires set up or clean up by helper. Patient completes activity by themselves 4 Supervision or touching assist (CGA). [place] provide cues , steadying assist 3 The helper provides less than half the effort to complete the activity 2 The helper provides more than half the effort to complete the activity 1 Dependent. The helper does all the effort to complete an activity 7 Patient refused to complete or attempt activity 9 The patient did not perform the activity before the current illness or injury 88 Not attempted due to Medical conditions or safety concerns Functional Abilities and Goals: Independent: Patient completed the activities by him/herself, with or without an assistive device, with no assistance from a helper. Needed Some Help: Patient needed partial assistance from another person to complete activities. Dependent: A helper completed the activities for the patient. Unknown: Not Applicable: Bed Mobility: 7 Transfers (B,C,W/C) (FIM): 7 Gait: 7 Indoor Mobility (Ambulation): Independent Prior Devices Use: None PT Evaluation-Current Subjective Patient reports he feels much better and agrees to PT. Pain Numeric Pain Scale: 0-No Pain Location: No Pain Reported Objective Patient Orientation: Normal For Age Problem Solving: Good Attachments: Oxygen, IV ROM/Strength ROM Lower Extremities bilateral LE WFL Strength Lower Extremities right drop foot/4/5 right knee flexion/extension and hip flexion left LE 4/5 Integumentary/Posture Integumentary refer to nursing notes Bowel Incontinence: No Bladder Incontinence: No Posture WFL Neuromuscular (Tone, Coordination, Reflexes) grossly intact with exception to right foot drop Sensory Vision: Functional Hearing: Functional Sensation Right Lower Extremit: Impaired Sensation Left Lower Extremity: Impaired Transfers Therapy Code Descriptions/Definitions Functional [place] Measure: 0=Not Assessed/NA 4=Minimal Assistance 1=Total Assistance 5=Supervision or Setup 2=Maximal Assistance 6=Modified [place] 3=Moderate Assistance 7=Complete [place] Transfers (B, C, W/C) (FIM): 7 Scootin Rollin Supine to/from Sit: 7 Sit to/from Stand: 7 Gait Mode of Locomotion: Walk Anticipated Mode of Locomotion: Walk Gait (FIM): 7 Distance (FIM): 3=150 ft Distance: 500' Gait Level of Assist: 7 Gait Assistive Device: None Comments/Gait Description safe and functional with no deviation Balance Sitting Static: Normal Sitting Dynamic: Normal Standing Static: Normal Standing Dynamic: Normal Assessment/Needs 68 y.o. male, is currently at [facility] with all gross motor skills and does not require skilled therapy intervention. Patient has been instructed to ambulate PRN in room if not attached to IV. RN present and aware. Rehab Potential: Fair Post Rehab Potential-Barriers: compliance PT Plan Treatment/Plan Treatment Plan: Discontinue PT, goals met Treatment Plan: Other Treatment Duration: Mar 08, 2019 Frequency: 1 time per week Estimated Hrs Per Day: .25 hour per day Patient and/or Family Agrees t: Yes Discharge Recommendations Therapy D/C Recommendations: Home Independently Time/GCodes Time In: 913 Time Out: 933 Total Billed Treatment Time: 30 Total Billed Treatment 1 visit EVMod 20 min YONG TODD PT Mar 08, 2019 10:08
--- NOTE | 2019-03-08 10:16 | NUR ---
IRF Evaluation Order received to evaluate patient for the ARU. According to PT Evaluation, patient is ambulating (500ft, w/o AD) and transferring with independence; therefore, the patient does not require intensive therapies, at this time. Dr. Huff notified. Thank you for this referral.
[2019-03-08] MEDS: PRAZOSIN 5 MG PO SCH ×2 (10:27→21:22)
[2019-03-08] MEDS: PAROXETINE HCL 37.5 MG PO SCH ×2 (10:27→21:21)
--- NOTE | 2019-03-08 11:22 | Occupational Therapy Eval ---
OT Evaluation-General/PLF Medical Diagnosis Admission Date Mar 07, 2019 at 14:05 Medical Diagnosis: hypoglycemia/unresponsive Onset Date: Mar 07, 2019 Therapy Diagnosis Therapy Diagnosis: impaired ADLs and mobility Height/Weight Height (Feet): 5 Height (Inches): 8.00 Weight (Pounds): 193 Weight (Ounces): 6.1 Precautions Precautions/Isolations: Fall Prevention, Standard Precautions Safety Interventions: None Weight Bear Status Weight Bearing Restriction: Weight Bearing/Tolerated Referral Physician: Refugio Referral Reason: Activity Tolerance, Self Care, Strengthening/ROM Medical History Pertinent Medical History: Atrial Fib, Alcoholism, CAD, COPD, DM, HTN, Neuropathy, Smoking Current History per H&P: "History of present illness: This is a 68-year-old white male known to me from prior admission who went home then was unable to be successful bare so he was admitted to [facility] for 2 weeks return home but found down by his son with his head lodged under the bed for an undetermined amount of time. He was found to have glucose level too low to read on glucometer from paramedics so he was given D50 and patient regained consciousness. He lives at the [facility] but obviously we will need to likely set up permanent prison placement due to inability to manage his medical issues at home alone and in need of 24/7 nursing care." Reviewed History: Yes Social History Home: Apartment Current Living Status: Alone Entry Into Home: Level Entry ADL-Prior Level of Function Therapy Code Descriptions/Definitions Functional [place] Measure: 0=Not Assessed/NA 4=Minimal Assistance 1=Total Assistance 5=Supervision or Setup 2=Maximal Assistance 6=Modified [place] 3=Moderate Assistance 7=Complete [place] Therapy Quality Codes: 6 Independent with activity with or without an assistive device 5 Patient requires set up or clean up by helper. Patient completes activity by themselves 4 Supervision or touching assist (CGA). [place] provide cues , steadying assist 3 The helper provides less than half the effort to complete the activity 2 The helper provides more than half the effort to complete the activity 1 Dependent. The helper does all the effort to complete an activity 7 Patient refused to complete or attempt activity 9 The patient did not perform the activity before the current illness or injury 88 Not attempted due to Medical conditions or safety concerns Functional Abilities and Goals: Independent: Patient completed the activities by him/herself, with or without an assistive device, with no assistance from a helper. Needed Some Help: Patient needed partial assistance from another person to complete activities. Dependent: A helper completed the activities for the patient. Unknown: Not Applicable: ADL PLOF Comments pt stated he has caregiver 5 hours per day to complete grocery shopping and cleaning. Self Care: Independent Functional Cognition: Independent DME/Equipment: Bath Chair, Tub/Shower Drive Self: No OT Current Status Subjective pt sitting in recliner chair upon OT arrival in no apparent distress. pt stated he suffers from panic attacks from the pain in his [place] feet. pt stated when his pain increases it leads to panic attack which decrease his sugar and he become unconscious. pt agreed to OT evaluation session. pt reports 6/10 pain in right foot Mental Status/Objective Patient Orientation: Person, Place, Time, Situation Attachments: Oxygen (3L [place]. pt stated he normally weared 2L [place] at home/. ) Current Glasses/Contacts: Yes Hearing Aids: No Dentures/Partials: No Hand Dominance: Right Upper Extremity ROM WNL Upper Extremity Coordination WNL Upper Extremity Sensation WNL Upper Extremity Strength 5/5 MMT ADL-Treatment Therapy Code Descriptions/Definitions Functional [place] Measure: 0=Not Assessed/NA 4=Minimal Assistance 1=Total Assistance 5=Supervision or Setup 2=Maximal Assistance 6=Modified [place] 3=Moderate Assistance 7=Complete [place] Therapy Quality Codes: 6 Independent with activity with or without an assistive device 5 Patient requires set up or clean up by helper. Patient completes activity by themselves 4 Supervision or touching assist (CGA). [place] provide cues , steadying assist 3 The helper provides less than half the effort to complete the activity 2 The helper provides more than half the effort to complete the activity 1 Dependent. The helper does all the effort to complete an activity 7 Patient refused to complete or attempt activity 9 The patient did not perform the activity before the current illness or injury 88 Not attempted due to Medical conditions or safety concerns pt demo independence with ADLs and functional transfers. OT Short Term Goals Short Term Goals 1=Demonstrate adherence to instructed precautions during ADL tasks. 2=Patient will verbalize/demonstrate understanding of assistive devices/modifications for ADL. 3=Patient will improve strength/tolerance for activity to enable patient to perform ADL's. OT Usp Goals Usp Goals 1=Demonstrate adherence to instructed precautions during ADL tasks. 2=Patient will verbalize/demonstrate understanding of assistive devices/modifications for ADL. 3=Patient will improve strength/tolerance for activity to enable patient to perform ADL's. OT Education/Plan Problem List/Assessment Assessment: No Skilled OT Needs ID'd pt demo independence with ADLs (bathing, UE/ LB dressing, toileting, dry shower transfer) and functional transfers using no AD and good safety awareness. OT s ervices not indicated secondary to pt functioning at [facility]. pt agreed he does not need OT services. d/c OT services at this time. Discharge Recommendations Plan/Recommendations: Discontinue OT Therapy D/C Recommendations: Home w/ Family Support Treatment Plan/Plan of Care Treatment,Training & Education: Yes Treatment Duration: Mar 08, 2019 Frequency: 1 time per week (eval only) Estimated Hrs Per Day: Other (eval only) Rehab Potential: Fair Time/GCodes Start Time: 11:05 Stop Time: 11:25 Billed Treatment Time EVL 20 minutes KENNEY JONES OT Mar 08, 2019 11:22
--- NOTE | 2019-03-08 12:14 | NUR ---
CM/SS, respond to consult for change in independent living arrangement to more of an assistive environment. PLAN: Son Rodrigo Nicholas has appointment today with [facility] to explore a room there and patient's finances, Medicaid QMB change to HCBS waiver and application for VA assistance. SUMMARY: Visited with patient who is alert and oriented today. He indicates he "had a panic attack while he was sleeping" that lead to him being admitted this time. EMR reflects he was hypoglycemic and was found in an unresponsive state by a family member who had come to pick him up for an appointment. Patient resides at [facility]. We discussed admission to [facility] for 16/03 RN and care, monitor of his diabetes, diet, Rx. Patient is not in agreement to admit to a nursing facility. We discussed assisted living options, he appears to function at an acceptable level for [facility] if he allowed them to manage all Rx and diabetic care. Patient has Medicare and Medicaid (QMB Waiver). Regarding the QMB, patient would need to apply for the waiver for [facility] for assistance with assisted living expense. He is also a and may have benefits for housing assistance. Pros for assisted living: Patient would continue to have a level of independence with the overall support and management he appears to need. Patient would have regular and more appropriate nutrition and regular meal times. RN oversight and availability, Rx management. Staff 16/03 in case of crisis or need, med alert, socialization. Cons per patient: He does not want to use the majority of his funds for [facility] and definitely does not want to be limited to the small allowance of about $60 monthly. Patient indicated he did not want to "give up his treats" which he clarified to be cookies and donuts. 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 Additionally, patient is getting newly awarded VA pension of $172 monthly. He indicates he has more money now than he has in a very long time and that he does not want to give that up with a change in living arrangement. Per update from lara Wallace, patient was more onboard for [facility] after senior copywriter's visit. Appointment today as noted above.
--- NOTE | 2019-03-08 15:48 | Cardiology Progress Note ---
Cardiology SOAP Progress Note Subjective: Much improved. Objective: I&O/Vital Signs 03/08/19 03/08/19 03/08/19 03/08/19 04:37 06:20 06:22 08:00 Temp 97.0 97.2 Pulse 96 105 Resp 18 22 B/P (MAP) 133/77 (95) 133/73 (93) Pulse Ox 99 98 98 99 O2 Delivery Nasal Cannula Nasal Cannula Nasal Cannula Nasal Cannula O2 Flow Rate 3.00 2.00 2.00 3.00 03/08/19 03/08/19 03/08/19 03/08/19 08:00 11:26 12:00 15:35 Temp 97.2 98.5 98.5 Pulse 93 Resp 20 B/P (MAP) 149/77 (101) Pulse Ox 97 100 O2 Delivery Room Air Nasal Cannula O2 Flow Rate 3.00 03/07/19 23:59 Intake Total 1120 ml Output Total 475 ml Balance 645 ml Weight (Pounds): 193 Weight (Ounces): 6.1 Weight (Calculated Kilograms): 87.326072 Constitutional: appears stated age, AAO x 3; No apparent distress; well- developed, well-nourished Respiratory: No accessory muscle use, No respiratory distress, No chest tender, No chest expansion is symmetric; chest is bilaterally symmetric; No lungs clear to percussion; lungs clear to auscultation; No crackles, No rhonchi, No rales, No stridor, No wheezing, No pleural rub, No other Cardiovascular: regular rate-rhythm; No irregularly irregular, No extra beats, No parasternal heave is noted, No JVD, No edema, No bradycardia, No tachycardia, No point of maximal impulse, No cardiac thrills are palpable; S1 and S2; No gallop/S3, No gallop/S4, No diastolic murmur, No systolic murmur, No friction rub, No click, No other Gastrointestional: No tender, No soft, No round, No distended, No pulsatile mass, No organomegaly, No guarding, No rebound, No tenderness, No hernia, No mass, No audible bowel sounds, No abnormal bowel sounds, No abdominal bruits, No spleenomegaly, No other Extremities: No normal range of motion, No non-tender, No normal inspection, No pedal edema, No calf tenderness, No normal capillary refill, No pelvis stable, No calf tenderness, No inflammation, No pedal edema, No slow capillary refill, No swelling, No other, No abrasion, No clubbing, No cyanosis, No ecchymosis, No laceration, No no lower extremity edema bilateral, No significant edema, No tenderness, No wound Neurologic/Psychiatric: no motor/sensory deficits, alert, normal mood/affect, oriented x 3, power is 5/5 both on sides Skin: No rash, No ulcerations Results/Procedures: Labs Laboratory Tests 03/07/19 15:57: Glucometer 72 03/07/19 22:05: Glucometer 185H 03/08/19 05:00: White Blood Count 8.2, Red Blood Count 4.43, Hemoglobin 11.0L, Hematocrit 36L, Mean Corpuscular Volume 82, Mean Corpuscular Hemoglobin 25, Mean Corpuscular Hemoglobin Concent 30L, Red Cell Distribution Width 18.2H, Platelet Count 287, Mean Platelet Volume 9.1, Neutrophils (%) (Auto) 78H, Lymphocytes (%) (Auto) 12, Monocytes (%) (Auto) 8, Eosinophils (%) (Auto) 1, Basophils (%) (Auto) 0, Neutrophils # (Auto) 6.4, Lymphocytes # (Auto) 1.0, Monocytes # (Auto) 0.7, Eosinophils # (Auto) 0.1, Basophils # (Auto) 0.0, Sodium Level 138, Potassium Level 4.6, Chloride Level 104, Carbon Dioxide Level 25, Anion Gap 9, Blood Urea Nitrogen 17, Creatinine 1.49H, Estimat Glomerular Filtration Rate 47, B UN/Creatinine Ratio 11, Glucose Level 235H, Calcium Level 9.1, Corrected Calcium 9.3, Total Bilirubin 0.3, Aspartate Amino Transf (AST/SGOT) 39H, Alanine Aminotransferase (ALT/SGPT) 23, Alkaline Phosphatase 130, Total Protein 6.4, Albumin 3.7 03/08/19 05:11: Glucometer 219H 03/08/19 10:56: Glucometer 190H Microbiology 03/07/19 Blood Culture - Preliminary, Resulted No growth 03/07/19 Urine Culture - Final, Complete NO GROWTH A/P: Assessment/Dx: 1. Hypoglycemia 2. chronic systolic congestive heart failure, 3. Urinary retention, 4. Ischemic cardiomyopathy, 5. CAD, history of PCI to LAD, 6. PAD with previous history of lower extremity intervention, 7. History of GI bleeding, 8. Hypertension, 9. Hyperlipidemia, 10. Chronic kidney disease. Plan: 1. Acute hypoglycemia: Defer to Dr. Huff. 2. chronic systolic congestive heart failure, elevated BNP. Echocardiogram done in November 2018 showed an EF of 40-45 percent. Agree with Lasix. 3. Urinary retention, Dr. Byrne has been consulted. 4. Ischemic cardiomyopathy, continue beta [place], ROSEANNA inhibitor. 5. CAD, history of PCI to LAD, continue dual antiplatelet therapy. Continue beta [place], ROSEANNA inhibitor and statin therapy. 6. PAD with previous history of lower extremity intervention, already on dual antiplatelet therapy. Will request lower extremity bilateral arterial Dopplers. 7. History of GI bleeding, no evidence for active bleeding. 8. Hypertension, beta [place], ROSEANNA inhibitor 9. Hyperlipidemia, statin therapy 10. Chronic kidney disease. Complicated patient with numerous cardiac and medical pathologies. . Thank you for your consultation. Please call me if you have any questions. Kusum Chandra MD, FACP, FACC, FSCAI, FHRS, CCDS Interventional Cardiology Cardiac Electrophysiology Vascular Medicine and Endovascular Interventions Focused Exam Lactate Level 03/07/19 12:16: Lactic Acid Level 1.82 Jose CHANDRA MD Mar 08, 2019 15:48
[2019-03-08] MEDS ORDERED: TAMSULOSIN 0.4 MG (FLOMAX) CAP PO SCH (18:00)
[2019-03-08] MEDS: MELATONIN 3 MG TABLET PO SCH (21:18)
[2019-03-08] MEDS: MIRTAZAPINE 15 MG (REMERON) TAB PO SCH (21:18)
--- NOTE | 2019-03-08 22:38 | Diagnostic Imaging Report ---
PROCEDURE: US Bilateral lower extremity arterial. TECHNIQUE: Multiple real-time grayscale images are obtained through both lower extremity arterial systems with color Doppler imaging and color Doppler spectral analysis. INDICATION: 3 stents in both legs per patient. Right hip pain. EXAMINATION: Bilateral lower extremity arterial Doppler 03/08/2019 FINDINGS: No hemodynamically significant stenosis appreciated. There is biphasic flow throughout the vessels of both upper extremities from the popliteal arteries proximally. Biphasic flow is seen throughout the remaining left lower extremity with monophasic flow seen in the foot on the right. There is a slightly elevated velocity seen in the left distal superficial femoral artery as compared to the more proximal vessels, however, significant stenosis is not appreciated but given the patient's apparent history of stents CTA imaging could better evaluate the arterial structures if clinically indicated. IMPRESSION: 1. Somewhat elevated velocity in the left distal superficial femoral artery as compared to the more proximal arteries, however, hemodynamically significant stenosis is not seen on either side. See above discussion and recommendations. Dictated by: Dictated on workstation # [id number]
[2019-03-09 03:47] VITALS: BP 105/56
[2019-03-09] MEDS: HYDROcodone/APAP 5 MG/325 MG (LORTAB) TAB PO PRN ×2 (04:00→09:23)
[2019-03-09 05:35] LABS: BASOPHILS % (AUTO) 0 % (0-10); EOSINOPHILS # (AUTO) 0.3 10^3/uL (0.0-0.3); EOSINOPHILS % (AUTO) 3 % (0-10); HEMATOCRIT 34 % (40-54); HEMOGLOBIN 10.3 G/DL (13.3-17.7); LYMPHOCYTES # (AUTO) 0.5 X 10^3 (1.0-4.0); LYMPHOCYTES % (AUTO) 5 % (12-44); MEAN CORPUSCULAR HEMOGLOBIN 25 PG (25-34); MEAN CORPUSCULAR HGB CONC 30 G/DL (32-36); MEAN CORPUSCULAR VOLUME 83 FL (80-99); MEAN PLATELET VOLUME 9.2 FL (7.4-10.4); MONOCYTES # (AUTO) 0.7 X 10^3 (0.0-1.0); MONOCYTES % (AUTO) 7 % (0-12); NEUTROPHILS # (AUTO) 7.8 X 10^3 (1.8-7.8); NEUTROPHILS % (AUTO) 85 % (42-75); PLATELET COUNT 264 10^3/uL (130-400); RED CELL DISTRIBUTION WIDTH 17.7 % (10.0-14.5); WHITE BLOOD COUNT 9.2 10^3/uL (4.3-11.0)
[2019-03-09 05:49] LABS: ALBUMIN 3.3 GM/DL (3.2-4.5); BILIRUBIN,TOTAL 0.3 MG/DL (0.1-1.0); CALCIUM 8.7 MG/DL (8.5-10.1); CREATININE SERUM 1.53 MG/DL (0.60-1.30); POTASSIUM 4.3 MMOL/L (3.6-5.0)
[2019-03-09] MEDS: SUCRALFATE 1 GM (CARAFATE) TAB PO SCH ×2 (06:04→11:27)
[2019-03-09] MEDS: PANTOPRAZOLE 40 MG (PROTONIX) TAB PO SCH (06:04)
[2019-03-09] MEDS: inSUlin ASPART (NovoLOG) 1 UNIT/0.01 ML (CHARGE PER UNIT) SC SCH ×2 (06:05→11:27)
[2019-03-09] MEDS: UMECLIDINIUM BROMIDE (INCRUSE ELLIPTA) 7'S IH SCH (06:33)
[2019-03-09] MEDS: RT-ADVAIR HFA 115/21 MCG PER PUFF IH SCH (06:33)
[2019-03-09 08:00] VITALS: BP 121/74
[2019-03-09] MEDS ORDERED: PAROXETINE ER 12.5 MG TABLET PO SCH (09:00)
[2019-03-09] MEDS: SENNA W/DOCUSATE (SENOKOT S) TABLET PO SCH (09:23)
[2019-03-09] MEDS: lisINopril 10 MG (PRINIVIL) TABLET PO SCH (09:23)
[2019-03-09] MEDS: ATORVASTATIN 80 MG (LIPITOR) TABLET PO SCH (09:23)
[2019-03-09] MEDS: KCL 10 MEQ TAB (MICRO K) PO SCH (09:23)
[2019-03-09] MEDS: PRASUGREL 10 MG (EFFIENT) TABLET PO SCH (09:23)
[2019-03-09] MEDS: FUROSEMIDE 20 MG (LASIX) TAB PO SCH (09:24)
[2019-03-09] MEDS: ASPIRIN E.C. 81 MG (ECOTRIN) TAB PO SCH (09:24)
[2019-03-09] MEDS: FINASTERIDE (PROSCAR) 5 MG TAB PO SCH (09:24)
--- NOTE | 2019-03-09 10:25 | NUR ---
CM/SS. Patient will return to his [facility] apartment upon discharge. HHC: History with [facility] and these services will be reinstated with same agency at his request. Referral completed. SUMMARY: Patient's son Rodrigo is primary caregiver in the family, he is leaving on a vacation for two weeks tomorrow. He did meet with [facility] staff yesterday, there are financial components to be explored and adjusted before he can make that move. Patient remains somewhat reluctant to "give up his freedom" but does seem more open than before. No other needs at this time. He asked about getting his Medicaid hours increased, this requires assessment of a change in condition and/or need for support which would be through his child welfare caseworker. He understands he can request a new evaluation. Son Rodrigo will transport, patient will call him when his discharge has been finalized.
[2019-03-09] MEDS ORDERED: TRAM50TA2 PO (10:32)
[2019-03-09] MEDS ORDERED: INSU100I29 SQ (10:32)
--- NOTE | 2019-03-09 10:34 | Discharge Summary ---
Diagnosis/Chief Complaint Date of Admission Mar 07, 2019 at 14:05 Date of Discharge Discharge Date: Mar 09, 2019 Admission Diagnosis Assessment: Found down at home after recent discharge from [facility] unable to be maintained at home in need of permanent usp placement Severe hypoglycemia due to long-acting insulin Congestive heart failure Acute renal failure BPH recent urinary retention episode CAD Pacemaker Poor social situation Plan: Social work for placement back at [facility] permanently Hold insulin Initiate D5 IV fluids Discharge Diagnosis (1) Unresponsive state Status: Resolved (2) Hypoglycemia Status: Resolved (3) Diabetes mellitus, type 2 Status: Chronic (4) BPH (benign prostatic hyperplasia) Status: Chronic (5) Urinary retention due to benign prostatic hyperplasia Status: Chronic (6) PTSD (post-traumatic stress disorder) Status: Chronic (7) COPD (chronic obstructive pulmonary disease) Status: Chronic (8) GERD (gastroesophageal reflux disease) Status: Chronic (9) Right foot drop Status: Chronic (10) Leg weakness, bilateral Status: Chronic (11) Poor appetite Status: Chronic (12) Debility Status: Chronic (13) Coronary artery disease Status: Chronic (14) Acute and chronic respiratory failure with hypoxia Status: Chronic Discharge Summary Discharge Physical Exam Allergies: Coded Allergies: No Known Drug Allergies (Verified , 07/08/18) Vitals & I&Os Vital Signs Date Time Temp Pulse Resp B/P (MAP) Pulse Ox O2 Delivery O2 Flow Rate FiO2 03/09/19 16:19 03/09/19 08:00 Nasal Cannula 3.00 03/09/19 08:00 97.9 95 20 98 03/07/19 20:30 3 General Appearance: No Apparent Distress, WD/WN, Chronically ill Respiratory: Chest Non Tender, Lungs Clear, Normal Breath Sounds, No Accessory Muscle Use, No Respiratory Distress Cardiovascular: Regular Rate, Rhythm, No Edema, No Gallop, No JVD, No Murmur, Normal Peripheral Pulses Neurologic/Psychiatric: Alert, Oriented x3, No Motor/Sensory Deficits, Normal Mood/Affect Hospital Course Was the Problem List Reviewed?: Yes Hospital course: Pt had a very uneventful hospital course after hypoglycemia was resolved with D5 drip. He resolved the altered mental status and unresponsive episode. Recommended usp of which he declined and his son did look into [facility] assisted Living but he insisted on going home to [facility] with home health with PT and OT and nursing. I did decrease the insulin amount he was talking form 50 units down to 20 units and he will have close follow up with Thaddeus Guerra on 03/14/19 at 3:40 pm. I did review all of his home medication, restarted, and gave him a prescription for Ultram for pain in his feet and he already has a walker and oxygen at home. Prognosis guarded considering severe debility and comorbidities. Labs (last 24 hrs) Laboratory Tests 03/09/19 04:49: White Blood Count 9.2, Red Blood Count 4.12L, Hemoglobin 10.3L, Hematocrit 34L, Mean Corpuscular Volume 83, Mean Corpuscular Hemoglobin 25, Mean Corpuscular Hemoglobin Concent 30L, Red Cell Distribution Width 17.7H, Platelet Count 264, Mean Platelet Volume 9.2, Neutrophils (%) (Auto) 85H, Lymphocytes (%) (Auto) 5L, Monocytes (%) (Auto) 7, Eosinophils (%) (Auto) 3, Basophils (%) (Auto) 0, Neutrophils # (Auto) 7.8, Lymphocytes # (Auto) 0.5L, Monocytes # (Auto) 0.7, Eosinophils # (Auto) 0.3, Basophils # (Auto) 0.0, Sodium Level 138, Potassium Level 4.3, Chloride Level 104, Carbon Dioxide Level 24, Anion Gap 10, Blood Urea Nitrogen 20H, Creatinine 1.53H, Estimat Glomerular Filtration Rate 45, BUN/Creatinine Ratio 13, Glucose Level 184H, Calcium Level 8.7, Corrected Calcium 9.3, Total Bilirubin 0.3, Aspartate Amino Transf (AST/SGOT) 28, Alanine Aminotransferase (ALT/SGPT) 22, Alkaline Phosphatase 117, Total Protein 6.0L, Albumin 3.3 03/09/19 05:32: Glucometer 199H 03/09/19 11:16: Glucometer 206H Microbiology 03/07/19 Blood Culture - Preliminary, Resulted No growth 03/07/19 Urine Culture - Final, Complete NO GROWTH Patient resulted labs reviewed. Pending Labs Discussion & Recommendations Discharge Planning: <30 minutes discharge planning Discharge Home Medications: Active Scripts Active Levemir Flextouch (Insulin Detemir) 100 Unit/1 Ml Insuln.pen 20 Units SQ HS 7 Days Tramadol HCl 50 Mg Tablet 50 Mg PO TID PRN LAST FILLED 04-02-2019 Reported Melatonin 10 Mg Capsule 10 Mg PO HS Flomax (Tamsulosin HCl) 0.4 Mg Cap 0.4 Mg PO 1800 Mhfcrbup-Btda-Mouwgu Oil Sftgl (Fish Oil/Borage/Flax/Om3,6,9#1) 400 Mg Capsule 1 Cap PO TID Lisinopril 10 Mg Tablet 10 Mg PO DAILY Aspirin EC (Aspirin) 81 Mg Tablet.dr 81 Mg PO DAILY Sucralfate 1 Gm Tablet 1 Gm PO ACHS Paroxetine ER (Paroxetine HCl) 12.5 Mg Tab.er.24h 12.5 Mg PO DAILY Paroxetine HCl 37.5 Mg Tab.er.24h 37.5 Mg PO HS Furosemide 20 Mg Tablet 20 Mg PO DAILY Potassium Chloride 10 Meq Tablet.er 10 Meq PO DAILY Prazosin HCl 5 Mg Capsule 5 Mg PO HS Tylenol Extra Strength (Acetaminophen) 500 Mg Tablet 500-1,000 Mg PO Q6H PRN Caffeine 200 Mg Tablet 200-400 Mg PO BID PRN Benadryl Allergy (Diphenhydramine HCl) 25 Mg Tablet 50 Mg PO HS PRN Bisacodyl 5 Mg Tablet.dr 10 Mg PO DAILY PRN Symbicort 160-4.5 Mcg Inhaler (Budesonide/Formoterol Fumarate) 10.2 Gm Hfa.aer.ad 2 Puff IH BID Metoprolol Succinate 25 Mg Tab.er.24h 25 Mg PO BID Atorvastatin Calcium 80 Mg Tablet 80 Mg PO DAILY Proventil Hfa (Albuterol Sulfate) 6.7 Gm Hfa.aer.ad 2 Puff INH Q6H PRN Hydroxyzine HCl 25 Mg Tablet 25 Mg PO TID PRN Finasteride 5 Mg Tablet 5 Mg PO DAILY Pantoprazole Sodium 40 Mg Tablet.dr 40 Mg PO BID Prasugrel HCl 10 Mg Tablet 10 Mg PO DAILY Mirtazapine 30 Mg Tablet 30 Mg PO HS Incruse Ellipta (Umeclidinium [place]) 62.5 Mcg Blst.w.dev 1 Puff INH DAILY Instructions to patient/family Please see electronic discharge instructions given to patient. Clinical Quality Measures DVT/VTE Risk/Contraindication: Risk Factor Score Per Nursin RFS Level Per Nursing on Admit: 2=Moderate Problem Qualifiers (1) Diabetes mellitus, type 2: Diabetes mellitus terminal supervisor insulin use: with terminal supervisor use Diabetes mellitus complication status: with circulatory complication Diabetes mellitus complication detail: with other circulatory complications Qualified Codes: E11.59 - Type 2 diabetes mellitus with other circulatory complications; Z79.4 - buttermaker helper (current) use of insulin (2) BPH (benign prostatic hyperplasia): Lower urinary tract symptom presence: unspecified whether lower urinary tract symptoms present Qualified Codes: N40.0 - Benign prostatic hyperplasia without lower urinary tract symptoms (3) COPD (chronic obstructive pulmonary disease): COPD type: unspecified COPD Qualified Codes: J44.9 - Chronic obstructive pulmonary disease, unspecified (4) GERD (gastroesophageal reflux disease): Esophagitis presence: without esophagitis Qualified Codes: K21.9 - Gastro- esophageal reflux disease without esophagitis (5) Coronary artery disease: Coronary Disease-Associated Artery/Lesion type: [place] artery [place] vs. transplanted heart: [place] heart Associated angina: without angina Qualified Codes: I25.10 - Atherosclerotic heart disease of [place] coronary artery without angina pectoris FRANCA LAO DO Mar 09, 2019 10:34
--- NOTE | 2019-03-09 10:34 | D/C HH Face to Face Order ---
D/C Face to Face Orders Instructions for Patient Via [facility], Patient Instructions/FollowUp: [facility]03/14/19 at 3:40pm Thaddeus Guerra Physician to follow Patient: [facility] Discharge Diet for Home: ADA Diet Patient Problems: Hypoglycemia Falls O2 dependent Patient Data-Allergies,Ht & Wt Patient Allergies: Coded Allergies: No Known Drug Allergies (Verified , 07/08/18) Height (Feet): 5 Height (Inches): 8.00 Weight (Pounds): 192 Weight (Ounces): 0.0 Home Health Need/Face to Face Date of Face to Face: Mar 09, 2019 Clinical Findings: Generalized weakness and fatigue, Muscle weakness, Shortness of breath, Unsteady gait I have seen Pt [id number]: Yes Discharged To: Home Diagnosis/Conditions: Hypoglycemia Falls O2 dependent Patient is Homebound due to: Maikol fall risk due to instabilty, Muscle weakness, Shortness of breath/distress Homebound Status Due to the above stated illness, injury or surgical procedure (medical condition or diagnosis) and associated clinical findings, the patient is homebound because of his/her inability to leave home except with aid of a supportive device and/or person AND leaving the home requires a considerable and taxing effort or is medically contraindicated. Pt req the following assistanc: Walker Home Health Nursing Orders Home Health Services Order: Nursing Services, Aviation Safety Officer-Evaluate & Treat, Physical Therapy-Evaluate & Treat Home Health Infusion Therapy Line Start Date: Mar 07, 2019 Certify Stmt I certify that this patient is under my care and that I, a nurse practitioner or a physician; a hearing aid assistant working with me, had a face to face encounter that - meets the physician face to face encounter requirements with this patient as dated. FRANCA LAO DO Mar 09, 2019 10:34
--- NOTE | 2019-03-09 18:42 | Cardiology Progress Note ---
Cardiology SOAP Progress Note Subjective: significantly improved. Objective: I&O/Vital Signs 03/10/19 00:00 Intake Total 1560 ml Balance 1560 ml Weight (Pounds): 192 Weight (Ounces): 0.0 Weight (Calculated Kilograms): 87.906923 Constitutional: appears stated age, AAO x 3; No apparent distress; well- developed, well-nourished Respiratory: No accessory muscle use, No respiratory distress, No chest tender, No chest expansion is symmetric; chest is bilaterally symmetric; No lungs clear to percussion; lungs clear to auscultation; No crackles, No rhonchi, No rales, No stridor, No wheezing, No pleural rub, No other Cardiovascular: regular rate-rhythm; No irregularly irregular, No extra beats, No parasternal heave is noted, No JVD, No edema, No bradycardia, No tachycardia, No point of maximal impulse, No cardiac thrills are palpable; S1 and S2; No gallop/S3, No gallop/S4, No diastolic murmur, No systolic murmur, No friction rub, No click, No other Gastrointestional: No tender, No soft, No round, No distended, No pulsatile mass, No organomegaly, No guarding, No rebound, No tenderness, No hernia, No mass, No audible bowel sounds, No abnormal bowel sounds, No abdominal bruits, No spleenomegaly, No other Extremities: No normal range of motion, No non-tender, No normal inspection, No pedal edema, No calf tenderness, No normal capillary refill, No pelvis stable, No calf tenderness, No inflammation, No pedal edema, No slow capillary refill, No swelling, No other, No abrasion, No clubbing, No cyanosis, No ecchymosis, No laceration, No no lower extremity edema bilateral, No significant edema, No tenderness, No wound Neurologic/Psychiatric: no motor/sensory deficits, alert, normal mood/affect, oriented x 3, power is 5/5 both on sides Skin: No rash, No ulcerations Results/Procedures: Labs Microbiology 03/07/19 Blood Culture - Preliminary, Resulted No growth 03/07/19 Urine Culture - Final, Complete NO GROWTH A/P: Assessment/Dx: 1. Hypoglycemia 2. chronic systolic congestive heart failure, 3. Urinary retention, 4. Ischemic cardiomyopathy, 5. CAD, history of PCI to LAD, 6. PAD with previous history of lower extremity intervention, 7. History of GI bleeding, 8. Hypertension, 9. Hyperlipidemia, 10. Chronic kidney disease. Plan: 1. Acute hypoglycemia: Defer to Dr. Huff. 2. chronic systolic congestive heart failure, elevated BNP. Echocardiogram do ne in November 2018 showed an EF of 40-45 percent. Agree with Lasix. 3. Urinary retention, Dr. Byrne has been consulted. 4. Ischemic cardiomyopathy, continue beta [place], ROSEANNA inhibitor. 5. CAD, history of PCI to LAD, continue dual antiplatelet therapy. Continue beta [place], ROSEANNA inhibitor and statin therapy. 6. PAD with previous history of lower extremity intervention, already on dual antiplatelet therapy. Will request lower extremity bilateral arterial Dopplers. 7. History of GI bleeding, no evidence for active bleeding. 8. Hypertension, beta [place], ROSEANNA inhibitor 9. Hyperlipidemia, statin therapy 10. Chronic kidney disease. Complicated patient with numerous cardiac and medical pathologies. . Thank you for your consultation. Please call me if you have any questions. Kusum Chandra MD, FACP, FACC, FSCAI, FHRS, CCDS Interventional Cardiology Cardiac Electrophysiology Vascular Medicine and Endovascular Interventions Focused Exam Lactate Level Jose CHANDRA MD Mar 09, 2019 18:42
--- NOTE | 2019-03-10 11:34 | NUR ---
CM/MARTÍN. [facility] agency was changed from [facility] to [facility]. [facility] agency could not provide for patient. Update patient by phone, he understands [facility] will visit him starting tomorrow. He indicates he is doing fine today.
== END 2019-03-09 10:32 | disposition home or self-care (01) ==
LOC: EDUNIT# 12:03 → ER 12:04 → UNDOADMOB 14:05 → 4TH 14:05 → UNDODISOB 03-09 15:22
PROVIDERS: ADMIT Internal Medicine; ATTEND Internal Medicine
DX: E11.649 Type 2 diabetes mellitus with hypoglycemia without coma (principal); T38.3X5A Adverse effect of insulin and oral hypoglycemic [antidiabetic] drugs, initial encounter; E11.22 Type 2 diabetes mellitus with diabetic chronic kidney disease; E11.51 Type 2 diabetes mellitus with diabetic peripheral angiopathy without gangrene; I13.0 Hypertensive heart and chronic kidney disease with heart failure and stage 1 through stage 4 chronic kidney disease, or unspecified chronic kidney disease; I48.91 Unspecified atrial fibrillation; N18.9 Chronic kidney disease, unspecified; J44.9 Chronic obstructive pulmonary disease, unspecified; I50.22 Chronic systolic (congestive) heart failure; E78.5 Hyperlipidemia, unspecified; I25.10 Atherosclerotic heart disease of native coronary artery without angina pectoris; I25.5 Ischemic cardiomyopathy; N40.1 Benign prostatic hyperplasia with lower urinary tract symptoms; R33.8 Other retention of urine; N17.9 Acute kidney failure, unspecified; F43.12 Post-traumatic stress disorder, chronic; K21.9 Gastro-esophageal reflux disease without esophagitis; M21.371 Foot drop, right foot; J96.21 Acute and chronic respiratory failure with hypoxia; E11.59 Type 2 diabetes mellitus with other circulatory complications; Z79.4 Long term (current) use of insulin; Z87.19 Personal history of other diseases of the digestive system; Z95.0 Presence of cardiac pacemaker; Z87.891 Personal history of nicotine dependence; Z95.5 Presence of coronary angioplasty implant and graft
CPT/HCPCS: 36415; 70450; 71045; 80053; 81000; 82962; 83605; 85007; 85025; 85027; 85610; 85730; 87040; 87088; 93925; 93970; 94640; 94760; G0378

== ENCOUNTER → 2019-04-06 | Outpatient (CLI) | payer MEDICARE, MEDICAID ==
[~2019-04-06] MED LIST changes: +HOLD METFORMIN - RECEIVED CONTRAST 20 ML VIAL IV SCH; +IOHEXOL 350 MG/ML 100 ML (OMNIPAQUE 350) VIAL IV ONE; +MELA10CA2 PO; +NS 100 ML (IVPB) BAG IV ONE
[2019-04-06 11:43] LABS: CREATININE SERUM 1.34 MG/DL (0.60-1.30)
[2019-04-06 11:49] LABS: ABG BASE EXCESS 3.9 MMOL/L (-2.5-2.5); ABG OXYGEN SATURATION 96 % (94-100); ABG PCO2 37 MMHG (35-45); ABG PH 7.48 (7.37-7.43); ABG PO2 66 MMHG (79-93); ABG TCO2 28.7 MMOL/L (21.0-31.0)
[2019-04-06 11:50] LABS: ALLENS TEST YES-POS; INSPIRED O2 ROOM AIR; PATIENT TEMP 96.6; VENTILATOR NO
--- NOTE | 2019-04-06 13:16 | Diagnostic Imaging Report ---
PROCEDURE: CT chest with contrast only. TECHNIQUE: Multiple contiguous axial images were obtained through the chest after administration of intravenous contrast. Auto Exposure Controls were utilized during the CT exam to meet ALARA standards for radiation dose reduction. INDICATION: COPD and hemoptysis. COMPARISON: Correlation is made with prior CT chest from 02/22/2019. FINDINGS: No axillary lymphadenopathy is detected. No definite mediastinal or hilar lymphadenopathy is identified. There is no pericardial fluid. There has been significant reduction in bilateral pleural effusion since prior CT. Pleural fluid on the left is trace and pleural fluid on the right is small. The central airways appear to be patent. Centrilobular emphysematous changes are again noted. Area of atelectasis in the right middle lobe on prior study has resolved. There is patchy airspace infiltrate in the left lower lobe, suggestive of pneumonia. No parenchymal mass is seen. The upper abdomen is unremarkable. Bony structures are nonacute. IMPRESSION: 1. Significant reduction in bilateral pleural effusions since prior examination from 02/22/2019. In addition, the right middle lobe atelectasis has resolved. There is now patchy airspace pneumonia in the left lower lobe. No other significant abnormality is seen. Dictated by: Dictated on workstation # [id number]
== END ==
LOC: RAD 11:10
PROVIDERS: ATTEND Nurse Practitioner Family
DX: J44.9 Chronic obstructive pulmonary disease, unspecified (principal); J90 Pleural effusion, not elsewhere classified; J18.1 Lobar pneumonia, unspecified organism; J30.9 Allergic rhinitis, unspecified; Z87.891 Personal history of nicotine dependence
CPT/HCPCS: 36415; 36600; 71260; 82565; 82805; 84520

== ENCOUNTER → 2019-04-28 | Outpatient (CLI) | payer MEDICARE, MEDICAID ==
[~2019-04-28] MED LIST changes: -HOLD METFORMIN - RECEIVED CONTRAST 20 ML VIAL IV SCH; -IOHEXOL 350 MG/ML 100 ML (OMNIPAQUE 350) VIAL IV ONE; -NS 100 ML (IVPB) BAG IV ONE; +RT-ALBUTEROL SULF 2.5 MG/3 ML PRE-MIX VIAL INH ONE
== END ==
LOC: RT 12:07
PROVIDERS: ATTEND Nurse Practitioner Family
DX: J44.9 Chronic obstructive pulmonary disease, unspecified (principal); J30.9 Allergic rhinitis, unspecified; Z87.891 Personal history of nicotine dependence
CPT/HCPCS: 94060; 94640; 94726; 94729

== ENCOUNTER → 2019-05-04 | Outpatient (CLI) | payer MEDICARE, MEDICAID ==
[~2019-05-04] MED LIST changes: -RT-ALBUTEROL SULF 2.5 MG/3 ML PRE-MIX VIAL INH ONE
--- NOTE | 2019-05-04 11:03 | Diagnostic Imaging Report ---
PROCEDURE: US Renal Bilateral. TECHNIQUE: Multiple real-time grayscale images were obtained over the kidneys in various projections bilaterally. INDICATION: Chronic kidney disease, stage III. FINDINGS: Right kidney measures 10.6 x 4.7 x 4.3 cm and the left kidney measures 10.4 x 5.5 x 4.8 cm. The cortical thickness and echogenicity is normal. No calculi are identified. There is no evidence of hydronephrosis. Partially filled urinary bladder is unremarkable. Ureteral jets were not visualized. IMPRESSION: Unremarkable renal ultrasound. There is no evidence of hydronephrosis. Dictated by: Dictated on workstation # [id number]
== END ==
LOC: RAD 09:05
PROVIDERS: ATTEND Internal Medicine Nephrology
DX: N18.3 Chronic kidney disease, stage 3 (moderate) (principal)
CPT/HCPCS: 76770

== ENCOUNTER → 2019-05-27 | Outpatient (CLI) | payer MEDICARE, MEDICAID ==
--- NOTE | 2019-05-27 11:59 | Diagnostic Imaging Report ---
PROCEDURE: CT chest without contrast. TECHNIQUE: Multiple contiguous axial images were obtained through the chest without the use of intravenous contrast. Auto Exposure Controls were utilized during the CT exam to meet ALARA standards for radiation dose reduction. INDICATION: Dyspnea COMPARISON: 04/06/2019, 02/22/2019 FINDINGS: No significant adenopathy within the chest, though evaluation is slightly limited secondary to lack of intravenous contrast. Scattered vascular calcifications within the thoracic aorta and its branch vessels, including extensive calcifications within the coronary arteries. No aneurysmal dilatation of the thoracic aorta. No significant pericardial effusion. Tiny right dependently layering pleural effusion, improved since the prior examination. No significant left pleural effusion, having resolved since the prior examination. No pneumothorax. Moderate background emphysematous changes, greatest within the upper lungs. Reticular and interstitial opacities within the left lower lobe are again identified, though significantly improved since the prior examination. Focal 0.8 cm irregular nodular density within the medial left lower lobe is present, which was within the dense opacities noted on prior imaging. New 1 cm pleural-based nodular density is identified associated with the right middle lobe, series 3, image 90. No additional new focal pulmonary opacity. The visualized upper abdomen is unremarkable. No acute osseous abnormality with scattered osseous degenerative changes. IMPRESSION: 1. Previously noted left lower lobe opacities have significantly improved, consistent with improving infection or inflammation. However, there is a persistent irregular 0.8 cm nodular density. This is favored to relate to the improving infiltrative process, though neoplasm not completely excluded. Therefore, a follow-up CT of the chest is recommended in 3 months to ensure improvement. 2. New focal opacity within the right middle lobe, felt to relate to focal atelectasis and/or infiltrate. This should be followed up on the above mentioned recommended CT of the chest in 3 months. 3. Tiny right pleural effusion, significantly improved since the prior examination. 4. Moderate background emphysematous changes. 5. Cardiomegaly. 6. Additional stable findings as above. Dictated by: Dictated on workstation # [id number]
== END ==
LOC: RAD 10:15
PROVIDERS: ATTEND Nurse Practitioner Family
DX: J30.9 Allergic rhinitis, unspecified (principal); J98.4 Other disorders of lung; J43.9 Emphysema, unspecified; I51.7 Cardiomegaly; I70.0 Atherosclerosis of aorta; R04.2 Hemoptysis; Z87.891 Personal history of nicotine dependence
CPT/HCPCS: 71250

== ENCOUNTER → 2019-09-07 | Outpatient (CLI) | payer MEDICAID, MEDICARE ==
[~2019-09-07] MED LIST changes: +METF500T19 PO; -METF500T8 PO; -METO-387 PO; +MTP25TSR PO; +OMEP40CA27 PO; -OMEP40CA36 PO; -TAMS0.4C98 PO; +TMSL.4C PO; -TRAM50TA2 PO; +TRM50T PO
--- NOTE | 2019-09-07 14:36 | Diagnostic Imaging Report ---
EXAMINATION: CT Chest without contrast. TECHNIQUE: Multiple contiguous axial images were obtained through the chest without the use of intravenous contrast. All CT scans use one or more of the following dose optimizing techniques: automated exposure control, MA and/or KvP adjustment based on a patient size and exam type, or iterative reconstruction. HISTORY: DYSPNEA,COPD,HX OF SMOKING COMPARISON: 05/27/2019. FINDINGS: The lungs are clear without edema or pneumonia. No pleural effusion or pneumothorax. Previously seen abnormalities in the right middle lobe and left lower lobe have resolved. No suspicious nodules are present. Heart size is normal. No pericardial effusion. Aorta is normal in caliber. There is no axillary or supraclavicular lymphadenopathy. There is no mediastinal lymphadenopathy. There are severe coronary artery calcifications. Limited views of the upper abdomen show intermediate attenuation filling in the gallbladder. There are no suspicious osseus lesions. IMPRESSION: 1. Resolution of previously seen abnormalities in the right middle and left lower lobes without suspicious nodule present. 2. Intermediate attenuation filling in the gallbladder which may represent a combination of stones and sludge. However, ultrasound is recommended to ensure this is not a gallbladder neoplasm. Dictated by: Dictated on workstation # [id number]
== END ==
LOC: RAD 13:08
PROVIDERS: ATTEND Nurse Practitioner Family
DX: J44.9 Chronic obstructive pulmonary disease, unspecified (principal); K82.8 Other specified diseases of gallbladder; Z87.891 Personal history of nicotine dependence
CPT/HCPCS: 71250

== ENCOUNTER 2019-11-07 11:53 | Day surgery (SDC) | payer MEDICARE ==
[~2019-11-07] VITALS: Ht 165 cm; Wt 88.0 kg
[2019-11-07] VITALS (9 sets, daily range): BP systolic 130–184; BP diastolic 67–85
[2019-11-07] MEDS ORDERED: LIDOCAINE 1% INJ 20 ML 20 ML VIAL ONE (11:54)
[2019-11-07] MEDS ORDERED: NS IV 1000 ML 1,000 ML ONE (11:55)
[2019-11-07] MEDS ORDERED: HEParin (CATH LAB) 2,000 ML IV ONE (11:55)
[2019-11-07] MEDS ORDERED: NS IV 1000 ML 1,000 ML IV SCH (12:15)
[2019-11-07 12:34] LABS: HEMOGLOBIN 13.8 G/DL (13.3-17.7); MEAN PLATELET VOLUME 9.6 FL (7.4-10.4); RED CELL DISTRIBUTION WIDTH 14.5 % (10.0-14.5); WHITE BLOOD COUNT 9.8 10^3/uL (4.3-11.0)
[2019-11-07 12:46] LABS: INR 0.9 (0.8-1.4); PROTHROMBIN TIME PATIENT 12.5 SEC (12.2-14.7)
[2019-11-07 12:55] LABS: ALBUMIN 4.2 GM/DL (3.2-4.5); BILIRUBIN,TOTAL 0.6 MG/DL (0.1-1.0); CALCIUM 9.4 MG/DL (8.5-10.1); CREATININE SERUM 1.89 MG/DL (0.60-1.30); POTASSIUM 4.7 MMOL/L (3.6-5.0); TOTAL PROTEIN 7.3 GM/DL (6.4-8.2)
[2019-11-07] MEDS ORDERED: GUAI400T85 PO (12:57)
[2019-11-07] MEDS ORDERED: IRON PO (12:57)
[2019-11-07] MEDS ORDERED: OXYM15MI4 NS (12:57)
[2019-11-07] MEDS ORDERED: GABA-488 PO ×2 (12:57)
[2019-11-07] MEDS ORDERED: ALPH1TAB8 PO (12:57)
[2019-11-07] MEDS ORDERED: MULT1TAB69 PO (12:57)
[2019-11-07] MEDS ORDERED: INSU100V5 SQ (12:57)
[2019-11-07] MEDS ORDERED: TRM50T PO (12:57)
[2019-11-07] MEDS ORDERED: MIDAZOLAM 5 MG/5 ML (VERSED) VIAL ONE (13:00)
[2019-11-07] MEDS ORDERED: fentaNYL INJECTION 100 MCG/2 ML AMP ONE (13:01)
[2019-11-07] MEDS ORDERED: HEParin 1000 UNIT/ML (10ML VIAL) FOR BOLUS ONE (13:01)
--- OUTSIDE RECORDS SUMMARY | 2019-11-07 14:18 | XMS REPORT ---
Author Author Salomon SATHL Organization [facility] Address [address] [place] [address] Care Team Providers Care Orthotic And Prosthetic Technician Name Role Phone RONDA STAHL Unavailable PROBLEMS Type Condition ICD9-CM Code TPF26-LB Code Onset Dates Condition S tatus SNOMED Code Problem Diabetes type 2, controlled E11.9 Ac tive 84213343 Problem Diabetes E11.9 Active 53205950 Problem Hypertriglyceridemia E78.1 Active 908284036 Problem Other chronic pain G89.29 Active 8 1397721 Problem COPD exacerbation J44.1 Active 19 5652255 Problem PTSD (post-traumatic stress disorder) F43.10 Active 52687203 Problem PVD (peripheral vascular disease) I73.9 Active 405652758 Problem Uncontrolled type 2 diabetes mellitus with hyperglycemia E11.65 Active 054744241 Problem Neuropathy of left foot G57.92 Active 017738245658449 Problem Gastroesophageal reflux disease with esophagitis K 21.0 Active 595059194 Problem Recurrent major depressive disorder, in partial remission F33.41 Active 39704367 Problem Panlobular emphysema J43.1 Active 1367048 Problem Afib I48.91 Active 96845292 Problem Foot drop, right M21.371 Active 308 955092898824 Problem Hypertensive heart disease with heart failure I11. 0 Active 83208587 Problem Hypoglycemia E16.2 Active 2161155 03 ALLERGIES No Information ENCOUNTERS Encounter Location Date Diagnosis [facility] [id number] [place] [address] Sep, [facility] [address] [address] Jul, Uncontrolled type 2 diabetes mellitus wi th hyperglycemia E11.65 [facility] [address] [address] Jul, Other chronic pain G89.29 [facility] [address] [address] Jun, PTSD (post-traumatic stress disorder) F4 3.10 [address] [address] Jun, PTSD (post-traumatic stress disorder) F4 3.10 [place] [address] [address] Jun, [place] [address] [address] Jun, Uncontrolled type 2 diabetes mellitus wi th hyperglycemia E11.65 [place] [address] [address] Jun, [place] [address] [address] Jun, PVD (peripheral vascular disease) I73.[address] [address] May, [place] [address] [address] May, [address] [address] May, Uncontrolled type 2 diabetes mellitus wi th hyperglycemia E11.65 ; Neuropathy of left foot G57.92 ; Encounter for immunization Z23 and Recurrent major depressive disorder, in partial remission F33.41 [place] [address] [address] May, [place] [address] [address] May, [address] [address] May, PTSD (post-traumatic stress disorder) F4 3.10 and Hypertriglyceridemia E78.1 [place] [address] [address] May, [address] [id number] [id number] May, [facility] [id number] [place] [address] May, [facility] [address] [address] May, [facility] [id number] [place] [address] Apr, [facility] [address] [address] Apr, [facility] [address] [address] Apr, [facility] [address] [address] Mar, Other chronic pain G89.29 [place] [address] [address] Mar, PTSD (post-traumatic stress disorder) F4 3.10 [place] [id number] [place] [address] 15 Mar, 2019 Encounter for Medicare annual wellness e xam Z00.00 [place] [address] [address] Mar, Encounter for Medicare annual wellness e xam Z00.00 ; Uncontrolled type 2 diabetes mellitus with hyperglycemia E11.65 ; Hypertensive heart disease with heart failure I11.0 ; PVD (peripheral vascular disease) I73.9 ; Panlobular emphysema J43.1 ; Gastroesophageal reflux disease with esophagitis K21.0 ; Afib I48.91 and Hypertriglyceridemia E78.1 [place] [id number] [place] [address] Mar, PTSD (post-traumatic stress disorder) F4 3.10 [facility] [id number] [place] [address] Feb, [facility] [address] [address] Feb, PTSD (post-traumatic stress disorder) F4 3.10 [facility] [address] [address] Feb, Hypoglycemia E16.2 [facility] [address] [address] Feb, [facility] [address] [address] Feb, Hypoglycemia E16.2 [facility] [address] [address] Feb, [facility] [address] [address] Feb, [facility] [address] [address] Feb, [facility] [address] [address] Feb, [facility] [address] [address] Feb, Hypertensive heart disease with heart fa ilure I11.0 [facility] [address] [address] Jan, SOB (shortness of breath) on exertion R0 6.02 [facility] [address] [address] December, SOB (shortness of breath) on exertion R0 6.02 [facility] [address] [address] December, [facility] [address] [address] December, [facility] [address] [address] December, [facility] [address] [address] December, [facility] [address] [address] December, PTSD (post-traumatic stress disorder) F4 3.10 [address] [place] [address] [address] Nov, Diabetes type 2, controlled E11.9 ; Hype rtriglyceridemia E78.1 ; COPD exacerbation J44.1 ; PTSD (post-traumatic stress disorder) F43.10 ; Other chronic pain G89.29 ; Gastroesophageal reflux disease with esophagitis K21.0 ; PVD (peripheral vascular disease) I73.9 and Hypertensive heart disease with heart failure I11.0 [address] [place] [address] [address] Oct, PTSD (post-traumatic stress disorder) F4 3.10 [place] [address] [address] Sep, Diabetes type 2, controlled E11.9 and PT SD (post-traumatic stress disorder) F43.10 [place] [address] [address] Sep, [place] [address] [address] Sep, PTSD (post-traumatic stress disorder) F4 3.10 [place] [address] [address] Sep, [place] [address] [address] Aug, COPD exacerbation J44.1 ; Difficulty dorinda athing R06.89 ; History of GI bleed Z87.19 ; PVD (peripheral vascular disease) I73.9 and Uncontrolled type 2 diabetes mellitus with hyperglycemia E11.65 [place] [address] [address] Aug, [address] [address] Aug, PTSD (post-traumatic stress disorder) F4 3.10 and Type 2 diabetes mellitus without complication, without long-term current use of insulin E11.9 [facility] [address] [place] [id number] Aug, History of GI bleed Z87.19 ; COPD exacer bation J44.1 and PVD (peripheral vascular disease) I73.9 [place] [address] [address] Aug, [facility] [address] [place] [id number] Aug, Diabetes E11.9 ; Other chronic pain G89. 29 and Panlobular emphysema J43.1 [place] [address] [address] Jul, [place] [address] [address] Jun, PTSD (post-traumatic stress disorder) F4 3.10 [place] [address] [address] 14 Jun, 2018 [place] [address] [address] 12 Jun, 2018 PTSD (post-traumatic stress disorder) F4 3.10 [place] [address] [address] 12 Jun, 2018 [place] [address] [address] Jun, [place] [address] [address] 08 Jun, 2018 Uncontrolled type 2 diabetes mellitus [facility] complication, without long-term current use of insulin E11.65 [place] [address] [address] 07 Jun, 2018 PTSD (post-traumatic stress disorder) F4 3.10 ; Low back pain M54.5 ; Other chronic pain G89.29 ; Gastroesophageal reflux disease with esophagitis K21.0 and Panlobular emphysema J43.1 [place] [address] [address] Jun, [facility] [address] [address] Jun, Other chest pain R07.89 ; Tachycardia R0 0.0 and Murmur, cardiac R01.1 [facility] [address] [address] May, Other chest pain R07.89 ; Tachycardia R0 0.0 and Murmur, cardiac R01.1 [facility] [address] [address] May, [place] [address] [address] May, Uncontrolled type 2 diabetes mellitus wi th hyperglycemia E11.65 and Oral candidiasis B37.0 [place] [address] [address] May, COPD exacerbation J44.1 [place] [address] [address] May, COPD exacerbation J44.1 [facility] [address] [address] May, COPD exacerbation J44.1 and Type 2 diabetes mellitus without complication, without long-term current use of insulin E11.9 [facility] [address] [place] [address] May, Difficulty breathing R06.89 and Acute bronchitis, unspecified organism J20.9 [place] [address] [address] Apr, Uncontrolled type 2 diabetes mellitus wi thout complication, without long-term current use of insulin E11.65 [place] [address] [address] Feb, [address] [address] [address] Feb, [place] [address] [address] Feb, [facility] [id number] [place] [address] Jan, [facility] [address] [address] Oct, [facility] [address] [address] Jul, Diabetes type 2, controlled E11.9 [facility] [address] [address] Jun, [facility] [address] [address] May, [facility] [address] [address] May, Diabetes type 2, controlled E11.9 and Hy pertriglyceridemia E78.1 [address] [place] [address] [address] May, [facility] [address] [address] Apr, Hypertriglyceridemia 272.1 ; Influenza v accine administered V04.81 and Diabetes 250.00 [place] [address] [address] Mar, DM type 2 (diabetes mellitus, type 2) 25 0.00 ; Essential hypertension, benign 401.1 and Mood disorder 296.90 [facility] [address] [address] Jan, [facility] [address] [address] Nov, [facility] [address] [address] Nov, [facility] [address] [address] Sep, [facility] [address] [address] Sep, [facility] [address] [id number] [place] [address] Sep, [facility] [address] [id number] [place] [address] Sep, [facility] [address] [id number] [place] [address] May, [facility] [address] [id number] [place] [address] May, [facility] [address] [facility] [id number] [place] [address] Apr, [facility] [address] [id number] [place] [address] Apr, [facility] [address] [id number] [place] [address] Mar, [facility] [address] [id number] [place] [address] Mar, [facility] [address] [id number] [place] [address] Mar, [facility] [address] [id number] [place] [address] Mar, [facility] [address] [id number] [place] [address] Jan, [facility] [address] [id number] [place] [address] Jan, [facility] [address] [id number] [place] [address] Jan, [facility] [address] [id number] [place] [address] Jan, [facility] [address] [id number] [place] [address] Jan, [facility] [address] [id number] [place] [address] Jan, [facility] [address] [id number] [place] [address] Oct, [facility] [address] [id number] [place] [address] Oct, [facility] [address] [id number] [place] [address] Sep, [facility] [address] [id number] [place] [address] Sep, [facility] [address] [id number] [place] [address] Jun, [facility] [address] [id number] [place] [address] Jun, [facility] [address] [id number] [place] [address] Mar, [facility] [address] [id number] [place] [address] Feb, [facility] [address] [id number] [place] [address] Feb, [facility] [address] [id number] [place] [address] Nov, [facility] [id number] [place] [address] Aug, [facility] [address] [id number] [place] [address] Aug, [facility] [id number] [place] [address] Jul, [facility] [address] [id number] [place] [address] Jul, [facility] [address] [id number] [place] [address] May, [facility] [address] [id number] [place] [address] May, [facility] [address] [id number] [place] [address] May, [facility] [address] [id number] [place] [address] May, [facility] [id number] [place] [address] Apr, [facility] [id number] [place] [address] Feb, [facility] [id number] [place] [address] Feb, [facility] [id number] [place] [address] Jan, [facility] [id number] [place] [address] Jan, [facility] [id number] [place] [address] Nov, [facility] [id number] [place] [address] Oct, [facility] [id number] [place] [address] Oct, [facility] [id number] [place] [address] Jul, [facility] [id number] [place] [address] May, [facility] [id number] [place] [address] Nov, [facility] [id number] [place] [address] Jun, [facility] [id number] [place] [address] December, [facility] [id number] [place] [address] Jul, IMMUNIZATIONS No Known Immunizations SOCIAL HISTORY Never Assessed REASON FOR VISIT PLAN OF CARE VITAL SIGNS Height 68 in 2014-02-20 Weight 189.56 lbs 2014-02-20 Temperature 97.91 degrees Fahrenheit 2014-02-20 Heart Rate 76 bpm 2014-02-20 Respiratory Rate 18 2014-02-20 Blood pressure systolic 148 mmHg 2014-02-20 Blood pressure diastolic 82 mmHg 2014-02-20 MEDICATIONS Unknown Medications RESULTS No Results PROCEDURES Procedure Date Ordered Result Body Site COMPLETE CBC W/AUTO DIFF WBC February 20, 2014 LIPID PANEL February 20, 2014 COMPREHEN METABOLIC PANEL February 20, 2014 VENIPUNCT, ROUTINE* February 20, 2014 INSTRUCTIONS MEDICATIONS ADMINISTERED No Known Medications MEDICAL (GENERAL) HISTORY Type Description Date Medical History hypertension Medical History diabetes type 2 Medical History PTSD Medical History IBS Medical History Back pain Medical History Type 2 diabetes mellitus wit hout complication, without long-term current use of insulin Medical History Uncontrolled type 2 diabetes mellitus wi th hyperglycemia Medical History Hay Fever Surgical History 2 stints placed 2018 Surgical History multiple stents Surgical History EGD and colonoscopy 07/07/2018 Hospitalization History rectal and vomitting blood 2018 Hospitalization History Hypoglycemia Hospitalization History [facility] February 2019
--- OUTSIDE RECORDS SUMMARY | 2019-11-07 14:18 | XMS REPORT ---
Author Author Salomon STAHL Organization [facility] Address [address] [place] [address] Care Team Providers Care Gateman Name Role Phone RONDA STAHL Unavailable PROBLEMS Type Condition ICD9-CM Code CCP19-VG Code Onset Dates Condition S tatus SNOMED Code Problem Other chronic pain G89.29 Active 8 6566620 Problem COPD exacerbation J44.1 Active 19 1413854 Problem Gastroesophageal reflux disease with esophagitis K 21.0 Active 323074292 Problem Panlobular emphysema J43.1 Active 8024610 Problem PVD (peripheral vascular disease) I73.9 Active 979035574 Problem PTSD (post-traumatic stress disorder) F43.10 Active 21647892 Problem Afib I48.91 Active 29510670 Problem Uncontrolled type 2 diabetes mellitus with hyperglycemia E11.65 Active 490081815 Problem Hypoglycemia E16.2 Active 9375754 03 Problem Recurrent major depressive disorder, in partial remission F33.41 Active 98802607 Problem Neuropathy of left foot G57.92 Active [id number] Problem Peripheral vascular disease, unspecified I73.9 Active 444877238 Problem Hypertensive heart disease with heart failure I11. 0 Active 63641061 Problem Hypertriglyceridemia E78.1 Active 493772833 Problem Type 2 diabetes mellitus with unspecified complications E11.8 Active 46013951 Problem Foot drop, right M21.371 Active 308 631055471345 Problem Diabetes type 2, controlled E11.9 Ac tive 90082056 Problem Diabetes E11.9 Active 61403254 Problem Systolic congestive heart failure, unspecified HF chronici ty I50.20 Active 64433711 Problem Recurrent major depressive disorder, remission s tatus unspecified F33.9 Active 26834299 Problem Chronic obstructive pulmonary disease, unspecified COPD ty pe J44.9 Active 40897839 Problem Chronic kidney disease, stage 3 (moderate) N18.3 Active 029235303 ALLERGIES No Information ENCOUNTERS Encounter Location Date Diagnosis [facility] [address] [address] Feb, [place] [address] [address] Jan, [place] [address] [place] [id number] Oct, Chronic obstructive pulmonary disease, u nspecified COPD type J44.9 ; Systolic congestive heart failure, unspecified HF chronicity I50.20 ; Recurrent major depressive disorder, remission status unspecified F33.9 ; Type 2 diabetes mellitus with unspecified complications E11.8 ; Peripheral vascular disease, unspecified I73.9 and Chronic kidney disease, stage 3 (moderate) N18.3 [place] [address] [address] Sep, [place] [address] [address] Sep, [place] [address] [address] Sep, [place] [address] [address] Sep, PTSD (post-traumatic stress disorder) F4 3.10 [place] [address] [address] Aug, Other chronic pain G89.29 [place] [address] [address] Jul, Uncontrolled type 2 diabetes mellitus wi th hyperglycemia E11.65 [place] [address] [address] Jul, Other chronic pain G89.29 [place] [address] [address] Jun, PTSD (post-traumatic stress disorder) F4 3.10 [place] [address] [address] Jun, PTSD (post-traumatic stress disorder) F4 3.10 [place] [address] [place] [id number] [place] [address] Jun, [facility] [address] [place] [id number] [place] [address] Jun, Uncontrolled type 2 diabetes mellitus wi th hyperglycemia E11.65 [facility] [address] [place] [id number] [place] [address] Jun, [facility] [address] [address] Jun, PVD (peripheral vascular disease) I73.9 [facility] [address] [address] May, [facility] [address] [address] May, [facility] [address] [address] May, Uncontrolled type 2 diabetes mellitus wi th hyperglycemia E11.65 ; Neuropathy of left foot G57.92 ; Encounter for immunization Z23 and Recurrent major depressive disorder, in partial remission F33.41 [facility] [address] [place] [id number] [place] [address] May, [facility] [address] [address] May, [facility] [address] [address] May, PTSD (post-traumatic stress disorder) F4 3.10 and Hypertriglyceridemia E78.1 [facility] [address] [place] [id number] [place] [address] May, [facility] [id number] [place] [id number] May, [facility] [address] [place] [id number] [place] [address] May, [facility] [address] [address] May, [facility] [address] [place] [id number] [place] [address] Apr, [facility] [address] [address] Apr, [facility] [address] [address] Apr, [place] [address] [address] Mar, Other chronic pain G89.29 [place] [address] [address] Mar, PTSD (post-traumatic stress disorder) F4 3.10 [place] [address] [address] 15 Mar, 2019 Encounter for Medicare annual wellness e xam Z00.00 [place] [address] [address] 08 Mar, 2019 Encounter for Medicare annual wellness e xam Z00.00 ; Uncontrolled type 2 diabetes mellitus with hyperglycemia E11.65 ; Hypertensive heart disease with heart failure I11.0 ; PVD (peripheral vascular disease) I73.9 ; Panlobular emphysema J43.1 ; Gastroesophageal reflux disease with esophagitis K21.0 ; Afib I48.91 and Hypertriglyceridemia E78.1 [place] [address] [address] Mar, PTSD (post-traumatic stress disorder) F4 3.10 [place] [address] [place] [id number] [place] [address] Feb, [place] [address] [address] Feb, PTSD (post-traumatic stress disorder) F4 3.10 [place] [address] [address] Feb, Hypoglycemia E16.2 [place] [address] [address] Feb, [place] [address] [address] Feb, Hypoglycemia E16.2 [place] [address] [address] Feb, [place] [address] [address] Feb, [place] [address] [address] Feb, [place] [address] [address] Feb, [place] [address] [address] Feb, Hypertensive heart disease with heart fa ilure I11.0 [place] [address] [address] Jan, SOB (shortness of breath) on exertion R0 6.02 [place] [address] [address] December, SOB (shortness of breath) on exertion R0 6.02 [place] [address] [address] December, [place] [address] [address] December, [place] [address] [address] December, [place] [address] [address] December, [place] [address] [address] December, PTSD (post-traumatic stress disorder) F4 3.10 [place] [address] [address] Nov, Diabetes type 2, controlled E11.9 ; Hype rtriglyceridemia E78.1 ; COPD exacerbation J44.1 ; PTSD (post-traumatic stress disorder) F43.10 ; Other chronic pain G89.29 ; Gastroesophageal reflux disease with esophagitis K21.0 ; PVD (peripheral vascular disease) I73.9 and Hypertensive heart disease with heart failure I11.0 [place] [address] [address] Oct, PTSD (post-traumatic stress disorder) F4 3.10 [place] [address] [address] Sep, Diabetes type 2, controlled E11.9 and PT SD (post-traumatic stress disorder) F43.10 [place] [address] [address] Sep, [place] [address] [address] Sep, PTSD (post-traumatic stress disorder) F4 3.10 [place] [address] [address] Sep, [place] [address] [address] Aug, COPD exacerbation J44.1 ; Difficulty dorinda athing R06.89 ; History of GI bleed Z87.19 ; PVD (peripheral vascular disease) I73.9 and Uncontrolled type 2 diabetes mellitus with hyperglycemia E11.[address] [address] Aug, [address] [address] Aug, PTSD (post-traumatic stress disorder) F4 3.10 and Type 2 diabetes mellitus without complication, without long-term current use of insulin E11.9 [facility] [address] [place] [id number] Aug, History of GI bleed Z87.19 ; COPD exacer bation J44.1 and PVD (peripheral vascular disease) I73.[address] [address] Aug, Via [facility] [address] [place] [id number] Aug, Diabetes E11.9 ; Other chronic pain G89. 29 and Panlobular emphysema J43.1 [place] [address] [address] Jul, [place] [address] [address] Jun, PTSD (post-traumatic stress disorder) F4 3.10 [place] [address] [address] Jun, [place] [address] [address] Jun, PTSD (post-traumatic stress disorder) F4 3.10 [place] [address] [address] 12 Jun, 2018 [place] [address] [address] Jun, [place] [address] [address] 08 Jun, 2018 Uncontrolled type 2 diabetes mellitus wi thout complication, without long-term current use of insulin E11.65 [place] [address] [address] 07 Jun, 2018 PTSD (post-traumatic stress disorder) F4 3.10 ; Low back pain M54.5 ; Other chronic pain G89.29 ; Gastroesophageal reflux disease with esophagitis K21.0 and Panlobular emphysema J43.1 [place] [address] [address] Jun, [address] [address] Jun, Other chest pain R07.89 ; Tachycardia R0 0.0 and Murmur, cardiac R01.1 [place] [address] [address] May, Other chest pain R07.89 ; Tachycardia R0 0.0 and Murmur, cardiac R01.1 [facility] [address] [place] [id number] [place] [address] May, [facility] [address] [address] May, Uncontrolled type 2 diabetes mellitus wi th hyperglycemia E11.65 and Oral candidiasis B37.0 [place] [address] [address] May, COPD exacerbation J44.1 [place] [address] [address] May, COPD exacerbation J44.1 [facility] [address] [place] [id number] [place] [address] May, COPD exacerbation J44.1 and Type 2 diabetes mellitus without complication, without long-term current use of insulin E11.9 [facility] [address] [place] [id number] [place] [address] May, Difficulty breathing R06.89 and Acute bronchitis, unspecified organism J20.9 [place] [address] [address] Apr, Uncontrolled type 2 diabetes mellitus wi out complication, without long-term current use of insulin E11.65 [place] [address] [address] Feb, [place] [address] [address] Feb, [place] [address] [address] Feb, [place] [address] [address] Jan, [place] [address] [address] Oct, [place] [address] [address] Jul, Diabetes type 2, controlled E11.9 [facility] [address] [address] Jun, [facility] [address] [address] May, [facility] [address] [address] May, Diabetes type 2, controlled E11.9 and Hy pertriglyceridemia E78.1 [facility] [address] [address] May, [facility] [address] [address] Apr, Hypertriglyceridemia 272.1 ; Influenza v accine administered V04.81 and Diabetes 250.00 [place] [address] [address] Mar, DM type 2 (diabetes mellitus, type 2) 25 0.00 ; Essential hypertension, benign 401.1 and Mood disorder 296.90 [place] [address] [address] Jan, [place] [address] [address] Nov, [place] [address] [address] Nov, [facility] [address] [address] Sep, [facility] [address] [address] Sep, [facility] [address] [address] Sep, [facility] [address] [address] Sep, [facility] [address] [address] May, [facility] [address] [facility] [facility] [id number] [place] [address] May, [facility] [address] [facility] [address] [facility] [id number] [place] [address] Apr, [facility] [address] [id number] [place] [address] Apr, [facility] [address] [id number] [place] [address] Mar, [facility] [address] [facility] [id number] [place] [address] Mar, [facility] [address] [id number] [place] [address] Mar, [facility] [address] [id number] [place] [address] Mar, [facility] [address] [id number] [place] [address] Jan, [facility] [address] [id number] [place] [address] Jan, [facility] [address] [id number] [place] [address] Jan, [facility] [address] [id number] [place] [address] Jan, [facility] [address] [id number] [place] [address] Jan, [facility] [address] [id number] [place] [address] Jan, [facility] [address] [id number] [place] [address] Oct, [facility] [address] [id number] [place] [address] Oct, [facility] [address] [id number] [place] [address] Sep, [facility] [address] [id number] [place] [address] Sep, [facility] [address] [id number] [place] [address] Jun, [facility] [address] [id number] [place] [address] Jun, [facility] [address] [id number] [place] [address] Mar, [facility] [address] [id number] [place] [address] Feb, [facility] [address] [id number] [place] [address] Feb, [facility] [address] [id number] [place] [address] Nov, [facility] [address] [place] [id number] [place] [address] Aug, [facility] [address] [place] [id number] [place] [address] Aug, [facility] [address] [id number] [place] [address] Jul, [facility] [address] [place] [id number] [place] [address] Jul, [facility] [address] [place] [id number] [place] [address] May, [facility] [address] [place] [id number] [place] [address] May, [facility] [address] [id number] [place] [address] May, [facility] [address] [place] [id number] [place] [address] May, [facility] [address] [id number] [place] [address] Apr, [facility] [address] [place] [id number] [place] [address] Feb, [facility] [address] [id number] [place] [address] Feb, [facility] [address] [place] [id number] [place] [address] Jan, [facility] [address] [id number] [place] [address] Jan, [facility] [address] [place] [id number] [place] [address] Nov, [facility] [address] [place] [id number] [place] [address] Oct, [facility] [address] [place] [id number] [place] [address] Oct, [facility] [address] [place] [id number] [place] [address] Jul, [facility] [address] [place] [id number] [place] [address] May, [facility] [address] [place] [id number] [place] [address] Nov, [facility] [address] [place] [id number] [place] [address] Jun, [facility] [address] [place] [id number] [place] [address] December, [facility] [address] [place] [id number] [place] [address] Jul, IMMUNIZATIONS No Known Immunizations SOCIAL HISTORY Never Assessed REASON FOR VISIT PLAN OF CARE VITAL SIGNS MEDICATIONS Unknown [...] Medical History Uncontrolled type 2 diabetes mellitus th hyperglycemia Medical History Hay Fever Surgical History 2 stints placed 2018 Surgical History multiple stents Surgical History EGD and colonoscopy 07/07/2018 Hospitalization History rectal and vomitting blood 2018 Hospitalization History Hypoglycemia [facility]
--- OUTSIDE RECORDS SUMMARY | 2019-11-07 14:18 | XMS REPORT ---
Author Author Salomon STAHL Organization [facility] Address [address] [place] [address] Care Team Providers Care Yard Operator Name Role Phone RONDA STAHL Unavailable PROBLEMS Type Condition ICD9-CM Code UFY76-HG Code Onset Dates Condition S tatus SNOMED Code Problem Diabetes type 2, controlled E11.9 Ac tive 85854238 Problem Diabetes E11.9 Active 63496976 Problem Hypertriglyceridemia E78.1 Active 224952820 Problem Other chronic pain G89.29 Active 8 8069598 Problem COPD exacerbation J44.1 Active 19 6066269 Problem PTSD (post-traumatic stress disorder) F43.10 Active 51774017 Problem PVD (peripheral vascular disease) I73.9 Active 051199533 Problem Uncontrolled type 2 diabetes mellitus with hyperglycemia E11.65 Active 649163055 Problem Neuropathy of left foot G57.92 Active [id number] Problem Gastroesophageal reflux disease with esophagitis K 21.0 Active 614267011 Problem Recurrent major depressive disorder, in partial remission F33.41 Active 07501260 Problem Panlobular emphysema J43.1 Active 3799826 Problem Afib I48.91 Active 21465298 Problem Foot drop, right M21.371 Active 308 [id number] Problem Hypertensive heart disease with heart failure I11. 0 Active 32676241 Problem Hypoglycemia E16.2 Active 0774194 03 ALLERGIES No Information ENCOUNTERS Encounter Location Date Diagnosis [facility] [address] [id number] [place] [address] Jan, [facility] [id number] [place] [address] Oct, [facility] [address] [id number] [place] [address] Sep, [facility] [address] [id number] [place] [address] Sep, [facility] [address] [address] Sep, [facility] [address] [address] Sep, PTSD (post-traumatic stress disorder) F4 3.10 [facility] [address] [address] Aug, Other chronic pain G89.29 [facility] [address] [address] Jul, Uncontrolled type 2 diabetes mellitus wi th hyperglycemia E11.65 [place] [address] [address] Jul, Other chronic pain G89.29 [place] [address] [address] Jun, PTSD (post-traumatic stress disorder) F4 3.10 [place] [address] [address] Jun, PTSD (post-traumatic stress disorder) F4 3.10 [place] [address] [address] Jun, [place] [address] [address] Jun, Uncontrolled type 2 diabetes mellitus wi th hyperglycemia E11.65 [place] [address] [address] Jun, [place] [address] [address] Jun, PVD (peripheral vascular disease) I73.9 [place] [address] [address] May, [place] [address] [address] May, [place] [address] [address] May, Uncontrolled type 2 diabetes mellitus [facility] hyperglycemia E11.65 ; Neuropathy of left foot G57.92 ; Encounter for immunization Z23 and Recurrent major depressive disorder, in partial remission F33.41 [facility] [address] [address] May, [facility] [address] [address] May, [facility] [address] [address] May, PTSD (post-traumatic stress disorder) F4 3.10 and Hypertriglyceridemia E78.1 [place] [address] [address] May, [facility] [address] [id number] [id number] May, [facility] [address] [address] May, [facility] [address] [address] May, [facility] [address] [address] Apr, [facility] [address] [address] Apr, [facility] [address] [address] Apr, [facility] [address] [address] Mar, Other chronic pain G89.29 [facility] [address] [address] Mar, PTSD (post-traumatic stress disorder) F4 3.10 [facility] [address] [address] 15 Mar, 2019 Encounter for Medicare annual wellness e xam Z00.00 [facility] [address] [address] Mar, Encounter for Medicare annual wellness e xam Z00.00 ; Uncontrolled type 2 diabetes mellitus with hyperglycemia E11.65 ; Hypertensive heart disease with heart failure I11.0 ; PVD (peripheral vascular disease) I73.9 ; Panlobular emphysema J43.1 ; Gastroesophageal reflux disease with esophagitis K21.0 ; Afib I48.91 and Hypertriglyceridemia E78.1 [place] [address] [address] Mar, PTSD (post-traumatic stress disorder) F4 3.10 [place] [address] [address] Feb, [place] [address] [address] Feb, PTSD (post-traumatic stress disorder) F4 3.10 [place] [address] [address] Feb, Hypoglycemia E16.2 [place] [address] [address] Feb, [place] [address] [address] Feb, Hypoglycemia E16.2 [place] [address] [address] Feb, [place] [address] [address] Feb, [place] [address] [address] Feb, [place] [address] [address] Feb, [place] [address] [address] Feb, Hypertensive heart disease with heart fa ilure I11.0 [place] [address] [address] Jan, SOB (shortness of breath) on exertion R0 6.02 [place] [address] [address] December, SOB (shortness of breath) on exertion R0 6.02 [facility] [address] [address] December, [place] [address] [address] December, [place] [address] [address] December, [place] [address] [address] December, [place] [address] [address] December, PTSD (post-traumatic stress disorder) F4 3.10 [place] [address] [address] Nov, Diabetes type 2, controlled E11.9 ; Hype rtriglyceridemia E78.1 ; COPD exacerbation J44.1 ; PTSD (post-traumatic stress disorder) F43.10 ; Other chronic pain G89.29 ; Gastroesophageal reflux disease with esophagitis K21.0 ; PVD (peripheral vascular disease) I73.9 and Hypertensive heart disease with heart failure I11.0 [place] [address] [address] Oct, PTSD (post-traumatic stress disorder) F4 3.10 [place] [address] [address] Sep, Diabetes type 2, controlled E11.9 and PT SD (post-traumatic stress disorder) F43.10 [place] [address] [address] Sep, [place] [address] [address] Sep, PTSD (post-traumatic stress disorder) F4 3.10 [place] [address] [address] 06 Sep, 2018 [place] [address] [address] Aug, COPD exacerbation J44.1 ; Difficulty dorinda athing R06.89 ; History of GI bleed Z87.19 ; PVD (peripheral vascular disease) I73.9 and Uncontrolled type 2 diabetes mellitus with hyperglycemia E11.65 [place] [address] [address] Aug, [place] [address] [address] Aug, PTSD (post-traumatic stress disorder) F4 3.10 and Type 2 diabetes mellitus without complication, without long-term current use of insulin E11.9 [email or web address] [address] [place] [id number] Aug, History of GI bleed Z87.19 ; COPD exacer bation J44.1 and PVD (peripheral vascular disease) I73.9 [place] [address] [address] Aug, [facility] [address] [place] [id number] Aug, Diabetes E11.9 ; Other chronic pain G89. 29 and Panlobular emphysema J43.1 [place] [address] [address] Jul, [place] [address] [address] 14 Jun, 2018 PTSD (post-traumatic stress disorder) F4 3.10 [place] [address] [address] 14 Jun, [address] [address] 12 Jun, 2018 PTSD (post-traumatic stress disorder) F4 3.10 [place] [address] [address] Jun, [place] [address] [address] Jun, [place] [address] [address] Jun, Uncontrolled type 2 diabetes mellitus wi thout complication, without long-term current use of insulin E11.65 [place] [address] [address] Jun, PTSD (post-traumatic stress disorder) F4 3.10 ; Low back pain M54.5 ; Other chronic pain G89.29 ; Gastroesophageal reflux disease with esophagitis K21.0 and Panlobular emphysema J43.1 [place] [address] [address] Jun, [place] [address] [address] Jun, Other chest pain R07.89 ; Tachycardia R0 0.0 and Murmur, cardiac R01.1 [place] [address] [address] May, Other chest pain R07.89 ; Tachycardia R0 0.0 and Murmur, cardiac R01.1 [facility] [id number] [place] [address] May, [place] [address] [address] May, Uncontrolled type 2 diabetes mellitus wi hyperglycemia E11.65 and Oral candidiasis B37.0 [place] [address] [address] May, COPD exacerbation J44.1 [place] [address] [address] May, COPD exacerbation J44.1 [facility] [id number] [place] [address] May, COPD exacerbation J44.1 and Type 2 diabetes mellitus without complication, without long-term current use of insulin E11.9 [facility] [address] [facility] [id number] [place] [address] May, Difficulty breathing R06.89 and Acute bronchitis, unspecified organism J20.9 [facility] [id number] [place] [address] Apr, Uncontrolled type 2 diabetes mellitus wi thout complication, without long-term current use of insulin E11.65 [place] [id number] [place] [address] Feb, [place] [address] [address] Feb, [facility] [address] [address] Feb, [place] [address] [address] Jan, [place] [address] [address] Oct, [place] [address] [address] Jul, Diabetes type 2, controlled E11.9 [place] [address] [address] Jun, [place] [address] [address] May, [place] [address] [address] May, Diabetes type 2, controlled E11.9 and Hy pertriglyceridemia E78.1 [place] [address] [address] May, [place] [address] [address] Apr, Hypertriglyceridemia 272.1 ; Influenza v accine administered V04.81 and Diabetes 250.00 [place] [id number] [place] [address] Mar, DM type 2 (diabetes mellitus, type 2) 25 0.00 ; Essential hypertension, benign 401.1 and Mood disorder 296.90 [facility] [id number] [place] [address] Jan, [facility] [id number] [place] [address] Nov, [facility] [id number] [place] [address] Nov, [facility] [id number] [place] [address] Sep, [facility] [id number] [place] [address] Sep, [facility] [id number] [place] [address] Sep, [facility] [id number] [place] [address] Sep, [facility] [id number] [place] [address] May, [facility] [id number] [place] [address] May, [facility] [id number] [place] [address] Apr, [facility] [id number] [place] [address] Apr, [facility] [id number] [place] [address] Mar, [facility] [id number] [place] [address] Mar, [facility] [id number] [place] [address] Mar, [facility] [id number] [place] [address] Mar, [facility] [address] [facility] [id number] [place] [address] Jan, [facility] [address] [facility] [id number] [place] [address] Jan, [facility] [address] [id number] [place] [address] Jan, [facility] [id number] [place] [address] Jan, [facility] [address] [facility] [id number] [place] [address] Jan, [facility] [address] [id number] [place] [address] Jan, [facility] [address] [id number] [place] [address] Oct, [facility] [address] [id number] [place] [address] Oct, [facility] [address] [id number] [place] [address] Sep, [facility] [address] [id number] [place] [address] Sep, [facility] [address] [id number] [place] [address] Jun, [facility] [address] [id number] [place] [address] Jun, [facility] [address] [id number] [place] [address] Mar, [facility] [address] [id number] [place] [address] Feb, [facility] [address] [id number] [place] [address] Feb, [facility] [address] [id number] [place] [address] Nov, [facility] [address] [id number] [place] [address] Aug, [facility] [address] [id number] [place] [address] Aug, [facility] [address] [id number] [place] [address] Jul, [facility] [address] [id number] [place] [address] Jul, [facility] [address] [id number] [place] [address] May, [facility] [address] [id number] [place] [address] May, [facility] [address] [id number] [place] [address] May, [facility] [address] [id number] [place] [address] May, [facility] [address] [id number] [place] [address] Apr, [facility] [address] [id number] [place] [address] Feb, [facility] [address] [id number] [place] [address] Feb, [facility] [address] [id number] [place] [address] Jan, [facility] [address] [id number] [place] [address] Jan, [facility] [address] [id number] [place] [address] Nov, [facility] [id number] [place] [address] Oct, [facility] [address] [id number] [place] [address] Oct, [facility] [address] [id number] [place] [address] Jul, [facility] [address] [id number] [place] [address] May, [facility] [address] [id number] [place] [address] Nov, [facility] [address] [id number] [place] [address] Jun, [facility] [address] [id number] [place] [address] December, [facility] [address] [id number] [place] [address] Jul, IMMUNIZATIONS No Known Immunizations SOCIAL HISTORY [...] Medical History Uncontrolled type 2 diabetes mellitus hyperglycemia Medical History Hay Fever Surgical History 2 stints placed 2018 Surgical History multiple stents Surgical History EGD and colonoscopy 07/07/2018 Hospitalization History rectal and vomitting blood 2018 Hospitalization History Hypoglycemia Hospitalization History [facility] February 2019
--- OUTSIDE RECORDS SUMMARY | 2019-11-07 14:18 | XMS REPORT ---
Author Author Salomon STAHL Organization [facility] Address [address] [place] [address] Care Team Providers Care Physical Therapy Director Name Role Phone RONDA STAHL Unavailable PROBLEMS Type Condition ICD9-CM Code [id number] Code Onset Dates Condition S tatus SNOMED Code Problem Diabetes type 2, controlled E11.9 Ac tive 03725654 Problem Diabetes E11.9 Active 76226291 Problem Hypertriglyceridemia E78.1 Active 823276592 Problem Other chronic pain G89.29 Active 8 7280034 Problem COPD exacerbation J44.1 Active 19 9824567 Problem PTSD (post-traumatic stress disorder) F43.10 Active 56658049 Problem PVD (peripheral vascular disease) I73.9 Active 353192880 Problem Uncontrolled type 2 diabetes mellitus with hyperglycemia E11.65 Active 448916228 Problem Neuropathy of left foot G57.92 Active 871028511981111 Problem Gastroesophageal reflux disease with esophagitis K 21.0 Active 709565929 Problem Recurrent major depressive disorder, in partial remission F33.41 Active 32908482 Problem Panlobular emphysema J43.1 Active 5907990 Problem Afib I48.91 Active 47162531 Problem Foot drop, right M21.371 Active 308 439393109255 Problem Hypertensive heart disease with heart failure I11. 0 Active 48871147 Problem Hypoglycemia E16.2 Active 4292205 03 ALLERGIES No Information ENCOUNTERS Encounter Location Date Diagnosis [facility] [id number] [place] [address] Sep, [facility] [address] [address] Jul, Uncontrolled type 2 diabetes mellitus wi th hyperglycemia E11.65 [facility] [address] [address] Jul, Other chronic pain G89.29 [facility] [address] [address] Jun, PTSD (post-traumatic stress disorder) F4 3.10 [place] [address] [address] Jun, PTSD (post-traumatic stress disorder) F4 3.10 [place] [address] [address] Jun, [place] [address] [address] Jun, Uncontrolled type 2 diabetes mellitus wi th hyperglycemia E11.65 [place] [address] [address] Jun, [place] [address] [address] Jun, PVD (peripheral vascular disease) I73.[address] [address] May, [place] [address] [address] May, [address] [address] May, Uncontrolled type 2 diabetes mellitus wi th hyperglycemia E11.65 ; Neuropathy of left foot G57.92 ; Encounter for immunization Z23 and Recurrent major depressive disorder, in partial remission F33.41 [place] [address] [address] May, [place] [address] [address] May, [address] [address] May, PTSD (post-traumatic stress disorder) F4 3.10 and Hypertriglyceridemia E78.1 [place] [address] [address] May, [place] [address] [id number] [id number] May, [facility] [id number] [place] [address] May, [facility] [address] [address] May, [facility] [id number] [place] [address] Apr, [facility] [address] [address] Apr, [facility] [address] [address] Apr, [facility] [address] [address] Mar, Other chronic pain G89.29 [place] [address] [address] Mar, PTSD (post-traumatic stress disorder) F4 3.10 [place] [id number] [place] [address] 15 Mar, 2019 Encounter for Medicare annual wellness e xam Z00.00 [place] [address] [address] Mar, Encounter for Medicare annual wellness e xam Z00.00 ; Uncontrolled type 2 diabetes mellitus with hyperglycemia E11.65 ; Hypertensive heart disease with heart failure I11.0 ; PVD (peripheral vascular disease) I73.9 ; Panlobular emphysema J43.1 ; Gastroesophageal reflux disease with esophagitis K21.0 ; Afib I48.91 and Hypertriglyceridemia E78.1 [place] [id number] [place] [address] Mar, PTSD (post-traumatic stress disorder) F4 3.10 [facility] [id number] [place] [address] Feb, [facility] [address] [address] Feb, PTSD (post-traumatic stress disorder) F4 3.10 [facility] [address] [address] Feb, Hypoglycemia E16.2 [facility] [address] [address] Feb, [facility] [address] [address] Feb, Hypoglycemia E16.2 [facility] [address] [address] Feb, [facility] [address] [address] Feb, [facility] [address] [address] Feb, [facility] [address] [address] Feb, [facility] [address] [address] Feb, Hypertensive heart disease with heart fa ilure I11.0 [facility] [address] [address] Jan, SOB (shortness of breath) on exertion R0 6.02 [facility] [address] [address] December, SOB (shortness of breath) on exertion R0 6.02 [facility] [address] [address] December, [facility] [address] [address] December, [facility] [address] [address] December, [facility] [address] [address] December, [facility] [address] [address] December, PTSD (post-traumatic stress disorder) F4 3.10 [place] [address] [address] Nov, Diabetes type 2, controlled E11.9 ; Hype rtriglyceridemia E78.1 ; COPD exacerbation J44.1 ; PTSD (post-traumatic stress disorder) F43.10 ; Other chronic pain G89.29 ; Gastroesophageal reflux disease with esophagitis K21.0 ; PVD (peripheral vascular disease) I73.9 and Hypertensive heart disease with heart failure I11.0 [place] [address] [address] Oct, PTSD (post-traumatic stress disorder) F4 3.10 [place] [address] [address] Sep, Diabetes type 2, controlled E11.9 and PT SD (post-traumatic stress disorder) F43.10 [place] [address] [address] Sep, [place] [address] [address] Sep, PTSD (post-traumatic stress disorder) F4 3.10 [place] [address] [address] Sep, [place] [address] [address] Aug, COPD exacerbation J44.1 ; Difficulty dorinda athing R06.89 ; History of GI bleed Z87.19 ; PVD (peripheral vascular disease) I73.9 and Uncontrolled type 2 diabetes mellitus with hyperglycemia E11.65 [place] [address] [address] Aug, [address] [address] Aug, PTSD (post-traumatic stress disorder) F4 3.10 and Type 2 diabetes mellitus without complication, without long-term current use of insulin E11.9 [facility] [address] [place] [id number] Aug, History of GI bleed Z87.19 ; COPD exacer bation J44.1 and PVD (peripheral vascular disease) I73.9 [place] [address] [address] Aug, [facility] [address] [place] [id number] Aug, Diabetes E11.9 ; Other chronic pain G89. 29 and Panlobular emphysema J43.1 [place] [address] [address] Jul, [place] [address] [address] Jun, PTSD (post-traumatic stress disorder) F4 3.10 [place] [address] [address] 14 Jun, 2018 [place] [address] [address] 12 Jun, 2018 PTSD (post-traumatic stress disorder) F4 3.10 [place] [address] [address] 12 Jun, 2018 [place] [address] [address] Jun, [place] [address] [address] 08 Jun, 2018 Uncontrolled type 2 diabetes mellitus [facility] complication, without long-term current use of insulin E11.65 [place] [address] [address] 07 Jun, 2018 PTSD (post-traumatic stress disorder) F4 3.10 ; Low back pain M54.5 ; Other chronic pain G89.29 ; Gastroesophageal reflux disease with esophagitis K21.0 and Panlobular emphysema J43.1 [place] [address] [address] Jun, [facility] [address] [address] Jun, Other chest pain R07.89 ; Tachycardia R0 0.0 and Murmur, cardiac R01.1 [facility] [address] [address] May, Other chest pain R07.89 ; Tachycardia R0 0.0 and Murmur, cardiac R01.1 [facility] [address] [address] May, [place] [address] [address] May, Uncontrolled type 2 diabetes mellitus wi th hyperglycemia E11.65 and Oral candidiasis B37.0 [place] [address] [address] May, COPD exacerbation J44.1 [place] [address] [address] May, COPD exacerbation J44.1 [facility] [address] [address] May, COPD exacerbation J44.1 and Type 2 diabetes mellitus without complication, without long-term current use of insulin E11.9 [facility] [address] [place] [address] May, Difficulty breathing R06.89 and Acute bronchitis, unspecified organism J20.9 [place] [address] [address] Apr, Uncontrolled type 2 diabetes mellitus wi thout complication, without long-term current use of insulin E11.65 [place] [address] [address] Feb, [place] [address] [address] Feb, [place] [address] [address] Feb, [facility] [id number] [place] [address] Jan, [facility] [address] [address] Oct, [facility] [address] [address] Jul, Diabetes type 2, controlled E11.9 [facility] [address] [address] Jun, [facility] [address] [address] May, [facility] [address] [address] May, Diabetes type 2, controlled E11.9 and Hy pertriglyceridemia E78.1 [place] [address] [address] May, [facility] [address] [address] Apr, Hypertriglyceridemia 272.1 ; Influenza v accine administered V04.81 and Diabetes 250.00 [place] [address] [address] Mar, DM type 2 (diabetes mellitus, type 2) 25 0.00 ; Essential hypertension, benign 401.1 and Mood disorder 296.90 [facility] [address] [address] Jan, [facility] [address] [address] Nov, [facility] [address] [address] Nov, [facility] [address] [address] Sep, [facility] [address] [address] Sep, [facility] [address] [id number] [place] [address] Sep, [facility] [address] [id number] [place] [address] Sep, [facility] [address] [id number] [place] [address] May, [facility] [address] [id number] [place] [address] May, [facility] [address] [facility] [id number] [place] [address] Apr, [facility] [address] [id number] [place] [address] Apr, [facility] [address] [id number] [place] [address] Mar, [facility] [address] [id number] [place] [address] Mar, [facility] [address] [id number] [place] [address] Mar, [facility] [address] [id number] [place] [address] Mar, [facility] [address] [id number] [place] [address] Jan, [facility] [address] [id number] [place] [address] Jan, [facility] [address] [id number] [place] [address] Jan, [facility] [address] [id number] [place] [address] Jan, [facility] [address] [id number] [place] [address] Jan, [facility] [address] [id number] [place] [address] Jan, [facility] [address] [id number] [place] [address] Oct, [facility] [address] [id number] [place] [address] Oct, [facility] [address] [id number] [place] [address] Sep, [facility] [address] [id number] [place] [address] Sep, [facility] [address] [id number] [place] [address] Jun, [facility] [address] [id number] [place] [address] Jun, [facility] [address] [id number] [place] [address] Mar, [facility] [address] [id number] [place] [address] Feb, [facility] [address] [id number] [place] [address] Feb, [facility] [address] [id number] [place] [address] Nov, [facility] [id number] [place] [address] Aug, [facility] [address] [id number] [place] [address] Aug, [facility] [id number] [place] [address] Jul, [facility] [address] [id number] [place] [address] Jul, [facility] [address] [id number] [place] [address] May, [facility] [address] [id number] [place] [address] May, [facility] [address] [id number] [place] [address] May, [facility] [id number] [place] [address] May, [facility] [id number] [place] [address] Apr, [facility] [id number] [place] [address] Feb, [facility] [id number] [place] [address] Feb, [facility] [id number] [place] [address] Jan, [facility] [id number] [place] [address] Jan, [facility] [id number] [place] [address] Nov, [facility] [id number] [place] [address] Oct, [facility] [id number] [place] [address] Oct, [facility] [id number] [place] [address] Jul, [facility] [id number] [place] [address] May, [facility] [id number] [place] [address] Nov, [facility] [id number] [place] [address] Jun, [facility] [id number] [place] [address] December, [facility] [id number] [place] [address] Jul, IMMUNIZATIONS No Known Immunizations SOCIAL HISTORY [...] 2018 Hospitalization History Hypoglycemia Hospitalization History Via February 2019
--- OUTSIDE RECORDS SUMMARY | 2019-11-07 14:19 | XMS REPORT ---
Author Author Salomon STAHL Organization [facility] Address [address] [place] [address] Care Team Providers Care Rn Anesthetist Name Role Phone RONDA STAHL Unavailable PROBLEMS Type Condition ICD9-CM Code NPV05-EZ Code Onset Dates Condition S tatus SNOMED Code Problem Diabetes type 2, controlled E11.9 Ac tive 99498267 Problem Diabetes E11.9 Active 87455800 Problem Hypertriglyceridemia E78.1 Active 671009198 Problem Panlobular emphysema J43.1 Active 9321689 Problem Gastroesophageal reflux disease with esophagitis K 21.0 Active 650794450 Problem PTSD (post-traumatic stress disorder) F43.10 Active 67398619 Problem Hypertensive heart disease with heart failure I11. 0 Active 44937661 Problem Other chronic pain G89.29 Active 8 0336574 Problem Hypoglycemia E16.2 Active 5604610 03 Problem COPD exacerbation J44.1 Active 19 0790408 Problem PVD (peripheral vascular disease) I73.9 Active 365853626 Problem Uncontrolled type 2 diabetes mellitus with hyperglycemia E11.65 Active 606204668 Problem Foot drop, right M21.371 Active 308 419881001781 Problem Afib I48.91 Active [id number] ALLERGIES No Information ENCOUNTERS Encounter Location Date Diagnosis [facility] [address] [facility] [id number] [address] [place] [phone] May, [facility] [address] [facility] [id number] [address] [place] [phone] May, [facility] [address] [facility] [id number] [address] [place] [phone] May, [facility] [address] [facility] [id number] [address] [place] [phone] May, [facility] [address] [facility] [id number] [address] [place] [phone] Apr, [facility] [address] [id number] [address] [place] [phone] Apr, [facility] [address] [id number] [address] [place] [phone] Apr, [facility] [address] [facility] [id number] [address] [place] [address] Mar, Other chronic pain G89.29 [facility] [address] [facility] [id number] [address] [place] [address] Mar, PTSD (post-traumatic stress disorder) F43.10 [facility] [address] [facility] [id number] [address] [place] [phone] 15 Mar, 2019 Encounter for Medicare annua l wellness exam Z00.00 [place] [address] [facility] [id number] [address] [place] [address] Mar, Encounter for Medicare annua l wellness exam Z00.00 ; Uncontrolled type 2 diabetes mellitus with hyperglycemia E11.65 ; Hypertensive heart disease with heart failure I11.0 ; PVD (peripheral vascular disease) I73.9 ; Panlobular emphysema J43.1 ; Gastroesophageal reflux disease with esophagitis K21.0 ; Afib I48.[address] [facility] [address] [facility] [id number] [address] [place] [address] Mar, PTSD (post-traumatic stress disorder) F43.10 [facility] [address] [facility] [id number] [address] [place] [phone] Feb, [facility] [address] [facility] [id number] [address] [place] [address] Feb, PTSD (post-traumatic stress disorder) F43.10 [facility] [address] [facility] [id number] [address] [place] [phone] Feb, Hypoglycemia E16.2 [facility] [address] [facility] [id number] [address] [place] [phone] Feb, [place] [address] [id number] [address] [place] [phone] Feb, Hypoglycemia E16.2 [facility] [address] [id number] [address] [place] [phone] Feb, [facility] [address] [facility] [id number] [address] [place] [phone] Feb, [facility] [address] [id number] [address] [place] [phone] Feb, [facility] [address] [id number] [address] [place] [phone] Feb, [facility] [address] [id number] [address] [place] [phone] Feb, Hypertensive heart disease w ith heart failure I11.0 [facility] [address] [facility] [id number] [address] [place] [phone] Jan, SOB (shortness of breath) on exertion R06.02 [facility] [address] [facility] [id number] [address] [place] [address] December, SOB (shortness of breath) on exertion R06.02 [facility] [address] [facility] [id number] [address] [place] [phone] December, [facility] [address] [facility] [id number] [address] [place] [phone] December, [facility] [address] [facility] [id number] [address] [place] [phone] December, [facility] [address] [facility] [id number] [address] [place] [address] December, [facility] [address] [facility] [id number] [address] [place] [address] December, PTSD (post-traumatic stress disorder) F43.10 [facility] [address] [facility] [id number] [address] [place] [phone] Nov, Diabetes type 2, controlled E11.9 ; Hypertriglyceridemia E78.1 ; COPD exacerbation J44.1 ; PTSD (post-traumatic stress disorder) F43.10 ; Other chronic pain G89.29 ; Gastroesophageal reflux disease with esophagitis K21.0 ; PVD (peripheral vascular disease) I73.9 and Hypertensive heart disease with heart failure I11.0 [place] [address] [place] [id number] [address] [place] [phone] Oct, PTSD (post-traumatic stress disorder) F43.10 [place] [address] [facility] [id number] [address] [place] [address] Sep, Diabetes type 2, controlled E11.9 and PTSD (post-traumatic stress disorder) F43.10 [place] [address] [place] [id number] [address] [place] [phone] Sep, [place] [address] [place] [id number] [address] [place] [phone] Sep, PTSD (post-traumatic stress disorder) F43.10 [place] [address] [place] [id number] [address] [place] [phone] Sep, [place] [address] [place] [id number] [address] [place] [address] Aug, COPD exacerbation J44.1 ; Di fficulty breathing R06.89 ; History of GI bleed Z87.19 ; PVD (peripheral vascular disease) I73.9 and Uncontrolled type 2 diabetes mellitus with hyperglycemia E11.65 [place] [address] [facility] [id number] [address] [place] [phone] Aug, [place] [address] [place] [id number] [address] [place] [phone] Aug, PTSD (post-traumatic stress disorder) F43.10 and Type 2 diabetes mellitus without complication, without long-term current use of insulin E11.9 [facility] [address] [place] [id number] Aug, History of GI bleed Z87.19 ; COPD exacer bation J44.1 and PVD (peripheral vascular disease) I73.9 [facility] [address] [id number] [address] [place] [phone] Aug, [facility] [address] [place] [id number] Aug, Diabetes E11.9 ; Other chronic pain G89. 29 and Panlobular emphysema J43.1 [facility] [address] [id number] [address] [place] [phone] Jul, [facility] [address] [id number] [address] [place] [phone] Jun, PTSD (post-traumatic stress disorder) F43.10 [place] [address] [id number] [address] [place] [phone] Jun, [place] [address] [facility] [id number] [address] [place] [phone] Jun, PTSD (post-traumatic stress disorder) F43.10 [place] [address] [id number] [address] [place] [phone] Jun, [place] [address] [facility] [id number] [address] [place] [phone] Jun, [facility] [address] [facility] [id number] [address] [place] [phone] Jun, Uncontrolled type 2 diabetes mellitus without complication, without long-term current use of insulin E11.65 [facility] [address] [id number] [address] [place] [phone] 07 Jun, 2018 PTSD (post-traumatic stress disorder) F43.10 ; Low back pain M54.5 ; Other chronic pain G89.29 ; Gastroesophageal reflux disease with esophagitis K21.0 and Panlobular emphysema J43.1 [facility] [address] [facility] [id number] [address] [place] [phone] Jun, [facility] [address] [facility] [id number] [address] [place] [phone] Jun, Other chest pain R07.89 ; Ta chycardia R00.0 and Murmur, cardiac R01.1 [facility] [address] [facility] [id number] [place] [phone] May, Other chest pain R07.89 ; Ta chycardia R00.0 and Murmur, cardiac R01.1 [facility] [address] [facility] [id number] [address] [place] [address] May, [place] [address] [facility] [id number] [place] [phone] May, Uncontrolled type 2 diabetes mellitus with hyperglycemia E11.65 and Oral candidiasis B37.0 [place] [address] [place] [id number] [place] [address] May, COPD exacerbation J44.1 [place] [address] [address] May, COPD exacerbation J44.1 [facility] [address] [place] [id number] [place] [address] May, COPD exacerbation J44.1 and Type 2 diabetes mellitus without complication, without long-term current use of insulin E11.9 [facility] [address] [place] [id number] [address] [place] [phone] May, Difficulty breathing R06.89 and Acute bronchitis, unspecified organism J20.9 [place] [address] [facility] [id number] [address] [place] [phone] Apr, Uncontrolled type 2 diabetes mellitus without complication, without long-term current use of insulin E11.65 [place] [address] [place] [id number] [place] [address] Feb, [place] [address] [facility] [id number] [address] [place] [phone] Feb, [place] [address] [place] [id number] [place] [address] Feb, [facility] [address] [facility] [id number] [address] [place] [phone] Jan, [facility] [address] [facility] [id number] [address] [place] [address] Oct, [facility] [address] [facility] [id number] [address] [place] [address] Jul, Diabetes type 2, controlled E11.9 [facility] [address] [facility] [id number] [address] [place] [phone] Jun, [facility] [address] [facility] [id number] [address] [place] [phone] May, [facility] [address] [place] [id number] [address] [place] [address] May, Diabetes type 2, controlled E11.[address] [facility] [address] [id number] May, [facility] [address] [place] [id number] [address] [place] [address] Apr, Hypertriglyceridemia 272.1 ; Influenza vaccine administered V04.[address] [facility] [address] [place] [id number] [address] [place] [address] Mar, DM type 2 (diabetes mellitus , type 2) 250.00 ; Essential hypertension, benign 401.[address] [facility] [address] [facility] [id number] [address] [place] [phone] Jan, [facility] [address] [facility] [id number] [address] [place] [phone] Nov, [facility] [address] [place] [id number] [address] [place] [phone] Nov, [facility] [address] [place] [id number] [address] [place] [phone] Sep, [facility] [address] [id number] [address] [address], [place] [address] Sep, 2014 [facility] [address] [id number] [address] [address], [place] [address] Sep, 2014 [facility] [address] [id number] [address] [address], [place] [address] Sep, [facility] [address] [id number] [address] [address], [place] [address] May, [facility] [address] [id number] [address] [address], [place] [address] May, [facility] [address] [id number] [address] [address], [place] [address] Apr, [facility] [address] [id number] [address] [address], [place] [address] Apr, [facility] [address] [id number] [address] [address], [place] [address] Mar, [facility] [address] [id number] [address] [address], [place] [address] Mar, [facility] [address] [id number] [address] [address], [place] [address] Mar, [facility] [address] [id number] [address] [address], [place] [address] Mar, [facility] [address] [id number] [address] [address], [place] [address] Jan, [facility] [address] [id number] [address] [place] [address], [place] [address] Jan, [facility] [address] [id number] [address] [address], [place] [address] Jan, [facility] [address] [id number] [address] [address], [place] [address] Jan, [facility] [address] [id number] [address] [address], [place] [address] Jan, [facility] [address] [id number] [facility] [place] [address] Jan, [facility] [address] [id number] [address] [address], [place] [address] Oct, [facility] [address] [id number] [address] [address], [place] [address] Oct, [facility] [address] [id number] [address] [address], [place] [address] Sep, [facility] [address] [id number] [address] [address], [place] [address] Sep, [facility] [address] [id number] [address] [address], [place] [address] Jun, [facility] [address] [id number] [address] [address], [place] [address] Jun, [facility] [address] [id number] [address] [address], [place] [address] Mar, [facility] [address] [id number] [address] [address], [place] [address] Feb, [facility] [address] [id number] [address] [address], [place] [address] Feb, [facility] [address] [id number] [address] [address], [place] [address] Nov, [facility] [address] [id number] [address] [place] [address], [place] [address] Aug, [facility] [address] [id number] [address] [address], [place] [address] Aug, [facility] [address] [id number] [address] [place] [address], [place] [address] Jul, [facility] [address] [id number] [address] [place] [address], [place] [address] Jul, [facility] [address] [id number] [address] [place] [address], [place] [address] May, [facility] [address] [id number] [address] [address], [place] [address] May, [facility] [address] [id number] [address] [address], [place] [address] May, [facility] [address] [id number] [address] [place] [address], [place] [address] May, [facility] [address] [id number] [address] [address], [place] [address] Apr, [facility] [address] [id number] [address] [place] [address], [place] [address] Feb, [facility] [address] [id number] [address] [place] [address], [place] [address] Feb, [facility] [address] [id number] [address] [place] [address], [place] [address] Jan, [facility] [address] [id number] [address] [place] [address], [place] [address] Jan, [facility] [address] [id number] [address] [place] [address], [place] [address] Nov, [facility] [address] [id number] [address] [place] [address], [place] [address] Oct, [facility] [address] [id number] [address] [place] [address], [place] [address] Oct, [facility] [address] [id number] [address] [place] [address], [place] [address] Jul, [facility] [address] [id number] [address] [place] [address], [place] [address] May, [facility] [address] [id number] [address] [place] [address], [place] [address] Nov, [facility] [address] [id number] [address] [place] [address], [place] [address] Jun, [facility] [address] [facility] [id number] [address] [place] [address] December, [facility] [address] [facility] [id number] [address] [place] [address] Jul, IMMUNIZATIONS No Known Immunizations SOCIAL HISTORY Never Assessed REASON FOR VISIT PLAN OF CARE VITAL SIGNS Height 68 in 2014-01-30 Weight 193.2 lbs 2014-01-30 Temperature 97.8 degrees Fahrenheit 2014-01-30 Heart Rate 84 bpm 2014-01-30 Respiratory Rate 18 2014-01-30 Blood pressure systolic 184 mmHg 2014-01-30 Blood pressure diastolic 90 mmHg 2014-01-30 MEDICATIONS Unknown Medications RESULTS No Results PROCEDURES Procedure Date Ordered Result Body Site GLYCATED HEMOGLOBIN TEST January 30, 2014 MICROALBUMIN, SEMIQUANT January 30, 2014 MICROALBUMIN, QUANTITATIVE January 30, 2014 INSTRUCTIONS MEDICATIONS ADMINISTERED No Known Medications [...] Hay Fever Surgical History 2 stints placed 2019 Surgical History multiple stents Surgical History EGD and colonoscopy 07/07/2018 Hospitalization History rectal and vomitting blood 2018 Hospitalization History Hypoglycemia Hospitalization History [facility] February 2019
--- OUTSIDE RECORDS SUMMARY | 2019-11-07 14:19 | XMS REPORT ---
Author Author Salomon STAHL Organization [facility] Address [address] [place] [address] Care Team Providers Care Consolidator Name Role Phone RONDA STAHL Unavailable PROBLEMS Type Condition ICD9-CM Code CSW01-AT Code Onset Dates Condition S tatus SNOMED Code Problem Diabetes type 2, controlled E11.9 Ac tive 27502303 Problem Diabetes E11.9 Active 55776393 Problem Hypertriglyceridemia E78.1 Active 313156596 Problem Panlobular emphysema J43.1 Active 2461548 Problem Gastroesophageal reflux disease with esophagitis K 21.0 Active 532304094 Problem PTSD (post-traumatic stress disorder) F43.10 Active 23697430 Problem Hypertensive heart disease with heart failure I11. 0 Active 31421390 Problem Other chronic pain G89.29 Active 8 7767727 Problem Hypoglycemia E16.2 Active 8675240 03 Problem COPD exacerbation J44.1 Active 19 7122407 Problem PVD (peripheral vascular disease) I73.9 Active 184044068 Problem Uncontrolled type 2 diabetes mellitus with hyperglycemia E11.65 Active 660584636 Problem Foot drop, right M21.371 Active 308 [id number] Problem Afib I48.91 Active 86993646 ALLERGIES No Information ENCOUNTERS Encounter Location Date Diagnosis [facility] [address] [facility] [id number] [address] [place] [id number] Mar, [facility] [address] [facility] [id number] [address] [place] [address] Feb, [facility] [address] [facility] [id number] [address] [place] [address] Feb, [facility] [address] [facility] [id number] [address] [place] [address] Feb, Hypoglycemia E16.2 [facility] [address] [facility] [id number] [address] [place] [id number] Feb, [facility] [address] [facility] [id number] [address] [place] [address] Feb, [facility] [address] [facility] [id number] [address] [place] [address] Feb, [facility] [address] [facility] [id number] [address] [place] [id number] Feb, [facility] [address] [facility] [id number] [address] [place] [address] Feb, Hypertensive heart disease w ith heart failure I11.0 [facility] [address] [facility] [id number] [address] [place] [address] Jan, SOB (shortness of breath) on exertion R06.02 [facility] [address] [place] [id number] [address] [place] [address] December, SOB (shortness of breath) on exertion R06.02 [facility] [address] [facility] [id number] [address] [place] [address] December, [facility] [address] [facility] [id number] [address] [place] [address] December, [facility] [address] [facility] [id number] [address] [place] [address] December, [facility] [address] [place] [id number] [address] [place] [address] December, [facility] [address] [place] [id number] [address] [place] [address] December, PTSD (post-traumatic stress disorder) F43.10 [facility] [address] [facility] [id number] [address] [place] [address] Nov, Diabetes type 2, controlled E11.9 ; Hypertriglyceridemia E78.1 ; COPD exacerbation J44.1 ; PTSD (post-traumatic stress disorder) F43.10 ; Other chronic pain G89.29 ; Gastroesophageal reflux disease with esophagitis K21.0 ; PVD (peripheral vascular disease) I73.9 and Hypertensive heart disease with heart failure I11.0 [place] [address] [facility] [id number] [address] [place] [id number] 12 Oct, 2018 PTSD (post-traumatic stress disorder) F43.10 [place] [address] [facility] [id number] [address] [place] [address] Sep, Diabetes type 2, controlled E11.9 and PTSD (post-traumatic stress disorder) F43.10 [place] [address] [facility] [id number] [address] [place] [address] Sep, [place] [address] [place] [id number] [address] [place] [address] Sep, PTSD (post-traumatic stress disorder) F43.10 [place] [address] [place] [id number] [address] [place] [address] Sep, [place] [address] [place] [id number] [address] [place] [address] Aug, COPD exacerbation J44.1 ; Di fficulty breathing R06.89 ; History of GI bleed Z87.19 ; PVD (peripheral vascular disease) I73.9 and Uncontrolled type 2 diabetes mellitus with hyperglycemia E11.65 [place] [address] [facility] [id number] [address] [place] [address] 11 Aug, 2018 [place] [address] [facility] [id number] [address] [place] [address] Aug, PTSD (post-traumatic stress disorder) F43.10 and Type 2 diabetes mellitus without complication, without long-term current use of insulin E11.9 [facility] [employer] [address] [place] [id number] Aug, History of GI bleed Z87.19 ; COPD exacer bation J44.1 and PVD (peripheral vascular disease) I73.9 [place] [address] [facility] [id number] [address] [place] [address] Aug, [facility] [employer] [address] [place] [id number] Aug, Diabetes E11.9 ; Other chronic pain G89. 29 and Panlobular emphysema J43.1 [place] [address] [facility] [id number] [address] [place] [address] Jul, [place] [address] [place] [id number] [address] [place] [address] Jun, PTSD (post-traumatic stress disorder) F43.10 [place] [address] [place] [id number] [address] [place] [address] Jun, [place] [address] [place] [id number] [place] [address] Jun, PTSD (post-traumatic stress disorder) F43.10 [place] [address] [place] [id number] [place] [address] Jun, [place] [address] [place] [id number] [address] [place] [address] Jun, [place] [address] [place] [id number] [address] [place] [address] Jun, Uncontrolled type 2 diabetes mellitus without complication, without long-term current use of insulin E11.65 [place] [address] [place] [id number] [place] [id number] 07 Jun, 2018 PTSD (post-traumatic stress disorder) F43.10 ; Low back pain M54.5 ; Other chronic pain G89.29 ; Gastroesophageal reflux disease with esophagitis K21.0 and Panlobular emphysema J43.1 [place] [address] [place] [id number] [address] [place] [address] Jun, [place] [address] [address] Jun, Other chest pain R07.89 ; Ta chycardia R00.0 and Murmur, cardiac R01.1 [place] [address] [place] [id number] [address] [place] [address] May, Other chest pain R07.89 ; Ta chycardia R00.0 and Murmur, cardiac R01.1 [facility] [address] [id number] [address] [place] [address] May, [facility] [address] [facility] [id number] [address] [place] [address] May, Uncontrolled type 2 diabetes mellitus with hyperglycemia E11.65 and Oral candidiasis B37.0 [facility] [address] [facility] [id number] [address] [place] [address] May, COPD exacerbation J44.1 [facility] [address] [facility] [id number] [address] [place] [address] May, COPD exacerbation J44.1 [facility] [address] [facility] [id number] [address] [place] [address] May, COPD exacerbation J44.1 and Type 2 diabetes mellitus without complication, without long-term current use of insulin E11.9 [facility] [address] [facility] [id number] [address] [place] [address] May, Difficulty breathing R06.89 and Acute bronchitis, unspecified organism J20.9 [facility] [address] [facility] [id number] [address] [place] [address] Apr, Uncontrolled type 2 diabetes mellitus without complication, without long-term current use of insulin E11.65 [place] [address] [facility] [id number] [address] [place] [address] Feb, [facility] [address] [facility] [id number] [address] [place] [address] Feb, [facility] [address] [facility] [id number] [address] [place] [address] Feb, [facility] [address] [facility] [id number] [address] [place] [address] Jan, [facility] [address] [facility] [id number] [address] [place] [address] Oct, [facility] [address] [facility] [id number] [address] [place] [address] Jul, Diabetes type 2, controlled E11.9 [facility] [address] [facility] [id number] [address] [place] [address] Jun, [facility] [address] [facility] [id number] [place] [address] May, [facility] [address] [place] [id number] [place] [address] May, Diabetes type 2, controlled E11.9 and Hypertriglyceridemia E78.1 [facility] [address] [place] [id number] [place] [address] May, [facility] [address] [place] [id number] [place] [address] Apr, Hypertriglyceridemia 272.1 ; Influenza vaccine administered V04.81 and Diabetes 250.00 [facility] [address] [place] [id number] [address] [place] [address] Mar, DM type 2 (diabetes mellitus , type 2) 250.00 ; Essential hypertension, benign 401.1 and Mood disorder 296.90 [facility] [address] [place] [id number] [address] [place] [address] Jan, [facility] [address] [place] [id number] [address] [place] [address] Nov, [facility] [address] [place] [id number] [address] [place] [address] Nov, [facility] [address] [address] Sep, [facility] [address] [place] [id number] [address] [place] [address] Sep, [facility] [address] [place] [id number] [address] [place] [address] Sep, [facility] [address] [id number] [address] [place] [address], [place] [id number] Sep, [facility] [address] [id number] [address] [place] [address], [place] [id number] May, [facility] [address] [id number] [address] [place] [address], [place] [id number] May, [facility] [address] [id number] [address] [place] [address], [place] [id number] Apr, [facility] [address] [id number] [address] [place] [address], [place] [id number] Apr, [facility] [address] [id number] [address] [place] [address], [place] [id number] Mar, [facility] [address] [id number] [address] [place] [address], [place] [id number] Mar, [facility] [address] [id number] [address] [place] [address], [place] [id number] Mar, [facility] [address] [id number] [address] [place] [address], [place] [id number] Mar, [facility] [address] [id number] [address] [place] [address], [place] [id number] Jan, [facility] [address] [id number] [address] [place] [address], [place] [id number] Jan, [facility] [address] [id number] [address] [place] [address] Jan, [facility] [address] [id number] [address] [place] [address], [place] [id number] Jan, [facility] [address] [id number] [address] [place] [address], [place] [id number] Jan, [facility] [address] [id number] [address] [place] [address], [place] [id number] Jan, [facility] [address] [id number] [address] [place] [address], [place] [id number] Oct, [facility] [address] [id number] [address] [place] [address], [place] [id number] Oct, [facility] [address] [id number] [address] [place] [address], [place] [id number] Sep, [facility] [address] [id number] [address] [place] [address], [place] [id number] Sep, [facility] [address] [id number] [address] [place] [address], [place] [id number] Jun, [facility] [address] [id number] [address] [place] [address], [place] [id number] Jun, [facility] [address] [id number] [address] [place] [address], [place] [id number] Mar, [facility] [address] [id number] [address] [place] [address], [place] [id number] Feb, [facility] [address] [id number] [address] [place] [address], [place] [id number] Feb, [facility] [address] [id number] [address] [place] [address], [place] [id number] Nov, [facility] [address] [id number] [address] [place] [address], [place] [id number] Aug, [facility] [address] [id number] [address] [place] [address], [place] [id number] Aug, [facility] [address] [id number] [address] [place] [address], [place] [id number] Jul, [facility] [address] [id number] [address] [place] [address], [place] [id number] Jul, [facility] [address] [id number] [address] [place] [address], [place] [id number] May, [facility] [address] [id number] [address] [place] [address], [place] [id number] May, [facility] [address] [id number] [address] [place] [address], [place] [id number] May, [facility] [address] [id number] [address] [place] [address], [place] [id number] May, [facility] [address] [id number] [address] [place] [address], [place] [id number] 28 Apr, 2012 [facility] [address] [id number] [address] [place] [address], [place] [id number] Feb, [facility] [address] [id number] [address] [place] [address], [place] [id number] Feb, [facility] [address] [id number] [address] [place] [address], [place] [id number] Jan, [facility] [address] [id number] [address] [place] [address], [place] [id number] Jan, [facility] [address] [id number] [address] [place] [address], [place] [id number] Nov, [facility] [address] [id number] [address] [place] [address], [place] [id number] Oct, [facility] [address] [id number] [address] [place] [address], [place] [id number] Oct, [facility] [address] [id number] [address] [place] [address], [place] [id number] Jul, [facility] [address] [id number] [address] [place] [address], [place] [id number] May, [facility] [address] [id number] [address] [place] [address], [place] [id number] Nov, [facility] [address] [id number] [address] [place] [address], [place] [id number] Jun, [facility] [address] [id number] [address] [place] [address], [place] [id number] December, [facility] [address] [id number] [address] [place] [address] [address] Jul, IMMUNIZATIONS No Known Immunizations SOCIAL HISTORY [...]
--- OUTSIDE RECORDS SUMMARY | 2019-11-07 14:19 | XMS REPORT ---
Author Author Salomon Ayala Doctor Organization [facility] Address Unknown Phone Unavailable Care Team Providers Care Site Damage Prevention Technician Name Role Phone Migration, Doctor Unavailable Unavailable PROBLEMS Type Condition ICD9-CM Code EFO12-CR Code Onset Dates Condition S tatus SNOMED Code Problem Diabetes type 2, controlled E11.9 Ac tive 55481241 Problem Diabetes E11.9 Active 91637339 Problem Hypertriglyceridemia E78.1 Active 503815952 Problem Panlobular emphysema J43.1 Active 6893034 Problem Gastroesophageal reflux disease with esophagitis K 21.0 Active 742010870 Problem PTSD (post-traumatic stress disorder) F43.10 Active 48915581 Problem Hypertensive heart disease with heart failure I11. 0 Active 62914358 Problem Other chronic pain G89.29 Active 8 6658051 Problem Hypoglycemia E16.2 Active 0750239 03 Problem COPD exacerbation J44.1 Active 19 5925838 Problem PVD (peripheral vascular disease) I73.9 Active 762776035 Problem Uncontrolled type 2 diabetes mellitus with hyperglycemia E11.65 Active 321113501 Problem Foot drop, right M21.371 Active 308 [id number] Problem Afib I48.91 Active 56221448 ALLERGIES No Information ENCOUNTERS Encounter Location Date Diagnosis [facility] [address] [facility] [id number] [address] [place] [address] May, [facility] [address] [facility] [id number] [address] [place] [phone] May, [facility] [address] [facility] [id number] [address] [place] [address] Apr, [facility] [address] [facility] [id number] [address] [place] [address] Mar, Other chronic pain G89.29 [facility] [address] [facility] [id number] [address] [place] [address] Mar, PTSD (post-traumatic stress disorder) F43.10 [facility] [address] [id number] [address] [place] [address] 15 Mar, 2019 Encounter for Medicare annua l wellness exam Z00.00 [facility] [address] [id number] [address] [place] [address] Mar, Encounter for Medicare annua l wellness exam Z00.00 ; Uncontrolled type 2 diabetes mellitus with hyperglycemia E11.65 ; Hypertensive heart disease with heart failure I11.0 ; PVD (peripheral vascular disease) I73.9 ; Panlobular emphysema J43.1 ; Gastroesophageal reflux disease with esophagitis K21.0 ; Afib I48.91 and Hypertriglyceridemia E78.1 [facility] [address] [id number] [address] [place] [address] Mar, PTSD (post-traumatic stress disorder) F43.10 [facility] [address] [id number] [address] [place] [address] Feb, [facility] [address] [id number] [address] [place] [address] Feb, PTSD (post-traumatic stress disorder) F43.10 [facility] [address] [id number] [address] [place] [address] Feb, Hypoglycemia E16.2 [facility] [address] [id number] [address] [place] [phone] Feb, [facility] [address] [id number] [address] [place] [address] Feb, Hypoglycemia E16.2 [facility] [address] [id number] [address] [place] [address] Feb, [facility] [address] [id number] [address] [place] [phone] Feb, [facility] [address] [id number] [address] [place] [address] Feb, [facility] [address] [id number] [address] [place] [address] Feb, [facility] [address] [facility] [id number] [address] [place] [address] Feb, Hypertensive heart disease w ith heart failure I11.0 [facility] [address] [facility] [id number] [address] [place] [address] Jan, SOB (shortness of breath) on exertion R06.02 [facility] [address] [facility] [id number] [address] [place] [address] December, SOB (shortness of breath) on exertion R06.02 [facility] [address] [facility] [id number] [address] [place] [address] December, [facility] [address] [place] [id number] [address] [place] [phone] December, [facility] [address] [place] [id number] [address] [place] [phone] December, [facility] [address] [place] [id number] [address] [place] [address] December, [facility] [address] [place] [id number] [place] [address] December, PTSD (post-traumatic stress disorder) F43.10 [facility] [address] [place] [id number] [address] [place] [address] Nov, Diabetes type 2, controlled E11.9 ; Hypertriglyceridemia E78.1 ; COPD exacerbation J44.1 ; PTSD (post-traumatic stress disorder) F43.10 ; Other chronic pain G89.29 ; Gastroesophageal reflux disease with esophagitis K21.0 ; PVD (peripheral vascular disease) I73.9 and Hypertensive heart disease with heart failure I11.0 [facility] [address] [facility] [id number] [address] [place] [address] Oct, PTSD (post-traumatic stress disorder) F43.10 [facility] [address] [place] [id number] [address] [place] [address] Sep, Diabetes type 2, controlled E11.9 and PTSD (post-traumatic stress disorder) F43.10 [place] [address] [facility] [id number] [address] [place] [address] Sep, [place] [address] [facility] [id number] [address] [place] [address] Sep, PTSD (post-traumatic stress disorder) F43.10 [place] [address] [facility] [id number] [address] [place] [address] Sep, [place] [address] [facility] [id number] [address] [place] [address] Aug, COPD exacerbation J44.1 ; Di fficulty breathing R06.89 ; History of GI bleed Z87.19 ; PVD (peripheral vascular disease) I73.9 and Uncontrolled type 2 diabetes mellitus with hyperglycemia E11.65 [place] [address] [facility] [id number] [address] [place] [address] Aug, [place] [address] [facility] [id number] [address] [place] [address] Aug, PTSD (post-traumatic stress disorder) F43.10 and Type 2 diabetes mellitus without complication, without long-term current use of insulin E11.9 [facility] [address] [place] [id number] Aug, History of GI bleed Z87.19 ; COPD exacer bation J44.1 and PVD (peripheral vascular disease) I73.9 [place] [address] [id number] [address] [place] [address] Aug, [facility] [address] [place] [id number] Aug, Diabetes E11.9 ; Other chronic pain G89. 29 and Panlobular emphysema J43.1 [place] [address] [facility] [id number] [address] [place] [phone] Jul, [place] [address] [facility] [id number] [address] [place] [address] Jun, PTSD (post-traumatic stress disorder) F43.10 [facility] [address] [place] [id number] [place] [address] Jun, [facility] [address] [place] [id number] [address] [place] [address] Jun, PTSD (post-traumatic stress disorder) F43.10 [facility] [address] [place] [id number] [place] [address] Jun, [facility] [address] [place] [id number] [place] [address] Jun, [facility] [address] [address] Jun, Uncontrolled type 2 diabetes mellitus without complication, without long-term current use of insulin E11.65 [facility] [address] [phone] 07 Jun, 2018 PTSD (post-traumatic stress disorder) F43.10 ; Low back pain M54.5 ; Other chronic pain G89.29 ; Gastroesophageal reflux disease with esophagitis K21.0 and Panlobular emphysema J43.1 [facility] [address] [address] Jun, [facility] [address] [address] Jun, Other chest pain R07.89 ; Ta chycardia R00.0 and Murmur, cardiac R01.1 [facility] [address] [facility] [id number] [address] [place] [address] May, Other chest pain R07.89 ; Ta chycardia R00.0 and Murmur, cardiac R01.1 [facility] [address] [facility] [id number] [address] [place] [address] May, [facility] [address] [place] [id number] [address] [place] [address] May, Uncontrolled type 2 diabetes mellitus with hyperglycemia E11.65 and Oral candidiasis B37.0 [facility] [address] [facility] [id number] [address] [place] [address] May, COPD exacerbation J44.1 [facility] [address] [facility] [id number] [address] [place] [address] May, COPD exacerbation J44.1 [facility] [address] [facility] [id number] [address] [place] [address] May, COPD exacerbation J44.1 and Type 2 diabetes mellitus without complication, without long-term current use of insulin E11.9 [facility] [address] [facility] [id number] [address] [place] [address] May, Difficulty breathing R06.89 and Acute bronchitis, unspecified organism J20.9 [facility] [address] [facility] [id number] [address] [place] [address] Apr, Uncontrolled type 2 diabetes mellitus without complication, without long-term current use of insulin E11.65 [facility] [address] [facility] [id number] [address] [place] [phone] Feb, [facility] [address] [facility] [id number] [address] [place] [phone] Feb, [facility] [address] [facility] [id number] [address] [place] [address] Feb, [facility] [address] [facility] [id number] [address] [place] [address] Jan, [facility] [address] [facility] [id number] [address] [place] [address] Oct, [facility] [address] [facility] [id number] [address] [place] [address] Jul, Diabetes type 2, controlled E11.9 [facility] [address] [facility] [id number] [address] [place] [phone] Jun, [facility] [address] [place] [id number] [address] [place] [phone] May, [facility] [address] [facility] [id number] [address] [place] [address] May, Diabetes type 2, controlled E11.9 and Hypertriglyceridemia E78.1 [facility] [address] [place] [id number] [place] [address] May, [facility] [address] [place] [id number] [place] [address] Apr, Hypertriglyceridemia 272.1 ; Influenza vaccine administered V04.81 and Diabetes 250.00 [facility] [address] [place] [id number] [place] [address] Mar, DM type 2 (diabetes mellitus , type 2) 250.00 ; Essential hypertension, benign 401.1 and Mood disorder 296.90 [facility] [address] [place] [id number] [address] [place] [address] Jan, [facility] [address] [facility] [id number] [address] [place] [address] Nov, [facility] [address] [address] Nov, [facility] [address] [facility] [id number] [address] [place] [address] Sep, [facility] [address] [facility] [id number] [address] [place] [phone] Sep, [facility] [address] [facility] [id number] [address] [place] [phone] Sep, [facility] [address] [place] [id number] [address] [place] [phone] Sep, [facility] [address] [facility] [id number] [address] [place] [address] May, [facility] [address] [place] [id number] [address] [place] [phone] May, [facility] [address] [id number] [facility] [place] [address] Apr, [facility] [address] [id number] [address] [place] [address], [place] [address] Apr, [facility] [address] [id number] [address] [place] [address], [place] [address] Mar, [facility] [address] [id number] [address] [place] [address], [place] [address] Mar, [facility] [address] [id number] [address] [place] [address], [place] [address] Mar, [facility] [address] [id number] [address] [place] [address], [place] [address] Mar, [facility] [address] [id number] [address] [place] [address], [place] [address] Jan, [facility] [address] [id number] [address] [place] [address], [place] [address] Jan, [facility] [address] [id number] [address] [place] [address], [place] [address] Jan, [facility] [address] [id number] [address] [place] [address], [place] [address] Jan, [facility] [address] [id number] [address] [place] [address], [place] [address] Jan, [facility] [address] [id number] [address] [place] [address], [place] [address] Jan, [facility] [address] [id number] [address] [place] [address], [place] [address] Oct, [facility] [address] [id number] [address] [place] [address], [place] [address] Oct, [facility] [address] [id number] [address] [place] [address], [place] [address] Sep, [facility] [address] [id number] [address] [place] [address], [place] [address] Sep, [facility] [address] [id number] [address] [place] [address], [place] [address] Jun, [facility] [address] [id number] [address] [place] [address], [place] [address] Jun, [facility] [address] [id number] [address] [place] [address], [place] [address] Mar, [facility] [address] [id number] [address] [place] [address], [place] [address] Feb, [facility] [address] [id number] [address] [place] [address], [place] [address] Feb, [facility] [address] [id number] [address] [place] [address], [place] [address] Nov, [facility] [address] [id number] [address] [place] [address], [place] [address] Aug, [facility] [address] [id number] [address] [place] [address], [place] [address] Aug, [facility] [address] [id number] [address] [place] [address], [place] [address] Jul, [facility] [address] [id number] [address] [place] [address], [place] [address] Jul, [facility] [address] [id number] [address] [place] [address], [place] [address] May, [facility] [address] [id number] [address] [place] [address], [place] [address] May, [facility] [address] [id number] [address] [place] [address], [place] [address] May, [facility] [address] [id number] [address] [place] [address], [place] [address] May, [facility] [address] [id number] [address] [place] [address], [place] [address] Apr, [facility] [address] [id number] [address] [place] [phone] Feb, [facility] [address] [id number] [address] [place] [address] Feb, [facility] [address] [id number] [address] [place] [address] Jan, [facility] [address] [id number] [address] [place] [address] Jan, [facility] [address] [id number] [address] [place] [address] Nov, [facility] [address] [id number] [address] [place] [address] Oct, [facility] [address] [id number] [address] [place] [address] Oct, [facility] [address] [id number] [address] [place] [address] Jul, [facility] [address] [id number] [address] [place] [address] May, [facility] [address] [id number] [address] [place] [address] Nov, [facility] [address] [id number] [address] [place] [address] Jun, [facility] [address] [id number] [address] [place] [address] December, [facility] [address] [id number] [address] [place] [address] Jul, IMMUNIZATIONS No Known Immunizations SOCIAL HISTORY [...]
--- OUTSIDE RECORDS SUMMARY | 2019-11-07 14:19 | XMS REPORT ---
Author Author Salomon STAHL Organization [facility] Address [address] [place] [address] Care Team Providers Care Golf Course Manager Name Role Phone RONDA STAHL Unavailable PROBLEMS Type Condition ICD9-CM Code HWA66-BD Code Onset Dates Condition S tatus SNOMED Code Problem Diabetes type 2, controlled E11.9 Ac tive 51767513 Problem Diabetes E11.9 Active 48675848 Problem Hypertriglyceridemia E78.1 Active 559081307 Problem Panlobular emphysema J43.1 Active 7175280 Problem Gastroesophageal reflux disease with esophagitis K 21.0 Active 074616361 Problem PTSD (post-traumatic stress disorder) F43.10 Active 81266357 Problem Hypertensive heart disease with heart failure I11. 0 Active 23900061 Problem Other chronic pain G89.29 Active 8 2819749 Problem Hypoglycemia E16.2 Active 0862631 03 Problem COPD exacerbation J44.1 Active 19 7927560 Problem PVD (peripheral vascular disease) I73.9 Active 810181931 Problem Uncontrolled type 2 diabetes mellitus with hyperglycemia E11.65 Active 526913977 Problem Foot drop, right M21.371 Active 308 [id number] Problem Afib I48.91 Active 39538004 ALLERGIES No Information ENCOUNTERS Encounter Location Date Diagnosis [facility] [address] [facility] [id number] [address] [place] [address] Mar, [facility] [address] [facility] [id number] [address] [place] [address] Mar, [facility] [address] [facility] [id number] [address] [place] [address] Feb, PTSD (post-traumatic stress disorder) F43.10 [facility] [address] [facility] [id number] [address] [place] [address] Feb, Hypoglycemia E16.2 [facility] [address] [id number] [address] [place] [address] Feb, [facility] [address] [id number] [address] [place] [address] Feb, Hypoglycemia E16.2 [facility] [address] [id number] [address] [place] [address] Feb, [facility] [address] [id number] [address] [place] [address] Feb, [facility] [address] [id number] [address] [place] [address] Feb, [facility] [address] [id number] [address] [place] [address] Feb, [facility] [address] [id number] [address] [place] [address] Feb, Hypertensive heart disease w ith heart failure I11.0 [facility] [address] [id number] [address] [place] [address] Jan, SOB (shortness of breath) on exertion R06.02 [facility] [address] [id number] [address] [place] [address] December, SOB (shortness of breath) on exertion R06.02 [facility] [address] [id number] [address] [place] [address] December, [facility] [address] [id number] [address] [place] [address] December, [facility] [address] [id number] [address] [place] [address] December, [facility] [address] [id number] [address] [place] [address] December, [facility] [address] [facility] [id number] [address] [place] [address] December, PTSD (post-traumatic stress disorder) F43.10 [facility] [id number] [place] [address] Nov, Diabetes type 2, controlled E11.9 ; Hypertriglyceridemia E78.1 ; COPD exacerbation J44.1 ; PTSD (post-traumatic stress disorder) F43.10 ; Other chronic pain G89.29 ; Gastroesophageal reflux disease with esophagitis K21.0 ; PVD (peripheral vascular disease) I73.9 and Hypertensive heart disease with heart failure I11.0 [place] [address] [address] Oct, PTSD (post-traumatic stress disorder) F43.10 [place] [address] [address] Sep, Diabetes type 2, controlled E11.9 and PTSD (post-traumatic stress disorder) F43.10 [place] [address] [address] Sep, [place] [address] [address] Sep, PTSD (post-traumatic stress disorder) F43.10 [place] [address] [id number] Sep, [place] [address] [address] Aug, COPD exacerbation J44.1 ; Di fficulty breathing R06.89 ; History of GI bleed Z87.19 ; PVD (peripheral vascular disease) I73.9 and Uncontrolled type 2 diabetes mellitus with hyperglycemia E11.65 [place] [address] [address] Aug, [address] [id number] Aug, PTSD (post-traumatic stress disorder) F43.10 and Type 2 diabetes mellitus without complication, without long-term current use of insulin E11.9 [facility] [address] [place] [id number] Aug, History of GI bleed Z87.19 ; COPD exacer bation J44.1 and PVD (peripheral vascular disease) I73.9 [place] [address] [address] Aug, [facility] [address] [place] [id number] Aug, Diabetes E11.9 ; Other chronic pain G89. 29 and Panlobular emphysema J43.1 [place] [address] [place] [id number] [address] [place] [address] Jul, [place] [address] [address] Jun, PTSD (post-traumatic stress disorder) F43.10 [place] [address] [place] [id number] [address] [place] [address] Jun, [place] [address] [address] Jun, PTSD (post-traumatic stress disorder) F43.10 [place] [address] [place] [id number] [address] [place] [address] Jun, [place] [address] [place] [id number] [address] [place] [address] Jun, [place] [address] [place] [id number] [address] [place] [address] 08 Jun, 2018 Uncontrolled type 2 diabetes mellitus without complication, without long-term current use of insulin E11.65 [place] [address] [place] [id number] [address] [place] [address] 07 Jun, 2018 PTSD (post-traumatic stress disorder) F43.10 ; Low back pain M54.5 ; Other chronic pain G89.29 ; Gastroesophageal reflux disease with esophagitis K21.0 and Panlobular emphysema J43.1 [place] [address] [place] [id number] [address] [place] [address] Jun, [facility] [address] [facility] [id number] [address] [place] [address] Jun, Other chest pain R07.89 ; Ta chycardia R00.0 and Murmur, cardiac R01.1 [facility] [address] [id number] [address] [place] [address] May, Other chest pain R07.89 ; Ta chycardia R00.0 and Murmur, cardiac R01.1 [facility] [address] [facility] [id number] [address] [place] [address] May, [place] [address] [facility] [id number] [place] [address] May, Uncontrolled type 2 diabetes mellitus with hyperglycemia E11.65 and Oral candidiasis B37.0 [place] [address] [facility] [id number] [address] [place] [address] May, COPD exacerbation J44.1 [facility] [address] [facility] [id number] [address] [place] [address] May, COPD exacerbation J44.1 [facility] [address] [facility] [id number] [address] [place] [address] May, COPD exacerbation J44.1 and Type 2 diabetes mellitus without complication, without long-term current use of insulin E11.9 [facility] [address] [facility] [id number] [address] [place] [address] May, Difficulty breathing R06.89 and Acute bronchitis, unspecified organism J20.9 [facility] [address] [facility] [id number] [address] [place] [address] Apr, Uncontrolled type 2 diabetes mellitus without complication, without long-term current use of insulin E11.65 [facility] [address] [facility] [id number] [address] [place] [address] Feb, [facility] [address] [facility] [id number] [address] [place] [address] Feb, [place] [address] [id number] [address] [place] [address] Feb, [facility] [address] [facility] [id number] [address] [place] [address] Jan, [facility] [address] [id number] [address] [place] [address] Oct, [facility] [address] [facility] [id number] [address] [place] [address] Jul, Diabetes type 2, controlled E11.9 [facility] [address] [id number] [address] [place] [address] Jun, [facility] [address] [facility] [id number] [address] [place] [phone] May, [facility] [address] [facility] [id number] [address] [place] [address] May, Diabetes type 2, controlled E11.9 and Hypertriglyceridemia E78.1 [facility] [address] [facility] [id number] [address] [place] [address] May, [facility] [address] [facility] [id number] [address] [place] [address] Apr, Hypertriglyceridemia 272.1 ; Influenza vaccine administered V04.81 and Diabetes 250.00 [facility] [address] [facility] [id number] [address] [place] [address] Mar, DM type 2 (diabetes mellitus , type 2) 250.00 ; Essential hypertension, benign 401.1 and Mood disorder 296.90 [facility] [address] [facility] [id number] [address] [place] [address] Jan, [facility] [address] [facility] [id number] [address] [place] [address] Nov, [facility] [address] [facility] [id number] [address] [place] [address] Nov, [facility] [address] [facility] [id number] [address] [place] [address] Sep, 2014 [facility] [address] [id number] [address] [place] [address], [place] [address] Sep, 2014 [facility] [address] [id number] [address] [place] [address], [place] [address] Sep, 2014 [facility] [address] [id number] [address] [place] [address], [place] [address] Sep, [facility] [address] [id number] [address] [place] [address], [place] [address] May, [facility] [address] [id number] [address] [place] [address], [place] [address] May, [facility] [address] [id number] [address] [place] [address], [place] [address] Apr, [facility] [address] [id number] [address] [place] [address], [place] [address] Apr, [facility] [address] [id number] [address] [place] [address], [place] [address] Mar, [facility] [address] [id number] [address] [place] [address], [place] [address] Mar, [facility] [address] [id number] [address] [place] [address], [place] [address] Mar, [facility] [address] [id number] [address] [place] [address], [place] [address] Mar, [facility] [address] [id number] [address] [place] [address], [place] [address] Jan, [facility] [address] [id number] [address] [place] [address], [place] [address] Jan, [facility] [address] [id number] [address] [place] [address], [place] [address] Jan, [facility] [address] [id number] [address] [place] [address], [place] [address] Jan, [facility] [address] [id number] [address] [place] [address], [place] [address] Jan, [facility] [address] [id number] [address] [place] [address], [place] [address] Jan, [facility] [address] [id number] [address] [place] [address], [place] [address] Oct, [facility] [address] [id number] [address] [place] [address], [place] [address] Oct, [facility] [address] [id number] [address] [place] [address], [place] [address] Sep, [facility] [address] [id number] [address] [place] [address], [place] [address] Sep, [facility] [address] [id number] [address] [place] [address], [place] [address] Jun, [facility] [address] [id number] [address] [place] [address], [place] [address] Jun, [facility] [address] [id number] [address] [place] [address], [place] [address] Mar, [facility] [address] [id number] [address] [place] [address], [place] [address] Feb, [facility] [address] [id number] [address] [place] [address], [place] [address] Feb, [facility] [address] [id number] [address] [place] [address], [place] [address] Nov, [facility] [address] [id number] [address] [place] [address], [place] [address] Aug, [facility] [address] [id number] [address] [place] [address], [place] [address] Aug, [facility] [address] [id number] [address] [place] [address], [place] [address] Jul, [facility] [address] [id number] [address] [place] [address], [place] [address] Jul, [facility] [address] [id number] [address] [place] [address], [place] [address] May, [facility] [address] [id number] [address] [place] [address], [place] [address] May, [facility] [address] [id number] [address] [place] [address], [place] [address] May, [facility] [address] [id number] [address] [place] [address], [place] [address] May, [facility] [address] [id number] [address] [place] [address], [place] [address] Apr, [facility] [address] [id number] [address] [place] [address], [place] [address] Feb, [facility] [address] [id number] [address] [place] [address], [place] [address] Feb, [facility] [address] [id number] [address] [place] [address], [place] [address] Jan, [facility] [address] [id number] [address] [place] [address], [place] [address] Jan, [facility] [address] [id number] [address] [place] [address], [place] [address] Nov, [facility] [address] [id number] [address] [place] [address], [place] [address] Oct, [facility] [address] [id number] [address] [place] [address], [place] [address] Oct, [facility] [address] [id number] [address] [place] [address], [place] [address] Jul, [facility] [address] [id number] [address] [place] [address], [place] [address] May, [facility] [address] [id number] [address] [place] [address], [place] [address] Nov, [facility] [address] [id number] [address] [place] [address] Jun, [facility] [address] [facility] [id number] [address] [place] [address] December, [facility] [address] [facility] [id number] [address] [place] [address] Jul, IMMUNIZATIONS No Known Immunizations SOCIAL HISTORY [...]
--- OUTSIDE RECORDS SUMMARY | 2019-11-07 14:19 | XMS REPORT ---
Author Author Salomon STAHL Organization [facility] Address [address] [place] [address] Care Team Providers Care Human Resources Psychologist Name Role Phone RONDA STAHL Unavailable PROBLEMS Type Condition ICD9-CM Code [id number] Code Onset Dates Condition S tatus SNOMED Code Problem Diabetes type 2, controlled E11.9 Ac tive 10638690 Problem Diabetes E11.9 Active 49319914 Problem Hypertriglyceridemia E78.1 Active 056769243 Problem Panlobular emphysema J43.1 Active 4508947 Problem Gastroesophageal reflux disease with esophagitis K 21.0 Active 836780860 Problem PTSD (post-traumatic stress disorder) F43.10 Active 67503930 Problem Hypertensive heart disease with heart failure I11. 0 Active 56112961 Problem Other chronic pain G89.29 Active 8 3222591 Problem Hypoglycemia E16.2 Active 4686871 03 Problem COPD exacerbation J44.1 Active 19 2442817 Problem PVD (peripheral vascular disease) I73.9 Active 262725793 Problem Uncontrolled type 2 diabetes mellitus with hyperglycemia E11.65 Active 611113613 Problem Foot drop, right M21.371 Active 308 [id number] Problem Afib I48.91 Active 41158805 ALLERGIES No Information ENCOUNTERS Encounter Location Date Diagnosis [place] [id number] [place] [id number] [address] [place] [phone] Mar, [facility] [address] [facility] [id number] [address] [place] [phone] 08 Mar, 2019 Encounter for Medicare annua l wellness exam Z00.00 ; Uncontrolled type 2 diabetes mellitus with hyperglycemia E11.65 ; Hypertensive heart disease with heart failure I11.0 ; PVD (peripheral vascular disease) I73.9 ; Panlobular emphysema J43.1 ; Gastroesophageal reflux disease with esophagitis K21.0 ; Afib I48.91 and Hypertriglyceridemia E78.1 [facility] [address] [place] [id number] [address] [place] [address] Mar, PTSD (post-traumatic stress disorder) F43.10 [facility] [address] [id number] [address] [place] [phone] Feb, [facility] [address] [id number] [address] [place] [address] Feb, PTSD (post-traumatic stress disorder) F43.10 [facility] [address] [id number] [address] [place] [address] Feb, Hypoglycemia E16.2 [facility] [address] [id number] [address] [place] [address] Feb, [facility] [address] [id number] [address] [place] [address] Feb, Hypoglycemia E16.2 [facility] [address] [id number] [address] [place] [phone] Feb, [facility] [address] [id number] [address] [place] [address] Feb, [facility] [address] [id number] [address] [place] [address] Feb, [facility] [address] [id number] [address] [place] [address] Feb, [facility] [address] [id number] [address] [place] [address] Feb, Hypertensive heart disease w ith heart failure I11.0 [facility] [address] [id number] [address] [place] [address] Jan, SOB (shortness of breath) on exertion R06.02 [facility] [address] [id number] [address] [place] [phone] December, SOB (shortness of breath) on exertion R06.02 [facility] [address] [id number] [address] [place] [phone] December, [facility] [address] [facility] [id number] [address] [place] [phone] December, [facility] [address] [facility] [id number] [address] [place] [address] December, [facility] [address] [facility] [id number] [address] [place] [phone] December, [facility] [address] [facility] [id number] [address] [place] [phone] December, PTSD (post-traumatic stress disorder) F43.10 [facility] [address] [facility] [id number] [address] [place] [address] Nov, Diabetes type 2, controlled E11.9 ; Hypertriglyceridemia E78.1 ; COPD exacerbation J44.1 ; PTSD (post-traumatic stress disorder) F43.10 ; Other chronic pain G89.29 ; Gastroesophageal reflux disease with esophagitis K21.0 ; PVD (peripheral vascular disease) I73.9 and Hypertensive heart disease with heart failure I11.0 [facility] [address] [facility] [id number] [address] [place] [phone] Oct, PTSD (post-traumatic stress disorder) F43.10 [facility] [address] [facility] [id number] [address] [place] [address] Sep, Diabetes type 2, controlled E11.9 and PTSD (post-traumatic stress disorder) F43.10 [facility] [address] [facility] [id number] [address] [place] [phone] Sep, [facility] [address] [facility] [id number] [address] [place] [phone] Sep, PTSD (post-traumatic stress disorder) F43.10 [facility] [address] [facility] [id number] [address] [place] [phone] Sep, [facility] [address] [facility] [id number] [address] [place] [address] Aug, COPD exacerbation J44.1 ; Di fficulty breathing R06.89 ; History of GI bleed Z87.19 ; PVD (peripheral vascular disease) I73.9 and Uncontrolled type 2 diabetes mellitus with hyperglycemia E11.65 [place] [address] [facility] [id number] [address] [place] [address] Aug, [place] [address] [facility] [id number] [address] [place] [address] Aug, PTSD (post-traumatic stress disorder) F43.10 and Type 2 diabetes mellitus without complication, without long-term current use of insulin E11.9 [facility] [address] [place] [id number] Aug, History of GI bleed Z87.19 ; COPD exacer bation J44.1 and PVD (peripheral vascular disease) I73.9 [place] [address] [facility] [id number] [address] [place] [phone] Aug, [facility] [address] [place] [id number] Aug, Diabetes E11.9 ; Other chronic pain G89. 29 and Panlobular emphysema J43.1 [place] [address] [facility] [id number] [address] [place] [phone] Jul, [place] [address] [facility] [id number] [address] [place] [address] Jun, PTSD (post-traumatic stress disorder) F43.10 [place] [address] [facility] [id number] [address] [place] [phone] 14 Jun, 2018 [place] [address] [facility] [id number] [address] [place] [address] Jun, PTSD (post-traumatic stress disorder) F43.10 [place] [address] [facility] [id number] [address] [place] [address] Jun, [place] [address] [facility] [id number] [address] [place] [address] Jun, [place] [address] [facility] [id number] [phone] Jun, Uncontrolled type 2 diabetes mellitus without complication, without long-term current use of insulin E11.65 [place] [address] [address] Jun, PTSD (post-traumatic stress disorder) F43.10 ; Low back pain M54.5 ; Other chronic pain G89.29 ; Gastroesophageal reflux disease with esophagitis K21.0 and Panlobular emphysema J43.1 [place] [address] [address] Jun, [place] [address] [address] Jun, Other chest pain R07.89 ; Ta chycardia R00.0 and Murmur, cardiac R01.1 [place] [address] [address] May, Other chest pain R07.89 ; Ta chycardia R00.0 and Murmur, cardiac R01.1 [facility] [place] [address] [address] May, [place] [address] [address] May, Uncontrolled type 2 diabetes mellitus with hyperglycemia E11.65 and Oral candidiasis B37.0 [place] [address] [address] May, COPD exacerbation J44.1 [place] [address] [place] [id number] [place] [address] May, COPD exacerbation J44.1 [facility] [place] [address] [place] [id number] [place] [address] May, COPD exacerbation J44.1 and Type 2 diabetes mellitus without complication, without long-term current use of insulin E11.9 [facility] [address] [place] [id number] [address] [place] [address] May, Difficulty breathing R06.89 and Acute bronchitis, unspecified organism J20.9 [facility] [address] [facility] [id number] [address] [place] [address] Apr, Uncontrolled type 2 diabetes mellitus without complication, without long-term current use of insulin E11.65 [facility] [address] [facility] [id number] [address] [place] [address] Feb, [facility] [address] [id number] [address] [place] [address] Feb, [facility] [address] [facility] [id number] [address] [place] [phone] Feb, [facility] [address] [facility] [id number] [address] [place] [phone] Jan, [facility] [address] [facility] [id number] [address] [place] [phone] Oct, [facility] [address] [facility] [id number] [address] [place] [address] Jul, Diabetes type 2, controlled E11.9 [facility] [address] [facility] [id number] [address] [place] [phone] Jun, [facility] [address] [facility] [id number] [address] [place] [address] May, [facility] [address] [facility] [id number] [address] [place] [phone] May, Diabetes type 2, controlled E11.9 and Hypertriglyceridemia E78.1 [facility] [address] [place] [id number] [address] [place] [address] May, [facility] [address] [facility] [id number] [address] [place] [address] Apr, Hypertriglyceridemia 272.1 ; Influenza vaccine administered V04.81 and Diabetes 250.00 [facility] [address] [id number] [address] [place] [address] Mar, DM type 2 (diabetes mellitus , type 2) 250.00 ; Essential hypertension, benign 401.1 and Mood disorder 296.90 [facility] [address] [id number] [address] [place] [address] Jan, [facility] [address] [id number] [address] [place] [phone] Nov, [facility] [address] [id number] [address] [place] [address] Nov, [facility] [address] [id number] [address] [place] [phone] Sep, [facility] [address] [id number] [address] [place] [phone] Sep, [facility] [address] [id number] [address] [place] [address] Sep, [facility] [address] [id number] [address] [place] [phone] Sep, [facility] [address] [id number] [address] [place] [address] May, [facility] [address] [id number] [address] [place] [phone] May, [facility] [address] [id number] [address] [place] [phone] Apr, [facility] [address] [id number] [address] [place] [phone] Apr, [facility] [address] [id number] [address] [place] [address] Mar, [facility] [address] [id number] [address] [place] [phone] Mar, [facility] [address] [id number] [address] [place] [phone] Mar, [facility] [address] [id number] [facility] [place] [address] Mar, [facility] [address] [id number] [address] [place] [address], [place] [address] Jan, [facility] [address] [id number] [address] [place] [address], [place] [address] Jan, [facility] [address] [id number] [address] [place] [address], [place] [address] Jan, [facility] [address] [id number] [address] [place] [address], [place] [address] Jan, [facility] [address] [id number] [address] [place] [address], [place] [address] Jan, [facility] [address] [id number] [address] [place] [address], [place] [address] Jan, [facility] [address] [id number] [address] [place] [address], [place] [address] Oct, [facility] [address] [id number] [address] [place] [address], [place] [address] Oct, [facility] [address] [id number] [address] [place] [address], [place] [address] Sep, [facility] [address] [id number] [address] [place] [address], [place] [address] Sep, [facility] [address] [id number] [address] [place] [address], [place] [address] Jun, [facility] [address] [id number] [address] [place] [address], [place] [address] Jun, [facility] [address] [id number] [address] [place] [address], [place] [address] Mar, [facility] [address] [id number] [address] [place] [address], [place] [address] Feb, [facility] [address] [id number] [address] [place] [address], [place] [address] Feb, [facility] [address] [id number] [address] [place] [address], [place] [address] Nov, [facility] [address] [id number] [address] [place] [address], [place] [address] Aug, [facility] [address] [id number] [address] [place] [address], [place] [address] Aug, [facility] [address] [id number] [address] [place] [address], [place] [address] Jul, [facility] [address] [id number] [address] [place] [address], [place] [address] Jul, [facility] [address] [id number] [address] [place] [address], [place] [address] May, [facility] [address] [id number] [address] [place] [address], [place] [address] May, [facility] [address] [id number] [address] [place] [address], [place] [address] May, [facility] [address] [id number] [address] [place] [address], [place] [address] May, [facility] [address] [id number] [address] [place] [address], [place] [address] Apr, [facility] [address] [id number] [address] [place] [address], [place] [address] Feb, [facility] [address] [id number] [address] [place] [address], [place] [address] Feb, [facility] [address] [id number] [address] [place] [address], [place] [address] Jan, [facility] [address] [id number] [address] [place] [address], [place] [address] Jan, [facility] [address] [id number] [address] [place] [address], [place] [address] Nov, [facility] [address] [id number] [address] [place] [address] Oct, [facility] [address] [id number] [address] [place] [phone] Oct, [facility] [address] [id number] [address] [place] [address] Jul, [facility] [address] [id number] [address] [place] [address] May, [facility] [address] [id number] [address] [place] [address] Nov, [facility] [address] [facility] [id number] [address] [place] [address] Jun, [facility] [address] [facility] [id number] [address] [place] [address] December, [facility] [address] [facility] [id number] [address] [place] [address] Jul, IMMUNIZATIONS No Known Immunizations SOCIAL HISTORY [...]
--- OUTSIDE RECORDS SUMMARY | 2019-11-07 14:19 | XMS REPORT ---
Author Author Salomon LINDA Organization [facility] Address [address] [place] [address] Care Team Providers Care [employer] Professor Name Role Phone RAMONEREN ASCENCIOYLA Unavailable PROBLEMS Type Condition ICD9-CM Code RBF43-II Code Onset Dates Condition S tatus SNOMED Code Problem Diabetes type 2, controlled E11.9 Ac tive 85171871 Problem Diabetes E11.9 Active 48730530 Problem Hypertriglyceridemia E78.1 Active 244620250 Problem Panlobular emphysema J43.1 Active 5706982 Problem Gastroesophageal reflux disease with esophagitis K 21.0 Active 130728397 Problem PTSD (post-traumatic stress disorder) F43.10 Active 22237732 Problem Hypertensive heart disease with heart failure I11. 0 Active 95075745 Problem Other chronic pain G89.29 Active 8 3504449 Problem Hypoglycemia E16.2 Active 7698697 03 Problem COPD exacerbation J44.1 Active 19 2875835 Problem PVD (peripheral vascular disease) I73.9 Active 208670813 Problem Uncontrolled type 2 diabetes mellitus with hyperglycemia E11.65 Active 826393668 Problem Foot drop, right M21.371 Active 308 [id number] Problem Afib I48.91 Active 93010703 ALLERGIES No Information ENCOUNTERS Encounter Location Date Diagnosis [facility] [address] [facility] [id number] [address] [place] [address] Mar, [facility] [address] [facility] [id number] [address] [place] [address] Mar, [facility] [address] [facility] [id number] [address] [place] [address] Mar, [facility] [address] [facility] [id number] [address] [place] [address] Feb, [facility] [address] [facility] [id number] [address] [place] [address] Feb, PTSD (post-traumatic stress disorder) F43.10 [facility] [address] [id number] [address] [place] [address] Feb, Hypoglycemia E16.2 [facility] [address] [id number] [address] [place] [address] Feb, [facility] [address] [id number] [address] [place] [address] Feb, Hypoglycemia E16.2 [facility] [address] [id number] [address] [place] [address] Feb, [facility] [address] [id number] [address] [place] [address] Feb, [facility] [address] [id number] [address] [place] [address] Feb, [facility] [address] [id number] [address] [place] [address] Feb, [facility] [address] [id number] [address] [place] [address] Feb, Hypertensive heart disease w ith heart failure I11.0 [facility] [address] [id number] [address] [place] [address] Jan, SOB (shortness of breath) on exertion R06.02 [facility] [address] [id number] [address] [place] [address] December, SOB (shortness of breath) on exertion R06.02 [facility] [address] [id number] [address] [place] [address] December, [facility] [address] [id number] [address] [place] [address] December, [facility] [address] [id number] [address] [place] [address] December, [facility] [address] [address] December, [place] [address] [address] December, PTSD (post-traumatic stress disorder) F43.10 [place] [address] [address] Nov, Diabetes type 2, controlled E11.9 ; Hypertriglyceridemia E78.1 ; COPD exacerbation J44.1 ; PTSD (post-traumatic stress disorder) F43.10 ; Other chronic pain G89.29 ; Gastroesophageal reflux disease with esophagitis K21.0 ; PVD (peripheral vascular disease) I73.9 and Hypertensive heart disease with heart failure I11.0 [place] [address] [phone] Oct, PTSD (post-traumatic stress disorder) F43.10 [place] [address] [address] Sep, Diabetes type 2, controlled E11.9 and PTSD (post-traumatic stress disorder) F43.10 [place] [address] [address] Sep, [place] [address] [address] Sep, PTSD (post-traumatic stress disorder) F43.10 [place] [address] [address] Sep, [place] [address] [address] Aug, COPD exacerbation J44.1 ; Di fficulty breathing R06.89 ; History of GI bleed Z87.19 ; PVD (peripheral vascular disease) I73.9 and Uncontrolled type 2 diabetes mellitus with hyperglycemia E11.65 [place] [address] [address] Aug, [place] [address] [place] [id number] [address] [place] [address] Aug, PTSD (post-traumatic stress disorder) F43.10 and Type 2 diabetes mellitus without complication, without long-term current use of insulin E11.9 [employer] [address] [place] [phone] Aug, History of GI bleed Z87.19 ; COPD exacer bation J44.1 and PVD (peripheral vascular disease) I73.9 [place] [address] [id number] [address] [place] [phone] 08 Aug, 2018 [facility] [employer] [address] [place] [id number] Aug, Diabetes E11.9 ; Other chronic pain G89. 29 and Panlobular emphysema J43.1 [place] [address] [id number] [address] [place] [address] Jul, [place] [address] [id number] [address] [place] [address] Jun, PTSD (post-traumatic stress disorder) F43.10 [place] [address] [id number] [address] [place] [address] 14 Jun, 2018 [place] [address] [id number] [address] [place] [address] Jun, PTSD (post-traumatic stress disorder) F43.10 [place] [address] [id number] [address] [place] [address] Jun, [place] [address] [id number] [address] [place] [address] Jun, [place] [address] [id number] [address] [place] [address] Jun, Uncontrolled type 2 diabetes mellitus without complication, without long-term current use of insulin E11.65 [place] [address] [id number] [address] [place] [address] 07 Jun, 2018 PTSD (post-traumatic stress disorder) F43.10 ; Low back pain M54.5 ; Other chronic pain G89.29 ; Gastroesophageal reflux disease with esophagitis K21.0 and Panlobular emphysema J43.1 [place] [address] [place] [id number] [place] [address] Jun, [place] [address] [place] [id number] [place] [address] Jun, Other chest pain R07.89 ; Ta chycardia R00.0 and Murmur, cardiac R01.1 [place] [address] [place] [id number] [place] [address] May, Other chest pain R07.89 ; Ta chycardia R00.0 and Murmur, cardiac R01.1 [facility] [place] [address] [place] [id number] [place] [address] May, [place] [address] [place] [id number] [place] [address] May, Uncontrolled type 2 diabetes mellitus with hyperglycemia E11.65 and Oral candidiasis B37.[address] [address] May, COPD exacerbation J44.1 [place] [address] [place] [id number] [address] [place] [address] May, COPD exacerbation J44.1 [facility] [place] [address] [place] [id number] [place] [address] May, COPD exacerbation J44.1 and Type 2 diabetes mellitus without complication, without long-term current use of insulin E11.9 [facility] [place] [address] [place] [id number] [address] [place] [address] May, Difficulty breathing R06.89 and Acute bronchitis, unspecified organism J20.9 [place] [address] [place] [id number] [address] [place] [address] Apr, Uncontrolled type 2 diabetes mellitus without complication, without long-term current use of insulin E11.65 [facility] [address] [id number] [address] [place] [phone] Feb, [facility] [address] [id number] [address] [place] [address] Feb, [facility] [address] [facility] [id number] [address] [place] [phone] Feb, [facility] [address] [facility] [id number] [address] [place] [address] Jan, [facility] [address] [facility] [id number] [address] [place] [address] Oct, [facility] [address] [facility] [id number] [address] [place] [phone] Jul, Diabetes type 2, controlled E11.9 [facility] [address] [facility] [id number] [address] [place] [address] Jun, [facility] [address] [facility] [id number] [address] [place] [phone] May, [facility] [address] [facility] [id number] [address] [place] [address] May, Diabetes type 2, controlled E11.9 and Hypertriglyceridemia E78.1 [facility] [address] [facility] [id number] [address] [place] [address] May, [facility] [address] [facility] [id number] [address] [place] [address] Apr, Hypertriglyceridemia 272.1 ; Influenza vaccine administered V04.81 and Diabetes 250.00 [facility] [address] [facility] [id number] [address] [place] [address] Mar, DM type 2 (diabetes mellitus , type 2) 250.00 ; Essential hypertension, benign 401.1 and Mood disorder 296.90 [facility] [address] [facility] [id number] [address] [place] [address] Jan, [facility] [address] [id number] [address] [place] [address], [place] [address] 14 Nov, 2014 [facility] [address] [id number] [address] [place] [address], [place] [address] 13 Nov, 2014 [facility] [address] [id number] [address] [place] [address], [place] [address] 16 Sep, 2014 [facility] [address] [id number] [address] [place] [address], [place] [address] 16 Sep, 2014 [facility] [address] [id number] [address] [place] [address], [place] [address] 16 Sep, 2014 [facility] [address] [id number] [address] [place] [address], [place] [address] Sep, 2014 [facility] [address] [id number] [address] [place] [address], [place] [address] May, [facility] [address] [id number] [address] [place] [address], [place] [address] May, [facility] [address] [id number] [address] [place] [address], [place] [address] Apr, [facility] [address] [id number] [address] [place] [address], [place] [address] Apr, [facility] [address] [id number] [address] [place] [address], [place] [address] Mar, [facility] [address] [id number] [address] [place] [address], [place] [address] Mar, [facility] [address] [id number] [address] [place] [address], [place] [address] Mar, [facility] [address] [id number] [address] [place] [address], [place] [address] Mar, [facility] [address] [id number] [address] [place] [address], [place] [address] Jan, [facility] [address] [id number] [address] [place] [address], [place] [address] Jan, [facility] [address] [id number] [facility] [place] [address] Jan, [facility] [address] [id number] [address] [place] [address], [place] [address] Jan, [facility] [address] [id number] [address] [place] [address], [place] [address] Jan, [facility] [address] [id number] [address] [place] [address], [place] [address] Jan, [facility] [address] [id number] [address] [place] [address], [place] [address] Oct, [facility] [address] [id number] [address] [place] [address], [place] [address] Oct, [facility] [address] [id number] [address] [place] [address], [place] [address] Sep, [facility] [address] [id number] [address] [place] [address], [place] [address] Sep, [facility] [address] [id number] [address] [place] [address], [place] [address] Jun, [facility] [address] [id number] [address] [place] [address], [place] [address] Jun, [facility] [address] [id number] [address] [place] [address], [place] [address] Mar, [facility] [address] [id number] [address] [place] [address], [place] [address] Feb, [facility] [address] [id number] [address] [place] [address], [place] [address] Feb, [facility] [address] [id number] [address] [place] [address], [place] [address] Nov, [facility] [address] [id number] [address] [place] [address], [place] [address] Aug, [facility] [address] [id number] [address] [place] [address], [place] [address] Aug, [facility] [address] [id number] [address] [place] [address], [place] [address] Jul, [facility] [address] [id number] [address] [place] [address], [place] [address] Jul, [facility] [address] [id number] [address] [place] [address], [place] [address] May, [facility] [address] [id number] [address] [place] [address], [place] [address] May, [facility] [address] [id number] [address] [place] [address], [place] [address] May, [facility] [address] [id number] [address] [place] [address], [place] [address] May, [facility] [address] [id number] [address] [place] [address], [place] [address] Apr, [facility] [address] [id number] [address] [place] [address], [place] [address] Feb, [facility] [address] [id number] [address] [place] [address], [place] [address] Feb, [facility] [address] [id number] [address] [place] [address], [place] [address] Jan, [facility] [address] [id number] [address] [place] [address], [place] [address] Jan, [facility] [address] [id number] [address] [place] [address], [place] [address] Nov, [facility] [address] [id number] [address] [place] [address], [place] [address] Oct, [facility] [address] [id number] [address] [place] [address], [place] [address] Oct, [facility] [address] [id number] [address] [place] [address], [place] [address] Jul, [facility] [address] [facility] [id number] [address] [place] [address] May, [facility] [address] [facility] [id number] [address] [place] [address] Nov, [facility] [address] [facility] [id number] [address] [place] [address] Jun, [facility] [address] [facility] [id number] [address] [place] [address] December, [facility] [address] [facility] [id number] [address] [place] [address] Jul, IMMUNIZATIONS No Known Immunizations SOCIAL HISTORY Never Assessed REASON FOR VISIT ayesha/Stephy PEPPER PLAN OF CARE Activity Details Follow Up 2 Months Reason: VITAL SIGNS Height 68 in 2018-11-02 Weight 168.6 lbs 2018-11-02 Heart Rate 90 bpm 2018-11-02 Respiratory Rate 20 2018-11-02 BMI 25.63 kg/m2 2018-11-02 Blood pressure systolic 148 mmHg 2018-11-02 Blood pressure diastolic 68 mmHg 2018-11-02 MEDICATIONS Medication Instructions Dosage Frequency Start Date End Date Duration S tatus Prasugrel HCl 10 MG Orally Once a day 1 tablet 24h 3 0 days Active Bisacodyl EC 5 MG Orally Once a day 2 tablets 24h 30 days Active BD Pen Needle Ultrafine 29G X 12.7MM subcutaneously once daily Inje ct 24h May, 30 days Active Proventil HFA 108 (90 Base) MCG/ACT Inhalation every 4 hrs 2 puffs as needed 4h 30 days Active Carafate 1 GM Orally 4 times a day 1 tablet on an empty stomach 6h 30 days Active Paxil CR 12.5 MG Orally Once a day 1 tablet in the morning 24h 1 2 Oct, 2018 30 day(s) Active Mirtazapine 30 MG Orally Once a day 1 tablet at bedtime 24h Active Levemir FlexTouch 100 UNIT/ML Subcutaneous once daily Inject 20 uni ts 24h May, 30 days Active Tramadol HCl 50 MG Orally 3 times a day 1 tablet as needed 8h 28 days Active Incruse Ellipta 62.5 MCG/INH Inhalation Once a day 1 puff 24h 30 days Active Oxygen 2 L/NC as directed Jun, A ctive Zestril 2.5 MG Orally Once a day 1 tablet 24h 30 day s Active Caffeine - as directed Active Pantoprazole Sodium 40 MG Orally 2 times a day 1 tablet 12h 30 days Active PARoxetine HCl ER 37.5 MG Orally Once a day 1 tablet in the morning 24 h 30 days Active Finasteride 5 MG Orally Once a day 1 tablet 24h 30 d ays Active Symbicort 160-4.5 MCG/ACT Inhalation Twice a day 2 puffs 12h 0 2 May, 2018 30 days Active Prazosin HCl 1 MG Orally for nightmares 4 caps every night for one week then take 5 capsules every night 30 days Active Metoprolol Succinate ER 25 MG Orally 2 times a day 1 tablet 12h 30 days Active HydrOXYzine HCl 25 MG Orally 3 times a day 1 tablet as needed 8h Active Atorvastatin Calcium 80 MG Orally Once a day 1 tablet 24h 30 days Active Polyethylene Glycol 3350 - Orally 2 times a day 2 packets mi xed with 8 ounces of fluid 12h 30 days Active RESULTS No Results PROCEDURES Procedure Date Ordered Result Body Site [facility] VISIT ESTABLISHED PATIENT November 02, 2018 INSTRUCTIONS MEDICATIONS ADMINISTERED No Known Medications [...]
--- OUTSIDE RECORDS SUMMARY | 2019-11-07 14:20 | XMS REPORT ---
Author Author Salomon STAHL Organization [facility] Address [address] [place] [address] Care Team Providers Care Yardage Control Clerk Name Role Phone RONDA STAHL Unavailable PROBLEMS Type Condition ICD9-CM Code LMC35-OZ Code Onset Dates Condition S tatus SNOMED Code Problem Diabetes type 2, controlled E11.9 Ac tive 21428894 Problem Diabetes E11.9 Active 27789003 Problem Hypertriglyceridemia E78.1 Active 541044833 Problem Panlobular emphysema J43.1 Active 2312431 Problem Gastroesophageal reflux disease with esophagitis K 21.0 Active 733900161 Problem PTSD (post-traumatic stress disorder) F43.10 Active 86736979 Problem Hypertensive heart disease with heart failure I11. 0 Active 04645711 Problem Other chronic pain G89.29 Active 8 0084569 Problem Hypoglycemia E16.2 Active 3943143 03 Problem COPD exacerbation J44.1 Active 19 9759089 Problem PVD (peripheral vascular disease) I73.9 Active 219676355 Problem Uncontrolled type 2 diabetes mellitus with hyperglycemia E11.65 Active 652997233 Problem Foot drop, right M21.371 Active 308 [id number] Problem Afib I48.91 Active 50929681 ALLERGIES No Information ENCOUNTERS Encounter Location Date Diagnosis [facility] [address] [facility] [id number] [address] [place] [phone] Mar, [facility] [address] [facility] [id number] [address] [place] [phone] Feb, [facility] [address] [facility] [id number] [address] [place] [phone] Feb, Hypoglycemia E16.2 [facility] [address] [facility] [id number] [address] [place] [phone] Feb, [facility] [address] [facility] [id number] [address] [place] [phone] Feb, [facility] [address] [facility] [id number] [address] [place] [phone] Feb, [facility] [address] [facility] [id number] [address] [place] [address] Feb, [facility] [address] [place] [id number] [address] [place] [phone] Feb, Hypertensive heart disease w ith heart failure I11.0 [facility] [address] [facility] [id number] [address] [place] [phone] Jan, SOB (shortness of breath) on exertion R06.02 [facility] [address] [facility] [id number] [address] [place] [phone] December, SOB (shortness of breath) on exertion R06.02 [facility] [address] [place] [id number] [address] [place] [phone] December, [facility] [address] [place] [id number] [address] [place] [phone] December, [facility] [address] [place] [id number] [address] [place] [phone] December, [facility] [address] [place] [id number] [address] [place] [address] December, [facility] [address] [place] [id number] [address] [place] [phone] December, PTSD (post-traumatic stress disorder) F43.10 [facility] [address] [facility] [id number] [address] [place] [phone] Nov, Diabetes type 2, controlled E11.9 ; Hypertriglyceridemia E78.1 ; COPD exacerbation J44.1 ; PTSD (post-traumatic stress disorder) F43.10 ; Other chronic pain G89.29 ; Gastroesophageal reflux disease with esophagitis K21.0 ; PVD (peripheral vascular disease) I73.9 and Hypertensive heart disease with heart failure I11.0 [facility] [address] [place] [id number] [address] [place] [phone] Oct, PTSD (post-traumatic stress disorder) F43.10 [place] [id number] [facility] [id number] [address] [place] [address] Sep, Diabetes type 2, controlled E11.9 and PTSD (post-traumatic stress disorder) F43.10 [place] [id number] [facility] [id number] [address] [place] [address] Sep, [facility] [address] [facility] [id number] [address] [place] [phone] Sep, PTSD (post-traumatic stress disorder) F43.10 [place] [address] [facility] [id number] [address] [place] [phone] Sep, [place] [address] [place] [id number] [address] [place] [phone] Aug, COPD exacerbation J44.1 ; Di fficulty breathing R06.89 ; History of GI bleed Z87.19 ; PVD (peripheral vascular disease) I73.9 and Uncontrolled type 2 diabetes mellitus with hyperglycemia E11.65 [place] [address] [place] [id number] [address] [place] [phone] Aug, [place] [address] [facility] [id number] [address] [place] [phone] Aug, PTSD (post-traumatic stress disorder) F43.10 and Type 2 diabetes mellitus without complication, without long-term current use of insulin E11.9 [facility] [employer] [address] [place] [id number] Aug, History of GI bleed Z87.19 ; COPD exacer bation J44.1 and PVD (peripheral vascular disease) I73.9 [place] [address] [place] [id number] [address] [place] [phone] Aug, [facility] [address] [place] [id number] Aug, Diabetes E11.9 ; Other chronic pain G89. 29 and Panlobular emphysema J43.1 [place] [address] [place] [id number] [address] [place] [phone] Jul, [place] [address] [facility] [id number] [address] [place] [address] Jun, PTSD (post-traumatic stress disorder) F43.10 [place] [address] [place] [id number] [place] [address] Jun, [place] [address] [place] [id number] [address] [place] [address] Jun, PTSD (post-traumatic stress disorder) F43.10 [place] [address] [place] [id number] [address] [place] [phone] 12 Jun, 2018 [place] [address] [place] [id number] [place] [phone] Jun, [place] [address] [place] [id number] [place] [phone] 08 Jun, 2018 Uncontrolled type 2 diabetes mellitus without complication, without long-term current use of insulin E11.65 [place] [address] [address] 07 Jun, 2018 PTSD (post-traumatic stress disorder) F43.10 ; Low back pain M54.5 ; Other chronic pain G89.29 ; Gastroesophageal reflux disease with esophagitis K21.0 and Panlobular emphysema J43.1 [place] [address] [place] [id number] [address] [place] [phone] Jun, [place] [address] [place] [id number] [address] [place] [phone] Jun, Other chest pain R07.89 ; Ta chycardia R00.0 and Murmur, cardiac R01.1 [place] [address] [place] [id number] [place] [address] May, Other chest pain R07.89 ; Ta chycardia R00.0 and Murmur, cardiac R01.1 [facility] [address] [id number] [address] [place] [phone] May, [facility] [address] [facility] [id number] [address] [place] [address] May, Uncontrolled type 2 diabetes mellitus with hyperglycemia E11.65 and Oral candidiasis B37.0 [facility] [address] [facility] [id number] [address] [place] [address] May, COPD exacerbation J44.1 [facility] [address] [id number] [address] [place] [phone] May, COPD exacerbation J44.1 [facility] [address] [facility] [id number] [address] [place] [phone] May, COPD exacerbation J44.1 and Type 2 diabetes mellitus without complication, without long-term current use of insulin E11.9 [facility] [address] [facility] [id number] [address] [place] [phone] May, Difficulty breathing R06.89 and Acute bronchitis, unspecified organism J20.9 [facility] [address] [facility] [id number] [address] [place] [address] Apr, Uncontrolled type 2 diabetes mellitus without complication, without long-term current use of insulin E11.65 [facility] [address] [facility] [id number] [address] [place] [address] Feb, [facility] [address] [facility] [id number] [address] [place] [phone] Feb, [facility] [address] [facility] [id number] [address] [place] [phone] Feb, [facility] [address] [facility] [id number] [address] [place] [address] Jan, [facility] [address] [facility] [id number] [address] [place] [phone] Oct, [facility] [address] [facility] [id number] [address] [place] [phone] Jul, Diabetes type 2, controlled E11.9 [facility] [address] [facility] [id number] [address] [place] [phone] Jun, [facility] [address] [facility] [id number] [address] [place] [address] May, [facility] [address] [place] [id number] [place] [phone] May, Diabetes type 2, controlled E11.9 and Hypertriglyceridemia E78.1 [facility] [address] [place] [id number] [address] [place] [phone] May, [facility] [address] [place] [id number] [place] [address] Apr, Hypertriglyceridemia 272.1 ; Influenza vaccine administered V04.81 and Diabetes 250.00 [facility] [address] [phone] Mar, DM type 2 (diabetes mellitus , type 2) 250.00 ; Essential hypertension, benign 401.1 and Mood disorder 296.90 [facility] [address] [place] [id number] [address] [place] [phone] Jan, [facility] [address] [place] [id number] [address] [place] [phone] Nov, [facility] [address] [place] [id number] [address] [place] [phone] Nov, [facility] [address] [place] [id number] [address] [place] [phone] Sep, [facility] [address] [place] [id number] [address] [place] [address] Sep, [facility] [address] [place] [id number] [address] [place] [id number] Sep, [facility] [address] [place] [id number] [address] [place] [phone] Sep, [facility] [address] [id number] [address] [place] [address], [place] [address] May, [facility] [address] [id number] [address] [place] [address], [place] [address] May, [facility] [address] [id number] [address] [place] [address], [place] [address] Apr, [facility] [address] [id number] [address] [place] [address], [place] [address] Apr, [facility] [address] [id number] [address] [place] [address], [place] [address] Mar, [facility] [address] [id number] [address] [place] [address], [place] [address] Mar, [facility] [address] [id number] [address] [place] [address], [place] [address] Mar, [facility] [address] [id number] [address] [place] [address], [place] [address] Mar, [facility] [address] [id number] [address] [place] [address], [place] [address] Jan, [facility] [address] [id number] [address] [place] [address], [place] [address] Jan, [facility] [address] [id number] [address] [place] [address], [place] [address] Jan, [facility] [address] [id number] [address] [place] [address], [place] [address] Jan, [facility] [address] [id number] [address] [place] [address], [place] [address] Jan, [facility] [address] [id number] [address] [place] [address], [place] [address] Jan, [facility] [address] [id number] [address] [place] [address], [place] [address] Oct, [facility] [address] [id number] [address] [place] [phone] Oct, [facility] [address] [id number] [address] [place] [address], [place] [address] Sep, [facility] [address] [id number] [address] [place] [address], [place] [address] Sep, [facility] [address] [id number] [address] [place] [address], [place] [address] Jun, [facility] [address] [id number] [address] [place] [address], [place] [address] Jun, [facility] [address] [id number] [address] [place] [address], [place] [address] Mar, [facility] [address] [id number] [address] [place] [address], [place] [address] Feb, [facility] [address] [id number] [address] [place] [address], [place] [address] Feb, [facility] [address] [id number] [address] [place] [address], [place] [address] Nov, [facility] [address] [id number] [address] [place] [address], [place] [address] Aug, [facility] [address] [id number] [address] [place] [address], [place] [address] Aug, [facility] [address] [id number] [address] [place] [address], [place] [address] Jul, [facility] [address] [id number] [address] [place] [address] Jul, [facility] [address] [id number] [address] [place] [address], [place] [address] May, [facility] [address] [id number] [address] [place] [address], [place] [address] May, [facility] [address] [id number] [address] [place] [address], [place] [address] May, [facility] [address] [id number] [address] [place] [address] May, [facility] [address] [id number] [address] [place] [address] Apr, [facility] [address] [id number] [address] [place] [phone] Feb, [facility] [address] [id number] [address] [place] [address] Feb, [facility] [address] [id number] [address] [place] [address] Jan, [facility] [address] [id number] [address] [place] [address] Jan, [facility] [address] [id number] [address] [place] [address] Nov, [facility] [address] [id number] [address] [place] [address] Oct, [facility] [address] [id number] [address] [place] [address] Oct, [facility] [address] [id number] [address] [place] [phone] Jul, [facility] [address] [id number] [address] [place] [address] May, [facility] [address] [id number] [address] [place] [phone] Nov, [facility] [address] [id number] [address] [place] [address] Jun, [facility] [address] [id number] [address] [place] [address] December, [facility] [address] [id number] [address] [place] [address] Jul, IMMUNIZATIONS No Known Immunizations SOCIAL HISTORY [...]
--- OUTSIDE RECORDS SUMMARY | 2019-11-07 14:23 | XMS REPORT | Continuity of Care Document ---
Author Organization Unknown Address Unknown Phone Unavailable Allergies Active Description Code Type Severity Reaction Onset Reported/Identified Relationship to Patient Clinical Status Yes No Known Drug Allergies [id number] Drug Allergy Unknown N/A 07/23/2018 Medications There is no data. Problems Date Dx Coded Attending Type Code Diagnosis Diagnosed By 08/03/2008 401.1 HYPE RTENSION, BENIGN ESSENTIAL 08/03/2008 401.1 HYPE RTENSION, BENIGN ESSENTIAL 08/03/2008 401.1 HYPE RTENSION, BENIGN ESSENTIAL 08/03/2008 RONDA STAHL APRN 40 1.1 HYPERTENSION, BENIGN ESSENTIAL 08/03/2008 401.1 HYPE RTENSION, BENIGN ESSENTIAL 08/03/2008 RONDA STAHL APRN 40 1.1 HYPERTENSION, BENIGN ESSENTIAL 08/03/2008 RONDA STAHL APRN 40 1.1 HYPERTENSION, BENIGN ESSENTIAL 08/03/2008 RONDA STAHL APRN 40 1.1 HYPERTENSION, BENIGN ESSENTIAL 08/03/2008 ALBERT ABEL DO 401.1 HYPERTENSION, BENIGN ESSENTIAL 2008 401.9 UNSP ECIFIED ESSENTIAL HYPERTENSION 2008 401.9 UNSP ECIFIED ESSENTIAL HYPERTENSION 2008 401.9 UNSP ECIFIED ESSENTIAL HYPERTENSION 2008 RONDA STAHL APRN 40 1.9 UNSPECIFIED ESSENTIAL HYPERTENSION 2008 401.9 UNSP ECIFIED ESSENTIAL HYPERTENSION 2008 RONDA STAHL APRN 40 1.9 UNSPECIFIED ESSENTIAL HYPERTENSION 2008 RONDA STAHL APRN 40 1.9 UNSPECIFIED ESSENTIAL HYPERTENSION 2008 RONDA STAHL APRN 40 1.9 UNSPECIFIED ESSENTIAL HYPERTENSION 2008 ALBERT ABEL DO 401.9 UNSPECIFIED ESSENTIAL HYPERTENSION 02/16/2009 250.00 SHANNAN BETES II CONTROLLED 02/16/2009 250.00 SHANNAN BETES II CONTROLLED 02/16/2009 250.00 SHANNAN BETES II CONTROLLED 02/16/2009 RONDA SATHL APRN 250.00 DIABETES II CONTROLLED 02/16/2009 250.00 SHANNAN BETES II CONTROLLED 02/16/2009 RONDA STAHL APRN 250.00 DIABETES II CONTROLLED 02/16/2009 RONDA STAHL APRN 250.00 DIABETES II CONTROLLED 02/16/2009 RONDA STAHL APRN 250.00 DIABETES II CONTROLLED 02/16/2009 ALBERT ABEL DO 250.00 DIABETES II CONTROLLED 02/26/2009 NODX NO DI AGNOSIS 02/26/2009 NODX NO DI AGNOSIS 02/26/2009 NODX NO DI AGNOSIS 02/26/2009 RONDA STAHL APRN NO DX NO DIAGNOSIS 02/26/2009 NODX NO DI AGNOSIS 02/26/2009 RONDA STAHL APRN NO DX NO DIAGNOSIS 02/26/2009 RONDA STAHL APRN NO DX NO DIAGNOSIS 02/26/2009 RONDA STAHL APRN NO DX NO DIAGNOSIS 02/26/2009 ALBERT ABEL DO NODX NO DIAGNOSIS 05/14/2009 477.9 RHINITIS 05/14/2009 477.9 RHINITIS 05/14/2009 477.9 RHINITIS 05/14/2009 RONDA STAHL APRN 47 7.9 RHINITIS 05/14/2009 477.9 RHINITIS 05/14/2009 RONDA STAHL APRN 47 7.9 RHINITIS 05/14/2009 RONDA STAHL APRN 47 7.9 RHINITIS 05/14/2009 RONDA STAHL APRN 47 7.9 RHINITIS 05/14/2009 ALBERT ABEL DO 477.9 RHINITIS 08/13/2009 465.9 UPPE R RESPIRATORY INFECTION 08/13/2009 465.9 UPPE R RESPIRATORY INFECTION 08/13/2009 465.9 UPPE R RESPIRATORY INFECTION 08/13/2009 RONDA STAHL APRN 46 5.9 UPPER RESPIRATORY INFECTION 08/13/2009 465.9 UPPE R RESPIRATORY INFECTION 08/13/2009 RONDA STAHL APRN 46 5.9 UPPER RESPIRATORY INFECTION 08/13/2009 RONDA STAHL APRN 46 5.9 UPPER RESPIRATORY INFECTION 08/13/2009 RONDA STAHL APRN 46 5.9 UPPER RESPIRATORY INFECTION 08/13/2009 ALBERT ABEL DO 465.9 UPPER RESPIRATORY INFECTION 01/09/2010 607.84 IMP OTENCE ORGANIC 01/09/2010 607.84 IMP OTENCE ORGANIC 01/09/2010 607.84 IMP OTENCE ORGANIC 01/09/2010 RONDA STAHL APRN 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 01/09/2010 607.84 IMP OTENCE ORGANIC 01/09/2010 RONDA STAHL APRN 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 01/09/2010 RONDA STAHL APRN 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 01/09/2010 RONDA STAHL APRN 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 01/09/2010 ALBERT ABEL DO 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 05/29/2010 535.50 GAS TRITIS UNSPEC 05/29/2010 V03.82 PCV 7 PCV13 PCV23, STREPTOCOCCUS PNEUMONIAE [PNEUMOCOCCUS] 05/29/2010 535.50 GAS TRITIS UNSPEC 05/29/2010 V03.82 PCV 7 PCV13 PCV23, STREPTOCOCCUS PNEUMONIAE [PNEUMOCOCCUS] 05/29/2010 535.50 GAS TRITIS UNSPEC 05/29/2010 V03.82 PCV 7 PCV13 PCV23, STREPTOCOCCUS PNEUMONIAE [PNEUMOCOCCUS] 05/29/2010 RONDA STAHL APRN 535.50 GASTRITIS UNSPEC 05/29/2010 RONDA STAHL APRN V03.82 PCV7 PCV13 PCV23, STREPTOCOCCUS PNEUMONIAE [PNEUMOCOC CUS] 05/29/2010 535.50 GAS TRITIS UNSPEC 05/29/2010 V03.82 PCV 7 PCV13 PCV23, STREPTOCOCCUS PNEUMONIAE [PNEUMOCOCCUS] 05/29/2010 RONDA STAHL APRN 535.50 GASTRITIS UNSPEC 05/29/2010 RONDA STAHL APRN V03.82 PCV7 PCV13 PCV23, STREPTOCOCCUS PNEUMONIAE [PNEUMOCOC CUS] 05/29/2010 RONDA STAHL APRN 535.50 GASTRITIS UNSPEC 05/29/2010 RONDA STAHL APRN V03.82 PCV7 PCV13 PCV23, STREPTOCOCCUS PNEUMONIAE [PNEUMOCOC CUS] 05/29/2010 RONDA STAHL APRN 535.50 GASTRITIS UNSPEC 05/29/2010 RONDA STAHL APRN V03.82 PCV7 PCV13 PCV23, STREPTOCOCCUS PNEUMONIAE [PNEUMOCOC CUS] 05/29/2010 ALBERT ABEL DO 535.50 GASTRITIS UNSPEC 05/29/2010 ALBERT ABEL DO V03.82 PCV7 PCV13 PCV23, STREPTOCOCCUS PNEUMONIAE [PNEUMOCOCCUS] 12/02/2010 724.5 BACK PAIN, GENERAL 12/02/2010 724.5 BACK PAIN, GENERAL 12/02/2010 724.5 BACK PAIN, GENERAL 12/02/2010 RONDA STAHL APRN 72 4.5 BACK PAIN, GENERAL 12/02/2010 724.5 BACK PAIN, GENERAL 12/02/2010 RONDA STAHL APRN 72 4.5 BACK PAIN, GENERAL 12/02/2010 RONDA STAHL APRN 72 4.5 BACK PAIN, GENERAL 12/02/2010 RONDA STAHL APRN 72 4.5 BACK PAIN, GENERAL 12/02/2010 ALBERT ABEL DO [...] (3 YRS AND ABOVE, IM) 06/15/2012 V05.8 ZOST AVAX DX 06/15/2012 V05.8 ZOST AVAX DX 06/15/2012 V05.8 ZOST AVAX DX 06/15/2012 RONDA STAHL APRN V0 5.8 ZOSTAVAX DX 06/15/2012 V05.8 ZOST AVAX DX 06/15/2012 RONDA STAHL APRN V0 5.8 ZOSTAVAX DX 06/15/2012 RONDA STAHL APRN V0 5.8 ZOSTAVAX DX 06/15/2012 RONDA STAHL APRN V0 5.8 ZOSTAVAX DX 06/15/2012 ALBERT ABEL DO V05.8 ZOSTAVAX DX 09/21/2012 522.5 DIMITRI APICAL ABSCESS WITHOUT SINUS 09/21/2012 RONDA STAHL APRN 52 2.5 PERIAPICAL ABSCESS WITHOUT SINUS 09/21/2012 522.5 DIMITRI APICAL ABSCESS WITHOUT SINUS 09/21/2012 RONDA STAHL APRN T 52 2.5 PERIAPICAL ABSCESS WITHOUT SINUS 09/21/2012 RONDA STAHL APRN 52 2.5 PERIAPICAL ABSCESS WITHOUT SINUS 09/21/2012 RONDA STAHL APRN T 52 2.5 PERIAPICAL ABSCESS WITHOUT SINUS 09/21/2012 ABEL DO, ALBERT K 522.5 PERIAPICAL ABSCESS WITHOUT SINUS 01/30/2014 RONDA STAHL APRN 40 1.1 HYPERTENSION, BENIGN ESSENTIAL 01/30/2014 RONDA STAHL APRN 40 1.1 HYPERTENSION, BENIGN ESSENTIAL 01/30/2014 ABEL DO, ALBERT K 401.1 HYPERTENSION, BENIGN ESSENTIAL 06/12/2014 ABEL DO, ALBERT K V04.81 FLU SHOT 07/13/2018 JOHN VILLALPANDO MD, Ot D62 ACUTE POSTHEMORRHAGIC ANEMIA 07/13/2018 JOHN VILLALPANDO MD, Ot D72.829 ELEVATED WHITE BLOOD CELL COUNT, UNSPECI 07/13/2018 JOHN VILLALPANDO MD Ot E11.65 TYPE 2 DIABETES MELLITUS WITH HYPERGLYCE 07/13/2018 JOHN VILLALPANDO MD Ot E86 .1 HYPOVOLEMIA 07/13/2018 JOHN VILLALPANDO MD, Ot E87 .2 ACIDOSIS 07/13/2018 JOHN VILLALPANDO MD, Ot E87 .6 HYPOKALEMIA 07/13/2018 JOHN VILLALPANDO MD Ot F17.210 NICOTINE DEPENDENCE, CIGARETTES, UNCOMPL 07/13/2018 JOHN VILLALPANDO MD, Ot F32 .9 MAJOR DEPRESSIVE DISORDER, SINGLE EPISOD 07/13/2018 JOHN VILLALPANDO MD, Ot F43.10 POST-TRAUMATIC STRESS DISORDER, UNSPECIF 07/13/2018 JOHN VILLALPANDO MD Ot H57.89 OTHER SPECIFIED DISORDERS OF EYE AND ADN 07/13/2018 JOHN VILLALPANDO MD, Ot I10 ESSENTIAL (PRIMARY) HYPERTENSION 07/13/2018 JOHN VILLALPANDO MD Ot I87 .2 VENOUS INSUFFICIENCY (CHRONIC) (PERIPHER 07/13/2018 JOHN VILLALPANDO MD, Ot J44 .9 CHRONIC OBSTRUCTIVE PULMONARY DISEASE, U 07/13/2018 JOHN VILLALPANDO MD, Ot K21 .0 GASTRO-ESOPHAGEAL REFLUX DISEASE WITH ES 07/13/2018 JOHN VILLALPANDO MD Ot K26 .4 CHRONIC OR UNSPECIFIED DUODENAL ULCER [place] 07/13/2018 JOHN VILLALPANDO MD, Ot K29.71 GASTRITIS, UNSPECIFIED, WITH BLEEDING 07/13/2018 JOHN VILLALPANDO MD Ot K44 .9 DIAPHRAGMATIC HERNIA WITHOUT OBSTRUCTION 07/13/2018 JOHN VILLALPANDO MD Ot K58 .1 IRRITABLE BOWEL SYNDROME WITH CONSTIPATI 07/13/2018 JOHN VILLALPANDO MD Ot M21.371 FOOT DROP, RIGHT FOOT 07/13/2018 JOHN VILLALPANDO MD, Ot M47 .9 SPONDYLOSIS, UNSPECIFIED 07/13/2018 JOHN VILLALPANDO MD, Ot N17 .9 ACUTE KIDNEY FAILURE, UNSPECIFIED 07/13/2018 JOHN VILLALPANDO MD, Ot N40 .1 BENIGN PROSTATIC HYPERPLASIA WITH LOWER 07/13/2018 JOHN VILLALPANDO MD Ot R33 .8 OTHER RETENTION OF URINE 07/13/2018 JOHN VILLALPANDO MD Ot R53 .1 WEAKNESS 07/13/2018 JOHN VILLALPANDO MD Ot R63 .0 ANOREXIA 07/13/2018 JOHN VILLALPANDO MD Ot Z66 DO NOT RESUSCITATE 07/13/2018 JOHN VILLALPANDO MD, Ot Z79.82 INSPECTOR FABRIC (CURRENT) USE OF ASPIRIN 07/14/2018 JOHN VILLALPANDO MD Ot D62 ACUTE POSTHEMORRHAGIC ANEMIA 07/14/2018 JOHN VILLALPANDO MD, Ot D72.829 ELEVATED WHITE BLOOD CELL COUNT, UNSPECI 07/14/2018 JOHN VILLALPANDO MD, Ot E11.65 TYPE 2 DIABETES MELLITUS WITH HYPERGLYCE 07/14/2018 JOHN VILLALPANDO MD Ot E86 .1 HYPOVOLEMIA 07/14/2018 JOHN VILLALPANDO MD Ot E87 .2 ACIDOSIS 07/14/2018 JOHN VILLALPANDO MD Ot E87 .6 HYPOKALEMIA 07/14/2018 JOHN VILLALPANDO MD Ot F17.210 NICOTINE DEPENDENCE, CIGARETTES, UNCOMPL 07/14/2018 JOHN VILLALPANDO MD Ot F32 .9 MAJOR DEPRESSIVE DISORDER, SINGLE EPISOD 07/14/2018 JOHN VILLALPANDO MD Ot F43.10 POST-TRAUMATIC STRESS DISORDER, UNSPECIF 07/14/2018 JOHN VILLALPANDO MD, Ot H57.89 OTHER SPECIFIED DISORDERS OF EYE AND ADN 07/14/2018 JOHN VILLALPANDO MD, Ot I10 ESSENTIAL (PRIMARY) HYPERTENSION 07/14/2018 JOHN VILLALPANDO MD, Ot I87 .2 VENOUS INSUFFICIENCY (CHRONIC) (PERIPHER 07/14/2018 JOHN VILLALPANDO MD, Ot J44 .9 CHRONIC OBSTRUCTIVE PULMONARY DISEASE, U 07/14/2018 JOHN VILLALPANDO MD, Ot K21 .0 GASTRO-ESOPHAGEAL REFLUX DISEASE WITH ES 07/14/2018 JOHN VILLALPANDO MD, Ot K26 .4 CHRONIC OR UNSPECIFIED DUODENAL ULCER [place] 07/14/2018 JOHN VILLALPANDO MD, Ot K29.71 GASTRITIS, UNSPECIFIED, WITH BLEEDING 07/14/2018 JOHN VILLALPANDO MD, Ot K44 .9 DIAPHRAGMATIC HERNIA WITHOUT OBSTRUCTION 07/14/2018 JOHN VILLALPANDO MD, Ot K58 .1 IRRITABLE BOWEL SYNDROME WITH CONSTIPATI 07/14/2018 JOHN VILLALPANDO MD, Ot M21.371 FOOT DROP, RIGHT FOOT 07/14/2018 JOHN VILLALPANDO MD, Ot M47 .9 SPONDYLOSIS, UNSPECIFIED 07/14/2018 JOHN VILLALPANDO MD, Ot N17 .9 ACUTE KIDNEY FAILURE, UNSPECIFIED 07/14/2018 JOHN VILLALPANDO MD, Ot N40 .1 BENIGN PROSTATIC HYPERPLASIA WITH LOWER 07/14/2018 JOHN VILLALPANDO MD Ot R33 .8 OTHER RETENTION OF URINE 07/14/2018 JOHN VILLALPANDO MD, Ot R53 .1 WEAKNESS 07/14/2018 JOHN VILLALPANDO MD, Ot R63 .0 ANOREXIA 07/14/2018 JOHN VILLALPANDO MD, Ot Z66 DO NOT RESUSCITATE 07/14/2018 JOHN VILLALPANDO MD, Ot Z79.82 DETENTION (CURRENT) USE OF ASPIRIN 07/15/2018 JOHN VILLALPANDO MD, Ot D62 ACUTE POSTHEMORRHAGIC ANEMIA 07/15/2018 JOHN VILLALPANDO MD, Ot D72.829 ELEVATED WHITE BLOOD CELL COUNT, UNSPECI 07/15/2018 JOHN VILLALPANDO MD, Ot E11.65 TYPE 2 DIABETES MELLITUS WITH HYPERGLYCE 07/15/2018 JOHN VILLALPANDO MD, Ot E86 .1 HYPOVOLEMIA 07/15/2018 JOHN VILLALPANDO MD, Ot E87 .2 ACIDOSIS 07/15/2018 JOHN VILLALPANDO MD, Ot E87 .6 HYPOKALEMIA 07/15/2018 JOHN VILLALPANDO MD, Ot F17.210 NICOTINE DEPENDENCE, CIGARETTES, UNCOMPL 07/15/2018 JOHN VILLALPANDO MD, Ot F32 .9 MAJOR DEPRESSIVE DISORDER, SINGLE EPISOD 07/15/2018 JOHN VILLALPANDO MD, Ot F43.10 POST-TRAUMATIC STRESS DISORDER, UNSPECIF 07/15/2018 JOHN VILLALPANDO MD, Ot H57.89 OTHER SPECIFIED DISORDERS OF EYE AND ADN 07/15/2018 JOHN VILLALPANDO MD, Ot I10 ESSENTIAL (PRIMARY) HYPERTENSION 07/15/2018 JOHN VILLALPANDO MD, Ot I87 .2 VENOUS INSUFFICIENCY (CHRONIC) (PERIPHER 07/15/2018 JOHN VILLALPANDO MD, Ot J44 .9 CHRONIC OBSTRUCTIVE PULMONARY DISEASE, U 07/15/2018 JOHN VILLALPANDO MD, Ot K21 .0 GASTRO-ESOPHAGEAL REFLUX DISEASE WITH ES 07/15/2018 JOHN VILLALPANDO MD, Ot K26 .4 CHRONIC OR UNSPECIFIED DUODENAL ULCER [place] 07/15/2018 JOHN VILLALPANDO MD, Ot K29.71 GASTRITIS, UNSPECIFIED, WITH BLEEDING 07/15/2018 JOHN VILLALPANDO MD, Ot K44 .9 DIAPHRAGMATIC HERNIA WITHOUT OBSTRUCTION 07/15/2018 JOHN VILLALPANDO MD, Ot K58 .1 IRRITABLE BOWEL SYNDROME WITH CONSTIPATI 07/15/2018 JOHN VILLALPANDO MD, Ot M21.371 FOOT DROP, RIGHT FOOT 07/15/2018 JOHN VILLALPANDO MD, Ot M47 .9 SPONDYLOSIS, UNSPECIFIED 07/15/2018 JOHN VILLALPANDO MD, Ot N17 .9 ACUTE KIDNEY FAILURE, UNSPECIFIED 07/15/2018 JOHN VILLALPANDO MD, Ot N40 .1 BENIGN PROSTATIC HYPERPLASIA WITH LOWER 07/15/2018 JOHN VILLALPANDO MD Ot R33 .8 OTHER RETENTION OF URINE 07/15/2018 JOHN VILLALPANDO MD, Ot R53 .1 WEAKNESS 07/15/2018 JOHN VILLALPANDO MD, Ot R63 .0 ANOREXIA 07/15/2018 JOHN VILLALPANDO MD, Ot Z66 DO NOT RESUSCITATE 07/15/2018 JOHN VILLALPANDO MD, Ot Z79.82 INSPECTOR FABRIC (CURRENT) USE OF ASPIRIN 07/16/2018 JOHN VILLALPANDO MD Ot D62 ACUTE POSTHEMORRHAGIC ANEMIA 07/16/2018 JOHN VILLALPANDO MD, Ot D72.829 ELEVATED WHITE BLOOD CELL COUNT, UNSPECI 07/16/2018 JOHN VILLALPANDO MD, Ot E11.65 TYPE 2 DIABETES MELLITUS WITH HYPERGLYCE 07/16/2018 JOHN VILLALPANDO MD, Ot E86 .1 HYPOVOLEMIA 07/16/2018 JOHN VILLALPANDO MD, Ot E87 .2 ACIDOSIS 07/16/2018 JOHN VILLALPANDO MD, Ot E87 .6 HYPOKALEMIA 07/16/2018 JOHN VILLALPANDO MD, Ot F17.210 NICOTINE DEPENDENCE, CIGARETTES, UNCOMPL 07/16/2018 JOHN VILLALPANDO MD, Ot F32 .9 MAJOR DEPRESSIVE DISORDER, SINGLE EPISOD 07/16/2018 JOHN VILLALPANDO MD, Ot F43.10 POST-TRAUMATIC STRESS DISORDER, UNSPECIF 07/16/2018 JOHN VILLALPANDO MD, Ot H57.89 OTHER SPECIFIED DISORDERS OF EYE AND ADN 07/16/2018 JOHN VILLALPANDO MD, Ot I10 ESSENTIAL (PRIMARY) HYPERTENSION 07/16/2018 JOHN VILLALPANDO MD, Ot I87 .2 VENOUS INSUFFICIENCY (CHRONIC) (PERIPHER 07/16/2018 JOHN VILLALPANDO MD, Ot J44 .9 CHRONIC OBSTRUCTIVE PULMONARY DISEASE, U 07/16/2018 JOHN VILLALPANDO MD, Ot K21 .0 GASTRO-ESOPHAGEAL REFLUX DISEASE WITH ES 07/16/2018 JOHN VILLALPANDO MD Ot K26 .4 CHRONIC OR UNSPECIFIED DUODENAL ULCER [place] 07/16/2018 JOHN VILLALPANDO MD, Ot K29.71 GASTRITIS, UNSPECIFIED, WITH BLEEDING 07/16/2018 JOHN VILLALPANDO MD Ot K44 .9 DIAPHRAGMATIC HERNIA WITHOUT OBSTRUCTION 07/16/2018 JOHN VILLALPANDO MD, Ot K58 .1 IRRITABLE BOWEL SYNDROME WITH CONSTIPATI 07/16/2018 JOHN VILLALPANDO MD Ot M21.371 FOOT DROP, RIGHT FOOT 07/16/2018 JOHN VILLALPANDO MD, Ot M47 .9 SPONDYLOSIS, UNSPECIFIED 07/16/2018 JOHN VILLALPANDO MD, Ot N17 .9 ACUTE KIDNEY FAILURE, UNSPECIFIED 07/16/2018 JOHN VILLALPANDO MD, Ot N40 .1 BENIGN PROSTATIC HYPERPLASIA WITH LOWER 07/16/2018 JOHN VILLALPANDO MD Ot R33 .8 OTHER RETENTION OF URINE 07/16/2018 JOHN VILLALPANDO MD, Ot R53 .1 WEAKNESS 07/16/2018 JOHN VILLALPANDO MD, Ot R63 .0 ANOREXIA 07/16/2018 JOHN VILLALPANDO MD, Ot Z66 DO NOT RESUSCITATE 07/16/2018 JOHN VILLALPANDO MD, Ot Z79.82 DETENTION (CURRENT) USE OF ASPIRIN 07/16/2018 JOHN VILLALPANDO MD, Ot D62 ACUTE POSTHEMORRHAGIC ANEMIA 07/16/2018 JOHN VILLALPANDO MD, Ot D72.829 ELEVATED WHITE BLOOD CELL COUNT, UNSPECI 07/16/2018 JOHN VILLALPANDO MD, Ot E11.65 TYPE 2 DIABETES MELLITUS WITH HYPERGLYCE 07/16/2018 JOHN VILLALPANDO MD, Ot E86 .1 HYPOVOLEMIA 07/16/2018 JOHN VILLALPANDO MD, Ot E87 .2 ACIDOSIS 07/16/2018 JOHN VILLALPANDO MD, Ot E87 .6 HYPOKALEMIA 07/16/2018 JOHN VILLALPANDO MD Ot F17.210 NICOTINE DEPENDENCE, CIGARETTES, UNCOMPL 07/16/2018 JOHN VILLALPANDO MD, Ot F32 .9 MAJOR DEPRESSIVE DISORDER, SINGLE EPISOD 07/16/2018 JOHN VILLALPANDO MD, Ot F43.10 POST-TRAUMATIC STRESS DISORDER, UNSPECIF 07/16/2018 JOHN VILLALPANDO MD, Ot H57.89 OTHER SPECIFIED DISORDERS OF EYE AND ADN 07/16/2018 JOHN VILLALPANDO MD, Ot I10 ESSENTIAL (PRIMARY) HYPERTENSION 07/16/2018 JOHN VILLALPANDO MD, Ot I87 .2 VENOUS INSUFFICIENCY (CHRONIC) (PERIPHER 07/16/2018 JOHN VILLALPANDO MD, Ot J44 .9 CHRONIC OBSTRUCTIVE PULMONARY DISEASE, U 07/16/2018 KWASI MD, JOHN N Ot K21 .0 GASTRO-ESOPHAGEAL REFLUX DISEASE WITH ES 07/16/2018 JOHN VILLALPANDO MD Ot K26 .4 CHRONIC OR UNSPECIFIED DUODENAL ULCER [place] 07/16/2018 JOHN VILLALPANDO MD, Ot K29.71 GASTRITIS, UNSPECIFIED, WITH BLEEDING 07/16/2018 JOHN VILLALPANDO MD, Ot K44 .9 DIAPHRAGMATIC HERNIA WITHOUT OBSTRUCTION 07/16/2018 JOHN VILLALPANDO MD, Ot K58 .1 IRRITABLE BOWEL SYNDROME WITH CONSTIPATI 07/16/2018 JOHN VILLALPANDO MD, Ot M21.371 FOOT DROP, RIGHT FOOT 07/16/2018 JOHN VILLALPANDO MD, Ot M47 .9 SPONDYLOSIS, UNSPECIFIED 07/16/2018 JOHN VILLALPANDO MD, Ot N17 .9 ACUTE KIDNEY FAILURE, UNSPECIFIED 07/16/2018 JOHN VILLALPANDO MD, Ot N40 .1 BENIGN PROSTATIC HYPERPLASIA WITH LOWER 07/16/2018 JOHN VILLALPANDO MD Ot R33 .8 OTHER RETENTION OF URINE 07/16/2018 JOHN VILLALPANDO MD Ot R53 .1 WEAKNESS 07/16/2018 JOHN VILLALPANDO MD, Ot R63 .0 ANOREXIA 07/16/2018 JOHN VILLALPANDO MD, Ot Z66 DO NOT RESUSCITATE 07/16/2018 JOHN VILLALPANDO MD, Ot Z79.82 INSPECTOR FABRIC (CURRENT) USE OF ASPIRIN 07/17/2018 JOHN VILLALPANDO MD Ot D62 ACUTE POSTHEMORRHAGIC ANEMIA 07/17/2018 JOHN VILLALPANDO MD, Ot D72.829 ELEVATED WHITE BLOOD CELL COUNT, UNSPECI 07/17/2018 JOHN VILLALPANDO MD, Ot E11.65 TYPE 2 DIABETES MELLITUS WITH HYPERGLYCE 07/17/2018 JOHN VILLALPANDO MD Ot E86 .1 HYPOVOLEMIA 07/17/2018 JOHN VILLALPANDO MD, Ot E87 .2 ACIDOSIS 07/17/2018 JOHN VILLALPANDO MD, Ot E87 .6 HYPOKALEMIA 07/17/2018 JOHN VILLALPANDO MD Ot F17.210 NICOTINE DEPENDENCE, CIGARETTES, UNCOMPL 07/17/2018 JOHN VILLALPANDO MD Ot F32 .9 MAJOR DEPRESSIVE DISORDER, SINGLE EPISOD 07/17/2018 JOHN VILLALPANDO MD, Ot F43.10 POST-TRAUMATIC STRESS DISORDER, UNSPECIF 07/17/2018 JOHN VILLALPANDO MD, Ot H57.89 OTHER SPECIFIED DISORDERS OF EYE AND ADN 07/17/2018 JOHN VILLALPANDO MD, Ot I10 ESSENTIAL (PRIMARY) HYPERTENSION 07/17/2018 JOHN VILLALPANDO MD Ot I87 .2 VENOUS INSUFFICIENCY (CHRONIC) (PERIPHER 07/17/2018 JOHN VILLALPANDO MD, Ot J44 .9 CHRONIC OBSTRUCTIVE PULMONARY DISEASE, U 07/17/2018 JOHN VILLALPANDO MD, Ot K21 .0 GASTRO-ESOPHAGEAL REFLUX DISEASE WITH ES 07/17/2018 JOHN VILLALPANDO MD, Ot K26 .4 CHRONIC OR UNSPECIFIED DUODENAL ULCER [place] 07/17/2018 JOHN VILLALPANDO MD, Ot K29.71 GASTRITIS, UNSPECIFIED, WITH BLEEDING 07/17/2018 JOHN VILLALPANDO MD, Ot K44 .9 DIAPHRAGMATIC HERNIA WITHOUT OBSTRUCTION 07/17/2018 JOHN VILLALPANDO MD, Ot K58 .1 IRRITABLE BOWEL SYNDROME WITH CONSTIPATI 07/17/2018 JOHN VILLALPANDO MD Ot M21.371 FOOT DROP, RIGHT FOOT 07/17/2018 JOHN VILLALPANDO MD, Ot M47 .9 SPONDYLOSIS, UNSPECIFIED 07/17/2018 JOHN VILLALPANDO MD, Ot N17 .9 ACUTE KIDNEY FAILURE, UNSPECIFIED 07/17/2018 JOHN VILLALPANDO MD, Ot N40 .1 BENIGN PROSTATIC HYPERPLASIA WITH LOWER 07/17/2018 JOHN VILLALPANDO MD Ot R33 .8 OTHER RETENTION OF URINE 07/17/2018 JOHN VILLALPANDO MD Ot R53 .1 WEAKNESS 07/17/2018 JOHN VILLALPANDO MD, Ot R63 .0 ANOREXIA 07/17/2018 JOHN VILLALPANDO MD, Ot Z66 DO NOT RESUSCITATE 07/17/2018 JOHN VILLALPANDO MD, Ot Z79.82 DETENTION (CURRENT) USE OF ASPIRIN 07/17/2018 JOHN VILLALPANDO MD Ot D62 ACUTE POSTHEMORRHAGIC ANEMIA 07/17/2018 JOHN VILLALPANDO MD, Ot D72.829 ELEVATED WHITE BLOOD CELL COUNT, UNSPECI 07/17/2018 KWASI MD, JOHN N Ot E11.65 TYPE 2 DIABETES MELLITUS WITH HYPERGLYCE 07/17/2018 JOHN VILLALPANDO MD, Ot E86 .1 HYPOVOLEMIA 07/17/2018 JOHN VILLALPANDO MD, Ot E87 .2 ACIDOSIS 07/17/2018 JOHN VILLALPANDO MD Ot E87 .6 HYPOKALEMIA 07/17/2018 JOHN VILLALPANDO MD, Ot F17.210 NICOTINE DEPENDENCE, CIGARETTES, UNCOMPL 07/17/2018 JOHN VILLALPANDO MD Ot F32 .9 MAJOR DEPRESSIVE DISORDER, SINGLE EPISOD 07/17/2018 JOHN VILLALPANDO MD, Ot F43.10 POST-TRAUMATIC STRESS DISORDER, UNSPECIF 07/17/2018 JOHN VILLALPANDO MD Ot H57.89 OTHER SPECIFIED DISORDERS OF EYE AND ADN 07/17/2018 JOHN VILLALPANDO MD, Ot I10 ESSENTIAL (PRIMARY) HYPERTENSION 07/17/2018 JOHN VILLALPANDO MD Ot I87 .2 VENOUS INSUFFICIENCY (CHRONIC) (PERIPHER 07/17/2018 JOHN VILLALPANDO MD, Ot J44 .9 CHRONIC OBSTRUCTIVE PULMONARY DISEASE, U 07/17/2018 JOHN VILLALPANDO MD, Ot K21 .0 GASTRO-ESOPHAGEAL REFLUX DISEASE WITH ES 07/17/2018 JOHN VILLALPANDO MD Ot K26 .4 CHRONIC OR UNSPECIFIED DUODENAL ULCER [place] 07/17/2018 JOHN VILLALPANDO MD Ot K29.71 GASTRITIS, UNSPECIFIED, WITH BLEEDING 07/17/2018 JOHN VILLALPANDO MD Ot K44 .9 DIAPHRAGMATIC HERNIA WITHOUT OBSTRUCTION 07/17/2018 JOHN VILLALPANDO MD Ot K58 .1 IRRITABLE BOWEL SYNDROME WITH CONSTIPATI 07/17/2018 JOHN VILLALPANDO MD Ot M21.371 FOOT DROP, RIGHT FOOT 07/17/2018 JOHN VILLALPANDO MD Ot M47 .9 SPONDYLOSIS, UNSPECIFIED 07/17/2018 JOHN VILLALPANDO MD Ot N17 .9 ACUTE KIDNEY FAILURE, UNSPECIFIED 07/17/2018 JOHN VILLALPANDO MD Ot N40 .1 BENIGN PROSTATIC HYPERPLASIA WITH LOWER 07/17/2018 JOHN VILLALPANDO MD Ot R33 .8 OTHER RETENTION OF URINE 07/17/2018 JOHN VILLALPANDO MD Ot R53 .1 WEAKNESS 07/17/2018 JOHN VILLALPANDO MD, Ot R63 .0 ANOREXIA 07/17/2018 JOHN VILLALPANDO MD, Ot Z66 DO NOT RESUSCITATE 07/17/2018 JOHN VILLALPANDO MD, Ot Z79.82 INSPECTOR FABRIC (CURRENT) USE OF ASPIRIN 07/18/2018 JOHN VILLALPANDO MD, Ot D62 ACUTE POSTHEMORRHAGIC ANEMIA 07/18/2018 JOHN VILLALPANDO MD, Ot D72.829 ELEVATED WHITE BLOOD CELL COUNT, UNSPECI 07/18/2018 JOHN VILLALPANDO MD, Ot E11.65 TYPE 2 DIABETES MELLITUS WITH HYPERGLYCE 07/18/2018 JOHN VILLALPANDO MD, Ot E86 .1 HYPOVOLEMIA 07/18/2018 JOHN VILLALPANDO MD, Ot E87 .2 ACIDOSIS 07/18/2018 JOHN VILLALPANDO MD, Ot E87 .6 HYPOKALEMIA 07/18/2018 JOHN VILLALPANDO MD, Ot F17.210 NICOTINE DEPENDENCE, CIGARETTES, UNCOMPL 07/18/2018 JOHN VILLALPANDO MD, Ot F32 .9 MAJOR DEPRESSIVE DISORDER, SINGLE EPISOD 07/18/2018 JOHN VILLALPANDO MD, Ot F43.10 POST-TRAUMATIC STRESS DISORDER, UNSPECIF 07/18/2018 JOHN VILLALPANDO MD, Ot H57.89 OTHER SPECIFIED DISORDERS OF EYE AND ADN 07/18/2018 JHON VILLALPANDO MD, Ot I10 ESSENTIAL (PRIMARY) HYPERTENSION 07/18/2018 JOHN VILLALPANDO MD, Ot I87 .2 VENOUS INSUFFICIENCY (CHRONIC) (PERIPHER 07/18/2018 JOHN VILLALPANDO MD, Ot J44 .9 CHRONIC OBSTRUCTIVE PULMONARY DISEASE, U 07/18/2018 JOHN VILLALPANDO MD, Ot K21 .0 GASTRO-ESOPHAGEAL REFLUX DISEASE WITH ES 07/18/2018 JOHN VILLALPANDO MD, Ot K26 .4 CHRONIC OR UNSPECIFIED DUODENAL ULCER [place] 07/18/2018 JOHN VILLALPANDO MD, Ot K29.71 GASTRITIS, UNSPECIFIED, WITH BLEEDING 07/18/2018 JOHN VILLALPANDO MD, Ot K44 .9 DIAPHRAGMATIC HERNIA WITHOUT OBSTRUCTION 07/18/2018 JOHN VILLALPANDO MD, Ot K58 .1 IRRITABLE BOWEL SYNDROME WITH CONSTIPATI 07/18/2018 JOHN VILLALPANDO MD, Ot M21.371 FOOT DROP, RIGHT FOOT 07/18/2018 JOHN VILLALPANDO MD, Ot M47 .9 SPONDYLOSIS, UNSPECIFIED 07/18/2018 JOHN VILLALPANDO MD, Ot N17 .9 ACUTE KIDNEY FAILURE, UNSPECIFIED 07/18/2018 JOHN VILLALPANDO MD, Ot N40 .1 BENIGN PROSTATIC HYPERPLASIA WITH LOWER 07/18/2018 JOHN VILLALPANDO MD, Ot R33 .8 OTHER RETENTION OF URINE 07/18/2018 JOHN VILLALPANDO MD, Ot R53 .1 WEAKNESS 07/18/2018 JOHN VILLALPANDO MD, Ot R63 .0 ANOREXIA 07/18/2018 JOHN VILLALPANDO MD, Ot Z66 DO NOT RESUSCITATE 07/18/2018 JOHN VILLALPANDO MD, Ot Z79.82 DETENTION (CURRENT) USE OF ASPIRIN 07/19/2018 JOHN VILLALPANDO MD Ot D62 ACUTE POSTHEMORRHAGIC ANEMIA 07/19/2018 JOHN VILLALPANDO MD, Ot D72.829 ELEVATED WHITE BLOOD CELL COUNT, UNSPECI 07/19/2018 JOHN VILLALPANDO MD, Ot E11.65 TYPE 2 DIABETES MELLITUS WITH HYPERGLYCE 07/19/2018 JOHN VILLALPANDO MD Ot E86 .1 HYPOVOLEMIA 07/19/2018 JOHN VILLALPANDO MD, Ot E87 .2 ACIDOSIS 07/19/2018 JOHN VILLALPANDO MD, Ot E87 .6 HYPOKALEMIA 07/19/2018 JOHN VILLALPANDO MD, Ot F17.210 NICOTINE DEPENDENCE, CIGARETTES, UNCOMPL 07/19/2018 JOHN VILALLPANDO MD, Ot F32 .9 MAJOR DEPRESSIVE DISORDER, SINGLE EPISOD 07/19/2018 JOHN VILLALPANDO MD, Ot F43.10 POST-TRAUMATIC STRESS DISORDER, UNSPECIF 07/19/2018 JOHN VILLALPANDO MD Ot H57.89 OTHER SPECIFIED DISORDERS OF EYE AND ADN 07/19/2018 JOHN VILLALPANDO MD, Ot I10 ESSENTIAL (PRIMARY) HYPERTENSION 07/19/2018 JOHN VILLALPANDO MD Ot I87 .2 VENOUS INSUFFICIENCY (CHRONIC) (PERIPHER 07/19/2018 JOHN VILLALPANDO MD, Ot J44 .9 CHRONIC OBSTRUCTIVE PULMONARY DISEASE, U 07/19/2018 JOHN VILLALPANDO MD, Ot K21 .0 GASTRO-ESOPHAGEAL REFLUX DISEASE WITH ES 07/19/2018 JOHN VILLALPANDO MD, Ot K26 .4 CHRONIC OR UNSPECIFIED DUODENAL ULCER [place] 07/19/2018 JOHN VILLALPANDO MD Ot K29.71 GASTRITIS, UNSPECIFIED, WITH BLEEDING 07/19/2018 JOHN VILLALPANDO MD Ot K44 .9 DIAPHRAGMATIC HERNIA WITHOUT OBSTRUCTION 07/19/2018 JOHN VILLALPANDO MD, Ot K58 .1 IRRITABLE BOWEL SYNDROME WITH CONSTIPATI 07/19/2018 JOHN VILLALPANDO MD Ot M21.371 FOOT DROP, RIGHT FOOT 07/19/2018 JOHN VILLALPANDO MD, Ot M47 .9 SPONDYLOSIS, UNSPECIFIED 07/19/2018 JOHN VILLALPANDO MD, Ot N17 .9 ACUTE KIDNEY FAILURE, UNSPECIFIED 07/19/2018 JOHN VILLALPANDO MD, Ot N40 .1 BENIGN PROSTATIC HYPERPLASIA WITH LOWER 07/19/2018 JOHN VILLALPANDO MD Ot R33 .8 OTHER RETENTION OF URINE 07/19/2018 JOHN VILLALPANDO MD Ot R53 .1 WEAKNESS 07/19/2018 JOHN VILLALPANDO MD Ot R63 .0 ANOREXIA 07/19/2018 JOHN VILLALPANDO MD Ot Z66 DO NOT RESUSCITATE 07/19/2018 JOHN VILLALPANDO MD, Ot Z79.82 DETENTION (CURRENT) USE OF ASPIRIN 07/19/2018 JOHN VILLALPANDO MD Ot D62 ACUTE POSTHEMORRHAGIC ANEMIA 07/19/2018 JOHN VILLALPANDO MD, Ot D72.829 ELEVATED WHITE BLOOD CELL COUNT, UNSPECI 07/19/2018 JOHN VILLALPANDO MD Ot E11.65 TYPE 2 DIABETES MELLITUS WITH HYPERGLYCE 07/19/2018 JOHN VILLALPANDO MD Ot E86 .1 HYPOVOLEMIA 07/19/2018 JOHN VILLALPANDO MD, Ot E87 .2 ACIDOSIS 07/19/2018 JOHN VILLALPANDO MD Ot E87 .6 HYPOKALEMIA 07/19/2018 JOHN VILLALPANDO MD Ot F17.210 NICOTINE DEPENDENCE, CIGARETTES, UNCOMPL 07/19/2018 JOHN VILLALPANDO MD Ot F32 .9 MAJOR DEPRESSIVE DISORDER, SINGLE EPISOD 07/19/2018 JOHN VILLALPANDO MD, Ot F43.10 POST-TRAUMATIC STRESS DISORDER, UNSPECIF 07/19/2018 JOHN VILLALPANDO MD, Ot H57.89 OTHER SPECIFIED DISORDERS OF EYE AND ADN 07/19/2018 JOHN VILLALPANDO MD, Ot I10 ESSENTIAL (PRIMARY) HYPERTENSION 07/19/2018 JOHN VILLALPANDO MD, Ot I87 .2 VENOUS INSUFFICIENCY (CHRONIC) (PERIPHER 07/19/2018 JOHN VILLALPANDO MD, Ot J44 .9 CHRONIC OBSTRUCTIVE PULMONARY DISEASE, U 07/19/2018 JOHN VILLALPANDO MD, Ot K21 .0 GASTRO-ESOPHAGEAL REFLUX DISEASE WITH ES 07/19/2018 JOHN VILLALPANDO MD, Ot K26 .4 CHRONIC OR UNSPECIFIED DUODENAL ULCER WI 07/19/2018 JOHN VILLALPANDO MD, Ot K29.71 GASTRITIS, UNSPECIFIED, WITH BLEEDING 07/19/2018 JOHN VILLALPANDO MD, Ot K44 .9 DIAPHRAGMATIC HERNIA WITHOUT OBSTRUCTION 07/19/2018 JOHN VILLALPANDO MD, Ot K58 .1 IRRITABLE BOWEL SYNDROME WITH CONSTIPATI 07/19/2018 JOHN VILLALPANDO MD, Ot M21.371 FOOT DROP, RIGHT FOOT 07/19/2018 JOHN VILLALPANDO MD, Ot M47 .9 SPONDYLOSIS, UNSPECIFIED 07/19/2018 JOHN VILLALPANDO MD, Ot N17 .9 ACUTE KIDNEY FAILURE, UNSPECIFIED 07/19/2018 JOHN VILLALPANDO MD, Ot N40 .1 BENIGN PROSTATIC HYPERPLASIA WITH LOWER 07/19/2018 JOHN VILLALPANDO MD, Ot R33 .8 OTHER RETENTION OF URINE 07/19/2018 JOHN VILLALPANDO MD, Ot R53 .1 WEAKNESS 07/19/2018 JOHN VILLALPANDO MD, Ot R63 .0 ANOREXIA 07/19/2018 JOHN VILLALPANDO MD, Ot Z66 DO NOT RESUSCITATE 07/19/2018 JOHN VILLALPANDO MD, Ot Z79.82 INSPECTOR FABRIC (CURRENT) USE OF ASPIRIN 07/19/2018 JOHN VILLALPANDO MD Ot D62 ACUTE POSTHEMORRHAGIC ANEMIA 07/19/2018 JOHN VILLALPANDO MD, Ot D72.829 ELEVATED WHITE BLOOD CELL COUNT, UNSPECI 07/19/2018 JOHN VILLALPANDO MD, Ot E11.65 TYPE 2 DIABETES MELLITUS WITH HYPERGLYCE 07/19/2018 JOHN VILLALPANDO MD, Ot E86 .1 HYPOVOLEMIA 07/19/2018 JOHN VILLALPANDO MD, Ot E87 .2 ACIDOSIS 07/19/2018 JOHN VILLALPANDO MD, Ot E87 .6 HYPOKALEMIA 07/19/2018 JOHN VILLALPANDO MD Ot F17.210 NICOTINE DEPENDENCE, CIGARETTES, UNCOMPL 07/19/2018 JOHN VILLALPANDO MD, Ot F32 .9 MAJOR DEPRESSIVE DISORDER, SINGLE EPISOD 07/19/2018 JOHN VILLALPANDO MD, Ot F43.10 POST-TRAUMATIC STRESS DISORDER, UNSPECIF 07/19/2018 JOHN VILLALPANDO MD, Ot H57.89 OTHER SPECIFIED DISORDERS OF EYE AND ADN 07/19/2018 JOHN VILLALPANDO MD, Ot I10 ESSENTIAL (PRIMARY) HYPERTENSION 07/19/2018 JOHN VILLALPANDO MD, Ot I87 .2 VENOUS INSUFFICIENCY (CHRONIC) (PERIPHER 07/19/2018 JOHN VILLALPANDO MD, Ot J44 .9 CHRONIC OBSTRUCTIVE PULMONARY DISEASE, U 07/19/2018 JOHN VILLALPANDO MD, Ot K21 .0 GASTRO-ESOPHAGEAL REFLUX DISEASE WITH ES 07/19/2018 JOHN VILLALPANDO MD, Ot K26 .4 CHRONIC OR UNSPECIFIED DUODENAL ULCER [place] 07/19/2018 JOHN VILLALPANDO MD, Ot K29.71 GASTRITIS, UNSPECIFIED, WITH BLEEDING 07/19/2018 JOHN VILLALPANDO MD, Ot K44 .9 DIAPHRAGMATIC HERNIA WITHOUT OBSTRUCTION 07/19/2018 JOHN VILLALPANDO MD, Ot K58 .1 IRRITABLE BOWEL SYNDROME WITH CONSTIPATI 07/19/2018 JOHN VILLALPANDO MD, Ot M21.371 FOOT DROP, RIGHT FOOT 07/19/2018 JOHN VILLALPANDO MD, Ot M47 .9 SPONDYLOSIS, UNSPECIFIED 07/19/2018 JOHN VILLALPANDO MD, Ot N17 .9 ACUTE KIDNEY FAILURE, UNSPECIFIED 07/19/2018 JOHN VILLALPANDO MD, Ot N40 .1 BENIGN PROSTATIC HYPERPLASIA WITH LOWER 07/19/2018 JOHN VILLALPANDO MD Ot R33 .8 OTHER RETENTION OF URINE 07/19/2018 KWASIJOHN CORTEZ MD, Ot R53 .1 WEAKNESS 07/19/2018 JOHN VILLALPANDO MD, Ot R63 .0 ANOREXIA 07/19/2018 JOHN VILLALPANDO MD, Ot Z66 DO NOT RESUSCITATE 07/19/2018 JOHN VILLALPANDO MD, Ot Z79.82 INSPECTOR FABRIC (CURRENT) USE OF ASPIRIN 07/20/2018 JOHN VILLALPANDO MD Ot D62 ACUTE POSTHEMORRHAGIC ANEMIA 07/20/2018 JOHN VILLALPANDO MD, Ot D72.829 ELEVATED WHITE BLOOD CELL COUNT, UNSPECI 07/20/2018 JOHN VILLALPANDO MD, Ot E11.65 TYPE 2 DIABETES MELLITUS WITH HYPERGLYCE 07/20/2018 JOHN VILLALPANDO MD, Ot E86 .1 HYPOVOLEMIA 07/20/2018 JOHN VILLALPANDO MD, Ot E87 .2 ACIDOSIS 07/20/2018 JOHN VILLALPANDO MD, Ot E87 .6 HYPOKALEMIA 07/20/2018 JOHN VILLALPANDO MD, Ot F17.210 NICOTINE DEPENDENCE, CIGARETTES, UNCOMPL 07/20/2018 JOHN VILLALPANDO MD, Ot F32 .9 MAJOR DEPRESSIVE DISORDER, SINGLE EPISOD 07/20/2018 JOHN VILLALPANDO MD, Ot F43.10 POST-TRAUMATIC STRESS DISORDER, UNSPECIF 07/20/2018 JOHN VILLALPANDO MD, Ot H57.89 OTHER SPECIFIED DISORDERS OF EYE AND ADN 07/20/2018 JOHN VILLALPANDO MD, Ot I10 ESSENTIAL (PRIMARY) HYPERTENSION 07/20/2018 JOHN VILLALPANDO MD, Ot I87 .2 VENOUS INSUFFICIENCY (CHRONIC) (PERIPHER 07/20/2018 JOHN VILLALPANDO MD, Ot J44 .9 CHRONIC OBSTRUCTIVE PULMONARY DISEASE, U 07/20/2018 JOHN VILLALPANDO MD, Ot K21 .0 GASTRO-ESOPHAGEAL REFLUX DISEASE WITH ES 07/20/2018 JOHN VILLALPANDO MD, Ot K26 .4 CHRONIC OR UNSPECIFIED DUODENAL ULCER [place] 07/20/2018 JOHN VILLALPANDO MD, Ot K29.71 GASTRITIS, UNSPECIFIED, WITH BLEEDING 07/20/2018 JOHN VILLALPANDO MD, Ot K44 .9 DIAPHRAGMATIC HERNIA WITHOUT OBSTRUCTION 07/20/2018 JOHN VILLALPANDO MD, Ot K58 .1 IRRITABLE BOWEL SYNDROME WITH CONSTIPATI 07/20/2018 JOHN VILLALPANDO MD Ot M21.371 FOOT DROP, RIGHT FOOT 07/20/2018 JOHN VILLALPANDO MD, Ot M47 .9 SPONDYLOSIS, UNSPECIFIED 07/20/2018 JOHN VILLALPANDO MD, Ot N17 .9 ACUTE KIDNEY FAILURE, UNSPECIFIED 07/20/2018 JOHN VILLALPANDO MD, Ot N40 .1 BENIGN PROSTATIC HYPERPLASIA WITH LOWER 07/20/2018 JOHN VILLALPANDO MD Ot R33 .8 OTHER RETENTION OF URINE 07/20/2018 JOHN VILLALPANDO MD, Ot R53 .1 WEAKNESS 07/20/2018 JOHN VILLALPANDO MD, Ot R63 .0 ANOREXIA 07/20/2018 JOHN VILLALPANDO MD, Ot Z66 DO NOT RESUSCITATE 07/20/2018 JOHN VILLALPANDO MD, Ot Z79.82 DETENTION (CURRENT) USE OF ASPIRIN 07/21/2018 JOHN VILLALPANDO MD, Ot D62 ACUTE POSTHEMORRHAGIC ANEMIA 07/21/2018 JOHN VILLALPANDO MD, Ot D72.829 ELEVATED WHITE BLOOD CELL COUNT, UNSPECI 07/21/2018 JOHN VILLALPANDO MD, Ot E11.65 TYPE 2 DIABETES MELLITUS WITH HYPERGLYCE 07/21/2018 JOHN VILLALPANDO MD, Ot E86 .1 HYPOVOLEMIA 07/21/2018 JOHN VILLALPANDO MD, Ot E87 .2 ACIDOSIS 07/21/2018 JOHN VILLALPANDO MD, Ot E87 .6 HYPOKALEMIA 07/21/2018 JOHN VILLALPANDO MD Ot F17.210 NICOTINE DEPENDENCE, CIGARETTES, UNCOMPL 07/21/2018 JOHN VILLALPANDO MD Ot F32 .9 MAJOR DEPRESSIVE DISORDER, SINGLE EPISOD 07/21/2018 JOHN VILLALPANDO MD, Ot F43.10 POST-TRAUMATIC STRESS DISORDER, UNSPECIF 07/21/2018 JOHN VILLALPANDO MD, Ot H57.89 OTHER SPECIFIED DISORDERS OF EYE AND ADN 07/21/2018 JOHN VILLALPANDO MD, Ot I10 ESSENTIAL (PRIMARY) HYPERTENSION 07/21/2018 JOHN VILLALPANDO MD Ot I87 .2 VENOUS INSUFFICIENCY (CHRONIC) (PERIPHER 07/21/2018 KWASI MD, JOHN N Ot J44 .9 CHRONIC OBSTRUCTIVE PULMONARY DISEASE, U 07/21/2018 JOHN VILLALPANDO MD, Ot K21 .0 GASTRO-ESOPHAGEAL REFLUX DISEASE WITH ES 07/21/2018 JOHN VILLALPANDO MD, Ot K26 .4 CHRONIC OR UNSPECIFIED DUODENAL ULCER [place] 07/21/2018 JOHN VILLALPANDO MD Ot K29.71 GASTRITIS, UNSPECIFIED, WITH BLEEDING 07/21/2018 JOHN VILLALPANDO MD, Ot K44 .9 DIAPHRAGMATIC HERNIA WITHOUT OBSTRUCTION 07/21/2018 JOHN VILLALPANDO MD, Ot K58 .1 IRRITABLE BOWEL SYNDROME WITH CONSTIPATI 07/21/2018 JOHN VILLALPANDO MD Ot M21.371 FOOT DROP, RIGHT FOOT 07/21/2018 JOHN VILLALPANDO MD, Ot M47 .9 SPONDYLOSIS, UNSPECIFIED 07/21/2018 JOHN VILLALPANDO MD, Ot N17 .9 ACUTE KIDNEY FAILURE, UNSPECIFIED 07/21/2018 JOHN VILLALPANDO MD, Ot N40 .1 BENIGN PROSTATIC HYPERPLASIA WITH LOWER 07/21/2018 JOHN VILLALPANDO MD Ot R33 .8 OTHER RETENTION OF URINE 07/21/2018 JOHN VILLALPANDO MD Ot R53 .1 WEAKNESS 07/21/2018 JOHN VILLALPANDO MD Ot R63 .0 ANOREXIA 07/21/2018 JOHN VILLALPANDO MD, Ot Z66 DO NOT RESUSCITATE 07/21/2018 JOHN VILLALPANDO MD, Ot Z79.82 INSPECTOR FABRIC (CURRENT) USE OF ASPIRIN 07/21/2018 JOHN VILLALPANDO MD Ot D62 ACUTE POSTHEMORRHAGIC ANEMIA 07/21/2018 JOHN VILLALPANDO MD, Ot D72.829 ELEVATED WHITE BLOOD CELL COUNT, UNSPECI 07/21/2018 JOHN VILLALPANDO MD, Ot E11.65 TYPE 2 DIABETES MELLITUS WITH HYPERGLYCE 07/21/2018 JOHN VILLALPANDO MD, Ot E86 .1 HYPOVOLEMIA 07/21/2018 JOHN VILLALPANDO MD Ot E87 .2 ACIDOSIS 07/21/2018 JOHN VILLALPANDO MD Ot E87 .6 HYPOKALEMIA 07/21/2018 JOHN VILLALPANDO MD Ot F17.210 NICOTINE DEPENDENCE, CIGARETTES, UNCOMPL 07/21/2018 KWASIJOHN CORTEZ MD, Ot F32 .9 MAJOR DEPRESSIVE DISORDER, SINGLE EPISOD 07/21/2018 JOHN VILLALPANDO MD, Ot F43.10 POST-TRAUMATIC STRESS DISORDER, UNSPECIF 07/21/2018 JOHN VILLALPANDO MD, Ot H57.89 OTHER SPECIFIED DISORDERS OF EYE AND ADN 07/21/2018 JOHN VILLALPANDO MD Ot I10 ESSENTIAL (PRIMARY) HYPERTENSION 07/21/2018 JOHN VILLALPANDO MD Ot I87 .2 VENOUS INSUFFICIENCY (CHRONIC) (PERIPHER 07/21/2018 JOHN VILLALPANDO MD, Ot J44 .9 CHRONIC OBSTRUCTIVE PULMONARY DISEASE, U 07/21/2018 JOHN VILLALPANDO MD, Ot K21 .0 GASTRO-ESOPHAGEAL REFLUX DISEASE WITH ES 07/21/2018 JOHN VILLALPANDO MD, Ot K26 .4 CHRONIC OR UNSPECIFIED DUODENAL ULCER [place] 07/21/2018 JOHN VILLALPANDO MD, Ot K29.71 GASTRITIS, UNSPECIFIED, WITH BLEEDING 07/21/2018 JOHN VILLALPANDO MD, Ot K44 .9 DIAPHRAGMATIC HERNIA WITHOUT OBSTRUCTION 07/21/2018 JOHN VILLALPANDO MD, Ot K58 .1 IRRITABLE BOWEL SYNDROME WITH CONSTIPATI 07/21/2018 JOHN VILLALPANDO MD, Ot M21.371 FOOT DROP, RIGHT FOOT 07/21/2018 JOHN VILLALPANDO MD, Ot M47 .9 SPONDYLOSIS, UNSPECIFIED 07/21/2018 JOHN VILLALPANDO MD, Ot N17 .9 ACUTE KIDNEY FAILURE, UNSPECIFIED 07/21/2018 JOHN VILLALPANDO MD, Ot N40 .1 BENIGN PROSTATIC HYPERPLASIA WITH LOWER 07/21/2018 JOHN VILLALPANDO MD Ot R33 .8 OTHER RETENTION OF URINE 07/21/2018 JOHN VILLALPANDO MD Ot R53 .1 WEAKNESS 07/21/2018 JOHN VILLALPANDO MD Ot R63 .0 ANOREXIA 07/21/2018 JOHN VILLALPANDO MD, Ot Z66 DO NOT RESUSCITATE 07/21/2018 JOHN VILLALPANDO MD, Ot Z79.82 INSPECTOR FABRIC (CURRENT) USE OF ASPIRIN 07/22/2018 JOHN VILLALPANDO MD Ot D62 ACUTE POSTHEMORRHAGIC ANEMIA 07/22/2018 JOHN VILLALPANDO MD, Ot D72.829 ELEVATED WHITE BLOOD CELL COUNT, UNSPECI 07/22/2018 JOHN VILLALPANDO MD Ot E11.65 TYPE 2 DIABETES MELLITUS WITH HYPERGLYCE 07/22/2018 JOHN VILLALPANDO MD, Ot E86 .1 HYPOVOLEMIA 07/22/2018 JOHN VILLALPANDO MD Ot E87 .2 ACIDOSIS 07/22/2018 JOHN VILLALPANDO MD, Ot E87 .6 HYPOKALEMIA 07/22/2018 JOHN VILLALPANDO MD Ot F17.210 NICOTINE DEPENDENCE, CIGARETTES, UNCOMPL 07/22/2018 JOHN VILLALPANDO MD, Ot F32 .9 MAJOR DEPRESSIVE DISORDER, SINGLE EPISOD 07/22/2018 JOHN VILLALPANDO MD, Ot F43.10 POST-TRAUMATIC STRESS DISORDER, UNSPECIF 07/22/2018 JOHN VILLALPANDO MD, Ot H57.89 OTHER SPECIFIED DISORDERS OF EYE AND ADN 07/22/2018 JOHN VILLALPANDO MD, Ot I10 ESSENTIAL (PRIMARY) HYPERTENSION 07/22/2018 JOHN VILLALPANDO MD Ot I87 .2 VENOUS INSUFFICIENCY (CHRONIC) (PERIPHER 07/22/2018 JOHN VILLALPANDO MD, Ot J44 .9 CHRONIC OBSTRUCTIVE PULMONARY DISEASE, U 07/22/2018 JOHN VILLALPANDO MD, Ot K21 .0 GASTRO-ESOPHAGEAL REFLUX DISEASE WITH ES 07/22/2018 JOHN VILLALPANDO MD Ot K26 .4 CHRONIC OR UNSPECIFIED DUODENAL ULCER [place] 07/22/2018 JOHN VILLALPANDO MD Ot K29.71 GASTRITIS, UNSPECIFIED, WITH BLEEDING 07/22/2018 JOHN VILLALPANDO MD Ot K44 .9 DIAPHRAGMATIC HERNIA WITHOUT OBSTRUCTION 07/22/2018 JOHN VILLALPANDO MD Ot K58 .1 IRRITABLE BOWEL SYNDROME WITH CONSTIPATI 07/22/2018 JOHN VILLALPANDO MD Ot M21.371 FOOT DROP, RIGHT FOOT 07/22/2018 JOHN VILLALPANDO MD Ot M47 .9 SPONDYLOSIS, UNSPECIFIED 07/22/2018 JOHN VILLALPANDO MD Ot N17 .9 ACUTE KIDNEY FAILURE, UNSPECIFIED 07/22/2018 JOHN VILLALPANDO MD Ot N40 .1 BENIGN PROSTATIC HYPERPLASIA WITH LOWER 07/22/2018 JOHN VILLALPANDO MD Ot R33 .8 OTHER RETENTION OF URINE 07/22/2018 JOHN VILLALPANDO MD Ot R53 .1 WEAKNESS 07/22/2018 JOHN VILLALPANDO MD, Ot R63 .0 ANOREXIA 07/22/2018 JOHN VILLALPANDO MD, Ot Z66 DO NOT RESUSCITATE 07/22/2018 JOHN VILLALPANDO MD, Ot Z79.82 INSPECTOR FABRIC (CURRENT) USE OF ASPIRIN 07/23/2018 JOHN VILLALPANDO MD Ot D62 ACUTE POSTHEMORRHAGIC ANEMIA 07/23/2018 JOHN VILLALPANDO MD, Ot D72.829 ELEVATED WHITE BLOOD CELL COUNT, UNSPECI 07/23/2018 JOHN VILLALPANDO MD Ot E11.65 TYPE 2 DIABETES MELLITUS WITH HYPERGLYCE 07/23/2018 JOHN VILLALPANDO MD Ot E86 .1 HYPOVOLEMIA 07/23/2018 JOHN VILLALPANDO MD, Ot E87 .2 ACIDOSIS 07/23/2018 JOHN VILLALPANDO MD Ot E87 .6 HYPOKALEMIA 07/23/2018 JOHN VILLALPANDO MD Ot F17.210 NICOTINE DEPENDENCE, CIGARETTES, UNCOMPL 07/23/2018 JOHN VILLALPANDO MD Ot F32 .9 MAJOR DEPRESSIVE DISORDER, SINGLE EPISOD 07/23/2018 JOHN VILLALPANDO MD Ot F43.10 POST-TRAUMATIC STRESS DISORDER, UNSPECIF 07/23/2018 JOHN VILLALPANDO MD Ot H57.89 OTHER SPECIFIED DISORDERS OF EYE AND ADN 07/23/2018 JOHN VILLALPANDO MD Ot I10 ESSENTIAL (PRIMARY) HYPERTENSION 07/23/2018 JOHN VILLALPANDO MD Ot I87 .2 VENOUS INSUFFICIENCY (CHRONIC) (PERIPHER 07/23/2018 JOHN VILLALPANDO MD, Ot J44 .9 CHRONIC OBSTRUCTIVE PULMONARY DISEASE, U 07/23/2018 JOHN VILLALPANDO MD, Ot K21 .0 GASTRO-ESOPHAGEAL REFLUX DISEASE WITH ES 07/23/2018 JOHN VILLALPANDO MD Ot K26 .4 CHRONIC OR UNSPECIFIED DUODENAL ULCER [place] 07/23/2018 JOHN VILLALPANDO MD Ot K29.71 GASTRITIS, UNSPECIFIED, WITH BLEEDING 07/23/2018 JOHN VILLALPANDO MD Ot K44 .9 DIAPHRAGMATIC HERNIA WITHOUT OBSTRUCTION 07/23/2018 KWASIJOHN CORTEZ MD, Ot K58 .1 IRRITABLE BOWEL SYNDROME WITH CONSTIPATI 07/23/2018 JOHN VILLALPANDO MD, Ot M21.371 FOOT DROP, RIGHT FOOT 07/23/2018 JOHN VILLALPANDO MD, Ot M47 .9 SPONDYLOSIS, UNSPECIFIED 07/23/2018 JOHN VILLALPANDO MD, Ot N17 .9 ACUTE KIDNEY FAILURE, UNSPECIFIED 07/23/2018 JOHN VILLALPANDO MD, Ot N40 .1 BENIGN PROSTATIC HYPERPLASIA WITH LOWER 07/23/2018 JOHN VILLALPANDO MD, Ot R33 .8 OTHER RETENTION OF URINE 07/23/2018 JOHN VILLALPANDO MD Ot R53 .1 WEAKNESS 07/23/2018 JOHN VILLALPANDO MD, Ot R63 .0 ANOREXIA 07/23/2018 JOHN VILLALPANDO MD, Ot Z66 DO NOT RESUSCITATE 07/23/2018 JOHN VILLALPANDO MD, Ot Z79.82 INSPECTOR FABRIC (CURRENT) USE OF ASPIRIN 07/23/2018 JOHN VILLALPANDO MD Ot D62 ACUTE POSTHEMORRHAGIC ANEMIA 07/23/2018 JOHN VILLALPANDO MD, Ot D72.829 ELEVATED WHITE BLOOD CELL COUNT, UNSPECI 07/23/2018 JOHN VILLALPANDO MD Ot E11.65 TYPE 2 DIABETES MELLITUS WITH HYPERGLYCE 07/23/2018 JOHN VILLALPANDO MD Ot E86 .1 HYPOVOLEMIA 07/23/2018 JOHN VILLALPANDO MD, Ot E87 .2 ACIDOSIS 07/23/2018 JOHN VILLALPANDO MD, Ot E87 .6 HYPOKALEMIA 07/23/2018 JOHN VILLALPANDO MD Ot F17.210 NICOTINE DEPENDENCE, CIGARETTES, UNCOMPL 07/23/2018 JOHN VILLALPANDO MD Ot F32 .9 MAJOR DEPRESSIVE DISORDER, SINGLE EPISOD 07/23/2018 JOHN VILLALPANDO MD Ot F43.10 POST-TRAUMATIC STRESS DISORDER, UNSPECIF 07/23/2018 JOHN VILLALPANDO MD Ot H57.89 OTHER SPECIFIED DISORDERS OF EYE AND ADN 07/23/2018 JOHN VILLALPANDO MD Ot I10 ESSENTIAL (PRIMARY) HYPERTENSION 07/23/2018 JOHN VILLALPANDO MD Ot I87 .2 VENOUS INSUFFICIENCY (CHRONIC) (PERIPHER 07/23/2018 JOHN VILLALPANDO MD, Ot J44 .9 CHRONIC OBSTRUCTIVE PULMONARY DISEASE, U 07/23/2018 JOHN VILLALPANDO MD, Ot K21 .0 GASTRO-ESOPHAGEAL REFLUX DISEASE WITH ES 07/23/2018 JOHN VILLALPANDO MD Ot K26 .4 CHRONIC OR UNSPECIFIED DUODENAL ULCER [place] 07/23/2018 JOHN VILLALPANDO MD Ot K29.71 GASTRITIS, UNSPECIFIED, WITH BLEEDING 07/23/2018 JOHN VILLALPANDO MD Ot K44 .9 DIAPHRAGMATIC HERNIA WITHOUT OBSTRUCTION 07/23/2018 JOHN VILLALPANDO MD Ot K58 .1 IRRITABLE BOWEL SYNDROME WITH CONSTIPATI 07/23/2018 JOHN VILLALPANDO MD Ot M21.371 FOOT DROP, RIGHT FOOT 07/23/2018 JOHN VILLALPANDO MD, Ot M47 .9 SPONDYLOSIS, UNSPECIFIED 07/23/2018 JOHN VILLALPANDO MD, Ot N17 .9 ACUTE KIDNEY FAILURE, UNSPECIFIED 07/23/2018 JOHN VILLALPANDO MD Ot N40 .1 BENIGN PROSTATIC HYPERPLASIA WITH LOWER 07/23/2018 JOHN VILLALPANDO MD Ot R33 .8 OTHER RETENTION OF URINE 07/23/2018 JOHN VILLALPANDO MD Ot R53 .1 WEAKNESS 07/23/2018 JOHN VILLALPANDO MD Ot R63 .0 ANOREXIA 07/23/2018 JOHN VILLALPANDO MD Ot Z66 DO NOT RESUSCITATE 07/23/2018 JOHN VILLALPANDO MD, Ot Z79.82 DETENTION (CURRENT) USE OF ASPIRIN 07/24/2018 JOHN VILLALPANDO MD Ot D62 ACUTE POSTHEMORRHAGIC ANEMIA 07/24/2018 JOHN VILLALPANDO MD Ot D72.829 ELEVATED WHITE BLOOD CELL COUNT, UNSPECI 07/24/2018 JOHN VILLALPANDO MD Ot E11.65 TYPE 2 DIABETES MELLITUS WITH HYPERGLYCE 07/24/2018 JOHN VILLALPANDO MD Ot E86 .1 HYPOVOLEMIA 07/24/2018 JOHN VILLALPANDO MD Ot E87 .2 ACIDOSIS 07/24/2018 JOHN VILLALPANDO MD Ot E87 .6 HYPOKALEMIA 07/24/2018 JOHN VILLALPANDO MD Ot F17.210 NICOTINE DEPENDENCE, CIGARETTES, UNCOMPL 07/24/2018 JOHN VILLALPANDO MD, Ot F32 .9 MAJOR DEPRESSIVE DISORDER, SINGLE EPISOD 07/24/2018 JOHN VILLALPANDO MD, Ot F43.10 POST-TRAUMATIC STRESS DISORDER, UNSPECIF 07/24/2018 JOHN VILLALPANDO MD, Ot H57.89 OTHER SPECIFIED DISORDERS OF EYE AND ADN 07/24/2018 JOHN VILLALPANDO MD, Ot I10 ESSENTIAL (PRIMARY) HYPERTENSION 07/24/2018 JOHN VILLALPANDO MD, Ot I87 .2 VENOUS INSUFFICIENCY (CHRONIC) (PERIPHER 07/24/2018 JOHN VILLALPANDO MD, Ot J44 .9 CHRONIC OBSTRUCTIVE PULMONARY DISEASE, U 07/24/2018 JOHN VILLALPANDO MD, Ot K21 .0 GASTRO-ESOPHAGEAL REFLUX DISEASE WITH ES 07/24/2018 JOHN VILLALPANDO MD, Ot K26 .4 CHRONIC OR UNSPECIFIED DUODENAL ULCER [place] 07/24/2018 JOHN VILLALPANDO MD Ot K29.71 GASTRITIS, UNSPECIFIED, WITH BLEEDING 07/24/2018 JOHN VILLALPANDO MD, Ot K44 .9 DIAPHRAGMATIC HERNIA WITHOUT OBSTRUCTION 07/24/2018 JOHN VILLALPANDO MD Ot K58 .1 IRRITABLE BOWEL SYNDROME WITH CONSTIPATI 07/24/2018 JOHN VILLALPANDO MD Ot M21.371 FOOT DROP, RIGHT FOOT 07/24/2018 JOHN VILLALPANDO MD, Ot M47 .9 SPONDYLOSIS, UNSPECIFIED 07/24/2018 JOHN VILLALPANDO MD, Ot N17 .9 ACUTE KIDNEY FAILURE, UNSPECIFIED 07/24/2018 JOHN VILLALPANDO MD, Ot N40 .1 BENIGN PROSTATIC HYPERPLASIA WITH LOWER 07/24/2018 JOHN VILLALPANDO MD Ot R33 .8 OTHER RETENTION OF URINE 07/24/2018 JOHN VILLALPANDO MD, Ot R53 .1 WEAKNESS 07/24/2018 JOHN VILLALPANDO MD, Ot R63 .0 ANOREXIA 07/24/2018 JOHN VILLALPANDO MD, Ot Z66 DO NOT RESUSCITATE 07/24/2018 JOHN VILLALPANDO MD, Ot Z79.82 DETENTION (CURRENT) USE OF ASPIRIN 07/25/2018 JOHN VILLALPANDO MD Ot D62 ACUTE POSTHEMORRHAGIC ANEMIA 07/25/2018 JOHN VILLALPANDO MD, Ot D72.829 ELEVATED WHITE BLOOD CELL COUNT, UNSPECI 07/25/2018 JOHN VILLALPANDO MD, Ot E11.65 TYPE 2 DIABETES MELLITUS WITH HYPERGLYCE 07/25/2018 JOHN VILLALPANDO MD, Ot E86 .1 HYPOVOLEMIA 07/25/2018 JOHN VILLALPANDO MD, Ot E87 .2 ACIDOSIS 07/25/2018 JOHN VILLALPANDO MD, Ot E87 .6 HYPOKALEMIA 07/25/2018 JOHN VILLALPANDO MD Ot F17.210 NICOTINE DEPENDENCE, CIGARETTES, UNCOMPL 07/25/2018 JOHN VILLALPANDO MD, Ot F32 .9 MAJOR DEPRESSIVE DISORDER, SINGLE EPISOD 07/25/2018 JOHN VILLALPANDO MD, Ot F43.10 POST-TRAUMATIC STRESS DISORDER, UNSPECIF 07/25/2018 JOHN VILLALPANDO MD, Ot H57.89 OTHER SPECIFIED DISORDERS OF EYE AND ADN 07/25/2018 JOHN VILLALPANDO MD, Ot I10 ESSENTIAL (PRIMARY) HYPERTENSION 07/25/2018 JOHN VILLALPANDO MD Ot I87 .2 VENOUS INSUFFICIENCY (CHRONIC) (PERIPHER 07/25/2018 JOHN VILLALPANDO MD, Ot J44 .9 CHRONIC OBSTRUCTIVE PULMONARY DISEASE, U 07/25/2018 JOHN VILLALPANDO MD, Ot K21 .0 GASTRO-ESOPHAGEAL REFLUX DISEASE WITH ES 07/25/2018 JOHN VILLALPANDO MD, Ot K26 .4 CHRONIC OR UNSPECIFIED DUODENAL ULCER [place] 07/25/2018 JOHN VILLALPANDO MD, Ot K29.71 GASTRITIS, UNSPECIFIED, WITH BLEEDING 07/25/2018 JOHN VILLALPANDO MD Ot K44 .9 DIAPHRAGMATIC HERNIA WITHOUT OBSTRUCTION 07/25/2018 JOHN VILLALPANDO MD Ot K58 .1 IRRITABLE BOWEL SYNDROME WITH CONSTIPATI 07/25/2018 JOHN VILLALPANDO MD Ot M21.371 FOOT DROP, RIGHT FOOT 07/25/2018 JOHN VILLALPANDO MD, Ot M47 .9 SPONDYLOSIS, UNSPECIFIED 07/25/2018 JOHN VILLALPANDO MD, Ot N17 .9 ACUTE KIDNEY FAILURE, UNSPECIFIED 07/25/2018 JOHN VILLALPANDO MD Ot N40 .1 BENIGN PROSTATIC HYPERPLASIA WITH LOWER 07/25/2018 JOHN VILLALPANDO MD, Ot R33 .8 OTHER RETENTION OF URINE 07/25/2018 JOHN VILLALPANDO MD, Ot R53 .1 WEAKNESS 07/25/2018 JOHN VILLALPANDO MD Ot R63 .0 ANOREXIA 07/25/2018 JOHN VILLALPANDO MD Ot Z66 DO NOT RESUSCITATE 07/25/2018 JOHN VILLALPANDO MD Ot Z79.82 INSPECTOR FABRIC (CURRENT) USE OF ASPIRIN 07/26/2018 JOHN VILLALPANDO MD Ot D62 ACUTE POSTHEMORRHAGIC ANEMIA 07/26/2018 JOHN VILLALPANDO MD, Ot D72.829 ELEVATED WHITE BLOOD CELL COUNT, UNSPECI 07/26/2018 JOHN VILLALPANDO MD Ot E11.65 TYPE 2 DIABETES MELLITUS WITH HYPERGLYCE 07/26/2018 JOHN VILLALPANDO MD Ot E86 .1 HYPOVOLEMIA 07/26/2018 JOHN VILLALPANDO MD Ot E87 .2 ACIDOSIS 07/26/2018 JOHN VILLALPANDO MD Ot E87 .6 HYPOKALEMIA 07/26/2018 JOHN VILLALPANDO MD Ot F17.210 NICOTINE DEPENDENCE, CIGARETTES, UNCOMPL 07/26/2018 JOHN VILLALPANDO MD Ot F32 .9 MAJOR DEPRESSIVE DISORDER, SINGLE EPISOD 07/26/2018 JOHN VILLALPANDO MD, Ot F43.10 POST-TRAUMATIC STRESS DISORDER, UNSPECIF 07/26/2018 JOHN VILLALPANDO MD Ot H57.89 OTHER SPECIFIED DISORDERS OF EYE AND ADN 07/26/2018 JOHN VILLALPANDO MD Ot I10 ESSENTIAL (PRIMARY) HYPERTENSION 07/26/2018 JOHN VILLALPANDO MD Ot I87 .2 VENOUS INSUFFICIENCY (CHRONIC) (PERIPHER 07/26/2018 JOHN VILLALPANDO MD Ot J44 .9 CHRONIC OBSTRUCTIVE PULMONARY DISEASE, U 07/26/2018 JOHN VILLALPANDO MD Ot K21 .0 GASTRO-ESOPHAGEAL REFLUX DISEASE WITH ES 07/26/2018 JOHN VILLALPANDO MD Ot K26 .4 CHRONIC OR UNSPECIFIED DUODENAL ULCER WI 07/26/2018 JOHN VILLALPANDO MD Ot K29.71 GASTRITIS, UNSPECIFIED, WITH BLEEDING 07/26/2018 JOHN VILLALPANDO MD Ot K44 .9 DIAPHRAGMATIC HERNIA WITHOUT OBSTRUCTION 07/26/2018 JOHN VILLALPANDO MD Ot K58 .1 IRRITABLE BOWEL SYNDROME WITH CONSTIPATI 07/26/2018 JOHN VILLALPANDO MD Ot M21.371 FOOT DROP, RIGHT FOOT 07/26/2018 JOHN VILLALPANDO MD Ot M47 .9 SPONDYLOSIS, UNSPECIFIED 07/26/2018 JOHN VILLALPANDO MD Ot N17 .9 ACUTE KIDNEY FAILURE, UNSPECIFIED 07/26/2018 JOHN VILLALPANDO MD Ot N40 .1 BENIGN PROSTATIC HYPERPLASIA WITH LOWER 07/26/2018 JOHN VILLALPANDO MD Ot R33 .8 OTHER RETENTION OF URINE 07/26/2018 JOHN VILLALPANDO MD Ot R53 .1 WEAKNESS 07/26/2018 JOHN VILLALPANDO MD Ot R63 .0 ANOREXIA 07/26/2018 JOHN VILLALPANDO MD, Ot Z66 DO NOT RESUSCITATE 07/26/2018 JOHN VILLALPANDO MD, Ot Z79.82 INSPECTOR FABRIC (CURRENT) USE OF ASPIRIN 07/26/2018 JOHN VILLALPANDO MD Ot D62 ACUTE POSTHEMORRHAGIC ANEMIA 07/26/2018 JOHN VILLALPANDO MD Ot D72.829 ELEVATED WHITE BLOOD CELL COUNT, UNSPECI 07/26/2018 JOHN VILLALPANDO MD Ot E11.65 TYPE 2 DIABETES MELLITUS WITH HYPERGLYCE 07/26/2018 JOHN VILLALPANDO MD Ot E86 .1 HYPOVOLEMIA 07/26/2018 JOHN VILLALPANDO MD Ot E87 .2 ACIDOSIS 07/26/2018 JOHN VILLALPANDO MD Ot E87 .6 HYPOKALEMIA 07/26/2018 JOHN VILLALPANDO MD Ot F17.210 NICOTINE DEPENDENCE, CIGARETTES, UNCOMPL 07/26/2018 JOHN VILLALPANDO MD Ot F32 .9 MAJOR DEPRESSIVE DISORDER, SINGLE EPISOD 07/26/2018 JOHN VILLALPANDO MD Ot F43.10 POST-TRAUMATIC STRESS DISORDER, UNSPECIF 07/26/2018 JOHN VILLALPANDO MD Ot H57.89 OTHER SPECIFIED DISORDERS OF EYE AND ADN 07/26/2018 JOHN VILLALPANDO MD Ot I10 ESSENTIAL (PRIMARY) HYPERTENSION 07/26/2018 JOHN VILLALPANDO MD Ot I87 .2 VENOUS INSUFFICIENCY (CHRONIC) (PERIPHER 07/26/2018 JOHN VILLALPANDO MD, Ot J44 .9 CHRONIC OBSTRUCTIVE PULMONARY DISEASE, U 07/26/2018 JOHN VILLALPANDO MD, Ot K21 .0 GASTRO-ESOPHAGEAL REFLUX DISEASE WITH ES 07/26/2018 JOHN VILLALPANDO MD Ot K26 .4 CHRONIC OR UNSPECIFIED DUODENAL ULCER [place] 07/26/2018 JOHN VILLALPANDO MD Ot K29.71 GASTRITIS, UNSPECIFIED, WITH BLEEDING 07/26/2018 JOHN VILLALPANDO MD, Ot K44 .9 DIAPHRAGMATIC HERNIA WITHOUT OBSTRUCTION 07/26/2018 JOHN VILLALPANDO MD Ot K58 .1 IRRITABLE BOWEL SYNDROME WITH CONSTIPATI 07/26/2018 JOHN VILLALPANDO MD, Ot M21.371 FOOT DROP, RIGHT FOOT 07/26/2018 JOHN VILLALPANDO MD, Ot M47 .9 SPONDYLOSIS, UNSPECIFIED 07/26/2018 JOHN VILLALPANDO MD, Ot N17 .9 ACUTE KIDNEY FAILURE, UNSPECIFIED 07/26/2018 JOHN VILLALPANDO MD, Ot N40 .1 BENIGN PROSTATIC HYPERPLASIA WITH LOWER 07/26/2018 JOHN VILLALPANDO MD Ot R33 .8 OTHER RETENTION OF URINE 07/26/2018 JOHN VILLALPANDO MD Ot R53 .1 WEAKNESS 07/26/2018 JOHN VILLALPANDO MD Ot R63 .0 ANOREXIA 07/26/2018 JOHN VILLALPANDO MD, Ot Z66 DO NOT RESUSCITATE 07/26/2018 JOHN VILLALPANDO MD, Ot Z79.82 DETENTION (CURRENT) USE OF ASPIRIN 07/27/2018 JOHN VILLALPANDO MD Ot D62 ACUTE POSTHEMORRHAGIC ANEMIA 07/27/2018 JOHN VILLALPANDO MD, Ot D72.829 ELEVATED WHITE BLOOD CELL COUNT, UNSPECI 07/27/2018 JOHN VILLALPANDO MD Ot E11.65 TYPE 2 DIABETES MELLITUS WITH HYPERGLYCE 07/27/2018 JOHN VILLALPANDO MD Ot E86 .1 HYPOVOLEMIA 07/27/2018 JOHN VILLALPANDO MD Ot E87 .2 ACIDOSIS 07/27/2018 JOHN VILLALPANDO MD Ot E87 .6 HYPOKALEMIA 07/27/2018 JOHN VILLALPANDO MD Ot F17.210 NICOTINE DEPENDENCE, CIGARETTES, UNCOMPL 07/27/2018 JOHN VILLALPANDO MD, Ot F32 .9 MAJOR DEPRESSIVE DISORDER, SINGLE EPISOD 07/27/2018 JOHN VILLALPANDO MD, Ot F43.10 POST-TRAUMATIC STRESS DISORDER, UNSPECIF 07/27/2018 JOHN VILLALPANDO MD Ot H57.89 OTHER SPECIFIED DISORDERS OF EYE AND ADN 07/27/2018 JOHN VILLALPANDO MD, Ot I10 ESSENTIAL (PRIMARY) HYPERTENSION 07/27/2018 JOHN VILLALPANDO MD Ot I87 .2 VENOUS INSUFFICIENCY (CHRONIC) (PERIPHER 07/27/2018 JOHN VILLALPANDO MD, Ot J44 .9 CHRONIC OBSTRUCTIVE PULMONARY DISEASE, U 07/27/2018 JOHN VILLALPANDO MD, Ot K21 .0 GASTRO-ESOPHAGEAL REFLUX DISEASE WITH ES 07/27/2018 JOHN VILLALPANDO MD, Ot K26 .4 CHRONIC OR UNSPECIFIED DUODENAL ULCER [place] 07/27/2018 JOHN VILLALPANDO MD Ot K29.71 GASTRITIS, UNSPECIFIED, WITH BLEEDING 07/27/2018 JOHN VILLALPANDO MD Ot K44 .9 DIAPHRAGMATIC HERNIA WITHOUT OBSTRUCTION 07/27/2018 JOHN VILLALPANDO MD Ot K58 .1 IRRITABLE BOWEL SYNDROME WITH CONSTIPATI 07/27/2018 JOHN VILLALPANDO MD Ot M21.371 FOOT DROP, RIGHT FOOT 07/27/2018 JOHN VILLALPANDO MD, Ot M47 .9 SPONDYLOSIS, UNSPECIFIED 07/27/2018 JOHN VILLALPANDO MD Ot N17 .9 ACUTE KIDNEY FAILURE, UNSPECIFIED 07/27/2018 JOHN VILLALPANDO MD Ot N40 .1 BENIGN PROSTATIC HYPERPLASIA WITH LOWER 07/27/2018 JOHN VILLALPANDO MD Ot R33 .8 OTHER RETENTION OF URINE 07/27/2018 OJHN VILLALPANDO MD Ot R53 .1 WEAKNESS 07/27/2018 JOHN VILLALPANDO MD Ot R63 .0 ANOREXIA 07/27/2018 JOHN VILLALPANDO MD, Ot Z66 DO NOT RESUSCITATE 07/27/2018 JOHN VILLALPANDO MD Ot Z79.82 INSPECTOR FABRIC (CURRENT) USE OF ASPIRIN 07/28/2018 JOHN VILLALPANDO MD Ot D62 ACUTE POSTHEMORRHAGIC ANEMIA 07/28/2018 JOHN VILLALPANDO MD, Ot D72.829 ELEVATED WHITE BLOOD CELL COUNT, UNSPECI 07/28/2018 JOHN VILLALPANDO MD, Ot E11.65 TYPE 2 DIABETES MELLITUS WITH HYPERGLYCE 07/28/2018 JOHN VILLALPANDO MD Ot E86 .1 HYPOVOLEMIA 07/28/2018 JOHN VILLALPANDO MD, Ot E87 .2 ACIDOSIS 07/28/2018 JOHN VILLALPANDO MD Ot E87 .6 HYPOKALEMIA 07/28/2018 JOHN VILLALPANDO MD Ot F17.210 NICOTINE DEPENDENCE, CIGARETTES, UNCOMPL 07/28/2018 JOHN VILLALPANDO MD, Ot F32 .9 MAJOR DEPRESSIVE DISORDER, SINGLE EPISOD 07/28/2018 JOHN VILLALPANDO MD, Ot F43.10 POST-TRAUMATIC STRESS DISORDER, UNSPECIF 07/28/2018 JOHN VILLALPANDO MD, Ot H57.89 OTHER SPECIFIED DISORDERS OF EYE AND ADN 07/28/2018 JOHN VILLALPANDO MD, Ot I10 ESSENTIAL (PRIMARY) HYPERTENSION 07/28/2018 JOHN VILLALPANDO MD Ot I87 .2 VENOUS INSUFFICIENCY (CHRONIC) (PERIPHER 07/28/2018 JOHN VILLALPANDO MD, Ot J44 .9 CHRONIC OBSTRUCTIVE PULMONARY DISEASE, U 07/28/2018 JOHN VILLALPANDO MD Ot K21 .0 GASTRO-ESOPHAGEAL REFLUX DISEASE WITH ES 07/28/2018 JOHN VILLALPANDO MD Ot K26 .4 CHRONIC OR UNSPECIFIED DUODENAL ULCER [place] 07/28/2018 JOHN VILLALPANDO MD Ot K29.71 GASTRITIS, UNSPECIFIED, WITH BLEEDING 07/28/2018 JOHN VILLALPANDO MD Ot K44 .9 DIAPHRAGMATIC HERNIA WITHOUT OBSTRUCTION 07/28/2018 JOHN VILLALPANDO MD Ot K58 .1 IRRITABLE BOWEL SYNDROME WITH CONSTIPATI 07/28/2018 JOHN VILLALPANDO MD Ot M21.371 FOOT DROP, RIGHT FOOT 07/28/2018 JOHN VILLALPANDO MD Ot M47 .9 SPONDYLOSIS, UNSPECIFIED 07/28/2018 JOHN VILLALPANDO MD Ot N17 .9 ACUTE KIDNEY FAILURE, UNSPECIFIED 07/28/2018 JOHN VILLALPANDO MD Ot N40 .1 BENIGN PROSTATIC HYPERPLASIA WITH LOWER 07/28/2018 JOHN VILLALPANDO MD Ot R33 .8 OTHER RETENTION OF URINE 07/28/2018 JOHN VILLALPANDO MD Ot R53 .1 WEAKNESS 07/28/2018 JOHN VILLALPANDO MD Ot R63 .0 ANOREXIA 07/28/2018 JOHN VILLALPANDO MD Ot Z66 DO NOT RESUSCITATE 07/28/2018 JOHN VILLALPANDO MD, Ot Z79.82 INSPECTOR FABRIC (CURRENT) USE OF ASPIRIN 07/29/2018 JOHN VILLALPANDO MD Ot D62 ACUTE POSTHEMORRHAGIC ANEMIA 07/29/2018 JOHN VILLALPANDO MD, Ot D72.829 ELEVATED WHITE BLOOD CELL COUNT, UNSPECI 07/29/2018 JOHN VILLALPANDO MD Ot E11.65 TYPE 2 DIABETES MELLITUS WITH HYPERGLYCE 07/29/2018 JOHN VILLALPANDO MD Ot E86 .1 HYPOVOLEMIA 07/29/2018 JOHN VILLALPANDO MD Ot E87 .2 ACIDOSIS 07/29/2018 JOHN VILLALPANDO MD Ot E87 .6 HYPOKALEMIA 07/29/2018 JOHN VILLALPANDO MD Ot F17.210 NICOTINE DEPENDENCE, CIGARETTES, UNCOMPL 07/29/2018 JOHN VILLALPANDO MD Ot F32 .9 MAJOR DEPRESSIVE DISORDER, SINGLE EPISOD 07/29/2018 JOHN VILLALPANDO MD Ot F43.10 POST-TRAUMATIC STRESS DISORDER, UNSPECIF 07/29/2018 JOHN VILLALPANDO MD Ot H57.89 OTHER SPECIFIED DISORDERS OF EYE AND ADN 07/29/2018 JOHN VILLALPANDO MD Ot I10 ESSENTIAL (PRIMARY) HYPERTENSION 07/29/2018 JOHN VILLALPANDO MD Ot I87 .2 VENOUS INSUFFICIENCY (CHRONIC) (PERIPHER 07/29/2018 JOHN VILLALPANDO MD, Ot J44 .9 CHRONIC OBSTRUCTIVE PULMONARY DISEASE, U 07/29/2018 JOHN VILLALPANDO MD Ot K21 .0 GASTRO-ESOPHAGEAL REFLUX DISEASE WITH ES 07/29/2018 JOHN VILLALPANDO MD Ot K26 .4 CHRONIC OR UNSPECIFIED DUODENAL ULCER [place] 07/29/2018 JOHN VILLALPANDO MD Ot K29.71 GASTRITIS, UNSPECIFIED, WITH BLEEDING 07/29/2018 KWASI MD, JOHN N Ot K44 .9 DIAPHRAGMATIC HERNIA WITHOUT OBSTRUCTION 07/29/2018 JOHN VILLALPANDO MD, Ot K58 .1 IRRITABLE BOWEL SYNDROME WITH CONSTIPATI 07/29/2018 JOHN VILLALPANDO MD, Ot M21.371 FOOT DROP, RIGHT FOOT 07/29/2018 JOHN VILLALPANDO MD, Ot M47 .9 SPONDYLOSIS, UNSPECIFIED 07/29/2018 JOHN VILLALPANDO MD Ot N17 .9 ACUTE KIDNEY FAILURE, UNSPECIFIED 07/29/2018 JOHN VILLALPANDO MD Ot N40 .1 BENIGN PROSTATIC HYPERPLASIA WITH LOWER 07/29/2018 JOHN VILLALPANDO MD Ot R33 .8 OTHER RETENTION OF URINE 07/29/2018 JOHN VILLALPANDO MD Ot R53 .1 WEAKNESS 07/29/2018 JOHN VILLALPANDO MD Ot R63 .0 ANOREXIA 07/29/2018 JOHN VILLALPANDO MD Ot Z66 DO NOT RESUSCITATE 07/29/2018 JOHN VILLALPANDO MD Ot Z79.82 INSPECTOR FABRIC (CURRENT) USE OF ASPIRIN 07/30/2018 JOHN VILLALPANDO MD Ot D62 ACUTE POSTHEMORRHAGIC ANEMIA 07/30/2018 JOHN VILLALPANDO MD, Ot D72.829 ELEVATED WHITE BLOOD CELL COUNT, UNSPECI 07/30/2018 JOHN VILLALPANDO MD Ot E11.65 TYPE 2 DIABETES MELLITUS WITH HYPERGLYCE 07/30/2018 JOHN VILLALPANDO MD Ot E86 .1 HYPOVOLEMIA 07/30/2018 JOHN VILLALPANDO MD Ot E87 .2 ACIDOSIS 07/30/2018 JOHN VILLALPANDO MD Ot E87 .6 HYPOKALEMIA 07/30/2018 JOHN VILLALPANDO MD Ot F17.210 NICOTINE DEPENDENCE, CIGARETTES, UNCOMPL 07/30/2018 JOHN VILLALPANDO MD Ot F32 .9 MAJOR DEPRESSIVE DISORDER, SINGLE EPISOD 07/30/2018 JOHN VILLALPANDO MD Ot F43.10 POST-TRAUMATIC STRESS DISORDER, UNSPECIF 07/30/2018 JOHN VILLALPANDO MD Ot H57.89 OTHER SPECIFIED DISORDERS OF EYE AND ADN 07/30/2018 JOHN VILLALPANDO MD Ot I10 ESSENTIAL (PRIMARY) HYPERTENSION 07/30/2018 JOHN VILLALPANDO MD, Ot I87 .2 VENOUS INSUFFICIENCY (CHRONIC) (PERIPHER 07/30/2018 JOHN VILLALPANDO MD, Ot J44 .9 CHRONIC OBSTRUCTIVE PULMONARY DISEASE, U 07/30/2018 JOHN VILLALPANDO MD, Ot K21 .0 GASTRO-ESOPHAGEAL REFLUX DISEASE WITH ES 07/30/2018 JOHN VILLALPANDO MD Ot K26 .4 CHRONIC OR UNSPECIFIED DUODENAL ULCER [place] 07/30/2018 JOHN VILLALPANDO MD Ot K29.71 GASTRITIS, UNSPECIFIED, WITH BLEEDING 07/30/2018 JOHN VILLALPANDO MD, Ot K44 .9 DIAPHRAGMATIC HERNIA WITHOUT OBSTRUCTION 07/30/2018 JOHN VILLALPANDO MD, Ot K58 .1 IRRITABLE BOWEL SYNDROME WITH CONSTIPATI 07/30/2018 JOHN VILLALPANDO MD, Ot M21.371 FOOT DROP, RIGHT FOOT 07/30/2018 JOHN VILLALPANDO MD, Ot M47 .9 SPONDYLOSIS, UNSPECIFIED 07/30/2018 JOHN VILLALPANDO MD, Ot N17 .9 ACUTE KIDNEY FAILURE, UNSPECIFIED 07/30/2018 JOHN VILLALPANDO MD Ot N40 .1 BENIGN PROSTATIC HYPERPLASIA WITH LOWER 07/30/2018 JOHN VILLALPANDO MD Ot R33 .8 OTHER RETENTION OF URINE 07/30/2018 JOHN VILLALPANDO MD Ot R53 .1 WEAKNESS 07/30/2018 JOHN VILLALPANDO MD, Ot R63 .0 ANOREXIA 07/30/2018 JOHN VILLALPANDO MD, Ot Z66 DO NOT RESUSCITATE 07/30/2018 JOHN VILLALPANDO MD, Ot Z79.82 INSPECTOR FABRIC (CURRENT) USE OF ASPIRIN 07/31/2018 JOHN VILLALPANDO MD Ot D62 ACUTE POSTHEMORRHAGIC ANEMIA 07/31/2018 JOHN VILLALPANDO MD, Ot D72.829 ELEVATED WHITE BLOOD CELL COUNT, UNSPECI 07/31/2018 JOHN VILLALPANDO MD, Ot E11.65 TYPE 2 DIABETES MELLITUS WITH HYPERGLYCE 07/31/2018 JOHN VILLALPANDO MD, Ot E86 .1 HYPOVOLEMIA 07/31/2018 JOHN VILLALPANDO MD Ot E87 .2 ACIDOSIS 07/31/2018 JOHN VILLALPANDO MD Ot E87 .6 HYPOKALEMIA 07/31/2018 JOHN VILLALPANDO MD Ot F17.210 NICOTINE DEPENDENCE, CIGARETTES, UNCOMPL 07/31/2018 JOHN VILLALPANDO MD Ot F32 .9 MAJOR DEPRESSIVE DISORDER, SINGLE EPISOD 07/31/2018 JOHN VILLALPANDO MD, Ot F43.10 POST-TRAUMATIC STRESS DISORDER, UNSPECIF 07/31/2018 JOHN VILLALPANDO MD, Ot H57.89 OTHER SPECIFIED DISORDERS OF EYE AND ADN 07/31/2018 JOHN VILLALPANDO MD, Ot I10 ESSENTIAL (PRIMARY) HYPERTENSION 07/31/2018 JOHN VILLALPANDO MD, Ot I87 .2 VENOUS INSUFFICIENCY (CHRONIC) (PERIPHER 07/31/2018 JOHN VILLALPANDO MD, Ot J44 .9 CHRONIC OBSTRUCTIVE PULMONARY DISEASE, U 07/31/2018 JOHN VILLALPANDO MD, Ot K21 .0 GASTRO-ESOPHAGEAL REFLUX DISEASE WITH ES 07/31/2018 JOHN VILLALPANDO MD Ot K26 .4 CHRONIC OR UNSPECIFIED DUODENAL ULCER [place] 07/31/2018 JOHN VILLALPANDO MD Ot K29.71 GASTRITIS, UNSPECIFIED, WITH BLEEDING 07/31/2018 JOHN VILLALPANDO MD Ot K44 .9 DIAPHRAGMATIC HERNIA WITHOUT OBSTRUCTION 07/31/2018 JOHN VILLALPANDO MD Ot K58 .1 IRRITABLE BOWEL SYNDROME WITH CONSTIPATI 07/31/2018 JOHN VILLALPANDO MD Ot M21.371 FOOT DROP, RIGHT FOOT 07/31/2018 JOHN VILLALPANDO MD, Ot M47 .9 SPONDYLOSIS, UNSPECIFIED 07/31/2018 JOHN VILLALPANDO MD, Ot N17 .9 ACUTE KIDNEY FAILURE, UNSPECIFIED 07/31/2018 JOHN VILLALPANDO MD Ot N40 .1 BENIGN PROSTATIC HYPERPLASIA WITH LOWER 07/31/2018 JOHN VILLALPANDO MD Ot R33 .8 OTHER RETENTION OF URINE 07/31/2018 JOHN VILLALPANDO MD Ot R53 .1 WEAKNESS 07/31/2018 JOHN VILLALPANDO MD Ot R63 .0 ANOREXIA 07/31/2018 JOHN VILLALPANDO MD Ot Z66 DO NOT RESUSCITATE 07/31/2018 JOHN VILLALPANDO MD, Ot Z79.82 DETENTION (CURRENT) USE OF ASPIRIN 07/31/2018 JOHN VILLALPANDO MD Ot D62 ACUTE POSTHEMORRHAGIC ANEMIA 07/31/2018 JOHN VILLALPANDO MD, Ot D72.829 ELEVATED WHITE BLOOD CELL COUNT, UNSPECI 07/31/2018 JOHN VILLALPANDO MD, Ot E11.65 TYPE 2 DIABETES MELLITUS WITH HYPERGLYCE 07/31/2018 JOHN VILLALPANDO MD Ot E86 .1 HYPOVOLEMIA 07/31/2018 JOHN VILLALPANDO MD Ot E87 .2 ACIDOSIS 07/31/2018 JOHN VILLALPANDO MD, Ot E87 .6 HYPOKALEMIA 07/31/2018 JOHN VILLALPANDO MD Ot F17.210 NICOTINE DEPENDENCE, CIGARETTES, UNCOMPL 07/31/2018 JOHN VILLALPANDO MD, Ot F32 .9 MAJOR DEPRESSIVE DISORDER, SINGLE EPISOD 07/31/2018 JOHN VILLALPANDO MD, Ot F43.10 POST-TRAUMATIC STRESS DISORDER, UNSPECIF 07/31/2018 JOHN VILLALPANDO MD, Ot H57.89 OTHER SPECIFIED DISORDERS OF EYE AND ADN 07/31/2018 JOHN VILLALPANDO MD Ot I10 ESSENTIAL (PRIMARY) HYPERTENSION 07/31/2018 JOHN VILLALPANDO MD Ot I87 .2 VENOUS INSUFFICIENCY (CHRONIC) (PERIPHER 07/31/2018 JOHN VILLALPANDO MD, Ot J44 .9 CHRONIC OBSTRUCTIVE PULMONARY DISEASE, U 07/31/2018 JOHN VILLALPANDO MD, Ot K21 .0 GASTRO-ESOPHAGEAL REFLUX DISEASE WITH ES 07/31/2018 JOHN VILLALPANDO MD, Ot K26 .4 CHRONIC OR UNSPECIFIED DUODENAL ULCER [place] 07/31/2018 JOHN VILLALPANDO MD, Ot K29.71 GASTRITIS, UNSPECIFIED, WITH BLEEDING 07/31/2018 JOHN VILLALPANDO MD, Ot K44 .9 DIAPHRAGMATIC HERNIA WITHOUT OBSTRUCTION 07/31/2018 JOHN VILLALPANDO MD, Ot K58 .1 IRRITABLE BOWEL SYNDROME WITH CONSTIPATI 07/31/2018 JOHN VILLALPANDO MD, Ot M21.371 FOOT DROP, RIGHT FOOT 07/31/2018 JOHN VILLALPANDO MD, Ot M47 .9 SPONDYLOSIS, UNSPECIFIED 07/31/2018 JOHN VILLALPANDO MD, Ot N17 .9 ACUTE KIDNEY FAILURE, UNSPECIFIED 07/31/2018 JOHN VILLALPANDO MD, Ot N40 .1 BENIGN PROSTATIC HYPERPLASIA WITH LOWER 07/31/2018 JOHN VILLALPANDO MD, Ot R33 .8 OTHER RETENTION OF URINE 07/31/2018 JOHN VILLALPANDO MD, Ot R53 .1 WEAKNESS 07/31/2018 JOHN VILLALPANDO MD Ot R63 .0 ANOREXIA 07/31/2018 JOHN VILLALPANDO MD Ot Z66 DO NOT RESUSCITATE 07/31/2018 JOHN VILLALPANDO MD, Ot Z79.82 INSPECTOR FABRIC (CURRENT) USE OF ASPIRIN 08/01/2018 JOHN VILLALPANDO MD Ot D62 ACUTE POSTHEMORRHAGIC ANEMIA 08/01/2018 JOHN VILLALPANDO MD, Ot D72.829 ELEVATED WHITE BLOOD CELL COUNT, UNSPECI 08/01/2018 JOHN VILLALPANDO MD Ot E11.65 TYPE 2 DIABETES MELLITUS WITH HYPERGLYCE 08/01/2018 JOHN VILLALPANDO MD Ot E86 .1 HYPOVOLEMIA 08/01/2018 JOHN VILLALPANDO MD Ot E87 .2 ACIDOSIS 08/01/2018 JOHN VILLALPANDO MD Ot E87 .6 HYPOKALEMIA 08/01/2018 JOHN VILLALPANDO MD Ot F17.210 NICOTINE DEPENDENCE, CIGARETTES, UNCOMPL 08/01/2018 JOHN VILLALPANDO MD Ot F32 .9 MAJOR DEPRESSIVE DISORDER, SINGLE EPISOD 08/01/2018 JOHN VILLALPANDO MD Ot F43.10 POST-TRAUMATIC STRESS DISORDER, UNSPECIF 08/01/2018 JOHN VILLALPANDO MD Ot H57.89 OTHER SPECIFIED DISORDERS OF EYE AND ADN 08/01/2018 JOHN VILLALPANDO MD Ot I10 ESSENTIAL (PRIMARY) HYPERTENSION 08/01/2018 JOHN VILLALPANDO MD Ot I87 .2 VENOUS INSUFFICIENCY (CHRONIC) (PERIPHER 08/01/2018 JOHN VILLALPANDO MD, Ot J44 .9 CHRONIC OBSTRUCTIVE PULMONARY DISEASE, U 08/01/2018 JOHN VILLALPANDO MD, Ot K21 .0 GASTRO-ESOPHAGEAL REFLUX DISEASE WITH ES 08/01/2018 JOHN VILLALPANDO MD Ot K26 .4 CHRONIC OR UNSPECIFIED DUODENAL ULCER [place] 08/01/2018 JOHN VILLALPANDO MD Ot K29.71 GASTRITIS, UNSPECIFIED, WITH BLEEDING 08/01/2018 JONH VILLALPANDO MD Ot K44 .9 DIAPHRAGMATIC HERNIA WITHOUT OBSTRUCTION 08/01/2018 JOHN VILLALPANDO MD Ot K58 .1 IRRITABLE BOWEL SYNDROME WITH CONSTIPATI 08/01/2018 JOHN VILLALPANDO MD Ot M21.371 FOOT DROP, RIGHT FOOT 08/01/2018 JOHN VILLALPANDO MD Ot M47 .9 SPONDYLOSIS, UNSPECIFIED 08/01/2018 JOHN VILLALPANDO MD Ot N17 .9 ACUTE KIDNEY FAILURE, UNSPECIFIED 08/01/2018 JOHN VILLALPANDO MD Ot N40 .1 BENIGN PROSTATIC HYPERPLASIA WITH LOWER 08/01/2018 JOHN VILLALPANDO MD Ot R33 .8 OTHER RETENTION OF URINE 08/01/2018 JOHN VILLALPANDO MD Ot R53 .1 WEAKNESS 08/01/2018 JOHN VILLALPANDO MD Ot R63 .0 ANOREXIA 08/01/2018 JOHN VILLALPANDO MD Ot Z66 DO NOT RESUSCITATE 08/01/2018 JOHN VILLALPANDO MD Ot Z79.82 INSPECTOR FABRIC (CURRENT) USE OF ASPIRIN 08/02/2018 JOHN VILLALPANDO MD Ot D62 ACUTE POSTHEMORRHAGIC ANEMIA 08/02/2018 JOHN VILLALPANDO MD Ot D72.829 ELEVATED WHITE BLOOD CELL COUNT, UNSPECI 08/02/2018 JOHN VILLALPANDO MD Ot E11.65 TYPE 2 DIABETES MELLITUS WITH HYPERGLYCE 08/02/2018 JOHN VILLALPANDO MD Ot E86 .1 HYPOVOLEMIA 08/02/2018 JOHN VILLALPANDO MD Ot E87 .2 ACIDOSIS 08/02/2018 JOHN VILLALPANDO MD Ot E87 .6 HYPOKALEMIA 08/02/2018 JOHN VILLALPANDO MD Ot F17.210 NICOTINE DEPENDENCE, CIGARETTES, UNCOMPL 08/02/2018 JOHN VILLALPANDO MD Ot F32 .9 MAJOR DEPRESSIVE DISORDER, SINGLE EPISOD 08/02/2018 JOHN VILLALPANDO MD Ot F43.10 POST-TRAUMATIC STRESS DISORDER, UNSPECIF 08/02/2018 JOHN VILLALPANDO MD Ot H57.89 OTHER SPECIFIED DISORDERS OF EYE AND ADN 08/02/2018 JOHN VILLALPANDO MD Ot I10 ESSENTIAL (PRIMARY) HYPERTENSION 08/02/2018 JOHN VILLALPANDO MD, Ot I87 .2 VENOUS INSUFFICIENCY (CHRONIC) (PERIPHER 08/02/2018 JOHN VILLALPANDO MD, Ot J44 .9 CHRONIC OBSTRUCTIVE PULMONARY DISEASE, U 08/02/2018 JOHN VILLALPANDO MD, Ot K21 .0 GASTRO-ESOPHAGEAL REFLUX DISEASE WITH ES 08/02/2018 JOHN VILLALPANDO MD, Ot K26 .4 CHRONIC OR UNSPECIFIED DUODENAL ULCER [place] 08/02/2018 JOHN VILLALPANDO MD, Ot K29.71 GASTRITIS, UNSPECIFIED, WITH BLEEDING 08/02/2018 JOHN VILLALPANDO MD, Ot K44 .9 DIAPHRAGMATIC HERNIA WITHOUT OBSTRUCTION 08/02/2018 JOHN VILLALPANDO MD, Ot K58 .1 IRRITABLE BOWEL SYNDROME WITH CONSTIPATI 08/02/2018 JOHN VILLALPANDO MD, Ot M21.371 FOOT DROP, RIGHT FOOT 08/02/2018 JOHN VILLALPANDO MD, Ot M47 .9 SPONDYLOSIS, UNSPECIFIED 08/02/2018 JOHN VILLALPANDO MD, Ot N17 .9 ACUTE KIDNEY FAILURE, UNSPECIFIED 08/02/2018 JOHN VILLALPANDO MD, Ot N40 .1 BENIGN PROSTATIC HYPERPLASIA WITH LOWER 08/02/2018 JOHN VILLALPANDO MD Ot R33 .8 OTHER RETENTION OF URINE 08/02/2018 JOHN VILLALPANDO MD Ot R53 .1 WEAKNESS 08/02/2018 JOHN VILLALPANDO MD Ot R63 .0 ANOREXIA 08/02/2018 JOHN VILLALPANDO MD Ot Z66 DO NOT RESUSCITATE 08/02/2018 JOHN VILLALPANDO MD, Ot Z79.82 INSPECTOR FABRIC (CURRENT) USE OF ASPIRIN 08/03/2018 JOHN VILLALPANDO MD Ot D62 ACUTE POSTHEMORRHAGIC ANEMIA 08/03/2018 JOHN VILLALPANDO MD, Ot D72.829 ELEVATED WHITE BLOOD CELL COUNT, UNSPECI 08/03/2018 JOHN VILLALPANDO MD, Ot E11.65 TYPE 2 DIABETES MELLITUS WITH HYPERGLYCE 08/03/2018 JOHN VILLALPANDO MD Ot E86 .1 HYPOVOLEMIA 08/03/2018 JOHN VILLALPANDO MD Ot E87 .2 ACIDOSIS 08/03/2018 JOHN VILLALPANDO MD, Ot E87 .6 HYPOKALEMIA 08/03/2018 JOHN VILLALPANDO MD Ot F17.210 NICOTINE DEPENDENCE, CIGARETTES, UNCOMPL 08/03/2018 JOHN VILLALPANDO MD, Ot F32 .9 MAJOR DEPRESSIVE DISORDER, SINGLE EPISOD 08/03/2018 JOHN VILLALPANDO MD, Ot F43.10 POST-TRAUMATIC STRESS DISORDER, UNSPECIF 08/03/2018 JOHN VILLALPANDO MD Ot H57.89 OTHER SPECIFIED DISORDERS OF EYE AND ADN 08/03/2018 JOHN VILLALPANDO MD Ot I10 ESSENTIAL (PRIMARY) HYPERTENSION 08/03/2018 JOHN VILLALPANDO MD Ot I87 .2 VENOUS INSUFFICIENCY (CHRONIC) (PERIPHER 08/03/2018 JOHN VILLALPANDO MD, Ot J44 .9 CHRONIC OBSTRUCTIVE PULMONARY DISEASE, U 08/03/2018 JOHN VILLALPANDO MD Ot K21 .0 GASTRO-ESOPHAGEAL REFLUX DISEASE WITH ES 08/03/2018 JOHN VILLALPANDO MD Ot K26 .4 CHRONIC OR UNSPECIFIED DUODENAL ULCER [place] 08/03/2018 JOHN VILLALPANDO MD Ot K29.71 GASTRITIS, UNSPECIFIED, WITH BLEEDING 08/03/2018 JOHN VILLALPANDO MD Ot K44 .9 DIAPHRAGMATIC HERNIA WITHOUT OBSTRUCTION 08/03/2018 JOHN VILLALPANDO MD Ot K58 .1 IRRITABLE BOWEL SYNDROME WITH CONSTIPATI 08/03/2018 JOHN VILLALPANDO MD Ot M21.371 FOOT DROP, RIGHT FOOT 08/03/2018 JOHN VILLALPANDO MD Ot M47 .9 SPONDYLOSIS, UNSPECIFIED 08/03/2018 JOHN VILLALPANDO MD Ot N17 .9 ACUTE KIDNEY FAILURE, UNSPECIFIED 08/03/2018 JOHN VILLALPANDO MD Ot N40 .1 BENIGN PROSTATIC HYPERPLASIA WITH LOWER 08/03/2018 JOHN VILLALPANDO MD Ot R33 .8 OTHER RETENTION OF URINE 08/03/2018 JOHN VILLALPANDO MD Ot R53 .1 WEAKNESS 08/03/2018 JOHN VILLALPANDO MD Ot R63 .0 ANOREXIA 08/03/2018 JOHN VILLALPANDO MD Ot Z66 DO NOT RESUSCITATE 08/03/2018 JOHN VILLALPANDO MD Ot Z79.82 INSPECTOR FABRIC (CURRENT) USE OF ASPIRIN 08/03/2018 JOHN VILLALPANDO MD Ot D62 ACUTE POSTHEMORRHAGIC ANEMIA 08/03/2018 JOHN VILLALPANDO MD, Ot D72.829 ELEVATED WHITE BLOOD CELL COUNT, UNSPECI 08/03/2018 JOHN VILLALPANDO MD, Ot E11.65 TYPE 2 DIABETES MELLITUS WITH HYPERGLYCE 08/03/2018 JOHN VILLALPANDO MD, Ot E86 .1 HYPOVOLEMIA 08/03/2018 JOHN VILLALPANDO MD, Ot E87 .2 ACIDOSIS 08/03/2018 JOHN VILLALPANDO MD, Ot E87 .6 HYPOKALEMIA 08/03/2018 JOHN VILLALPANDO MD, Ot F17.210 NICOTINE DEPENDENCE, CIGARETTES, UNCOMPL 08/03/2018 JOHN VILLALPANDO MD, Ot F32 .9 MAJOR DEPRESSIVE DISORDER, SINGLE EPISOD 08/03/2018 JOHN VILLALPANDO MD, Ot F43.10 POST-TRAUMATIC STRESS DISORDER, UNSPECIF 08/03/2018 JOHN VILLALPANDO MD, Ot H57.89 OTHER SPECIFIED DISORDERS OF EYE AND ADN 08/03/2018 JOHN VILLALPANDO MD, Ot I10 ESSENTIAL (PRIMARY) HYPERTENSION 08/03/2018 JOHN VILLALPANDO MD Ot I87 .2 VENOUS INSUFFICIENCY (CHRONIC) (PERIPHER 08/03/2018 JOHN VILLALPANDO MD, Ot J44 .9 CHRONIC OBSTRUCTIVE PULMONARY DISEASE, U 08/03/2018 JOHN VILLALPANDO MD, Ot K21 .0 GASTRO-ESOPHAGEAL REFLUX DISEASE WITH ES 08/03/2018 JOHN VILLALPANDO MD, Ot K26 .4 CHRONIC OR UNSPECIFIED DUODENAL ULCER [place] 08/03/2018 JOHN VILLALPANDO MD Ot K29.71 GASTRITIS, UNSPECIFIED, WITH BLEEDING 08/03/2018 JOHN VILLALPANDO MD, Ot K44 .9 DIAPHRAGMATIC HERNIA WITHOUT OBSTRUCTION 08/03/2018 JOHN VILLALPANDO MD, Ot K58 .1 IRRITABLE BOWEL SYNDROME WITH CONSTIPATI 08/03/2018 JOHN VILLALPANDO MD Ot M21.371 FOOT DROP, RIGHT FOOT 08/03/2018 JOHN VILLALPANDO MD, Ot M47 .9 SPONDYLOSIS, UNSPECIFIED 08/03/2018 JOHN VILLALPANDO MD, Ot N17 .9 ACUTE KIDNEY FAILURE, UNSPECIFIED 08/03/2018 JOHN VILLALPANDO MD Ot N40 .1 BENIGN PROSTATIC HYPERPLASIA WITH LOWER 08/03/2018 JOHN VILLALPANDO MD Ot R33 .8 OTHER RETENTION OF URINE 08/03/2018 JOHN VILLALPANDO MD Ot R53 .1 WEAKNESS 08/03/2018 JOHN VILLALPANDO MD Ot R63 .0 ANOREXIA 08/03/2018 JOHN VILLALPANDO MD Ot Z66 DO NOT RESUSCITATE 08/03/2018 JOHN VILLALPANDO MD, Ot Z79.82 DETENTION (CURRENT) USE OF ASPIRIN 08/04/2018 JOHN VILLALPANDO MD Ot D62 ACUTE POSTHEMORRHAGIC ANEMIA 08/04/2018 JOHN VILLALPANDO MD, Ot D72.829 ELEVATED WHITE BLOOD CELL COUNT, UNSPECI 08/04/2018 JOHN VILLALPANDO MD Ot E11.65 TYPE 2 DIABETES MELLITUS WITH HYPERGLYCE 08/04/2018 JOHN VILLALPANDO MD Ot E86 .1 HYPOVOLEMIA 08/04/2018 JOHN VILLALPANDO MD Ot E87 .2 ACIDOSIS 08/04/2018 JOHN VILLALPANDO MD Ot E87 .6 HYPOKALEMIA 08/04/2018 JOHN VILLALPANDO MD Ot F17.210 NICOTINE DEPENDENCE, CIGARETTES, UNCOMPL 08/04/2018 JOHN VILLALPANDO MD Ot F32 .9 MAJOR DEPRESSIVE DISORDER, SINGLE EPISOD 08/04/2018 JOHN VILLALPANDO MD Ot F43.10 POST-TRAUMATIC STRESS DISORDER, UNSPECIF 08/04/2018 JOHN VILLALPANDO MD Ot H57.89 OTHER SPECIFIED DISORDERS OF EYE AND ADN 08/04/2018 JOHN VILLALPANDO MD Ot I10 ESSENTIAL (PRIMARY) HYPERTENSION 08/04/2018 JOHN VILLALPANDO MD Ot I87 .2 VENOUS INSUFFICIENCY (CHRONIC) (PERIPHER 08/04/2018 JOHN VILLALPANDO MD Ot J44 .9 CHRONIC OBSTRUCTIVE PULMONARY DISEASE, U 08/04/2018 JOHN VILLALPANDO MD Ot K21 .0 GASTRO-ESOPHAGEAL REFLUX DISEASE WITH ES 08/04/2018 JOHN VILLALPANDO MD Ot K26 .4 CHRONIC OR UNSPECIFIED DUODENAL ULCER [place] 08/04/2018 KWASI MD, JOHN N Ot K29.71 GASTRITIS, UNSPECIFIED, WITH BLEEDING 08/04/2018 JOHN VILLALPANDO MD Ot K44 .9 DIAPHRAGMATIC HERNIA WITHOUT OBSTRUCTION 08/04/2018 JOHN VILLALPANDO MD, Ot K58 .1 IRRITABLE BOWEL SYNDROME WITH CONSTIPATI 08/04/2018 JOHN VILLALPANDO MD Ot M21.371 FOOT DROP, RIGHT FOOT 08/04/2018 JOHN VILLALPANDO MD, Ot M47 .9 SPONDYLOSIS, UNSPECIFIED 08/04/2018 JOHN VILLALPANDO MD Ot N17 .9 ACUTE KIDNEY FAILURE, UNSPECIFIED 08/04/2018 JOHN VILLALPANDO MD, Ot N40 .1 BENIGN PROSTATIC HYPERPLASIA WITH LOWER 08/04/2018 JOHN VILLALPANDO MD Ot R33 .8 OTHER RETENTION OF URINE 08/04/2018 JOHN VILLALPANDO MD Ot R53 .1 WEAKNESS 08/04/2018 JOHN VILLALPANDO MD Ot R63 .0 ANOREXIA 08/04/2018 JOHN VILLALPANDO MD Ot Z66 DO NOT RESUSCITATE 08/04/2018 JOHN VILLALPANDO MD Ot Z79.82 DETENTION (CURRENT) USE OF ASPIRIN 08/04/2018 JOHN VILLALPANDO MD Ot B37 .0 CANDIDAL STOMATITIS 08/04/2018 JOHN VILLALPANDO MD Ot D62 ACUTE POSTHEMORRHAGIC ANEMIA 08/04/2018 JOHN VILLALPANDO MD Ot D72.829 ELEVATED WHITE BLOOD CELL COUNT, UNSPECI 08/04/2018 JOHN VILLALPANDO MD Ot E11.65 TYPE 2 DIABETES MELLITUS WITH HYPERGLYCE 08/04/2018 JOHN VILLALPANDO MD Ot E86 .1 HYPOVOLEMIA 08/04/2018 JOHN VILLALPANDO MD Ot E87 .2 ACIDOSIS 08/04/2018 JOHN VILLALPANDO MD Ot E87 .6 HYPOKALEMIA 08/04/2018 JOHN VILLALPANDO MD Ot F17.210 NICOTINE DEPENDENCE, CIGARETTES, UNCOMPL 08/04/2018 JOHN VILLALPANDO MD Ot F32 .9 MAJOR DEPRESSIVE DISORDER, SINGLE EPISOD 08/04/2018 JOHN VILLALPANDO MD Ot F43.10 POST-TRAUMATIC STRESS DISORDER, UNSPECIF 08/04/2018 JOHN VILLALPANDO MD, Ot H57.89 OTHER SPECIFIED DISORDERS OF EYE AND ADN 08/04/2018 JOHN VILLALPANDO MD Ot I10 ESSENTIAL (PRIMARY) HYPERTENSION 08/04/2018 JOHN VILLALPANDO MD Ot I11 .0 HYPERTENSIVE HEART DISEASE WITH HEART FA 08/04/2018 JOHN VILLALPANDO MD, Ot I25.82 CHRONIC TOTAL OCCLUSION OF CORONARY STEFAN 08/04/2018 JOHN VILLALPANDO MD, Ot I27.20 PULMONARY HYPERTENSION, UNSPECIFIED 08/04/2018 JOHN VILLALPANDO MD Ot I42 .0 DILATED CARDIOMYOPATHY 08/04/2018 JOHN VILLALPANDO MD, Ot I50.31 ACUTE DIASTOLIC (CONGESTIVE) HEART FAILU 08/04/2018 JOHN VILLALPANDO MD, Ot I70 .0 ATHEROSCLEROSIS OF [place]ORTA 08/04/2018 JOHN VILLALPANDO MD, Ot 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 [place] ARTERIES OF EXTRM W INTRMT 08/04/2018 JOHN VILLALPANDO MD Ot I70.223 ATHSCL [place] ARTERIES OF EXTRM W REST P 08/04/2018 JOHN VILLALPANDO MD, Ot I87 .2 VENOUS INSUFFICIENCY (CHRONIC) (PERIPHER 08/04/2018 JOHN VILLALPANDO MD, Ot J44 .9 CHRONIC OBSTRUCTIVE PULMONARY DISEASE, U 08/04/2018 JOHN VILLALPANDO MD, Ot J81 .1 CHRONIC PULMONARY EDEMA 08/04/2018 JOHN VILLALPANDO MD, Ot J96.21 ACUTE AND CHRONIC RESPIRATORY FAILURE [place] 08/04/2018 JOHN VILLALPANDO MD Ot K21 .0 GASTRO-ESOPHAGEAL REFLUX DISEASE WITH ES 08/04/2018 JOHN VILLALPANDO MD Ot K26 .4 CHRONIC OR UNSPECIFIED DUODENAL [place]ER [place] 08/04/2018 JOHN VILLALPANDO MD Ot K29.71 GASTRITIS, UNSPECIFIED, WITH BLEEDING 08/04/2018 JOHN VILLALPANDO MD Ot K44 .9 DIAPHRAGMATIC HERNIA WITHOUT OBSTRUCTION 08/04/2018 JOHN VILLALPANDO MD Ot K58 .1 IRRITABLE BOWEL SYNDROME WITH CONSTIPATI 08/04/2018 JOHN VILLALPANDO MD Ot M21.371 FOOT DROP, RIGHT FOOT 08/04/2018 JOHN VILLALPANDO MD Ot M47 .9 SPONDYLOSIS, UNSPECIFIED 08/04/2018 JOHN VILLALPANDO MD, Ot N17 .9 ACUTE KIDNEY FAILURE, UNSPECIFIED 08/04/2018 JOHN VILLALPANDO MD, Ot N40 .1 BENIGN PROSTATIC HYPERPLASIA WITH LOWER 08/04/2018 JOHN VILLALPANDO MD Ot R33 .8 OTHER RETENTION OF URINE 08/04/2018 JOHN VILLALPANDO MD Ot R53 .1 WEAKNESS 08/04/2018 JOHN VILLALPANDO MD Ot R53.81 OTHER MALAISE 08/04/2018 JOHN VILLALPANDO MD Ot R63 .0 ANOREXIA 08/04/2018 JOHN VILLALPANDO MD Ot Z66 DO NOT RESUSCITATE 08/04/2018 JOHN VILLALPANDO MD, Ot Z79.82 INSPECTOR FABRIC (CURRENT) USE OF ASPIRIN 08/04/2018 JOHN VILLALPANDO MD Ot D62 ACUTE POSTHEMORRHAGIC ANEMIA 08/04/2018 JOHN VILLALPANDO MD Ot D72.829 ELEVATED WHITE BLOOD CELL COUNT, UNSPECI 08/04/2018 JOHN VILLALPANDO MD Ot E11.65 TYPE 2 DIABETES MELLITUS WITH HYPERGLYCE 08/04/2018 JOHN VILLALPANDO MD Ot E86 .1 HYPOVOLEMIA 08/04/2018 JOHN VILLALPANDO MD Ot E87 .2 ACIDOSIS 08/04/2018 JOHN VILLALPANDO MD Ot E87 .6 HYPOKALEMIA 08/04/2018 JOHN VILLALPANDO MD Ot F17.210 NICOTINE DEPENDENCE, CIGARETTES, UNCOMPL 08/04/2018 JOHN VILLALPANDO MD Ot F32 .9 MAJOR DEPRESSIVE DISORDER, SINGLE EPISOD 08/04/2018 JOHN VILLALPANDO MD Ot F43.10 POST-TRAUMATIC STRESS DISORDER, UNSPECIF 08/04/2018 JOHN VILLALPANDO MD Ot H57.89 OTHER SPECIFIED DISORDERS OF EYE AND ADN 08/04/2018 JOHN VILLALPANDO MD, Ot I10 ESSENTIAL (PRIMARY) HYPERTENSION 08/04/2018 JOHN VILLALPANDO MD Ot I87 .2 VENOUS INSUFFICIENCY (CHRONIC) (PERIPHER 08/04/2018 JOHN VILLALPANDO MD Ot J44 .9 CHRONIC OBSTRUCTIVE PULMONARY DISEASE, U 08/04/2018 JOHN VILLALPANDO MD Ot K21 .0 GASTRO-ESOPHAGEAL REFLUX DISEASE WITH ES 08/04/2018 JOHN VILLALPANDO MD Ot K26 .4 CHRONIC OR UNSPECIFIED DUODENAL ULCER [place] 08/04/2018 JOHN VILLALPANDO MD Ot K29.71 GASTRITIS, UNSPECIFIED, WITH BLEEDING 08/04/2018 JOHN VILLALPANDO MD Ot K44 .9 DIAPHRAGMATIC HERNIA WITHOUT OBSTRUCTION 08/04/2018 JOHN VILLALPANDO MD Ot K58 .1 IRRITABLE BOWEL SYNDROME WITH CONSTIPATI 08/04/2018 JOHN VILLALPANDO MD Ot M21.371 FOOT DROP, RIGHT FOOT 08/04/2018 JOHN VILLALPANDO MD Ot M47 .9 SPONDYLOSIS, UNSPECIFIED 08/04/2018 JOHN VILLALPANDO MD Ot N17 .9 ACUTE KIDNEY FAILURE, UNSPECIFIED 08/04/2018 JOHN VILLALPANDO MD Ot N40 .1 BENIGN PROSTATIC HYPERPLASIA WITH LOWER 08/04/2018 JOHN VILLALPANDO MD Ot R33 .8 OTHER RETENTION OF URINE 08/04/2018 JOHN VILLALPANDO MD Ot R53 .1 WEAKNESS 08/04/2018 JOHN VILLALPANDO MD Ot R63 .0 ANOREXIA 08/04/2018 JOHN VILLALPANDO MD Ot Z66 DO NOT RESUSCITATE 08/04/2018 JOHN VILLALPANDO MD Ot Z79.82 DETENTION (CURRENT) USE OF ASPIRIN 08/07/2018 DERIAN BOLAÑOS MD Ot D64.9 ANEMIA, UNSPECIFIED 08/07/2018 DERIAN BOLAÑOS MD Ot E11.9 TYPE 2 DIABETES MELLITUS WITHOUT COMPLIC 08/07/2018 DERIAN BOLAÑOS MD Ot F43.10 POST-TRAUMATIC STRESS DISORDER, UNSPECIF 08/07/2018 DERIAN BOLAÑOS MD Ot I10 ESSENTIAL (PRIMARY) HYPERTENSION 08/07/2018 DERIAN BOLAÑOS MD Ot I25.10 ATHSCL HEART DISEASE OF [place] CORONARY 08/07/2018 DERIAN BOLAÑOS MD Ot I25.5 ISCHEMIC CARDIOMYOPATHY 08/07/2018 DERIAN BOLAÑOS MD Ot I48.91 UNSPECIFIED ATRIAL FIBRILLATION 08/07/2018 DERIAN BOLAÑOS MD Ot J44.9 CHRONIC OBSTRUCTIVE PULMONARY DISEASE, U 08/07/2018 DERIAN BOLAÑOS MD, Ot K92.2 GASTROINTESTINAL HEMORRHAGE, UNSPECIFIED 08/07/2018 DERIAN BOLAÑOS MD, Ot L89.152 PRESSURE ULCER OF [place], STAGE 2 08/07/2018 DERIAN BOLAÑOS MD, Ot M79.671 PAIN IN RIGHT FOOT 08/07/2018 DERIAN BOLAÑOS MD Ot R07.9 CHEST PAIN, UNSPECIFIED 08/07/2018 DERIAN BOLAÑOS MD, Ot R19.7 DIARRHEA, UNSPECIFIED 08/07/2018 DERIAN BOLAÑOS MD, Ot W18.30XA FALL ON SAME LEVEL, UNSPECIFIED, INITIAL 08/07/2018 DERIAN BOLAÑOS MD, Ot Z79.4 DETENTION (CURRENT) USE OF INSULIN 08/07/2018 DERIAN BOLAÑOS MD, Ot Z79.51 DETENTION (CURRENT) USE OF INHALED STERO 08/07/2018 DERIAN BOLAÑOS MD, Ot Z87.19 PERSONAL HISTORY OF OTHER DISEASES OF TH 08/07/2018 DERIAN BOLAÑOS MD, Ot Z87.448 PERSONAL HISTORY OF OTHER DISEASES OF UR 08/07/2018 DERIAN BOLAÑOS MD, Ot Z87.891 PERSONAL HISTORY OF NICOTINE DEPENDENCE 12/03/2018 Jose GRAY MD Ot E11 .9 TYPE 2 DIABETES MELLITUS WITHOUT COMPLIC 12/03/2018 Jose GRAY MD Ot E78 .5 HYPERLIPIDEMIA, UNSPECIFIED 12/03/2018 Jose GRAY MD, Ot F17.210 NICOTINE DEPENDENCE, CIGARETTES, UNCOMPL 12/03/2018 Jose GRAY MD, Ot I11 .0 HYPERTENSIVE HEART DISEASE WITH HEART FA 12/03/2018 Jose GRAY MD, Ot I25.10 ATHSCL HEART DISEASE OF [place] CORONARY 12/03/2018 Jose GRAY MD, Ot I25 .2 OLD MYOCARDIAL INFARCTION 12/03/2018 Jose GRAY MD, Ot I25 .5 ISCHEMIC CARDIOMYOPATHY 12/03/2018 Jose GRAY MD, Ot I35 .1 NONRHEUMATIC AORTIC (VALVE) INSUFFICIENC 12/03/2018 Jose GRAY MD Ot I50.20 UNSPECIFIED SYSTOLIC (CONGESTIVE) HEART 12/03/2018 Jose GRAY MD Ot I70 .0 ATHEROSCLEROSIS OF [place] 12/03/2018 Jose GRAY MD Ot 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 [place]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 12/03/2018 Jose GRAY MD Ot I70.92 CHRONIC TOTAL OCCLUSION OF ARTERY OF THE 12/03/2018 Jose GRAY MD Ot Z79 .4 DETENTION (CURRENT) USE OF INSULIN 12/03/2018 Jose GRAY MD, Ot Z79.899 OTHER INSPECTOR FABRIC (CURRENT) DRUG THERAPY 12/03/2018 Jose GRAY MD Ot Z95 .5 PRESENCE OF CORONARY ANGIOPLASTY IMPLANT 12/07/2018 Jose GRAY MD Ot E11 .9 TYPE 2 DIABETES MELLITUS WITHOUT COMPLIC 12/07/2018 Jose GRAY MD Ot E78 .5 HYPERLIPIDEMIA, UNSPECIFIED 12/07/2018 Jose GRAY MD Ot F17.210 NICOTINE DEPENDENCE, CIGARETTES, UNCOMPL 12/07/2018 Jose GRAY MD Ot I11 .0 HYPERTENSIVE HEART DISEASE WITH HEART FA 12/07/2018 Jose GRAY MD Ot I25.10 ATHSCL HEART DISEASE OF [place] CORONARY 12/07/2018 Jose GRAY MD Ot I25 .2 OLD MYOCARDIAL INFARCTION 12/07/2018 Jose GRAY MD Ot I25 .5 ISCHEMIC CARDIOMYOPATHY 12/07/2018 Jose GRAY MD Ot I35 .1 NONRHEUMATIC AORTIC (VALVE) INSUFFICIENC 12/07/2018 Jose GRAY MD Ot I50.20 UNSPECIFIED SYSTOLIC (CONGESTIVE) HEART 12/07/2018 Jose GRAY MD Ot I70 .0 ATHEROSCLEROSIS OF [place] 12/07/2018 Jose GRAY MD Ot 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 [place] ARTERIES OF EXTRM W INTRMT 12/07/2018 Jose GRAY MD Ot I70.92 CHRONIC TOTAL OCCLUSION OF ARTERY OF THE 12/07/2018 Jose GRAY MD Ot Z79 .4 DETENTION (CURRENT) USE OF INSULIN 12/07/2018 Jose GRAY MD, Ot Z79.899 OTHER DETENTION (CURRENT) DRUG THERAPY 12/07/2018 Jose GRAY MD Ot Z95 .5 PRESENCE OF CORONARY ANGIOPLASTY IMPLANT 12/10/2018 Jose GRAY MD Ot E11 .9 TYPE 2 DIABETES MELLITUS WITHOUT COMPLIC 12/10/2018 Jose GRAY MD, Ot E78 .5 HYPERLIPIDEMIA, UNSPECIFIED 12/10/2018 Jose GRAY MD Ot F17.210 NICOTINE DEPENDENCE, CIGARETTES, UNCOMPL 12/10/2018 Jose GRAY MD Ot I10 ESSENTIAL (PRIMARY) HYPERTENSION 12/10/2018 Jose GRAY MD Ot I25.10 ATHSCL HEART DISEASE OF [place] CORONARY 12/10/2018 Jose GRAY MD Ot I25 .5 ISCHEMIC CARDIOMYOPATHY 12/10/2018 Jose GRAY MD Ot I70.212 ATHSCL [place] ARTERIES OF EXTRM W INTRMT 12/10/2018 Jose GRAY MD, Ot Z79 .4 INSPECTOR FABRIC (CURRENT) USE OF INSULIN 12/10/2018 Jose GRAY MD, Ot Z79.899 OTHER INSPECTOR FABRIC (CURRENT) DRUG THERAPY 12/14/2018 Jose GRAY MD, Ot E11 .9 TYPE 2 DIABETES MELLITUS WITHOUT COMPLIC 12/14/2018 Jose GRAY MD, Ot E78 .5 HYPERLIPIDEMIA, UNSPECIFIED 12/14/2018 Jose GRAY MD Ot F17.210 NICOTINE DEPENDENCE, CIGARETTES, UNCOMPL 12/14/2018 Jose GRAY MD Ot I10 ESSENTIAL (PRIMARY) HYPERTENSION 12/14/2018 Jose GRAY MD Ot I25.10 ATHSCL HEART DISEASE OF [place] CORONARY 12/14/2018 Jose GRAY MD Ot I25 .5 ISCHEMIC CARDIOMYOPATHY 12/14/2018 Jose GRAY MD Ot I70.212 ATHSCL [place] ARTERIES OF [facility] 12/14/2018 Jose GRAY MD Ot Z79 .4 DETENTION (CURRENT) USE OF INSULIN 12/14/2018 Jose GRAY MD Ot Z79.899 OTHER INSPECTOR FABRIC (CURRENT) DRUG THERAPY 12/14/2018 Jose GRAY MD Ot E11 .9 TYPE 2 DIABETES MELLITUS WITHOUT COMPLIC 12/14/2018 Jose GRAY MD Ot E78 .5 HYPERLIPIDEMIA, UNSPECIFIED 12/14/2018 Jose GRAY MD Ot F17.210 NICOTINE DEPENDENCE, CIGARETTES, UNCOMPL 12/14/2018 Jose GRAY MD Ot I10 ESSENTIAL (PRIMARY) HYPERTENSION 12/14/2018 Jose GRAY MD Ot I25.10 ATHSCL HEART DISEASE OF [place] CORONARY 12/14/2018 Jose GRAY MD Ot I25 .5 ISCHEMIC CARDIOMYOPATHY 12/14/2018 Jose GRAY MD Ot I70.212 ATHSCL [place] ARTERIES OF [facility] 12/14/2018 Jose GRAY MD Ot Z79 .4 INSPECTOR FABRIC (CURRENT) USE OF INSULIN 12/14/2018 Jose GRAY MD Ot Z79.899 OTHER DETENTION (CURRENT) DRUG THERAPY 12/17/2018 Jose GRAY MD Ot E11 .9 TYPE 2 DIABETES MELLITUS WITHOUT COMPLIC 12/17/2018 Jose GRAY MD Ot E78 .5 HYPERLIPIDEMIA, UNSPECIFIED 12/17/2018 Jose GRAY MD Ot F17.210 NICOTINE DEPENDENCE, CIGARETTES, UNCOMPL 12/17/2018 Jose GRAY MD Ot I10 ESSENTIAL (PRIMARY) HYPERTENSION 12/17/2018 Jose GRAY MD Ot I25.10 ATHSCL HEART DISEASE OF [place] CORONARY 12/17/2018 Jose GRAY MD Ot I25 .5 ISCHEMIC CARDIOMYOPATHY 12/17/2018 Jose GRAY MD Ot I70.212 ATHSCL [place] ARTERIES OF EXTR W [facility] 12/17/2018 Jose GRAY MD Ot Z79 .4 INSPECTOR FABRIC (CURRENT) USE OF INSULIN 12/17/2018 Jose GRAY MD, Ot Z79.899 OTHER INSPECTOR FABRIC (CURRENT) DRUG THERAPY 12/21/2018 Jose GRAY MD, Ot E78 .5 HYPERLIPIDEMIA, UNSPECIFIED 12/21/2018 Jose GRAY MD Ot I10 ESSENTIAL (PRIMARY) HYPERTENSION 12/21/2018 Jose GRAY MD Ot I25.10 ATHSCL HEART DISEASE OF [place] CORONARY 12/21/2018 Jose GRAY MD Ot I25 .5 ISCHEMIC CARDIOMYOPATHY 12/21/2018 Jose GRAY MD Ot I73 .9 PERIPHERAL VASCULAR DISEASE, UNSPECIFIED 12/31/2018 Jose GRAY MD, Ot E78 .5 HYPERLIPIDEMIA, UNSPECIFIED 12/31/2018 Jose GRAY MD Ot I10 ESSENTIAL (PRIMARY) HYPERTENSION 12/31/2018 Jose GRAY MD Ot I25.10 ATHSCL HEART DISEASE OF [place] CORONARY 12/31/2018 Jose GRAY MD Ot I25 .5 ISCHEMIC CARDIOMYOPATHY 12/31/2018 Jose GRAY MD Ot I73 .9 PERIPHERAL VASCULAR DISEASE, UNSPECIFIED 02/22/2019 Jose GRAY MD, Ot E78 .5 HYPERLIPIDEMIA, UNSPECIFIED 02/22/2019 Jose GRAY MD Ot I10 ESSENTIAL (PRIMARY) HYPERTENSION 02/22/2019 Jose GRAY MD Ot I25.10 ATHSCL HEART DISEASE OF [place] CORONARY 02/22/2019 Jose GRAY MD Ot I25 .5 ISCHEMIC CARDIOMYOPATHY 02/22/2019 Jose GRAY MD Ot I73 .9 PERIPHERAL VASCULAR DISEASE, UNSPECIFIED 02/22/2019 ALBERT ABEL DO Ot E11.40 TYPE 2 DIABETES MELLITUS WITH DIABETIC N 02/22/2019 ALBERT ABEL DO Ot E78.5 HYPERLIPIDEMIA, UNSPECIFIED 02/22/2019 ALBERT ABEL DO Ot F17.21 0 NICOTINE DEPENDENCE, CIGARETTES, UNCOMPL 02/22/2019 ALBERT ABEL DO Ot F41.9 ANXIETY DISORDER, UNSPECIFIED 02/22/2019 ALBERT ABLE DO Ot F43.10 POST-TRAUMATIC STRESS DISORDER, UNSPECIF 02/22/2019 ALBERT ABEL DO Ot I13.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 02/22/2019 ALBERT ABEL DO Ot I21.A1 MYOCARDIAL INFARCTION TYPE 2 02/22/2019 ALBERT ABEL DO Ot I25.10 ATHSCL HEART DISEASE OF [place] CORONARY 02/22/2019 ALBERT ABEL DO Ot I25.5 ISCHEMIC CARDIOMYOPATHY 02/22/2019 ALBERT ABEL DO Ot I48.91 UNSPECIFIED ATRIAL FIBRILLATION 02/22/2019 ALBERT ABEL DO Ot I50.23 ACUTE ON CHRONIC SYSTOLIC (CONGESTIVE) H 02/22/2019 ALBERT ABEL DO Ot J44.1 CHRONIC OBSTRUCTIVE PULMONARY DISEASE W 02/22/2019 ALBERT ABEL DO Ot J96.21 ACUTE AND CHRONIC RESPIRATORY FAILURE [place] 02/22/2019 ALBERT ABEL DO Ot K21.9 GASTRO-ESOPHAGEAL REFLUX DISEASE WITHOUT 02/22/2019 ALBERT ABEL DO Ot N18.3 CHRONIC KIDNEY DISEASE, STAGE 3 (MODERAT 02/22/2019 ALBERT ABEL DO Ot N40.1 BENIGN PROSTATIC HYPERPLASIA WITH LOWER 02/22/2019 ALBERT ABEL DO Ot R33.9 RETENTION OF URINE, UNSPECIFIED 02/22/2019 ALBERT ABEL DO Ot Z79.4 INSPECTOR FABRIC (CURRENT) USE OF INSULIN 02/22/2019 ALBERT ABEL DO Ot Z95.5 PRESENCE OF CORONARY ANGIOPLASTY IMPLANT 02/22/2019 ALBERT ABEL DO Ot Z95.82 0 PERIPHERAL VASCULAR ANGIOPLASTY STATUS W 02/26/2019 ALBERT ABEL DO Ot E11.40 TYPE 2 DIABETES MELLITUS WITH DIABETIC N 02/26/2019 ALBERT ABEL DO Ot E78.5 HYPERLIPIDEMIA, UNSPECIFIED 02/26/2019 ALBERT ABEL DO Ot F17.21 0 NICOTINE DEPENDENCE, CIGARETTES, UNCOMPL 02/26/2019 ALBERT ABEL DO Ot F41.9 ANXIETY DISORDER, UNSPECIFIED 02/26/2019 ALBERT ABEL DO Ot F43.10 POST-TRAUMATIC STRESS DISORDER, UNSPECIF 02/26/2019 ALBERT ABEL DO Ot I13.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 02/26/2019 ALBERT ABEL DO Ot I21.A1 MYOCARDIAL INFARCTION TYPE 2 02/26/2019 ALBERT ABEL DO Ot I25.10 ATHSCL HEART DISEASE OF [place] CORONARY 02/26/2019 ALBERT ABEL DO Ot I25.5 ISCHEMIC CARDIOMYOPATHY 02/26/2019 ALBERT ABEL DO Ot I48.91 UNSPECIFIED ATRIAL FIBRILLATION 02/26/2019 ALBERT ABEL DO Ot I50.23 ACUTE ON CHRONIC SYSTOLIC (CONGESTIVE) H 02/26/2019 ALBERT ABEL DO Ot J44.1 CHRONIC OBSTRUCTIVE PULMONARY DISEASE W 02/26/2019 ALBERT ABEL DO Ot J96.21 ACUTE AND CHRONIC RESPIRATORY FAILURE [place] 02/26/2019 ALBERT ABEL DO Ot K21.9 GASTRO-ESOPHAGEAL REFLUX DISEASE WITHOUT 02/26/2019 ALBERT ABEL DO Ot N18.3 CHRONIC KIDNEY DISEASE, STAGE 3 (MODERAT 02/26/2019 ALBERT ABEL DO Ot N40.1 BENIGN PROSTATIC HYPERPLASIA WITH LOWER 02/26/2019 ALBERT ABEL DO Ot R33.9 RETENTION OF URINE, UNSPECIFIED 02/26/2019 ALBERT ABEL DO Ot Z79.4 DETENTION (CURRENT) USE OF INSULIN 02/26/2019 ALBERT ABEL DO Ot Z95.5 PRESENCE OF CORONARY ANGIOPLASTY IMPLANT 02/26/2019 ALBERT ABEL DO Ot Z95.82 0 PERIPHERAL VASCULAR ANGIOPLASTY STATUS W 03/04/2019 ALBERT ABEL DO Ot E11.40 TYPE 2 DIABETES MELLITUS WITH DIABETIC N 03/04/2019 ALBERT ABEL DO Ot E78.5 HYPERLIPIDEMIA, UNSPECIFIED 03/04/2019 ALBERT ABEL DO Ot F17.21 0 NICOTINE DEPENDENCE, CIGARETTES, UNCOMPL 03/04/2019 ALBERT ABEL DO Ot F41.9 ANXIETY DISORDER, UNSPECIFIED 03/04/2019 ALBERT ABEL DO Ot F43.10 POST-TRAUMATIC STRESS DISORDER, UNSPECIF 03/04/2019 ALBERT ABEL DO Ot I13.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 03/04/2019 ALBERT ABEL DO Ot I21.A1 MYOCARDIAL INFARCTION TYPE 2 03/04/2019 ALBERT ABEL DO Ot I25.10 ATHSCL HEART DISEASE OF [place] CORONARY 03/04/2019 ALBERT ABEL DO Ot I25.5 ISCHEMIC CARDIOMYOPATHY 03/04/2019 ALBERT ABEL DO Ot I48.91 UNSPECIFIED ATRIAL FIBRILLATION 03/04/2019 PAGE OBRIEN ALBERT K Ot I50.23 ACUTE ON CHRONIC SYSTOLIC (CONGESTIVE) H 03/04/2019 ALBERT ABEL DO Ot J44.1 CHRONIC OBSTRUCTIVE PULMONARY DISEASE W 03/04/2019 PAGE OBRIEN ALBERT K Ot J96.21 ACUTE AND CHRONIC RESPIRATORY FAILURE [place] 03/04/2019 ALBERT ABEL DO Ot K21.9 GASTRO-ESOPHAGEAL REFLUX DISEASE WITHOUT 03/04/2019 ALBERT ABEL DO Ot N18.3 CHRONIC KIDNEY DISEASE, STAGE 3 (MODERAT 03/04/2019 ALBERT ABEL DO Ot N40.1 BENIGN PROSTATIC HYPERPLASIA WITH LOWER 03/04/2019 ALBERT ABEL DO Ot R33.9 RETENTION OF URINE, UNSPECIFIED 03/04/2019 PAGE OBRIEN ALBERT K Ot Z79.4 DETENTION (CURRENT) USE OF INSULIN 03/04/2019 ALBERT ABEL DO Ot Z95.5 PRESENCE OF CORONARY ANGIOPLASTY IMPLANT 03/04/2019 PAGE OBRIEN ALBERT K Ot Z95.82 0 PERIPHERAL VASCULAR ANGIOPLASTY STATUS W 03/09/2019 SHILO OBRIEN FRANCA Ot 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 MELLITUS W DIABETIC BIODIESEL TECHNOLOGY MANAGER 03/09/2019 DARREN LAO DOI Ot E11.51 TYPE 2 DIABETES W DIABETIC PERIPHERAL AN 03/09/2019 DARREN LAO DOI Ot E11.59 TYPE 2 DIABETES MELLITUS WITH OTH CIRCUL 03/09/2019 DARREN LAO DOI Ot E11.64 9 TYPE 2 DIABETES MELLITUS WITH HYPOGLYCEM 03/09/2019 DARREN LAO DOI Ot E78.5 HYPERLIPIDEMIA, UNSPECIFIED 03/09/2019 SHILO OBRIEN FRANCA Ot F43.12 POST-TRAUMATIC STRESS DISORDER, CHRONIC 03/09/2019 SHILO OBRIEN FRANCA Ot I13.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 03/09/2019 DARREN LAO DOI Ot I25.10 ATHSCL HEART DISEASE OF [place] CORONARY 03/09/2019 SHILO OBRIEN FRANCA Ot I25.5 ISCHEMIC CARDIOMYOPATHY 03/09/2019 SHILO OBRIEN FRANCA Ot I48.91 UNSPECIFIED ATRIAL FIBRILLATION 03/09/2019 DARREN LAO DOI Ot I50.22 CHRONIC SYSTOLIC (CONGESTIVE) HEART FAIL 03/09/2019 SHILO OBRIEN FRANCA Ot J44.9 CHRONIC OBSTRUCTIVE PULMONARY DISEASE, U 03/09/2019 SHILO OBRIEN FRANCA Ot J96.21 ACUTE AND CHRONIC RESPIRATORY FAILURE [place] 03/09/2019 SHILO DO FRANCA Ot K21.9 GASTRO-ESOPHAGEAL REFLUX DISEASE WITHOUT 03/09/2019 LAO DO FRANCA Ot M21.37 1 FOOT DROP, RIGHT FOOT 03/09/2019 SHILO DO FRANCA Ot N17.9 ACUTE KIDNEY FAILURE, UNSPECIFIED 03/09/2019 SHILO DO FRANCA Ot N18.9 CHRONIC KIDNEY DISEASE, UNSPECIFIED 03/09/2019 LAO DO FRANCA Ot N40.1 BENIGN PROSTATIC HYPERPLASIA WITH LOWER 03/09/2019 SHILO DO FRANCA Ot R33.8 OTHER RETENTION OF URINE 03/09/2019 SHILO OBRIEN FRANCA Ot T38.3X 5A ADVERSE EFFECT OF INSULIN AND ORAL HYPOG 03/09/2019 SHILO OBRIEN FRANCA Ot Z79.4 DETENTION (CURRENT) USE OF INSULIN 03/09/2019 SHILO OBRIEN FRANCA Ot Z87.19 PERSONAL HISTORY OF OTHER DISEASES OF TH 03/09/2019 SHILO OBRIEN FRANCA Ot Z87.89 1 PERSONAL HISTORY OF NICOTINE DEPENDENCE 03/09/2019 SHILO OBRIEN FRANCA Ot Z95.0 PRESENCE OF CARDIAC PACEMAKER 03/09/2019 SHILO OBRIEN FRANCA Ot Z95.5 PRESENCE OF CORONARY ANGIOPLASTY IMPLANT 04/08/2019 RHEA BURRIS APRN Ot J18.1 LOBAR PNEUMONIA, UNSPECIFIED ORGANISM 04/08/2019 RHEA BURRIS APRN Ot J30.9 ALLERGIC RHINITIS, UNSPECIFIED 04/08/2019 RHEA BURRIS AWNING HANGER HELPER Ot J44.9 CHRONIC OBSTRUCTIVE PULMONARY DISEASE, U 04/08/2019 RHEA BURRIS AWNING HANGER HELPER Ot J90 PLEURAL EFFUSION, NOT ELSEWHERE CLASSIFI 04/08/2019 RHEA BURRIS AWNING HANGER HELPER Ot Z87.891 PERSONAL HISTORY OF NICOTINE DEPENDENCE 04/28/2019 RHEA BURRIS AWNING HANGER HELPER Ot J18.1 LOBAR PNEUMONIA, UNSPECIFIED ORGANISM 04/28/2019 RHEA BURRIS AWNING HANGER HELPER Ot J30.9 ALLERGIC RHINITIS, UNSPECIFIED 04/28/2019 RHEA BURRIS AWNING HANGER HELPER Ot J44.9 CHRONIC OBSTRUCTIVE PULMONARY DISEASE, U 04/28/2019 FATUMA, RHEA E AWNING HANGER HELPER Ot J90 PLEURAL EFFUSION, NOT ELSEWHERE CLASSIFI 04/28/2019 RHEA BURRIS AWNING HANGER HELPER Ot Z87.891 PERSONAL HISTORY OF NICOTINE DEPENDENCE 04/28/2019 MARINA MILLER, M JORDAN Ot E78 .5 HYPERLIPIDEMIA, UNSPECIFIED 04/28/2019 Jose GRAY MD Ot I10 ESSENTIAL (PRIMARY) HYPERTENSION 04/28/2019 Jose GRAY MD Ot I25.10 ATHSCL HEART DISEASE OF [place] CORONARY 04/28/2019 MARINA MILLER, M JORDAN Ot I25 .5 ISCHEMIC CARDIOMYOPATHY 04/28/2019 MARINA MILLER, Jose ORTEGA Ot I73 .9 PERIPHERAL VASCULAR DISEASE, UNSPECIFIED 04/28/2019 RHEA BURRIS APRN Ot J18.1 LOBAR PNEUMONIA, UNSPECIFIED ORGANISM 04/28/2019 RHEA BURRIS APRN Ot J30.9 ALLERGIC RHINITIS, UNSPECIFIED 04/28/2019 RHEA BURRIS APRN Ot J44.9 CHRONIC OBSTRUCTIVE PULMONARY DISEASE, U 04/28/2019 RHEA BURRIS AWNING HANGER HELPER Ot J90 PLEURAL EFFUSION, NOT ELSEWHERE CLASSIFI 04/28/2019 RHEA BURRIS AWNING HANGER HELPER Ot Z87.891 PERSONAL HISTORY OF NICOTINE DEPENDENCE 05/06/2019 MARINA MILLER, SARITA R Ot N18 .3 CHRONIC KIDNEY DISEASE, STAGE 3 (MODERAT 05/18/2019 RHEA BURRIS APRN Ot J30.9 ALLERGIC RHINITIS, UNSPECIFIED 05/18/2019 RHEA BURRIS APRN Ot J44.9 CHRONIC OBSTRUCTIVE PULMONARY DISEASE, U 05/18/2019 RHEA BURRIS AWNING HANGER HELPER Ot Z87.891 PERSONAL HISTORY OF NICOTINE DEPENDENCE 05/25/2019 MARINA MILLER, SARITA R Ot N18 .3 CHRONIC KIDNEY DISEASE, STAGE 3 (MODERAT 06/01/2019 RHEA BURRIS AWNING HANGER HELPER Ot I51.7 CARDIOMEGALY 06/01/2019 RHEA BURRIS AWNING HANGER HELPER Ot I70.0 ATHEROSCLEROSIS OF [place] 06/01/2019 RHEA BURRIS AWNING HANGER HELPER Ot J30.9 ALLERGIC RHINITIS, UNSPECIFIED 06/01/2019 RHEA BURRIS AWNING HANGER HELPER Ot J43.9 EMPHYSEMA, UNSPECIFIED 06/01/2019 [place] ASCENCIOINE Fernando AWNING HANGER HELPER Ot J98.4 OTHER DISORDERS OF LUNG 06/01/2019 [place] ASCENCIOINE Fernando AWNING HANGER HELPER Ot R04.2 HEMOPTYSIS 06/01/2019 [place] ASCENCIOINE Fernando AWNING HANGER HELPER Ot Z87.891 PERSONAL HISTORY OF NICOTINE DEPENDENCE 06/01/2019 MARTINEZ JAVIER OBRIEN D Ot K26. 4 CHRONIC OR UNSPECIFIED DUODENAL ULCER WI 06/01/2019 MARTINEZ EN OBRIENTT D Ot K29. 71 GASTRITIS, UNSPECIFIED, WITH BLEEDING 06/03/2019 [place] ASCENCIOINE E AWNING HANGER HELPER Ot I51.7 CARDIOMEGALY 06/03/2019 [place] ASCENCIOINE Fernando AWNING HANGER HELPER Ot I70.0 ATHEROSCLEROSIS OF [place] 06/03/2019 FATUMA, RHEA E AWNING HANGER HELPER Ot J30.9 ALLERGIC RHINITIS, UNSPECIFIED 06/03/2019 [place] ASCENCIOINE E AWNING HANGER HELPER Ot J43.9 EMPHYSEMA, UNSPECIFIED 06/03/2019 FATUMA[place] ASCENCIOINE E AWNING HANGER HELPER Ot J98.4 OTHER DISORDERS OF LUNG 06/03/2019 [place]UMA[place] ASCENCIOINE Fernando AWNING HANGER HELPER Ot R04.2 HEMOPTYSIS 06/03/2019 [place]UMA[place] ASCENCIOINE Fernando AWNING HANGER HELPER Ot Z87.891 PERSONAL HISTORY OF NICOTINE DEPENDENCE 06/20/2019 FATUMA[place] ASCENCIOINE Fernando AWNING HANGER HELPER Ot I51.7 CARDIOMEGALY 06/20/2019 [place] ASCENCIOINE Fernando AWNING HANGER HELPER Ot I70.0 ATHEROSCLEROSIS OF [place] 06/20/2019 [place]UMA[place] ASCENCIOINE Fernando AWNING HANGER HELPER Ot J30.9 ALLERGIC RHINITIS, UNSPECIFIED 06/20/2019 [place] ASCENC[place] Fernando AWNING HANGER HELPER Ot J43.9 EMPHYSEMA, UNSPECIFIED 06/20/2019 [place] ASCENC[place] Fernando AWNING HANGER HELPER Ot J98.4 OTHER DISORDERS OF LUNG 06/20/2019 [place] ASCENC[place] Fernando AWNING HANGER HELPER Ot R04.2 HEMOPTYSIS 06/20/2019 [place] ASCENC[place]INE Fernando AWNING HANGER HELPER Ot Z87.891 PERSONAL HISTORY OF NICOTINE DEPENDENCE 09/01/2019 JAVIER MARTINEZ DO D Ot K26. 4 CHRONIC OR UNSPECIFIED DUODENAL ULCER [place] 09/01/2019 EN MARTINEZ DOTT D Ot K29. 71 GASTRITIS, UNSPECIFIED, WITH BLEEDING 09/01/2019 Jose GRAY MD Ot E78 .5 HYPERLIPIDEMIA, UNSPECIFIED 09/01/2019 Jose GRAY MD JORDAN Ot I10 ESSENTIAL (PRIMARY) HYPERTENSION 09/01/2019 MARINA MILLER, Jose ORTEGA Ot I25.10 ATHSCL HEART DISEASE OF [place] CORONARY 09/01/2019 MARINA MILLER, Jose ORTEGA Ot I25 .5 ISCHEMIC CARDIOMYOPATHY 09/01/2019 MARINA MILLER, Jose ORTEGA Ot I73 .9 PERIPHERAL VASCULAR DISEASE, UNSPECIFIED 09/01/2019 RHEA BURRIS AWNING HANGER HELPER Ot J30.9 ALLERGIC RHINITIS, UNSPECIFIED 09/01/2019 RHEA BURRIS AWNING HANGER HELPER Ot J44.9 CHRONIC OBSTRUCTIVE PULMONARY DISEASE, U 09/01/2019 RHEA BURRIS AWNING HANGER HELPER Ot Z87.891 PERSONAL HISTORY OF NICOTINE DEPENDENCE 09/01/2019 RHEA BURRIS AWNING HANGER HELPER Ot J18.1 LOBAR PNEUMONIA, UNSPECIFIED ORGANISM 09/01/2019 RHEA BURRIS AWNING HANGER HELPER Ot J30.9 ALLERGIC RHINITIS, UNSPECIFIED 09/01/2019 RHEA BURRIS AWNING HANGER HELPER Ot J44.9 CHRONIC OBSTRUCTIVE PULMONARY DISEASE, U 09/01/2019 RHEA BURRIS AWNING HANGER HELPER Ot J90 PLEURAL EFFUSION, NOT ELSEWHERE CLASSIFI 09/01/2019 [place] BURRISINE E AWNING HANGER HELPER Ot Z87.891 PERSONAL HISTORY OF NICOTINE DEPENDENCE 09/01/2019 RHEA BURRIS AWNING HANGER HELPER Ot I51.7 CARDIOMEGALY 09/01/2019 RHEA BURRIS AWNING HANGER HELPER Ot I70.0 ATHEROSCLEROSIS OF [place] 09/01/2019 RHEA BURRIS AWNING HANGER HELPER Ot J30.9 ALLERGIC RHINITIS, UNSPECIFIED 09/01/2019 RHEA BURRIS AWNING HANGER HELPER Ot J43.9 EMPHYSEMA, UNSPECIFIED 09/01/2019 RHEA BURRIS AWNING HANGER HELPER Ot J98.4 OTHER DISORDERS OF LUNG 09/01/2019 RHEA BURRIS AWNING HANGER HELPER Ot R04.2 HEMOPTYSIS 09/01/2019 RHEA BURRIS AWNING HANGER HELPER Ot Z87.891 PERSONAL HISTORY OF NICOTINE DEPENDENCE 09/01/2019 MARINA MILLER, SARITA Croft Ot N18 .3 CHRONIC KIDNEY DISEASE, STAGE 3 (MODERAT 09/06/2019 JAVIER MARTINEZ DO Ot K26. 4 CHRONIC OR UNSPECIFIED DUODENAL ULCER [place] 09/06/2019 MARTINEZ DO, JAVIER D Ot K29. 71 GASTRITIS, UNSPECIFIED, WITH BLEEDING 09/06/2019 MARINA MILLER, Jose ORTEGA Ot E78 .5 HYPERLIPIDEMIA, UNSPECIFIED 09/06/2019 MARINA MILLER, Jose ORTEGA Ot I10 ESSENTIAL (PRIMARY) HYPERTENSION 09/06/2019 MARINA MILLER, Jose ORTEGA Ot I25.10 ATHSCL HEART DISEASE OF [place] CORONARY 09/06/2019 MARINA MILLER, Jose ORTEGA Ot I25 .5 ISCHEMIC CARDIOMYOPATHY 09/06/2019 MARINA MILLER, Jose ORTEGA Ot I73 .9 PERIPHERAL VASCULAR DISEASE, UNSPECIFIED 09/06/2019 [place] BURRISINE E AWNING HANGER HELPER Ot J30.9 ALLERGIC RHINITIS, UNSPECIFIED 09/06/2019 [place] BURRISINE E AWNING HANGER HELPER Ot J44.9 CHRONIC OBSTRUCTIVE PULMONARY DISEASE, U 09/06/2019 RHEA BURRIS AWNING HANGER HELPER Ot Z87.891 PERSONAL HISTORY OF NICOTINE DEPENDENCE 09/06/2019 RHEA BURRIS AWNING HANGER HELPER Ot J18.1 LOBAR PNEUMONIA, UNSPECIFIED ORGANISM 09/06/2019 [place] BURRISINE E AWNING HANGER HELPER Ot J30.9 ALLERGIC RHINITIS, UNSPECIFIED 09/06/2019 [place] BURRISINE E AWNING HANGER HELPER Ot J44.9 CHRONIC OBSTRUCTIVE PULMONARY DISEASE, U 09/06/2019 [place] BURRISINE Fernando AWNING HANGER HELPER Ot J90 PLEURAL EFFUSION, NOT ELSEWHERE CLASSIFI 09/06/2019 [place] BURRISINE E AWNING HANGER HELPER Ot Z87.891 PERSONAL HISTORY OF NICOTINE DEPENDENCE 09/06/2019 RHEA BURRIS AWNING HANGER HELPER Ot I51.7 CARDIOMEGALY 09/06/2019 RHEA BURRIS AWNING HANGER HELPER Ot I70.0 ATHEROSCLEROSIS OF [place] 09/06/2019 RHEA BURRIS AWNING HANGER HELPER Ot J30.9 ALLERGIC RHINITIS, UNSPECIFIED 09/06/2019 [place] BURRISINE E AWNING HANGER HELPER Ot J43.9 EMPHYSEMA, UNSPECIFIED 09/06/2019 [place] BURRISINE E AWNING HANGER HELPER Ot J98.4 OTHER DISORDERS OF LUNG 09/06/2019 [place] BURRISINE Fernando AWNING HANGER HELPER Ot R04.2 HEMOPTYSIS 09/06/2019 [place] BURRISINE E AWNING HANGER HELPER Ot Z87.891 PERSONAL HISTORY OF NICOTINE DEPENDENCE 09/06/2019 MARINA MILLER, SARITA R Ot N18 .3 CHRONIC KIDNEY DISEASE, STAGE 3 (MODERAT 09/08/2019 RHEA BURRIS APRN Ot J44.9 CHRONIC OBSTRUCTIVE PULMONARY DISEASE, U 09/08/2019 RHEA BURRIS APRN Ot K82.8 OTHER SPECIFIED DISEASES OF [place] 09/08/2019 RHEA BURRIS APRN Ot Z87.891 PERSONAL HISTORY OF NICOTINE DEPENDENCE 10/14/2019 RHEA BURRIS APRN Ot J44.9 CHRONIC OBSTRUCTIVE PULMONARY DISEASE, U 10/14/2019 RHEA BURRIS APRN Ot K82.8 OTHER SPECIFIED DISEASES OF GALLBLADDER 10/14/2019 RHEA BURRIS APRN Ot Z87.891 PERSONAL HISTORY OF NICOTINE DEPENDENCE Procedures Code [place] [address] A1C (IN-HOUSE) 09/21/2012 73059 A1C (IN-HOUSE) 01/30/2014 25361 MICR O ALBUMIN-IN HOUSE 01/30/2014 97317 MICR OALBUMIN 01/30/2014 67178 ROUT INE VENIPUNCTURE 02/20/2014 60059 CMP 02/20/2014 90038 LIPI D PANEL 02/20/2014 [id number] GF R CALC (RESULT ONLY) 02/20/2014 10409 CBC 02/20/2014 [id number] EX CISION OF ESOPHAGOGASTRIC JUNCTION, EN 07/08/2018 [id number] EX CISION OF STOMACH, PYLORUS, ENDO, DIAG 07/08/2018 [id number] EX CISION OF DUODENUM, ENDO, DIAGN 07/08/2018 [id number] DI LATION OF 1 COR ART WITH 2 DRUG-ELUT, 07/16/2018 [id number] ME ASURE OF CARDIAC SAMPL PRESSURE, L H 07/16/2018 [id number] FL UOROSCOPY OF MULT COR ART USING L OSM 07/16/2018 [id number] FL UOROSCOPY OF THORACIC AORTA USING LOW 07/16/2018 [id number] FL UOROSCOPY OF THORACO- ABDOMINAL AORTA U 07/16/2018 [id number] OC CLUSION OF DUODENUM WITH INTRALUMINAL 07/23/2018 [id number] CO NTROL BLEEDING IN GASTROINTESTINAL TRA 07/23/2018 [id number] IN SERTION OF OTHER DEVICE INTO GASTROINT 07/23/2018 [id number] IN TRODUCTION OF OTH THERAP SUBST INTO LO 07/23/2018 [id number] CO NTROL BLEEDING IN GASTROINTESTINAL TRA 07/29/2018 [id number] IN TRODUCTION OF OTH THERAP SUBST INTO LO 07/29/2018 [id number] CO NTROL BLEEDING IN GASTROINTESTINAL TRA 07/31/2018 [id number] IN TRODUCTION OF OTH THERAP SUBST INTO LO 07/31/2018 [id number] IN SPECTION OF BLADDER, ENDO 02/25/2019 Results Test Result Range TSH - 06/24/18 09:41 TSH 1.62 mIU/L 0.40-4.50 Capillary blood glucose measurement by g lucometer (mass/volume) - 07/06/18 22:44 Capillary blood glucose measurement by glucometer (mas s/volume) > mg/dL 70-110 Complete blood count (CBC) with automate d white blood cell (WBC) differential - 07/06/18 22:44 Blood leukocytes automated count (number/volume) 13.6 10*3/uL 4.3-11.0 Blood erythrocytes automated count (number/volume) 2.39 10*6/uL 4.35-5.85 Venous blood hemoglobin measurement (mass/volume) 7.2 g/dL 13.3-17.7 Blood hematocrit (volume fraction) 23 % 40-54 Automated erythrocyte mean corpuscular volume 94 [ foz_us] 80-99 Automated erythrocyte mean corpuscular h emoglobin (mass per erythrocyte) 30 pg 25-34 Automated erythrocyte mean corpuscular h emoglobin concentration measurement (mass/volume) 32 g/dL 32-36 Automated erythrocyte distribution width ratio 14. 7 % 10.0- 14.5 Automated blood platelet count (count/volume) 270 10*3/uL 130-400 Automated blood platelet mean volume measurement 10.7 [foz_us] 7.4-10.4 Automated blood neutrophils/100 leukocytes 89 % 42-75 Automated blood lymphocytes/100 leukocytes 6 % 12-44 Blood monocytes/100 leukocytes 5 % 0-12 Automated blood eosinophils/100 leukocytes 0 % 0-10 Automated blood basophils/100 leukocytes 0 % 0-10 Blood neutrophils automated count (number/volume) 12.1 10*3 1.8-7.8 Blood lymphocytes automated count (number/volume) 0.8 10*3 1.0-4.0 Blood monocytes automated count (number/volume) 0. 6 10*3 0.0-1.0 Automated eosinophil count 0.0 10*3/uL 0 .0-0.3 Automated blood basophil count (count/volume) 0.0 10*3/uL 0.0-0.1 RED CELLS LEUKO REDUCED AS1 - 07/06/18 2 2:44 RED CELLS LEUKO REDUCED AS1 T RANSFUSED 07/09/18 1120 NRG Blood type T Indirect antibody screen pa rachel - 07/06/18 22:44 ABO+Rh group OP NRG Transfusion band number [id number] NRG Blood group antibody screen NEGATIVE NR G Blood manual differential performed dete ction - 07/06/18 22:44 Blood monocytes/100 leukocytes 1 % NRG Manual blood segmented neutrophils/100 leukocytes 91 % NRG Blood band neutrophils/100 leukocytes 0 % NRG Manual blood lymphocytes/100 leukocytes 8 % NRG Manual eosinophils/100 leukocytes in nose 0 % NRG Manual blood basophils/100 leukocytes 0 % NRG Blood polychromasia detection by light microscopy SLIGHT NRG Blood anisocytosis detection by light microscopy S LIGHT NRG Blood macrocytes detection by light microscopy SLI GHT NRG Blood toxic granules detection by light microscopy 1+ NRG Comprehensive metabolic panel - 07/06/18 22:44 Serum or plasma sodium measurement (moles/volume) 134 mmol/L 135-145 Serum or plasma potassium measurement (moles/volume) 4.0 mmol/L 3.6-5.0 Serum or plasma chloride measurement (moles/volume) 91 mmol/L 98-107 Carbon dioxide 23 mmol/L 21-32 Serum or plasma anion gap determination (moles/volume) 20 mmol/L 5-14 Serum or plasma urea nitrogen measurement (mass/volume ) 61 mg/dL 7-18 Serum or plasma creatinine measurement (mass/volume) 1.95 mg/dL 0.60-1.30 Serum or plasma urea nitrogen/creatinine mass ratio 31 NRG Serum or plasma creatinine measurement w ith calculation of estimated glomerular filtration rate 34 NRG Serum or plasma glucose measurement (mass/volume) 726 mg/dL 70-105 Serum or plasma calcium measurement (mass/volume) 8.2 mg/dL 8.5-10.1 Serum or plasma total bilirubin measurement (mass/volu me) 0.3 mg/dL 0.1-1.0 Serum or plasma alkaline phosphatase tino surement (enzymatic activity/volume) 67 U/L 40-136 Serum or plasma aspartate aminotransfera se measurement (enzymatic activity/volume) 22 U/L 5-34 Serum or plasma alanine aminotransferase measurement (enzymatic activity/volume) 27 U/L 0-55 Serum or plasma protein measurement (mass/volume) 4.4 g/dL 6.4-8.2 Serum or plasma albumin measurement (mass/volume) 2.9 g/dL 3.2-4.5 CALCIUM CORRECTED 9.1 mg/dL 8.5-10.1 Magnesium - 07/06/18 22:44 Magnesium 2.0 mg/dL 1.8-2.4 PT panel in platelet poor plasma by coag ulation assay - 07/06/18 22:44 Prothrombin time (PT) in platelet poor plasma by coagu lation assay 13.5 s 12.2-14.7 INR in platelet poor plasma or blood by coagulation as say 1.0 0.8-1.4 Activated partial thromboplastin time (a PTT) in platelet poor plasma bycoagulation assay - 07/06/18 22:44 Activated partial thromboplastin time (a PTT) in platelet poor plasma bycoagulation assay < s 24-35 Blood lactic acid measurement (moles/vol ume) - 07/06/18 22:44 Blood lactic acid measurement (moles/volume) 9.03 mmol/L 0.50-2.00 Bacterial blood culture - 07/06/18 22:44 Bacterial blood culture NG NRG Complete urinalysis with reflex to cultu re - 07/06/18 23:25 Urine color determination YELLOW NRG Urine clarity determination CLEAR NR G Urine pH measurement by test strip 7 5-9 Specific gravity of urine by test strip 1.005 1.016-1.022 Urine protein assay by test strip, semi-quantitative 1+ NEGATIVE Urine glucose detection by automated test strip 4+ NEGATIVE Erythrocytes detection in urine sediment by light micr oscopy NEGATIVE NEGATIVE Urine ketones detection by automated test strip 1+ NEGATIVE Urine nitrite detection by test strip NEGATIVE NEGATIVE Urine total bilirubin detection by test strip NEGA TIVE NEGATIVE Urine urobilinogen measurement by automated test strip (mass/volume) NORMAL NORMAL Urine leukocyte esterase detection by dipstick NEG ATIVE NEGATIVE Automated urine sediment erythrocyte cou nt by microscopy (number/high power field) NONE NRG Automated urine sediment leukocyte count by microscopy (number/high power field) NONE NRG Bacteria detection in urine sediment by light microsco py TRACE NRG Squamous epithelial cells detection in u rine sediment by light microscopy 0-2 NRG Crystals detection in urine sediment by light microsco py NONE NRG Casts detection in urine sediment by light microscopy PRESENT NRG Mucus detection in urine sediment by light microscopy NEGATIVE NRG Complete urinalysis with reflex to culture NO NRG Hyaline casts detection in urine sediment by light thomas roscopy RARE NRG Bacterial urine culture - 07/06/18 23:25 Bacterial urine culture NG NRG Capillary blood glucose measurement by g lucometer (mass/volume) - 07/07/18 00:22 Capillary blood glucose measurement by glucometer (mas s/volume) > mg/dL 70-110 Bacterial blood culture - 07/07/18 00:23 Bacterial blood culture NG NRG Serum or plasma lactate measurement (mol es/volume) - 07/07/18 00:50 Serum or plasma lactate measurement (moles/volume) 4.07 mmol/L 0.50-2.00 Methicillin resistant Staphylococcus aur eus (MRSA) screening culture - 07/07/18 01:50 Methicillin resistant Staphylococcus aureus (MRSA) scr eening culture NEG NRG Capillary blood glucose measurement by g lucometer (mass/volume) - 07/07/18 01:58 Capillary blood glucose measurement by glucometer (mas s/volume) 464 mg/dL 70-110 Capillary blood glucose measurement by g lucometer (mass/volume) - 07/07/18 02:56 Capillary blood glucose measurement by glucometer (mas s/volume) 426 mg/dL 70-110 Complete blood count (CBC) with automate d white blood cell (WBC) differential - 07/07/18 03:10 Blood leukocytes automated count (number/volume) 14.8 10*3/uL 4.3-11.0 Blood erythrocytes automated count (number/volume) 2.69 10*6/uL 4.35-5.85 Venous blood hemoglobin measurement (mass/volume) 8.0 g/dL 13.3-17.7 Blood hematocrit (volume fraction) 24 % 40-54 Automated erythrocyte mean corpuscular volume 90 [ foz_us] 80-99 Automated erythrocyte mean corpuscular h emoglobin (mass per erythrocyte) 30 pg 25-34 Automated erythrocyte mean corpuscular h emoglobin concentration measurement (mass/volume) 33 g/dL 32-36 Automated erythrocyte distribution width ratio 15. 2 % 10.0- 14.5 Automated blood platelet count (count/volume) 245 10*3/uL 130-400 Automated blood platelet mean volume measurement 10.1 [foz_us] 7.4-10.4 Automated blood neutrophils/100 leukocytes 89 % 42-75 Automated blood lymphocytes/100 leukocytes 8 % 12-44 Blood monocytes/100 leukocytes 4 % 0-12 Automated blood eosinophils/100 leukocytes 0 % 0-10 Automated blood basophils/100 leukocytes 0 % 0-10 Blood neutrophils automated count (number/volume) 13.1 10*3 1.8-7.8 Blood lymphocytes automated count (number/volume) 1.2 10*3 1.0-4.0 Blood monocytes automated count (number/volume) 0. 5 10*3 0.0-1.0 Automated eosinophil count 0.0 10*3/uL 0 .0-0.3 Automated blood basophil count (count/volume) 0.0 10*3/uL 0.0-0.1 Blood lactic acid measurement (moles/vol ume) - 07/07/18 03:10 Blood lactic acid measurement (moles/volume) 3.06 mmol/L 0.50-2.00 Comprehensive metabolic panel - 07/07/18 03:10 Serum or plasma sodium measurement (moles/volume) 139 mmol/L 135-145 Serum or plasma potassium measurement (moles/volume) 3.2 mmol/L 3.6-5.0 Serum or plasma chloride measurement (moles/volume) 97 mmol/L 98-107 Carbon dioxide 29 mmol/L 21-32 Serum or plasma anion gap determination (moles/volume) 13 mmol/L 5-14 Serum or plasma urea nitrogen measurement (mass/volume ) 53 mg/dL 7-18 Serum or plasma creatinine measurement (mass/volume) 1.61 mg/dL 0.60-1.30 Serum or plasma urea nitrogen/creatinine mass ratio 33 NRG Serum or plasma creatinine measurement w ith calculation of estimated glomerular filtration rate 43 NRG Serum or plasma glucose measurement (mass/volume) 412 mg/dL 70-105 Serum or plasma calcium measurement (mass/volume) 8.4 mg/dL 8.5-10.1 Serum or plasma total bilirubin measurement (mass/volu me) 0.8 mg/dL 0.1-1.0 Serum or plasma alkaline phosphatase tino surement (enzymatic activity/volume) 59 U/L 40-136 Serum or plasma aspartate aminotransfera se measurement (enzymatic activity/volume) 20 U/L 5-34 Serum or plasma alanine aminotransferase measurement (enzymatic activity/volume) 27 U/L 0-55 Serum or plasma protein measurement (mass/volume) 4.4 g/dL 6.4-8.2 Serum or plasma albumin measurement (mass/volume) 2.9 g/dL 3.2-4.5 CALCIUM CORRECTED 9.3 mg/dL 8.5-10.1 Serum or plasma phosphate measurement (m ass/volume) - 07/07/18 03:10 Serum or plasma phosphate measurement (mass/volume) 3.4 mg/dL 2.3-4.7 Magnesium - 07/07/18 03:10 Magnesium 2.0 mg/dL 1.8-2.4 Capillary blood glucose measurement by g lucometer (mass/volume) - 07/07/18 03:53 Capillary blood glucose measurement by glucometer (mas s/volume) 357 mg/dL 70-110 Capillary blood glucose measurement by g lucometer (mass/volume) - 07/07/18 05:02 Capillary blood glucose measurement by glucometer (mas s/volume) 233 mg/dL 70-110 Serum or plasma lactate measurement (mol es/volume) - 07/07/18 05:12 Serum or plasma lactate measurement (moles/volume) 2.40 mmol/L 0.50-2.00 Bacterial blood culture - 07/07/18 05:15 Bacterial blood culture NG [facility] Bacterial blood culture - 07/07/18 05:24 Bacterial blood culture NG [facility] Capillary blood glucose measurement by g lucometer (mass/volume) - 07/07/18 05:29 Capillary blood glucose measurement by glucometer (mas s/volume) 189 mg/dL 70-110 Capillary blood glucose measurement by g lucometer (mass/volume) - 07/07/18 06:45 Capillary blood glucose measurement by glucometer (mas s/volume) 104 mg/dL 70-110 Capillary blood glucose measurement by g lucometer (mass/volume) - 07/07/18 07:21 Capillary blood glucose measurement by glucometer (mas s/volume) 118 mg/dL 70-110 Capillary blood glucose measurement by g lucometer (mass/volume) - 07/07/18 08:25 Capillary blood glucose measurement by glucometer (mas s/volume) 83 mg/dL 70-110 Blood lactic acid measurement (moles/vol ume) - 07/07/18 11:40 Blood lactic acid measurement (moles/volume) 0.99 mmol/L 0.50-2.00 Whole blood basic metabolic panel - 06/24 12/09 11:40 Serum or plasma sodium measurement (moles/volume) 143 mmol/L 135-145 Serum or plasma potassium measurement (moles/volume) 3.7 mmol/L 3.6-5.0 Serum or plasma chloride measurement (moles/volume) 104 mmol/L 98-107 Carbon dioxide 29 mmol/L 21-32 Serum or plasma anion gap determination (moles/volume) 10 mmol/L 5-14 Serum or plasma urea nitrogen measurement (mass/volume ) 43 mg/dL 7-18 Serum or plasma creatinine measurement (mass/volume) 1.37 mg/dL 0.60-1.30 Serum or plasma urea nitrogen/creatinine mass ratio 31 NRG Serum or plasma creatinine measurement w ith calculation of estimated glomerular filtration rate 52 NRG Serum or plasma glucose measurement (mass/volume) 139 mg/dL 70-105 Serum or plasma calcium measurement (mass/volume) 8.3 mg/dL 8.5-10.1 Capillary blood glucose measurement by g lucometer (mass/volume) - 07/07/18 12:08 Capillary blood glucose measurement by glucometer (mas s/volume) 187 mg/dL 70-110 Whole blood hemoglobin and hematocrit massiel ramos - 07/07/18 13:13 Venous blood hemoglobin measurement (mass/volume) 7.2 g/dL 13.3-17.7 Blood hematocrit (volume fraction) 23 % 40-54 Venous blood hemoglobin measurement (mas s/volume) - 07/07/18 16:35 Venous blood hemoglobin measurement (mass/volume) 6.9 g/dL 13.3-17.7 Capillary blood glucose measurement by g lucometer (mass/volume) - 07/07/18 17:54 Capillary blood glucose measurement by glucometer (mas s/volume) 145 mg/dL 70-110 Whole blood hemoglobin and hematocrit massiel ramos - 07/07/18 23:33 Venous blood hemoglobin measurement (mass/volume) 6.0 g/dL 13.3-17.7 Blood hematocrit (volume fraction) 19 % 40-54 Capillary blood glucose measurement by g lucometer (mass/volume) - 07/08/18 00:50 Capillary blood glucose measurement by glucometer (mas s/volume) 153 mg/dL 70-110 Automated blood complete blood count (he mogram) panel - 07/08/18 04:24 Blood leukocytes automated count (number/volume) 11.8 10*3/uL 4.3-11.0 Blood erythrocytes automated count (number/volume) 2.36 10*6/uL 4.35-5.85 Venous blood hemoglobin measurement (mass/volume) 7.1 g/dL 13.3-17.7 Blood hematocrit (volume fraction) 22 % 40-54 Automated erythrocyte mean corpuscular volume 95 [ foz_us] 80-99 Automated erythrocyte mean corpuscular h emoglobin (mass per erythrocyte) 30 pg 25-34 Automated erythrocyte mean corpuscular h emoglobin concentration measurement (mass/volume) 32 g/dL 32-36 Automated erythrocyte distribution width ratio 16. 7 % 10.0- 14.5 Automated blood platelet count (count/volume) 200 10*3/uL 130-400 Automated blood platelet mean volume measurement 9.5 [foz_us] 7.4-10.4 Whole blood basic metabolic panel - 06/24 01/08 04:24 Serum or plasma sodium measurement (moles/volume) 143 mmol/L 135-145 Serum or plasma potassium measurement (moles/volume) 3.7 mmol/L 3.6-5.0 Serum or plasma chloride measurement (moles/volume) 112 mmol/L 98-107 Carbon dioxide 23 mmol/L 21-32 Serum or plasma anion gap determination (moles/volume) 8 mmol/L 5-14 Serum or plasma urea nitrogen measurement (mass/volume ) 30 mg/dL 7-18 Serum or plasma creatinine measurement (mass/volume) 0.99 mg/dL 0.60-1.30 Serum or plasma urea nitrogen/creatinine mass ratio 30 NRG Serum or plasma creatinine measurement w ith calculation of estimated glomerular filtration rate > NRG Serum or plasma glucose measurement (mass/volume) 156 mg/dL 70-105 Serum or plasma calcium measurement (mass/volume) 7.7 mg/dL 8.5-10.1 Capillary blood glucose measurement by g lucometer (mass/volume) - 07/08/18 12:52 Capillary blood glucose measurement by glucometer (mas s/volume) 258 mg/dL 70-110 Whole blood hemoglobin and hematocrit massiel cabreral - 07/08/18 15:41 Venous blood hemoglobin measurement (mass/volume) 7.1 g/dL 13.3-17.7 Blood hematocrit (volume fraction) 22 % 40-54 Capillary blood glucose measurement by g lucometer (mass/volume) - 07/08/18 16:17 Capillary blood glucose measurement by glucometer (mas s/volume) 261 mg/dL 70-110 Capillary blood glucose measurement by g lucometer (mass/volume) - 07/08/18 21:23 Capillary blood glucose measurement by glucometer (mas s/volume) 312 mg/dL 70-110 Automated blood complete blood count (he mogram) panel - 07/09/18 05:10 Blood leukocytes automated count (number/volume) 7.9 10*3/uL 4.3-11.0 Blood erythrocytes automated count (number/volume) 1.89 10*6/uL 4.35-5.85 Venous blood hemoglobin measurement (mass/volume) 5.8 g/dL 13.3-17.7 Blood hematocrit (volume fraction) 18 % 40-54 Automated erythrocyte mean corpuscular volume 96 [ foz_us] 80-99 Automated erythrocyte mean corpuscular h emoglobin (mass per erythrocyte) 31 pg 25-34 Automated erythrocyte mean corpuscular h emoglobin concentration measurement (mass/volume) 32 g/dL 32-36 Automated erythrocyte distribution width ratio 17. 4 % 10.0- 14.5 Automated blood platelet count (count/volume) 187 10*3/uL 130-400 Automated blood platelet mean volume measurement 9.8 [foz_us] 7.4-10.4 Whole blood basic metabolic panel - 06/24 02/08 05:10 Serum or plasma sodium measurement (moles/volume) 142 mmol/L 135-145 Serum or plasma potassium measurement (moles/volume) 3.3 mmol/L 3.6-5.0 Serum or plasma chloride measurement (moles/volume) 114 mmol/L 98-107 Carbon dioxide 21 mmol/L 21-32 Serum or plasma anion gap determination (moles/volume) 7 mmol/L 5-14 Serum or plasma urea nitrogen measurement (mass/volume ) 22 mg/dL 7-18 Serum or plasma creatinine measurement (mass/volume) 0.83 mg/dL 0.60-1.30 Serum or plasma urea nitrogen/creatinine mass ratio 27 NRG Serum or plasma creatinine measurement w ith calculation of estimated glomerular filtration rate > NRG Serum or plasma glucose measurement (mass/volume) 206 mg/dL 70-105 Serum or plasma calcium measurement (mass/volume) 7.5 mg/dL 8.5-10.1 Capillary blood glucose measurement by g lucometer (mass/volume) - 07/09/18 06:04 Capillary blood glucose measurement by glucometer (mas s/volume) 252 mg/dL 70-110 Capillary blood glucose measurement by g lucometer (mass/volume) - 07/09/18 11:15 Capillary blood glucose measurement by glucometer (mas s/volume) 240 mg/dL 70-110 Whole blood hemoglobin and hematocrit pa rachel - 07/09/18 15:55 Venous blood hemoglobin measurement (mass/volume) 7.9 g/dL 13.3-17.7 Blood hematocrit (volume fraction) 24 % 40-54 Capillary blood glucose measurement by g lucometer (mass/volume) - 07/09/18 16:04 Capillary blood glucose measurement by glucometer (mas s/volume) 222 mg/dL 70-110 Capillary blood glucose measurement by g lucometer (mass/volume) - 07/09/18 20:33 Capillary blood glucose measurement by glucometer (mas s/volume) 177 mg/dL 70-110 Automated blood complete blood count ( mogram) panel - 07/10/18 04:05 Blood leukocytes automated count (number/volume) 9.4 10*3/uL 4.3-11.0 Blood erythrocytes automated count (number/volume) 2.90 10*6/uL 4.35-5.85 Venous blood hemoglobin measurement (mass/volume) 9.0 g/dL 13.3-17.7 Blood hematocrit (volume fraction) 27 % 40-54 Automated erythrocyte mean corpuscular volume 94 [ foz_us] 80-99 Automated erythrocyte mean corpuscular h emoglobin (mass per erythrocyte) 31 pg 25-34 Automated erythrocyte mean corpuscular h emoglobin concentration measurement (mass/volume) 33 g/dL 32-36 Automated erythrocyte distribution width ratio 18. 4 % 10.0- 14.5 Automated blood platelet count (count/volume) 210 10*3/uL 130-400 Automated blood platelet mean volume measurement 9.6 [foz_us] 7.4-10.4 Serum or plasma troponin i.cardiac measu rement (mass/volume) - 07/10/18 04:05 Serum or plasma troponin i.cardiac measurement (mass/v olume) < ng/mL <0.30 Lipid 1996 panel - 07/10/18 04:05 Serum or plasma triglyceride measurement (mass/volume) 103 mg/dL <150 Serum or plasma cholesterol measurement (mass/volume) 101 mg/dL < 200 Serum or plasma cholesterol in HDL measurement (mass/v olume) 38 mg/dL 40-60 Cholesterol in LDL [mass/volume] in serum or plasma by direct assay 38 mg/dL 1-129 Serum or plasma cholesterol in VLDL measurement (mass/ volume) 21 mg/dL 5-40 Serum or plasma lithium measurement (mol es/volume) - 07/10/18 04:05 BNP level 992.5 pg/mL <100.0 Capillary blood glucose measurement by g lucometer (mass/volume) - 07/10/18 05:42 Capillary blood glucose measurement by glucometer (mas s/volume) 217 mg/dL 70-110 Capillary blood glucose measurement by g lucometer (mass/volume) - 07/10/18 11:09 Capillary blood glucose measurement by glucometer (mas s/volume) 204 mg/dL 70-110 Capillary blood glucose measurement by g lucometer (mass/volume) - 07/10/18 15:52 Capillary blood glucose measurement by glucometer (mas s/volume) 179 mg/dL 70-110 Capillary blood glucose measurement by g lucometer (mass/volume) - 07/10/18 20:00 Capillary blood glucose measurement by glucometer (mas s/volume) 249 mg/dL 70-110 Capillary blood glucose measurement by g lucometer (mass/volume) - 07/11/18 05:42 Capillary blood glucose measurement by glucometer (mas s/volume) 204 mg/dL 70-110 Comprehensive metabolic panel - 07/11/18 06:00 Serum or plasma sodium measurement (moles/volume) 136 mmol/L 135-145 Serum or plasma potassium measurement (moles/volume) 4.3 mmol/L 3.6-5.0 Serum or plasma chloride measurement (moles/volume) 109 mmol/L 98-107 Carbon dioxide 20 mmol/L 21-32 Serum or plasma anion gap determination (moles/volume) 7 mmol/L 5-14 Serum or plasma urea nitrogen measurement (mass/volume ) 15 mg/dL 7-18 Serum or plasma creatinine measurement (mass/volume) 0.89 mg/dL 0.60-1.30 Serum or plasma urea nitrogen/creatinine mass ratio 17 NRG Serum or plasma creatinine measurement w ith calculation of estimated glomerular filtration rate > NRG Serum or plasma glucose measurement (mass/volume) 194 mg/dL 70-105 Serum or plasma calcium measurement (mass/volume) 8.3 mg/dL 8.5-10.1 Serum or plasma total bilirubin measurement (mass/volu me) 0.5 mg/dL 0.1-1.0 Serum or plasma alkaline phosphatase tino surement (enzymatic activity/volume) 79 U/L 40-136 Serum or plasma aspartate aminotransfera se measurement (enzymatic activity/volume) 20 U/L 5-34 Serum or plasma alanine aminotransferase measurement (enzymatic activity/volume) 25 U/L 0-55 Serum or plasma protein measurement (mass/volume) 4.6 g/dL 6.4-8.2 Serum or plasma albumin measurement (mass/volume) 2.8 g/dL 3.2-4.5 CALCIUM CORRECTED 9.3 mg/dL 8.5-10.1 Complete blood count (CBC) with automate d white blood cell (WBC) differential - 07/11/18 06:10 Blood leukocytes automated count (number/volume) 9.3 10*3/uL 4.3-11.0 Blood erythrocytes automated count (number/volume) 2.82 10*6/uL 4.35-5.85 Venous blood hemoglobin measurement (mass/volume) 8.8 g/dL 13.3-17.7 Blood hematocrit (volume fraction) 27 % 40-54 Automated erythrocyte mean corpuscular volume 95 [ foz_us] 80-99 Automated erythrocyte mean corpuscular h emoglobin (mass per erythrocyte) 31 pg 25-34 Automated erythrocyte mean corpuscular h emoglobin concentration measurement (mass/volume) 33 g/dL 32-36 Automated erythrocyte distribution width ratio 18. 8 % 10.0- 14.5 Automated blood platelet count (count/volume) 230 10*3/uL 130-400 Automated blood platelet mean volume measurement 9.8 [foz_us] 7.4-10.4 Automated blood neutrophils/100 leukocytes 83 % 42-75 Automated blood lymphocytes/100 leukocytes 11 % 12-44 Blood monocytes/100 leukocytes 4 % 0-12 Automated blood eosinophils/100 leukocytes 1 % 0-10 Automated blood basophils/100 leukocytes 0 % 0-10 Blood neutrophils automated count (number/volume) 7.7 10*3 1.8-7.8 Blood lymphocytes automated count (number/volume) 1.1 10*3 1.0-4.0 Blood monocytes automated count (number/volume) 0. 4 10*3 0.0-1.0 Automated eosinophil count 0.1 10*3/uL 0 .0-0.3 Automated blood basophil count (count/volume) 0.0 10*3/uL 0.0-0.1 Hemoglobin A1c - 07/11/18 06:10 Blood hemoglobin A1C measurement (mass/volume) 7.9 % 4.0-5.6 MEAN BLOOD GLUCOSE 180 % <=126 Capillary blood glucose measurement by g lucometer (mass/volume) - 07/11/18 11:21 Capillary blood glucose measurement by glucometer (mas s/volume) 204 mg/dL 70-110 Capillary blood glucose measurement by g lucometer (mass/volume) - 07/11/18 16:09 Capillary blood glucose measurement by glucometer (mas s/volume) 275 mg/dL 70-110 Capillary blood glucose measurement by g lucometer (mass/volume) - 07/11/18 20:56 Capillary blood glucose measurement by glucometer (mas s/volume) 237 mg/dL 70-110 Complete blood count (CBC) with automate d white blood cell (WBC) differential - 07/12/18 04:40 Blood leukocytes automated count (number/volume) 8.3 10*3/uL 4.3-11.0 Blood erythrocytes automated count (number/volume) 2.90 10*6/uL 4.35-5.85 Venous blood hemoglobin measurement (mass/volume) 8.8 g/dL 13.3-17.7 Blood hematocrit (volume fraction) 28 % 40-54 Automated erythrocyte mean corpuscular volume 95 [ foz_us] 80-99 Automated erythrocyte mean corpuscular h emoglobin (mass per erythrocyte) 30 pg 25-34 Automated erythrocyte mean corpuscular h emoglobin concentration measurement (mass/volume) 32 g/dL 32-36 Automated erythrocyte distribution width ratio 18. 2 % 10.0- 14.5 Automated blood platelet count (count/volume) 223 10*3/uL 130-400 Automated blood platelet mean volume measurement 9.9 [foz_us] 7.4-10.4 Automated blood neutrophils/100 leukocytes 79 % 42-75 Automated blood lymphocytes/100 leukocytes 14 % 12-44 Blood monocytes/100 leukocytes 7 % 0-12 Automated blood eosinophils/100 leukocytes 1 % 0-10 Automated blood basophils/100 leukocytes 0 % 0-10 Blood neutrophils automated count (number/volume) 6.5 10*3 1.8-7.8 Blood lymphocytes automated count (number/volume) 1.1 10*3 1.0-4.0 Blood monocytes automated count (number/volume) 0. 5 10*3 0.0-1.0 Automated eosinophil count 0.1 10*3/uL 0 .0-0.3 Automated blood basophil count (count/volume) 0.0 10*3/uL 0.0-0.1 Automated reticulocyte percentage - 06/24 05/11 04:40 Blood reticulocytes count (number/volume) 248 10*9 /L 24-90 Blood reticulocytes/100 erythrocytes 8.56 % 0.50-2.40 Comprehensive metabolic panel - 07/12/18 04:40 Serum or plasma sodium measurement (moles/volume) 134 mmol/L 135-145 Serum or plasma potassium measurement (moles/volume) 3.7 mmol/L 3.6-5.0 Serum or plasma chloride measurement (moles/volume) 107 mmol/L 98-107 Carbon dioxide 19 mmol/L 21-32 Serum or plasma anion gap determination (moles/volume) 8 mmol/L 5-14 Serum or plasma urea nitrogen measurement (mass/volume ) 10 mg/dL 7-18 Serum or plasma creatinine measurement (mass/volume) 0.86 mg/dL 0.60-1.30 Serum or plasma urea nitrogen/creatinine mass ratio 12 NRG Serum or plasma creatinine measurement w ith calculation of estimated glomerular filtration rate > NRG Serum or plasma glucose measurement (mass/volume) 234 mg/dL 70-105 Serum or plasma calcium measurement (mass/volume) 7.9 mg/dL 8.5-10.1 Serum or plasma total bilirubin measurement (mass/volu me) 0.5 mg/dL 0.1-1.0 Serum or plasma alkaline phosphatase tino surement (enzymatic activity/volume) 75 U/L 40-136 Serum or plasma aspartate aminotransfera se measurement (enzymatic activity/volume) 13 U/L 5-34 Serum or plasma alanine aminotransferase measurement (enzymatic activity/volume) 22 U/L 0-55 Serum or plasma protein measurement (mass/volume) 4.2 g/dL 6.4-8.2 Serum or plasma albumin measurement (mass/volume) 2.6 g/dL 3.2-4.5 CALCIUM CORRECTED 9.0 mg/dL 8.5-10.1 Capillary blood glucose measurement by g lucometer (mass/volume) - 07/12/18 05:09 Capillary blood glucose measurement by glucometer (mas s/volume) 219 mg/dL 70-110 Capillary blood glucose measurement by g lucometer (mass/volume) - 07/12/18 11:23 Capillary blood glucose measurement by glucometer (mas s/volume) 228 mg/dL 70-110 Capillary blood glucose measurement by g lucometer (mass/volume) - 07/12/18 16:28 Capillary blood glucose measurement by glucometer (mas s/volume) 321 mg/dL 70-110 Capillary blood glucose measurement by g lucometer (mass/volume) - 07/12/18 20:11 Capillary blood glucose measurement by glucometer (mas s/volume) 238 mg/dL 70-110 Complete blood count (CBC) with automate d white blood cell (WBC) differential - 07/13/18 05:15 Blood leukocytes automated count (number/volume) 8.9 10*3/uL 4.3-11.0 Blood erythrocytes automated count (number/volume) 3.06 10*6/uL 4.35-5.85 Venous blood hemoglobin measurement (mass/volume) 9.5 g/dL 13.3-17.7 Blood hematocrit (volume fraction) 29 % 40-54 Automated erythrocyte mean corpuscular volume 95 [ foz_us] 80-99 Automated erythrocyte mean corpuscular h emoglobin (mass per erythrocyte) 31 pg 25-34 Automated erythrocyte mean corpuscular h emoglobin concentration measurement (mass/volume) 33 g/dL 32-36 Automated erythrocyte distribution width ratio 18. 4 % 10.0- 14.5 Automated blood platelet count (count/volume) 306 10*3/uL 130-400 Automated blood platelet mean volume measurement 10.1 [foz_us] 7.4-10.4 Automated blood neutrophils/100 leukocytes 83 % 42-75 Automated blood lymphocytes/100 leukocytes 11 % 12-44 Blood monocytes/100 leukocytes 6 % 0-12 Automated blood eosinophils/100 leukocytes 1 % 0-10 Automated blood basophils/100 leukocytes 0 % 0-10 Blood neutrophils automated count (number/volume) 7.3 10*3 1.8-7.8 Blood lymphocytes automated count (number/volume) 1.0 10*3 1.0-4.0 Blood monocytes automated count (number/volume) 0. 5 10*3 0.0-1.0 Automated eosinophil count 0.1 10*3/uL 0 .0-0.3 Automated blood basophil count (count/volume) 0.0 10*3/uL 0.0-0.1 Comprehensive metabolic panel - 07/13/18 05:15 Serum or plasma sodium measurement (moles/volume) 134 mmol/L 135-145 Serum or plasma potassium measurement (moles/volume) 4.2 mmol/L 3.6-5.0 Serum or plasma chloride measurement (moles/volume) 105 mmol/L 98-107 Carbon dioxide 21 mmol/L 21-32 Serum or plasma anion gap determination (moles/volume) 8 mmol/L 5-14 Serum or plasma urea nitrogen measurement (mass/volume ) 10 mg/dL 7-18 Serum or plasma creatinine measurement (mass/volume) 0.94 mg/dL 0.60-1.30 Serum or plasma urea nitrogen/creatinine mass ratio 11 NRG Serum or plasma creatinine measurement w ith calculation of estimated glomerular filtration rate > NRG Serum or plasma glucose measurement (mass/volume) 230 mg/dL 70-105 Serum or plasma calcium measurement (mass/volume) 8.3 mg/dL 8.5-10.1 Serum or plasma total bilirubin measurement (mass/volu me) 0.5 mg/dL 0.1-1.0 Serum or plasma alkaline phosphatase tino surement (enzymatic activity/volume) 85 U/L 40-136 Serum or plasma aspartate aminotransfera se measurement (enzymatic activity/volume) 17 U/L 5-34 Serum or plasma alanine aminotransferase measurement (enzymatic activity/volume) 23 U/L 0-55 Serum or plasma protein measurement (mass/volume) 4.8 g/dL 6.4-8.2 Serum or plasma albumin measurement (mass/volume) 2.9 g/dL 3.2-4.5 CALCIUM CORRECTED 9.2 mg/dL 8.5-10.1 Capillary blood glucose measurement by g lucometer (mass/volume) - 07/13/18 05:30 Capillary blood glucose measurement by glucometer (mas s/volume) 233 mg/dL 70-110 Capillary blood glucose measurement by g lucometer (mass/volume) - 07/13/18 11:07 Capillary blood glucose measurement by glucometer (mas s/volume) 306 mg/dL 70-110 Capillary blood glucose measurement by g lucometer (mass/volume) - 07/13/18 16:01 Capillary blood glucose measurement by glucometer (mas s/volume) 148 mg/dL 70-110 Capillary blood glucose measurement by g lucometer (mass/volume) - 07/13/18 20:18 Capillary blood glucose measurement by glucometer (mas s/volume) 224 mg/dL 70-110 Complete blood count (CBC) with automate d white blood cell (WBC) differential - 07/14/18 05:59 Blood leukocytes automated count (number/volume) 7.7 10*3/uL 4.3-11.0 Blood erythrocytes automated count (number/volume) 2.76 10*6/uL 4.35-5.85 Venous blood hemoglobin measurement (mass/volume) 8.4 g/dL 13.3-17.7 Blood hematocrit (volume fraction) 26 % 40-54 Automated erythrocyte mean corpuscular volume 95 [ foz_us] 80-99 Automated erythrocyte mean corpuscular h emoglobin (mass per erythrocyte) 30 pg 25-34 Automated erythrocyte mean corpuscular h emoglobin concentration measurement (mass/volume) 32 g/dL 32-36 Automated erythrocyte distribution width ratio 17. 7 % 10.0- 14.5 Automated blood platelet count (count/volume) 281 10*3/uL 130-400 Automated blood platelet mean volume measurement 9.8 [foz_us] 7.4-10.4 Automated blood neutrophils/100 leukocytes 84 % 42-75 Automated blood lymphocytes/100 leukocytes 8 % 12-44 Blood monocytes/100 leukocytes 7 % 0-12 Automated blood eosinophils/100 leukocytes 1 % 0-10 Automated blood basophils/100 leukocytes 0 % 0-10 Blood neutrophils automated count (number/volume) 6.5 10*3 1.8-7.8 Blood lymphocytes automated count (number/volume) 0.6 10*3 1.0-4.0 Blood monocytes automated count (number/volume) 0. 5 10*3 0.0-1.0 Automated eosinophil count 0.1 10*3/uL 0 .0-0.3 Automated blood basophil count (count/volume) 0.0 10*3/uL 0.0-0.1 Comprehensive metabolic panel - 07/14/18 05:59 Serum or plasma sodium measurement (moles/volume) 134 mmol/L 135-145 Serum or plasma potassium measurement (moles/volume) 3.9 mmol/L 3.6-5.0 Serum or plasma chloride measurement (moles/volume) 106 mmol/L 98-107 Carbon dioxide 22 mmol/L 21-32 Serum or plasma anion gap determination (moles/volume) 6 mmol/L 5-14 Serum or plasma urea nitrogen measurement (mass/volume ) 10 mg/dL 7-18 Serum or plasma creatinine measurement (mass/volume) 1.00 mg/dL 0.60-1.30 Serum or plasma urea nitrogen/creatinine mass ratio 10 NRG Serum or plasma creatinine measurement w ith calculation of estimated glomerular filtration rate > NRG Serum or plasma glucose measurement (mass/volume) 267 mg/dL 70-105 Serum or plasma calcium measurement (mass/volume) 7.9 mg/dL 8.5-10.1 Serum or plasma total bilirubin measurement (mass/volu me) 0.3 mg/dL 0.1-1.0 Serum or plasma alkaline phosphatase tino surement (enzymatic activity/volume) 74 U/L 40-136 Serum or plasma aspartate aminotransfera se measurement (enzymatic activity/volume) 11 U/L 5-34 Serum or plasma alanine aminotransferase measurement (enzymatic activity/volume) 15 U/L 0-55 Serum or plasma protein measurement (mass/volume) 4.1 g/dL 6.4-8.2 Serum or plasma albumin measurement (mass/volume) 2.4 g/dL 3.2-4.5 CALCIUM CORRECTED 9.2 mg/dL 8.5-10.1 Capillary blood glucose measurement by g lucometer (mass/volume) - 07/14/18 06:46 Capillary blood glucose measurement by glucometer (mas s/volume) 276 mg/dL 70-110 Capillary blood glucose measurement by g lucometer (mass/volume) - 07/14/18 11:10 Capillary blood glucose measurement by glucometer (mas s/volume) 268 mg/dL 70-110 Capillary blood glucose measurement by g lucometer (mass/volume) - 07/14/18 16:25 Capillary blood glucose measurement by glucometer (mas s/volume) 244 mg/dL 70-110 Capillary blood glucose measurement by g lucometer (mass/volume) - 07/14/18 21:10 Capillary blood glucose measurement by glucometer (mas s/volume) 277 mg/dL 70-110 Capillary blood glucose measurement by g lucometer (mass/volume) - 07/15/18 05:31 Capillary blood glucose measurement by glucometer (mas s/volume) 292 mg/dL 70-110 Complete blood count (CBC) with automate d white blood cell (WBC) differential - 07/15/18 05:40 Blood leukocytes automated count (number/volume) 8.0 10*3/uL 4.3-11.0 Blood erythrocytes automated count (number/volume) 3.30 10*6/uL 4.35-5.85 Venous blood hemoglobin measurement (mass/volume) 10.1 g/dL 13.3-17.7 Blood hematocrit (volume fraction) 31 % 40-54 Automated erythrocyte mean corpuscular volume 95 [ foz_us] 80-99 Automated erythrocyte mean corpuscular h emoglobin (mass per erythrocyte) 31 pg 25-34 Automated erythrocyte mean corpuscular h emoglobin concentration measurement (mass/volume) 32 g/dL 32-36 Automated erythrocyte distribution width ratio 18. 0 % 10.0- 14.5 Automated blood platelet count (count/volume) 430 10*3/uL 130-400 Automated blood platelet mean volume measurement 9.3 [foz_us] 7.4-10.4 Automated blood neutrophils/100 leukocytes 83 % 42-75 Automated blood lymphocytes/100 leukocytes 12 % 12-44 Blood monocytes/100 leukocytes 5 % 0-12 Automated blood eosinophils/100 leukocytes 0 % 0-10 Automated blood basophils/100 leukocytes 0 % 0-10 Blood neutrophils automated count (number/volume) 6.6 10*3 1.8-7.8 Blood lymphocytes automated count (number/volume) 1.0 10*3 1.0-4.0 Blood monocytes automated count (number/volume) 0. 4 10*3 0.0-1.0 Automated eosinophil count 0.0 10*3/uL 0 .0-0.3 Automated blood basophil count (count/volume) 0.0 10*3/uL 0.0-0.1 Comprehensive metabolic panel - 07/15/18 05:40 Serum or plasma sodium measurement (moles/volume) 136 mmol/L 135-145 Serum or plasma potassium measurement (moles/volume) 4.2 mmol/L 3.6-5.0 Serum or plasma chloride measurement (moles/volume) 104 mmol/L 98-107 Carbon dioxide 23 mmol/L 21-32 Serum or plasma anion gap determination (moles/volume) 9 mmol/L 5-14 Serum or plasma urea nitrogen measurement (mass/volume ) 9 mg/dL 7-18 Serum or plasma creatinine measurement (mass/volume) 1.06 mg/dL 0.60-1.30 Serum or plasma urea nitrogen/creatinine mass ratio 8 NRG Serum or plasma creatinine measurement w ith calculation of estimated glomerular filtration rate > NRG Serum or plasma glucose measurement (mass/volume) 263 mg/dL 70-105 Serum or plasma calcium measurement (mass/volume) 8.5 mg/dL 8.5-10.1 Serum or plasma total bilirubin measurement (mass/volu me) 0.4 mg/dL 0.1-1.0 Serum or plasma alkaline phosphatase tino surement (enzymatic activity/volume) 102 U/L 40-136 Serum or plasma aspartate aminotransfera se measurement (enzymatic activity/volume) 12 U/L 5-34 Serum or plasma alanine aminotransferase measurement (enzymatic activity/volume) 20 U/L 0-55 Serum or plasma protein measurement (mass/volume) 5.1 g/dL 6.4-8.2 Serum or plasma albumin measurement (mass/volume) 3.0 g/dL 3.2-4.5 CALCIUM CORRECTED 9.3 mg/dL 8.5-10.1 Capillary blood glucose measurement by g lucometer (mass/volume) - 07/15/18 11:14 Capillary blood glucose measurement by glucometer (mas s/volume) 348 mg/dL 70-110 Capillary blood glucose measurement by g lucometer (mass/volume) - 07/15/18 15:38 Capillary blood glucose measurement by glucometer (mas s/volume) 245 mg/dL 70-110 Capillary blood glucose measurement by g lucometer (mass/volume) - 07/15/18 21:06 Capillary blood glucose measurement by glucometer (mas s/volume) 175 mg/dL 70-110 Capillary blood glucose measurement by g lucometer (mass/volume) - 07/16/18 05:22 Capillary blood glucose measurement by glucometer (mas s/volume) 180 mg/dL 70-110 Methicillin resistant Staphylococcus aur eus (MRSA) screening culture - 07/16/18 10:00 Methicillin resistant Staphylococcus aureus (MRSA) scr eening culture NEG NRG Capillary blood glucose measurement by g lucometer (mass/volume) - 07/16/18 11:27 Capillary blood glucose measurement by glucometer (mas s/volume) 240 mg/dL 70-110 Activated partial thromboplastin time (a PTT) in platelet poor plasma bycoagulation assay - 07/16/18 15:25 Activated partial thromboplastin time (a PTT) in platelet poor plasma bycoagulation assay 184 s 24-35 Capillary blood glucose measurement by g lucometer (mass/volume) - 07/16/18 16:49 Capillary blood glucose measurement by glucometer (mas s/volume) 238 mg/dL 70-110 Activated partial thromboplastin time (a PTT) in platelet poor plasma bycoagulation assay - 07/16/18 17:25 Activated partial thromboplastin time (a PTT) in platelet poor plasma bycoagulation assay 48 s 24-35 Capillary blood glucose measurement by g lucometer (mass/volume) - 07/16/18 22:48 Capillary blood glucose measurement by glucometer (mas s/volume) 251 mg/dL 70-110 Automated blood complete blood count (he mogram) panel - 07/17/18 05:10 Blood leukocytes automated count (number/volume) 8.7 10*3/uL 4.3-11.0 Blood erythrocytes automated count (number/volume) 2.98 10*6/uL 4.35-5.85 Venous blood hemoglobin measurement (mass/volume) 9.1 g/dL 13.3-17.7 Blood hematocrit (volume fraction) 29 % 40-54 Automated erythrocyte mean corpuscular volume 96 [ foz_us] 80-99 Automated erythrocyte mean corpuscular h emoglobin (mass per erythrocyte) 31 pg 25-34 Automated erythrocyte mean corpuscular h emoglobin concentration measurement (mass/volume) 32 g/dL 32-36 Automated erythrocyte distribution width ratio 17. 9 % 10.0- 14.5 Automated blood platelet count (count/volume) 430 10*3/uL 130-400 Automated blood platelet mean volume measurement 9.1 [foz_us] 7.4-10.4 Whole blood basic metabolic panel - 06/25 12/09 05:10 Serum or plasma sodium measurement (moles/volume) 136 mmol/L 135-145 Serum or plasma potassium measurement (moles/volume) 4.1 mmol/L 3.6-5.0 Serum or plasma chloride measurement (moles/volume) 100 mmol/L 98-107 Carbon dioxide 26 mmol/L 21-32 Serum or plasma anion gap determination (moles/volume) 10 mmol/L 5-14 Serum or plasma urea nitrogen measurement (mass/volume ) 9 mg/dL 7-18 Serum or plasma creatinine measurement (mass/volume) 0.91 mg/dL 0.60-1.30 Serum or plasma urea nitrogen/creatinine mass ratio 10 NRG Serum or plasma creatinine measurement w ith calculation of estimated glomerular filtration rate > NRG Serum or plasma glucose measurement (mass/volume) 210 mg/dL 70-105 Serum or plasma calcium measurement (mass/volume) 8.3 mg/dL 8.5-10.1 Serum or plasma lithium measurement (mol es/volume) - 07/17/18 05:10 BNP level 2642.8 pg/mL <100.0 Capillary blood glucose measurement by g lucometer (mass/volume) - 07/17/18 05:26 Capillary blood glucose measurement by glucometer (mas s/volume) 219 mg/dL 70-110 Capillary blood glucose measurement by g lucometer (mass/volume) - 07/17/18 11:10 Capillary blood glucose measurement by glucometer (mas s/volume) 294 mg/dL 70-110 Arterial blood gas measurement - 8 12:55 Blood pCO2 40 mm[Hg] 35-45 Blood pO2 58 mm[Hg] 79-93 Arterial blood bicarbonate measurement (moles/volume) 32 mmol/L 23-27 Arterial blood base excess by calculation 8.8 mmol /L -2.5-2.5 Arterial blood oxygen saturation measurement 93 % 94-100 * Inhaled oxygen flow rate 35 NRG Arterial blood pH measurement with patient temperature correction 7.51 7.37-7.43 Arterial blood carbon dioxide, total measurement (mole s/volume) 33.6 mmol/L 21.0-31.0 Body site LT RAD NRG Assessment of wrist artery patency prior to arterial p uncture YES-POS NRG Setting of ventilation mode NO NR G Measurement of body temperature 98.2 NRG Capillary blood glucose measurement by g lucometer (mass/volume) - 07/17/18 16:46 Capillary blood glucose measurement by glucometer (mas s/volume) 270 mg/dL 70-110 Capillary blood glucose measurement by g lucometer (mass/volume) - 07/17/18 21:00 Capillary blood glucose measurement by glucometer (mas s/volume) 200 mg/dL 70-110 Complete blood count (CBC) with automate d white blood cell (WBC) differential - 07/18/18 05:30 Blood leukocytes automated count (number/volume) 7.5 10*3/uL 4.3-11.0 Blood erythrocytes automated count (number/volume) 2.90 10*6/uL 4.35-5.85 Venous blood hemoglobin measurement (mass/volume) 9.0 g/dL 13.3-17.7 Blood hematocrit (volume fraction) 28 % 40-54 Automated erythrocyte mean corpuscular volume 97 [ foz_us] 80-99 Automated erythrocyte mean corpuscular h emoglobin (mass per erythrocyte) 31 pg 25-34 Automated erythrocyte mean corpuscular h emoglobin concentration measurement (mass/volume) 32 g/dL 32-36 Automated erythrocyte distribution width ratio 18. 2 % 10.0- 14.5 Automated blood platelet count (count/volume) 388 10*3/uL 130-400 Automated blood platelet mean volume measurement 9.0 [foz_us] 7.4-10.4 Automated blood neutrophils/100 leukocytes 79 % 42-75 Automated blood lymphocytes/100 leukocytes 12 % 12-44 Blood monocytes/100 leukocytes 8 % 0-12 Automated blood eosinophils/100 leukocytes 0 % 0-10 Automated blood basophils/100 leukocytes 0 % 0-10 Blood neutrophils automated count (number/volume) 5.9 10*3 1.8-7.8 Blood lymphocytes automated count (number/volume) 0.9 10*3 1.0-4.0 Blood monocytes automated count (number/volume) 0. 6 10*3 0.0-1.0 Automated eosinophil count 0.0 10*3/uL 0 .0-0.3 Automated blood basophil count (count/volume) 0.0 10*3/uL 0.0-0.1 Whole blood basic metabolic panel - 06/25 01/08 05:30 Serum or plasma sodium measurement (moles/volume) 137 mmol/L 135-145 Serum or plasma potassium measurement (moles/volume) 3.4 mmol/L 3.6-5.0 Serum or plasma chloride measurement (moles/volume) 97 mmol/L 98-107 Carbon dioxide 31 mmol/L 21-32 Serum or plasma anion gap determination (moles/volume) 9 mmol/L 5-14 Serum or plasma urea nitrogen measurement (mass/volume ) 9 mg/dL 7-18 Serum or plasma creatinine measurement (mass/volume) 0.89 mg/dL 0.60-1.30 Serum or plasma urea nitrogen/creatinine mass ratio 10 NRG Serum or plasma creatinine measurement w ith calculation of estimated glomerular filtration rate > NRG Serum or plasma glucose measurement (mass/volume) 182 mg/dL 70-105 Serum or plasma calcium measurement (mass/volume) 8.0 mg/dL 8.5-10.1 Serum or plasma lithium measurement (mol es/volume) - 07/18/18 05:30 BNP level 1877.0 pg/mL <100.0 Capillary blood glucose measurement by g lucometer (mass/volume) - 07/18/18 05:33 Capillary blood glucose measurement by glucometer (mas s/volume) 200 mg/dL 70-110 Capillary blood glucose measurement by g lucometer (mass/volume) - 07/18/18 11:10 Capillary blood glucose measurement by glucometer (mas s/volume) 204 mg/dL 70-110 Capillary blood glucose measurement by g lucometer (mass/volume) - 07/18/18 15:52 Capillary blood glucose measurement by glucometer (mas s/volume) 308 mg/dL 70-110 Capillary blood glucose measurement by g lucometer (mass/volume) - 07/18/18 20:55 Capillary blood glucose measurement by glucometer (mas s/volume) 297 mg/dL 70-110 Capillary blood glucose measurement by g lucometer (mass/volume) - 07/19/18 05:15 Capillary blood glucose measurement by glucometer (mas s/volume) 257 mg/dL 70-110 Complete blood count (CBC) with automate d white blood cell (WBC) differential - 07/19/18 05:40 Blood leukocytes automated count (number/volume) 7.4 10*3/uL 4.3-11.0 Blood erythrocytes automated count (number/volume) 2.98 10*6/uL 4.35-5.85 Venous blood hemoglobin measurement (mass/volume) 9.3 g/dL 13.3-17.7 Blood hematocrit (volume fraction) 29 % 40-54 Automated erythrocyte mean corpuscular volume 98 [ foz_us] 80-99 Automated erythrocyte mean corpuscular h emoglobin (mass per erythrocyte) 31 pg 25-34 Automated erythrocyte mean corpuscular h emoglobin concentration measurement (mass/volume) 32 g/dL 32-36 Automated erythrocyte distribution width ratio 18. 0 % 10.0- 14.5 Automated blood platelet count (count/volume) 405 10*3/uL 130-400 Automated blood platelet mean volume measurement 8.9 [foz_us] 7.4-10.4 Automated blood neutrophils/100 leukocytes 81 % 42-75 Automated blood lymphocytes/100 leukocytes 13 % 12-44 Blood monocytes/100 leukocytes 5 % 0-12 Automated blood eosinophils/100 leukocytes 1 % 0-10 Automated blood basophils/100 leukocytes 0 % 0-10 Blood neutrophils automated count (number/volume) 6.0 10*3 1.8-7.8 Blood lymphocytes automated count (number/volume) 0.9 10*3 1.0-4.0 Blood monocytes automated count (number/volume) 0. 4 10*3 0.0-1.0 Automated eosinophil count 0.1 10*3/uL 0 .0-0.3 Automated blood basophil count (count/volume) 0.0 10*3/uL 0.0-0.1 Comprehensive metabolic panel - 07/19/18 05:40 Serum or plasma sodium measurement (moles/volume) 136 mmol/L 135-145 Serum or plasma potassium measurement (moles/volume) 3.9 mmol/L 3.6-5.0 Serum or plasma chloride measurement (moles/volume) 96 mmol/L 98-107 Carbon dioxide 30 mmol/L 21-32 Serum or plasma anion gap determination (moles/volume) 10 mmol/L 5-14 Serum or plasma urea nitrogen measurement (mass/volume ) 13 mg/dL 7-18 Serum or plasma creatinine measurement (mass/volume) 1.13 mg/dL 0.60-1.30 Serum or plasma urea nitrogen/creatinine mass ratio 12 NRG Serum or plasma creatinine measurement w ith calculation of estimated glomerular filtration rate > NRG Serum or plasma glucose measurement (mass/volume) 253 mg/dL 70-105 Serum or plasma calcium measurement (mass/volume) 8.1 mg/dL 8.5-10.1 Serum or plasma total bilirubin measurement (mass/volu me) 0.5 mg/dL 0.1-1.0 Serum or plasma alkaline phosphatase tino surement (enzymatic activity/volume) 96 U/L 40-136 Serum or plasma aspartate aminotransfera se measurement (enzymatic activity/volume) 12 U/L 5-34 Serum or plasma alanine aminotransferase measurement (enzymatic activity/volume) 13 U/L 0-55 Serum or plasma protein measurement (mass/volume) 4.5 g/dL 6.4-8.2 Serum or plasma albumin measurement (mass/volume) 2.6 g/dL 3.2-4.5 CALCIUM CORRECTED 9.2 mg/dL 8.5-10.1 Serum or plasma lithium measurement (mol es/volume) - 07/19/18 05:40 BNP level 1357.7 pg/mL <100.0 Capillary blood glucose measurement by g lucometer (mass/volume) - 07/19/18 11:14 Capillary blood glucose measurement by glucometer (mas s/volume) 329 mg/dL 70-110 Capillary blood glucose measurement by g lucometer (mass/volume) - 07/19/18 15:50 Capillary blood glucose measurement by glucometer (mas s/volume) 275 mg/dL 70-110 Capillary blood glucose measurement by g lucometer (mass/volume) - 07/19/18 22:08 Capillary blood glucose measurement by glucometer (mas s/volume) 284 mg/dL 70-110 Capillary blood glucose measurement by g lucometer (mass/volume) - 07/20/18 04:55 Capillary blood glucose measurement by glucometer (mas s/volume) 281 mg/dL 70-110 Complete blood count (CBC) with automate d white blood cell (WBC) differential - 07/20/18 05:59 Blood leukocytes automated count (number/volume) 8.0 10*3/uL 4.3-11.0 Blood erythrocytes automated count (number/volume) 2.58 10*6/uL 4.35-5.85 Venous blood hemoglobin measurement (mass/volume) 8.0 g/dL 13.3-17.7 Blood hematocrit (volume fraction) 25 % 40-54 Automated erythrocyte mean corpuscular volume 98 [ foz_us] 80-99 Automated erythrocyte mean corpuscular h emoglobin (mass per erythrocyte) 31 pg 25-34 Automated erythrocyte mean corpuscular h emoglobin concentration measurement (mass/volume) 32 g/dL 32-36 Automated erythrocyte distribution width ratio 18. 0 % 10.0- 14.5 Automated blood platelet count (count/volume) 366 10*3/uL 130-400 Automated blood platelet mean volume measurement 8.8 [foz_us] 7.4-10.4 Automated blood neutrophils/100 leukocytes 81 % 42-75 Automated blood lymphocytes/100 leukocytes 12 % 12-44 Blood monocytes/100 leukocytes 5 % 0-12 Automated blood eosinophils/100 leukocytes 1 % 0-10 Automated blood basophils/100 leukocytes 0 % 0-10 Blood neutrophils automated count (number/volume) 6.5 10*3 1.8-7.8 Blood lymphocytes automated count (number/volume) 1.0 10*3 1.0-4.0 Blood monocytes automated count (number/volume) 0. 4 10*3 0.0-1.0 Automated eosinophil count 0.1 10*3/uL 0 .0-0.3 Automated blood basophil count (count/volume) 0.0 10*3/uL 0.0-0.1 Comprehensive metabolic panel - 07/20/18 05:59 Serum or plasma sodium measurement (moles/volume) 137 mmol/L 135-145 Serum or plasma potassium measurement (moles/volume) 4.1 mmol/L 3.6-5.0 Serum or plasma chloride measurement (moles/volume) 101 mmol/L 98-107 Carbon dioxide 27 mmol/L 21-32 Serum or plasma anion gap determination (moles/volume) 9 mmol/L 5-14 Serum or plasma urea nitrogen measurement (mass/volume ) 15 mg/dL 7-18 Serum or plasma creatinine measurement (mass/volume) 1.01 mg/dL 0.60-1.30 Serum or plasma urea nitrogen/creatinine mass ratio 15 NRG Serum or plasma creatinine measurement w ith calculation of estimated glomerular filtration rate > NRG Serum or plasma glucose measurement (mass/volume) 254 mg/dL 70-105 Serum or plasma calcium measurement (mass/volume) 8.3 mg/dL 8.5-10.1 Serum or plasma total bilirubin measurement (mass/volu me) 0.5 mg/dL 0.1-1.0 Serum or plasma alkaline phosphatase tino surement (enzymatic activity/volume) 86 U/L 40-136 Serum or plasma aspartate aminotransfera se measurement (enzymatic activity/volume) 15 U/L 5-34 Serum or plasma alanine aminotransferase measurement (enzymatic activity/volume) 13 U/L 0-55 Serum or plasma protein measurement (mass/volume) 4.6 g/dL 6.4-8.2 Serum or plasma albumin measurement (mass/volume) 2.7 g/dL 3.2-4.5 CALCIUM CORRECTED 9.3 mg/dL 8.5-10.1 Capillary blood glucose measurement by g lucometer (mass/volume) - 07/20/18 10:56 Capillary blood glucose measurement by glucometer (mas s/volume) 343 mg/dL 70-110 Capillary blood glucose measurement by g lucometer (mass/volume) - 07/20/18 15:56 Capillary blood glucose measurement by glucometer (mas s/volume) 322 mg/dL 70-110 Capillary blood glucose measurement by g lucometer (mass/volume) - 07/20/18 20:42 Capillary blood glucose measurement by glucometer (mas s/volume) 210 mg/dL 70-110 Capillary blood glucose measurement by g lucometer (mass/volume) - 07/21/18 05:49 Capillary blood glucose measurement by glucometer (mas s/volume) 270 mg/dL 70-110 Capillary blood glucose measurement by g lucometer (mass/volume) - 07/21/18 11:01 Capillary blood glucose measurement by glucometer (mas s/volume) 378 mg/dL 70-110 Capillary blood glucose measurement by g lucometer (mass/volume) - 07/21/18 15:51 Capillary blood glucose measurement by glucometer (mas s/volume) 316 mg/dL 70-110 Capillary blood glucose measurement by g lucometer (mass/volume) - 07/21/18 20:44 Capillary blood glucose measurement by glucometer (mas s/volume) 273 mg/dL 70-110 Capillary blood glucose measurement by g lucometer (mass/volume) - 07/22/18 05:12 Capillary blood glucose measurement by glucometer (mas s/volume) 250 mg/dL 70-110 Complete blood count (CBC) with automate d white blood cell (WBC) differential - 07/22/18 05:26 Blood leukocytes automated count (number/volume) 8.9 10*3/uL 4.3-11.0 Blood erythrocytes automated count (number/volume) 2.22 10*6/uL 4.35-5.85 Venous blood hemoglobin measurement (mass/volume) 6.7 g/dL 13.3-17.7 Blood hematocrit (volume fraction) 22 % 40-54 Automated erythrocyte mean corpuscular volume 101 [foz_us] 80-99 Automated erythrocyte mean corpuscular h emoglobin (mass per erythrocyte) 30 pg 25-34 Automated erythrocyte mean corpuscular h emoglobin concentration measurement (mass/volume) 30 g/dL 32-36 Automated erythrocyte distribution width ratio 18. 1 % 10.0- 14.5 Automated blood platelet count (count/volume) 327 10*3/uL 130-400 Automated blood platelet mean volume measurement 9.2 [foz_us] 7.4-10.4 Automated blood neutrophils/100 leukocytes 82 % 42-75 Automated blood lymphocytes/100 leukocytes 12 % 12-44 Blood monocytes/100 leukocytes 5 % 0-12 Automated blood eosinophils/100 leukocytes 1 % 0-10 Automated blood basophils/100 leukocytes 0 % 0-10 Blood neutrophils automated count (number/volume) 7.3 10*3 1.8-7.8 Blood lymphocytes automated count (number/volume) 1.1 10*3 1.0-4.0 Blood monocytes automated count (number/volume) 0. 4 10*3 0.0-1.0 Automated eosinophil count 0.1 10*3/uL 0 .0-0.3 Automated blood basophil count (count/volume) 0.0 10*3/uL 0.0-0.1 RED CELLS LEUKO REDUCED AS1 - 07/22/18 0 5:26 RED CELLS LEUKO REDUCED AS1 T RANSFUSED 07/23/18 1044 NRG Blood type T Indirect antibody screen pa rachel - 07/22/18 05:26 ABO+Rh group OP NRG Transfusion band number [id number] NR Blood group antibody screen NEGATIVE NR G Serum or plasma troponin i.cardiac measu rement (mass/volume) - 07/22/18 05:26 Serum or plasma troponin i.cardiac measurement (mass/v olume) < ng/mL <0.30 Capillary blood glucose measurement by g lucometer (mass/volume) - 07/22/18 10:44 Capillary blood glucose measurement by glucometer (mas s/volume) 252 mg/dL 70-110 Venous blood hemoglobin measurement (mas s/volume) - 07/22/18 15:58 Venous blood hemoglobin measurement (mass/volume) 9.3 g/dL 13.3-17.7 Capillary blood glucose measurement by g lucometer (mass/volume) - 07/22/18 16:11 Capillary blood glucose measurement by glucometer (mas s/volume) 217 mg/dL 70-110 Capillary blood glucose measurement by g lucometer (mass/volume) - 07/22/18 21:04 Capillary blood glucose measurement by glucometer (mas s/volume) 244 mg/dL 70-110 Capillary blood glucose measurement by g lucometer (mass/volume) - 07/23/18 05:17 Capillary blood glucose measurement by glucometer (mas s/volume) 274 mg/dL 70-110 Complete blood count (CBC) with automate d white blood cell (WBC) differential - 07/23/18 05:33 Blood leukocytes automated count (number/volume) 9.0 10*3/uL 4.3-11.0 Blood erythrocytes automated count (number/volume) 2.55 10*6/uL 4.35-5.85 Venous blood hemoglobin measurement (mass/volume) 7.8 g/dL 13.3-17.7 Blood hematocrit (volume fraction) 24 % 40-54 Automated erythrocyte mean corpuscular volume 96 [ foz_us] 80-99 Automated erythrocyte mean corpuscular h emoglobin (mass per erythrocyte) 31 pg 25-34 Automated erythrocyte mean corpuscular h emoglobin concentration measurement (mass/volume) 32 g/dL 32-36 Automated erythrocyte distribution width ratio 18. 5 % 10.0- 14.5 Automated blood platelet count (count/volume) 285 10*3/uL 130-400 Automated blood platelet mean volume measurement 9.2 [foz_us] 7.4-10.4 Automated blood neutrophils/100 leukocytes 84 % 42-75 Automated blood lymphocytes/100 leukocytes 10 % 12-44 Blood monocytes/100 leukocytes 6 % 0-12 Automated blood eosinophils/100 leukocytes 1 % 0-10 Automated blood basophils/100 leukocytes 0 % 0-10 Blood neutrophils automated count (number/volume) 7.5 10*3 1.8-7.8 Blood lymphocytes automated count (number/volume) 0.9 10*3 1.0-4.0 Blood monocytes automated count (number/volume) 0. 6 10*3 0.0-1.0 Automated eosinophil count 0.1 10*3/uL 0 .0-0.3 Automated blood basophil count (count/volume) 0.0 10*3/uL 0.0-0.1 Capillary blood glucose measurement by g lucometer (mass/volume) - 07/23/18 16:15 Capillary blood glucose measurement by glucometer (mas s/volume) 220 mg/dL 70-110 Venous blood hemoglobin measurement (mas s/volume) - 07/23/18 17:34 Venous blood hemoglobin measurement (mass/volume) 8.9 g/dL 13.3-17.7 Blood hematocrit (volume fraction) - 17:34 Blood hematocrit (volume fraction) 27 % 40-54 Capillary blood glucose measurement by g lucometer (mass/volume) - 07/23/18 20:38 Capillary blood glucose measurement by glucometer (mas s/volume) 210 mg/dL 70-110 Capillary blood glucose measurement by g lucometer (mass/volume) - 07/23/18 23:45 Capillary blood glucose measurement by glucometer (mas s/volume) 208 mg/dL 70-110 Capillary blood glucose measurement by g lucometer (mass/volume) - 07/24/18 04:59 Capillary blood glucose measurement by glucometer (mas s/volume) 228 mg/dL 70-110 Whole blood hemoglobin and hematocrit pa rachel - 07/24/18 08:10 Venous blood hemoglobin measurement (mass/volume) 8.9 g/dL 13.3-17.7 Blood hematocrit (volume fraction) 27 % 40-54 Capillary blood glucose measurement by g lucometer (mass/volume) - 07/24/18 11:22 Capillary blood glucose measurement by glucometer (mas s/volume) 377 mg/dL 70-110 Capillary blood glucose measurement by g lucometer (mass/volume) - 07/24/18 15:53 Capillary blood glucose measurement by glucometer (mas s/volume) 201 mg/dL 70-110 Capillary blood glucose measurement by g lucometer (mass/volume) - 07/24/18 20:54 Capillary blood glucose measurement by glucometer (mas s/volume) 316 mg/dL 70-110 Automated blood complete blood count (he mogram) panel - 07/25/18 05:05 Blood leukocytes automated count (number/volume) 8.5 10*3/uL 4.3-11.0 Blood erythrocytes automated count (number/volume) 2.60 10*6/uL 4.35-5.85 Venous blood hemoglobin measurement (mass/volume) 8.0 g/dL 13.3-17.7 Blood hematocrit (volume fraction) 25 % 40-54 Automated erythrocyte mean corpuscular volume 94 [ foz_us] 80-99 Automated erythrocyte mean corpuscular h emoglobin (mass per erythrocyte) 31 pg 25-34 Automated erythrocyte mean corpuscular h emoglobin concentration measurement (mass/volume) 33 g/dL 32-36 Automated erythrocyte distribution width ratio 16. 3 % 10.0- 14.5 Automated blood platelet count (count/volume) 258 10*3/uL 130-400 Automated blood platelet mean volume measurement 9.3 [foz_us] 7.4-10.4 Comprehensive metabolic panel - 07/25/18 05:05 Serum or plasma sodium measurement (moles/volume) 134 mmol/L 135-145 Serum or plasma potassium measurement (moles/volume) 3.1 mmol/L 3.6-5.0 Serum or plasma chloride measurement (moles/volume) 99 mmol/L 98-107 Carbon dioxide 23 mmol/L 21-32 Serum or plasma anion gap determination (moles/volume) 12 mmol/L 5-14 Serum or plasma urea nitrogen measurement (mass/volume ) 22 mg/dL 7-18 Serum or plasma creatinine measurement (mass/volume) 0.94 mg/dL 0.60-1.30 Serum or plasma urea nitrogen/creatinine mass ratio 23 NRG Serum or plasma creatinine measurement w ith calculation of estimated glomerular filtration rate > NRG Serum or plasma glucose measurement (mass/volume) 207 mg/dL 70-105 Serum or plasma calcium measurement (mass/volume) 8.3 mg/dL 8.5-10.1 Serum or plasma total bilirubin measurement (mass/volu me) 0.7 mg/dL 0.1-1.0 Serum or plasma alkaline phosphatase tino surement (enzymatic activity/volume) 88 U/L 40-136 Serum or plasma aspartate aminotransfera se measurement (enzymatic activity/volume) 18 U/L 5-34 Serum or plasma alanine aminotransferase measurement (enzymatic activity/volume) 20 U/L 0-55 Serum or plasma protein measurement (mass/volume) 5.2 g/dL 6.4-8.2 Serum or plasma albumin measurement (mass/volume) 2.8 g/dL 3.2-4.5 CALCIUM CORRECTED 9.3 mg/dL 8.5-10.1 Serum or plasma lithium measurement (mol es/volume) - 07/25/18 05:05 BNP level 311.0 pg/mL <100.0 Capillary blood glucose measurement by g lucometer (mass/volume) - 07/25/18 05:36 Capillary blood glucose measurement by glucometer (mas s/volume) 267 mg/dL 70-110 Capillary blood glucose measurement by g lucometer (mass/volume) - 07/25/18 10:55 Capillary blood glucose measurement by glucometer (mas s/volume) 254 mg/dL 70-110 Capillary blood glucose measurement by g lucometer (mass/volume) - 07/25/18 16:11 Capillary blood glucose measurement by glucometer (mas s/volume) 211 mg/dL 70-110 Capillary blood glucose measurement by g lucometer (mass/volume) - 07/25/18 20:54 Capillary blood glucose measurement by glucometer (mas s/volume) 231 mg/dL 70-110 Automated blood complete blood count (he mogram) panel - 07/26/18 04:30 Blood leukocytes automated count (number/volume) 6.6 10*3/uL 4.3-11.0 Blood erythrocytes automated count (number/volume) 2.68 10*6/uL 4.35-5.85 Venous blood hemoglobin measurement (mass/volume) 8.2 g/dL 13.3-17.7 Blood hematocrit (volume fraction) 25 % 40-54 Automated erythrocyte mean corpuscular volume 94 [ foz_us] 80-99 Automated erythrocyte mean corpuscular h emoglobin (mass per erythrocyte) 31 pg 25-34 Automated erythrocyte mean corpuscular h emoglobin concentration measurement (mass/volume) 32 g/dL 32-36 Automated erythrocyte distribution width ratio 15. 7 % 10.0- 14.5 Automated blood platelet count (count/volume) 265 10*3/uL 130-400 Automated blood platelet mean volume measurement 9.3 [foz_us] 7.4-10.4 Comprehensive metabolic panel - 07/26/18 04:30 Serum or plasma sodium measurement (moles/volume) 135 mmol/L 135-145 Serum or plasma potassium measurement (moles/volume) 3.5 mmol/L 3.6-5.0 Serum or plasma chloride measurement (moles/volume) 101 mmol/L 98-107 Carbon dioxide 24 mmol/L 21-32 Serum or plasma anion gap determination (moles/volume) 10 mmol/L 5-14 Serum or plasma urea nitrogen measurement (mass/volume ) 15 mg/dL 7-18 Serum or plasma creatinine measurement (mass/volume) 0.86 mg/dL 0.60-1.30 Serum or plasma urea nitrogen/creatinine mass ratio 17 NRG Serum or plasma creatinine measurement w ith calculation of estimated glomerular filtration rate > NRG Serum or plasma glucose measurement (mass/volume) 157 mg/dL 70-105 Serum or plasma calcium measurement (mass/volume) 8.3 mg/dL 8.5-10.1 Serum or plasma total bilirubin measurement (mass/volu me) 0.6 mg/dL 0.1-1.0 Serum or plasma alkaline phosphatase tino surement (enzymatic activity/volume) 90 U/L 40-136 Serum or plasma aspartate aminotransfera se measurement (enzymatic activity/volume) 21 U/L 5-34 Serum or plasma alanine aminotransferase measurement (enzymatic activity/volume) 22 U/L 0-55 Serum or plasma protein measurement (mass/volume) 4.7 g/dL 6.4-8.2 Serum or plasma albumin measurement (mass/volume) 2.8 g/dL 3.2-4.5 CALCIUM CORRECTED 9.3 mg/dL 8.5-10.1 Magnesium - 07/26/18 04:30 Magnesium 1.7 mg/dL 1.8-2.4 Capillary blood glucose measurement by g lucometer (mass/volume) - 07/26/18 05:20 Capillary blood glucose measurement by glucometer (mas s/volume) 170 mg/dL 70-110 Capillary blood glucose measurement by g lucometer (mass/volume) - 07/26/18 11:25 Capillary blood glucose measurement by glucometer (mas s/volume) 255 mg/dL 70-110 [facility] - 07/26/18 12:25 Venous blood hemoglobin measurement (mass/volume) 8.3 g/dL 13.3-17.7 Blood hematocrit (volume fraction) 26 % 40-54 Capillary blood glucose measurement by g lucometer (mass/volume) - 07/26/18 16:09 Capillary blood glucose measurement by glucometer (mas s/volume) 197 mg/dL 70-110 [facility] blood [facility] - 07/26/18 18:15 Venous blood hemoglobin measurement (mass/volume) 7.9 g/dL 13.3-17.7 Blood hematocrit (volume fraction) 24 % 40-54 Capillary blood glucose measurement by g lucometer (mass/volume) - 07/26/18 21:29 Capillary blood glucose measurement by glucometer (mas s/volume) 284 mg/dL 70-110 Capillary blood glucose measurement by g lucometer (mass/volume) - 07/27/18 05:32 Capillary blood glucose measurement by glucometer (mas s/volume) 218 mg/dL 70-110 [facility] blood [facility] - 07/27/18 06:05 Venous blood hemoglobin measurement (mass/volume) 7.4 g/dL 13.3-17.7 Blood hematocrit (volume fraction) 23 % 40-54 Whole blood basic metabolic panel - 12/09 09:15 Serum or plasma sodium measurement (moles/volume) 133 mmol/L 135-145 Serum or plasma potassium measurement (moles/volume) 3.8 mmol/L 3.6-5.0 Serum or plasma chloride measurement (moles/volume) 98 mmol/L 98-107 Carbon dioxide 26 mmol/L 21-32 Serum or plasma anion gap determination (moles/volume) 9 mmol/L 5-14 Serum or plasma urea nitrogen measurement (mass/volume ) 19 mg/dL 7-18 Serum or plasma creatinine measurement (mass/volume) 1.00 mg/dL 0.60-1.30 Serum or plasma urea nitrogen/creatinine mass ratio 19 NRG Serum or plasma creatinine measurement w ith calculation of estimated glomerular filtration rate > NRG Serum or plasma glucose measurement (mass/volume) 218 mg/dL 70-105 Serum or plasma calcium measurement (mass/volume) 8.5 mg/dL 8.5-10.1 Magnesium - 07/27/18 09:15 Magnesium 1.9 mg/dL 1.8-2.4 Capillary blood glucose measurement by g lucometer (mass/volume) - 07/27/18 11:17 Capillary blood glucose measurement by glucometer (mas s/volume) 353 mg/dL 70-110 Capillary blood glucose measurement by g lucometer (mass/volume) - 07/27/18 16:09 Capillary blood glucose measurement by glucometer (mas s/volume) 227 mg/dL 70-110 Whole blood hemoglobin and hematocrit [facility] 07/27/18 16:31 Venous blood hemoglobin measurement (mass/volume) 7.7 g/dL 13.3-17.7 Blood hematocrit (volume fraction) 24 % 40-54 Capillary blood glucose measurement by g lucometer (mass/volume) - 07/27/18 21:07 Capillary blood glucose measurement by glucometer (mas s/volume) 226 mg/dL 70-110 Whole blood hemoglobin and hematocrit [facility] 07/28/18 06:01 Venous blood hemoglobin measurement (mass/volume) 7.4 g/dL 13.3-17.7 Blood hematocrit (volume fraction) 23 % 40-54 Whole blood basic metabolic panel - 01/08 06:01 Serum or plasma sodium measurement (moles/volume) 132 mmol/L 135-145 Serum or plasma potassium measurement (moles/volume) 4.5 mmol/L 3.6-5.0 Serum or plasma chloride measurement (moles/volume) 97 mmol/L 98-107 Carbon dioxide 25 mmol/L 21-32 Serum or plasma anion gap determination (moles/volume) 10 mmol/L 5-14 Serum or plasma urea nitrogen measurement (mass/volume ) 20 mg/dL 7-18 Serum or plasma creatinine measurement (mass/volume) 0.97 mg/dL 0.60-1.30 Serum or plasma urea nitrogen/creatinine mass ratio 21 NRG Serum or plasma creatinine measurement w ith calculation of estimated glomerular filtration rate > NRG Serum or plasma glucose measurement (mass/volume) 240 mg/dL 70-105 Serum or plasma calcium measurement (mass/volume) 8.6 mg/dL 8.5-10.1 RED CELLS LEUKO REDUCED AS1 - 07/28/18 0 6:01 RED CELLS LEUKO REDUCED AS1 T RANSFUSED 07/29/18 1525 NRG Blood type T Indirect antibody screen [facility] - 07/28/18 06:01 ABO+Rh group OP NRG Transfusion band number [id number] NRG Blood group antibody screen NEGATIVE NR G Capillary blood glucose measurement by g lucometer (mass/volume) - 07/28/18 06:06 Capillary blood glucose measurement by glucometer (mas s/volume) 262 mg/dL 70-110 Capillary blood glucose measurement by g lucometer (mass/volume) - 07/28/18 10:53 Capillary blood glucose measurement by glucometer (mas s/volume) 292 mg/dL 70-110 Capillary blood glucose measurement by g lucometer (mass/volume) - 07/28/18 16:05 Capillary blood glucose measurement by glucometer (mas s/volume) 284 mg/dL 70-110 Whole blood hemoglobin [facility]oc[facility] - 07/28/18 16:33 Venous blood hemoglobin measurement (mass/volume) 6.6 g/dL 13.3-17.7 Blood hematocrit (volume fraction) 21 % 40-54 Capillary blood glucose measurement by g lucometer (mass/volume) - 07/28/18 20:37 Capillary blood glucose measurement by glucometer (mas s/volume) 219 mg/dL 70-110 Whole blood basic metabolic panel - 02/08 05:45 Serum or plasma sodium measurement (moles/volume) 134 mmol/L 135-145 Serum or plasma potassium measurement (moles/volume) 4.4 mmol/L 3.6-5.0 Serum or plasma chloride measurement (moles/volume) 101 mmol/L 98-107 Carbon dioxide 25 mmol/L 21-32 Serum or plasma anion gap determination (moles/volume) 8 mmol/L 5-14 Serum or plasma urea nitrogen measurement (mass/volume ) 22 mg/dL 7-18 Serum or plasma creatinine measurement (mass/volume) 0.85 mg/dL 0.60-1.30 Serum or plasma urea nitrogen/creatinine mass ratio 26 NRG Serum or plasma creatinine measurement w ith calculation of estimated glomerular filtration rate > NRG Serum or plasma glucose measurement (mass/volume) 138 mg/dL 70-105 Serum or plasma calcium measurement (mass/volume) 8.0 mg/dL 8.5-10.1 Whole blood hemoglobin and hematocrit pa [facility] - 07/29/18 05:45 Venous blood hemoglobin measurement (mass/volume) 6.4 g/dL 13.3-17.7 Blood hematocrit (volume fraction) 20 % 40-54 Capillary blood glucose measurement by g lucometer (mass/volume) - 07/29/18 05:56 Capillary blood glucose measurement by glucometer (mas s/volume) 154 mg/dL 70-110 Capillary blood glucose measurement by g lucometer (mass/volume) - 07/29/18 11:33 Capillary blood glucose measurement by glucometer (mas s/volume) 202 mg/dL 70-110 Capillary blood glucose measurement by g lucometer (mass/volume) - 07/29/18 16:19 Capillary blood glucose measurement by glucometer (mas s/volume) 191 mg/dL 70-110 Capillary blood glucose measurement by g lucometer (mass/volume) - 07/29/18 20:53 Capillary blood glucose measurement by glucometer (mas s/volume) 134 mg/dL 70-110 Capillary blood glucose measurement by g lucometer (mass/volume) - 07/30/18 05:05 Capillary blood glucose measurement by glucometer (mas s/volume) 136 mg/dL 70-110 Automated blood complete blood count (he mogram) panel - 07/30/18 05:30 Blood leukocytes automated count (number/volume) 8.5 10*3/uL 4.3-11.0 Blood erythrocytes automated count (number/volume) 2.72 10*6/uL 4.35-5.85 Venous blood hemoglobin measurement (mass/volume) 8.4 g/dL 13.3-17.7 Blood hematocrit (volume fraction) 25 % 40-54 Automated erythrocyte mean corpuscular volume 93 [ foz_us] 80-99 Automated erythrocyte mean corpuscular h emoglobin (mass per erythrocyte) 31 pg 25-34 Automated erythrocyte mean corpuscular h emoglobin concentration measurement (mass/volume) 33 g/dL 32-36 Automated erythrocyte distribution width ratio 14. 8 % 10.0- 14.5 Automated blood platelet count (count/volume) 349 10*3/uL 130-400 Automated blood platelet mean volume measurement 8.6 [foz_us] 7.4-10.4 Whole blood basic metabolic panel - 03/10 05:30 Serum or plasma sodium measurement (moles/volume) 136 mmol/L 135-145 Serum or plasma potassium measurement (moles/volume) 4.1 mmol/L 3.6-5.0 Serum or plasma chloride measurement (moles/volume) 106 mmol/L 98-107 Carbon dioxide 22 mmol/L 21-32 Serum or plasma anion gap determination (moles/volume) 8 mmol/L 5-14 Serum or plasma urea nitrogen measurement (mass/volume ) 19 mg/dL 7-18 Serum or plasma creatinine measurement (mass/volume) 0.80 mg/dL 0.60-1.30 Serum or plasma urea nitrogen/creatinine mass ratio 24 NRG Serum or plasma creatinine measurement w ith calculation of estimated glomerular filtration rate > NRG Serum or plasma glucose measurement (mass/volume) 124 mg/dL 70-105 Serum or plasma calcium measurement (mass/volume) 8.1 mg/dL 8.5-10.1 Capillary blood glucose measurement by g lucometer (mass/volume) - 07/30/18 11:26 Capillary blood glucose measurement by glucometer (mas s/volume) 137 mg/dL 70-110 Capillary blood glucose measurement by g lucometer (mass/volume) - 07/30/18 16:38 Capillary blood glucose measurement by glucometer (mas s/volume) 135 mg/dL 70-110 Capillary blood glucose measurement by g lucometer (mass/volume) - 07/30/18 19:43 Capillary blood glucose measurement by glucometer (mas s/volume) 115 mg/dL 70-110 Automated blood complete blood count ( mogram) panel - 07/31/18 05:25 Blood leukocytes automated count (number/volume) 7.4 10*3/uL 4.3-11.0 Blood erythrocytes automated count (number/volume) 2.24 10*6/uL 4.35-5.85 Venous blood hemoglobin measurement (mass/volume) 6.9 g/dL 13.3-17.7 Blood hematocrit (volume fraction) 21 % 40-54 Automated erythrocyte mean corpuscular volume 94 [ foz_us] 80-99 Automated erythrocyte mean corpuscular h emoglobin (mass per erythrocyte) 31 pg 25-34 Automated erythrocyte mean corpuscular h emoglobin concentration measurement (mass/volume) 33 g/dL 32-36 Automated erythrocyte distribution width ratio 15. 0 % 10.0- 14.5 Automated blood platelet count (count/volume) 416 10*3/uL 130-400 Automated blood platelet mean volume measurement 8.5 [foz_us] 7.4-10.4 Whole blood basic metabolic panel - 04/10 05:25 Serum or plasma sodium measurement (moles/volume) 139 mmol/L 135-145 Serum or plasma potassium measurement (moles/volume) 3.8 mmol/L 3.6-5.0 Serum or plasma chloride measurement (moles/volume) 110 mmol/L 98-107 Carbon dioxide 22 mmol/L 21-32 Serum or plasma anion gap determination (moles/volume) 7 mmol/L 5-14 Serum or plasma urea nitrogen measurement (mass/volume ) 17 mg/dL 7-18 Serum or plasma creatinine measurement (mass/volume) 0.82 mg/dL 0.60-1.30 Serum or plasma urea nitrogen/creatinine mass ratio 21 NRG Serum or plasma creatinine measurement w ith calculation of estimated glomerular filtration rate > NRG Serum or plasma glucose measurement (mass/volume) 127 mg/dL 70-105 Serum or plasma calcium measurement (mass/volume) 7.7 mg/dL 8.5-10.1 Capillary blood glucose measurement by g lucometer (mass/volume) - 07/31/18 05:43 Capillary blood glucose measurement by glucometer (mas s/volume) 139 mg/dL 70-110 RED CELLS LEUKO REDUCED AS1 - 07/31/18 0 7:03 RED CELLS LEUKO REDUCED AS1 T RANSFUSED 07/31/18 1330 NRG Blood type T Indirect antibody screen pa rachel - 07/31/18 07:03 ABO+Rh group OP NRG Transfusion band number [id number] NRG Blood group antibody screen NEGATIVE NR G Capillary blood glucose measurement by g lucometer (mass/volume) - 07/31/18 10:27 Capillary blood glucose measurement by glucometer (mas s/volume) 188 mg/dL 70-110 Methicillin resistant Staphylococcus aur eus (MRSA) screening culture - 07/31/18 11:21 Methicillin resistant Staphylococcus aureus (MRSA) scr eening culture NEG NRG Capillary blood glucose measurement by g lucometer (mass/volume) - 07/31/18 15:48 Capillary blood glucose measurement by glucometer (mas s/volume) 261 mg/dL 70-110 Whole blood hemoglobin and hematocrit pa rachel - 07/31/18 16:45 Venous blood hemoglobin measurement (mass/volume) 8.8 g/dL 13.3-17.7 Blood hematocrit (volume fraction) 26 % 40-54 Capillary blood glucose measurement by g lucometer (mass/volume) - 07/31/18 20:49 Capillary blood glucose measurement by glucometer (mas s/volume) 114 mg/dL 70-110 Capillary blood glucose measurement by g lucometer (mass/volume) - 08/01/18 05:06 Capillary blood glucose measurement by glucometer (mas s/volume) 115 mg/dL 70-110 Complete blood count (CBC) with automate d white blood cell (WBC) differential - 08/01/18 05:35 Blood leukocytes automated count (number/volume) 8.4 10*3/uL 4.3-11.0 Blood erythrocytes automated count (number/volume) 2.86 10*6/uL 4.35-5.85 Venous blood hemoglobin measurement (mass/volume) 8.7 g/dL 13.3-17.7 Blood hematocrit (volume fraction) 26 % 40-54 Automated erythrocyte mean corpuscular volume 92 [ foz_us] 80-99 Automated erythrocyte mean corpuscular h emoglobin (mass per erythrocyte) 30 pg 25-34 Automated erythrocyte mean corpuscular h emoglobin concentration measurement (mass/volume) 33 g/dL 32-36 Automated erythrocyte distribution width ratio 15. 2 % 10.0- 14.5 Automated blood platelet count (count/volume) 344 10*3/uL 130-400 Automated blood platelet mean volume measurement 8.3 [foz_us] 7.4-10.4 Automated blood neutrophils/100 leukocytes 81 % 42-75 Automated blood lymphocytes/100 leukocytes 12 % 12-44 Blood monocytes/100 leukocytes 5 % 0-12 Automated blood eosinophils/100 leukocytes 1 % 0-10 Automated blood basophils/100 leukocytes 1 % 0-10 Blood neutrophils automated count (number/volume) 6.8 10*3 1.8-7.8 Blood lymphocytes automated count (number/volume) 1.0 10*3 1.0-4.0 Blood monocytes automated count (number/volume) 0. 5 10*3 0.0-1.0 Automated eosinophil count 0.1 10*3/uL 0 .0-0.3 Automated blood basophil count (count/volume) 0.0 10*3/uL 0.0-0.1 Capillary blood glucose measurement by g lucometer (mass/volume) - 08/01/18 10:49 Capillary blood glucose measurement by glucometer (mas s/volume) 106 mg/dL 70-110 Capillary blood glucose measurement by g lucometer (mass/volume) - 08/01/18 16:10 Capillary blood glucose measurement by glucometer (mas s/volume) 312 mg/dL 70-110 Capillary blood glucose measurement by g lucometer (mass/volume) - 08/01/18 20:55 Capillary blood glucose measurement by glucometer (mas s/volume) 135 mg/dL 70-110 Capillary blood glucose measurement by g lucometer (mass/volume) - 08/02/18 05:15 Capillary blood glucose measurement by glucometer (mas s/volume) 170 mg/dL 70-110 Capillary blood glucose measurement by g lucometer (mass/volume) - 08/02/18 11:08 Capillary blood glucose measurement by glucometer (mas s/volume) 257 mg/dL 70-110 Capillary blood glucose measurement by g lucometer (mass/volume) - 08/02/18 16:16 Capillary blood glucose measurement by glucometer (mas s/volume) 175 mg/dL 70-110 Automated blood complete blood count (he mogram) panel - 08/02/18 17:10 Blood leukocytes automated count (number/volume) 10.2 10*3/uL 4.3-11.0 Blood erythrocytes automated count (number/volume) 3.02 10*6/uL 4.35-5.85 Venous blood hemoglobin measurement (mass/volume) 9.2 g/dL 13.3-17.7 Blood hematocrit (volume fraction) 28 % 40-54 Automated erythrocyte mean corpuscular volume 92 [ foz_us] 80-99 Automated erythrocyte mean corpuscular h emoglobin (mass per erythrocyte) 30 pg 25-34 Automated erythrocyte mean corpuscular h emoglobin concentration measurement (mass/volume) 33 g/dL 32-36 Automated erythrocyte distribution width ratio 15. 5 % 10.0- 14.5 Automated blood platelet count (count/volume) 423 10*3/uL 130-400 Automated blood platelet mean volume measurement 7.9 [foz_us] 7.4-10.4 Capillary blood glucose measurement by g lucometer (mass/volume) - 08/02/18 21:42 Capillary blood glucose measurement by glucometer (mas s/volume) 279 mg/dL 70-110 Capillary blood glucose measurement by g lucometer (mass/volume) - 08/03/18 05:16 Capillary blood glucose measurement by glucometer (mas s/volume) 184 mg/dL 70-110 Automated blood complete blood count (he mogram) panel - 08/03/18 05:25 Blood leukocytes automated count (number/volume) 8.2 10*3/uL 4.3-11.0 Blood erythrocytes automated count (number/volume) 2.90 10*6/uL 4.35-5.85 Venous blood hemoglobin measurement (mass/volume) 8.8 g/dL 13.3-17.7 Blood hematocrit (volume fraction) 27 % 40-54 Automated erythrocyte mean corpuscular volume 92 [ foz_us] 80-99 Automated erythrocyte mean corpuscular h emoglobin (mass per erythrocyte) 30 pg 25-34 Automated erythrocyte mean corpuscular h emoglobin concentration measurement (mass/volume) 33 g/dL 32-36 Automated erythrocyte distribution width ratio 15. 1 % 10.0- 14.5 Automated blood platelet count (count/volume) 402 10*3/uL 130-400 Automated blood platelet mean volume measurement 8.6 [foz_us] 7.4-10.4 Whole blood basic metabolic panel - 07/24 09/10 05:25 Serum or plasma sodium measurement (moles/volume) 139 mmol/L 135-145 Serum or plasma potassium measurement (moles/volume) 3.3 mmol/L 3.6-5.0 Serum or plasma chloride measurement (moles/volume) 111 mmol/L 98-107 Carbon dioxide 20 mmol/L 21-32 Serum or plasma anion gap determination (moles/volume) 8 mmol/L 5-14 Serum or plasma urea nitrogen measurement (mass/volume ) 5 mg/dL 7-18 Serum or plasma creatinine measurement (mass/volume) 0.72 mg/dL 0.60-1.30 Serum or plasma urea nitrogen/creatinine mass ratio 7 NRG Serum or plasma creatinine measurement w ith calculation of estimated glomerular filtration rate > NRG Serum or plasma glucose measurement (mass/volume) 163 mg/dL 70-105 Serum or plasma calcium measurement (mass/volume) 7.7 mg/dL 8.5-10.1 Capillary blood glucose measurement by g lucometer (mass/volume) - 08/03/18 10:58 Capillary blood glucose measurement by glucometer (mas s/volume) 232 mg/dL 70-110 Capillary blood glucose measurement by g lucometer (mass/volume) - 08/03/18 16:54 Capillary blood glucose measurement by glucometer (mas s/volume) 139 mg/dL 70-110 Capillary blood glucose measurement by g lucometer (mass/volume) - 08/03/18 20:13 Capillary blood glucose measurement by glucometer (mas s/volume) 170 mg/dL 70-110 Capillary blood glucose measurement by g lucometer (mass/volume) - 08/04/18 05:32 Capillary blood glucose measurement by glucometer (mas s/volume) 138 mg/dL 70-110 Capillary blood glucose measurement by g lucometer (mass/volume) - 08/04/18 10:56 Capillary blood glucose measurement by glucometer (mas s/volume) 171 mg/dL 70-110 Complete blood count (CBC) with automate d white blood cell (WBC) differential - 08/07/18 08:57 Blood leukocytes automated count (number/volume) 12.2 10*3/uL 4.3-11.0 Blood erythrocytes automated count (number/volume) 1.62 10*6/uL 4.35-5.85 Venous blood hemoglobin measurement (mass/volume) 4.9 g/dL 13.3-17.7 Blood hematocrit (volume fraction) 16 % 40-54 Automated erythrocyte mean corpuscular volume 96 [ foz_us] 80-99 Automated erythrocyte mean corpuscular h emoglobin (mass per erythrocyte) 30 pg 25-34 Automated erythrocyte mean corpuscular h emoglobin concentration measurement (mass/volume) 32 g/dL 32-36 Automated erythrocyte distribution width ratio 15. 7 % 10.0- 14.5 Automated blood platelet count (count/volume) 471 10*3/uL 130-400 Automated blood platelet mean volume measurement 9.1 [foz_us] 7.4-10.4 Automated blood neutrophils/100 leukocytes 80 % 42-75 Automated blood lymphocytes/100 leukocytes 15 % 12-44 Blood monocytes/100 leukocytes 5 % 0-12 Automated blood eosinophils/100 leukocytes 0 % 0-10 Automated blood basophils/100 leukocytes 0 % 0-10 Blood neutrophils automated count (number/volume) 9.7 10*3 1.8-7.8 Blood lymphocytes automated count (number/volume) 1.9 10*3 1.0-4.0 Blood monocytes automated count (number/volume) 0. 6 10*3 0.0-1.0 Automated eosinophil count 0.0 10*3/uL 0 .0-0.3 Automated blood basophil count (count/volume) 0.0 10*3/uL 0.0-0.1 PT panel in platelet poor plasma by coag ulation assay - 08/07/18 08:57 Prothrombin time (PT) in platelet poor plasma by coagu lation assay 14.3 s 12.2-14.7 INR in platelet poor plasma or blood by coagulation as say 1.1 0.8-1.4 Activated partial thromboplastin time (a PTT) in platelet poor plasma bycoagulation assay - 08/07/18 08:57 Activated partial thromboplastin time (a PTT) in platelet poor plasma bycoagulation assay 25 s 24-35 Comprehensive metabolic panel - 08/07/18 08:57 Serum or plasma sodium measurement (moles/volume) 140 mmol/L 135-145 Serum or plasma potassium measurement (moles/volume) 3.7 mmol/L 3.6-5.0 Serum or plasma chloride measurement (moles/volume) 108 mmol/L 98-107 Carbon dioxide 23 mmol/L 21-32 Serum or plasma anion gap determination (moles/volume) 9 mmol/L 5-14 Serum or plasma urea nitrogen measurement (mass/volume ) 23 mg/dL 7-18 Serum or plasma creatinine measurement (mass/volume) 0.86 mg/dL 0.60-1.30 Serum or plasma urea nitrogen/creatinine mass ratio 27 NRG Serum or plasma creatinine measurement w ith calculation of estimated glomerular filtration rate > NRG Serum or plasma glucose measurement (mass/volume) 206 mg/dL 70-105 Serum or plasma calcium measurement (mass/volume) 8.0 mg/dL 8.5-10.1 Serum or plasma total bilirubin measurement (mass/volu me) 0.2 mg/dL 0.1-1.0 Serum or plasma alkaline phosphatase tino surement (enzymatic activity/volume) 64 U/L 40-136 Serum or plasma aspartate aminotransfera se measurement (enzymatic activity/volume) 11 U/L 5-34 Serum or plasma alanine aminotransferase measurement (enzymatic activity/volume) 12 U/L 0-55 Serum or plasma protein measurement (mass/volume) 4.2 g/dL 6.4-8.2 Serum or plasma albumin measurement (mass/volume) 2.4 g/dL 3.2-4.5 CALCIUM CORRECTED 9.3 mg/dL 8.5-10.1 Magnesium - 08/07/18 08:57 Magnesium 1.6 mg/dL 1.8-2.4 Serum or plasma troponin i.cardiac measu rement (mass/volume) - 08/07/18 08:57 Serum or plasma troponin i.cardiac measurement (mass/v olume) < ng/mL <0.30 Myoglobin, serum - 08/07/18 08:57 Myoglobin, serum 61.1 ng/mL 10.0-92.0 RED CELLS LEUKO REDUCED AS1 - 08/07/18 0 9:01 RED CELLS LEUKO REDUCED AS1 T RANSFUSED 08/07/18 1009 NR Blood type T Indirect antibody screen pa rachel - 08/07/18 09:01 ABO+Rh group OP NRG Transfusion band number [id number] NR Blood group antibody screen NEGATIVE NR Automated blood complete blood count (he mogram) panel - 12/02/18 08:38 Blood leukocytes automated count (number/volume) 8.0 10*3/uL 4.3-11.0 Blood erythrocytes automated count (number/volume) 5.08 10*6/uL 4.35-5.85 Venous blood hemoglobin measurement (mass/volume) 12.1 g/dL 13.3-17.7 Blood hematocrit (volume fraction) 39 % 40-54 Automated erythrocyte mean corpuscular volume 77 [ foz_us] 80-99 Automated erythrocyte mean corpuscular h emoglobin (mass per erythrocyte) 24 pg 25-34 Automated erythrocyte mean corpuscular h emoglobin concentration measurement (mass/volume) 31 g/dL 32-36 Automated erythrocyte distribution width ratio 17. 2 % 10.0- 14.5 Automated blood platelet count (count/volume) 293 10*3/uL 130-400 Automated blood platelet mean volume measurement 9.7 [foz_us] 7.4-10.4 PT panel in platelet poor plasma by coag ulation assay - 12/02/18 08:38 Prothrombin time (PT) in platelet poor plasma by coagu lation assay 13.2 s 12.2-14.7 INR in platelet poor plasma or blood by coagulation as say 1.0 0.8-1.4 Activated partial thromboplastin time (a PTT) in platelet poor plasma bycoagulation assay - 12/02/18 08:38 Activated partial thromboplastin time (a PTT) in platelet poor plasma bycoagulation assay 30 s 24-35 Comprehensive metabolic panel - 12/02/18 08:38 Serum or plasma sodium measurement (moles/volume) 139 mmol/L 135-145 Serum or plasma potassium measurement (moles/volume) 3.7 mmol/L 3.6-5.0 Serum or plasma chloride measurement (moles/volume) 104 mmol/L 98-107 Carbon dioxide 25 mmol/L 21-32 Serum or plasma anion gap determination (moles/volume) 10 mmol/L 5-14 Serum or plasma urea nitrogen measurement (mass/volume ) 15 mg/dL 7-18 Serum or plasma creatinine measurement (mass/volume) 1.43 mg/dL 0.60-1.30 Serum or plasma urea nitrogen/creatinine mass ratio 10 NRG Serum or plasma creatinine measurement w ith calculation of estimated glomerular filtration rate 49 NRG Serum or plasma glucose measurement (mass/volume) 185 mg/dL 70-105 Serum or plasma calcium measurement (mass/volume) 9.2 mg/dL 8.5-10.1 Serum or plasma total bilirubin measurement (mass/volu me) 0.5 mg/dL 0.1-1.0 Serum or plasma alkaline phosphatase tino surement (enzymatic activity/volume) 126 U/L 40-136 Serum or plasma aspartate aminotransfera se measurement (enzymatic activity/volume) 14 U/L 5-34 Serum or plasma alanine aminotransferase measurement (enzymatic activity/volume) 15 U/L 0-55 Serum or plasma protein measurement (mass/volume) 7.2 g/dL 6.4-8.2 Serum or plasma albumin measurement (mass/volume) 4.2 g/dL 3.2-4.5 CALCIUM CORRECTED 9.0 mg/dL 8.5-10.1 Lipid 1996 panel - 12/02/18 08:38 Serum or plasma triglyceride measurement (mass/volume) 111 mg/dL <150 Serum or plasma cholesterol measurement (mass/volume) 100 mg/dL < 200 Serum or plasma cholesterol in HDL measurement (mass/v olume) 51 mg/dL 40-60 Cholesterol in LDL [mass/volume] in serum or plasma by direct assay 27 mg/dL 1-129 Serum or plasma cholesterol in VLDL measurement (mass/ volume) 22 mg/dL 5-40 Methicillin resistant Staphylococcus aur eus (MRSA) screening culture - 12/02/18 08:38 Methicillin resistant Staphylococcus aureus (MRSA) scr eening culture NEG NRG Activated partial thromboplastin time (a PTT) in platelet poor plasma bycoagulation assay - 12/02/18 15:31 Activated partial thromboplastin time (a PTT) in platelet poor plasma bycoagulation assay 38 s 24-35 Capillary blood glucose measurement by g lucometer (mass/volume) - 12/02/18 21:24 Capillary blood glucose measurement by glucometer (mas s/volume) 239 mg/dL 70-110 Automated blood complete blood count (he mogram) panel - 12/03/18 03:20 Blood leukocytes automated count (number/volume) 11.5 10*3/uL 4.3-11.0 Blood erythrocytes automated count (number/volume) 4.58 10*6/uL 4.35-5.85 Venous blood hemoglobin measurement (mass/volume) 11.0 g/dL 13.3-17.7 Blood hematocrit (volume fraction) 36 % 40-54 Automated erythrocyte mean corpuscular volume 78 [ foz_us] 80-99 Automated erythrocyte mean corpuscular h emoglobin (mass per erythrocyte) 24 pg 25-34 Automated erythrocyte mean corpuscular h emoglobin concentration measurement (mass/volume) 31 g/dL 32-36 Automated erythrocyte distribution width ratio 17. 2 % 10.0- 14.5 Automated blood platelet count (count/volume) 269 10*3/uL 130-400 Automated blood platelet mean volume measurement 9.6 [foz_us] 7.4-10.4 Whole blood basic metabolic panel - 11/22 10/12 03:20 Serum or plasma sodium measurement (moles/volume) 137 mmol/L 135-145 Serum or plasma potassium measurement (moles/volume) 4.4 mmol/L 3.6-5.0 Serum or plasma chloride measurement (moles/volume) 106 mmol/L 98-107 Carbon dioxide 19 mmol/L 21-32 Serum or plasma anion gap determination (moles/volume) 12 mmol/L 5-14 Serum or plasma urea nitrogen measurement (mass/volume ) 15 mg/dL 7-18 Serum or plasma creatinine measurement (mass/volume) 1.39 mg/dL 0.60-1.30 Serum or plasma urea nitrogen/creatinine mass ratio 11 NRG Serum or plasma creatinine measurement w ith calculation of estimated glomerular filtration rate 51 NRG Serum or plasma glucose measurement (mass/volume) 268 mg/dL 70-105 Serum or plasma calcium measurement (mass/volume) 8.8 mg/dL 8.5-10.1 Automated blood complete blood count (he mogram) panel - 12/09/18 10:40 Blood leukocytes automated count (number/volume) 8.5 10*3/uL 4.3-11.0 Blood erythrocytes automated count (number/volume) 4.69 10*6/uL 4.35-5.85 Venous blood hemoglobin measurement (mass/volume) 11.0 g/dL 13.3-17.7 Blood hematocrit (volume fraction) 36 % 40-54 Automated erythrocyte mean corpuscular volume 78 [ foz_us] 80-99 Automated erythrocyte mean corpuscular h emoglobin (mass per erythrocyte) 24 pg 25-34 Automated erythrocyte mean corpuscular h emoglobin concentration measurement (mass/volume) 30 g/dL 32-36 Automated erythrocyte distribution width ratio 17. 3 % 10.0- 14.5 Automated blood platelet count (count/volume) 293 10*3/uL 130-400 Automated blood platelet mean volume measurement 9.7 [foz_us] 7.4-10.4 PT panel in platelet poor plasma by coag ulation assay - 12/09/18 10:40 Prothrombin time (PT) in platelet poor plasma by coagu lation assay 13.8 s 12.2-14.7 INR in platelet poor plasma or blood by coagulation as say 1.0 0.8-1.4 Activated partial thromboplastin time (a PTT) in platelet poor plasma bycoagulation assay - 12/09/18 10:40 Activated partial thromboplastin time (a PTT) in platelet poor plasma bycoagulation assay 31 s 24-35 Comprehensive metabolic panel - 12/09/18 10:40 Serum or plasma sodium measurement (moles/volume) 142 mmol/L 135-145 Serum or plasma potassium measurement (moles/volume) 3.7 mmol/L 3.6-5.0 Serum or plasma chloride measurement (moles/volume) 105 mmol/L 98-107 Carbon dioxide 26 mmol/L 21-32 Serum or plasma anion gap determination (moles/volume) 11 mmol/L 5-14 Serum or plasma urea nitrogen measurement (mass/volume ) 15 mg/dL 7-18 Serum or plasma creatinine measurement (mass/volume) 1.43 mg/dL 0.60-1.30 Serum or plasma urea nitrogen/creatinine mass ratio 10 NRG Serum or plasma creatinine measurement w ith calculation of estimated glomerular filtration rate 49 NRG Serum or plasma glucose measurement (mass/volume) 99 mg/dL 70-105 Serum or plasma calcium measurement (mass/volume) 9.3 mg/dL 8.5-10.1 Serum or plasma total bilirubin measurement (mass/volu me) 0.5 mg/dL 0.1-1.0 Serum or plasma alkaline phosphatase tino surement (enzymatic activity/volume) 129 U/L 40-136 Serum or plasma aspartate aminotransfera se measurement (enzymatic activity/volume) 11 U/L 5-34 Serum or plasma alanine aminotransferase measurement (enzymatic activity/volume) 10 U/L 0-55 Serum or plasma protein measurement (mass/volume) 7.3 g/dL 6.4-8.2 Serum or plasma albumin measurement (mass/volume) 4.2 g/dL 3.2-4.5 CALCIUM CORRECTED 9.1 mg/dL 8.5-10.1 Methicillin resistant Staphylococcus aur eus (MRSA) screening culture - 12/09/18 10:40 Methicillin resistant Staphylococcus aureus (MRSA) scr eening culture NEG NRG Capillary blood glucose measurement by g lucometer (mass/volume) - 12/09/18 20:05 Capillary blood glucose measurement by glucometer (mas s/volume) 229 mg/dL 70-110 Automated blood complete blood count (he mogram) panel - 12/10/18 03:50 Blood leukocytes automated count (number/volume) 8.3 10*3/uL 4.3-11.0 Blood erythrocytes automated count (number/volume) 3.86 10*6/uL 4.35-5.85 Venous blood hemoglobin measurement (mass/volume) 9.1 g/dL 13.3-17.7 Blood hematocrit (volume fraction) 30 % 40-54 Automated erythrocyte mean corpuscular volume 78 [ foz_us] 80-99 Automated erythrocyte mean corpuscular h emoglobin (mass per erythrocyte) 24 pg 25-34 Automated erythrocyte mean corpuscular h emoglobin concentration measurement (mass/volume) 30 g/dL 32-36 Automated erythrocyte distribution width ratio 16. 9 % 10.0- 14.5 Automated blood platelet count (count/volume) 252 10*3/uL 130-400 Automated blood platelet mean volume measurement 9.5 [foz_us] 7.4-10.4 Whole blood basic metabolic panel - 11/22 05/12 03:50 Serum or plasma sodium measurement (moles/volume) 139 mmol/L 135-145 Serum or plasma potassium measurement (moles/volume) 4.2 mmol/L 3.6-5.0 Serum or plasma chloride measurement (moles/volume) 108 mmol/L 98-107 Carbon dioxide 23 mmol/L 21-32 Serum or plasma anion gap determination (moles/volume) 8 mmol/L 5-14 Serum or plasma urea nitrogen measurement (mass/volume ) 18 mg/dL 7-18 Serum or plasma creatinine measurement (mass/volume) 1.34 mg/dL 0.60-1.30 Serum or plasma urea nitrogen/creatinine mass ratio 13 NRG Serum or plasma creatinine measurement w ith calculation of estimated glomerular filtration rate 53 NRG Serum or plasma glucose measurement (mass/volume) 177 mg/dL 70-105 Serum or plasma calcium measurement (mass/volume) 8.6 mg/dL 8.5-10.1 Complete blood count (CBC) with automate d white blood cell (WBC) differential - 02/22/19 18:40 Blood leukocytes automated count (number/volume) 9.2 10*3/uL 4.3-11.0 Blood erythrocytes automated count (number/volume) 4.88 10*6/uL 4.35-5.85 Venous blood hemoglobin measurement (mass/volume) 12.1 g/dL 13.3-17.7 Blood hematocrit (volume fraction) 40 % 40-54 Automated erythrocyte mean corpuscular volume 82 [ foz_us] 80-99 Automated erythrocyte mean corpuscular h emoglobin (mass per erythrocyte) 25 pg 25-34 Automated erythrocyte mean corpuscular h emoglobin concentration measurement (mass/volume) 30 g/dL 32-36 Automated erythrocyte distribution width ratio 18. 0 % 10.0- 14.5 Automated blood platelet count (count/volume) 317 10*3/uL 130-400 Automated blood platelet mean volume measurement 8.7 [foz_us] 7.4-10.4 Automated blood neutrophils/100 leukocytes 83 % 42-75 Automated blood lymphocytes/100 leukocytes 9 % 12-44 Blood monocytes/100 leukocytes 7 % 0-12 Automated blood eosinophils/100 leukocytes 1 % 0-10 Automated blood basophils/100 leukocytes 0 % 0-10 Blood neutrophils automated count (number/volume) 7.7 10*3 1.8-7.8 Blood lymphocytes automated count (number/volume) 0.8 10*3 1.0-4.0 Blood monocytes automated count (number/volume) 0. 6 10*3 0.0-1.0 Automated eosinophil count 0.1 10*3/uL 0 .0-0.3 Automated blood basophil count (count/volume) 0.0 10*3/uL 0.0-0.1 Comprehensive metabolic panel - 02/22/19 18:40 Serum or plasma sodium measurement (moles/volume) 142 mmol/L 135-145 Serum or plasma potassium measurement (moles/volume) 3.3 mmol/L 3.6-5.0 Serum or plasma chloride measurement (moles/volume) 96 mmol/L 98-107 Carbon dioxide 39 mmol/L 21-32 Serum or plasma anion gap determination (moles/volume) 7 mmol/L 5-14 Serum or plasma urea nitrogen measurement (mass/volume ) 12 mg/dL 7-18 Serum or plasma creatinine measurement (mass/volume) 1.42 mg/dL 0.60-1.30 Serum or plasma urea nitrogen/creatinine mass ratio 8 NRG Serum or plasma creatinine measurement w ith calculation of estimated glomerular filtration rate 49 NRG Serum or plasma glucose measurement (mass/volume) 109 mg/dL 70-105 Serum or plasma calcium measurement (mass/volume) 9.0 mg/dL 8.5-10.1 Serum or plasma total bilirubin measurement (mass/volu me) 0.5 mg/dL 0.1-1.0 Serum or plasma alkaline phosphatase tino surement (enzymatic activity/volume) 122 U/L 40-136 Serum or plasma aspartate aminotransfera se measurement (enzymatic activity/volume) 31 U/L 5-34 Serum or plasma alanine aminotransferase measurement (enzymatic activity/volume) 25 U/L 0-55 Serum or plasma protein measurement (mass/volume) 6.8 g/dL 6.4-8.2 Serum or plasma albumin measurement (mass/volume) 3.8 g/dL 3.2-4.5 CALCIUM CORRECTED 9.2 mg/dL 8.5-10.1 Serum or plasma lithium measurement (mol es/volume) - 02/22/19 18:40 BNP PT 2629.1 pg/mL <100.0 Serum or plasma troponin i.cardiac measu rement (mass/volume) - 02/22/19 18:40 Serum or plasma troponin i.cardiac measurement (mass/v olume) 0.059 ng/mL <0.028 Lipase - 02/22/19 18:40 Lipase 6 U/L 8-78 Serum or plasma troponin i.cardiac measu rement (mass/volume) - 02/22/19 23:45 Serum or plasma troponin i.cardiac measurement (mass/v olume) 0.074 ng/mL <0.028 Complete blood count (CBC) with automate d white blood cell (WBC) differential - 02/23/19 05:53 Blood leukocytes automated count (number/volume) 10.7 10*3/uL 4.3-11.0 Blood erythrocytes automated count (number/volume) 4.46 10*6/uL 4.35-5.85 Venous blood hemoglobin measurement (mass/volume) 11.1 g/dL 13.3-17.7 Blood hematocrit (volume fraction) 37 % 40-54 Automated erythrocyte mean corpuscular volume 83 [ foz_us] 80-99 Automated erythrocyte mean corpuscular h emoglobin (mass per erythrocyte) 25 pg 25-34 Automated erythrocyte mean corpuscular h emoglobin concentration measurement (mass/volume) 30 g/dL 32-36 Automated erythrocyte distribution width ratio 18. 3 % 10.0- 14.5 Automated blood platelet count (count/volume) 269 10*3/uL 130-400 Automated blood platelet mean volume measurement 9.2 [foz_us] 7.4-10.4 Automated blood neutrophils/100 leukocytes 79 % 42-75 Automated blood lymphocytes/100 leukocytes 13 % 12-44 Blood monocytes/100 leukocytes 7 % 0-12 Automated blood eosinophils/100 leukocytes 1 % 0-10 Automated blood basophils/100 leukocytes 0 % 0-10 Blood neutrophils automated count (number/volume) 8.5 10*3 1.8-7.8 Blood lymphocytes automated count (number/volume) 1.4 10*3 1.0-4.0 Blood monocytes automated count (number/volume) 0. 7 10*3 0.0-1.0 Automated eosinophil count 0.1 10*3/uL 0 .0-0.3 Automated blood basophil count (count/volume) 0.0 10*3/uL 0.0-0.1 Comprehensive metabolic panel - 02/23/19 05:53 Serum or plasma sodium measurement (moles/volume) 140 mmol/L 135-145 Serum or plasma potassium measurement (moles/volume) 3.4 mmol/L 3.6-5.0 Serum or plasma chloride measurement (moles/volume) 96 mmol/L 98-107 Carbon dioxide 32 mmol/L 21-32 Serum or plasma anion gap determination (moles/volume) 12 mmol/L 5-14 Serum or plasma urea nitrogen measurement (mass/volume ) 14 mg/dL 7-18 Serum or plasma creatinine measurement (mass/volume) 1.50 mg/dL 0.60-1.30 Serum or plasma urea nitrogen/creatinine mass ratio 9 NRG Serum or plasma creatinine measurement w ith calculation of estimated glomerular filtration rate 46 NRG Serum or plasma glucose measurement (mass/volume) 189 mg/dL 70-105 Serum or plasma calcium measurement (mass/volume) 9.0 mg/dL 8.5-10.1 Serum or plasma total bilirubin measurement (mass/volu me) 0.4 mg/dL 0.1-1.0 Serum or plasma alkaline phosphatase tino surement (enzymatic activity/volume) 128 U/L 40-136 Serum or plasma aspartate aminotransfera se measurement (enzymatic activity/volume) 29 U/L 5-34 Serum or plasma alanine aminotransferase measurement (enzymatic activity/volume) 23 U/L 0-55 Serum or plasma protein measurement (mass/volume) 6.3 g/dL 6.4-8.2 Serum or plasma albumin measurement (mass/volume) 3.5 g/dL 3.2-4.5 CALCIUM CORRECTED 9.4 mg/dL 8.5-10.1 Serum or plasma troponin i.cardiac measu rement (mass/volume) - 02/23/19 05:53 Serum or plasma troponin i.cardiac measurement (mass/v olume) 0.077 ng/mL <0.028 Capillary blood glucose measurement by g lucometer (mass/volume) - 02/23/19 21:26 Capillary blood glucose measurement by glucometer (mas s/volume) 306 mg/dL 70-110 Complete blood count (CBC) with automate d white blood cell (WBC) differential - 02/24/19 05:05 Blood leukocytes automated count (number/volume) 7.7 10*3/uL 4.3-11.0 Blood erythrocytes automated count (number/volume) 4.30 10*6/uL 4.35-5.85 Venous blood hemoglobin measurement (mass/volume) 10.6 g/dL 13.3-17.7 Blood hematocrit (volume fraction) 36 % 40-54 Automated erythrocyte mean corpuscular volume 84 [ foz_us] 80-99 Automated erythrocyte mean corpuscular h emoglobin (mass per erythrocyte) 25 pg 25-34 Automated erythrocyte mean corpuscular h emoglobin concentration measurement (mass/volume) 29 g/dL 32-36 Automated erythrocyte distribution width ratio 18. 3 % 10.0- 14.5 Automated blood platelet count (count/volume) 274 10*3/uL 130-400 Automated blood platelet mean volume measurement 8.8 [foz_us] 7.4-10.4 Automated blood neutrophils/100 leukocytes 72 % 42-75 Automated blood lymphocytes/100 leukocytes 16 % 12-44 Blood monocytes/100 leukocytes 8 % 0-12 Automated blood eosinophils/100 leukocytes 4 % 0-10 Automated blood basophils/100 leukocytes 0 % 0-10 Blood neutrophils automated count (number/volume) 5.5 10*3 1.8-7.8 Blood lymphocytes automated count (number/volume) 1.3 10*3 1.0-4.0 Blood monocytes automated count (number/volume) 0. 6 10*3 0.0-1.0 Automated eosinophil count 0.3 10*3/uL 0 .0-0.3 Automated blood basophil count (count/volume) 0.0 10*3/uL 0.0-0.1 Comprehensive metabolic panel - 02/24/19 05:05 Serum or plasma sodium measurement (moles/volume) 141 mmol/L 135-145 Serum or plasma potassium measurement (moles/volume) 3.7 mmol/L 3.6-5.0 Serum or plasma chloride measurement (moles/volume) 98 mmol/L 98-107 Carbon dioxide 35 mmol/L 21-32 Serum or plasma anion gap determination (moles/volume) 8 mmol/L 5-14 Serum or plasma urea nitrogen measurement (mass/volume ) 16 mg/dL 7-18 Serum or plasma creatinine measurement (mass/volume) 1.46 mg/dL 0.60-1.30 Serum or plasma urea nitrogen/creatinine mass ratio 11 NRG Serum or plasma creatinine measurement w ith calculation of estimated glomerular filtration rate 48 NRG Serum or plasma glucose measurement (mass/volume) 64 mg/dL 70-105 Serum or plasma calcium measurement (mass/volume) 9.0 mg/dL 8.5-10.1 Serum or plasma total bilirubin measurement (mass/volu me) 0.4 mg/dL 0.1-1.0 Serum or plasma alkaline phosphatase tino surement (enzymatic activity/volume) 119 U/L 40-136 Serum or plasma aspartate aminotransfera se measurement (enzymatic activity/volume) 20 U/L 5-34 Serum or plasma alanine aminotransferase measurement (enzymatic activity/volume) 18 U/L 0-55 Serum or plasma protein measurement (mass/volume) 5.8 g/dL 6.4-8.2 Serum or plasma albumin measurement (mass/volume) 3.4 g/dL 3.2-4.5 CALCIUM CORRECTED 9.5 mg/dL 8.5-10.1 Capillary blood glucose measurement by g lucometer (mass/volume) - 02/24/19 20:57 Capillary blood glucose measurement by glucometer (mas s/volume) 253 mg/dL 70-110 Capillary blood glucose measurement by g lucometer (mass/volume) - 02/25/19 20:44 Capillary blood glucose measurement by glucometer (mas s/volume) 404 mg/dL 70-110 Capillary blood glucose measurement by g lucometer (mass/volume) - 02/26/19 05:12 Capillary blood glucose measurement by glucometer (mas s/volume) 169 mg/dL 70-110 Complete blood count (CBC) with automate d white blood cell (WBC) differential - 02/26/19 05:25 Blood leukocytes automated count (number/volume) 8.5 10*3/uL 4.3-11.0 Blood erythrocytes automated count (number/volume) 4.30 10*6/uL 4.35-5.85 Venous blood hemoglobin measurement (mass/volume) 10.8 g/dL 13.3-17.7 Blood hematocrit (volume fraction) 36 % 40-54 Automated erythrocyte mean corpuscular volume 83 [ foz_us] 80-99 Automated erythrocyte mean corpuscular h emoglobin (mass per erythrocyte) 25 pg 25-34 Automated erythrocyte mean corpuscular h emoglobin concentration measurement (mass/volume) 30 g/dL 32-36 Automated erythrocyte distribution width ratio 18. 0 % 10.0- 14.5 Automated blood platelet count (count/volume) 264 10*3/uL 130-400 Automated blood platelet mean volume measurement 8.0 [foz_us] 7.4-10.4 Automated blood neutrophils/100 leukocytes 78 % 42-75 Automated blood lymphocytes/100 leukocytes 12 % 12-44 Blood monocytes/100 leukocytes 7 % 0-12 Automated blood eosinophils/100 leukocytes 3 % 0-10 Automated blood basophils/100 leukocytes 0 % 0-10 Blood neutrophils automated count (number/volume) 6.6 10*3 1.8-7.8 Blood lymphocytes automated count (number/volume) 1.0 10*3 1.0-4.0 Blood monocytes automated count (number/volume) 0. 6 10*3 0.0-1.0 Automated eosinophil count 0.3 10*3/uL 0 .0-0.3 Automated blood basophil count (count/volume) 0.0 10*3/uL 0.0-0.1 Comprehensive metabolic panel - 02/26/19 05:25 Serum or plasma sodium measurement (moles/volume) 139 mmol/L 135-145 Serum or plasma potassium measurement (moles/volume) 4.4 mmol/L 3.6-5.0 Serum or plasma chloride measurement (moles/volume) 101 mmol/L 98-107 Carbon dioxide 28 mmol/L 21-32 Serum or plasma anion gap determination (moles/volume) 10 mmol/L 5-14 Serum or plasma urea nitrogen measurement (mass/volume ) 14 mg/dL 7-18 Serum or plasma creatinine measurement (mass/volume) 1.38 mg/dL 0.60-1.30 Serum or plasma urea nitrogen/creatinine mass ratio 10 NRG Serum or plasma creatinine measurement w ith calculation of estimated glomerular filtration rate 51 NRG Serum or plasma glucose measurement (mass/volume) 158 mg/dL 70-105 Serum or plasma calcium measurement (mass/volume) 9.1 mg/dL 8.5-10.1 Serum or plasma total bilirubin measurement (mass/volu me) 0.4 mg/dL 0.1-1.0 Serum or plasma alkaline phosphatase tino surement (enzymatic activity/volume) 120 U/L 40-136 Serum or plasma aspartate aminotransfera se measurement (enzymatic activity/volume) 21 U/L 5-34 Serum or plasma alanine aminotransferase measurement (enzymatic activity/volume) 17 U/L 0-55 Serum or plasma protein measurement (mass/volume) 6.2 g/dL 6.4-8.2 Serum or plasma albumin measurement (mass/volume) 3.5 g/dL 3.2-4.5 CALCIUM CORRECTED 9.5 mg/dL 8.5-10.1 Capillary blood glucose measurement by g lucometer (mass/volume) - 02/26/19 10:58 Capillary blood glucose measurement by glucometer (mas s/volume) 188 mg/dL 70-110 Complete blood count (CBC) with automate d white blood cell (WBC) differential - 03/07/19 12:12 Blood leukocytes automated count (number/volume) 15.9 10*3/uL 4.3-11.0 Blood erythrocytes automated count (number/volume) 4.89 10*6/uL 4.35-5.85 Venous blood hemoglobin measurement (mass/volume) 12.3 g/dL 13.3-17.7 Blood hematocrit (volume fraction) 40 % 40-54 Automated erythrocyte mean corpuscular volume 82 [ foz_us] 80-99 Automated erythrocyte mean corpuscular h emoglobin (mass per erythrocyte) 25 pg 25-34 Automated erythrocyte mean corpuscular h emoglobin concentration measurement (mass/volume) 31 g/dL 32-36 Automated erythrocyte distribution width ratio 17. 9 % 10.0- 14.5 Automated blood platelet count (count/volume) 320 10*3/uL 130-400 Automated blood platelet mean volume measurement 9.0 [foz_us] 7.4-10.4 Automated blood neutrophils/100 leukocytes 95 % 42-75 Automated blood lymphocytes/100 leukocytes 3 % 12-44 Blood monocytes/100 leukocytes 2 % 0-12 Automated blood eosinophils/100 leukocytes 0 % 0-10 Automated blood basophils/100 leukocytes 0 % 0-10 Blood neutrophils automated count (number/volume) 15.0 10*3 1.8-7.8 Blood lymphocytes automated count (number/volume) 0.5 10*3 1.0-4.0 Blood monocytes automated count (number/volume) 0. 4 10*3 0.0-1.0 Automated eosinophil count 0.0 10*3/uL 0 .0-0.3 Automated blood basophil count (count/volume) 0.0 10*3/uL 0.0-0.1 PT panel in platelet poor plasma by coag ulation assay - 03/07/19 12:12 Prothrombin time (PT) in platelet poor plasma by coagu lation assay 12.8 s 12.2-14.7 INR in platelet poor plasma or blood by coagulation as say 0.9 0.8-1.4 Activated partial thromboplastin time (a PTT) in platelet poor plasma bycoagulation assay - 03/07/19 12:12 Activated partial thromboplastin time (a PTT) in platelet poor plasma bycoagulation assay 26 s 24-35 Comprehensive metabolic panel - 03/07/19 12:12 Serum or plasma sodium measurement (moles/volume) 142 mmol/L 135-145 Serum or plasma potassium measurement (moles/volume) 4.1 mmol/L 3.6-5.0 Serum or plasma chloride measurement (moles/volume) 104 mmol/L 98-107 Carbon dioxide 27 mmol/L 21-32 Serum or plasma anion gap determination (moles/volume) 11 mmol/L 5-14 Serum or plasma urea nitrogen measurement (mass/volume ) 23 mg/dL 7-18 Serum or plasma creatinine measurement (mass/volume) 1.54 mg/dL 0.60-1.30 Serum or plasma urea nitrogen/creatinine mass ratio 15 NRG Serum or plasma creatinine measurement w ith calculation of estimated glomerular filtration rate 45 NRG Serum or plasma glucose measurement (mass/volume) 97 mg/dL 70-105 Serum or plasma calcium measurement (mass/volume) 9.2 mg/dL 8.5-10.1 Serum or plasma total bilirubin measurement (mass/volu me) 0.3 mg/dL 0.1-1.0 Serum or plasma alkaline phosphatase tino surement (enzymatic activity/volume) 122 U/L 40-136 Serum or plasma aspartate aminotransfera se measurement (enzymatic activity/volume) 45 U/L 5-34 Serum or plasma alanine aminotransferase measurement (enzymatic activity/volume) 27 U/L 0-55 Serum or plasma protein measurement (mass/volume) 7.5 g/dL 6.4-8.2 Serum or plasma albumin measurement (mass/volume) 4.2 g/dL 3.2-4.5 CALCIUM CORRECTED 9.0 mg/dL 8.5-10.1 Manual absolute plasma cell count - 02/21 01/09 12:12 Blood monocytes/100 leukocytes 3 % NRG Manual blood segmented neutrophils/100 leukocytes 96 % NRG Blood band neutrophils/100 leukocytes 0 % NRG Manual blood lymphocytes/100 leukocytes 1 % NRG Manual eosinophils/100 leukocytes in nose 0 % NRG Manual blood basophils/100 leukocytes 0 % NRG Blood anisocytosis detection by light microscopy M ODERATE NRG Capillary blood glucose measurement by g lucometer (mass/volume) - 03/07/19 12:15 Capillary blood glucose measurement by glucometer (mas s/volume) 84 mg/dL 70-110 Blood lactic acid measurement (moles/vol ume) - 03/07/19 12:16 Blood lactic acid measurement (moles/volume) 1.82 mmol/L 0.50-2.00 Bacterial blood culture - 03/07/19 12:16 FREE TEXT EXTERNAL SEE COMMENT NRG QUANTITY OF GROWTH Isolated NRG Bacterial blood culture [id number] NR Bacterial blood culture - 03/07/19 12:33 Bacterial blood culture NG NRG Complete urinalysis with reflex to cultu re - 03/07/19 13:25 Urine color determination YELLOW NRG Urine clarity determination CLEAR NR G Urine pH measurement by test strip 7 5-9 Specific gravity of urine by test strip 1.010 1.016-1.022 Urine protein assay by test strip, semi-quantitative 3+ NEGATIVE Urine glucose detection by automated test strip 1+ NEGATIVE Erythrocytes detection in urine sediment by light micr oscopy 1+ NEGATIVE Urine ketones detection by automated test strip NE GATIVE NEGATIVE Urine nitrite detection by test strip NEGATIVE NEGATIVE Urine total bilirubin detection by test strip NEGA TIVE NEGATIVE Urine urobilinogen measurement by automated test strip (mass/volume) NORMAL NORMAL Urine leukocyte esterase detection by dipstick NEG ATIVE NEGATIVE Automated urine sediment erythrocyte cou nt by microscopy (number/high power field) [HPF] NRG Automated urine sediment leukocyte count by microscopy (number/high power field) NONE NRG Bacteria detection in urine sediment by light microsco py NEGATIVE NRG Squamous epithelial cells detection in u rine sediment by light microscopy NONE NRG Crystals detection in urine sediment by light microsco py NONE NRG Casts detection in urine sediment by light microscopy NONE NRG Mucus detection in urine sediment by light microscopy NEGATIVE NRG Complete urinalysis with reflex to culture CULTURE PENDING NRG Bacterial urine culture - 03/07/19 13:25 Bacterial urine culture NG NRG Capillary blood glucose measurement by g lucometer (mass/volume) - 03/07/19 15:57 Capillary blood glucose measurement by glucometer (mas s/volume) 72 mg/dL 70-110 Capillary blood glucose measurement by g lucometer (mass/volume) - 03/07/19 22:05 Capillary blood glucose measurement by glucometer (mas s/volume) 185 mg/dL 70-110 Complete blood count (CBC) with automate d white blood cell (WBC) differential - 03/08/19 05:00 Blood leukocytes automated count (number/volume) 8.2 10*3/uL 4.3-11.0 Blood erythrocytes automated count (number/volume) 4.43 10*6/uL 4.35-5.85 Venous blood hemoglobin measurement (mass/volume) 11.0 g/dL 13.3-17.7 Blood hematocrit (volume fraction) 36 % 40-54 Automated erythrocyte mean corpuscular volume 82 [ foz_us] 80-99 Automated erythrocyte mean corpuscular h emoglobin (mass per erythrocyte) 25 pg 25-34 Automated erythrocyte mean corpuscular h emoglobin concentration measurement (mass/volume) 30 g/dL 32-36 Automated erythrocyte distribution width ratio 18. 2 % 10.0- 14.5 Automated blood platelet count (count/volume) 287 10*3/uL 130-400 Automated blood platelet mean volume measurement 9.1 [foz_us] 7.4-10.4 Automated blood neutrophils/100 leukocytes 78 % 42-75 Automated blood lymphocytes/100 leukocytes 12 % 12-44 Blood monocytes/100 leukocytes 8 % 0-12 Automated blood eosinophils/100 leukocytes 1 % 0-10 Automated blood basophils/100 leukocytes 0 % 0-10 Blood neutrophils automated count (number/volume) 6.4 10*3 1.8-7.8 Blood lymphocytes automated count (number/volume) 1.0 10*3 1.0-4.0 Blood monocytes automated count (number/volume) 0. 7 10*3 0.0-1.0 Automated eosinophil count 0.1 10*3/uL 0 .0-0.3 Automated blood basophil count (count/volume) 0.0 10*3/uL 0.0-0.1 Comprehensive metabolic panel - 03/08/19 05:00 Serum or plasma sodium measurement (moles/volume) 138 mmol/L 135-145 Serum or plasma potassium measurement (moles/volume) 4.6 mmol/L 3.6-5.0 Serum or plasma chloride measurement (moles/volume) 104 mmol/L 98-107 Carbon dioxide 25 mmol/L 21-32 Serum or plasma anion gap determination (moles/volume) 9 mmol/L 5-14 Serum or plasma urea nitrogen measurement (mass/volume ) 17 mg/dL 7-18 Serum or plasma creatinine measurement (mass/volume) 1.49 mg/dL 0.60-1.30 Serum or plasma urea nitrogen/creatinine mass ratio 11 NRG Serum or plasma creatinine measurement w ith calculation of estimated glomerular filtration rate 47 NRG Serum or plasma glucose measurement (mass/volume) 235 mg/dL 70-105 Serum or plasma calcium measurement (mass/volume) 9.1 mg/dL 8.5-10.1 Serum or plasma total bilirubin measurement (mass/volu me) 0.3 mg/dL 0.1-1.0 Serum or plasma alkaline phosphatase tino surement (enzymatic activity/volume) 130 U/L 40-136 Serum or plasma aspartate aminotransfera se measurement (enzymatic activity/volume) 39 U/L 5-34 Serum or plasma alanine aminotransferase measurement (enzymatic activity/volume) 23 U/L 0-55 Serum or plasma protein measurement (mass/volume) 6.4 g/dL 6.4-8.2 Serum or plasma albumin measurement (mass/volume) 3.7 g/dL 3.2-4.5 CALCIUM CORRECTED 9.3 mg/dL 8.5-10.1 Capillary blood glucose measurement by g lucometer (mass/volume) - 03/08/19 05:11 Capillary blood glucose measurement by glucometer (mas s/volume) 219 mg/dL 70-110 Capillary blood glucose measurement by g lucometer (mass/volume) - 03/08/19 10:56 Capillary blood glucose measurement by glucometer (mas s/volume) 190 mg/dL 70-110 Capillary blood glucose measurement by g lucometer (mass/volume) - 03/08/19 15:47 Capillary blood glucose measurement by glucometer (mas s/volume) 202 mg/dL 70-110 Capillary blood glucose measurement by g lucometer (mass/volume) - 03/08/19 20:28 Capillary blood glucose measurement by glucometer (mas s/volume) 252 mg/dL 70-110 Complete blood count (CBC) with automate d white blood cell (WBC) differential - 03/09/19 04:49 Blood leukocytes automated count (number/volume) 9.2 10*3/uL 4.3-11.0 Blood erythrocytes automated count (number/volume) 4.12 10*6/uL 4.35-5.85 Venous blood hemoglobin measurement (mass/volume) 10.3 g/dL 13.3-17.7 Blood hematocrit (volume fraction) 34 % 40-54 Automated erythrocyte mean corpuscular volume 83 [ foz_us] 80-99 Automated erythrocyte mean corpuscular h emoglobin (mass per erythrocyte) 25 pg 25-34 Automated erythrocyte mean corpuscular h emoglobin concentration measurement (mass/volume) 30 g/dL 32-36 Automated erythrocyte distribution width ratio 17. 7 % 10.0- 14.5 Automated blood platelet count (count/volume) 264 10*3/uL 130-400 Automated blood platelet mean volume measurement 9.2 [foz_us] 7.4-10.4 Automated blood neutrophils/100 leukocytes 85 % 42-75 Automated blood lymphocytes/100 leukocytes 5 % 12-44 Blood monocytes/100 leukocytes 7 % 0-12 Automated blood eosinophils/100 leukocytes 3 % 0-10 Automated blood basophils/100 leukocytes 0 % 0-10 Blood neutrophils automated count (number/volume) 7.8 10*3 1.8-7.8 Blood lymphocytes automated count (number/volume) 0.5 10*3 1.0-4.0 Blood monocytes automated count (number/volume) 0. 7 10*3 0.0-1.0 Automated eosinophil count 0.3 10*3/uL 0 .0-0.3 Automated blood basophil count (count/volume) 0.0 10*3/uL 0.0-0.1 Comprehensive metabolic panel - 03/09/19 04:49 Serum or plasma sodium measurement (moles/volume) 138 mmol/L 135-145 Serum or plasma potassium measurement (moles/volume) 4.3 mmol/L 3.6-5.0 Serum or plasma chloride measurement (moles/volume) 104 mmol/L 98-107 Carbon dioxide 24 mmol/L 21-32 Serum or plasma anion gap determination (moles/volume) 10 mmol/L 5-14 Serum or plasma urea nitrogen measurement (mass/volume ) 20 mg/dL 7-18 Serum or plasma creatinine measurement (mass/volume) 1.53 mg/dL 0.60-1.30 Serum or plasma urea nitrogen/creatinine mass ratio 13 NRG Serum or plasma creatinine measurement w ith calculation of estimated glomerular filtration rate 45 NRG Serum or plasma glucose measurement (mass/volume) 184 mg/dL 70-105 Serum or plasma calcium measurement (mass/volume) 8.7 mg/dL 8.5-10.1 Serum or plasma total bilirubin measurement (mass/volu me) 0.3 mg/dL 0.1-1.0 Serum or plasma alkaline phosphatase tino surement (enzymatic activity/volume) 117 U/L 40-136 Serum or plasma aspartate aminotransfera se measurement (enzymatic activity/volume) 28 U/L 5-34 Serum or plasma alanine aminotransferase measurement (enzymatic activity/volume) 22 U/L 0-55 Serum or plasma protein measurement (mass/volume) 6.0 g/dL 6.4-8.2 Serum or plasma albumin measurement (mass/volume) 3.3 g/dL 3.2-4.5 CALCIUM CORRECTED 9.3 mg/dL 8.5-10.1 Capillary blood glucose measurement by g lucometer (mass/volume) - 03/09/19 05:32 Capillary blood glucose measurement by glucometer (mas s/volume) 199 mg/dL 70-110 Capillary blood glucose measurement by g lucometer (mass/volume) - 03/09/19 11:16 Capillary blood glucose measurement by glucometer (mas s/volume) 206 mg/dL 70-110 [id number] - 04/06/19 11:20 Serum or plasma urea nitrogen measurement (mass/volume ) 16 mg/dL 7-18 Serum or plasma creatinine measurement (mass/volume) 1.34 mg/dL 0.60-1.30 Serum or plasma urea nitrogen/creatinine mass ratio 12 NRG Serum or plasma creatinine measurement w ith calculation of estimated glomerular filtration rate 53 NRG Arterial blood gas measurement - 9 11:40 Blood pCO2 37 mm[Hg] 35-45 Blood pO2 66 mm[Hg] 79-93 Arterial blood bicarbonate measurement (moles/volume) 28 mmol/L 23-27 Arterial blood base excess by calculation 3.9 mmol /L -2.5-2.5 Arterial blood oxygen saturation measurement 96 % 94-100 * Inhaled oxygen flow rate ROOM AIR NRG Arterial blood pH measurement with patient temperature correction 7.48 7.37-7.43 Arterial blood carbon dioxide, total measurement (mole s/volume) 28.7 mmol/L 21.0-31.0 Body site RT RAD NRG Assessment of wrist artery patency prior to arterial p uncture YES-POS NRG Setting of ventilation mode NO NR G Measurement of body temperature 96.6 NRG Encounters ACCT No. Visit Date/Time Discharge Status Pt. Type Provider Facility Loc./Unit Complaint [id number] 06/20/2014 16:14:00 06/20/2014 23:59: 59 [facility] Outpatient ALBERT ABEL DO [id number] 02/20/2014 12:03:00 02/20/2014 23:59: 59 [facility] Outpatient RONDA STAHL APRN [id number] 01/30/2014 11:52:00 01/30/2014 23:59: 59 [facility] Outpatient RONDA STAHL APRN [id number] 06/15/2013 00:00:00 06/15/2013 23:59: 59 C[facility] Outpatient RONDA STAHL APRN [id number] 09/21/2012 14:41:00 09/21/2012 23:59: 59 CLS Outpatient RONDA STAHL APRN [id number] 09/21/2012 14:41:00 09/21/2012 23:59: 59 CLS Outpatient [id number] 06/15/2012 13:27:00 06/15/2012 23:59: 59 CLS Outpatient [id number] 06/15/2012 13:27:00 06/15/2012 23:59:5 9 CLS Outpatient [id number] 04/04/2013 12:41:00 Document Registration [id number] 10/27/2019 13:40:00 10/27/2019 23:59:5 9 CLS Outpatient [facility]ON[facility]HL [facility]N [facility] [id number] 06/24/2018 09:00:00 Document Registration [id number] 09/07/2019 13:08:00 23:59:59 CLS Outpatient RHEA BURRIS APRN [facility] RAD DYSPNEA,COPD,HX OF SMOKING [id number] 05/27/2019 10:15:00 23:59:59 CLS Outpatient RHEA BURRIS APRN [facility] RAD DYSPNEA [id number] 05/04/2019 09:05:00 23:59:59 CLS Outpatient SARITA GRAY MD [facility] RAD CHRONIC KIDNEY DISEASE STAGE 3 [id number] 04/28/2019 12:07:00 23:59:59 CLS Outpatient RHEA BURRIS APRN [facility] RT DYSPNEA [id number] 04/06/2019 11:10:00 23:59:59 CLS Outpatient RHEA BURRIS APRN [facility] RAD DYSPNEA [id number] 03/07/2019 14:05:00 15:22:00 DIS Inpatient FRANCA LAO DO, V [facility] 4TH HYPOGLYCEMIA;UNRESPONSI VE STATE [id number] 02/25/2019 12:40:00 13:30:00 DIS Inpatient TAMIKO ABEL DOA K [facility] 4TH CHF EXACERBATION [id number] 12/09/2018 10:09:00 11:25:00 DIS Outpatient Jose GRAY MD [facility] CATH CLAUDICATION,SEVERE [id number] 12/02/2018 08:06:00 10:58:00 DIS Outpatient Jose GRAY MD [facility] CATH SYMPTOMATIC SEVERE LIFE STYLE LIMITING CLAUDICATION [id number] 12/01/2018 11:37:00 23:59:59 CLS Outpatient MARINA MILLER, Jose ORTEGA [facility] CARD CAD [id number] 08/07/2018 08:46:00 11:51:00 DIS Emergency MAMI MILLER, DERIAN Sawant [facility] ER DIARRHEA W BLOO D [id number] 07/07/2018 01:02:00 13:00:00 DIS Inpatient KWASI MILLER, JOHN Wood [facility] 4TH GI BLEED,HYPERGLYCEMIA, RENAL FAILURE,LEUKOCYTOSIS [id number] 06/24/2018 09:25:00 23:59:59 CLS Outpatient JAVIER MARTINEZ DO [facility] ENDO EGD [id number] 09/12/2020 10:15:00 P EN Preadmit RHEA BURRIS APRN [facility] RAD COPD,UNSPECIFIED [id number] 11/07/2019 14:00:00 P EN Preadmit MARINA MILLER, Jose ORTEGA [facility] CATH RESTING RT LEG DISCOMFORT,SE DEREJE PAD
--- NOTE | 2019-11-07 15:20 | Coronary Angiography Report ---
Peripheral Angiography DATE OF SERVICE: 11/07/19 Bilateral lower extremity angiogram. PRIMARY PHYSICIAN: [facility] PERFORMING INTERVENTIONALIST: Dr. Kusum Chandra INDICATION: Resting right foot discomfort. Previous history of PAD. PREOPERATIVE INDICATION: Resting right foot discomfort. Previous history of PAD. POSTOPERATIVE DIAGNOSIS: Bilateral SFA stent occlusions. HISTORY: This is 69-year-old gentleman with previous bilateral SFA stents. Presented with resting right fourth discomfort. Noninvasive testing was significantly abnormal. Peripheral angiogram and intervention is recommended. PROCEDURE PERFORMED: 1. Bilateral lower extremity angiogram. 2. Second order right lower extremity selective angiogram. SPECIMENS: None. ANESTHESIA: Conscious sedation. BLOOD LOSS: 20 mL. COMPLICATIONS: None. CONTRAST USED: 85 ml. FLUOROSCOPY DOSE: 370 Mgy. FLUOROSCOPY TIME: 13.4 minutes. ANTICOAGULATION: none. 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 All the risks and complications were explained in detail. The patient was draped and prepped in the usual sterile fashion. Access was gained left femoral artery with a 5 Somali sheath. A pigtail catheter was placed in the distal abdominal aorta and bilateral lower extremity angiogram was performed. Findings below. We were unable to cross with a stork wire and the pigtail catheter therefore we excha nged with a rim catheter. We were then able to advance the Storq wire and placed the tip in the deep femoral artery. The rim catheter and the 5 Somali sheath were taken out and we advanced a 6 x 55 cm long sheath. Second order selective right lower extremity angiogram was done. We then used an angled catheter with the command 0.018 short tapered wire but were not able to cross into the SFA. We exchanged for a command 0.018 long taper wire but were still not able to cross into the SFA. At this point in time we decided to not proceed with further attempted intervention. Pullback through the long sheath showed at least 50 mmHg gradient from the right CHANGE MANAGEMENT COORDINATOR to the distal abdominal aorta; likely site is the right external iliac artery. Quick angiogram of the bifurcation showed no damage to the bifurcation. Pullback in the left iliac artery system did not show any hemodynamically significant lesion. We switched the long sheath with a 6 Somali short sheath. Minx closure was performed. FINDINGS: Mild distal abdominal aortic disease. Right lower extremity: Mild to moderate right common iliac artery stenosis with moderate to severe right external iliac artery stenosis which was hemodynamically significant with a gradient of 50 mmHg. Flush occlusion of the ostium of the SFA within the stents with reconstitution in the distal SFA. Collaterals supplied by deep femoral artery. Normal popliteal artery. Normal posterior tibial artery. Anterior tibial artery seemed to be patent almost to the ankle joint. Deep peroneal artery is not well visualized. Left lower extremity: Mild to moderate left common iliac and external iliac artery disease which is not hemodynamically significant. Occlusion of the stents in the SFA from ostium till proximal popliteal artery. Patent popliteal artery with normal posterior tibial artery. Anterior tibial and deep peroneal artery are likely patent. CONCLUSION: Bilateral SFA stent occlusions. Severe right external iliac artery stenosis. Unsuccessful attempt at revascularization of the right SFA occlusion. Surgical consultation for possible abdominal by popliteal bypass graft. IV fluids. Dual antiplatelet therapy. Kusum Chandra MD, FACP, FACC, [facility] Vascular Medicine and Endovascular Interventions Jose CHANDRA MD Nov 07, 2019 15:20
--- NOTE | 2019-11-07 15:25 | Discharge Inst-Post CATH ---
Discharge Inst-CATH/EP Problems Reviewed?: Yes Final Diagnosis Bilateral SFA in-stent occlusions. Right resting foot discomfort Post Cardiac Cath/EP D/C Inst Follow Up/Plan We will arrange for surgical consultation at [facility]. Follow-up with Dr. Chandra in 8 weeks. <b>CARDIAC CATH/EP PROCEDURE DISCHARGE INSTRUCTIONS</b> ACTIVITY * Go Home directly and rest. * Limit activity of the leg (or wrist if it was used) for 7 days including aerobics, swimming, jogging, bicycling, etc. * Restrict stair-climbing for 7 days if possible, if not, climb up with your non-cath leg, then bring together on the same step. * Avoid lifting, pushing, pulling or excessive movement of the affected extremity for 7 days. * Customary sexual activity may be resumed after 2 days-use caution not to use a position that strains or causes pain to the affected extremity. * No driving for 24 hours. * NO SMOKING. * Avoid straining for bowel movements for 7 days. * Gentle walking on level ground is allowed. * Returning to work will depend on the type of procedure and the results. Your doctor will discuss this with you. CALL YOUR DOCTOR FOR ANY OF THE FOLLOWING: *If bleeding from the puncture site occurs- Apply gentle pressure to site with clean cloth and call your doctor or EMS. * If a knot or lump forms under the skin, increases in size, or causes pain. * If bruising appears to be worsening or moving further down your leg instead of disappearing. * Temperature above 101 F. CARE OF YOUR GROIN INCISION; * Bruising or purple discoloration of the skin near the puncture site is common. * You may shower only, no bathtub bathing for 5 days. Be careful to avoid slipping as your leg may feel stiff. * If a closure device was used on your femoral artery, please see the attached guide regarding care of the device and your leg. * Leave dressing on FOR 24 hours. CARE OF YOUR WRIST INCISION; * Bruising or purple discoloration of the skin near the puncture site is common. * You may shower. * DO NOT submerge wrist. * Leave dressing on FOR 24 hours. Jose CHANDRA MD Nov 07, 2019 15:25
--- NOTE | 2019-11-07 15:28 | Cardiology Discharge Summary ---
Diagnosis/Chief Complaint Date of Admission 11/07/2019 Date of Discharge 11/07/2019 Admission Diagnosis Resting right foot discomfort, history of PAD. Final/Discharge Diagnosis Severe PAD. Bilateral in-stent SFA occlusions Chief Complaint/HPI Chief Complaint/HPI This is a 69-year-old gentleman with previous history of diabetes, chronic kidney disease, PAD with bilateral SFA stents. Presented to the office with resting right foot discomfort with significantly abnormal noninvasive evaluation. Peripheral angiogram and possible intervention was recommended. Discharge Summary Procedures Peripheral angiogram showed bilateral SFA occlusions. Right external iliac moderate to severe stenosis with a gradient of 50 mmHg. Unsuccessful intervention of the right SFA via contralateral approach. Discharge Physical Examination Unremarkable Hospital Course Was the Problem List Reviewed?: Yes Unremarkable. Pending Labs Laboratory Tests 11/07/19 12:24: White Blood Count 9.8, Red Blood Count 4.60, Hemoglobin 13.8, Hematocrit 41, Mean Corpuscular Volume 89, Mean Corpuscular Hemoglobin 30, Mean Corpuscular Hemoglobin Concent 34, Red Cell Distribution Width 14.5, Platelet Count 230, Mean Platelet Volume 9.6, Prothrombin Time 12.5, INR Comment 0.9, Activated Partial Thromboplast Time 28, Sodium Level 137, Potassium Level 4.7, Chloride Level 100, Carbon Dioxide Level 25, Anion Gap 12, Blood Urea Nitrogen 25, Creatinine 1.89, Estimat Glomerular Filtration Rate 35, BUN/Creatinine Ratio 13, Glucose Level 320, Calcium Level 9.4, Corrected Calcium 9.2, Total Bilirubin 0.6, Aspartate Amino Transf (AST/SGOT) 25, Alanine Aminotransferase (ALT/SGPT) 42, Alkaline Phosphatase 163, Total Protein 7.3, Albumin 4.2 Discussion & Recommendations Discussion Discussed with the patient. We will get a vascular surgery consultation for possible bypass from the distal abdominal aorta to the bilateral popliteal arteries. Patient will continue dual antiplatelet therapy and generous IV hydration. Follow up appt.: Dr. Chandra in 8 weeks. Dicharge Diet: Cardiac Diet Activity as Tolerated: Yes Home Medications Reviewed patient Home Medication Reconciliation performed by pharmacy medication reconciliations parking technician and/or nursing. Patients Allergies have been reviewed. Discharge Home Medications: Reviewed and agree with Discharge Medication list on patient's Discharge Instruction sheet Condition at discharge Stable. Instructions to patient/family We will arrange for surgical consultation at [facility]. Follow-up with Dr. Chandra in 8 weeks. Jose CHANDRA MD Nov 07, 2019 15:28
[2019-11-07] MEDS ORDERED: PATIENT MAY USE OWN MEDS, ALL PO SCH (15:30)
--- NOTE | 2019-11-07 16:25 | NUR ---
PT TRANSPORTED TO ICU3 VIA CART. PERSONAL ITEMS TRANSPORTED WITH PT. REPORT TO TAWANA PRABHAKAR. GROIN SITE CLEAN, DRY SOFT.
[2019-11-07] MEDS: NS IV 1000 ML 1,000 ML IV SCH ×2 (18:19→19:36)
--- NOTE | 2019-11-07 19:37 | NUR ---
SPOKE WITH DR GRAY. APPROVED TO GIVE LAST LITER OF FLUID BOLUS AND CONTINUE WITH PLAN TO DISCHARGE AT 1999.
[2019-11-08] MEDS ORDERED: CLOPIDOGREL 75 MG (PLAVIX) TABLET PO SCH (09:00)
[2019-11-08] MEDS ORDERED: ASPIRIN E.C. 81 MG (ECOTRIN) TAB PO SCH (09:00)
== END 2019-11-07 20:49 ==
LOC: CATH 11:53 → ICU 16:31 → CATH 20:49
PROVIDERS: ATTEND Internal Medicine Interventional Cardiology
DX: T82.858A Stenosis of other vascular prosthetic devices, implants and grafts, initial encounter (principal); I74.5 Embolism and thrombosis of iliac artery; I74.3 Embolism and thrombosis of arteries of the lower extremities; I77.1 Stricture of artery; I73.9 Peripheral vascular disease, unspecified; I13.0 Hypertensive heart and chronic kidney disease with heart failure and stage 1 through stage 4 chronic kidney disease, or unspecified chronic kidney disease; I50.42 Chronic combined systolic (congestive) and diastolic (congestive) heart failure; I25.10 Atherosclerotic heart disease of native coronary artery without angina pectoris; I25.5 Ischemic cardiomyopathy; E11.22 Type 2 diabetes mellitus with diabetic chronic kidney disease; J44.9 Chronic obstructive pulmonary disease, unspecified; N18.3 Chronic kidney disease, stage 3 (moderate); E78.5 Hyperlipidemia, unspecified; Z86.73 Personal history of transient ischemic attack (TIA), and cerebral infarction without residual deficits; Z79.4 Long term (current) use of insulin; Z79.899 Other long term (current) drug therapy; Z79.82 Long term (current) use of aspirin; Z87.891 Personal history of nicotine dependence; Z80.9 Family history of malignant neoplasm, unspecified
CPT/HCPCS: 36246; 36415; 75716; 80053; 85027; 85610; 85730; 87081

== ENCOUNTER 2020-01-27 20:57 | Inpatient (IN) | payer MEDICARE ==
[~2020-01-27] VITALS: Ht 172.7 cm; Wt 87.1 kg
[~2020-01-27 20:57] MED LIST changes: +ALPH1TAB8 PO; +GABA-488 PO; +GUAI400T85 PO; +INSU100V5 SQ; +IRON PO; +METF-865 PO; -METF500T19 PO; +MULT1TAB69 PO; +OXYM15MI4 NS
--- OUTSIDE RECORDS SUMMARY | 2020-01-27 21:07 | XMS REPORT ---
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 Track Name Role Phone RONDA STAHL Unavailable PROBLEMS Type Condition ICD9-CM Code GFI30-VQ Code Onset Dates Condition S tatus SNOMED Code Problem Other chronic pain G89.29 Active 8 4767460 Problem COPD exacerbation J44.1 Active 19 3582508 Problem Gastroesophageal reflux disease with esophagitis K 21.0 Active 814362746 Problem Panlobular emphysema J43.1 Active 3277589 Problem PVD (peripheral vascular disease) I73.9 Active 416994006 Problem PTSD (post-traumatic stress disorder) F43.10 Active 63585352 Problem Afib I48.91 Active 32940558 Problem Uncontrolled type 2 diabetes mellitus with hyperglycemia E11.65 Active 953493071 Problem Hypoglycemia E16.2 Active 8865628 03 Problem Recurrent major depressive disorder, in partial remission F33.41 Active 10885487 Problem Neuropathy of left foot G57.92 Active [id number] Problem Peripheral vascular disease, unspecified I73.9 Active 628634107 Problem Hypertensive heart disease with heart failure I11. 0 Active 10506063 Problem Hypertriglyceridemia E78.1 Active 899506523 Problem Type 2 diabetes mellitus with unspecified complications E11.8 Active 75003471 Problem Foot drop, right M21.371 Active 308 [id number] Problem Diabetes type 2, controlled E11.9 Ac tive 59541990 Problem Diabetes E11.9 Active 00022195 Problem Systolic congestive heart failure, unspecified HF chronici ty I50.20 Active 19576703 Problem Recurrent major depressive disorder, remission s tatus unspecified F33.9 Active 74086552 Problem Chronic obstructive pulmonary disease, unspecified COPD ty pe J44.9 Active 04655374 Problem Chronic kidney disease, stage 3 (moderate) N18.3 Active 047404752 ALLERGIES No Information ENCOUNTERS Encounter Location Date Diagnosis [facility] [address] [facility] [id number] [address] [place] [phone] Feb, [facility] [address] [facility] [id number] [address] [place] [address] Jan, [facility] [address] [facility] [id number] [address] [place] [address] Nov, PTSD (post-traumatic stress disorder) F43.10 [place] [address] [address] [place] [id number] [address] [place] [phone] Nov, Other chronic pain G89.29 [place] [address] [facility] [id number] [address] [place] [address] Oct, [place] [address] [facility] [id number] [address] [place] [address] Oct, Chronic obstructive pulmonar y disease, unspecified COPD type J44.9 ; Systolic congestive heart failure, unspecified HF chronicity I50.20 ; Recurrent major depressive disorder, remission status unspecified F33.9 ; Type 2 diabetes mellitus with unspecified complications E11.8 ; Peripheral vascular disease, unspecified I73.9 and Chronic kidney disease, stage 3 (moderate) N18.3 [place] [address] [facility] [id number] [address] [place] [phone] Sep, [facility] [address] [facility] [id number] [address] [place] [address] Sep, [place] [address] [facility] [id number] [address] [place] [address] Sep, [facility] [address] [facility] [id number] [address] [place] [address] Sep, PTSD (post-traumatic stress disorder) F43.10 [place] [address] [facility] [id number] [address] [place] [address] Aug, Other chronic pain G89.29 [facility] [address] [facility] [id number] [address] [place] [address] Jul, Uncontrolled type 2 diabetes mellitus with hyperglycemia E11.65 [facility] [address] [id number] [address] [place] [address] Jul, Other chronic pain G89.29 [facility] [address] [id number] [address] [place] [address] Jun, PTSD (post-traumatic stress disorder) F43.10 [facility] [address] [id number] [address] [place] [id number] Jun, PTSD (post-traumatic stress disorder) F43.10 [facility] [address] [id number] [address] [place] [address] Jun, [facility] [address] [id number] [address] [place] [address] Jun, Uncontrolled type 2 diabetes mellitus with hyperglycemia E11.65 [facility] [address] [facility] [id number] [address] [place] [phone] Jun, [facility] [address] [facility] [id number] [address] [place] [address] Jun, PVD (peripheral vascular dis ease) I73.9 [facility] [address] [facility] [id number] [address] [place] [phone] May, [facility] [address] [facility] [id number] [address] [place] [address] May, [facility] [address] [facility] [id number] [address] [place] [phone] May, Uncontrolled type 2 diabetes mellitus with hyperglycemia E11.65 ; Neuropathy of left foot G57.92 ; Encounter for immunization Z23 and Recurrent major depressive disorder, in partial remission F33.41 [facility] [address] [facility] [id number] [address] [place] [phone] May, [facility] [address] [facility] [id number] [address] [place] [address] May, [facility] [address] [facility] [id number] [address] [place] [phone] May, PTSD (post-traumatic stress disorder) F43.10 and Hypertriglyceridemia E78.1 [facility] [address] [id number] [address] [place] [phone] May, [facility] [id number] [place] [id number] May, [facility] [address] [id number] [address] [place] [phone] May, [facility] [address] [id number] [address] [place] [address] May, [facility] [address] [id number] [address] [place] [phone] Apr, [facility] [address] [id number] [address] [place] [phone] Apr, [facility] [address] [facility] [id number] [address] [place] [phone] Apr, [facility] [address] [id number] [address] [place] [address] Mar, Other chronic pain G89.29 [facility] [address] [facility] [id number] [address] [place] [address] Mar, PTSD (post-traumatic stress disorder) F43.10 [facility] [address] [facility] [id number] [address] [place] [id number] 15 Mar, 2019 Encounter for Medicare annua l wellness exam Z00.00 [facility] [address] [facility] [id number] [address] [place] [address] 08 Mar, 2019 Encounter for Medicare annua l wellness exam Z00.00 ; Uncontrolled type 2 diabetes mellitus with hyperglycemia E11.65 ; Hypertensive heart disease with heart failure I11.0 ; PVD (peripheral vascular disease) I73.9 ; Panlobular emphysema J43.1 ; Gastroesophageal reflux disease with esophagitis K21.0 ; Afib I48.91 and Hypertriglyceridemia E78.1 [facility] [address] [id number] [address] [place] [address] Mar, PTSD (post-traumatic stress disorder) F43.10 [facility] [address] [id number] [address] [place] [id number] Feb, [facility] [address] [id number] [address] [place] [id number] Feb, PTSD (post-traumatic stress disorder) F43.10 [facility] [address] [id number] [address] [place] [address] Feb, Hypoglycemia E16.2 [facility] [address] [id number] [address] [place] [id number] Feb, [facility] [address] [id number] [address] [place] [phone] Feb, Hypoglycemia E16.2 [facility] [address] [id number] [address] [place] [id number] Feb, [facility] [address] [id number] [address] [place] [phone] Feb, [facility] [address] [id number] [address] [place] [phone] Feb, [facility] [address] [facility] [id number] [address] [place] [phone] Feb, [facility] [address] [id number] [address] [place] [phone] Feb, Hypertensive heart disease w ith heart failure I11.0 [facility] [address] [id number] [address] [place] [id number] Jan, SOB (shortness of breath) on exertion R06.02 [facility] [address] [id number] [address] [place] [phone] December, SOB (shortness of breath) on exertion R06.02 [facility] [address] [id number] [address] [place] [phone] December, [facility] [address] [facility] [id number] [address] [place] [phone] December, [facility] [address] [facility] [id number] [address] [place] [id number] December, [facility] [address] [facility] [id number] [address] [place] [id number] December, [facility] [address] [facility] [id number] [address] [place] [phone] December, PTSD (post-traumatic stress disorder) F43.10 [facility] [address] [facility] [id number] [address] [place] [phone] Nov, Diabetes type 2, controlled E11.9 ; Hypertriglyceridemia E78.1 ; COPD exacerbation J44.1 ; PTSD (post-traumatic stress disorder) F43.10 ; Other chronic pain G89.29 ; Gastroesophageal reflux disease with esophagitis K21.0 ; PVD (peripheral vascular disease) I73.9 and Hypertensive heart disease with heart failure I11.0 [facility] [address] [facility] [id number] [address] [place] [id number] Oct, PTSD (post-traumatic stress disorder) F43.10 [facility] [address] [facility] [id number] [address] [place] [phone] Sep, Diabetes type 2, controlled E11.9 and PTSD (post-traumatic stress disorder) F43.10 [facility] [address] [facility] [id number] [address] [place] [id number] Sep, [facility] [address] [facility] [id number] [address] [place] [id number] Sep, PTSD (post-traumatic stress disorder) F43.10 [facility] [address] [facility] [id number] [address] [place] [id number] Sep, [facility] [address] [facility] [id number] [address] [place] [id number] Aug, COPD exacerbation J44.1 ; Di fficulty breathing R06.89 ; History of GI bleed Z87.19 ; PVD (peripheral vascular disease) I73.9 and Uncontrolled type 2 diabetes mellitus with hyperglycemia E11.65 [place] [id number] [id number] [address] [place] [phone] Aug, [place] [address] [id number] [address] [place] [id number] Aug, PTSD (post-traumatic stress disorder) F43.10 and Type 2 diabetes mellitus without complication, without long-term current use of insulin E11.9 [facility] [address] [place] [id number] Aug, History of GI bleed Z87.19 ; COPD exacer bation J44.1 and PVD (peripheral vascular disease) I73.9 [place] [address] [facility] [id number] [address] [place] [address] Aug, [facility] [address] [place] [id number] Aug, Diabetes E11.9 ; Other chronic pain G89. 29 and Panlobular emphysema J43.1 [place] [address] [facility] [id number] [address] [place] [id number] Jul, [place] [address] [facility] [id number] [address] [place] [phone] Jun, PTSD (post-traumatic stress disorder) F43.10 [place] [address] [id number] [address] [place] [phone] 14 Jun, 2018 [place] [address] [id number] [address] [place] [address] Jun, PTSD (post-traumatic stress disorder) F43.10 [place] [address] [facility] [id number] [address] [place] [phone] Jun, [place] [address] [facility] [id number] [address] [place] [phone] Jun, [place] [address] [address] Jun, Uncontrolled type 2 diabetes mellitus without complication, without long-term current use of insulin E11.65 [place] [address] [phone] Jun, PTSD (post-traumatic stress disorder) F43.10 ; Low back pain M54.5 ; Other chronic pain G89.29 ; Gastroesophageal reflux disease with esophagitis K21.0 and Panlobular emphysema J43.1 [place] [address] [address] Jun, [place] [address] [address] Jun, Other chest pain R07.89 ; Ta chycardia R00.0 and Murmur, cardiac R01.1 [place] [address] [address] May, Other chest pain R07.89 ; Ta chycardia R00.0 and Murmur, cardiac R01.1 [facility] [place] [address] [address] May, [place] [address] [address] May, Uncontrolled type 2 diabetes mellitus with hyperglycemia E11.65 and Oral candidiasis B37.0 [place] [address] [id number] May, COPD exacerbation J44.1 [place] [address] [address] May, COPD exacerbation J44.1 [facility] [place] [address] [address] May, COPD exacerbation J44.1 and Type 2 diabetes mellitus without complication, without long-term current use of insulin E11.9 [facility] [address] [facility] [id number] [address] [place] [phone] May, Difficulty breathing R06.89 and Acute bronchitis, unspecified organism J20.9 [facility] [address] [facility] [id number] [address] [place] [id number] Apr, Uncontrolled type 2 diabetes mellitus without complication, without long-term current use of insulin E11.65 [facility] [address] [facility] [id number] [address] [place] [phone] Feb, [facility] [address] [facility] [id number] [address] [place] [id number] Feb, [facility] [address] [facility] [id number] [address] [place] [phone] Feb, [facility] [address] [facility] [id number] [address] [place] [id number] Jan, [facility] [address] [facility] [id number] [address] [place] [id number] Oct, [facility] [address] [facility] [id number] [address] [place] [address] Jul, Diabetes type 2, controlled E11.9 [facility] [address] [facility] [id number] [address] [place] [address] Jun, [facility] [address] [facility] [id number] [address] [place] [id number] May, [facility] [address] [facility] [id number] [address] [place] [id number] May, Diabetes type 2, controlled E11.9 and Hypertriglyceridemia E78.1 [facility] [address] [place] [id number] [address] [place] [address] May, [facility] [address] [facility] [id number] [address] [place] [address] Apr, Hypertriglyceridemia 272.1 ; Influenza vaccine administered V04.81 and Diabetes 250.00 [facility] [address] [id number] [address] [place] [address] Mar, DM type 2 (diabetes mellitus , type 2) 250.00 ; Essential hypertension, benign 401.1 and Mood disorder 296.90 [facility] [address] [id number] [address] [place] [id number] Jan, [facility] [address] [id number] [address] [place] [address], [place] [address] Nov, [facility] [address] [id number] [address] [place] [id number] Nov, [facility] [address] [id number] [address] [place] [address], [place] [address] Sep, [facility] [address] [id number] [address] [place] [address], [place] [address] Sep, [facility] [address] [id number] [address] [place] [id number] Sep, [facility] [address] [id number] [address] [place] [address], [place] [address] Sep, [facility] [address] [id number] [address] [place] [address], [place] [address] May, [facility] [address] [id number] [address] [place] [phone] May, [facility] [address] [id number] [address] [place] [address], [place] [address] Apr, [facility] [address] [id number] [address] [place] [phone] Apr, [facility] [address] [id number] [address] [place] [phone] Mar, [facility] [address] [id number] [address] [place] [phone] Mar, [facility] [address] [id number] [address] [place] [phone] Mar, [facility] [address] [id number] [address] [place] [address], [place] [address] Mar, [facility] [address] [id number] [address] [place] [address], [place] [address] Jan, [facility] [address] [id number] [address] [place] [address], [place] [address] Jan, [facility] [address] [id number] [address] [place] [address], [place] [address] Jan, [facility] [address] [id number] [address] [place] [address], [place] [address] Jan, [facility] [address] [id number] [address] [place] [address], [place] [address] Jan, [facility] [address] [id number] [address] [place] [address], [place] [address] Jan, [facility] [address] [id number] [address] [place] [address], [place] [address] Oct, [facility] [address] [id number] [address] [place] [address], [place] [address] Oct, [facility] [address] [id number] [address] [place] [address], [place] [address] Sep, [facility] [address] [id number] [address] [place] [address], [place] [address] Sep, [facility] [address] [id number] [address] [place] [address], [place] [address] Jun, [facility] [address] [id number] [address] [place] [address], [place] [address] Jun, [facility] [address] [id number] [address] [place] [address], [place] [address] Mar, [facility] [address] [id number] [address] [place] [address], [place] [address] Feb, [facility] [address] [id number] [address] [place] [address], [place] [address] Feb, [facility] [address] [id number] [address] [place] [address], [place] [address] Nov, [facility] [address] [id number] [address] [place] [address], [place] [address] Aug, [facility] [address] [id number] [address] [place] [address], [place] [address] Aug, [facility] [address] [id number] [address] [place] [address], [place] [address] Jul, [facility] [address] [id number] [address] [place] [address], [place] [address] Jul, [facility] [address] [id number] [address] [place] [address], [place] [address] May, [facility] [address] [id number] [address] [place] [address], [place] [address] May, [facility] [address] [id number] [address] [place] [address], [place] [address] May, [facility] [address] [id number] [address] [place] [address], [place] [address] May, [facility] [address] [id number] [address] [place] [address], [place] [address] Apr, [facility] [address] [id number] [address] [place] [address], [place] [address] Feb, [facility] [address] [id number] [address] [place] [address], [place] [address] Feb, [facility] [address] [id number] [address] [place] [address], [place] [address] Jan, [facility] [address] [id number] [address] [place] [address], [place] [id number] Jan, [facility] [address] [id number] [address] [place] [address], [place] [id number] Nov, [facility] [address] [id number] [address] [place] [id number] Oct, [facility] [address] [id number] [address] [place] [id number] Oct, [facility] [address] [id number] [address] [place] [id number] Jul, [facility] [address] [facility] [id number] [address] [place] [phone] May, [facility] [address] [id number] [address] [place] [id number] Nov, [facility] [address] [facility] [id number] [address] [place] [phone] Jun, [facility] [address] [facility] [id number] [address] [place] [id number] December, [facility] [address] [facility] [id number] [address] [place] [phone] Jul, IMMUNIZATIONS No Known Immunizations SOCIAL HISTORY Never Assessed REASON FOR VISIT PLAN OF CARE VITAL SIGNS MEDICATIONS Unknown Medications RESULTS No Results PROCEDURES Procedure Date Ordered Result Body Site COMPLETE CBC W/AUTO DIFF WBC February 23, 2012 MICROALBUMIN, SEMIQUANT February 23, 2012 LIPID PANEL February 23, 2012 COMPREHEN METABOLIC PANEL February 23, 2012 VENIPUNCT, ROUTINE* February 23, 2012 INSTRUCTIONS MEDICATIONS ADMINISTERED No Known Medications MEDICAL [...]
--- OUTSIDE RECORDS SUMMARY | 2020-01-27 21:07 | XMS REPORT ---
Author Author Salomon STAHL Organization [facility] Address [address] [place] [address] Care Team Providers [employer] Lab[employer] Name Role Phone RONDA STAHL Unavailable PROBLEMS Type Condition ICD9-CM Code VSZ54-HG Code Onset Dates Condition S tatus SNOMED Code Problem Other chronic pain G89.29 Active 8 4059116 Problem COPD exacerbation J44.1 Active 19 3747609 Problem Gastroesophageal reflux disease with esophagitis K 21.0 Active 062392427 Problem Panlobular emphysema J43.1 Active 0711608 Problem PVD (peripheral vascular disease) I73.9 Active 395699652 Problem PTSD (post-traumatic stress disorder) F43.10 Active 25590986 Problem Afib I48.91 Active 73148989 Problem Uncontrolled type 2 diabetes mellitus with hyperglycemia E11.65 Active 706011446 Problem Hypoglycemia E16.2 Active 9455476 03 Problem Recurrent major depressive disorder, in partial remission F33.41 Active 89907294 Problem Neuropathy of left foot G57.92 Active [id number] Problem Peripheral vascular disease, unspecified I73.9 Active 320304453 Problem Hypertensive heart disease with heart failure I11. 0 Active 38346142 Problem Hypertriglyceridemia E78.1 Active 645133337 Problem Type 2 diabetes mellitus with unspecified complications E11.8 Active 27588240 Problem Foot drop, right M21.371 Active 308 [id number] Problem Diabetes type 2, controlled E11.9 Ac tive 16090064 Problem Diabetes E11.9 Active 23443750 Problem Systolic congestive heart failure, unspecified HF chronici ty I50.20 Active 54276189 Problem Recurrent major depressive disorder, remission s tatus unspecified F33.9 Active 84504888 Problem Chronic obstructive pulmonary disease, unspecified COPD ty pe J44.9 Active 25324112 Problem Chronic kidney disease, stage 3 (moderate) N18.3 Active 801333805 ALLERGIES No Information ENCOUNTERS Encounter Location Date Diagnosis [facility] [address] [facility] [id number] [address] [place] [address] Feb, [facility] [address] [facility] [id number] [address] [place] [address] Jan, [place] [address] [place] [id number] [address] [place] [address] Nov, Other chronic pain G89.29 [place] [address] [place] [id number] [address] [place] [address] Oct, [place] [address] [place] [id number] [place] [address] Oct, Chronic obstructive pulmonar y disease, unspecified COPD type J44.9 ; Systolic congestive heart failure, unspecified HF chronicity I50.20 ; Recurrent major depressive disorder, remission status unspecified F33.9 ; Type 2 diabetes mellitus with unspecified complications E11.8 ; Peripheral vascular disease, unspecified I73.9 and Chronic kidney disease, stage 3 (moderate) N18.3 [place] [address] [place] [id number] [address] [place] [address] Sep, [place] [address] [place] [id number] [address] [place] [address] Sep, [place] [address] [place] [id number] [address] [place] [address] Sep, [place] [id number] [place] [address] Sep, PTSD (post-traumatic stress disorder) F43.10 [place] [address] [place] [id number] [address] [place] [address] Aug, Other chronic pain G89.29 [place] [address] [place] [id number] [address] [place] [address] Jul, Uncontrolled type 2 diabetes mellitus with hyperglycemia E11.65 [place] [address] [place] [id number] [address] [place] [address] Jul, Other chronic pain G89.29 [place] [address] [facility] [id number] [address] [place] [address] Jun, PTSD (post-traumatic stress disorder) F43.10 [facility] [address] [facility] [id number] [address] [place] [address] Jun, PTSD (post-traumatic stress disorder) F43.10 [place] [address] [facility] [id number] [address] [place] [address] Jun, [facility] [address] [facility] [id number] [address] [place] [address] Jun, Uncontrolled type 2 diabetes mellitus with hyperglycemia E11.65 [place] [address] [facility] [id number] [address] [place] [address] Jun, [place] [address] [facility] [id number] [address] [place] [address] Jun, PVD (peripheral vascular dis ease) I73.9 [place] [address] [facility] [id number] [address] [place] [address] May, [place] [address] [facility] [id number] [address] [place] [address] May, [place] [address] [facility] [id number] [address] [place] [address] May, Uncontrolled type 2 diabetes mellitus with hyperglycemia E11.65 ; Neuropathy of left foot G57.92 ; Encounter for immunization Z23 and Recurrent major depressive disorder, in partial remission F33.41 [facility] [address] [facility] [id number] [address] [place] [address] May, [facility] [address] [facility] [id number] [address] [place] [address] May, [place] [address] [facility] [id number] [address] [place] [address] May, PTSD (post-traumatic stress disorder) F43.10 and Hypertriglyceridemia E78.1 [place] [address] [facility] [id number] [address] [place] [address] May, [facility] [address] [place] [id number] [place] [id number] May, [facility] [address] [id number] [address] [place] [address] May, [facility] [address] [id number] [address] [place] [address] May, [facility] [address] [id number] [address] [place] [address] Apr, [facility] [address] [id number] [address] [place] [address] Apr, [facility] [address] [facility] [id number] [address] [place] [address] Apr, [facility] [address] [facility] [id number] [address] [place] [address] Mar, Other chronic pain G89.29 [facility] [address] [id number] [address] [place] [address] Mar, PTSD (post-traumatic stress disorder) F43.10 [facility] [address] [facility] [id number] [address] [place] [address] 15 Mar, 2019 Encounter for Medicare annua l wellness exam Z00.00 [facility] [address] [facility] [id number] [address] [place] [address] 08 Mar, 2019 Encounter for Medicare annua l wellness exam Z00.00 ; Uncontrolled type 2 diabetes mellitus with hyperglycemia E11.65 ; Hypertensive heart disease with heart failure I11.0 ; PVD (peripheral vascular disease) I73.9 ; Panlobular emphysema J43.1 ; Gastroesophageal reflux disease with esophagitis K21.0 ; Afib I48.91 and Hypertriglyceridemia E78.1 [facility] [address] [facility] [id number] [address] [place] [address] Mar, PTSD (post-traumatic stress disorder) F43.10 [facility] [address] [id number] [address] [place] [address] Feb, [facility] [address] [id number] [address] [place] [address] Feb, PTSD (post-traumatic stress disorder) F43.10 [facility] [address] [id number] [address] [place] [address] Feb, Hypoglycemia E16.2 [facility] [address] [id number] [address] [place] [address] Feb, [facility] [address] [id number] [address] [place] [address] Feb, Hypoglycemia E16.2 [facility] [address] [id number] [address] [place] [address] Feb, [facility] [address] [id number] [address] [place] [address] Feb, [facility] [address] [id number] [address] [place] [address] Feb, [facility] [address] [id number] [address] [place] [address] Feb, [facility] [address] [id number] [address] [place] [address] Feb, Hypertensive heart disease w ith heart failure I11.0 [facility] [address] [id number] [address] [place] [address] Jan, SOB (shortness of breath) on exertion R06.02 [facility] [address] [id number] [address] [place] [address] December, SOB (shortness of breath) on exertion R06.02 [facility] [address] [id number] [address] [place] [address] December, [facility] [address] [id number] [address] [place] [address] December, [place] [address] [place] [id number] [address] [place] [address] December, [place] [address] [place] [id number] [place] [address] December, [place] [address] [place] [id number] [place] [address] December, PTSD (post-traumatic stress disorder) F43.10 [place] [address] [address] Nov, Diabetes type 2, controlled E11.9 ; Hypertriglyceridemia E78.1 ; COPD exacerbation J44.1 ; PTSD (post-traumatic stress disorder) F43.10 ; Other chronic pain G89.29 ; Gastroesophageal reflux disease with esophagitis K21.0 ; PVD (peripheral vascular disease) I73.9 and Hypertensive heart disease with heart failure I11.0 [place] [address] [address] Oct, PTSD (post-traumatic stress disorder) F43.10 [place] [address] [place] [id number] [address] [place] [address] Sep, Diabetes type 2, controlled E11.9 and PTSD (post-traumatic stress disorder) F43.10 [place] [address] [place] [id number] [address] [place] [address] Sep, [place] [address] [place] [id number] [address] [place] [address] Sep, PTSD (post-traumatic stress disorder) F43.10 [place] [address] [place] [id number] [address] [place] [address] Sep, [place] [address] [place] [id number] [address] [place] [address] Aug, COPD exacerbation J44.1 ; Di fficulty breathing R06.89 ; History of GI bleed Z87.19 ; PVD (peripheral vascular disease) I73.9 and Uncontrolled type 2 diabetes mellitus with hyperglycemia E11.65 [facility] [address] [id number] [address] [place] [address] 11 Aug, 2018 [facility] [address] [id number] [address] [place] [address] Aug, PTSD (post-traumatic stress disorder) F43.10 and Type 2 diabetes mellitus without complication, without long-term current use of insulin E11.9 [facility] [address] [place] [id number] Aug, History of GI bleed Z87.19 ; COPD exacer bation J44.1 and PVD (peripheral vascular disease) I73.9 [place] [address] [facility] [id number] [address] [place] [address] Aug, [facility] [address] [place] [id number] Aug, Diabetes E11.9 ; Other chronic pain G89. 29 and Panlobular emphysema J43.1 [place] [address] [facility] [id number] [address] [place] [address] Jul, [place] [address] [facility] [id number] [address] [place] [address] Jun, PTSD (post-traumatic stress disorder) F43.10 [place] [address] [facility] [id number] [address] [place] [address] 14 Jun, 2018 [place] [address] [facility] [id number] [address] [place] [address] Jun, PTSD (post-traumatic stress disorder) F43.10 [place] [id number] [id number] [address] [place] [address] Jun, [place] [address] [facility] [id number] [address] [place] [address] Jun, [place] [address] [facility] [id number] [address] [place] [address] Jun, Uncontrolled type 2 diabetes mellitus without complication, without long-term current use of insulin E11.65 [place] [address] [place] [id number] [address] [place] [address] 07 Jun, 2018 PTSD (post-traumatic stress disorder) F43.10 ; Low back pain M54.5 ; Other chronic pain G89.29 ; Gastroesophageal reflux disease with esophagitis K21.0 and Panlobular emphysema J43.1 [place] [address] [address] 05 Jun, 2018 [place] [address] [place] [id number] [place] [address] Jun, Other chest pain R07.89 ; Ta chycardia R00.0 and Murmur, cardiac R01.1 [place] [address] [address] 31 May, 2018 Other chest pain R07.89 ; Ta chycardia R00.0 and Murmur, cardiac R01.[address] [facility] [address] [address] May, [place] [address] [address] May, Uncontrolled type 2 diabetes mellitus with hyperglycemia E11.65 and Oral candidiasis B37.0 [place] [address] [address] May, COPD exacerbation J44.1 [place] [address] [place] [id number] [place] [address] May, COPD exacerbation J44.[address] [facility] [address] [place] [id number] [place] [address] May, COPD exacerbation J44.1 and Type 2 diabetes mellitus without complication, without long-term current use of insulin E11.[address] [facility] [address] [place] [id number] [address] [place] [address] May, Difficulty breathing R06.89 and Acute bronchitis, unspecified organism J20.9 [facility] [address] [facility] [id number] [address] [place] [address] Apr, Uncontrolled type 2 diabetes mellitus without complication, without long-term current use of insulin E11.65 [facility] [address] [facility] [id number] [address] [place] [address] Feb, [facility] [address] [facility] [id number] [address] [place] [address] Feb, [facility] [address] [facility] [id number] [address] [place] [address] Feb, [facility] [address] [facility] [id number] [address] [place] [address] Jan, [facility] [address] [facility] [id number] [address] [place] [address] Oct, [facility] [address] [facility] [id number] [address] [place] [address] Jul, Diabetes type 2, controlled E11.9 [facility] [address] [facility] [id number] [address] [place] [address] Jun, [facility] [address] [facility] [id number] [address] [place] [address] May, [facility] [address] [facility] [id number] [address] [place] [address] May, Diabetes type 2, controlled E11.9 and Hypertriglyceridemia E78.1 [facility] [address] [facility] [id number] [address] [place] [address] May, [facility] [address] [facility] [id number] [address] [place] [address] Apr, Hypertriglyceridemia 272.1 ; Influenza vaccine administered V04.81 and Diabetes 250.00 [facility] [address] [facility] [id number] [address] [place] [address] Mar, DM type 2 (diabetes mellitus , type 2) 250.00 ; Essential hypertension, benign 401.1 and Mood disorder 296.90 [facility] [address] [id number] [address] [place] [address], [place] [address] Jan, [facility] [address] [id number] [address] [place] [address], [place] [address] 14 Nov, 2014 [facility] [address] [id number] [address] [place] [address], [place] [address] Nov, [facility] [address] [id number] [address] [place] [address], [place] [address] 16 Sep, 2014 [facility] [address] [id number] [address] [place] [address], [place] [address] Sep, [facility] [address] [id number] [address] [place] [address], [place] [address] Sep, [facility] [address] [id number] [address] [place] [address], [place] [address] Sep, [facility] [address] [id number] [address] [place] [address], [place] [address] May, [facility] [address] [id number] [address] [place] [address], [place] [address] May, [facility] [address] [id number] [address] [place] [address], [place] [address] Apr, [facility] [address] [id number] [address] [place] [address], [place] [address] Apr, [facility] [address] [id number] [address] [place] [address] Mar, [facility] [address] [id number] [address] [place] [address], [place] [address] Mar, [facility] [address] [id number] [address] [place] [address], [place] [address] Mar, [facility] [address] [id number] [address] [place] [address], [place] [address] Mar, [facility] [address] [id number] [address] [place] [address], [place] [address] Jan, [facility] [address] [id number] [address] [place] [address], [place] [address] Jan, [facility] [address] [id number] [address] [place] [address], [place] [address] Jan, [facility] [address] [id number] [address] [place] [address], [place] [address] Jan, [facility] [address] [id number] [address] [place] [address], [place] [address] Jan, [facility] [address] [id number] [address] [place] [address], [place] [address] Jan, [facility] [address] [id number] [address] [place] [address], [place] [address] Oct, [facility] [address] [id number] [address] [place] [address], [place] [address] Oct, [facility] [address] [id number] [address] [place] [address], [place] [address] Sep, [facility] [address] [id number] [address] [place] [address], [place] [address] Sep, [facility] [address] [id number] [address] [place] [address], [place] [address] Jun, [facility] [address] [id number] [address] [place] [address], [place] [address] Jun, [facility] [address] [id number] [address] [place] [address], [place] [address] Mar, [facility] [address] [id number] [address] [place] [address], [place] [address] Feb, [facility] [address] [id number] [address] [place] [address], [place] [address] Feb, [facility] [address] [id number] [address] [place] [address], [place] [address] Nov, [facility] [address] [id number] [address] [place] [address], [place] [address] Aug, [facility] [address] [id number] [address] [place] [address], [place] [address] Aug, [facility] [address] [id number] [address] [place] [address], [place] [address] Jul, [facility] [address] [id number] [address] [place] [address], [place] [address] Jul, [facility] [address] [id number] [address] [place] [address], [place] [address] May, [facility] [address] [id number] [address] [place] [address], [place] [address] May, [facility] [address] [id number] [address] [place] [address], [place] [address] May, [facility] [address] [id number] [address] [place] [address], [place] [address] May, [facility] [address] [id number] [address] [place] [address], [place] [address] Apr, [facility] [address] [id number] [address] [place] [address], [place] [id number] Feb, [facility] [address] [id number] [address] [place] [address], [place] [address] Feb, [facility] [address] [id number] [address] [place] [address], [place] [id number] Jan, [facility] [address] [id number] [address] [place] [address], [place] [address] Jan, [facility] [address] [id number] [address] [place] [address], [place] [address] Nov, [facility] [address] [id number] [address] [place] [address], [place] [address] Oct, [facility] [address] [id number] [address] [place] [id number] Oct, [facility] [address] [facility] [id number] [address] [place] [id number] Jul, [facility] [address] [facility] [id number] [address] [place] [id number] May, [facility] [address] [facility] [id number] [address] [place] [phone] Nov, [facility] [address] [facility] [id number] [address] [place] [phone] Jun, [facility] [address] [facility] [id number] [address] [place] [phone] December, [facility] [address] [facility] [id number] [address] [place] [phone] Jul, IMMUNIZATIONS No Known Immunizations SOCIAL HISTORY [...]
--- OUTSIDE RECORDS SUMMARY | 2020-01-27 21:07 | XMS REPORT ---
Author Author Salomon STAHL Organization [facility] Address [address] [place] [address] Care Team Providers Care Digital Experience Manager Name Role Phone RONDA STAHL Unavailable PROBLEMS Type Condition ICD9-CM Code CPU83-MK Code Onset Dates Condition S tatus SNOMED Code Problem Other chronic pain G89.29 Active 8 1814923 Problem COPD exacerbation J44.1 Active 19 9273197 Problem Gastroesophageal reflux disease with esophagitis K 21.0 Active 091458216 Problem Panlobular emphysema J43.1 Active 8123355 Problem PVD (peripheral vascular disease) I73.9 Active 090490564 Problem PTSD (post-traumatic stress disorder) F43.10 Active 39298542 Problem Afib I48.91 Active 75431171 Problem Uncontrolled type 2 diabetes mellitus with hyperglycemia E11.65 Active 566523441 Problem Hypoglycemia E16.2 Active 5879641 03 Problem Recurrent major depressive disorder, in partial remission F33.41 Active 86212038 Problem Neuropathy of left foot G57.92 Active [id number] Problem Peripheral vascular disease, unspecified I73.9 Active 426737874 Problem Hypertensive heart disease with heart failure I11. 0 Active 96013035 Problem Hypertriglyceridemia E78.1 Active 158237716 Problem Type 2 diabetes mellitus with unspecified complications E11.8 Active 38286383 Problem Foot drop, right M21.371 Active 308 478767408938 Problem Diabetes type 2, controlled E11.9 Ac tive 48022256 Problem Diabetes E11.9 Active 48521315 Problem Systolic congestive heart failure, unspecified HF chronici ty I50.20 Active 06924546 Problem Recurrent major depressive disorder, remission s tatus unspecified F33.9 Active 40577050 Problem Chronic obstructive pulmonary disease, unspecified COPD ty pe J44.9 Active 52549093 Problem Chronic kidney disease, stage 3 (moderate) N18.3 Active 881787159 ALLERGIES No Information ENCOUNTERS Encounter Location Date Diagnosis [facility] [address] [facility] [id number] [address] [place] [address] Feb, [facility] [address] [facility] [id number] [address] [place] [address] Jan, [facility] [address] [facility] [id number] [address] [place] [address] Nov, PTSD (post-traumatic stress disorder) F43.10 [place] [address] [place] [id number] [address] [place] [address] Nov, Other chronic pain G89.29 [place] [address] [facility] [id number] [address] [place] [address] Oct, [place] [address] [facility] [id number] [address] [place] [address] Oct, Chronic obstructive pulmonar y disease, unspecified COPD type J44.9 ; Systolic congestive heart failure, unspecified HF chronicity I50.20 ; Recurrent major depressive disorder, remission status unspecified F33.9 ; Type 2 diabetes mellitus with unspecified complications E11.8 ; Peripheral vascular disease, unspecified I73.9 and Chronic kidney disease, stage 3 (moderate) N18.3 [place] [address] [facility] [id number] [address] [place] [address] Sep, [facility] [address] [facility] [id number] [address] [place] [address] Sep, [place] [address] [facility] [id number] [address] [place] [address] Sep, [facility] [address] [facility] [id number] [address] [place] [address] Sep, PTSD (post-traumatic stress disorder) F43.10 [place] [address] [facility] [id number] [address] [place] [address] Aug, Other chronic pain G89.29 [facility] [address] [facility] [id number] [address] [place] [address] Jul, Uncontrolled type 2 diabetes mellitus with hyperglycemia E11.65 [facility] [address] [id number] [address] [place] [address] Jul, Other chronic pain G89.29 [facility] [address] [id number] [address] [place] [address] Jun, PTSD (post-traumatic stress disorder) F43.10 [facility] [address] [id number] [address] [place] [address] Jun, PTSD (post-traumatic stress disorder) F43.10 [facility] [address] [id number] [address] [place] [address] Jun, [facility] [address] [id number] [address] [place] [address] Jun, Uncontrolled type 2 diabetes mellitus with hyperglycemia E11.65 [facility] [address] [facility] [id number] [address] [place] [address] Jun, [facility] [address] [facility] [id number] [address] [place] [address] Jun, PVD (peripheral vascular dis ease) I73.9 [facility] [address] [facility] [id number] [address] [place] [address] May, [facility] [address] [facility] [id number] [address] [place] [address] May, [facility] [address] [facility] [id number] [address] [place] [address] May, Uncontrolled type 2 diabetes mellitus with hyperglycemia E11.65 ; Neuropathy of left foot G57.92 ; Encounter for immunization Z23 and Recurrent major depressive disorder, in partial remission F33.41 [facility] [address] [facility] [id number] [address] [place] [address] May, [facility] [address] [facility] [id number] [address] [place] [address] May, [facility] [address] [facility] [id number] [address] [place] [address] May, PTSD (post-traumatic stress disorder) F43.10 and Hypertriglyceridemia E78.1 [facility] [address] [id number] [address] [place] [address] May, [facility] [address] [place] [id number] [place] [id number] May, [facility] [address] [id number] [address] [place] [address] May, [facility] [address] [id number] [address] [place] [address] May, [facility] [address] [id number] [address] [place] [address] Apr, [facility] [address] [id number] [address] [place] [address] Apr, [facility] [address] [facility] [id number] [address] [place] [address] Apr, [facility] [address] [id number] [address] [place] [address] Mar, Other chronic pain G89.29 [facility] [address] [facility] [id number] [address] [place] [address] Mar, PTSD (post-traumatic stress disorder) F43.10 [facility] [address] [facility] [id number] [address] [place] [address] 15 Mar, 2019 Encounter for Medicare annua l wellness exam Z00.00 [facility] [address] [facility] [id number] [address] [place] [address] 08 Mar, 2019 Encounter for Medicare annua l wellness exam Z00.00 ; Uncontrolled type 2 diabetes mellitus with hyperglycemia E11.65 ; Hypertensive heart disease with heart failure I11.0 ; PVD (peripheral vascular disease) I73.9 ; Panlobular emphysema J43.1 ; Gastroesophageal reflux disease with esophagitis K21.0 ; Afib I48.91 and Hypertriglyceridemia E78.1 [facility] [address] [id number] [address] [place] [address] Mar, PTSD (post-traumatic stress disorder) F43.10 [facility] [address] [id number] [address] [place] [address] Feb, [facility] [address] [id number] [address] [place] [address] Feb, PTSD (post-traumatic stress disorder) F43.10 [facility] [address] [id number] [address] [place] [address] Feb, Hypoglycemia E16.2 [facility] [address] [id number] [address] [place] [address] Feb, [facility] [address] [id number] [address] [place] [address] Feb, Hypoglycemia E16.2 [facility] [address] [id number] [address] [place] [address] Feb, [facility] [address] [id number] [address] [place] [address] Feb, [facility] [address] [id number] [address] [place] [address] Feb, [facility] [address] [facility] [id number] [address] [place] [address] Feb, [facility] [address] [id number] [address] [place] [address] Feb, Hypertensive heart disease w ith heart failure I11.0 [facility] [address] [id number] [address] [place] [address] Jan, SOB (shortness of breath) on exertion R06.02 [facility] [address] [id number] [address] [place] [address] December, SOB (shortness of breath) on exertion R06.02 [facility] [address] [id number] [address] [place] [address] December, [facility] [address] [facility] [id number] [address] [place] [address] December, [facility] [address] [facility] [id number] [address] [place] [address] December, [facility] [address] [facility] [id number] [address] [place] [address] December, [facility] [address] [facility] [id number] [address] [place] [address] December, PTSD (post-traumatic stress disorder) F43.10 [facility] [address] [facility] [id number] [address] [place] [address] Nov, Diabetes type 2, controlled E11.9 ; Hypertriglyceridemia E78.1 ; COPD exacerbation J44.1 ; PTSD (post-traumatic stress disorder) F43.10 ; Other chronic pain G89.29 ; Gastroesophageal reflux disease with esophagitis K21.0 ; PVD (peripheral vascular disease) I73.9 and Hypertensive heart disease with heart failure I11.0 [facility] [address] [facility] [id number] [address] [place] [address] Oct, PTSD (post-traumatic stress disorder) F43.10 [facility] [address] [facility] [id number] [address] [place] [address] Sep, Diabetes type 2, controlled E11.9 and PTSD (post-traumatic stress disorder) F43.10 [facility] [address] [facility] [id number] [address] [place] [address] Sep, [facility] [address] [facility] [id number] [address] [place] [address] Sep, PTSD (post-traumatic stress disorder) F43.10 [facility] [address] [facility] [id number] [address] [place] [address] Sep, [facility] [address] [facility] [id number] [address] [place] [address] Aug, COPD exacerbation J44.1 ; Di fficulty breathing R06.89 ; History of GI bleed Z87.19 ; PVD (peripheral vascular disease) I73.9 and Uncontrolled type 2 diabetes mellitus with hyperglycemia E11.65 [place] [address] [id number] [address] [place] [address] Aug, [place] [address] [id number] [address] [place] [address] Aug, PTSD (post-traumatic stress disorder) F43.10 and Type 2 diabetes mellitus without complication, without long-term current use of insulin E11.9 [facility] [employer] [address] [place] [id number] Aug, History of GI bleed Z87.19 ; COPD exacer bation J44.1 and PVD (peripheral vascular disease) I73.9 [place] [address] [facility] [id number] [address] [place] [address] Aug, [facility] [employer] [address] [place] [id number] Aug, Diabetes E11.9 ; Other chronic pain G89. 29 and Panlobular emphysema J43.1 [place] [address] [facility] [id number] [address] [place] [address] Jul, [place] [address] [facility] [id number] [address] [place] [address] Jun, PTSD (post-traumatic stress disorder) F43.10 [place] [address] [id number] [address] [place] [address] 14 Jun, 2018 [place] [address] [id number] [address] [place] [address] Jun, PTSD (post-traumatic stress disorder) F43.10 [place] [address] [facility] [id number] [address] [place] [address] Jun, [place] [address] [facility] [id number] [address] [place] [address] Jun, [place] [address] [address] Jun, Uncontrolled type 2 diabetes mellitus without complication, without long-term current use of insulin E11.65 [place] [address] [address] Jun, PTSD (post-traumatic stress disorder) F43.10 ; Low back pain M54.5 ; Other chronic pain G89.29 ; Gastroesophageal reflux disease with esophagitis K21.0 and Panlobular emphysema J43.1 [place] [address] [address] Jun, [place] [address] [address] Jun, Other chest pain R07.89 ; Ta chycardia R00.0 and Murmur, cardiac R01.1 [place] [address] [address] May, Other chest pain R07.89 ; Ta chycardia R00.0 and Murmur, cardiac R01.1 [facility] [place] [address] [address] May, [place] [address] [address] May, Uncontrolled type 2 diabetes mellitus with hyperglycemia E11.65 and Oral candidiasis B37.0 [place] [address] [address] May, COPD exacerbation J44.1 [place] [address] [address] May, COPD exacerbation J44.1 [facility] [place] [address] [address] May, COPD exacerbation J44.1 and Type 2 diabetes mellitus without complication, without long-term current use of insulin E11.9 [facility] [address] [facility] [id number] [address] [place] [address] May, Difficulty breathing R06.89 and Acute bronchitis, unspecified organism J20.9 [facility] [address] [facility] [id number] [address] [place] [address] Apr, Uncontrolled type 2 diabetes mellitus without complication, without long-term current use of insulin E11.65 [facility] [address] [facility] [id number] [address] [place] [address] Feb, [facility] [address] [facility] [id number] [address] [place] [address] Feb, [facility] [address] [facility] [id number] [address] [place] [address] Feb, [facility] [address] [facility] [id number] [address] [place] [address] Jan, [facility] [address] [facility] [id number] [address] [place] [address] Oct, [facility] [address] [facility] [id number] [address] [place] [address] Jul, Diabetes type 2, controlled E11.9 [facility] [address] [facility] [id number] [address] [place] [address] Jun, [facility] [address] [facility] [id number] [address] [place] [address] May, [facility] [address] [facility] [id number] [address] [place] [address] May, Diabetes type 2, controlled E11.9 and Hypertriglyceridemia E78.1 [facility] [address] [place] [id number] [address] [place] [address] May, [facility] [address] [facility] [id number] [address] [place] [address] Apr, Hypertriglyceridemia 272.1 ; Influenza vaccine administered V04.81 and Diabetes 250.00 [facility] [address] [id number] [address] [place] [address] Mar, DM type 2 (diabetes mellitus , type 2) 250.00 ; Essential hypertension, benign 401.1 and Mood disorder 296.90 [facility] [address] [id number] [address] [place] [address] Jan, [facility] [address] [id number] [address] [place] [address], [place] [address] Nov, [facility] [address] [id number] [address] [place] [address] Nov, [facility] [address] [id number] [address] [place] [address], [place] [address] Sep, [facility] [address] [id number] [address] [place] [address], [place] [address] Sep, [facility] [address] [id number] [address] [place] [address] Sep, [facility] [address] [id number] [address] [place] [address], [place] [address] Sep, [facility] [address] [id number] [address] [place] [address], [place] [address] May, [facility] [address] [id number] [address] [place] [address] May, [facility] [address] [id number] [address] [place] [address], [place] [address] Apr, [facility] [address] [id number] [address] [place] [address] Apr, [facility] [address] [id number] [address] [place] [address] Mar, [facility] [address] [id number] [address] [place] [address] Mar, [facility] [address] [id number] [address] [place] [address] Mar, [facility] [address] [id number] [address] [place] [address], [place] [address] Mar, [facility] [address] [id number] [address] [place] [address], [place] [address] Jan, [facility] [address] [id number] [address] [place] [address], [place] [address] Jan, [facility] [address] [id number] [address] [place] [address], [place] [address] Jan, [facility] [address] [id number] [address] [place] [address], [place] [address] Jan, [facility] [address] [id number] [address] [place] [address], [place] [address] Jan, [facility] [address] [id number] [address] [place] [address], [place] [address] Jan, [facility] [address] [id number] [address] [place] [address], [place] [address] Oct, [facility] [address] [id number] [address] [place] [address], [place] [address] Oct, [facility] [address] [id number] [address] [place] [address], [place] [address] Sep, [facility] [address] [id number] [address] [place] [address], [place] [address] Sep, [facility] [address] [id number] [address] [place] [address], [place] [address] Jun, [facility] [address] [id number] [address] [place] [address], [place] [address] Jun, [facility] [address] [id number] [address] [place] [address], [place] [address] Mar, [facility] [address] [id number] [address] [place] [address], [place] [address] Feb, [facility] [address] [id number] [address] [place] [address], [place] [address] Feb, [facility] [address] [id number] [address] [place] [address], [place] [address] Nov, [facility] [address] [id number] [address] [place] [address], [place] [address] Aug, [facility] [address] [id number] [address] [place] [address], [place] [address] Aug, [facility] [address] [id number] [address] [place] [address], [place] [address] Jul, [facility] [address] [id number] [address] [place] [address], [place] [address] Jul, [facility] [address] [id number] [address] [place] [address], [place] [address] May, [facility] [address] [id number] [address] [place] [address], [place] [address] May, [facility] [address] [id number] [address] [place] [address], [place] [address] May, [facility] [address] [id number] [address] [place] [address], [place] [address] May, [facility] [address] [id number] [address] [place] [address], [place] [address] Apr, [facility] [address] [id number] [address] [place] [address], [place] [address] Feb, [facility] [address] [id number] [address] [place] [address], [place] [address] Feb, [facility] [address] [id number] [address] [place] [address], [place] [address] Jan, [facility] [address] [id number] [address] [place] [address], [place] [address] Jan, [facility] [address] [id number] [address] [place] [address], [place] [address] Nov, [facility] [address] [id number] [address] [place] [address] Oct, [facility] [address] [id number] [address] [place] [address] Oct, [facility] [address] [id number] [address] [place] [address] Jul, [facility] [address] [id number] [address] [place] [address] May, [facility] [address] [id number] [address] [place] [address] Nov, [facility] [address] [facility] [id number] [address] [place] [address] Jun, [facility] [address] [facility] [id number] [address] [place] [address] December, [facility] [address] [facility] [id number] [address] [place] [address] Jul, IMMUNIZATIONS No Known Immunizations SOCIAL HISTORY Never Assessed REASON FOR VISIT PLAN OF CARE VITAL SIGNS Height 68 in 2013-03-21 Weight 198.7 lbs 2013-03-21 Temperature 97.4 degrees Fahrenheit 2013-03-21 Heart Rate 72 bpm 2013-03-21 Respiratory Rate 18 2013-03-21 Blood pressure systolic 178 mmHg 2013-03-21 Blood pressure diastolic 88 mmHg 2013-03-21 MEDICATIONS Unknown Medications RESULTS No Results PROCEDURES Procedure Date Ordered Result Body Site COMPLETE CBC W/AUTO DIFF WBC March 21, 2013 GLYCATED HEMOGLOBIN TEST March 21, 2013 MICROALBUMIN, SEMIQUANT March 21, 2013 LIPID PANEL March 21, 2013 COMPREHEN METABOLIC PANEL March 21, 2013 VENIPUNCT, ROUTINE* March 21, 2013 INSTRUCTIONS MEDICATIONS ADMINISTERED No Known Medications MEDICAL [...] 07/07/2018 Hospitalization History rectal and vomitting blood 2019 Hospitalization History Hypoglycemia Hospitalization History [facility] February 2019
--- OUTSIDE RECORDS SUMMARY | 2020-01-27 21:08 | XMS REPORT ---
Author Author Salomon STAHL Organization [facility] Address [address] [place] [address] Care Team Providers Care Priest Name Role Phone RONDA STAHL Unavailable PROBLEMS Type Condition ICD9-CM Code [id number] Code Onset Dates Condition S tatus SNOMED Code Problem Other chronic pain G89.29 Active 8 7507515 Problem COPD exacerbation J44.1 Active 19 8758045 Problem Gastroesophageal reflux disease with esophagitis K 21.0 Active 092212553 Problem Panlobular emphysema J43.1 Active 9041826 Problem PVD (peripheral vascular disease) I73.9 Active 415027073 Problem PTSD (post-traumatic stress disorder) F43.10 Active 09198347 Problem Afib I48.91 Active 45972433 Problem Uncontrolled type 2 diabetes mellitus with hyperglycemia E11.65 Active 516414827 Problem Hypoglycemia E16.2 Active 5096317 03 Problem Recurrent major depressive disorder, in partial remission F33.41 Active 70647983 Problem Neuropathy of left foot G57.92 Active [id number] Problem Peripheral vascular disease, unspecified I73.9 Active 408499523 Problem Hypertensive heart disease with heart failure I11. 0 Active 27579805 Problem Hypertriglyceridemia E78.1 Active 974214111 Problem Type 2 diabetes mellitus with unspecified complications E11.8 Active 69488223 Problem Foot drop, right M21.371 Active 308 543433028964 Problem Diabetes type 2, controlled E11.9 Ac tive 17255144 Problem Diabetes E11.9 Active 58787831 Problem Systolic congestive heart failure, unspecified HF chronici ty I50.20 Active 50839044 Problem Recurrent major depressive disorder, remission s tatus unspecified F33.9 Active 07449549 Problem Chronic obstructive pulmonary disease, unspecified COPD ty pe J44.9 Active 41034884 Problem Chronic kidney disease, stage 3 (moderate) N18.3 Active 609044370 ALLERGIES No Information ENCOUNTERS Encounter Location Date Diagnosis [facility] [address] [id number] [address] [place] [address] Feb, [facility] [address] [id number] [address] [place] [address] Jan, [facility] [address] [facility] [id number] [address] [place] [address] Oct, [facility] [address] [facility] [id number] [address] [place] [address] Oct, Chronic obstructive pulmonar y disease, unspecified COPD type J44.9 ; Systolic congestive heart failure, unspecified HF chronicity I50.20 ; Recurrent major depressive disorder, remission status unspecified F33.9 ; Type 2 diabetes mellitus with unspecified complications E11.8 ; Peripheral vascular disease, unspecified I73.9 and Chronic kidney disease, stage 3 (moderate) N18.3 [place] [address] [place] [id number] [address] [place] [address] Sep, [facility] [address] [place] [id number] [address] [place] [address] Sep, [facility] [address] [facility] [id number] [address] [place] [address] Sep, [facility] [address] [place] [id number] [address] [place] [address] Sep, PTSD (post-traumatic stress disorder) F43.10 [place] [address] [facility] [id number] [address] [place] [address] Aug, Other chronic pain G89.29 [facility] [address] [facility] [id number] [address] [place] [address] Jul, Uncontrolled type 2 diabetes mellitus with hyperglycemia E11.65 [place] [address] [facility] [id number] [address] [place] [address] Jul, Other chronic pain G89.29 [facility] [address] [facility] [id number] [address] [place] [address] Jun, PTSD (post-traumatic stress disorder) F43.10 [facility] [address] [id number] [address] [place] [address] Jun, PTSD (post-traumatic stress disorder) F43.10 [facility] [address] [facility] [id number] [address] [place] [address] Jun, [facility] [address] [facility] [id number] [address] [place] [address] Jun, Uncontrolled type 2 diabetes mellitus with hyperglycemia E11.65 [facility] [address] [id number] [address] [place] [address] Jun, [place] [address] [facility] [id number] [address] [place] [address] Jun, PVD (peripheral vascular dis ease) I73.9 [facility] [address] [facility] [id number] [address] [place] [address] May, [facility] [address] [facility] [id number] [address] [place] [address] May, [facility] [address] [facility] [id number] [address] [place] [address] May, Uncontrolled type 2 diabetes mellitus with hyperglycemia E11.65 ; Neuropathy of left foot G57.92 ; Encounter for immunization Z23 and Recurrent major depressive disorder, in partial remission F33.41 [facility] [address] [facility] [id number] [address] [place] [address] May, [facility] [address] [facility] [id number] [address] [place] [address] May, [facility] [address] [facility] [id number] [address] [place] [address] May, PTSD (post-traumatic stress disorder) F43.10 and Hypertriglyceridemia E78.1 [facility] [address] [facility] [id number] [address] [place] [address] May, [facility] [id number] [place] [id number] May, [facility] [address] [id number] [address] [place] [address] May, [facility] [address] [id number] [address] [place] [address] May, [facility] [address] [id number] [address] [place] [address] Apr, [facility] [address] [id number] [address] [place] [address] Apr, [facility] [address] [id number] [address] [place] [address] Apr, [facility] [address] [facility] [id number] [address] [place] [address] Mar, Other chronic pain G89.29 [facility] [address] [facility] [id number] [address] [place] [address] Mar, PTSD (post-traumatic stress disorder) F43.10 [facility] [address] [facility] [id number] [address] [place] [address] Mar, Encounter for Medicare annua l wellness exam Z00.00 [facility] [address] [facility] [id number] [address] [place] [address] Mar, Encounter for Medicare annua l wellness exam Z00.00 ; Uncontrolled type 2 diabetes mellitus with hyperglycemia E11.65 ; Hypertensive heart disease with heart failure I11.0 ; PVD (peripheral vascular disease) I73.9 ; Panlobular emphysema J43.1 ; Gastroesophageal reflux disease with esophagitis K21.0 ; Afib I48.91 and Hypertriglyceridemia E78.1 [facility] [address] [facility] [id number] [address] [place] [address] Mar, PTSD (post-traumatic stress disorder) F43.10 [facility] [address] [facility] [id number] [address] [place] [address] Feb, [facility] [address] [facility] [id number] [address] [place] [address] Feb, PTSD (post-traumatic stress disorder) F43.10 [facility] [address] [id number] [address] [place] [address] Feb, Hypoglycemia E16.2 [facility] [address] [id number] [address] [place] [address] Feb, [facility] [address] [id number] [address] [place] [address] Feb, Hypoglycemia E16.2 [facility] [address] [id number] [address] [place] [address] Feb, [facility] [address] [id number] [address] [place] [address] Feb, [facility] [address] [id number] [address] [place] [address] Feb, [facility] [address] [id number] [address] [place] [address] Feb, [facility] [address] [id number] [address] [place] [address] Feb, Hypertensive heart disease w ith heart failure I11.0 [facility] [address] [id number] [address] [place] [address] Jan, SOB (shortness of breath) on exertion R06.02 [facility] [address] [id number] [address] [place] [address] December, SOB (shortness of breath) on exertion R06.02 [facility] [address] [id number] [address] [place] [address] December, [facility] [address] [id number] [address] [place] [address] December, [facility] [address] [id number] [address] [place] [address] December, [facility] [address] [address] December, [place] [address] [address] December, PTSD (post-traumatic stress disorder) F43.10 [place] [address] [address] Nov, Diabetes type 2, controlled E11.9 ; Hypertriglyceridemia E78.1 ; COPD exacerbation J44.1 ; PTSD (post-traumatic stress disorder) F43.10 ; Other chronic pain G89.29 ; Gastroesophageal reflux disease with esophagitis K21.0 ; PVD (peripheral vascular disease) I73.9 and Hypertensive heart disease with heart failure I11.0 [place] [address] [address] Oct, PTSD (post-traumatic stress disorder) F43.10 [place] [address] [address] Sep, Diabetes type 2, controlled E11.9 and PTSD (post-traumatic stress disorder) F43.10 [place] [address] [address] Sep, [place] [address] [address] Sep, PTSD (post-traumatic stress disorder) F43.10 [place] [address] [address] Sep, [place] [address] [address] Aug, COPD exacerbation J44.1 ; Di fficulty breathing R06.89 ; History of GI bleed Z87.19 ; PVD (peripheral vascular disease) I73.9 and Uncontrolled type 2 diabetes mellitus with hyperglycemia E11.65 [place] [address] [address] Aug, [place] [address] [id number] [address] [place] [address] Aug, PTSD (post-traumatic stress disorder) F43.10 and Type 2 diabetes mellitus without complication, without long-term current use of insulin E11.9 [facility] [address] [place] [id number] Aug, History of GI bleed Z87.19 ; COPD exacer bation J44.1 and PVD (peripheral vascular disease) I73.9 [place] [address] [id number] [address] [place] [address] 08 Aug, 2018 [facility] [address] [place] [id number] Aug, Diabetes E11.9 ; Other chronic pain G89. 29 and Panlobular emphysema J43.1 [place] [address] [id number] [address] [place] [address] 12 Jul, 2018 [place] [address] [id number] [address] [place] [address] 14 Jun, 2018 PTSD (post-traumatic stress disorder) F43.10 [place] [address] [id number] [address] [place] [address] 14 Jun, 2018 [place] [address] [id number] [address] [place] [address] 12 Jun, 2018 PTSD (post-traumatic stress disorder) F43.10 [place] [address] [id number] [address] [place] [address] 12 Jun, 2018 [place] [address] [id number] [address] [place] [address] 09 Jun, 2018 [place] [address] [facility] [id number] [address] [place] [address] 08 Jun, 2018 Uncontrolled type 2 diabetes mellitus without complication, without long-term current use of insulin E11.65 [place] [address] [id number] [address] [place] [address] Jun, PTSD (post-traumatic stress disorder) F43.10 ; Low back pain M54.5 ; Other chronic pain G89.29 ; Gastroesophageal reflux disease with esophagitis K21.0 and Panlobular emphysema J43.1 [place] [address] [place] [id number] [place] [address] Jun, [place] [address] [address] Jun, Other chest pain R07.89 ; Ta chycardia R00.0 and Murmur, cardiac R01.1 [place] [address] [address] May, Other chest pain R07.89 ; Ta chycardia R00.0 and Murmur, cardiac R01.1 [facility] [place] [address] [address] May, [place] [address] [address] May, Uncontrolled type 2 diabetes mellitus with hyperglycemia E11.65 and Oral candidiasis B37.[address] [address] May, COPD exacerbation J44.1 [place] [address] [address] May, COPD exacerbation J44.1 [facility] [place] [address] [address] May, COPD exacerbation J44.1 and Type 2 diabetes mellitus without complication, without long-term current use of insulin E11.9 [facility] [address] [address] May, Difficulty breathing R06.89 and Acute bronchitis, unspecified organism J20.9 [place] [address] [address] Apr, Uncontrolled type 2 diabetes mellitus without complication, without long-term current use of insulin E11.65 [facility] [address] [facility] [id number] [address] [place] [address] Feb, [facility] [address] [facility] [id number] [address] [place] [address] Feb, [facility] [address] [facility] [id number] [address] [place] [address] Feb, [facility] [address] [facility] [id number] [address] [place] [address] Jan, [facility] [address] [facility] [id number] [address] [place] [address] Oct, [facility] [address] [facility] [id number] [address] [place] [address] Jul, Diabetes type 2, controlled E11.9 [facility] [address] [facility] [id number] [address] [place] [address] Jun, [facility] [address] [facility] [id number] [address] [place] [address] May, [facility] [address] [facility] [id number] [address] [place] [address] May, Diabetes type 2, controlled E11.9 and Hypertriglyceridemia E78.1 [facility] [address] [place] [id number] [address] [place] [address] May, [facility] [address] [facility] [id number] [address] [place] [address] Apr, Hypertriglyceridemia 272.1 ; Influenza vaccine administered V04.81 and Diabetes 250.00 [facility] [address] [place] [id number] [address] [place] [address] Mar, DM type 2 (diabetes mellitus , type 2) 250.00 ; Essential hypertension, benign 401.1 and Mood disorder 296.90 [facility] [address] [place] [id number] [address] [place] [address] Jan, [facility] [address] [id number] [address] [place] [address], [place] [address] 14 Nov, 2014 [facility] [address] [id number] [address] [place] [address], [place] [address] 13 Nov, 2014 [facility] [address] [id number] [address] [place] [address], [place] [address] 16 Sep, 2014 [facility] [address] [id number] [address] [place] [address], [place] [address] 16 Sep, 2014 [facility] [address] [id number] [address] [place] [address], [place] [address] Sep, 2014 [facility] [address] [id number] [address] [place] [address], [place] [address] Sep, 2014 [facility] [address] [id number] [address] [place] [address], [place] [address] May, [facility] [address] [id number] [address] [place] [address], [place] [address] May, [facility] [address] [id number] [address] [place] [address], [place] [address] Apr, [facility] [address] [id number] [address] [place] [address], [place] [address] Apr, [facility] [address] [id number] [address] [place] [address], [place] [address] Mar, [facility] [address] [id number] [address] [place] [address], [place] [address] Mar, [facility] [address] [id number] [address] [place] [address], [place] [address] Mar, [facility] [address] [id number] [address] [place] [address], [place] [address] Mar, [facility] [address] [id number] [address] [place] [address], [place] [address] Jan, [facility] [address] [id number] [address] [place] [address], [place] [address] Jan, [facility] [address] [id number] [address] [place] [address], [place] [address] Jan, [facility] [address] [id number] [address] [place] [address], [place] [address] Jan, [facility] [address] [id number] [address] [place] [address], [place] [address] Jan, [facility] [address] [id number] [address] [place] [address], [place] [address] Jan, [facility] [address] [id number] [address] [place] [address], [place] [address] Oct, [facility] [address] [id number] [address] [place] [address], [place] [address] Oct, [facility] [address] [id number] [address] [place] [address], [place] [address] Sep, [facility] [address] [id number] [address] [place] [address], [place] [address] Sep, [facility] [address] [id number] [address] [place] [address], [place] [address] Jun, [facility] [address] [id number] [address] [place] [address], [place] [address] Jun, [facility] [address] [id number] [address] [place] [address], [place] [address] Mar, [facility] [address] [id number] [address] [place] [address], [place] [address] Feb, [facility] [address] [id number] [address] [place] [address], [place] [address] Feb, [facility] [address] [id number] [address] [place] [address], [place] [address] Nov, [facility] [address] [id number] [address] [place] [address], [place] [address] Aug, [facility] [address] [id number] [address] [place] [address], [place] [address] Aug, [facility] [address] [id number] [address] [place] [address], [place] [address] Jul, [facility] [address] [id number] [address] [place] [address], [place] [address] Jul, [facility] [address] [id number] [address] [place] [address], [place] [address] May, [facility] [address] [id number] [address] [place] [address], [place] [address] May, [facility] [address] [id number] [address] [place] [address], [place] [address] May, [facility] [address] [id number] [address] [place] [address], [place] [address] May, [facility] [address] [id number] [address] [place] [address], [place] [address] Apr, [facility] [address] [id number] [address] [place] [address], [place] [address] Feb, [facility] [address] [id number] [address] [place] [address], [place] [address] Feb, [facility] [address] [id number] [address] [place] [address], [place] [address] Jan, [facility] [address] [id number] [address] [place] [address], [place] [address] Jan, [facility] [address] [id number] [address] [place] [address], [place] [address] Nov, [facility] [address] [id number] [address] [place] [address], [place] [address] Oct, [facility] [address] [id number] [address] [place] [address], [place] [address] Oct, [facility] [address] [id number] [address] [place] [address], [place] [address] Jul, [facility] [address] [facility] [id number] [address] [place] [address] May, [facility] [address] [facility] [id number] [address] [place] [address] Nov, [facility] [address] [facility] [id number] [address] [place] [address] Jun, [facility] [address] [facility] [id number] [address] [place] [address] December, [facility] [address] [facility] [id number] [address] [place] [address] Jul, IMMUNIZATIONS No Known Immunizations SOCIAL HISTORY [...]
--- OUTSIDE RECORDS SUMMARY | 2020-01-27 21:08 | XMS REPORT ---
Author Author Salomon STAHL Organization [facility] Address [address] [place] [address] Care Team Providers Care Php Consultant Name Role Phone RONDA STAHL Unavailable PROBLEMS Type Condition ICD9-CM Code ERO79-CK Code Onset Dates Condition S tatus SNOMED Code Problem Other chronic pain G89.29 Active 8 1747488 Problem COPD exacerbation J44.1 Active 19 3526535 Problem Gastroesophageal reflux disease with esophagitis K 21.0 Active 699731314 Problem Panlobular emphysema J43.1 Active 5111346 Problem PVD (peripheral vascular disease) I73.9 Active 300599349 Problem PTSD (post-traumatic stress disorder) F43.10 Active 04596962 Problem Afib I48.91 Active 06348433 Problem Uncontrolled type 2 diabetes mellitus with hyperglycemia E11.65 Active 491875251 Problem Hypoglycemia E16.2 Active 2793835 03 Problem Recurrent major depressive disorder, in partial remission F33.41 Active 90387824 Problem Neuropathy of left foot G57.92 Active [id number] Problem Peripheral vascular disease, unspecified I73.9 Active 336686226 Problem Hypertensive heart disease with heart failure I11. 0 Active 63713078 Problem Hypertriglyceridemia E78.1 Active 813223267 Problem Type 2 diabetes mellitus with unspecified complications E11.8 Active 04905052 Problem Foot drop, right M21.371 Active 308 [id number] Problem Diabetes type 2, controlled E11.9 Ac tive 07153070 Problem Diabetes E11.9 Active 34717434 Problem Systolic congestive heart failure, unspecified HF chronici ty I50.20 Active 09051689 Problem Recurrent major depressive disorder, remission s tatus unspecified F33.9 Active 76380589 Problem Chronic obstructive pulmonary disease, unspecified COPD ty pe J44.9 Active 97489965 Problem Chronic kidney disease, stage 3 (moderate) N18.3 Active 600259464 ALLERGIES No Information ENCOUNTERS Encounter Location Date Diagnosis [facility] [address] [facility] [id number] [address] [place] [phone] Feb, [facility] [address] [id number] [address] [place] [phone] Jan, [facility] [address] [facility] [id number] [address] [place] [phone] Oct, [facility] [address] [facility] [id number] [address] [place] [phone] Oct, Chronic obstructive pulmonar y disease, unspecified COPD type J44.9 ; Systolic congestive heart failure, unspecified HF chronicity I50.20 ; Recurrent major depressive disorder, remission status unspecified F33.9 ; Type 2 diabetes mellitus with unspecified complications E11.8 ; Peripheral vascular disease, unspecified I73.9 and Chronic kidney disease, stage 3 (moderate) N18.3 [place] [address] [address] [place] [id number] [address] [place] [address] Sep, [facility] [address] [place] [id number] [address] [place] [phone] Sep, [facility] [address] [facility] [id number] [address] [place] [address] Sep, [facility] [address] [place] [id number] [address] [place] [phone] Sep, PTSD (post-traumatic stress disorder) F43.10 [place] [address] [address] [facility] [id number] [address] [place] [address] Aug, Other chronic pain G89.29 [facility] [address] [facility] [id number] [address] [place] [id number] Jul, Uncontrolled type 2 diabetes mellitus with hyperglycemia E11.65 [place] [address] [address] [facility] [id number] [address] [place] [address] Jul, Other chronic pain G89.29 [facility] [address] [facility] [id number] [address] [place] [address] Jun, PTSD (post-traumatic stress disorder) F43.10 [facility] [address] [id number] [address] [place] [address] Jun, PTSD (post-traumatic stress disorder) F43.10 [facility] [address] [facility] [id number] [address] [place] [phone] Jun, [facility] [address] [facility] [id number] [address] [place] [address] Jun, Uncontrolled type 2 diabetes mellitus with hyperglycemia E11.65 [facility] [address] [id number] [address] [place] [address] Jun, [place] [address] [address] [facility] [id number] [address] [place] [phone] Jun, PVD (peripheral vascular dis ease) I73.9 [facility] [address] [facility] [id number] [address] [place] [phone] May, [facility] [address] [facility] [id number] [address] [place] [id number] May, [facility] [address] [facility] [id number] [address] [place] [address] May, Uncontrolled type 2 diabetes mellitus with hyperglycemia E11.65 ; Neuropathy of left foot G57.92 ; Encounter for immunization Z23 and Recurrent major depressive disorder, in partial remission F33.41 [facility] [address] [facility] [id number] [address] [place] [phone] May, [facility] [address] [facility] [id number] [address] [place] [phone] May, [facility] [address] [facility] [id number] [address] [place] [address] May, PTSD (post-traumatic stress disorder) F43.10 and Hypertriglyceridemia E78.1 [facility] [address] [facility] [id number] [address] [place] [address] May, [facility] [id number] [place] [id number] May, [facility] [address] [id number] [address] [place] [phone] May, [facility] [address] [id number] [address] [place] [phone] May, [facility] [address] [id number] [address] [place] [address] Apr, [facility] [address] [id number] [address] [place] [phone] Apr, [facility] [address] [id number] [address] [place] [id number] Apr, [facility] [address] [facility] [id number] [address] [place] [address] Mar, Other chronic pain G89.29 [facility] [address] [facility] [id number] [address] [place] [id number] Mar, PTSD (post-traumatic stress disorder) F43.10 [facility] [address] [facility] [id number] [address] [place] [phone] Mar, Encounter for Medicare annua l wellness exam Z00.00 [facility] [address] [facility] [id number] [address] [place] [id number] Mar, Encounter for Medicare annua l wellness exam Z00.00 ; Uncontrolled type 2 diabetes mellitus with hyperglycemia E11.65 ; Hypertensive heart disease with heart failure I11.0 ; PVD (peripheral vascular disease) I73.9 ; Panlobular emphysema J43.1 ; Gastroesophageal reflux disease with esophagitis K21.0 ; Afib I48.91 and Hypertriglyceridemia E78.1 [facility] [address] [facility] [id number] [address] [place] [phone] Mar, PTSD (post-traumatic stress disorder) F43.10 [facility] [address] [facility] [id number] [address] [place] [address] Feb, [facility] [address] [facility] [id number] [address] [place] [phone] Feb, PTSD (post-traumatic stress disorder) F43.10 [facility] [address] [id number] [address] [place] [id number] Feb, Hypoglycemia E16.2 [facility] [address] [id number] [address] [place] [phone] Feb, [facility] [address] [id number] [address] [place] [phone] Feb, Hypoglycemia E16.2 [facility] [address] [id number] [address] [place] [phone] Feb, [facility] [address] [id number] [address] [place] [phone] Feb, [facility] [address] [id number] [address] [place] [phone] Feb, [facility] [address] [id number] [address] [place] [phone] Feb, [facility] [address] [id number] [address] [place] [phone] Feb, Hypertensive heart disease w ith heart failure I11.0 [facility] [address] [id number] [address] [place] [phone] Jan, SOB (shortness of breath) on exertion R06.02 [facility] [address] [id number] [address] [place] [phone] December, SOB (shortness of breath) on exertion R06.02 [facility] [address] [id number] [address] [place] [phone] December, [facility] [address] [id number] [address] [place] [phone] December, [facility] [address] [id number] [address] [place] [phone] December, [facility] [address] [address] December, [place] [address] [address] December, PTSD (post-traumatic stress disorder) F43.10 [place] [address] [address] Nov, Diabetes type 2, controlled E11.9 ; Hypertriglyceridemia E78.1 ; COPD exacerbation J44.1 ; PTSD (post-traumatic stress disorder) F43.10 ; Other chronic pain G89.29 ; Gastroesophageal reflux disease with esophagitis K21.0 ; PVD (peripheral vascular disease) I73.9 and Hypertensive heart disease with heart failure I11.0 [place] [address] [address] Oct, PTSD (post-traumatic stress disorder) F43.10 [place] [address] [address] Sep, Diabetes type 2, controlled E11.9 and PTSD (post-traumatic stress disorder) F43.10 [place] [address] [address] Sep, [place] [address] [address] Sep, PTSD (post-traumatic stress disorder) F43.10 [place] [address] [address] Sep, [place] [address] [address] Aug, COPD exacerbation J44.1 ; Di fficulty breathing R06.89 ; History of GI bleed Z87.19 ; PVD (peripheral vascular disease) I73.9 and Uncontrolled type 2 diabetes mellitus with hyperglycemia E11.65 [place] [address] [address] Aug, [place] [address] [id number] [address] [place] [id number] Aug, PTSD (post-traumatic stress disorder) F43.10 and Type 2 diabetes mellitus without complication, without long-term current use of insulin E11.9 [facility] [address] [place] [id number] Aug, History of GI bleed Z87.19 ; COPD exacer bation J44.1 and PVD (peripheral vascular disease) I73.9 [place] [address] [id number] [address] [place] [phone] 08 Aug, 2018 [facility] [address] [place] [id number] Aug, Diabetes E11.9 ; Other chronic pain G89. 29 and Panlobular emphysema J43.1 [place] [address] [id number] [address] [place] [id number] 12 Jul, 2018 [place] [address] [id number] [address] [place] [phone] 14 Jun, 2018 PTSD (post-traumatic stress disorder) F43.10 [place] [address] [id number] [address] [place] [phone] 14 Jun, 2018 [place] [address] [id number] [address] [place] [id number] 12 Jun, 2018 PTSD (post-traumatic stress disorder) F43.10 [place] [address] [id number] [address] [place] [phone] 12 Jun, 2018 [place] [address] [id number] [address] [place] [phone] 09 Jun, 2018 [place] [address] [facility] [id number] [address] [place] [phone] 08 Jun, 2018 Uncontrolled type 2 diabetes mellitus without complication, without long-term current use of insulin E11.65 [place] [address] [id number] [address] [place] [phone] Jun, PTSD (post-traumatic stress disorder) F43.10 ; Low back pain M54.5 ; Other chronic pain G89.29 ; Gastroesophageal reflux disease with esophagitis K21.0 and Panlobular emphysema J43.1 [place] [address] [place] [id number] [place] [address] Jun, [place] [address] [address] Jun, Other chest pain R07.89 ; Ta chycardia R00.0 and Murmur, cardiac R01.1 [place] [address] [address] May, Other chest pain R07.89 ; Ta chycardia R00.0 and Murmur, cardiac R01.1 [facility] [place] [address] [address] May, [place] [address] [address] May, Uncontrolled type 2 diabetes mellitus with hyperglycemia E11.65 and Oral candidiasis B37.[address] [address] May, COPD exacerbation J44.1 [place] [address] [address] May, COPD exacerbation J44.1 [facility] [place] [address] [address] May, COPD exacerbation J44.1 and Type 2 diabetes mellitus without complication, without long-term current use of insulin E11.9 [facility] [address] [address] May, Difficulty breathing R06.89 and Acute bronchitis, unspecified organism J20.9 [place] [address] [address] Apr, Uncontrolled type 2 diabetes mellitus without complication, without long-term current use of insulin E11.65 [facility] [address] [facility] [id number] [address] [place] [id number] Feb, [facility] [address] [facility] [id number] [address] [place] [phone] Feb, [facility] [address] [facility] [id number] [address] [place] [phone] Feb, [facility] [address] [facility] [id number] [address] [place] [phone] Jan, [facility] [address] [facility] [id number] [address] [place] [phone] Oct, [facility] [address] [facility] [id number] [address] [place] [id number] Jul, Diabetes type 2, controlled E11.9 [facility] [address] [facility] [id number] [address] [place] [phone] Jun, [facility] [address] [facility] [id number] [address] [place] [address] May, [facility] [address] [facility] [id number] [address] [place] [address] May, Diabetes type 2, controlled E11.9 and Hypertriglyceridemia E78.1 [facility] [address] [place] [id number] [address] [place] [phone] May, [facility] [address] [facility] [id number] [address] [place] [address] Apr, Hypertriglyceridemia 272.1 ; Influenza vaccine administered V04.81 and Diabetes 250.00 [facility] [address] [place] [id number] [address] [place] [address] Mar, DM type 2 (diabetes mellitus , type 2) 250.00 ; Essential hypertension, benign 401.1 and Mood disorder 296.90 [facility] [address] [place] [id number] [address] [place] [address] Jan, [facility] [address] [id number] [address] [place] [address], [place] [address] 14 Nov, 2014 [facility] [address] [id number] [address] [place] [address], [place] [address] 13 Nov, 2014 [facility] [address] [id number] [address] [place] [address], [place] [address] 16 Sep, 2014 [facility] [address] [id number] [address] [place] [address], [place] [address] 16 Sep, 2014 [facility] [address] [id number] [address] [place] [address], [place] [address] Sep, 2014 [facility] [address] [id number] [address] [place] [address], [place] [address] Sep, 2014 [facility] [address] [id number] [address] [place] [address], [place] [address] May, [facility] [address] [id number] [address] [place] [address], [place] [address] May, [facility] [address] [id number] [address] [place] [address], [place] [address] Apr, [facility] [address] [id number] [address] [place] [address], [place] [address] Apr, [facility] [address] [id number] [address] [place] [address], [place] [address] Mar, [facility] [address] [id number] [address] [place] [address], [place] [address] Mar, [facility] [address] [id number] [address] [place] [address], [place] [address] Mar, [facility] [address] [id number] [address] [place] [address], [place] [address] Mar, [facility] [address] [id number] [address] [place] [address], [place] [address] Jan, [facility] [address] [id number] [address] [place] [address], [place] [address] Jan, [facility] [address] [id number] [address] [place] [address], [place] [address] Jan, [facility] [address] [id number] [address] [place] [address], [place] [address] Jan, [facility] [address] [id number] [address] [place] [address], [place] [address] Jan, [facility] [address] [id number] [address] [place] [address], [place] [address] Jan, [facility] [address] [id number] [address] [place] [address], [place] [address] Oct, [facility] [address] [id number] [address] [place] [address], [place] [address] Oct, [facility] [address] [id number] [address] [place] [address], [place] [address] Sep, [facility] [address] [id number] [address] [place] [address], [place] [address] Sep, [facility] [address] [id number] [address] [place] [address], [place] [address] Jun, [facility] [address] [id number] [address] [place] [address], [place] [address] Jun, [facility] [address] [id number] [address] [place] [address], [place] [address] Mar, [facility] [address] [id number] [address] [place] [address], [place] [address] Feb, [facility] [address] [id number] [address] [place] [address], [place] [address] Feb, [facility] [address] [id number] [address] [place] [address], [place] [address] Nov, [facility] [address] [id number] [address] [place] [address], [place] [address] Aug, [facility] [address] [id number] [address] [place] [address], [place] [address] Aug, [facility] [address] [id number] [address] [place] [address], [place] [address] Jul, [facility] [address] [id number] [address] [place] [address], [place] [address] Jul, [facility] [address] [id number] [address] [place] [address], [place] [address] May, [facility] [address] [id number] [address] [place] [address], [place] [address] May, [facility] [address] [id number] [address] [place] [address], [place] [address] May, [facility] [address] [id number] [address] [place] [address], [place] [address] May, [facility] [address] [id number] [address] [place] [address], [place] [address] Apr, [facility] [address] [id number] [address] [place] [address], [place] [address] Feb, [facility] [address] [id number] [address] [place] [address], [place] [address] Feb, [facility] [address] [id number] [address] [place] [address], [place] [address] Jan, [facility] [address] [id number] [address] [place] [address], [place] [address] Jan, [facility] [address] [id number] [address] [place] [address], [place] [address] Nov, [facility] [address] [id number] [address] [place] [address], [place] [address] Oct, [facility] [address] [id number] [address] [place] [address], [place] [address] Oct, [facility] [address] [id number] [address] [place] [address], [place] [address] Jul, [facility] [address] [facility] [id number] [address] [place] [id number] May, [facility] [address] [facility] [id number] [address] [place] [id number] Nov, [facility] [address] [facility] [id number] [address] [place] [id number] Jun, [facility] [address] [facility] [id number] [address] [place] [id number] December, [facility] [address] [facility] [id number] [address] [place] [id number] Jul, IMMUNIZATIONS No Known Immunizations SOCIAL HISTORY [...]
--- OUTSIDE RECORDS SUMMARY | 2020-01-27 21:12 | XMS REPORT | Continuity of Care Document ---
Author Organization Unknown Address Unknown Phone Unavailable Allergies Active Description Code Type Severity Reaction Onset Reported/Identified Relationship to Patient Clinical Status Yes No Known Drug Allergies [id number] Drug Allergy Unknown N/A 07/23/2018 Medications There [...] RESUSCITATE 07/13/2018 JOHN VILLALPANDO MD, Ot Z79.82 PAYROLL COORDINATOR (CURRENT) USE OF ASPIRIN 07/14/2018 JOHN VILLALPANDO [...] RESUSCITATE 07/14/2018 JOHN VILLALPANDO MD, Ot Z79.82 CUSTODIAL (CURRENT) USE OF ASPIRIN 07/15/2018 JOHN VILLALPANDO [...] GASTRO-ESOPHAGEAL REFLUX DISEASE WITH ES 07/15/2018 JOHN VILLAPLANDO MD, Ot K26 .4 CHRONIC OR UNSPECIFIED [...] RESUSCITATE 07/15/2018 JOHN VILLALPANDO MD, Ot Z79.82 PAYROLL COORDINATOR (CURRENT) USE OF ASPIRIN 07/16/2018 JOHN VILLALPANDO [...] RESUSCITATE 07/16/2018 JOHN VILLALPANDO MD, Ot Z79.82 CUSTODIAL (CURRENT) USE OF ASPIRIN 07/16/2018 JOHN VILLALPANDO [...] RESUSCITATE 07/16/2018 JOHN VILLALPANDO MD, Ot Z79.82 PAYROLL COORDINATOR (CURRENT) USE OF ASPIRIN 07/17/2018 JOHN VILLALPANDO [...] RESUSCITATE 07/17/2018 JOHN VILLALPANDO MD, Ot Z79.82 CUSTODIAL (CURRENT) USE OF ASPIRIN 07/17/2018 JOHN VILLALPANDO MD Ot D62 ACUTE POSTHEMORRHAGIC ANEMIA 07/17/2018 JOHN VILLALPANDO MD, Ot D72.829 ELEVATED WHITE BLOOD CELL COUNT, UNSPECI 07/17/2018 KWASI MD, JHON N Ot E11.65 TYPE 2 DIABETES MELLITUS [...] RESUSCITATE 07/17/2018 JOHN VILLALPANDO MD, Ot Z79.82 PAYROLL COORDINATOR (CURRENT) USE OF ASPIRIN 07/18/2018 JOHN VILLALPANDO [...] SPECIFIED DISORDERS OF EYE AND ADN 07/18/2018 JOHN VILLALPANDO MD, Ot I10 ESSENTIAL (PRIMARY) [...] RESUSCITATE 07/18/2018 JOHN VILLALPANDO MD, Ot Z79.82 CUSTODIAL (CURRENT) USE OF ASPIRIN 07/19/2018 JOHN VILLALPANDO [...] RESUSCITATE 07/19/2018 JOHN VILLALPANDO MD, Ot Z79.82 CUSTODIAL (CURRENT) USE OF ASPIRIN 07/19/2018 JOHN VILLALPANDO [...] RESUSCITATE 07/19/2018 JOHN VILLALPANDO MD, Ot Z79.82 PAYROLL COORDINATOR (CURRENT) USE OF ASPIRIN 07/19/2018 JOHN VILLALPANDO [...] RESUSCITATE 07/19/2018 JOHN VILLALPANDO MD, Ot Z79.82 PAYROLL COORDINATOR (CURRENT) USE OF ASPIRIN 07/20/2018 JOHN VILLALPANDO [...] MD, Ot R63 .0 ANOREXIA 07/20/2018 JOHN IVLLALPANDO MD, Ot Z66 DO NOT RESUSCITATE 07/20/2018 JOHN VILLALPANDO MD, Ot Z79.82 CUSTODIAL (CURRENT) USE OF ASPIRIN 07/21/2018 JOHN VILLALPANDO [...] RESUSCITATE 07/21/2018 JOHN VILLALPANDO MD, Ot Z79.82 PAYROLL COORDINATOR (CURRENT) USE OF ASPIRIN 07/21/2018 JOHN VILLALPANDO [...] OR UNSPECIFIED DUODENAL ULCER [place] 07/21/2018 JOHN VILLALAPNDO MD, Ot K29.71 GASTRITIS, UNSPECIFIED, WITH BLEEDING [...] RESUSCITATE 07/21/2018 JOHN VILLALPANDO MD, Ot Z79.82 PAYROLL COORDINATOR (CURRENT) USE OF ASPIRIN 07/22/2018 JOHN VILLALPANDO [...] RESUSCITATE 07/22/2018 JOHN VILLALPANDO MD, Ot Z79.82 PAYROLL COORDINATOR (CURRENT) USE OF ASPIRIN 07/23/2018 JOHN VILLALPANDO [...] RESUSCITATE 07/23/2018 JOHN VILLALPANDO MD, Ot Z79.82 PAYROLL COORDINATOR (CURRENT) USE OF ASPIRIN 07/23/2018 JOHN VLILALPANDO MD Ot D62 ACUTE POSTHEMORRHAGIC ANEMIA 07/23/2018 [...] RESUSCITATE 07/23/2018 JOHN VILLALPANDO MD, Ot Z79.82 PAYROLL COORDINATOR (CURRENT) USE OF ASPIRIN 07/24/2018 JOHN VILLALPANDO [...] RESUSCITATE 07/24/2018 JOHN VILLALPANDO MD, Ot Z79.82 CUSTODIAL (CURRENT) USE OF ASPIRIN 07/25/2018 JOHN VILLALPANDO [...] RESUSCITATE 07/25/2018 JOHN VILLALPANDO MD Ot Z79.82 PAYROLL COORDINATOR (CURRENT) USE OF ASPIRIN 07/26/2018 JOHN VILLALPANDO [...] RESUSCITATE 07/26/2018 JOHN VILLALPANDO MD, Ot Z79.82 PAYROLL COORDINATOR (CURRENT) USE OF ASPIRIN 07/26/2018 JOHN VILLALPANDO [...] RESUSCITATE 07/26/2018 JOHN VILLALPANDO MD, Ot Z79.82 CUSTODIAL (CURRENT) USE OF ASPIRIN 07/27/2018 JOHN VILLALPANDO [...] R33 .8 OTHER RETENTION OF URINE 07/27/2018 JOHN VILLALPANDO MD Ot R53 .1 WEAKNESS 07/27/2018 JOHN VILLALPANDO MD Ot R63 .0 ANOREXIA 07/27/2018 JOHN VILLALPANDO MD, Ot Z66 DO NOT RESUSCITATE 07/27/2018 JOHN VILLALPANDO MD Ot Z79.82 PAYROLL COORDINATOR (CURRENT) USE OF ASPIRIN 07/28/2018 JOHN VILLALPANDO [...] RESUSCITATE 07/28/2018 JOHN VILLALPANDO MD, Ot Z79.82 PAYROLL COORDINATOR (CURRENT) USE OF ASPIRIN 07/29/2018 JOHN VILLALPANDO [...] RESUSCITATE 07/29/2018 JOHN VILLALPANDO MD Ot Z79.82 PAYROLL COORDINATOR (CURRENT) USE OF ASPIRIN 07/30/2018 JOHN VILLALPANDO [...] RESUSCITATE 07/30/2018 JOHN VILLALPANDO MD, Ot Z79.82 PAYROLL COORDINATOR (CURRENT) USE OF ASPIRIN 07/31/2018 JOHN VILLALPANDO [...] RESUSCITATE 07/31/2018 JOHN VILLALPANDO MD, Ot Z79.82 CUSTODIAL (CURRENT) USE OF ASPIRIN 07/31/2018 JOHN VILLALPANDO [...] K44 .9 DIAPHRAGMATIC HERNIA WITHOUT OBSTRUCTION 07/31/2018 JONH VILLALPANDO MD, Ot K58 .1 IRRITABLE BOWEL [...] RESUSCITATE 07/31/2018 JOHN VILLALPANDO MD, Ot Z79.82 PAYROLL COORDINATOR (CURRENT) USE OF ASPIRIN 08/01/2018 JOHN VILLALPANDO MD Ot D62 ACUTE POSTHEMORRHAGIC ANEMIA 08/01/2018 JHON VILLALPANDO MD, Ot D72.829 ELEVATED WHITE BLOOD [...] Ot K29.71 GASTRITIS, UNSPECIFIED, WITH BLEEDING 08/01/2018 JOHN VILLALPANDO MD Ot K44 .9 DIAPHRAGMATIC [...] RESUSCITATE 08/01/2018 JOHN VILLALPANDO MD Ot Z79.82 PAYROLL COORDINATOR (CURRENT) USE OF ASPIRIN 08/02/2018 JOHN VILLALPANDO [...] RESUSCITATE 08/02/2018 JOHN VILLALPANDO MD, Ot Z79.82 PAYROLL COORDINATOR (CURRENT) USE OF ASPIRIN 08/03/2018 JOHN VILLALPANDO [...] MD Ot M47 .9 SPONDYLOSIS, UNSPECIFIED 08/03/2018 JONH VILLALPANDO MD Ot N17 .9 ACUTE KIDNEY FAILURE, UNSPECIFIED 08/03/2018 JOHN VILLALPANDO MD Ot N40 .1 BENIGN PROSTATIC HYPERPLASIA WITH LOWER 08/03/2018 JOHN VILLALPANDO MD Ot R33 .8 OTHER RETENTION OF URINE 08/03/2018 JOHN VILLALPANDO MD Ot R53 .1 WEAKNESS 08/03/2018 JOHN VILLALPANDO MD Ot R63 .0 ANOREXIA 08/03/2018 JOHN VILLALPANDO MD Ot Z66 DO NOT RESUSCITATE 08/03/2018 JOHN VILLALPANDO MD Ot Z79.82 PAYROLL COORDINATOR (CURRENT) USE OF ASPIRIN 08/03/2018 JOHN VILLALPANDO [...] RESUSCITATE 08/03/2018 JOHN VILLALPANDO MD, Ot Z79.82 CUSTODIAL (CURRENT) USE OF ASPIRIN 08/04/2018 JOHN VILLALPANDO [...] RESUSCITATE 08/04/2018 JOHN VILLALPANDO MD Ot Z79.82 CUSTODIAL (CURRENT) USE OF ASPIRIN 08/04/2018 JOHN VILLALPANDO [...] 08/04/2018 JOHN VILLALPANDO MD, Ot 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 [place] ARTERIES OF EXTRM W INTRMT 08/04/2018 JOHN VILLALPANDO MD Ot I70.223 ATHSCL [place] ARTERIES OF EXTRM W REST P 08/04/2018 [...] RESUSCITATE 08/04/2018 JOHN VILLALPANDO MD, Ot Z79.82 PAYROLL COORDINATOR (CURRENT) USE OF ASPIRIN 08/04/2018 JOHN VILLALPANDO [...] RESUSCITATE 08/04/2018 JOHN VILLALPANDO MD Ot Z79.82 CUSTODIAL (CURRENT) USE OF ASPIRIN 08/07/2018 DERIAN BOLAÑOS MD Ot D64.9 ANEMIA, UNSPECIFIED 08/07/2018 DERIAN BOLAÑOS MD Ot E11.9 TYPE 2 DIABETES MELLITUS WITHOUT COMPLIC 08/07/2018 DERIAN BOLAÑOS MD Ot F43.10 POST-TRAUMATIC STRESS DISORDER, UNSPECIF 08/07/2018 DERIAN BOLAÑOS MD Ot I10 ESSENTIAL (PRIMARY) HYPERTENSION 08/07/2018 DERIAN BOLAÑOS MD Ot I25.10 ATHSCL HEART DISEASE OF [place] CORONARY 08/07/2018 DERIAN BOLAÑOS MD Ot I25.5 [...] INITIAL 08/07/2018 DERIAN BOLAÑOS MD, Ot Z79.4 CUSTODIAL (CURRENT) USE OF INSULIN 08/07/2018 DERIAN BOLAÑOS MD, Ot Z79.51 CUSTODIAL (CURRENT) USE OF INHALED STERO 08/07/2018 DERIAN [...] MD, Ot I25.10 ATHSCL HEART DISEASE OF [place] CORONARY 12/03/2018 Jose GRAY MD, Ot I25 .2 OLD MYOCARDIAL INFARCTION 12/03/2018 Jose GRAY MD, Ot I25 .5 ISCHEMIC CARDIOMYOPATHY 12/03/2018 Jose GRAY MD, Ot I35 .1 NONRHEUMATIC AORTIC (VALVE) INSUFFICIENC 12/03/2018 Jose GRAY MD Ot I50.20 UNSPECIFIED SYSTOLIC (CONGESTIVE) HEART 12/03/2018 Jose GRAY MD Ot I70 .0 ATHEROSCLEROSIS OF [place] 12/03/2018 Jose GRAY MD Ot 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 [place] ARTERIES OF EXTRM W INTRVT 12/03/2018 Jose GRAY MD Ot I70.92 CHRONIC TOTAL OCCLUSION OF ARTERY OF THE 12/03/2018 Jose GRAY MD Ot Z79 .4 CUSTODIAL (CURRENT) USE OF INSULIN 12/03/2018 Jose GRAY MD, Ot Z79.899 OTHER PAYROLL COORDINATOR (CURRENT) DRUG THERAPY 12/03/2018 Jose GRAY MD [...] MD Ot I25.10 ATHSCL HEART DISEASE OF [place] CORONARY 12/07/2018 Jose GRAY MD Ot I25 .2 OLD MYOCARDIAL INFARCTION 12/07/2018 Jose GRAY MD Ot I25 .5 ISCHEMIC CARDIOMYOPATHY 12/07/2018 Jose GRAY MD Ot I35 .1 NONRHEUMATIC AORTIC (VALVE) INSUFFICIENC 12/07/2018 Jose GRAY MD Ot I50.20 UNSPECIFIED SYSTOLIC (CONGESTIVE) HEART 12/07/2018 Jose GRAY MD Ot I70 .0 ATHEROSCLEROSIS OF [place] 12/07/2018 Jose GRAY MD Ot 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 [place] ARTERIES OF EXTRM W INTRMT 12/07/2018 Jose GRAY MD Ot I70.92 CHRONIC TOTAL OCCLUSION OF ARTERY OF THE 12/07/2018 Jose GRAY MD Ot Z79 .4 CUSTODIAL (CURRENT) USE OF INSULIN 12/07/2018 Jose GRAY MD, Ot Z79.899 OTHER CUSTODIAL (CURRENT) DRUG THERAPY 12/07/2018 Jose GRAY MD Ot Z95 .5 PRESENCE OF CORONARY ANGIOPLASTY IMPLANT 12/10/2018 Jose RGAY MD Ot E11 .9 TYPE 2 DIABETES MELLITUS WITHOUT COMPLIC 12/10/2018 Jose GRAY MD, Ot E78 .5 HYPERLIPIDEMIA, UNSPECIFIED 12/10/2018 Jose GRAY MD Ot F17.210 NICOTINE DEPENDENCE, CIGARETTES, UNCOMPL 12/10/2018 Jose GRAY MD Ot I10 ESSENTIAL (PRIMARY) HYPERTENSION 12/10/2018 Jose GRAY MD Ot I25.10 ATHSCL HEART DISEASE OF [place] CORONARY 12/10/2018 Jose GRAY MD Ot I25 .5 ISCHEMIC CARDIOMYOPATHY 12/10/2018 Jose GRAY MD Ot I70.212 ATHSCL [place] ARTERIES OF EXTRM W INTRMT 12/10/2018 Jose GRAY MD, Ot Z79 .4 PAYROLL COORDINATOR (CURRENT) USE OF INSULIN 12/10/2018 Jose GRAY MD, Ot Z79.899 OTHER PAYROLL COORDINATOR (CURRENT) DRUG THERAPY 12/14/2018 Jose GRAY MD, Ot E11 .9 TYPE 2 DIABETES MELLITUS WITHOUT COMPLIC 12/14/2018 Jose GRAY MD, Ot E78 .5 HYPERLIPIDEMIA, UNSPECIFIED 12/14/2018 Jose GRAY MD Ot F17.210 NICOTINE DEPENDENCE, CIGARETTES, UNCOMPL 12/14/2018 Jose GRAY MD Ot I10 ESSENTIAL (PRIMARY) HYPERTENSION 12/14/2018 Jose GRAY MD Ot I25.10 ATHSCL HEART DISEASE OF [place] CORONARY 12/14/2018 Jose GRAY MD Ot I25 .5 ISCHEMIC CARDIOMYOPATHY 12/14/2018 Jose GRAY MD Ot I70.212 ATHSCL [place] ARTERIES OF [facility] 12/14/2018 Jose GRAY MD Ot Z79 .4 CUSTODIAL (CURRENT) USE OF INSULIN 12/14/2018 Jose GRAY MD Ot Z79.899 OTHER PAYROLL COORDINATOR (CURRENT) DRUG THERAPY 12/14/2018 Jose GRAY MD Ot E11 .9 TYPE 2 DIABETES MELLITUS WITHOUT COMPLIC 12/14/2018 Jose GRAY MD Ot E78 .5 HYPERLIPIDEMIA, UNSPECIFIED 12/14/2018 Jose GRAY MD Ot F17.210 NICOTINE DEPENDENCE, CIGARETTES, UNCOMPL 12/14/2018 Jose GRAY MD Ot I10 ESSENTIAL (PRIMARY) HYPERTENSION 12/14/2018 Jose GRAY MD Ot I25.10 ATHSCL HEART DISEASE OF [place] CORONARY 12/14/2018 Jose GRAY MD Ot I25 .5 ISCHEMIC CARDIOMYOPATHY 12/14/2018 Jose GRAY MD Ot I70.212 ATHSCL [place] ARTERIES OF [facility] 12/14/2018 Jose GRAY MD Ot Z79 .4 PAYROLL COORDINATOR (CURRENT) USE OF INSULIN 12/14/2018 Jose GRAY MD Ot Z79.899 OTHER CUSTODIAL (CURRENT) DRUG THERAPY 12/17/2018 Jose GRAY MD Ot E11 .9 TYPE 2 DIABETES MELLITUS WITHOUT COMPLIC 12/17/2018 Jose GRAY MD Ot E78 .5 HYPERLIPIDEMIA, UNSPECIFIED 12/17/2018 Jose GRAY MD Ot F17.210 NICOTINE DEPENDENCE, CIGARETTES, UNCOMPL 12/17/2018 Jose GRAY MD Ot I10 ESSENTIAL (PRIMARY) HYPERTENSION 12/17/2018 Jose GRAY MD Ot I25.10 ATHSCL HEART DISEASE OF [place] CORONARY 12/17/2018 Jose GRAY MD Ot I25 .5 ISCHEMIC CARDIOMYOPATHY 12/17/2018 Jose GRAY MD Ot I70.212 ATHSCL [place] ARTERIES OF EXTR [facility] 12/17/2018 Jose GRAY MD Ot Z79 .4 PAYROLL COORDINATOR (CURRENT) USE OF INSULIN 12/17/2018 Jose GRAY MD, Ot Z79.899 OTHER PAYROLL COORDINATOR (CURRENT) DRUG THERAPY 12/21/2018 Jose GRAY MD, Ot E78 .5 HYPERLIPIDEMIA, UNSPECIFIED 12/21/2018 Jose GRAY MD Ot I10 ESSENTIAL (PRIMARY) HYPERTENSION 12/21/2018 Jose GRAY MD Ot I25.10 ATHSCL HEART DISEASE OF [place] CORONARY 12/21/2018 Jose GRAY MD Ot I25 .5 ISCHEMIC CARDIOMYOPATHY 12/21/2018 Jose GRAY MD Ot I73 .9 PERIPHERAL VASCULAR DISEASE, UNSPECIFIED 12/31/2018 Jose GRAY MD, Ot E78 .5 HYPERLIPIDEMIA, UNSPECIFIED 12/31/2018 Jose GRAY MD Ot I10 ESSENTIAL (PRIMARY) HYPERTENSION 12/31/2018 Jose GRAY MD Ot I25.10 ATHSCL HEART DISEASE OF [place] CORONARY 12/31/2018 Jose GRAY MD Ot I25 .5 ISCHEMIC CARDIOMYOPATHY 12/31/2018 Jose GRAY MD Ot I73 .9 PERIPHERAL VASCULAR DISEASE, UNSPECIFIED 02/22/2019 Jose GRAY MD, Ot E78 .5 HYPERLIPIDEMIA, UNSPECIFIED 02/22/2019 Jose GRAY MD Ot I10 ESSENTIAL (PRIMARY) HYPERTENSION 02/22/2019 Jose GRAY MD Ot I25.10 ATHSCL HEART DISEASE OF [place] CORONARY 02/22/2019 Jose GRAY MD Ot I25 [...] Ot F41.9 ANXIETY DISORDER, UNSPECIFIED 02/22/2019 ALBERT ABEL DO Ot F43.10 POST-TRAUMATIC STRESS DISORDER, UNSPECIF 02/22/2019 ALBERT ABEL DO Ot I13.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 02/22/2019 ALBERT ABEL DO Ot I21.A1 MYOCARDIAL INFARCTION TYPE 2 02/22/2019 ALBERT ABEL DO Ot I25.10 ATHSCL HEART DISEASE OF [place] CORONARY 02/22/2019 ALBERT ABEL DO Ot I25.5 [...] UNSPECIFIED 02/22/2019 ALBERT ABEL DO Ot Z79.4 PAYROLL COORDINATOR (CURRENT) USE OF INSULIN 02/22/2019 ALBERT ABEL [...] DO Ot I25.10 ATHSCL HEART DISEASE OF [place] CORONARY 02/26/2019 ALBERT ABEL DO Ot I25.5 [...] UNSPECIFIED 02/26/2019 ALBERT ABEL DO Ot Z79.4 CUSTODIAL (CURRENT) USE OF INSULIN 02/26/2019 ALBERT ABEL [...] Ot F41.9 ANXIETY DISORDER, UNSPECIFIED 03/04/2019 ALBERT ABLE DO Ot F43.10 POST-TRAUMATIC STRESS DISORDER, UNSPECIF 03/04/2019 ALBERT ABEL DO Ot I13.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 03/04/2019 ALBERT ABEL DO Ot I21.A1 MYOCARDIAL INFARCTION TYPE 2 03/04/2019 ALBERT ABEL DO Ot I25.10 ATHSCL HEART DISEASE OF [place] CORONARY 03/04/2019 ALBERT ABEL DO Ot I25.5 [...] 03/04/2019 PAGE OBRIEN ALBERT K Ot Z79.4 CUSTODIAL (CURRENT) USE OF INSULIN 03/04/2019 ALBERT ABEL DO Ot Z95.5 PRESENCE OF CORONARY ANGIOPLASTY IMPLANT 03/04/2019 PAGE OBRIEN ALBERT K Ot Z95.82 0 PERIPHERAL VASCULAR ANGIOPLASTY STATUS W 03/09/2019 SHILO OBRIEN FRANCA Ot 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 MELLITUS W DIABETIC REUSE TECHNICIAN 03/09/2019 DARREN LAO DOI Ot E11.51 TYPE [...] DOI Ot I25.10 ATHSCL HEART DISEASE OF [place] CORONARY 03/09/2019 SHILO OBRIEN FRANCA Ot I25.5 [...] N40.1 BENIGN PROSTATIC HYPERPLASIA WITH LOWER 03/09/2019 HSILO DO FRANCA Ot R33.8 OTHER RETENTION OF URINE 03/09/2019 SHILO OBRIEN FRANCA Ot T38.3X 5A ADVERSE EFFECT OF INSULIN AND ORAL HYPOG 03/09/2019 SHILO OBRIEN FRANCA Ot Z79.4 CUSTODIAL (CURRENT) USE OF INSULIN 03/09/2019 SHILO OBRIEN [...] J30.9 ALLERGIC RHINITIS, UNSPECIFIED 04/08/2019 RHEA BURRIS PHOTOGRAPHIC PLATEMAKER Ot J44.9 CHRONIC OBSTRUCTIVE PULMONARY DISEASE, U 04/08/2019 RHEA BURRIS PHOTOGRAPHIC PLATEMAKER Ot J90 PLEURAL EFFUSION, NOT ELSEWHERE CLASSIFI 04/08/2019 RHEA BURRIS PHOTOGRAPHIC PLATEMAKER Ot Z87.891 PERSONAL HISTORY OF NICOTINE DEPENDENCE 04/28/2019 RHEA BURRIS PHOTOGRAPHIC PLATEMAKER Ot J18.1 LOBAR PNEUMONIA, UNSPECIFIED ORGANISM 04/28/2019 RHEA BURRIS PHOTOGRAPHIC PLATEMAKER Ot J30.9 ALLERGIC RHINITIS, UNSPECIFIED 04/28/2019 RHEA BURRIS PHOTOGRAPHIC PLATEMAKER Ot J44.9 CHRONIC OBSTRUCTIVE PULMONARY DISEASE, U 04/28/2019 FATUMA, RHEA E PHOTOGRAPHIC PLATEMAKER Ot J90 PLEURAL EFFUSION, NOT ELSEWHERE CLASSIFI 04/28/2019 RHEA BURRIS PHOTOGRAPHIC PLATEMAKER Ot Z87.891 PERSONAL HISTORY OF NICOTINE DEPENDENCE 04/28/2019 MARINA MILLER, M JORDAN Ot E78 .5 HYPERLIPIDEMIA, UNSPECIFIED 04/28/2019 Jose GRAY MD Ot I10 ESSENTIAL (PRIMARY) HYPERTENSION 04/28/2019 Jose RGAY MD Ot I25.10 ATHSCL HEART DISEASE OF [place] CORONARY 04/28/2019 MARINA MILLER, M JORDAN Ot I25 .5 ISCHEMIC CARDIOMYOPATHY 04/28/2019 MARINA MILLER, Jose ORTEGA Ot I73 .9 PERIPHERAL VASCULAR DISEASE, UNSPECIFIED 04/28/2019 RHEA BURRIS APRN Ot J18.1 LOBAR PNEUMONIA, UNSPECIFIED ORGANISM 04/28/2019 RHEA BURRIS APRN Ot J30.9 ALLERGIC RHINITIS, UNSPECIFIED 04/28/2019 RHEA BURRIS APRN Ot J44.9 CHRONIC OBSTRUCTIVE PULMONARY DISEASE, U 04/28/2019 RHEA BURRIS PHOTOGRAPHIC PLATEMAKER Ot J90 PLEURAL EFFUSION, NOT ELSEWHERE CLASSIFI 04/28/2019 RHEA BURRIS PHOTOGRAPHIC PLATEMAKER Ot Z87.891 PERSONAL HISTORY OF NICOTINE DEPENDENCE 05/06/2019 MARINA MILLER, SARITA R Ot N18 .3 CHRONIC KIDNEY DISEASE, STAGE 3 (MODERAT 05/18/2019 RHEA BURRIS APRN Ot J30.9 ALLERGIC RHINITIS, UNSPECIFIED 05/18/2019 RHEA BURRIS APRN Ot J44.9 CHRONIC OBSTRUCTIVE PULMONARY DISEASE, U 05/18/2019 RHEA BURRIS PHOTOGRAPHIC PLATEMAKER Ot Z87.891 PERSONAL HISTORY OF NICOTINE DEPENDENCE 05/25/2019 MARINA MILLER, SARITA R Ot N18 .3 CHRONIC KIDNEY DISEASE, STAGE 3 (MODERAT 06/01/2019 RHEA BURRIS PHOTOGRAPHIC PLATEMAKER Ot I51.7 CARDIOMEGALY 06/01/2019 RHEA BURRIS PHOTOGRAPHIC PLATEMAKER Ot I70.0 ATHEROSCLEROSIS OF [place] 06/01/2019 RHEA BURRIS PHOTOGRAPHIC PLATEMAKER Ot J30.9 ALLERGIC RHINITIS, UNSPECIFIED 06/01/2019 RHEA BURRIS PHOTOGRAPHIC PLATEMAKER Ot J43.9 EMPHYSEMA, UNSPECIFIED 06/01/2019 [place]MA[place] ASCENCIOINE Fernando PHOTOGRAPHIC PLATEMAKER Ot J98.4 OTHER DISORDERS OF LUNG 06/01/2019 FATUMAOR[place]O ASCENCIOINE Fernando PHOTOGRAPHIC PLATEMAKER Ot R04.2 HEMOPTYSIS 06/01/2019 FATUMAOR[place]O ASCENCIOINE Fernando PHOTOGRAPHIC PLATEMAKER Ot Z87.891 PERSONAL HISTORY OF NICOTINE DEPENDENCE 06/01/2019 MARTINEZ JAVIER OBRIEN D Ot K26. 4 CHRONIC OR UNSPECIFIED DUODENAL ULCER [place] 06/01/2019 MARTINEZ EN OBRIENTT D Ot K29. 71 GASTRITIS, UNSPECIFIED, WITH BLEEDING 06/03/2019 [place] ASCENCIOINE E PHOTOGRAPHIC PLATEMAKER Ot I51.7 CARDIOMEGALY 06/03/2019 [place] ASCENCIOINE Fernando PHOTOGRAPHIC PLATEMAKER Ot I70.0 ATHEROSCLEROSIS OF [place] 06/03/2019 FATUMA, RHEA E PHOTOGRAPHIC PLATEMAKER Ot J30.9 ALLERGIC RHINITIS, UNSPECIFIED 06/03/2019 FATUMA[place]O ASCENCIOINE E PHOTOGRAPHIC PLATEMAKER Ot J43.9 EMPHYSEMA, UNSPECIFIED 06/03/2019 FATUMA[place] ASCENCIOINE E PHOTOGRAPHIC PLATEMAKER Ot J98.4 OTHER DISORDERS OF LUNG 06/03/2019 [place]UMA[place] ASCENCIOINE Fernando PHOTOGRAPHIC PLATEMAKER Ot R04.2 HEMOPTYSIS 06/03/2019 FATUMA[place] ASCENCIOINE Fernando PHOTOGRAPHIC PLATEMAKER Ot Z87.891 PERSONAL HISTORY OF NICOTINE DEPENDENCE 06/20/2019 [place] ASCENCIOINE Fernando PHOTOGRAPHIC PLATEMAKER Ot I51.7 CARDIOMEGALY 06/20/2019 [place]UMA[place] ASCENCIOINE Fernando PHOTOGRAPHIC PLATEMAKER Ot I70.0 ATHEROSCLEROSIS OF [place] 06/20/2019 FATUMA[place] ASCENCIOINE Fernando PHOTOGRAPHIC PLATEMAKER Ot J30.9 ALLERGIC RHINITIS, UNSPECIFIED 06/20/2019 FATUMA[place] ASCENCIOINE Fernando PHOTOGRAPHIC PLATEMAKER Ot J43.9 EMPHYSEMA, UNSPECIFIED 06/20/2019 [place] Fernando PHOTOGRAPHIC PLATEMAKER Ot J98.4 OTHER DISORDERS OF LUNG 06/20/2019 [place] ASCENCIOINE Fernando PHOTOGRAPHIC PLATEMAKER Ot R04.2 HEMOPTYSIS 06/20/2019 FATUMAOR[place] ASCENCIOINE Fernando PHOTOGRAPHIC PLATEMAKER Ot Z87.891 PERSONAL HISTORY OF NICOTINE DEPENDENCE 09/01/2019 JAVIER MARTINEZ DO D Ot K26. 4 CHRONIC OR UNSPECIFIED DUODENAL ULCER [place] 09/01/2019 EN MARTINEZ DOTT D Ot K29. 71 GASTRITIS, UNSPECIFIED, WITH BLEEDING 09/01/2019 Jose GRAY MD Ot E78 .5 HYPERLIPIDEMIA, UNSPECIFIED 09/01/2019 Jose GRAY MD JORDAN Ot I10 ESSENTIAL (PRIMARY) HYPERTENSION 09/01/2019 MARINA MILLER, Jose ORTEGA Ot I25.10 ATHSCL HEART DISEASE OF [place] CORONARY 09/01/2019 MARINA MILLER, Jose ORTEGA Ot I25 .5 ISCHEMIC CARDIOMYOPATHY 09/01/2019 MARINA MILLER, Jose ORTEGA Ot I73 .9 PERIPHERAL VASCULAR DISEASE, UNSPECIFIED 09/01/2019 RHEA BURRIS PHOTOGRAPHIC PLATEMAKER Ot J30.9 ALLERGIC RHINITIS, UNSPECIFIED 09/01/2019 RHEA BURRIS PHOTOGRAPHIC PLATEMAKER Ot J44.9 CHRONIC OBSTRUCTIVE PULMONARY DISEASE, U 09/01/2019 RHEA BURRIS PHOTOGRAPHIC PLATEMAKER Ot Z87.891 PERSONAL HISTORY OF NICOTINE DEPENDENCE 09/01/2019 RHEA BURRIS PHOTOGRAPHIC PLATEMAKER Ot J18.1 LOBAR PNEUMONIA, UNSPECIFIED ORGANISM 09/01/2019 RHEA BURRIS PHOTOGRAPHIC PLATEMAKER Ot J30.9 ALLERGIC RHINITIS, UNSPECIFIED 09/01/2019 RHEA BURRIS PHOTOGRAPHIC PLATEMAKER Ot J44.9 CHRONIC OBSTRUCTIVE PULMONARY DISEASE, U 09/01/2019 RHEA BURRIS PHOTOGRAPHIC PLATEMAKER Ot J90 PLEURAL EFFUSION, NOT ELSEWHERE CLASSIFI 09/01/2019 [place]O BURRISINE E PHOTOGRAPHIC PLATEMAKER Ot Z87.891 PERSONAL HISTORY OF NICOTINE DEPENDENCE 09/01/2019 RHEA BURRIS PHOTOGRAPHIC PLATEMAKER Ot I51.7 CARDIOMEGALY 09/01/2019 RHEA BURRIS PHOTOGRAPHIC PLATEMAKER Ot I70.0 ATHEROSCLEROSIS OF [place] 09/01/2019 RHEA BURRIS PHOTOGRAPHIC PLATEMAKER Ot J30.9 ALLERGIC RHINITIS, UNSPECIFIED 09/01/2019 RHEA BURRIS PHOTOGRAPHIC PLATEMAKER Ot J43.9 EMPHYSEMA, UNSPECIFIED 09/01/2019 RHEA BURRIS PHOTOGRAPHIC PLATEMAKER Ot J98.4 OTHER DISORDERS OF LUNG 09/01/2019 RHEA BURRIS PHOTOGRAPHIC PLATEMAKER Ot R04.2 HEMOPTYSIS 09/01/2019 RHEA BURRIS PHOTOGRAPHIC PLATEMAKER Ot Z87.891 PERSONAL HISTORY OF NICOTINE DEPENDENCE [...] ORTEGA Ot I25.10 ATHSCL HEART DISEASE OF [place] CORONARY 09/06/2019 MARINA MILLER, Jose ORTEGA Ot I25 .5 ISCHEMIC CARDIOMYOPATHY 09/06/2019 MARINA MILLER, Jose [place] Ot I73 .9 PERIPHERAL VASCULAR DISEASE, UNSPECIFIED 09/06/2019 [place] BURRISINE E PHOTOGRAPHIC PLATEMAKER Ot J30.9 ALLERGIC RHINITIS, UNSPECIFIED 09/06/2019 [place] BURRISINE E PHOTOGRAPHIC PLATEMAKER Ot J44.9 CHRONIC OBSTRUCTIVE PULMONARY DISEASE, U 09/06/2019 RHEA BURRIS PHOTOGRAPHIC PLATEMAKER Ot Z87.891 PERSONAL HISTORY OF NICOTINE DEPENDENCE 09/06/2019 RHEA BURRIS PHOTOGRAPHIC PLATEMAKER Ot J18.1 LOBAR PNEUMONIA, UNSPECIFIED ORGANISM 09/06/2019 [place] BURRISINE E PHOTOGRAPHIC PLATEMAKER Ot J30.9 ALLERGIC RHINITIS, UNSPECIFIED 09/06/2019 [place] BURRISINE E PHOTOGRAPHIC PLATEMAKER Ot J44.9 CHRONIC OBSTRUCTIVE PULMONARY DISEASE, U 09/06/2019 [place] BURRISINE Fernando PHOTOGRAPHIC PLATEMAKER Ot J90 PLEURAL EFFUSION, NOT ELSEWHERE CLASSIFI 09/06/2019 [place] BURRISINE E PHOTOGRAPHIC PLATEMAKER Ot Z87.891 PERSONAL HISTORY OF NICOTINE DEPENDENCE 09/06/2019 RHEA BURRIS PHOTOGRAPHIC PLATEMAKER Ot I51.7 CARDIOMEGALY 09/06/2019 RHEA BURRIS PHOTOGRAPHIC PLATEMAKER Ot I70.0 ATHEROSCLEROSIS OF [place] 09/06/2019 RHEA BURRIS PHOTOGRAPHIC PLATEMAKER Ot J30.9 ALLERGIC RHINITIS, UNSPECIFIED 09/06/2019 [place] BURRISINE E PHOTOGRAPHIC PLATEMAKER Ot J43.9 EMPHYSEMA, UNSPECIFIED 09/06/2019 [place] BURRISINE E PHOTOGRAPHIC PLATEMAKER Ot J98.4 OTHER DISORDERS OF LUNG 09/06/2019 [place] BURRISINE Fernando PHOTOGRAPHIC PLATEMAKER Ot R04.2 HEMOPTYSIS 09/06/2019 [place] BURRISINE E PHOTOGRAPHIC PLATEMAKER Ot Z87.891 PERSONAL HISTORY OF NICOTINE DEPENDENCE 09/06/2019 MARINA MILLER, SARITA R Ot N18 .3 CHRONIC KIDNEY DISEASE, STAGE 3 (MODERAT 09/08/2019 RHEA BURRIS PHOTOGRAPHIC PLATEMAKER Ot J44.9 CHRONIC OBSTRUCTIVE PULMONARY DISEASE, U 09/08/2019 RHEA BURRIS PHOTOGRAPHIC PLATEMAKER Ot K82.8 OTHER SPECIFIED DISEASES OF GALLBLADDER 09/08/2019 RHEA BURRIS PHOTOGRAPHIC PLATEMAKER Ot Z87.891 PERSONAL HISTORY OF NICOTINE DEPENDENCE 10/14/2019 RHEA BURRIS PHOTOGRAPHIC PLATEMAKER Ot J44.9 CHRONIC OBSTRUCTIVE PULMONARY DISEASE, U 10/14/2019 RHEA BURRIS PHOTOGRAPHIC PLATEMAKER Ot K82.8 OTHER SPECIFIED DISEASES OF [place] 10/14/2019 RHEA BURRIS PHOTOGRAPHIC PLATEMAKER Ot Z87.891 PERSONAL HISTORY OF NICOTINE DEPENDENCE 11/07/2019 MARINA MILLER, Jose ORTEGA Ot 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 MELLITUS W DIABETIC REUSE TECHNICIAN 11/07/2019 Jose GRAY MD Ot E78 .5 HYPERLIPIDEMIA, UNSPECIFIED 11/07/2019 Jose GRAY MD Ot I13 .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 11/07/2019 Jose GRAY MD Ot I25.10 ATHSCL HEART DISEASE OF [place] CORONARY 11/07/2019 Jose GRAY MD Ot I25 .5 ISCHEMIC CARDIOMYOPATHY 11/07/2019 Jose GRAY MD Ot 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 11/07/2019 Jose GRAY MD Ot I73 .9 PERIPHERAL VASCULAR DISEASE, UNSPECIFIED 11/07/2019 Jose GRAY MD Ot I74 .3 EMBOLISM AND THROMBOSIS OF ARTERIES OF T 11/07/2019 Jose GRAY MD Ot I74 .5 EMBOLISM AND THROMBOSIS OF ILIAC ARTERY 11/07/2019 Jose GRAY MD Ot I77 .1 STRICTURE OF ARTERY 11/07/2019 Jose GRAY MD Ot J44 .9 CHRONIC OBSTRUCTIVE PULMONARY DISEASE, U 11/07/2019 Jose GRAY MD Ot N18 .3 CHRONIC KIDNEY DISEASE, STAGE 3 (MODERAT 11/07/2019 Jose GRAY MD Ot 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 11/07/2019 Jose GRAY MD, Ot Z79 .4 PAYROLL COORDINATOR (CURRENT) USE OF INSULIN 11/07/2019 Jose GRAY MD, Ot Z79.82 CUSTODIAL (CURRENT) USE OF ASPIRIN 11/07/2019 Jose GRAY MD, Ot Z79.899 OTHER CUSTODIAL (CURRENT) DRUG THERAPY 11/07/2019 Jose GRAY MD, Ot Z80 .9 FAMILY HISTORY OF MALIGNANT NEOPLASM, UN 11/07/2019 Jose GRAY MD, Ot Z86.73 PRSNL HX OF TIA (TIA), AND CEREB INFRC W 11/07/2019 Jose GRAY MD, Ot Z87.891 PERSONAL HISTORY OF NICOTINE DEPENDENCE 11/09/2019 Jose GRAY MD, Ot 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 MELLITUS W DIABETIC REUSE TECHNICIAN 11/09/2019 Jose GRAY MD, Ot E78 .5 HYPERLIPIDEMIA, UNSPECIFIED 11/09/2019 Jose GRAY MD, Ot I13 .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 11/09/2019 Jose GRAY MD, Ot I25.10 ATHSCL HEART DISEASE OF [place] CORONARY 11/09/2019 Jose GRAY MD, Ot I25 .5 ISCHEMIC CARDIOMYOPATHY 11/09/2019 Jose GRAY MD, Ot 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 11/09/2019 Jose GRAY MD, Ot I73 .9 PERIPHERAL VASCULAR DISEASE, UNSPECIFIED 11/09/2019 Jose GRAY MD, Ot I74 .3 EMBOLISM AND THROMBOSIS OF ARTERIES OF T 11/09/2019 Jose GRAY MD, Ot I74 .5 EMBOLISM AND THROMBOSIS OF ILIAC ARTERY 11/09/2019 Jose GRAY MD, Ot I77 .1 STRICTURE OF ARTERY 11/09/2019 Jose GRAY MD, Ot J44 .9 CHRONIC OBSTRUCTIVE PULMONARY DISEASE, U 11/09/2019 Jose GRAY MD, Ot N18 .3 CHRONIC KIDNEY DISEASE, STAGE 3 (MODERAT 11/09/2019 Jose GRAY MD, Ot 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 11/09/2019 Jose GRAY MD, Ot Z79 .4 PAYROLL COORDINATOR (CURRENT) USE OF INSULIN 11/09/2019 Jose GRAY MD, Ot Z79.82 CUSTODIAL (CURRENT) USE OF ASPIRIN 11/09/2019 Jose GRAY MD, Ot Z79.899 OTHER CUSTODIAL (CURRENT) DRUG THERAPY 11/09/2019 Jose GRAY MD, Ot Z80 .9 FAMILY HISTORY OF MALIGNANT NEOPLASM, UN 11/09/2019 Jose GRAY MD, Ot Z86.73 PRSNL HX OF TIA (TIA), AND CEREB INFRC W 11/09/2019 Jose GARY MD, Ot Z87.891 PERSONAL HISTORY OF NICOTINE DEPENDENCE 11/23/2019 Jose GRAY MD, Ot 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 MELLITUS W DIABETIC REUSE TECHNICIAN 11/23/2019 Jose GRAY MD, Ot E78 .5 HYPERLIPIDEMIA, UNSPECIFIED 11/23/2019 Jose GRAY MD, Ot I13 .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 11/23/2019 Jose GRAY MD, Ot I25.10 ATHSCL HEART DISEASE OF [place] CORONARY 11/23/2019 Jose GRAY MD, Ot I25 .5 ISCHEMIC CARDIOMYOPATHY 11/23/2019 Jose GRAY MD, Ot 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 11/23/2019 Jose GRAY MD, Ot I73 .9 PERIPHERAL VASCULAR DISEASE, UNSPECIFIED 11/23/2019 Jose GRAY MD, Ot I74 .3 EMBOLISM AND THROMBOSIS OF ARTERIES OF T 11/23/2019 Jose GRAY MD, Ot I74 .5 EMBOLISM AND THROMBOSIS OF ILIAC ARTERY 11/23/2019 Jose GRAY MD, Ot I77 .1 STRICTURE OF ARTERY 11/23/2019 Jose GRAY MD, Ot J44 .9 CHRONIC OBSTRUCTIVE PULMONARY DISEASE, U 11/23/2019 Jose GRAY MD, Ot N18 .3 CHRONIC KIDNEY DISEASE, STAGE 3 (MODERAT 11/23/2019 Jose GRAY MD, Ot 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 11/23/2019 MARINA MILLER, Jose ORTEGA Ot Z79 .4 PAYROLL COORDINATOR (CURRENT) USE OF INSULIN 11/23/2019 Jose GRAY MD, Ot Z79.82 CUSTODIAL (CURRENT) USE OF ASPIRIN 11/23/2019 Jose GRAY MD, Ot Z79.899 OTHER CUSTODIAL (CURRENT) DRUG THERAPY 11/23/2019 Jose GRAY MD, Ot Z80 .9 FAMILY HISTORY OF MALIGNANT NEOPLASM, UN 11/23/2019 Jose GRAY MD, Ot Z86.73 PRSNL HX OF TIA (TIA), AND CEREB INFRC W 11/23/2019 Jose GRAY MD, Ot Z87.891 PERSONAL HISTORY OF NICOTINE DEPENDENCE Procedures Code Description [place] [address] A1C (IN-HOUSE) 09/21/2012 30187 A1C (IN-HOUSE) 01/30/2014 31710 MICR O ALBUMIN-IN HOUSE 01/30/2014 65342 MICR OALBUMIN 01/30/2014 30425 ROUT INE VENIPUNCTURE 02/20/2014 57807 CMP 02/20/2014 91316 LIPI D PANEL 02/20/2014 [id number] GF R CALC (RESULT ONLY) 02/20/2014 11996 CBC 02/20/2014 [id number] EX CISION OF ESOPHAGOGASTRIC JUNCTION, EN 07/08/2018 [id number] EX CISION OF STOMACH, PYLORUS, ENDO, DIAG 07/08/2018 [id number] EX CISION OF DUODENUM, ENDO, DIAGN 07/08/2018 [id number] DI LATION OF 1 COR ART WITH 2 DRUG-ELUT, 07/16/2018 [id number] ME ASURE OF CARDIAC SAMPL PRESSURE, L H 07/16/2018 [id number] FL UOROSCOPY OF MULT COR ART USING L OSM 07/16/2018 [id number] FL UOROSCOPY OF THORACIC AORTA USING LOW 07/16/2018 [id number] FL UOROSCOPY OF THORACO- ABDOMINAL AORTA U 07/16/2018 [id number] OC CLUSION OF DUODENUM WITH INTRALUMINAL 07/23/2018 [id number] CO NTROL BLEEDING IN GASTROINTESTINAL TRA 07/23/2018 [id number] IN SERTION OF OTHER DEVICE INTO GASTROINT 07/23/2018 [id number] IN TRODUCTION OF OTH THERAP SUBST INTO LO 07/23/2018 [id number] CO NTROL BLEEDING IN GASTROINTESTINAL TRA 07/29/2018 [id number] IN TRODUCTION OF OTH THERAP SUBST INTO LO 07/29/2018 [id number] CO NTROL BLEEDING IN GASTROINTESTINAL TRA 07/31/2018 [id number] IN TRODUCTION OF OTH THERAP SUBST INTO LO 07/31/2018 [id number] IN SPECTION OF BLADDER, ENDO 02/25/2019 Results [...] ABO+Rh group OP NRG Transfusion band number [id number] NRG Blood group antibody screen NEGATIVE NR [...] - 07/07/18 05:15 Bacterial blood culture NG NRG Bacterial blood culture - 07/07/18 05:24 Bacterial blood culture NG NRG Capillary blood glucose measurement [...] blood hemoglobin and hematocrit pa rachel - 07/07/18 13:13 Venous blood hemoglobin measurement [...] blood hemoglobin and hematocrit pa rachel - 07/07/18 23:33 Venous blood hemoglobin measurement [...] blood hemoglobin and hematocrit pa rachel - 07/08/18 15:41 Venous blood hemoglobin measurement [...] complete blood count (he mogram) panel - 07/10/18 04:05 Blood leukocytes [...] ABO+Rh group OP NRG Transfusion band number [id number] NRG Blood group antibody screen NEGATIVE NR [...] mg/dL 70-110 Whole blood hemoglobin and hematocrit [facility] - 07/26/18 12:25 Venous blood hemoglobin measurement (mass/volume) 8.3 g/dL 13.3-17.7 Blood hematocrit (volume fraction) 26 % 40-54 Capillary blood glucose measurement by g lucometer (mass/volume) - 07/26/18 16:09 Capillary blood glucose measurement by glucometer (mas s/volume) 197 mg/dL 70-110 Whole blood hemoglobin and hematocrit [facility] - 07/26/18 18:15 Venous blood hemoglobin measurement [...] mg/dL 70-110 Whole blood hemoglobin and hematocrit [facility] - 07/27/18 06:05 Venous blood hemoglobin measurement (mass/volume) 7.4 g/dL 13.3-17.7 Blood hematocrit (volume fraction) 23 % 40-54 Whole blood basic metabolic panel - 4 09:15 Serum or plasma sodium measurement (moles/volume) [...] mg/dL 70-110 Whole blood hemoglobin and hematocrit [facility] 07/27/18 16:31 Venous blood hemoglobin measurement (mass/volume) 7.7 g/dL 13.3-17.7 Blood hematocrit (volume fraction) 24 % 40-54 Capillary blood glucose measurement by g lucometer (mass/volume) - 07/27/18 21:07 Capillary blood glucose measurement by glucometer (mas s/volume) 226 mg/dL 70-110 Whole blood hemoglobin and hematocrit [facility] 07/28/18 06:01 Venous blood hemoglobin measurement (mass/volume) [...] NRG Blood type T Indirect antibody screen [facility] - 07/28/18 06:01 ABO+Rh group OP NRG Transfusion band number [id number] NRG Blood group antibody screen NEGATIVE NR [...] mg/dL 70-110 Whole blood hemoglobin and hematocrit [facility] - 07/28/18 16:33 Venous blood hemoglobin measurement [...] complete blood count ( mogram) panel - 07/30/18 05:30 Blood leukocytes [...] complete blood count (he mogram) panel - 07/31/18 05:25 Blood leukocytes [...] rachel - 07/31/18 07:03 ABO+Rh group OP NR Transfusion band number [id number] NR Blood group antibody screen NEGATIVE NR [...] complete blood count ( mogram) panel - 08/02/18 17:10 Blood leukocytes [...] ABO+Rh group OP NRG Transfusion band number [id number] NR Blood group antibody screen NEGATIVE NR G Automated blood complete blood count ( mogram) panel - 12/02/18 08:38 Blood leukocytes [...] OF GROWTH Isolated NRG Bacterial blood culture [id number] NRG Bacterial blood culture - 03/07/19 12:33 Bacterial [...] by glucometer (mas s/volume) 206 mg/dL 70-110 [id number] - 04/06/19 11:20 Serum or plasma urea [...] G Measurement of body temperature 96.6 NRG Methicillin resistant Staphylococcus aur eus (MRSA) screening culture - 11/07/19 12:24 Methicillin resistant Staphylococcus aureus (MRSA) scr eening culture NEG NRG Encounters ACCT No. Visit Date/Time Discharge Status Pt. Type Provider Facility Loc./Unit Complaint [id number] 06/20/2014 16:14:00 06/20/2014 23:59: 59 CLS Outpatient ABEL ALBERT OBRIEN Rashi [id number] 02/20/2014 12:03:00 02/20/2014 23:59: 59 CLS Outpatient RONDA STAHL APRN [id number] 01/30/2014 11:52:00 01/30/2014 23:59: 59 CLS Outpatient RONDA STALH APRN [id number] 06/15/2013 00:00:00 06/15/2013 23:59: 59 CLS Outpatient RONDA STAHL APRN [id number] 09/21/2012 14:41:00 09/21/2012 23:59: 59 CLS Outpatient RONDA STAHL APRN [id number] 09/21/2012 14:41:00 09/21/2012 23:59: 59 CLS Outpatient [id number] 06/15/2012 13:27:00 06/15/2012 23:59: 59 CLS Outpatient [id number] 06/15/2012 13:27:00 06/15/2012 23:59:5 9 CLS Outpatient [id number] 04/04/2013 12:41:00 Document Registration [id number] 10/27/2019 13:40:00 10/27/2019 23:59:5 9 CLS Outpatient RONDA STAHL APRN [facility] [id number] 06/24/2018 09:00:00 Document Registration [id number] 11/07/2019 11:53:00 20:49:00 DIS Outpatient Jose GRAY MD [facility] CATH RESTING RT LEG DISCOMFO RT,SEVERE PAD [id number] 09/07/2019 13:08:00 23:59:59 CLS Outpatient RHEA BURRIS APRN [facility] RAD DYSPNEA,COPD,HX OF SMOKING [id number] 05/27/2019 10:15:00 23:59:59 CLS Outpatient RHEA BURRIS APRN [facility] RAD DYSPNEA [id number] 05/04/2019 09:05:00 23:59:59 CLS Outpatient SARITA GRAY MD [facility] RAD CHRONIC KIDNEY DISEASE STAGE 3 [id number] 04/28/2019 12:07:00 23:59:59 CLS Outpatient RHEA BURRIS APRN [facility] RT DYSPNEA [id number] 04/06/2019 11:10:00 23:59:59 CLS Outpatient RHEA BURRIS APRN [facility] RAD DYSPNEA [id number] 03/07/2019 14:05:00 15:22:00 DIS Inpatient LAO DO, FRANCA [facility] 4TH HYPOGLYCEMIA;UNRESPONSI VE STATE [id number] 02/25/2019 12:40:00 13:30:00 DIS Inpatient ALBERT ABEL DO, [facility] 4TH CHF EXACERBATION [id number] 12/09/2018 10:09:00 11:25:00 DIS Outpatient Jose GRAY MD [facility] CATH CLAUDICATION,SEVERE [id number] 12/02/2018 08:06:00 10:58:00 DIS Outpatient Jose GRAY MD [facility] CATH SYMPTOMATIC SEVERE LIFE STYLE LIMITING CLAUDICATION [id number] 12/01/2018 11:37:00 23:59:59 CLS Outpatient Jose GRAY MD [facility] CARD CAD [id number] 08/07/2018 08:46:00 11:51:00 DIS Emergency MAMI MILLER, DERIAN Sawant [facility] ER DIARRHEA W BLOO D [id number] 07/07/2018 01:02:00 13:00:00 DIS Inpatient KWASI MILLER, JOHN Wood [facility] 4TH GI BLEED,HYPERGLYCEMIA, RENAL FAILURE,LEUKOCYTOSIS [id number] 06/24/2018 09:25:00 23:59:59 CLS Outpatient JAVIER MARTINEZ DO [facility] ENDO EGD [id number] 09/12/2020 10:15:00 P RHEA Camacho APRN [facility] RAD COPD,UNSPECIFIED
[2020-01-27] MEDS ORDERED: NS IV 1000 ML 1,000 ML IV SCH (21:13)
[2020-01-27] MEDS ORDERED: ONDANSETRON 4 MG/2 ML (SDV) Z0FRAN IVP ONE (21:15)
[2020-01-27] MEDS ORDERED: inSUlin (REGULAR) HUMAN 1 UNIT/0.01 ML (CHARGE PER UNIT) SC ONE (21:15)
--- NOTE | 2020-01-27 21:20 | ED Fall/Injury ---
General Chief Complaint: Trauma-Non Activation Stated Complaint: FELL, WEAKNESS Source: patient, EMS Exam Limitations: no limitations History of Present Illness Date Seen by Provider: Jan 27, 2020 Time Seen by Provider: 21:00 Initial Comments Patient presents to ER by EMS from home with chief complaint that sometime last night about 24 hours ago he fell because his legs are so weak and was unable to get back up to his medical arm. He lives alone at the [facility]. He does have a caregiver comes daily but she missed today. He is not having any pain anywhere but he has had nausea vomiting diarrhea for the past 2 days and thinks this contributed to his overall weakness. Most recently Dr. Chandra his business integration manager attempted to do stents in bilateral legs for peripheral arterial disease without success. He does have 3 stents already in his legs as well as a few stents in his coronary arteries. He is having no chest pain. He has mild nausea now. He says everything he tried to eat or drink or take medicines he vomited up. He is a diabetic on long-acting insulin only. He follows with Dr. Chandra, nephrology for chronic kidney disease only. He follows nurse practitioner Thaddeus Guerra for primary care. Patient denies any objective fevers but he said for years she will get chills whenever he has a PTSD/panic attack. He takes furosemide 20 mg daily and Levemir 50 units at night. No abdominal surgeries but he's had multiple scopes by Dr. Acharya for ulcers in the past which seemed to have improved. Allergies and Home Medications Allergies Coded Allergies: No Known Drug Allergies (Verified , 07/08/18) Home Medications Acetaminophen 500 Mg Tablet, 500-1,000 MG PO Q6H PRN for PAIN-MILD, (Reported) Albuterol Sulfate 6.7 Gm Hfa.aer.ad, 2 PUFF INH Q6H PRN for SHORTNESS OF BREATH, (Reported) Sbcdn-W-Mvvapbgqnlgdu 150 Unit Tablet, 150 UNIT PO QID, (Reported) Aspirin 81 Mg Tablet.dr, 81 MG PO DAILY, (Reported) Atorvastatin Calcium 80 Mg Tablet, 80 MG PO DAILY, (Reported) Bisacodyl 5 Mg Tablet.dr, 10 MG PO DAILY PRN for CONSTIPATION-4TH LINE, (Reported) Budesonide/Formoterol Fumarate 10.2 Gm Hfa.aer.ad, 2 PUFF IH BID, (Reported) Caffeine 200 Mg Tablet, 200-400 MG PO BID PRN for DROWSINESS, (Reported) Diphenhydramine HCl 25 Mg Tablet, 50 MG PO HS PRN for ALLERGIES/ANXIETY, (R eported) Finasteride 5 Mg Tablet, 5 MG PO DAILY, (Reported) Fish Oil/Borage/Flax/Om3,6,9#1 400 Mg Capsule, 1 CAP PO BID, (Reported) Furosemide 20 Mg Tablet, 20 MG PO DAILY, (Reported) Gabapentin 300 Mg Capsule, 300 MG PO DAILY, (Reported) Gabapentin 300 Mg Capsule, 600 MG PO HS, (Reported) Guaifenesin 400 Mg Tablet, 400 MG PO PRN, (Reported) Insulin Determir 1,000 Units/10 Ml Soln, 50 UNITS SQ HS, (Reported) Lisinopril 10 Mg Tablet, 10 MG PO DAILY, (Reported) Metoprolol Succinate 25 Mg Tab.er.24h, 25 MG PO BID, (Reported) Multivitamin 1 Each Tablet, 1 EACH PO DAILY AT NOON, (Reported) Oxymetazoline HCl 15 Ml Mist, 1 SPRAY NS PRN, (Reported) Pantoprazole Sodium 40 Mg Tablet.dr, 40 MG PO BID, (Reported) Paroxetine HCl 37.5 Mg Tab.er.24h, 37.5 MG PO HS, (Reported) Paroxetine HCl 12.5 Mg Tab.er.24h, 12.5 MG PO DAILY, (Reported) Potassium Chloride 10 Meq Tablet.er, 10 MEQ PO BID, (Reported) Prasugrel HCl 10 Mg Tablet, 10 MG PO DAILY, (Reported) Prazosin HCl 5 Mg Capsule, 10 MG PO HS, (Reported) TAKES 2 (5MG) CAPSULES Sucralfate 1 Gm Tablet, 1 GM PO ACHS, (Reported) Tramadol HCl 50 Mg Tablet, 50 MG PO HS PRN for PAIN-MODERATE (5-7), (Reported) Umeclidinium [place] 62.5 Mcg Blst.w.dev, 1 PUFF INH DAILY, (Reported) [Iron] , 65 MG PO DAILY AT NOON, (Reported) Patient Home Medication List Home Medication List Reviewed: Yes Review of Systems Review of Systems Constitutional: No chills, No fever, No malaise Eyes: Denies Blindness, Denies Blurred Vision Ears, Nose, Mouth, Throat: denies ear pain, denies ear discharge Respiratory: No cough, No short of breath Cardiovascular: No chest pain, No edema Gastrointestinal: abdominal pain (earlier in the day diffuse), constipation, diarrhea, nausea, vomiting Genitourinary: No dysuria, No frequency, No pain Musculoskeletal: No back pain, No joint pain All Other Systems Reviewed Negative Unless Noted: Yes Past Xghbkrr-Qxbocb-Vezcam Hx Patient Social History Alcohol Use: Occasionally Uses Alcohol Beverage of Choice: Beer Recreational Drug Use: No Smoking Status: Current Everyday Smoker Type Used: Cigarettes 2nd Hand Smoke Exposure: No Recent Foreign Travel: No Contact w/Someone Who Travel: No Recent Hopitalizations: Yes (HEART CATH) Immunizations Up To Date Tetanus Booster (TDap): Unknown Date of Pneumonia Vaccine: Dec 02, 2016 Date of Influenza Vaccine: May 24, 2019 Seasonal Allergies Seasonal Allergies: No Past Medical History Surgeries: Yes Abdominal, Cardiac, Coronary Stent Respiratory: Yes (CONT O2 AT NIGHT) Asthma, COPD Currently Using CPAP: No Currently Using BIPAP: No Cardiac: Yes Atrial Fibrillation, Cardiomyopathy, Coronary Artery Disease, Hypertension, Peripheral Vascular Neurological: Yes (PTSD) Sexually Transmitted Disease: No HIV/AIDS: No Genitourinary: Yes Benign Prostatic Hyperpl, Kidney Infection, Prostate Problems, Renal Failure Gastrointestinal: Yes (GI BLEED AUG 2018) Gastrointestinal Bleed, Irritable Bowel Musculoskeletal: Yes Back Injury Endocrine: Yes Diabetes, Insulin dep HEENT: Yes (Are likely dry eyes) Loss of Vision: Bilateral Hearing Impairment: Denies Cancer: No Psychosocial: Yes Anxiety, PTSD Integumentary: No Blood Disorders: No Adverse Reaction/Blood Tranf: No Family Medical History Asthma Cardiovascular disease Completed stroke Dementia Hypertension Myocardial infarction Respiratory disorder Visual disorder No Pertinent Family Hx Physical Exam Vital Signs Vital Signs - First Documented 01/27/20 21:03 Temp 36.4 Pulse 89 Resp 17 B/P (MAP) 105/58 (74) O2 Delivery Room Air Capillary Refill : Height, Weight, BMI Height: 5'8.00" Weight: 192lbs. 0.0oz. 87.592213az; 32.32 BMI Method:Stated General Appearance: mild distress, other (disheveled, covered in feces) HEENT: PERRL/EOMI, pharynx normal Neck: full range of motion, supple, normal inspection Cardiovascular: normal peripheral pulses, regular rate, rhythm Respiratory: lungs clear, normal breath sounds, no respiratory distress, no accessory muscle use Peripheral Pulses: 0 Dorsalis Pedis (R) (dopplerable); 1+ Left Dors-Pedis (L), 1+ Radial Pulses (R), 1+ Radial Pulses (L) Gastrointestinal: normal bowel sounds, non tender, soft, no organomegaly Extremities: normal range of motion, non-tender, normal inspection Neurologic/Psychiatric: alert, normal mood/affect, oriented x 3 Skin: normal color, warm/dry Dawit Coma Score Best Eye Response: (4) Open Spontaneously Best Verbal Response: (5) Oriented Best Motor Response: (6) Obeys Commands [place] Total: 15 Progress/Results/Core Measures Results/Orders Lab Results Laboratory Tests Test 01/27/20 21:15 01/27/20 21:18 01/27/20 23:48 Range/Units White Blood Count 15.7 H 4.3-11.0 10^3/uL Red Blood Count 4.52 4.35-5.85 10^6/uL Hemoglobin 13.7 13.3-17.7 G/DL Hematocrit 41 40-54 % Mean Corpuscular Volume 92 80-99 FL Mean Corpuscular Hemoglobin 30 25-34 PG Mean Corpuscular Hemoglobin Concent 33 32-36 G/DL Red Cell Distribution Width 14.8 H 10.0-14.5 % Platelet Count 228 130-400 10^3/uL Mean Platelet Volume 9.7 7.4-10.4 FL Neutrophils (%) (Auto) 85 H 42-75 % Lymphocytes (%) (Auto) 6 L 12-44 % Monocytes (%) (Auto) 9 0-12 % Eosinophils (%) (Auto) 0 0-10 % Basophils (%) (Auto) 0 0-10 % Neutrophils # (Auto) 13.3 H 1.8-7.8 X 10^3 Lymphocytes # (Auto) 1.0 1.0-4.0 X 10^3 Monocytes # (Auto) 1.4 H 0.0-1.0 X 10^3 Eosinophils # (Auto) 0.0 0.0-0.3 10^3/uL Basophils # (Auto) 0.0 0.0-0.1 10^3/uL Neutrophils % (Manual) 82 % Lymphocytes % (Manual) 5 % Monocytes % (Manual) 6 % Eosinophils % (Manual) 0 % Basophils % (Manual) 0 % Band Neutrophils 7 % Anisocytosis SLIGHT Macrocytosis SLIGHT Sodium Level 139 135-145 MMOL/L Potassium Level 5.3 H 3.6-5.0 MMOL/L Chloride Level 103 98-107 MMOL/L Carbon Dioxide Level 20 L 21-32 MMOL/L Anion Gap 16 H 5-14 MMOL/L Blood Urea Nitrogen 46 H 7-18 MG/DL Creatinine 4.40 H 0.60-1.30 MG/DL Estimat Glomerular Filtration Rate 13 BUN/Creatinine Ratio 10 Glucose Level 242 H 70-105 MG/DL Calcium Level 8.5 8.5-10.1 MG/DL Corrected Calcium 8.7 8.5-10.1 MG/DL Magnesium Level 2.4 1.6-2.4 MG/DL Total Bilirubin 0.8 0.1-1.0 MG/DL Aspartate Amino Transf (AST/SGOT) 156 H 5-34 U/L Alanine Aminotransferase (ALT/SGPT) 70 H 0-55 U/L Alkaline Phosphatase 111 40-136 U/L Total Creatine Kinase 92418 H 30-200 U/L Troponin I 0.147 H <0.028 NG/ML C-Reactive Protein High Sensitivity 5.41 H 0.00-0.50 MG/DL Total Protein 6.9 6.4-8.2 GM/DL Albumin 3.8 3.2-4.5 GM/DL Serum Alcohol < 10 <10 MG/DL Glucometer 235 H 196 H 70-110 MG/DL My Orders Orders - ADE COLLINS Cbc With Automated Diff (01/27/20 21:13) Comprehensive Metabolic Panel (01/27/20 21:13) Hs C Reactive Protein (01/27/20 21:13) Troponin I (01/27/20 21:13) Continuous Ekg Monitoring (01/27/20 21:13) Ekg Tracing (01/27/20 21:13) Chest 1 View, Ap/Pa Only (01/27/20 21:13) Ct Abdomen/Pelvis Wo (01/27/20 21:13) Ua Culture If Indicated (01/27/20 21:13) Creatine Kinase (01/27/20 21:13) Blood Culture (01/27/20 21:13) Ed Iv/Invasive Line Start (01/27/20 21:13) Ns Iv 1000 Ml (Sodium Chloride 0.9%) (01/27/20 21:13) Insulin (Regular) Human (Humulin R (Per (01/27/20 21:15) Ondansetron Injection (Zofran Injectio (01/27/20 21:15) Magnesium (01/27/20 21:13) Accucheck Stat ONCE (01/27/20 21:21) Ct Head/Cervical Spine Wo (01/27/20 21:21) Alcohol (01/27/20 21:26) Drug Screen Stat (Urine) (01/27/20 21:26) Aspirin Chewable Tablet (Baby Aspirin Ch (01/27/20 21:30) Manual Differential (01/27/20 21:15) Accucheck Stat ONCE (01/27/20 23:52) Medications Given in ED Current Medications Medications Dose Ordered Sig/Maryjo Route Start Time Stop Time Status Last Admin Dose Admin Aspirin 324 mg ONCE ONCE PO 01/27/20 21:30 01/27/20 21:31 DC 01/27/20 22:10 324 MG Insulin Human Regular 5 unit ONCE ONCE SC 01/27/20 21:15 01/27/20 21:16 DC 01/27/20 22:10 5 UNIT Ondansetron HCl 4 mg ONCE ONCE IVP 01/27/20 21:15 01/27/20 21:16 DC 01/27/20 22:09 4 MG Vital Signs/I&O 01/27/20 21:03 Temp 36.4 Pulse 89 Resp 17 B/P (MAP) 105/58 (74) O2 Delivery Room Air 01/28/20 00:00 Intake Total 1000 ml Balance 1000 ml Progress Progress Note : Time: 21:24 Progress Note Plan to get a CT of his head and C-spine to rule out significant injury. CPK since he's been down for so long. EMS initiated a liter fluids and will get a second liter of fluids. Get a urine out of him as well as chest x-ray and labs looking for infection, dehydration, electrolyte derangements etc. We'll get a CT without IV contrast of his abdomen and pelvis if he cannot tolerate contrast due to chronic kidney disease to rule out bowel obstruction as the source of his nausea vomiting and diarrhea. He has aseptic vital signs at this time with a heart rate in the 80s and no fever. No subjective fever. He does have a history of coronary disease so were going to check an EKG and troponin although he is not having any anginal symptoms. Diffuse nausea vomiting abdominal discomfort could be an atypical anginal presentation. Plan to chew up and swallow 325 mg aspirin. Initial ECG Impression Date: Jan 27, 2020 Initial ECG Impression Time: 22:07 Initial ECG Rate: 80 Initial ECG Rhythm: Normal Sinus Initial ECG Intervals: Normal Initial ECG Impression: Normal, Nonspecific Changes Initial ECG Comparisson: Unchanged Comment Normal sinus rhythm with no clinically relevant ST T-wave elevation or depression. Diagnostic Imaging Diagonstic Imaging: Xray Plain Films/CT/US/NM/MRI: chest (1 view) Comments [facility], [place] NAME: SWATI LEONARD [facility] REC#: [id number] PT STATUS: REG ER : 1950 PHYSICIAN: ADE COLLINS MD ADMIT DATE: 01/27/20/ER Draft Date of Exam:01/27/20 CHEST 1 VIEW, AP/PA ONLY INDICATION: Fall, weakness EXAMINATION: Upright chest was obtained. FINDINGS: Normal heart size and vascularity. There is right basilar atelectasis. There is no effusion or pneumothorax. IMPRESSION: There is right basilar atelectasis. Besides the atelectasis there is no change from 03/08/2019. Dictated on workstation # [id number] Dict: 01/27/20 2155 Trans: 01/27/203 [facility] [id number] Interpreted by: ELIZABETH CARROLL MD Electronically signed by: Reviewed: Reviewed by Me Diagonstic Imaging: CT Plain Films/CT/US/NM/MRI: abdomen, pelvis Comments [facility] [place], [place] NAME: SWATI LEONARD [facility] REC#: [id number] PT STATUS: REG ER : 1950 PHYSICIAN: ADE COLLINS MD ADMIT DATE: 01/27/20/ER Draft Date of Exam:01/27/20 CT ABDOMEN/PELVIS WO PROCEDURE: CT abdomen and pelvis without contrast. TECHNIQUE: Multiple contiguous axial images were obtained through the abdomen and pelvis without the use of intravenous contrast. Auto Exposure Controls were utilized during the CT exam to meet ALARA standards for radiation dose reduction. INDICATION: Fall, weakness. FINDINGS: The liver, gallbladder and bile ducts are normal. The spleen, pancreas and adrenals are normal. The kidneys, ureters and bladder are normal. No acute bowel abnormality is seen. There is no ascites. There is no acute bony abnormality. IMPRESSION: No acute abnormality is seen. Dictated on workstation # [id number] Dict: 01/27/202152 Trans: 01/27/202201 PJ Interpreted by: ELIZABETH CARROLL MD Electronically signed by: Reviewed: Reviewed by Me Diagonstic Imaging: CT Plain Films/CT/US/NM/MRI: c-spine, head Comments NAME: SWATI LEONARD [facility] REC#: [id number] PT STATUS: REG ER : 1950 PHYSICIAN: ADE COLLINS MD ADMIT DATE: 01/27/20/ER Draft Date of Exam:01/27/20 CT HEAD/CERVICAL SPINE WO PROCEDURE: CT head and CT cervical spine without contrast. TECHNIQUE: Multiple contiguous axial images were obtained through the brain and cervical spine without the use of intravenous contrast. Sagittal and coronal reformations through the cervical spine were then performed. Auto Exposure Controls were utilized during the CT exam to meet ALARA standards for radiation dose reduction. INDICATION: Fall, weakness. FINDINGS: The ventricles are normal in size, shape and position. There is no acute parenchymal hemorrhage, edema or mass. There is no extra-axial mass or hemorrhage. There is opacification of the right maxillary sinus. No acute bony abnormality is seen. There is normal height and alignment of the cervical vertebral bodies. There are mild degenerative changes present. There is spondylosis causing foraminal narrowing at C6-C7. No fracture or other acute abnormality is seen. IMPRESSION: CT of the head and cervical spine shows no acute abnormality. Dictated on workstation # [id number] Dict: 01/27/202157 Trans: 01/27/202204 PJE [id number] Interpreted by: ELIZABETH CARROLL MD Electronically signed by: Reviewed: Reviewed by Me Departure Communication (Admissions) Time/Spoke to Admitting Phy: 00:00 Dr. Alfaro agrees to admit the patient with IV fluids. Impression Primary Impression: Acute kidney injury Additional Impressions: Rhabdomyolysis Qualified Codes: T79.6XXA - Traumatic ischemia of muscle, initial encounter Acute dehydration Disposition: ADMITTED INPATIENT Condition: Stable Admissions Decision to Admit Reason: Admit from ER (General) Decision to Admit/Date: Jan 28, 2020 Time/Decision to Admit Time: 00:00 Departure-Patient Inst. Ref[place]: [facility] [place] Primary Care Physician ADE COLLINS Jan 27, 2020 21:20
[2020-01-27] MEDS ORDERED: ASPIRIN 81 MG CHEW (CHILDREN'S ASA) PO ONE (21:30)
[2020-01-27 21:41] LABS: BASOPHILS % (AUTO) 0 % (0-10); EOSINOPHILS % (AUTO) 0 % (0-10); HEMATOCRIT 41 % (40-54); HEMOGLOBIN 13.7 G/DL (13.3-17.7); LYMPHOCYTES % (AUTO) 6 % (12-44); MEAN CORPUSCULAR HEMOGLOBIN 30 PG (25-34); MEAN CORPUSCULAR HGB CONC 33 G/DL (32-36); MEAN CORPUSCULAR VOLUME 92 FL (80-99); MEAN PLATELET VOLUME 9.7 FL (7.4-10.4); MONOCYTES # (AUTO) 1.4 X 10^3 (0.0-1.0); MONOCYTES % (AUTO) 9 % (0-12); NEUTROPHILS # (AUTO) 13.3 X 10^3 (1.8-7.8); NEUTROPHILS % (AUTO) 85 % (42-75); PLATELET COUNT 228 10^3/uL (130-400); RED CELL DISTRIBUTION WIDTH 14.8 % (10.0-14.5); WHITE BLOOD COUNT 15.7 10^3/uL (4.3-11.0)
[2020-01-27 21:59] LABS: ALANINE AMINOTRANSFERASE 70 U/L (0-55); ALBUMIN 3.8 GM/DL (3.2-4.5); ALKALINE PHOSPHATASE 111 U/L (40-136); BILIRUBIN,TOTAL 0.8 MG/DL (0.1-1.0); BUN/CREATININE RATIO 10; CALCIUM 8.5 MG/DL (8.5-10.1); CARBON DIOXIDE 20 MMOL/L (21-32); CHLORIDE 103 MMOL/L (98-107); GFR ESTIMATED 13; GLUCOSE 242 MG/DL (70-105); MAGNESIUM 2.4 MG/DL (1.6-2.4); POTASSIUM 5.3 MMOL/L (3.6-5.0); SODIUM 139 MMOL/L (135-145); TOTAL PROTEIN 6.9 GM/DL (6.4-8.2)
--- NOTE | 2020-01-27 22:03 | Diagnostic Imaging Report ---
PROCEDURE: CT abdomen and pelvis without contrast. TECHNIQUE: Multiple contiguous axial images were obtained through the abdomen and pelvis without the use of intravenous contrast. Auto Exposure Controls were utilized during the CT exam to meet ALARA standards for radiation dose reduction. INDICATION: Fall, weakness. FINDINGS: The liver, gallbladder and bile ducts are normal. The spleen, pancreas and adrenals are normal. The kidneys, ureters and bladder are normal. No acute bowel abnormality is seen. There is no ascites. There is no acute bony abnormality. IMPRESSION: No acute abnormality is seen. Dictated by: Dictated on workstation # [id number]
--- NOTE | 2020-01-27 22:04 | Diagnostic Imaging Report ---
INDICATION: Fall, weakness EXAMINATION: Upright chest was obtained. FINDINGS: Normal heart size and vascularity. There is right basilar atelectasis. There is no effusion or pneumothorax. IMPRESSION: There is right basilar atelectasis. Besides the atelectasis there is no change from 03/08/2019. Dictated by: Dictated on workstation # [id number]
--- NOTE | 2020-01-27 22:06 | Diagnostic Imaging Report ---
PROCEDURE: CT head and CT cervical spine without contrast. TECHNIQUE: Multiple contiguous axial images were obtained through the brain and cervical spine without the use of intravenous contrast. Sagittal and coronal reformations through the cervical spine were then performed. Auto Exposure Controls were utilized during the CT exam to meet ALARA standards for radiation dose reduction. INDICATION: Fall, weakness. FINDINGS: The ventricles are normal in size, shape and position. There is no acute parenchymal hemorrhage, edema or mass. There is no extra-axial mass or hemorrhage. There is opacification of the right maxillary sinus. No acute bony abnormality is seen. There is normal height and alignment of the cervical vertebral bodies. There are mild degenerative changes present. There is spondylosis causing foraminal narrowing at C6-C7. No fracture or other acute abnormality is seen. IMPRESSION: CT of the head and cervical spine shows no acute abnormality. Dictated by: Dictated on workstation # [id number]
[2020-01-27 22:08] LABS: ANISOCYTOSIS SLIGHT; BAND NEUTROPHILS 7 %; BASOPHILS % (MANUAL) 0 %; EOSINOPHILS % (MANUAL) 0 %; LYMPHOCYTES % (MANUAL) 5 %; MONOCYTES % (MANUAL) 6 %; NEUTROPHILS % (MANUAL) 82 %
--- NOTE | 2020-01-27 22:08 | NUR ---
1L NS STARTED VIA EMS COMPLETE AT THIS TIME.
[2020-01-27 22:50] LABS: CREATINE KINASE 11442 U/L (30-200)
--- OUTSIDE RECORDS SUMMARY | 2020-01-28 00:41 | XMS REPORT | Continuity of Care Document ---
Author Organization Unknown Address Unknown Phone Unavailable Allergies Active Description Code Type Severity Reaction Onset Reported/Identified Relationship to Patient Clinical Status Yes No Known Drug Allergies [id number] Drug Allergy Unknown N/A 07/23/2018 Medications There [...] APRN 250.00 DIABETES II CONTROLLED 02/16/2009 RONDA SATHL APRN 250.00 DIABETES II CONTROLLED 02/16/2009 ALBERT [...] RESUSCITATE 07/13/2018 JOHN VILLALPANDO MD, Ot Z79.82 LOCKMAKER (CURRENT) USE OF ASPIRIN 07/14/2018 JOHN VILLALPANDO [...] RESUSCITATE 07/14/2018 JOHN VILLALPANDO MD, Ot Z79.82 GROUP HOME (CURRENT) USE OF ASPIRIN 07/15/2018 JOHN VILLALPANDO [...] RESUSCITATE 07/15/2018 JOHN VILLALPANDO MD, Ot Z79.82 LOCKMAKER (CURRENT) USE OF ASPIRIN 07/16/2018 JOHN VILLALPANDO [...] RESUSCITATE 07/16/2018 JOHN VILLALPANDO MD, Ot Z79.82 GROUP HOME (CURRENT) USE OF ASPIRIN 07/16/2018 JOHN VILLALPANDO [...] RESUSCITATE 07/16/2018 JOHN VILLALPANDO MD, Ot Z79.82 LOCKMAKER (CURRENT) USE OF ASPIRIN 07/17/2018 JOHN VILLALPANDO [...] K29.71 GASTRITIS, UNSPECIFIED, WITH BLEEDING 07/17/2018 JOHN VILLAPLANDO MD, Ot K44 .9 DIAPHRAGMATIC HERNIA WITHOUT [...] RESUSCITATE 07/17/2018 JOHN VILLALPANDO MD, Ot Z79.82 GROUP HOME (CURRENT) USE OF ASPIRIN 07/17/2018 JOHN VILLALPANDO [...] F43.10 POST-TRAUMATIC STRESS DISORDER, UNSPECIF 07/17/2018 JOHN VILALLPANDO MD Ot H57.89 OTHER SPECIFIED DISORDERS OF [...] MD, Ot R63 .0 ANOREXIA 07/17/2018 JOHN VLILALPANDO MD, Ot Z66 DO NOT RESUSCITATE 07/17/2018 JOHN VILLALPANDO MD, Ot Z79.82 LOCKMAKER (CURRENT) USE OF ASPIRIN 07/18/2018 JOHN VILLALPANDO [...] MD, Ot R63 .0 [place] 07/18/2018 JOHN VILALLPANDO MD, Ot Z66 DO NOT RESUSCITATE 07/18/2018 JOHN VILLALPANDO MD, Ot Z79.82 GROUP HOME (CURRENT) USE OF ASPIRIN 07/19/2018 JOHN VILLALPANDO [...] RESUSCITATE 07/19/2018 JOHN VILLALPANDO MD, Ot Z79.82 GROUP HOME (CURRENT) USE OF ASPIRIN 07/19/2018 JOHN VILLALPANDO [...] RESUSCITATE 07/19/2018 JOHN VILLALPANDO MD, Ot Z79.82 LOCKMAKER (CURRENT) USE OF ASPIRIN 07/19/2018 JOHN VILLALPANDO [...] RESUSCITATE 07/19/2018 JOHN VILLALPANDO MD, Ot Z79.82 LOCKMAKER (CURRENT) USE OF ASPIRIN 07/20/2018 JOHN VILLALPANDO [...] DISORDERS OF EYE AND ADN 07/20/2018 JOHN VILLALPANOD MD, Ot I10 ESSENTIAL (PRIMARY) HYPERTENSION 07/20/2018 [...] RESUSCITATE 07/20/2018 JOHN VILLALPANDO MD, Ot Z79.82 GROUP HOME (CURRENT) USE OF ASPIRIN 07/21/2018 JOHN VILLALPANDO [...] CHRONIC OR UNSPECIFIED DUODENAL ULCER [place] 07/21/2018 JONH VILLALPANDO MD Ot K29.71 GASTRITIS, UNSPECIFIED, WITH [...] RESUSCITATE 07/21/2018 JOHN VILLALPANDO MD, Ot Z79.82 LOCKMAKER (CURRENT) USE OF ASPIRIN 07/21/2018 JOHN VILLALPANDO [...] RESUSCITATE 07/21/2018 JOHN VILLALPANDO MD, Ot Z79.82 LOCKMAKER (CURRENT) USE OF ASPIRIN 07/22/2018 JOHN VILLALPANDO [...] RESUSCITATE 07/22/2018 JOHN VILLALPANDO MD, Ot Z79.82 LOCKMAKER (CURRENT) USE OF ASPIRIN 07/23/2018 JOHN VILLALPANDO [...] RESUSCITATE 07/23/2018 JOHN VILLALPANDO MD, Ot Z79.82 LOCKMAKER (CURRENT) USE OF ASPIRIN 07/23/2018 JOHN VILLALPANDO [...] RESUSCITATE 07/23/2018 JOHN VILLALPANDO MD, Ot Z79.82 LOCKMAKER (CURRENT) USE OF ASPIRIN 07/24/2018 JOHN VILLALPANDO [...] RESUSCITATE 07/24/2018 JOHN VILLALPANDO MD, Ot Z79.82 GROUP HOME (CURRENT) USE OF ASPIRIN 07/25/2018 JOHN VILLALPANDO [...] RESUSCITATE 07/25/2018 JOHN VILLALPANDO MD Ot Z79.82 LOCKMAKER (CURRENT) USE OF ASPIRIN 07/26/2018 JOHN VILLALPANDO [...] RESUSCITATE 07/26/2018 JOHN VILLALPANDO MD, Ot Z79.82 LOCKMAKER (CURRENT) USE OF ASPIRIN 07/26/2018 JOHN VILLALPANDO [...] RESUSCITATE 07/26/2018 JOHN VILLALPANDO MD, Ot Z79.82 GROUP HOME (CURRENT) USE OF ASPIRIN 07/27/2018 JOHN VILLALPANDO [...] RESUSCITATE 07/27/2018 JOHN VILLALPANDO MD Ot Z79.82 LOCKMAKER (CURRENT) USE OF ASPIRIN 07/28/2018 JOHN VILLALPANDO [...] .2 VENOUS INSUFFICIENCY (CHRONIC) (PERIPHER 07/28/2018 JOHN VILLAPLANDO MD, Ot J44 .9 CHRONIC OBSTRUCTIVE PULMONARY [...] RESUSCITATE 07/28/2018 JOHN VILLALPANDO MD, Ot Z79.82 LOCKMAKER (CURRENT) USE OF ASPIRIN 07/29/2018 JOHN VILLALPANDO MD Ot D62 ACUTE POSTHEMORRHAGIC ANEMIA 07/29/2018 JOHN VILLALPANDO MD, Ot D72.829 ELEVATED WHITE BLOOD CELL COUNT, UNSPECI 07/29/2018 JOHN VILLALPANDO MD Ot E11.65 TYPE 2 DIABETES MELLITUS WITH HYPERGLYCE 07/29/2018 JOHN VILALLPANDO MD Ot E86 .1 HYPOVOLEMIA 07/29/2018 JOHN [...] RESUSCITATE 07/29/2018 JOHN VILLALPANDO MD Ot Z79.82 LOCKMAKER (CURRENT) USE OF ASPIRIN 07/30/2018 JOHN VILLALPANDO [...] RESUSCITATE 07/30/2018 JOHN VILLALPANDO MD, Ot Z79.82 LOCKMAKER (CURRENT) USE OF ASPIRIN 07/31/2018 JOHN VILLALPANDO MD Ot D62 ACUTE POSTHEMORRHAGIC ANEMIA 07/31/2018 JOHN VILLALPANDO MD, Ot D72.829 ELEVATED WHITE BLOOD CELL COUNT, UNSPECI 07/31/2018 JOHN VILLALPANDO MD, Ot E11.65 TYPE 2 DIABETES MELLITUS WITH HYPERGLYCE 07/31/2018 JONH VILLALPANDO MD, Ot E86 .1 HYPOVOLEMIA 07/31/2018 [...] RESUSCITATE 07/31/2018 JOHN VILLALPANDO MD, Ot Z79.82 GROUP HOME (CURRENT) USE OF ASPIRIN 07/31/2018 JOHN VILLALPANDO [...] RESUSCITATE 07/31/2018 JOHN VILLALPANDO MD, Ot Z79.82 LOCKMAKER (CURRENT) USE OF ASPIRIN 08/01/2018 JOHN VILLALPANDO MD Ot D62 ACUTE POSTHEMORRHAGIC ANEMIA 08/01/2018 JOHN VILLALPANDO MD, Ot D72.829 ELEVATED WHITE BLOOD CELL COUNT, UNSPECI 08/01/2018 JOHN VILLALPANDO MD Ot E11.65 TYPE 2 DIABETES MELLITUS WITH HYPERGLYCE 08/01/2018 JOHN VILLALPANDO MD Ot E86 .1 HYPOVOLEMIA 08/01/2018 JOHN VLILALPANDO MD Ot E87 .2 ACIDOSIS 08/01/2018 JOHN [...] RESUSCITATE 08/01/2018 JOHN VILLALPANDO MD Ot Z79.82 LOCKMAKER (CURRENT) USE OF ASPIRIN 08/02/2018 JOHN VILLALPANDO [...] RESUSCITATE 08/02/2018 JOHN VILLALPANDO MD, Ot Z79.82 LOCKMAKER (CURRENT) USE OF ASPIRIN 08/03/2018 JOHN VILLALPANDO [...] RESUSCITATE 08/03/2018 JOHN VILLALPANDO MD Ot Z79.82 LOCKMAKER (CURRENT) USE OF ASPIRIN 08/03/2018 JOHN VILLALPANDO [...] RESUSCITATE 08/03/2018 JOHN VILLALPANDO MD, Ot Z79.82 GROUP HOME (CURRENT) USE OF ASPIRIN 08/04/2018 JOHN VILLALPANDO [...] RESUSCITATE 08/04/2018 JOHN VILLALPANDO MD Ot Z79.82 GROUP HOME (CURRENT) USE OF ASPIRIN 08/04/2018 JOHN VILLALPANDO [...] 08/04/2018 JOHN VILLALPANDO MD, Ot 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 [place] ARTERIES OF EXTRM W INTRMT 08/04/2018 JOHN VILLALPANDO MD Ot I70.223 ATHSCL [place] ARTERIES OF EXTRM W REST P 08/04/2018 [...] RESUSCITATE 08/04/2018 JOHN VILLALPANDO MD, Ot Z79.82 LOCKMAKER (CURRENT) USE OF ASPIRIN 08/04/2018 JOHN VILLALPANDO [...] RESUSCITATE 08/04/2018 JOHN VILLALPANDO MD Ot Z79.82 GROUP HOME (CURRENT) USE OF ASPIRIN 08/07/2018 DERIAN BOLAÑOS MD Ot D64.9 ANEMIA, UNSPECIFIED 08/07/2018 DERIAN BOLAÑOS MD Ot E11.9 TYPE 2 DIABETES MELLITUS WITHOUT COMPLIC 08/07/2018 DERIAN BOLAÑOS MD Ot F43.10 POST-TRAUMATIC STRESS DISORDER, UNSPECIF 08/07/2018 DERIAN BOLAÑOS MD Ot I10 ESSENTIAL (PRIMARY) HYPERTENSION 08/07/2018 DERIAN BOLAÑOS MD Ot I25.10 ATHSCL HEART DISEASE OF [place] CORONARY 08/07/2018 DERIAN BOLAÑOS MD Ot I25.5 [...] INITIAL 08/07/2018 DERIAN BOLAÑOS MD, Ot Z79.4 GROUP HOME (CURRENT) USE OF INSULIN 08/07/2018 DERIAN BOLAÑOS MD, Ot Z79.51 GROUP HOME (CURRENT) USE OF INHALED STERO 08/07/2018 DERIAN [...] MD, Ot I25.10 ATHSCL HEART DISEASE OF [place] CORONARY 12/03/2018 Jose GRAY MD, Ot I25 .2 OLD MYOCARDIAL INFARCTION 12/03/2018 Jose GRAY MD, Ot I25 .5 ISCHEMIC CARDIOMYOPATHY 12/03/2018 Jose GRAY MD, Ot I35 .1 NONRHEUMATIC AORTIC (VALVE) INSUFFICIENC 12/03/2018 Jose GRAY MD Ot I50.20 UNSPECIFIED SYSTOLIC (CONGESTIVE) HEART 12/03/2018 Jose GRAY MD Ot I70 .0 ATHEROSCLEROSIS OF [place] 12/03/2018 Jose GRAY MD Ot 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 [place] ARTERIES OF EXTRM W INTRAK 12/03/2018 Jose GRAY MD Ot I70.92 CHRONIC TOTAL OCCLUSION OF ARTERY OF THE 12/03/2018 Jose GRAY MD Ot Z79 .4 GROUP HOME (CURRENT) USE OF INSULIN 12/03/2018 Jose GRAY MD, Ot Z79.899 OTHER LOCKMAKER (CURRENT) DRUG THERAPY 12/03/2018 Jose GRAY MD [...] MD Ot I25.10 ATHSCL HEART DISEASE OF [place] CORONARY 12/07/2018 Jose GRAY MD Ot I25 .2 OLD MYOCARDIAL INFARCTION 12/07/2018 Jose GRAY MD Ot I25 .5 ISCHEMIC CARDIOMYOPATHY 12/07/2018 Jose GRAY MD Ot I35 .1 NONRHEUMATIC AORTIC (VALVE) INSUFFICIENC 12/07/2018 Jose GRAY MD Ot I50.20 UNSPECIFIED SYSTOLIC (CONGESTIVE) HEART 12/07/2018 Jose GRAY MD Ot I70 .0 ATHEROSCLEROSIS OF [place] 12/07/2018 Jose GRAY MD Ot 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 [place] ARTERIES OF EXTRM W INTRMT 12/07/2018 Jose GRAY MD Ot I70.92 CHRONIC TOTAL OCCLUSION OF ARTERY OF THE 12/07/2018 Jose GRAY MD Ot Z79 .4 GROUP HOME (CURRENT) USE OF INSULIN 12/07/2018 Jose GRAY MD, Ot Z79.899 OTHER GROUP HOME (CURRENT) DRUG THERAPY 12/07/2018 Jose GRAY MD [...] MD Ot I25.10 ATHSCL HEART DISEASE OF [place] CORONARY 12/10/2018 Jose GRAY MD Ot I25 .5 ISCHEMIC CARDIOMYOPATHY 12/10/2018 Jose GRAY MD Ot I70.212 ATHSCL [place] ARTERIES OF EXTRM W INTRMT 12/10/2018 Jose GRAY MD, Ot Z79 .4 LOCKMAKER (CURRENT) USE OF INSULIN 12/10/2018 Jose GRAY MD, Ot Z79.899 OTHER LOCKMAKER (CURRENT) DRUG THERAPY 12/14/2018 Jose GRAY MD, Ot E11 .9 TYPE 2 DIABETES MELLITUS WITHOUT COMPLIC 12/14/2018 Jose GRAY MD, Ot E78 .5 HYPERLIPIDEMIA, UNSPECIFIED 12/14/2018 Jose GRAY MD Ot F17.210 NICOTINE DEPENDENCE, CIGARETTES, UNCOMPL 12/14/2018 Jose GRAY MD Ot I10 ESSENTIAL (PRIMARY) HYPERTENSION 12/14/2018 Jose GRAY MD Ot I25.10 ATHSCL HEART DISEASE OF [place] CORONARY 12/14/2018 Jose GRAY MD Ot I25 .5 ISCHEMIC CARDIOMYOPATHY 12/14/2018 Jose GRAY MD Ot I70.212 ATHSCL [place] ARTERIES OF [facility] 12/14/2018 Jose GRAY MD Ot Z79 .4 GROUP HOME (CURRENT) USE OF INSULIN 12/14/2018 Jose GRAY MD Ot Z79.899 OTHER LOCKMAKER (CURRENT) DRUG THERAPY 12/14/2018 Jose GRAY MD Ot E11 .9 TYPE 2 DIABETES MELLITUS WITHOUT COMPLIC 12/14/2018 Jose GRAY MD Ot E78 .5 HYPERLIPIDEMIA, UNSPECIFIED 12/14/2018 Jose GRAY MD Ot F17.210 NICOTINE DEPENDENCE, CIGARETTES, UNCOMPL 12/14/2018 Jose GRAY MD Ot I10 ESSENTIAL (PRIMARY) HYPERTENSION 12/14/2018 Jose GRAY MD Ot I25.10 ATHSCL HEART DISEASE OF [place] CORONARY 12/14/2018 Jose GRAY MD Ot I25 .5 ISCHEMIC CARDIOMYOPATHY 12/14/2018 Jose GRAY MD Ot I70.212 ATHSCL [place] ARTERIES OF [facility] 12/14/2018 Jose GRAY MD Ot Z79 .4 LOCKMAKER (CURRENT) USE OF INSULIN 12/14/2018 Jose GRAY MD Ot Z79.899 OTHER GROUP HOME (CURRENT) DRUG THERAPY 12/17/2018 Jose GRAY MD Ot E11 .9 TYPE 2 DIABETES MELLITUS WITHOUT COMPLIC 12/17/2018 oJse GRAY MD Ot E78 .5 HYPERLIPIDEMIA, UNSPECIFIED 12/17/2018 Jose GRAY MD Ot F17.210 NICOTINE DEPENDENCE, CIGARETTES, UNCOMPL 12/17/2018 Jose GRAY MD Ot I10 ESSENTIAL (PRIMARY) HYPERTENSION 12/17/2018 Jose GRAY MD Ot I25.10 ATHSCL HEART DISEASE OF [place] CORONARY 12/17/2018 Jose GRAY MD Ot I25 .5 ISCHEMIC CARDIOMYOPATHY 12/17/2018 Jose GRAY MD Ot I70.212 ATHSCL [place] ARTERIES OF EXTR W [facility] 12/17/2018 Jose GRAY MD Ot Z79 .4 LOCKMAKER (CURRENT) USE OF INSULIN 12/17/2018 Jose GRAY MD, Ot Z79.899 OTHER LOCKMAKER (CURRENT) DRUG THERAPY 12/21/2018 Jose GRAY MD, Ot E78 .5 HYPERLIPIDEMIA, UNSPECIFIED 12/21/2018 Jose GRAY MD Ot I10 ESSENTIAL (PRIMARY) HYPERTENSION 12/21/2018 Jose GRAY MD Ot I25.10 ATHSCL HEART DISEASE OF [place] CORONARY 12/21/2018 Jose GRAY MD Ot I25 .5 ISCHEMIC CARDIOMYOPATHY 12/21/2018 Jose GRAY MD Ot I73 .9 PERIPHERAL VASCULAR DISEASE, UNSPECIFIED 12/31/2018 Jose GRAY MD, Ot E78 .5 HYPERLIPIDEMIA, UNSPECIFIED 12/31/2018 Jose GRAY MD Ot I10 ESSENTIAL (PRIMARY) HYPERTENSION 12/31/2018 Jose GRAY MD Ot I25.10 ATHSCL HEART DISEASE OF [place] CORONARY 12/31/2018 Jose GRAY MD Ot I25 .5 ISCHEMIC CARDIOMYOPATHY 12/31/2018 Jose GRAY MD Ot I73 .9 PERIPHERAL VASCULAR DISEASE, UNSPECIFIED 02/22/2019 Jose GRAY MD, Ot E78 .5 HYPERLIPIDEMIA, UNSPECIFIED 02/22/2019 Jose GRAY MD Ot I10 ESSENTIAL (PRIMARY) HYPERTENSION 02/22/2019 Jose GRAY MD Ot I25.10 ATHSCL HEART DISEASE OF [place] CORONARY 02/22/2019 Jose GRAY MD Ot I25 [...] DO Ot I25.10 ATHSCL HEART DISEASE OF [place] CORONARY 02/22/2019 ALBERT ABEL DO Ot I25.5 [...] UNSPECIFIED 02/22/2019 ALBERT ABEL DO Ot Z79.4 LOCKMAKER (CURRENT) USE OF INSULIN 02/22/2019 ALBERT ABEL [...] DO Ot I25.10 ATHSCL HEART DISEASE OF [place] CORONARY 02/26/2019 ALBERT ABEL DO Ot I25.5 [...] UNSPECIFIED 02/26/2019 ALBERT ABEL DO Ot Z79.4 GROUP HOME (CURRENT) USE OF INSULIN 02/26/2019 ALBERT ABEL [...] DO Ot I25.10 ATHSCL HEART DISEASE OF [place] CORONARY 03/04/2019 ALBERT ABEL DO Ot I25.5 [...] 03/04/2019 PAGE OBRIEN ALBERT K Ot Z79.4 GROUP HOME (CURRENT) USE OF INSULIN 03/04/2019 ALBERT ABEL DO Ot Z95.5 PRESENCE OF CORONARY ANGIOPLASTY IMPLANT 03/04/2019 PAGE OBRIEN ALBERT K Ot Z95.82 0 PERIPHERAL VASCULAR ANGIOPLASTY STATUS W 03/09/2019 SHILO OBRIEN FRANCA Ot 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 03/09/2019 DARREN LAO DOI Ot E11.51 TYPE [...] DOI Ot I25.10 ATHSCL HEART DISEASE OF [place] CORONARY 03/09/2019 SHILO OBRIEN FRANCA Ot I25.5 [...] HYPOG 03/09/2019 SHILO OBRIEN FRANCA Ot Z79.4 GROUP HOME (CURRENT) USE OF INSULIN 03/09/2019 SHILO OBRIEN [...] J30.9 ALLERGIC RHINITIS, UNSPECIFIED 04/08/2019 RHEA BURRIS INFORMATION TECHNOLOGY DATA ANALYST Ot J44.9 CHRONIC OBSTRUCTIVE PULMONARY DISEASE, U 04/08/2019 RHEA BURRIS INFORMATION TECHNOLOGY DATA ANALYST Ot J90 PLEURAL EFFUSION, NOT ELSEWHERE CLASSIFI 04/08/2019 RHEA BURRIS INFORMATION TECHNOLOGY DATA ANALYST Ot Z87.891 PERSONAL HISTORY OF NICOTINE DEPENDENCE 04/28/2019 RHEA BURRIS INFORMATION TECHNOLOGY DATA ANALYST Ot J18.1 LOBAR PNEUMONIA, UNSPECIFIED ORGANISM 04/28/2019 RHEA BURRIS INFORMATION TECHNOLOGY DATA ANALYST Ot J30.9 ALLERGIC RHINITIS, UNSPECIFIED 04/28/2019 RHEA BURRIS INFORMATION TECHNOLOGY DATA ANALYST Ot J44.9 CHRONIC OBSTRUCTIVE PULMONARY DISEASE, U 04/28/2019 FATUMA, RHEA E INFORMATION TECHNOLOGY DATA ANALYST Ot J90 PLEURAL EFFUSION, NOT ELSEWHERE CLASSIFI 04/28/2019 RHEA BURRIS INFORMATION TECHNOLOGY DATA ANALYST Ot Z87.891 PERSONAL HISTORY OF NICOTINE DEPENDENCE 04/28/2019 MARINA MILLER, M JORDAN Ot E78 .5 HYPERLIPIDEMIA, UNSPECIFIED 04/28/2019 Jose GRAY MD Ot I10 ESSENTIAL (PRIMARY) HYPERTENSION 04/28/2019 Jose GRAY MD Ot I25.10 ATHSCL HEART DISEASE OF [place] CORONARY 04/28/2019 MARINA MILLER, M JORDAN Ot I25 .5 ISCHEMIC CARDIOMYOPATHY 04/28/2019 MARINA MILLER, Jose ORTEGA Ot I73 .9 PERIPHERAL VASCULAR DISEASE, UNSPECIFIED 04/28/2019 RHEA BURRIS APRN Ot J18.1 LOBAR PNEUMONIA, UNSPECIFIED ORGANISM 04/28/2019 RHEA BURRIS APRN Ot J30.9 ALLERGIC RHINITIS, UNSPECIFIED 04/28/2019 RHEA BURRIS APRN Ot J44.9 CHRONIC OBSTRUCTIVE PULMONARY DISEASE, U 04/28/2019 RHEA BURRIS INFORMATION TECHNOLOGY DATA ANALYST Ot J90 PLEURAL EFFUSION, NOT ELSEWHERE CLASSIFI 04/28/2019 RHEA BURRIS INFORMATION TECHNOLOGY DATA ANALYST Ot Z87.891 PERSONAL HISTORY OF NICOTINE DEPENDENCE 05/06/2019 MARINA MILLER, SARITA R Ot N18 .3 CHRONIC KIDNEY DISEASE, STAGE 3 (MODERAT 05/18/2019 RHEA BURRIS APRN Ot J30.9 ALLERGIC RHINITIS, UNSPECIFIED 05/18/2019 RHEA BURRIS APRN Ot J44.9 CHRONIC OBSTRUCTIVE PULMONARY DISEASE, U 05/18/2019 RHEA BURRIS INFORMATION TECHNOLOGY DATA ANALYST Ot Z87.891 PERSONAL HISTORY OF NICOTINE DEPENDENCE 05/25/2019 MARINA MILLER, SARITA R Ot N18 .3 CHRONIC KIDNEY DISEASE, STAGE 3 (MODERAT 06/01/2019 RHEA BURRIS INFORMATION TECHNOLOGY DATA ANALYST Ot I51.7 CARDIOMEGALY 06/01/2019 RHEA BURRIS INFORMATION TECHNOLOGY DATA ANALYST Ot I70.0 ATHEROSCLEROSIS OF [place] 06/01/2019 RHEA BURRIS INFORMATION TECHNOLOGY DATA ANALYST Ot J30.9 ALLERGIC RHINITIS, UNSPECIFIED 06/01/2019 RHEA BURRIS INFORMATION TECHNOLOGY DATA ANALYST Ot J43.9 EMPHYSEMA, UNSPECIFIED 06/01/2019 [place] ASCENCIOINE Fernando INFORMATION TECHNOLOGY DATA ANALYST Ot J98.4 OTHER DISORDERS OF LUNG 06/01/2019 FATUMA[place] ASCENCIOINE Fernando INFORMATION TECHNOLOGY DATA ANALYST Ot R04.2 HEMOPTYSIS 06/01/2019 FATUMA[place] ASCENCIOINE Fernando INFORMATION TECHNOLOGY DATA ANALYST Ot Z87.891 PERSONAL HISTORY OF NICOTINE DEPENDENCE 06/01/2019 MARTINEZ JAVIER OBRIEN D Ot K26. 4 CHRONIC OR UNSPECIFIED DUODENAL [place]LCER [place] 06/01/2019 MARTINEZ EN OBRIENTT D Ot K29. 71 GASTRITIS, UNSPECIFIED, WITH BLEEDING 06/03/2019 FATUMA[place] ASCENCIOINE E INFORMATION TECHNOLOGY DATA ANALYST Ot I51.7 CARDIOMEGALY 06/03/2019 [place] ASCENCIOINE Fernando INFORMATION TECHNOLOGY DATA ANALYST Ot I70.0 ATHEROSCLEROSIS OF [place] 06/03/2019 FATUMA, RHEA E INFORMATION TECHNOLOGY DATA ANALYST Ot J30.9 ALLERGIC RHINITIS, UNSPECIFIED 06/03/2019 FATUMA[place] ASCENCIOINE E INFORMATION TECHNOLOGY DATA ANALYST Ot J43.9 EMPHYSEMA, UNSPECIFIED 06/03/2019 FATUMA[place] ASCENCIOINE E INFORMATION TECHNOLOGY DATA ANALYST Ot J98.4 OTHER DISORDERS OF LUNG 06/03/2019 FATUMA[place] ASCENCIOINE Fernando INFORMATION TECHNOLOGY DATA ANALYST Ot R04.2 HEMOPTYSIS 06/03/2019 FATUMA[place] ASCENCIOINE Fernando INFORMATION TECHNOLOGY DATA ANALYST Ot Z87.891 PERSONAL HISTORY OF NICOTINE DEPENDENCE 06/20/2019 FATUMA[place] ASCENCIOINE Fernando INFORMATION TECHNOLOGY DATA ANALYST Ot I51.7 CARDIOMEGALY 06/20/2019 FATUMA[place] ASCENCIOINE Fernando INFORMATION TECHNOLOGY DATA ANALYST Ot I70.0 ATHEROSCLEROSIS OF [place] 06/20/2019 FATUMA[place] ASCENCIOINE Fernando INFORMATION TECHNOLOGY DATA ANALYST Ot J30.9 ALLERGIC RHINITIS, UNSPECIFIED 06/20/2019 FATUMAOR[place] ASCENCIOINE Fernando INFORMATION TECHNOLOGY DATA ANALYST Ot J43.9 EMPHYSEMA, UNSPECIFIED 06/20/2019 FATUMA[place] ASCENCIOINE Fernando INFORMATION TECHNOLOGY DATA ANALYST Ot J98.4 OTHER DISORDERS OF LUNG 06/20/2019 FATUMA[place] ASCENCIOINE Fernando INFORMATION TECHNOLOGY DATA ANALYST Ot R04.2 HEMOPTYSIS 06/20/2019 FATUMAOR[place] ASCENCIOINE Fernando INFORMATION TECHNOLOGY DATA ANALYST Ot Z87.891 PERSONAL HISTORY OF NICOTINE DEPENDENCE 09/01/2019 JAVIER MARTINEZ DO D Ot K26. 4 CHRONIC OR UNSPECIFIED DUODENAL [place]LCER [place] 09/01/2019 EN MARTINEZ DOTT D Ot K29. 71 GASTRITIS, UNSPECIFIED, WITH BLEEDING 09/01/2019 Jose GRAY MD Ot E78 .5 HYPERLIPIDEMIA, UNSPECIFIED 09/01/2019 Jose GRAY MD JORDAN Ot I10 ESSENTIAL (PRIMARY) HYPERTENSION 09/01/2019 MARINA MILLER, Jose ORTEGA Ot I25.10 ATHSCL HEART DISEASE OF [place] CORONARY 09/01/2019 MARINA MILLER, Jose ORTEGA Ot I25 .5 ISCHEMIC CARDIOMYOPATHY 09/01/2019 MARINA MILLER, Jose ORTEGA Ot I73 .9 PERIPHERAL VASCULAR DISEASE, UNSPECIFIED 09/01/2019 RHEA BURRIS INFORMATION TECHNOLOGY DATA ANALYST Ot J30.9 ALLERGIC RHINITIS, UNSPECIFIED 09/01/2019 RHEA BURRIS INFORMATION TECHNOLOGY DATA ANALYST Ot J44.9 CHRONIC OBSTRUCTIVE PULMONARY DISEASE, U 09/01/2019 RHEA BURRIS INFORMATION TECHNOLOGY DATA ANALYST Ot Z87.891 PERSONAL HISTORY OF NICOTINE DEPENDENCE 09/01/2019 RHEA BURRIS INFORMATION TECHNOLOGY DATA ANALYST Ot J18.1 LOBAR PNEUMONIA, UNSPECIFIED ORGANISM 09/01/2019 RHEA BURRIS INFORMATION TECHNOLOGY DATA ANALYST Ot J30.9 ALLERGIC RHINITIS, UNSPECIFIED 09/01/2019 RHEA BURRIS INFORMATION TECHNOLOGY DATA ANALYST Ot J44.9 CHRONIC OBSTRUCTIVE PULMONARY DISEASE, U 09/01/2019 RHEA BURRIS INFORMATION TECHNOLOGY DATA ANALYST Ot J90 PLEURAL EFFUSION, NOT ELSEWHERE CLASSIFI 09/01/2019 OR[place] BURRISINE E INFORMATION TECHNOLOGY DATA ANALYST Ot Z87.891 PERSONAL HISTORY OF NICOTINE DEPENDENCE 09/01/2019 RHEA BURRIS INFORMATION TECHNOLOGY DATA ANALYST Ot I51.7 CARDIOMEGALY 09/01/2019 RHEA BURRIS INFORMATION TECHNOLOGY DATA ANALYST Ot I70.0 ATHEROSCLEROSIS OF [place] 09/01/2019 RHEA BURRIS INFORMATION TECHNOLOGY DATA ANALYST Ot J30.9 ALLERGIC RHINITIS, UNSPECIFIED 09/01/2019 RHEA BURRIS INFORMATION TECHNOLOGY DATA ANALYST Ot J43.9 EMPHYSEMA, UNSPECIFIED 09/01/2019 RHEA BURRIS INFORMATION TECHNOLOGY DATA ANALYST Ot J98.4 OTHER DISORDERS OF LUNG 09/01/2019 RHEA BURRIS INFORMATION TECHNOLOGY DATA ANALYST Ot R04.2 HEMOPTYSIS 09/01/2019 RHEA BURRIS INFORMATION TECHNOLOGY DATA ANALYST Ot Z87.891 PERSONAL HISTORY OF NICOTINE DEPENDENCE 09/01/2019 MARINA MILLER, SARITA Croft Ot N18 .3 CHRONIC KIDNEY DISEASE, STAGE 3 (MODERAT 09/06/2019 JAVIER MARTINZE DO Ot K26. 4 CHRONIC OR UNSPECIFIED DUODENAL [place]LCER [place] 09/06/2019 MARTINEZ DO, JAVIER D Ot K29. 71 GASTRITIS, UNSPECIFIED, WITH BLEEDING 09/06/2019 MARINA MILLER, Jose ORTEGA Ot E78 .5 HYPERLIPIDEMIA, UNSPECIFIED 09/06/2019 MARINA MILLER, Jose ORTEGA Ot I10 ESSENTIAL (PRIMARY) HYPERTENSION 09/06/2019 MARINA MILLER, Jose ORTEGA Ot I25.10 ATHSCL HEART DISEASE OF [place] CORONARY 09/06/2019 MARINA MILLER, Jose ORTEGA Ot I25 .5 ISCHEMIC CARDIOMYOPATHY 09/06/2019 MARINA MILLER, Jose ORTEGA Ot I73 .9 PERIPHERAL VASCULAR DISEASE, UNSPECIFIED 09/06/2019 OR[place]O BURRISINE E INFORMATION TECHNOLOGY DATA ANALYST Ot J30.9 ALLERGIC RHINITIS, UNSPECIFIED 09/06/2019 [place]O BURRISINE E INFORMATION TECHNOLOGY DATA ANALYST Ot J44.9 CHRONIC OBSTRUCTIVE PULMONARY DISEASE, U 09/06/2019 RHEA BURRIS INFORMATION TECHNOLOGY DATA ANALYST Ot Z87.891 PERSONAL HISTORY OF NICOTINE DEPENDENCE 09/06/2019 RHEA BURRIS INFORMATION TECHNOLOGY DATA ANALYST Ot J18.1 LOBAR PNEUMONIA, UNSPECIFIED ORGANISM 09/06/2019 OR[place]O BURRISINE E INFORMATION TECHNOLOGY DATA ANALYST Ot J30.9 ALLERGIC RHINITIS, UNSPECIFIED 09/06/2019 [place]O BURRISINE E INFORMATION TECHNOLOGY DATA ANALYST Ot J44.9 CHRONIC OBSTRUCTIVE PULMONARY DISEASE, U 09/06/2019 [place] BURRISINE Fernando INFORMATION TECHNOLOGY DATA ANALYST Ot J90 PLEURAL EFFUSION, NOT ELSEWHERE CLASSIFI 09/06/2019 [place]O BURRISINE E INFORMATION TECHNOLOGY DATA ANALYST Ot Z87.891 PERSONAL HISTORY OF NICOTINE DEPENDENCE 09/06/2019 RHEA BURRIS INFORMATION TECHNOLOGY DATA ANALYST Ot I51.7 CARDIOMEGALY 09/06/2019 RHEA BURRIS INFORMATION TECHNOLOGY DATA ANALYST Ot I70.0 ATHEROSCLEROSIS OF [place] 09/06/2019 RHEA BURRIS INFORMATION TECHNOLOGY DATA ANALYST Ot J30.9 ALLERGIC RHINITIS, UNSPECIFIED 09/06/2019 OR[place]O BURRISINE E INFORMATION TECHNOLOGY DATA ANALYST Ot J43.9 EMPHYSEMA, UNSPECIFIED 09/06/2019 [place] BURRISINE E INFORMATION TECHNOLOGY DATA ANALYST Ot J98.4 OTHER DISORDERS OF LUNG 09/06/2019 [place] BURRISINE Fernando INFORMATION TECHNOLOGY DATA ANALYST Ot R04.2 HEMOPTYSIS 09/06/2019 [place]O BURRISINE E INFORMATION TECHNOLOGY DATA ANALYST Ot Z87.891 PERSONAL HISTORY OF NICOTINE DEPENDENCE 09/06/2019 MARINA MILLER, SARITA R Ot N18 .3 CHRONIC KIDNEY DISEASE, STAGE 3 (MODERAT 09/08/2019 RHEA BURRIS INFORMATION TECHNOLOGY DATA ANALYST Ot J44.9 CHRONIC OBSTRUCTIVE PULMONARY DISEASE, U 09/08/2019 RHEA BURRIS INFORMATION TECHNOLOGY DATA ANALYST Ot K82.8 OTHER SPECIFIED DISEASES OF GALLBLADDER 09/08/2019 RHEA BURRIS INFORMATION TECHNOLOGY DATA ANALYST Ot Z87.891 PERSONAL HISTORY OF NICOTINE DEPENDENCE 10/14/2019 RHEA BURRIS INFORMATION TECHNOLOGY DATA ANALYST Ot J44.9 CHRONIC OBSTRUCTIVE PULMONARY DISEASE, U 10/14/2019 RHEA BURRIS INFORMATION TECHNOLOGY DATA ANALYST Ot K82.8 OTHER SPECIFIED DISEASES OF [place] 10/14/2019 RHEA BURRIS INFORMATION TECHNOLOGY DATA ANALYST Ot Z87.891 PERSONAL HISTORY OF NICOTINE DEPENDENCE 11/07/2019 MARINA MILLER, Jose ORTEGA Ot 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 11/07/2019 Jose GRAY MD Ot E78 .5 HYPERLIPIDEMIA, UNSPECIFIED 11/07/2019 Jose GRAY MD Ot I13 .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 11/07/2019 Jose GRAY MD Ot I25.10 ATHSCL HEART DISEASE OF [place] CORONARY 11/07/2019 Jose GRAY MD Ot I25 [...] 11/07/2019 Jose GRAY MD, Ot Z79 .4 LOCKMAKER (CURRENT) USE OF INSULIN 11/07/2019 Jose GRAY MD, Ot Z79.82 GROUP HOME (CURRENT) USE OF ASPIRIN 11/07/2019 Jose GRAY MD, Ot Z79.899 OTHER GROUP HOME (CURRENT) DRUG THERAPY 11/07/2019 Jose GRAY MD, Ot Z80 .9 FAMILY HISTORY OF MALIGNANT NEOPLASM, UN 11/07/2019 Jose GRAY MD, Ot Z86.73 PRSNL HX OF TIA (TIA), AND CEREB INFRC W 11/07/2019 Jose GRAY MD, Ot Z87.891 PERSONAL HISTORY OF NICOTINE DEPENDENCE 11/09/2019 Jose GRAY MD, Ot 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 11/09/2019 Jose GRAY MD, Ot E78 .5 HYPERLIPIDEMIA, UNSPECIFIED 11/09/2019 Jose GRAY MD, Ot I13 .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 11/09/2019 Jose GRAY MD, Ot I25.10 ATHSCL HEART DISEASE OF [place] CORONARY 11/09/2019 Jose GRAY MD, Ot I25 [...] 11/09/2019 Jose GRAY MD, Ot Z79 .4 LOCKMAKER (CURRENT) USE OF INSULIN 11/09/2019 Jose GRAY MD, Ot Z79.82 GROUP HOME (CURRENT) USE OF ASPIRIN 11/09/2019 Jose GRAY MD, Ot Z79.899 OTHER GROUP HOME (CURRENT) DRUG THERAPY 11/09/2019 Jose GRAY MD, Ot Z80 .9 FAMILY HISTORY OF MALIGNANT NEOPLASM, UN 11/09/2019 Jose GRAY MD, Ot Z86.73 PRSNL HX OF TIA (TIA), AND CEREB INFRC W 11/09/2019 Jose GRAY MD, Ot Z87.891 PERSONAL HISTORY OF NICOTINE DEPENDENCE 11/23/2019 Jose GRAY MD, Ot 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 11/23/2019 Jose GRAY MD, Ot E78 .5 HYPERLIPIDEMIA, UNSPECIFIED 11/23/2019 Jose GRAY MD, Ot I13 .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 11/23/2019 Jose GRAY MD, Ot I25.10 ATHSCL HEART DISEASE OF [place] CORONARY 11/23/2019 Jose GRAY MD, Ot I25 [...] MARINA MILLER, Jose ORTEGA Ot Z79 .4 LOCKMAKER (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) USE OF INSULIN 11/23/2019 Jose GRAY MD, Ot Z79.82 GROUP HOME (CURRENT) USE OF ASPIRIN 11/23/2019 Jose GRAY MD, Ot Z79.899 OTHER GROUP HOME (CURRENT) DRUG THERAPY 11/23/2019 Jose GRAY MD, Ot Z80 .9 FAMILY HISTORY OF MALIGNANT NEOPLASM, UN 11/23/2019 Jose GRAY MD, Ot Z86.73 PRSNL HX OF TIA (TIA), AND CEREB INFRC W 11/23/2019 Jose GRAY MD, Ot Z87.891 PERSONAL HISTORY OF NICOTINE DEPENDENCE Procedures Code Description [place] [address] A1C (IN-HOUSE) 09/21/2012 44061 A1C (IN-HOUSE) 01/30/2014 14739 MICR O ALBUMIN-IN HOUSE 01/30/2014 86866 MICR OALBUMIN 01/30/2014 64445 ROUT INE VENIPUNCTURE 02/20/2014 46070 CMP 02/20/2014 83992 LIPI D PANEL 02/20/2014 [id number] GF R CALC (RESULT ONLY) 02/20/2014 17718 CBC 02/20/2014 [id number] EX CISION OF ESOPHAGOGASTRIC JUNCTION, EN 07/08/2018 [id number] EX CISION OF STOMACH, PYLORUS, ENDO, DIAG 07/08/2018 [id number] EX CISION OF DUODENUM, ENDO, DIAGN 07/08/2018 [id number] DI LATION OF 1 COR ART WITH 2 DRUG-ELUT, 07/16/2018 [id number] ME ASURE OF CARDIAC SAMPL PRESSURE, L H 07/16/2018 [id number] FL UOROSCOPY OF MULT COR ART USING L OSM 07/16/2018 [id number] FL UOROSCOPY OF THORACIC AORTA USING LOW 07/16/2018 [id number] FL UOROSCOPY OF THORACO- ABDOMINAL AORTA U 07/16/2018 [id number] OC CLUSION OF DUODENUM WITH INTRALUMINAL 07/23/2018 [id number] CO NTROL BLEEDING IN GASTROINTESTINAL TRA 07/23/2018 [id number] IN SERTION OF OTHER DEVICE INTO GASTROINT 07/23/2018 [id number] IN TRODUCTION OF OTH THERAP SUBST INTO LO 07/23/2018 [id number] CO NTROL BLEEDING IN GASTROINTESTINAL TRA 07/29/2018 [id number] IN TRODUCTION OF OTH THERAP SUBST INTO LO 07/29/2018 [id number] CO NTROL BLEEDING IN GASTROINTESTINAL TRA 07/31/2018 [id number] IN TRODUCTION OF OTH THERAP SUBST INTO LO 07/31/2018 [id number] IN SPECTION OF BLADDER, ENDO 02/25/2019 Results [...] ABO+Rh group OP NRG Transfusion band number [id number] NRG Blood group antibody screen NEGATIVE NR [...] ABO+Rh group OP NRG Transfusion band number [id number] NRG Blood group antibody screen NEGATIVE NR [...] mg/dL 70-110 Whole blood hemoglobin and hematocrit [facility] - 07/26/18 12:25 Venous blood hemoglobin measurement (mass/volume) 8.3 g/dL 13.3-17.7 Blood hematocrit (volume fraction) 26 % 40-54 Capillary blood glucose measurement by g lucometer (mass/volume) - 07/26/18 16:09 Capillary blood glucose measurement by glucometer (mas s/volume) 197 mg/dL 70-110 Whole blood hemoglobin and hematocrit [facility] - 07/26/18 18:15 Venous blood [...] mg/dL 70-110 Whole blood hemoglobin and hematocrit [facility] - 07/27/18 06:05 Venous blood [...] mg/dL 70-110 Whole blood hemoglobin and hematocrit [facility] 07/27/18 16:31 Venous blood hemoglobin measurement (mass/volume) 7.7 g/dL 13.3-17.7 Blood hematocrit (volume fraction) 24 % 40-54 Capillary blood glucose measurement by g lucometer (mass/volume) - 07/27/18 21:07 Capillary blood glucose measurement by glucometer (mas s/volume) 226 mg/dL 70-110 Whole blood hemoglobin and hematocrit [facility] 07/28/18 06:01 Venous blood hemoglobin measurement (mass/volume) [...] NRG Blood type T Indirect antibody screen [facility] - 07/28/18 06:01 ABO+Rh group OP NRG Transfusion band number [id number] NRG Blood group antibody screen NEGATIVE NR [...] mg/dL 70-110 Whole blood hemoglobin and hematocrit [facility] - 07/28/18 16:33 Venous blood [...] ABO+Rh group OP NR Transfusion band number [id number] NR Blood group antibody screen NEGATIVE NR [...] ABO+Rh group OP NRG Transfusion band number [id number] NR Blood group antibody screen NEGATIVE NR [...] mg/dL 0.1-1.0 Serum or plasma alkaline phosphatase tnio surement (enzymatic activity/volume) 122 U/L 40-136 Serum [...] OF GROWTH Isolated NRG Bacterial blood culture [id number] NRG Bacterial blood culture - 03/07/19 12:33 [...] by glucometer (mas s/volume) 206 mg/dL 70-110 [id number] - 04/06/19 11:20 Serum or plasma urea [...] Status Pt. Type Provider Facility Loc./Unit Complaint [id number] 06/20/2014 16:14:00 06/20/2014 23:59: 59 CLS Outpatient ABEL ALBERT OBRIEN Rashi [id number] 02/20/2014 12:03:00 02/20/2014 23:59: 59 CLS Outpatient RONDA STAHL APRN [id number] 01/30/2014 11:52:00 01/30/2014 23:59: 59 CLS Outpatient RONDA STAHL APRN [id number] 06/15/2013 00:00:00 06/15/2013 23:59: 59 CLS Outpatient RONDA STAHL APRN [id number] 09/21/2012 14:41:00 09/21/2012 23:59: 59 CLS Outpatient RONDA STAHL APRN [id number] 09/21/2012 14:41:00 09/21/2012 23:59: 59 CLS Outpatient [id number] 06/15/2012 13:27:00 06/15/2012 23:59: 59 CLS Outpatient [id number] 06/15/2012 13:27:00 06/15/2012 23:59:5 9 CLS Outpatient [id number] 04/04/2013 12:41:00 Document Registration [id number] 10/27/2019 13:40:00 10/27/2019 23:59:5 9 CLS Outpatient RONDA STAHL APRN [facility] [id number] 06/24/2018 09:00:00 Document Registration [id number] 11/07/2019 11:53:00 20:49:00 DIS Outpatient Jose GRAY MD [facility] CATH RESTING RT LEG DISCOMFO RT,SEVERE PAD [id number] 09/07/2019 13:08:00 23:59:59 CLS Outpatient RHEA BURRIS APRN [facility] RAD DYSPNEA,COPD,HX OF SMOKING [id number] 05/27/2019 10:15:00 23:59:59 CLS Outpatient RHEA BURRIS APRN [facility] RAD DYSPNEA [id number] 05/04/2019 09:05:00 23:59:59 CLS Outpatient SARITA GRAY MD [facility] RAD CHRONIC KIDNEY DISEASE STAGE 3 [id number] 04/28/2019 12:07:00 23:59:59 CLS Outpatient RHEA BURRIS APRN [facility] RT DYSPNEA [id number] 04/06/2019 11:10:00 23:59:59 CLS Outpatient RHEA BURRIS APRN [facility] RAD DYSPNEA [id number] 03/07/2019 14:05:00 15:22:00 DIS Inpatient LAO DO, FRANCA [facility] 4TH HYPOGLYCEMIA;UNRESPONSI VE STATE [id number] 02/25/2019 12:40:00 13:30:00 DIS Inpatient ALBERT ABEL DO, V [facility] 4TH CHF EXACERBATION [id number] 12/09/2018 10:09:00 11:25:00 DIS Outpatient Jose GRAY MD [facility] CATH CLAUDICATION,SEVERE [id number] 12/02/2018 08:06:00 10:58:00 DIS Outpatient Jose GRAY MD [facility] CATH SYMPTOMATIC SEVERE LIFE STYLE LIMITING CLAUDICATION [id number] 12/01/2018 11:37:00 23:59:59 CLS Outpatient Jose GRAY MD [facility] CARD CAD [id number] 08/07/2018 08:46:00 11:51:00 DIS Emergency MAMI MILLER, DERIAN Sawant [facility] ER DIARRHEA W BLOO D [id number] 07/07/2018 01:02:00 13:00:00 DIS Inpatient KWAIS MILLER, JOHN Wood [facility] 4TH GI BLEED,HYPERGLYCEMIA, RENAL FAILURE,LEUKOCYTOSIS [id number] 06/24/2018 09:25:00 23:59:59 CLS Outpatient JAVIER MARTINEZ DO [facility] ENDO EGD [id number] 09/12/2020 10:15:00 P RHEA Camacho APRN [facility] RAD COPD,UNSPECIFIED
[2020-01-28 01:23] VITALS: BP 132/72
[2020-01-28 03:15] VITALS: BP 147/77
[2020-01-28] MEDS ORDERED: ACETAMINOPHEN 500 MG TAB (TYLENOL) PO PRN ×2 (03:30→11:30)
[2020-01-28] MEDS: 1/2 NS IV SOLUTION 1,000 ML IV SCH ×5 (04:26→21:48)
[2020-01-28 05:25] LABS: BASOPHILS % (AUTO) 0 % (0-10); EOSINOPHILS % (AUTO) 0 % (0-10); HEMATOCRIT 39 % (40-54); HEMOGLOBIN 12.7 G/DL (13.3-17.7); LYMPHOCYTES # (AUTO) 1.1 X 10^3 (1.0-4.0); LYMPHOCYTES % (AUTO) 9 % (12-44); MEAN CORPUSCULAR HEMOGLOBIN 30 PG (25-34); MEAN CORPUSCULAR HGB CONC 33 G/DL (32-36); MEAN CORPUSCULAR VOLUME 93 FL (80-99); MEAN PLATELET VOLUME 9.7 FL (7.4-10.4); MONOCYTES # (AUTO) 1.1 X 10^3 (0.0-1.0); MONOCYTES % (AUTO) 8 % (0-12); NEUTROPHILS # (AUTO) 10.9 X 10^3 (1.8-7.8); NEUTROPHILS % (AUTO) 83 % (42-75); PLATELET COUNT 226 10^3/uL (130-400); RED CELL DISTRIBUTION WIDTH 14.9 % (10.0-14.5); WHITE BLOOD COUNT 13.2 10^3/uL (4.3-11.0)
[2020-01-28 05:40] LABS: ALBUMIN 3.7 GM/DL (3.2-4.5); POTASSIUM 4.6 MMOL/L (3.6-5.0)
[2020-01-28 05:42] LABS: CALCIUM 8.1 MG/DL (8.5-10.1)
[2020-01-28 05:43] LABS: TOTAL PROTEIN 6.6 GM/DL (6.4-8.2)
[2020-01-28 05:45] LABS: BILIRUBIN,TOTAL 0.6 MG/DL (0.1-1.0)
[2020-01-28 05:47] LABS: CREATININE SERUM 3.7 MG/DL (0.60-1.30)
[2020-01-28] MEDS: inSUlin ASPART (NovoLOG) 1 UNIT/0.01 ML (CHARGE PER UNIT) SC SCH ×4 (06:11→21:13)
[2020-01-28 06:50] VITALS: BP 105/58
[2020-01-28] MEDS ORDERED: RT-ALBUTEROL/IPRATROPIUM 3 ML (DUONEB) VIAL INH PRN (07:00)
[2020-01-28] MEDS: RT-ALBUTEROL/IPRATROPIUM 3 ML (DUONEB) VIAL INH SCH ×2 (07:11→19:02)
[2020-01-28 07:39] VITALS: BP 159/76
[2020-01-28] MEDS ORDERED: meTOprolol TARTRATE 25 MG (LOPRESSOR) TABLET PO SCH (09:00)
[2020-01-28] MEDS ORDERED: ASPIRIN 81 MG CHEW (CHILDREN'S ASA) PO SCH (09:00)
[2020-01-28 11:09] VITALS: BP 171/84
[2020-01-28] MEDS ORDERED: RT-ALBUTEROL SULF 2.5 MG/3 ML PRE-MIX VIAL INH PRN (11:30)
[2020-01-28] MEDS ORDERED: BISACODYL 5 MG (DULCOLAX) TABLET PO PRN (11:30)
--- NOTE | 2020-01-28 12:00 | NUR ---
BLADDER SCAN RESULT 574ML, PT ASSISTED WITH URINAL, UNABLE TO VOID, DR EL NOTIFIED BY THIS RN, ORDER RECEIVED TO INSERT FELIPE DUE TO RETENTION.
[2020-01-28 12:39] LABS: BILIRUBIN,URINE NEGATIVE (NEGATIVE); CLARITY,URINE CLEAR; COLOR,URINE YELLOW; GLUCOSE, URINE (UA) 2+ (NEGATIVE); KETONES,URINE NEGATIVE (NEGATIVE); LEUKOCYTE ESTERASE ,URINE NEGATIVE (NEGATIVE); NITRITE,URINE NEGATIVE (NEGATIVE); PROTEIN,URINE 1+ (NEGATIVE)
[2020-01-28 12:47] LABS: BACTERIA,URINE TRACE /HPF; RBC,URINE RARE /HPF; SQUAMOUS EPITHELIAL CELL,UR RARE /HPF
[2020-01-28 12:51] LABS: AMPHETAMINE SCREEN, URINE NEGATIVE (NEGATIVE); BARBITURATE SCREEN URINE NEGATIVE (NEGATIVE); BENZODIAZEPINES SCREEN URINE NEGATIVE (NEGATIVE); CANNABINOID SCREEN, URINE NEGATIVE (NEGATIVE); COCAINE SCREEN URINE NEGATIVE (NEGATIVE); METHADONE STAT NEGATIVE (NEGATIVE); METHAMPHETAMINE SCREEN URINE S NEGATIVE (NEGATIVE); OPIATE SCREEN URINE NEGATIVE (NEGATIVE); OXYCODONE STAT NEGATIVE (NEGATIVE); PROPOXYPHENE STAT NEGATIVE (NEGATIVE); TRICYCLIC ANTIDEPRESSANTS SCRE NEGATIVE (NEGATIVE)
--- NOTE | 2020-01-28 13:05 | History & Physical-Hospitalist ---
History of Present Illness HPI/Chief Complaint this is a 69-year-old white male who lives in the [facility]. Evidently he had had an episode of severe leg weakness and allowed himself to gently lowered to the ground. He was unable to get up and when laying on the floor for over 24 hours. He was discovered by his chart snatcher and brought to the emergency room where he w as found to have this elevated CPK of over 11,000 and acute renal failure. The time of my interview this morning he complains primarily of leg weakness and has very limited ability to move his left leg. He says it's just weak and has his pain from neuropathy but there is no pain that is related to the fall. He has severe peripheral vascular disease that has not been amenable to intervention. In addition he has long-standing diabetes with peripheral neuropathy from that. Source: patient Exam Limitations: no limitations Date Seen 01/28/20 Time Seen by a Provider: 12:00 Attending Physician Melinda Alfaro MD [facility] Referring Physician Date of Admission Jan 28, 2020 at 00:10 Home Medications & Allergies Home Medications Reviewed patient Home Medication Reconciliation performed by pharmacy medication reconciliations hvac technician residential and/or nursing. Patients Allergies have been reviewed. Allergies Allergies Coded Allergies No Known Drug Allergies (Vxkgtoqe97/15/18) Past Tlkoeye-Uxfzph-Qmrpbr Hx Past Med/Social Hx: Reviewed Nursing Past Med/Soc Hx Patient Social History Marrital Status: single Employed/Student: retired Alcohol Use: Occasionally Uses Number of Drinks Today: AA Alcohol Beverage of Choice: Beer Recreational Drug Use: No Smoking Status: Former Smoker Type Used: Cigarettes 2nd Hand Smoke Exposure: No Recent Foreign Travel: No Contact w/other who traveled: No Recent Hopitalizations: No Recent Infectious Disease Expo: No Immunizations Up To Date Tetanus Booster (TDap): Unknown Date of Pneumonia Vaccine: Dec 02, 2016 Date of Influenza Vaccine: May 24, 2019 Seasonal Allergies Seasonal Allergies: No Past Medical History Surgeries: Abdominal, Cardiac, Coronary Stent Respiratory: COPD Currently Using CPAP: No Currently Using BIPAP: No Cardiac: Atrial Fibrillation, Cardiomyopathy, Coronary Artery Disease, Hypertension, Peripheral Vascular Sexually Transmitted Disease: No HIV/AIDS: No Genitourinary: Benign Prostatic Hyperpl, Kidney Infection, Prostate Problems, Renal Failure Gastrointestinal: Gastrointestinal Bleed, Irritable Bowel Musculoskeletal: Back Injury Endocrine: Diabetes, Insulin dep Loss of Vision: Bilateral Hearing Impairment: Denies Psychosocial: Anxiety, PTSD History of Blood Disorders: No Adverse Reaction to Blood Cade: No Family History Asthma Cardiovascular disease Completed stroke Dementia Hypertension Myocardial infarction Respiratory disorder Visual disorder No Pertinent Family Hx Review of Systems Constitutional: see HPI EENTM: no symptoms reported Respiratory: no symptoms reported Cardiovascular: no symptoms reported Gastrointestinal: no symptoms reported Genitourinary: decreased output Musculoskeletal: muscle pain Skin: no symptoms reported Psychiatric/Neurological: Paresthesia, Weakness (left leg) Physical Exam Physical Exam Vital Signs Vital Signs - First Documented 01/27/20 01/28/20 01/28/20 01/28/20 21:03 00:57 01:23 06:50 Temp 36.4 Pulse 89 Resp 17 B/P (MAP) 105/58 (74) Pulse Ox 95 O2 Delivery Room Air O2 Flow Rate 2.00 FiO2 21 Capillary Refill : Less Than 3 Seconds Height, Weight, BMI Height: 5'8.00" Weight: 192lbs. 0.0oz. 87.151439pa; 32.32 BMI Method:Stated General Appearance: No Apparent Distress, WD/WN HEENT: Other (poor dentition) Neck: Non Tender, Supple Respiratory: Chest Non Tender, Lungs Clear, Normal Breath Sounds, No Respiratory Distress Cardiovascular: Regular Rate, Rhythm, No Gallop, Systolic Murmur Gastrointestinal: Normal Bowel Sounds, Non Tender, Soft Extremity: Slow Capillary Refill, Other (unable to dorsiflex the left foot and only has a weak plantar fat flex) Neurologic/Psychiatric: Alert, Oriented x3, No Motor/Sensory Deficits, Normal Mood/Affect Skin: Warm/Dry Results Results/Procedures Labs Laboratory Tests 01/27/20 21:15 01/28/20 05:16 Patient resulted labs reviewed. Assessment/Plan Admission Diagnosis rhabdomyolysis Acute on chronic renal failure secondary to rhabdo Dehydration secondary to prolonged episode on the floor Foot drop of uncertain etiology questionable new Type II diabetes with severe neuropathy Chronic renal insufficiency with a baseline creatinine about 1.8 History congestive heart failure with an ejection fraction 20-25 percent by history Peripheral arterial disease not amenable to intervention by noninvasive means Coronary artery disease Tobaccoism curtailed urinary retention requiring Santiago catheter type II diabetes long-standing COPD Plan to continue aggressive IV fluid hydration watching carefully for pulmonary edema,will probably need social work consult to help plan to avoid recurrent episodes of this Admission Status: Inpatient Order (span 2 midnights) Reason for Inpatient Admission: patient has multiple comorbidities requiring interventions Clinical Quality Measures DVT/VTE Risk/Contraindication: Risk Factor Score Per Nursin RFS Level Per Nursing on Admit: 4+=Very High Copy Copies To 1: [facility]/MELINDA ABDALLA MD Jan 28, 2020 13:05
[2020-01-28] MEDS ORDERED: PATIENT MAY USE OWN MED,SINGLE MED PO SCH (13:30)
[2020-01-28 15:45] VITALS: BP 195/72
[2020-01-28] MEDS: SUCRALFATE 1 GM (CARAFATE) TAB PO SCH ×2 (15:54→21:16)
[2020-01-28] MEDS: HYDROcodone/APAP 5 MG/325 MG (LORTAB) TAB PO PRN (15:54)
--- NOTE | 2020-01-28 17:30 | NUR ---
PT SON CALLED AND SPOKE TO THIS RN IN REGARDS TO PTS HOME MEDICATION PRAZOSIN. SON STATED HE WILL BRING MEDICATION TO HOSPITAL TOMORROW 01/29/2020.
[2020-01-28] MEDS: ADVAIR HFA 115/21 MCG INHALER 8 GM IH SCH (19:01)
[2020-01-28] MEDS ORDERED: PRAZOSIN HCL 10 MG PO SCH (21:00)
[2020-01-28] MEDS ORDERED: NON-FORMULARY MEDICATION 1 EA EA (Budesonide/Formoterol Fumarate (Symbicort 160-4.5 Mcg In IH SCH (21:00)
[2020-01-28] MEDS: GABAPENTIN 300 MG (NEURONTIN) CAP PO SCH (21:12)
[2020-01-28] MEDS: PANTOPRAZOLE 40 MG (PROTONIX) TAB PO SCH (21:12)
[2020-01-29 00:10] VITALS: BP 183/80
[2020-01-29] MEDS ORDERED: meTOprolol SUCCINATE 100 MG (TOPROL XL) TAB PO SCH (00:45)
[2020-01-29] MEDS: HYDROcodone/APAP 5 MG/325 MG (LORTAB) TAB PO PRN ×4 (01:46→23:09)
[2020-01-29] MEDS ORDERED: meTOprolol SUCCINATE 100 MG (TOPROL XL) TAB PO ONE (02:37)
[2020-01-29] MEDS: meTOprolol SUCCINATE 100 MG (TOPROL XL) TAB PO SCH ×3 (02:40→21:32)
[2020-01-29] MEDS: 1/2 NS IV SOLUTION 1,000 ML IV SCH ×4 (02:42→18:26)
[2020-01-29 04:00] VITALS: BP 145/78
[2020-01-29] MEDS: SUCRALFATE 1 GM (CARAFATE) TAB PO SCH ×4 (05:55→21:32)
[2020-01-29] MEDS: inSUlin ASPART (NovoLOG) 1 UNIT/0.01 ML (CHARGE PER UNIT) SC SCH ×4 (05:56→21:13)
[2020-01-29 06:02] LABS: BASOPHILS % (AUTO) 0 % (0-10); EOSINOPHILS % (AUTO) 0 % (0-10); HEMATOCRIT 39 % (40-54); HEMOGLOBIN 12.6 G/DL (13.3-17.7); LYMPHOCYTES # (AUTO) 0.8 X 10^3 (1.0-4.0); LYMPHOCYTES % (AUTO) 5 % (12-44); MEAN CORPUSCULAR HEMOGLOBIN 30 PG (25-34); MEAN CORPUSCULAR HGB CONC 33 G/DL (32-36); MEAN CORPUSCULAR VOLUME 93 FL (80-99); MEAN PLATELET VOLUME 9.3 FL (7.4-10.4); MONOCYTES # (AUTO) 1.1 X 10^3 (0.0-1.0); MONOCYTES % (AUTO) 7 % (0-12); NEUTROPHILS # (AUTO) 14.5 X 10^3 (1.8-7.8); NEUTROPHILS % (AUTO) 89 % (42-75); PLATELET COUNT 218 10^3/uL (130-400); RED CELL DISTRIBUTION WIDTH 14.2 % (10.0-14.5); WHITE BLOOD COUNT 16.3 10^3/uL (4.3-11.0)
[2020-01-29 06:35] LABS: ALBUMIN 3.6 GM/DL (3.2-4.5); BILIRUBIN,TOTAL 0.8 MG/DL (0.1-1.0); CALCIUM 8.2 MG/DL (8.5-10.1); CREATININE SERUM 2.36 MG/DL (0.60-1.30); TOTAL PROTEIN 6.5 GM/DL (6.4-8.2)
[2020-01-29 07:17] VITALS: BP 120/63
[2020-01-29] MEDS: PRASUGREL 10 MG (EFFIENT) TABLET PO SCH (07:48)
[2020-01-29] MEDS: PANTOPRAZOLE 40 MG (PROTONIX) TAB PO SCH ×2 (07:48→21:35)
[2020-01-29] MEDS: FINASTERIDE (PROSCAR) 5 MG TAB PO SCH (07:48)
[2020-01-29] MEDS: ASPIRIN E.C. 81 MG (ECOTRIN) TAB PO SCH (07:48)
[2020-01-29] MEDS ORDERED: GABAPENTIN 300 MG (NEURONTIN) CAP PO SCH (09:00)
[2020-01-29] MEDS: ADVAIR HFA 115/21 MCG INHALER 8 GM IH SCH ×2 (09:45→18:40)
[2020-01-29] MEDS: UMECLIDINIUM BROMIDE (INCRUSE ELLIPTA) 7'S IH SCH (09:45)
[2020-01-29] MEDS: RT-ALBUTEROL/IPRATROPIUM 3 ML (DUONEB) VIAL INH SCH ×2 (09:45→18:40)
[2020-01-29 11:06] VITALS: BP 131/64
--- NOTE | 2020-01-29 12:48 | Progress Note - Hospitalist ---
Subjective HPI/CC On Admission Date Seen by Provider: Jan 29, 2020 Time Seen by Provider: 11:30 this is a 69-year-old white male who lives in the [facility]. Evidently he had had an episode of severe leg weakness and allowed himself to gently lowered to the ground. He was unable to get up and when laying on the floor for over 24 hours. He was discovered by his dedicated truck driver and brought to the emergency room where he was found to have this elevated CPK of over 11,000 and acute renal failure. The time of my interview this morning he complains primarily of leg weakness and has very limited ability to move his left leg. He says it's just weak and has his pain from neuropathy but there is no pain that is related to the fall. He has severe peripheral vascular disease that has not been amenable to intervention. In addition he has long-standing diabetes with peripheral neuropathy from that. Subjective/Events-last exam Patient complains of still being sick. His legs are still weak and is unable to weight-bear. He can move his left leg much better today, but he still has trouble feeling them. He does have long-standing neuropathy. He denies any other complaints. He has 2 blood cultures from both the right and the left antecubital fossa that grew out coag-negative staph. The patient was very dirty when he originally came in as it and it's felt that this may represent contamination, but I'll get a pro-calcitonin today. CPK and creatinine are improving. Review of Systems Musculoskeletal: leg pain Neurological: Weakness Objective Exam Vital Signs Vital Signs Date Time Temp Pulse Resp B/P (MAP) Pulse Ox O2 Delivery O2 Flow Rate FiO2 01/29/20 11:06 36.8 80 20 131/64 (86) 93 Room Air 01/29/20 04:00 2.00 01/28/20 06:50 21 Capillary Refill : Less Than 3 SecondsLess Than 3 Seconds General Appearance: No Apparent Distress, WD/WN, Other (Laying flat on his side) Neck: Full Range of Motion, Normal Inspection, Non Tender Respiratory: Lungs Clear, Normal Breath Sounds, No Accessory Muscle Use, No Respiratory Distress Cardiovascular: Regular Rate, Rhythm, No Gallop, Systolic Murmur Gastrointestinal: Normal Bowel Sounds, Non Tender, Soft Rectal: Deferred Back: Normal Inspection Extremity: Pedal Edema, Other (Improved dorsiflexion, plantarflexion left leg and right) Neurologic/Psychiatric: Alert, Oriented x3, Normal Mood/Affect Results/Procedures Lab Laboratory Tests 01/29/20 05:50 Patient resulted labs reviewed. Assessment/Plan Assessment and Plan Assess & Plan/Chief Complaint rhabdomyolysis-improving with IV fluid hydration Acute on chronic renal failure secondary to rhabdo-improving Dehydration secondary to prolonged episode on the floor Foot drop of uncertain etiology questionable new-improved movement with decreased reflexes but improved. Strength Type II diabetes with severe neuropathy Chronic renal insufficiency with a baseline creatinine about 1.8 History congestive heart failure with an ejection fraction 20-25 percent by history Peripheral arterial disease not amenable to intervention by noninvasive means Coronary artery disease Tobaccoism curtailed urinary retention requiring Santiago catheter type II diabetes long-standing COPD Weakness. We'll consult physical therapy. Consideration being given for rehabilitation Clinical Quality Measures DVT/VTE Risk/Contraindication: Risk Factor Score Per Nursin RFS Level Per Nursing on Admit: 4+=Very High CARLOS EL MD Jan 29, 2020 12:48
[2020-01-29 15:56] VITALS: BP 137/65
[2020-01-29 20:12] VITALS: BP 136/70
[2020-01-29] MEDS: PRAZOSIN 5 MG CAPSULE PO SCH (21:32)
[2020-01-29] MEDS: GABAPENTIN 300 MG (NEURONTIN) CAP PO SCH (21:32)
[2020-01-30] VITALS (7 sets, daily range): BP systolic 101–162; BP diastolic 60–75
[2020-01-30] MEDS: 1/2 NS IV SOLUTION 1,000 ML IV SCH ×5 (00:03→18:41)
[2020-01-30 05:38] LABS: BASOPHILS % (AUTO) 0 % (0-10); EOSINOPHILS % (AUTO) 0 % (0-10); HEMATOCRIT 31 % (40-54); LYMPHOCYTES # (AUTO) 1.1 X 10^3 (1.0-4.0); LYMPHOCYTES % (AUTO) 8 % (12-44); MEAN CORPUSCULAR HEMOGLOBIN 30 PG (25-34); MEAN CORPUSCULAR HGB CONC 33 G/DL (32-36); MEAN CORPUSCULAR VOLUME 92 FL (80-99); MEAN PLATELET VOLUME 9.3 FL (7.4-10.4); MONOCYTES # (AUTO) 1.1 X 10^3 (0.0-1.0); MONOCYTES % (AUTO) 8 % (0-12); NEUTROPHILS # (AUTO) 12.3 X 10^3 (1.8-7.8); NEUTROPHILS % (AUTO) 84 % (42-75); PLATELET COUNT 188 10^3/uL (130-400); RED CELL DISTRIBUTION WIDTH 14.3 % (10.0-14.5); WHITE BLOOD COUNT 14.6 10^3/uL (4.3-11.0)
[2020-01-30 05:43] LABS: ALBUMIN 2.9 GM/DL (3.2-4.5); POTASSIUM 3.7 MMOL/L (3.6-5.0)
[2020-01-30 05:45] LABS: CALCIUM 7.7 MG/DL (8.5-10.1)
[2020-01-30 05:46] LABS: TOTAL PROTEIN 5.4 GM/DL (6.4-8.2)
[2020-01-30 05:48] LABS: BILIRUBIN,TOTAL 0.6 MG/DL (0.1-1.0)
[2020-01-30 05:49] LABS: CREATININE SERUM 1.66 MG/DL (0.60-1.30)
[2020-01-30] MEDS: inSUlin ASPART (NovoLOG) 1 UNIT/0.01 ML (CHARGE PER UNIT) SC SCH ×4 (05:58→21:52)
[2020-01-30] MEDS: SUCRALFATE 1 GM (CARAFATE) TAB PO SCH ×4 (06:04→21:51)
[2020-01-30] MEDS: RT-ALBUTEROL/IPRATROPIUM 3 ML (DUONEB) VIAL INH SCH ×2 (07:12→18:20)
[2020-01-30] MEDS: UMECLIDINIUM BROMIDE (INCRUSE ELLIPTA) 7'S IH SCH (07:14)
[2020-01-30] MEDS: ADVAIR HFA 115/21 MCG INHALER 8 GM IH SCH ×2 (07:14→18:20)
[2020-01-30] MEDS: PRASUGREL 10 MG (EFFIENT) TABLET PO SCH (08:06)
[2020-01-30] MEDS: HYDROcodone/APAP 5 MG/325 MG (LORTAB) TAB PO PRN ×3 (08:06→18:42)
[2020-01-30] MEDS: ASPIRIN E.C. 81 MG (ECOTRIN) TAB PO SCH (08:06)
[2020-01-30] MEDS: PANTOPRAZOLE 40 MG (PROTONIX) TAB PO SCH ×2 (08:06→21:51)
[2020-01-30] MEDS: FINASTERIDE (PROSCAR) 5 MG TAB PO SCH (08:06)
--- NOTE | 2020-01-30 09:36 | Physical Therapy Evaluation ---
PT Evaluation-General Medical Diagnosis Admission Date Jan 28, 2020 at 00:10 Medical Diagnosis: Rhabdomyolysis Onset Date: Jan 28, 2020 Therapy Diagnosis Therapy Diagnosis: generalized weakness/debility Height/Weight Height (Feet): 5 Height (Inches): 8.00 Weight (Pounds): 192 Weight (Ounces): 0.0 Precautions Precautions/Isolations: Fall Prevention, Standard Precautions Referral Physician: Angelina Reason for Referral: Evaluation/Treatment Medical History Pertinent Medical History: Atrial Fib, Alcoholism, CAD, COPD, DM, Heart Failure, HTN, Neuropathy, Renal Insufficiency, Smoking Current History EMS secondary to weakness and fall on floor x 24 hours Reviewed History: Yes Social History Home: Apartment Current Living Status: caregiver Entry Into Home: Level Entry Prior Prior Level of Function SCALE: Activities may be completed with or without assistive devices. 6-Wybbbidkix-lcfpdqy completes the activity by him/herself with no assistance from a helper. 5-Set-up or Clean-up Assistance-helper sets up or cleans up; patient completes activity. [place] assists only prior to or following the activity. 4-Supervision or Touching Assistance-helper provides verbal cues and/or touching/steadying and/or contact guard assistance as patient completes activity. Assistance may be provided throughout the activity or intermittently. 3-Partial/Moderate Assistance-helper does LESS THAN HALF the effort. [place] lifts, holds or supports trunk or limbs, but provides less than half the effort. 2-Substantial/Maximal Assistance-helper does MORE THAN HALF the effort. [place] lifts or holds trunk or limbs and provides more than half the effort. 3-Vdrxyvxwv-ascske does ALL the effort. Patient does none of the effort to complete the activity. Or, the assistance of 2 or more helpers is required for the patient to complete the activity. If activity was not attempted, code reason: 7-Patient Refused. 9-Not Applicable-not attempted and the patient did not perform the activity before the current illness, exacerbation or injury. 10-Not Attempted due to Environmental Limitations-(lack of equipment, weather restraints, etc.). 88-Not Attempted due to Medical Conditions or Safety Concerns. Bed Mobility: 6 Transfers (B,C,W/C): 6 Gait: 6 Stairs: 9 Indoor Mobility (Ambulation): Independent Stairs: Not Applicalbe Prior Devices Use: Walker PT Evaluation-Current Subjective Patient agrees to PT. Continues to c/o numbness bilateral LE Pain Numeric Pain Scale: 0-No Pain Location: No Pain Reported Objective Patient Orientation: Normal For Age Attachments: Oxygen, Santiago Catheter, IV ROM/Strength ROM Lower Extremities bilateral LE WFL Strength Lower Extremities 3/5 grossly bilateral LE Integumentary/Posture Integumentary refer to nursing notes Bowel Incontinence: No Bladder Incontinence: Santiago Cath Posture WFL Neuromuscular (Tone, Coordination, Reflexes) diminished coordination due to weakness Sensory Vision: Functional Hearing: Functional Sensation Right Lower Extremit: Impaired Sensation Left Lower Extremity: Impaired Transfers Roll Left to Right (QC): 5 Lying to Sitting/Side of Bed(Q: 3 Sit to Stand (QC): 2 Chair/Hcu-em-Gacpl Xfer(QC): 2 patient performed sit to stand to FWW x 3 sets with mod assist/unable to take steps at this time Gait Does the Patient Walk?: No and Walking Goal IS indicated Balance Sitting Static: Normal Sitting Dynamic: Normal Standing Static: Poor Standing Dynamic: Poor Assessment/Needs 69 y.o. male, will benefit from skilled PT to address functional strength and mobility to improve current LOF to safely return to home at maximum LOF. Rehab Potential: Fair PT Short Term Goals Short Term Goals Time Frame: Feb 11, 2020 Roll Left & Right: 3 Sit to lyin Lying to sitting on side of be: 3 Sit to stand: 3 Chair/bvh-hp-xpdbv transfer: 3 Toilet transfer: 3 Walk 10 feet: 3 PT Custodial Goals Custodial Goals PT Marine Erector Goals Time Frame: Feb 18, 2020 Roll Left & Right (QC): 5 Sit to Lying (QC): 5 Lying-Sitting on Side/Bed(QC): 5 Sit to Stand (QC): 5 Chair/Iha-ou-Tmmbd Xfer(QC): 5 Toilet Transfer (QC): 5 Does the Patient Walk: Yes Walk 10 feet (QC): 5 Walk 50ft with 2 Turns (QC): 5 Walk 150 ft (QC): 5 PT Plan Problem List Problem List: Activity Tolerance, Functional Strength, Safety, Balance, Gait, Transfer Treatment/Plan Treatment Plan: Continue Plan of Care Treatment Plan: Bed Mobility, Education, Functional Activity Michel, Functional Strength, Gait, Safety, Therapeutic Exercise, Transfers Treatment Duration: Feb 18, 2020 Frequency: 6 times per week Estimated Hrs Per Day: .25 hour per day Patient and/or Family Agrees t: Yes Discharge Recommendations Therapy Discharge Recommendati: Other, See Comments (ARU) Time/GCodes Time In: 850 Time Out: 913 Total Billed Treatment Time: 23 Total Billed Treatment 1 visit EVMod 23 min YONG TODD PT Jan 30, 2020 09:36
[2020-01-30] MEDS ORDERED: GABA300C PO ×2 (11:47)
[2020-01-30] MEDS ORDERED: BUDE10.2 IH (11:47)
[2020-01-30] MEDS ORDERED: NFBIOT1000 PO (11:47)
[2020-01-30] MEDS ORDERED: FERR325T18 PO (11:47)
[2020-01-30] MEDS ORDERED: POTA10TA36 PO (11:47)
--- NOTE | 2020-01-30 12:12 | NUR ---
SPOKE WITH THE PT AND WENT THRU THE EXT MED HISTORY TO COMPLETE THE MED REC PT WAS ABLE TO TELL ME HIS MEDICATIONS AND HOW/WHEN HE TAKES EACH- ALL INFORMATION PT GAVE ME MATCHES THE EXT MED HISTORY OTC MEDS: TYLENOL ASPIRIN 81 BENADRYL CAFFEINE FLAXSEED OIL MTV BIOTIN BISACODYL BEANO IRON MUCINEX AGRAIN
--- NOTE | 2020-01-30 13:42 | NUR ---
RD ASSESSMENT PMHx: COPD; afib; CAD; hypercholesterolemia; HTN; BPH; renal failure; DM PT INTERACTION: Pt was awake and pleasant during nutrition assessment. Pt states current appetite is getting better, as it had been poor the last several days. Note avg PO intake 20% x2d, per chart review. Pt states following a regular diet at home and has some issues chewing as he is missing his upper teeth. Pt states recent issues with nausea, vomiting, and diarrhea. Note last BM was 6/6, and pt currently on bowel regimen of bisacodyl PRN, per chart review. Pt states no recent wt changes. Note unable to determine recent wt hx, per chart review. Pt states current DM management is "good, and I try to keep it around 200." When discussing that his average is not a good marker of control, pt states his PTSD requires him to have a higher blood glucose level. "My doctor knows all about it and is okay with it." Note unable to determine recent HbA1c, per chart review. ABNORMAL NUTRITION-RELATED LAB VALUES LOW: glu 59; Ca 7.7; Pro 5.4; alb 2.9 HIGH: BUN 22; cr 1.66 Est. kcal needs: 3375-4114 kcal | 20-25 kcal/kg Est. Pro needs: 70-88 g Pro | 0.8-1.0 g Pro/kg PES STATEMENT: Inadequate oral intake (NI-2.1) related to loss of appetite | nausea | vomiting | diarrhea as evidenced by pt interview | avg PO intake 20% x2d INTERVENTION: Continue with current diet order of CHO 60g/m 3snack diet. Add Glucerna (vary) to meals TID, for increased kcal intake. Provides 220 kcal and 10 g Pro per serving. Offered diet education on DM management, but pt declined. "My doctor has it all under control." May attempt to offer again prior to discharge. Will continue to follow and reassess as pt needs, intake, and status change. MONITOR/EVALUATE: PO Intake; Plan of Care; Hydration Status; Weight Status; Lab Values Felix Cole, MS, RD, LD
--- NOTE | 2020-01-30 14:40 | NUR ---
Pastoral care visit.
--- NOTE | 2020-01-30 20:00 | NUR ---
Received orders from Dr. Varma to decrease IV rate from 200ml/hr to 75ml/hr. Will follow order.
--- NOTE | 2020-01-30 21:01 | Progress Note ---
Subjective Subjective/Events-last exam Patient states that he is feeling better. He has not been out of bed yet this AM. Tolerating PO fluids and diet. Liriano in place Review of Systems General: Fatigue Pulmonary: No Dyspnea, No Cough Cardiovascular: No: Chest Pain, Palpitations Gastrointestinal: No: Nausea, Vomiting, Abdominal Pain Neurological: Weakness, Incoordination; No: Confusion Objective Exam Last Set of Vital Signs Vital Signs Date Time Temp Pulse Resp B/P (MAP) Pulse Ox O2 Delivery O2 Flow Rate FiO2 01/30/20 19:00 89 01/30/20 18:23 98 Nasal Cannula 2.00 01/30/20 16:13 36.2 18 159/75 (103) 01/28/20 06:50 21 Capillary Refill : Less Than 3 SecondsLess Than 3 Seconds I&O Intake and Output 01/30/20 00:00 Intake Total 5292 ml Output Total 3100 ml Balance 2192 ml Intake Oral 1292 ml IV Total 4000 ml Output Urine Total 3100 ml General: Alert, Oriented X3, Cooperative, No Acute Distress Lungs: Clear to Auscultation, Normal Air Movement Heart: Regular Rate, No Murmurs Abdomen: Normal Bowel Sounds, Soft, No Tenderness, No Masses Extremities: No Edema, No Tenderness/Swelling, Other (decreased sensation to pain) Skin: No Rashes, No Breakdown Neuro: Normal Speech, Cranial Nerves 3-12 NL Results/Procedures Lab Laboratory Tests 01/30/20 04:55: White Blood Count 14.6H, Red Blood Count 3.31L, Hemoglobin 10.0#L, Hematocrit 31L, Mean Corpuscular Volume 92, Mean Corpuscular Hemoglobin 30, Mean Corpuscular Hemoglobin Concent 33, Red Cell Distribution Width 14.3, Platelet Count 188, Mean Platelet Volume 9.3, Neutrophils (%) (Auto) 84H, Lymphocytes (%) (Auto) 8L, Monocytes (%) (Auto) 8, Eosinophils (%) (Auto) 0, Basophils (%) (Auto) 0, Neutrophils # (Auto) 12.3H, Lymphocytes # (Auto) 1.1, Monocytes # (Auto) 1.1H, Eosinophils # (Auto) 0.0, Basophils # (Auto) 0.0, Sodium Level 135, Potassium Level 3.7, Chloride Level 106, Carbon Dioxide Level 21, Anion Gap 8, Blood Urea Nitrogen 22H, Creatinine 1.66H, Estimat Glomerular Filtration Rate 41, BUN/Creatinine Ratio 13, Glucose Level 59*L, Calcium Level 7.7L, Corrected Calcium 8.6, Total Bilirubin 0.6, Aspartate Amino Transf (AST/SGOT) 32, Alanine Aminotransferase (ALT/SGPT) 54, Alkaline Phosphatase 90, Total Creatine Kinase 2074#H, Total Protein 5.4L, Albumin 2.9L 01/30/20 06:48: Glucometer 84 01/30/20 10:24: Glucometer 227H 01/30/20 16:01: Glucometer 182H Microbiology 01/28/20 Urine Culture - Final, Complete NO GROWTH 01/27/20 Blood Culture - Preliminary, Resulted Staph, Coag Neg (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) Assessment/Plan Assessment/Plan (1) Fall on same level Status: Acute Assessment & Plan: 01/29: Patient on ground for over 24 hrs, lives alone, will likely need SNF placement Qualifiers: Qualified Codes: W18.30XA - Fall on same level, unspecified, initial encounter (2) Rhabdomyolysis Status: Acute Assessment & Plan: 01/29: Cr much improved, decrease IVFs 75 cc/hr, repeat CMP in AM, continue with PT Qualifiers: Qualified Codes: T79.6XXA - Traumatic ischemia of muscle, initial encounter (3) Acute on chronic renal failure Status: Acute Assessment & Plan: 01/29: Baseline 1.3-1.4, decrease IVFs and continue to monitor (4) Acute dehydration Status: Acute (5) 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 Assessment & Plan: 01/29: Continue home insulin (6) Chronic systolic (congestive) heart failure Status: Chronic (7) Coronary artery disease Status: Chronic Qualifiers: Qualified Codes: I25.10 - Atherosclerotic heart disease of [place] coronary artery without angina pectoris (8) Diabetes mellitus, type 2 Status: Chronic Qualifiers: Qualified Codes: E11.65 - Type 2 diabetes mellitus with hyperglycemia; Z79.4 - manager long term care (current) use of insulin (9) Urinary retention due to benign prostatic hyperplasia Status: Chronic Assessment & Plan: 01/29: Will d/c liriano in AM (10) DVT prophylaxis Status: Acute Assessment & Plan: - Lovenox (11) Debility Status: Chronic Assessment & Plan: - Discuss SNF placement Clinical Quality Measures DVT/VTE Risk/Contraindication: Risk Factor Score Per Nursin RFS Level Per Nursing on Admit: 4+=Very High GENNA DUMONT MD Jan 30, 2020 21:00
[2020-01-30] MEDS: GABAPENTIN 300 MG (NEURONTIN) CAP PO SCH (21:51)
[2020-01-30] MEDS: PRAZOSIN 5 MG CAPSULE PO SCH (21:51)
[2020-01-30] MEDS: meTOprolol SUCCINATE 100 MG (TOPROL XL) TAB PO SCH (21:51)
[2020-01-31 00:25] VITALS: BP 125/65
[2020-01-31 04:50] VITALS: BP 164/69
[2020-01-31 05:39] LABS: BASOPHILS % (AUTO) 0 % (0-10); EOSINOPHILS # (AUTO) 0.1 10^3/uL (0.0-0.3); EOSINOPHILS % (AUTO) 1 % (0-10); HEMATOCRIT 29 % (40-54); HEMOGLOBIN 9.6 G/DL (13.3-17.7); LYMPHOCYTES # (AUTO) 0.7 X 10^3 (1.0-4.0); LYMPHOCYTES % (AUTO) 5 % (12-44); MEAN CORPUSCULAR HEMOGLOBIN 30 PG (25-34); MEAN CORPUSCULAR HGB CONC 33 G/DL (32-36); MEAN CORPUSCULAR VOLUME 93 FL (80-99); MEAN PLATELET VOLUME 9.6 FL (7.4-10.4); MONOCYTES # (AUTO) 0.9 X 10^3 (0.0-1.0); MONOCYTES % (AUTO) 7 % (0-12); NEUTROPHILS # (AUTO) 11.4 X 10^3 (1.8-7.8); NEUTROPHILS % (AUTO) 87 % (42-75); PLATELET COUNT 191 10^3/uL (130-400); RED CELL DISTRIBUTION WIDTH 14.1 % (10.0-14.5); WHITE BLOOD COUNT 13.1 10^3/uL (4.3-11.0)
[2020-01-31 06:03] LABS: ALBUMIN 2.9 GM/DL (3.2-4.5)
[2020-01-31 06:04] LABS: POTASSIUM 3.5 MMOL/L (3.6-5.0)
[2020-01-31 06:06] LABS: TOTAL PROTEIN 5.5 GM/DL (6.4-8.2)
[2020-01-31 06:08] LABS: BILIRUBIN,TOTAL 0.6 MG/DL (0.1-1.0)
[2020-01-31] MEDS: inSUlin ASPART (NovoLOG) 1 UNIT/0.01 ML (CHARGE PER UNIT) SC SCH ×4 (06:08→21:17)
[2020-01-31 06:10] LABS: CREATININE SERUM 1.38 MG/DL (0.60-1.30)
[2020-01-31] MEDS: HYDROcodone/APAP 5 MG/325 MG (LORTAB) TAB PO PRN ×2 (06:11→17:45)
[2020-01-31] MEDS: SUCRALFATE 1 GM (CARAFATE) TAB PO SCH ×4 (06:11→21:17)
[2020-01-31] MEDS: 1/2 NS IV SOLUTION 1,000 ML IV SCH (06:15)
[2020-01-31] MEDS: RT-ALBUTEROL/IPRATROPIUM 3 ML (DUONEB) VIAL INH SCH ×2 (06:31→18:08)
[2020-01-31] MEDS: ADVAIR HFA 115/21 MCG INHALER 8 GM IH SCH ×2 (06:31→18:08)
[2020-01-31] MEDS: UMECLIDINIUM BROMIDE (INCRUSE ELLIPTA) 7'S IH SCH (06:32)
[2020-01-31 07:00] VITALS: BP 164/69
[2020-01-31 08:00] VITALS: BP 150/66
[2020-01-31] MEDS: PANTOPRAZOLE 40 MG (PROTONIX) TAB PO SCH ×2 (08:36→21:17)
[2020-01-31] MEDS: FINASTERIDE (PROSCAR) 5 MG TAB PO SCH (08:36)
[2020-01-31] MEDS: ASPIRIN E.C. 81 MG (ECOTRIN) TAB PO SCH (08:36)
[2020-01-31] MEDS: PRASUGREL 10 MG (EFFIENT) TABLET PO SCH (08:36)
--- NOTE | 2020-01-31 10:06 | Physical Therapy Daily Note ---
PT Daily Note-Current Subjective Patient reports he is feeling much better and stronger today. Agrees to PT. Mental Status Patient Orientation: Normal For Age Attachments: Oxygen, Santiago Catheter, IV Transfers SCALE: Activities may be completed with or without assistive devices. 7-Unbakkvxmn-twsmmof completes the activity by him/herself with no assistance from a helper. 5-Set-up or Clean-up Assistance-helper sets up or cleans up; patient completes activity. [place] assists only prior to or following the activity. 4-Supervision or Touching Assistance-helper provides verbal cues and/or touching/steadying and/or contact guard assistance as patient completes activity. Assistance may be provided throughout the activity or intermittently. 3-Partial/Moderate Assistance-helper does LESS THAN HALF the effort. [place] lifts, holds or supports trunk or limbs, but provides less than half the effort. 2-Substantial/Maximal Assistance-helper does MORE THAN HALF the effort. [place] lifts or holds trunk or limbs and provides more than half the effort. 2-Seuqoxksy-wtmhzh does ALL the effort. Patient does none of the effort to complete the activity. Or, the assistance of 2 or more helpers is required for the patient to complete the activity. If activity was not attempted, code reason: 7-Patient Refused. 9-Not Applicable-not attempted and the patient did not perform the activity before the current illness, exacerbation or injury. 10-Not Attempted due to Environmental Limitations-(lack of equipment, weather restraints, etc.). 88-Not Attempted due to Medical Conditions or Safety Concerns. Lying to Sitting/Side of Bed(Q: 5 Sit to Stand (QC): 4 Chair/Kli-vm-Pswbk Xfer(QC): 4 Toilet Transfer (QC): 4 CGA for safety./PT assist for toileting and cleansing Gait Training Does the Patient Walk?: Yes Distance: 10' x 2 Walk 10 feet (QC): 4 Gait Assistive Device: FWW Exercises Supine Ex: Ankle pumps, Quad Set, Heel Slides, Straight leg raise, Hip abd/add Supine Reps: 15 Seated Therapy Exercises: Ankle pumps, Long arc quads, Hip flexion Seated Reps: 15 Assessment Patient declined to ambulate distance on this date. Much improved with strength. Patient up in recliner with waffle cushion in chair under pad. PT to increase activity as tolerated by patient. PT Short Term Goals Short Term Goals Time Frame: Feb 11, 2020 Roll Left & Right: 3 Sit to lyin Lying to sitting on side of be: 3 Sit to stand: 3 Chair/azv-uo-babml transfer: 3 Toilet transfer: 3 Walk 10 feet: 3 PT Longterm Goals Longterm Goals PT Nuclear Criticality Safety Engineer Goals Time Frame: Feb 18, 2020 Roll Left & Right (QC): 5 Sit to Lying (QC): 5 Lying-Sitting on Side/Bed(QC): 5 Sit to Stand (QC): 5 Chair/Mrs-ei-Iqugm Xfer(QC): 5 Toilet Transfer (QC): 5 Does the Patient Walk: Yes Walk 10 feet (QC): 5 Walk 50ft with 2 Turns (QC): 5 Walk 150 ft (QC): 5 PT Plan Treatment/Plan Treatment Plan: Continue Plan of Care Treatment Plan: Bed Mobility, Education, Functional Activity Michel, Functional Strength, Gait, Safety, Therapeutic Exercise, Transfers Treatment Duration: Feb 18, 2020 Frequency: 6 times per week Estimated Hrs Per Day: .25 hour per day Patient and/or Family Agrees t: Yes Time/GCodes Time In: 936 Time Out: 959 Total Billed Treatment Time: 23 Total Billed Treatment 1 visit EX 12 min FA 11 min YONG TODD PT Jan 31, 2020 10:06
--- NOTE | 2020-01-31 11:22 | NUR ---
DISCHARGE PLANNING: Spoke with patient about needs at discharge. He reports he is supposed to home 15 hours of assistance through [facility]. Dr. Varma thinks he would benefit from [facility] at discharge. He reports he had a nurse named Radha who would come out once a week from the hospital...that being said I surmised that he is speaking of [facility] and he did verbalize he would want to use them again. I will notify them of upcoming referral for services.
[2020-01-31 16:29] VITALS: BP 197/77
[2020-01-31] MEDS: GABAPENTIN 300 MG (NEURONTIN) CAP PO SCH (21:17)
[2020-01-31] MEDS: meTOprolol SUCCINATE 100 MG (TOPROL XL) TAB PO SCH (21:17)
[2020-01-31] MEDS: PRAZOSIN 5 MG CAPSULE PO SCH (21:18)
--- NOTE | 2020-01-31 22:02 | Progress Note ---
Subjective Subjective/Events-last exam Patient is feeling much better but still feels weak and not ready to go home. Tolerating PO diet and has ambulated with walker. Review of Systems Pulmonary: No Dyspnea, No Cough Cardiovascular: Edema; No: Chest Pain, Palpitations Gastrointestinal: No: Nausea, Vomiting, Abdominal Pain, Diarrhea, Constipation Musculoskeletal: back pain Neurological: Weakness, Incoordination Objective Exam Last Set of Vital Signs Vital Signs Date Time Temp Pulse Resp B/P (MAP) Pulse Ox O2 Delivery O2 Flow Rate FiO2 01/31/20 20:12 Room Air 01/31/20 18:13 93 01/31/20 16:29 35.7 88 18 197/77 (117) 01/31/20 07:30 2.00 01/31/20 07:00 28 Capillary Refill : Less Than 3 SecondsLess Than 3 Seconds I&O Intake and Output 01/31/20 00:00 Intake Total 3266 ml Output Total 2975 ml Balance 291 ml Intake Oral 1266 ml IV Total 2000 ml Output Urine Total 2975 ml General: Alert, Oriented X3, Cooperative, No Acute Distress HEENT: Mucous Memb Moist/[place] Lungs: Clear to Auscultation, Normal Air Movement Heart: Regular Rate, No Murmurs Abdomen: Normal Bowel Sounds, Soft, No Tenderness, No Masses Extremities: No Tenderness/Swelling, Other (1+ pitting edema bilaterally) Skin: No Rashes, No Breakdown Neuro: Normal Speech, Sensation Intact, Cranial Nerves 3-12 NL Results/Procedures Lab Laboratory Tests 01/31/20 05:07: White Blood Count 13.1H, Red Blood Count 3.18L, Hemoglobin 9.6L, Hematocrit 29L, Mean Corpuscular Volume 93, Mean Corpuscular Hemoglobin 30, Mean Corpuscular Hemoglobin Concent 33, Red Cell Distribution Width 14.1, Platelet Count 191, Mean Platelet Volume 9.6, Neutrophils (%) (Auto) 87H, Lymphocytes (%) (Auto) 5L, Monocytes (%) (Auto) 7, Eosinophils (%) (Auto) 1, Basophils (%) (Auto) 0, Neutrophils # (Auto) 11.4H, Lymphocytes # (Auto) 0.7L, Monocytes # (Auto) 0.9, Eosinophils # (Auto) 0.1, Basophils # (Auto) 0.0, Sodium Level 139, Potassium Level 3.5L, Chloride Level 109H, Carbon Dioxide Level 20L, Anion Gap 10, Blood Urea Nitrogen 15, Creatinine 1.38H, Estimat Glomerular Filtration Rate 51, BUN/Creatinine Ratio 11, Glucose Level 73, Calcium Level 8.0L, Corrected Calcium 8.9, Total Bilirubin 0.6, Aspartate Amino Transf (AST/SGOT) 88H, Alanine Aminotransferase (ALT/SGPT) 58H, Alkaline Phosphatase 123, Total Protein 5.5L, Albumin 2.9L 01/31/20 10:51: Glucometer 180H 01/31/20 15:51: Glucometer 293H 01/31/20 20:05: Glucometer 225H Microbiology 01/28/20 Urine Culture - Final, Complete NO GROWTH 01/27/20 Blood Culture - Preliminary, Resulted Emi Hooper Neg ([employer]) Assessment/Plan Assessment/Plan (1) Fall on same level Status: Acute Assessment & Plan: 01/29: Patient on ground for over 24 hrs, lives alone, will likely need SNF placement 01/30: Patient would like to return home, PT seeing patient Qualifiers: Qualified Codes: W18.30XA - Fall on same level, unspecified, initial encounter (2) Rhabdomyolysis Status: Acute Assessment & Plan: 01/29: Cr much improved, decrease IVFs 75 cc/hr, repeat CMP in AM, continue with PT 01/30: Labs overall much improved Qualifiers: Qualified Codes: T79.6XXA - Traumatic ischemia of muscle, initial encounter (3) Acute on chronic renal failure Status: Acute Assessment & Plan: 01/29: Baseline 1.3-1.4, decrease IVFs and continue to monitor 01/30: Patient at baseline (4) Acute dehydration Status: Acute (5) 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 Assessment & Plan: 01/29: Continue home insulin (6) Chronic systolic (congestive) heart failure Status: Chronic (7) Coronary artery disease Status: Chronic Qualifiers: Qualified Codes: I25.10 - Atherosclerotic heart disease of [place] coronary artery without angina pectoris (8) Diabetes mellitus, type 2 Status: Chronic Qualifiers: Qualified Codes: E11.65 - Type 2 diabetes mellitus with hyperglycemia; Z79.4 - senior care (current) use of insulin (9) Urinary retention due to benign prostatic hyperplasia Status: Chronic Assessment & Plan: 01/29: Will d/c liriano in AM (10) DVT prophylaxis Status: Acute Assessment & Plan: - Lovenox (11) Debility Status: Chronic Assessment & Plan: - Discuss SNF placement 01/30: Plan for HH at discharge Clinical Quality Measures DVT/VTE Risk/Contraindication: Risk Factor Score Per Nursin RFS Level Per Nursing on Admit: 4+=Very High GENNA DUMONT MD Jan 31, 2020 22:02
[2020-02-01 00:28] VITALS: BP 171/68
[2020-02-01] MEDS: inSUlin ASPART (NovoLOG) 1 UNIT/0.01 ML (CHARGE PER UNIT) SC SCH ×3 (05:54→16:12)
[2020-02-01] MEDS: SUCRALFATE 1 GM (CARAFATE) TAB PO SCH ×2 (05:57→11:53)
[2020-02-01 06:27] LABS: BASOPHILS % (AUTO) 0 % (0-10); EOSINOPHILS # (AUTO) 0.1 10^3/uL (0.0-0.3); EOSINOPHILS % (AUTO) 1 % (0-10); HEMATOCRIT 30 % (40-54); HEMOGLOBIN 9.9 G/DL (13.3-17.7); LYMPHOCYTES # (AUTO) 0.7 X 10^3 (1.0-4.0); LYMPHOCYTES % (AUTO) 5 % (12-44); MEAN CORPUSCULAR HEMOGLOBIN 30 PG (25-34); MEAN CORPUSCULAR HGB CONC 33 G/DL (32-36); MEAN CORPUSCULAR VOLUME 93 FL (80-99); MEAN PLATELET VOLUME 9.3 FL (7.4-10.4); MONOCYTES # (AUTO) 0.9 X 10^3 (0.0-1.0); MONOCYTES % (AUTO) 7 % (0-12); NEUTROPHILS # (AUTO) 11.9 X 10^3 (1.8-7.8); NEUTROPHILS % (AUTO) 87 % (42-75); PLATELET COUNT 243 10^3/uL (130-400); RED CELL DISTRIBUTION WIDTH 14.2 % (10.0-14.5); WHITE BLOOD COUNT 13.7 10^3/uL (4.3-11.0)
[2020-02-01 06:30] LABS: ALBUMIN 2.9 GM/DL (3.2-4.5); POTASSIUM 3.7 MMOL/L (3.6-5.0)
[2020-02-01 06:31] LABS: CALCIUM 8.7 MG/DL (8.5-10.1)
[2020-02-01 06:34] LABS: BILIRUBIN,TOTAL 0.7 MG/DL (0.1-1.0)
[2020-02-01 06:36] LABS: CREATININE SERUM 1.23 MG/DL (0.60-1.30)
[2020-02-01] MEDS: RT-ALBUTEROL/IPRATROPIUM 3 ML (DUONEB) VIAL INH SCH (07:01)
[2020-02-01] MEDS: UMECLIDINIUM BROMIDE (INCRUSE ELLIPTA) 7'S IH SCH (07:04)
[2020-02-01] MEDS: ADVAIR HFA 115/21 MCG INHALER 8 GM IH SCH (07:04)
[2020-02-01 08:00] VITALS: BP 190/66
[2020-02-01] MEDS: ASPIRIN E.C. 81 MG (ECOTRIN) TAB PO SCH (08:30)
[2020-02-01] MEDS: PANTOPRAZOLE 40 MG (PROTONIX) TAB PO SCH (08:30)
[2020-02-01] MEDS: PRASUGREL 10 MG (EFFIENT) TABLET PO SCH (08:30)
[2020-02-01] MEDS: FINASTERIDE (PROSCAR) 5 MG TAB PO SCH (08:30)
--- NOTE | 2020-02-01 10:56 | Discharge Summary ---
GENNA DUMONT MD 02/01/20 1056: Diagnosis/Chief Complaint Date of Admission Jan 28, 2020 at 00:10 Date of Discharge Discharge Diagnosis Problems/Diagnosis: (1) Fall on same level Assessment & Plan: 01/29: Patient on ground for over 24 hrs, lives alone, will likely need SNF placement 01/30: Patient would like to return home, PT seeing patient Qualifiers: Qualified Codes: W18.30XA - Fall on same level, unspecified, initial encounter Status: Acute (2) Rhabdomyolysis Assessment & Plan: 01/29: Cr much improved, decrease IVFs 75 cc/hr, repeat CMP in AM, continue with PT 01/30: Labs overall much improved Qualifiers: Qualified Codes: T79.6XXA - Traumatic ischemia of muscle, initial encounter Status: Acute (3) Acute on chronic renal failure Assessment & Plan: 01/29: Baseline 1.3-1.4, decrease IVFs and continue to monitor 01/30: Patient at baseline Status: Acute (4) Acute dehydration Status: Acute (5) 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 Assessment & Plan: 01/29: Continue home insulin Status: Chronic (6) Chronic systolic (congestive) heart failure Status: Chronic (7) Coronary artery disease Qualifiers: Qualified Codes: I25.10 - Atherosclerotic heart disease of [place] coronary a rtery without angina pectoris Status: Chronic (8) Diabetes mellitus, type 2 Qualifiers: Qualified Codes: E11.65 - Type 2 diabetes mellitus with hyperglycemia; Z79.4 - terminologist (current) use of insulin Status: Chronic (9) Urinary retention due to benign prostatic hyperplasia Assessment & Plan: 01/29: Will d/c liriano in AM Status: Chronic (10) DVT prophylaxis Assessment & Plan: - Lovenox Status: Acute (11) Debility Assessment & Plan: - Discuss SNF placement 01/30: Plan for HH at discharge Status: Chronic Discharge Summary-Simple/Stand Consultations Discharge Physical Examination Allergies: Coded Allergies: No Known Drug Allergies (Verified , 07/08/18) Vitals & I&Os Vital Sign - Last 12Hours Date Time Temp Pulse Resp B/P (MAP) Pulse Ox O2 Delivery O2 Flow Rate FiO2 02/01/20 08:00 37.0 83 18 190/66 (107) 94 Room Air 01/31/20 07:30 2.00 01/31/20 07:00 28 Intake and Output 02/01/20 00:00 Intake Total 2624 ml Output Total 1050 ml Balance 1574 ml Hospital Course See final discharge diagnosis. Discharge Instructions to patient/family Please see electronic discharge instructions given to patient. Discharge Medications Reviewed and agree with Discharge Medication list on patient's Discharge Instruction sheet Clinical Quality Measures DVT/VTE Risk/Contraindication: Risk Factor Score Per Nursin RFS Level Per Nursing on Admit: 4+=Very High ODELL BARAHONA 02/01/20 1252: Discharge Summary-Simple/Stand Discharge Physical Examination Allergies: Coded Allergies: No Known Drug Allergies (Verified , 07/08/18) GENNA DUMONT MD Feb 01, 2020 10:56 ODELL BARAHONA Feb 01, 2020 12:52
--- NOTE | 2020-02-01 11:06 | Discharge Summary ---
Discharge Summary Reconcile Patient Problems Problems Reviewed?: Yes Instructions for Patient [place] Assessment/Instructions - Make sure to push fluids for hydration - Patient needs PT and has been encouraged to use a walker at this time Physician to follow Patient: JOYCE Discharge Diet for Home: ADA Diet, Cardiac Diet Hospital Course Date of Admission: Jan 28, 2020 at 00:10 Admission Diagnosis : Family Physician/Provider: [place] Date of Discharge: 02/01/20 Discharge Diagnosis: - Fall - Rhabdomyolysis - Acute on Chronic Renal Failure: At baseline - Bilateral LE Weakness - Normocytic Anemia - IDDM - Peripheral Neuropathy - Chronic CHF Hospital Course: 69 yo M that lives at home alone that had become weak and slide to the ground and was unable to get up. States that he was on the ground for over 24 hrs. Presented with Renal failure and was aggressively hydrated. Cr improved well and patient is at his baseline Cr upon discharge. He started working with PT and was able to ambulate with walker however would benefit from continued PT while at home. He has severe peripheral neuropathy due to uncontrolled DM, discussed the importance of checking his feet and wearing appropriate DM shoes with ambulation. Patient will have close f.u with PCP and will be discharged home with . Labs and Pending Lab Test: Laboratory Tests 01/31/20 15:51: Glucometer 293H 01/31/20 20:05: Glucometer 225H 02/01/20 05:43: White Blood Count 13.7H, Red Blood Count 3.28L, Hemoglobin 9.9L, Hematocrit 30L, Mean Corpuscular Volume 93, Mean Corpuscular Hemoglobin 30, Mean Corpuscular Hemoglobin Concent 33, Red Cell Distribution Width 14.2, Platelet Count 243, Mean Platelet Volume 9.3, Neutrophils (%) (Auto) 87H, Lymphocytes (%) (Auto) 5L, Monocytes (%) (Auto) 7, Eosinophils (%) (Auto) 1, Basophils (%) (Auto) 0, Neutrophils # (Auto) 11.9H, Lymphocytes # (Auto) 0.7L, Monocytes # (Auto) 0.9, Eosinophils # (Auto) 0.1, Basophils # (Auto) 0.0, Sodium Level 140, Potassium Level 3.7, Chloride Level 108H, Carbon Dioxide Level 23, Anion Gap 9, Blood Urea Nitrogen 11, Creatinine 1.23, Estimat Glomerular Filtration Rate 58, BUN/Creatinine Ratio 9, Glucose Level 97, Calcium Level 8.7, Corrected Calcium 9.6, Total Bilirubin 0.7, Aspartate Amino Transf (AST/SGOT) 92H, Alanine Aminotransferase (ALT/SGPT) 66H, Alkaline Phosphatase 184H, Total Protein 6.0L, Albumin 2.9L 02/01/20 05:48: Glucometer 99 Microbiology 01/28/20 Urine Culture - Final, Complete NO GROWTH 01/27/20 Blood Culture - Preliminary, Resulted Emi Hooper Neg ([employer] SANDER) Home Meds Active Reported Biotin 1,000 Mcg Tablet 1,000 Mcg PO DAILY Symbicort 160-4.5 Mcg Inhaler (Budesonide/Formoterol Fumarate) 10.2 Gm Hfa.aer.ad 2 Puff IH BID Ferrous Sulfate 325 Mg Tablet 325 Mg PO DAILY Neurontin (Gabapentin) 300 Mg Capsule 600 Mg PO HS TAKES 2 (300MG) CAPS Neurontin (Gabapentin) 300 Mg Capsule 300 Mg PO DAILY Potassium Chloride 10 Meq Tab.er.prt 10 Meq PO BID Levemir (Insulin Determir) 1,000 Units/10 Ml Soln 50 Units SQ HS Multivitamins (Multivitamin) 1 Each Tablet 1 Each PO DAILY AT NOON Afrin (Oxymetazoline HCl) 15 Ml Mist 1 [place] NS PRN Beano (Kyzwj-X-Vwvvyuekswoyk) 150 Unit Tablet 150 Unit PO QID Mucus Relief (Guaifenesin) 400 Mg Tablet 400 Mg PO PRN PRN Tramadol HCl 50 Mg Tablet 50 Mg PO HS PRN Msvpwlbu-Eseg-Yhfazi Oil Sftgl (Fish Oil/Borage/Flax/Om3,6,9#1) 400 Mg Capsule 1 Cap PO BID Lisinopril 10 Mg Tablet 10 Mg PO DAILY LAST FILLED 08-29-2019 #90 Aspirin EC (Aspirin) 81 Mg Tablet.dr 81 Mg PO DAILY Sucralfate 1 Gm Tablet 1 Gm PO ACHS Paroxetine ER (Paroxetine HCl) 12.5 Mg Tab.er.24h 12.5 Mg PO DAILY Paroxetine HCl 37.5 Mg Tab.er.24h 37.5 Mg PO HS Furosemide 20 Mg Tablet 20 Mg PO DAILY Prazosin HCl 5 Mg Capsule 10 Mg PO HS TAKES 2 (5MG) CAPSULES Tylenol Extra Strength (Acetaminophen) 500 Mg Tablet 500-1,000 Mg PO Q6H PRN Caffeine 200 Mg Tablet 200-400 Mg PO BID PRN Benadryl Allergy (Diphenhydramine HCl) 25 Mg Tablet 50 Mg PO HS PRN Bisacodyl 5 Mg Tablet.dr 10 Mg PO DAILY PRN Metoprolol Succinate 25 Mg Tab.er.24h 25 Mg PO BID Atorvastatin Calcium 80 Mg Tablet 80 Mg PO DAILY Proventil Hfa (Albuterol Sulfate) 6.7 Gm Hfa.aer.ad 2 Puff INH Q6H PRN Finasteride 5 Mg Tablet 5 Mg PO DAILY Pantoprazole Sodium 40 Mg Tablet.dr 40 Mg PO BID Prasugrel HCl 10 Mg Tablet 10 Mg PO DAILY Incruse Ellipta (Umeclidinium [place]) 62.5 Mcg Blst.w.dev 1 Puff INH DAILY Patient Allergies: Coded Allergies: No Known Drug Allergies (Verified , 07/08/18) Height (Feet): 5 Height (Inches): 8.00 Weight (Pounds): 192 Weight (Ounces): 0.0 Home Health Need/Face to Face Date of Face to Face: Feb 01, 2020 Clinical Findings: Generalized weakness and fatigue, Muscle weakness, Unsteady gait I have seen Pt qvvv-cd-sbvy: Yes Discharged To: Home Diagnosis/Conditions: See Above Hospital Course Patient is Homebound due to: Maikol fall risk due to instabilty, Muscle weakness Homebound Status Due to the above stated illness, injury or surgical procedure (medical condition or diagnosis) and associated clinical findings, the patient is homebound because of his/her inability to leave home except with aid of a supportive device and/or person AND leaving the home requires a considerable and taxing effort or is medically contraindicated. Pt req the following assistanc: Walker Home Health Nursing Orders Home Health Services Order: Nursing Services, Rail Car Repairer-Evaluate & Treat, Physical Therapy-Evaluate & Treat Home Health Infusion Therapy Line Start Date: Jan 27, 2020 Therapy Orders Therapy Orders: OT (must have SN or PT order), Physical Therapy, PT to assess for OT Therapy Specific Orders: Teach enviro modifications/safety, Gait training Certify Stmt I certify that this patient is under my care and that I, a nurse practitioner or a physician; a assistant women's soccer coach working with me, had a face to face encounter that - meets the physician face to face encounter requirements with this patient as dated. Discharge Physical Exam General: Alert, Oriented X3, Cooperative, No Acute Distress Lungs: Clear to Auscultation, Normal Air Movement Heart: Regular Rate, No Murmurs Abdomen: Normal Bowel Sounds, Soft, No Tenderness, No Masses Extremities: Other (1+ pitting edema bilaterally) Skin: No Rashes, No Breakdown Neuro: Normal Speech, Cranial Nerves 3-12 NL, Other (Diminished sensation in feet bilaterally, Strength 4/5 LE bilaterally) Psych/Mental Status: Mental Status NL, Mood NL GENNA DUMONT MD Feb 01, 2020 11:04
[2020-02-01] MEDS ORDERED: MTP100TCR PO (11:09)
--- NOTE | 2020-02-01 11:10 | Discharge Summary ---
Discharge [facility] Reconcile Patient Problems Problems Reviewed?: Yes Discharge Medications New, Converted or Re-Newed RX: Transmitted to Pharmacy New Medications: Metoprolol Succinate (Metoprolol Succinate) 100 Mg Tab.er.24h 100 MG PO DAILY@2100, #30 TAB Continued Medications: Acetaminophen (Tylenol Extra Strength) 500 Mg Tablet 500-1000 MG PO Q6H PRN for PAIN-MILD, TAB Albuterol Sulfate (Proventil Hfa) 6.7 Gm Hfa.aer.ad 2 PUFF INH Q6H PRN for SHORTNESS OF BREATH, INHALER Jvisa-J-Mxzfmkjjbtecl (Beano) 150 Unit Tablet 150 UNIT PO QID, TAB Aspirin (Aspirin EC) 81 Mg Tablet.dr 81 MG PO DAILY, TAB Atorvastatin Calcium (Atorvastatin Calcium) 80 Mg Tablet 80 MG PO DAILY, TAB Biotin (Biotin) 1,000 Mcg Tablet 1000 MCG PO DAILY, TAB Bisacodyl (Bisacodyl) 5 Mg Tablet.dr 10 MG PO DAILY PRN for CONSTIPATION-4TH LINE, TAB Budesonide/Formoterol Fumarate (Symbicort 160-4.5 Mcg Inhaler) 10.2 Gm Hfa.aer.ad 2 PUFF IH BID, INHALER Caffeine (Caffeine) 200 Mg Tablet 200-400 MG PO BID PRN for DROWSINESS, TAB Diphenhydramine HCl (Benadryl Allergy) 25 Mg Tablet 50 MG PO HS PRN for ALLERGIES/ANXIETY, TAB Ferrous Sulfate (Ferrous Sulfate) 325 Mg Tablet 325 MG PO DAILY, TAB Finasteride (Finasteride) 5 Mg Tablet 5 MG PO DAILY, TAB Fish Oil/Borage/Flax/Om3,6,9#1 (Tsfsswhv-Jdib-Picdpv Oil Sftgl) 400 Mg Capsule 1 CAP PO BID, CAP Furosemide (Furosemide) 20 Mg Tablet 20 MG PO DAILY, TAB Gabapentin (Neurontin) 300 Mg Capsule 300 MG PO DAILY, CAP Gabapentin (Neurontin) 300 Mg Capsule 600 MG PO HS, CAP TAKES 2 (300MG) CAPS Guaifenesin (Mucus Relief) 400 Mg Tablet 400 MG PO PRN PRN for CONGESTION, TAB Insulin Determir (Levemir) 1,000 Units/10 Ml Soln 50 UNITS SQ HS, EA Lisinopril (Lisinopril) 10 Mg Tablet 10 MG PO DAILY, TAB LAST FILLED 08-29-2019 #90 Multivitamin (Multivitamins) 1 Each Tablet 1 EACH PO DAILY AT NOON, TAB Oxymetazoline HCl (Afrin) 15 Ml Mist 1 SPRAY NS PRN, EA Pantoprazole Sodium (Pantoprazole Sodium) 40 Mg Tablet.dr 40 MG PO BID, TAB Paroxetine HCl (Paroxetine HCl) 37.5 Mg Tab.er.24h 37.5 MG PO HS, TAB Paroxetine HCl (Paroxetine ER) 12.5 Mg Tab.er.24h 12.5 MG PO DAILY, TAB Potassium Chloride (Potassium Chloride) 10 Meq Tab.er.prt 10 MEQ PO BID Prasugrel HCl (Prasugrel HCl) 10 Mg Tablet 10 MG PO DAILY, TAB Prazosin HCl (Prazosin HCl) 5 Mg Capsule 10 MG PO HS, CAP TAKES 2 (5MG) CAPSULES Sucralfate (Sucralfate) 1 Gm Tablet 1 GM PO ACHS, TAB Tramadol HCl (Tramadol HCl) 50 Mg Tablet 50 MG PO HS PRN for PAIN-MODERATE (5-7), TAB Umeclidinium [place] (Incruse Ellipta) 62.5 Mcg Blst.w.dev 1 PUFF INH DAILY, INHALER Discontinued Medications: Metoprolol Succinate (Metoprolol Succinate) 25 Mg Tab.er.24h 25 MG PO BID, TAB GENNA DUMONT MD Feb 01, 2020 11:10
--- NOTE | 2020-02-01 11:46 | NUR ---
FINAL DISCHARGE PLAN: PATIENT WILL DISCHARGE TODAY TO HIS HOME AT [facility]. HE WILL HAVE [facility].
[2020-02-01 16:25] VITALS: BP 190/66
== END 2020-02-01 16:25 | disposition home health service (06) | DRG 683 ==
LOC: EDUNIT# 20:57 → ER 21:03 → 4TH 01-28 00:10
PROVIDERS: ADMIT Internal Medicine; ATTEND Family Medicine
DX: N17.9 Acute kidney failure, unspecified (principal); M62.82 Rhabdomyolysis; I42.9 Cardiomyopathy, unspecified; I13.0 Hypertensive heart and chronic kidney disease with heart failure and stage 1 through stage 4 chronic kidney disease, or unspecified chronic kidney disease; E86.0 Dehydration; N18.9 Chronic kidney disease, unspecified; I50.9 Heart failure, unspecified; M21.372 Foot drop, left foot; E11.42 Type 2 diabetes mellitus with diabetic polyneuropathy; E11.65 Type 2 diabetes mellitus with hyperglycemia; J44.9 Chronic obstructive pulmonary disease, unspecified; R33.9 Retention of urine, unspecified; I25.10 Atherosclerotic heart disease of native coronary artery without angina pectoris; R11.2 Nausea with vomiting, unspecified; R19.7 Diarrhea, unspecified; I73.9 Peripheral vascular disease, unspecified; F43.10 Post-traumatic stress disorder, unspecified; F41.0 Panic disorder [episodic paroxysmal anxiety]; I48.91 Unspecified atrial fibrillation; N40.1 Benign prostatic hyperplasia with lower urinary tract symptoms; K58.9 Irritable bowel syndrome, unspecified; Z91.81 History of falling; Z86.79 Personal history of other diseases of the circulatory system; Z87.891 Personal history of nicotine dependence; Z95.828 Presence of other vascular implants and grafts; Z95.5 Presence of coronary angioplasty implant and graft; Z79.4 Long term (current) use of insulin; Z99.81 Dependence on supplemental oxygen; Z87.11 Personal history of peptic ulcer disease
CPT/HCPCS: 36415; 70450; 71045; 72125; 74176; 80053; 80306; 80320; 81000; 82550; 82962; 83735; 84145; 84484; 85007; 85025; 85027; 86141; 87040; 87088; 93005; 94640; 94760; 96361; 96372; 96374

== ENCOUNTER 2020-08-30 19:29 | Emergency (ER) | payer MEDICARE ==
[~2020-08-30] VITALS: Ht 165 cm; Wt 88.0 kg
[~2020-08-30 19:29] MED LIST changes: +ASPI-1238 PO; -ASPI-983 PO; +FERR325T18 PO; +GABA300C PO; +MTP100TCR PO; +MULT-567 PO; -MULT1TAB69 PO; +NFBIOT1000 PO; -PANT40TA3 PO; +PANT40TA52 PO; +POTA10TA36 PO
[2020-08-30] MEDS ORDERED: ACETAMINOPHEN 325 MG TABLET PO ONE (19:45)
[2020-08-30] MEDS ORDERED: NS IV 1000 ML 1,000 ML IV ONE (19:45)
[2020-08-30] MEDS ORDERED: fentaNYL INJECTION 100 MCG/2 ML AMP IVP ONE (19:45)
[2020-08-30] MEDS ORDERED: ONDANSETRON 4 MG/2 ML (SDV) Z0FRAN IVP ONE (19:45)
[2020-08-30] MEDS ORDERED: PANTOPRAZOLE 40 MG (PROTONIX) VIAL IV ONE (19:45)
--- NOTE | 2020-08-30 19:49 | ED GI ---
General Chief Complaint: Coughing Up Blood Stated Complaint: ABD PAIN/VOMITING Nursing Triage Note: TO ED [facility]IA [facility] TO ROOM 3 WITH C/O AORTIC BYPASS APPROX ONE WEEK AGO AND TODAY VOMITING BLOOD WITH SOME ABD DISTENTION. Sepsis Screen: No Definite Risk Source of Information: Patient, EMS, Old Records Exam Limitations: No Limitations History of Present Illness Date Seen by Provider: Aug 30, 2020 Time Seen by Provider: 19:15 Initial Comments Patient presents to the ER by EMS from home with chief complaint that 3 to [address] Ortiz did a bypass graft on his intra-abdominal aorta at [facility]. He says for the past day or 2 that he has been home he has been doing well getting around as much as usual and then this morning when he woke up he had weakness in both of his legs difficulty moving them and could not stand. He says his weakness is improving but he still does not think he could stand. His home care nurse placed some bedding and pillows at the side of his bed in case he slid out of his bed as he says he has done in the past. He has home health and physical therapy scheduled tomorrow. He says he slid out of bed and called his boys who came over and helped him back into bed and called EMS because after he slid out of bed he vomited and there was blood in it. He is on aspirin and Effient but no blood thinners. He has a history of hemoptysis. He is not having any shortness of air and denies fever chills diarrhea or dysuria. He is having pain about a 7.5 out of 10 in his left abdomen just beside the incision but he says he is also due for another pain pill he has been using oxycodone. He is not having any chest pain, shortness of air, sick contacts, loss of sense of taste or smell. He feels like he was progressing very well until this morning. History of asthma, TIA, coronary artery disease, CKD, COPD, GI bleed, hyperlipidemia, hypertension, ischemic cardiomyopathy, peripheral arterial disease, renal failure, type 2 diabetes on insulin Allergies and Home Medications Allergies Coded Allergies: No Known Drug Allergies (Verified , 07/08/18) Home Medications Acetaminophen 500 Mg Tablet, 500-1,000 MG PO Q6H PRN for PAIN-MILD, (Reported) Albuterol Sulfate 6.7 Gm Hfa.aer.ad, 2 PUFF INH Q6H PRN for SHORTNESS OF BREATH, (Reported) Ofwwx-L-Mgffuofrmogir 150 Unit Tablet, 150 UNIT PO QID, (Reported) Aspirin 81 Mg Tablet.dr, 81 MG PO DAILY, (Reported) Atorvastatin Calcium 80 Mg Tablet, 80 MG PO DAILY, (Reported) Biotin 1,000 Mcg Tablet, 1,000 MCG PO DAILY, (Reported) Bisacodyl 5 Mg Tablet.dr, 10 MG PO DAILY PRN for CONSTIPATION-4TH LINE, (Reported) Budesonide/Formoterol Fumarate 10.2 Gm Hfa.aer.ad, 2 PUFF IH BID, (Reported) Caffeine 200 Mg Tablet, 200-400 MG PO BID PRN for DROWSINESS, (Reported) Diphenhydramine HCl 25 Mg Tablet, 50 MG PO HS PRN for ALLERGIES/ANXIETY, (Reported) Ferrous Sulfate 325 Mg Tablet, 325 MG PO DAILY, (Reported) Finasteride 5 Mg Tablet, 5 MG PO DAILY, (Reported) Fish Oil/Borage/Flax/Om3,6,9#1 400 Mg Capsule, 1 CAP PO BID, (Reported) Furosemide 20 Mg Tablet, 20 MG PO DAILY, (Reported) Gabapentin 300 Mg Capsule, 300 MG PO DAILY, (Reported) Gabapentin 300 Mg Capsule, 600 MG PO HS, (Reported) TAKES 2 (300MG) CAPS Guaifenesin 400 Mg Tablet, 400 MG PO PRN PRN for CONGESTION, (Reported) Insulin Determir 1,000 Units/10 Ml Soln, 50 UNITS SQ HS, (Reported) Lisinopril 10 Mg Tablet, 10 MG PO DAILY, (Reported) LAST FILLED 08-29-2019 #90 Metoprolol Succinate 100 Mg Tab.er.24h, 100 MG PO DAILY@2100 Prescribed by: GENNA DUMONT on 02/01/20 1109 Multivitamin 1 Each Tablet, 1 EACH PO DAILY AT NOON, (Reported) Oxymetazoline HCl 15 Ml Mist, 1 SPRAY NS PRN, (Reported) Pantoprazole Sodium 40 Mg Tablet.dr, 40 MG PO BID, (Reported) Paroxetine HCl 37.5 Mg Tab.er.24h, 37.5 MG PO HS, (Reported) Paroxetine HCl 12.5 Mg Tab.er.24h, 12.5 MG PO DAILY, (Reported) Potassium Chloride 10 Meq Tab.er.prt, 10 MEQ PO BID, (Reported) Prasugrel HCl 10 Mg Tablet, 10 MG PO DAILY, (Reported) Prazosin HCl 5 Mg Capsule, 10 MG PO HS, (Reported) TAKES 2 (5MG) CAPSULES Sucralfate 1 Gm Tablet, 1 GM PO ACHS, (Reported) Tramadol HCl 50 Mg Tablet, 50 MG PO HS PRN for PAIN-MODERATE (5-7), (Reported) Umeclidinium [place] 62.5 Mcg Blst.w.dev, 1 PUFF INH DAILY, (Reported) Patient Home Medication List Home Medication List Reviewed: Yes Review of Systems Review of Systems Constitutional: No chills, No fever, No malaise; weakness EENTM: No Blurred Vision, No Double Vision Respiratory: Denies Cough, Denies Shortness of Air Cardiovascular: Denies Chest Pain, Denies Lightheadedness Gastrointestinal: See HPI, Abdominal Pain; Denies Constipated, Denies Diarrhea; Nausea, Vomiting Genitourinary: Denies Burning, Denies Discharge Musculoskeletal: No back pain, No joint pain All Other Systems Reviewed Negative Unless Noted: Yes Past Jkebysw-Bajnmy-Wjqfrp Hx Patient Social History Alcohol Use: Denies Use Number of Drinks Today: AA Alcohol Beverage of Choice: Beer Recreational Drug Use: No Smoking Status: Former Smoker Type Used: Cigarettes Former Smoker, Quit: Aug 24, 2018 2nd Hand Smoke Exposure: No Recent Foreign Travel: No Contact w/Someone Who Travel: No Recent Infectious Disease Expo: No Recent Hopitalizations: Yes (AORTIC BYPASS) Physical Abuse: No Sexual Abuse: No Mistreated: No Fear: No Immunizations Up To Date Tetanus Booster (TDap): Unknown Date of Pneumonia Vaccine: Dec 02, 2016 Date of Influenza Vaccine: May 24, 2019 Seasonal Allergies Seasonal Allergies: No Past Medical History Surgeries: Yes (3 STENTS IN LEFT LEG AND 3 STENTS RIGHT LEG; AORTIC BYPASS) Abdominal, Cardiac, Coronary Stent Respiratory: Yes (CONT O2 AT NIGHT) Asthma, COPD Currently Using CPAP: No Currently Using BIPAP: No Cardiac: Yes Atrial Fibrillation, Cardiomyopathy, Coronary Artery Disease, Hypertension, Peripheral Vascular Neurological: Yes (PTSD) Sexually Transmitted Disease: No HIV/AIDS: No Genitourinary: Yes Benign Prostatic Hyperpl, Kidney Infection, Prostate Problems, Renal Failure Gastrointestinal: Yes (GI BLEED AUG 2018) Gastrointestinal Bleed, Irritable Bowel Musculoskeletal: Yes Back Injury Endocrine: Yes Diabetes, Insulin dep HEENT: Yes (Are likely dry eyes) Loss of Vision: Bilateral Hearing Impairment: Denies Cancer: No Psychosocial: Yes Anxiety, PTSD Integumentary: No Blood Disorders: No Adverse Reaction/Blood Tranf: No Family Medical History Asthma Cardiovascular disease Completed stroke Dementia Hypertension Myocardial infarction Respiratory disorder Visual disorder No Pertinent Family Hx Physical Exam Vital Signs Vital Signs - First Documented 08/30/20 19:32 Temp 37.8 Pulse 90 Resp 18 B/P (MAP) 126/68 (87) O2 Delivery Room Air Capillary Refill : Less Than 3 Seconds Height/Weight/BMI Height: 5'8.00" Weight: 192lbs. 0.0oz. 87.159426gq; 32.00 BMI Method:Stated General Appearance: mild distress, other (Disheveled, chronic illness) HEENT: PERRL/EOMI, pharynx normal Neck: full range of motion, supple Respiratory: lungs clear, normal breath sounds, no respiratory distress, no accessory muscle use Cardiovascular: normal peripheral pulses, regular rate, rhythm Peripheral Pulses: 2+ Radial Pulses (R), 2+ Radial Pulses (L) Gastrointestinal: normal bowel sounds, soft, tenderness (Along the stapled incision line very well erythema), other (No pulsatile mass) Extremities: normal range of motion, non-tender, normal inspection, no pedal edema Neurologic/Psychiatric: no motor/sensory deficits (Moves his lower extremities but 4 out of 5 strength bilateral lower extremities versus upper extremities 5 out of 5 bilateral), alert, normal mood/affect, oriented x 3 Skin: normal color, warm/dry Progress/Results/Core Measures Results/Orders Lab Results Laboratory Tests Test 08/30/20 19:35 08/30/20 21:50 Range/Units White Blood Count 12.9 H 4.3-11.0 10^3/uL Red Blood Count 3.35 L 4.30-5.52 10^6/uL Hemoglobin 9.7 L 13.3-17.7 g/dL Hematocrit 31 L 40-54 % Mean Corpuscular Volume 91 80-99 fL Mean Corpuscular Hemoglobin 29 25-34 pg Mean Corpuscular Hemoglobin Concent 32 32-36 g/dL Red Cell Distribution Width 14.1 10.0-14.5 % Platelet Count 369 130-400 10^3/uL Mean Platelet Volume 9.3 9.0-12.2 fL Immature Granulocyte % (Auto) 1 % Neutrophils (%) (Auto) 85 H 42-75 % Lymphocytes (%) (Auto) 7 L 12-44 % Monocytes (%) (Auto) 6 0-12 % Eosinophils (%) (Auto) 1 0-10 % Basophils (%) (Auto) 0 0-10 % Neutrophils # (Auto) 10.9 H 1.8-7.8 10^3/uL Lymphocytes # (Auto) 0.9 L 1.0-4.0 10^3/uL Monocytes # (Auto) 0.8 0.0-1.0 10^3/uL Eosinophils # (Auto) 0.1 0.0-0.3 10^3/uL Basophils # (Auto) 0.0 0.0-0.1 10^3/uL Immature Granulocyte # (Auto) 0.2 H 0.0-0.1 10^3/uL Neutrophils % (Manual) 88 % Lymphocytes % (Manual) 8 % Monocytes % (Manual) 4 % Blood Morphology Comment NORMAL Sodium Level 142 135-145 MMOL/L Potassium Level 3.4 L 3.6-5.0 MMOL/L Chloride Level 101 98-107 MMOL/L Carbon Dioxide Level 30 21-32 MMOL/L Anion Gap 11 5-14 MMOL/L Blood Urea Nitrogen 9 7-18 MG/DL Creatinine 1.49 H 0.60-1.30 MG/DL Estimat Glomerular Filtration Rate 47 BUN/Creatinine Ratio 6 Glucose Level 144 H 70-105 MG/DL Calcium Level 7.7 L 8.5-10.1 MG/DL Corrected Calcium 8.7 8.5-10.1 MG/DL Total Bilirubin 0.5 0.1-1.0 MG/DL Aspartate Amino Transf (AST/SGOT) 98 H 5-34 U/L Alanine Aminotransferase (ALT/SGPT) 36 0-55 U/L Alkaline Phosphatase 116 40-136 U/L C-Reactive Protein High Sensitivity 4.41 H 0.00-0.50 MG/DL Total Protein 5.4 L 6.4-8.2 GM/DL Albumin 2.8 L 3.2-4.5 GM/DL Lipase 27 8-78 U/L My Orders Orders - ADE COLLINS Fentanyl Injection (Sublimaze Injection (08/30/20 19:45) Ondansetron Injection (Zofran Injectio (08/30/20 19:45) Pantoprazole Injection (Protonix Injecti (08/30/20 19:45) Ed Iv/Invasive Line Start (08/30/20 19:39) Ns Iv 1000 Ml (Sodium Chloride 0.9%) (08/30/20 19:45) Cbc With Automated Diff (08/30/20 19:39) Lipase (08/30/20 19:39) Comprehensive Metabolic Panel (08/30/20 19:39) Ua Culture If Indicated (08/30/20 19:39) Hs C Reactive Protein (08/30/20 19:39) Acetaminophen Tablet/Caplet (Tylenol T (08/30/20 19:45) Chest 1 View, Ap/Pa Only (08/30/20 19:42) Ct Angio Abd/Pelv W Wo (08/30/20 19:39) Manual Differential (08/30/20 19:35) Iohexol Injection (Omnipaque 350 Mg/Ml 1 (08/30/20 20:30) Received Contrast (Hold Metformin- Contr (08/30/20 20:30) Ns (Ivpb) (Sodium Chloride 0.9% Ivpb Bag (08/30/20 20:30) Oxycodone/Apap 7.5/325mg Tab (Percocet (08/30/20 22:00) Medications Given in ED Current Medications Medications Dose Ordered Sig/Maryjo Route Start Time Stop Time Status Last Admin Dose Admin Acetaminophen 650 mg ONCE ONCE PO 08/30/20 19:45 08/30/20 19:46 DC 08/30/20 19:50 650 MG Fentanyl Citrate 50 mcg ONCE ONCE IVP 08/30/20 19:45 08/30/20 19:46 DC 08/30/20 19:52 50 MCG Iohexol 100 ml ONCE ONCE IV 08/30/20 20:30 08/30/20 20:31 DC 08/30/20 20:25 100 ML Ondansetron HCl 4 mg ONCE ONCE IVP 08/30/20 19:45 08/30/20 19:46 DC 08/30/20 19:51 4 MG Pantoprazole 40 mg ONCE ONCE IV 08/30/20 19:45 08/30/20 19:46 DC 08/30/20 19:52 40 MG Sodium Chloride 100 ml ONCE ONCE IV 08/30/20 20:30 08/30/20 20:31 DC 08/30/20 20:25 80 ML Sodium Chloride 1,000 ml @ 0 mls/hr Q0M ONCE IV 08/30/20 19:45 08/30/20 19:46 DC 08/30/20 19:51 1,000 MLS/HR Vital Signs/I&O 08/30/20 08/30/20 08/30/20 19:32 19:50 19:57 Temp 37.8 37.8 Pulse 90 Resp 18 B/P (MAP) 126/68 (87) O2 Delivery Room Air Room Air Blood Pressure Mean: 87 Progress Progress Note #1: Time: 19:48 Progress Note Aseptic vital signs but has a temperature of 37.8. Plan to give him some Tylenol and look for signs of infection. He has a small patch of area around the incision in the lower third that could be mildly inflamed and is tender but is not necessarily cellulitis. He is not septic. Plan to get a CT angiogram of his abdomen pelvis since he was having some vomiting of blood but his previous history includes GI bleeds and hemoptysis and he is on Effient and aspirin. If he is not needing a blood transfusion then this can be worked up further outpatient. We will give him some fentanyl and after his CT angiogram if there is nothing surgical we can put him back on his oral pills. He says he does not feel safe at home with this change and it may be reasonable for him to pursue inpatient physical therapy as opposed to outpatient in-home therapy like he was doing. We will give him a liter of fluids and readdress his symptoms. Progress Note #2: Time: 22:04 Progress Note Patient's labs are largely unremarkable. He has had no material deterioration during his stay. He had no nausea or vomiting after the initial dose of Zofran. He says his pain was significantly improved with the fentanyl but is starting to come back so we ordered some oxycodone. He is comfortable. We discussed staying for inpatient rehab versus going home. The patient says he did a week and a half of inpatient rehab at [facility] and would like to try and do rehab at home. He has staff coming tomorrow. He is calling his son for a ride. He says his children live just a few blocks away from him and he has physical therapy and home health nurses coming out. We have instructed him to call Thaddeus Guerra if he feels he is not able to make it or return to the ER and we can help him get into a rehab inpatient program. Patient is okay with this plan. He says he would really like to try and make it at home. Diagnostic Imaging Diagonstic Imaging: Xray Plain Films/CT/US/NM/MRI: chest Comments NAME: [facility] REC#: [id number] PT STATUS: REG ER : 1950 PHYSICIAN: ADE COLLINS MD ADMIT DATE: 08/30/20/ER Draft Date of Exam:08/30/20 CHEST 1 VIEW, AP/PA ONLY INDICATION: Hemoptysis. Post aorto iliac bypass. Comparison with 01/27/2020. FINDINGS: Portable chest. The lungs are well-aerated and clear. The heart is not enlarged. No pleural effusions or pericardial effusion. IMPRESSION: Negative portable chest. Dictated on workstation # [id number] Dict: 08/30/202041 Trans: 08/30/202045 CVB [id number] Interpreted by: ALEXA ALCANTARA MD Electronically signed by: Reviewed: Reviewed by Me Diagonstic Imaging: CT (Angiogram) Plain Films/CT/US/NM/MRI: abdomen, pelvis Comments [facility] [place] NAME: [facility] REC#: [id number] PT STATUS: REG ER : 1950 PHYSICIAN: ADE COLLINS MD ADMIT DATE: 08/30/20/ER Draft Date of Exam:08/30/20 CT ANGIO ABD/PELV W WO INDICATION: Hemoptysis. Abdominal distention. History of aortic bypass [address] scan abdomen without contrast from 01/27/2020. FINDINGS: There is good opacification of the aorta and abdominal vessels. No evidence of aortic aneurysm or dissection. There is diffuse atherosclerotic disease. There is hemodynamic stenosis at the takeoff of the left renal artery estimated 80% short segment in nature. Celiac and SMA patent. Aorta bifemoral bypass graft present and are patent. There is no evidence of extravasation of contrast within the peritoneal space. There are several pills within the stomach. There is some adjacent hyperdense material about the pelvis which may represent dissolving medication. There is no evidence of bleeding within the antrum or duodenum. Bowel gas pattern appears normal throughout. No evidence of diverticulitis or appendicitis. Bladder is normal. Liver appears normal. Gallbladder and bile ducts are normal. Pancreas and spleen are normal. The adrenal glands and kidneys appear normal. No intra-abdominal adenopathy of pathologic size. Midline abdominal incision noted with skin candice. No bony lesions are demonstrated. IMPRESSION: 1. No evidence of active extravasation of contrast. The aortoiliac graft is patent. 2. The densities in the cardia of the stomach most likely representing dissolving medications. 3. No findings are seen that would suggest abscess. Dictated on workstation # [id number] Dict: 08/30/202037 Trans: 08/30/202044 [facility] [id number] Interpreted by: ALEXA ALCANTARA MD Electronically signed by: Reviewed: Reviewed by Me Departure Impression Primary Impression: Fall from bed, initial encounter Additional Impression: Hemoptysis, unspecified Disposition: HOME, SELF-CARE Condition: Improved Departure-Patient Inst. [place]: [facility] [place] (PCP/Family) Primary Care Physician Patient Instructions: Coughing up Blood Add. Discharge Instructions: Drink plenty of fluids. Follow-up with home health tomorrow. Return to the ER or follow-up with your primary care doctor if you are having difficulty making at home and would like to try inpatient rehab again. Continue to take your medications as prescribed. Ondansetron 1 tablet every 6 hours under the tongue as necessary for nausea or vomiting. All discharge instructions reviewed with patient and/or family. Voiced understanding. Scripts Ondansetron (Ondansetron Odt) 4 Mg Tab.rapdis 4 MG PO Q6H PRN for NAUSEA/VOMITING, #8 TAB 0 Refills Prov: ADE COLLINS 08/30/20 ADE COLLINS Aug 30, 2020 19:49
[2020-08-30 19:58] LABS: BASOPHILS % (AUTO) 0 % (0-10); EOSINOPHILS # (AUTO) 0.1 10^3/uL (0.0-0.3); EOSINOPHILS % (AUTO) 1 % (0-10); HEMATOCRIT 31 % (40-54); HEMOGLOBIN 9.7 g/dL (13.3-17.7); LYMPHOCYTES # (AUTO) 0.9 10^3/uL (1.0-4.0); LYMPHOCYTES % (AUTO) 7 % (12-44); MEAN CORPUSCULAR HEMOGLOBIN 29 pg (25-34); MEAN CORPUSCULAR HGB CONC 32 g/dL (32-36); MEAN CORPUSCULAR VOLUME 91 fL (80-99); MEAN PLATELET VOLUME 9.3 fL (9.0-12.2); MONOCYTES # (AUTO) 0.8 10^3/uL (0.0-1.0); MONOCYTES % (AUTO) 6 % (0-12); NEUTROPHILS # (AUTO) 10.9 10^3/uL (1.8-7.8); NEUTROPHILS % (AUTO) 85 % (42-75); PLATELET COUNT 369 10^3/uL (130-400); WHITE BLOOD COUNT 12.9 10^3/uL (4.3-11.0)
[2020-08-30 20:00] LABS: ALBUMIN 2.8 GM/DL (3.2-4.5); BILIRUBIN,TOTAL 0.5 MG/DL (0.1-1.0); CALCIUM 7.7 MG/DL (8.5-10.1); CREATININE SERUM 1.49 MG/DL (0.60-1.30); POTASSIUM 3.4 MMOL/L (3.6-5.0); TOTAL PROTEIN 5.4 GM/DL (6.4-8.2)
[2020-08-30] MEDS ORDERED: NS 100 ML (IVPB) BAG IV ONE (20:30)
[2020-08-30] MEDS ORDERED: HOLD METFORMIN - RECEIVED CONTRAST 20 ML VIAL IV SCH (20:30)
[2020-08-30] MEDS ORDERED: IOHEXOL 350 MG/ML 100 ML (OMNIPAQUE 350) VIAL IV ONE (20:30)
[2020-08-30 20:33] LABS: LYMPHOCYTES % (MANUAL) 8 %; MONOCYTES % (MANUAL) 4 %; NEUTROPHILS % (MANUAL) 88 %; RBC MORPH NORMAL
--- NOTE | 2020-08-30 20:46 | Diagnostic Imaging Report ---
INDICATION: Hemoptysis. Abdominal distention. History of aortic bypass [address] scan abdomen without contrast from 01/27/2020. FINDINGS: There is good opacification of the aorta and abdominal vessels. No evidence of aortic aneurysm or dissection. There is diffuse atherosclerotic disease. There is hemodynamic stenosis at the takeoff of the left renal artery estimated 80% short segment in nature. Celiac and SMA patent. Aorta bifemoral bypass graft present and are patent. There is no evidence of extravasation of contrast within the peritoneal space. There are several pills within the stomach. There is some adjacent hyperdense material about the pelvis which may represent dissolving medication. There is no evidence of bleeding within the antrum or duodenum. Bowel gas pattern appears normal throughout. No evidence of diverticulitis or appendicitis. Bladder is normal. Liver appears normal. Gallbladder and bile ducts are normal. Pancreas and spleen are normal. The adrenal glands and kidneys appear normal. No intra-abdominal adenopathy of pathologic size. Midline abdominal incision noted with skin candice. No bony lesions are demonstrated. IMPRESSION: 1. No evidence of active extravasation of contrast. The aortoiliac graft is patent. 2. The densities in the cardia of the stomach most likely representing dissolving medications. 3. No findings are seen that would suggest abscess. Dictated by: Dictated on workstation # [id number]
--- NOTE | 2020-08-30 20:46 | Diagnostic Imaging Report ---
INDICATION: Hemoptysis. Post aorto iliac bypass. Comparison with 01/27/2020. FINDINGS: Portable chest. The lungs are well-aerated and clear. The heart is not enlarged. No pleural effusions or pericardial effusion. IMPRESSION: Negative portable chest. Dictated by: Dictated on workstation # [id number]
[2020-08-30 21:56] LABS: BILIRUBIN,URINE NEGATIVE (NEGATIVE); CLARITY,URINE CLEAR; COLOR,URINE YELLOW; GLUCOSE, URINE (UA) NEGATIVE (NEGATIVE); KETONES,URINE NEGATIVE (NEGATIVE); LEUKOCYTE ESTERASE ,URINE NEGATIVE (NEGATIVE); NITRITE,URINE NEGATIVE (NEGATIVE); PROTEIN,URINE 1+ (NEGATIVE)
[2020-08-30] MEDS ORDERED: oxyCODONE/APAP 7.5-325 MG (PERCOCET 7.5) TABLET PO ONE (22:00)
[2020-08-30 22:05] LABS: RBC,URINE 0-2 /HPF
[2020-08-30 22:06] LABS: BACTERIA,URINE TRACE /HPF
[2020-08-30] MEDS ORDERED: ONDA4TAB11 PO (22:07)
[2020-08-30] MEDS ORDERED: RX-ONDANSETRON 4 MG ODT (ZOFRAN) PPK #4 PO STA (22:38)
[2020-08-30 22:42] VITALS: BP 151/68
== END 2020-08-30 22:55 | disposition home or self-care (01) ==
LOC: EDUNIT# 19:29 → ER 19:30
DX: R04.2 Hemoptysis (principal); R10.9 Unspecified abdominal pain; I12.9 Hypertensive chronic kidney disease with stage 1 through stage 4 chronic kidney disease, or unspecified chronic kidney disease; E11.22 Type 2 diabetes mellitus with diabetic chronic kidney disease; N18.9 Chronic kidney disease, unspecified; I25.10 Atherosclerotic heart disease of native coronary artery without angina pectoris; I48.91 Unspecified atrial fibrillation; E78.5 Hyperlipidemia, unspecified; J44.9 Chronic obstructive pulmonary disease, unspecified; K21.9 Gastro-esophageal reflux disease without esophagitis; F41.9 Anxiety disorder, unspecified; F43.10 Post-traumatic stress disorder, unspecified; N40.0 Benign prostatic hyperplasia without lower urinary tract symptoms; Z87.891 Personal history of nicotine dependence; Z86.73 Personal history of transient ischemic attack (TIA), and cerebral infarction without residual deficits; Z95.5 Presence of coronary angioplasty implant and graft; Z95.1 Presence of aortocoronary bypass graft; Z79.82 Long term (current) use of aspirin; Z79.51 Long term (current) use of inhaled steroids; Z79.4 Long term (current) use of insulin; W06.XXXA Fall from bed, initial encounter
CPT/HCPCS: 36415; 71045; 74174; 80053; 81000; 83690; 85007; 85027; 86141

== ENCOUNTER → 2020-10-17 | Outpatient (CLI) | payer MEDICARE ==
[~2020-10-17] MED LIST changes: -LISI-556 PO; +LISI-729 PO; -LISI10TA2 PO; +LISI10TA25 PO; +ONDA4TAB11 PO
[2020-10-17 10:30] LABS: CREATININE SERUM 1.96 MG/DL (0.60-1.30)
--- NOTE | 2020-10-17 14:01 | Diagnostic Imaging Report ---
PROCEDURE: CT chest without contrast. TECHNIQUE: Multiple contiguous axial images were obtained through the chest without the use of intravenous contrast. Auto Exposure Controls were utilized during the CT exam to meet ALARA standards for radiation dose reduction. DATE: October 17, 2020. COMPARISON: Chest radiograph August 30, 2020. CT chest September 07, 2019, May 27, 2019, April 06, 2019, and February 22, 2019. INDICATION: 70-year-old male, cough. PROCEDURE: Axial noncontrasted CT images of the chest. Noncontrasted limits the evaluation of the mediastinum and vascular structures. FINDINGS: There are upper lobe predominant findings of centrilobular emphysema. There is no identified pulmonary nodule. There is no lung mass. There is no focal airspace consolidation. There is no pneumothorax. There is no pleural effusion. The central airways are patent. The heart is not enlarged. There are coronary artery calcifications and additional areas of atherosclerotic disease. There is no pericardial effusion. There is no identified abnormally enlarged mediastinal or axillary lymph node which meets CT size criteria for adenopathy. There is stranding along the midline anterior abdominal wall. Correlation for any recent intervention may be of benefit. There is no identified focal fluid collection at this site or otherwise noted. The additional evaluation of the imaged portions of the upper abdomen is unremarkable. There is no acute bony abnormality. IMPRESSION: 1. Findings of upper lobe predominant centrilobular emphysema without pulmonary nodule or lung mass. 2. No acute cardiopulmonary abnormality. Dictated by: Dictated on workstation # [id number]
== END ==
LOC: RAD 09:55
PROVIDERS: ATTEND Nurse Practitioner Family
DX: J43.2 Centrilobular emphysema (principal)
CPT/HCPCS: 36415; 71250; 82565; 84520

== ENCOUNTER 2021-09-18 10:30 | Emergency (ER) | payer MEDICARE ==
[~2021-09-18] VITALS: Ht 165 cm; Wt 83.6 kg
[~2021-09-18 10:30] MED LIST changes: -ALPH1TAB8 PO; +BEANO150 UNI1 PO; +GUAI400T62 PO; -GUAI400T85 PO; -LISI-729 PO; -LISI2.5T PO; +LISI2.5T13 PO; +LISI5TAB20 PO; +MIRT-69 PO; -MIRT30TA6 PO; -OMEP40CA27 PO; +OMEP40CA6 PO; -POLY17PO31 PO; +POLY17PO54 PO; -POTA10TA36 PO; +POTA10TA37 PO
[2021-09-18 10:33] VITALS: BP 118/75
[2021-09-18] MEDS ORDERED: ONDANSETRON 4 MG/2 ML (SDV) Z0FRAN IVP ONE (10:45)
[2021-09-18 10:46] LABS: BASOPHILS # (AUTO) 0.1 10^3/uL (0.0-0.1); BASOPHILS % (AUTO) 0 % (0-10); EOSINOPHILS # (AUTO) 0.2 10^3/uL (0.0-0.3); EOSINOPHILS % (AUTO) 2 % (0-10); HEMATOCRIT 37 % (40-54); HEMOGLOBIN 11.7 g/dL (13.3-17.7); LYMPHOCYTES # (AUTO) 2.7 10^3/uL (1.0-4.0); LYMPHOCYTES % (AUTO) 22 % (12-44); MEAN CORPUSCULAR HEMOGLOBIN 30 pg (25-34); MEAN CORPUSCULAR HGB CONC 32 g/dL (32-36); MEAN CORPUSCULAR VOLUME 95 fL (80-99); MEAN PLATELET VOLUME 9.9 fL (9.0-12.2); MONOCYTES # (AUTO) 0.8 10^3/uL (0.0-1.0); MONOCYTES % (AUTO) 7 % (0-12); NEUTROPHILS # (AUTO) 8.2 10^3/uL (1.8-7.8); NEUTROPHILS % (AUTO) 68 % (42-75); PLATELET COUNT 255 10^3/uL (130-400)
--- NOTE | 2021-09-18 10:46 | ED General ---
General Stated Complaint: N/V Source of Information: Patient Exam Limitations: No Limitations History of Present Illness Date Seen by Provider: Sep 18, 2021 Time Seen by Provider: 10:43 Initial Comments To ER by EMS from home with reports of nausea vomiting diarrhea onset this morning. He had shrimp that he ordered last night from [employer]. He left out overnight and ate for breakfast. Then he began vomiting and having diarrhea. Timing/Duration: 1-2 Days Severity: Moderate Associated Systoms: Denies Symptoms Allergies and Home Medications Allergies Coded Allergies: No Known Drug Allergies (Verified , 07/08/18) Patient Home Medication List Home Medication List Reviewed: Yes Acetaminophen (Tylenol Extra Strength) 500 Mg Tablet, 500-1,000 MG PO Q6H PRN for PAIN-MILD, (Reported) Entered as Reported by: PEARL SINGLETARY on 12/09/18 1109 Albuterol Sulfate (Proventil Hfa) 6.7 Gm Hfa.aer.ad, 2 PUFF INH Q6H PRN for SHORTNESS OF BREATH, (Reported) Entered as Reported by: BETTIE ANGLIN on 12/02/18 1014 Dmjdf-P-Anhqfikouydub (Beano) 150 Unit Tablet, 150 UNIT PO QID, (Reported) Entered as Reported by: CHRISTOPHER PETERS on 11/07/19 1257 Aspirin (Aspirin EC) 81 Mg Tablet., 81 MG PO DAILY, (Reported) Entered as Reported by: PEARL SINGLETARY on 02/23/19 0900 Atorvastatin Calcium (Atorvastatin Calcium) 80 Mg Tablet, 80 MG PO DAILY, (Reported) Entered as Reported by: PEARL SINGLETARY on 12/09/18 1109 Biotin (Biotin) 1,000 Mcg Tablet, 1,000 MCG PO DAILY, (Reported) Entered as Reported by: SHANTI BENJAMIN on 01/30/20 1147 Bisacodyl (Bisacodyl) 5 Mg Tablet.dr, 10 MG PO DAILY PRN for CONSTIPATION-4TH LINE, (Reported) Entered as Reported by: PEARL SINGLETARY on 12/09/18 1109 Budesonide/Formoterol Fumarate (Symbicort 160-4.5 Mcg Inhaler) 10.2 Gm Hfa.aer.ad, 2 PUFF IH BID, (Reported) Entered as Reported by: SHANTI BENJAMIN on 01/30/20 1147 Caffeine (Caffeine) 200 Mg Tablet, 200-400 MG PO BID PRN for DROWSINESS, (Reported) Entered as Reported by: PEARL SINGLETARY on 12/09/18 1109 Diphenhydramine HCl (Benadryl Allergy) 25 Mg Tablet, 50 MG PO HS PRN for ALLERGIES/ANXIETY, (Reported) Entered as Reported by: PEARL SINGLETARY on 12/09/18 1109 Ferrous Sulfate (Ferrous Sulfate) 325 Mg Tablet, 325 MG PO DAILY, (Reported) Entered as Reported by: SHANTI BENJAMIN on 01/30/20 1147 Finasteride (Finasteride) 5 Mg Tablet, 5 MG PO DAILY, (Reported) Entered as Reported by: BETTIE ANGLIN on 12/02/18 1012 Fish Oil/Borage/Flax/Om3,6,9#1 (Tyqlrmch-Mwfg-Ymfrdd Oil Sftgl) 400 Mg Capsule, 1 CAP PO BID, (Reported) Entered as Reported by: PEARL SINGLETARY on 02/23/19 09 Furosemide (Furosemide) 20 Mg Tablet, 20 MG PO DAILY, (Reported) Entered as Reported by: PEARL SINGLETARY on 02/23/19 09 Gabapentin (Neurontin) 300 Mg Capsule, 300 MG PO DAILY, (Reported) Entered as Reported by: SHANTI BENJAMIN on 01/30/20 1147 Gabapentin (Neurontin) 300 Mg Capsule, 600 MG PO HS, (Reported) Entered as Reported by: SHANTI BENJAMIN on 01/30/20 1147 Guaifenesin (Mucus Relief) 400 Mg Tablet, 400 MG PO PRN PRN for CONGESTION, (Reported) Entered as Reported by: CHRISTOPHER PETERS on 11/07/19 1257 Insulin Determir (Levemir) 1,000 Units/10 Ml Soln, 50 UNITS SQ HS, (Reported) Entered as Reported by: CHRISTOPHER PETERS on 11/07/19 1257 Lisinopril (Lisinopril) 10 Mg Tablet, 10 MG PO DAILY, (Reported) Entered as Reported by: PEARL SINGLETARY on 02/23/19 0900 Metoprolol Succinate (Metoprolol Succinate) 100 Mg Tab.er.24h, 100 MG PO DAILY@2100 Prescribed by: GENNA DUMONT on 02/01/20 1109 Multivitamin (Multivitamins) 1 Each Tablet, 1 EACH PO DAILY AT NOON, (Reported) Entered as Reported by: CHRISTOPHER PETERS on 11/07/19 1257 Ondansetron (Ondansetron Odt) 4 Mg Tab.rapdis, 4 MG PO Q6H PRN for NAUSEA/VOMITING Prescribed by: ADE COLLINS on 08/30/202206 Oxymetazoline HCl (Afrin) 15 Ml Mist, 1 SPRAY NS PRN, (Reported) Entered as Reported by: CHRISTOPHER PETERS on 11/07/19 1257 Pantoprazole Sodium (Pantoprazole Sodium) 40 Mg Tablet.dr, 40 MG PO BID, (Reported) Entered as Reported by: BETTIE ANGLIN on 12/02/18 101 Paroxetine HCl (Paroxetine HCl) 37.5 Mg Tab.er.24h, 37.5 MG PO HS, (Reported) Entered as Reported by: PEARL SINGLETARY on 02/23/19 09 Paroxetine HCl (Paroxetine ER) 12.5 Mg Tab.er.24h, 12.5 MG PO DAILY, (Reported) Entered as Reported by: PEARL SINGLETARY on 02/23/19 09 Potassium Chloride (Potassium Chloride) 10 Meq Tab.er.prt, 10 MEQ PO BID, (Reported) Entered as Reported by: SHANTI BENJAMIN on 01/30/20 1147 Prasugrel HCl (Prasugrel HCl) 10 Mg Tablet, 10 MG PO DAILY, (Reported) Entered as Reported by: BETTIE ANGLIN on 12/02/18 1011 Prazosin HCl (Prazosin HCl) 5 Mg Capsule, 10 MG PO HS, (Reported) Entered as Reported by: PEARL SINGLETARY on 02/23/19 09 Sucralfate (Sucralfate) 1 Gm Tablet, 1 GM PO ACHS, (Reported) Entered as Reported by: PEARL SINGLETARY on 02/23/19 09 Tramadol HCl (Tramadol HCl) 50 Mg Tablet, 50 MG PO HS PRN for PAIN-MODERATE (5- 7), (Reported) Entered as Reported by: CHRISTOPHER PETERS on 11/07/19 1257 Umeclidinium [place] (Incruse Ellipta) 62.5 Mcg Blst.w.dev, 1 PUFF INH DAILY, (Reported) Entered as Reported by: LATESHA PERLA on 07/06/18 1060 Review of Systems Review of Systems Constitutional: see HPI EENTM: see HPI Respiratory: no symptoms reported Cardiovascular: no symptoms reported Gastrointestinal: abdominal pain (Cramping), diarrhea, vomiting Genitourinary: no symptoms reported Musculoskeletal: no symptoms reported Skin: no symptoms reported Psychiatric/Neurological: No Symptoms Reported Hematologic/Lymphatic: No Symptoms Reported Immunological/Allergic: no symptoms reported Past Fnhkwbs-Nhvlwy-Xqnatx Hx Immunizations Up To Date Tetanus Booster (TDap): Unknown Seasonal Allergies Seasonal Allergies: No Past Medical History Surgeries: Yes (3 STENTS IN LEFT LEG AND 3 STENTS RIGHT LEG; AORTIC BYPASS) Abdominal, Cardiac, Coronary Stent Respiratory: Yes (CONT O2 AT NIGHT) Asthma, COPD Currently Using CPAP: No Currently Using BIPAP: No Cardiac: Yes Atrial Fibrillation, Cardiomyopathy, Coronary Artery Disease, Hypertension, Peripheral Vascular Neurological: Yes (PTSD) Sexually Transmitted Disease: No HIV/AIDS: No Genitourinary: Yes Benign Prostatic Hyperpl, Kidney Infection, Prostate Problems, Renal Failure Gastrointestinal: Yes (GI BLEED AUG 2018) Gastrointestinal Bleed, Irritable Bowel Musculoskeletal: Yes Back Injury Endocrine: Yes Diabetes, Insulin dep HEENT: Yes (Are likely dry eyes) Loss of Vision: Bilateral Hearing Impairment: Denies Cancer: No Psychosocial: Yes Anxiety, PTSD Integumentary: No Blood Disorders: No Adverse Reaction/Blood Tranf: No Family Medical History Asthma Cardiovascular disease Completed stroke Dementia Hypertension Myocardial infarction Respiratory disorder Visual disorder No Pertinent Family Hx Physical Exam Vital Signs Vital Signs - First Documented 09/18/21 10:33 Temp 35.4 Pulse 74 Resp 18 B/P (MAP) 118/75 (89) Pulse Ox 90 O2 Delivery Room Air Capillary Refill : Height, Weight, BMI Height: 5'8.00" Weight: 192lbs. 0.0oz. 87.440808ie; 32.00 BMI Method:Stated General Appearance: No Apparent Distress, WD/WN, Other (90% room air, has o2 at home that he wears as needed. ) Eyes: Bilateral Eye Normal Inspection, Bilateral Eye PERRL, Bilateral Eye EOMI Neck: Full Range of Motion, Normal Inspection Respiratory: No Accessory Muscle Use, No Respiratory Distress, Decreased Breath Sounds Cardiovascular: Regular Rate, Rhythm, Normal Peripheral Pulses Gastrointestinal: Normal Bowel Sounds, Non Tender, Soft Extremity: Normal Capillary Refill, Normal Inspection Neurologic/Psychiatric: Alert, Oriented x3 Skin: Normal Color, Warm/Dry Progress/Results/Core Measures Suspected Sepsis SIRS Temperature: Pulse: Respiratory Rate: Laboratory Tests 09/18/21 10:35: White Blood Count 12.0H Blood Pressure / Mean: Laboratory Tests 09/18/21 10:35: Creatinine 1.53H, Platelet Count 255, Total Bilirubin 0.6 Results/Orders Lab Results Laboratory Tests Test 09/18/21 10:35 09/18/21 10:39 Range/Units White Blood Count 12.0 H 4.3-11.0 10^3/uL Red Blood Count 3.90 L 4.30-5.52 10^6/uL Hemoglobin 11.7 L 13.3-17.7 g/dL Hematocrit 37 L 40-54 % Mean Corpuscular Volume 95 80-99 fL Mean Corpuscular Hemoglobin 30 25-34 pg Mean Corpuscular Hemoglobin Concent 32 32-36 g/dL Red Cell Distribution Width 14.6 H 10.0-14.5 % Platelet Count 255 130-400 10^3/uL Mean Platelet Volume 9.9 9.0-12.2 fL Immature Granulocyte % (Auto) 1 % Neutrophils (%) (Auto) 68 42-75 % Lymphocytes (%) (Auto) 22 12-44 % Monocytes (%) (Auto) 7 0-12 % Eosinophils (%) (Auto) 2 0-10 % Basophils (%) (Auto) 0 0-10 % Neutrophils # (Auto) 8.2 H 1.8-7.8 10^3/uL Lymphocytes # (Auto) 2.7 1.0-4.0 10^3/uL Monocytes # (Auto) 0.8 0.0-1.0 10^3/uL Eosinophils # (Auto) 0.2 0.0-0.3 10^3/uL Basophils # (Auto) 0.1 0.0-0.1 10^3/uL Immature Granulocyte # (Auto) 0.1 0.0-0.1 10^3/uL Sodium Level 137 135-145 MMOL/L Potassium Level 3.4 L 3.6-5.0 MMOL/L Chloride Level 99 98-107 MMOL/L Carbon Dioxide Level 22 21-32 MMOL/L Anion Gap 16 H 5-14 MMOL/L Blood Urea Nitrogen 10 7-18 MG/DL Creatinine 1.53 H 0.60-1.30 MG/DL Estimat Glomerular Filtration Rate 48 BUN/Creatinine Ratio 7 Glucose Level 371 H 70-105 MG/DL Calcium Level 9.1 8.5-10.1 MG/DL Corrected Calcium 9.3 8.5-10.1 MG/DL Total Bilirubin 0.6 0.1-1.0 MG/DL Aspartate Amino Transf (AST/SGOT) 28 5-34 U/L Alanine Aminotransferase (ALT/SGPT) 27 0-55 U/L Alkaline Phosphatase 161 H 40-136 U/L Total Protein 7.3 6.4-8.2 GM/DL Albumin 3.8 3.2-4.5 GM/DL Influenza Type A (RT-PCR) Not Detected Not Detecte Influenza Type B (RT-PCR) Not Detected Not Detecte SARS-CoV-2 RNA (RT-PCR) Not Detected Not Detecte My Orders Orders - KIARA CABALLERO EAR NOSE THROAT PHYSICIAN Cbc With Automated Diff (09/18/21 10:39) Comprehensive Metabolic Panel (09/18/21 10:39) Ua Culture If Indicated (09/18/21 10:39) Ed Iv/Invasive Line Start (09/18/21 10:39) Ondansetron Injection (Zofran Injectio (09/18/21 10:45) Covid 19 Inhouse Test (09/18/21 10:39) Influenza A And B By Pcr (09/18/21 10:39) Ct Abdomen/Pelvis W (09/18/21 11:12) Iohexol Injection (Omnipaque 350 Mg/Ml 1 (09/18/21 11:30) Received Contrast (Hold Metformin- Contr (09/18/21 11:30) Sodium Chloride Flush (Catheter Flush Sy (09/18/21 11:30) Ns (Ivpb) (Sodium Chloride 0.9% Ivpb Bag (09/18/21 11:30) Medications Given in ED Current Medications Medications Dose Ordered Sig/Maryjo Route Start Time Stop Time Status Last Admin Dose Admin Iohexol 75 ml ONCE ONCE IV 09/18/21 11:30 09/18/21 11:31 DC 09/18/21 11:59 70 ML Ondansetron HCl 4 mg ONCE ONCE IVP 09/18/21 10:45 09/18/21 10:46 DC 09/18/21 10:52 4 MG Sodium Chloride 10 ml NEEDED PRN IV 09/18/21 11:30 09/18/21 11:59 10 ML Sodium Chloride 100 ml ONCE ONCE IV 09/18/21 11:30 09/18/21 11:31 DC 09/18/21 11:59 80 ML Vital Signs/I&O 09/18/21 10:33 Temp 35.4 Pulse 74 Resp 18 B/P (MAP) 118/75 (89) Pulse Ox 90 O2 Delivery Room Air Capillary Refill : Departure Communication (Admissions) NAME: SWATI LEONARD [facility] REC#: [id number] PT STATUS: REG ER : 1950 PHYSICIAN: KIARA CABALLERO APRN ADMIT DATE: 09/18/21/ER Draft Date of Exam:09/18/21 CT ABDOMEN/PELVIS W INDICATION: Abdominal pain and vomiting. TECHNIQUE: Multiple contiguous axial images were obtained through the abdomen and pelvis after administration of intravenous contrast. Auto Exposure Controls were utilized during the CT exam to meet ALARA standards for radiation dose reduction. All CT scans use one or more of the following dose optimizing techniques: automated exposure control, MA and/or KvP adjustment based on patient size and exam type or iterative reconstruction. Comparison made with 08/30/2020. The visualized portions of the lung bases are clear. There were no pleural fluid collections. There is no free intraperitoneal air. The liver shows no focal lesion. Gallbladder appears unremarkable. The spleen, adrenals, and pancreas are normal. The kidneys bilaterally are unremarkable. There is no retroperitoneal mass or adenopathy. There is no ascites or abnormal fluid collection. Visualized bowel loops are nonobstructed. There is no focal bowel wall thickening. There are postoperative changes status post aortofemoral bypass. There are stents visualized in the proximal SMA and both sides which appear occluded. IMPRESSION: No acute process visualized in the abdomen or pelvis. There is no sign of bowel obstruction or abscess or focal inflammatory process. Peripheral vascular disease with evidence of previous aortobifemoral bypass. Occlusion of bilateral SFA stents. Dictated on workstation # [id number] Dict: 09/18/21 1208 Trans: 09/18/21 1214 [facility] [id number] Interpreted by: BETSEY MARTÍNEZ MD Electronically signed by: Impression Primary Impression: Nausea vomiting and diarrhea Disposition: ADMITTED INPATIENT Condition: Stable Departure-Patient Inst. Decision time for Depature: 12:12 Referrals: [facility] [place] (PCP/Family) Primary Care Physician Patient Instructions: No Instuctions Given, Nausea and Vomiting, Adult ED Add. Discharge Instructions: . Increase fluid intake. Return to ER for any concerns or worsening symptoms. Follow-up with your doctor this week for recheck. Scripts Ondansetron (Ondansetron Odt) 8 Mg Tab.rapdis 8 MG PO Q6H PRN for NAUSEA/VOMITING, #20 TAB Prov: KIARA CABALLERO APRN 09/18/21 KIARA CABALLERO APRN Sep 18, 2021 10:45
[2021-09-18 11:00] LABS: ALBUMIN 3.8 GM/DL (3.2-4.5); POTASSIUM 3.4 MMOL/L (3.6-5.0)
[2021-09-18 11:02] LABS: CALCIUM 9.1 MG/DL (8.5-10.1)
[2021-09-18 11:03] LABS: TOTAL PROTEIN 7.3 GM/DL (6.4-8.2)
[2021-09-18 11:05] LABS: BILIRUBIN,TOTAL 0.6 MG/DL (0.1-1.0)
[2021-09-18 11:06] LABS: CREATININE SERUM 1.53 MG/DL (0.60-1.30)
[2021-09-18] MEDS ORDERED: CATHETER FLUSH 10 ML SYR IV PRN (11:30)
[2021-09-18] MEDS ORDERED: NS 100 ML (IVPB) BAG IV ONE (11:30)
[2021-09-18] MEDS ORDERED: HOLD METFORMIN - RECEIVED CONTRAST 20 ML VIAL IV SCH (11:30)
[2021-09-18] MEDS ORDERED: IOHEXOL 350 MG/ML 100 ML (OMNIPAQUE 350) VIAL IV ONE (11:30)
--- NOTE | 2021-09-18 12:14 | Diagnostic Imaging Report ---
INDICATION: Abdominal pain and vomiting. TECHNIQUE: Multiple contiguous axial images were obtained through the abdomen and pelvis after administration of intravenous contrast. Auto Exposure Controls were utilized during the CT exam to meet ALARA standards for radiation dose reduction. All CT scans use one or more of the following dose optimizing techniques: automated exposure control, MA and/or KvP adjustment based on patient size and exam type or iterative reconstruction. Comparison made with 08/30/2020. The visualized portions of the lung bases are clear. There were no pleural fluid collections. There is no free intraperitoneal air. The liver shows no focal lesion. Gallbladder appears unremarkable. The spleen, adrenals, and pancreas are normal. The kidneys bilaterally are unremarkable. There is no retroperitoneal mass or adenopathy. There is no ascites or abnormal fluid collection. Visualized bowel loops are nonobstructed. There is no focal bowel wall thickening. There are postoperative changes status post aortofemoral bypass. There are stents visualized in the proximal SMA and both sides which appear occluded. IMPRESSION: No acute process visualized in the abdomen or pelvis. There is no sign of bowel obstruction or abscess or focal inflammatory process. Peripheral vascular disease with evidence of previous aortobifemoral bypass. Occlusion of bilateral SFA stents. Dictated by: Dictated on workstation # [id number]
[2021-09-18] MEDS ORDERED: ONDA8TAB13 PO (12:16)
== END 2021-09-18 12:41 | disposition other institution (70) ==
LOC: EDUNIT# 10:30 → ER 10:31
DX: R11.2 Nausea with vomiting, unspecified (principal); R19.7 Diarrhea, unspecified; J44.9 Chronic obstructive pulmonary disease, unspecified; I10 Essential (primary) hypertension; F41.9 Anxiety disorder, unspecified; E78.00 Pure hypercholesterolemia, unspecified; I25.10 Atherosclerotic heart disease of native coronary artery without angina pectoris; E11.9 Type 2 diabetes mellitus without complications; I48.91 Unspecified atrial fibrillation; N40.0 Benign prostatic hyperplasia without lower urinary tract symptoms; Z20.822 Contact with and (suspected) exposure to COVID-19; Z79.899 Other long term (current) drug therapy; Z79.4 Long term (current) use of insulin; Z79.82 Long term (current) use of aspirin; Z79.01 Long term (current) use of anticoagulants
CPT/HCPCS: 36415; 74177; 80053; 85025; 87636

== ENCOUNTER 2021-10-16 23:29 | Emergency (ER) | payer MEDICARE ==
[~2021-10-16] VITALS: Ht 165.1 cm; Wt 83.5 kg
[~2021-10-16 23:29] MED LIST changes: +ONDA8TAB13 PO; -PARO37.511 PO; +PARO37.516 PO
[2021-10-16] MEDS ORDERED: LACTATED RINGERS 1,000 ML IV ONE (23:45)
[2021-10-16] MEDS ORDERED: cefTRIAXone 1 GM PRE-MIX 50 ML IV ONE (23:45)
--- NOTE | 2021-10-16 23:48 | ED Integumentary General ---
General Chief Complaint: Skin/Wound Problems Stated Complaint: NOT FEELING WELL Nursing Triage Note: PT TO RM 5 VIA [facility] EMS W C/O NOT FEELING WELL D/T R INNER THIGH PAIN. PT REPORTS HE HAD SURGERY MONTHS AGO TO THE AREA AND HE DOESN'T THINK THE WOUND IS HEALING CORRECTLY. MINIMAL DRAINAGE NOTED AT AREA OF CONCERN. PT A&OX4. Source: patient, EMS Exam Limitations: no limitations History of Present Illness Date Seen by Provider: Oct 16, 2021 Time Seen by Provider: 23:25 Initial Comments Patient presents the ER by EMS from home with chief complaint of poor pain control of his right leg wound. He had a surgery for revascularization at [facility] by Dr. Milian a couple months ago for peripheral arterial disease. The wound has been nonhealing and managed by Errol Mancini, primary care. Has been on a couple courses of antibiotics. He does not follow with a surgeon presently. He is on hydrocodone unknown strength 4 times a day. Typically he says he uses it once or twice a day but for the past several days he has been using it 3-4 times a day and only getting about 3 or 4 hours of relief. No fevers chills nausea vomiting or cough. He is having drainage from the wound which is not new. He says they have cultured it and not found any bacteria in it. Suspect he has a cystic collection and was referred yesterday to wound care at [facility], [address]. Pain was a 10 out of 10 at its worse. He took a hydrocodone just before coming into the ER and rates it now is a 7-1/2 out of 10. Allergies and Home Medications Allergies Coded Allergies: No Known Drug Allergies (Verified , 07/08/18) Patient Home Medication List Home Medication List Reviewed: Yes Acetaminophen (Tylenol Extra Strength) 500 Mg Tablet, 500-1,000 MG PO Q6H PRN for PAIN-MILD, (Reported) Entered as Reported by: PEARL SINGLETARY on 12/09/18 1109 Albuterol Sulfate (Proventil Hfa) 6.7 Gm Hfa.aer.ad, 2 PUFF INH Q6H PRN for SHORTNESS OF BREATH, (Reported) Entered as Reported by: BETTIE ANGLIN on 12/02/18 1014 Kanul-S-Yviepfiovfpgk (Beano) 150 Unit Tablet, 150 UNIT PO QID, (Reported) Entered as Reported by: CHRISTOPHER PETERS on 11/07/19 1257 Aspirin (Aspirin EC) 81 Mg Tablet.dr, 81 MG PO DAILY, (Reported) Entered as Reported by: PEARL SINGLETARY on 02/23/19 0900 Atorvastatin Calcium (Atorvastatin Calcium) 80 Mg Tablet, 80 MG PO DAILY, (Reported) Entered as Reported by: PEARL SINGLETARY on 12/09/18 1109 Biotin (Biotin) 1,000 Mcg Tablet, 1,000 MCG PO DAILY, (Reported) Entered as Reported by: SHANTI BENJAMIN on 01/30/20 1147 Bisacodyl (Bisacodyl) 5 Mg Tablet.dr, 10 MG PO DAILY PRN for CONSTIPATION-4TH LINE, (Reported) Entered as Reported by: PEARL SINGLETARY on 12/09/18 1109 Budesonide/Formoterol Fumarate (Symbicort 160-4.5 Mcg Inhaler) 10.2 Gm Hfa.aer.ad, 2 PUFF IH BID, (Reported) Entered as Reported by: SHANTI BENJAMIN on 01/30/20 1147 Caffeine (Caffeine) 200 Mg Tablet, 200-400 MG PO BID PRN for DROWSINESS, (Reported) Entered as Reported by: PEARL SINGLETARY on 12/09/18 1109 Diphenhydramine HCl (Benadryl Allergy) 25 Mg Tablet, 50 MG PO HS PRN for ALLERGIES/ANXIETY, (Reported) Entered as Reported by: PEARL SINGLETARY on 12/09/18 1109 Ferrous Sulfate (Ferrous Sulfate) 325 Mg Tablet, 325 MG PO DAILY, (Reported) Entered as Reported by: SHANTI BENJAMIN on 01/30/20 1147 Finasteride (Finasteride) 5 Mg Tablet, 5 MG PO DAILY, (Reported) Entered as Reported by: BETTIE ANGLIN on 12/02/18 1012 Fish Oil/Borage/Flax/Om3,6,9#1 (Ldvnvmpu-Kpdj-Cjvsuo Oil Sftgl) 400 Mg Capsule, 1 CAP PO BID, (Reported) Entered as Reported by: PEARL SINGLETARY on 02/23/19 0901 Furosemide (Furosemide) 20 Mg Tablet, 20 MG PO DAILY, (Reported) Entered as Reported by: PEARL SINGLETARY on 02/23/19 0900 Gabapentin (Neurontin) 300 Mg Capsule, 300 MG PO DAILY, (Reported) Entered as Reported by: SHANTI BENJAMIN on 01/30/20 1147 Gabapentin (Neurontin) 300 Mg Capsule, 600 MG PO HS, (Reported) Entered as Reported by: SHANTI BENJAMIN on 01/30/20 1147 Guaifenesin (Mucus Relief) 400 Mg Tablet, 400 MG PO PRN PRN for CONGESTION, (Reported) Entered as Reported by: CHRISTOPHER PETERS on 11/07/19 1257 Insulin Determir (Levemir) 1,000 Units/10 Ml Soln, 50 UNITS SQ HS, (Reported) Entered as Reported by: CHRISTOPHER PETERS on 11/07/19 1257 Lisinopril (Lisinopril) 10 Mg Tablet, 10 MG PO DAILY, (Reported) Entered as Reported by: PEARL SINGLETARY on 02/23/19 0900 Metoprolol Succinate (Metoprolol Succinate) 100 Mg Tab.er.24h, 100 MG PO DAILY@2100 Prescribed by: GENNA DUMONT on 02/01/20 1109 Multivitamin (Multivitamins) 1 Each Tablet, 1 EACH PO DAILY AT NOON, (Reported) Entered as Reported by: CHRISTOPHER PETERS on 11/07/19 1257 Ondansetron (Ondansetron Odt) 4 Mg Tab.rapdis, 4 MG PO Q6H PRN for NAUSEA/VOMITING Prescribed by: ADE COLLINS on 08/30/20 2207 Ondansetron (Ondansetron Odt) 8 Mg Tab.rapdis, 8 MG PO Q6H PRN for NAUSEA/VOMITING Prescribed by: KIARA CABALLERO on 09/18/21 1216 Oxymetazoline HCl (Afrin) 15 Ml Mist, 1 SPRAY NS PRN, (Reported) Entered as Reported by: CHRISTOPHER PETERS on 11/07/19 1257 Pantoprazole Sodium (Pantoprazole Sodium) 40 Mg Tablet.dr, 40 MG PO BID, (Reported) Entered as Reported by: BETTIE ANGLIN on 12/02/18 1012 Paroxetine HCl (Paroxetine HCl) 37.5 Mg Tab.er.24h, 37.5 MG PO HS, (Reported) Entered as Reported by: PEARL SINGLETARY on 02/23/19 0900 Paroxetine HCl (Paroxetine ER) 12.5 Mg Tab.er.24h, 12.5 MG PO DAILY, (Reported) Entered as Reported by: PEARL SINGLETARY on 02/23/19 0900 Potassium Chloride (Potassium Chloride) 10 Meq Tab.er.prt, 10 MEQ PO BID, (Reported) Entered as Reported by: SHANTI BENJAMIN on 01/30/20 1147 Prasugrel HCl (Prasugrel HCl) 10 Mg Tablet, 10 MG PO DAILY, (Reported) Entered as Reported by: BETTIE ANGLIN on 12/02/18 1011 Prazosin HCl (Prazosin HCl) 5 Mg Capsule, 10 MG PO HS, (Reported) Entered as Reported by: PEARL SINGLETARY on 02/23/19 0900 Sucralfate (Sucralfate) 1 Gm Tablet, 1 GM PO ACHS, (Reported) Entered as Reported by: PEARL SINGLETARY on 02/23/19 0900 Tramadol HCl (Tramadol HCl) 50 Mg Tablet, 50 MG PO HS PRN for PAIN-MODERATE (5- 7), (Reported) Entered as Reported by: CHRISTOPHER PETERS on 11/07/19 1257 Umeclidinium [place] (Incruse Ellipta) 62.5 Mcg Blst.w.dev, 1 PUFF INH DAILY, (Reported) Entered as Reported by: LATESHA PERLA on 07/06/18 6137 Review of Systems Review of Systems Constitutional: No chills, No diaphoresis, No fever, No malaise EENTM: No ear discharge, No hearing loss, No ear pain Respiratory: No cough, No short of breath Cardiovascular: No chest pain, No edema Gastrointestinal: No abdominal pain, No nausea, No vomiting Genitourinary: No discharge, No dysuria Musculoskeletal: see HPI; No back pain Skin: see HPI Psychiatric/Neurological: See HPI All Other Systems Reviewed Negative Unless Noted: Yes Past Vjbgszi-Yduwqb-Xhrkgn Hx Patient Social History Tobacco Use?: No Smoking Status: Former Smoker Use of E-Cig and/or Vaping dev: No Substance use?: No Alcohol Use?: Yes Alcohol Frequency: Rarely Immunizations Up To Date Tetanus Booster (TDap): Unknown Influenza Vaccine Up-to-Date: Yes; Up-to-Date First/Initial COVID19 Vaccinat: YES UNSURE OF DATE. Second COVID19 Vaccination Maxwell: YES UNSURE OF DATE. Third COVID19 Vaccination Date: YES UNSURE OF DATE. 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 Seasonal Allergies Seasonal Allergies: No Past Medical History Surgery/Hospitalization HX: T2DM Surgeries: Yes (3 STENTS IN LEFT LEG AND 3 STENTS RIGHT LEG; AORTIC BYPASS) Abdominal, Cardiac, Coronary Stent Respiratory: Yes (CONT O2 AT NIGHT) Asthma, COPD Currently Using CPAP: No Currently Using BIPAP: No Cardiac: Yes Atrial Fibrillation, Cardiomyopathy, Coronary Artery Disease, Hypertension, Peripheral Vascular Neurological: Yes (PTSD) Sexually Transmitted Disease: No HIV/AIDS: No Genitourinary: Yes Benign Prostatic Hyperpl, Kidney Infection, Prostate Problems, Renal Failure Gastrointestinal: Yes (GI BLEED AUG 2018) Gastrointestinal Bleed, Irritable Bowel Musculoskeletal: Yes Back Injury Endocrine: Yes Diabetes, Insulin dep HEENT: Yes (Are likely dry eyes) Loss of Vision: Bilateral Hearing Impairment: Denies Cancer: No Psychosocial: Yes Anxiety, PTSD Integumentary: No Blood Disorders: No Adverse Reaction/Blood Tranf: No Family Medical History Asthma Cardiovascular disease Completed stroke Dementia Hypertension Myocardial infarction Respiratory disorder Visual disorder No Pertinent Family Hx Physical Exam Vital Signs Vital Signs - First Documented 10/16/21 23:30 Temp 37.0 Pulse 117 Resp 20 B/P (MAP) 109/79 (89) Pulse Ox 97 O2 Delivery Room Air Capillary Refill : Less Than 3 Seconds General Appearance: WD/WN, mild distress HEENT: PERRL/EOMI, pharynx normal Neck: full range of motion, normal inspection Cardiovascular: normal peripheral pulses, regular rate, rhythm Respiratory: lungs clear, normal breath sounds, no respiratory distress, no accessory muscle use Gastrointestinal: normal bowel sounds, non tender, soft Extremities: normal inspection, normal capillary refill Neurologic/Psychiatric: alert, normal mood/affect, oriented x 3 Skin: other (Surgical scar on the medial right midshaft femur skin with the proximal portion open and draining a small amount of thin, nonmalodorous cloudy white material. No erythema induration or calor palpable.) Progress/Results/Core Measures Results/Orders Lab Results Laboratory Tests Test 10/16/21 23:42 Range/Units White Blood Count 9.6 4.3-11.0 10^3/uL Red Blood Count 4.52 4.30-5.52 10^6/uL Hemoglobin 13.2 L 13.3-17.7 g/dL Hematocrit 42 40-54 % Mean Corpuscular Volume 92 80-99 fL Mean Corpuscular Hemoglobin 29 25-34 pg Mean Corpuscular Hemoglobin Concent 32 32-36 g/dL Red Cell Distribution Width 14.1 10.0-14.5 % Platelet Count 288 130-400 10^3/uL Mean Platelet Volume 9.8 9.0-12.2 fL Immature Granulocyte % (Auto) 1 % Neutrophils (%) (Auto) 79 H 42-75 % Lymphocytes (%) (Auto) 12 12-44 % Monocytes (%) (Auto) 6 0-12 % Eosinophils (%) (Auto) 2 0-10 % Basophils (%) (Auto) 1 0-10 % Neutrophils # (Auto) 7.6 1.8-7.8 10^3/uL Lymphocytes # (Auto) 1.1 1.0-4.0 10^3/uL Monocytes # (Auto) 0.6 0.0-1.0 10^3/uL Eosinophils # (Auto) 0.2 0.0-0.3 10^3/uL Basophils # (Auto) 0.1 0.0-0.1 10^3/uL Immature Granulocyte # (Auto) 0.1 0.0-0.1 10^3/uL Sodium Level 137 135-145 MMOL/L Potassium Level 3.4 L 3.6-5.0 MMOL/L Chloride Level 98 98-107 MMOL/L Carbon Dioxide Level 23 21-32 MMOL/L Anion Gap 16 H 5-14 MMOL/L Blood Urea Nitrogen 15 7-18 MG/DL Creatinine 1.71 H 0.60-1.30 MG/DL Estimat Glomerular Filtration Rate 42 BUN/Creatinine Ratio 9 Glucose Level 347 H 70-105 MG/DL Calcium Level 10.4 H 8.5-10.1 MG/DL Corrected Calcium 10.6 H 8.5-10.1 MG/DL Total Bilirubin 0.5 0.1-1.0 MG/DL Aspartate Amino Transf (AST/SGOT) 17 5-34 U/L Alanine Aminotransferase (ALT/SGPT) 21 0-55 U/L Alkaline Phosphatase 144 H 40-136 U/L C-Reactive Protein High Sensitivity 1.19 H 0.00-0.50 MG/DL Total Protein 7.4 6.4-8.2 GM/DL Albumin 3.8 3.2-4.5 GM/DL My Orders Orders - ADE COLLINS Cbc With Automated Diff (10/16/21 23:40) Comprehensive Metabolic Panel (10/16/21 23:40) Hs C Reactive Protein (10/16/21 23:40) Ed Iv/Invasive Line Start (10/16/21 23:40) Ceftriaxone 1 Gm Pre-Mix (Rocephin 1 Gm (10/16/21 23:45) Lactated Ringers (Lr 1000 Ml Iv Solution (10/16/21 23:45) Blood Culture (10/16/21 23:40) Insulin (Regular) Human (Novolin R (Per (10/17/21 00:15) Femur, Right, 2 Views (10/17/21 00:01) Medications Given in ED Current Medications Medications Dose Ordered Sig/Maryjo Route Start Time Stop Time Status Last Admin Dose Admin Ceftriaxone Sodium/Dextrose 50 ml @ 100 mls/hr ONCE ONCE IV 10/16/21 23:45 10/17/21 00:14 DC 10/17/21 00:31 100 MLS/HR Insulin Human Regular 7 unit ONCE ONCE SC 10/17/21 00:15 10/17/21 00:16 DC 10/17/21 00:31 7 UNIT Lactated Ringer's 1,000 ml @ 0 mls/hr Q0M ONCE IV 10/16/21 23:45 10/16/21 23:46 DC 10/16/21 23:52 0 MLS/HR Vital Signs/I&O 10/16/21 23:30 Temp 37.0 Pulse 117 Resp 20 B/P (MAP) 109/79 (89) Pulse Ox 97 O2 Delivery Room Air Blood Pressure Mean: 89 Progress Progress Note #1: Time: 23:47 Progress Note Chronic nonhealing cyst does not appear to be particularly inflamed. Plan to get some labs and give a course of Rocephin in anticipation of a potential abscess however it is draining on its own. Appropriate course would be to treat his pain and get him to wound care. We discussed management of his blood sugar which does not seem to be well controlled so his insulin was recently increased yesterday at his primary care doctor's office. Patient is a little tachycardic 100-1 10 which could be due to pain, dehydration or less likely sepsis. He has no other abnormal vital signs or history of fever or chills. We will check some labs including a CRP. The wound appears to be chronic. If he is not terribly septic then we could treat him with some antibiotics to keep it from getting worse or going systemic and have him follow-up with wound care. It is draining on its own and I do not feel a large fluctuance needing further opened. The patient declined anything for pain at this time. We will however provide him with a prescription for every 4 hour hydrocodone as that is about how long his pain medicine lasts. Progress Note #2: Time: 00:59 Progress Note No elevated white count or markers of inflammation. No signs of systemic infection. Looks like a seroma from a nonhealing wound. Plan to have him follow-up at wound care. Antibiotics are not necessary at this time. We will give him a prescription for some pain medicine and nausea medicine. Regular insulin for his elevated blood sugar Departure Impression Primary Impression: Chronic wound of extremity Additional Impression: Hyperglycemia due to type 2 diabetes mellitus Qualified Codes: E11.65 - Type 2 diabetes mellitus with hyperglycemia Disposition: HOME, SELF-CARE Condition: Stable Departure-Patient Inst. Decision time for Depature: 01:00 Referrals: [facility] (PCP/Family) Primary Care Physician SCOTT LINDA MD Patient Instructions: Wound Care (DC) Add. Discharge Instructions: Your wound is a collection of fluid that does not appear to be infected known as a seroma. If you develop fever, intractable vomiting or pain then return to your doctor sooner. Keep working on getting a referral to wound care as they will be instrumental in helping you heal this wound. Hydrocodone 7.5 mg every 4 hours as necessary for severe breakthrough pain. Warm moist heat, Tylenol as necessary for pain. Ondansetron/Zofran 1 tablet every 6 hours under the tongue as necessary for nausea or vomiting. All discharge instructions reviewed with patient and/or family. Voiced understanding. Scripts Ondansetron (Ondansetron Odt) 4 Mg Tab.rapdis 4 MG PO Q6H PRN for NAUSEA/VOMITING, #20 TAB 0 Refills Prov: ADE COLLINS 10/17/21 Hydrocodone/Acetaminophen (Hydrocodone-Acetamin 7.5-325) 1 Each Tablet 1 EACH PO Q4H PRN for PAIN-BREAKTHROUGH, #14 TAB 0 Refills Prov: ADE COLLINS 10/17/21 Copy Copies To 1: SCOTT LINDA MD, TITUS J Oct 16, 2021 23:48
[2021-10-16 23:53] LABS: BASOPHILS # (AUTO) 0.1 10^3/uL (0.0-0.1); BASOPHILS % (AUTO) 1 % (0-10); EOSINOPHILS # (AUTO) 0.2 10^3/uL (0.0-0.3); EOSINOPHILS % (AUTO) 2 % (0-10); HEMATOCRIT 42 % (40-54); HEMOGLOBIN 13.2 g/dL (13.3-17.7); LYMPHOCYTES # (AUTO) 1.1 10^3/uL (1.0-4.0); LYMPHOCYTES % (AUTO) 12 % (12-44); MEAN CORPUSCULAR HEMOGLOBIN 29 pg (25-34); MEAN CORPUSCULAR HGB CONC 32 g/dL (32-36); MEAN CORPUSCULAR VOLUME 92 fL (80-99); MEAN PLATELET VOLUME 9.8 fL (9.0-12.2); MONOCYTES # (AUTO) 0.6 10^3/uL (0.0-1.0); MONOCYTES % (AUTO) 6 % (0-12); NEUTROPHILS # (AUTO) 7.6 10^3/uL (1.8-7.8); NEUTROPHILS % (AUTO) 79 % (42-75); PLATELET COUNT 288 10^3/uL (130-400); WHITE BLOOD COUNT 9.6 10^3/uL (4.3-11.0)
[2021-10-16 23:58] LABS: ALBUMIN 3.8 GM/DL (3.2-4.5); POTASSIUM 3.4 MMOL/L (3.6-5.0)
[2021-10-16 23:59] LABS: CALCIUM 10.4 MG/DL (8.5-10.1)
[2021-10-17] LABS: TOTAL PROTEIN 7.4 GM/DL (6.4-8.2)
[2021-10-17 00:02] LABS: BILIRUBIN,TOTAL 0.5 MG/DL (0.1-1.0)
[2021-10-17 00:04] LABS: CREATININE SERUM 1.71 MG/DL (0.60-1.30)
[2021-10-17] MEDS ORDERED: inSUlin (REGULAR) HUMAN 1 UNIT/0.01 ML (CHARGE PER UNIT) SC ONE (00:15)
[2021-10-17] MEDS ORDERED: HYDR-3817 PO (01:03)
[2021-10-17] MEDS ORDERED: ONDA4TAB11 PO (01:03)
[2021-10-17 01:24] VITALS: BP 142/81
--- NOTE | 2021-10-17 07:29 | Diagnostic Imaging Report ---
INDICATION: Leg pain COMPARISON: None available. TECHNIQUE: 4 radiographs of the right femur dated 10/17/2021 FINDINGS: Surgical clips are seen overlying the right inguinal region. Vascular stent grafts are noted overlying the soft tissues medial to the right femur. Background vascular calcifications. No acute fracture or dislocation. No destructive osseous process. Minimal medial joint space narrowing of the knee without significant osteophytosis. Mild degenerative changes of the right hip with mild joint space narrowing and minimal osteophyte formation. Pubic symphysis is intact. IMPRESSION: No acute osseous abnormality with mild degenerative changes present. Postsurgical changes are present with vascular stent graft within the medial aspect of the thigh. Dictated by: Dictated on workstation # [id number]
== END 2021-10-17 01:24 | disposition home or self-care (01) ==
LOC: EDUNIT# 23:29 → ER 23:30
DX: S81.801A Unspecified open wound, right lower leg, initial encounter (principal); E11.65 Type 2 diabetes mellitus with hyperglycemia; Z87.891 Personal history of nicotine dependence; Z79.891 Long term (current) use of opiate analgesic; X58.XXXA Exposure to other specified factors, initial encounter
CPT/HCPCS: 36415; 73552; 80053; 85025; 86141; 87040

== ENCOUNTER → 2021-10-22 | Outpatient (CLI) | payer MEDICARE, MEDICAID ==
[~2021-10-22] MED LIST changes: +HYDR-3817 PO
== END ==
LOC: WOUNDCARE 13:24
PROVIDERS: ATTEND Family Medicine
DX: T81.31XA Disruption of external operation (surgical) wound, not elsewhere classified, initial encounter (principal); E11.622 Type 2 diabetes mellitus with other skin ulcer; E11.65 Type 2 diabetes mellitus with hyperglycemia; I70.33 Atherosclerosis of unspecified type of bypass graft(s) of the right leg with ulceration
CPT/HCPCS: 99212

== ENCOUNTER 2022-06-01 08:11 | Inpatient (IN) | payer MEDICARE, MEDICAID ==
[~2022-06-01] VITALS: Ht 165.1 cm; Wt 89.8 kg
[~2022-06-01 08:11] MED LIST changes: +POTA-177 PO; -POTA10TA37 PO
[2022-06-01 08:30] LABS: BASOPHILS # (AUTO) 0.1 10^3/uL (0.0-0.1); BASOPHILS % (AUTO) 0 % (0-10); EOSINOPHILS % (AUTO) 0 % (0-10); HEMATOCRIT 39 % (40-54); HEMOGLOBIN 12.5 g/dL (13.3-17.7); LYMPHOCYTES # (AUTO) 0.7 10^3/uL (1.0-4.0); LYMPHOCYTES % (AUTO) 3 % (12-44); MEAN CORPUSCULAR HEMOGLOBIN 29 pg (25-34); MEAN CORPUSCULAR HGB CONC 32 g/dL (32-36); MEAN CORPUSCULAR VOLUME 90 fL (80-99); MONOCYTES # (AUTO) 0.9 10^3/uL (0.0-1.0); MONOCYTES % (AUTO) 4 % (0-12); NEUTROPHILS # (AUTO) 20.9 10^3/uL (1.8-7.8); NEUTROPHILS % (AUTO) 92 % (42-75); PLATELET COUNT 263 10^3/uL (130-400); WHITE BLOOD COUNT 22.8 10^3/uL (4.3-11.0)
[2022-06-01] MEDS ORDERED: fentaNYL INJ 100 MCG/2 ML AMP IVP ONE (08:30)
[2022-06-01 08:45] LABS: INR 1.2 (0.8-1.4); PROTHROMBIN TIME PATIENT 15.2 SEC (12.2-14.7)
[2022-06-01 08:47] LABS: CALCIUM 9.2 MG/DL (8.5-10.1)
[2022-06-01 08:48] LABS: TOTAL PROTEIN 7.3 GM/DL (6.4-8.2)
[2022-06-01 08:50] LABS: BILIRUBIN,TOTAL 1.3 MG/DL (0.1-1.0)
[2022-06-01 08:51] LABS: CREATININE SERUM 3.51 MG/DL (0.60-1.30)
--- NOTE | 2022-06-01 09:04 | Diagnostic Imaging Report ---
PROCEDURE: CT head without contrast. TECHNIQUE: Multiple contiguous axial images were obtained through the brain without the use of intravenous contrast. Auto Exposure Controls were utilized during the CT exam to meet ALARA standards for radiation dose reduction. DATE: June 01, 2022. COMPARISON: CT head and cervical spine January 27, 2020. INDICATION: 71-year-old male, fall. Headache. FINDINGS: There is nonspecific complete opacification in the right sphenoid sinus. There is an area of very high attenuation within the consolidation. There is no identified skull fracture. The ventricles and cerebral spinal fluid spaces are of normal size and configuration for the patient's age. There is no mass effect or midline shift. There is no acute intracranial hemorrhage. There is no abnormal extra-axial fluid collection. IMPRESSION: 1. No identified acute intracranial abnormality. 2. Nonspecific complete opacification in the right sphenoid sinus which is also present on January 27, 2020. Dictated by: Dictated on workstation # [id number]
[2022-06-01 09:11] LABS: BAND NEUTROPHILS 4 %; BASOPHILS % (MANUAL) 0 %; EOSINOPHILS % (MANUAL) 0 %; LYMPHOCYTES % (MANUAL) 3 %; MONOCYTES % (MANUAL) 5 %; NEUTROPHILS % (MANUAL) 88 %; RBC MORPH NORMAL
[2022-06-01] MEDS ORDERED: SODIUM BICARB 8.4% 50 MEQ/50 ML (ABBOTT) SYR IV ONE (09:15)
[2022-06-01] MEDS ORDERED: CALC GLUC 1 GM/100 ML IVPB 100 ML IV ONE (09:15)
[2022-06-01] MEDS ORDERED: inSUlin (REGULAR) HUMAN 1 UNIT/0.01 ML (CHARGE PER UNIT) IV ONE (09:15)
--- NOTE | 2022-06-01 09:19 | Diagnostic Imaging Report ---
EXAMINATION: Right hip unilateral 2 or 3 views (w/pelvis when done) HISTORY: Injury COMPARISON: None available. FINDINGS: There is an intertrochanteric right hip fracture with superior displacement distal fracture fragment. There is posterior displacement of distal fracture fragment. Vascular stents are present in both lower extremities. No dislocation. There is mild bilateral hip joint osteoarthritis. IMPRESSION: 1. Displaced intertrochanteric right hip fracture. Dictated by: Dictated on workstation # [id number]
--- NOTE | 2022-06-01 09:19 | Diagnostic Imaging Report ---
EXAMINATION: Chest radiograph, portable AP view. DATE: 06/01/2022 9:10 AM INDICATION: 71-year-old male, fall. Chest pain. COMPARISON: August 30, 2020. FINDINGS: Heart size and mediastinal contours are unchanged. There is no identified pneumothorax.. There is mild blunting of the left lateral costophrenic angle. There are degenerative changes of the spine. IMPRESSION: 1. Mild blunting the left lateral aspect which may relate to soft tissue overlap, small effusion, infiltrate, and/or atelectasis. Dictated by: Dictated on workstation # [id number]
--- NOTE | 2022-06-01 09:20 | ED Lower Extremity ---
General Chief Complaint: Trauma-Non Activation Stated Complaint: FALL Nursing Triage Note: ARRIVED VIA EMS FROM HOME. PT STATES HE HAS BEEN ON THE FLOOR SINCE NOON YESTERDAY AFTER FALLING. COMPLAINS OF RIGHT HIP/LEG PAIN AND THINKS HIS LEG IS BROKEN. Source: patient Exam Limitations: no limitations History of Present Illness Date Seen by Provider: Jun 01, 2022 Time Seen by Provider: 08:19 Initial Comments 71-year-old male arrives via EMS from home. He states he sustained a fall yesterday afternoon at about noon. He hurt his right hip and has been trying to get to the phone since that time. He states he did hit his head at the initial fall and then several times as he was trying to climb to the phone. He denies pain or injury outside of that to his right hip. He states he is diabetic but his sugars usually are pretty good. He denies any other recent illnesses. Allergies and Home Medications Allergies Coded Allergies: No Known Drug Allergies (Verified , 07/08/18) Patient Home Medication List Home Medication List Reviewed: Yes Acetaminophen (Tylenol Extra Strength) 500 Mg Tablet, 500-1,000 MG PO Q6H PRN for PAIN-MILD, (Reported) Entered as Reported by: PEARL SINGLETARY on 12/09/18 1109 Albuterol Sulfate (Proventil Hfa) 6.7 Gm Hfa.aer.ad, 2 PUFF INH Q6H PRN for SHORTNESS OF BREATH, (Reported) Entered as Reported by: BETTIE ANGLIN on 12/02/18 1014 Kvkqh-B-Nvrcgkjdpcbzq (Beano) 150 Unit Tablet, 150 UNIT PO QID, (Reported) Entered as Reported by: CHRISTOPHER PETERS on 11/07/19 1257 Aspirin (Aspirin EC) 81 Mg Tablet.dr, 81 MG PO DAILY, (Reported) Entered as Reported by: PEARL SINGLETARY on 02/23/19 0900 Atorvastatin Calcium (Atorvastatin Calcium) 80 Mg Tablet, 80 MG PO DAILY, (Reported) Entered as Reported by: PEARL SINGLETARY on 12/09/18 1109 Biotin (Biotin) 1,000 Mcg Tablet, 1,000 MCG PO DAILY, (Reported) Entered as Reported by: SHANTI BENJAMIN on 01/30/20 1147 Bisacodyl (Bisacodyl) 5 Mg Tablet., 10 MG PO DAILY PRN for CONSTIPATION-4TH LINE, (Reported) Entered as Reported by: PEARL SINGLETARY on 12/09/18 1109 Budesonide/Formoterol Fumarate (Symbicort 160-4.5 Mcg Inhaler) 10.2 Gm Hfa.aer.ad, 2 PUFF IH BID, (Reported) Entered as Reported by: SHANTI BENJAMIN on 01/30/20 1147 Caffeine (Caffeine) 200 Mg Tablet, 200-400 MG PO BID PRN for DROWSINESS, (Reported) Entered as Reported by: PEARL SINGLETARY on 12/09/18 1109 Diphenhydramine HCl (Benadryl Allergy) 25 Mg Tablet, 50 MG PO HS PRN for ALLERGIES/ANXIETY, (Reported) Entered as Reported by: PEARL SINGLETARY on 12/09/18 1109 Ferrous Sulfate (Ferrous Sulfate) 325 Mg Tablet, 325 MG PO DAILY, (Reported) Entered as Reported by: SHANTI BENJAMIN on 01/30/20 1147 Finasteride (Finasteride) 5 Mg Tablet, 5 MG PO DAILY, (Reported) Entered as Reported by: BETTIE ANGLIN on 12/02/18 1012 Fish Oil/Borage/Flax/Om3,6,9#1 (Vwwfgpzx-Wrqk-Pefxmf Oil Sftgl) 400 Mg Capsule, 1 CAP PO BID, (Reported) Entered as Reported by: PEARL SINGLETARY on 02/23/19 0901 Furosemide (Furosemide) 20 Mg Tablet, 20 MG PO DAILY, (Reported) Entered as Reported by: PEARL SINGLETARY on 02/23/19 0900 Gabapentin (Neurontin) 300 Mg Capsule, 300 MG PO DAILY, (Reported) Entered as Reported by: SHANTI BENJAMIN on 01/30/20 1147 Gabapentin (Neurontin) 300 Mg Capsule, 600 MG PO HS, (Reported) Entered as Reported by: SHANTI BENJAMIN on 01/30/20 1147 Guaifenesin (Mucus Relief) 400 Mg Tablet, 400 MG PO PRN PRN for CONGESTION, (Reported) Entered as Reported by: CHRISTOPHER PETERS on 11/07/19 1257 Hydrocodone/Acetaminophen (Hydrocodone-Acetamin 7.5-325) 1 Each Tablet, 1 EACH PO Q4H PRN for PAIN-BREAKTHROUGH Prescribed by: ADE COLLINS on 10/17/21 0104 Insulin Determir (Levemir) 1,000 Units/10 Ml Soln, 50 UNITS SQ HS, (Reported) Entered as Reported by: CHRISTOPHER PETERS on 11/07/19 1257 Lisinopril (Lisinopril) 10 Mg Tablet, 10 MG PO DAILY, (Reported) Entered as Reported by: PEARL SINGLETARY on 02/23/19 0900 Metoprolol Succinate (Metoprolol Succinate) 100 Mg Tab.er.24h, 100 MG PO DAILY@2100 Prescribed by: GENNA DUMONT on 02/01/20 1109 Multivitamin (Multivitamins) 1 Each Tablet, 1 EACH PO DAILY AT NOON, (Reported) Entered as Reported by: CHRISTOPHER PETERS on 11/07/19 1257 Ondansetron (Ondansetron Odt) 4 Mg Tab.rapdis, 4 MG PO Q6H PRN for NAUSEA/VOMITING Prescribed by: ADE COLLINS on 08/30/20 2207 Ondansetron (Ondansetron Odt) 8 Mg Tab.rapdis, 8 MG PO Q6H PRN for NAUSEA/VOMITING Prescribed by: KIARA CABALLERO on 09/18/21 1216 Ondansetron (Ondansetron Odt) 4 Mg Tab.rapdis, 4 MG PO Q6H PRN for NAUSEA/VOMITING Prescribed by: ADE COLLINS on 10/17/21 0103 Oxymetazoline HCl (Afrin) 15 Ml Mist, 1 SPRAY NS PRN, (Reported) Entered as Reported by: CHRISTOPHER PETERS on 11/07/19 1257 Pantoprazole Sodium (Pantoprazole Sodium) 40 Mg Tablet.dr, 40 MG PO BID, (Reported) Entered as Reported by: BETTIE ANGLIN on 12/02/18 1012 Paroxetine HCl (Paroxetine HCl) 37.5 Mg Tab.er.24h, 37.5 MG PO HS, (Reported) Entered as Reported by: PEARL SINGLETARY on 02/23/19 0900 Paroxetine HCl (Paroxetine ER) 12.5 Mg Tab.er.24h, 12.5 MG PO DAILY, (Reported) Entered as Reported by: PEARL SINGLETARY on 02/23/19 0900 Potassium Chloride (Potassium Chloride) 10 Meq Tab.er.prt, 10 MEQ PO BID, (Repor mindi) Entered as Reported by: SHANTI BENJAMIN on 01/30/20 1147 Prasugrel HCl (Prasugrel HCl) 10 Mg Tablet, 10 MG PO DAILY, (Reported) Entered as Reported by: BETTIE ANGLIN on 12/02/18 1011 Prazosin HCl (Prazosin HCl) 5 Mg Capsule, 10 MG PO HS, (Reported) Entered as Reported by: PEARL SINGLETARY on 02/23/19 0900 Sucralfate (Sucralfate) 1 Gm Tablet, 1 GM PO ACHS, (Reported) Entered as Reported by: PEARL SINGLETARY on 02/23/19 0900 Tramadol HCl (Tramadol HCl) 50 Mg Tablet, 50 MG PO HS PRN for PAIN-MODERATE (5- 7), (Reported) Entered as Reported by: CHRISTOPHER PETERS on 11/07/19 1257 Umeclidinium Mobile (Incruse Ellipta) 62.5 Mcg Blst.w.dev, 1 PUFF INH DAILY, (Reported) Entered as Reported by: LATESHA PERLA on 07/06/18 2306 Review of Systems Constitutional: other EENTM: no symptoms reported Respiratory: no symptoms reported (Extreme thirst) Cardiovascular: no symptoms reported Gastrointestinal: no symptoms reported Genitourinary: no symptoms reported Musculoskeletal: joint pain Skin: no symptoms reported Psychiatric/Neurological: No Symptoms Reported Past Dykxrge-Oryefk-Axupol Hx Patient Social History Tobacco Use?: Yes Smoking Status: Former Smoker Substance use?: No Alcohol Use?: No Immunizations Up To Date Tetanus Booster (TDap): Unknown First/Initial COVID19 Vaccinat: YES UNSURE OF DATE. Second COVID19 Vaccination Maxwell: YES UNSURE OF DATE. Third COVID19 Vaccination Date: YES UNSURE OF DATE. COVID19 Vaccine Chemical Handler: UNKNOWN Seasonal Allergies Seasonal Allergies: No Past Medical History Surgery/Hospitalization HX: T2DM Surgeries: Yes (3 STENTS IN LEFT LEG AND 3 STENTS RIGHT LEG; AORTIC BYPASS) Abdominal, Cardiac, Coronary Stent Respiratory: Yes (CONT O2 AT NIGHT) Asthma, COPD Currently Using CPAP: No Currently Using BIPAP: No Cardiac: Yes Atrial Fibrillation, Cardiomyopathy, Coronary Artery Disease, Hypertension, Peripheral Vascular Neurological: Yes (PTSD) Sexually Transmitted Disease: No HIV/AIDS: No Genitourinary: Yes Benign Prostatic Hyperpl, Kidney Infection, Prostate Problems, Renal Failure Gastrointestinal: Yes (GI BLEED AUG 2018) Gastrointestinal Bleed, Irritable Bowel Musculoskeletal: Yes Back Injury Endocrine: Yes Diabetes, Insulin dep HEENT: Yes (Are likely dry eyes) Loss of Vision: Bilateral Hearing Impairment: Denies Cancer: No Psychosocial: Yes Anxiety, PTSD Integumentary: No Blood Disorders: No Adverse Reaction/Blood Tranf: No Family Medical History Reviewed Nursing Family Hx Asthma Cardiovascular disease Completed stroke Dementia Hypertension Myocardial infarction Respiratory disorder Visual disorder No Pertinent Family Hx Physical Exam Vital Signs Vital Signs - First Documented 06/01/22 08:11 Temp 36.7 Pulse 91 Resp 16 B/P (MAP) 136/121 (126) Pulse Ox 97 O2 Delivery Room Air Capillary Refill : Less Than 3 Seconds Height, Weight, BMI Height: 5'8.00" Weight: 192lbs. 0.0oz. 87.175323wd; 31.00 BMI Method:Stated General Appearance: WD/WN, no apparent distress HEENT: pharynx normal, other (Severely dry mucous membranes) Neck: non-tender, supple, normal inspection Cardiovascular: regular rate, rhythm, no edema, no gallop, no JVD Respiratory: chest non-tender, lungs clear, normal breath sounds, no respiratory distress, no accessory muscle use Back: normal inspection, no CVA tenderness, no vertebral tenderness Hips: right hip pain (Significant tenderness to the lateral aspect of the right hip. The right leg is shortened and rotated. Neurovascular motor and sensory intact.); bilateral hip other (Scars of bilateral groins for likely bypass, stenting) Legs: bilateral leg non-tender, bilateral leg normal inspection, bilateral leg normal range of motion Knees: bilateral knee non-tender, bilateral knee normal inspection, bilateral knee normal range of motion Ankles: bilateral ankle non-tender, bilateral ankle normal inspection, bilateral ankle normal range of motion Feet: bilateral foot non-tender, bilateral foot normal inspection, bilateral foot normal range of motion Neurologic/Tendon: normal sensation, normal motor functions, normal tendon functions Neurologic/Psychiatric: alert, normal mood/affect, oriented x 3 Skin: normal color, warm/dry Lymphatic: no adenopathy No tenderness bilateral upper extremities, chest wall, abdomen Progress/Results/Core Measures Results/Orders Lab Results Laboratory Tests Test 06/01/22 08:20 Range/Units White Blood Count 22.8 H 4.3-11.0 10^3/uL Red Blood Count 4.36 4.30-5.52 10^6/uL Hemoglobin 12.5 L 13.3-17.7 g/dL Hematocrit 39 L 40-54 % Mean Corpuscular Volume 90 80-99 fL Mean Corpuscular Hemoglobin 29 25-34 pg Mean Corpuscular Hemoglobin Concent 32 32-36 g/dL Red Cell Distribution Width 14.5 10.0-14.5 % Platelet Count 263 130-400 10^3/uL Mean Platelet Volume 11.0 9.0-12.2 fL Immature Granulocyte % (Auto) 1 % Neutrophils (%) (Auto) 92 H 42-75 % Lymphocytes (%) (Auto) 3 L 12-44 % Monocytes (%) (Auto) 4 0-12 % Eosinophils (%) (Auto) 0 0-10 % Basophils (%) (Auto) 0 0-10 % Neutrophils # (Auto) 20.9 H 1.8-7.8 10^3/uL Lymphocytes # (Auto) 0.7 L 1.0-4.0 10^3/uL Monocytes # (Auto) 0.9 0.0-1.0 10^3/uL Eosinophils # (Auto) 0.0 0.0-0.3 10^3/uL Basophils # (Auto) 0.1 0.0-0.1 10^3/uL Immature Granulocyte # (Auto) 0.2 H 0.0-0.1 10^3/uL Neutrophils % (Manual) 88 % Lymphocytes % (Manual) 3 % Monocytes % (Manual) 5 % Eosinophils % (Manual) 0 % Basophils % (Manual) 0 % Band Neutrophils 4 % Blood Morphology Comment NORMAL Prothrombin Time 15.2 H 12.2-14.7 SEC INR Comment 1.2 0.8-1.4 Sodium Level 122 *L 135-145 MMOL/L Potassium Level 6.0 H 3.6-5.0 MMOL/L Chloride Level 83 L 98-107 MMOL/L Carbon Dioxide Level 19 L 21-32 MMOL/L Anion Gap 20 H 5-14 MMOL/L Blood Urea Nitrogen 21 H 7-18 MG/DL Creatinine 3.51 H 0.60-1.30 MG/DL Estimat Glomerular Filtration Rate 18 BUN/Creatinine Ratio 6 Glucose Level 1298 *H 70-105 MG/DL Calcium Level 9.2 8.5-10.1 MG/DL Corrected Calcium 9.2 8.5-10.1 MG/DL Phosphorus Level 5.1 H 2.3-4.7 MG/DL Total Bilirubin 1.3 H 0.1-1.0 MG/DL Aspartate Amino Transf (AST/SGOT) 34 5-34 U/L Alanine Aminotransferase (ALT/SGPT) 50 0-55 U/L Alkaline Phosphatase 194 H 40-136 U/L Total Protein 7.3 6.4-8.2 GM/DL Albumin 4.0 3.2-4.5 GM/DL My Orders Orders - MICHAEL ERICKSON DO Cbc With Automated Diff (06/01/22 08:19) Comprehensive Metabolic Panel (06/01/22 08:19) Protime With Inr (06/01/22 08:19) Fentanyl Inj (Sublimaze Injection) (06/01/22 08:30) Pelvis With Right Hip 2-3views (06/01/22 08:19) Ct Head Wo (06/01/22 08:19) Manual Differential (06/01/22 08:20) Chest 1 View, Ap/Pa Only (06/01/22 09:01) Ua Culture If Indicated (06/01/22 09:02) Ekg Tracing (06/01/22 09:07) Calc Gluc 1 Gm/100 Ml Ivpb (Calcium Gluc (06/01/22 09:15) Insulin (Regular) Human (Novolin R (Per (06/01/22 09:15) Sodium Bicarbonate 8.4% Syr (Sodium Bica (06/01/22 09:15) Insulin Regular Drip (Myxredlin 100 Unit (06/01/22 09:15) Ns Iv 1000 Ml (Sodium Chloride 0.9%) (06/01/22 09:30) Ed Admission (Communication) (06/01/22 09:25) Medications Given in ED Current Medications Medications Dose Ordered Sig/Maryjo Route Start Time Stop Time Status Last Admin Dose Admin Calcium Gluconate/ Sodium Chloride 100 ml @ 120 mls/hr ONCE ONCE IV 06/01/22 09:15 06/01/22 10:04 DC 06/01/22 09:40 120 MLS/HR Fentanyl Citrate 50 mcg ONCE ONCE IVP 06/01/22 08:30 06/01/22 08:31 DC 06/01/22 08:37 50 MCG Insulin Human Regular 10 unit ONCE ONCE IV 06/01/22 09:15 06/01/22 09:16 DC 06/01/22 09:31 10 UNIT Sodium Bicarbonate 50 meq ONCE ONCE IV 06/01/22 09:15 06/01/22 09:16 DC 06/01/22 09:33 50 MEQ Vital Signs/I&O 06/01/22 08:11 Temp 36.7 Pulse 91 Resp 16 B/P (MAP) 136/121 (126) Pulse Ox 97 O2 Delivery Room Air Blood Pressure Mean: 126 Critical Care Note Critical Care Start Time: 08:25 Stop Time: 09:35 Total Time (minutes) 60 Departure Communication (Admissions) Time/Spoke to Admitting Phy: 09:15 Dr Guidry accepts admission for DKA, ALAN, hyperkalemia, R hip fracture Time/Spoke to Consulting Phy: 09:10 Dr Jones will see with regard to hip fracture Patient is hemodynamically stable but he has severe hyperglycemia. Does have what appears to be slight DKA based on the low bicarb and elevated anion gap. He does have hyperkalemia. Sodium is low but corrects to normal when blood sugar is taken into account. He is treated for hyperkalemia with calcium insulin and bicarbonate. He has no EKG changes. He does have significant acute kidney injury, likely from dehydration related to hyperglycemia. Started on IV fluids. He does have a right intertrochanteric hip fracture and I spoke with Dr. Jones who states he will fix them in the next couple of days once his medical issues get sorted out. I spoke with Dr. Guidry who accepts the patient admission to the ICU Impression Primary Impression: DKA, type 2 Qualified Codes: E11.10 - Type 2 diabetes mellitus with ketoacidosis without coma Additional Impressions: ALAN (acute kidney injury) Hip fracture, right Qualified Codes: S72.001A - Fracture of unspecified part of neck of right femur, initial encounter for closed fracture Hyperkalemia Disposition: ADMITTED INPATIENT Condition: Stable Admissions Decision to Admit Reason: Admit from ER (Trauma) Decision to Admit/Date: Jun 01, 2022 Time/Decision to Admit Time: 09:10 Departure-Patient Inst. Referrals: [facility] [place] (PCP/Family) Primary Care Physician MICHAEL ERICKSON DO Jun 01, 2022 09:20
[2022-06-01] MEDS: NS IV 1000 ML 1,000 ML IV SCH ×4 (09:35→20:02)
[2022-06-01 09:38] LABS: BILIRUBIN,URINE NEGATIVE (NEGATIVE); CLARITY,URINE CLEAR; COLOR,URINE YELLOW; GLUCOSE, URINE (UA) 3+ (NEGATIVE); KETONES,URINE NEGATIVE (NEGATIVE); LEUKOCYTE ESTERASE ,URINE NEGATIVE (NEGATIVE); NITRITE,URINE NEGATIVE (NEGATIVE); PH,URINE 5.5 (5-9); PROTEIN,URINE NEGATIVE (NEGATIVE)
[2022-06-01 09:50] LABS: BACTERIA,URINE NEGATIVE /HPF; RBC,URINE RARE /HPF
[2022-06-01] MEDS ORDERED: ONDANSETRON 4 MG/2 ML (SDV) Z0FRAN ONE (09:52)
[2022-06-01] MEDS ORDERED: ONDANSETRON 4 MG/2 ML (SDV) Z0FRAN IVP ONE (10:00)
[2022-06-01 10:44] VITALS: BP 136/121
[2022-06-01] MEDS ORDERED: RT-ALBUTEROL SULF 2.5 MG/3 ML PRE-MIX VIAL INH PRN (11:00)
[2022-06-01] MEDS ORDERED: ASPIRIN 325 MG (5 GR) TABLET PO NR (11:00)
[2022-06-01] MEDS ORDERED: PANTOPRAZOLE 40 MG (PROTONIX) TAB PO NR (11:00)
[2022-06-01 11:17] LABS: HEMATOCRIT 35 % (40-54); HEMOGLOBIN 11.7 g/dL (13.3-17.7); MEAN CORPUSCULAR HEMOGLOBIN 29 pg (25-34); MEAN CORPUSCULAR HGB CONC 34 g/dL (32-36); MEAN CORPUSCULAR VOLUME 86 fL (80-99); MEAN PLATELET VOLUME 11.1 fL (9.0-12.2); PLATELET COUNT 223 10^3/uL (130-400); WHITE BLOOD COUNT 19.8 10^3/uL (4.3-11.0)
[2022-06-01 11:33] LABS: POTASSIUM 4.6 MMOL/L (3.6-5.0)
[2022-06-01 11:34] LABS: CALCIUM 8.8 MG/DL (8.5-10.1)
[2022-06-01 11:39] LABS: CREATININE SERUM 3.37 MG/DL (0.60-1.30); PHOSPHORUS 4.2 MG/DL (2.3-4.7)
[2022-06-01 11:41] LABS: MAGNESIUM 2.5 MG/DL (1.6-2.4)
--- NOTE | 2022-06-01 11:52 | Tele-ICU Consult ---
History of Present Illness History of Present Illness Date Seen by Provider: Jun 01, 2022 Time Seen by Provider: 11:47 Date of Admission 06/01/2022 History of Present Illness 71 yr old male with hx of type 2 dm apparently fell at home yesterday and sustained injury to rt hip and unable to getup. today came to er via ems and found to have hhs with rt hip fracture and edenilson. video visit made and discussed with FURNACE UNLOADER. LABS REVIEWED. Allergies and Home Medications Allergies Coded Allergies: No Known Drug Allergies (Verified , 07/08/18) Home Medications Acetaminophen 500 Mg Tablet, 500-1,000 MG PO Q6H PRN for PAIN-MILD, (Reported) Albuterol Sulfate 6.7 Gm Hfa.aer.ad, 2 PUFF INH Q6H PRN for SHORTNESS OF BREATH, (Reported) Rdrsx-D-Vgsmuctljshfl 150 Unit Tablet, 150 UNIT PO QID, (Reported) Aspirin 81 Mg Tablet.dr, 81 MG PO DAILY, (Reported) Atorvastatin Calcium 80 Mg Tablet, 80 MG PO DAILY, (Reported) Biotin 1,000 Mcg Tablet, 1,000 MCG PO DAILY, (Reported) Bisacodyl 5 Mg Tablet.dr, 10 MG PO DAILY PRN for CONSTIPATION-4TH LINE, (Reported) Budesonide/Formoterol Fumarate 10.2 Gm Hfa.aer.ad, 2 PUFF IH BID, (Reported) Caffeine 200 Mg Tablet, 200-400 MG PO BID PRN for DROWSINESS, (Reported) Diphenhydramine HCl 25 Mg Tablet, 50 MG PO HS PRN for ALLERGIES/ANXIETY, (Reported) Ferrous Sulfate 325 Mg Tablet, 325 MG PO DAILY, (Reported) Finasteride 5 Mg Tablet, 5 MG PO DAILY, (Reported) Fish Oil/Borage/Flax/Om3,6,9#1 400 Mg Capsule, 1 CAP PO BID, (Reported) Furosemide 20 Mg Tablet, 20 MG PO DAILY, (Reported) Gabapentin 300 Mg Capsule, 300 MG PO DAILY, (Reported) Gabapentin 300 Mg Capsule, 600 MG PO HS, (Reported) TAKES 2 (300MG) CAPS Guaifenesin 400 Mg Tablet, 400 MG PO PRN PRN for CONGESTION, (Reported) Hydrocodone/Acetaminophen 1 Each Tablet, 1 EACH PO Q4H PRN for PAIN-BREAKTHROUGH Prescribed by: ADE COLLINS on 10/17/21 0104 Insulin Determir 1,000 Units/10 Ml Soln, 50 UNITS SQ HS, (Reported) Lisinopril 10 Mg Tablet, 10 MG PO DAILY, (Reported) LAST FILLED 08-29-2019 #90 Metoprolol Succinate 100 Mg Tab.er.24h, 100 MG PO DAILY@2100 Prescribed by: GENNA DUMONT on 02/01/20 1109 Multivitamin 1 Each Tablet, 1 EACH PO DAILY AT NOON, (Reported) Ondansetron 4 Mg Tab.rapdis, 4 MG PO Q6H PRN for NAUSEA/VOMITING Prescribed by: ADE COLLINS on 08/30/20 2207 Ondansetron 8 Mg Tab.rapdis, 8 MG PO Q6H PRN for NAUSEA/VOMITING Prescribed by: KIARA CABALLERO on 09/18/21 1216 Ondansetron 4 Mg Tab.rapdis, 4 MG PO Q6H PRN for NAUSEA/VOMITING Prescribed by: ADE COLLINS on 10/17/21 0103 Oxymetazoline HCl 15 Ml Mist, 1 SPRAY NS PRN, (Reported) Pantoprazole Sodium 40 Mg Tablet.dr, 40 MG PO BID, (Reported) Paroxetine HCl 37.5 Mg Tab.er.24h, 37.5 MG PO HS, (Reported) Paroxetine HCl 12.5 Mg Tab.er.24h, 12.5 MG PO DAILY, (Reported) Potassium Chloride 10 Meq Tab.er.prt, 10 MEQ PO BID, (Reported) Prasugrel HCl 10 Mg Tablet, 10 MG PO DAILY, (Reported) Prazosin HCl 5 Mg Capsule, 10 MG PO HS, (Reported) TAKES 2 (5MG) CAPSULES Sucralfate 1 Gm Tablet, 1 GM PO ACHS, (Reported) Tramadol HCl 50 Mg Tablet, 50 MG PO HS PRN for PAIN-MODERATE (5-7), (Reported) Umeclidinium [place] 62.5 Mcg Blst.w.dev, 1 PUFF INH DAILY, (Reported) Past Medical/Social/Family Hx Patient Social History Tobacco Use?: No Smoking Status: Former Smoker Use of E-Cig and/or Vaping dev: Unable to obtain Substance use?: Unable to obtain Alcohol Use?: Unable to obtain Immunizations Up To Date Influenza Vaccine Up-to-Date: No; Not Current First/Initial COVID19 Vaccinat: YES UNSURE OF DATE. Second COVID19 Vaccination Maxwell: YES UNSURE OF DATE. Tetanus Booster (TDap): Unknown Date of Pneumonia Vaccine: Dec 02, 2016 Current Status Advance Directives: Yes Advance Directive Location: Unable to obtain copy Communicates: Verbally Primary Language: [place] Preferred Spoken Language: [place] Is interpretation needed?: No Sensory deficits: Vision impairment, Hearing impairment Implanted or Applied Medical D: None Past Medical History 1. IBS mixed 2. Back pain 3. COPD 4. DM Type 2 5. HTN 6. PTSD 7. Panic Attacks 8. Kidney Infections bilaterally 9. BPH Review of Systems Constitutional: see HPI, other (in moderate pain) Focused Exam Height, Weight, BMI Height: 5'8.00" Weight: 192lbs. 0.0oz. 87.697488qj; 31.58 BMI Method:Stated Exam Exam Patient acknowledged, consented, and participated in this virtual visit which was conducted using real time audio/video Vital Signs Date Time Temp Pulse Resp B/P (MAP) Pulse Ox O2 Delivery O2 Flow Rate FiO2 06/01/22 11:00 89 34 156/94 (114) 91 Room Air 06/01/22 10:45 91 22 105/66 (79) 96 Room Air 06/01/22 10:44 36.7 91 97 21 06/01/22 10:44 96 06/01/22 10:00 78 16 106/58 96 Room Air 06/01/22 08:11 36.7 91 16 136/121 (126) 97 Room Air Height & Weight Height: 5'8.00" Weight: 192lbs. 0.0oz. 87.126246qv; 31.58 BMI Method:Stated General Appearance: Anxious Capillary Refill: Less Than 3 Seconds Results Lab Laboratory Tests 06/01/22 08:20 06/01/22 11:05 Assessment/Plan Assessment/Plan 1. type 2 dm hyperosmolar state with out coma. 2. rt hip fracture. 3.edenilson due to dehydration. R/O rhabdo myolysis. 4. hypo natremia probably pseudo b/o hyperglycemia Plan 1. insulin drip per protocol and monitor elctrolytes and sugars per primary care. 2. hydrate and monitor bun/cr. 3. check cpk. 4. DVT AND GASTRIC prophylaxis Critical Care: Critically Ill Patient Time spent with patient (mins): 20 KAELYN OSULLIVAN MD Jun 01, 2022 11:52
[2022-06-01 13:19] LABS: POTASSIUM 4.4 MMOL/L (3.6-5.0)
[2022-06-01 13:21] LABS: CALCIUM 8.3 MG/DL (8.5-10.1)
[2022-06-01 13:25] LABS: CREATININE SERUM 3.05 MG/DL (0.60-1.30)
[2022-06-01] MEDS ORDERED: NS IV 1000 ML 1,000 ML IV SCH (14:00)
[2022-06-01] MEDS: POTASSIUM CL 10MEQ/50ML IVPB 50 ML IV SCH ×8 (14:00→22:33)
--- NOTE | 2022-06-01 14:46 | Consultation-Cardiology ---
HPI-Cardiology Cardiology Consultation: Date of Consultation 06/01/22 Date of Admission 06/01/22 Attending Physician [facility] Admitting Physician Admitting Physician: Dhiraj Guidry MD Attending Physician: Dhiraj Guidry MD Consulting Physician NEAL CLARKE JR, MD HPI: Time Seen by a Provider: 14:41 Chief Complaint: REASON FOR CONSULTATION: Preoperative evaluation for right hip surgery due to right femur fracture. I had the pleasure of seeing Salomon in the intensive care unit at [facility] in [place], [place] this afternoon. He has an extensive past cardiac history and normally follows with one of my partners, Dr. Saravia. The patient is currently somewhat confused and is on an insulin drip due to hyperosmolar state with possible diabetic ketoacidosis. He tells me that he slipped on some water in his bathroom and fell to the floor. He told me he got up off the floor and called 911 for help. However, earlier in the day he told some other staff that he had laid on the floor for a day and was eventually able to crawl to his cell phone to call for help. Nonetheless, he was brought to the hospital by rescue and during his evaluation, he was found to have a right femur fracture. Because of his past cardiac history, a preoperative cardiovascular evaluation was requested by the hospitalist. He states that he has chronic dyspnea on exertion and does not feel as though this has changed all that much over the past few weeks. He denies chest discomfort, paroxysmal nocturnal dyspnea, orthopnea, palpitations, lightheadedness, syncope, or ankle edema. He tells me that he has been eating and drinking fine and has been taking all of his prescribed medications. However, due to his confusion, some of his answers may not be reliable. Certain portions of this document may have been dictated utilizing voice recognition technology. Inherent to this technology, typographical and grammatical errors may exist. As much as I am diligent to identify and correct these mistakes, some errors may remain in the document. Review of Systems-Cardiology Review of Systems Other comments Review of 10 organ systems is as per the history of present illness, otherwise negative. However, as above, due to his confusion, some of his answers may not be reliable. VFO-Bvokxr-Caynbn Hx Patient Social History Smoking Status: Former Smoker 2nd Hand Smoke Exposure: No Have you traveled recently?: No Alcohol Use?: Unable to obtain Immunizations Up To Date Tetanus Booster (TDap): Unknown Date of Pneumonia Vaccine: Dec 02, 2016 Date of Influenza Vaccine: May 24, 2019 Past Medical History PMH As described under Assessment. Family Medical History Family Medical History: He tells me none of his first-degree relatives have a history of premature coronary artery disease. Family History: Asthma Cardiovascular disease Completed stroke Dementia Hypertension Myocardial infarction Respiratory disorder Visual disorder Allergies and Home Medications Allergies Coded Allergies: No Known Drug Allergies (Verified , 07/08/18) Patient Home Medication List Home Medication List Reviewed: Yes Acetaminophen (Tylenol Extra Strength) 500 Mg Tablet, 500-1,000 MG PO Q6H PRN for PAIN-MILD, (Reported) Entered as Reported by: PEARL SINGLETARY on 12/09/18 1109 Albuterol Sulfate (Proventil Hfa) 6.7 Gm Hfa.aer.ad, 2 PUFF INH Q6H PRN for SHORTNESS OF BREATH, (Reported) Entered as Reported by: BETTIE ANGLIN on 12/02/18 1014 Hrpci-M-Phxltwqwfxzjc (Beano) 150 Unit Tablet, 150 UNIT PO QID, (Reported) Entered as Reported by: CHRISTOPHER PETERS on 11/07/19 1257 Aspirin (Aspirin EC) 81 Mg Tablet.dr, 81 MG PO DAILY, (Reported) Entered as Reported by: PEARL SINGLETARY on 02/23/19 0900 Atorvastatin Calcium (Atorvastatin Calcium) 80 Mg Tablet, 80 MG PO DAILY, (Reported) Entered as Reported by: PEARL SINGLETARY on 12/09/18 1109 Biotin (Biotin) 1,000 Mcg Tablet, 1,000 MCG PO DAILY, (Reported) Entered as Reported by: SHANTI BENJAMIN on 01/30/20 1147 Bisacodyl (Bisacodyl) 5 Mg Tablet.dr, 10 MG PO DAILY PRN for CONSTIPATION-4TH LI NE, (Reported) Entered as Reported by: PEARL SINGLETARY on 12/09/18 1109 Budesonide/Formoterol Fumarate (Symbicort 160-4.5 Mcg Inhaler) 10.2 Gm Hfa.aer.ad, 2 PUFF IH BID, (Reported) Entered as Reported by: SHANTI BENJAMIN on 01/30/20 1147 Caffeine (Caffeine) 200 Mg Tablet, 200-400 MG PO BID PRN for DROWSINESS, (Reported) Entered as Reported by: PEARL SINGLETARY on 12/09/18 1109 Diphenhydramine HCl (Benadryl Allergy) 25 Mg Tablet, 50 MG PO HS PRN for ALLERGIES/ANXIETY, (Reported) Entered as Reported by: PEARL SINGLETARY on 12/09/18 1109 Ferrous Sulfate (Ferrous Sulfate) 325 Mg Tablet, 325 MG PO DAILY, (Reported) Entered as Reported by: SHANTI BENJAMIN on 01/30/20 1147 Finasteride (Finasteride) 5 Mg Tablet, 5 MG PO DAILY, (Reported) Entered as Reported by: BETTIE ANGLIN on 12/02/18 1012 Fish Oil/Borage/Flax/Om3,6,9#1 (Rqpujptw-Loxf-Apscxz Oil Sftgl) 400 Mg Capsule, 1 CAP PO BID, (Reported) Entered as Reported by: PEARL SINGLETARY on 02/23/19 09 Furosemide (Furosemide) 20 Mg Tablet, 20 MG PO DAILY, (Reported) Entered as Reported by: PEARL SINGLETARY on 02/23/19 09 Gabapentin (Neurontin) 300 Mg Capsule, 300 MG PO DAILY, (Reported) Entered as Reported by: SHANTI BENJAMIN on 01/30/20 1147 Gabapentin (Neurontin) 300 Mg Capsule, 600 MG PO HS, (Reported) Entered as Reported by: SHANTI BENJAMIN on 01/30/20 1147 Guaifenesin (Mucus Relief) 400 Mg Tablet, 400 MG PO PRN PRN for CONGESTION, (Reported) Entered as Reported by: CHRISTOPHER PETERS on 11/07/19 1257 Hydrocodone/Acetaminophen (Hydrocodone-Acetamin 7.5-325) 1 Each Tablet, 1 EACH PO Q4H PRN for PAIN-BREAKTHROUGH Prescribed by: ADE COLLINS on 10/17/21 0104 Insulin Determir (Levemir) 1,000 Units/10 Ml Soln, 50 UNITS SQ HS, (Reported) Entered as Reported by: CHRISTOPHER PETERS on 11/07/19 1257 Lisinopril (Lisinopril) 10 Mg Tablet, 10 MG PO DAILY, (Reported) Entered as Reported by: PEARL SINGLETARY on 02/23/19 0900 Metoprolol Succinate (Metoprolol Succinate) 100 Mg Tab.er.24h, 100 MG PO DAILY@2100 Prescribed by: GENNA DUMONT on 02/01/20 1109 Multivitamin (Multivitamins) 1 Each Tablet, 1 EACH PO DAILY AT NOON, (Reported) Entered as Reported by: CHRISTOPHER PETERS on 11/07/19 1257 Ondansetron (Ondansetron Odt) 4 Mg Tab.rapdis, 4 MG PO Q6H PRN for NAUSEA/VOMITING Prescribed by: ADE COLLINS on 08/30/20 2207 Ondansetron (Ondansetron Odt) 8 Mg Tab.rapdis, 8 MG PO Q6H PRN for NAUSEA/VOMITING Prescribed by: KIARA CABALLERO on 09/18/21 1216 Ondansetron (Ondansetron Odt) 4 Mg Tab.rapdis, 4 MG PO Q6H PRN for NAUSEA /VOMITING Prescribed by: ADE COLLINS on 10/17/21 0103 Oxymetazoline HCl (Afrin) 15 Ml Mist, 1 SPRAY NS PRN, (Reported) Entered as Reported by: CHRISTOPHER PETERS on 11/07/19 1257 Pantoprazole Sodium (Pantoprazole Sodium) 40 Mg Tablet.dr, 40 MG PO BID, (Reported) Entered as Reported by: BETTIE ANGLIN on 12/02/18 1012 Paroxetine HCl (Paroxetine HCl) 37.5 Mg Tab.er.24h, 37.5 MG PO HS, (Reported) Entered as Reported by: PEARL SINGLETARY on 02/23/19 0900 Paroxetine HCl (Paroxetine ER) 12.5 Mg Tab.er.24h, 12.5 MG PO DAILY, (Reported) Entered as Reported by: PEARL SINGLETARY on 02/23/19 0900 Potassium Chloride (Potassium Chloride) 10 Meq Tab.er.prt, 10 MEQ PO BID, (Reported) Entered as Reported by: SHANTI BENJAMIN on 01/30/20 1147 Prasugrel HCl (Prasugrel HCl) 10 Mg Tablet, 10 MG PO DAILY, (Reported) Entered as Reported by: BETTIE ANGLIN on 12/02/18 1011 Prazosin HCl (Prazosin HCl) 5 Mg Capsule, 10 MG PO HS, (Reported) Entered as Reported by: PEARL SINGLETARY on 02/23/19 0900 Sucralfate (Sucralfate) 1 Gm Tablet, 1 GM PO ACHS, (Reported) Entered as Reported by: PEARL SINGLETARY on 02/23/19 0900 Tramadol HCl (Tramadol HCl) 50 Mg Tablet, 50 MG PO HS PRN for PAIN-MODERATE (5- 7), (Reported) Entered as Reported by: CHRISTOPHER PETERS on 11/07/19 1257 Umeclidinium [place] (Incruse Ellipta) 62.5 Mcg Blst.w.dev, 1 PUFF INH DAILY, (Reported) Entered as Reported by: LATESHA PERLA on 07/06/18 2306 Exam Vital Signs Vital Signs Date Time Temp Pulse Resp B/P (MAP) Pulse Ox O2 Delivery O2 Flow Rate FiO2 06/01/22 14:00 78 15 114/54 (74) 93 Room Air 06/01/22 10:44 36.7 21 Physical Exam General: Awake but confused and seems to fall asleep during questions. No acute distress. Well nourished and appears stated age. Eye: Extraocular movements are intact. Conjunctivae are clear. There are no xanthelasma. HENT: Normocephalic. Atraumatic. Carotid pulsations 2/2 without bruits. Neck: Jugular venous pressure does not appear elevated. No thyromegaly appreciated. Respiratory: Lungs are clear to auscultation. Respirations are non-labored. Breath sounds are equal. Symmetrical chest wall expansion. Cardiovascular: Normal rate. Regular rhythm. No murmur. No gallop. Point of maximal impulse is not appear displaced. Diminished lower extremity pulses. No edema. Gastrointestinal: Soft. Normal bowel sounds. Skin: Skin turgor is normal. There is no pallor. Musculoskeletal: No kyphosis or scoliosis appreciated. Neurologic: Somnolent and oriented to person and place but not time. Cranial nerves 3-12 appear grossly intact. The patient has good motor tone strength in the upper and lower extremities bilaterally. Psychiatric: Somnolent and confused. Labs Laboratory Tests Test 06/01/22 08:20 06/01/22 09:33 06/01/22 11:05 06/01/22 13:00 Range/Units White Blood Count 22.8 H 19.8 H 4.3-11.0 10^3/uL Red Blood Count 4.36 4.06 L 4.30-5.52 10^6/uL Hemoglobin 12.5 L 11.7 L 13.3-17.7 g/dL Hematocrit 39 L 35 L 40-54 % Mean Corpuscular Volume 90 86 80-99 fL Mean Corpuscular Hemoglobin 29 29 25-34 pg Mean Corpuscular Hemoglobin Concent 32 34 32-36 g/dL Red Cell Distribution Width 14.5 14.3 10.0-14.5 % Platelet Count 263 223 130-400 10^3/uL Mean Platelet Volume 11.0 11.1 9.0-12.2 fL Immature Granulocyte % (Auto) 1 % Neutrophils (%) (Auto) 92 H 42-75 % Lymphocytes (%) (Auto) 3 L 12-44 % Monocytes (%) (Auto) 4 0-12 % Eosinophils (%) (Auto) 0 0-10 % Basophils (%) (Auto) 0 0-10 % Neutrophils # (Auto) 20.9 H 1.8-7.8 10^3/uL Lymphocytes # (Auto) 0.7 L 1.0-4.0 10^3/uL Monocytes # (Auto) 0.9 0.0-1.0 10^3/uL Eosinophils # (Auto) 0.0 0.0-0.3 10^3/uL Basophils # (Auto) 0.1 0.0-0.1 10^3/uL Immature Granulocyte # (Auto) 0.2 H 0.0-0.1 10^3/uL Neutrophils % (Manual) 88 % Lymphocytes % (Manual) 3 % Monocytes % (Manual) 5 % Eosinophils % (Manual) 0 % Basophils % (Manual) 0 % Band Neutrophils 4 % Blood Morphology Comment NORMAL Prothrombin Time 15.2 H 12.2-14.7 SEC INR Comment 1.2 0.8-1.4 Sodium Level 122 *L 127 L 130 L 135-145 MMOL/L Potassium Level 6.0 H 4.6 4.4 3.6-5.0 MMOL/L Chloride Level 83 L 90 L 95 L 98-107 MMOL/L Carbon Dioxide Level 19 L 16 L 20 L 21-32 MMOL/L Anion Gap 20 H 21 H 15 H 5-14 MMOL/L Blood Urea Nitrogen 21 H 22 H 21 H 7-18 MG/DL Creatinine 3.51 H 3.37 H 3.05 H 0.60-1.30 MG/DL Estimat Glomerular Filtration Rate 18 19 21 BUN/Creatinine Ratio 6 7 7 Glucose Level 1298 *H 1145 *H 912 *H 70-105 MG/DL Calcium Level 9.2 8.8 8.3 L 8.5-10.1 MG/DL Corrected Calcium 9.2 8.5-10.1 MG/DL Phosphorus Level 5.1 H 4.2 2.3-4.7 MG/DL Total Bilirubin 1.3 H 0.1-1.0 MG/DL Aspartate Amino Transf (AST/SGOT) 34 5-34 U/L Alanine Aminotransferase (ALT/SGPT) 50 0-55 U/L Alkaline Phosphatase 194 H 40-136 U/L Total Protein 7.3 6.4-8.2 GM/DL Albumin 4.0 3.2-4.5 GM/DL Urine Color YELLOW Urine Clarity CLEAR Urine pH 5.5 5-9 Urine Specific [place] <=1.005 1.016-1.022 Urine Protein NEGATIVE NEGATIVE Urine Glucose (UA) 3+ H NEGATIVE Urine Ketones NEGATIVE NEGATIVE Urine Nitrite NEGATIVE NEGATIVE Urine Bilirubin NEGATIVE NEGATIVE Urine Urobilinogen 0.2 < = 1.0 MG/DL Urine Leukocyte Esterase NEGATIVE NEGATIVE Urine RBC (Auto) NEGATIVE NEGATIVE Urine RBC RARE /HPF Urine WBC NONE /HPF Urine Crystals NONE /LPF Urine Bacteria NEGATIVE /HPF Urine Casts NONE /LPF Urine Mucus NEGATIVE /LPF Urine Culture Indicated NO Magnesium Level 2.5 H 1.6-2.4 MG/DL Total Creatine Kinase 254 H 30-200 U/L Beta-Hydroxybutyrate (Chem panel) 0.61 H 0.00-0.27 MMOL/L ECG Impression ECG Comment Sinus rhythm with first-degree AV block, left anterior hemiblock, possible old inferior myocardial infarction, and poor R wave progression. Diagnosis/Problems Diagnosis/Problems (1) Preoperative cardiovascular examination Assessment & Plan: Given the urgent need for his procedure and his underlying cardiac status as well as noncardiac issues, he will be at high risk of a perioperative cardiac event while undergoing his orthopedic procedure. The risk can be kept to a minimum by continuing any of his cardiac medications that he will tolerate and being cautious with intravenous fluids. In the preoperative stress test will not change his risk status. (2) Chronic combined systolic and diastolic congestive heart failure Assessment & Plan: From what I can gather from the patient, he seems to have been reasonably constipated and sedated prior to admission. Now he has multiple metabolic derangements which makes giving him his normal cardiac medications difficult at this time. Once his metabolic derangements have improved, and his blood pressure is better, we can try to restart some of his cardiac medications. (3) Ischemic cardiomyopathy Assessment & Plan: His most recent echocardiogram from 12/01/2018 showed an ejection fraction of 45-50%. I recommend a follow-up echocardiogram. (4) Coronary artery disease without angina pectoris Assessment & Plan: He does not seem to be having any overt angina at this point in time. I recommend he continue on aspirin and statin medication. We can attempt to resume beta-[place] once his blood pressure is better. (5) Primary hypertension Assessment & Plan: His antihypertensive medication is currently on hold due to somewhat low blood pressure coupled with his acute kidney injury and other metabolic derangements. (6) Mixed hyperlipidemia Assessment & Plan: Continue statin medication. Statin medications administered in the perioperative period have been shown to reduce perioperative cardiac events. (7) Aortic regurgitation Assessment & Plan: His most recent echocardiogram from 2018 showed mild to moderate aortic regurgitation. This will need to be followed longitudinally but should not impact his orthopedic procedure. (8) Pulmonary hypertension Assessment & Plan: Most likely due to his heart failure and probably some underlying chronic pulmonary disease. Continue oxygen. (9) Acute kidney injury superimposed on chronic kidney disease Assessment & Plan: I suspect this is multifactorial. He is currently receiving intravenous fluid due to the hyperosmolar state and possible diabetic ketoacidosis coupled with possible superimposed rhabdomyolysis. NEAL CLARKE JR, MD Jun 01, 2022 14:46
[2022-06-01] MEDS ORDERED: ASPIRIN 81 MG CHEW (CHILDREN'S ASA) ONE (15:30)
[2022-06-01] MEDS: 1/2 NS IV SOLUTION 1,000 ML IV SCH ×3 (15:42→20:00)
--- NOTE | 2022-06-01 15:42 | Consultation - Ortho ---
Consult - Ortho Subjective Date of Exam 06/01/22 Chief Complaint Right Hip Injury HPI/Events since last exam fell yesterday, down all night, seen in ER and diagnosed with right intertrochanteric femur fracture, glucose 1200 admitted to ICU Medical, Surgical History see admit Social History see admit Family History see admit Review of Systems see admit Allergies: Coded Allergies: No Known Drug Allergies (Verified , 07/08/18) Home Meds Active Scripts Ondansetron (Ondansetron Odt) 4 Mg Tab.rapdis, 4 MG PO Q6H PRN for NAUSEA/VOMITING, #20 TAB 0 Refills Prov:ADE COLLINS 10/17/21 Hydrocodone/Acetaminophen (Hydrocodone-Acetamin 7.5-325) 1 Each Tablet, 1 EACH PO Q4H PRN for PAIN-BREAKTHROUGH, #14 TAB 0 Refills Prov:ADE COLLINS 10/17/21 Ondansetron (Ondansetron Odt) 8 Mg Tab.rapdis, 8 MG PO Q6H PRN for NAUSEA/VOMITING, #20 TAB Prov:KIARA CABALLERO STOCK DRIVER 09/18/21 Ondansetron (Ondansetron Odt) 4 Mg Tab.rapdis, 4 MG PO Q6H PRN for NAUSEA/VOMITING, #8 TAB 0 Refills Prov:ADE COLLINS 08/30/20 Metoprolol Succinate (Metoprolol Succinate) 100 Mg Tab.er.24h, 100 MG PO DAILY@2100, #30 TAB Prov:GENNA DUMONT MD 02/01/20 Reported Medications Biotin (Biotin) 1,000 Mcg Tablet, 1000 MCG PO DAILY, TAB 01/30/20 Budesonide/Formoterol Fumarate (Symbicort 160-4.5 Mcg Inhaler) 10.2 Gm Hfa.aer.ad, 2 PUFF IH BID, INHALER 01/30/20 Ferrous Sulfate (Ferrous Sulfate) 325 Mg Tablet, 325 MG PO DAILY, TAB 01/30/20 Gabapentin (Neurontin) 300 Mg Capsule, 600 MG PO HS, CAP TAKES 2 (300MG) CAPS 01/30/20 Gabapentin (Neurontin) 300 Mg Capsule, 300 MG PO DAILY, CAP 01/30/20 Potassium Chloride (Potassium Chloride) 10 Meq Tab.er.prt, 10 MEQ PO BID 01/30/20 Insulin Determir (Levemir) 1,000 Units/10 Ml Soln, 50 UNITS SQ HS, EA 11/07/19 Multivitamin (Multivitamins) 1 Each Tablet, 1 EACH PO DAILY AT NOON, TAB 11/07/19 Oxymetazoline HCl (Afrin) 15 Ml Mist, 1 SPRAY NS PRN, EA 11/07/19 Ybnpm-N-Lkgasexuyivvz (Beano) 150 Unit Tablet, 150 UNIT PO QID, TAB 11/07/19 Guaifenesin (Mucus Relief) 400 Mg Tablet, 400 MG PO PRN PRN for CONGESTION, TAB 11/07/19 Tramadol HCl (Tramadol HCl) 50 Mg Tablet, 50 MG PO HS PRN for PAIN-MODERATE (5- 7), TAB 11/07/19 Fish Oil/Borage/Flax/Om3,6,9#1 (Jdfoprki-Joik-Jvpsei Oil Sftgl) 400 Mg Capsule, 1 CAP PO BID, CAP 02/23/19 Lisinopril (Lisinopril) 10 Mg Tablet, 10 MG PO DAILY, TAB LAST FILLED 08-29-2019 #90 02/23/19 Aspirin (Aspirin EC) 81 Mg Tablet.dr, 81 MG PO DAILY, TAB 02/23/19 Sucralfate (Sucralfate) 1 Gm Tablet, 1 GM PO ACHS, TAB 02/23/19 Paroxetine HCl (Paroxetine ER) 12.5 Mg Tab.er.24h, 12.5 MG PO DAILY, TAB 02/23/19 Paroxetine HCl (Paroxetine HCl) 37.5 Mg Tab.er.24h, 37.5 MG PO HS, TAB 02/23/19 Furosemide (Furosemide) 20 Mg Tablet, 20 MG PO DAILY, TAB 02/23/19 Prazosin HCl (Prazosin HCl) 5 Mg Capsule, 10 MG PO HS, CAP TAKES 2 (5MG) CAPSULES 02/23/19 Acetaminophen (Tylenol Extra Strength) 500 Mg Tablet, 500-1000 MG PO Q6H PRN for PAIN-MILD, TAB 12/09/18 Caffeine (Caffeine) 200 Mg Tablet, 200-400 MG PO BID PRN for DROWSINESS, TAB 12/09/18 Diphenhydramine HCl (Benadryl Allergy) 25 Mg Tablet, 50 MG PO HS PRN for ALLERGIES/ANXIETY, TAB 12/09/18 Bisacodyl (Bisacodyl) 5 Mg Tablet.dr, 10 MG PO DAILY PRN for CONSTIPATION-4TH LINE, TAB 12/09/18 Atorvastatin Calcium (Atorvastatin Calcium) 80 Mg Tablet, 80 MG PO DAILY, TAB 12/09/18 Albuterol Sulfate (Proventil Hfa) 6.7 Gm Hfa.aer.ad, 2 PUFF INH Q6H PRN for SHORTNESS OF BREATH, INHALER 12/02/18 Finasteride (Finasteride) 5 Mg Tablet, 5 MG PO DAILY, TAB 12/02/18 Pantoprazole Sodium (Pantoprazole Sodium) 40 Mg Tablet.dr, 40 MG PO BID, TAB 12/02/18 Prasugrel HCl (Prasugrel HCl) 10 Mg Tablet, 10 MG PO DAILY, TAB 12/02/18 Umeclidinium [place] (Incruse Ellipta) 62.5 Mcg Blst.w.dev, 1 PUFF INH DAILY, INHALER 07/06/18 Objective Exam Constitutional: Confused Right Leg: held in external rotation, no ecchymosis, no abrasion, positive dorsiflexion, distal pulse palpable, sensation grossly intact to light touch Vital Signs Vital Signs Date Time Temp Pulse Resp B/P (MAP) Pulse Ox O2 Delivery O2 Flow Rate FiO2 06/01/22 15:00 78 123/80 (94) Room Air 06/01/22 14:00 78 15 114/54 (74) 93 Room Air 06/01/22 13:00 84 13 128/66 (86) 97 Room Air 06/01/22 12:42 85 06/01/22 12:00 85 18 124/100 (108) 96 Room Air 06/01/22 11:00 89 26 156/94 (114) 91 Room Air 06/01/22 10:45 91 22 105/66 (79) 96 Room Air 06/01/22 10:44 36.7 91 97 21 06/01/22 10:44 96 06/01/22 10:00 78 16 106/58 96 Room Air 06/01/22 08:11 36.7 91 16 136/121 (126) 97 Room Air Lab Results Laboratory Tests 06/01/22 08:20: White Blood Count 22.8H, Red Blood Count 4.36, Hemoglobin 12.5L, Hematocrit 39L, Mean Corpuscular Volume 90, Mean Corpuscular Hemoglobin 29, Mean Corpuscular Hemoglobin Concent 32, Red Cell Distribution Width 14.5, Platelet Count 263, Mean Platelet Volume 11.0, Immature Granulocyte % (Auto) 1, Neutrophils (%) (Auto) 92H, Lymphocytes (%) (Auto) 3L, Monocytes (%) (Auto) 4, Eosinophils (%) (Auto) 0, Basophils (%) (Auto) 0, Neutrophils # (Auto) 20.9H, Lymphocytes # (Auto) 0.7L, Monocytes # (Auto) 0.9, Eosinophils # (Auto) 0.0, Basophils # (Auto) 0.1, Immature Granulocyte # (Auto) 0.2H, Neutrophils % (Manual) 88, Lymphocytes % (Manual) 3, Monocytes % (Manual) 5, Eosinophils % (Manual) 0, Basophils % (Manual) 0, Band Neutrophils 4, Blood Morphology Comment NORMAL, Prothrombin Time 15.2H, INR Comment 1.2, Sodium Level 122*L, Potassium Level 6.0H, Chloride Level 83L, Carbon Dioxide Level 19L, Anion Gap 20H, Blood Urea Nitrogen 21H, Creatinine 3.51H, Estimat Glomerular Filtration Rate 18, BUN/Creatinine Ratio 6, Glucose Level 1298*H, Calcium Level 9.2, Corrected Calcium 9.2, Phosphorus Level 5.1H, Total Bilirubin 1.3H, Aspartate Amino Transf (AST/SGOT) 34, Alanine Aminotransferase (ALT/SGPT) 50, Alkaline Phosphatase 194H , Total Protein 7.3, Albumin 4.0 06/01/22 09:33: Urine Color YELLOW, Urine Clarity CLEAR, Urine pH 5.5, Urine Specific [place] <=1.005, Urine Protein NEGATIVE, Urine Glucose (UA) 3+H, Urine Ketones NEGATIVE, Urine Nitrite NEGATIVE, Urine Bilirubin NEGATIVE, Urine Urobilinogen 0.2, Urine Leukocyte Esterase NEGATIVE, Urine RBC (Auto) NEGATIVE, Urine RBC RARE, Urine WBC NONE, Urine Crystals NONE, Urine Bacteria NEGATIVE, Urine Casts NONE, Urine Mucus NEGATIVE, Urine Culture Indicated NO 06/01/22 11:05: White Blood Count 19.8H, Red Blood Count 4.06L, Hemoglobin 11.7L, Hematocrit 35L , Mean Corpuscular Volume 86, Mean Corpuscular Hemoglobin 29, Mean Corpuscular Hemoglobin Concent 34, Red Cell Distribution Width 14.3, Platelet Count 223, Mean Platelet Volume 11.1, Sodium Level 127L, Potassium Level 4.6, Chloride Level 90L, Carbon Dioxide Level 16L, Anion Gap 21H, Blood Urea Nitrogen 22H, Cr eatinine 3.37H, Estimat Glomerular Filtration Rate 19, BUN/Creatinine Ratio 7, Glucose Level 1145*H, Calcium Level 8.8, Phosphorus Level 4.2, Magnesium Level 2.5H, Total Creatine Kinase 254H, Beta-Hydroxybutyrate (Chem panel) 0.61H 06/01/22 13:00: Sodium Level 130L, Potassium Level 4.4, Chloride Level 95L, Carbon Dioxide Level 20L, Anion Gap 15H, Blood Urea Nitrogen 21H, Creatinine 3.05H, Estimat Glomerular Filtration Rate 21, BUN/Creatinine Ratio 7, Glucose Level 912*H, Calcium Level 8.3L 06/01/22 15:20: Imaging 2 views of right hip and AP pelvis reviewed from PACS and demonstrated comminuted right intertrochanteric femur fracture Assessment and Plan Assessment Right intertrochanteric femur fracture Problem List Right intertrochanteric femur fracture Plan I have recommended reduction and fixation of the fracture. Currently on add-on list for tomorrow and will proceed if patient is medically readyt. Final Diagonsis Right intertrochanteric femur fracture Level of the visit: Level 3 (preop global) SACHIN CLAY MD Jun 01, 2022 15:42
[2022-06-01 15:53] LABS: POTASSIUM 4.3 MMOL/L (3.6-5.0)
[2022-06-01 15:54] LABS: CALCIUM 8.5 MG/DL (8.5-10.1)
[2022-06-01 15:58] LABS: CREATININE SERUM 2.87 MG/DL (0.60-1.30)
[2022-06-01 19:05] LABS: POTASSIUM 4.4 MMOL/L (3.6-5.0)
[2022-06-01 19:07] LABS: CALCIUM 8.3 MG/DL (8.5-10.1)
[2022-06-01 19:11] LABS: CREATININE SERUM 2.71 MG/DL (0.60-1.30)
--- NOTE | 2022-06-01 19:55 | History & Physical-Hospitalist ---
History of Present Illness HPI/Chief Complaint Mr. Nicholas is a 71-year-old white male who apparently fell in his bathroom earlier today. He was able to crawl to his bedroom and call relatives complaining about significant right hip pain. He was brought to the emergency room where he was noted to have a right intertrochanteric hip fracture. He was confused but surprisingly not comatose despite the fact that his blood sugar was nearly 1300 with no reported past history of diabetes and no record of any diabetic medication. He was not acidotic but did exhibit signs of dehydration. He was oriented to person only and somewhat slow to respond able to answer s imple questions but a poor historian. He denied chest pain shortness of breath only reporting hip pain when he tried to move his right leg. Past medical history is significant for ischemic cardiomyopathy with reported ejection fraction of 30% on echo referenced by Dr. Chandra in 2019. At that time he had evidence for significant peripheral vascular disease with claudication underwent stenting of the right SFA but subsequently has had what appears to be several lower extremity bypass surgeries. These were done elsewhere and he did not think that he had had any stents placed in the last year but again his history is suspect. Date Seen 06/01/22 Time Seen by a Provider: 14:00 Attending Physician [place] PCP Admitting Physician: Dhiraj Guidry MD Attending Physician: Dhiraj Guidry MD Referring Physician Date of Admission Jun 01, 2022 at 09:26 Home Medications & Allergies Home Medications Reviewed patient Home Medication Reconciliation performed by pharmacy medication reconciliations production line technician and/or nursing. Patients Allergies have been reviewed. Allergies Allergies Coded Allergies No Known Drug Allergies ([id number]) Past Sfoswvh-Zhocox-Haaxpb Hx Patient Social History Tobacco Use?: No Smoking Status: Former Smoker Use of E-Cig and/or Vaping dev: Unable to obtain Substance use?: Unable to obtain Alcohol Use?: Unable to obtain Immunizations Up To Date Date of Influenza Vaccine: May 24, 2019 First/Initial COVID19 Vaccinat: YES UNSURE OF DATE. Second COVID19 Vaccination Maxwell: YES UNSURE OF DATE. Tetanus Booster (TDap): Unknown Date of Pneumonia Vaccine: Dec 02, 2016 Seasonal Allergies Seasonal Allergies: No Current Status Advance Directives: Yes Advance Directive Location: Unable to obtain copy Communicates: Verbally Primary Language: Citizen Of [place] Preferred Spoken Language: Citizen Of [place] Is interpretation needed?: No Sensory deficits: Vision impairment, Hearing impairment Implanted or Applied Medical D: None Past Medical History Surgeries: Abdominal, Cardiac, Coronary Stent Asthma, COPD Currently Using CPAP: No Currently Using BIPAP: No Atrial Fibrillation, Cardiomyopathy, Coronary Artery Disease, Hypertension, Peripheral Vascular Sexually Transmitted Disease: No HIV/AIDS: No Benign Prostatic Hyperpl, Kidney Infection, Prostate Problems, Renal Failure Gastrointestinal Bleed, Irritable Bowel Back Injury Diabetes, Insulin dep Loss of Vision: Bilateral Hearing Impairment: Denies Anxiety, PTSD Blood Disorders: No Adverse Reaction/Blood Tranf: No 1. IBS mixed 2. Back pain 3. COPD 4. DM Type 2 5. HTN 6. PTSD 7. Panic Attacks 8. Kidney Infections bilaterally 9. BPH Family Medical History Reviewed Nursing Family Hx Asthma Cardiovascular disease Completed stroke Dementia Hypertension Myocardial infarction Respiratory disorder Visual disorder No Pertinent Family Hx Review of Systems Constitutional: see HPI Physical Exam Physical Exam Vital Signs Vital Signs - First Documented 06/01/22 06/01/22 08:11 10:44 Temp 36.7 Pulse 91 Resp 16 B/P (MAP) 136/121 (126) Pulse Ox 97 O2 Delivery Room Air FiO2 21 Capillary Refill : Less Than 3 Seconds Height, Weight, BMI Height: 5'8.00" Weight: 192lbs. 0.0oz. 87.911921jx; 31.58 BMI Method:Stated General Appearance: No Apparent Distress, Chronically ill HEENT: Pale Conjunctivae (L), Pale Conjunctivae (R) Neck: Full Range of Motion, Normal Inspection, Non Tender Respiratory: Chest Non Tender, Lungs Clear, Normal Breath Sounds, No Accessory Muscle Use, No Respiratory Distress Cardiovascular: Regular Rate, Rhythm, No Edema, No Gallop, No JVD, No Murmur Gastrointestinal: Normal Bowel Sounds, No Organomegaly, No Pulsatile Mass, Non Tender, Soft Extremity: Swelling (External rotation and foreshortening of the right leg extremities are warm peripheral pulses were not apparent. No ulceration noted. No significant bruising minimal swelling of the right thigh and groin incisions and popliteal incisions well-healed her text) Neurologic/Psychiatric: Sensory Deficit (Involving the feet) Results Results/Procedures Labs Laboratory Tests 06/01/22 08:20 06/01/22 11:05 06/01/22 13:00 06/01/22 15:20 06/01/22 18:50 Patient resulted labs reviewed. Assessment/Plan Admission Diagnosis 1. Right intertrochanteric hip fracture Dr. Jones has been consulted will hold Brilinta continue aspirin with cardiology consultation with Dr. Centeno as well continue beta-[place] therapy and high-dose statin therapy but hold lisinopril considering acute kidney injury. 2. Severe hyperglycemia compatible with type 2 diabetes with hyperosmolar state secondary to dehydration and acute exacerbation of chronic kidney disease IV fluids have been initiated as well as an insulin drip per protocol. 3. Severe peripheral vascular disease 4. Ischemic cardiomyopathy currently heart failure compensated Dr. Centeno has been consulted and the case has been discussed with him. Admission Status: Inpatient Order (span 2 midnights) Reason for Inpatient Admission: See above Critical Care Critically Ill Patient DHIRAJ GUIDRY MD Jun 01, 2022 19:55
[2022-06-01] MEDS: GABAPENTIN 600 MG (NEURONTIN) TAB PO SCH (20:01)
[2022-06-01] MEDS: RT-ALBUTEROL SULF 2.5 MG/3 ML PRE-MIX VIAL INH SCH (20:48)
[2022-06-02] MEDS: 1/2 NS IV SOLUTION 1,000 ML IV SCH ×6 (00:18→21:54)
[2022-06-02] MEDS: POTASSIUM CL 10MEQ/50ML IVPB 50 ML IV SCH ×4 (01:12→19:38)
[2022-06-02 02:22] LABS: POTASSIUM 4.1 MMOL/L (3.6-5.0)
[2022-06-02 02:24] LABS: CALCIUM 8.1 MG/DL (8.5-10.1)
[2022-06-02 02:28] LABS: CREATININE SERUM 2.4 MG/DL (0.60-1.30)
[2022-06-02] MEDS: D5 1/2 NS 1000 ML IV SOLUTION 1,000 ML IV SCH ×3 (02:40→20:28)
[2022-06-02] MEDS: NS IV 1000 ML 1,000 ML IV SCH ×4 (05:25→21:54)
[2022-06-02] MEDS: RT-ALBUTEROL SULF 2.5 MG/3 ML PRE-MIX VIAL INH SCH ×2 (07:41→21:04)
[2022-06-02] MEDS ORDERED: SEMA0.25 SQ (07:47)
[2022-06-02] MEDS ORDERED: MTP25TSR PO ×2 (07:47→12:26)
[2022-06-02] MEDS ORDERED: INSU100I29 SQ (07:47)
[2022-06-02] MEDS: ASPIRIN E.C. 81 MG (ECOTRIN) TAB PO SCH (08:04)
[2022-06-02] MEDS: PANTOPRAZOLE 40 MG (PROTONIX) TAB PO SCH (08:04)
[2022-06-02] MEDS: meTOprolol SUCCINATE 100 MG (TOPROL XL) TAB PO SCH (08:05)
[2022-06-02 08:45] LABS: POTASSIUM 4.5 MMOL/L (3.6-5.0)
[2022-06-02 08:46] LABS: CALCIUM 7.8 MG/DL (8.5-10.1)
[2022-06-02 08:51] LABS: CREATININE SERUM 2.05 MG/DL (0.60-1.30)
[2022-06-02] MEDS ORDERED: ASPIRIN 325 MG (5 GR) TABLET PO SCH (09:00)
--- NOTE | 2022-06-02 09:21 | Cardiology Progress Note ---
Subjective Date Seen by Provider: Jun 02, 2022 Time Seen by Provider: 08:55 Subjective/Events-last exam Patient is in bed, appears slightly confused, unknown baseline. Patient was seen at bedside, laying down comfortably, lethargic. No new complaint. Denied any chest pain Review of Systems General: No Chills, No Night Sweats; Fatigue, Malaise; No Appetite, No Other HEENT: No Head Aches, No Visual Changes, No Eye Pain, No Ear Pain, No Dysphasia, No Sinus Congestion, No Post Nasal Drip, No Sore Throat, No Other Pulmonary: No Dyspnea, No Cough, No Pleuritic Chest Pain, No Other Cardiovascular: No: Chest Pain, Palpitations, Orthopnea, Paroxysmal Noc. Dyspnea, Edema, Lt Headedness, Other Objective-Cardiology Exam Last Set of Vital Signs Vital Signs 06/02/22 06/02/22 04:01 08:00 Temp 36.8 Pulse 93 Resp 25 B/P (MAP) 145/66 (92) Pulse Ox 95 O2 Delivery Nasal Cannula O2 Flow Rate 1.00 FiO2 95 I&O Intake and Output 06/02/22 00:00 Intake Total 4360 ml Output Total 815 ml Balance 3545 ml Intake Oral 60 ml IV Total 4300 ml Output Urine Total 815 ml Daily Weight Change Unsure General: Alert, Cooperative, No Acute Distress HEENT: Atraumatic Lungs: Clear to Auscultation Heart: Regular Rate, Normal S1, Normal S2 Abdomen: Soft Extremities: No Clubbing Skin: No Rashes, No Significant Lesion Neuro: Normal Speech Psych/Mental Status: Mood NL Results Lab Laboratory Tests 06/01/22 11:05 06/01/22 13:00 06/01/22 15:20 06/01/22 18:50 06/02/22 01:54 06/02/22 08:18 A/P-Cardiology Admission Diagnosis Right hip fx PVD CAD CHF Assessment/Plan Right hip fracture, s/p fall at home, planning for surgery with Dr. Jones later today Peripheral arterial disease, extensive disease, patient had multiple intervention in [address] Chandra using atherectomy and 2 overlapping stent in the left SFA 5 x 150 and 6 x 150 and 6 x 20 then had intervention in the right SFA using 2 Supera stents 5 x 120, has been having increasing claudication, returned for angiogram in October 2019 which showed total occlusion of both SFA, failed intervention, Referred for evaluation for vascular surgery, has seen Dr. Milian in [facility] and underwent aortobifem on 08/20/20, had multiple procedures done by Dr. Milian, on the left leg done in November and on the right leg had it done earlier in April and has a follow-up appointment. Coronary artery disease, extensive disease. Had a cardiac catheterization done with Dr. Chandra in June 2018 which showed chronic total occlusion of the proximal right coronary artery reconstructed by collaterals, has severe stenosis in the mid to distal LAD and had 2 stents deployed using Patricia 2.5 x 38 and 2.5 x 15 expanded to 3.0. FFR to OM1 that has moderate stenosis was 0.84 and no intervention was done at that time. Cardiac stress test done in [facility] in June 2020 which reported as medium-size moderate intensity inferior and distal inferolateral wall defect with ischemia, stress score is 6, SDS 6, patient is asymptomatic, probably ischemic segment is due to the occluded right coronary artery Congestive heart failure, chronic left ventricular systolic dysfunction, ischemic cardiomyopathy, last echocardiogram done in November 2018 reported to have ejection fraction 45-50 percent, compensated ischemic cardiomyopathy, planning to repeat 2D echocardiogram Sinus node dysfunction. Multiple sinus pauses occurred at night while asleep. Asymptomatic. No history of syncope. Continue to monitor DM, Severe hyperglycemia compatible with type 2 diabetes with hyperosmolar state secondary to dehydration and acute exacerbation of chronic kidney disease IV fluids have been initiated as well as an insulin drip per protocol. Managed by medical team Hypertension, continue to monitor blood pressure Hyperlipidemia, monitored as outpatient History of GI bleed History of right foot drop Moderate carotid stenosis on the left, mild disease on the right, ultrasound done in October 2020. Continue to monitor Supervisory-Addendum Brief Supervisory Addendum Participated in pt care: history, MDM, physical Personally performed: exam, history, MDM Care discussed with: PA Results interpretation: Verified all documentation Notes: Patient was seen and evaluated with Brian, examination performed, management plan was discussed, agree with the current scribed note, I made few changes to the note using Italic font Patient was seen at bedside, laying down comfortably, denied any chest pain or shortness of breath. Review of his telemetry strips showed multiple pauses overnight, he was asymptomatic. No history of syncope Continue to monitor at this time He is scheduled for hip surgery today with Dr. Jones. BRIAN MELO Jun 02, 2022 09:21 LINDA HASSAN MD Jun 02, 2022 10:06
--- NOTE | 2022-06-02 11:43 | Progress Note ---
ANTHONY IBANEZ 06/02/22 1143: Subjective Subjective/Events-last exam Salomon Nicholas, 71 yo M, admitted for right hip fracture, hyperglycemia, DKA, ALAN, and hyperkalemia. Pt brought to [facility] ED after a fall in his home. Today pt is alert but appears moderately disoriented. At times displaying no clear or linear thought to question responses. Complains that his right leg has been hurting since arrival but is unable to provide descriptors of pain quality or severity. Notes his stomach is hurting and that he his having some chest pain and shortness of breath. Dr. Saravia is seeing him this morning for cardiology consult. Reduction and fixation of right hip with Dr. Jones. Review of Systems Musculoskeletal: leg pain (right hip fracture) Neurological: Confusion Focused Exam Capillary Refill: Less Than 3 Seconds Peripheral Pulses: 4+ Radial Pulses (R), 4+ Radial Pulses (L) Skin: warm/dry, cool, ecchymosis Objective Exam Last Set of Vital Signs Vital Signs Date Time Temp Pulse Resp B/P (MAP) Pulse Ox O2 Delivery O2 Flow Rate FiO2 06/02/22 11:00 96 18 148/80 (102) 96 Nasal Cannula 1.00 06/02/22 08:00 95 06/02/22 04:01 36.8 Capillary Refill : Less Than 3 Seconds I&O Intake and Output 06/02/22 00:00 Intake Total 4360 ml Output Total 815 ml Balance 3545 ml Intake Oral 60 ml IV Total 4300 ml Output Urine Total 815 ml Daily Weight Change Unsure General: Alert, No Acute Distress HEENT: Atraumatic, Other (Eye closed during entire visit ) Neck: Supple, No JVD Lungs: Clear to Auscultation Heart: Regular Rate, No Murmurs Abdomen: Normal Bowel Sounds, No Tenderness Extremities: No Cyanosis, No Edema, Normal Pulses Skin: No Significant Lesion Neuro: Other (confusion) Psych/Mental Status: Other (Pt was moderately disoriented. Able to answer some questions correctly and others not.) Results/Procedures Lab Laboratory Tests 06/01/22 13:00: Sodium Level 130L, Potassium Level 4.4, Chloride Level 95L, Carbon Dioxide Level 20L, Anion Gap 15H, Blood Urea Nitrogen 21H, Creatinine 3.05H, Estimat Glomerular Filtration Rate 21, BUN/Creatinine Ratio 7, Glucose Level 912*H, Selvin cium Level 8.3L 06/01/22 15:20: Sodium Level 134L, Potassium Level 4.3, Chloride Level 99, Carbon Dioxide Level 22, Anion Gap 13, Blood Urea Nitrogen 21H, Creatinine 2.87H, Estimat Glomerular Filtration Rate 23, BUN/Creatinine Ratio 7, Glucose Level 794*H, Calcium Level 8.5, Triglycerides Level 201H, Cholesterol Level 73, LDL Cholesterol Direct 13, VLDL Cholesterol 40, HDL Cholesterol 28L 06/01/22 16:27: Glucometer 594*H 06/01/22 17:26: Glucometer 537*H 06/01/22 18:25: Glucometer 521*H 06/01/22 18:50: Sodium Level 133L, Potassium Level 4.4, Chloride Level 100, Carbon Dioxide Level 22, Anion Gap 11, Blood Urea Nitrogen 20H, Creatinine 2.71H, Estimat Glomerular Filtration Rate 24, BUN/Creatinine Ratio 7, Glucose Level 557*H, Calcium Level 8.3L 06/01/22 19:06: Glucometer 469*H 06/01/22 20:16: Glucometer 445*H 06/01/22 21:35: Glucometer 402*H 06/01/22 22:28: Glucometer 401*H 06/01/22 23:46: Glucometer 369H 06/02/22 00:40: Glucometer 328H 06/02/22 01:47: Glucometer 266H 06/02/22 01:54: Sodium Level 135, Potassium Level 4.1, Chloride Level 102, Carbon Dioxide Level 23, Anion Gap 10, Blood Urea Nitrogen 20H, Creatinine 2.40H, Estimat Glomerular Filtration Rate 28, BUN/Creatinine Ratio 8, Glucose Level 294H, Calcium Level 8.1L 06/02/22 02:37: Glucometer 221H 06/02/22 03:37: Glucometer 229H 06/02/22 04:35: Glucometer 237H 06/02/22 05:37: Glucometer 207H 06/02/22 06:34: Glucometer 166H 06/02/22 07:36: Glucometer 149H 06/02/22 08:18: Sodium Level 132L, Potassium Level 4.5, Chloride Level 104, Carbon Dioxide Level 22, Anion Gap 6, Blood Urea Nitrogen 19H, Creatinine 2.05H, Estimat Glomerular Filtration Rate 34, BUN/Creatinine Ratio 9, Glucose Level 161H, Calcium Level 7.8L, Beta-Hydroxybutyrate (Chem panel) 0.07 06/02/22 08:29: Glucometer 165H 06/02/22 10:00: Glucometer 186H Microbiology 06/01/22 MRSA Screen - Final, Complete MRSA not isolated Radiology Chest x-ray: Impression: Mild blunting the left lateral aspect which may relate to soft tissue overlap, small effusion, infiltrate, and/or atelectasis. Hip/pelvis x-ray: Impression: Displaced intertrochanteric right hip fracture. Head CT: Impression: . No identified acute intracranial abnormality. Nonspecific complete opacification in the right sphenoid sinus which is also present on January 27, 2020. Assessment/Plan Assessment/Plan Admission Dx Right hip fracture, Hyperglycemia, DKA, ALAN, Hyperkalemia, AMS Admission Status: Inpatient Order (span 2 midnights) Reason for Inpatient Admission: Surgery for right hip fracture Assessment & Plan 1) Right hip fracture: Dr. Jones consulted for reduction and fixation. Dr. Saravia consulted for cardiology clearance for surgery. 2) Hyperglycemia: Continue insulin drip and continuous glucose monitoring 3) DKA: Continue insulin drip and continuous glucose monitoring. Consider recheck of beta hydroxybutyrate 4) ALAN: Continue IV saline and monitor for dehydration 5) Hyperkalemia: Lab was 6.0 on ED arrival. Has since been under 4.6. Consider rechecking CMP. 6) Altered Mental Status: Monitor for pain control, hyperglycemia, infection JOHN VILLALPANDO MD 06/02/22 1437: Objective Exam General: Alert, No Acute Distress Lungs: Clear to Auscultation Heart: Regular Rate, No Murmurs Abdomen: Normal Bowel Sounds, No Tenderness Extremities: No Cyanosis, No Edema Neuro: Other (alert, oriented to self and location) Psych/Mental Status: Other (speech difficult to understand, changing topics quickly) Assessment/Plan Assessment/Plan (1) Diabetes mellitus, type 2 Status: Chronic (2) BPH (benign prostatic hyperplasia) Status: Chronic (3) COPD (chronic obstructive pulmonary disease) Status: Chronic (4) Acute kidney injury superimposed on chronic kidney disease Status: Acute (5) Peripheral vascular disease Status: Chronic (6) Coronary artery disease Status: Chronic (7) Delirium due to general medical condition Status: Acute (8) Fall on same level Status: Acute (9) DKA, type 2 Status: Acute Qualifiers: Qualified Codes: E11.10 - Type 2 diabetes mellitus with ketoacidosis without coma (10) Hyperkalemia Status: Acute (11) Primary hypertension Status: Chronic (12) Mixed hyperlipidemia Status: Chronic (13) Hip fracture, right Status: Acute Qualifiers: Qualified Codes: S72.001A - Fracture of unspecified part of neck of right femur, initial encounter for closed fracture (14) Ischemic cardiomyopathy Status: Chronic (15) Chronic combined systolic and diastolic congestive heart failure Status: Chronic (16) Coronary artery disease without angina pectoris Status: Chronic Supervisory-Addendum Brief Verification & Attestation Participated in pt care: history, MDM, physical Personally performed: exam, history, MDM, supervision of care Care discussed with: Medical Student Procedures: n/a I personally saw and examined patient, see my physical exam for my findings. I directed the plan of care. DKA vs HHNK resolved with insulin drip overnight, will transition to long acting and mealtime once diet resumed, presumably post- op. Appreciate Cardiology recommendations for pre-op. ANTHONY IBANEZ Jun 02, 2022 11:43 JOHN VILLALPANDO MD Jun 02, 2022 14:37
--- NOTE | 2022-06-02 11:51 | Tele-ICU Progress Note ---
Subjective Date Seen by a Provider: Jun 02, 2022 Time Seen by a Provider: 11:50 Subjective/Events-last exam (Tele-ICU Physician , Progress Note ) Available chart/ vitals / labs / Images reviewed Video assessment done using teleICU camera, rest of exam as per RN Discussed with RN Events overnight : Afebrile hemodynamically stable Respiratory - 1-2 I/O = Drips: Pressors- no Consultants: Hospital course: (06/01) 71 y M found at home on floor after fall c/o right hip and leg pain . patient with noted right hip fx, ? DKA, hyperkalemia , hyponatremia and leukocytosis 06/02 - closed AG A/P DKA / DM - gap closed , cont insulin gtt since NPO and might need SX - change to long actin insulin if Sx postponed ALAN/CKD - improved , follow H/o CHF, CAD , mild to moderate AR - compensated - EF 45% on 2019 - cards follow Right intertrochanteric femur fracture - plans for ORIF Nutrition - to be decided latter Lines : periph , (Central Line Necessity Reviewed) Santiago: + OG: Nutrition: Analgesia: Anxiety/ delirium VTE Prophylaxis: scd Stress Ulcer Prophylaxis: /hep sq Plans in collaboration with bedside consultants and IM MDs. Discussed with RN to reach out if any questions or concerns A total of 33 minutes of critical care time was devoted to this patient today, required to treat and/or prevent further deterioration of critical care condition ( as above ) . Sepsis Event Evaluation Height, Weight, BMI Height: 5'8.00" Weight: 192lbs. 0.0oz. 87.264392xg; 32.21 BMI Method:Stated Exam Exam Patient acknowledged, consented, and participated in this virtual visit which was conducted using real time audio/video Vital Signs Date Time Temp Pulse Resp B/P (MAP) Pulse Ox O2 Delivery O2 Flow Rate FiO2 06/02/22 11:00 96 18 148/80 (102) 96 Nasal Cannula 1.00 06/02/22 10:00 51 18 173/82 (112) 94 Nasal Cannula 1.00 06/02/22 08:00 93 25 145/66 (92) 95 Nasal Cannula 1.00 06/02/22 08:00 Nasal Cannula 2.00 95 06/02/22 07:41 96 Nasal Cannula 2.00 97 06/02/22 07:34 92 06/02/22 07:00 92 134/65 (88) 92 Nasal Cannula 1.00 06/02/22 06:00 93 19 133/63 (84) 95 Nasal Cannula 1.00 06/02/22 05:00 93 142/71 (86) 92 Nasal Cannula 1.00 06/02/22 04:01 36.8 06/02/22 04:00 96 138/83 (102) 92 Nasal Cannula 1.00 06/02/22 04:00 Nasal Cannula 1.00 95 06/02/22 03:00 96 160/72 (85) 92 Nasal Cannula 1.00 06/02/22 02:00 92 149/70 (120) 90 Nasal Cannula 1.00 06/02/22 01:00 90 15 152/66 (83) 93 Nasal Cannula 1.00 06/02/22 01:00 90 06/02/22 00:30 89 25 133/70 (84) 93 Nasal Cannula 1.00 06/02/22 00:01 36.9 06/02/22 00:01 Nasal Cannula 1.00 95 06/02/22 00:00 85 106/66 (87) 94 Nasal Cannula 1.00 06/01/22 23:00 86 117/66 (92) 92 Nasal Cannula 1.00 06/01/22 22:00 85 146/69 (98) 91 Nasal Cannula 1.00 06/01/22 21:00 79 15 141/75 (123) 99 Nasal Cannula 1.00 06/01/22 20:48 96 Nasal Cannula 1.00 06/01/22 20:37 82 9 94 Nasal Cannula 1.00 06/01/22 20:01 36.8 06/01/22 20:00 Nasal Cannula 1.00 94 06/01/22 20:00 80 19 140/86 (98) 89 Room Air 06/01/22 19:00 79 15 151/69 (91) Room Air 06/01/22 19:00 79 06/01/22 18:00 80 14 151/66 (94) 93 Room Air 06/01/22 17:00 78 17 141/72 (95) 93 Room Air 06/01/22 16:00 Room Air 06/01/22 16:00 77 20 114/86 (95) 93 Room Air 06/01/22 15:00 78 123/80 (94) Room Air 06/01/22 14:00 78 15 114/54 (74) 93 Room Air 06/01/22 13:00 84 13 128/66 (86) 97 Room Air 06/01/22 12:42 85 06/01/22 12:00 Room Air 06/01/22 12:00 85 18 124/100 (108) 96 Room Air I & O 06/02/22 07:00 Intake Total 7110 ml Output Total 1095 ml Balance 6015 ml Height & Weight Height: 5'8.00" Weight: 192lbs. 0.0oz. 87.501279mz; 32.21 BMI Method:Stated General Appearance: No Apparent Distress, Chronically ill HEENT: Pale Conjunctivae (L), Pale Conjunctivae (R) Neck: Full Range of Motion, Normal Inspection, Non Tender Respiratory: Chest Non Tender, Lungs Clear, Normal Breath Sounds, No Accessory Muscle Use, No Respiratory Distress Cardiovascular: Regular Rate, Rhythm, No Edema, No Gallop, No JVD, No Murmur Capillary Refill: Less Than 3 Seconds Extremity: Swelling (External rotation and foreshortening of the right leg extremities are warm peripheral pulses were not apparent. No ulceration noted. No significant bruising minimal swelling of the right thigh and groin incisions and popliteal incisions well-healed her text) Neurologic/Psychiatric: Sensory Deficit (Involving the feet) Results Lab Laboratory Tests 06/01/22 08:20 06/01/22 11:05 06/01/22 13:00 06/01/22 15:20 06/01/22 18:50 06/02/22 01:54 06/02/22 08:18 Assessment/Plan Assessment/Plan 1 SALIMA CHANG MD Jun 02, 2022 11:51
[2022-06-02] MEDS ORDERED: ceFAZolin INJECTION 2,000 MG in NS (IVPB) 50 ML IV NR (12:00)
[2022-06-02] MEDS ORDERED: ceFAZolin INJECTION 1,000 MG VIAL IV NR (12:00)
[2022-06-02] MEDS ORDERED: PARO30TA3 PO (12:26)
[2022-06-02] MEDS ORDERED: CHOL10007 PO (12:26)
[2022-06-02] MEDS ORDERED: AMLO-250 PO (12:26)
[2022-06-02 12:31] LABS: POTASSIUM 4.2 MMOL/L (3.6-5.0)
[2022-06-02 12:32] LABS: CALCIUM 7.6 MG/DL (8.5-10.1)
[2022-06-02 12:36] LABS: CREATININE SERUM 1.91 MG/DL (0.60-1.30)
[2022-06-02] MEDS: D5 NS 1000 ML IV SOLUTION 1,000 ML IV SCH ×3 (13:54→20:30)
[2022-06-02] MEDS ORDERED: inSUlin (REGULAR) HUMAN 1 UNIT/0.01 ML (CHARGE PER UNIT) IV ONE (20:00)
[2022-06-02 20:28] LABS: CALCIUM 7.6 MG/DL (8.5-10.1); CREATININE SERUM 1.7 MG/DL (0.60-1.30); POTASSIUM 4.2 MMOL/L (3.6-5.0)
[2022-06-02] MEDS: ONDANSETRON 4 MG/2 ML (SDV) Z0FRAN IVP PRN (21:58)
[2022-06-02] MEDS: fentaNYL INJ 100 MCG/2 ML AMP IVP PRN (21:59)
[2022-06-02] MEDS: GABAPENTIN 600 MG (NEURONTIN) TAB PO SCH (23:56)
[2022-06-03] VITALS (7 sets, daily range): BP systolic 114–179; BP diastolic 61–76
[2022-06-03] MEDS: 1/2 NS IV SOLUTION 1,000 ML IV SCH ×4 (01:59→13:46)
[2022-06-03] MEDS: D5 NS 1000 ML IV SOLUTION 1,000 ML IV SCH ×2 (03:51→10:23)
[2022-06-03] MEDS: NS IV 1000 ML 1,000 ML IV SCH ×4 (04:02→11:48)
[2022-06-03] MEDS ORDERED: fentaNYL INJ 100 MCG/2 ML AMP ONE ×2 (07:21→08:30)
[2022-06-03] MEDS: ceFAZolin INJECTION 2,000 MG in NS (IVPB) 50 ML IV NR ×2 (07:45→10:24)
[2022-06-03] MEDS ORDERED: ceFAZolin INJECTION 2,000 MG ONE (07:47)
[2022-06-03] MEDS ORDERED: ceFAZolin INJECTION 1,000 MG VIAL IV ONE (08:15)
[2022-06-03] MEDS ORDERED: NS IV 500 ML 500 ML IV PRN (08:15)
[2022-06-03] MEDS: RT-ALBUTEROL SULF 2.5 MG/3 ML PRE-MIX VIAL INH SCH ×2 (08:21→19:00)
[2022-06-03] MEDS ORDERED: meTOprolol 5 MG/5 ML (LOPRESSOR) VIAL ONE (08:31)
[2022-06-03] MEDS ORDERED: proPOfol 200 MG/20 ML (DIPRIVAN) VIAL IV ONE (08:31)
[2022-06-03] MEDS ORDERED: ONDANSETRON 4 MG/2 ML (SDV) Z0FRAN ONE (09:04)
[2022-06-03] MEDS ORDERED: SEVOFLURANE (ULTANE) 15 ML INHAL SOLN ONE (09:04)
[2022-06-03] MEDS ORDERED: fentaNYL INJ 100 MCG/2 ML AMP IVP ONE (09:30)
[2022-06-03] MEDS ORDERED: morphine INJ 10 MG/ML 1ML (SYR OR VIAL) IVP ONE (09:30)
[2022-06-03] MEDS ORDERED: ONDANSETRON 4 MG/2 ML (SDV) Z0FRAN IVP PRN (09:30)
[2022-06-03] MEDS: ASPIRIN E.C. 81 MG (ECOTRIN) TAB PO SCH (10:05)
[2022-06-03] MEDS: PANTOPRAZOLE 40 MG (PROTONIX) TAB PO SCH (10:33)
[2022-06-03] MEDS: meTOprolol SUCCINATE 100 MG (TOPROL XL) TAB PO SCH (10:33)
[2022-06-03] MEDS: inSUlin ASPART (NovoLOG) 1 UNIT/0.01 ML (CHARGE PER UNIT) SC SCH ×3 (11:03→20:40)
--- NOTE | 2022-06-03 11:06 | Operative Report - Ortho ---
Operative Report Surgeon (s)/Finance Lecturer (s) Surgeon SACHIN CLAY MD Finance Lecturer n/a Pre-Operative Diagnosis Right Intertrochanteric Femur Fracture Post-Operative Diagnosis same Operative Report Date of Procedure: Jun 03, 2022 Name of Procedure Performed: Intramedullary Nailing of Right Intertrochanteric Femur Fracture Description & Findings After obtaining informed consent and marking the patient in the preoperative holding area, the patient was administered IV antibiotics and taken to the operating room. Anesthesia was induced. Patient was transferred to the fracture table. Surgical timeout was taken. The right lower extremity was placed in the traction spar and the left was placed in the well leg martinez. The right lower extremity was prepped and draped in the usual sterile fashion. Incision was made just proximal to the greater trochanter. Blunt dissection was performed down to the tip of the trochanter. A guide wire was placed through a trochanteric entry point. Position of the wire was confirmed using C-arm. An entry reamer was then placed over the guidewire and reamed to the level of the lesser trochanter. A trochanteric gamma nail with a 125 degree neck angle was selected and assembled on the back table. Nail was inserted through the trochanteric entry point but was not able to be seated by hand. Ball tip guide wire was inserted and nail was removed. Canal was reamed to 13 mm. Nail was inserted over the guide wire and position of the nail was confirmed using C-arm. Ball tip guide wire was removed. A guide wire was placed for the cephalomedullary screw. Version of the wire was obtained on the lateral. Measurement was taken and the reamer was set to 100 mm. Reamer was used over the guidewire and then the cephalomedullary screw was placed. Position of the cephalomedullary screw was confirmed on C-arm. Set screw was then tightened onto the cephalomedullary screw and then backed off 1/4 turn. Attention was then turned to the distal screw and using the provided guides, a 37.5 mm screw was placed through the static portion of the distal slot. Final C arm images were obtained, demonstrated appropriate placement of hardware with adequate reduction, and were transferred to PACS. Incision sites were irrigated with normal saline. Closed subcutaneously with 2- 0 vicryl and skin was closed with candice. Dressed with xeroform, 4x4s, ABD, and tape. Patient tolerated the procedure well and was stable to the recovery room. Anesthesia Type General Estimated Blood Loss 200 ml Specimen(s) collected/removed None SACHIN CLAY MD Jun 03, 2022 11:06
[2022-06-03 11:24] LABS: HEMATOCRIT 29 % (40-54); HEMOGLOBIN 9.4 g/dL (13.3-17.7); MEAN CORPUSCULAR HEMOGLOBIN 29 pg (25-34); MEAN CORPUSCULAR HGB CONC 32 g/dL (32-36); MEAN CORPUSCULAR VOLUME 90 fL (80-99); MEAN PLATELET VOLUME 10.3 fL (9.0-12.2); PLATELET COUNT 213 10^3/uL (130-400); WHITE BLOOD COUNT 15.9 10^3/uL (4.3-11.0)
[2022-06-03 11:41] LABS: POTASSIUM 4.3 MMOL/L (3.6-5.0)
[2022-06-03 11:42] LABS: CALCIUM 7.2 MG/DL (8.5-10.1)
[2022-06-03 11:46] LABS: CREATININE SERUM 1.61 MG/DL (0.60-1.30)
--- NOTE | 2022-06-03 12:23 | Tele-ICU Progress Note ---
Subjective Date Seen by a Provider: Jun 03, 2022 Time Seen by a Provider: 12:23 Subjective/Events-last exam (Tele-ICU Physician , Progress Note ) Available chart/ vitals / labs / Images reviewed Video assessment done using teleICU camera, rest of exam as per RN Discussed with RN Events overnight : Afebrile hemodynamically stable Respiratory - 1-2 I/O = Drips: Pressors- no Consultants: Hospital course: (06/01) 71 y M found at home on floor after fall c/o right hip and leg pain . patient with noted right hip fx, ? DKA, hyperkalemia , hyponatremia and leukocytosis 06/02 - closed AG 06/03- s/p ORIF, off insulin gtt A/P DKA / DM - recovered , changed to long actin insulin ALAN/CKD - improved , follow on minimal IVF H/o CHF, CAD , mild to moderate AR -compensated -ECHO 06/02/22- EF 50% , gr 1 dst dsfn, RVSP 45 mmHg - cards follow Right intertrochanteric femur fracture - s/p ORIF 06/03 Nutrition - to be decided latter Lines : periph , (Central Line Necessity Reviewed) Santiago: + OG: Nutrition: po Analgesia: Anxiety/ delirium VTE Prophylaxis: scd-/hep sq Stress Ulcer Prophylaxis: Plans in collaboration with bedside consultants and IM MDs. Discussed with RN to reach out if any questions or concerns A total of 22 minutes of critical care time was devoted to this patient today, required to treat and/or prevent further deterioration of critical care condition ( as above ) . Sepsis Event Evaluation Height, Weight, BMI Height: 5'8.00" Weight: 192lbs. 0.0oz. 87.499213nv; 33.20 BMI Method:Stated Exam Exam Patient acknowledged, consented, and participated in this virtual visit which w as conducted using real time audio/video Vital Signs Date Time Temp Pulse Resp B/P (MAP) Pulse Ox O2 Delivery O2 Flow Rate FiO2 06/03/22 10:37 93 Nasal Cannula 2.00 06/03/22 10:30 93 Nasal Cannula 3.00 0 06/03/22 10:10 36.8 18 162/74 (103) 93 Nasal Cannula 2.00 06/03/22 10:10 Nasal Cannula 2.00 06/03/22 10:00 18 164/76 (105) 93 Nasal Cannula 2.00 06/03/22 10:00 93 147/75 (99) Nasal Cannula 1.00 06/03/22 09:59 Nasal Cannula 2.00 06/03/22 09:56 OxyMask 2.00 06/03/22 09:52 OxyMask 4.00 06/03/22 09:50 18 179/75 (109) 95 OxyMask 4.00 06/03/22 09:48 OxyMask 6.00 06/03/22 09:44 37.3 06/03/22 09:42 OxyMask 8.00 06/03/22 09:40 18 173/71 (105) 94 OxyMask 8.00 06/03/22 09:30 OxyMask 8.00 06/03/22 09:30 37.4 18 157/66 (96) 92 OxyMask 8.00 06/03/22 09:20 OxyMask 8.00 06/03/22 09:20 16 114/66 (82) 92 OxyMask 8.00 06/03/22 09:14 OxyMask 8.00 06/03/22 09:14 37.4 16 136/61 (86) 92 OxyMask 8.00 06/03/22 07:02 98 06/03/22 06:00 102 19 162/71 (92) 95 Nasal Cannula 1.00 06/03/22 05:00 101 14 154/70 (102) 95 Nasal Cannula 1.00 06/03/22 04:00 99 17 160/70 (103) 98 Nasal Cannula 1.00 06/03/22 04:00 Nasal Cannula 2.00 96 06/03/22 03:58 37.0 06/03/22 03:00 106 21 161/73 (97) 97 Nasal Cannula 1.00 06/03/22 02:00 107 23 166/73 (106) 97 Nasal Cannula 1.00 06/03/22 01:00 99 06/03/22 01:00 111 19 146/73 (100) 91 Nasal Cannula 1.00 06/03/22 00:16 36.7 06/03/22 00:00 110 15 159/71 (100) 96 Nasal Cannula 1.00 06/02/22 23:59 Nasal Cannula 2.00 95 06/02/22 23:00 109 13 151/96 (112) 97 Nasal Cannula 1.00 06/02/22 22:00 108 18 154/68 (88) 97 Nasal Cannula 1.00 06/02/22 21:04 98 Nasal Cannula 2.00 06/02/22 21:00 102 20 180/80 (106) 99 Nasal Cannula 1.00 06/02/22 20:36 102 15 169/74 (111) 97 Nasal Cannula 1.00 06/02/22 20:00 Nasal Cannula 2.00 95 06/02/22 20:00 100 20 174/88 (133) 99 Nasal Cannula 1.00 06/02/22 19:00 99 06/02/22 19:00 99 17 173/69 (109) 98 Nasal Cannula 1.00 06/02/22 18:00 98 18 163/75 (104) 99 Nasal Cannula 1.00 06/02/22 17:00 97 18 163/74 (103) 98 Nasal Cannula 1.00 06/02/22 16:00 97 157/72 (100) 97 Nasal Cannula 1.00 06/02/22 15:29 Nasal Cannula 2.00 95 06/02/22 15:00 97 167/76 (106) 98 Nasal Cannula 1.00 06/02/22 14:00 96 152/74 (100) 93 Nasal Cannula 1.00 06/02/22 13:00 97 144/72 (96) 94 Nasal Cannula 1.00 I & O 06/03/22 07:00 Intake Total 100 ml Output Total 1950 ml Balance -1850 ml Height & Weight Height: 5'8.00" Weight: 192lbs. 0.0oz. 87.027283np; 33.20 BMI Method:Stated General Appearance: No Apparent Distress, Chronically ill HEENT: Pale Conjunctivae (L), Pale Conjunctivae (R) Neck: Full Range of Motion, Normal Inspection, Non Tender Respiratory: Chest Non Tender, Lungs Clear, Normal Breath Sounds, No Accessory Muscle Use, No Respiratory Distress Cardiovascular: Regular Rate, Rhythm, No Edema, No Gallop, No JVD, No Murmur Capillary Refill: Less Than 3 Seconds Peripheral Pulses: 4+ Radial Pulses (R), 4+ Radial Pulses (L) Extremity: Swelling (External rotation and foreshortening of the right leg extremities are warm peripheral pulses were not apparent. No ulceration noted. No significant bruising minimal swelling of the right thigh and groin incisions and popliteal incisions well-healed her text) Neurologic/Psychiatric: Sensory Deficit (Involving the feet) Results Lab Laboratory Tests 06/01/22 13:00 06/01/22 15:20 06/01/22 18:50 06/02/22 01:54 06/02/22 08:18 06/02/22 12:05 06/02/22 20:06 06/03/22 10:55 Assessment/Plan Assessment/Plan 1 SALIMA CHANG MD Jun 03, 2022 12:23
--- NOTE | 2022-06-03 12:34 | Diagnostic Imaging Report ---
INDICATION: Fluoroscopy for right hip nailing. Fluoroscopy was provided in the OR during right hip ORIF. 2 minutes and 27 seconds of fluoroscopic time was utilized. 4 images were obtained demonstrating intramedullary vasquez and compression screw transfixing the right hip. Alignment is anatomic. IMPRESSION: Fluoroscopy for right hip ORIF. Dictated by: Dictated on workstation # [id number]
--- NOTE | 2022-06-03 12:52 | Progress Note ---
ANTHONY IBANEZ 06/03/22 1252: Subjective Subjective/Events-last exam Pt is a 71 yo M admitted to ICU after a fall with subsequent right hip fracture and hyperglycemia. Mr. Nicholas returns to ICU after having reduction and fixation on his right hip. This afternoon he his much more alert and oriented and is better able to answer questions. He is tired from his procedure but has been able to eat a few bites of his lunch. States he is having right hip pain and also "generalized body pain" but cannot describe it in quality or location. Pt states he originally fell because his home health aide had mopped the floor in his bathroom and he slipped. Pt had no knowledge of having such high blood sugars. Notes he will start monitoring them after he returns home. Review of Systems General: Fatigue Musculoskeletal: leg pain (just had surgery) Objective Exam Last Set of Vital Signs Vital Signs Date Time Temp Pulse Resp B/P (MAP) Pulse Ox O2 Delivery O2 Flow Rate FiO2 06/03/22 12:00 93 Nasal Cannula 3.00 0 06/03/22 10:10 36.8 18 162/74 (103) 06/03/22 10:00 93 Capillary Refill : Less Than 3 SecondsLess Than 3 Seconds I&O Intake and Output 06/03/22 00:00 Intake Total 2750 ml Output Total 1480 ml Balance 1270 ml Intake Oral 0 ml IV Total 2750 ml Output Urine Total 1480 ml General: Alert, Cooperative, No Acute Distress HEENT: PERRLA, EOMI, Mucous Memb Moist/[place] Neck: Supple, No JVD Lungs: Clear to Auscultation, Normal Air Movement Heart: Regular Rate, Normal S1, Normal S2, No Murmurs Abdomen: Normal Bowel Sounds, Soft, No Tenderness Extremities: Normal Pulses Skin: No Rashes, No Breakdown Neuro: Sensation Intact Results/Procedures Lab Laboratory Tests 06/02/22 14:04: Glucometer 158H 06/02/22 16:03: Glucometer 138H 06/02/22 17:52: Glucometer 118H 06/02/22 19:28: Glucometer 106 06/02/22 20:06: Sodium Level 136, Potassium Level 4.2, Chloride Level 106, Carbon Dioxide Level 21, Anion Gap 9, Blood Urea Nitrogen 16, Creatinine 1.70H, Estimat Glomerular Filtration Rate 42, BUN/Creatinine Ratio 9, Glucose Level 120H, Calcium Level 7.6L, Magnesium Level 2.0 06/02/22 20:26: Glucometer 157H 06/02/22 21:43: Glucometer 220H 06/02/22 22:31: Glucometer 230H 06/02/22 23:33: Glucometer 224H 06/03/22 00:33: Glucometer 205H 06/03/22 01:34: Glucometer 231H 06/03/22 02:30: Glucometer 202H 06/03/22 03:35: Glucometer 187H 06/03/22 04:44: Glucometer 173H 06/03/22 05:00: Beta-Hydroxybutyrate (Chem panel) 0.04 06/03/22 05:41: Glucometer 142H 06/03/22 06:34: Glucometer 138H 06/03/22 07:04: Glucometer 122H 06/03/22 09:18: Glucometer 120H 06/03/22 10:30: Glucometer 114H 06/03/22 10:55: White Blood Count 15.9H, Red Blood Count 3.27L, Hemoglobin 9.4L, Hematocrit 29L, Mean Corpuscular Volume 90, Mean Corpuscular Hemoglobin 29, Mean Corpuscular Hemoglobin Concent 32, Red Cell Distribution Width 15.5H, Platelet Count 213, Mean Platelet Volume 10.3, Sodium Level 138, Potassium Level 4.3, Chloride Level 109H, Carbon Dioxide Level 21, Anion Gap 8, Blood Urea Nitrogen 14, Creatinine 1.61H, Estimat Glomerular Filtration Rate 45, BUN/Creatinine Ratio 9, Glucose Level 100, Calcium Level 7.2L 06/03/22 11:18: Glucometer 105 06/03/22 11:56: Glucometer 82 Microbiology 06/01/22 MRSA Screen - Final, Complete MRSA not isolated Radiology Chest x-ray: Impression: Mild blunting the left lateral aspect which may relate to soft tissue overlap, small effusion, infiltrate, and/or atelectasis. Hip/pelvis x-ray: Impression: Displaced intertrochanteric right hip fracture. Head CT: Impression: . No identified acute intracranial abnormality. Nonspecific complete opacification in the right sphenoid sinus which is also present on January 27, 2020. Procedures Intramedullary Nailing of Right Intertrochanteric Femur Fracture on 06/03/22 Assessment/Plan Assessment/Plan Admission Dx Right hip fracture, Hyperglycemia Assessment & Plan (1) Diabetes mellitus, type 2 Status: Chronic Assessment & Plan: D/c insulin drip. Manage diet for diabetic patient. Continue glucose monitoring. (2) BPH (benign prostatic hyperplasia) Status: Chronic (3) COPD (chronic obstructive pulmonary disease) Status: Chronic Assessment & Plan: Remain on nasal canula (4) Acute kidney injury superimposed on chronic kidney disease Status: Acute (5) Peripheral vascular disease Status: Chronic (6) Coronary artery disease Status: Chronic (7) Delirium due to general medical condition Status: Acute (8) Fall on same level Status: Acute (9) DKA, type 2 Status: Acute Qualifiers: Qualified Codes: E11.10 - Type 2 diabetes mellitus with ketoacidosis without coma (10) Hyperkalemia Status: Acute (11) Primary hypertension Status: Chronic (12) Mixed hyperlipidemia Status: Chronic (13) Hip fracture, right Status: Acute Assessment & Plan: Surgery on 06/03. Start physical therapy. Qualifiers: Qualified Codes: S72.001A - Fracture of unspecified part of neck of right femur, initial encounter for closed fracture (14) Ischemic cardiomyopathy Status: Chronic (15) Chronic combined systolic and diastolic congestive heart failure Status: Chronic (16) Coronary artery disease without angina pectoris Status: Chronic KEARA MOORE MD 06/03/22 1536: Objective Exam General: Alert, No Acute Distress Lungs: Clear to Auscultation, Normal Air Movement Heart: Regular Rate, No Murmurs Abdomen: Normal Bowel Sounds, Soft, No Tenderness Extremities: Normal Pulses Supervisory-Addendum Brief Verification & Attestation Participated in pt care: history, MDM, physical Personally performed: exam, history, MDM, supervision of care Care discussed with: Medical Student Procedures: n/a Verification and Attestation of Medical Student E/M Service A medical student performed and documented this service in my presence. I reviewed and verified all information documented by the medical student and made modifications to such information, when appropriate. I personally performed the physical exam and medical decision making. Keara Moore, Jun 03, 2022,15:35 ANTHONY IBANEZ Jun 03, 2022 12:52 KEARA MOORE MD Jun 03, 2022 15:36
--- NOTE | 2022-06-03 13:38 | Physical Therapy Evaluation ---
PT Evaluation-General Medical Diagnosis Admission Date Jun 01, 2022 at 09:26 Medical Diagnosis: right hip fracture/ALAN/DKA Onset Date: Jun 01, 2022 Therapy Diagnosis Therapy Diagnosis: generalized weakness/debility Height/Weight Height (Feet): 5 Height (Inches): 8.00 Weight (Pounds): 192 Weight (Ounces): 0.0 Precautions Precautions/Isolations: Fall Prevention, Standard Precautions Weight Bear Status Right Lower Extremity: Right Weight Bearing/Tolerated Left Lower Extremity: Left Full Weight Bearing Referral Physician: Robert Reason for Referral: Evaluation/Treatment Medical History Pertinent Medical History: Atrial Fib, Alcoholism, CAD, COPD, DM, Heart Failure, HTN, Neuropathy, Renal Insufficiency, Smoking Current History EMS from home secondary to fall and on the floor x 1 day per report. Reviewed History: Yes Social History Home: Apartment Current Living Status: Alone Entry Into Home: Level Entry Prior Prior Level of Function SCALE: Activities may be completed with or without assistive devices. 9-[id number]-[id number] completes the activity by him/herself with no assistance from a helper. 5-Set-up or Clean-up Assistance-helper sets up or cleans up; patient completes activity. [place] assists only prior to or following the activity. 4-Supervision or Touching Assistance-helper provides verbal cues and/or touching/steadying and/or contact guard assistance as patient completes activity. Assistance may be provided throughout the activity or intermittently. 3-Partial/Moderate Assistance-helper does LESS THAN HALF the effort. [place] lifts, holds or supports trunk or limbs, but provides less than half the effort. 2-Substantial/Maximal Assistance-helper does MORE THAN HALF the effort. [place] lifts or holds trunk or limbs and provides more than half the effort. 7-Bwwiaaorl-wzjqdv does ALL the effort. Patient does none of the effort to complete the activity. Or, the assistance of 2 or more helpers is required for the patient to complete the activity. If activity was not attempted, code reason: 7-Patient Refused. 9-Not Applicable-not attempted and the patient did not perform the activity before the current illness, exacerbation or injury. 10-Not Attempted due to Environmental Limitations-(lack of equipment, weather restraints, etc.). 88-Not Attempted due to Medical Conditions or Safety Concerns. unable to determine due to patient is confused and unable to answer and no family present. PT Evaluation-Current Subjective Patient is very lethargic and has been back to room x 2 hours per RN. Not safe for OOB activity. Objective Patient Orientation: Person, Confused Attachments: Oxygen, Santiago Catheter, IV ROM/Strength ROM Lower Extremities bilateral LE WFL Strength Lower Extremities right LE 2/5 grossly/left LE 3-/5 grossly (unable to formally test due to lethargy) Integumentary/Posture Integumentary refer to nursing notes Bladder Incontinence: Santiago Cath Neuromuscular (Tone, Coordination, Reflexes) currently severely diminished Sensory Vision: Unable to Assess Hearing: Functional Transfers Roll Left to Right (QC): 1 (x 2) Gait Does the Patient Walk?: No and Walking Goal IS indicated Treatment bilateral LE AAROM x 12 reps AP, HS, SLR Assessment/Needs 71 y.o. male, will benefit from skilled PT to address functional strength and mobility to improve current LOF. Rehab Potential: Guarded PT Short Term Goals Short Term Goals Time Frame: Jun 14, 2022 Roll Left & Right: 2 Sit to lyin Lying to sitting on side of be: 2 Sit to stand: 2 Chair/pdq-yh-oqhko transfer: 2 Toilet transfer: 2 Walk 10 feet: 2 PT Drywall Stripper Helper Goals Drywall Stripper Helper Goals PT Snf Goals Time Frame: Jun 28, 2022 Roll Left & Right (QC): 3 Sit to Lying (QC): 3 Lying-Sitting on Side/Bed(QC): 3 Sit to Stand (QC): 3 Chair/[id number]-Glfxz Xfer(QC): 3 Toilet Transfer (QC): 3 Walk 10 feet (QC): 3 Walk 50ft with 2 Turns (QC): 3 Walk 150 ft (QC): 3 Walking 10ft on Uneven Surface: 3 PT Plan Problem List Problem List: Activity Tolerance, Functional Strength, Safety, Balance, Gait, Transfer, Bed Mobility Treatment/Plan Treatment Plan: Continue Plan of Care Treatment Plan: Bed Mobility, Education, Functional Activity Michel, Functional Strength, Gait, Safety, Therapeutic Exercise, Transfers Treatment Duration: Jun 28, 2022 Frequency: 11 times per week Estimated Hrs Per Day: .5 hour per day Time/GCodes Time In: 1303 Time Out: 1320 Total Billed Treatment Time: 17 Total Billed Treatment 1 visit EVMod 17 min YONG TODD PT Jun 03, 2022 13:38
[2022-06-03] MEDS: GABAPENTIN 600 MG (NEURONTIN) TAB PO SCH (20:39)
[2022-06-03] MEDS: fentaNYL INJ 100 MCG/2 ML AMP IVP PRN (20:41)
[2022-06-04] MEDS: 1/2 NS IV SOLUTION 1,000 ML IV SCH ×2 (04:02→15:49)
[2022-06-04 04:38] LABS: HEMATOCRIT 25 % (40-54); MEAN CORPUSCULAR HEMOGLOBIN 28 pg (25-34); MEAN CORPUSCULAR HGB CONC 32 g/dL (32-36); MEAN CORPUSCULAR VOLUME 89 fL (80-99); MEAN PLATELET VOLUME 10.4 fL (9.0-12.2); PLATELET COUNT 168 10^3/uL (130-400); WHITE BLOOD COUNT 10.8 10^3/uL (4.3-11.0)
[2022-06-04 04:59] LABS: POTASSIUM 4.3 MMOL/L (3.6-5.0)
[2022-06-04 05:00] LABS: CALCIUM 7.3 MG/DL (8.5-10.1)
[2022-06-04 05:05] LABS: CREATININE SERUM 1.45 MG/DL (0.60-1.30)
[2022-06-04] MEDS: inSUlin ASPART (NovoLOG) 1 UNIT/0.01 ML (CHARGE PER UNIT) SC SCH ×4 (06:25→20:32)
--- NOTE | 2022-06-04 08:19 | Anesthesia-General Post-Op ---
General Patient Condition Mental Status/LOC: Same as Preop Cardiovascular: Satisfactory Nausea/Vomiting: Absent Respiratory: Satisfactory Pain: Controlled Complications: Absent Post Op Complications Complications None Follow Up Care/Instructions Patient Instructions None needed. Anesthesia/Patient Condition Patient Condition Patient is doing well, no complaints, stable vital signs, no apparent adverse anesthesia problems. No complications reported per nursing. D/C home per [facility] Criteria: Yes NUNO WILL CRNA Jun 04, 2022 08:19
[2022-06-04] MEDS: meTOprolol SUCCINATE 100 MG (TOPROL XL) TAB PO SCH (08:25)
[2022-06-04] MEDS: ASPIRIN E.C. 81 MG (ECOTRIN) TAB PO SCH (08:25)
[2022-06-04] MEDS: PANTOPRAZOLE 40 MG (PROTONIX) TAB PO SCH (08:25)
[2022-06-04] MEDS: fentaNYL INJ 100 MCG/2 ML AMP IVP PRN ×2 (08:27→20:18)
--- NOTE | 2022-06-04 09:02 | Progress Note - Ortho ---
Progress Note Subjective Date of Exam 06/04/22 Chief Complaint POD #1 Intramedullary Nailing of Right Intertrochanteric Femur Fracture HPI/Events since last exam conversive this AM, states he wants to go home tomorrow, describes pain as a "2" Review of Systems - Allergies: Coded Allergies: No Known Drug Allergies (Verified , 07/08/18) Home Meds Reported Medications Cholecalciferol (Vitamin D3) (Vitamin D3) 25 Mcg (1000 Unit) Capsule, 25 MCG PO DAILY, CAP 06/02/22 Paroxetine HCl (Paroxetine HCl) 30 Mg Tablet, 30 MG PO DAILY, TAB 06/02/22 Amlodipine Besylate (Amlodipine Besylate) 5 Mg Tablet, 5 MG PO BID, TAB 06/02/22 Metoprolol Succinate (Metoprolol Succinate) 25 Mg Tab.er.24h, 25 MG PO BID, TAB 06/02/22 Semaglutide (Ozempic) 0.25 Mg/0.2 Ml Pen.injctr, 0.25 MG SQ WEEK 06/02/22 Insulin Detemir (Levemir Flextouch) 100 Unit/Ml (3 Ml) Insuln.pen, 30 UNITS SQ BID 06/02/22 Ferrous Sulfate (Ferrous Sulfate) 325 Mg Tablet, 325 MG PO DAILY, TAB 01/30/20 Gabapentin (Neurontin) 300 Mg Capsule, 600 MG PO HS, CAP TAKES 2 (300MG) CAPS 01/30/20 Gabapentin (Neurontin) 300 Mg Capsule, 300 MG PO DAILY, CAP 01/30/20 Potassium Chloride (Potassium Chloride) 10 Meq Tab.er.prt, 10 MEQ PO BID 01/30/20 Multivitamin (Multivitamins) 1 Each Tablet, 1 EACH PO DAILY, TAB 11/07/19 Oxymetazoline HCl (Afrin) 0.05 % Mist, 1 SPRAY NS UD PRN for CONGESTION, EA 11/07/19 Aspirin (Aspirin EC) 81 Mg Tablet.dr, 81 MG PO DAILY, TAB 02/23/19 Furosemide (Furosemide) 20 Mg Tablet, 20 MG PO DAILY, TAB 02/23/19 Prazosin HCl (Prazosin HCl) 5 Mg Capsule, 10 MG PO HS, CAP TAKES 2 (5MG) CAPSULES 02/23/19 Atorvastatin Calcium (Atorvastatin Calcium) 80 Mg Tablet, 80 MG PO DAILY, TAB 12/09/18 Finasteride (Finasteride) 5 Mg Tablet, 5 MG PO DAILY, TAB 12/02/18 Prasugrel HCl (Prasugrel HCl) 10 Mg Tablet, 10 MG PO DAILY, TAB 12/02/18 Discontinued Reported Medications Biotin (Biotin) 1,000 Mcg Tablet, 1000 MCG PO DAILY, TAB 01/30/20 Budesonide/Formoterol Fumarate (Symbicort 160-4.5 Mcg Inhaler) 10.2 Gm Hfa.aer.ad, 2 PUFF IH BID, INHALER 01/30/20 Insulin Determir (Levemir) 1,000 Units/10 Ml Soln, 50 UNITS SQ HS, EA 11/07/19 Ltpvi-B-Frirdlbmczdcx (Beano) 150 Unit Tablet, 150 UNIT PO QID, TAB 11/07/19 Guaifenesin (Mucus Relief) 400 Mg Tablet, 400 MG PO PRN PRN for CONGESTION, TAB 11/07/19 Tramadol HCl (Tramadol HCl) 50 Mg Tablet, 50 MG PO HS PRN for PAIN-MODERATE (5- 7), TAB 11/07/19 Fish Oil/Borage/Flax/Om3,6,9#1 (Ubgtiqlw-Ttgz-Gdvpgw Oil Sftgl) 400 Mg Capsule, 1 CAP PO BID, CAP 02/23/19 Lisinopril (Lisinopril) 10 Mg Tablet, 10 MG PO DAILY, TAB LAST FILLED 08-29-2019 #90 02/23/19 Sucralfate (Sucralfate) 1 Gm Tablet, 1 GM PO ACHS, TAB 02/23/19 Paroxetine HCl (Paroxetine ER) 12.5 Mg Tab.er.24h, 12.5 MG PO DAILY, TAB 02/23/19 Paroxetine HCl (Paroxetine HCl) 37.5 Mg Tab.er.24h, 37.5 MG PO HS, TAB 02/23/19 Acetaminophen (Tylenol Extra Strength) 500 Mg Tablet, 500-1000 MG PO Q6H PRN for PAIN-MILD, TAB 12/09/18 Caffeine (Caffeine) 200 Mg Tablet, 200-400 MG PO BID PRN for DROWSINESS, TAB 12/09/18 Diphenhydramine HCl (Benadryl Allergy) 25 Mg Tablet, 50 MG PO HS PRN for ALLERGIES/ANXIETY, TAB 12/09/18 Bisacodyl (Bisacodyl) 5 Mg Tablet.dr, 10 MG PO DAILY PRN for CONSTIPATION-4TH LINE, TAB 12/09/18 Albuterol Sulfate (Proventil Hfa) 6.7 Gm Hfa.aer.ad, 2 PUFF INH Q6H PRN for SHORTNESS OF BREATH, INHALER 12/02/18 Pantoprazole Sodium (Pantoprazole Sodium) 40 Mg Tablet.dr, 40 MG PO BID, TAB 12/02/18 Umeclidinium [place] (Incruse Ellipta) 62.5 Mcg Blst.w.dev, 1 PUFF INH DAILY, INHALER 07/06/18 Discontinued Scripts Metoprolol Succinate (Metoprolol Succinate) 25 Mg Tab.er.24h, 50 MG PO DAILY, #1 Prov:JOHN VILLALPANDO MD 06/02/22 Ondansetron (Ondansetron Odt) 4 Mg Tab.rapdis, 4 MG PO Q6H PRN for NAUSEA/VOMITING, #20 TAB 0 Refills Prov:ADE COLLINS 10/17/21 Hydrocodone/Acetaminophen (Hydrocodone-Acetamin 7.5-325) 1 Each Tablet, 1 EACH PO Q4H PRN for PAIN-BREAKTHROUGH, #14 TAB 0 Refills Prov:ADE COLLINS 10/17/21 Ondansetron (Ondansetron Odt) 8 Mg Tab.rapdis, 8 MG PO Q6H PRN for NAUSEA/VOMITING, #20 TAB Prov:KIARA CABALLERO INFUSION RN 09/18/21 Ondansetron (Ondansetron Odt) 4 Mg Tab.rapdis, 4 MG PO Q6H PRN for NAUSEA/VOMITING, #8 TAB 0 Refills Prov:ADE COLLINS 08/30/20 Metoprolol Succinate (Metoprolol Succinate) 100 Mg Tab.er.24h, 100 MG PO DAILY@2100, #30 TAB Prov:GENNA DUMONT MD 02/01/20 Objective Exam R Hip: Dressing C/D/I, +DF of ankle, no s/s of DVT Vital Signs Vital Signs Date Time Temp Pulse Resp B/P (MAP) Pulse Ox O2 Delivery O2 Flow Rate FiO2 06/04/22 08:00 80 22 147/66 (93) 98 Nasal Cannula 2.00 06/04/22 07:07 83 06/04/22 07:00 82 21 110/52 (71) 90 Nasal Cannula 2.00 06/04/22 06:00 81 16 128/57 (81) 97 Nasal Cannula 2.00 06/04/22 05:00 85 32 132/75 (93) 98 Nasal Cannula 2.00 06/04/22 04:18 37.1 06/04/22 04:00 96 Nasal Cannula 2.00 0 06/04/22 04:00 78 11 129/50 (73) 99 Nasal Cannula 2.00 06/04/22 03:00 80 18 126/56 (74) 98 Nasal Cannula 2.00 06/04/22 02:00 73 29 124/58 (85) 97 Nasal Cannula 2.00 06/04/22 01:00 78 06/04/22 01:00 78 18 132/58 (80) 98 Nasal Cannula 2.00 06/04/22 00:03 37.0 06/04/22 00:01 96 Nasal Cannula 2.00 0 06/04/22 00:00 80 19 137/60 (91) 98 Nasal Cannula 2.00 06/03/22 23:00 80 23 139/61 (88) 99 Nasal Cannula 2.00 06/03/22 22:00 81 23 143/61 (91) 97 Nasal Cannula 2.00 06/03/22 21:00 79 29 133/57 (84) 95 Nasal Cannula 2.00 06/03/22 20:00 84 15 158/70 (108) 96 Nasal Cannula 2.00 06/03/22 20:00 96 Nasal Cannula 2.00 0 06/03/22 19:33 36.6 06/03/22 19:03 99 Nasal Cannula 2.00 06/03/22 19:00 85 06/03/22 19:00 85 29 148/62 (75) 100 Nasal Cannula 2.00 06/03/22 18:00 81 28 140/72 (94) 99 Nasal Cannula 1.00 06/03/22 17:00 36.7 06/03/22 17:00 77 17 138/74 (95) 93 Nasal Cannula 1.00 06/03/22 16:00 93 Nasal Cannula 3.00 0 06/03/22 16:00 80 27 100/58 (72) 98 Nasal Cannula 1.00 06/03/22 15:00 81 20 142/57 (85) 97 Nasal Cannula 1.00 06/03/22 14:00 85 30 138/60 (86) 97 Nasal Cannula 1.00 06/03/22 13:00 90 06/03/22 13:00 90 152/66 (94) 93 Nasal Cannula 1.00 06/03/22 12:00 86 152/70 (97) 96 Nasal Cannula 1.00 06/03/22 12:00 36.8 06/03/22 12:00 93 Nasal Cannula 3.00 0 06/03/22 11:00 90 12 127/65 (85) 94 Nasal Cannula 1.00 06/03/22 10:37 93 Nasal Cannula 2.00 06/03/22 10:30 93 Nasal Cannula 3.00 0 06/03/22 10:10 36.8 18 162/74 (103) 93 Nasal Cannula 2.00 06/03/22 10:10 Nasal Cannula 2.00 06/03/22 10:00 18 164/76 (105) 93 Nasal Cannula 2.00 06/03/22 10:00 93 147/75 (99) Nasal Cannula 1.00 06/03/22 09:59 Nasal Cannula 2.00 06/03/22 09:56 OxyMask 2.00 06/03/22 09:52 OxyMask 4.00 06/03/22 09:50 18 179/75 (109) 95 OxyMask 4.00 06/03/22 09:48 OxyMask 6.00 06/03/22 09:44 37.3 06/03/22 09:42 OxyMask 8.00 06/03/22 09:40 18 173/71 (105) 94 OxyMask 8.00 06/03/22 09:30 OxyMask 8.00 06/03/22 09:30 37.4 18 157/66 (96) 92 OxyMask 8.00 06/03/22 09:20 OxyMask 8.00 06/03/22 09:20 16 114/66 (82) 92 OxyMask 8.00 06/03/22 09:14 OxyMask 8.00 06/03/22 09:14 37.4 16 136/61 (86) 92 OxyMask 8.00 I & O 06/04/22 07:00 Intake Total 2570 ml Output Total 1495 ml Balance 1075 ml Lab Results Laboratory Tests 06/03/22 09:18: Glucometer 120H 06/03/22 10:30: Glucometer 114H 06/03/22 10:55: White Blood Count 15.9H, Red Blood Count 3.27L, Hemoglobin 9.4L, Hematocrit 29L, Mean Corpuscular Volume 90, Mean Corpuscular Hemoglobin 29, Mean Corpuscular Hemoglobin Concent 32, Red Cell Distribution Width 15.5H, Platelet Count 213, Mean Platelet Volume 10.3, Sodium Level 138, Potassium Level 4.3, Chloride Level 109H, Carbon Dioxide Level 21, Anion Gap 8, Blood Urea Nitrogen 14, Creatinine 1.61H, Estimat Glomerular Filtration Rate 45, BUN/Creatinine Ratio 9, Glucose Level 100, Calcium Level 7.2L 06/03/22 11:18: Glucometer 105 06/03/22 11:56: Glucometer 82 06/03/22 12:31: Glucometer 133H 06/03/22 13:44: Glucometer 207H 06/03/22 14:37: Glucometer 209H 06/03/22 16:35: Glucometer 225H 06/03/22 20:25: Glucometer 248H 06/04/22 04:12: White Blood Count 10.8, Red Blood Count 2.86L, Hemoglobin 8.0L, Hematocrit 25L, Mean Corpuscular Volume 89, Mean Corpuscular Hemoglobin 28, Mean Corpuscular Hemoglobin Concent 32, Red Cell Distribution Width 15.6H, Platelet Count 168, Mean Platelet Volume 10.4, Sodium Level 136, Potassium Level 4.3, Chloride Level 109H, Carbon Dioxide Level 20L, Anion Gap 7, Blood Urea Nitrogen 15, Creatinine 1.45H, Estimat Glomerular Filtration Rate 51, BUN/Creatinine Ratio 10, Glucose Level 203H, Calcium Level 7.3L, Beta-Hydroxybutyrate (Chem panel) 0.17 Microbiology 06/01/22 MRSA Screen - Final, Complete MRSA not isolated Assessment and Plan Assessment Right Intertrochanteric Femur Fracture s/p Intramedullary Nailing Problem List Right Intertrochanteric Femur Fracture s/p Intramedullary Nailing Plan PT/OT DVT Prophylaxis Final Diagonsis Right Intertrochanteric Femur Fracture s/p Intramedullary Nailing Level of the visit: Level 3 (postop global) SACHIN CLAY MD Jun 04, 2022 09:02
--- NOTE | 2022-06-04 09:32 | Tele-ICU Progress Note ---
Subjective Date Seen by a Provider: Jun 04, 2022 Time Seen by a Provider: 09:32 Subjective/Events-last exam (Tele-ICU Physician , Progress Note ) Available chart/ vitals / labs / Images reviewed Video assessment done using teleICU camera, rest of exam as per RN Discussed with RN Events overnight : Afebrile hemodynamically stable Respiratory - 1-2 I/O = Drips: Pressors- no Consultants: Hospital course: (06/01) 71 y M found at home on floor after fall c/o right hip and leg pain . patient with noted right hip fx, ? DKA, hyperkalemia , hyponatremia and leukocytosis 06/02 - closed AG 06/03- s/p ORIF, off insulin gtt A/P DKA / DM - recovered , changed to long actin insulin ALAN/CKD - improved , follow on minimal IVF H/o CHF, CAD , mild to moderate AR -compensated -ECHO 06/02/22- EF 50% , gr 1 dst dsfn, RVSP 45 mmHg - cards follow Right intertrochanteric femur fracture - s/p ORIF 06/03 - pain conrtrolled , changing to po Hypoxia - mostly nocturnal - ? CARLA - will stop IVF and follow Anemia - post op ( EBL 200 ml ) vs delutional , not bleeding actively - follow Nutrition - po Lines : periph , (Central Line Necessity Reviewed) Santiago: + OG: Nutrition: po Analgesia: Anxiety/ delirium VTE Prophylaxis: scd-/hep sq Stress Ulcer Prophylaxis: Plans in collaboration with bedside consultants and IM MDs. Discussed with RN to reach out if any questions or concerns A total of 22 minutes of critical care time was devoted to this patient today, required to treat and/or prevent further deterioration of critical care condition ( as above ) . Sepsis Event Evaluation Height, Weight, BMI Height: 5'8.00" Weight: 192lbs. 0.0oz. [id number]; 33.79 BMI Method:Stated Exam Exam Patient acknowledged, consented, and participated in this virtual visit which was conducted using real time audio/video Vital Signs Date Time Temp Pulse Resp B/P (MAP) Pulse Ox O2 Delivery O2 Flow Rate FiO2 06/04/22 09:00 81 12 148/67 (94) 96 Nasal Cannula 2.00 06/04/22 08:00 80 22 147/66 (93) 98 Nasal Cannula 2.00 06/04/22 07:07 83 06/04/22 07:00 82 21 110/52 (71) 90 Nasal Cannula 2.00 06/04/22 06:00 81 16 128/57 (81) 97 Nasal Cannula 2.00 06/04/22 05:00 85 32 132/75 (93) 98 Nasal Cannula 2.00 06/04/22 04:18 37.1 06/04/22 04:00 96 Nasal Cannula 2.00 0 06/04/22 04:00 78 11 129/50 (73) 99 Nasal Cannula 2.00 06/04/22 03:00 80 18 126/56 (74) 98 Nasal Cannula 2.00 06/04/22 02:00 73 29 124/58 (85) 97 Nasal Cannula 2.00 06/04/22 01:00 78 06/04/22 01:00 78 18 132/58 (80) 98 Nasal Cannula 2.00 06/04/22 00:03 37.0 06/04/22 00:01 96 Nasal Cannula 2.00 0 06/04/22 00:00 80 19 137/60 (91) 98 Nasal Cannula 2.00 06/03/22 23:00 80 23 139/61 (88) 99 Nasal Cannula 2.00 06/03/22 22:00 81 23 143/61 (91) 97 Nasal Cannula 2.00 06/03/22 21:00 79 29 133/57 (84) 95 Nasal Cannula 2.00 06/03/22 20:00 84 15 158/70 (108) 96 Nasal Cannula 2.00 06/03/22 20:00 96 Nasal Cannula 2.00 0 06/03/22 19:33 36.6 06/03/22 19:03 99 Nasal Cannula 2.00 06/03/22 19:00 85 06/03/22 19:00 85 29 148/62 (75) 100 Nasal Cannula 2.00 06/03/22 18:00 81 28 140/72 (94) 99 Nasal Cannula 1.00 06/03/22 17:00 36.7 06/03/22 17:00 77 17 138/74 (95) 93 Nasal Cannula 1.00 06/03/22 16:00 93 Nasal Cannula 3.00 0 06/03/22 16:00 80 27 100/58 (72) 98 Nasal Cannula 1.00 06/03/22 15:00 81 20 142/57 (85) 97 Nasal Cannula 1.00 06/03/22 14:00 85 30 138/60 (86) 97 Nasal Cannula 1.00 06/03/22 13:00 90 06/03/22 13:00 90 152/66 (94) 93 Nasal Cannula 1.00 06/03/22 12:00 86 152/70 (97) 96 Nasal Cannula 1.00 06/03/22 12:00 36.8 06/03/22 12:00 93 Nasal Cannula 3.00 0 06/03/22 11:00 90 12 127/65 (85) 94 Nasal Cannula 1.00 06/03/22 10:37 93 Nasal Cannula 2.00 06/03/22 10:30 93 Nasal Cannula 3.00 0 06/03/22 10:10 36.8 18 162/74 (103) 93 Nasal Cannula 2.00 06/03/22 10:10 Nasal Cannula 2.00 06/03/22 10:00 18 164/76 (105) 93 Nasal Cannula 2.00 06/03/22 10:00 93 147/75 (99) Nasal Cannula 1.00 06/03/22 09:59 Nasal Cannula 2.00 06/03/22 09:56 OxyMask 2.00 06/03/22 09:52 OxyMask 4.00 06/03/22 09:50 18 179/75 (109) 95 OxyMask 4.00 06/03/22 09:48 OxyMask 6.00 06/03/22 09:44 37.3 06/03/22 09:42 OxyMask 8.00 06/03/22 09:40 18 173/71 (105) 94 OxyMask 8.00 I & O 06/04/22 07:00 Intake Total 2570 ml Output Total 1495 ml Balance 1075 ml Height & Weight Height: 5'8.00" Weight: 192lbs. 0.0oz. [id number]; 33.79 BMI Method:Stated General Appearance: No Apparent Distress, Chronically ill HEENT: Pale Conjunctivae (L), Pale Conjunctivae (R) Neck: Full Range of Motion, Normal Inspection, Non Tender Respiratory: Chest Non Tender, Lungs Clear, Normal Breath Sounds, No Accessory Muscle Use, No Respiratory Distress Cardiovascular: Regular Rate, Rhythm, No Edema, No Gallop, No JVD, No Murmur Capillary Refill: Less Than 3 Seconds Peripheral Pulses: 4+ Radial Pulses (R), 4+ Radial Pulses (L) Extremity: Swelling (External rotation and foreshortening of the right leg extremities are warm peripheral pulses were not apparent. No ulceration noted. No significant bruising minimal swelling of the right thigh and groin incisions and popliteal incisions well-healed her text) Neurologic/Psychiatric: Sensory Deficit (Involving the feet) Results Lab Laboratory Tests 06/02/22 12:05 06/02/22 20:06 06/03/22 10:55 06/04/22 04:12 Assessment/Plan Assessment/Plan 1 SALIMA CHANG MD Jun 04, 2022 09:32
[2022-06-04] MEDS: RT-ALBUTEROL SULF 2.5 MG/3 ML PRE-MIX VIAL INH SCH (10:16)
--- NOTE | 2022-06-04 10:21 | Physical Therapy Daily Note ---
PT Daily Note-Current Subjective Patient in bed pre tx, agrees to PT, has 5/10 pain in right hip. Pain Section J - Health Conditions 1. Rarely or not at all 2. Occasionally 3. Frequently 4. Almost constantly 8. Unable to answer Pain Effect on Sleep: 2 Pain Interference with Therapy: 2 Pain Interference w/Day-to-Day: 2 Appearance Patient in recliner post tx with nurse call, phone, tray, michelle alarm pad in chair, nurse notified and she is going to try to find the alarm part. Mental Status Patient Orientation: Person, Confused Attachments: [place] Catheter, IV Transfers SCALE: Activities may be completed with or without assistive devices. 7-Odqlpsjjbx-ryuinas completes the activity by him/herself with no assistance from a helper. 5-Set-up or Clean-up Assistance-helper sets up or cleans up; patient completes activity. [place] assists only prior to or following the activity. 4-Supervision or Touching Assistance-helper provides verbal cues and/or touching/steadying and/or contact guard assistance as patient completes activity. Assistance may be provided throughout the activity or intermittently. 3-Partial/Moderate Assistance-helper does LESS THAN HALF the effort. [place] lifts, holds or supports trunk or limbs, but provides less than half the effort. 2-Substantial/Maximal Assistance-helper does MORE THAN HALF the effort. [place] lifts or holds trunk or limbs and provides more than half the effort. 0-Tbrkzsuqy-axbati does ALL the effort. Patient does none of the effort to complete the activity. Or, the assistance of 2 or more helpers is required for the patient to complete the activity. If activity was not attempted, code reason: 7-Patient Refused. 9-Not Applicable-not attempted and the patient did not perform the activity before the current illness, exacerbation or injury. 10-Not Attempted due to Environmental Limitations-(lack of equipment, weather restraints, etc.). 88-Not Attempted due to Medical Conditions or Safety Concerns. Roll Left & Right (QC): 1 Lying to Sitting/Side of Bed(Q: 1 Sit to Stand (QC): 1 Chair/Mym-iv-Qpixd Xfer(QC): 1 assist of 2-3 for supine to sit and to stand and transfer to recliner. Weight Bearing Right Lower Extremity: Right Weight Bearing/Tolerated Left Lower Extremity: Left Full Weight Bearing Gait Training patient was able to take a couple of steps to the recliner with therapist manually assisting patient to move his right leg. Treatments bed mobility and transfers Assessment Current Status: Poor Progress patient is very confused, needs constant cues to stay on task PT Short Term Goals Short Term Goals Time Frame: Jun 14, 2022 Roll Left & Right: 2 Sit to lyin Lying to sitting on side of be: 2 Sit to stand: 2 Chair/bts-qw-kvfwv transfer: 2 Toilet transfer: 2 Walk 10 feet: 2 PT Custodial Goals Vinyl Flooring Installer Goals PT Vinyl Flooring Installer Goals Time Frame: Jun 28, 2022 Roll Left & Right (QC): 3 Sit to Lying (QC): 3 Lying-Sitting on Side/Bed(QC): 3 Sit to Stand (QC): 3 Chair/Qyf-ol-Snslu Xfer(QC): 3 Toilet Transfer (QC): 3 Walk 10 feet (QC): 3 Walk 50ft with 2 Turns (QC): 3 Walk 150 ft (QC): 3 Walking 10ft on Uneven Surface: 3 PT Plan Problem List Problem List: Activity Tolerance, Functional Strength, Safety, Balance, Gait, Transfer, Bed Mobility, ROM Treatment/Plan Treatment Plan: Continue Plan of Care Treatment Plan: Bed Mobility, Education, Functional Activity Michel, Functional Strength, Gait, Safety, Therapeutic Exercise, Transfers Treatment Duration: Jun 28, 2022 Frequency: 11 times per week Estimated Hrs Per Day: .5 hour per day Safety Risks/Education Patient Education: Transfer Techniques, Correct Positioning, Safety Issues Teaching Recipient: Patient Teaching Methods: Demonstration, Discussion Response to Teaching: Reinforcement Needed Time/GCodes Time In: 0938 Time Out: 1001 Total Billed Treatment Time: 23 Total Billed Treatment 1 visit FA CRISTÓBAL FERREIRA PT Jun 04, 2022 10:21
--- NOTE | 2022-06-04 10:56 | Occupational Therapy Eval ---
OT Evaluation-General/PLF Medical Diagnosis Admission Date Jun 01, 2022 at 09:26 Medical Diagnosis: right hip fracture/ALAN/DKA Onset Date: Jun 01, 2022 Therapy Diagnosis Therapy Diagnosis: reduced adl status Height/Weight Height (Feet): 5 Height (Inches): 8.00 Weight (Pounds): 192 Weight (Ounces): 0.0 Precautions Precautions/Isolations: Fall Prevention, Standard Precautions Comments s/p IM nailing Weight Bear Status Weight Bearing Restriction: Weight Bearing/Tolerated Referral Physician: Robert Referral Reason: Evaluation/Treatment Medical History Pertinent Medical History: Atrial Fib, Alcoholism, CAD, COPD, DM, Heart Failure, HTN, Neuropathy, Renal Insufficiency, Smoking Current History Pt reports falling in the bathroom after his caregiver mopped the floor. He is post op day 1, s/p IM nailing. Per patient, he lives in an apartment on the 5th floor with elevator access. He reports being independent with adls but has a caregiver that assists with all iadls. His caregiver comes in ~3-4 hours every day. He states he was not using any AD prior to fall. Reviewed History: Yes Social History Home: Apartment Current Living Status: Alone Entry Into Home: Elevator ADL-Prior Level of Function SCALE: Activities may be completed with or without assistive devices. 0-Eihwamwxec-pcatmxt completes the activity by him/herself with no assistance from a helper. 5-Set-up or Clean-up Assistance-helper sets up or cleans up; patient completes activity. [place] assists only prior to or following the activity. 4-Supervision or Touching Assistance-helper provides verbal cues and/or touching/steadying and/or contact guard assistance as patient completes activity. Assistance may be provided throughout the activity or intermittently. 3-Partial/Moderate Assistance-helper does LESS THAN HALF the effort. [place] lifts, holds or supports trunk or limbs, but provides less than half the effort. 2-Substantial/Maximal Assistance-helper does MORE THAN HALF the effort. [place] lifts or holds trunk or limbs and provides more than half the effort. 4-Unuimmhps-vameha does ALL the effort. Patient does none of the effort to complete the activity. Or, the assistance of 2 or more helpers is required for the patient to complete the activity. If activity was not attempted, code reason: 7-Patient Refused. 9-Not Applicable-not attempted and the patient did not perform the activity b efore the current illness, exacerbation or injury. 10-Not Attempted due to Environmental Limitations-(lack of equipment, weather restraints, etc.). 88-Not Attempted due to Medical Conditions or Safety Concerns. Self Care: Unknown Functional Cognition: Unknown DME/Equipment: Bath Chair, Tub/Shower Drive Self: No OT Current Status Subjective Pt requires significant encouragement to participate in therapy. He is easily distracted and with poor topic maintenance. Appearance Pt left sitting in recliner, all needs within reach at therapy departure. Mental Status/Objective Patient Orientation: Person, Place Attachments: Santiago Catheter, IV, SCD's, Telemetry Current Hand Dominance: Right Upper Extremity ROM WFL Upper Extremity Strength Bilateral shoulders: 3+/5, Elbows-distally: 4/5 ADL-Treatment Eating (QC): 4 Lower Body Dressing (QC): 1 On/Off Footwear (QC): 1 Toileting Hygiene (QC): 1 Pt reclined in bed at OT arrival. The nursing professor was feeding him. When asked if he could feed himself, he reports "well yeah, but I just want someone to do it for me." After encouragement and education, pt was able to demonstrate ability to feed self without assistance. Assist x2 to transfer to EOB. Poor sitting balance, needing 1-2 UE support to maintain balance. Pt is easily distracted and requires redirection back to task at hand. Dependent to don bilateral socks. Poor effort given, yet anticipate assist still needed due to needing UE support on bedrail to maintain balance. Sit<>stand: assist x2. Requires step by step cues on transferring to chair. Manual assist to advance RLE. While transferring to chair, pt begins to initiate sitting down. Dependent to stay upright and transfer hips towards chair to keep from falling. Dependent x2 to scoot hips towards back of chair. Little effort given by patient throughout treatment. Education OT Patient Education: Correct positioning, Modified ADL techniques, Purpose of tx/functional activities, Reviewed precautions, Rehab process, Safety issues, Transfer techniques Teaching Recipient: Patient Teaching Methods: Discussion Response to Teaching: Unable to Return Demonstration, Reinforcement Needed OT Custodial Goals Custodial Goals Time Frame: Jun 25, 2022 Eating (QC): 5 Oral Hygiene (QC): 5 Toileting Hygiene (QC): 3 Shower/Bathe Self (QC): 3 Upper Body Dressing (QC): 4 Lower Body Dressing (QC): 3 On/Off Footwear (QC): 3 1=Demonstrate adherence to instructed precautions during ADL tasks. 2=Patient will verbalize/demonstrate understanding of assistive devices/m odifications for ADL. 3=Patient will improve strength/tolerance for activity to enable patient to perform ADL's. OT Education/Plan Problem List/Assessment Assessment: Decreased Activ Tolerance, Decreased Safety Aware, Decreased UE Strength, Dependent Transfers, Impaired Bed Mobility, Impaired Cognition, Impaired Coordination, Impaired Funct Balance, Impaired Self-Care Skills Discharge Recommendations Plan/Recommendations: Continue POC Therapy Discharge Recommendati: Post Acute OT Treatment Plan/Plan of Care Treatment,Training & Education: Yes Patient would benefit from OT for education, treatment and training to promote independence in ADL's, mobility, safety and/or upper extremity function for ADL's. Plan of Care: ADL Retraining, Caregiver Training, Cognitive Retraining, Functional Mobility, Group Exercise/Act as Ind, UE Funct Exercise/Act, W/C Management Training Treatment Duration: Jun 25, 2022 Frequency: 3 times per week (3-5x/week) Estimated Hrs Per Day: .25 hour per day Agreement: Yes Rehab Potential: Guarded Time/GCodes Start Time: 09:39 Stop Time: 10:02 Total Time Billed (hr/min): 23 Billed Treatment Time 1 visit EVH (10 min) FA (13 min) Viola Hilario OT Jun 04, 2022 10:56
--- NOTE | 2022-06-04 11:07 | Cardiology Progress Note ---
Subjective Date Seen by Provider: Jun 04, 2022 Time Seen by Provider: 11:03 Subjective/Events-last exam Patient is sitting up in chair, c/o hip pain, denies any chest pain. Appears much less confused. Review of Systems General: No Chills, No Night Sweats, No Fatigue, No Malaise, No Appetite, No Other HEENT: No Head Aches, No Visual Changes, No Eye Pain, No Ear Pain, No Dysphasia, No Sinus Congestion, No Post Nasal Drip, No Sore Throat, No Other Pulmonary: No Dyspnea, No Cough, No Pleuritic Chest Pain, No Other Cardiovascular: No: Chest Pain, Palpitations, Orthopnea, Paroxysmal Noc. Dyspnea, Edema, Lt Headedness, Other Objective-Cardiology Exam Last Set of Vital Signs Vital Signs 06/04/22 06/04/22 06/04/22 06/04/22 04:00 04:18 09:00 09:36 Temp 37.1 Pulse 81 Resp 12 B/P (MAP) 148/67 (94) Pulse Ox 96 O2 Delivery Room Air O2 Flow Rate 2.00 FiO2 0 I&O Intake and Output 06/03/22 23:59 Intake Total 1670 ml Output Total 1745 ml Balance -75 ml Intake Oral 350 ml IV Total 1320 ml Output Urine Total 1745 ml General: Alert, No Acute Distress HEENT: PERRLA, EOMI, Mucous Memb Moist/[place] Neck: Supple, No JVD Lungs: Clear to Auscultation, Normal Air Movement Heart: Regular Rate, No Murmurs Abdomen: Normal Bowel Sounds, Soft, No Tenderness Extremities: Normal Pulses Skin: No Rashes, No Breakdown Neuro: Sensation Intact Psych/Mental Status: Other (speech difficult to understand, changing topics quickly) Results Lab Laboratory Tests 06/04/22 04:12 A/P-Cardiology Admission Diagnosis Right hip fx PVD CAD CHF Assessment/Plan Right hip fracture secondary to fall at home, s/p surgery with Dr. Jones on June 03, 2022. Recovering well, feeling well. Peripheral arterial disease, extensive disease, patient had multiple intervention [place] [address] Chandra using atherectomy and 2 overlapping stent i n the left SFA 5 x 150 and 6 x 150 and 6 x 20 then had intervention in the right SFA using 2 Supera stents 5 x 120, has been having increasing claudication, returned for angiogram in October 2019 which showed total occlusion of both SFA, failed intervention, Referred for evaluation for vascular surgery, has seen Dr. Milian in [facility] and underwent aortobifem on 08/20/20, had multiple procedures done by Dr. Milian, on the left leg done in November and on the right leg had it done earlier in April and has a follow-up appointment. Coronary artery disease, extensive disease. Had a cardiac catheterization done with Dr. Chandra in June 2018 which showed chronic total occlusion of the proximal right coronary artery reconstructed by collaterals, has severe stenosis in the mid to distal LAD and had 2 stents deployed using Patricia 2.5 x 38 and 2.5 x 15 expanded to 3.0. FFR to OM1 that has moderate stenosis was 0.84 and no intervention was done at that time. Cardiac stress test done in [facility] in June 2020 which reported as medium-size moderate intensity inferior and distal inferolateral wall defect with ischemia, stress score is 6, SDS 6, patient is asymptomatic, probably ischemic segment is due to the occluded right coronary artery Congestive heart failure, chronic left ventricular systolic dysfunction, ischemic cardiomyopathy, last echocardiogram done in June 02, 2022 showed EF 55-60%, grade 1 diastolic dysfunction, mild to moderate AR, PA 45-50mmHg. Sinus node dysfunction. Multiple sinus pauses occurred at night while asleep. Asymptomatic. No history of syncope. Continue to monitor DM, management per medical team Hypertension, continue to monitor blood pressure Hyperlipidemia, monitored as outpatient History of GI bleed History of right foot drop Moderate carotid stenosis on the left, mild disease on the right, ultrasound done in October 2020. Continue to monitor Supervisory-Addendum Brief Supervisory Addendum Participated in pt care: history, MDM, physical Personally performed: exam, history, MDM Care discussed with: ROSITA Results interpretation: Verified all documentation Notes: Patient was seen and evaluated with Jill, examination performed, management plan was discussed, agree with the current scribed note, I made few changes to the note using Italic font Patient was seen at bedside, laying down comfortably Feeling better and asking about going home Currently off telemetry and doing well. Continue to monitor Okay for discharge from cardiology standpoint JILL MELO Jun 04, 2022 11:07 LINDA HASSAN MD Jun 04, 2022 13:37
[2022-06-04] MEDS ORDERED: OXYMETAZOLINE HCL NS PRN (12:00)
[2022-06-04] MEDS ORDERED: OXYMETAZOLINE (AFRIN) 0.05% NA 30 ML BTL NS PRN (12:15)
--- NOTE | 2022-06-04 12:42 | Physical Therapy Daily Note ---
PT Daily Note-Current Subjective Patient in recliner pre tx, agrees to PT, has 5/10 pain in right hip. Pain Section J - Health Conditions 1. Rarely or not at all 2. Occasionally 3. Frequently 4. Almost constantly 8. Unable to answer Pain Effect on Sleep: 2 Pain Interference with Therapy: 2 Pain Interference w/Day-to-Day: 2 Appearance Patient in bed post tx with nurse call, phone, tray, all needs met. Mental Status Attachments: SCD's (and heel protectors), Santiago Catheter, IV Transfers SCALE: Activities may be completed with or without assistive devices. 0-Pnypefiask-zzspiqm completes the activity by him/herself with no assistance from a helper. 5-Set-up or Clean-up Assistance-helper sets up or cleans up; patient completes activity. [place] assists only prior to or following the activity. 4-Supervision or Touching Assistance-helper provides verbal cues and/or touching/steadying and/or contact guard assistance as patient completes activity. Assistance may be provided throughout the activity or intermittently. 3-Partial/Moderate Assistance-helper does LESS THAN HALF the effort. [place] lifts, holds or supports trunk or limbs, but provides less than half the effort. 2-Substantial/Maximal Assistance-helper does MORE THAN HALF the effort. [place] lifts or holds trunk or limbs and provides more than half the effort. 4-Waivzjmuu-qcglne does ALL the effort. Patient does none of the effort to complete the activity. Or, the assistance of 2 or more helpers is required for the patient to complete the activity. If activity was not attempted, code reason: 7-Patient Refused. 9-Not Applicable-not attempted and the patient did not perform the activity before the current illness, exacerbation or injury. 10-Not Attempted due to Environmental Limitations-(lack of equipment, weather restraints, etc.). 88-Not Attempted due to Medical Conditions or Safety Concerns. Roll Left & Right (QC): 1 Sit to Lying (QC): 1 Sit to Stand (QC): 1 Chair/Oha-px-Wlnrw Xfer(QC): 1 Patient would not participate or help with standing or transfer, would not respond to dues to lean forward or scoot forward in recliner in preparation to stand, needed assist of 2 for sit to supine, would not even help position his body correctly in bed. He can talk and have a conversation but would not help move or transfer at all. Weight Bearing Right Lower Extremity: Right Weight Bearing/Tolerated Left Lower Extremity: Left Full Weight Bearing Treatments transfers, bed mobility Assessment Current Status: Poor Progress dependent for all mobility PT Short Term Goals Short Term Goals Time Frame: Jun 14, 2022 Roll Left & Right: 2 Sit to lyin Lying to sitting on side of be: 2 Sit to stand: 2 Chair/cux-ii-bimxy transfer: 2 Toilet transfer: 2 Walk 10 feet: 2 PT Mcfp Goals [employer] Mechanic Goals PT Mcfp Goals Time Frame: Jun 28, 2022 Roll Left & Right (QC): 3 Sit to Lying (QC): 3 Lying-Sitting on Side/Bed(QC): 3 Sit to Stand (QC): 3 Chair/Nik-qg-Vscjn Xfer(QC): 3 Toilet Transfer (QC): 3 Walk 10 feet (QC): 3 Walk 50ft with 2 Turns (QC): 3 Walk 150 ft (QC): 3 Walking 10ft on Uneven Surface: 3 PT Plan Problem List Problem List: Activity Tolerance, Functional Strength, Safety, Balance, Gait, Transfer, Bed Mobility, ROM Treatment/Plan Treatment Plan: Continue Plan of Care Treatment Plan: Bed Mobility, Education, Functional Activity Michel, Functional Strength, Gait, Safety, Therapeutic Exercise, Transfers Treatment Duration: Jun 28, 2022 Frequency: 11 times per week Estimated Hrs Per Day: .5 hour per day Safety Risks/Education Patient Education: Transfer Techniques, Correct Positioning, Safety Issues Teaching Recipient: Patient Teaching Methods: Demonstration, Discussion Response to Teaching: Reinforcement Needed Time/GCodes Time In: 1133 Time Out: 1143 Total Billed Treatment Time: 10 Total Billed Treatment 1 visit FA CRISTÓBAL ALDRIDGE PT Jun 04, 2022 12:42
--- NOTE | 2022-06-04 13:27 | Progress Note ---
ANTHONY IBANEZ 06/04/22 1327: Subjective Subjective/Events-last exam Our patient is a 71 M, admitted to ICU after sustaining a fall with subsequent right hip fracture and hyperglycemia. Pt received surgery on the hip with Dr. Jones on morning of 06/03. Today Mr. Nicholas states that he is having no problems at all and would like to go home tomorrow. Pt states he lives at [facility] and has a home health aide who comes to his house 5 days per week. He is alert and oriented to self and place but not time and is unable to answer question about who is current medical insurance verifier. He says he has been talking to his son and would like us to talk to him as well. Denies having a bowel movements since yesterday. Denies nausea, vomiting, or any pain. Objective Exam Last Set of Vital Signs Vital Signs Date Time Temp Pulse Resp B/P (MAP) Pulse Ox O2 Delivery O2 Flow Rate FiO2 06/04/22 09:36 Room Air 06/04/22 09:00 81 12 96 2.00 06/04/22 04:18 37.1 06/04/22 04:00 0 Capillary Refill : Less Than 3 SecondsLess Than 3 Seconds I&O Intake and Output 06/04/22 00:00 Intake Total 1670 ml Output Total 1745 ml Balance -75 ml Intake Oral 350 ml IV Total 1320 ml Output Urine Total 1745 ml General: Alert, No Acute Distress HEENT: PERRLA, EOMI Neck: Supple Lungs: Clear to Auscultation, Normal Air Movement Heart: Regular Rate, No Murmurs Abdomen: Normal Bowel Sounds, Soft, No Tenderness Extremities: No Edema, Normal Pulses, No Tenderness/Swelling Skin: No Rashes, No Breakdown Neuro: Normal Tone Results/Procedures Lab Laboratory Tests 06/03/22 13:44: Glucometer 207H 06/03/22 14:37: Glucometer 209H 06/03/22 16:35: Glucometer 225H 06/03/22 20:25: Glucometer 248H 06/04/22 04:12: White Blood Count 10.8, Red Blood Count 2.86L, Hemoglobin 8.0L, Hematocrit 25L, Mean Corpuscular Volume 89, Mean Corpuscular Hemoglobin 28, Mean Corpuscular Hemoglobin Concent 32, Red Cell Distribution Width 15.6H, Platelet Count 168, Mean Platelet Volume 10.4, Sodium Level 136, Potassium Level 4.3, Chloride Level 109H, Carbon Dioxide Level 20L, Anion Gap 7, Blood Urea Nitrogen 15, Creatinine 1.45H, Estimat Glomerular Filtration Rate 51, BUN/Creatinine Ratio 10, Glucose Level 203H, Calcium Level 7.3L, Beta-Hydroxybutyrate (Chem panel) 0.17 06/04/22 11:12: Glucometer 163H Microbiology 06/01/22 MRSA Screen - Final, Complete MRSA not isolated Radiology Chest x-ray: Impression: Mild blunting the left lateral aspect which may relate to soft tissue overlap, small effusion, infiltrate, and/or atelectasis. Hip/pelvis x-ray: Impression: Displaced intertrochanteric right hip fracture. Head CT: Impression: . No identified acute intracranial abnormality. Nonspecific complete opacification in the right sphenoid sinus which is also present on January 27, 2020. Procedures Intramedullary Nailing of Right Intertrochanteric Femur Fracture on 06/03/22 Assessment/Plan Assessment/Plan Admission Dx Right hip fracture Assessment & Plan (1) Diabetes mellitus, type 2 Status: Chronic Assessment & Plan: D/c insulin drip. Manage diet for diabetic patient. Continue glucose monitoring. (2) BPH (benign prostatic hyperplasia) Status: Chronic Assessment & Plan: 06/04: Restart terazosin, prazosin (3) COPD (chronic obstructive pulmonary disease) Status: Chronic Assessment & Plan: Remain on nasal canula (4) Acute kidney injury superimposed on chronic kidney disease Status: Acute (5) Peripheral vascular disease Status: Chronic Assessment & Plan: continue home meds (6) Coronary artery disease Status: Chronic Assessment & Plan: continue home meds (7) Delirium due to general medical condition Status: Acute (8) Fall on same level Status: Acute (9) DKA, type 2 Status: Acute Assessment & Plan: 06/04: beta-hydroxybutyrate is 0.17 Qualifiers: Qualified Codes: E11.10 - Type 2 diabetes mellitus with ketoacidosis without coma (10) Hyperkalemia Status: Acute Assessment & Plan: 06/04: K is 4.3 (11) Primary hypertension Status: Chronic Assessment & Plan: 06/04: Restart home med amlodipine (12) Mixed hyperlipidemia Status: Chronic Assessment & Plan: continue home meds (13) Hip fracture, right Status: Acute Assessment & Plan: Surgery on 06/03. Start physical therapy. 06/04: continue with PT with goal of ambulation. Move to med surg floor from ICU. Qualifiers: Qualified Codes: S72.001A - Fracture of unspecified part of neck of right femur, initial encounter for closed fracture (14) Ischemic cardiomyopathy Status: Chronic (15) Chronic combined systolic and diastolic congestive heart failure Status: Chronic (16) Coronary artery disease without angina pectoris Status: Chronic Supervisory-Addendum Brief Verification & Attestation Participated in pt care: history, physical Personally performed: supervision of care Care discussed with: Medical Student Procedures: supervised KEARA VILLALPANDO MD 06/04/22 1411: Objective Exam General: Alert, No Acute Distress Lungs: Clear to Auscultation, Normal Air Movement Heart: Regular Rate, No Murmurs Abdomen: Normal Bowel Sounds, Soft, No Tenderness Extremities: No Edema, Normal Pulses Neuro: Normal Speech Psych/Mental Status: Mood NL Supervisory-Addendum Brief Verification & Attestation Verification and Attestation of Medical Student E/M Service A medical student performed and documented this service in my presence. I reviewed and verified all information documented by the medical student and made modifications to such information, when appropriate. I personally performed the physical exam and medical decision making. Keara Villalpando, Jun 04, 2022,14:11 ANTHONY IBANEZ Jun 04, 2022 13:27 KEARA VILLALPANDO MD Jun 04, 2022 14:11
[2022-06-04 18:15] VITALS: BP 157/68
[2022-06-04] MEDS ORDERED: RT-ALBUTEROL SULF 2.5 MG/3 ML PRE-MIX VIAL INH PRN (18:30)
[2022-06-04 19:25] VITALS: BP 139/58
[2022-06-04] MEDS: TERAZOSIN 5 MG (HYTRIN) CAPSULE PO SCH (20:14)
[2022-06-04] MEDS: amLODIPine 5 MG (NORVASC) TAB PO SCH (20:14)
[2022-06-04] MEDS: GABAPENTIN 600 MG (NEURONTIN) TAB PO SCH (20:14)
[2022-06-04] MEDS ORDERED: PRAZOSIN HCL 10 MG PO SCH (21:00)
[2022-06-05] VITALS (9 sets, daily range): BP systolic 127–147; BP diastolic 59–66
[2022-06-05] MEDS: 1/2 NS IV SOLUTION 1,000 ML IV SCH (02:25)
[2022-06-05] MEDS: inSUlin ASPART (NovoLOG) 1 UNIT/0.01 ML (CHARGE PER UNIT) SC SCH ×5 (05:19→21:45)
[2022-06-05 06:44] LABS: HEMATOCRIT 21 % (40-54); MEAN CORPUSCULAR HEMOGLOBIN 29 pg (25-34); MEAN CORPUSCULAR HGB CONC 32 g/dL (32-36); MEAN CORPUSCULAR VOLUME 88 fL (80-99); MEAN PLATELET VOLUME 10.2 fL (9.0-12.2); PLATELET COUNT 143 10^3/uL (130-400); WHITE BLOOD COUNT 7.6 10^3/uL (4.3-11.0)
[2022-06-05 06:50] LABS: HEMOGLOBIN 6.9 g/dL (13.3-17.7)
[2022-06-05 06:55] LABS: POTASSIUM 3.9 MMOL/L (3.6-5.0)
[2022-06-05 06:57] LABS: CALCIUM 7.4 MG/DL (8.5-10.1)
[2022-06-05 07:01] LABS: CREATININE SERUM 1.5 MG/DL (0.60-1.30)
--- NOTE | 2022-06-05 08:39 | Cardiology Progress Note ---
Subjective Date Seen by Provider: Jun 05, 2022 Time Seen by Provider: 08:15 Subjective/Events-last exam Patient is sitting up in bed, no new complaints. Denies any chest pain or dyspnea Objective-Cardiology Exam Last Set of Vital Signs Vital Signs 06/04/22 06/05/22 04:00 10:03 Pulse Ox 97 O2 Delivery Nasal Cannula O2 Flow Rate 2.00 FiO2 0 I&O Intake and Output 06/05/22 00:00 Intake Total 1530 ml Output Total 1300 ml Balance 230 ml Intake Oral 530 ml IV Total 1000 ml Output Urine Total 1300 ml General: Alert, No Acute Distress HEENT: PERRLA, EOMI Neck: Supple Lungs: Clear to Auscultation, Normal Air Movement Heart: Regular Rate, No Murmurs Abdomen: Normal Bowel Sounds, Soft, No Tenderness Extremities: No Edema, Normal Pulses Skin: No Rashes, No Breakdown Neuro: Normal Speech Psych/Mental Status: Mood NL Results Lab Laboratory Tests 06/05/22 06:26 A/P-Cardiology Admission Diagnosis Right hip fx PVD CAD CHF Assessment/Plan Right hip fracture secondary to fall at home, s/p surgery with Dr. Jones on June 03, 2022. Recovering well, feeling well. Post of anemia, Hgb 6.9, transfuse as needed Peripheral arterial disease, extensive disease, patient had multiple intervention in [address] Chandra using atherectomy and 2 overlapping stent in the left SFA 5 x 150 and 6 x 150 and 6 x 20 then had intervention in the right SFA using 2 Supera stents 5 x 120, has been having increasing claudication, returned for angiogram in October 2019 which showed total occlusion of both SFA, failed intervention, Referred for evaluation for vascular surgery, has seen Dr. Milian in [facility] and underwent aortobifem on 08/20/20, had multiple procedures done by Dr. Milian, on the left leg done in November and on the right leg had it done earlier in April and has a follow-up appointment. Coronary artery disease, extensive disease. Had a cardiac catheterization done with Dr. Chandra in June 2018 which showed chronic total occlusion of the proximal right coronary artery reconstructed by collaterals, has severe stenosis in the mid to distal LAD and had 2 stents deployed using Patricia 2.5 x 38 and 2.5 x 15 expanded to 3.0. FFR to OM1 that has moderate stenosis was 0.84 and no intervention was done at that time. Cardiac stress test done in [facility] in June 2020 which reported as medium-size moderate intensity inferior and distal inferolateral wall defect with ischemia, stress score is 6, SDS 6, patient is asymptomatic, probably ischemic segment is due to the occluded right coronary artery Congestive heart failure, chronic left ventricular systolic dysfunction, ischemic cardiomyopathy, last echocardiogram done in June 02, 2022 showed EF 55-60%, grade 1 diastolic dysfunction, mild to moderate AR, PA 45-50mmHg. Sinus node dysfunction. Multiple sinus pauses occurred at night while asleep. Asymptomatic. No history of syncope. Continue to monitor DM, management per medical team Hypertension, continue to monitor blood pressure Hyperlipidemia, monitored as outpatient History of GI bleed History of right foot drop Moderate carotid stenosis on the left, mild disease on the right, ultrasound done in October 2020. Continue to monitor Supervisory-Addendum Brief Supervisory Addendum Participated in pt care: history, MDM, physical Personally performed: exam, history, MDM Care discussed with: ROSITA Results interpretation: Verified all documentation Notes: Patient was seen and evaluated with Jill, examination performed, management plan was discussed, agree with the current scribed note, I made few changes to the note using Italic font Patient was seen at bedside sitting comfortably, eating breakfast Denies any chest pain Noted to be anemic, possible blood transfusion Continue to monitor blood pressure and lipids, monitor H&H Continue with physical therapy JILL MELO Jun 05, 2022 08:39 LINDA HASSAN MD Jun 05, 2022 10:19
[2022-06-05] MEDS ORDERED: NON-FORMULARY MEDICATION 1 EA EA (Paroxetine HCl 30 MG) PO SCH (09:00)
[2022-06-05] MEDS: amLODIPine 5 MG (NORVASC) TAB PO SCH ×2 (09:26→21:44)
[2022-06-05] MEDS: ASPIRIN E.C. 81 MG (ECOTRIN) TAB PO SCH (09:27)
[2022-06-05] MEDS: FERROUS SULF 325 MG (IRON) TAB PO SCH (09:27)
[2022-06-05] MEDS: PANTOPRAZOLE 40 MG (PROTONIX) TAB PO SCH (09:27)
[2022-06-05] MEDS: PARoxetine 20 MG (PAXIL) TAB PO SCH (09:27)
[2022-06-05] MEDS: GABAPENTIN 300 MG (NEURONTIN) CAP PO SCH (09:27)
[2022-06-05] MEDS: meTOprolol SUCCINATE 100 MG (TOPROL XL) TAB PO SCH (09:27)
[2022-06-05] MEDS: FUROSEMIDE 20 MG (LASIX) TAB PO SCH (09:28)
--- NOTE | 2022-06-05 09:29 | Occupational Ther Daily Note ---
OT Current Status-Daily Note Subjective Pt alert, sitting in recliner. Pt reluctantly agrees to therapy though fatigues quickly. Pt c/o of fatigue and not being able to sleep at night because of then hospital. Mental Status/Objective Patient Orientation: Person, Place ADL-Treatment Therapy Code Descriptions/Definitions Functional [place] Measure: 0=Not Assessed/NA 4=Minimal Assistance 1=Total Assistance 5=Supervision or Setup 2=Maximal Assistance 6=Modified [place] 3=Moderate Assistance 7=Complete IndependenceSCALE: Activities may be completed with or without assistive devices. 2-Tabppnwfzz-xbhjlha completes the activity by him/herself with no assistance from a helper. 5-Set-up or Clean-up Assistance-helper sets up or cleans up; patient completes activity. [place] assists only prior to or following the activity. 4-Supervision or Touching Assistance-helper provides verbal cues and/or touching/steadying and/or contact guard assistance as patient completes activity. Assistance may be provided throughout the activity or intermittently. 3-Partial/Moderate Assistance-helper does LESS THAN HALF the effort. [place] lifts, holds or supports trunk or limbs, but provides less than half the effort. 2-Substantial/Maximal Assistance-helper does MORE THAN HALF the effort. [place] lifts or holds trunk or limbs and provides more than half the effort. 5-Geyegllyi-yadiyn does ALL the effort. Patient does none of the effort to complete the activity. Or, the assistance of 2 or more helpers is required for the patient to complete the activity. If activity was not attempted, code reason: 7-Patient Refused. 9-Not Applicable-not attempted and the patient did not perform the activity before the current illness, exacerbation or injury. 10-Not Attempted due to Environmental Limitations-(lack of equipment, weather restraints, etc.). 88-Not Attempted due to Medical Conditions or Safety Concerns. Other Treatment Pt able to set up own meal and use regular utensils. Pt states that he was made to move and that he isn't able to move. MIX educated pt on the benefits of mo vement and that working with therapies will assist pt in getting back to independence. Pt demonstrates good B UE AROM and strength while completing daily activity task though declines to complete any further therapy. After session, pt sitting in recliner with call light/phone in reach. All needs met in room. OT Senior Care Goals Senior Care Goals Time Frame: Jun 25, 2022 Eating (QC): 5 Oral Hygiene (QC): 5 Toileting Hygiene (QC): 3 Shower/Bathe Self (QC): 3 Upper Body Dressing (QC): 4 Lower Body Dressing (QC): 3 On/Off Footwear (QC): 3 1=Demonstrate adherence to instructed precautions during ADL tasks. 2=Patient will verbalize/demonstrate understanding of assistive devices/modifications for ADL. 3=Patient will improve strength/tolerance for activity to enable patient to perform ADL's. OT Education/Plan Problem List/Assessment Assessment: Decreased Activ Tolerance, Impaired Self-Care Skills Discharge Recommendations Plan/Recommendations: Continue POC Treatment Plan/Plan of Care Patient would benefit from OT for education, treatment and training to promote independence in ADL's, mobility, safety and/or upper extremity function for ADL's. Plan of Care: ADL Retraining, Caregiver Training, Cognitive Retraining, Functional Mobility, Group Exercise/Act as Ind, UE Funct Exercise/Act, W/C Management Training Treatment Duration: Jun 25, 2022 Frequency: 3 times per week (3-5x/week) Estimated Hrs Per Day: .25 hour per day Agreement: Yes Rehab Potential: Guarded Time/GCodes Start Time: 09:00 Stop Time: 09:15 Total Time Billed (hr/min): 15 Billed Treatment Time 1 visit-FA 1 (15 min) CALIXTO DOMÍNGUEZ Jun 05, 2022 09:29
[2022-06-05] MEDS: FINASTERIDE (PROSCAR) 5 MG TAB PO SCH (09:35)
[2022-06-05] MEDS: PRASUGREL 10 MG (EFFIENT) TABLET PO SCH (09:36)
--- NOTE | 2022-06-05 10:13 | Physical Therapy Daily Note ---
PT Daily Note-Current Subjective Patient in bed. Agrees to PT. Pain Section J - Health Conditions 1. Rarely or not at all 2. Occasionally 3. Frequently 4. Almost constantly 8. Unable to answer Pain Effect on Sleep: 2 Pain Interference with Therapy: 2 Pain Interference w/Day-to-Day: 2 Mental Status Patient Orientation: Person, Confused Attachments: Oxygen, [place] Catheter, IV Transfers SCALE: Activities may be completed with or without assistive devices. 2-Cadcklonhr-hwnlkwt completes the activity by him/herself with no assistance from a helper. 5-Set-up or Clean-up Assistance-helper sets up or cleans up; patient completes activity. [place] assists only prior to or following the activity. 4-Supervision or Touching Assistance-helper provides verbal cues and/or touching/steadying and/or contact guard assistance as patient completes activity. Assistance may be provided throughout the activity or intermittently. 3-Partial/Moderate Assistance-helper does LESS THAN HALF the effort. [place] lifts, holds or supports trunk or limbs, but provides less than half the effort. 2-Substantial/Maximal Assistance-helper does MORE THAN HALF the effort. [place] lifts or holds trunk or limbs and provides more than half the effort. 1-[place]ylw[place]fb-av[place] does ALL the effort. Patient does none of the effort to complete the activity. Or, the assistance of 2 or more helpers is required for the patient to complete the activity. If activity was not attempted, code reason: 7-Patient Refused. 9-Not Applicable-not attempted and the patient did not perform the activity before the current illness, exacerbation or injury. 10-Not Attempted due to Environmental Limitations-(lack of equipment, weather restraints, etc.). 88-Not Attempted due to Medical Conditions or Safety Concerns. Lying to Sitting/Side of Bed(Q: 1 (x 2) Sit to Stand (QC): 1 (attempt to perform sit to stand to FWW x 3 sets. Patient unable to perform on this date) Chair/Cyn-ek-Yzuau Xfer(QC): 1 (SPT) Weight Bearing Right Lower Extremity: Right Weight Bearing/Tolerated Left Lower Extremity: Left Full Weight Bearing Exercises Supine Ex: Ankle pumps, Heel Slides Supine Reps: 12 (PROM) Seated Therapy Exercises: Ankle pumps, Long arc quads Seated Reps: 12 (PROM) Assessment Patient continues to require assist of 2-3 staff due to weakness and patient inability to stand. PT to continue to increase activity as tolerated by patient. Patient is up in recliner with chair alarm activated and cushion for comfort. Breakfast in situ. PT Short Term Goals Short Term Goals Time Frame: Jun 14, 2022 Roll Left & Right: 2 Sit to lyin Lying to sitting on side of be: 2 Sit to stand: 2 Chair/kcs-yl-atxay transfer: 2 Toilet transfer: 2 Walk 10 feet: 2 PT Nursing Home Goals Rooming House Inspector Goals PT Nursing Home Goals Time Frame: Jun 28, 2022 Roll Left & Right (QC): 3 Sit to Lying (QC): 3 Lying-Sitting on Side/Bed(QC): 3 Sit to Stand (QC): 3 Chair/Rnj-fi-Tzhkg Xfer(QC): 3 Toilet Transfer (QC): 3 Walk 10 feet (QC): 3 Walk 50ft with 2 Turns (QC): 3 Walk 150 ft (QC): 3 Walking 10ft on Uneven Surface: 3 PT Plan Treatment/Plan Treatment Plan: Continue Plan of Care Treatment Plan: Bed Mobility, Education, Functional Activity Michel, Functional Strength, Gait, Safety, Therapeutic Exercise, Transfers Treatment Duration: Jun 28, 2022 Frequency: 11 times per week Estimated Hrs Per Day: .5 hour per day Time/GCodes Time In: 830 Time Out: 853 Total Billed Treatment Time: 23 Total Billed Treatment 1 visit FA x 2 23 min YONG TODD PT Jun 05, 2022 10:13
--- NOTE | 2022-06-05 13:43 | Physical Therapy Daily Note ---
PT Daily Note-Current Subjective Patient declined OOB activity. Agrees to exercises. Receiving PRBC. Pain Section J - Health Conditions 1. Rarely or not at all 2. Occasionally 3. Frequently 4. Almost constantly 8. Unable to answer Pain Effect on Sleep: 2 Pain Interference with Therapy: 2 Pain Interference w/Day-to-Day: 2 Mental Status Patient Orientation: Person Attachments: Oxygen, [place] Catheter, IV Transfers SCALE: Activities may be completed with or without assistive devices. 7-Xfktyxjcwr-otizyrm completes the activity by him/herself with no assistance from a helper. 5-Set-up or Clean-up Assistance-helper sets up or cleans up; patient completes activity. [place] assists only prior to or following the activity. 4-Supervision or Touching Assistance-helper provides verbal cues and/or touching/steadying and/or contact guard assistance as patient completes activity. Assistance may be provided throughout the activity or intermittently. 3-Partial/Moderate Assistance-helper does LESS THAN HALF the effort. [place] lifts, holds or supports trunk or limbs, but provides less than half the effort. 2-Substantial/Maximal Assistance-helper does MORE THAN HALF the effort. [place] lifts or holds trunk or limbs and provides more than half the effort. 5-Hbvlhjxnn-xrfdwg does ALL the effort. Patient does none of the effort to complete the activity. Or, the assistance of 2 or more helpers is required for the patient to complete the activity. If activity was not attempted, code reason: 7-Patient Refused. 9-Not Applicable-not attempted and the patient did not perform the activity before the current illness, exacerbation or injury. 10-Not Attempted due to Environmental Limitations-(lack of equipment, weather restraints, etc.). 88-Not Attempted due to Medical Conditions or Safety Concerns. Weight Bearing Right Lower Extremity: Right Weight Bearing/Tolerated Left Lower Extremity: Left Full Weight Bearing Exercises Supine Ex: Ankle pumps, Quad Set, Heel Slides, Straight leg raise Supine Reps: 15 (AAROM bilaterally) Assessment Patient repositioned up in bed and lunch in situ. PT to increase activity as tolerated by patient. PT Short Term Goals Short Term Goals Time Frame: Jun 14, 2022 Roll Left & Right: 2 Sit to lyin Lying to sitting on side of be: 2 Sit to stand: 2 Chair/imf-th-idsrv transfer: 2 Toilet transfer: 2 Walk 10 feet: 2 PT Manager Agricultural Goals Manager Agricultural Goals PT Manager Agricultural Goals Time Frame: Jun 28, 2022 Roll Left & Right (QC): 3 Sit to Lying (QC): 3 Lying-Sitting on Side/Bed(QC): 3 Sit to Stand (QC): 3 Chair/Eng-jn-Sdxul Xfer(QC): 3 Toilet Transfer (QC): 3 Walk 10 feet (QC): 3 Walk 50ft with 2 Turns (QC): 3 Walk 150 ft (QC): 3 Walking 10ft on Uneven Surface: 3 PT Plan Treatment/Plan Treatment Plan: Continue Plan of Care Treatment Plan: Bed Mobility, Education, Functional Activity Michel, Functional Strength, Gait, Safety, Therapeutic Exercise, Transfers Treatment Duration: Jun 28, 2022 Frequency: 11 times per week Estimated Hrs Per Day: .5 hour per day Time/GCodes Time In: 1325 Time Out: 1335 Total Billed Treatment Time: 10 Total Billed Treatment 1 visit EX 10 min YONG TODD PT Jun 05, 2022 13:43
--- NOTE | 2022-06-05 15:52 | Progress Note ---
ANTHONY IBANEZ 06/05/22 1552: Subjective Subjective/Events-last exam Salomon Nicholas, 71 yo M, moved to floor from ICU. Today he is in bed eating breakfast. States that he is feeling "not too bad" and believes he is not ready to go home like he previously thought. Says his appetite is extremely good. Has been continuing with physical therapy for his right hip and leg. Reports he has not been ambulating at all yet. Denies having any bowel movements. When asked about pain, he notes he has "almost none" and says it is a 4/10 pain throughout his body in general which he attributes to hitting his head when he fell before entering the hospital. When asked about other problems he is having, Mr. Nicholas states he was suicidal a couple of nights ago with no plan. Mentions he feels suicidal quite frequently. ROS: Pos: lightheaded; Neg: nausea, vomiting, headache, chest pain, shortness of breath Review of Systems Cardiovascular: Lt Headedness Objective Exam Last Set of Vital Signs Vital Signs Date Time Temp Pulse Resp B/P (MAP) Pulse Ox O2 Delivery O2 Flow Rate FiO2 06/05/22 13:58 37.0 101 95 06/05/22 11:43 20 130/62 Room Air 06/05/22 11:38 2.00 06/04/22 04:00 0 Capillary Refill : Less Than 3 SecondsLess Than 3 Seconds I&O Intake and Output 06/05/22 00:00 Intake Total 1530 ml Output Total 1300 ml Balance 230 ml Intake Oral 530 ml IV Total 1000 ml Output Urine Total 1300 ml General: Alert, Cooperative, No Acute Distress HEENT: PERRLA, EOMI Lungs: Clear to Auscultation, Normal Air Movement Heart: Normal S1, Normal S2 Abdomen: Normal Bowel Sounds, Soft, No Tenderness Extremities: Normal Pulses Results/Procedures Lab Laboratory Tests 06/04/22 20:18: Glucometer 179H 06/05/22 04:50: Glucometer 145H 06/05/22 06:26: White Blood Count 7.6, Red Blood Count 2.42L, Hemoglobin 6.9*L, Hematocrit 21L, Mean Corpuscular Volume 88, Mean Corpuscular Hemoglobin 29, Mean Corpuscular Hemoglobin Concent 32, Red Cell Distribution Width 15.1H, Platelet Count 143, Mean Platelet Volume 10.2, Sodium Level 133L, Potassium Level 3.9, Chloride Level 108H, Carbon Dioxide Level 20L, Anion Gap 5, Blood Urea Nitrogen 17, Creatinine 1.50H, Estimat Glomerular Filtration Rate 49, BUN/Creatinine Ratio 11, Glucose Level 134H, Calcium Level 7.4L 06/05/22 11:26: Glucometer 202H 06/05/22 15:27: Glucometer 225H Microbiology 06/01/22 MRSA Screen - Final, Complete MRSA not isolated Radiology Chest x-ray: Impression: Mild blunting the left lateral aspect which may relate to soft tissue overlap, small effusion, infiltrate, and/or atelectasis. Hip/pelvis x-ray: Impression: Displaced intertrochanteric right hip fracture. Head CT: Impression: . No identified acute intracranial abnormality. Nonspecific complete opacification in the right sphenoid sinus which is also present on January 27, 2020. Procedures Intramedullary Nailing of Right Intertrochanteric Femur Fracture on 06/03/22 Assessment/Plan Assessment/Plan Admission Dx Right Hip Fracture, Hyperglycemia Assessment & Plan (1) Diabetes mellitus, type 2 Status: Chronic Assessment & Plan: D/c insulin drip. Manage diet for diabetic patient. Continue glucose monitoring. (2) BPH (benign prostatic hyperplasia) Status: Chronic Assessment & Plan: 06/04: Restart terazosin, prazosin (3) COPD (chronic obstructive pulmonary disease) Status: Chronic Assessment & Plan: Remain on nasal canula (4) Acute kidney injury superimposed on chronic kidney disease Status: Acute (5) Peripheral vascular disease Status: Chronic Assessment & Plan: continue home meds (6) Coronary artery disease Status: Chronic Assessment & Plan: continue home meds (7) Delirium due to general medical condition Status: Acute (8) Fall on same level Status: Acute (9) DKA, type 2 Status: Acute Assessment & Plan: 06/04: beta-hydroxybutyrate is 0.17 Qualifiers: Qualified Codes: E11.10 - Type 2 diabetes mellitus with ketoacidosis without coma (10) Hyperkalemia Status: Acute Assessment & Plan: 06/04: K is 4.3 (11) Primary hypertension Status: Chronic Assessment & Plan: 06/04: Restart home med amlodipine (12) Mixed hyperlipidemia Status: Chronic Assessment & Plan: continue home meds (13) Hip fracture, right Status: Acute Assessment & Plan: Surgery on 06/03. Start physical therapy. 06/04: continue with PT with goal of ambulation. Move to med surg floor from ICU. Qualifiers: Qualified Codes: S72.001A - Fracture of unspecified part of neck of right femur, initial encounter for closed fracture (14) Ischemic cardiomyopathy Status: Chronic (15) Chronic combined systolic and diastolic congestive heart failure Status: Chronic (16) Coronary artery disease without angina pectoris Status: Chronic (17) Anemia of chronic disease Status: Chronic Assessment & Plan: 06/05: Hgb on admission was 12.5. Today is 6.9. Type and screen ordered. Consult surgery to schedule EGD and Colonoscopy to search for GI bleed. Supervisory-Addendum Brief Verification & Attestation Participated in pt care: history, physical Personally performed: supervision of care Care discussed with: Medical Student Procedures: supervised KEARA MOORE MD 06/06/22 0916: Supervisory-Addendum Brief Verification & Attestation Verification and Attestation of Medical Student E/M Service A medical student performed and documented this service in my presence. I reviewed and verified all information documented by the medical student and made modifications to such information, when appropriate. I personally performed the physical exam and medical decision making. Keara Moore, Jun 06, 2022,09:16 ANTHONY IBANEZ Jun 05, 2022 15:52 KEARA MOORE MD Jun 06, 2022 09:16
--- NOTE | 2022-06-05 16:27 | Physician Query Clarification ---
Physician Query-General Query to Physician: The medical record reflects the following clinical evidence: Clinical Indicators: Documentation by nursing of Confusion, mumbling and GCS of 13 on day of admission, has improved to 15, per HPI " confused but surprisingly not comatose despite the fact that his blood sugar was nearly 1300", Na 122 improved to 138 when BS decreased to 100-150. CT head with "No identified acute intracranial abnormality". Risk Factor(s): Electrolyte abnormalities, Multiple co morbid conditions, Treatment: Insulin Gtt, Electrolyte monitoring, CT head 1. Metabolic encephalopathy, present on admission, resolving 2. Other explanation of clinical findings 3. Unable to determine (no explanation for clinical findings) Please clarify and document your clinical opinion in the progress notes and discharge summary including the definitive and/or presumptive diagnosis, (suspected or probable), related to the above clinical findings. Please include clinical findings supporting your diagnosis. Varsha Milton RN, MSN Clinical Knitting Supervisor [phone] [email or web address] PHYSICIAN RESPONSE: Based on the clinical findings in the record, please respond to the query above on this document as an addendum. Physician Response: Physician Response 1 If you have questions please contact: Aboriginal Community Council Member: Ext: Thank you for your time and cooperation. Clinical Knitting Supervisor/Aboriginal Community Council Member This is a permanent part of the medical record VARSHA MILTON Jun 05, 2022 16:26 JOHN VILLALPANDO MD Jun 06, 2022 09:18
[2022-06-05] MEDS: MILK OF MAGNESIA 400 MG/5 ML 30 ML UDC PO SCH ×3 (17:31→21:47)
--- NOTE | 2022-06-05 20:19 | Progress Note-Pre Operative ---
Pre-Operative Progress Note Date of Available H&P: Jun 05, 2022 Date H&P Reviewed: Jun 05, 2022 Time H&P Reviewed: 21:00 History & Physical: No changes noted Pre-Operative Diagnosis: anemia, GERD, absence from colonoscopy NICK DURAN MD Jun 05, 2022 20:19
--- NOTE | 2022-06-05 21:02 | CONSULTATION REPORT ---
DATE OF SERVICE: 06/05/2022 ATTENDING ACOUSTICAL LOGGING ENGINEER: [facility]. ADMITTING PHYSICIAN: Dr. Dhiraj Guidry. HISTORY OF PRESENT ILLNESS: The patient is a 71-year-old male who apparently had significant confusion and fell in his bathroom earlier on the day of admission. He was able to crawl to his bedroom and call relatives and his chief complaint was right hip pain. He was brought to the Emergency Department and worked up and found to have a right intertrochanteric hip fracture, but the patient was also very confused and displayed a very slow mentation. The patient's blood sugar was found to be nearly 1300 and the patient was also dehydrated, likely causing a hyperosmolar state. The patient also is a very poor historian. He has a history of ischemic cardiomyopathy with ejection fraction of approximately 30%, evaluated in 2019, but also does have history of peripheral vascular disease and lower extremity claudication and underwent lower extremity arteriogram and superficial femoral artery angioplasty and stent placement. Since being admitted, the patient underwent an intramedullary intertrochanteric vasquez replacement by orthopedic surgery. The patient's initial hemoglobin was in the normal range at 12; however, on this admission this has decreased to the mid 6 range. The patient states that he has significant history of gastroesophageal reflux disease, which has worsened in the past few years. He does not report any red blood per rectum nor any dark tarry stools. He also does not report ever having a colonoscopy before in the past. PAST MEDICAL HISTORY: Coronary artery disease, peripheral vascular disease, asthma, COPD, hypertension, atrial fibrillation, benign prostatic hypertrophy, renal insufficiency, gastroesophageal reflux disease, insulin-dependent diabetes, degenerative joint disease, anxiety, PTSD. PAST SURGICAL HISTORY: Bilateral lower extremity angioplasty and stent placement, what sounds to be abdominal aortic stent placement. ALLERGIES: NO KNOWN DRUG ALLERGIES. MEDICATIONS: Acetaminophen, albuterol, aspirin, atorvastatin, biotin, bisacodyl, budesonide/formoterol, diphenhydramine, ferrous sulfate, finasteride, fish oil, furosemide, gabapentin, guaifenesin, hydrocodone, detemir insulin, lisinopril, metoprolol, Zofran, oxymetazoline, Protonix, paroxetine, potassium, prasugrel, prazosin, Carafate, tramadol, Incruse Ellipta. SOCIAL HISTORY: Positive smoke, greater than 40 pack years. Negative alcohol. FAMILY HISTORY: Noncontributory. VITAL SIGNS: Temperature 37.3, blood pressure 147/66, pulse 82, respirations 20, pulse ox 96% on 1.5 liters nasal cannula. REVIEW OF SYSTEMS: A well-nourished male who is awake and alert and does answer the majority of questions appropriately. He is not experiencing any shortness of breath or difficulty breathing. No chest pain, palpitations, diaphoresis. He reports that he has had a longstanding history of gastroesophageal reflux disease, which has worsened over time with epigastric burning sensation as well as crampy pain. No known hematemesis, no coffee ground emesis. History of constipation. No known red blood per rectum, no dark tarry stools. No fever or chills, no recent inadvertent weight loss. All other review of systems negative. PHYSICAL EXAMINATION: CHEST: Scattered rales and expiratory wheezes bilaterally. HEART: Regular, no murmurs. EXTREMITIES: A +1/3 bilateral lower extremity edema, negative Homans sign. HEENT: No scleral icterus. NECK: No cervical lymphadenopathy. ABDOMEN: Soft, nondistended. There is pain in the epigastric region on deep palpation. No peritoneal signs. No hernias. SKIN: Warm, dry. LABORATORY DATA: WBC 7.6, hemoglobin 6.9, hematocrit 21, platelets 143. BUN 17, creatinine 1.50, glucose 225. ASSESSMENT AND PLAN: A 71-year-old male with anemia with history of gastroesophageal reflux disease and peptic ulcer disease as well as absence from colonoscopy up to this point in his life. We will proceed with an EGD and colonoscopy on this admission. Job ID: [id number] DocumentID: [id number] Dictated Date: 06/05/2022 20:17:50 Platform Worker Date: 06/05/2022 21:01:55 Dictated By: NICK DURAN MD
[2022-06-05] MEDS: TERAZOSIN 5 MG (HYTRIN) CAPSULE PO SCH (21:44)
[2022-06-05] MEDS: LORazepam 0.5 MG (ATIVAN) TABLET PO PRN (21:46)
[2022-06-05] MEDS: GABAPENTIN 600 MG (NEURONTIN) TAB PO SCH (21:46)
[2022-06-06] VITALS: BP 144/62
[2022-06-06] MEDS: MILK OF MAGNESIA 400 MG/5 ML 30 ML UDC PO SCH ×6 (00:28→12:07)
[2022-06-06 04:00] VITALS: BP 128/64
[2022-06-06] MEDS: inSUlin ASPART (NovoLOG) 1 UNIT/0.01 ML (CHARGE PER UNIT) SC SCH ×4 (07:11→21:27)
[2022-06-06 07:39] VITALS: BP 117/56
[2022-06-06 08:06] LABS: BASOPHILS % (AUTO) 0 % (0-10); EOSINOPHILS # (AUTO) 0.2 10^3/uL (0.0-0.3); EOSINOPHILS % (AUTO) 3 % (0-10); HEMATOCRIT 25 % (40-54); HEMOGLOBIN 8.2 g/dL (13.3-17.7); LYMPHOCYTES # (AUTO) 0.9 10^3/uL (1.0-4.0); LYMPHOCYTES % (AUTO) 10 % (12-44); MEAN CORPUSCULAR HEMOGLOBIN 28 pg (25-34); MEAN CORPUSCULAR HGB CONC 33 g/dL (32-36); MEAN CORPUSCULAR VOLUME 86 fL (80-99); MONOCYTES # (AUTO) 0.6 10^3/uL (0.0-1.0); MONOCYTES % (AUTO) 7 % (0-12); NEUTROPHILS # (AUTO) 6.6 10^3/uL (1.8-7.8); NEUTROPHILS % (AUTO) 79 % (42-75); PLATELET COUNT 168 10^3/uL (130-400); WHITE BLOOD COUNT 8.4 10^3/uL (4.3-11.0)
[2022-06-06 08:26] LABS: ALBUMIN 2.4 GM/DL (3.2-4.5); BILIRUBIN,TOTAL 1.3 MG/DL (0.1-1.0); CALCIUM 7.3 MG/DL (8.5-10.1); CREATININE SERUM 1.68 MG/DL (0.60-1.30); POTASSIUM 4.1 MMOL/L (3.6-5.0); TOTAL PROTEIN 4.5 GM/DL (6.4-8.2)
--- NOTE | 2022-06-06 09:19 | Occupational Ther Daily Note ---
OT Current Status-Daily Note Subjective Pt alert, lying in bed. Pt agrees to therapy. C/o pain, nrsg in room. Mental Status/Objective Patient Orientation: Person, Place, Time, Situation Attachments: IV ADL-Treatment Therapy Code Descriptions/Definitions Functional Luce Measure: 0=Not Assessed/NA 4=Minimal Assistance 1=Total Assistance 5=Supervision or Setup 2=Maximal Assistance 6=Modified Luce 3=Moderate Assistance 7=Complete IndependenceSCALE: Activities may be completed with or without assistive devices. 0-Xrgiktfghy-xhlbduq completes the activity by him/herself with no assistance from a helper. 5-Set-up or Clean-up Assistance-helper sets up or cleans up; patient completes activity. [place] assists only prior to or following the activity. 4-Supervision or Touching Assistance-helper provides verbal cues and/or touching/steadying and/or contact guard assistance as patient completes activity. Assistance may be provided throughout the activity or intermittently. 3-Partial/Moderate Assistance-helper does LESS THAN HALF the effort. [place]man lifts, holds or supports trunk or limbs, but provides less than half the effort. 2-Substantial/Maximal Assistance-helper does MORE THAN HALF the effort. [place] lifts or holds trunk or limbs and provides more than half the effort. 6-Lfrgtmpoi-mydcjy does ALL the effort. Patient does none of the effort to complete the activity. Or, the assistance of 2 or more helpers is required for the patient to complete the activity. If activity was not attempted, code reason: 7-Patient Refused. 9-Not Applicable-not attempted and the patient did not perform the activity before the current illness, exacerbation or injury. 10-Not Attempted due to Environmental Limitations-(lack of equipment, weather restraints, etc.). 88-Not Attempted due to Medical Conditions or Safety Concerns. Other Treatment Pt incontinent of bowel. Max A x2 to roll side to side to cleanse after inco ntinence. Dependent to complete toileting hygiene in bed. After therapy, pt lying in bed with call light/phone in reach. All needs met in room. OT Mcfp Goals Mcfp Goals Time Frame: Jun 25, 2022 Eating (QC): 5 Oral Hygiene (QC): 5 Toileting Hygiene (QC): 3 Shower/Bathe Self (QC): 3 Upper Body Dressing (QC): 4 Lower Body Dressing (QC): 3 On/Off Footwear (QC): 3 1=Demonstrate adherence to instructed precautions during ADL tasks. 2=Patient will verbalize/demonstrate understanding of assistive devices/modifications for ADL. 3=Patient will improve strength/tolerance for activity to enable patient to perform ADL's. OT Education/Plan Problem List/Assessment Assessment: Decreased Activ Tolerance, Decreased UE Strength, Impaired Bed Mobility, Impaired Self-Care Skills Discharge Recommendations Plan/Recommendations: Continue POC Treatment Plan/Plan of Care Patient would benefit from OT for education, treatment and training to promote independence in ADL's, mobility, safety and/or upper extremity function for ADL's. Plan of Care: ADL Retraining, Caregiver Training, Cognitive Retraining, Functional Mobility, Group Exercise/Act as Ind, UE Funct Exercise/Act, W/C Management Training Treatment Duration: Jun 25, 2022 Frequency: 3 times per week (3-5x/week) Estimated Hrs Per Day: .25 hour per day Agreement: Yes Rehab Potential: Guarded Time/GCodes Start Time: 09:00 Stop Time: 09:16 Total Time Billed (hr/min): 16 Billed Treatment Time 1 visit-ADL 1 (16 min) CALIXTO DOMÍNGUEZ Jun 06, 2022 09:19
--- NOTE | 2022-06-06 09:44 | Progress Note - Ortho ---
Progress Note Subjective Date of Exam 06/06/22 Chief Complaint POD #3 Right Intertrochanteric Femur Fracture s/p IM nailing HPI/Events since last exam some pain with weightbearing, some progress with therapy Review of Systems - Allergies: Coded Allergies: No Known Drug Allergies (Verified , 07/08/18) Home Meds Reported Medications Cholecalciferol (Vitamin D3) (Vitamin D3) 25 Mcg (1000 Unit) Capsule, 25 MCG PO DAILY, CAP 06/02/22 Paroxetine HCl (Paroxetine HCl) 30 Mg Tablet, 30 MG PO DAILY, TAB 06/02/22 Amlodipine Besylate (Amlodipine Besylate) 5 Mg Tablet, 5 MG PO BID, TAB 06/02/22 Metoprolol Succinate (Metoprolol Succinate) 25 Mg Tab.er.24h, 25 MG PO BID, TAB 06/02/22 Semaglutide (Ozempic) 0.25 Mg/0.2 Ml Pen.injctr, 0.25 MG SQ WEEK 06/02/22 Insulin Detemir (Levemir Flextouch) 100 Unit/Ml (3 Ml) Insuln.pen, 30 UNITS SQ BID 06/02/22 Ferrous Sulfate (Ferrous Sulfate) 325 Mg Tablet, 325 MG PO DAILY, TAB 01/30/20 Gabapentin (Neurontin) 300 Mg Capsule, 600 MG PO HS, CAP TAKES 2 (300MG) CAPS 01/30/20 Gabapentin (Neurontin) 300 Mg Capsule, 300 MG PO DAILY, CAP 01/30/20 Potassium Chloride (Potassium Chloride) 10 Meq Tab.er.prt, 10 MEQ PO BID 01/30/20 Multivitamin (Multivitamins) 1 Each Tablet, 1 EACH PO DAILY, TAB 11/07/19 Oxymetazoline HCl (Afrin) 0.05 % Mist, 1 SPRAY NS UD PRN for CONGESTION, EA 11/07/19 Aspirin (Aspirin EC) 81 Mg Tablet.dr, 81 MG PO DAILY, TAB 02/23/19 Furosemide (Furosemide) 20 Mg Tablet, 20 MG PO DAILY, TAB 02/23/19 Prazosin HCl (Prazosin HCl) 5 Mg Capsule, 10 MG PO HS, CAP TAKES 2 (5MG) CAPSULES 02/23/19 Atorvastatin Calcium (Atorvastatin Calcium) 80 Mg Tablet, 80 MG PO DAILY, TAB 12/09/18 Finasteride (Finasteride) 5 Mg Tablet, 5 MG PO DAILY, TAB 12/02/18 Prasugrel HCl (Prasugrel HCl) 10 Mg Tablet, 10 MG PO DAILY, TAB 12/02/18 Discontinued Reported Medications Biotin (Biotin) 1,000 Mcg Tablet, 1000 MCG PO DAILY, TAB 01/30/20 Budesonide/Formoterol Fumarate (Symbicort 160-4.5 Mcg Inhaler) 10.2 Gm Hfa.aer.ad, 2 PUFF IH BID, INHALER 01/30/20 Insulin Determir (Levemir) 1,000 Units/10 Ml Soln, 50 UNITS SQ HS, EA 11/07/19 Taqas-V-Acwnniokngesr (Beano) 150 Unit Tablet, 150 UNIT PO QID, TAB 11/07/19 Guaifenesin (Mucus Relief) 400 Mg Tablet, 400 MG PO PRN PRN for CONGESTION, TAB 11/07/19 Tramadol HCl (Tramadol HCl) 50 Mg Tablet, 50 MG PO HS PRN for PAIN-MODERATE (5- 7), TAB 11/07/19 Fish Oil/Borage/Flax/Om3,6,9#1 (Csjbcpov-Aqxm-Lkkxqk Oil Sftgl) 400 Mg Capsule, 1 CAP PO BID, CAP 02/23/19 Lisinopril (Lisinopril) 10 Mg Tablet, 10 MG PO DAILY, TAB LAST FILLED 08-29-2019 #90 02/23/19 Sucralfate (Sucralfate) 1 Gm Tablet, 1 GM PO ACHS, TAB 02/23/19 Paroxetine HCl (Paroxetine ER) 12.5 Mg Tab.er.24h, 12.5 MG PO DAILY, TAB 02/23/19 Paroxetine HCl (Paroxetine HCl) 37.5 Mg Tab.er.24h, 37.5 MG PO HS, TAB 02/23/19 Acetaminophen (Tylenol Extra Strength) 500 Mg Tablet, 500-1000 MG PO Q6H PRN for PAIN-MILD, TAB 12/09/18 Caffeine (Caffeine) 200 Mg Tablet, 200-400 MG PO BID PRN for DROWSINESS, TAB 12/09/18 Diphenhydramine HCl (Benadryl Allergy) 25 Mg Tablet, 50 MG PO HS PRN for ALLERGIES/ANXIETY, TAB 12/09/18 Bisacodyl (Bisacodyl) 5 Mg Tablet.dr, 10 MG PO DAILY PRN for CONSTIPATION-4TH LINE, TAB 12/09/18 Albuterol Sulfate (Proventil Hfa) 6.7 Gm Hfa.aer.ad, 2 PUFF INH Q6H PRN for SHORTNESS OF BREATH, INHALER 12/02/18 Pantoprazole Sodium (Pantoprazole Sodium) 40 Mg Tablet.dr, 40 MG PO BID, TAB 12/02/18 Umeclidinium [place] (Incruse Ellipta) 62.5 Mcg Blst.w.dev, 1 PUFF INH DAILY, INHALER 07/06/18 Discontinued Scripts Metoprolol Succinate (Metoprolol Succinate) 25 Mg Tab.er.24h, 50 MG PO DAILY, #1 Prov:JOHN VILLALPANDO MD 06/02/22 Ondansetron (Ondansetron Odt) 4 Mg Tab.rapdis, 4 MG PO Q6H PRN for NAUSEA/VOMITING, #20 TAB 0 Refills Prov:ADE COLLINS 10/17/21 Hydrocodone/Acetaminophen (Hydrocodone-Acetamin 7.5-325) 1 Each Tablet, 1 EACH PO Q4H PRN for PAIN-BREAKTHROUGH, #14 TAB 0 Refills Prov:ADE COLLINS 10/17/21 Ondansetron (Ondansetron Odt) 8 Mg Tab.rapdis, 8 MG PO Q6H PRN for NAUSEA/VOMITING, #20 TAB Prov:KIARA CABALLERO DATABASE DBA 09/18/21 Ondansetron (Ondansetron Odt) 4 Mg Tab.rapdis, 4 MG PO Q6H PRN for NAUSEA/VOMITING, #8 TAB 0 Refills Prov:ADE COLLINS 08/30/20 Metoprolol Succinate (Metoprolol Succinate) 100 Mg Tab.er.24h, 100 MG PO DAILY@2100, #30 TAB Prov:GENNA DUMONT MD 02/01/20 Objective Exam R Hip: Incisions C/D/I, +DF of ankle, no s/s of dvt Vital Signs Vital Signs Date Time Temp Pulse Resp B/P (MAP) Pulse Ox O2 Delivery O2 Flow Rate FiO2 06/06/22 07:39 36.8 77 18 117/56 (76) 98 Nasal Cannula 2.00 06/06/22 04:00 36.9 76 16 128/64 (85) 97 Nasal Cannula 2.00 06/06/22 00:00 37.1 79 17 144/62 (89) 96 Nasal Cannula 06/05/22 20:00 Nasal Cannula 1.50 06/05/22 19:11 37.3 82 20 147/66 (93) 96 Nasal Cannula 1.50 06/05/22 15:19 37.5 96 20 147/61 (89) 98 Nasal Cannula 1.50 06/05/22 13:58 37.0 101 95 06/05/22 11:43 37.0 101 20 130/62 95 Room Air 06/05/22 11:38 37.0 102 18 134/63 (86) 95 Nasal Cannula 2.00 06/05/22 11:38 37.0 102 18 134/63 (86) 95 Nasal Cannula 2.00 06/05/22 11:18 37.0 101 20 134/63 95 Nasal Cannula 2.50 06/05/22 10:03 97 Nasal Cannula 2.00 I & O 06/06/22 07:00 Intake Total 3340 ml Output Total 2150 ml Balance 1190 ml Lab Results Laboratory Tests 06/05/22 11:26: Glucometer 202H 06/05/22 15:27: Glucometer 225H 06/05/22 20:19: Glucometer 196H 06/06/22 05:46: Glucometer 86 06/06/22 07:55: White Blood Count 8.4, Red Blood Count 2.92L, Hemoglobin 8.2L, Hematocrit 25L, Mean Corpuscular Volume 86, Mean Corpuscular Hemoglobin 28, Mean Corpuscular Hemoglobin Concent 33, Red Cell Distribution Width 16.1H, Platelet Count 168, Mean Platelet Volume 10.0, Immature Granulocyte % (Auto) 1, Neutrophils (%) (Auto) 79H, Lymphocytes (%) (Auto) 10L, Monocytes (%) (Auto) 7, Eosinophils (%) (Auto) 3, Basophils (%) (Auto) 0, Neutrophils # (Auto) 6.6, Lymphocytes # (Auto) 0.9L, Monocytes # (Auto) 0.6, Eosinophils # (Auto) 0.2, Basophils # (Auto) 0.0, Immature Granulocyte # (Auto) 0.1, Sodium Level 138, Potassium Level 4.1, Chloride Level 107, Carbon Dioxide Level 22, Anion Gap 9, Blood Urea Nitrogen 17, Creatinine 1.68H, Estimat Glomerular Filtration Rate 43, BUN/Creatinine Ratio 10, Glucose Level 82, Calcium Level 7.3L, Corrected Calcium 8.6, Total Bilirubin 1.3H, Aspartate Amino Transf (AST/SGOT) 53H, Alanine Aminotransferase (ALT/SGPT) 24, Alkaline Phosphatase 220H, Total Protein 4.5L, Albumin 2.4L Microbiology 06/01/22 MRSA Screen - Final, Complete MRSA not isolated Assessment and Plan Assessment Right Intertrochanteric Femur Fracture s/p IM nailing Problem List Right Intertrochanteric Femur Fracture s/p IM nailing Plan PT/OT DVT Prophylaxis Final Diagonsis Right Intertrochanteric Femur Fracture s/p IM nailing Level of the visit: Level 3 (postop global) SACHIN CLAY MD Jun 06, 2022 09:44
[2022-06-06] MEDS: ASPIRIN E.C. 81 MG (ECOTRIN) TAB PO SCH (09:53)
[2022-06-06] MEDS: FERROUS SULF 325 MG (IRON) TAB PO SCH (09:54)
[2022-06-06] MEDS: amLODIPine 5 MG (NORVASC) TAB PO SCH ×2 (09:54→21:27)
[2022-06-06] MEDS: GABAPENTIN 300 MG (NEURONTIN) CAP PO SCH (09:54)
[2022-06-06] MEDS: PARoxetine 20 MG (PAXIL) TAB PO SCH (09:54)
[2022-06-06] MEDS: FUROSEMIDE 20 MG (LASIX) TAB PO SCH (09:54)
[2022-06-06] MEDS: PRASUGREL 10 MG (EFFIENT) TABLET PO SCH (09:54)
[2022-06-06] MEDS: FINASTERIDE (PROSCAR) 5 MG TAB PO SCH (09:54)
[2022-06-06] MEDS: meTOprolol SUCCINATE 100 MG (TOPROL XL) TAB PO SCH (09:55)
[2022-06-06] MEDS: PANTOPRAZOLE 40 MG (PROTONIX) TAB PO SCH (09:55)
--- NOTE | 2022-06-06 10:08 | Physical Therapy Progress Note ---
Therapy Progress Note Patient having a colonoscopy on this date and has had multiple episodes of bowel incontinence due to prep. PT to attempt later today or tomorrow YONG Lazaro PT Jun 06, 2022 10:08
[2022-06-06 11:31] VITALS: BP 115/57
[2022-06-06] MEDS ORDERED: LACTATED RINGERS 1,000 ML IV STA (11:35)
[2022-06-06] MEDS ORDERED: LIDOCAINE JELLY 2% 6 ML SYRINGE MM PRN (11:45)
[2022-06-06] MEDS ORDERED: HURRICAINE EXT TUBE (BENZOCAINE) XX PRN (11:45)
[2022-06-06] MEDS ORDERED: LACTATED RINGERS 1,000 ML IV ONE (12:18)
[2022-06-06] MEDS ORDERED: PROPOFOL INJECTION 50 ML IV ONE (12:21)
[2022-06-06] MEDS ORDERED: KETAMINE 50 MG/5 ML SYRINGE ONE (12:21)
[2022-06-06] MEDS ORDERED: HURRICAINE EXT TUBE (BENZOCAINE) ONE (12:23)
[2022-06-06] MEDS ORDERED: LIDOCAINE JELLY 2% 6 ML SYRINGE ONE (12:23)
--- NOTE | 2022-06-06 13:00 | Progress Note ---
ANTHONY IBANEZ 06/06/22 1300: Subjective Subjective/Events-last exam Salomon Nicholas, 85 yo M, admitted for right hip fracture and hyperglycemia on 06/[address] [facility] surg floor post op. Pt is laying in bed this morning seemly tired. He is oriented to self, time, and place. Reports that he is anxious about his procedure today. Would like food and something to drink but knows he cannot have anything before colonoscopy and EGD. Mentions he still has not had a bowel movement. Physical therapy has been working with him to sit up in a chair while he eats and stand. States his generalized pain today is 2/10. Notes thoughts of suicide. Denies chest pain, shortness of breath, headache, fever, chills, nausea, vomiting Objective Exam Last Set of Vital Signs Vital Signs Date Time Temp Pulse Resp B/P (MAP) Pulse Ox O2 Delivery O2 Flow Rate FiO2 06/06/22 11:31 36.8 75 18 115/57 (76) 96 Nasal Cannula 1.50 06/04/22 04:00 0 Capillary Refill : Less Than 3 SecondsLess Than 3 Seconds I&O Intake and Output 06/06/22 00:00 Intake Total 3390 ml Output Total 2100 ml Balance 1290 ml Intake Oral 1390 ml IV Total 2000 ml Output Urine Total 2100 ml General: Alert, Cooperative, No Acute Distress HEENT: PERRLA, EOMI Lungs: Clear to Auscultation, Normal Air Movement Heart: Regular Rate, Normal S1, Normal S2 Abdomen: Normal Bowel Sounds, Soft, No Tenderness Extremities: No Edema, Normal Pulses, No Tenderness/Swelling Psych/Mental Status: Other (Anxiety, Thought of suicide) Results/Procedures Lab Laboratory Tests 06/05/22 15:27: Glucometer 225H 06/05/22 20:19: Glucometer 196H 06/06/22 05:46: Glucometer 86 06/06/22 07:55: White Blood Count 8.4, Red Blood Count 2.92L, Hemoglobin 8.2L, Hematocrit 25L, Mean Corpuscular Volume 86, Mean Corpuscular Hemoglobin 28, Mean Corpuscular Hemoglobin Concent 33, Red Cell Distribution Width 16.1H, Platelet Count 168, Mean Platelet Volume 10.0, Immature Granulocyte % (Auto) 1, Neutrophils (%) (Auto) 79H, Lymphocytes (%) (Auto) 10L, Monocytes (%) (Auto) 7, Eosinophils (%) (Auto) 3, Basophils (%) (Auto) 0, Neutrophils # (Auto) 6.6, Lymphocytes # (Auto) 0.9L, Monocytes # (Auto) 0.6, Eosinophils # (Auto) 0.2, Basophils # (Auto) 0.0, Immature Granulocyte # (Auto) 0.1, Sodium Level 138, Potassium Level 4.1, Chloride Level 107, Carbon Dioxide Level 22, Anion Gap 9, Blood Urea Nitrogen 17, Creatinine 1.68H, Estimat Glomerular Filtration Rate 43, BUN/Creatinine Ratio 10, Glucose Level 82, Calcium Level 7.3L, Corrected Calcium 8.6, Total Bilirubin 1.3H, Aspartate Amino Transf (AST/SGOT) 53H, Alanine Aminotransferase (ALT/SGPT) 24, Alkaline Phosphatase 220H, Total Protein 4.5L, Albumin 2.4L 06/06/22 11:03: Glucometer 85 06/06/22 11:42: Glucometer 82 Microbiology 06/05/22 MRSA Screen - Final, Complete MRSA not isolated Laboratory Tests Test 06/05/22 15:27 06/05/22 20:19 06/06/22 05:46 06/06/22 07:55 Range/Units Glucometer 225 H 196 H 86 70-110 MG/DL White Blood Count 8.4 4.3-11.0 10^3/uL Red Blood Count 2.92 L 4.30-5.52 10^6/uL Hemoglobin 8.2 L 13.3-17.7 g/dL Hematocrit 25 L 40-54 % Mean Corpuscular Volume 86 80-99 fL Mean Corpuscular Hemoglobin 28 25-34 pg Mean Corpuscular Hemoglobin Concent 33 32-36 g/dL Red Cell Distribution Width 16.1 H 10.0-14.5 % Platelet Count 168 130-400 10^3/uL Mean Platelet Volume 10.0 9.0-12.2 fL Immature Granulocyte % (Auto) 1 % Neutrophils (%) (Auto) 79 H 42-75 % Lymphocytes (%) (Auto) 10 L 12-44 % Monocytes (%) (Auto) 7 0-12 % Eosinophils (%) (Auto) 3 0-10 % Basophils (%) (Auto) 0 0-10 % Neutrophils # (Auto) 6.6 1.8-7.8 10^3/uL Lymphocytes # (Auto) 0.9 L 1.0-4.0 10^3/uL Monocytes # (Auto) 0.6 0.0-1.0 10^3/uL Eosinophils # (Auto) 0.2 0.0-0.3 10^3/uL Basophils # (Auto) 0.0 0.0-0.1 10^3/uL Immature Granulocyte # (Auto) 0.1 0.0-0.1 10^3/uL Sodium Level 138 135-145 MMOL/L Potassium Level 4.1 3.6-5.0 MMOL/L Chloride Level 107 98-107 MMOL/L Carbon Dioxide Level 22 21-32 MMOL/L Anion Gap 9 5-14 MMOL/L Blood Urea Nitrogen 17 7-18 MG/DL Creatinine 1.68 H 0.60-1.30 MG/DL Estimat Glomerular Filtration Rate 43 BUN/Creatinine Ratio 10 Glucose Level 82 70-105 MG/DL Calcium Level 7.3 L 8.5-10.1 MG/DL Corrected Calcium 8.6 8.5-10.1 MG/DL Total Bilirubin 1.3 H 0.1-1.0 MG/DL Aspartate Amino Transf (AST/SGOT) 53 H 5-34 U/L Alanine Aminotransferase (ALT/SGPT) 24 0-55 U/L Alkaline Phosphatase 220 H 40-136 U/L Total Protein 4.5 L 6.4-8.2 GM/DL Albumin 2.4 L 3.2-4.5 GM/DL Test 06/06/22 11:03 06/06/22 11:42 Range/Units Glucometer 85 82 70-110 MG/DL Radiology Chest x-ray: Impression: Mild blunting the left lateral aspect which may relate to soft tissue overlap, small effusion, infiltrate, and/or atelectasis. Hip/pelvis x-ray: Impression: Displaced intertrochanteric right hip fracture. Head CT: Impression: . No identified acute intracranial abnormality. Nonspecific complete opacification in the right sphenoid sinus which is also present on January 27, 2020. Procedures Intramedullary Nailing of Right Intertrochanteric Femur Fracture on 06/03/22 Colonoscopy and Esophagogastroduodenoscopy on 06/06/22 Assessment/Plan Assessment/Plan Admission Dx Right hip fracture, Hyperglycemia Assessment & Plan (1) Diabetes mellitus, type 2 Status: Resolved Assessment & Plan: D/c insulin drip. Manage diet for diabetic patient. Continue glucose monitoring. 06/06: Added long acting insulin. ADA diet and glucose monitoring. (2) BPH (benign prostatic hyperplasia) Status: Chronic Assessment & Plan: Continue terazosin, prazosin, other home meds (3) COPD (chronic obstructive pulmonary disease) Status: Chronic Assessment & Plan: Remain on nasal canula (4) Acute kidney injury superimposed on chronic kidney disease Status: Acute Assessment & Plan: 06/06: Creat is 1.68 (5) Peripheral vascular disease Status: Chronic Assessment & Plan: continue home meds (6) Coronary artery disease Status: Chronic Assessment & Plan: continue home meds (7) Delirium due to general medical condition Status: Resolved (8) Fall on same level Status: Acute (9) DKA, type 2 Status: Acute Assessment & Plan: 06/04: beta-hydroxybutyrate is 0.17 Qualifiers: Qualified Codes: E11.10 - Type 2 diabetes mellitus with ketoacidosis without coma (10) Hyperkalemia Status: Resolved Assessment & Plan: 06/04: K is 4.3 (11) Primary hypertension Status: Chronic Assessment & Plan: 06/04: Restart home med amlodipine (12) Mixed hyperlipidemia Status: Chronic Assessment & Plan: continue home meds (13) Hip fracture, right Status: Acute Assessment & Plan: Surgery on 06/03. Start physical therapy. 06/04: continue with PT with goal of ambulation. Move to med surg floor from ICU. Qualifiers: Qualified Codes: S72.001A - Fracture of unspecified part of neck of right femur, initial encounter for closed fracture (14) Ischemic cardiomyopathy Status: Chronic (15) Chronic combined systolic and diastolic congestive heart failure Status: Chronic (16) Coronary artery disease without angina pectoris Status: Chronic (17) Anemia of chronic disease Status: Chronic Assessment & Plan: 06/05: Hgb on admission was 12.5. Today is 6.9. Type and screen ordered. Consult surgery to schedule EGD and Colonoscopy to search for GI bleed. 06/06: Hgb is 8.2. Colonoscopy and EGD today. (18) Liver enzyme elevation Status: Acute Assessment & Plan: 06/06: Hepatitis panel ordered Supervisory-Addendum Brief Verification & Attestation Participated in pt care: history, physical Personally performed: supervision of care Care discussed with: Medical Student Procedures: supervised JOHN VILLALPANDO MD 06/07/22 0917: Supervisory-Addendum Brief Verification & Attestation Pt was already at EGD/[facility] before I saw him, afterward I saw him in the ICU as he was sent there post-procedure due to hypoxia. He denied concerns and denied shortness of breath. His lung were clear, heart RRR, abdomen soft/nontender/nondistended and he had no peripheral edema. I directed the plan of care as documented by the medical student, and at this time care has been handed off to Dr. Huff for the weekend. ANTHONY IBANEZ Jun 06, 2022 13:00 JOHN VILLALPANDO MD Jun 07, 2022 09:17
[2022-06-06] MEDS ORDERED: METHYLENE BLUE 0.5% (PROVAYBLUE) 50 mg/10 ml vial IV ONE ×2 (13:03→13:30)
--- NOTE | 2022-06-06 13:13 | Progress Note-Post Operative ---
Post-Operative Progess Note Surgeon (s)/Access Consultant (s) Surgeon NICK DURAN MD Access Consultant: none Pre-Operative Diagnosis anemia, GERD, absence from colonoscopy Post-Operative Diagnosis reflux esophagitis(grade C), small HH(2cm), moderate gastritis. chronic stage 2 ext and int hemorrhoids. Procedure & Operative Findings Date of Procedure 06/06/22 Procedure Performed/Findings EGD with bx. Colonoscopy. Anesthesia Type mac Estimated Blood Loss Estimated blood loss (mL): minimal Specimens/Packing Specimens Removed ge jxn, antrum NICK DURAN MD Jun 06, 2022 13:13
--- NOTE | 2022-06-06 13:23 | Physical Therapy Progress Note ---
Therapy Progress Note Patient unavailable due to procedure. PT will resume in YONG Lazaro PT Jun 06, 2022 13:23
[2022-06-06 13:35] VITALS: BP 124/59
[2022-06-06] MEDS ORDERED: METHYLENE BLUE 0.5% (PROVAYBLUE) 50 mg/10 ml vial IV NR (15:00)
--- NOTE | 2022-06-06 15:05 | Tele-ICU Progress Note ---
Subjective Date Seen by a Provider: Jun 06, 2022 Time Seen by a Provider: 15:05 Subjective/Events-last exam (Tele-ICU Physician , Progress Note ) Available chart/ vitals / labs / Images reviewed Video assessment done using teleICU camera, rest of exam as per RN Discussed with RN Events overnight : Afebrile hemodynamically stable Respiratory - 1-2 I/O = Drips: Pressors- no Consultants: Hospital course: (06/01) 71 y M found at home on floor after fall c/o right hip and leg pain . patient with noted right hip fx, ? DKA, hyperkalemia , hyponatremia and leukocytosis 06/02 - closed AG 06/03- s/p ORIF, off insulin gtt 06/06 - back to ICU after EGD with Methemoglobinemia after benzocaine /lidocaine A/P Methemoglobinemia ( presumed based on symptoms , no ABG availabe ). A cquired ( drug-induced)- presumed benzocaine /lidocaine ( no notes yet in EMR , report from RN , not anaestesiology ) methylene blue 50 mg given on endo suit ( less then 1 mg/kg ) - patient is on 15l NR mask , but Sao2 still low - will give another does of 50 IV now -will measure metHb level on ABG -may need to repeat methylen blue ( as per weight - can get up to 200 mg if necessary, BUT WILL TRY LOWER DOSES with renal insufficiency ( asked pharmacy to confirm with anaestesiology course of event during EGD - consider to add benzocaine /lidocaine to allergy list Anemia - s/p EGD/c-sc 06/06 - reflux esophagitis(grade C), small HH(2cm), moderate gastritis.chronic stage 2 ext and int hemorrhoids. H/o CHF, CAD , mild to moderate AR -compensated -ECHO 06/02/22- EF 50% , gr 1 dst dsfn, RVSP 45 mmHg - cards follow Right intertrochanteric femur fracture - s/p ORIF 06/03 - pain conrtrolled Hypoxia - mostly nocturnal - ? CARLA - will stop IVF and follow ALAN/CKD - improved , follow Dm II - ASS Lines : periph , (Central Line Necessity Reviewed) Santiago: OG: Nutrition: po Analgesia: Anxiety/ delirium VTE Prophylaxis: scd- Stress Ulcer Prophylaxis: Plans in collaboration with bedside consultants and IM MDs. Discussed with RN to reach out if any questions or concerns A total of 35 minutes of critical care time was devoted to this patient today, required to treat and/or prevent further deterioration of critical care condition ( as above ) . Sepsis Event Evaluation Height, Weight, BMI Height: 5'8.00" Weight: 192lbs. 0.0oz. 87.393950yu; 35.00 BMI Method:Stated Exam Exam Patient acknowledged, consented, and participated in this virtual visit which was conducted using real time audio/video Vital Signs Date Time Temp Pulse Resp B/P (MAP) Pulse Ox O2 Delivery O2 Flow Rate FiO2 06/06/22 14:00 83 146 146/70 (95) 70 Non Rebreather 15.00 06/06/22 13:35 83 18 85 Non Rebreather 10.00 06/06/22 11:31 36.8 75 18 115/57 (76) 96 Nasal Cannula 1.50 06/06/22 08:00 Room Air 06/06/22 07:39 36.8 77 18 117/56 (76) 98 Nasal Cannula 2.00 06/06/22 04:00 36.9 76 16 128/64 (85) 97 Nasal Cannula 2.00 06/06/22 00:00 37.1 79 17 144/62 (89) 96 Nasal Cannula 06/05/22 20:00 Nasal Cannula 1.50 06/05/22 19:11 37.3 82 20 147/66 (93) 96 Nasal Cannula 1.50 06/05/22 15:19 37.5 96 20 147/61 (89) 98 Nasal Cannula 1.50 I & O 06/06/22 07:00 Intake Total 3340 ml Output Total 2150 ml Balance 1190 ml Height & Weight Height: 5'8.00" Weight: 192lbs. 0.0oz. 87.205702tg; 35.00 BMI Method:Stated General Appearance: No Apparent Distress, Chronically ill HEENT: Pale Conjunctivae (L), Pale Conjunctivae (R) Neck: Full Range of Motion, Normal Inspection, Non Tender Respiratory: Chest Non Tender, Lungs Clear, Normal Breath Sounds, No Accessory Muscle Use, No Respiratory Distress Cardiovascular: Regular Rate, Rhythm, No Edema, No Gallop, No JVD, No Murmur Capillary Refill: Less Than 3 Seconds Peripheral Pulses: 4+ Radial Pulses (R), 4+ Radial Pulses (L) Extremity: Swelling (External rotation and foreshortening of the right leg extremities are warm peripheral pulses were not apparent. No ulceration noted. No significant bruising minimal swelling of the right thigh and groin incisions and popliteal incisions well-healed her text) Neurologic/Psychiatric: Sensory Deficit (Involving the feet) Results Lab Laboratory Tests 06/05/22 06:26 06/06/22 07:55 Assessment/Plan Assessment/Plan 1 SALIMA CHANG MD Jun 06, 2022 15:05
[2022-06-06 16:12] LABS: ABG BASE EXCESS 0.6 MMOL/L (-2.5-2.5); ABG OXYGEN SATURATION 66 % (94-100); ABG PCO2 43 MMHG (35-45); ABG PH 7.39 (7.37-7.43); ABG TCO2 26.3 MMOL/L (21.0-31.0)
[2022-06-06 16:13] LABS: ABG PO2 33 MMHG (79-93)
[2022-06-06 16:14] LABS: ALLENS TEST POSITIVE; INSPIRED O2 10 L; VENTILATOR NO
[2022-06-06 16:15] LABS: PATIENT TEMP 36.8
--- NOTE | 2022-06-06 20:51 | OPERATIVE REPORT ---
DATE OF SERVICE: 06/06/2022 ADMITTING PHYSICIAN: Keara Moore MD PREOPERATIVE DIAGNOSIS: Anemia. POSTOPERATIVE DIAGNOSES: Reflux esophagitis, Oscoda grade C, small hiatal hernia 2 cm in size, moderate gastritis. No active bleeding. Mild chronic stage II external and internal hemorrhoids. No active colonic or rectal bleeding. PROCEDURE: EGD with biopsy, colonoscopy. SURGEON: Nick Duran MD. ANESTHESIA: Monitored anesthesia care. ESTIMATED BLOOD LOSS: Minimal. FINDINGS: Same as postoperative diagnosis. DISPOSITION: The patient tolerated the procedure well. INDICATIONS: The patient is a 71-year-old male who presented with fatigue, confusion and shortness of breath. He had fallen at home and had significant right hip pain. He was found to have a right intertrochanteric fracture requiring IM vasquez placement. His initial hemoglobin was stable, however each subsequent day his Hb had dropped to the mid-6 range. Upon further questioning, he does report history of gastroesophageal reflux disease. He does not report any red blood per rectum nor any dark tarry stools. He also does not report having a colonoscopy done in the past. DESCRIPTION OF PROCEDURE: The patient was brought to the endoscopy suite, laid in the left lateral decubitus position. After adequate IV pain and sedative medications and monitored anesthesia care, the mouthpiece was applied. The endoscope was placed in the mouth, visualizing the pharynx and hypopharyngeal region. Endoscope was then gently intubated into the esophageal opening and esophagus insufflated. The endoscope was then advanced through the first, second and third portions of esophagus at the level of the GE junction; reflux esophagitis, Oscoda grade C identified. There were no ulcerations or strictures identified in this region as well as no active bleeding. A biopsy was taken with forceps with visualization of good hemostasis. The endoscope was then advanced into the stomach and endoscope retroflexed, visualizing a small hiatal hernia 2 cm in size. There was a moderate severity gastritis towards the stomach antrum. There were no formal ulcerations, polyps, or any neoplasms or any active bleeding sources. A biopsy was taken of the antrum to rule out H. pylori with visualization of good hemostasis. The endoscope was then advanced over. A biopsy was taken of the antrum to rule out H. pylori with visualization of good hemostasis. The endoscope was then advanced to the pylorus and the first and second portion of the duodenum with no ulcerations or any bleeding identified. The endoscope was then slowly withdrawn while taking a second look and suctioning of residual air with no additional findings. A digital rectal examination was performed, which revealed chronic stage II external and internal hemorrhoids, not actively edematous nor inflamed and no bleeding. Normal sphincter tone was felt and there were no palpable masses. Prostate gland was palpable and appeared normal. The endoscope was then intubated into the anus and rectum gently insufflated. The endoscope was then advanced through the valves of Quiles of the rectum with no polyps or any neoplasms identified. Through the sigmoid colon, no diverticulosis was identified. The endoscope was then advanced through the remainder of the descending, transverse and ascending colon to the cecum were no polyps or any neoplasms identified as well as no mucosal inflammatory changes, or any active bleeding. The endoscope was then slowly withdrawn while taking a second look and suctioning of residual air with no additional findings. The patient tolerated the procedure well. We feel that the likely cause of his anemia was chronically mediated likely from gastritis. We will recommend the necessary lifestyle and dietary accommodation including avoidance of caffeinated beverages, spicy, greasy and acidic foods as well as smaller more frequent meals and avoidance of eating at night. 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 He will also need to follow high-fiber diet with a fiber supplement with at least 30 grams of fiber to promote soft stools on a daily basis to promote colonic health in the prevention of benign and malignant diseases. Job ID: [id number] DocumentID: [id number] Dictated Date: 06/06/2022 13:07:39 [place] Operator Date: 06/06/2022 20:50:33 Dictated By: NICK DURAN MD [facility]
[2022-06-06 21:11] LABS: HEPATITIS C ANTIBODY C Non-Reactive (Non-Reactive)
[2022-06-06] MEDS: TERAZOSIN 5 MG (HYTRIN) CAPSULE PO SCH (21:27)
[2022-06-06] MEDS: GABAPENTIN 600 MG (NEURONTIN) TAB PO SCH (21:27)
[2022-06-07 03:56] LABS: HEMATOCRIT 25 % (40-54); MEAN CORPUSCULAR HEMOGLOBIN 28 pg (25-34); MEAN CORPUSCULAR HGB CONC 32 g/dL (32-36); MEAN CORPUSCULAR VOLUME 89 fL (80-99); PLATELET COUNT 180 10^3/uL (130-400)
[2022-06-07 04:21] LABS: ALBUMIN 2.5 GM/DL (3.2-4.5); BILIRUBIN,TOTAL 1.4 MG/DL (0.1-1.0); CALCIUM 7.9 MG/DL (8.5-10.1); CREATININE SERUM 1.58 MG/DL (0.60-1.30); TOTAL PROTEIN 5.3 GM/DL (6.4-8.2)
[2022-06-07] MEDS: inSUlin ASPART (NovoLOG) 1 UNIT/0.01 ML (CHARGE PER UNIT) SC SCH ×4 (05:53→20:55)
--- NOTE | 2022-06-07 06:12 | Progress Note - Hospitalist ---
Subjective HPI/CC On Admission Date Seen by Provider: Jun 07, 2022 Time Seen by Provider: 08:00 Mr. Nicholas is a 71-year-old white male who apparently fell in his bathroom earlier today. He was able to crawl to his bedroom and call relatives complaining about significant right hip pain. He was brought to the emergency room where he was noted to have a right intertrochanteric hip fracture. He was confused but surprisingly not comatose despite the fact that his blood sugar was nearly 1300 with no reported past history of diabetes and no record of any diabetic medication. He was not acidotic but did exhibit signs of dehydration. He was oriented to person only and somewhat slow to respond able to answer simple questions but a poor historian. He denied chest pain shortness of breath only reporting hip pain when he tried to move his right leg. Past medical history is significant for ischemic cardiomyopathy with reported ejection fraction of 30% on echo referenced by Dr. Chandra in 2019. At that time he had evidence for significant peripheral vascular disease with claudication underwent stenting of the right SFA but subsequently has had what appears to be several lower extremity bypass surgeries. These were done elsewhere and he did not think that he had had any stents placed in the last year but again his history is suspect. Subjective/Events-last exam Much improved following a resp insuff in endoscopy lab No pain reported Moving down to floor today O2 ok on 1 L Review of Systems General: Fatigue, Malaise Objective Exam Vital Signs Vital Signs Date Time Temp Pulse Resp B/P (MAP) Pulse Ox O2 Delivery O2 Flow Rate FiO2 06/07/22 15:56 37.0 83 20 126/61 (82) 95 Room Air 06/07/22 13:18 1.00 06/07/22 07:39 32 Capillary Refill : Less Than 3 SecondsLess Than 3 Seconds General Appearance: No Apparent Distress, WD/WN, Chronically ill Respiratory: Lungs Clear, Normal Breath Sounds Cardiovascular: Regular Rate, Rhythm Neurologic/Psychiatric: Alert, Oriented x3 Results/Procedures Lab Laboratory Tests 06/07/22 03:34 Patient resulted labs reviewed. Assessment/Plan Assessment and Plan Assess & Plan/Chief Complaint (1) Diabetes mellitus, type 2 Status: Resolved Assessment & Plan: D/c insulin drip. Manage diet for diabetic patient. Continue glucose monitoring. 06/06: Added long acting insulin. ADA diet and glucose monitoring. (2) BPH (benign prostatic hyperplasia) Status: Chronic Assessment & Plan: Continue terazosin, prazosin, other home meds (3) COPD (chronic obstructive pulmonary disease) Status: Chronic Assessment & Plan: Remain on nasal canula (4) Acute kidney injury superimposed on chronic kidney disease Status: Acute Assessment & Plan: 06/06: Creat is 1.68 (5) Peripheral vascular disease Status: Chronic Assessment & Plan: continue home meds (6) Coronary artery disease Status: Chronic Assessment & Plan: continue home meds (7) Delirium due to general medical condition Status: Resolved (8) Fall on same level Status: Acute (9) DKA, type 2 Status: Acute Assessment & Plan: 06/04: beta-hydroxybutyrate is 0.17 Qualifiers: Qualified Codes: E11.10 - Type 2 diabetes mellitus with ketoacidosis without coma (10) Hyperkalemia Status: Resolved Assessment & Plan: 06/04: K is 4.3 (11) Primary hypertension Status: Chronic Assessment & Plan: 06/04: Restart home med amlodipine (12) Mixed hyperlipidemia Status: Chronic Assessment & Plan: continue home meds (13) Hip fracture, right Status: Acute Assessment & Plan: Surgery on 06/03. Start physical therapy. 06/04: continue with PT with goal of ambulation. Move to med surg floor from ICU. Qualifiers: Qualified Codes: S72.001A - Fracture of unspecified part of neck of right femur, initial encounter for closed fracture (14) Ischemic cardiomyopathy Status: Chronic (15) Chronic combined systolic and diastolic congestive heart failure Status: Chronic (16) Coronary artery disease without angina pectoris Status: Chronic (17) Anemia of chronic disease Status: Chronic Assessment & Plan: 06/05: Hgb on admission was 12.5. Today is 6.9. Type and screen ordered. Consult surgery to schedule EGD and Colonoscopy to search for GI bleed. 06/06: Hgb is 8.2. Colonoscopy and EGD today. (18) Liver enzyme elevation Status: Acute Assessment & Plan: 06/06: Hepatitis panel ordered Critical Care Critically Ill Patient LAODARREN DAVILAMarvin OBREIN Jun 07, 2022 06:12
[2022-06-07 07:39] VITALS: BP 121/65
--- NOTE | 2022-06-07 08:30 | Anesthesia-General Post-Op ---
MAC Patient Condition Mental Status/LOC: Same as Preop Cardiovascular: Satisfactory Nausea/Vomiting: Absent Respiratory: Satisfactory (SpO2 95% on oxygen) Pain: Controlled Complications: Absent Post Op Complications Complications None Follow Up Care/Instructions Patient Instructions None needed. Anesthesiology Discharge Order Discharge Order Patient is doing well, no complaints, stable vital signs, no apparent adverse anesthesia problems. No complications reported per nursing. SACHIN SOLANO CRNA Jun 07, 2022 08:30
[2022-06-07] MEDS: meTOprolol SUCCINATE 100 MG (TOPROL XL) TAB PO SCH (08:39)
[2022-06-07] MEDS: FINASTERIDE (PROSCAR) 5 MG TAB PO SCH (08:39)
[2022-06-07] MEDS: ASPIRIN E.C. 81 MG (ECOTRIN) TAB PO SCH (08:39)
[2022-06-07] MEDS: PRASUGREL 10 MG (EFFIENT) TABLET PO SCH (08:39)
[2022-06-07] MEDS: GABAPENTIN 300 MG (NEURONTIN) CAP PO SCH (08:39)
[2022-06-07] MEDS: PARoxetine 20 MG (PAXIL) TAB PO SCH (08:39)
[2022-06-07] MEDS: amLODIPine 5 MG (NORVASC) TAB PO SCH ×2 (08:40→20:54)
[2022-06-07] MEDS: FERROUS SULF 325 MG (IRON) TAB PO SCH (08:40)
[2022-06-07] MEDS: PANTOPRAZOLE 40 MG (PROTONIX) TAB PO SCH (08:40)
[2022-06-07] MEDS: FUROSEMIDE 20 MG (LASIX) TAB PO SCH (08:40)
--- NOTE | 2022-06-07 09:35 | Cardiology Progress Note ---
Subjective Date Seen by Provider: Jun 07, 2022 Time Seen by Provider: 09:34 Subjective/Events-last exam Patient was seen at bedside, laying down comfortably, feeling better. Review of Systems General: No Chills, No Night Sweats; Fatigue; No Malaise, No Appetite, No Other HEENT: No Head Aches, No Visual Changes, No Eye Pain, No Ear Pain, No Dysphasia, No Sinus Congestion, No Post Nasal Drip, No Sore Throat, No Other Pulmonary: No Dyspnea, No Cough, No Pleuritic Chest Pain, No Other Cardiovascular: No: Chest Pain, Palpitations, Orthopnea, Paroxysmal Noc. Dyspnea, Edema, Lt Headedness, Other Objective-Cardiology Exam Last Set of Vital Signs Vital Signs 06/07/22 06/07/22 07:39 09:00 Temp 36.7 Pulse 99 Resp 13 B/P (MAP) 124/57 (79) Pulse Ox 96 O2 Delivery High Flow N/C O2 Flow Rate 1.00 FiO2 32 I&O Intake and Output 06/07/22 00:00 Intake Total 1000 ml Output Total 575 ml Balance 425 ml Intake Oral 1000 ml Output Urine Total 575 ml # Voids 6 # Bowel Movements 5 General: Alert, Cooperative, No Acute Distress HEENT: PERRLA, EOMI Neck: Supple Lungs: Clear to Auscultation, Normal Air Movement Heart: Regular Rate, Normal S1, Normal S2 Abdomen: Normal Bowel Sounds, Soft, No Tenderness Extremities: No Clubbing, No Cyanosis, No Edema, Normal Pulses, No Tenderness/Swelling Skin: No Rashes, No Breakdown Neuro: Normal Speech Psych/Mental Status: Mental Status NL, Mood NL Results Lab Laboratory Tests 06/07/22 03:34 A/P-Cardiology Admission Diagnosis Right hip fx PVD CAD CHF Assessment/Plan Right hip fracture secondary to fall at home, s/p surgery with Dr. Jones on June 03, 2022. Recovering well, feeling well. Post of anemia, status post blood transfusion Monitor H&H Status post EGD, patient had methemoglobinemia, status post methylene blue treatment Better at this time Continue to monitor closely Peripheral arterial disease, extensive disease, patient had multiple intervention in [address] Chandra using atherectomy and 2 overlapping stent in the left SFA 5 x 150 and 6 x 150 and 6 x 20 then had intervention in the right SFA using 2 Supera stents 5 x 120, has been having increasing claudication, returned for angiogram in October 2019 which showed total occlusion of both SFA, failed intervention, Referred for evaluation for vascular surgery, has seen Dr. Milian in [facility] and underwent aortobifem on 08/20/20, had multiple procedures done by Dr. Milian, on the left leg done in November and on the right leg had it done earlier in April and has a follow-up appointment. Coronary artery disease, extensive disease. Had a cardiac catheterization done with Dr. Chandra in June 2018 which showed chronic total occlusion of the proximal right coronary artery reconstructed by collaterals, has severe stenosis in the mid to distal LAD and had 2 stents deployed using Patricia 2.5 x 38 and 2.5 x 15 expanded to 3.0. FFR to OM1 that has moderate stenosis was 0.84 and no intervention was done at that time. Cardiac stress test done in [facility] in June 2020 which reported as medium-size moderate intensity inferior and distal inferolateral wall defect with ischemia, stress score is 6, SDS 6, patient is asymptomatic, probably ischemic segment is due to the occluded right coronary artery Congestive heart failure, chronic left ventricular systolic dysfunction, ischemi c cardiomyopathy, resolved, Last echocardiogram done in June 02, 2022 showed EF 55-60%, grade 1 diastolic dysfunction, mild to moderate AR, PA 45-50mmHg. Sinus node dysfunction. Multiple sinus pauses occurred at night while asleep. Asymptomatic. No history of syncope. Continue to monitor DM, management per medical team Hypertension, continue to monitor blood pressure Hyperlipidemia, monitored as outpatient History of GI bleed History of right foot drop Moderate carotid stenosis on the left, mild disease on the right, ultrasound done in October 2020. Continue to monitor LINDA HASSAN MD Jun 07, 2022 09:35
--- NOTE | 2022-06-07 10:55 | Tele-ICU Progress Note ---
Subjective Date Seen by a Provider: Jun 07, 2022 Time Seen by a Provider: 10:50 Subjective/Events-last exam Tele-ICU Physician , Progress Note ) Available chart/ vitals / labs / Images reviewed Video assessment done using teleICU camera, rest of exam as per RN Discussed with RN Events overnight : Afebrile hemodynamically stable Respiratory - on RA o2 sat 93%. I/O = Drips:none Pressors- no Consultants: Hospital course:, had egd 06/06/22 developped methhemoglobenemia requiring iv methelene blue A/P CVS/HTN stable Rhythem nsr Echo Respiratory System. ra 93-95% GI hiatal hernia s/p egd Kidneys. cr 1.58 ORTHO S/P RT hip pinning for fracture . HEME hb improved from 6.9 to 8.0 gm after 1 unit of prbcs [employer] INSERTER/MENTAL STATUS - Lines : periph , (Central Line Necessity Reviewed) Santiago: OG: Nutrition: Analgesia: Anxiety/ delirium VTE Prophylaxis: AC on hold due to anemia, on prasugrel Stress Ulcer Prophylaxis: on ppi Plans in collaboration with bedside consultants and IM MDs. Discussed with RN to reach out if any questions or concerns Sepsis Event Evaluation Height, Weight, BMI Height: 5'8.00" Weight: 192lbs. 0.0oz. 87.820728tf; 33.64 BMI Method:Stated Exam Exam Patient acknowledged, consented, and participated in this virtual visit which was conducted using real time audio/video Vital Signs Date Time Temp Pulse Resp B/P (MAP) Pulse Ox O2 Delivery O2 Flow Rate FiO2 06/07/22 10:00 93 17 115/58 (77) 94 High Flow N/C 1.00 06/07/22 09:00 99 13 124/57 (79) 96 High Flow N/C 1.00 06/07/22 08:46 94 Nasal Cannula 1.00 06/07/22 08:00 96 16 138/65 (89) 95 High Flow N/C 1.00 06/07/22 07:39 36.7 92 96 32 06/07/22 07:38 95 High Flow N/C 1.00 06/07/22 07:33 96 High Flow N/C 3.00 06/07/22 07:33 36.7 06/07/22 07:00 96 13 121/65 (83) 93 High Flow N/C 3.00 06/07/22 07:00 94 06/07/22 06:00 96 17 122/52 (75) 91 High Flow N/C 3.00 06/07/22 05:00 92 12 103/60 (74) 92 High Flow N/C 3.00 06/07/22 04:00 93 18 124/62 (82) 94 High Flow N/C 3.00 06/07/22 03:54 91 High Flow N/C 3.00 06/07/22 03:52 36.8 High Flow N/C 3.00 06/07/22 03:00 94 19 125/51 (75) 96 High Flow N/C 3.00 06/07/22 02:00 96 13 115/60 (78) 87 High Flow N/C 3.00 06/07/22 01:00 96 06/07/22 01:00 94 21 126/59 (81) 90 High Flow N/C 3.00 06/07/22 00:17 93 High Flow N/C 3.00 06/07/22 00:14 37.0 High Flow N/C 3.00 06/07/22 00:00 90 8 125/56 (79) 95 High Flow N/C 5.00 06/06/22 23:25 High Flow N/C 5.00 06/06/22 23:00 17 131/64 (86) 94 Non Rebreather 8.00 06/06/22 22:00 95 22 127/65 (85) 91 Non Rebreather 8.00 06/06/22 21:00 100 20 147/73 (97) 96 Non Rebreather 8.00 06/06/22 20:00 94 Non Rebreather 8.00 06/06/22 20:00 96 159/56 (90) 96 Non Rebreather 8.00 06/06/22 20:00 37.1 06/06/22 19:00 36.9 Non Rebreather 8.00 06/06/22 19:00 96 06/06/22 19:00 97 21 168/75 (106) 89 Non Rebreather 8.00 06/06/22 18:00 97 17 156/75 (102) 93 Non Rebreather 8.00 06/06/22 17:30 Non Rebreather 8.00 06/06/22 17:00 93 10 136/78 (97) 92 Non Rebreather 10.00 06/06/22 16:51 Non Rebreather 10.00 06/06/22 16:00 37.0 06/06/22 16:00 93 21 138/68 (91) 90 Non Rebreather 15.00 06/06/22 16:00 90 Non Rebreather 10.00 06/06/22 15:45 37.0 06/06/22 15:00 89 21 135/87 (103) 90 Non Rebreather 15.00 06/06/22 14:00 83 10 146/70 (95) 89 Non Rebreather 15.00 06/06/22 13:55 90 Non Rebreather 15.00 06/06/22 13:35 83 18 85 Non Rebreather 10.00 06/06/22 11:31 36.8 75 18 115/57 (76) 96 Nasal Cannula 1.50 I & O 06/07/22 07:00 Intake Total 1360 ml Output Total 1000 ml Balance 360 ml Height & Weight Height: 5'8.00" Weight: 192lbs. 0.0oz. 87.572327bd; 33.64 BMI Method:Stated General Appearance: No Apparent Distress, Chronically ill HEENT: Pale Conjunctivae (L), Pale Conjunctivae (R) Neck: Full Range of Motion, Normal Inspection, Non Tender Respiratory: Chest Non Tender, Lungs Clear, Normal Breath Sounds, No Accessory Muscle Use, No Respiratory Distress Cardiovascular: Regular Rate, Rhythm, No Edema, No Gallop, No JVD, No Murmur Capillary Refill: Less Than 3 Seconds Peripheral Pulses: 4+ Radial Pulses (R), 4+ Radial Pulses (L) Extremity: Swelling (External rotation and foreshortening of the right leg extremities are warm peripheral pulses were not apparent. No ulceration noted. No significant bruising minimal swelling of the right thigh and groin incisions and popliteal incisions well-healed her text) Neurologic/Psychiatric: Sensory Deficit (Involving the feet) Results Lab Laboratory Tests 06/06/22 07:55 06/07/22 03:34 Assessment/Plan Assessment/Plan as above Critical Care: Critically Ill Patient Time spent with patient (mins): 15 KAELYN OSULLIVAN MD Jun 07, 2022 10:55
--- NOTE | 2022-06-07 11:30 | Physical Therapy Progress Note ---
Therapy Progress Note Pt. transfer to ICU following procedure. We will need new orders to continue PT. PAUL BUTLER PT Jun 07, 2022 11:30
[2022-06-07] MEDS: fentaNYL INJ 100 MCG/2 ML AMP IVP PRN (11:58)
[2022-06-07 20:23] VITALS: BP 104/56
[2022-06-07] MEDS: GABAPENTIN 600 MG (NEURONTIN) TAB PO SCH (20:54)
[2022-06-07] MEDS: TERAZOSIN 5 MG (HYTRIN) CAPSULE PO SCH (20:54)
[2022-06-08 00:20] VITALS: BP 98/51
[2022-06-08 04:14] VITALS: BP 103/50
[2022-06-08] MEDS: inSUlin ASPART (NovoLOG) 1 UNIT/0.01 ML (CHARGE PER UNIT) SC SCH ×4 (06:16→20:38)
--- NOTE | 2022-06-08 07:42 | Progress Note - Hospitalist ---
Subjective HPI/CC On Admission Date Seen by Provider: Jun 08, 2022 Time Seen by Provider: 10:30 Mr. Nicholas is a 71-year-old white male who apparently fell in his bathroom earlier today. He was able to crawl to his bedroom and call relatives complaining about significant right hip pain. He was brought to the emergency room where he was noted to have a right intertrochanteric hip fracture. He was confused but surprisingly not comatose despite the fact that his blood sugar was nearly 1300 with no reported past history of diabetes and no record of any diabetic medication. He was not acidotic but did exhibit signs of dehydration. He was oriented to person only and somewhat slow to respond able to answer simple questions but a poor historian. He denied chest pain shortness of breath only reporting hip pain when he tried to move his right leg. Past medical history is significant for ischemic cardiomyopathy with reported ejection fraction of 30% on echo referenced by Dr. Chandra in 2019. At that time he had evidence for significant peripheral vascular disease with claudication underwent stenting of the right SFA but subsequently has had what appears to be several lower extremity bypass surgeries. These were done elsewhere and he did not think that he had had any stents placed in the last year but again his history is suspect. Subjective/Events-last exam Patient doing well No pain reported Santiago cath will be DC soon PT OT Review of Systems General: Fatigue, Malaise Objective Exam Vital Signs Vital Signs Date Time Temp Pulse Resp B/P (MAP) Pulse Ox O2 Delivery O2 Flow Rate FiO2 06/08/22 19:23 37.3 85 18 125/60 (81) 90 Room Air 06/07/22 13:18 1.00 06/07/22 07:39 32 Capillary Refill : Less Than 3 SecondsLess Than 3 Seconds General Appearance: No Apparent Distress, WD/WN, Chronically ill Respiratory: Lungs Clear, Normal Breath Sounds Cardiovascular: Regular Rate, Rhythm Neurologic/Psychiatric: Alert, Oriented x3, No Motor/Sensory Deficits, Normal Mood/Affect Results/Procedures Lab Patient resulted labs reviewed. Assessment/Plan Assessment and Plan Assess & Plan/Chief Complaint (1) Diabetes mellitus, type 2 Status: Resolved Assessment & Plan: D/c insulin drip. Manage diet for diabetic patient. Continue glucose monitoring. 06/06: Added long acting insulin. ADA diet and glucose monitoring. (2) BPH (benign prostatic hyperplasia) Status: Chronic Assessment & Plan: Continue terazosin, prazosin, other home meds (3) COPD (chronic obstructive pulmonary disease) Status: Chronic Assessment & Plan: Remain on nasal canula (4) Acute kidney injury superimposed on chronic kidney disease Status: Acute Assessment & Plan: 06/06: Creat is 1.68 (5) Peripheral vascular disease Status: Chronic Assessment & Plan: continue home meds (6) Coronary artery disease Status: Chronic Assessment & Plan: continue home meds (7) Delirium due to general medical condition Status: Resolved (8) Fall on same level Status: Acute (9) DKA, type 2 Status: Acute Assessment & Plan: 06/04: beta-hydroxybutyrate is 0.17 Qualifiers: Qualified Codes: E11.10 - Type 2 diabetes mellitus with ketoacidosis without coma (10) Hyperkalemia Status: Resolved Assessment & Plan: 06/04: K is 4.3 (11) Primary hypertension Status: Chronic Assessment & Plan: 06/04: Restart home med amlodipine (12) Mixed hyperlipidemia Status: Chronic Assessment & Plan: continue home meds (13) Hip fracture, right Status: Acute Assessment & Plan: Surgery on 06/03. Start physical therapy. 06/04: continue with PT with goal of ambulation. Move to med surg floor from ICU. Qualifiers: Qualified Codes: S72.001A - Fracture of unspecified part of neck of right femur, initial encounter for closed fracture (14) Ischemic cardiomyopathy Status: Chronic (15) Chronic combined systolic and diastolic congestive heart failure Status: Chronic (16) Coronary artery disease without angina pectoris Status: Chronic (17) Anemia of chronic disease Status: Chronic Assessment & Plan: 06/05: Hgb on admission was 12.5. Today is 6.9. Type and screen ordered. Consult surgery to schedule EGD and Colonoscopy to search for GI bleed. 06/06: Hgb is 8.2. Colonoscopy and EGD today. (18) Liver enzyme elevation Status: Acute Assessment & Plan: 06/06: Hepatitis panel ordered Critical Care Critically Ill Patient FRANCA LAO DO Jun 08, 2022 07:42
[2022-06-08 07:51] VITALS: BP 125/58
[2022-06-08] MEDS: FINASTERIDE (PROSCAR) 5 MG TAB PO SCH (08:24)
[2022-06-08] MEDS: ASPIRIN E.C. 81 MG (ECOTRIN) TAB PO SCH (08:25)
[2022-06-08] MEDS: PRASUGREL 10 MG (EFFIENT) TABLET PO SCH (08:25)
[2022-06-08] MEDS: PARoxetine 20 MG (PAXIL) TAB PO SCH (08:25)
[2022-06-08] MEDS: PANTOPRAZOLE 40 MG (PROTONIX) TAB PO SCH (08:25)
[2022-06-08] MEDS: FUROSEMIDE 20 MG (LASIX) TAB PO SCH (08:25)
[2022-06-08] MEDS: amLODIPine 5 MG (NORVASC) TAB PO SCH ×2 (08:25→19:44)
[2022-06-08] MEDS: meTOprolol SUCCINATE 100 MG (TOPROL XL) TAB PO SCH (08:25)
[2022-06-08] MEDS: GABAPENTIN 300 MG (NEURONTIN) CAP PO SCH (08:25)
[2022-06-08] MEDS: FERROUS SULF 325 MG (IRON) TAB PO SCH (08:25)
[2022-06-08] MEDS: LORazepam 0.5 MG (ATIVAN) TABLET PO PRN (10:42)
[2022-06-08 11:23] VITALS: BP 121/59
[2022-06-08] MEDS ORDERED: BACLOFEN 10 MG (LIORESAL) TAB PO PRN (11:45)
--- NOTE | 2022-06-08 11:52 | Cardiology Progress Note ---
Subjective Date Seen by Provider: Jun 08, 2022 Time Seen by Provider: 11:52 Subjective/Events-last exam Patient was seen at bedside, laying down comfortably, complaining of fatigue Review of Systems General: No Chills, No Night Sweats; Fatigue; No Malaise, No Appetite, No Other HEENT: No Head Aches, No Visual Changes, No Eye Pain, No Ear Pain, No Dysphasia, No Sinus Congestion, No Post Nasal Drip, No Sore Throat, No Other Pulmonary: No Dyspnea, No Cough, No Pleuritic Chest Pain, No Other Cardiovascular: No: Chest Pain, Palpitations, Orthopnea, Paroxysmal Noc. Dyspnea, Edema, Lt Headedness, Other Objective-Cardiology Exam Last Set of Vital Signs Vital Signs 06/07/22 06/07/22 06/08/22 07:39 13:18 11:23 Temp 37.2 Pulse 84 Resp 18 B/P (MAP) 121/59 (79) Pulse Ox 94 O2 Delivery Room Air O2 Flow Rate 1.00 FiO2 32 I&O Intake and Output 06/08/22 00:00 Intake Total 1872 ml Output Total 2425 ml Balance -553 ml Intake Oral 1872 ml Output Urine Total 2425 ml # Voids 1 General: Alert, Cooperative, No Acute Distress HEENT: PERRLA, EOMI Neck: Supple Lungs: Clear to Auscultation, Normal Air Movement Heart: Regular Rate, Normal S1, Normal S2 Abdomen: Normal Bowel Sounds, Soft, No Tenderness Extremities: No Clubbing, No Cyanosis, No Edema, Normal Pulses, No Tenderness/Swelling Skin: No Rashes, No Breakdown Neuro: Normal Speech Psych/Mental Status: Mental Status NL, Mood NL A/P-Cardiology Admission Diagnosis Right hip fx PVD CAD CHF Assessment/Plan Right hip fracture secondary to fall at home, s/p surgery with Dr. Jones on June 03, 2022. Recovering well, feeling well. Post of anemia, status post blood transfusion Monitor H&H Status post EGD, patient had methemoglobinemia, status post methylene blue treatment Return to baseline, feeling better. Continue to monitor closely Peripheral arterial disease, extensive disease, patient had multiple intervention in [address] Chandra using atherectomy and 2 overlapping stent in the left SFA 5 x 150 and 6 x 150 and 6 x 20 then had intervention in the right SFA using 2 Supera stents 5 x 120, has been having increasing claudication, returned for angiogram in October 2019 which showed total occlusion of both SFA, failed intervention, Referred for evaluation for vascular surgery, has seen Dr. Milian in [facility] and underwent aortobifem on 08/20/20, had multiple procedures done by Dr. Milian, on the left leg done in November and on the right leg had it done earlier in April and has a follow-up appointment. Coronary artery disease, extensive disease. Had a cardiac catheterization done with Dr. Chandra in June 2018 which showed chronic total occlusion of the proximal right coronary artery reconstructed by collaterals, has severe stenosis in the mid to distal LAD and had 2 stents deployed using Patricia 2.5 x 38 and 2.5 x 15 expanded to 3.0. FFR to OM1 that has moderate stenosis was 0.84 and no intervention was done at that time. Cardiac stress test done in [facility] in June 2020 which reported as medium-size moderate intensity inferior and distal inferolateral wall defect with ischemia, stress score is 6, SDS 6, patient is asymptomatic, probably ischemic segment is due to the occluded right coronary artery Congestive heart failure, chronic left ventricular systolic dysfunction, ischemic cardiomyopathy, resolved, Last echocardiogram done in June 02, 2022 showed EF 55-60%, grade 1 diastolic dysfunction, mild to moderate AR, PA 45-50mmHg. Sinus node dysfunction. Multiple sinus pauses occurred at night while asleep. Asymptomatic. No history of syncope. Continue to monitor DM, management per medical team Hypertension, continue to monitor blood pressure Hyperlipidemia, monitored as outpatient History of GI bleed History of right foot drop Moderate carotid stenosis on the left, mild disease on the right, ultrasound done in October 2020. Continue to monitor LINDA HASSAN MD Jun 08, 2022 11:52
[2022-06-08] MEDS: ONDANSETRON 4 MG/2 ML (SDV) Z0FRAN IVP PRN (12:29)
[2022-06-08 15:46] VITALS: BP 112/54
[2022-06-08 19:23] VITALS: BP 125/60
[2022-06-08] MEDS: GABAPENTIN 600 MG (NEURONTIN) TAB PO SCH (19:44)
[2022-06-08] MEDS: TERAZOSIN 5 MG (HYTRIN) CAPSULE PO SCH (19:44)
[2022-06-09 00:20] VITALS: BP 153/67
[2022-06-09] MEDS: inSUlin ASPART (NovoLOG) 1 UNIT/0.01 ML (CHARGE PER UNIT) SC SCH ×4 (06:22→20:59)
--- NOTE | 2022-06-09 07:31 | Physical Therapy Progress Note ---
Therapy Progress Note Due to patient recent transfer to ICU, PT will require new orders to resume skilled therapy. YONG TODD PT Jun 09, 2022 07:31
[2022-06-09 07:44] VITALS: BP 134/52
[2022-06-09] MEDS: ASPIRIN E.C. 81 MG (ECOTRIN) TAB PO SCH (08:31)
[2022-06-09] MEDS: FERROUS SULF 325 MG (IRON) TAB PO SCH (08:31)
[2022-06-09] MEDS: FUROSEMIDE 20 MG (LASIX) TAB PO SCH (08:31)
[2022-06-09] MEDS: amLODIPine 5 MG (NORVASC) TAB PO SCH ×2 (08:31→21:00)
[2022-06-09] MEDS: PARoxetine 20 MG (PAXIL) TAB PO SCH (08:31)
[2022-06-09] MEDS: PANTOPRAZOLE 40 MG (PROTONIX) TAB PO SCH (08:31)
[2022-06-09] MEDS: PRASUGREL 10 MG (EFFIENT) TABLET PO SCH (08:31)
[2022-06-09] MEDS: meTOprolol SUCCINATE 100 MG (TOPROL XL) TAB PO SCH (08:31)
[2022-06-09] MEDS: GABAPENTIN 300 MG (NEURONTIN) CAP PO SCH (08:31)
[2022-06-09] MEDS: FINASTERIDE (PROSCAR) 5 MG TAB PO SCH (08:31)
--- NOTE | 2022-06-09 10:03 | Occ Therapy Progress Note ---
Therapy Progress Note Due to medical status change, pt is discharge from OT services. Pt will need new orders. CALIXTO DOMÍNGUEZ Jun 09, 2022 10:03
--- NOTE | 2022-06-09 10:06 | Cardiology Progress Note ---
Subjective Date Seen by Provider: Jun 09, 2022 Time Seen by Provider: 10:05 Subjective/Events-last exam Patient was seen at bedside, laying down comfortably. Feeling better Review of Systems General: No Chills, No Night Sweats; Fatigue; No Malaise, No Appetite, No Other HEENT: No Head Aches, No Visual Changes, No Eye Pain, No Ear Pain, No Dysphasia, No Sinus Congestion, No Post Nasal Drip, No Sore Throat, No Other Pulmonary: No Dyspnea, No Cough, No Pleuritic Chest Pain, No Other Cardiovascular: No: Chest Pain, Palpitations, Orthopnea, Paroxysmal Noc. Dyspnea, Edema, Lt Headedness, Other Objective-Cardiology Exam Last Set of Vital Signs Vital Signs 06/07/22 06/07/22 06/09/22 06/09/22 07:39 13:18 07:44 08:00 Temp 37.4 Pulse 75 Resp 16 B/P (MAP) 134/52 (79) Pulse Ox 92 O2 Delivery Room Air O2 Flow Rate 1.00 FiO2 32 I&O Intake and Output 06/09/22 00:00 Intake Total 1980 ml Output Total 1850 ml Balance 130 ml Intake Oral 1980 ml Output Urine Total 1850 ml # Bowel Movements 2 General: Alert, Cooperative, No Acute Distress HEENT: PERRLA, EOMI Neck: Supple Lungs: Clear to Auscultation, Normal Air Movement Heart: Regular Rate, Normal S1, Normal S2 Abdomen: Normal Bowel Sounds, Soft, No Tenderness Extremities: No Clubbing, No Cyanosis, No Edema, Normal Pulses, No Tenderness/Swelling Skin: No Rashes, No Breakdown Neuro: Normal Speech Psych/Mental Status: Mental Status NL, Mood NL Results Lab Laboratory Tests Test 06/08/22 10:42 06/08/22 15:16 06/08/22 16:52 06/08/22 18:09 Range/Units Glucometer 128 H 67 L 67 L 179 H 70-110 MG/DL Test 06/08/22 20:06 06/09/22 06:16 Range/Units Glucometer 209 H 231 H 70-110 MG/DL A/P-Cardiology Admission Diagnosis Right hip fx PVD CAD CHF Assessment/Plan Right hip fracture secondary to fall at home, s/p surgery with Dr. Jones on June 03, 2022. Recovering well, feeling well. Post of anemia, status post blood transfusion Monitor H&H Status post EGD, patient had methemoglobinemia, status post methylene blue treat ment Return to baseline, feeling better. Continue to monitor closely Peripheral arterial disease, extensive disease, patient had multiple intervention in [address] Chandra using atherectomy and 2 overlapping stent in the left SFA 5 x 150 and 6 x 150 and 6 x 20 then had intervention in the right SFA using 2 Supera stents 5 x 120, has been having increasing claudication, returned for angiogram in October 2019 which showed total occlusion of both SFA, failed intervention, Referred for evaluation for vascular surgery, has seen Dr. Milian in [facility] and underwent aortobifem on 08/20/20, had multiple procedures done by Dr. Milian, on the left leg done in November and on the right leg had it done earlier in April and has a follow-up appointment. Coronary artery disease, extensive disease. Had a cardiac catheterization done with Dr. Chandra in June 2018 which showed chronic total occlusion of the proximal right coronary artery reconstructed by collaterals, has severe stenosis in the mid to distal LAD and had 2 stents deployed using Patricia 2.5 x 38 and 2.5 x 15 expanded to 3.0. FFR to OM1 that has moderate stenosis was 0.84 and no intervention was done at that time. Cardiac stress test done in [facility] in June 2020 which reported as medium-size moderate intensity inferior and distal inferolateral wall defect with ischemia, stress score is 6, SDS 6, patient is asymptomatic, probably ischemic segment is due to the occluded right coronary artery Congestive heart failure, chronic left ventricular systolic dysfunction, ischemic cardiomyopathy, resolved, Last echocardiogram done in June 02, 2022 showed EF 55-60%, grade 1 diastolic dysfunction, mild to moderate AR, PA 45-50mmHg. Sinus node dysfunction. Multiple sinus pauses occurred at night while asleep. Asymptomatic. No history of syncope. Continue to monitor DM, management per medical team Hypertension, continue to monitor blood pressure Hyperlipidemia, monitored as outpatient History of GI bleed History of right foot drop Moderate carotid stenosis on the left, mild disease on the right, ultrasound done in October 2020. Continue to monitor LINDA HASSAN MD Jun 09, 2022 10:06
[2022-06-09 10:15] LABS: BASOPHILS # (AUTO) 0.1 10^3/uL (0.0-0.1); BASOPHILS % (AUTO) 1 % (0-10); EOSINOPHILS # (AUTO) 0.2 10^3/uL (0.0-0.3); EOSINOPHILS % (AUTO) 2 % (0-10); HEMATOCRIT 27 % (40-54); HEMOGLOBIN 8.1 g/dL (13.3-17.7); LYMPHOCYTES # (AUTO) 0.9 10^3/uL (1.0-4.0); LYMPHOCYTES % (AUTO) 10 % (12-44); MEAN CORPUSCULAR HEMOGLOBIN 27 pg (25-34); MEAN CORPUSCULAR HGB CONC 31 g/dL (32-36); MEAN CORPUSCULAR VOLUME 89 fL (80-99); MEAN PLATELET VOLUME 9.4 fL (9.0-12.2); MONOCYTES # (AUTO) 0.6 10^3/uL (0.0-1.0); MONOCYTES % (AUTO) 6 % (0-12); NEUTROPHILS # (AUTO) 7.6 10^3/uL (1.8-7.8); NEUTROPHILS % (AUTO) 79 % (42-75); PLATELET COUNT 247 10^3/uL (130-400); WHITE BLOOD COUNT 9.7 10^3/uL (4.3-11.0)
[2022-06-09] MEDS ORDERED: MTP100TCR PO (10:25)
[2022-06-09] MEDS ORDERED: PRAS10TA10 PO (10:25)
[2022-06-09] MEDS ORDERED: FURO20TA4 PO (10:25)
[2022-06-09] MEDS ORDERED: AMLO-250 PO (10:25)
[2022-06-09] MEDS ORDERED: BACL10TA PO (10:25)
[2022-06-09] MEDS ORDERED: PANT40TA52 PO (10:25)
[2022-06-09] MEDS ORDERED: OXYM15MI4 NS (10:25)
[2022-06-09] MEDS ORDERED: ASPI-1238 PO (10:25)
[2022-06-09] MEDS ORDERED: PRAZ5CAP2 PO (10:25)
[2022-06-09] MEDS ORDERED: FINA5TAB6 PO (10:25)
[2022-06-09] MEDS ORDERED: INSU100V5 SQ (10:25)
[2022-06-09] MEDS ORDERED: FERR325T18 PO (10:25)
[2022-06-09] MEDS ORDERED: ATOR80TA76 PO (10:25)
[2022-06-09] MEDS ORDERED: GABA300C PO ×2 (10:25)
[2022-06-09] MEDS ORDERED: OXC5T PO (10:25)
[2022-06-09] MEDS ORDERED: PARO30TA3 PO (10:25)
[2022-06-09] MEDS ORDERED: LORA-404 PO (10:25)
--- NOTE | 2022-06-09 10:26 | Discharge Inst-Skilled Nursing ---
Discharge Inst-Skilled NF Reconcile Patient Problems Problems Reviewed?: Yes Chief Complaint Mr. Nicholas is a 71-year-old white male who apparently fell in his bathroom earlier today. He was able to crawl to his bedroom and call relatives complaining about significant right hip pain. He was brought to the emergency room where he was noted to have a right intertrochanteric hip fracture. He was confused but surprisingly not comatose despite the fact that his blood sugar was nearly 1300 with no reported past history of diabetes and no record of any diabetic medication. He was not acidotic but did exhibit signs of dehydration. He was oriented to person only and somewhat slow to respond able to answer simple questions but a poor historian. He denied chest pain shortness of breath only reporting hip pain when he tried to move his right leg. Past medical history is significant for ischemic cardiomyopathy with reported ejection fraction of 30% on echo referenced by Dr. Chandra in 2019. At that time he had evidence for significant peripheral vascular disease with claudication underwent stenting of the right SFA but subsequently has had what appears to be several lower extremity bypass surgeries. These were done elsewhere and he did not think that he had had any stents placed in the last year but again his history is suspect. Patient Instructions Patient Problems: Hip fracture Goal: [place] Consult/Follow Up/Orders Follow Up Appt.: PCP [place] rounds Skilled NF Admit to: Via [facility] Emergency Department Certification ([facility]) I certify that SNF services are required to be given on an inpatient basis because of the above named patient's need for detention care on a continuing basis for the conditions(s) for which he/she was receiving inpatient hospital services prior to his/her transfer to the SNF. [facility] Facility Order: Nursing Services, Energy Conservation Engineer-Evaluate & Treat, Physical Therapy-Evaluate & Treat, Wound Care-Eval/Treat Oxygen Delivery Method: Room Air Discharge Diet: ADA Diet Resuscitation Status: Full Code New & Resume Previous Orders New Medications: Lorazepam (Ativan) 0.5 Mg Tablet 0.5 MG PO TID PRN for ANXIETY, #20 TAB Baclofen (Baclofen) 10 Mg Tablet 10 MG PO Q6HR PRN for MUSCLE SPASMS, #20 TAB Insulin Determir (Levemir) 100 Unit/Ml Soln 15 UNIT SQ BID, #1 EA Metoprolol Succinate (Metoprolol Succinate) 100 Mg Tab.er.24h 100 MG PO DAILY, #30 TAB Oxycodone Hcl (Oxyir Tablet) 5 Mg Tab 5 MG PO Q4H PRN for PAIN-SEVERE (8-10), #30 TAB Pantoprazole Sodium (Pantoprazole Sodium) 40 Mg Tablet.dr 40 MG PO DAILY, #30 TAB Changed Medications: Ferrous Sulfate (Ferrous Sulfate) 325 Mg (65 Mg Iron) Tablet 325 MG PO DAILY, #30 TAB (Changed from: Ferrous Sulfate 325 Mg Tablet 325 Mg PO DAILY) Furosemide (Furosemide) 20 Mg Tablet 20 MG PO Q48H, #30 TAB (Changed from: DAILY) Gabapentin (Neurontin) 300 Mg Capsule 600 MG PO HS, #30 CAP (Changed from: Removed Instructions) Continued Medications: Amlodipine Besylate (Amlodipine Besylate) 5 Mg Tablet 5 MG PO BID, #60 TAB (This prescription has been renewed) Aspirin (Aspirin EC) 81 Mg Tablet.dr 81 MG PO DAILY, #30 TAB (This prescription has been renewed) Atorvastatin Calcium (Atorvastatin Calcium) 80 Mg Tablet 80 MG PO DAILY, #30 TAB (This prescription has been renewed) Finasteride (Finasteride) 5 Mg Tablet 5 MG PO DAILY, #30 TAB (This prescription has been renewed) Gabapentin (Neurontin) 300 Mg Capsule 300 MG PO DAILY, #30 CAP (This prescription has been renewed) Insulin Detemir (Levemir Flextouch) 100 Unit/Ml (3 Ml) Insuln.pen 30 UNITS SQ BID Oxymetazoline HCl (Afrin) 0.05 % Mist 1 SPRAY NS UD PRN for CONGESTION, #1 EA (This prescription has been renewed) Paroxetine HCl (Paroxetine HCl) 30 Mg Tablet 30 MG PO DAILY, #30 TAB (This prescription has been renewed) Prasugrel HCl (Prasugrel HCl) 10 Mg Tablet 10 MG PO DAILY, #30 TAB (This prescription has been renewed) Prazosin HCl (Prazosin HCl) 5 Mg Capsule 10 MG PO HS, #30 CAP (This prescription has been renewed) TAKES 2 (5MG) CAPSULES Discontinued Medications: Cholecalciferol (Vitamin D3) (Vitamin D3) 25 Mcg (1000 Unit) Capsule 25 MCG PO DAILY, CAP Metoprolol Succinate (Metoprolol Succinate) 25 Mg Tab.er.24h 25 MG PO BID, TAB Multivitamin (Multivitamins) 1 Each Tablet 1 EACH PO DAILY, TAB Potassium Chloride (Potassium Chloride) 10 Meq Tab.er.prt 10 MEQ PO BID Semaglutide (Ozempic) 0.25 Mg/0.2 Ml Pen.injctr 0.25 MG SQ WEEK Laine Huff Jun 09, 2022 10:25 LAINE HUFF DO Jun 09, 2022 10:26
[2022-06-09 10:36] LABS: ALBUMIN 2.4 GM/DL (3.2-4.5); BILIRUBIN,TOTAL 1.3 MG/DL (0.1-1.0); CALCIUM 8.3 MG/DL (8.5-10.1); CREATININE SERUM 1.5 MG/DL (0.60-1.30); POTASSIUM 4.6 MMOL/L (3.6-5.0); TOTAL PROTEIN 5.5 GM/DL (6.4-8.2)
--- NOTE | 2022-06-09 10:37 | Discharge Summary ---
Discharge Summary Hospital Course Was the Problem List Reviewed?: Yes Problems/Dx: (1) Preoperative cardiovascular examination Status: Acute (2) Chronic combined systolic and diastolic congestive heart failure Status: Chronic (3) Ischemic cardiomyopathy Status: Chronic (4) Coronary artery disease without angina pectoris Status: Chronic (5) Primary hypertension Status: Chronic (6) Mixed hyperlipidemia Status: Chronic (7) Aortic regurgitation Status: Chronic (8) Pulmonary hypertension Status: Chronic (9) Acute kidney injury superimposed on chronic kidney disease Status: Acute Hospital Course Date of Admission: Jun 01, 2022 at 09:26 Admission Diagnosis : Family Physician/Provider: [facility] Date of Discharge: 06/09/22 Discharge Diagnosis: [ ] Hospital Course: Hospital Course: Mr. Salomon Nicholas is a 71 y/o M who presented to the ED after falling and sustaining a R intertrochanteric hip fracture. Upon presentation his blood sugar was elevated to 1300 without ketosis, he had signs of dehydration, and had an ALAN on presentation. His glycemic control improved with IV insulin and fluids and initiation of subcutaneous insulin. He had a R intramedullary nailing of his right femur on 06/03 which the pain has been tolerable. He had progressive drop in his hemoglobin after surgery and on 06/05 was transfused with 1 U of blood. He had an EGD and colonoscopy on 06/06, which was complicated by acute respiratory distress, hypoxemia, and he was found to have methemoglobinemia, which was treated with methylene blue. Since that time, he has been recovering well after his procedures and without additional issues. He was maintained on his home medications and continued to improve his strength. He will need to continue on a sliding scale and basal insulin to control his diabetes. He is stable for discharge. Labs and Pending Lab Test: Laboratory Tests 06/08/22 10:42: Glucometer 128H 06/08/22 15:16: Glucometer 67L 06/08/22 16:52: Glucometer 67L 06/08/22 18:09: Glucometer 179H 06/08/22 20:06: Glucometer 209H 06/09/22 06:16: Glucometer 231H 06/09/22 10:05: White Blood Count 9.7, Red Blood Count 2.98L, Hemoglobin 8.1L, Hematocrit 27L, Mean Corpuscular Volume 89, Mean Corpuscular Hemoglobin 27, Mean Corpuscular He moglobin Concent 31L, Red Cell Distribution Width 15.9H, Platelet Count 247, Mean Platelet Volume 9.4, Immature Granulocyte % (Auto) 3, Neutrophils (%) (Auto) 79H, Lymphocytes (%) (Auto) 10L, Monocytes (%) (Auto) 6, Eosinophils (%) (Auto) 2, Basophils (%) (Auto) 1, Neutrophils # (Auto) 7.6, Lymphocytes # (Auto) 0.9L, Monocytes # (Auto) 0.6, Eosinophils # (Auto) 0.2, Basophils # (Auto) 0.1, Immature Granulocyte # (Auto) 0.3H, Sodium Level 139, Potassium Level 4.6, Chloride Level 104, Carbon Dioxide Level 25, Anion Gap 10, Blood Urea Nitrogen 16, Creatinine 1.50H, Estimat Glomerular Filtration Rate 49, BUN/Creatinine Ratio 11, Glucose Level 229H, Calcium Level 8.3L, Corrected Calcium 9.6, Total Bilirubin 1.3H, Aspartate Amino Transf (AST/SGOT) 38H, Alanine Aminotransferase (ALT/SGPT) 29, Alkaline Phosphatase 218H, Total Protein 5.5L, Albumin 2.4L Microbiology 06/05/22 MRSA Screen - Final, Complete MRSA not isolated Home Meds Active Ativan (Lorazepam) 0.5 Mg Tablet 0.5 Mg PO TID PRN Levemir (Insulin Determir) 100 Unit/Ml Soln 15 Unit SQ BID Pantoprazole Sodium 40 Mg Tablet.dr 40 Mg PO DAILY Oxyir Tablet (Oxycodone HCl) 5 Mg Tab 5 Mg PO Q4H PRN Metoprolol Succinate 100 Mg Tab.er.24h 100 Mg PO DAILY Baclofen 10 Mg Tablet 10 Mg PO Q6HR PRN Paroxetine HCl 30 Mg Tablet 30 Mg PO DAILY Amlodipine Besylate 5 Mg Tablet 5 Mg PO BID Ferrous Sulfate 325 Mg (65 Mg Iron) Tablet 325 Mg PO DAILY Neurontin (Gabapentin) 300 Mg Capsule 600 Mg PO HS Neurontin (Gabapentin) 300 Mg Capsule 300 Mg PO DAILY Afrin (Oxymetazoline HCl) 0.05 % Mist 1 [place] NS UD PRN Aspirin EC (Aspirin) 81 Mg Tablet.dr 81 Mg PO DAILY Furosemide 20 Mg Tablet 20 Mg PO Q48H Prazosin HCl 5 Mg Capsule 10 Mg PO HS TAKES 2 (5MG) CAPSULES Atorvastatin Calcium 80 Mg Tablet 80 Mg PO DAILY Finasteride 5 Mg Tablet 5 Mg PO DAILY Prasugrel HCl 10 Mg Tablet 10 Mg PO DAILY Reported Vitamin D3 (Cholecalciferol (Vitamin D3)) 25 Mcg (1000 Unit) Capsule 25 Mcg PO DAILY Metoprolol Succinate 25 Mg Tab.er.24h 25 Mg PO BID Ozempic (Semaglutide) 0.25 Mg/0.2 Ml Pen.injctr 0.25 Mg SQ WEEK Levemir Flextouch (Insulin Detemir) 100 Unit/Ml (3 Ml) Insuln.pen 30 Units SQ BID Potassium Chloride 10 Meq Tab.er.prt 10 Meq PO BID Multivitamins (Multivitamin) 1 Each Tablet 1 Each PO DAILY Assessment/Pt Instructions NH rounds Discharge Planning: <30 minutes discharge planning Discharge Instructions Discharge Diet: ADA Diet Discharge Physical Examination Vital Signs Vital Signs Date Time Temp Pulse Resp B/P (MAP) Pulse Ox O2 Delivery O2 Flow Rate FiO2 06/09/22 08:00 Room Air 06/09/22 07:44 37.4 75 16 134/52 (79) 92 06/07/22 13:18 1.00 06/07/22 07:39 32 General Appearance: No Apparent Distress, WD/WN, Chronically ill Respiratory: Lungs Clear Cardiovascular: Regular Rate, Rhythm Neurologic/Psychiatric: Alert, Oriented x3 Allergies: Coded Allergies: benzocaine (Unverified Allergy, Unknown, METHONOGLOBINEMIA, 06/06/22) lidocaine (Unverified Allergy, Unknown, METHEMOGLOBINEMIA, 06/06/22) Discharge Summary Date of Admission Jun 01, 2022 at 09:26 Date of Discharge Discharge Date: Jun 09, 2022 Admission Diagnosis 1. Right intertrochanteric hip fracture Dr. Jones has been consulted will hold Brilinta continue aspirin with cardiology consultation with Dr. Centeno as well continue beta-[place] therapy and high-dose statin therapy but hold lisinopril considering acute kidney injury. 2. Severe hyperglycemia compatible with type 2 diabetes with hyperosmolar state secondary to dehydration and acute exacerbation of chronic kidney disease IV fluids have been initiated as well as an insulin drip per protocol. 3. Severe peripheral vascular disease 4. Ischemic cardiomyopathy currently heart failure compensated Dr. Centeno has been consulted and the case has been discussed with him. Discharge Diagnosis (1) Diabetes mellitus, type 2 Status: Resolved Assessment & Plan: D/c insulin drip. Manage diet for diabetic patient. Continue glucose monitoring. 06/06: Added long acting insulin. ADA diet and glucose monitoring. (2) BPH (benign prostatic hyperplasia) Status: Chronic Assessment & Plan: Continue terazosin, prazosin, other home meds (3) COPD (chronic obstructive pulmonary disease) Status: Chronic Assessment & Plan: Remain on nasal canula (4) Acute kidney injury superimposed on chronic kidney disease Status: Acute Assessment & Plan: 06/06: Creat is 1.68 (5) Peripheral vascular disease Status: Chronic Assessment & Plan: continue home meds (6) Coronary artery disease Status: Chronic Assessment & Plan: continue home meds (7) Delirium due to general medical condition Status: Resolved (8) Fall on same level Status: Acute (9) DKA, type 2 Status: Acute Assessment & Plan: 06/04: beta-hydroxybutyrate is 0.17 Qualifiers: Qualified Codes: E11.10 - Type 2 diabetes mellitus with ketoacidosis without coma (10) Hyperkalemia Status: Resolved Assessment & Plan: 06/04: K is 4.3 (11) Primary hypertension Status: Chronic Assessment & Plan: 06/04: Restart home med amlodipine (12) Mixed hyperlipidemia Status: Chronic Assessment & Plan: continue home meds (13) Hip fracture, right Status: Acute Assessment & Plan: Surgery on 06/03. Start physical therapy. 06/04: continue with PT with goal of ambulation. Move to med surg floor from ICU. Qualifiers: Qualified Codes: S72.001A - Fracture of unspecified part of neck of right femur, initial encounter for closed fracture (14) Ischemic cardiomyopathy Status: Chronic (15) Chronic combined systolic and diastolic congestive heart failure Status: Chronic (16) Coronary artery disease without angina pectoris Status: Chronic (17) Anemia of chronic disease Status: Chronic Assessment & Plan: 06/05: Hgb on admission was 12.5. Today is 6.9. Type and screen ordered. Consult surgery to schedule EGD and Colonoscopy to search for GI bleed. 06/06: Hgb is 8.2. Colonoscopy and EGD today. (18) Liver enzyme elevation Status: Acute Assessment & Plan: 06/06: Hepatitis panel ordered (1) Preoperative cardiovascular examination Status: Acute Assessment & Plan: Given the urgent need for his procedure and his underlying cardiac status as well as noncardiac issues, he will be at high risk of a perioperative cardiac event while undergoing his orthopedic procedure. The risk can be kept to a minimum by continuing any of his cardiac medications that he will tolerate and being cautious with intravenous fluids. In the preoperative stress test will not change his risk status. (2) Chronic combined systolic and diastolic congestive heart failure Status: Chronic Assessment & Plan: From what I can gather from the patient, he seems to have been reasonably constipated and sedated prior to admission. Now he has multiple metabolic derangements which makes giving him his normal cardiac medications difficult at this time. Once his metabolic derangements have improved, and his blood pressure is better, we can try to restart some of his cardiac medications. (3) Ischemic cardiomyopathy Status: Chronic Assessment & Plan: His most recent echocardiogram from 12/01/2018 showed an ejection fraction of 45-50%. I recommend a follow-up echocardiogram. (4) Coronary artery disease without angina pectoris Status: Chronic Assessment & Plan: He does not seem to be having any overt angina at this point in time. I recommend he continue on aspirin and statin medication. We can attempt to resume beta-[place] once his blood pressure is better. (5) Primary hypertension Status: Chronic Assessment & Plan: His antihypertensive medication is currently on hold due to somewhat low blood pressure coupled with his acute kidney injury and other metabolic derangements. (6) Mixed hyperlipidemia Status: Chronic Assessment & Plan: Continue statin medication. Statin medications administered in the perioperative period have been shown to reduce perioperative cardiac events. (7) Aortic regurgitation Status: Chronic Assessment & Plan: His most recent echocardiogram from 2019 showed mild to moderate aortic regurgitation. This will need to be followed longitudinally but should not impact his orthopedic procedure. (8) Pulmonary hypertension Status: Chronic Assessment & Plan: Most likely due to his heart failure and probably some underlying chronic pulmonary disease. Continue oxygen. (9) Acute kidney injury superimposed on chronic kidney disease Status: Acute Assessment & Plan: I suspect this is multifactorial. He is currently receiving intravenous fluid due to the hyperosmolar state and possible diabetic ketoacidosis coupled with possible superimposed rhabdomyolysis. FRANCA LAO DO Jun 09, 2022 10:37
--- NOTE | 2022-06-09 11:00 | Progress Note - Hospitalist ---
BETSEY WETZEL 06/09/22 1100: Subjective HPI/CC On Admission Date Seen by Provider: Jun 09, 2022 Time Seen by Provider: 09:45 Mr. Nicholas is a 71-year-old white male who apparently fell in his bathroom earlier today. He was able to crawl to his bedroom and call relatives complaining about significant right hip pain. He was brought to the emergency room where he was noted to have a right intertrochanteric hip fracture. He was confused but surprisingly not comatose despite the fact that his blood sugar was nearly 1300 with no reported past history of diabetes and no record of any diabetic medication. He was not acidotic but did exhibit signs of dehydration. He was oriented to person only and somewhat slow to respond able to answer simple questions but a poor historian. He denied chest pain shortness of breath only reporting hip pain when he tried to move his right leg. Past medical history is significant for ischemic cardiomyopathy with reported ejection fraction of 30% on echo referenced by Dr. Chandra in 2019. At that time he had evidence for significant peripheral vascular disease with claudication underwent stenting of the right SFA but subsequently has had what appears to be several lower extremity bypass surgeries. These were done elsewhere and he did not think that he had had any stents placed in the last year but again his history is suspect. Subjective/Events-last exam Patient is feeling well Strength is improving Pain controlled Bowel movement last night Feel like has difficulty with chewing Hospital Course: Mr. Salomon Nicholas is a 71 y/o M who presented to the ED after falling and sustaining a R intertrochanteric hip fracture. Upon presentation his blood sugar was elevated to 1300 without ketosis, he had signs of dehydration, and had an ALAN on presentation. His glycemic control improved with IV insulin and fluids and initiation of subcutaneous insulin. He had a R intramedullary nailing of his right femur on 06/03 which the pain has been tolerable. He had progressive drop in his hemoglobin after surgery and on 06/05 was transfused with 1 U of blood. He had an EGD and colonoscopy on 06/06, which was complicated by acute respiratory distress, hypoxemia, and he was found to have methemoglobinemia, which was treated with methylene blue. Since that time, he has been recovering well after his procedures and without additional issues. He was maintained on his home medications and continued to improve his strength. He will need to continue on a sliding scale and basal insulin to control his diabetes. He is stable for discharge. Review of Systems Musculoskeletal: back pain (back and hip pain) Neurological: Weakness (generalized), Numbness (in his hands) Objective Exam Vital Signs Vital Signs Date Time Temp Pulse Resp B/P (MAP) Pulse Ox O2 Delivery O2 Flow Rate FiO2 06/09/22 08:00 Room Air 06/09/22 07:44 37.4 75 16 134/52 (79) 92 06/07/22 13:18 1.00 06/07/22 07:39 32 Capillary Refill : Less Than 3 SecondsLess Than 3 Seconds General Appearance: No Apparent Distress, WD/WN HEENT: PERRL/EOMI, Normal ENT Inspection Neck: Full Range of Motion, Normal Inspection Respiratory: Chest Non Tender, Lungs Clear, Normal Breath Sounds, No Accessory Muscle Use, No Respiratory Distress Cardiovascular: Regular Rate, Rhythm, No Edema, No Gallop, No JVD, No Murmur, Normal Peripheral Pulses Gastrointestinal: Normal Bowel Sounds, No Organomegaly, No Pulsatile Mass, Non Tender, Soft Rectal: Deferred Back: Normal Inspection Extremity: Normal Capillary Refill, Normal Inspection, Non Tender Neurologic/Psychiatric: Alert, Oriented x3, No Motor/Sensory Deficits, Normal Mood/Affect, Motor Weakness (generalized weakness) Skin: Normal Color, Warm/Dry Results/Procedures Lab Laboratory Tests 06/09/22 10:05 Patient resulted labs reviewed. Imaging: Reviewed Imaging Films, Reviewed Imaging Report Assessment/Plan Assessment and Plan Assess & Plan/Chief Complaint Assessment: Mr. Salomon Nicholas is a 71 y/o M with PMH of ischemic cardiomyopathy, HF with recovered EF, peripheral vascular disease, A fib, CAD, HTN, BPH, IBD, DMII, COPD, PTSD, and Panic attacks who presented to the hospital after a fall on 06/01/22 and found to have a right intertrochanteric hip fracture now s/p surgical pinning. During his stay he presented with anemia and had an EGD and colonoscopy which was complicated by methemoglobinemia which resolved with methylene blue, and no signs of acute GI bleed were found and his hemoglobin has been stable. Plan: 1. Diabetes Mellitus type II > Cont Insulin Detemir 15U BID, Aspart 2U ACHS > Cont diabetic diet 2. HF with recovered EF - Last ECHO 06/02/22: EF 55-60%, Grade I diastolic dysfunction, mild to mod AR, OA 45-55 mmHg > Cont Metoprolol succinate 100mg > Cont Lasix 20mg daily > Cont Atorvastatin 80mg nightly 3. S/p R intramedullary nailing of femur fracture > PT/OT > Cont Gabapentin 300mg daily and 600mg nightly > Cont Baclofen 10mg q6 hr PRN > Cont Oxy 5mg q4 hr PRN 4. BPH > Cont Finasteride 5mg daily and Terazosin 10mg QHS 5. Anemia, stable - EGD and colonoscopy without signs of acute bleed, but found to have reflux esophagitis, hiatal hernia, moderate gastritis, and hemorrhoids. > Cont Ferrous sulfate 325mg daily > Cont Protonix 40mg daily 6. CAD > Cont ASA 81mg and Prasugrel 10mg daily. 7. ALAN, resolved - Cr 1.50 8. Peripheral vascular disease > Cont ASA 81mg and Prasugrel 10mg daily 9. COPD > Cont Albuterol q4 hr PRN 10. HTN > cont Amlodipine 5mg BID, Metoprolol succinate 100mg daily 11. Anxiety > Cont Paroxetine 30mg daily > Cont Lorazepam 0.5mg q8 PRN Dispo: Potential discharge today Code: Full code LAINE LAO DO 06/10/22 0531: Supervisory-Addendum Brief Verification & Attestation Participated in pt care: history, MDM, physical Personally performed: exam, history, MDM, supervision of care Care discussed with: Medical Student Procedures: n/a Results interpretation: Verified all documentation Verification and Attestation of Medical Student E/M Service A medical student performed and documented this service in my presence. I reviewed and verified all information documented by the medical student and made modifications to such information, when appropriate. I personally performed the physical exam and medical decision making. Laine Lao Jun 10, 2022,05:31 BETSEY WETZEL Jun 09, 2022 11:00 LAINE LAO DO Jun 10, 2022 05:31
[2022-06-09] MEDS ORDERED: ACETAMINOPHEN 325 MG TABLET PO PRN (13:30)
[2022-06-09 16:09] VITALS: BP 132/71
[2022-06-09] MEDS: TERAZOSIN 5 MG (HYTRIN) CAPSULE PO SCH (21:00)
[2022-06-09] MEDS: GABAPENTIN 600 MG (NEURONTIN) TAB PO SCH (21:00)
[2022-06-09 23:16] VITALS: BP 121/68
[2022-06-10] MEDS: inSUlin ASPART (NovoLOG) 1 UNIT/0.01 ML (CHARGE PER UNIT) SC SCH ×6 (06:13→21:36)
--- NOTE | 2022-06-10 07:06 | Physical Therapy Progress Note ---
Therapy Progress Note PT will require new orders to resume skilled therapy, due to medical change and ICU stay. YONG TODD PT Jun 10, 2022 07:06
[2022-06-10 07:49] VITALS: BP 137/64
[2022-06-10] MEDS: PRASUGREL 10 MG (EFFIENT) TABLET PO SCH (08:43)
[2022-06-10] MEDS: meTOprolol SUCCINATE 100 MG (TOPROL XL) TAB PO SCH (08:43)
[2022-06-10] MEDS: FUROSEMIDE 20 MG (LASIX) TAB PO SCH (08:43)
[2022-06-10] MEDS: LORazepam 0.5 MG (ATIVAN) TABLET PO PRN ×2 (08:43→17:26)
[2022-06-10] MEDS: FINASTERIDE (PROSCAR) 5 MG TAB PO SCH (08:43)
[2022-06-10] MEDS: GABAPENTIN 300 MG (NEURONTIN) CAP PO SCH (08:43)
[2022-06-10] MEDS: FERROUS SULF 325 MG (IRON) TAB PO SCH (08:43)
[2022-06-10] MEDS: ASPIRIN E.C. 81 MG (ECOTRIN) TAB PO SCH (08:43)
[2022-06-10] MEDS: PANTOPRAZOLE 40 MG (PROTONIX) TAB PO SCH (08:43)
[2022-06-10] MEDS: PARoxetine 20 MG (PAXIL) TAB PO SCH (08:44)
[2022-06-10] MEDS: amLODIPine 5 MG (NORVASC) TAB PO SCH ×2 (08:44→21:35)
--- NOTE | 2022-06-10 10:04 | Progress Note - Hospitalist ---
BETSEY WETZEL 06/10/22 1004: Subjective HPI/CC On Admission Date Seen by Provider: Jun 10, 2022 Time Seen by Provider: 09:30 Mr. Nicholas is a 71-year-old white male who apparently fell in his bathroom earlier today. He was able to crawl to his bedroom and call relatives complaining about significant right hip pain. He was brought to the emergency room where he was noted to have a right intertrochanteric hip fracture. He was confused but surprisingly not comatose despite the fact that his blood sugar was nearly 1300 with no reported past history of diabetes and no record of any diabetic medication. He was not acidotic but did exhibit signs of dehydration. He was oriented to person only and somewhat slow to respond able to answer simple questions but a poor historian. He denied chest pain shortness of breath only reporting hip pain when he tried to move his right leg. Past medical history is significant for ischemic cardiomyopathy with reported ejection fraction of 30% on echo referenced by Dr. Chandra in 2019. At that time he had evidence for significant peripheral vascular disease with claudication underwent stenting of the right SFA but subsequently has had what appears to be several lower extremity bypass surgeries. These were done elsewhere and he did not think that he had had any stents placed in the last year but again his history is suspect. Subjective/Events-last exam Feeling well Didnt sleep great due to pain Pain now tolerable Bowel movement yesterday Decreased appetite Hospital Course: Mr. Salomon Nicholas is a 71 y/o M who presented to the ED after falling and sustaining a R intertrochanteric hip fracture. Upon presentation his blood sugar was elevated to 1300 without ketosis, he had signs of dehydration, and had an ALAN on presentation. His glycemic control improved with IV insulin and fluids and initiation of subcutaneous insulin. He had a R intramedullary nailing of his right femur on 06/03 which the pain has been tolerable. He had progressive drop in his hemoglobin after surgery and on 06/05 was transfused with 1 U of blood. He had an EGD and colonoscopy on 06/06, which was complicated by acute respiratory distress, hypoxemia, and he was found to have methemoglobinemia, which was treated with methylene blue. Since that time, he has been recovering well after his procedures and without additional issues. He was maintained on his home medications and continued to improve his strength. He will need to continue on a sliding scale and basal insulin to control his diabetes. He is stable for discharge. Review of Systems Neurological: Other (occasional dizziness) Objective Exam Vital Signs Vital Signs Date Time Temp Pulse Resp B/P (MAP) Pulse Ox O2 Delivery O2 Flow Rate FiO2 06/10/22 07:49 36.5 74 18 137/64 (88) 93 Room Air 06/07/22 13:18 1.00 06/07/22 07:39 32 Capillary Refill : Less Than 3 SecondsLess Than 3 Seconds General Appearance: No Apparent Distress, WD/WN HEENT: PERRL/EOMI, Normal ENT Inspection Neck: Full Range of Motion, Normal Inspection, Non Tender, Supple Respiratory: Chest Non Tender, Lungs Clear, Normal Breath Sounds, No Accessory Muscle Use, No Respiratory Distress Cardiovascular: Regular Rate, Rhythm, No Edema, No Gallop, No JVD, No Murmur, Normal Peripheral Pulses Gastrointestinal: Normal Bowel Sounds, No Organomegaly, No Pulsatile Mass, Non Tender, Soft Rectal: Deferred Back: Normal Inspection Extremity: Normal Capillary Refill, Normal Inspection, Normal Range of Motion, Non Tender, No Calf Tenderness, No Pedal Edema Neurologic/Psychiatric: Alert, Oriented x3, No Motor/Sensory Deficits, Normal Mood/Affect Skin: Normal Color, Warm/Dry Results/Procedures Lab Laboratory Tests 06/09/22 10:05 Patient resulted labs reviewed. Imaging: Reviewed Imaging Films, Reviewed Imaging Report Assessment/Plan Assessment and Plan Assess & Plan/Chief Complaint Assessment: Mr. Salomon Nicholas is a 71 y/o M with PMH of ischemic cardiomyopathy, HF with recovered EF, peripheral vascular disease, A fib, CAD, HTN, BPH, IBD, DMII, COPD, PTSD, and Panic attacks who presented to the hospital after a fall on 06/01/22 and found to have a right intertrochanteric hip fracture now s/p surgical pinning. During his stay he presented with anemia and had an EGD and colonoscopy which was complicated by methemoglobinemia which resolved with methylene blue, and no signs of acute GI bleed were found and his hemoglobin has been stable. Plan: 1. Diabetes Mellitus type II > Increased Insulin Detemir form 15U to 20U BID and Aspart to 10U ACHS > Cont diabetic diet 2. HF with recovered EF - Last ECHO 06/02/22: EF 55-60%, Grade I diastolic dysfunction, mild to mod AR, OA 45-55 mmHg > Cont Metoprolol succinate 100mg > Cont Lasix 20mg daily > Cont Atorvastatin 80mg nightly 3. S/p R intramedullary nailing of femur fracture > PT/OT > Cont Gabapentin 300mg daily and 600mg nightly > Cont Baclofen 10mg q6 hr PRN > Cont Oxy 5mg q4 hr PRN 4. BPH > Cont Finasteride 5mg daily and Terazosin 10mg QHS 5. Anemia, stable - EGD and colonoscopy without signs of acute bleed, but found to have reflux esophagitis, hiatal hernia, moderate gastritis, and hemorrhoids. > Cont Ferrous sulfate 325mg daily > Cont Protonix 40mg daily 6. CAD > Cont ASA 81mg and Prasugrel 10mg daily. 7. ALAN, resolved - Cr 1.50 8. Peripheral vascular disease > Cont ASA 81mg and Prasugrel 10mg daily 9. COPD > Cont Albuterol q4 hr PRN 10. HTN > cont Amlodipine 5mg BID, Metoprolol succinate 100mg daily 11. Anxiety > Cont Paroxetine 30mg daily > Cont Lorazepam 0.5mg q8 PRN Dispo: Potential discharge today Code: Full code LAINE LAO DO 06/11/22 0541: Objective Exam General Appearance: No Apparent Distress, WD/WN, Chronically ill Respiratory: Lungs Clear Cardiovascular: Regular Rate, Rhythm Supervisory-Addendum Brief Verification & Attestation Participated in pt care: history, MDM, physical Personally performed: exam, history, MDM, supervision of care Care discussed with: Medical Student Procedures: n/a Results interpretation: Verified all documentation Verification and Attestation of Medical Student E/M Service A medical student performed and documented this service in my presence. I reviewed and verified all information documented by the medical student and made modifications to such information, when appropriate. I personally performed the physical exam and medical decision making. Laine Lao Jun 11, 2022,05:41 BETSEY WETZEL Jun 10, 2022 10:04 LAINE LAO DO Jun 11, 2022 05:41
--- NOTE | 2022-06-10 11:03 | Physical Therapy Evaluation ---
PT Evaluation-General Medical Diagnosis Admission Date Jun 01, 2022 at 09:26 Medical Diagnosis: right hip fracture/ALAN/DKA Onset Date: Jun 01, 2022 Therapy Diagnosis Therapy Diagnosis: generalized weakness/debility Height/Weight Height (Feet): 5 Height (Inches): 8.00 Weight (Pounds): 192 Weight (Ounces): 0.0 Precautions Precautions/Isolations: Fall Prevention, Standard Precautions Weight Bear Status Right Lower Extremity: Right Weight Bearing/Tolerated Left Lower Extremity: Left Full Weight Bearing Referral Physician: Refugio Reason for Referral: Evaluation/Treatment Medical History Pertinent Medical History: Atrial Fib, Alcoholism, CAD, COPD, DM, Heart Failure, HTN, Neuropathy, Renal Insufficiency, Smoking Current History Patient transferred to ICU and back to medical floor. Orders received to reassess patient. Reviewed History: Yes Social History Home: Apartment Current Living Status: Alone Entry Into Home: Elevator Prior Prior Level of Function SCALE: Activities may be completed with or without assistive devices. 8-Dzbrsodczr-bhyfdvr completes the activity by him/herself with no assistance from a helper. 5-Set-up or Clean-up Assistance-helper sets up or cleans up; patient completes activity. [place] assists only prior to or following the activity. 4-Supervision or Touching Assistance-helper provides verbal cues and/or touch ing/steadying and/or contact guard assistance as patient completes activity. Assistance may be provided throughout the activity or intermittently. 3-Partial/Moderate Assistance-helper does LESS THAN HALF the effort. [place] lifts, holds or supports trunk or limbs, but provides less than half the effort. 2-Substantial/Maximal Assistance-helper does MORE THAN HALF the effort. [place] lifts or holds trunk or limbs and provides more than half the effort. 2-Xhiaaraem-uqxqmv does ALL the effort. Patient does none of the effort to complete the activity. Or, the assistance of 2 or more helpers is required for the patient to complete the activity. If activity was not attempted, code reason: 7-Patient Refused. 9-Not Applicable-not attempted and the patient did not perform the activity before the current illness, exacerbation or injury. 10-Not Attempted due to Environmental Limitations-(lack of equipment, weather restraints, etc.). 88-Not Attempted due to Medical Conditions or Safety Concerns. Prior Devices Use: Walker unable to determine at this time PT Evaluation-Current Subjective Patient agrees to PT. c/o right hip pain but unable to rate Objective Patient Orientation: Confused ROM/Strength ROM Lower Extremities right LE limited due to pain/left LE WFL Strength Lower Extremities 2-/5 grossly right LE/3-/5 left LE grossly Integumentary/Posture Integumentary refer to nursing notes Bowel Incontinence: Yes Bladder Incontinence: Yes Posture WFL Neuromuscular (Tone, Coordination, Reflexes) diminished coordination due to weakness Sensory Vision: Unable to Assess Hearing: Functional Hand Dominance: Right Transfers Roll Left to Right (QC): 1 (x 2) Sit to Lying (QC): 1 (x 2) Lying to Sitting/Side of Bed(Q: 1 (x 2) Sit to Stand (QC): 1 (x 2 attempted x 3 sets with patient unable to weight bear right LE to assist) Gait Does the Patient Walk?: No and Walking Goal IS indicated Walk 10 feet (QC): 88 Walk 50 ft with 2 Turns(QC): 88 Walk 150 ft (QC): 88 Balance Sitting Static: Poor Sitting Dynamic: Poor Standing Static: Poor Standing Dynamic: Poor Assessment/Needs 71 y.o. male, will benefit from skilled PT to address functional strength and mobility to improve current LOF. From a PT standpoint, patient would benefit from extended care facility to address functional needs to ensure safe return to home at maximum LOF. Rehab Potential: Guarded PT Short Term Goals Short Term Goals Time Frame: Jun 14, 2022 Roll Left & Right: 2 Sit to lyin Lying to sitting on side of be: 2 Sit to stand: 2 Chair/sdm-gj-tumrs transfer: 2 Toilet transfer: 2 Walk 10 feet: 2 PT Residential Goals Residential Goals PT Sail Lay Out Worker Goals Time Frame: Jun 28, 2022 Roll Left & Right (QC): 3 Sit to Lying (QC): 3 Lying-Sitting on Side/Bed(QC): 3 Sit to Stand (QC): 3 Chair/Kmf-sz-Foquw Xfer(QC): 3 Toilet Transfer (QC): 3 Walk 10 feet (QC): 3 Walk 50ft with 2 Turns (QC): 3 Walk 150 ft (QC): 3 Walking 10ft on Uneven Surface: 3 PT Plan Problem List Problem List: Activity Tolerance, Functional Strength, Safety, Balance, Gait, Transfer, Bed Mobility Treatment/Plan Treatment Plan: Continue Plan of Care Treatment Plan: Bed Mobility, Education, Functional Activity Michel, Functional Strength, Gait, Safety, Therapeutic Exercise, Transfers Treatment Duration: Jun 28, 2022 Frequency: 11 times per week Estimated Hrs Per Day: .5 hour per day Patient and/or Family Agrees t: Yes Time/GCodes Time In: 1025 Time Out: 1038 Total Billed Treatment Time: 13 [facility] Jun 10, 2022 11:03
--- NOTE | 2022-06-10 13:47 | Occupational Therapy Eval ---
OT Evaluation-General/PLF Medical Diagnosis Admission Date Jun 01, 2022 at 09:26 Medical Diagnosis: right hip fracture/ALAN/DKA Onset Date: Jun 01, 2022 Therapy Diagnosis Therapy Diagnosis: Reduced ADL status Height/Weight Height (Feet): 5 Height (Inches): 8.00 Weight (Pounds): 192 Weight (Ounces): 0.0 Precautions Precautions/Isolations: Fall Prevention, Standard Precautions Weight Bear Status Weight Bearing Restriction: Weight Bearing/Tolerated Referral Physician: Refugio Referral Reason: Evaluation/Treatment Medical History Pertinent Medical History: Atrial Fib, Alcoholism, CAD, COPD, DM, Heart Failure, HTN, Neuropathy, Renal Insufficiency, Smoking Current History Pt received a R IM nailing last week. Per patient, he lives in an apartment on t he 5th floor with elevator access. He reports being independent with adls but has a caregiver that assists with all iadls. His caregiver comes in ~3-4 hours every day. He states he was not using any AD prior to fall. He reported today that he will be going somewhere for Rehab and they are looking into [place]. Reviewed History: Yes Social History Home: Apartment Current Living Status: Alone Entry Into Home: Elevator ADL-Prior Level of Function SCALE: Activities may be completed with or without assistive devices. 3-Nmapruvrol-svcaykk completes the activity by him/herself with no assistance from a helper. 5-Set-up or Clean-up Assistance-helper sets up or cleans up; patient completes activity. [place] assists only prior to or following the activity. 4-Supervision or Touching Assistance-helper provides verbal cues and/or touching/steadying and/or contact guard assistance as patient completes activity. Assistance may be provided throughout the activity or intermittently. 3-Partial/Moderate Assistance-helper does LESS THAN HALF the effort. [place] lifts, holds or supports trunk or limbs, but provides less than half the effort. 2-Substantial/Maximal Assistance-helper does MORE THAN HALF the effort. [place] lifts or holds trunk or limbs and provides more than half the effort. 3-Oyqitkrtn-ujfnla does ALL the effort. Patient does none of the effort to complete the activity. Or, the assistance of 2 or more helpers is required for the patient to complete the activity. If activity was not attempted, code reason: 7-Patient Refused. 9-Not Applicable-not attempted and the patient did not perform the activity before the current illness, exacerbation or injury. 10-Not Attempted due to Environmental Limitations-(lack of equipment, weather restraints, etc.). 88-Not Attempted due to Medical Conditions or Safety Concerns. Self Care: Unknown Functional Cognition: Unknown OT Current Status Subjective Pt laying in bed upon arrival. He agrees to therapy eval and would like to brush teeth. Pt declines all OOB/EOB activities due to "doing a lot this morning" and being in pain. Appearance Pt left laying in bed with all needs within reach. Mental Status/Objective Patient Orientation: Person, Place, Situation Current Hand Dominance: Right Upper Extremity ROM WFL ~170 degrees at shoulders Upper Extremity Strength 3-/5 at shoulders ADL-Treatment Oral Hygiene (QC): 5 (laying in bed) On/Off Footwear (QC): 07 Pt declined all EOB/OOB activities as he was fatigued and in pain from "doing a lot this morning". With set up assist, pt brushed teeth sitting up in bed. Pt stated that he will be discharging soon to go to a rehab facility but does not know when yet. He would benefit from continued skilled OT services to increase strength, balance, coordination, and ADL performance. Per PT's note, pt was dependent to max assist for all transfers and bed mobility. Education OT Patient Education: Correct positioning, Modified ADL techniques, Purpose of tx/functional activities, Reviewed precautions, Rehab process Teaching Recipient: Patient Teaching Methods: Discussion Response to Teaching: Verbalize Understanding, Return Demonstration OT Borematic Operator Goals Fdc Goals Time Frame: Jun 25, 2022 Eating (QC): 5 Oral Hygiene (QC): 5 Toileting Hygiene (QC): 3 Shower/Bathe Self (QC): 3 Upper Body Dressing (QC): 4 Lower Body Dressing (QC): 3 On/Off Footwear (QC): 3 1=Demonstrate adherence to instructed precautions during ADL tasks. 2=Patient will verbalize/demonstrate understanding of assistive de vices/modifications for ADL. 3=Patient will improve strength/tolerance for activity to enable patient to perform ADL's. OT Education/Plan Problem List/Assessment Assessment: Decreased Activ Tolerance, Decreased Safety Aware, Decreased UE Strength, Dependent Transfers, Impaired Bed Mobility, Impaired Cognition, Impaired Coordination, Impaired Funct Balance, Impaired I ADL's, Impaired Self- Care Skills Discharge Recommendations Plan/Recommendations: Continue POC Therapy Discharge Recommendati: Assisted Living, Bath Aide, Post Acute PT, Post Acute OT Treatment Plan/Plan of Care Treatment,Training & Education: Yes Patient would benefit from OT for education, treatment and training to promote independence in ADL's, mobility, safety and/or upper extremity function for ADL's. Plan of Care: ADL Retraining, Caregiver Training, Cognitive Retraining, Functional Mobility, Group Exercise/Act as Ind, UE Funct Exercise/Act, W/C Management Training Treatment Duration: Jun 25, 2022 Frequency: 3 times per week (3-5x/week) Estimated Hrs Per Day: .25 hour per day Agreement: Yes Rehab Potential: Guarded Time/GCodes Start Time: 13:22 Stop Time: 13:31 Total Time Billed (hr/min): 9 Billed Treatment Time 1 visit Viola Bowers OT Jun 10, 2022 13:47
[2022-06-10 15:30] VITALS: BP 152/64
[2022-06-10] MEDS: TERAZOSIN 5 MG (HYTRIN) CAPSULE PO SCH (21:35)
[2022-06-10] MEDS: GABAPENTIN 600 MG (NEURONTIN) TAB PO SCH (21:35)
[2022-06-10 23:45] VITALS: BP 134/67
[2022-06-11] MEDS: LORazepam 0.5 MG (ATIVAN) TABLET PO PRN ×2 (02:29→12:16)
[2022-06-11] MEDS: inSUlin ASPART (NovoLOG) 1 UNIT/0.01 ML (CHARGE PER UNIT) SC SCH ×4 (05:34→12:52)
--- NOTE | 2022-06-11 06:46 | Discharge Summary ---
Discharge Summary Hospital Course Problems/Dx: (1) Preoperative cardiovascular examination Status: Acute (2) Chronic combined systolic and diastolic congestive heart failure Status: Chronic (3) Ischemic cardiomyopathy Status: Chronic (4) Coronary artery disease without angina pectoris Status: Chronic (5) Primary hypertension Status: Chronic (6) Mixed hyperlipidemia Status: Chronic (7) Aortic regurgitation Status: Chronic (8) Pulmonary hypertension Status: Chronic (9) Acute kidney injury superimposed on chronic kidney disease Status: Acute Hospital Course Date of Admission: Jun 01, 2022 at 09:26 Admission Diagnosis : [facility]: 06[facility]11[facility]22 Discharge Diagnosis: [ ] Hospital Course: Hospital Course: Mr. Salomon Nicholas is a 71 y/o M who presented to the ED after falling and sustaining a R intertrochanteric hip fracture. Upon presentation his blood sugar was elevated to 1300 without ketosis, he had signs of dehydration, and had an ALAN on presentation. His glycemic control improved with IV insulin and fluids and initiation of subcutaneous insulin. He had a R intramedullary nailing of his right femur on 06/03 which the pain has been tolerable. He had progressive drop in his hemoglobin after surgery and on 06/05 was transfused with 1 U of blood. He had an EGD and colonoscopy on 06/06, which was complicated by acute respiratory distress, hypoxemia, and he was found to have methemoglobinemia, which was treated with methylene blue. Since that time, he has been recovering well after his procedures and without additional issues. He was maintained on his home medications and continued to improve his strength. He will need to continue on a sliding scale and basal insulin to control his diabetes. He is stable for discharge. Labs and Pending Lab Test: Laboratory Tests 06/10/22 11:03: Glucometer 269H 06/10/22 16:01: Glucometer 196H 06/10/22 20:46: Glucometer 137H 06/11/22 05:32: Glucometer 126H Microbiology 06/05/22 MRSA Screen - Final, Complete MRSA not isolated Home Meds Active Ativan (Lorazepam) 0.5 Mg Tablet 0.5 Mg PO TID PRN Levemir (Insulin Determir) 100 Unit/Ml Soln 15 Unit SQ BID Pantoprazole Sodium 40 Mg Tablet.dr 40 Mg PO DAILY Oxyir Tablet (Oxycodone HCl) 5 Mg Tab 5 Mg PO Q4H PRN Metoprolol Succinate 100 Mg Tab.er.24h 100 Mg PO DAILY Baclofen 10 Mg Tablet 10 Mg PO Q6HR PRN Paroxetine HCl 30 Mg Tablet 30 Mg PO DAILY Amlodipine Besylate 5 Mg Tablet 5 Mg PO BID Ferrous Sulfate 325 Mg (65 Mg Iron) Tablet 325 Mg PO DAILY Neurontin (Gabapentin) 300 Mg Capsule 600 Mg PO HS Neurontin (Gabapentin) 300 Mg Capsule 300 Mg PO DAILY Afrin (Oxymetazoline HCl) 0.05 % Mist 1 [place] NS UD PRN Aspirin EC (Aspirin) 81 Mg Tablet.dr 81 Mg PO DAILY Furosemide 20 Mg Tablet 20 Mg PO Q48H Prazosin HCl 5 Mg Capsule 10 Mg PO HS TAKES 2 (5MG) CAPSULES Atorvastatin Calcium 80 Mg Tablet 80 Mg PO DAILY Finasteride 5 Mg Tablet 5 Mg PO DAILY Prasugrel HCl 10 Mg Tablet 10 Mg PO DAILY Reported Vitamin D3 (Cholecalciferol (Vitamin D3)) 25 Mcg (1000 Unit) Capsule 25 Mcg PO DAILY Metoprolol Succinate 25 Mg Tab.er.24h 25 Mg PO BID Ozempic (Semaglutide) 0.25 Mg/0.2 Ml Pen.injctr 0.25 Mg SQ WEEK Levemir Flextouch (Insulin Detemir) 100 Unit/Ml (3 Ml) Insuln.pen 30 Units SQ BID Potassium Chloride 10 Meq Tab.er.prt 10 Meq PO BID Multivitamins (Multivitamin) 1 Each Tablet 1 Each PO DAILY Assessment/Pt Instructions NH rounds Discharge Planning: <30 minutes discharge planning Discharge Instructions Discharge Diet: ADA Diet Activity as Tolerated: Yes Discharge Physical Examination Vital Signs Vital Signs Date Time Temp Pulse Resp B/P (MAP) Pulse Ox O2 Delivery O2 Flow Rate FiO2 06/10/22 23:45 37.0 72 17 134/67 (89) 95 Room Air 06/07/22 13:18 1.00 06/07/22 07:39 32 General Appearance: No Apparent Distress, WD/WN, Chronically ill Allergies: Coded Allergies: benzocaine (Unverified Allergy, Unknown, METHONOGLOBINEMIA, 06/06/22) lidocaine (Unverified Allergy, Unknown, METHEMOGLOBINEMIA, 06/06/22) Discharge Summary Date of Admission Jun 01, 2022 at 09:26 Date of Discharge Discharge Date: Jun 09, 2022 Admission Diagnosis 1. Right intertrochanteric hip fracture Dr. Jones has been consulted will hold Brilinta continue aspirin with cardiology consultation with Dr. Centeno as well continue beta-[place] therapy and high-dose statin therapy but hold lisinopril considering acute kidney injury. 2. Severe hyperglycemia compatible with type 2 diabetes with hyperosmolar state secondary to dehydration and acute exacerbation of chronic kidney disease IV fluids have been initiated as well as an insulin drip per protocol. 3. Severe peripheral vascular disease 4. Ischemic cardiomyopathy currently heart failure compensated Dr. Centeno has been consulted and the case has been discussed with him. Discharge Diagnosis (1) Preoperative cardiovascular examination Status: Acute Assessment & Plan: Given the urgent need for his procedure and his underlying cardiac status as well as noncardiac issues, he will be at high risk of a perioperative cardiac event while undergoing his orthopedic procedure. The risk can be kept to a minimum by continuing any of his cardiac medications that he will tolerate and being cautious with intravenous fluids. In the preoperative stress test will not change his risk status. (2) Chronic combined systolic and diastolic congestive heart failure Status: Chronic Assessment & Plan: From what I can gather from the patient, he seems to have been reasonably constipated and sedated prior to admission. Now he has multiple metabolic derangements which makes giving him his normal cardiac medications difficult at this time. Once his metabolic derangements have improved, and his blood pressure is better, we can try to restart some of his cardiac medications. (3) Ischemic cardiomyopathy Status: Chronic Assessment & Plan: His most recent echocardiogram from 12/01/2018 showed an ejection fraction of 45-50%. I recommend a follow-up echocardiogram. (4) Coronary artery disease without angina pectoris Status: Chronic Assessment & Plan: He does not seem to be having any overt angina at this point in time. I recommend he continue on aspirin and statin medication. We can attempt to resume beta-[place] once his blood pressure is better. (5) Primary hypertension Status: Chronic Assessment & Plan: His antihypertensive medication is currently on hold due to somewhat low blood pressure coupled with his acute kidney injury and other metabolic derangements. (6) Mixed hyperlipidemia Status: Chronic Assessment & Plan: Continue statin medication. Statin medications administered in the perioperative period have been shown to reduce perioperative cardiac events. (7) Aortic regurgitation Status: Chronic Assessment & Plan: His most recent echocardiogram from 2018 showed mild to moderate aortic regurgitation. This will need to be followed longitudinally but should not impact his orthopedic procedure. (8) Pulmonary hypertension Status: Chronic Assessment & Plan: Most likely due to his heart failure and probably some underlying chronic pulmonary disease. Continue oxygen. (9) Acute kidney injury superimposed on chronic kidney disease Status: Acute Assessment & Plan: I suspect this is multifactorial. He is currently receiving intravenous fluid due to the hyperosmolar state and possible diabetic ketoacidosis coupled with possible superimposed rhabdomyolysis. FRANCA LAO DO Jun 11, 2022 06:46
[2022-06-11 08:03] VITALS: BP 161/69
[2022-06-11] MEDS: PRASUGREL 10 MG (EFFIENT) TABLET PO SCH (08:45)
[2022-06-11] MEDS: FINASTERIDE (PROSCAR) 5 MG TAB PO SCH (08:45)
[2022-06-11] MEDS: ASPIRIN E.C. 81 MG (ECOTRIN) TAB PO SCH (08:46)
[2022-06-11] MEDS: GABAPENTIN 300 MG (NEURONTIN) CAP PO SCH (08:46)
[2022-06-11] MEDS: FERROUS SULF 325 MG (IRON) TAB PO SCH (08:46)
[2022-06-11] MEDS: meTOprolol SUCCINATE 100 MG (TOPROL XL) TAB PO SCH (08:47)
[2022-06-11] MEDS: amLODIPine 5 MG (NORVASC) TAB PO SCH (08:47)
[2022-06-11] MEDS: PANTOPRAZOLE 40 MG (PROTONIX) TAB PO SCH (08:47)
[2022-06-11] MEDS: FUROSEMIDE 20 MG (LASIX) TAB PO SCH (08:47)
[2022-06-11] MEDS: PARoxetine 20 MG (PAXIL) TAB PO SCH (08:47)
--- NOTE | 2022-06-11 10:03 | Cardiology Progress Note ---
Subjective Date Seen by Provider: Jun 11, 2022 Time Seen by Provider: 08:55 Subjective/Events-last exam Patient is sitting up in bed, no new complaints. Planning for discharge to [facility] today Objective-Cardiology Exam Last Set of Vital Signs Vital Signs 06/07/22 06/07/22 06/11/22 07:39 13:18 08:03 Temp 35.8 Pulse 72 Resp 18 B/P (MAP) 161/69 (99) Pulse Ox 95 O2 Delivery Room Air O2 Flow Rate 1.00 FiO2 32 I&O Intake and Output 06/11/22 00:00 Intake Total 1485 ml Output Total 700 ml Balance 785 ml Intake Oral 1485 ml Output Urine Total 700 ml # Voids 3 General: Alert, Cooperative, No Acute Distress HEENT: PERRLA, EOMI Neck: Supple Lungs: Clear to Auscultation, Normal Air Movement Heart: Regular Rate, Normal S1, Normal S2 Abdomen: Normal Bowel Sounds, Soft, No Tenderness Extremities: No Clubbing, No Cyanosis, No Edema, Normal Pulses, No Tenderness/S welling Skin: No Rashes, No Breakdown Neuro: Normal Speech Psych/Mental Status: Mental Status NL, Mood NL A/P-Cardiology Admission Diagnosis Right hip fx PVD CAD CHF Assessment/Plan Right hip fracture secondary to fall at home, s/p surgery with Dr. Jones on 2021. Recovering well, feeling well. Post of anemia, status post blood transfusion Monitor H&H Status post EGD, patient had methemoglobinemia, status post methylene blue treatment Return to baseline, feeling better. Continue to monitor closely Peripheral arterial disease, extensive disease, patient had multiple intervention in [address] Chandra using atherectomy and 2 overlapping stent in the left SFA 5 x 150 and 6 x 150 and 6 x 20 then had intervention in the right SFA using 2 Supera stents 5 x 120, has been having increasing claudication, returned for angiogram in October 2019 which showed total occlusion of both SFA, failed intervention, Referred for evaluation for vascular surgery, has seen Dr. Milian in [facility] and underwent aortobifem on 08/20/20, had multiple procedures done by Dr. Milian, on the left leg done in November and on the right leg had it done earlier in April and has a follow-up appointment. Coronary artery disease, extensive disease. Had a cardiac catheterization done with Dr. Chandra in June 2018 which showed chronic total occlusion of the proximal right coronary artery reconstructed by collaterals, has severe stenosis in the mid to distal LAD and had 2 stents deployed using Patricia 2.5 x 38 and 2.5 x 15 expanded to 3.0. FFR to OM1 that has moderate stenosis was 0.84 and no intervention was done at that time. Cardiac stress test done in [facility] in June 2020 which reported as medium-size moderate intensity inferior and distal inferolateral wall defect with ischemia, stress score is 6, SDS 6, patient is asymptomatic, probably ischemic segment is due to the occluded right coronary artery Congestive heart failure, chronic left ventricular systolic dysfunction, ischemic cardiomyopathy, resolved, Last echocardiogram done in June 02, 2022 showed EF 55-60%, grade 1 diastolic dysfunction, mild to moderate AR, PA 45-50mmHg. Sinus node dysfunction. Multiple sinus pauses occurred at night while asleep. Asymptomatic. No history of syncope. Continue to monitor DM, management per medical team Hypertension, continue to monitor blood pressure Hyperlipidemia, monitored as outpatient History of GI bleed History of right foot drop Moderate carotid stenosis on the left, mild disease on the right, ultrasound done in October 2020. Continue to monitor OK for discharge from cardiology standpoint. F/u in our office in 4 weeks Supervisory-Addendum Brief Supervisory Addendum Participated in pt care: history, MDM, physical Personally performed: exam, history, MDM Care discussed with: ROSITA Results interpretation: Verified all documentation Notes: Patient was seen and evaluated with Jill, examination performed, management plan was discussed, agree with the current scribed note, I made few changes to the note using Italic font Patient was seen at bedside, sitting comfortably, getting ready for discharge No new complain Still having pain and discomfort Will arrange for follow-up as an outpatient JILL MELO Jun 11, 2022 10:03 LINDA HASSAN MD Jun 11, 2022 13:53
--- NOTE | 2022-06-11 10:40 | Physical Therapy Daily Note ---
PT Daily Note-Current Subjective Patient in bed pre tx, agrees reluctantly to PT, unrated right hip pain. Pain Section J - Health Conditions 1. Rarely or not at all 2. Occasionally 3. Frequently 4. Almost constantly 8. Unable to answer Pain Effect on Sleep: 2 Pain Interference with Therapy: 2 Pain Interference w/Day-to-Day: 2 Appearance Patient in recliner post tx with nurse call, phone, tray, all needs met. Mental Status Patient Orientation: Person, Confused, Mumbles Transfers SCALE: Activities may be completed with or without assistive devices. 3-Sarachorrf-dpzjswm completes the activity by him/herself with no assistance from a helper. 5-Set-up or Clean-up Assistance-helper sets up or cleans up; patient completes activity. [place] assists only prior to or following the activity. 4-Supervision or Touching Assistance-helper provides verbal cues and/or touching/steadying and/or contact guard assistance as patient completes activity. Assistance may be provided throughout the activity or intermittently. 3-Partial/Moderate Assistance-helper does LESS THAN HALF the effort. [place] lifts, holds or supports trunk or limbs, but provides less than half the effort. 2-Substantial/Maximal Assistance-helper does MORE THAN HALF the effort. [place] lifts or holds trunk or limbs and provides more than half the effort. 5-Qjnsvtjdw-tqizkf does ALL the effort. Patient does none of the effort to complete the activity. Or, the assistance of 2 or more helpers is required for the patient to complete the activity. If activity was not attempted, code reason: 7-Patient Refused. 9-Not Applicable-not attempted and the patient did not perform the activity before the current illness, exacerbation or injury. 10-Not Attempted due to Environmental Limitations-(lack of equipment, weather restraints, etc.). 88-Not Attempted due to Medical Conditions or Safety Concerns. Roll Left & Right (QC): 1 Lying to Sitting/Side of Bed(Q: 1 Sit to Stand (QC): 1 Chair/Xof-jl-Tllwn Xfer(QC): 1 Assist of 2 for supine to sit and sit to stand and transfer to recliner. Patient was not able to stand with assist using a walker. Weight Bearing Right Lower Extremity: Right Weight Bearing/Tolerated Left Lower Extremity: Left Full Weight Bearing Exercises Seated Therapy Exercises: Ankle pumps, Long arc quads (AAROM) Seated Reps: 10 Treatments bed mobility and transfers, LE ROM Assessment Current Status: Poor Progress no change in mobility, dependent for transfers, patient barely opened eyes during tx PT Short Term Goals Short Term Goals Time Frame: Jun 14, 2022 Roll Left & Right: 2 Sit to lyin Lying to sitting on side of be: 2 Sit to stand: 2 Chair/xxl-fy-dermf transfer: 2 Toilet transfer: 2 Walk 10 feet: 2 PT Care Home Goals Care Home Goals PT Care Home Goals Time Frame: Jun 28, 2022 Roll Left & Right (QC): 3 Sit to Lying (QC): 3 Lying-Sitting on Side/Bed(QC): 3 Sit to Stand (QC): 3 Chair/Miq-pj-Eeudc Xfer(QC): 3 Toilet Transfer (QC): 3 Walk 10 feet (QC): 3 Walk 50ft with 2 Turns (QC): 3 Walk 150 ft (QC): 3 Walking 10ft on Uneven Surface: 3 PT Plan Problem List Problem List: Activity Tolerance, Functional Strength, Safety, Balance, Gait, Transfer, Bed Mobility, ROM Treatment/Plan Treatment Plan: Continue Plan of Care Treatment Plan: Bed Mobility, Education, Functional Activity Michel, Functional Strength, Gait, Safety, Therapeutic Exercise, Transfers Treatment Duration: Jun 28, 2022 Frequency: 11 times per week Estimated Hrs Per Day: .5 hour per day Patient and/or Family Agrees t: Yes Safety Risks/Education Patient Education: Transfer Techniques, Correct Positioning, Safety Issues Teaching Recipient: Patient Teaching Methods: Demonstration, Discussion Response to Teaching: Reinforcement Needed Time/GCodes Time In: 1000 Time Out: 1013 Total Billed Treatment Time: 13 Total Billed Treatment 1 visit FA CRISTÓBAL JIMÉNEZ PT Jun 11, 2022 10:40
[2022-06-11] MEDS ORDERED: LOSARTAN 25 MG (COZAAR) TAB PO SCH (13:30)
[2022-06-11 14:06] VITALS: BP 161/69
[2022-06-12] MEDS ORDERED: amLODIPine 10 MG (NORVASC) TAB PO SCH (09:00)
== END 2022-06-11 14:06 | DRG 480 ==
LOC: EDUNIT# 08:11 → ER 08:13 → ICU 09:26 → 4TH 06-04 14:56 → ICU 06-06 13:54 → 4TH 06-07 11:56
PROVIDERS: ADMIT Internal Medicine; ATTEND Internal Medicine
PROC: 0QS636Z Reposition Right Upper Femur with Intramedullary Internal Fixation Device, Percutaneous Approach (ICD-10-PCS; principal; 2022-06-03 07:30)
PROC: 0DB Gastrointestinal System, Excision (ICD-10-PCS; 2022-06-06)
PROC: 0DJD8ZZ Inspection of Lower Intestinal Tract, Via Natural or Artificial Opening Endoscopic (ICD-10-PCS; 2022-06-06)
PROC: 0DB48ZX Excision of Esophagogastric Junction, Via Natural or Artificial Opening Endoscopic, Diagnostic (ICD-10-PCS; 2022-06-06 12:18)
DX: S72.141A Displaced intertrochanteric fracture of right femur, initial encounter for closed fracture (principal); E11.00 Type 2 diabetes mellitus with hyperosmolarity without nonketotic hyperglycemic-hyperosmolar coma (NKHHC); E11.10 Type 2 diabetes mellitus with ketoacidosis without coma; G93.41 Metabolic encephalopathy; N17.9 Acute kidney failure, unspecified; I13.0 Hypertensive heart and chronic kidney disease with heart failure and stage 1 through stage 4 chronic kidney disease, or unspecified chronic kidney disease; N18.4 Chronic kidney disease, stage 4 (severe); I50.42 Chronic combined systolic (congestive) and diastolic (congestive) heart failure; D74.9 Methemoglobinemia, unspecified; E87.1 Hypo-osmolality and hyponatremia; E86.0 Dehydration; I25.5 Ischemic cardiomyopathy; E11.22 Type 2 diabetes mellitus with diabetic chronic kidney disease; D64.9 Anemia, unspecified; K29.70 Gastritis, unspecified, without bleeding; J44.9 Chronic obstructive pulmonary disease, unspecified; I35.0 Nonrheumatic aortic (valve) stenosis; E78.2 Mixed hyperlipidemia; I25.10 Atherosclerotic heart disease of native coronary artery without angina pectoris; I49.5 Sick sinus syndrome; E87.5 Hyperkalemia; K21.00 Gastro-esophageal reflux disease with esophagitis, without bleeding; Z79.4 Long term (current) use of insulin; W01.0XXA Fall on same level from slipping, tripping and stumbling without subsequent striking against object, initial encounter; Y92.002 Bathroom of unspecified non-institutional (private) residence as the place of occurrence of the external cause
CPT/HCPCS: 36415; 51702; 70450; 71045; 76000; 80048; 80053; 80061; 80074; 81000; 82010; 82550; 82805; 82947; 83036; 83050; 83735; 84100; 85007; 85025; 85027; 85610; 86850; 86900; 86901; 86920; 87081; 93005; 93306; 94640; 94760; 96365; 96367; 96368; 96375

== ENCOUNTER → 2022-06-18 | Outpatient (CLI) | payer MEDICARE, MEDICAID ==
[~2022-06-18] MED LIST changes: +AMLO-250 PO; +BACL10TA PO; +BISA5TAB20 PO; -BISA5TAB8 PO; +CHOL10007 PO; +LORA-404 PO; +OXC5T PO; +PARO30TA3 PO; +SEMA0.25 SQ
== END ==
LOC: ORTHO 15:08
PROVIDERS: ATTEND Orthopaedic Surgery
DX: Z47.89 Encounter for other orthopedic aftercare (principal)

== ENCOUNTER → 2022-07-22 | Outpatient (CLI) | payer MEDICARE, MEDICAID ==
--- NOTE | 2022-07-22 18:41 | Diagnostic Imaging Report ---
INDICATION: Postop. Right hip pain. FINDINGS: 2 views. The intertrochanteric fracture is repositioned in near anatomical alignment. Gamma nail and dynamic compression screw are present. IMPRESSION: Satisfactory appearing postop fixation of right hip. Dictated by: Dictated on workstation # [id number]
== END ==
LOC: ORTHO 10:03
PROVIDERS: ATTEND Orthopaedic Surgery
DX: Z47.89 Encounter for other orthopedic aftercare (principal); M25.551 Pain in right hip; J44.9 Chronic obstructive pulmonary disease, unspecified; I25.10 Atherosclerotic heart disease of native coronary artery without angina pectoris; I12.9 Hypertensive chronic kidney disease with stage 1 through stage 4 chronic kidney disease, or unspecified chronic kidney disease; N18.30 Chronic kidney disease, stage 3 unspecified; E78.5 Hyperlipidemia, unspecified; E66.9 Obesity, unspecified
CPT/HCPCS: 73502

== ENCOUNTER → 2022-09-02 | Outpatient (CLI) | payer MEDICARE, MEDICAID ==
--- NOTE | 2022-09-02 15:31 | Diagnostic Imaging Report ---
INDICATION: Followup orthopedic assessment, post surgical followup. COMPARISON: 07/22/2022. TECHNIQUE: Two radiographs of the right hip dated 09/02/2022. FINDINGS: A gamma nail is again identified transfixing the previously noted right intertrochanteric femoral fracture. Alignment appears stable. No evidence of hardware complication. Significant persisting fracture lucency remains with potential minimal osseous bridging suggested. No new fracture or dislocation. No destructive osseous process. Mild degenerative changes involving the right hip. Background vascular calcifications. Vascular stent grafts are noted overlying the medial right thigh. Surgical clips are seen within the right inguinal region. IMPRESSION: A gamma nail is again identified transfixing the previously noted right intertrochanteric femoral fracture without evidence of hardware complication. Alignment appears stable. There is minimal, if any, healing noted at this time. No new acute fracture. Dictated by: Dictated on workstation # [id number]
== END ==
LOC: ORTHO 10:16
PROVIDERS: ATTEND Orthopaedic Surgery
DX: Z47.89 Encounter for other orthopedic aftercare (principal)
CPT/HCPCS: 73502

== ENCOUNTER → 2022-10-16 | Outpatient (CLI) | payer MEDICARE, MEDICAID ==
--- NOTE | 2022-10-16 17:42 | Diagnostic Imaging Report ---
INDICATION: Femoral fracture AP and frog-leg views of right hip are obtained with comparison made to study of 09/02/2022. The intratrochanteric fracture line remains visible however there is blurring along the margins indicating incorporation of callus. Intramedullary vasquez and dynamic screw are in stable position. There is no dislocation. Extensive superficial femoral artery stenting is also noted. IMPRESSION: Near complete healing of intertrochanteric fracture with internal fixation. Dictated by: Dictated on workstation # [id number]
== END ==
LOC: ORTHO 14:22
PROVIDERS: ATTEND Orthopaedic Surgery
DX: Z47.89 Encounter for other orthopedic aftercare (principal); S72.141D Displaced intertrochanteric fracture of right femur, subsequent encounter for closed fracture with routine healing; X58.XXXD Exposure to other specified factors, subsequent encounter
CPT/HCPCS: 73502; G0463; 99213

== ENCOUNTER → 2022-10-23 | Outpatient (CLI) | payer MEDICARE, MEDICAID | LOC: WOUNDCARE 09:03 | PROVIDERS: ATTEND Family Medicine | DX: L89.613 Pressure ulcer of right heel, stage 3 (principal); I70.234 Atherosclerosis of native arteries of right leg with ulceration of heel and midfoot; E11.621 Type 2 diabetes mellitus with foot ulcer; E11.65 Type 2 diabetes mellitus with hyperglycemia; I25.10 Atherosclerotic heart disease of native coronary artery without angina pectoris; E11.22 Type 2 diabetes mellitus with diabetic chronic kidney disease; N18.30 Chronic kidney disease, stage 3 unspecified; R29.6 Repeated falls; E66.01 Morbid (severe) obesity due to excess calories; Z68.31 Body mass index [BMI] 31.0-31.9, adult | CPT/HCPCS: 11042; 85652; 86141; 87070; 87077; 87205; G0463; 36415 ==

== ENCOUNTER → 2022-10-29 | Outpatient (CLI) | payer MEDICARE, MEDICAID ==
--- NOTE | 2022-10-29 17:01 | Diagnostic Imaging Report ---
Indication: Wound care ulcer. AP and oblique and lateral views of the right foot are obtained and compared with 08/07/2018. There is generalized demineralization. There is a fracture of the 1st proximal phalanx extending to the interphalangeal joint, this appears to be likely subacute. There are diffuse degenerative changes throughout the interphalangeal joints. There is no overt erosive bony lesion. There are some vascular calcifications. Impression: Subacute fracture of 1st proximal phalanx. Generalized demineralization and diffuse degenerative changes. No overt bony erosion. Dictated by: Dictated on workstation # [id number]
== END ==
LOC: WOUNDCARE 09:29
PROVIDERS: ATTEND Family Medicine
DX: L89.613 Pressure ulcer of right heel, stage 3 (principal); I70.234 Atherosclerosis of native arteries of right leg with ulceration of heel and midfoot; E11.621 Type 2 diabetes mellitus with foot ulcer; E11.65 Type 2 diabetes mellitus with hyperglycemia; I25.10 Atherosclerotic heart disease of native coronary artery without angina pectoris; E11.22 Type 2 diabetes mellitus with diabetic chronic kidney disease; N18.30 Chronic kidney disease, stage 3 unspecified; R29.6 Repeated falls; E66.01 Morbid (severe) obesity due to excess calories; Z68.31 Body mass index [BMI] 31.0-31.9, adult; B95.62 Methicillin resistant Staphylococcus aureus infection as the cause of diseases classified elsewhere; E11.52 Type 2 diabetes mellitus with diabetic peripheral angiopathy with gangrene; I96 Gangrene, not elsewhere classified
CPT/HCPCS: 11042; 73630; G0463

== ENCOUNTER → 2022-11-11 | Outpatient (CLI) | payer MEDICARE, MEDICAID | LOC: WOUNDCARE 10:05 | PROVIDERS: ATTEND Family Medicine | DX: L89.613 Pressure ulcer of right heel, stage 3 (principal); I70.234 Atherosclerosis of native arteries of right leg with ulceration of heel and midfoot; E11.621 Type 2 diabetes mellitus with foot ulcer; E11.65 Type 2 diabetes mellitus with hyperglycemia; I25.10 Atherosclerotic heart disease of native coronary artery without angina pectoris; E11.22 Type 2 diabetes mellitus with diabetic chronic kidney disease; N18.30 Chronic kidney disease, stage 3 unspecified; E66.01 Morbid (severe) obesity due to excess calories; A49.02 Methicillin resistant Staphylococcus aureus infection, unspecified site; B95.2 Enterococcus as the cause of diseases classified elsewhere; E11.52 Type 2 diabetes mellitus with diabetic peripheral angiopathy with gangrene; R29.6 Repeated falls; Z68.31 Body mass index [BMI] 31.0-31.9, adult | CPT/HCPCS: 11042; A6212; G0463 ==

== ENCOUNTER → 2022-11-18 | Outpatient (CLI) | payer MEDICARE, MEDICAID | LOC: WOUNDCARE 09:53 | PROVIDERS: ATTEND Family Medicine | DX: L89.613 Pressure ulcer of right heel, stage 3 (principal); I70.234 Atherosclerosis of native arteries of right leg with ulceration of heel and midfoot; E11.621 Type 2 diabetes mellitus with foot ulcer; E11.65 Type 2 diabetes mellitus with hyperglycemia; I25.10 Atherosclerotic heart disease of native coronary artery without angina pectoris; N18.30 Chronic kidney disease, stage 3 unspecified; R29.6 Repeated falls; E66.01 Morbid (severe) obesity due to excess calories; Z68.31 Body mass index [BMI] 31.0-31.9, adult; B95.2 Enterococcus as the cause of diseases classified elsewhere | CPT/HCPCS: 11042; G0463 ==

== ENCOUNTER → 2022-11-25 | Outpatient (CLI) | payer MEDICARE, MEDICAID ==
[~2022-11-25] MED LIST changes: -INSU100I29 SC; -INSU100I29 SQ; +INSU100I30 SC; +INSU100I30 SQ
== END ==
LOC: WOUNDCARE 09:53
PROVIDERS: ATTEND Family Medicine
DX: I96 Gangrene, not elsewhere classified (principal); I70.234 Atherosclerosis of native arteries of right leg with ulceration of heel and midfoot; L89.613 Pressure ulcer of right heel, stage 3; E11.621 Type 2 diabetes mellitus with foot ulcer; E11.65 Type 2 diabetes mellitus with hyperglycemia; I25.10 Atherosclerotic heart disease of native coronary artery without angina pectoris; N18.30 Chronic kidney disease, stage 3 unspecified; R29.6 Repeated falls; E66.01 Morbid (severe) obesity due to excess calories; Z68.31 Body mass index [BMI] 31.0-31.9, adult
CPT/HCPCS: 11042; G0463

== ENCOUNTER → 2022-12-02 | Outpatient (CLI) | payer MEDICARE, MEDICAID | LOC: WOUNDCARE 09:40 | PROVIDERS: ATTEND Family Medicine | DX: L89.613 Pressure ulcer of right heel, stage 3 (principal); I70.234 Atherosclerosis of native arteries of right leg with ulceration of heel and midfoot; I25.10 Atherosclerotic heart disease of native coronary artery without angina pectoris; E11.621 Type 2 diabetes mellitus with foot ulcer; E11.65 Type 2 diabetes mellitus with hyperglycemia; N39.0 Urinary tract infection, site not specified; R29.6 Repeated falls; E66.01 Morbid (severe) obesity due to excess calories; Z68.31 Body mass index [BMI] 31.0-31.9, adult | CPT/HCPCS: 11042; G0463 ==

== ENCOUNTER → 2022-12-09 | Outpatient (CLI) | payer MEDICARE, MEDICAID | LOC: WOUNDCARE 09:48 | PROVIDERS: ATTEND Family Medicine | DX: L89.613 Pressure ulcer of right heel, stage 3 (principal); I70.234 Atherosclerosis of native arteries of right leg with ulceration of heel and midfoot; E11.621 Type 2 diabetes mellitus with foot ulcer; E11.65 Type 2 diabetes mellitus with hyperglycemia; I25.10 Atherosclerotic heart disease of native coronary artery without angina pectoris; E11.22 Type 2 diabetes mellitus with diabetic chronic kidney disease; N18.30 Chronic kidney disease, stage 3 unspecified; R29.6 Repeated falls; E66.01 Morbid (severe) obesity due to excess calories; Z68.31 Body mass index [BMI] 31.0-31.9, adult | CPT/HCPCS: 11042; G0463 ==

== ENCOUNTER → 2022-12-23 | Outpatient (CLI) | payer MEDICARE, MEDICAID ==
[2022-12-23 16:04] LABS: BASOPHILS # (AUTO) 0.1 10^3/uL (0.0-0.1); BASOPHILS % (AUTO) 1 % (0-10); EOSINOPHILS # (AUTO) 0.3 10^3/uL (0.0-0.3); EOSINOPHILS % (AUTO) 3 % (0-10); HEMATOCRIT 43 % (40-54); HEMOGLOBIN 13.4 g/dL (13.3-17.7); LYMPHOCYTES % (AUTO) 10 % (12-44); MEAN CORPUSCULAR HEMOGLOBIN 27 pg (25-34); MEAN CORPUSCULAR HGB CONC 31 g/dL (32-36); MEAN CORPUSCULAR VOLUME 88 fL (80-99); MEAN PLATELET VOLUME 9.5 fL (9.0-12.2); MONOCYTES # (AUTO) 0.6 10^3/uL (0.0-1.0); MONOCYTES % (AUTO) 6 % (0-12); NEUTROPHILS # (AUTO) 8.3 10^3/uL (1.8-7.8); NEUTROPHILS % (AUTO) 80 % (42-75); PLATELET COUNT 265 10^3/uL (130-400); WHITE BLOOD COUNT 10.4 10^3/uL (4.3-11.0)
[2022-12-23 17:45] LABS: ALBUMIN 4.1 GM/DL (3.2-4.5); BILIRUBIN,TOTAL 0.8 MG/DL (0.1-1.0); CALCIUM 9.2 MG/DL (8.5-10.1); CREATININE SERUM 1.86 MG/DL (0.60-1.30); POTASSIUM 3.8 MMOL/L (3.6-5.0); TOTAL PROTEIN 8.1 GM/DL (6.4-8.2)
== END ==
LOC: WOUNDCARE 10:00
PROVIDERS: ATTEND Family Medicine
DX: E11.621 Type 2 diabetes mellitus with foot ulcer (principal); L89.613 Pressure ulcer of right heel, stage 3; I70.234 Atherosclerosis of native arteries of right leg with ulceration of heel and midfoot; E11.65 Type 2 diabetes mellitus with hyperglycemia; I25.10 Atherosclerotic heart disease of native coronary artery without angina pectoris; E11.22 Type 2 diabetes mellitus with diabetic chronic kidney disease; N18.30 Chronic kidney disease, stage 3 unspecified; E66.01 Morbid (severe) obesity due to excess calories; Z68.31 Body mass index [BMI] 31.0-31.9, adult; R29.6 Repeated falls; E11.52 Type 2 diabetes mellitus with diabetic peripheral angiopathy with gangrene; I96 Gangrene, not elsewhere classified
CPT/HCPCS: 11042; 80053; 83036; 85025; G0463; 36415

== ENCOUNTER → 2022-12-25 | Outpatient (CLI) | payer MEDICARE, MEDICAID ==
--- NOTE | 2022-12-25 14:12 | Diagnostic Imaging Report ---
HIP, RIGHT, 2 VIEWS INDICATION: Right hip fracture. COMPARISON: 10/16/2022 TECHNIQUE: 2 views of right hip FINDINGS: Status post Gamma nail fixation of intertrochanteric fracture. The fracture remains incompletely fused, but there is no significant subsidence. No features of avascular necrosis of femoral head. No new fracture. Arterial stents are again noted in the medial aspect of the thigh. IMPRESSION: Stable alignment position of intertrochanteric fracture status post gamma nail fixation. Dictated by: Dictated on workstation # [id number]
== END ==
LOC: ORTHO 09:36
PROVIDERS: ATTEND Orthopaedic Surgery
DX: I10 Essential (primary) hypertension (principal); E78.5 Hyperlipidemia, unspecified; R73.9 Hyperglycemia, unspecified; E66.9 Obesity, unspecified; Z87.81 Personal history of (healed) traumatic fracture
CPT/HCPCS: 73502; G0463; 99213

== ENCOUNTER → 2022-12-30 | Outpatient (CLI) | payer MEDICARE, MEDICAID | LOC: WOUNDCARE 09:41 | PROVIDERS: ATTEND Family Medicine | DX: L89.613 Pressure ulcer of right heel, stage 3 (principal); I70.234 Atherosclerosis of native arteries of right leg with ulceration of heel and midfoot; E11.621 Type 2 diabetes mellitus with foot ulcer; E11.65 Type 2 diabetes mellitus with hyperglycemia; I25.10 Atherosclerotic heart disease of native coronary artery without angina pectoris; E11.22 Type 2 diabetes mellitus with diabetic chronic kidney disease; N18.30 Chronic kidney disease, stage 3 unspecified; R29.6 Repeated falls; E66.01 Morbid (severe) obesity due to excess calories; Z68.31 Body mass index [BMI] 31.0-31.9, adult | CPT/HCPCS: A6212; G0463; 99212 ==